=== PATIENT | male | born 1995 | race Two or more races ===

== ENCOUNTER 2021-04-24 03:39 | Emergency (ER) | payer MEDICARE, MEDICAID, SELFPAY ==
[2021-04-24 03:47] VITALS: BP 126/92; BP 150/67; PULSE 70; PULSE 97; RESP 16; TEMP 37.2; O2SAT 96; BMI 35.4
[2021-04-24 04:57] VITALS: BP 133/74; PULSE 88; RESP 18; O2SAT 96
[2021-04-24 05:09] LABS: Ethanol < 10 mg/dL
--- NOTE | 2021-04-24 05:15 | ED_ITS ---
HPI - General Adult General Chief complaint: General Medical Stated complaint: CRISIS,? PARANOIA/SCARED TO BE AT APARTMENT Time Seen by Provider: 04/24/21 04:19 Source: patient Mode of arrival: EMS History of Present Illness HPI narrative: This is a 25-year-old male who is brought in by EMS when he called due to being fearful of being in his apartment. He keeps repeating the fact that the apartment is his place and that he owns it and has owned of for 3 years. He states that when he gets to the front door he is the only person who has the keys. He denies being suicidal or homicidal, denies hearing voices. In addition, he denies thinking that people are watching him with Andrew's, but states that his apartment is his place but he is afraid to be there. Related Data Home Medications Medication Instructions Recorded Confirmed amitriptyline 1 tab PO BEDTIME PRN 04/24/21 04/24/21 risperidone 1 tab PO BEDTIME 04/24/21 04/24/21 Allergies Allergy/AdvReac Type Severity Reaction Status Date / Time No Known Allergies Allergy Verified 04/24/21 04:55 [No Known Allergies*] Review of Systems Review of Systems: Pertinent positives and negatives as stated in HPI 10 point review of system comes is otherwise negative PMFSH Past Medical History Source: nursing notes reviewed Social History Social History Alcohol intake: current Alcohol intake frequency: a few times a month Patient Tobacco Use Status: Former Tobacco user Use of substances other than those prescribed or required for medical reasons: Yes Substance Use Type: Marijuana Advance Directives: No Advance Directives Information Provided: No Physical Exam Vital Signs: Vital Signs: Last Vital Signs Temp 99.0 F 04/24/21 03:47 Pulse 88 04/24/21 04:57 Resp 18 04/24/21 04:57 BP 133/74 04/24/21 04:57 Pulse Ox 96 04/24/21 04:57 Body Mass Index 35.4 VITAL SIGNS: Reviewed. GENERAL: Well developed, well nourished, in no acute distress. HEAD: Normocephalic/atraumatic EYES: PERRLA, EOMI OROPHARYNX: no oral lesions noted, posterior pharynx clear LUNGS: Normal breath sounds. No adventitious sounds or accessory muscle use. SpO2<96> CARDIOVASCULAR: Regular rate and rhythm without noted murmurs ABDOMEN: Soft, non-tender, non-distended with bowel sounds. SKIN: Inspection of the skin reveals no rashes NEUROLOGIC: Alert and oriented x 4. Strength and sensation to light touch were grossly intact x 4. PSYCH: Anxious,?Psychosis Course Course Course Narrative: This is a 25-year-old male with history and clinical presentation suggestive of possible mild psychosis. He continues to have circular discussions by repeating this statement of who owns the place and who h as the keys and uses the word ?they? but then when asked about monitoring devices such as camera is a recording device is denies thinking that these are in his home. He denies being suicidal or homicidal and will pursue further evaluation by the care team. Signed out to Dr Go Reevaluation(s) Reevaluation #1: Patient placed in physician observation because the patient needed more time to be screen by the care team. At the time observation was started the patient's vital signs were stable, patient is alert and oriented, neuro: Nonfocal, CV RRR, lungs clear Time: 07:34 Medical Decision Making Lab Data Labs: Lab Results 04/24/21 04/24/21 Range/Units 04:38 05:00 Urine Opiates Screen Not Detected (Not Detect) Ur Barbiturates Screen Not Detected (Not Detect) Ur Phencyclidine Scrn Not Detected (Not Detect) Ur Amphetamines Screen Not Detected (Not Detect) U Benzodiazepines Scrn Not Detected (Not Detect) Urine Cocaine Screen Not Detected (Not Detect) U Marijuana (THC) Screen Not Detected (Not Detect) Ethyl Alcohol < 10 mg/dL Discharge Plan Discharge Prescriptions: No Action risperidone 2 mg tablet 1 tab PO BEDTIME RF: 0 amitriptyline 10 mg tablet 1 tab PO BEDTIME PRN (Reason: insomnia) RF: 0
--- NOTE | 2021-04-24 05:17 | PC.NURSE ---
Pt transferred from 22H to room 21. Pt aaox4, calm and cooperative and reports feeling unsafe in his apartment despite denying that anyone hurts him or threatens to hurt him. Pt denies SI/HI. It is unclear to this RN if pt is having AH as when this RN asks pt if he is hearing voices, he states Yeah, loud voices that are telling me things. When this RN asks what the voices are hearing, pt states No, I don't hear voices. Pt does not appear to be responding to internal stimuli at this time. This RN did N intake over the phone with Terri Roman, [facility]. Per Terri, pt may not be seen until next [facility] shift which begins at 0700 this AM and [facility] worker may not arrive to [facility] until ~[id number] this AM. Per Terri, this RN to contact her in one hour's time if no update about ETA has otherwise been provided by [facility]. Terri's number is [phone]
[2021-04-24 05:20] LABS: Amphetamine Screen Urine Not Detected (Not Detect); Barbiturates, Urine Not Detected (Not Detect); Benzodiazepines Screen Urine Not Detected (Not Detect); Cannabinoid Screen Urine Not Detected (Not Detect); Cocaine Screen Urine Not Detected (Not Detect); Opiate Screen Urine Not Detected (Not Detect); Phencyclidine Screen Urine Not Detected (Not Detect)
--- NOTE | 2021-04-24 07:14 | PC.NURSE ---
pt report taken from kenney kay pt here for disturbances at pts apartments, sts sounds like things are going on but vague when pressed further for details about what is disturbing him at home. pt denies si/hi/avh, bhn has been faxed and called per previous shift rn. tox screen negative. pt appears to be sitting upright in stretcher watching tv, no apparent distress. wctm.
[2021-04-24 08:09] VITALS: BP 141/81; PULSE 92; RESP 17; TEMP 36.8; O2SAT 95
[2021-04-24 08:10] LABS: COVID-19 Test Negative (Negative)
[2021-04-24 08:16] LABS: Amphetamine Screen Urine Not Detected (Not Detect); Barbiturates, Urine Not Detected (Not Detect); Benzodiazepines Screen Urine Not Detected (Not Detect); Cannabinoid Screen Urine Not Detected (Not Detect); Cocaine Screen Urine Not Detected (Not Detect); Opiate Screen Urine Not Detected (Not Detect); Phencyclidine Screen Urine Not Detected (Not Detect)
--- NOTE | 2021-04-24 08:52 | PC.NURSE ---
pt evaluated by care instrument repairer steam plant, pt asking pct if h can speak w the nurse eyeball to eyeball about his medications. when this rn in to speak w pt regarding medications, pt restating the reason he is here. pt allowed to vent feelings, when asked if he had an questions about his medications, pt denies any questions regarding medications, asking if he can buy a sandwich . pt given finger foods, tolerating po w/o issue. wctm.
--- NOTE | 2021-04-24 09:11 | MHC.CARE ---
CARE Team met with Pt to provide support. Pt reports being nervous regarding being in his apartment. Pt denied feeling suicidal or homicidal. CARE Team spoke with Pts cousin Judy ([phone]), she reported she has no safety concerns regarding Pt returning home. She reports Pt is diagnosed with schizophrenia and has support through [facility]. Due to Pts diagnosis periodically he feels his neighbors are talking about him which she believes what happened yesterday. Pt reports she does not feel he is in crisis or needs further intervention. CARE Team, Judy and Pt made a plan for Pt to discharge to his apartment, collect some of his belongings and stay with his aunt or uncle for the next few days for a break . CARE Team encouraged Pt and his cousin to discuss planned respites in the further if Pt felt he needed a break . Pt provided with [facility] Crisis number if needed.
== END 2021-04-24 09:06 | disposition home or self-care (01) ==
PROVIDERS: Emergency Medicine; Emergency Provider Student in an Organized Health Care Education/Training Program
DX: F41.9 Anxiety disorder, unspecified (principal); F20.9 Schizophrenia, unspecified; Z20.822 Contact with and (suspected) exposure to COVID-19; Z79.899 Other long term (current) drug therapy
CPT/HCPCS: 36415; 80307; 82077; 87635; 99284; 99285

== ENCOUNTER 2021-04-25 01:47 | Emergency (ER) | payer MEDICARE, MEDICAID, SELFPAY ==
--- NOTE | 2021-04-25 | ECG_ITS ---
Test Reason : CHEST PAIN Blood Pressure : / mmHG Vent. Rate : 083 BPM Atrial Rate : 083 BPM P-R Int : 160 ms QRS Dur : 084 ms QT Int : 386 ms P-R-T Axes : 026 036 029 degrees QTc Int : 453 ms Normal sinus rhythm Normal ECG When compared with ECG of 21-JAN-2017 22:34, No significant change was found Referred By: Generic ED Physician Electronically Signed By:Fernandez Jackson
[2021-04-25 02:02] VITALS: BP 122/69; PULSE 103; RESP 20; TEMP 36.8; O2SAT 95; BMI 35.2
[2021-04-25 03:59] VITALS: BP 130/79; PULSE 84; RESP 21; TEMP 37.1; O2SAT 97; BMI 30.4
--- NOTE | 2021-04-25 04:52 | ED.ASTHMA ---
HPI - Asthma General Chief Complaint: Upper Respiratory Symptoms Stated Complaint: chest pain Time Seen by Provider: 04/25/21 04:51 Source: patient Mode of arrival: ambulatory History of Present Illness HPI Narrative: 25-year-old male who presents with complaints of mild shortness of breath and states that he ran out of his albuterol inhaler. He denies any associated fever, chills, chest pain/palpitations, GI symptoms or symptoms. Related Data Home Medications Medication Instructions Recorded Confirmed amitriptyline 1 tab PO BEDTIME PRN 04/24/21 04/24/21 risperidone 1 tab PO BEDTIME 04/24/21 04/24/21 Allergies Allergy/AdvReac Type Severity Reaction Status Date / Time No Known Allergies Allergy Verified 04/24/21 04:55 [No Known Allergies*] Review of Systems Review of Systems: Pertinent positives and negatives as stated in HPI 10 point review of systems is otherwise negative. PMFSH Past Medical History Source: nursing notes reviewed Social History Social History Alcohol intake: current Alcohol intake frequency: a few times a month Patient Tobacco Use Status: Former Tobacco user Substance Use Type: Marijuana Advance Directives: No Physical Exam Vital Signs: Vital Signs: Last Vital Signs Temp 98.8 F 04/25/21 03:59 Pulse 77 04/25/21 05:33 Resp 13 04/25/21 05:33 BP 130/79 04/25/21 05:33 Pulse Ox 95 04/25/21 05:33 Body Mass Index 30.4 VITAL SIGNS: Reviewed. GENERAL: Well developed, well nourished, in no acute distress. HEAD: Normocephalic/atraumatic EYES: PERRLA, EOMI EARS: Ext canals without abnormality, TMs non-bulging and non-erythematous NOSE: Nares patent bilateral OROPHARYNX: no oral lesions noted, posterior pharynx clear LUNGS: No tachypnea, no increased work of breathing, very mild expiratory wheeze. SpO2<97> CARDIOVASCULAR: Regular rate and rhythm without noted murmurs ABDOMEN: Soft, non-tender, non-distended with bowel sounds. NEUROLOGIC: Alert and oriented x 4. Course Course Course Narrative: 25-year-old male with history and clinical presentation consistent asthma and minimal exacerbation. Patient will be treated with albuterol in emergency room. On re-evaluation patient is feeling much better after having had the albuterol treatment and no acute findings noted on EKG. He was discharged home in stable condition. MDM - Asthma ECG Data Attestation: I personally reviewed and interpreted this ECG as follows: Prior ECG tracings: available for review (01/21/2017) Interpretation: Normal sinus rhythm, HR-83, no evidence of acute ischemia, IL/QRS/QTC is within normal limits. Discharge Plan Discharge Clinical Impression: Asthma Patient Disposition: Home, Self-Care Instructions: Asthma (ED), Albuterol (By breathing) Additional Instructions: Follow-up with your primary care provider in the next 2-3 days for re-evaluation. Return to the ER for any acute worsening of symptoms. Prescriptions: No Action risperidone 2 mg tablet 1 tab PO BEDTIME RF: 0 amitriptyline 10 mg tablet 1 tab PO BEDTIME PRN (Reason: insomnia) RF: 0 Referrals: Physician,Unknown [Primary Care Provider] - 2 days Print Language: Armenian
[2021-04-25] MEDS: Albuterol Sulfate 90 MCG 8 GM INHALER 4 PUFF INHALE (05:03)
[2021-04-25 05:33] VITALS: BP 130/79; PULSE 77; RESP 13; O2SAT 95
[2021-04-25 06:00] VITALS: BP 124/82; PULSE 87; RESP 18; O2SAT 96
== END 2021-04-25 06:05 | disposition home or self-care (01) ==
PROVIDERS: Emergency Provider Student in an Organized Health Care Education/Training Program
DX: J45.909 Unspecified asthma, uncomplicated (principal)
CPT/HCPCS: 93005; 99284

== ENCOUNTER 2021-05-01 22:43 | Inpatient (IN) | payer MEDICARE, MEDICAID, SELFPAY ==
[2021-05-01 22:49] VITALS: BP 143/74; PULSE 131; RESP 20; TEMP 36.7; O2SAT 95; BMI 34.9
[2021-05-02 00:07] LABS: COVID-19 Test Negative (Negative)
[2021-05-02 00:13] LABS: Amphetamine Screen Urine Not Detected (Not Detect); Barbiturates, Urine Not Detected (Not Detect); Benzodiazepines Screen Urine Not Detected (Not Detect); Cannabinoid Screen Urine Not Detected (Not Detect); Cocaine Screen Urine Not Detected (Not Detect); Opiate Screen Urine Not Detected (Not Detect); Phencyclidine Screen Urine Not Detected (Not Detect)
[2021-05-02] MEDS: Ibuprofen 600 MG TABLET PO (01:15)
[2021-05-02] MEDS: risperiDONE 2 MG TABLET PO ×2 (01:15→22:34)
[2021-05-02] MEDS: Amitriptyline HCl 10 MG TABLET PO (01:15)
--- NOTE | 2021-05-02 01:20 | ED.PSYCH ---
HPI - Psych General Chief Complaint: Psychiatric Symptoms Stated Complaint: DEPRESSION, HEARING VOICES Time Seen by Provider: 05/01/21 23:44 Source: patient Mode of arrival: ambulatory Limitations: no limitations History of Present Illness HPI Narrative: patient is a 25-year-old male with an unclear past medical history, on amitriptyline an risperidone, complaining of hearing voices. Patient states this started approximately 3 months ago, he states he takes his medications every day each morning and each evening. He states he met a man of few months ago outside of his apartment and is this man's voice that he hears in his head, talking gibberish. he has not seen the man since that day. 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 He denies any thoughts of hurting himself or anyone else. He states he just wants the voices to stop. He has no physical complaints. Related Data Home Medications Medication Instructions Recorded Confirmed amitriptyline 1 tab PO BEDTIME PRN 04/24/21 05/02/21 risperidone 1 tab PO BEDTIME 04/24/21 05/02/21 Allergies Allergy/AdvReac Type Severity Reaction Status Date / Time No Known Allergies Allergy Verified 05/01/21 22:49 [No Known Allergies*] Review of Systems Review of Systems: Yes all other systems are reviewed and are negative [facility] Social History Social History Alcohol intake: current Alcohol intake frequency: a few times a month Patient Tobacco Use Status: Former Tobacco user Substance Use Type: Marijuana Advance Directives: No Advance Directives Information Provided: No Physical Exam Vital Signs: Vital Signs: Last Vital Signs Temp 98.0 F 05/01/21 22:49 Pulse 131 H 05/01/21 22:49 Resp 20 05/01/21 22:49 BP 143/74 H 05/01/21 22:49 Pulse Ox 95 05/01/21 22:49 Body Mass Index 34.9 Const: General: cooperative, healthy appearing, comfortable and no acute distress Nutritional Appearance: average body habitus Orientation/consciousness: patient oriented x3 Limitations: no limitations HENMT: Head: Yes normal to inspection, Yes No palpable skull fracture present, Yes normocephalic and Yes atraumatic Ears: hearing grossly normal bilaterally General nose exam: Normal external nose present Face and sinus: Yes normal facial exam Eyes: General: appearance normal, both eyes and all related structures Resp: Effort & Inspection: normal respiratory effort and able to speak in complete sentences Auscultation: clear to auscultation bilaterally Cardio: Rate: tachycardic Rhythm: regular rhythm Heart sounds: normal S1 and S2 GI: Inspection: Yes obesity Skin: General skin exam: no rashes or lesions noted Neuro: General: patient oriented x3 Psych: Appearance: well kempt Speech and movement: Normal speech and movement present Affect: Anxious affect present Attitude: cooperative Thought content: suicidality, no homicidality and Hallucination(s) present auditory Insight: Fair insight present (Psych) Judgement: Fair judgement present (Psych) Course Course Course Narrative: patient is a 25-year-old male with an unclear past medical history, on amitriptyline an risperidone, complaining of hearing voices. patient likely needs a medication adjustment, will put in [facility] referral to do so. patient has likely tachycardic and hypertensive. Will have vital signs monitored regularly, patient declined Ativan and said he was not feeling anxious. Reevaluation(s) Reevaluation #1: sign out to Dr Martin Time: 02:00 [facility] - Psych Lab Data Labs: Lab Results 05/01/21 05/01/21 Range/Units 23:37 23:38 Urine Opiates Screen Not Detected (Not Detect) Ur Barbiturates Screen Not Detected (Not Detect) Ur Phencyclidine Scrn Not Detected (Not Detect) Ur Amphetamines Screen Not Detected (Not Detect) U Benzodiazepines Scrn Not Detected (Not Detect) Urine Cocaine Screen Not Detected (Not Detect) U Marijuana (THC) Screen Not Detected (Not Detect) COVID-19 (TUSHAR) Negative (Negative) COVID-19 Clin Com See Note Discharge Plan Discharge Clinical Impression: Continuous auditory hallucinations Prescriptions: No Action risperidone 2 mg tablet 1 tab PO BEDTIME RF: 0 amitriptyline 10 mg tablet 1 tab PO BEDTIME PRN (Reason: insomnia) RF: 0
--- NOTE | 2021-05-02 01:55 | PC.NURSE ---
Patient compliant with HS PO medication, patient is mildly disoriented, N referral completed via smart-sheet, called and spoke with [facility] intake staff Terri confirmed receipt of referral, patient will bee seeing in the morning, will continue to monitor.
--- NOTE | 2021-05-02 06:13 | PC.NURSE ---
Patient was up most part of the night, was sleeping at one point of time but was woken up by unit's commotion, patient finally went to sleep at 0500, currently appears sleeping, no distress observed/reported, patient will be seeing by N in the morning, will continue to monitor.
[2021-05-02 07:47] VITALS: BP 129/78; PULSE 96; RESP 18; TEMP 36.2; O2SAT 97
--- NOTE | 2021-05-02 11:19 | PC.NURSE ---
Report received. Pt resting in bed at current, no complaints at this time, calm.
[2021-05-02 16:34] VITALS: BP 112/72; PULSE 88; RESP 18; TEMP 36.8; O2SAT 98
[2021-05-02 17:07] VITALS: BP 112/72; PULSE 88; RESP 18; TEMP 36.8; O2SAT 98
--- NOTE | 2021-05-02 17:43 | PC.NURSE ---
Nursing admission note: 25 year old BiLingual Ukrainian/Pashto speaking male, DX: Unspecified Schizophrenia spectrum and other psychotic disorder, Unspecified depressive disorder. Patient easily engaged, calm and cooperative with admission process. Patient signed conditional voluntary for admission. Patient presents with good eye contact, good attn to ADL's, showered shortly following admission. Affect is blunted. Thoughts are tangential and disorganized. Focused on neighbors that may do something . Patient called EMS yesterday evening due to AH. Reports he was hearing voices . Denies CAH. Reports feeling like something is going to happen , and believes his neighbors want to do something . Patient presents as paranoid, appears preoccupied. Denies SI/HI plan or intent. Speech is mumbled at times. Reports medication compliance, denies drug use, minimal alcohol use. Reports history of asthma, denies acute medical problems. NKDA. Patient has limited supports, however finds his aunt and cousin supportive. Patient with one previous in patient admission, suicide attempt in 2017 (per crisis eval). Patient oriented to unit, placed on unit safety checks, signed JANET. See crisis eval/nursing admission assessment for further details.
[2021-05-02 21:00] VITALS: BP 132/90; PULSE 97; TEMP 36.7; O2SAT 97
[2021-05-03] VITALS (8 sets, daily range): BP systolic 117–141; BP diastolic 65–90; PULSE 77–110; RESP 16–18; TEMP 36.5–36.8; O2SAT 97–99
[2021-05-03 07:58] LABS: Cholesterol 184 mg/dL; HDL Cholesterol 35 mg/dL; Triglycerides 680 mg/dL
[2021-05-03 08:10] LABS: Estimated Average Glucose 108 mg/dL; Hemoglobin A1c % 5.4 %
[2021-05-03 08:33] LABS: Vitamin B12 749 pg/mL (200-900)
[2021-05-03 08:38] LABS: Free T4 (Free Thyroxine) 1.02 ng/dL (0.71-1.85); Thyroid Stimulating Hormone 1.73 uIU/mL (0.32-4.0)
--- NOTE | 2021-05-03 11:01 | P.HPPS_ITS ---
HPI Chief Complaint: SI Sources of Information: patient interviewed, chart reviewed and crisis/core team assessment reviewed HPI Subjective Notes: Conditional Voluntary Narrative: Mr. Morrison is a 25 year-old male with hx of schizophrenia. He called 911 and was brought via EMS to [facility] ED due to increase anxious mood, AH telling him that neighbors are listening to his conversations and are after him. He reported something very bad is going to happen to me. He denied SI/HI. In the ED, his utox was negative. On the unit, Mr. Morrison is pleasant but guarded. He reports he want a better life. When asked what is preventing him from having a better life, pt states that he has always been a good person, a now feels neighbors are taking advantage of this. He reports that neighbors can hear his conversations, that auditory hallucinations have warned him that something bad will happen to him. He does note that his neighbors have never made any threats to his face. He reports feeling very anxious during the day. He reports fair sleep. He continues to report suicidal or homicidal ideation but paranoid delusions and hallucinations are torturing him. He reports at home taking medications as prescribed. He is currently on risperidone 2mg po qhs. Past Psychiatric History: Inpatient: 2017 M5 OP: [facility] Dr. Carmona Suicide attempts: he denies Past trials: risperidone, pt does not remember other meds he has been on. Medical Evaluation Reviewed: Yes PMF Family History: Both parents with substance use. Social History: Pt raised by extended family. Not close to bio mother or father. He was born in [place], in [place] for several years. He does have cousin and aunt close to him. Not working, on SSI as primary source of income. Substance History: Pt denies. Trauma History: Pt identifies not growing up with bio parents as traumatic. Diagnostics Vital Signs (24Hr): Vital Signs - 24 hr 05/02/21 16:34 05/02/21 17:07 05/02/21 21:00 Temperature 98.2 F 98.2 F 98.1 F Pulse Rate 88 88 97 Respiratory Rate 18 18 Blood Pressure 112/72 112/72 132/90 H Pulse Oximetry 98 98 97 05/03/21 00:00 05/03/21 06:00 05/03/21 08:00 Temperature 98.1 F 98.3 F Pulse Rate 94 110 H 88 Respiratory Rate 16 Blood Pressure 134/90 H 139/85 124/72 Pulse Oximetry 98 97 05/03/21 09:56 Temperature 98.3 F Pulse Rate 88 Respiratory Rate 16 Blood Pressure 124/72 Pulse Oximetry 97 Body Mass Index 34.9 Labs Labs: Laboratory Results - last 48 hr 05/01/21 05/01/21 05/03/21 23:37 23:38 07:18 Estimat Average Glucose 108 Hemoglobin A1c % 5.4 Triglycerides Cholesterol LDL Cholesterol, Calc HDL Cholesterol Vitamin B12 Folate TSH Free T4 Urine Opiates Screen Not Detected Ur Barbiturates Screen Not Detected Ur Phencyclidine Scrn Not Detected Ur Amphetamines Screen Not Detected U Benzodiazepines Scrn Not Detected Urine Cocaine Screen Not Detected U Marijuana (THC) Screen Not Detected COVID-19 (TUSHAR) Negative COVID-19 TMS Com See Note 05/03/21 05/03/21 07:18 07:18 Estimat Average Glucose Hemoglobin A1c % Triglycerides 680 Cholesterol 184 LDL Cholesterol, Calc TNP HDL Cholesterol 35 Vitamin B12 749 Folate 11.0 TSH 1.73 Free T4 1.02 Urine Opiates Screen Ur Barbiturates Screen Ur Phencyclidine Scrn Ur Amphetamines Screen U Benzodiazepines Scrn Urine Cocaine Screen U Marijuana (THC) Screen COVID-19 (TUSHAR) COVID-19 Clin Com Meds/Allergies Meds Home Medications Acetaminophen (Acetaminophen 325 Mg Tablet) 650 mg PO Q6H PRN PRN Reason: Headache/Pain Mild Scale (1-3) Al Hydroxide/Mg Hydroxide (Magnesium Hydrox/Alum Hydrox 30 Ml Oral.Susp) 30 ml PO Q6H PRN PRN Reason: Heartburn/Nausea Clonazepam (Clonazepam 0.5 Mg Tablet) 0.5 mg PO BID JOE Last Admin: 05/04/21 08:17 Dose: Not Given Documented by: Haloperidol (Haloperidol 5 Mg Tablet) 5 mg PO Q6H PRN PRN Reason: agitation/psychosis Hydroxyzine HCl (Hydroxyzine Hcl 25 Mg Tablet) 25 mg PO BEDTIME PRN PRN Reason: Anxiety Lorazepam (Lorazepam 0.5 Mg Tablet) 0.5 mg PO Q4H PRN PRN Reason: Anxiety Magnesium Hydroxide (Milk Of Magnesia 30 Ml Oral.Susp) 30 ml PO DAILY PRN PRN Reason: Constipation Nicotine Polacrilex (Nicotine Polacrilex 2 Mg Gum) 4 mg BUCCAL Q2H PRN PRN Reason: Nicotine Cravings Pharmacy Consult (Consult Rx Perform Med Rec) 1 each MISCELLANE ONCE PRN PRN Reason: Consult order Risperidone (Risperidone 2 Mg Tablet) 2 mg PO BID [facility] Last Admin: 05/04/21 08:17 Dose: 2 mg Documented by: Trazodone HCl (Trazodone Hcl 50 Mg Tablet) 50 mg PO BEDTIME PRN PRN Reason: Insomnia Allergies Allergies Allergy/AdvReac Type Severity Reaction Status Date / Time No Known Allergies Allergy Verified 05/01/21 22:49 [No Known Allergies*] Mental Status Exam Mental Status Exam Narrative: Appearance: casually groomed, fair hygiene, in NAD Behavior: limited eye contact, cooperative but suspicious and guarded Psychomotor: no agitation or retardation noted Speech: clear, normal rate/rhythm/volume, spontaneous TP: tangential TC: paranoid towards neighbors, staff in unit, suspicious about medications Mood: anxious Affect:congruent, constricted in range. SI:denies HI:denies AH/VH:AH telling him terrible things will happen to him, denies CAH Delusions:paranoid delusions. Insight/judgment:poor x 2. Memory/cog: alert, oriented x 3. Assessment & Plan Assessment & Plan (1) Schizophrenia, paranoid, chronic with acute exacerbation: Status: Acute Code(s): F20.0 - Paranoid schizophrenia Assessment and Plan: 1. Increase risperidone to 2mg po BID 2. Obtain collateral 3. Coordinate aftercare planning Reason for continued inpatient stay Substantial Risk for: inability to function
[2021-05-03] MEDS: HaloperidoL 5 MG TABLET PO (14:28)
[2021-05-03] MEDS: risperiDONE 2 MG TABLET PO (22:50)
[2021-05-04] MEDS: risperiDONE 2 MG TABLET PO ×2 (08:17→22:22)
[2021-05-04 08:28] VITALS: BP 139/99; PULSE 110; RESP 18; TEMP 36.8; O2SAT 97
--- NOTE | 2021-05-04 15:45 | P.PNPSI_ITS ---
Subjective Subjective Date of Service: 05/04/21 Reason For Visit: SI Subjective Notes: Conditional Voluntary Interim History: Pt continues to endorse AH, telling him that neighbors will hurt him. He is somewhat suspicious at staff in unit and about medications. he d enies SI/HI. He reports sleeping and eating well. He reports feeling tired with medications, but only had increased dose once, so encourage to continue taking it. No behavioral concerns. Medication Compliance: Yes Side effects from medications: No Attending Groups: Intermittent Review of Systems Review of Systems Yes all other systems are reviewed and are negative Cardiovascular: Denies chest pain, Denies Epigastric Pain, Denies rapid heart rate, Denies lightheadedness and Denies dyspnea Respiratory: Denies dyspnea Gastrointestinal: Denies constipation, Denies GI cramping and Denies diarrhea Mental Status Exam Mental Status Exam Narrative: Appearance: casually groomed, fair hygiene, in NAD Behavior: limited eye contact, cooperative but suspicious and guarded Psychomotor: no agitation or retardation noted Speech: clear, normal rate/rhythm/volume, spontaneous TP: tangential TC: paranoid towards neighbors, staff in unit, suspicious about medications Mood: anxious Affect:congruent, constricted in range. SI:denies HI:denies AH/VH:AH telling him terrible things will happen to him, denies CAH Delusions:paranoid delusions. Insight/judgment:poor x 2. Memory/cog: alert, oriented x 3. Diagnostics Vital Signs (24Hr): Vital Signs - 24 hr 05/03/21 16:00 05/03/21 20:48 05/03/21 23:02 Temperature 97.7 F 98 F Pulse Rate 97 88 77 Respiratory Rate 18 Blood Pressure 117/67 141/65 H 127/74 Pulse Oximetry 97 99 05/04/21 08:28 Temperature 98.2 F Pulse Rate 110 H Respiratory Rate 18 Blood Pressure 139/99 H Pulse Oximetry 97 Body Mass Index 34.9 Labs Labs: Laboratory Results - last 48 hr 05/03/21 05/03/21 05/03/21 07:18 07:18 07:18 Estimat Average Glucose 108 Hemoglobin A1c % 5.4 Triglycerides 680 Cholesterol 184 LDL Cholesterol, Calc TNP HDL Cholesterol 35 Vitamin B12 749 Folate 11.0 TSH 1.73 Free T4 1.02 Medications Medications Current Medications Generic Name Dose Route Start Last Admin Trade Name Freq PRN Reason Stop Dose Admin Acetaminophen 650 mg 05/02/21 13:57 Acetaminophen 325 Mg Tablet PO Q6H PRN Headache/Pain Mild Scale (1-3) Al Hydroxide/Mg Hydroxide 30 ml 05/02/21 13:57 Magnesium Hydrox/Alum Hydrox 30 Ml Oral.Susp PO Q6H PRN Heartburn/Nausea Clonazepam 0.5 mg 05/03/21 21:00 05/04/21 08:17 Clonazepam 0.5 Mg Tablet PO Not Given BID JOE Haloperidol 5 mg 05/03/21 17:03 Haloperidol 5 Mg Tablet PO Q6H PRN agitation/psychosis Hydroxyzine HCl 25 mg 05/02/21 13:57 Hydroxyzine Hcl 25 Mg Tablet PO BEDTIME PRN Anxiety Lorazepam 0.5 mg 05/03/21 17:04 Lorazepam 0.5 Mg Tablet PO Q4H PRN Anxiety Magnesium Hydroxide 30 ml 05/02/21 13:57 Milk Of Magnesia 30 Ml Oral.Susp PO DAILY PRN Constipation Nicotine Polacrilex 4 mg 05/02/21 13:57 Nicotine Polacrilex 2 Mg Gum BUCCAL Q2H PRN Nicotine Cravings Pharmacy Consult 1 each 05/02/21 00:46 Consult Rx Perform Med Rec MISCELLANE ONCE PRN Consult order Risperidone 2 mg 05/03/21 21:00 05/04/21 08:17 Risperidone 2 Mg Tablet PO 2 mg BID JOE Administration Trazodone HCl 50 mg 05/02/21 13:57 Trazodone Hcl 50 Mg Tablet PO BEDTIME PRN Insomnia Allergies Allergies Allergy/AdvReac Type Severity Reaction Status Date / Time No Known Allergies Allergy Verified 05/01/21 22:49 [No Known Allergies*] Assessment & Plan Assessment & Plan (1) Schizophrenia, paranoid, chronic with acute exacerbation: Status: Acute Code(s): F20.0 - Paranoid schizophrenia Assessment and Plan: 1. continue risperidone to 2mg po BID 2. Obtain collateral 3. Coordinate aftercare planning Greater than 50% of the session was spent on counseling and/or coordination of care Reason for contiued inpatient stay Substantial Risk for: inability to function
[2021-05-04 21:38] VITALS: BP 140/79; PULSE 106; TEMP 36.6; O2SAT 97
[2021-05-04] MEDS: hydrOXYzine HCL 25 MG TABLET PO (22:22)
[2021-05-05] MEDS: risperiDONE 2 MG TABLET PO ×2 (10:23→20:57)
[2021-05-05 10:33] VITALS: BP 130/84; PULSE 96; RESP 18; TEMP 36.9; O2SAT 98
[2021-05-05 12:00] VITALS: RESP 18
--- NOTE | 2021-05-05 14:48 | HO.PSYCHPN ---
Subjective Subjective Date of Service: 05/05/21 Reason For Visit: SI Interim History: pt encountered in his room late morning, breakfast uneaten. MD introduced himself. pt stated he had no concerns or requests for MD at that time, citing he was just waking up and had not had breakfast yet. MD encouraged pt to seek out community health nurse staff and let them know if MD could do anything for him today. per staff, pt remains paranoid r.e. his medications yet has remained medication compliant. Mental Status Exam Mental Status Exam Narrative: Appearance: casually groomed, fair hygiene, in NAD Behavior: limited eye contact, cooperative but suspicious and guarded Psychomotor: no agitation or retardation noted Speech: clear, normal rate/rhythm/volume, spontaneous TP: unclear TC: paucity Mood: not assessed Affect:congruent, constricted in range. SI: none voiced HI: none voiced AH/VH: none voiced Diagnostics Vital Signs (24Hr): Vital Signs - 24 hr 05/04/21 21:38 05/05/21 10:33 05/05/21 12:00 Temperature 97.9 F 98.4 F Pulse Rate 106 H 96 Respiratory Rate 18 18 Blood Pressure 140/79 H 130/84 Pulse Oximetry 97 98 Body Mass Index 34.9 Medications Medications Current Medications Generic Name Dose Route Start Last Admin Trade Name Freq PRN Reason Stop Dose Admin Acetaminophen 650 mg 05/02/21 13:57 Acetaminophen 325 Mg Tablet PO Q6H PRN Headache/Pain Mild Scale (1-3) Al Hydroxide/Mg Hydroxide 30 ml 05/02/21 13:57 Magnesium Hydrox/Alum Hydrox 30 Ml Oral.Susp PO Q6H PRN Heartburn/Nausea Haloperidol 5 mg 05/03/21 17:03 Haloperidol 5 Mg Tablet PO Q6H PRN agitation/psychosis Hydroxyzine HCl 25 mg 05/02/21 13:57 05/04/21 22:22 Hydroxyzine Hcl 25 Mg Tablet PO 25 mg BEDTIME PRN Administration Anxiety Lorazepam 0.5 mg 05/03/21 17:04 Lorazepam 0.5 Mg Tablet PO Q4H PRN Anxiety Magnesium Hydroxide 30 ml 05/02/21 13:57 Milk Of Magnesia 30 Ml Oral.Susp PO DAILY PRN Constipation Nicotine Polacrilex 4 mg 05/02/21 13:57 Nicotine Polacrilex 2 Mg Gum BUCCAL Q2H PRN Nicotine Cravings Pharmacy Consult 1 each 05/02/21 00:46 Consult Rx Perform Med Rec MISCELLANE ONCE PRN Consult order Risperidone 2 mg 05/03/21 21:00 05/05/21 10:23 Risperidone 2 Mg Tablet PO 2 mg BID JOE Administration Trazodone HCl 50 mg 05/02/21 13:57 Trazodone Hcl 50 Mg Tablet PO BEDTIME PRN Insomnia Allergies Allergies Allergy/AdvReac Type Severity Reaction Status Date / Time No Known Allergies Allergy Verified 05/01/21 22:49 [No Known Allergies*] Assessment & Plan Assessment & Plan (1) Schizophrenia, paranoid, chronic with acute exacerbation: Status: Acute Code(s): F20.0 - Paranoid schizophrenia Assessment and Plan: 1. continue risperidone 2mg po BID 2. Obtain collateral 3. Coordinate aftercare planning Greater than 50% of the session was spent on counseling and/or coordination of care Reason for contiued inpatient stay Substantial Risk for: inability to function and rapid decompensation
[2021-05-05 17:08] VITALS: RESP 17
[2021-05-05 19:58] VITALS: BP 122/71; PULSE 121; RESP 20; TEMP 37; O2SAT 95
[2021-05-05] MEDS: hydrOXYzine HCL 25 MG TABLET PO (20:57)
[2021-05-06 06:00] VITALS: BP 127/71; PULSE 100; RESP 16; TEMP 36.2; O2SAT 99
[2021-05-06] MEDS: risperiDONE 2 MG TABLET PO ×2 (07:56→22:05)
[2021-05-06 08:00] VITALS: BP 127/71; PULSE 100; RESP 16; TEMP 36.2; O2SAT 99
[2021-05-06] MEDS: Acetaminophen 325 MG TABLET 650 MG PO (09:21)
--- NOTE | 2021-05-06 14:12 | HO.PSYCHPN ---
Subjective Subjective Date of Service: 05/06/21 Reason For Visit: SI Interim History: pt found sleeping in his room late morning. appeared sedated, had a hard time maintaining wakefulness. had no complaints or requests other than feeling quite sedated, which he attributes to medications. informed pt he would review medications. per staff, slept through the morning yesterday, visible in the milieu after. wants to see a dentist and to pay his rent. taking medications. remains paranoid around taking them however, seeming to doubt that what the nurses are giving him is what they say it is. Mental Status Exam Mental Status Exam Narrative: Appearance: casually groomed, fair hygiene, in NAD Behavior: eyes closed, cooperative Psychomotor: no agitation or retardation noted Speech: muffled, normal rate/rhythm. soft. TP: unclear TC: paucity Mood: not assessed Affect:congruent, constricted in range. SI: none voiced HI: none voiced AH/VH: none voiced Diagnostics Vital Signs (24Hr): Vital Signs - 24 hr 05/05/21 17:08 05/05/21 19:58 05/06/21 06:00 Temperature 98.6 F 97.2 F Pulse Rate 121 H 100 Respiratory Rate 17 20 16 Blood Pressure 122/71 127/71 Pulse Oximetry 95 99 05/06/21 08:00 Temperature 97.2 F Pulse Rate 100 Respiratory Rate 16 Blood Pressure 127/71 Pulse Oximetry 99 Body Mass Index 34.9 Medications Medications Current Medications Generic Name Dose Route Start Last Admin Trade Name Freq PRN Reason Stop Dose Admin Acetaminophen 650 mg 05/02/21 13:57 05/06/21 09:21 Acetaminophen 325 Mg Tablet PO 650 mg Q6H PRN Administration Headache/Pain Mild Scale (1-3) Al Hydroxide/Mg Hydroxide 30 ml 05/02/21 13:57 Magnesium Hydrox/Alum Hydrox 30 Ml Oral.Susp PO Q6H PRN Heartburn/Nausea Haloperidol 5 mg 05/03/21 17:03 Haloperidol 5 Mg Tablet PO Q6H PRN agitation/psychosis Hydroxyzine HCl 25 mg 05/02/21 13:57 05/05/21 20:57 Hydroxyzine Hcl 25 Mg Tablet PO 25 mg BEDTIME PRN Administration Anxiety Lorazepam 0.5 mg 05/03/21 17:04 Lorazepam 0.5 Mg Tablet PO Q4H PRN Anxiety Magnesium Hydroxide 30 ml 05/02/21 13:57 Milk Of Magnesia 30 Ml Oral.Susp PO DAILY PRN Constipation Nicotine Polacrilex 4 mg 05/02/21 13:57 Nicotine Polacrilex 2 Mg Gum BUCCAL Q2H PRN Nicotine Cravings Pharmacy Consult 1 each 05/02/21 00:46 Consult Rx Perform Med Rec MISCELLANE ONCE PRN Consult order Risperidone 2 mg 05/03/21 21:00 05/06/21 07:56 Risperidone 2 Mg Tablet PO 2 mg BID JOE Administration Trazodone HCl 50 mg 05/02/21 13:57 Trazodone Hcl 50 Mg Tablet PO BEDTIME PRN Insomnia Allergies Allergies Allergy/AdvReac Type Severity Reaction Status Date / Time No Known Allergies Allergy Verified 05/01/21 22:49 [No Known Allergies*] Assessment & Plan Assessment & Plan (1) Schizophrenia, paranoid, chronic with acute exacerbation: Status: Acute Code(s): F20.0 - Paranoid schizophrenia Assessment and Plan: 1. change risperidone 2mg po BID to 4 mg QHS due to excessive a.m. sedation. 2. Obtain collateral 3. Coordinate aftercare planning Greater than 50% of the session was spent on counseling and/or coordination of care Reason for contiued inpatient stay Substantial Risk for: inability to function and rapid decompensation
[2021-05-06 18:00] VITALS: BP 128/71; PULSE 103; RESP 18; TEMP 36.2; O2SAT 97
[2021-05-07] MEDS: hydrOXYzine HCL 25 MG TABLET PO ×2 (00:19→21:50)
[2021-05-07 06:00] VITALS: BP 148/72; PULSE 106; RESP 22; TEMP 36.4; O2SAT 96
[2021-05-07] MEDS: HaloperidoL 5 MG TABLET PO (12:31)
--- NOTE | 2021-05-07 16:12 | HO.PSYCHPN ---
Subjective Subjective Date of Service: 05/07/21 Reason For Visit: SI Interim History: pt found resting in his room early afternoon. alert, awake. c/o feeling like his mind is stuck. MD informs him we will change his risperidone from 2 BID to 1 QAM and 3 QHS to help his mind in the morning but not sedate him. he agrees to the suggestion. he has no other complaints or requests. per staff, pt intermittently visible in the milieu. no complaints or requests. Mental Status Exam Mental Status Exam Narrative: Appearance: casually groomed, fair hygiene, in NAD Behavior: general PMR, cooperative Speech: clearer than yesterday yet heavily accented. normal rate/rhythm. soft. TP: generally linear TC: paucity Mood: not assessed Affect: congruent, constricted in range. SI: none voiced HI: none voiced AH/VH: none voiced Diagnostics Vital Signs (24Hr): Vital Signs - 24 hr 05/06/21 18:00 05/07/21 06:00 Temperature 97.1 F 97.6 F Pulse Rate 103 H 106 H Respiratory Rate 18 22 H Blood Pressure 128/71 148/72 H Pulse Oximetry 97 96 Body Mass Index 34.9 Medications Medications Current Medications Generic Name Dose Route Start Last Admin Trade Name Freq PRN Reason Stop Dose Admin Acetaminophen 650 mg 05/02/21 13:57 05/06/21 09:21 Acetaminophen 325 Mg Tablet PO 650 mg Q6H PRN Administration Headache/Pain Mild Scale (1-3) Al Hydroxide/Mg Hydroxide 30 ml 05/02/21 13:57 Magnesium Hydrox/Alum Hydrox 30 Ml Oral.Susp PO Q6H PRN Heartburn/Nausea Haloperidol 5 mg 05/03/21 17:03 05/07/21 12:31 Haloperidol 5 Mg Tablet PO 5 mg Q6H PRN Administration agitation/psychosis Hydroxyzine HCl 25 mg 05/02/21 13:57 05/07/21 00:19 Hydroxyzine Hcl 25 Mg Tablet PO 25 mg BEDTIME PRN Administration Anxiety Lorazepam 0.5 mg 05/03/21 17:04 Lorazepam 0.5 Mg Tablet PO Q4H PRN Anxiety Magnesium Hydroxide 30 ml 05/02/21 13:57 Milk Of Magnesia 30 Ml Oral.Susp PO DAILY PRN Constipation Nicotine Polacrilex 4 mg 05/02/21 13:57 Nicotine Polacrilex 2 Mg Gum BUCCAL Q2H PRN Nicotine Cravings Pharmacy Consult 1 each 05/02/21 00:46 Consult Rx Perform Med Rec MISCELLANE ONCE PRN Consult order Risperidone 3 mg 05/07/21 21:00 Risperidone 3 Mg Tablet PO BEDTIME JOE Risperidone 1 mg 05/08/21 09:00 Risperidone 1 Mg Tablet PO DAILY JOE Trazodone HCl 50 mg 05/02/21 13:57 Trazodone Hcl 50 Mg Tablet PO BEDTIME PRN Insomnia Allergies Allergies Allergy/AdvReac Type Severity Reaction Status Date / Time No Known Allergies Allergy Verified 05/01/21 22:49 [No Known Allergies*] Assessment & Plan Assessment & Plan (1) Schizophrenia, paranoid, chronic with acute exacerbation: Status: Acute Code(s): F20.0 - Paranoid schizophrenia Assessment and Plan: 1. change risperidone 2mg po BID to 1 mg QAM and 3 mg QHS due to excessive a.m. sedation. 2. Obtain collateral 3. Coordinate aftercare planning Greater than 50% of the session was spent on counseling and/or coordination of care Reason for contiued inpatient stay Substantial Risk for: inability to function and rapid decompensation
[2021-05-07 18:00] VITALS: BP 134/71; PULSE 116; RESP 20; TEMP 36.7; O2SAT 95
[2021-05-07] MEDS: risperiDONE 3 MG TABLET PO (21:49)
[2021-05-08 06:00] VITALS: BP 118/59; PULSE 84; RESP 16; TEMP 36.8; O2SAT 95
[2021-05-08] MEDS: risperiDONE 1 MG TABLET PO (09:22)
[2021-05-08] MEDS: Magnesium Hydrox/Alum Hydrox 30 ML ORAL.SUSP PO (10:17)
--- NOTE | 2021-05-08 13:59 | HO.PSYCHPN ---
Subjective Subjective Date of Service: 05/08/21 Reason For Visit: SI Interim History: pt found sleeping in his room early afternoon, not rousable to loud voice. MD assessed that with such a level of sleep waking him would be unhelpful therapeutically. per staff, pt c/o head being stuck yesterday. received haldol 5 PRN to good effect. social, visible eves, paid bill over the phone. vomited x1 after breakfast today, reason unclear. Mental Status Exam Mental Status Exam Narrative: Appearance: casually groomed, fair hygiene, in NAD Behavior: asleep Speech: not observed TP: not observed TC: not observed Mood: not observed Affect: calm SI: not observed HI: not observed AH/VH: not observed Diagnostics Vital Signs (24Hr): Vital Signs - 24 hr 05/07/21 18:00 05/08/21 06:00 Temperature 98.1 F 98.3 F Pulse Rate 116 H 84 Respiratory Rate 20 16 Blood Pressure 134/71 118/59 L Pulse Oximetry 95 95 Body Mass Index 34.9 Medications Medications Current Medications Generic Name Dose Route Start Last Admin Trade Name Freq PRN Reason Stop Dose Admin Acetaminophen 650 mg 05/02/21 13:57 05/06/21 09:21 Acetaminophen 325 Mg Tablet PO 650 mg Q6H PRN Administration Headache/Pain Mild Scale (1-3) Al Hydroxide/Mg Hydroxide 30 ml 05/02/21 13:57 05/08/21 10:17 Magnesium Hydrox/Alum Hydrox 30 Ml Oral.Susp PO 30 ml Q6H PRN Administration Heartburn/Nausea Haloperidol 5 mg 05/03/21 17:03 05/07/21 12:31 Haloperidol 5 Mg Tablet PO 5 mg Q6H PRN Administration agitation/psychosis Hydroxyzine HCl 25 mg 05/02/21 13:57 05/07/21 21:50 Hydroxyzine Hcl 25 Mg Tablet PO 25 mg BEDTIME PRN Administration Anxiety Lorazepam 0.5 mg 05/03/21 17:04 Lorazepam 0.5 Mg Tablet PO Q4H PRN Anxiety Magnesium Hydroxide 30 ml 05/02/21 13:57 Milk Of Magnesia 30 Ml Oral.Susp PO DAILY PRN Constipation Nicotine Polacrilex 4 mg 05/02/21 13:57 Nicotine Polacrilex 2 Mg Gum BUCCAL Q2H PRN Nicotine Cravings Pharmacy Consult 1 each 05/02/21 00:46 Consult Rx Perform Med Rec MISCELLANE ONCE PRN Consult order Risperidone 3 mg 05/07/21 21:00 05/07/21 21:49 Risperidone 3 Mg Tablet PO 3 mg BEDTIME JOE Administration Risperidone 1 mg 05/08/21 09:00 05/08/21 09:22 Risperidone 1 Mg Tablet PO 1 mg DAILY JOE Administration Trazodone HCl 50 mg 05/02/21 13:57 Trazodone Hcl 50 Mg Tablet PO BEDTIME PRN Insomnia Allergies Allergies Allergy/AdvReac Type Severity Reaction Status Date / Time No Known Allergies Allergy Verified 05/01/21 22:49 [No Known Allergies*] Assessment & Plan Assessment & Plan (1) Schizophrenia, paranoid, chronic with acute exacerbation: Status: Acute Code(s): F20.0 - Paranoid schizophrenia Assessment and Plan: 1. changed risperidone 2mg po BID to 1 mg QAM and 3 mg QHS due to excessive a.m. sedation. 2. Obtain collateral 3. Coordinate aftercare planning Greater than 50% of the session was spent on counseling and/or coordination of care Reason for contiued inpatient stay Substantial Risk for: inability to function and rapid decompensation
[2021-05-08 20:48] VITALS: BP 141/88; PULSE 114; TEMP 36.7
[2021-05-08] MEDS: risperiDONE 3 MG TABLET PO (22:00)
[2021-05-09] MEDS: hydrOXYzine HCL 25 MG TABLET PO ×2 (00:22→21:59)
[2021-05-09 07:59] VITALS: BP 129/79; PULSE 100; RESP 18; TEMP 36.7; O2SAT 96
[2021-05-09] MEDS: risperiDONE 1 MG TABLET PO (08:18)
--- NOTE | 2021-05-09 14:36 | HO.PSYCHPN ---
Subjective Subjective Date of Service: 05/11/21 Reason For Visit: SI Interim History: Pt appears restless, continues to report not anxious and thinking that something very bad will happen to his family. He is very suspicious about medications and declines to increase dose or try different antipsychotic. He had difficulty falling asleep but again declines medications for sleep. He denies SI/HI. He reports he wants to go home soon. He is mostly in room, minimally interactive with peers or staff. Review of Systems Review of Systems Yes all other systems are reviewed and are negative Cardiovascular: Denies chest pain, Denies Epigastric Pain, Denies rapid heart rate, Denies lightheadedness and Denies dyspnea Respiratory: Denies dyspnea Gastrointestinal: Denies constipation, Denies GI cramping and Denies diarrhea Diagnostics Vital Signs (24Hr): Vital Signs - 24 hr 05/10/21 14:56 05/10/21 18:00 Temperature 97.8 F 98.5 F Pulse Rate 120 H 104 H Respiratory Rate 18 18 Blood Pressure 141/84 H 133/78 Pulse Oximetry 97 Body Mass Index 34.9 Medications Medications Current Medications Generic Name Dose Route Start Last Admin Trade Name Freq PRN Reason Stop Dose Admin Acetaminophen 650 mg 05/02/21 13:57 05/10/21 14:44 Acetaminophen 325 Mg Tablet PO 650 mg Q6H PRN Administration Headache/Pain Mild Scale (1-3) Al Hydroxide/Mg Hydroxide 30 ml 05/02/21 13:57 05/08/21 10:17 Magnesium Hydrox/Alum Hydrox 30 Ml Oral.Susp PO 30 ml Q6H PRN Administration Heartburn/Nausea Haloperidol 5 mg 05/03/21 17:03 05/07/21 12:31 Haloperidol 5 Mg Tablet PO 5 mg Q6H PRN Administration agitation/psychosis Hydroxyzine HCl 25 mg 05/02/21 13:57 05/10/21 20:19 Hydroxyzine Hcl 25 Mg Tablet PO 25 mg BEDTIME PRN Administration Anxiety Magnesium Hydroxide 30 ml 05/02/21 13:57 Milk Of Magnesia 30 Ml Oral.Susp PO DAILY PRN Constipation Nicotine Polacrilex 4 mg 05/02/21 13:57 Nicotine Polacrilex 2 Mg Gum BUCCAL Q2H PRN Nicotine Cravings Pharmacy Consult 1 each 05/02/21 00:46 Consult Rx Perform Med Rec MISCELLANE ONCE PRN Consult order Risperidone 3 mg 05/07/21 21:00 05/10/21 20:19 Risperidone 3 Mg Tablet PO 3 mg BEDTIME JOE Administration Risperidone 1 mg 05/08/21 09:00 05/11/21 08:53 Risperidone 1 Mg Tablet PO 1 mg DAILY JOE Administration Trazodone HCl 50 mg 05/02/21 13:57 Trazodone Hcl 50 Mg Tablet PO BEDTIME PRN Insomnia Allergies Allergies Allergy/AdvReac Type Severity Reaction Status Date / Time No Known Allergies Allergy Verified 05/01/21 22:49 [No Known Allergies*] Assessment & Plan Assessment & Plan (1) Schizophrenia, paranoid, chronic with acute exacerbation: Status: Acute Code(s): F20.0 - Paranoid schizophrenia Assessment and Plan: 1. changed risperidone 2mg po BID to 1 mg QAM and 3 mg QHS due to excessive a.m. sedation. 2. Obtain collateral 3. Coordinate aftercare planning Greater than 50% of the session was spent on counseling and/or coordination of care Reason for contiued inpatient stay Substantial Risk for: inability to function
[2021-05-09 18:00] VITALS: BP 126/84; PULSE 111; RESP 18; TEMP 36.7; O2SAT 96
[2021-05-09] MEDS: risperiDONE 3 MG TABLET PO (20:25)
[2021-05-10] MEDS: risperiDONE 1 MG TABLET PO (08:04)
--- NOTE | 2021-05-10 14:38 | HO.PSYCHPN ---
Subjective Subjective Date of Service: 05/11/21 Reason For Visit: SI Interim History: Pt continues to present as restless, continues to report not anxious and thinking that something very bad will happen to his family. He is very suspicious about medications and declines to increase dose or try different antipsychotic. He had difficulty falling asleep but again declines medications for sleep. He denies SI/HI. He reports he wants to go home soon. He is mostly in room, minimally interactive with peers or staff. Review of Systems Review of Systems Yes all other systems are reviewed and are negative Cardiovascular: Denies chest pain, Denies Epigastric Pain, Denies rapid heart rate, Denies lightheadedness and Denies dyspnea Respiratory: Denies dyspnea Gastrointestinal: Denies constipation, Denies GI cramping and Denies diarrhea Mental Status Exam Mental Status Exam Narrative: Appearance: casually groomed, fair hygiene, in NAD Behavior: asleep Speech: not observed TP: not observed TC: not observed Mood: not observed Affect: calm SI: not observed HI: not observed AH/VH: not observed Diagnostics Vital Signs (24Hr): Vital Signs - 24 hr 05/10/21 14:56 05/10/21 18:00 Temperature 97.8 F 98.5 F Pulse Rate 120 H 104 H Respiratory Rate 18 18 Blood Pressure 141/84 H 133/78 Pulse Oximetry 97 Body Mass Index 34.9 Medications Medications Current Medications Generic Name Dose Route Start Last Admin Trade Name Freq PRN Reason Stop Dose Admin Acetaminophen 650 mg 05/02/21 13:57 05/10/21 14:44 Acetaminophen 325 Mg Tablet PO 650 mg Q6H PRN Administration Headache/Pain Mild Scale (1-3) Al Hydroxide/Mg Hydroxide 30 ml 05/02/21 13:57 05/08/21 10:17 Magnesium Hydrox/Alum Hydrox 30 Ml Oral.Susp PO 30 ml Q6H PRN Administration Heartburn/Nausea Haloperidol 5 mg 05/03/21 17:03 05/07/21 12:31 Haloperidol 5 Mg Tablet PO 5 mg Q6H PRN Administration agitation/psychosis Hydroxyzine HCl 25 mg 05/02/21 13:57 05/10/21 20:19 Hydroxyzine Hcl 25 Mg Tablet PO 25 mg BEDTIME PRN Administration Anxiety Magnesium Hydroxide 30 ml 05/02/21 13:57 Milk Of Magnesia 30 Ml Oral.Susp PO DAILY PRN Constipation Nicotine Polacrilex 4 mg 05/02/21 13:57 Nicotine Polacrilex 2 Mg Gum BUCCAL Q2H PRN Nicotine Cravings Pharmacy Consult 1 each 05/02/21 00:46 Consult Rx Perform Med Rec MISCELLANE ONCE PRN Consult order Risperidone 3 mg 05/07/21 21:00 05/10/21 20:19 Risperidone 3 Mg Tablet PO 3 mg BEDTIME JOE Administration Risperidone 1 mg 05/08/21 09:00 05/11/21 08:53 Risperidone 1 Mg Tablet PO 1 mg DAILY JOE Administration Trazodone HCl 50 mg 05/02/21 13:57 Trazodone Hcl 50 Mg Tablet PO BEDTIME PRN Insomnia Allergies Allergies Allergy/AdvReac Type Severity Reaction Status Date / Time No Known Allergies Allergy Verified 05/01/21 22:49 [No Known Allergies*] Assessment & Plan Assessment & Plan (1) Schizophrenia, paranoid, chronic with acute exacerbation: Status: Acute Code(s): F20.0 - Paranoid schizophrenia Assessment and Plan: 1. changed risperidone 2mg po BID to 1 mg QAM and 3 mg QHS due to excessive a.m. sedation. 2. Obtain collateral 3. Coordinate aftercare planning Greater than 50% of the session was spent on counseling and/or coordination of care Reason for contiued inpatient stay Substantial Risk for: inability to function
[2021-05-10] MEDS: Acetaminophen 325 MG TABLET 650 MG PO (14:44)
[2021-05-10 14:56] VITALS: BP 141/84; PULSE 120; RESP 18; TEMP 36.6
[2021-05-10 18:00] VITALS: BP 133/78; PULSE 104; RESP 18; TEMP 36.9; O2SAT 97
[2021-05-10] MEDS: hydrOXYzine HCL 25 MG TABLET PO (20:19)
[2021-05-10] MEDS: risperiDONE 3 MG TABLET PO (20:19)
[2021-05-11] MEDS: risperiDONE 1 MG TABLET PO (08:53)
--- NOTE | 2021-05-11 14:39 | HO.PSYCHPN ---
Subjective Subjective Date of Service: 05/11/21 Reason For Visit: SI Interim History: Pt reports feeling slightly less anxious today but states he thinks something bad will happen. He denies SI/HI. He is taking medications as prescribed. He again declines to adjust dose of risperidone or switch or add another antipsychotic. He reports he wants to go home soon. He is mostly in room, minimally interactive with peers or staff. Review of Systems Review of Systems Yes all other systems are reviewed and are negative Cardiovascular: Denies chest pain, Denies Epigastric Pain, Denies rapid heart rate, Denies lightheadedness and Denies dyspnea Respiratory: Denies dyspnea Gastrointestinal: Denies constipation, Denies GI cramping and Denies diarrhea Mental Status Exam Mental Status Exam Narrative: Appearance: casually groomed, fair hygiene, in NAD Behavior: asleep Speech: not observed TP: not observed TC: not observed Mood: not observed Affect: calm SI: not observed HI: not observed AH/VH: not observed Diagnostics Vital Signs (24Hr): Vital Signs - 24 hr 05/10/21 14:56 05/10/21 18:00 Temperature 97.8 F 98.5 F Pulse Rate 120 H 104 H Respiratory Rate 18 18 Blood Pressure 141/84 H 133/78 Pulse Oximetry 97 Body Mass Index 34.9 Medications Medications Current Medications Generic Name Dose Route Start Last Admin Trade Name Freq PRN Reason Stop Dose Admin Acetaminophen 650 mg 05/02/21 13:57 05/10/21 14:44 Acetaminophen 325 Mg Tablet PO 650 mg Q6H PRN Administration Headache/Pain Mild Scale (1-3) Al Hydroxide/Mg Hydroxide 30 ml 05/02/21 13:57 05/08/21 10:17 Magnesium Hydrox/Alum Hydrox 30 Ml Oral.Susp PO 30 ml Q6H PRN Administration Heartburn/Nausea Haloperidol 5 mg 05/03/21 17:03 05/07/21 12:31 Haloperidol 5 Mg Tablet PO 5 mg Q6H PRN Administration agitation/psychosis Hydroxyzine HCl 25 mg 05/02/21 13:57 05/10/21 20:19 Hydroxyzine Hcl 25 Mg Tablet PO 25 mg BEDTIME PRN Administration Anxiety Magnesium Hydroxide 30 ml 05/02/21 13:57 Milk Of Magnesia 30 Ml Oral.Susp PO DAILY PRN Constipation Nicotine Polacrilex 4 mg 05/02/21 13:57 Nicotine Polacrilex 2 Mg Gum BUCCAL Q2H PRN Nicotine Cravings Pharmacy Consult 1 each 05/02/21 00:46 Consult Rx Perform Med Rec MISCELLANE ONCE PRN Consult order Risperidone 3 mg 05/07/21 21:00 05/10/21 20:19 Risperidone 3 Mg Tablet PO 3 mg BEDTIME OJE Administration Risperidone 1 mg 05/08/21 09:00 05/11/21 08:53 Risperidone 1 Mg Tablet PO 1 mg DAILY JOE Administration Trazodone HCl 50 mg 05/02/21 13:57 Trazodone Hcl 50 Mg Tablet PO BEDTIME PRN Insomnia Allergies Allergies Allergy/AdvReac Type Severity Reaction Status Date / Time No Known Allergies Allergy Verified 05/01/21 22:49 [No Known Allergies*] Assessment & Plan Assessment & Plan (1) Schizophrenia, paranoid, chronic with acute exacerbation: Status: Acute Code(s): F20.0 - Paranoid schizophrenia Assessment and Plan: 1. changed risperidone 2mg po BID to 1 mg QAM and 3 mg QHS due to excessive a.m. sedation. 2. Obtain collateral 3. Coordinate aftercare planning Greater than 50% of the session was spent on counseling and/or coordination of care Reason for contiued inpatient stay Substantial Risk for: inability to function
[2021-05-11] MEDS: risperiDONE 3 MG TABLET PO (20:25)
[2021-05-11] MEDS: hydrOXYzine HCL 25 MG TABLET PO (20:25)
[2021-05-12] MEDS: Acetaminophen 325 MG TABLET 650 MG PO (01:33)
[2021-05-12 06:00] VITALS: BP 134/71; PULSE 100; RESP 22; O2SAT 93
[2021-05-12] MEDS: risperiDONE 1 MG TABLET PO (08:53)
--- NOTE | 2021-05-12 16:17 | HO.PSYCHPN ---
Subjective Subjective Date of Service: 05/12/21 Reason For Visit: SI Interim History: Pt reports feeling slightly less anxious today. He states he does not think something bad will happen. He denies SI/HI. He is taking medications as prescribed. He again declines to adjust dose of risperidone or switch or add another antipsychotic. He reports he wants to go home soon. He is mostly in room, minimally interactive with peers or staff. No behavioral concerns. Review of Systems Review of Systems Yes all other systems are reviewed and are negative Cardiovascular: Denies chest pain, Denies Epigastric Pain, Denies rapid heart rate, Denies lightheadedness and Denies dyspnea Respiratory: Denies dyspnea Gastrointestinal: Denies constipation, Denies GI cramping and Denies diarrhea Mental Status Exam Mental Status Exam Narrative: Appearance: casually groomed, fair hygiene, in NAD Behavior: asleep Speech: not observed TP: not observed TC: not observed Mood: not observed Affect: calm SI: not observed HI: not observed AH/VH: not observed Diagnostics Vital Signs (24Hr): Vital Signs - 24 hr 05/12/21 06:00 Pulse Rate 100 Respiratory Rate 22 H Blood Pressure 134/71 Pulse Oximetry 93 Body Mass Index 34.9 Medications Medications Current Medications Generic Name Dose Route Start Last Admin Trade Name Freq PRN Reason Stop Dose Admin Acetaminophen 650 mg 05/02/21 13:57 05/12/21 01:33 Acetaminophen 325 Mg Tablet PO 650 mg Q6H PRN Administration Headache/Pain Mild Scale (1-3) Al Hydroxide/Mg Hydroxide 30 ml 05/02/21 13:57 05/08/21 10:17 Magnesium Hydrox/Alum Hydrox 30 Ml Oral.Susp PO 30 ml Q6H PRN Administration Heartburn/Nausea Haloperidol 5 mg 05/03/21 17:03 05/07/21 12:31 Haloperidol 5 Mg Tablet PO 5 mg Q6H PRN Administration agitation/psychosis Hydroxyzine HCl 25 mg 05/02/21 13:57 05/11/21 20:25 Hydroxyzine Hcl 25 Mg Tablet PO 25 mg BEDTIME PRN Administration Anxiety Magnesium Hydroxide 30 ml 05/02/21 13:57 Milk Of Magnesia 30 Ml Oral.Susp PO DAILY PRN Constipation Nicotine Polacrilex 4 mg 05/02/21 13:57 Nicotine Polacrilex 2 Mg Gum BUCCAL Q2H PRN Nicotine Cravings Pharmacy Consult 1 each 05/02/21 00:46 Consult Rx Perform Med Rec MISCELLANE ONCE PRN Consult order Risperidone 3 mg 05/07/21 21:00 05/11/21 20:25 Risperidone 3 Mg Tablet PO 3 mg BEDTIME JOE Administration Risperidone 1 mg 05/08/21 09:00 05/12/21 08:53 Risperidone 1 Mg Tablet PO 1 mg DAILY JOE Administration Trazodone HCl 50 mg 05/02/21 13:57 Trazodone Hcl 50 Mg Tablet PO BEDTIME PRN Insomnia Allergies Allergies Allergy/AdvReac Type Severity Reaction Status Date / Time No Known Allergies Allergy Verified 05/01/21 22:49 [No Known Allergies*] Assessment & Plan Assessment & Plan (1) Schizophrenia, paranoid, chronic with acute exacerbation: Status: Acute Code(s): F20.0 - Paranoid schizophrenia Assessment and Plan: 1. changed risperidone 2mg po BID to 1 mg QAM and 3 mg QHS due to excessive a.m. sedation. 2. Obtain collateral 3. Coordinate aftercare planning Greater than 50% of the session was spent on counseling and/or coordination of care Reason for contiued inpatient stay Substantial Risk for: inability to function
[2021-05-12 18:00] VITALS: BP 124/80; PULSE 107; RESP 18; TEMP 36.9; O2SAT 95
[2021-05-12] MEDS: traZODone HCL 50 MG TABLET PO (21:19)
[2021-05-12] MEDS: risperiDONE 3 MG TABLET PO (21:19)
[2021-05-12] MEDS: hydrOXYzine HCL 25 MG TABLET PO (21:24)
[2021-05-13 06:00] VITALS: BP 150/88; PULSE 101; RESP 18; TEMP 36.6; O2SAT 96
--- NOTE | 2021-05-13 08:51 | HO.PSYCHPN ---
Subjective Subjective Date of Service: 05/13/21 Reason For Visit: SI Interim History: Mostly isolates to room. Focused on DC. No SI/AH. c/o MAHER. Review of Systems Review of Systems Yes all other systems are reviewed and are negative Cardiovascular: Denies chest pain, Denies Epigastric Pain, Denies rapid heart rate, Denies lightheadedness and Denies dyspnea Respiratory: Denies dyspnea Gastrointestinal: Denies constipation, Denies GI cramping and Denies diarrhea Mental Status Exam Mental Status Exam Narrative: Appearance: casually groomed, fair hygiene, in NAD Behavior: asleep Speech: not observed TP: not observed TC: not observed Mood: not observed Affect: calm SI: not observed HI: not observed AH/VH: not observed Diagnostics Vital Signs (24Hr): Vital Signs - 24 hr 05/12/21 18:00 Temperature 98.4 F Pulse Rate 107 H Respiratory Rate 18 Blood Pressure 124/80 Pulse Oximetry 95 Body Mass Index 34.9 Medications Medications Current Medications Generic Name Dose Route Start Last Admin Trade Name Freq PRN Reason Stop Dose Admin Acetaminophen 650 mg 05/02/21 13:57 05/12/21 01:33 Acetaminophen 325 Mg Tablet PO 650 mg Q6H PRN Administration Headache/Pain Mild Scale (1-3) Al Hydroxide/Mg Hydroxide 30 ml 05/02/21 13:57 05/08/21 10:17 Magnesium Hydrox/Alum Hydrox 30 Ml Oral.Susp PO 30 ml Q6H PRN Administration Heartburn/Nausea Haloperidol 5 mg 05/03/21 17:03 05/07/21 12:31 Haloperidol 5 Mg Tablet PO 5 mg Q6H PRN Administration agitation/psychosis Hydroxyzine HCl 25 mg 05/02/21 13:57 05/12/21 21:24 Hydroxyzine Hcl 25 Mg Tablet PO 25 mg BEDTIME PRN Administration Anxiety Magnesium Hydroxide 30 ml 05/02/21 13:57 Milk Of Magnesia 30 Ml Oral.Susp PO DAILY PRN Constipation Nicotine Polacrilex 4 mg 05/02/21 13:57 Nicotine Polacrilex 2 Mg Gum BUCCAL Q2H PRN Nicotine Cravings Pharmacy Consult 1 each 05/02/21 00:46 Consult Rx Perform Med Rec MISCELLANE ONCE PRN Consult order Risperidone 3 mg 05/07/21 21:00 05/12/21 21:19 Risperidone 3 Mg Tablet PO 3 mg BEDTIME JOE Administration Risperidone 1 mg 05/08/21 09:00 05/12/21 08:53 Risperidone 1 Mg Tablet PO 1 mg DAILY JOE Administration Trazodone HCl 50 mg 05/02/21 13:57 05/12/21 21:19 Trazodone Hcl 50 Mg Tablet PO 50 mg BEDTIME PRN Administration Insomnia Allergies Allergies Allergy/AdvReac Type Severity Reaction Status Date / Time No Known Allergies Allergy Verified 05/01/21 22:49 [No Known Allergies*] Assessment & Plan Assessment & Plan (1) Schizophrenia, paranoid, chronic with acute exacerbation: Status: Acute Code(s): F20.0 - Paranoid schizophrenia Assessment and Plan: 1. changed risperidone 2mg po BID to 1 mg QAM and 3 mg QHS due to excessive a.m. sedation. 2. Obtain collateral 3. Coordinate aftercare planning Greater than 50% of the session was spent on counseling and/or coordination of care Reason for contiued inpatient stay Substantial Risk for: inability to function
[2021-05-13 18:00] VITALS: BP 110/73; PULSE 116; RESP 18; TEMP 36.2; O2SAT 95
[2021-05-13] MEDS: risperiDONE 3 MG TABLET PO (23:28)
[2021-05-13] MEDS: hydrOXYzine HCL 25 MG TABLET PO (23:28)
--- NOTE | 2021-05-14 07:30 | HO.PSYCHPN ---
Subjective Subjective Date of Service: 05/14/21 Reason For Visit: SI Interim History: 05/13:Mostly isolates to room. Focused on DC. No SI/AH. c/o MAHER. 05/14: Isolating to room. Wants [facility]. No c/o MAHER today. Denies AH/SI Review of Systems Review of Systems Yes all other systems are reviewed and are negative Cardiovascular: Denies chest pain, Denies Epigastric Pain, Denies rapid heart rate, Denies lightheadedness and Denies dyspnea Respiratory: Denies dyspnea Gastrointestinal: Denies constipation, Denies GI cramping and Denies diarrhea Mental Status Exam Mental Status Exam Narrative: Appearance: casually groomed, fair hygiene, in NAD Behavior: asleep Speech: not observed TP: not observed TC: not observed Mood: not observed Affect: calm SI: not observed HI: not observed AH/VH: not observed Diagnostics Vital Signs (24Hr): Vital Signs - 24 hr 05/13/21 18:00 Temperature 97.2 F Pulse Rate 116 H Respiratory Rate 18 Blood Pressure 110/73 Pulse Oximetry 95 Body Mass Index 34.9 Medications Medications Current Medications Generic Name Dose Route Start Last Admin Trade Name Freq PRN Reason Stop Dose Admin Acetaminophen 650 mg 05/02/21 13:57 05/12/21 01:33 Acetaminophen 325 Mg Tablet PO 650 mg Q6H PRN Administration Headache/Pain Mild Scale (1-3) Al Hydroxide/Mg Hydroxide 30 ml 05/02/21 13:57 05/08/21 10:17 Magnesium Hydrox/Alum Hydrox 30 Ml Oral.Susp PO 30 ml Q6H PRN Administration Heartburn/Nausea Haloperidol 5 mg 05/03/21 17:03 05/07/21 12:31 Haloperidol 5 Mg Tablet PO 5 mg Q6H PRN Administration agitation/psychosis Hydroxyzine HCl 25 mg 05/02/21 13:57 05/13/21 23:28 Hydroxyzine Hcl 25 Mg Tablet PO 25 mg BEDTIME PRN Administration Anxiety Magnesium Hydroxide 30 ml 05/02/21 13:57 Milk Of Magnesia 30 Ml Oral.Susp PO DAILY PRN Constipation Nicotine Polacrilex 4 mg 05/02/21 13:57 Nicotine Polacrilex 2 Mg Gum BUCCAL Q2H PRN Nicotine Cravings Pharmacy Consult 1 each 05/02/21 00:46 Consult Rx Perform Med Rec MISCELLANE ONCE PRN Consult order Risperidone 3 mg 05/07/21 21:00 05/13/21 23:28 Risperidone 3 Mg Tablet PO 3 mg BEDTIME JOE Administration Risperidone 1 mg 05/08/21 09:00 05/13/21 11:33 Risperidone 1 Mg Tablet PO Not Given DAILY JOE Sumatriptan Succinate 50 mg 05/13/21 09:54 Sumatriptan Succinate 50 Mg Tablet PO DAILY MRX1 PRN Headache Trazodone HCl 50 mg 05/02/21 13:57 05/12/21 21:19 Trazodone Hcl 50 Mg Tablet PO 50 mg BEDTIME PRN Administration Insomnia Allergies Allergies Allergy/AdvReac Type Severity Reaction Status Date / Time No Known Allergies Allergy Verified 05/01/21 22:49 [No Known Allergies*] Assessment & Plan Assessment & Plan (1) Schizophrenia, paranoid, chronic with acute exacerbation: Status: Acute Code(s): F20.0 - Paranoid schizophrenia Assessment and Plan: 1. changed risperidone 2mg po BID to 1 mg QAM and 3 mg QHS due to excessive a.m. sedation. 2. Obtain collateral 3. Coordinate aftercare planning Greater than 50% of the session was spent on counseling and/or coordination of care Reason for contiued inpatient stay Substantial Risk for: harm to self
[2021-05-14] MEDS: risperiDONE 1 MG TABLET PO (10:33)
[2021-05-14 15:33] VITALS: BP 137/80; PULSE 133; RESP 18; O2SAT 96
[2021-05-14 18:00] VITALS: BP 135/93; PULSE 115; RESP 18; TEMP 37.1; O2SAT 95
[2021-05-14] MEDS: risperiDONE 3 MG TABLET PO (22:10)
[2021-05-15] MEDS: hydrOXYzine HCL 25 MG TABLET PO (01:27)
[2021-05-15 06:00] VITALS: BP 118/66; PULSE 88; RESP 18; TEMP 36.7; O2SAT 93
[2021-05-15] MEDS: risperiDONE 1 MG TABLET PO (08:20)
--- NOTE | 2021-05-15 12:22 | PM.PSYDC ---
DS: Providers Provider Date of Service: 05/15/21 Date of admission: 05/02/21 13:53 Primary care physician: None Physician DS: Diagnosis Discharge Diagnosis (1) Schizophrenia, paranoid, chronic with acute exacerbation: Status: Acute DS: Medications Discharge Medications Home Medications: Previous Rx's Medication Instructions Recorded risperidone 1 mg PO DAILY #30 tab 05/15/21 risperidone 3 mg PO BEDTIME #30 tab 05/15/21 trazodone 50 mg PO BEDTIME PRN #30 tab 05/15/21 Discharge Plan Discharge Patient Disposition: Home, Self-Care Discharge Diagnosis: Schizophrenia Referrals: Dr. Carmona (psychiatry) [Other] - 06/01/21 12:00 pm (Telehealth Appointment) Physician,None [Primary Care Provider] - 1 Week Discharge Medications: New trazodone 50 mg Tablet 50 mg PO BEDTIME PRN (Reason: Insomnia) Qty: 30 RF: 0 risperidone 3 mg Tablet 3 mg PO BEDTIME Qty: 30 RF: 0 risperidone 1 mg Tablet 1 mg PO DAILY Qty: 30 RF: 0 Discontinued risperidone 2 mg tablet 1 tab PO BEDTIME RF: 0 amitriptyline 10 mg tablet 1 tab PO BEDTIME PRN (Reason: insomnia) RF: 0 hydroxyzine HCl 25 mg tablet 1 tab PO BID PRN (Reason: Anxiety) RF: 0 No Action amitriptyline 10 mg tablet 1 tab PO BEDTIME RF: 0 Discharge Orders: Discharge Order (Routine); Ordered 05/15/21 Ordered By: Maya Juárez Diet: regular diet Activity on Discharge: As tolerated Stand Alone Forms: Patient Portal Discharge page Print Language: Arabic Care Plan Goals: 1. Maintain mood 2. NO SI/HI Health Concerns: follow up with pcp Plan of Treatment: 1. take medications as prescribed. 2. Go to nearest ED or call 911 in event of emergency. Assessment: Pt with less paranoid delusions, less AH. No aggression towards self or others. Discharge Date/Time: 05/15/21 14:00 Mental Status Exam Mental Status Exam Narrative: Appearance: casually groomed, fair hygiene, in NAD Behavior: asleep Speech: clear, normal rate/rhythm/volume, spontaneous TP: linear TC: less paranoid delusions towards neighbors Mood: good Affect: anxious SI: none HI: not observed AH/VH: not observed Delusions: residual paranoid delusions towards neighbors Insight/judgment: poor x 2. DS: Summary Hospital Course Hospital Course: Mr. Morrison is a 25 year-old male with hx of schizophrenia. He called 911 and was brought via EMS to [facility] due to increase anxious mood, AH telling him that neighbors are listening to his conversations and are after him. He reported something very bad is going to happen to me. He denied SI/HI. In the ED, his utox was negative. On the unit, Mr. Morrison is pleasant but guarded. He reports he want a better life. When asked what is preventing him from having a better life, pt states that he has always been a good person, a now feels neighbors are taking advantage of this. He reports that neighbors can hear his conversations, that auditory hallucinations have warned him that something bad will happen to him. He does note that his neighbors have never made any threats to his face. He reports feeling very anxious during the day. He reports fair sleep. He continues to report suicidal or homicidal ideation but paranoid delusions and hallucinations are torturing him. He reports at home taking medications as prescribed. He is currently on risperidone 2mg po qhs. Past Psychiatric History: Inpatient: 2017 M5 OP: [facility] Dr. Carmona Suicide attempts: he denies Past trials: risperidone, pt does not remember other meds he has been on HOSPITAL COURSE On the unit, Mr. Morrison continued to present as agitated and paranoid towards neighbors. He initially agreed to increase risperidone but later was hesitant about trying different medication. He was guarded, mostly in his room. He denied SI/HI. He gradually presented as slightly less paranaoid but some residual paranoia was evident. However, at that time, since there were no imminent risk of self harm or harm to other, pt was discharged after his 3 day notice . Collateral information from family, report that pt mostly isolated, feeling lonely. They denied safety concerns at time of discharge. Status at Discharge Cognitive/behavioral status at discharge: less paranoia, less AH. No SI/HI. Functional status at discharge: independent ambulation Overall status at discharge: patient is progressing back to baseline Time Spent with Patient Time attestation: Total time spent providing and/or coordinating discharge services:
== END 2021-05-15 14:00 | disposition home or self-care (01) | DRG 885 ==
LOC: HO.ED 05-02 04:14 → HO.PADLT16 05-02 13:54
PROVIDERS: Internal Medicine; Admitting Provider Psychiatry & Neurology Psychiatry; Emergency Provider Emergency Medicine Emergency Medical Services; Visit Provider Social Worker
DX: F20.0 Paranoid schizophrenia (principal); Z20.822 Contact with and (suspected) exposure to COVID-19; Z87.891 Personal history of nicotine dependence; Z79.899 Other long term (current) drug therapy
CPT/HCPCS: 36415; 80061; 80307; 82607; 82746; 83036; 84439; 84443; 87635; 99285

== ENCOUNTER 2021-05-19 20:24 | Inpatient (IN) | payer MEDICARE, MEDICAID, SELFPAY ==
--- NOTE | 2021-05-19 20:28 | ED_ITS ---
HPI - Psych General Chief Complaint: Psychiatric Symptoms Stated Complaint: crisis Source: patient and EMS Mode of arrival: EMS Limitations: altered mental status History of Present Illness HPI Narrative: 26-year-old male presents via EMS with past medical history of paranoid schizophrenia with auditory and visual hallucinations presents with delusions. Patient is not redirectable at this time. MD complaint: altered mental status and hallucinations Onset (ago): unknown Duration: constant History of same: Yes Relieving factors: medication Exacerbating factors: other (Medication noncompliance) Context: not taking psychiatric medications Associated psychiatric symptoms: delusions Associated symptoms: denies other symptoms Related Data Previous Rx's Medication Instructions Recorded risperidone 1 mg PO DAILY #30 tab 05/15/21 risperidone 3 mg PO BEDTIME #30 tab 05/15/21 trazodone 50 mg PO BEDTIME PRN #30 tab 05/15/21 Allergies Allergy/AdvReac Type Severity Reaction Status Date / Time No Known Allergies Allergy Verified 05/01/21 22:49 [No Known Allergies*] Review of Systems Review of Systems: Yes Unobtainable due to mental status PMFSH Past Medical History Attestation statement: The following information was validated with the patient. Source: old records reviewed Social History Social History Household Members: None Household Members Other:: 0 Housing: Apartment Do you presently have visiting nurse or other home services: Yes (pack meds weekly) Unable to assess alcohol history related to: Unknown Alcohol intake: current Alcohol intake frequency: a few times a month Patient Tobacco Use Status: Former Tobacco user Substance Use Type: Marijuana Advance Directives: No Advance Directives Information Provided: Yes service: No Sexual orientation: Straight/Heterosexual Physical Exam Vital Signs: Vital Signs: Last Vital Signs Temp 97.6 F 05/19/21 23:31 Pulse 135 H 05/19/21 23:31 Resp 19 05/19/21 23:31 BP 147/77 H 05/19/21 23:31 Pulse Ox 95 05/19/21 23:31 Body Mass Index 28.8 Appearance: Alert. Oriented to self. Moderate psychiatric distress. Eyes: Pupils equal, round and reactive to light. ENT: Pharynx normal. Neck: Normal inspection. Neck supple. CVS: Normal heart rate and rhythm. Pulses normal. Respiratory: No respiratory distress. Breath sounds normal. Abdomen: Soft and nontender. Skin: Skin warm and dry. Normal skin color. Normal skin turgor. Extremities: No lower extremity edema. Neuro: No motor deficit. No sensory deficit. Course Course Course Narrative: 26-year-old male with past medical history of paranoid schizophrenia presents for delusions. Patient feels that people are breaking i nto his house, is very paranoid, and is suspected that he is not taking his psychiatric medications. Patient is fixated on his delusions and his teeth. Patient is not redirectable. Will order psych consult, consult Psychiatry, DIOP, and COVID test. Based on patient's past history of paranoid schizophrenia, I placed patient on section 12. Visited observation started this time. MDM - Psych Differential Diagnosis Differential diagnosis: Likely acute psychosis and schizoaffective disorder Medical Records Attestation: I reviewed the patient's medical records. Lab Data Attestation: I reviewed the patient's lab results. Result diagrams: 05/19/21 21:18 Labs: Lab Results 05/19/21 05/19/21 05/19/21 Range/Units 20:57 20:57 21:18 WBC (4.8-10.8) X10*3/uL RBC (4.60-5.80) X10*6/uL Hgb (14.0-18.0) g/dl Hct (42-52) % MCV (80-98) fL MCH (27.0-33.0) pg MCHC (31.0-36.0) g/dl RDW (11.0-16.0) % Plt Count (160-400) X10*3/uL MPV (9.4-12.4) fL Immature Gran % (Auto) (0.0-0.4) % Neut % (Auto) (45-73) % Lymph % (Auto) (20-40) % [place] % (Auto) (2-11) % Eos % (Auto) (0-4) % Baso % (Auto) (0-2) % Lymph # (Auto) (1.2-4.9) X10*3/uL [place] # (Auto) (0.1-1.2) X10*3/uL Eos # (Auto) (0.0-0.4) X10*3/uL Baso # (Auto) (0.0-0.2) X10*3/uL Abs Immat Gran (auto) (0.00-0.03) X10*3/uL Absolute Neuts (auto) (2.0-8.3) X10*3/uL Absolute Nucleated RBC (0.0-0.012) X10*3/uL Nucleated RBC % (auto) (0.0-0.2) /100WBC Salicylates < 5.0 L (15-30) mg/dL Urine Opiates Screen Not Detected (Not Detect) Acetaminophen < 1 (<30) mcg/mL Ur Barbiturates Screen Not Detected (Not Detect) Ur Phencyclidine Scrn Not Detected (Not Detect) Ur Amphetamines Screen Not Detected (Not Detect) U Benzodiazepines Scrn Not Detected (Not Detect) Urine Cocaine Screen Not Detected (Not Detect) U Marijuana (THC) Screen Not Detected (Not Detect) Ethyl Alcohol mg/dL COVID-19 (TUSHAR) Negative (Negative) COVID-19 Clin Com See Note 05/19/21 05/19/21 Range/Units 21:18 21:18 WBC 8.6 (4.8-10.8) X10*3/uL RBC 5.25 (4.60-5.80) X10*6/uL Hgb 15.4 (14.0-18.0) g/dl Hct 43.7 (42-52) % MCV 83.2 (80-98) fL MCH 29.3 (27.0-33.0) pg MCHC 35.2 (31.0-36.0) g/dl RDW 12.2 (11.0-16.0) % Plt Count 315 (160-400) X10*3/uL MPV 9.7 (9.4-12.4) fL Immature Gran % (Auto) 0.2 (0.0-0.4) % Neut % (Auto) 65.0 (45-73) % Lymph % (Auto) 27.3 (20-40) % [place] % (Auto) 6.0 (2-11) % Eos % (Auto) 1.1 (0-4) % Baso % (Auto) 0.4 (0-2) % Lymph # (Auto) 2.3 (1.2-4.9) X10*3/uL [place] # (Auto) 0.5 (0.1-1.2) X10*3/uL Eos # (Auto) 0.1 (0.0-0.4) X10*3/uL Baso # (Auto) 0.0 (0.0-0.2) X10*3/uL Abs Immat Gran (auto) 0.02 (0.00-0.03) X10*3/uL Absolute Neuts (auto) 5.6 (2.0-8.3) X10*3/uL Absolute Nucleated RBC 0.000 (0.0-0.012) X10*3/uL Nucleated RBC % (auto) 0.0 (0.0-0.2) /100WBC Salicylates (15-30) mg/dL Urine Opiates Screen (Not Detect) Acetaminophen (<30) mcg/mL Ur Barbiturates Screen (Not Detect) Ur Phencyclidine Scrn (Not Detect) Ur Amphetamines Screen (Not Detect) U Benzodiazepines Scrn (Not Detect) Urine Cocaine Screen (Not Detect) U Marijuana (THC) Screen (Not Detect) Ethyl Alcohol < 10 mg/dL COVID-19 (TUSHAR) (Negative) COVID-19 Clin Com Discharge Plan Discharge Prescriptions: No Action trazodone 50 mg Tablet 50 mg PO BEDTIME PRN (Reason: Insomnia) Qty: 30 RF: 0 risperidone 3 mg Tablet 3 mg PO BEDTIME Qty: 30 RF: 0 risperidone 1 mg Tablet 1 mg PO DAILY Qty: 30 RF: 0
[2021-05-19 20:33] VITALS: BMI 28.8
[2021-05-19] MEDS: LORazepam 1 MG TABLET 2 MG PO (20:44)
[2021-05-19] MEDS: risperiDONE 3 MG TABLET PO (20:44)
[2021-05-19 21:18] LABS: COVID-19 Test Negative (Negative); IDNOW Serial# 08D9AD1C
[2021-05-19 21:26] LABS: MANUAL DIFF FLAG NO
[2021-05-19 21:28] LABS: Amphetamine Screen Urine Not Detected (Not Detect); Barbiturates, Urine Not Detected (Not Detect); Benzodiazepines Screen Urine Not Detected (Not Detect); Cannabinoid Screen Urine Not Detected (Not Detect); Cocaine Screen Urine Not Detected (Not Detect); Opiate Screen Urine Not Detected (Not Detect); Phencyclidine Screen Urine Not Detected (Not Detect)
[2021-05-19 21:28] LABS: Basophils Percent Auto 0.4 % (0-2); Eosinophils Absolute Auto 0.1 X10*3/uL (0.0-0.4); Eosinophils Percent Auto 1.1 % (0-4); Hematocrit 43.7 % (42-52); Hemoglobin 15.4 g/dl (14.0-18.0); Imm Gran Abs Auto 0.02 X10*3/uL (0.00-0.03); Imm Gran Pct Auto 0.2 % (0.0-0.4); Lymphocytes Absolute Auto 2.3 X10*3/uL (1.2-4.9); Lymphocytes Percent Auto 27.3 % (20-40); Mean Corpuscular HGB Conc 35.2 g/dl (31.0-36.0); Mean Corpuscular Hemoglobin 29.3 pg (27.0-33.0); Mean Corpuscular Volume 83.2 fL (80-98); Mean Platelet Volume 9.7 fL (9.4-12.4); Monocytes Absolute Auto 0.5 X10*3/uL (0.1-1.2); Neutrophils Absolute Auto 5.6 X10*3/uL (2.0-8.3); Platelet Count 315 X10*3/uL (160-400); Red Blood Count 5.25 X10*6/uL (4.60-5.80); Red Cell Distribution Width 12.2 % (11.0-16.0); White Blood Count 8.6 X10*3/uL (4.8-10.8)
[2021-05-19 21:51] LABS: Ethanol < 10 mg/dL
[2021-05-19 21:58] LABS: Salicylate < 5.0 mg/dL (15-30)
[2021-05-19 22:42] LABS: Acetaminophen LAB < 1 mcg/mL (<30)
[2021-05-19 23:31] VITALS: BP 147/77; PULSE 135; RESP 19; TEMP 36.4; O2SAT 95
--- NOTE | 2021-05-20 | ECG_ITS ---
Test Reason : MEDICAL CLEAR Blood Pressure : / mmHG Vent. Rate : 095 BPM Atrial Rate : 095 BPM P-R Int : 166 ms QRS Dur : 094 ms QT Int : 382 ms P-R-T Axes : 047 080 035 degrees QTc Int : 480 ms Normal sinus rhythm Prolonged QT Abnormal ECG When compared with ECG of 25-APR-2021 05:30, No significant change was found Referred By: Yamile Jain Electronically Signed By:Fernandez Jackson
[2021-05-20 02:49] VITALS: PULSE 129
[2021-05-20 03:13] VITALS: PULSE 95
--- NOTE | 2021-05-20 06:00 | PC.NURSE ---
Patient currently in bed appears sleeping, patient was up few times for bathroom use and back, appetite good, elimination intact, thought process paranoid and delusional fixated on his apartment, constantly asking when is he going to M3, pacing in hallway while awake and self dialoguing, Patient's HR was 129 at 0300, provider notified/ordered EKG, HR per EKG was 95, patient compliant with his medication, med rec completed/pending JAN update, patient at time can be loud but patient is [id number], patient awaiting N evaluation, N referral completed and confirmed by [facility] supervisor [employer], will continue to monitor.
--- NOTE | 2021-05-20 07:15 | PC.NURSE ---
patient appears to remain at rest with even unlabored breaths, patient appears in no distress
[2021-05-20 10:27] VITALS: BP 127/105; PULSE 101; RESP 18; TEMP 36.2; O2SAT 97
--- NOTE | 2021-05-20 11:11 | PC.NURSE ---
patient declined morning meds and soon thereafter called 911 security notified this greeting card writer advised patient to stop calling police.
[2021-05-20 16:49] VITALS: BP 114/53; RESP 18; TEMP 36.2; O2SAT 95
[2021-05-20] MEDS: Amitriptyline HCl 10 MG TABLET PO (19:58)
[2021-05-20] MEDS: risperiDONE 3 MG TABLET PO (19:58)
[2021-05-20] MEDS: HaloperidoL 5 MG TABLET PO (19:58)
[2021-05-20] MEDS: LORazepam 1 MG TABLET 2 MG PO (19:58)
[2021-05-20] MEDS: Amoxicillin/Potassium Clav 875 MG TABLET PO (21:03)
[2021-05-20 21:23] VITALS: BP 144/81; PULSE 104; RESP 18; O2SAT 97
--- NOTE | 2021-05-20 23:16 | PC.NURSE ---
Patient is loud at time frustrated over being in POD, wanted to go home, patient is going to be reassessed in the morning by [facility], patient needs a lot of redirection for medication, will continue to monitor.
--- NOTE | 2021-05-21 06:16 | PC.NURSE ---
Patient overall slept well, no distress observed/reported, patient needs a lot of redirection in med administration, appetite good, elimination intact, patient showered yesterday evening, patient is on antibiotic for tooth infection, patient's thought process is paranoid, fixated on his apartment, VSS, patient is awaiting N for reevaluation, will continue tomonitor.
--- NOTE | 2021-05-21 07:03 | PC.NURSE ---
patient appears te remain at rest at present with even unlabored breaths patient appears in no distress
[2021-05-21 09:54] VITALS: BP 120/74; PULSE 101; RESP 16; TEMP 36.3; O2SAT 95
--- NOTE | 2021-05-21 13:47 | PC.NURSE ---
patient states i'm going to lock you in that room there pacing on unit, periodically demanding the phone number to inpatient unit
[2021-05-21] MEDS: risperiDONE 3 MG TABLET PO (20:12)
[2021-05-21] MEDS: Amoxicillin/Potassium Clav 875 MG TABLET PO (20:12)
[2021-05-21] MEDS: Amitriptyline HCl 10 MG TABLET PO (20:13)
[2021-05-21] MEDS: traZODone HCL 50 MG TABLET PO (20:55)
[2021-05-22 00:16] VITALS: BP 120/84; PULSE 101; RESP 16; TEMP 36.7; O2SAT 98
[2021-05-22 03:30] VITALS: BP 138/71; PULSE 118; TEMP 35.8; O2SAT 97
--- NOTE | 2021-05-22 06:49 | PC.NURSE ---
Patient had intermittent sleep, loud disruptive at times, thought process paranoid, patient need lot of redirection for medication, patient is antibiotic for tooth infection, disposition section 12 inpatient bed search, will continue to monitor.
[2021-05-22 07:45] VITALS: BP 150/91; PULSE 118; RESP 15; TEMP 36.4; O2SAT 94
--- NOTE | 2021-05-22 07:45 | PC.NURSE ---
pt pacing in community area. pt sts someone broke into my house. I need to know who it is. Who was it? Why aren't you telling me who it is? This RN and tech informed pt that we do not have that information. pt redirected to his room. will continue to monitor
--- NOTE | 2021-05-22 08:38 | PC.NURSE ---
[facility] called this RN and said Dr Lu will come see pt today for consult.
[2021-05-22] MEDS: Amoxicillin/Potassium Clav 875 MG TABLET PO ×2 (08:46→21:24)
[2021-05-22] MEDS: risperiDONE 1 MG TABLET PO (08:46)
--- NOTE | 2021-05-22 10:30 | PC.NURSE ---
PT PACING IN HALLWAY. ALL STAFF IN THE HALLWAY MONITORING PTS BEHAVIOR. WILL CONTINUE TO MONITOR. PT DENIES SI/HI. PT STS i WANT TO GET OUT OF HERE
--- NOTE | 2021-05-22 11:20 | PC.NURSE ---
DR ROA AT PTS BEDSIDE FOR CONSULT.
--- NOTE | 2021-05-22 11:37 | PC.NURSE ---
DR ROA'S CONSULT COMPLETE. DR ROA STS HE WILL WRITE A CONSULT NOTE IN THE CHART. PT PACING IN [facility]. PT IS COOPERATIVE. PT AWARE OF TREATMENT PLAN
--- NOTE | 2021-05-22 12:06 | P.CNPS_ITS ---
History of Present Illness Date of Service: t Chief Complaint: crisis Reason for Consult: Psychosis Discussed with referring provider: Yes (Discussed disposition with the team on the psychiatric pod) Sources of Information: patient interviewed, chart reviewed and crisis/core team assessment reviewed HPI Narrative: The patient is a 26 year old [place]ert[place] male, single, with no children, unemployed on disability for mental illness, with a history of Schizophrenia, living in a supported housing program from [facility]. He was referred to the ED after he came to the police station reporting that there were people breaking into his apartment and he felt scared that something could happen to me . He was recently discharged from inpatient unit with VNA services and other ancillary services. During the interview, the patient reported that he is fully compliant with Risperdal 1 mg po qam and 2 mg po qhs given by his VNA. He admitted paranoia, he is completely sure that someone is breaking into my apartment since he has found a hair pin. He also is sure that his neighbors are talking about him. He reports sporadic auditory hallucinations but he denies suicidal or homicidal thoughts, even though, he admitted that he will defend myself if they try to get into my apaprtment . Past Psychiatric History: Inpatient: 2017 [facility] OP: [facility] Dr. Carmona Suicide attempts: he denies Past trials: risperidone, pt does not remember other meds he has been on. Medical Evaluation Reviewed: Yes Review of Systems Review of Systems Yes all other systems are reviewed and are negative [facility] Family History: Both parents with substance use. Social History: Pt raised by extended family. Not close to bio mother or father. He was born in [place], in [place] for several years. He does have cousin and aunt close to him. Not working, on SSI as primary source of income. Trauma History: Pt identifies not growing up with bio parents as traumatic. Diagnostics Vital Signs (24Hr): Vital Signs - 24 hr 05/22/21 00:16 05/22/21 07:45 Temperature 98.1 F 97.6 F Pulse Rate 101 H 118 H Respiratory Rate 16 15 Blood Pressure 120/84 150/91 H Pulse Oximetry 98 94 Body Mass Index 28.8 Labs Results: 05/19/21 21:18 Mental Status Exam Mental Status Exam Patient Appearance: Well Grooomed Patient Orientation: Person, Place, Time and Situation Level of Consciousness: Awake and Restless Patient Behavior: Guarded, Cooperative and Anxious Mood Description: Anxious and Apprehensive Affect Description: Labile Patient Cognition Impaired: No Ability to Follow Directions: Fair Speech Pattern: Clear Memory Description: Intact Hallucinations: Auditory Delusions: Paranoid Ideation Perceptual Disturbances: Hallucinations Thought Process: Evasive Thought Content: positive for Obsessional Thoughts and positive for Circumstantial Judgement: Poor Medications Medications Current Medications Generic Name Dose Route Start Last Admin Trade Name Freq PRN Reason Stop Dose Admin Amitriptyline HCl 10 mg 05/20/21 21:00 05/21/21 20:13 Amitriptyline Hcl 10 Mg Tablet PO 10 mg BEDTIME JOE Administration Amoxicillin/Clavulanate Potassium 875 mg 05/20/21 21:00 05/22/21 08:46 Amoxicillin/Potassium Clav 875 Mg Tablet PO 05/30/21 09:01 875 mg Q12H JOE Administration Risperidone 1 mg 05/21/21 09:00 05/22/21 08:46 Risperidone 1 Mg Tablet PO 1 mg DAILY JOE Administration Risperidone 3 mg 05/20/21 21:00 05/21/21 20:12 Risperidone 3 Mg Tablet PO 3 mg BEDTIME JOE Administration Trazodone HCl 50 mg 05/20/21 09:23 05/21/21 20:55 Trazodone Hcl 50 Mg Tablet PO 50 mg BEDTIME PRN Administration Insomnia Allergies Allergies Allergy/AdvReac Type Severity Reaction Status Date / Time No Known Allergies Allergy Verified 05/01/21 22:49 [No Known Allergies*] Assessment & Plan Assessment & Plan (1) Schizophrenia, paranoid, chronic with acute exacerbation: Status: Acute Code(s): F20.0 - Paranoid schizophrenia Recommendations: Young adult [place]ertor[place] male with Schizophrenia, brought by the police since he reported that people are breaking into his apartment with auditory hallucinations and delusions. Plan: The patient has already a bed at [facility]. Continue treatment with Risperdal. Gather collateral information Greater than 50% of the session was spent on counseling and/or coordination of care
--- NOTE | 2021-05-22 14:16 | PC.NURSE ---
RN to RN report given to Beth on [facility]
[2021-05-22] MEDS: LORazepam 1 MG TABLET 2 MG PO (19:17)
[2021-05-22] MEDS: HaloperidoL 5 MG TABLET PO (19:17)
--- NOTE | 2021-05-22 20:48 | PC.ADMIT ---
VANESSA VARMA 26 Y/O MALE TRANSPORTED TO THE ED BY [facility] AFTER REPORTING HARASSMENT FROM HIS NEIGHBORS. PATIENT BELIEVES SOMEONE WAS IN HIS APARTMENT DUE TO FINDING A HARPREET PIN ON HIS BATHROOM FLOOR. PATIENT SIGNED A CV 3-DAY. PATIENT REFERRED BY N AND ARRIVED ON [facility] AT 1530 05/22/21. PATIENT WAS PREVIOUSLY DISCHARGED FROM [facility] ON 05/17/21. PATIENTS TOX. SCREEN WAS NEGATIVE AND STATES HE QUIT SMOKING A FEW YEARS AGO. UPON ARRIVAL TO THE UNIT, PATIENT REFUSED TO PARTICIPATE WITH THE ADMISSION STATING I DON'T NEED TO BE HERE, I HAVE TO TAKE CARE OF MY APARTMENT. SECURITY WAS CALLED DUE TO THE PATIENTS ANXIETY ESCALATING AND THE INABILITY TO CALM DOWN. STAT ORDERS OF LORAZEPAM 2MG PO AND HALOPERIDOL 5 MG PO WERE GIVEN. PATIENT APOLOGIZED FOR HIS BEHAVIOR AND STATES HE FEELS SAFE HERE. PATIENT STATES HE WILL TAKE A SHOWER. JAG
[2021-05-22] MEDS: risperiDONE 3 MG TABLET PO (21:24)
[2021-05-22 22:55] VITALS: BP 125/85; PULSE 120; RESP 20; TEMP 36.2; O2SAT 97
[2021-05-23] MEDS: risperiDONE 1 MG TABLET PO (09:37)
[2021-05-23] MEDS: Amoxicillin/Potassium Clav 875 MG TABLET PO ×2 (09:37→19:51)
[2021-05-23 11:01] VITALS: BP 130/76; PULSE 113; RESP 18; TEMP 36.4; O2SAT 98
--- NOTE | 2021-05-23 14:42 | HO.PSYADMNOT ---
HPI Chief Complaint: paranoia/AH Sources of Information: patient interviewed, chart reviewed and crisis/core team assessment reviewed HPI Subjective Notes: Conditional Voluntary and 3 Day Narrative: Mr. Morrison is a 26 year-old male with hx of schizophrenia. He is known to this unit through recent admission, discharged on 05/15 after evaluation and treatment of paranoia. Mr. Morrison was brought to [facility] via EMS after he went to police station reporting paranoid delusions towards neighbors. He reports that after discharge, he went to [facility] as he did not feel safe going back to his apartment. On the unit, pt presents as agitated, demands to be discharged as he does not think he needs to be in psychiatric unit. He reports he has to leave because he is worried people are breaking into his apartment. He denies AH- but appears internally preoccupied. He reports fair sleep. He denies SI/HI. Past Psychiatric History: Inpatient: 2017 [facility] OP: [facility] Dr. Carmona Suicide attempts: he denies Past trials: risperidone, pt does not remember other meds he has been on. Medical Evaluation Reviewed: Yes [facility] Family History: Both parents with substance use. Social History: Pt raised by extended family. Not close to bio mother or father. He was born in [place], in [place] for several years. He does have cousin and aunt close to him. Not working, on [employer] as primary source of income. Trauma History: Pt identifies not growing up with bio parents as traumatic. Diagnostics Vital Signs (24Hr): Vital Signs - 24 hr 05/22/21 22:55 05/23/21 11:01 Temperature 97.1 F 97.6 F Pulse Rate 120 H 113 H Respiratory Rate 20 18 Blood Pressure 125/85 130/76 Pulse Oximetry 97 98 Body Mass Index 28.8 Labs Results: 05/19/21 21:18 Meds/Allergies Meds Home Medications Acetaminophen (Acetaminophen 325 Mg Tablet) 650 mg PO Q6H PRN PRN Reason: Headache/Pain Mild Scale (1-3) Last Admin: 05/24/21 09:11 Dose: 325 mg Documented by: Al Hydroxide/Mg Hydroxide (Magnesium Hydrox/Alum Hydrox 30 Ml Oral.Susp) 30 ml PO Q6H PRN PRN Reason: Heartburn/Nausea Amoxicillin/Clavulanate Potassium (Amoxicillin/Potassium Clav 875 Mg Tablet) 875 mg PO Q12H [facility] Stop: 05/30/21 09:01 Last Admin: 05/24/21 09:06 Dose: Not Given Documented by: Haloperidol (Haloperidol 5 Mg Tablet) 5 mg PO Q6H PRN PRN Reason: agitation Last Admin: 05/22/21 19:17 Dose: 5 mg Documented by: Hydroxyzine HCl (Hydroxyzine Hcl 25 Mg Tablet) 25 mg PO BEDTIME PRN PRN Reason: Anxiety Lorazepam (Lorazepam 0.5 Mg Tablet) 2 mg PO Q6H PRN PRN Reason: Anxiety Magnesium Hydroxide (Milk Of Magnesia 30 Ml Oral.Susp) 30 ml PO DAILY PRN PRN Reason: Constipation Nicotine Polacrilex (Nicotine Polacrilex 2 Mg Gum) 2 mg BUCCAL Q2H PRN PRN Reason: Nicotine Cravings Risperidone (Risperidone 3 Mg Tablet) 3 mg PO BID [facility] Last Admin: 05/24/21 09:04 Dose: 3 mg Documented by: Trazodone HCl (Trazodone Hcl 50 Mg Tablet) 50 mg PO BEDTIME PRN PRN Reason: Insomnia Last Admin: 05/21/21 20:55 Dose: 50 mg Documented by: Trazodone HCl (Trazodone Hcl 50 Mg Tablet) 50 mg PO BEDTIME PRN PRN Reason: Insomnia Allergies Allergies Allergy/AdvReac Type Severity Reaction Status Date / Time No Known Allergies Allergy Verified 05/01/21 22:49 [No Known Allergies*] Mental Status Exam Mental Status Exam Narrative: Appearance: casually groomed, fair hygiene, in NAD Behavior: asleep Speech: clear, normal rate/rhythm/volume, spontaneous TP: linear TC: less paranoid delusions towards neighbors Mood: good Affect: anxious SI: none HI: not observed AH/VH: not observed Delusions: residual paranoid delusions towards neighbors Insight/judgment: poor x 2. Assessment & Plan Assessment & Plan (1) Schizophrenia, paranoid, chronic with acute exacerbation: Status: Acute Code(s): F20.0 - Paranoid schizophrenia Assessment and Plan: 1. Obtain collateral information 2. Admit to [facility] 3. Increase risperidone to 3mg po BID- but will discussed switching antipsychotics as risperidone even higher doses didn't seem too effective. Reason for continued inpatient stay Substantial Risk for: inability to function
[2021-05-23 18:00] VITALS: BP 139/84; PULSE 103; TEMP 36.3
[2021-05-23] MEDS: risperiDONE 3 MG TABLET PO (21:58)
--- NOTE | 2021-05-24 | ECG_ITS ---
Test Reason : PALPITATIONS Blood Pressure : / mmHG Vent. Rate : 090 BPM Atrial Rate : 090 BPM P-R Int : 156 ms QRS Dur : 082 ms QT Int : 368 ms P-R-T Axes : 027 080 033 degrees QTc Int : 450 ms Normal sinus rhythm Normal ECG When compared with ECG of 20-MAY-2021 03:13, No significant change was found Referred By: Maya Juárez Electronically Signed By:CHAYO JACOBS MD
[2021-05-24] MEDS: risperiDONE 3 MG TABLET PO ×2 (09:04→22:00)
[2021-05-24] MEDS: Acetaminophen 325 MG TABLET 650 MG PO (09:11)
--- NOTE | 2021-05-24 09:40 | HO.PSYCHPN ---
Subjective Subjective Date of Service: 05/26/21 Reason For Visit: paranoia/AH Subjective Notes: Section 7 Interim History: Pt continues to present as paranoid, stating that neighbors are breaking in and he needs to leave. He demands discharged today. He was explained that team is concern about paranoia and fact that risperidone may not be as helpful. He refuses to try new medications. He denies SI/HI. He is pacing, restless. Medication Compliance: Yes Review of Systems Review of Systems Yes all other systems are reviewed and are negative and Unobtainable due to mental status Cardiovascular: Denies chest pain, Denies Epigastric Pain, Denies rapid heart rate, Denies irregular heart rhythm, Denies leg edema and Denies lightheadedness Mental Status Exam Mental Status Exam Narrative: Appearance: casually groomed, fair hygiene, in NAD Behavior: asleep Speech: clear, normal rate/rhythm/volume, spontaneous TP: linear TC: less paranoid delusions towards neighbors Mood: good Affect: anxious SI: none HI: not observed AH/VH: not observed Delusions: residual paranoid delusions towards neighbors Insight/judgment: poor x 2. Diagnostics Vital Signs (24Hr): Vital Signs - 24 hr 05/25/21 16:22 Temperature 97.9 F Pulse Rate 125 H Respiratory Rate 18 Blood Pressure 137/72 Pulse Oximetry 96 Body Mass Index 35.2 Labs Results: 05/19/21 21:18 Medications Medications Current Medications Generic Name Dose Route Start Last Admin Trade Name Freq PRN Reason Stop Dose Admin Acetaminophen 650 mg 05/22/21 14:45 05/24/21 09:11 Acetaminophen 325 Mg Tablet PO 325 mg Q6H PRN Administration Headache/Pain Mild Scale (1-3) Al Hydroxide/Mg Hydroxide 30 ml 05/22/21 14:45 Magnesium Hydrox/Alum Hydrox 30 Ml Oral.Susp PO Q6H PRN Heartburn/Nausea Amoxicillin/Clavulanate Potassium 875 mg 05/20/21 21:00 05/25/21 20:37 Amoxicillin/Potassium Clav 875 Mg Tablet PO 05/30/21 09:01 875 mg Q12H JOE Administration Haloperidol 5 mg 05/22/21 17:20 05/22/21 19:17 Haloperidol 5 Mg Tablet PO 5 mg Q6H PRN Administration agitation Hydroxyzine HCl 25 mg 05/22/21 14:45 Hydroxyzine Hcl 25 Mg Tablet PO BEDTIME PRN Anxiety Lorazepam 2 mg 05/23/21 14:43 Lorazepam 0.5 Mg Tablet PO Q6H PRN Anxiety Magnesium Hydroxide 30 ml 05/22/21 14:45 Milk Of Magnesia 30 Ml Oral.Susp PO DAILY PRN Constipation Nicotine Polacrilex 2 mg 05/22/21 14:45 Nicotine Polacrilex 2 Mg Gum BUCCAL Q2H PRN Nicotine Cravings Risperidone 3 mg 05/23/21 21:00 05/25/21 20:37 Risperidone 3 Mg Tablet PO 3 mg BID JOE Administration Trazodone HCl 50 mg 05/20/21 09:23 05/21/21 20:55 Trazodone Hcl 50 Mg Tablet PO 50 mg BEDTIME PRN Administration Insomnia Trazodone HCl 50 mg 05/22/21 14:45 Trazodone Hcl 50 Mg Tablet PO BEDTIME PRN Insomnia Allergies Allergies Allergy/AdvReac Type Severity Reaction Status Date / Time No Known Allergies Allergy Verified 05/01/21 22:49 [No Known Allergies*] Assessment & Plan Assessment & Plan (1) Schizophrenia, paranoid, chronic with acute exacerbation: Status: Acute Code(s): F20.0 - Paranoid schizophrenia Assessment and Plan: 1. Obtain collateral information 2. Admit to [facility] 3. Increase risperidone to 3mg po BID- but will discussed switching antipsychotics as risperidone even higher doses didn't seem too effective. Greater than 50% of the session was spent on counseling and/or coordination of care Reason for contiued inpatient stay Substantial Risk for: inability to function
[2021-05-24 14:46] VITALS: BP 132/72; PULSE 107; TEMP 36.3
[2021-05-24 16:24] VITALS: BP 138/88; PULSE 121; TEMP 36.4
[2021-05-24] MEDS: Amoxicillin/Potassium Clav 875 MG TABLET PO (22:01)
[2021-05-25 07:00] VITALS: BMI 35.2
[2021-05-25] MEDS: Amoxicillin/Potassium Clav 875 MG TABLET PO ×2 (08:51→20:37)
[2021-05-25] MEDS: risperiDONE 3 MG TABLET PO ×2 (08:51→20:37)
--- NOTE | 2021-05-25 09:45 | HO.PSYCHPN ---
Subjective Subjective Date of Service: 05/26/21 Reason For Visit: paranoia/AH Interim History: Pt continues to present as paranoid, stating that neighbors are breaking in and he needs to leave. He demands discharged today. He was explained that team is concern about paranoia and fact that risperidone may not be as helpful. He refuses to try new medications. He denies SI/HI. He is pacing, restless. He also reports that his food had blood and he became very upset yelling at staff who brought his tray. Review of Systems Review of Systems Yes all other systems are reviewed and are negative and Unobtainable due to mental status Cardiovascular: Denies chest pain, Denies Epigastric Pain, Denies rapid heart rate, Denies irregular heart rhythm, Denies leg edema and Denies lightheadedness Mental Status Exam Mental Status Exam Narrative: Appearance: casually groomed, fair hygiene, in NAD Behavior: asleep Speech: clear, normal rate/rhythm/volume, spontaneous TP: linear TC: less paranoid delusions towards neighbors Mood: good Affect: anxious SI: none HI: not observed AH/VH: not observed Delusions: residual paranoid delusions towards neighbors Insight/judgment: poor x 2. Patient Appearance: Well Grooomed Patient Orientation: Person, Place, Time and Situation Level of Consciousness: Awake and Restless Patient Behavior: Guarded, Cooperative and Anxious Mood Description: Anxious and Apprehensive Affect Description: Labile Patient Cognition Impaired: No Ability to Follow Directions: Fair Speech Pattern: Clear Memory Description: Intact Diagnostics Vital Signs (24Hr): Vital Signs - 24 hr 05/25/21 16:22 Temperature 97.9 F Pulse Rate 125 H Respiratory Rate 18 Blood Pressure 137/72 Pulse Oximetry 96 Body Mass Index 35.2 Labs Results: 05/19/21 21:18 Medications Medications Current Medications Generic Name Dose Route Start Last Admin Trade Name Freq PRN Reason Stop Dose Admin Acetaminophen 650 mg 05/22/21 14:45 05/24/21 09:11 Acetaminophen 325 Mg Tablet PO 325 mg Q6H PRN Administration Headache/Pain Mild Scale (1-3) Al Hydroxide/Mg Hydroxide 30 ml 05/22/21 14:45 Magnesium Hydrox/Alum Hydrox 30 Ml Oral.Susp PO Q6H PRN Heartburn/Nausea Amoxicillin/Clavulanate Potassium 875 mg 05/20/21 21:00 05/25/21 20:37 Amoxicillin/Potassium Clav 875 Mg Tablet PO 05/30/21 09:01 875 mg Q12H JOE Administration Haloperidol 5 mg 05/22/21 17:20 05/22/21 19:17 Haloperidol 5 Mg Tablet PO 5 mg Q6H PRN Administration agitation Hydroxyzine HCl 25 mg 05/22/21 14:45 Hydroxyzine Hcl 25 Mg Tablet PO BEDTIME PRN Anxiety Lorazepam 2 mg 05/23/21 14:43 Lorazepam 0.5 Mg Tablet PO Q6H PRN Anxiety Magnesium Hydroxide 30 ml 05/22/21 14:45 Milk Of Magnesia 30 Ml Oral.Susp PO DAILY PRN Constipation Nicotine Polacrilex 2 mg 05/22/21 14:45 Nicotine Polacrilex 2 Mg Gum BUCCAL Q2H PRN Nicotine Cravings Risperidone 3 mg 05/23/21 21:00 05/25/21 20:37 Risperidone 3 Mg Tablet PO 3 mg BID JOE Administration Trazodone HCl 50 mg 05/20/21 09:23 05/21/21 20:55 Trazodone Hcl 50 Mg Tablet PO 50 mg BEDTIME PRN Administration Insomnia Trazodone HCl 50 mg 05/22/21 14:45 Trazodone Hcl 50 Mg Tablet PO BEDTIME PRN Insomnia Allergies Allergies Allergy/AdvReac Type Severity Reaction Status Date / Time No Known Allergies Allergy Verified 05/01/21 22:49 [No Known Allergies*] Assessment & Plan Assessment & Plan (1) Schizophrenia, paranoid, chronic with acute exacerbation: Status: Acute Code(s): F20.0 - Paranoid schizophrenia Assessment and Plan: 1. Obtain collateral information 2. Admit to [facility] 3. Increase risperidone to 3mg po BID- but will discussed switching antipsychotics as risperidone even higher doses didn't seem too effective. Greater than 50% of the session was spent on counseling and/or coordination of care Reason for contiued inpatient stay Substantial Risk for: inability to function
[2021-05-25 16:22] VITALS: BP 137/72; PULSE 125; RESP 18; TEMP 36.6; O2SAT 96
--- NOTE | 2021-05-26 06:47 | HO.PSYCHPN ---
Subjective Subjective Date of Service: 05/29/21 Reason For Visit: paranoia/AH Interim History: Pt continues to present as paranoid, stating that neighbors are breaking in and he needs to leave. He demands discharged today. He was explained that team is concern about paranoia and fact that risperidone may not be as helpful. He refuses to try new medications. He denies SI/HI. He is pacing, restless. He also reports that his food had blood and he became very upset yelling at staff who brought his tray. Review of Systems Review of Systems Yes all other systems are reviewed and are negative and Unobtainable due to mental status Cardiovascular: Denies chest pain, Denies Epigastric Pain, Denies rapid heart rate, Denies irregular heart rhythm, Denies leg edema and Denies lightheadedness Mental Status Exam Mental Status Exam Narrative: Appearance: casually groomed, fair hygiene, in NAD Behavior: asleep Speech: clear, normal rate/rhythm/volume, spontaneous TP: linear TC: less paranoid delusions towards neighbors Mood: good Affect: anxious SI: none HI: not observed AH/VH: not observed Delusions: residual paranoid delusions towards neighbors Insight/judgment: poor x 2. Patient Appearance: Well Grooomed Patient Orientation: Person, Place, Time and Situation Level of Consciousness: Awake and Restless Patient Behavior: Guarded, Cooperative and Anxious Mood Description: Anxious and Apprehensive Affect Description: Labile Patient Cognition Impaired: No Ability to Follow Directions: Fair Speech Pattern: Clear Memory Description: Intact Diagnostics Vital Signs (24Hr): Vital Signs - 24 hr 05/28/21 17:15 Temperature 97.5 F Pulse Rate 112 H Body Mass Index 35.2 Labs Results: 05/19/21 21:18 Medications Medications Current Medications Generic Name Dose Route Start Last Admin Trade Name Freq PRN Reason Stop Dose Admin Acetaminophen 650 mg 05/22/21 14:45 05/24/21 09:11 Acetaminophen 325 Mg Tablet PO 325 mg Q6H PRN Administration Headache/Pain Mild Scale (1-3) Al Hydroxide/Mg Hydroxide 30 ml 05/22/21 14:45 Magnesium Hydrox/Alum Hydrox 30 Ml Oral.Susp PO Q6H PRN Heartburn/Nausea Amoxicillin/Clavulanate Potassium 875 mg 05/20/21 21:00 05/28/21 20:50 Amoxicillin/Potassium Clav 875 Mg Tablet PO 05/30/21 09:01 875 mg Q12H JOE Administration Haloperidol 5 mg 05/22/21 17:20 05/22/21 19:17 Haloperidol 5 Mg Tablet PO 5 mg Q6H PRN Administration agitation Hydroxyzine HCl 25 mg 05/22/21 14:45 Hydroxyzine Hcl 25 Mg Tablet PO BEDTIME PRN Anxiety Lorazepam 2 mg 05/28/21 09:57 Lorazepam 1 Mg Tablet PO Q6H PRN Anxiety Magnesium Hydroxide 30 ml 05/22/21 14:45 Milk Of Magnesia 30 Ml Oral.Susp PO DAILY PRN Constipation Nicotine Polacrilex 2 mg 05/22/21 14:45 Nicotine Polacrilex 2 Mg Gum BUCCAL Q2H PRN Nicotine Cravings Risperidone 3 mg 05/23/21 21:00 05/28/21 20:50 Risperidone 3 Mg Tablet PO 3 mg BID JOE Administration Trazodone HCl 50 mg 05/20/21 09:23 05/21/21 20:55 Trazodone Hcl 50 Mg Tablet PO 50 mg BEDTIME PRN Administration Insomnia Trazodone HCl 50 mg 05/22/21 14:45 Trazodone Hcl 50 Mg Tablet PO BEDTIME PRN Insomnia Allergies Allergies Allergy/AdvReac Type Severity Reaction Status Date / Time No Known Allergies Allergy Verified 05/01/21 22:49 [No Known Allergies*] Assessment & Plan Assessment & Plan (1) Schizophrenia, paranoid, chronic with acute exacerbation: Status: Acute Code(s): F20.0 - Paranoid schizophrenia Assessment and Plan: 1. Obtain collateral information 2. Admit to [facility] 3. Increase risperidone to 3mg po BID- but will discussed switching antipsychotics as risperidone even higher doses didn't seem too effective. Greater than 50% of the session was spent on counseling and/or coordination of care Reason for contiued inpatient stay Substantial Risk for: harm to others and inability to function
[2021-05-26 10:47] VITALS: BP 114/76; PULSE 119; RESP 18; TEMP 35.9; O2SAT 95
[2021-05-26] MEDS: risperiDONE 3 MG TABLET PO ×2 (13:08→22:05)
[2021-05-26 15:50] VITALS: BP 135/72; PULSE 110; TEMP 36.1
[2021-05-26] MEDS: Amoxicillin/Potassium Clav 875 MG TABLET PO (20:16)
[2021-05-27 06:00] VITALS: BP 107/71; PULSE 120; RESP 14; TEMP 36.3; O2SAT 97
[2021-05-27] MEDS: risperiDONE 3 MG TABLET PO ×2 (09:20→23:35)
[2021-05-27] MEDS: Amoxicillin/Potassium Clav 875 MG TABLET PO ×2 (09:20→23:35)
[2021-05-27 18:00] VITALS: BP 146/73; PULSE 104; TEMP 36.3
[2021-05-28 06:00] VITALS: BP 144/70; PULSE 108; RESP 18; TEMP 36.4; O2SAT 99
--- NOTE | 2021-05-28 06:48 | HO.PSYCHPN ---
Subjective Subjective Date of Service: 05/29/21 Reason For Visit: paranoia/AH Interim History: Minimal change with pt. Pt continues to present as paranoid, stating that neighbors are breaking in and he needs to leave. He demands discharged today (again). He was explained that team is concern about paranoia and fact that risperidone may not be as helpful. He refuses to try new medications- taking risperidone 3mg po BID for now. He denies SI/HI. He is pacing, restless. He also reports that his food had blood and he became very upset yelling at staff who brought his tray. Review of Systems Review of Systems Yes all other systems are reviewed and are negative and Unobtainable due to mental status Cardiovascular: Denies chest pain, Denies Epigastric Pain, Denies rapid heart rate, Denies irregular heart rhythm, Denies leg edema and Denies lightheadedness Mental Status Exam Mental Status Exam Narrative: Appearance: casually groomed, fair hygiene, in NAD Behavior: asleep Speech: clear, normal rate/rhythm/volume, spontaneous TP: linear TC: less paranoid delusions towards neighbors Mood: good Affect: anxious SI: none HI: not observed AH/VH: not observed Delusions: residual paranoid delusions towards neighbors Insight/judgment: poor x 2. Patient Appearance: Well Grooomed Patient Orientation: Person, Place, Time and Situation Level of Consciousness: Awake and Restless Patient Behavior: Guarded, Cooperative and Anxious Mood Description: Anxious and Apprehensive Affect Description: Labile Patient Cognition Impaired: No Ability to Follow Directions: Fair Speech Pattern: Clear Memory Description: Intact Diagnostics Vital Signs (24Hr): Vital Signs - 24 hr 05/28/21 17:15 Temperature 97.5 F Pulse Rate 112 H Body Mass Index 35.2 Labs Results: 05/19/21 21:18 Medications Medications Current Medications Generic Name Dose Route Start Last Admin Trade Name Freq PRN Reason Stop Dose Admin Acetaminophen 650 mg 05/22/21 14:45 05/24/21 09:11 Acetaminophen 325 Mg Tablet PO 325 mg Q6H PRN Administration Headache/Pain Mild Scale (1-3) Al Hydroxide/Mg Hydroxide 30 ml 05/22/21 14:45 Magnesium Hydrox/Alum Hydrox 30 Ml Oral.Susp PO Q6H PRN Heartburn/Nausea Amoxicillin/Clavulanate Potassium 875 mg 05/20/21 21:00 05/28/21 20:50 Amoxicillin/Potassium Clav 875 Mg Tablet PO 05/30/21 09:01 875 mg Q12H JOE Administration Haloperidol 5 mg 05/22/21 17:20 05/22/21 19:17 Haloperidol 5 Mg Tablet PO 5 mg Q6H PRN Administration agitation Hydroxyzine HCl 25 mg 05/22/21 14:45 Hydroxyzine Hcl 25 Mg Tablet PO BEDTIME PRN Anxiety Lorazepam 2 mg 05/28/21 09:57 Lorazepam 1 Mg Tablet PO Q6H PRN Anxiety Magnesium Hydroxide 30 ml 05/22/21 14:45 Milk Of Magnesia 30 Ml Oral.Susp PO DAILY PRN Constipation Nicotine Polacrilex 2 mg 05/22/21 14:45 Nicotine Polacrilex 2 Mg Gum BUCCAL Q2H PRN Nicotine Cravings Risperidone 3 mg 05/23/21 21:00 05/28/21 20:50 Risperidone 3 Mg Tablet PO 3 mg BID JOE Administration Trazodone HCl 50 mg 05/20/21 09:23 05/21/21 20:55 Trazodone Hcl 50 Mg Tablet PO 50 mg BEDTIME PRN Administration Insomnia Trazodone HCl 50 mg 05/22/21 14:45 Trazodone Hcl 50 Mg Tablet PO BEDTIME PRN Insomnia Allergies Allergies Allergy/AdvReac Type Severity Reaction Status Date / Time No Known Allergies Allergy Verified 05/01/21 22:49 [No Known Allergies*] Assessment & Plan Assessment & Plan (1) Schizophrenia, paranoid, chronic with acute exacerbation: Status: Acute Code(s): F20.0 - Paranoid schizophrenia Assessment and Plan: 1. Obtain collateral information 2. Admit to M5 3. Increase risperidone to 3mg po BID- but will discussed switching antipsychotics as risperidone even higher doses didn't seem too effective. Greater than 50% of the session was spent on counseling and/or coordination of care Reason for contiued inpatient stay Substantial Risk for: harm to others and inability to function
[2021-05-28] MEDS: Amoxicillin/Potassium Clav 875 MG TABLET PO ×2 (07:48→20:50)
[2021-05-28] MEDS: risperiDONE 3 MG TABLET PO ×2 (07:48→20:50)
[2021-05-28 17:15] VITALS: PULSE 112; TEMP 36.4
[2021-05-29 06:00] VITALS: BP 137/63; PULSE 98; TEMP 35.9; O2SAT 93
--- NOTE | 2021-05-29 08:46 | HO.PSYCHPN ---
Subjective Subjective Date of Service: 06/01/21 Reason For Visit: paranoia/AH Interim History: Pt slightly more visible in the unit but continues to report paranoid delusions related to neighbors beraking into his apartment. He reports he wants to go home. He is taking risperidone, continues to decline taking another antipsychotic. He denies SI/HI. Review of Systems Review of Systems Yes all other systems are reviewed and are negative and Unobtainable due to mental status Cardiovascular: Denies chest pain, Denies Epigastric Pain, Denies rapid heart rate, Denies irregular heart rhythm, Denies leg edema and Denies lightheadedness Mental Status Exam Mental Status Exam Narrative: Appearance: casually groomed, fair hygiene, in NAD Behavior: asleep Speech: clear, normal rate/rhythm/volume, spontaneous TP: linear TC: less paranoid delusions towards neighbors Mood: good Affect: anxious SI: none HI: not observed AH/VH: not observed Delusions: residual paranoid delusions towards neighbors Insight/judgment: poor x 2. Patient Appearance: Well Grooomed Patient Orientation: Person, Place, Time and Situation Level of Consciousness: Awake and Restless Patient Behavior: Guarded, Cooperative and Anxious Mood Description: Anxious and Apprehensive Affect Description: Labile Patient Cognition Impaired: No Ability to Follow Directions: Fair Speech Pattern: Clear Memory Description: Intact Diagnostics Vital Signs (24Hr): Vital Signs - 24 hr 05/31/21 18:00 06/01/21 06:25 Temperature 96.9 F 96.3 F L Pulse Rate 118 H 124 H Respiratory Rate 18 16 Blood Pressure 126/59 L 147/79 H Pulse Oximetry 95 95 Body Mass Index 35.2 Labs Results: 05/19/21 21:18 Medications Medications Current Medications Generic Name Dose Route Start Last Admin Trade Name Freq PRN Reason Stop Dose Admin Acetaminophen 650 mg 05/22/21 14:45 05/24/21 09:11 Acetaminophen 325 Mg Tablet PO 325 mg Q6H PRN Administration Headache/Pain Mild Scale (1-3) Al Hydroxide/Mg Hydroxide 30 ml 05/22/21 14:45 Magnesium Hydrox/Alum Hydrox 30 Ml Oral.Susp PO Q6H PRN Heartburn/Nausea Haloperidol 5 mg 05/22/21 17:20 05/22/21 19:17 Haloperidol 5 Mg Tablet PO 5 mg Q6H PRN Administration agitation Hydroxyzine HCl 25 mg 05/22/21 14:45 Hydroxyzine Hcl 25 Mg Tablet PO BEDTIME PRN Anxiety Lorazepam 2 mg 05/28/21 09:57 Lorazepam 1 Mg Tablet PO Q6H PRN Anxiety Magnesium Hydroxide 30 ml 05/22/21 14:45 Milk Of Magnesia 30 Ml Oral.Susp PO DAILY PRN Constipation Metoprolol Succinate 25 mg 05/31/21 09:00 05/31/21 08:46 Metoprolol Succinate Er 25 Mg Tab.Er.24h PO 12.5 mg DAILY JOE Administration Protocol Nicotine Polacrilex 2 mg 05/22/21 14:45 Nicotine Polacrilex 2 Mg Gum BUCCAL Q2H PRN Nicotine Cravings Risperidone 3 mg 05/23/21 21:00 05/31/21 21:57 Risperidone 3 Mg Tablet PO 3 mg BID JOE Administration Trazodone HCl 50 mg 05/20/21 09:23 05/21/21 20:55 Trazodone Hcl 50 Mg Tablet PO 50 mg BEDTIME PRN Administration Insomnia Trazodone HCl 50 mg 05/22/21 14:45 Trazodone Hcl 50 Mg Tablet PO BEDTIME PRN Insomnia Allergies Allergies Allergy/AdvReac Type Severity Reaction Status Date / Time No Known Allergies Allergy Verified 05/01/21 22:49 [No Known Allergies*] Assessment & Plan Assessment & Plan (1) Schizophrenia, paranoid, chronic with acute exacerbation: Status: Acute Code(s): F20.0 - Paranoid schizophrenia Assessment and Plan: 1. Obtain collateral information 2. Admit to M5 3. Increase risperidone to 3mg po BID- but will discussed switching antipsychotics as risperidone even higher doses didn't seem too effective. Greater than 50% of the session was spent on counseling and/or coordination of care Reason for contiued inpatient stay Substantial Risk for: inability to function
[2021-05-29] MEDS: risperiDONE 3 MG TABLET PO ×2 (08:55→21:18)
[2021-05-29] MEDS: Amoxicillin/Potassium Clav 875 MG TABLET PO ×2 (08:55→21:18)
[2021-05-29 18:00] VITALS: BP 110/77; PULSE 114; TEMP 36.1
--- NOTE | 2021-05-30 08:47 | HO.PSYCHPN ---
Subjective Subjective Date of Service: 06/01/21 Reason For Visit: paranoia/AH Interim History: Pt slightly more visible in the unit but continues to report paranoid delusions related to neighbors breaking into his apartment. He reports he wants to go home. He is taking risperidone, continues to decline taking another antipsychotic. He got somewhat agitated today when he ordered food and credit cards stored in bin- he was paranoid about staff stealing his money. He denies SI/HI. Review of Systems Review of Systems Yes all other systems are reviewed and are negative and Unobtainable due to mental status Cardiovascular: Denies chest pain, Denies Epigastric Pain, Denies rapid heart rate, Denies irregular heart rhythm, Denies leg edema and Denies lightheadedness Mental Status Exam Mental Status Exam Narrative: Appearance: casually groomed, fair hygiene, in NAD Behavior: asleep Speech: clear, normal rate/rhythm/volume, spontaneous TP: linear TC: less paranoid delusions towards neighbors Mood: good Affect: anxious SI: none HI: not observed AH/VH: not observed Delusions: residual paranoid delusions towards neighbors Insight/judgment: poor x 2. Patient Appearance: Well Grooomed Patient Orientation: Person, Place, Time and Situation Level of Consciousness: Awake and Restless Patient Behavior: Guarded, Cooperative and Anxious Mood Description: Anxious and Apprehensive Affect Description: Labile Patient Cognition Impaired: No Ability to Follow Directions: Fair Speech Pattern: Clear Memory Description: Intact Diagnostics Vital Signs (24Hr): Vital Signs - 24 hr 05/31/21 18:00 06/01/21 06:25 Temperature 96.9 F 96.3 F L Pulse Rate 118 H 124 H Respiratory Rate 18 16 Blood Pressure 126/59 L 147/79 H Pulse Oximetry 95 95 Body Mass Index 35.2 Labs Results: 05/19/21 21:18 Medications Medications Current Medications Generic Name Dose Route Start Last Admin Trade Name Freq PRN Reason Stop Dose Admin Acetaminophen 650 mg 05/22/21 14:45 05/24/21 09:11 Acetaminophen 325 Mg Tablet PO 325 mg Q6H PRN Administration Headache/Pain Mild Scale (1-3) Al Hydroxide/Mg Hydroxide 30 ml 05/22/21 14:45 Magnesium Hydrox/Alum Hydrox 30 Ml Oral.Susp PO Q6H PRN Heartburn/Nausea Haloperidol 5 mg 05/22/21 17:20 05/22/21 19:17 Haloperidol 5 Mg Tablet PO 5 mg Q6H PRN Administration agitation Hydroxyzine HCl 25 mg 05/22/21 14:45 Hydroxyzine Hcl 25 Mg Tablet PO BEDTIME PRN Anxiety Lorazepam 2 mg 05/28/21 09:57 Lorazepam 1 Mg Tablet PO Q6H PRN Anxiety Magnesium Hydroxide 30 ml 05/22/21 14:45 Milk Of Magnesia 30 Ml Oral.Susp PO DAILY PRN Constipation Metoprolol Succinate 25 mg 05/31/21 09:00 05/31/21 08:46 Metoprolol Succinate Er 25 Mg Tab.Er.24h PO 12.5 mg DAILY JOE Administration Protocol Nicotine Polacrilex 2 mg 05/22/21 14:45 Nicotine Polacrilex 2 Mg Gum BUCCAL Q2H PRN Nicotine Cravings Risperidone 3 mg 05/23/21 21:00 05/31/21 21:57 Risperidone 3 Mg Tablet PO 3 mg BID JOE Administration Trazodone HCl 50 mg 05/20/21 09:23 05/21/21 20:55 Trazodone Hcl 50 Mg Tablet PO 50 mg BEDTIME PRN Administration Insomnia Trazodone HCl 50 mg 05/22/21 14:45 Trazodone Hcl 50 Mg Tablet PO BEDTIME PRN Insomnia Allergies Allergies Allergy/AdvReac Type Severity Reaction Status Date / Time No Known Allergies Allergy Verified 05/01/21 22:49 [No Known Allergies*] Assessment & Plan Assessment & Plan (1) Schizophrenia, paranoid, chronic with acute exacerbation: Status: Acute Code(s): F20.0 - Paranoid schizophrenia Assessment and Plan: 1. Obtain collateral information 2. Admit to M5 3. Increase risperidone to 3mg po BID- but will discussed switching antipsychotics as risperidone even higher doses didn't seem too effective. Greater than 50% of the session was spent on counseling and/or coordination of care Reason for contiued inpatient stay Substantial Risk for: inability to function
[2021-05-30] MEDS: risperiDONE 3 MG TABLET PO ×2 (13:27→20:33)
[2021-05-30 16:25] VITALS: BP 133/91; PULSE 125; TEMP 36.2; O2SAT 95
[2021-05-31 06:42] VITALS: BP 149/77; PULSE 109; TEMP 36.1; O2SAT 95
[2021-05-31] MEDS: risperiDONE 3 MG TABLET PO ×2 (08:41→21:57)
[2021-05-31 08:46] VITALS: BP 139/86; PULSE 115
[2021-05-31] MEDS: Metoprolol Succinate ER 25 MG TAB.ER.24H PO (08:46)
--- NOTE | 2021-05-31 08:48 | HO.PSYCHPN ---
Subjective Subjective Date of Service: 06/01/21 Reason For Visit: paranoia/AH Interim History: Pt slightly more visible in the unit but continues to report paranoid delusions related to neighbors breaking into his apartment. He continues to report that he wants to go home- limited insight into symptoms of paranoia. He is taking risperidone, continues to decline taking another antipsychotics. He got somewhat agitated today when he ordered food and credit cards stored in bin- he was paranoid about staff stealing his money. He denies SI/HI. Review of Systems Review of Systems Yes all other systems are reviewed and are negative and Unobtainable due to mental status Cardiovascular: Denies chest pain, Denies Epigastric Pain, Denies rapid heart rate, Denies irregular heart rhythm, Denies leg edema and Denies lightheadedness Mental Status Exam Mental Status Exam Narrative: Appearance: casually groomed, fair hygiene, in NAD Behavior: asleep Speech: clear, normal rate/rhythm/volume, spontaneous TP: linear TC: less paranoid delusions towards neighbors Mood: good Affect: anxious SI: none HI: not observed AH/VH: not observed Delusions: residual paranoid delusions towards neighbors Insight/judgment: poor x 2. Patient Appearance: Well Grooomed Patient Orientation: Person, Place, Time and Situation Level of Consciousness: Awake and Restless Patient Behavior: Guarded, Cooperative and Anxious Mood Description: Anxious and Apprehensive Affect Description: Labile Patient Cognition Impaired: No Ability to Follow Directions: Fair Speech Pattern: Clear Memory Description: Intact Diagnostics Vital Signs (24Hr): Vital Signs - 24 hr 05/31/21 18:00 06/01/21 06:25 Temperature 96.9 F 96.3 F L Pulse Rate 118 H 124 H Respiratory Rate 18 16 Blood Pressure 126/59 L 147/79 H Pulse Oximetry 95 95 Body Mass Index 35.2 Labs Results: 05/19/21 21:18 Medications Medications Current Medications Generic Name Dose Route Start Last Admin Trade Name Freq PRN Reason Stop Dose Admin Acetaminophen 650 mg 05/22/21 14:45 05/24/21 09:11 Acetaminophen 325 Mg Tablet PO 325 mg Q6H PRN Administration Headache/Pain Mild Scale (1-3) Al Hydroxide/Mg Hydroxide 30 ml 05/22/21 14:45 Magnesium Hydrox/Alum Hydrox 30 Ml Oral.Susp PO Q6H PRN Heartburn/Nausea Haloperidol 5 mg 05/22/21 17:20 05/22/21 19:17 Haloperidol 5 Mg Tablet PO 5 mg Q6H PRN Administration agitation Hydroxyzine HCl 25 mg 05/22/21 14:45 Hydroxyzine Hcl 25 Mg Tablet PO BEDTIME PRN Anxiety Lorazepam 2 mg 05/28/21 09:57 Lorazepam 1 Mg Tablet PO Q6H PRN Anxiety Magnesium Hydroxide 30 ml 05/22/21 14:45 Milk Of Magnesia 30 Ml Oral.Susp PO DAILY PRN Constipation Metoprolol Succinate 25 mg 05/31/21 09:00 05/31/21 08:46 Metoprolol Succinate Er 25 Mg Tab.Er.24h PO 12.5 mg DAILY JOE Administration Protocol Nicotine Polacrilex 2 mg 05/22/21 14:45 Nicotine Polacrilex 2 Mg Gum BUCCAL Q2H PRN Nicotine Cravings Risperidone 3 mg 05/23/21 21:00 05/31/21 21:57 Risperidone 3 Mg Tablet PO 3 mg BID JOE Administration Trazodone HCl 50 mg 05/20/21 09:23 05/21/21 20:55 Trazodone Hcl 50 Mg Tablet PO 50 mg BEDTIME PRN Administration Insomnia Trazodone HCl 50 mg 05/22/21 14:45 Trazodone Hcl 50 Mg Tablet PO BEDTIME PRN Insomnia Allergies Allergies Allergy/AdvReac Type Severity Reaction Status Date / Time No Known Allergies Allergy Verified 05/01/21 22:49 [No Known Allergies*] Assessment & Plan Assessment & Plan (1) Schizophrenia, paranoid, chronic with acute exacerbation: Status: Acute Code(s): F20.0 - Paranoid schizophrenia Assessment and Plan: 1. Obtain collateral information 2. Admit to M5 3. Increase risperidone to 3mg po BID- but will discussed switching antipsychotics as risperidone even higher doses didn't seem too effective. Greater than 50% of the session was spent on counseling and/or coordination of care Reason for contiued inpatient stay Substantial Risk for: inability to function
[2021-05-31 18:00] VITALS: BP 126/59; PULSE 118; RESP 18; TEMP 36.1; O2SAT 95
[2021-06-01 06:25] VITALS: BP 147/79; PULSE 124; RESP 16; TEMP 35.7; O2SAT 95
[2021-06-01] MEDS: risperiDONE 3 MG TABLET PO (08:48)
--- NOTE | 2021-06-01 08:49 | PM.PSYDC ---
DS: Providers Provider Date of Service: 06/01/21 Date of admission: 05/22/21 14:45 Primary care physician: Unknown Physician DS: Diagnosis Discharge Diagnosis (1) Schizophrenia, paranoid, chronic with acute exacerbation: Status: Inactive DS: Medications Discharge Medications Home Medications: Previous Rx's Medication Instructions Recorded metoprolol succinate 25 mg 25 mg PO DAILY #30 tab 06/01/21 tablet,extended release 24 hr risperidone 3 mg tablet 3 mg PO BID #60 tab 06/01/21 trazodone 50 mg tablet 50 mg PO BEDTIME PRN #30 tab 06/01/21 Mental Status Exam Mental Status Exam Narrative: Appearance: casually groomed, fair hygiene, focused on genital pain Speech: clear, normal rate/rhythm/volume, spontaneous TP: goal oriented- wanting to leave TC:focused on pain; Mood: better Affect: anxious, irritable SI: none HI: not observed AH/VH: appears to be responding to internal stimuli Delusions: paranoid delusions towards neighbors Insight/judgment: poor x 2. DS: Summary Hospital Course Hospital Course: HPI: Mr. Morrison is a 26 year-old male with hx of schizophrenia. He is known to this unit through recent admission, discharged on 05/15 after evaluation and treatment of paranoia. Mr. Morrison was brought [place] [facility] via EMS after he went to police station reporting paranoid delusions towards neighbors. He reports that after discharge, he went to [facility] as he did not feel safe going back to his apartment. On the unit, pt presents as agitated, demands to be discharged as he does not think he needs to be in psychiatric unit. He reports he has to leave because he is worried people are breaking into his apartment. He denies AH- but appears internally preoccupied. He reports fair sleep. He denies SI/HI. Past Psychiatric History: Inpatient: 2017 [facility] HOSPITAL COURSE On the unit, Mr. Morrison presents as guarded, upset about being in hospital as he does not think that he needs psychiatric treatment. He is upset with police for not believing his concerns about neighbors. He denies suicidal or homicidal ideation but asks for discharged soon as he wants to check his apartment. He reports he thinks neighbors breaking in. He reports he went to [facility] after discharged because he did not feel safe. We discussed risks, benefits and alternative treatment options. He reports he would only take risperidone, but agreed to higher dose. We discussed options of considering another antipsychotic as he may respond better to other medications but he adamantly denied. Collateral information gathered from aunt who reports he isolates, she did not have major concern in part because she does not see him often. No other family or friends available for further collateral information. Pt had two incidents of brief disruptive behavior: one when he thought staff were stealing his credit card (became agitated but quickly deescalated) and second when he thought kitchen staff had put blood in his food. He was sleeping and eating fine. He was somewhat guarded but no signs of physical aggression towards self or others. He offered several times to consider different antipsychotic but he declined. Team consider petition to court but actual imminent risk of harm to self or others, despite active paranoia is low, therefore he was discharged prior to court hearing. Status at Discharge Cognitive/behavioral status at discharge: less paranoid delusions. NO SI/HI. No signs of aggression towards self or others. Functional status at discharge: independent ambulation Overall status at discharge: patient is progressing back to baseline Time Spent with Patient Time attestation: Total time spent providing and/or coordinating discharge services: Discharge Plan Discharge Patient Disposition: Home, Self-Care Discharge Diagnosis: Schizophrenia, paranoid type Referrals: Dr. Ankush Hartman (psychiatry) [Other] - 06/01/21 12:00 pm (This appointment is via Telehealth) [facility] [Other] - 1 Week (FAX- [phone] Mayra Will Call to Set Up A Time To Visit. ) Anh Wright MD [Physician] - 06/06/21 9:45 am (telephone appointment) Discharge Medications: Discontinued trazodone 50 mg Tablet 50 mg PO BEDTIME PRN (Reason: Insomnia) Qty: 30 RF: 0 risperidone 3 mg Tablet 3 mg PO BEDTIME Qty: 30 RF: 0 risperidone 1 mg Tablet 1 mg PO DAILY Qty: 30 RF: 0 amitriptyline 10 mg tablet 1 tab PO BEDTIME RF: 0 No Action risperidone 3 mg tablet 1 tab PO BID RF: 0 metoprolol succinate 25 mg tablet extended release 24 hr 1 tab PO DAILY RF: 0 trazodone 50 mg tablet 50 mg PO BEDTIME PRN (Reason: sleep) Qty: 5 RF: 0 Discharge Orders: Discharge Order (Routine); Ordered 06/01/21 Ordered By: Maya Juárez Diet: regular diet Activity on Discharge: As tolerated Stand Alone Forms: Patient Portal Discharge page, Community Support Care Plan Goals: 1. Maintain mood 2. No SI/HI Health Concerns: 1. Follow up with PCP Plan of Treatment: 1. go to nearest ED or 911 in event of emergency Assessment: Less paranoia, but limited insight into psychiatric illness. No Signs of aggression towards self or others. Discharge Date/Time: 06/01/21 11:00
== END 2021-06-01 11:00 | disposition home or self-care (01) | DRG 885 ==
LOC: HO.ED 05-20 02:03 → HO.PM5 05-22 15:12
PROVIDERS: Nurse Practitioner Family; Admitting Provider Psychiatry & Neurology Psychiatry; Emergency Provider Student in an Organized Health Care Education/Training Program; Visit Provider Social Worker
DX: F20.0 Paranoid schizophrenia (principal); Z91.14 Patient's other noncompliance with medication regimen; Z20.822 Contact with and (suspected) exposure to COVID-19; Z87.891 Personal history of nicotine dependence; Z79.899 Other long term (current) drug therapy
CPT/HCPCS: 36415; 80143; 80179; 80307; 82077; 85025; 87635; 93005; 99285

== ENCOUNTER 2021-06-02 02:33 | Emergency (ER) | payer MEDICARE, MEDICAID, SELFPAY ==
--- NOTE | ~2021-06-02 | XR_ITS ---
EXAMINATION: XR ANKLE, RIGHT CLINICAL INFORMATION: Swelling and pain COMPARISON: 04/10/2016 TECHNIQUE: AP, lateral, and mortise views of the right ankle. FINDINGS: The bones and soft tissues are normal. No fracture. Alignment is anatomic. Joint spaces are maintained. No joint effusion. XR/XR ankle RT min 3V IMPRESSION: Normal right ankle.
[2021-06-02 02:42] VITALS: BP 142/98; PULSE 116; O2SAT 98
[2021-06-02 02:47] VITALS: BP 135/79; PULSE 111; RESP 18; TEMP 37.1; O2SAT 95; BMI 35.9
--- NOTE | 2021-06-02 03:19 | ED_ITS ---
HPI - General Adult General Chief complaint: General Medical Stated complaint: FOOT PAIN WITH NAUSEA Time Seen by Provider: 06/02/21 03:19 Source: patient Mode of arrival: EMS History of Present Illness HPI narrative: 26-year-old male with significant past medical history of schizophrenia who presents via EMS with complaining of abdominal pain after eating [employer] but denies any nausea,vomiting, or diarrhea. In addition, patient complaints of right foot/ankle pain and swelling without known trauma. Related Data Previous Rx's Medication Instructions Recorded metoprolol succinate 25 mg 25 mg PO DAILY #30 tab 06/01/21 tablet,extended release 24 hr risperidone 3 mg tablet 3 mg PO BID #60 tab 06/01/21 trazodone 50 mg tablet 50 mg PO BEDTIME PRN #30 tab 06/01/21 Allergies Allergy/AdvReac Type Severity Reaction Status Date / Time No Known Allergies Allergy Verified 06/02/21 02:46 [No Known Allergies*] Review of Systems Review of Systems: Pertinent positives and negatives as stated in HPI 10 point review of systems is otherwise negative. PMFSH Past Medical History Source: nursing notes reviewed Social History Social History Household Members: None Household Members Other:: 0 Housing: Apartment Unable to assess alcohol history related to: Refusing to respond Alcohol intake: current Alcohol intake frequency: a few times a month Patient Tobacco Use Status: Former Tobacco user Tobacco use type: Cigarette Second Hand Smoke Exposure: No Substance Use Type: Marijuana Advance Directives: No service: No Sexual orientation: Did not discuss Physical Exam Vital Signs: Vital Signs: Last Vital Signs Temp 98.8 F 06/02/21 02:47 Pulse 100 06/02/21 05:14 Resp 24 H 06/02/21 05:14 BP 145/82 H 06/02/21 05:14 Pulse Ox 92 06/02/21 05:14 Body Mass Index 35.9 VITAL SIGNS: Reviewed. GENERAL: Well developed, well nourished, in no acute distress. HEAD: Normocephalic/atraumatic EYES: PERRLA, EOMI EARS: Ext canals without abnormality OROPHARYNX: no oral lesions noted, posterior pharynx clear LUNGS: Normal breath sounds. No adventitious sounds or accessory muscle use. SpO2<95> CARDIOVASCULAR: Regular rate and rhythm without noted murmurs ABDOMEN: Obese, exam limited by body habitus, Soft, tenderness at epigastric and left upper quadrant non-distended with bowel sounds. RIGHT ANKLE: Mild swelling at the lateral malleolus, warm foot, palpable DP/PT, capillary refill less than 3 seconds. SKIN: Inspection of the skin reveals no rashes, ulcerations, jaundice, pallor, or petechiae. NEUROLOGIC: Alert and oriented x 4. Strength and sensation to light touch were grossly intact x 4 PSYCH: Flat affect, repetitive speaking Course Course Course Narrative: 26-year-old male with history and clinical presentation complicated by patient's underlying schizophrenia which results in repetitive recounting of history and logical relation to abdominal pain in ankle is absent. Will evaluate patient for abdominal discomfort as well as imaged right ankle. Review of all investigations without acute findings and suspect the mildly elevated transaminases are secondary to fatty liver as opposed to acute pathology. Patient declines all IV access and further imaging at this time stating that he is hungry and wants something to drink. He is noted to be otherwise hemodynamically stable, afebrile, and not hypoxic. Review of imaging of patient's right ankle negative for acute fracture dislocation and ankle was placed in Rickie wrap. Medical Decision Making Lab Data Result diagrams: 06/02/21 03:48 06/02/21 03:48 Labs: Lab Results 06/02/21 06/02/21 Range/Units 03:48 03:48 WBC 11.0 H (4.8-10.8) X10*3/uL RBC 4.81 (4.60-5.80) X10*6/uL Hgb 13.9 L (14.0-18.0) g/dl Hct 39.6 L (42-52) % MCV 82.3 (80-98) fL MCH 28.9 (27.0-33.0) pg MCHC 35.1 (31.0-36.0) g/dl RDW 12.3 (11.0-16.0) % Plt Count 269 (160-400) X10*3/uL MPV 9.9 (9.4-12.4) fL Immature Gran % (Auto) 0.5 H (0.0-0.4) % Neut % (Auto) 60.5 (45-73) % Lymph % (Auto) 30.4 (20-40) % Riley % (Auto) 7.2 (2-11) % Eos % (Auto) 1.0 (0-4) % Baso % (Auto) 0.4 (0-2) % Lymph # (Auto) 3.3 (1.2-4.9) X10*3/uL Riley # (Auto) 0.8 (0.1-1.2) X10*3/uL Eos # (Auto) 0.1 (0.0-0.4) X10*3/uL Baso # (Auto) 0.0 (0.0-0.2) X10*3/uL Abs Immat Gran (auto) 0.05 H (0.00-0.03) X10*3/uL Absolute Neuts (auto) 6.6 (2.0-8.3) X10*3/uL Absolute Nucleated RBC 0.000 (0.0-0.012) X10*3/uL Nucleated RBC % (auto) 0.0 (0.0-0.2) /100WBC Sodium 140 (135-145) mmol/L Potassium 3.7 (3.3-5.1) mmol/L Chloride 106 (96-108) mmol/L Carbon Dioxide 23 (22-29) mmol/L Anion Gap 15 (12-20) BUN 13 (9-16) mg/dL Creatinine 0.77 (0.5-1.4) mg/dL Estim Creat Clear Calc 169.5 Estimated GFR > 60 Random Glucose 88 (60-115) mg/dL Calcium 9.8 (8.4-10.2) mg/dL Total Bilirubin 0.6 (0.0-1.0) mg/dL AST 42 H (5-37) U/L ALT 91 H (0-40) U/L Alkaline Phosphatase 87 (39-117) U/L Total Protein 7.6 (6.5-8.0) g/dL Albumin 4.4 (3.5-5.0) g/dL Discharge Plan Discharge Clinical Impression: Schizophrenia, Ankle pain, right Patient Disposition: Home, Self-Care Instructions: Swollen Joint (ED), R.I.C.E. Treatment (ED) Additional Instructions: 1. Resume all home medications as prescribed. 2. Please follow-up with your primary care provider in the next 2-3 days for re- evaluation. 3. You should keep the Rickie wrap in place for additional support while walking. Otherwise, recommend [id number] Tylenol/ibuprofen as needed for pain control as well as application ice for 10-15 minutes, 3 to 4 times a day. Return to the ER for acute worsening of symptoms. Prescriptions: No Action trazodone 50 mg Tablet 50 mg PO BEDTIME PRN (Reason: Insomnia) Qty: 30 RF: 0 risperidone 3 mg Tablet 3 mg PO BID Qty: 60 RF: 0 metoprolol succinate 25 mg Tablet Extended Release 24 Hr 25 mg PO DAILY Qty: 30 RF: 0 Referrals: Rand Stover MD [Primary Care Provider] - 2 days
[2021-06-02 03:53] LABS: Basophils Percent Auto 0.4 % (0-2); Eosinophils Absolute Auto 0.1 X10*3/uL (0.0-0.4); Hematocrit 39.6 % (42-52); Hemoglobin 13.9 g/dl (14.0-18.0); Imm Gran Abs Auto 0.05 X10*3/uL (0.00-0.03); Imm Gran Pct Auto 0.5 % (0.0-0.4); Lymphocytes Absolute Auto 3.3 X10*3/uL (1.2-4.9); Lymphocytes Percent Auto 30.4 % (20-40); MANUAL DIFF FLAG NO; Mean Corpuscular HGB Conc 35.1 g/dl (31.0-36.0); Mean Corpuscular Hemoglobin 28.9 pg (27.0-33.0); Mean Corpuscular Volume 82.3 fL (80-98); Mean Platelet Volume 9.9 fL (9.4-12.4); Monocytes Absolute Auto 0.8 X10*3/uL (0.1-1.2); Monocytes Percent Auto 7.2 % (2-11); Neutrophils Absolute Auto 6.6 X10*3/uL (2.0-8.3); Neutrophils Percent Auto 60.5 % (45-73); Platelet Count 269 X10*3/uL (160-400); Red Blood Count 4.81 X10*6/uL (4.60-5.80); Red Cell Distribution Width 12.3 % (11.0-16.0)
[2021-06-02 04:34] LABS: Alanine Aminotransferase 91 U/L (0-40); Albumin Level 4.4 g/dL (3.5-5.0); Alkaline Phosphatase 87 U/L (39-117); Anion Gap 15 (12-20); Aspartate Amino Transferase 42 U/L (5-37); Bilirubin Total 0.6 mg/dL (0.0-1.0); Blood Urea Nitrogen 13 mg/dL (9-16); Calcium 9.8 mg/dL (8.4-10.2); Carbon Dioxide 23 mmol/L (22-29); Chloride 106 mmol/L (96-108); Creatinine Clr Calc Pharmacy 169.5; Estimated Glomerular Filt Rate > 60; Glucose Random 88 mg/dL (60-115); Potassium 3.7 mmol/L (3.3-5.1); Sodium 140 mmol/L (135-145); Total Protein 7.6 g/dL (6.5-8.0)
[2021-06-02 05:14] VITALS: BP 145/82; PULSE 100; RESP 24; O2SAT 92
--- NOTE | 2021-06-02 05:28 | PC.NURSE ---
Rn to beside for IV insertion per orders for ABD CT w contrast. Pt continues to request something to drink despite staff telling him numerous times that he cannot eat or drink until the MD has given the approval. Pt aware that due to abdominal pain and elevated LFTs he would require imaging and IV insertion for the imaging. Pt reported my stomach hurts joe I don't got nothing in it , this RN attempted to explain the rationale as to why pt are kept NPO until results from imaging obtained however he was unable to understand or comply. pt refused to have an IV inserted; MD aware and will speak with him. 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 Pt noted to be with dry skin no visible perspiration or diaphoresis noted by this RN while at bedside and when the pt was informed he stated I'm sweating inside . RN will continue to monitor.
--- NOTE | 2021-06-02 05:51 | PC.NURSE ---
Per MD Jain, pt to have right ankle wrapped, be given food and beverage per request and discharged home. Per MD pt reporting only reason his abdomen is hurting is because he hasn't eaten and is hungry. pt provided with sandwich and gingerale; Rn offered additional items such as jello/pudding but he declined.
== END 2021-06-02 07:00 | disposition home or self-care (01) ==
PROVIDERS: Emergency Provider Student in an Organized Health Care Education/Training Program; PCP Family Medicine
DX: F20.9 Schizophrenia, unspecified (principal); M25.571 Pain in right ankle and joints of right foot
CPT/HCPCS: 36415; 73610; 80053; 85025; 99283; 99284

== ENCOUNTER 2021-06-03 01:56 | Emergency (ER) | payer MEDICARE, MEDICAID, SELFPAY ==
[2021-06-03 01:58] VITALS: BP 153/98; PULSE 107; RESP 16; TEMP 35.9; O2SAT 97; BMI 38.0
--- NOTE | 2021-06-03 02:50 | ED.DENTAL ---
HPI - Dental/Oral General Chief complaint: Dental/Oral Stated complaint: toothache Time Seen by Provider: 06/03/21 02:50 Source: patient Mode of arrival: ambulatory History of Present Illness HPI Narrative: 26-year-old male comes in with right upper dental pain that is causing him to have pain up into his right cheek area but denies fever, chills, difficulty swallowing or breathing. Related Data Previous Rx's Medication Instructions Recorded metoprolol succinate 25 mg 25 mg PO DAILY #30 tab 06/01/21 tablet,extended release 24 hr risperidone 3 mg tablet 3 mg PO BID #60 tab 06/01/21 trazodone 50 mg tablet 50 mg PO BEDTIME PRN #30 tab 06/01/21 amoxicillin 875 mg-potassium 1 tab PO Q12H 7 Days #14 tab 06/03/21 clavulanate 125 mg tablet (Augmentin) Allergies Allergy/AdvReac Type Severity Reaction Status Date / Time No Known Allergies Allergy Verified 06/02/21 02:46 [No Known Allergies*] Review of Systems Review of Systems: Pertinent positives and negatives as stated in HPI 10 point review of systems is otherwise negative. PMFSH Past Medical History Source: nursing notes reviewed Social History Social History Household Members: None Household Members Other:: 0 Housing: Apartment Unable to assess alcohol history related to: Refusing to respond Alcohol intake: current Alcohol intake frequency: a few times a month Patient Tobacco Use Status: Former Tobacco user Tobacco use type: Cigarette Second Hand Smoke Exposure: No Substance Use Type: Marijuana Advance Directives: No Advance Directives Information Provided: No service: No Sexual orientation: Did not discuss Physical Exam Vital Signs: Vital Signs: Last Vital Signs Temp 96.6 F L 06/03/21 01:58 Pulse 107 H 06/03/21 01:58 Resp 16 06/03/21 01:58 BP 153/98 H 06/03/21 01:58 Pulse Ox 97 06/03/21 01:58 Body Mass Index 38.0 VITAL SIGNS: Reviewed. GENERAL: Well developed, well nourished, in no acute distress. HEAD: Normocephalic/atraumatic EYES: PERRLA, EOMI EARS: Ext canals without abnormality OROPHARYNX: no oral lesions noted, posterior pharynx clear, noted dental nik right upper tooth with some surrounding gingival swelling LUNGS: Normal breath sounds. No adventitious sounds or accessory muscle use. SpO2<97> CARDIOVASCULAR: Regular rate and rhythm without noted murmurs ABDOMEN: Soft, non-tender, non-distended with bowel sounds. SKIN: Inspection of the skin reveals no rashes NEUROLOGIC: Alert and oriented x 4. Strength and sensation to light touch were grossly intact x 4. Course Course Course Narrative: 26-year-old male with history and clinical presentation consistent with dental nik and tooth pain/infection. No evidence for systemic symptoms, patient was provided with local as well as combination analgesics and initial antibiotics and then discharged with remaining course with instructions to follow up with the dentist on Saturday. Discharge Plan Discharge Clinical Impression: Toothache, Dental caries Patient Disposition: Home, Self-Care Instructions: Toothache (ED) Additional Instructions: 1. Complete the entire course of antibiotics that you have been prescribed and call your dentist on Saturday. Return to the ER for acute worsening of symptoms. Prescriptions: New amoxicillin-pot clavulanate [Augmentin] 875-125 mg tablet 1 tab PO Q12H 7 Days Qty: 14 RF: 0 No Action trazodone 50 mg Tablet 50 mg PO BEDTIME PRN (Reason: Insomnia) Qty: 30 RF: 0 risperidone 3 mg Tablet 3 mg PO BID Qty: 60 RF: 0 metoprolol succinate 25 mg Tablet Extended Release 24 Hr 25 mg PO DAILY Qty: 30 RF: 0 Referrals: Physician,Unknown [Primary Care Provider] - 2 days
[2021-06-03] MEDS: Acetaminophen 325 MG TABLET 975 MG PO (02:57)
[2021-06-03] MEDS: Ibuprofen 400 MG TABLET PO (02:58)
[2021-06-03] MEDS: Amoxicillin/Potassium Clav 875 MG TABLET PO (02:58)
--- NOTE | 2021-06-03 03:02 | PC.NURSE ---
pt medicated as per emar.
== END 2021-06-03 04:32 | disposition home or self-care (01) ==
PROVIDERS: Emergency Provider Student in an Organized Health Care Education/Training Program
DX: K08.89 Other specified disorders of teeth and supporting structures (principal); K02.9 Dental caries, unspecified; F17.210 Nicotine dependence, cigarettes, uncomplicated; F12.90 Cannabis use, unspecified, uncomplicated
CPT/HCPCS: 99283

== ENCOUNTER 2021-06-08 23:42 | Emergency (ER) | payer MEDICARE, MEDICAID, SELFPAY ==
--- NOTE | ~2021-06-08 | XR_ITS ---
EXAMINATION: XR CHEST CLINICAL INFORMATION: Chest pain COMPARISON: 01/25/2017 TECHNIQUE: Frontal view of the chest was obtained. FINDINGS: No significant abnormality is noted involving the heart, lungs, mediastinum, bony thorax or soft tissues. XR/XR chest 1V IMPRESSION: Unremarkable examination.
--- NOTE | ~2021-06-08 | CT_ITS ---
EXAMINATION: CT HEAD WITHOUT CONTRAST CLINICAL INFORMATION: Headache COMPARISON: None TECHNIQUE: Contiguous axial imaging was performed from the skull base to vertex without intravenous administration of contrast. This CT examination was performed using dose optimization techniques as appropriate, variously including the following: *Automated exposure control *Adjustment of mA and/or kV according to patient size (this includes techniques or standardized protocols for targeted exams where dose is matched to indication/reason for exam; i.e. extremities or head) *Use of iterative reconstruction technique DLP: 768 mGy-cm FINDINGS: There is no evidence of acute intracranial hemorrhage or territorial infarction. No abnormal mass effect or midline shift is seen. Luciano to white matter differentiation is well preserved. No extra-axial fluid collections are identified. The ventricles are normal in size. There is no abnormal attenuation within the brain parenchyma. The osseous structures and soft tissues are normal. The mastoid air cells and visualized portions of the paranasal sinuses are well aerated. CT/CT head/brain wo con IMPRESSION: No acute intracranial pathology.
--- NOTE | 2021-06-08 23:59 | ECG_ITS ---
Test Reason : CHEST PAIN Blood Pressure : / mmHG Vent. Rate : 106 BPM Atrial Rate : 106 BPM P-R Int : 150 ms QRS Dur : 086 ms QT Int : 330 ms P-R-T Axes : 045 076 043 degrees QTc Int : 438 ms Sinus tachycardia Otherwise normal ECG When compared with ECG of 25-MAY-2021 08:47, Referred By: Mahad Joseph Electronically Signed By:Fernandez Jackson
[2021-06-09 00:03] VITALS: BP 133/82; PULSE 114; RESP 16; TEMP 37.4; O2SAT 96; BMI 51.0
--- NOTE | 2021-06-09 00:39 | PC.NURSE ---
pt to room #1, ambulating around room, eating cheetos, and states i got hot from taking a shower and my chest started getting tight. pt chg into gown and awaiting MD's eval. Will continue to monitor pt.
--- NOTE | 2021-06-09 00:55 | ECG_ITS ---
Test Reason : CP Blood Pressure : / mmHG Vent. Rate : 091 BPM Atrial Rate : 091 BPM P-R Int : 146 ms QRS Dur : 086 ms QT Int : 360 ms P-R-T Axes : 021 083 048 degrees QTc Int : 442 ms Normal sinus rhythm Normal ECG When compared with ECG of 08-JUN-2021 23:59, No significant change was found Referred By: Mahad Joseph Electronically Signed By:Fernandez Jackson
--- NOTE | 2021-06-09 01:13 | ED_ITS ---
HPI - Chest Pain General Chief Complaint: Chest Pain Stated Complaint: Cough, SoB, Chest Pain Time Seen by Provider: 06/09/21 00:54 Source: patient Mode of arrival: ambulatory Limitations: no limitations History of Present Illness HPI narrative: 26-year-old male came in for evaluation of chest pain and headache started 1 day ago, patient has been coughing causing the patient to have chest pain and occipital headache every time is coughing, patient declined any photophobia, no neck stiffness, no fever, no chills, no recent sick contacts, no recent travel. Chest pain only with coughing, no radiation, no other associated symptoms except headache, pain goes away when not coughing. Patient declined any family history of coronary artery disease at young age. Patient is nonsmoker. Related Data Previous Rx's Medication Instructions Recorded metoprolol succinate 25 mg 25 mg PO DAILY #30 tab 06/01/21 tablet,extended release 24 hr risperidone 3 mg tablet 3 mg PO BID #60 tab 06/01/21 trazodone 50 mg tablet 50 mg PO BEDTIME PRN #30 tab 06/01/21 amoxicillin 875 mg-potassium 1 tab PO Q12H 7 Days #14 tab 06/03/21 clavulanate 125 mg tablet (Augmentin) Allergies Allergy/AdvReac Type Severity Reaction Status Date / Time No Known Allergies Allergy Verified 06/02/21 02:46 [No Known Allergies*] Review of Systems Review of Systems: All other systems are reviewed and are negative Constitutional: Reports as per HPI and Reports no additional constitutional complaints Eyes: Reports as per HPI and Reports no additional eye complaints Reports system reviewed and no additional complaints, except as documented Cardiovascular: Reports as per HPI and Reports no additional cardiovascular complaints Respiratory: Reports as per HPI and Reports no additional respiratory complaints Gastrointestinal: Reports as per HPI and Reports no additional gastrointestinal complaints Genitourinary: Reports no additional female genitourinary complaints Musculoskeletal: Reports no additional musculoskeletal complaints Skin/Breast: Reports system reviewed and no additional complaints, except as docu Psychiatric: Reports no additional psychiatric complaints Endocrine: Reports no additional endocrine complaints Hematologic/Lymphatic: Reports no additional hematologic/lymphatic complaints Allergic/Immunologic: Reports no additional allergic/immunologic complaints Reports system reviewed and no additional complaints, except as documented and Reports Abnormal speech present [facility] Social History Social History Household Members: None Household Members Other:: 0 Housing: Apartment Unable to assess alcohol history related to: Refusing to respond Alcohol intake: current Alcohol intake frequency: a few times a month Patient Tobacco Use Status: Former Tobacco user Tobacco use type: Cigarette Second Hand Smoke Exposure: No Substance Use Type: Marijuana Advance Directives: No Advance Directives Information Provided: No service: No Sexual orientation: Did not discuss Physical Exam Vital Signs: Vital Signs: Last Vital Signs Temp 99.3 F 06/09/21 00:03 Pulse 114 H 06/09/21 00:03 Resp 16 06/09/21 00:03 BP 133/82 06/09/21 00:03 Pulse Ox 96 06/09/21 00:03 Body Mass Index 51.0 Vital signs have been reviewed as appeared to be correct. Blood pressure normal. Heart rate is rapid. Respiration rate normal. Temperature normal. Oxygen saturation normal. Appearance: Alert. Oriented X3. No acute distress. Head: Normal external exam. Normocephalic. Atraumatic. No Kirk signs noted. No raccoon eyes noted Eyes: PERRLA. EOMI. Conjunctiva and sclera normal. Eyelids normal. ENT: TM's Normal. Pharynx normal. Uvula midline. Moist mucous membranes. No trismus noted. No drooling noted. No muffled voice noted. Neck: Normal inspection. Neck supple. FROM. No adenopathy. Thyroid Normal. No meningeal signs. No neck mass noted. CVS: Normal heart rate and rhythm. Heart sound normal. No murmurs noted. Pulses normal throughout. Respiratory: No respiratory distress. Painless inspiration. Breath sounds normal. No wheezes/rales/rhonchi noted. Chest nontender. No accessory muscle usage noted or decreased air movement noted. Abdomen: Soft and nontender. Bowel sounds normal in all 4 quadrants. No distention noted. No organomegaly noted. No visible injury noted. Back: No CVA tenderness. Full range of motion noted. Skin: Skin warm and dry. Normal skin color. Normal skin turgor. No rashes/lesions/lacerations noted. Extremities: No lower extremity edema. Extremities exhibit normal range of motion. Extremities nontender. Neuro: Oriented X 3. Cranial nerve exam: II-XII are grossly intact No motor deficit. No sensory deficit. Reflexes normal. Course Course Course Narrative: Assessment and plan. 26 years old male came in for evaluation of headache only when he coughs, and chest pain was coughs, patient has unremarkable chest x-ray, unremarkable EKG, and normal troponin patient has been sleeping in no apparent distress. MDM - Chest Pain Medical Records Data Attestation: I reviewed the patient's medical records. Lab Data Attestation: I reviewed the patient's lab results. Labs: Lab Results 06/09/21 06/09/21 Range/Units 01:36 01:36 Troponin I High Sens < 3.5 (<3.5-35.0) ng/L Coronavirus (PCR) NEGATIVE (Negative) Influenza Type A (PCR) NEGATIVE (Negative) Influenza Type B (PCR) NEGATIVE (Negative) RSV RNA Qual (PCR) NEGATIVE (Negative) Imaging Data Chest x-ray: Radiologist's impression: No acute pathology CT scan - head: Radiologist's impression: No acute pathology ECG Data ECG #1: Interpretation: Normal sinus rhythm at 91 beats per minute, normal intervals, no ST-T changes. Discharge Plan Discharge Clinical Impression: Atypical chest pain, Headache, Cough in adult Patient Disposition: Home, Self-Care Instructions: Acute Cough (ED) Prescriptions: No Action amoxicillin-pot clavulanate [Augmentin] 875-125 mg tablet 1 tab PO Q12H 7 Days Qty: 14 RF: 0 trazodone 50 mg Tablet 50 mg PO BEDTIME PRN (Reason: Insomnia) Qty: 30 RF: 0 risperidone 3 mg Tablet 3 mg PO BID Qty: 60 RF: 0 metoprolol succinate 25 mg Tablet Extended Release 24 Hr 25 mg PO DAILY Qty: 30 RF: 0 Referrals: Physician,Unknown [Primary Care Provider] - 2 days
--- NOTE | 2021-06-09 01:15 | PC.NURSE ---
labs being drawn to lab for eval. swab obtained to lab. will continue to monitor pt.
[2021-06-09] MEDS: Ibuprofen 800 MG TABLET PO (01:26)
[2021-06-09 02:09] LABS: Troponin-I High Sensitivity < 3.5 ng/L (<3.5-35.0)
[2021-06-09 02:24] LABS: Influenza A PCR NEGATIVE (Negative); Influenza B PCR NEGATIVE (Negative); Resp Syncy Virus RNA Qual PCR NEGATIVE (Negative); SARS COV2 PCR INHOUSE NEGATIVE (Negative)
== END 2021-06-09 03:10 | disposition home or self-care (01) ==
PROVIDERS: Emergency Provider Emergency Medicine
DX: R07.89 Other chest pain (principal); R51.9 Headache, unspecified; R05 Cough; Z20.822 Contact with and (suspected) exposure to COVID-19
CPT/HCPCS: 0241U; 36415; 70450; 71045; 84484; 93005; 99283; 99284

== ENCOUNTER 2021-06-10 21:39 | Emergency (ER) | payer MEDICARE, MEDICAID, SELFPAY ==
[2021-06-10 21:48] VITALS: BP 131/79; PULSE 113; RESP 16; TEMP 36.3; O2SAT 93; BMI 35.9
--- NOTE | 2021-06-10 21:56 | ED_ITS ---
HPI - Psych General Chief Complaint: Psychiatric Symptoms Stated Complaint: crisis Time Seen by Provider: 06/10/21 23:10 Source: patient Mode of arrival: ambulatory Limitations: no limitations History of Present Illness HPI Narrative: 26-year-old male with past medical history paranoid schizophrenia presents with anxiety. States that he has not been taking his medications because he ran out of them, and states feelings at this time. Patient does not report any other concerning symptoms. Denies SI, HI, and any physical complaints at this time. MD complaint: anxiety Onset (ago): unknown Duration: intermittent History of same: Yes Relieving factors: none Context: not taking psychiatric medications Associated psychiatric symptoms: depression Associated symptoms: denies other symptoms Treatments prior to arrival: none Related Data Previous Rx's Medication Instructions Recorded risperidone 3 mg tablet 3 mg PO BID #60 tab 06/01/21 trazodone 50 mg tablet 50 mg PO BEDTIME PRN #30 tab 06/01/21 amoxicillin 875 mg-potassium 1 tab PO Q12H 7 Days #14 tab 06/03/21 clavulanate 125 mg tablet (Augmentin) Allergies Allergy/AdvReac Type Severity Reaction Status Date / Time No Known Allergies Allergy Verified 06/02/21 02:46 [No Known Allergies*] Review of Systems Review of Systems: Constitutional: No Fever, No Chills ENT/Mouth: No Ear Pain, No Nasal Congestion, No sore throat Eyes: No Eye Pain, No Swelling, No Redness Cardiovascular: No Chest Pain, No SOB Respiratory: No Cough, No Sputum, No Dyspnea Gastrointestinal: No Nausea, No Vomiting, No Diarrhea, No Hematochezia, No Melena Genitourinary: No Dysuria, No Urinary Frequency, No Hematuria Musculoskeletal: No Myalgias Skin: No Skin Lesions, No rash Neuro: No Weakness, No Numbness, No Paresthesias, No Dizziness, No Headache Psych: positive Anxiety, no Depression, no SI/HI Heme/Lymph: No Lymphadenopathy Endocrine: No Polyuria, No Polydipsia Yes all other systems are reviewed and are negative [facility] Past Medical History Attestation statement: The following information was validated with the patient. Source: old records reviewed Social History Social History Household Members: None Household Members Other:: 0 Housing: Apartment Unable to assess alcohol history related to: Refusing to respond Alcohol intake: current Alcohol intake frequency: a few times a month Patient Tobacco Use Status: Former Tobacco user Tobacco use type: Cigarette Second Hand Smoke Exposure: No Substance Use Type: Marijuana Advance Directives: No Advance Directives Information Provided: Yes service: No Sexual orientation: Did not discuss Physical Exam Vital Signs: Vital Signs: Last Vital Signs Temp 96.5 F L 06/11/21 00:00 Pulse 106 H 06/11/21 00:00 Resp 18 06/11/21 00:00 BP 131/81 06/11/21 00:00 Pulse Ox 96 06/11/21 00:00 Body Mass Index 35.9 Appearance: Alert. Oriented X3. Mild emotional distress. Eyes: Pupils equal, round and reactive to light. EOMI, sclera nonicteric ENT: Pharynx normal. Moist mucous membranes Neck: Normal inspection. Neck supple. CVS: Normal heart rate and rhythm. Pulses normal. Respiratory: No respiratory distress. Breath sounds normal. Abdomen: Soft and nontender. Skin: Skin warm and dry. Normal skin color. Normal skin turgor. Extremities: No lower extremity edema. Gait well balanced well coordinated Neuro: No motor deficit. No sensory deficit. Cranial nerves 2-12 intact Course Course Course Narrative: 26-year-old male presents for anxiety and medication noncompliance. States that he is out of his meds has not taken them in a few days. Is not report any suicidal or homicidal ideation. Will order lab values, and crisis consult. 10:46 p.m. patient continues to refuse lab values. States he is only here for anxiety. He continues to deny SI and HI, denies auditory visual hallucinations at this time. RN stated that patient wanted to leave, is not suicidal or homicidal. 11:31 p.m. patient's behavior has escalated, appears to be manic and agitated, after multiple interventions with this CABLE COVERER and multiple RNs, patient has agreed to and allowed lab values, has taken p.o. medications, and will continue to stay for proper N consult. Section 12 filled out for this patient for sunni. physician observation started at this time. MDM - Psych Differential Diagnosis Differential diagnosis: Likely acute psychosis, acute anxiety and schizoaffective disorder Lab Data Attestation: I reviewed the patient's lab results. Result diagrams: 08/07/21 23:14 Labs: Lab Results 06/10/21 06/10/21 06/10/21 Range/Units 22:30 22:34 23:14 WBC 7.7 (4.8-10.8) X10*3/uL RBC 4.90 (4.60-5.80) X10*6/uL Hgb 14.2 (14.0-18.0) g/dl Hct 41.9 L (42-52) % MCV 85.5 (80-98) fL MCH 29.0 (27.0-33.0) pg MCHC 33.9 (31.0-36.0) g/dl RDW 12.3 (11.0-16.0) % Plt Count 309 (160-400) X10*3/uL MPV 10.1 (9.4-12.4) fL Immature Gran % (Auto) 0.5 H (0.0-0.4) % Neut % (Auto) 41.9 L (45-73) % Lymph % (Auto) 42.8 H (20-40) % [place] % (Auto) 9.4 (2-11) % Eos % (Auto) 4.9 H (0-4) % Baso % (Auto) 0.5 (0-2) % Lymph # (Auto) 3.3 (1.2-4.9) X10*3/uL [place] # (Auto) 0.7 (0.1-1.2) X10*3/uL Eos # (Auto) 0.4 (0.0-0.4) X10*3/uL Baso # (Auto) 0.0 (0.0-0.2) X10*3/uL Abs Immat Gran (auto) 0.04 H (0.00-0.03) X10*3/uL Absolute Neuts (auto) 3.2 (2.0-8.3) X10*3/uL Absolute Nucleated RBC 0.000 (0.0-0.012) X10*3/uL Nucleated RBC % (auto) 0.0 (0.0-0.2) /100WBC Urine Opiates Screen Not Detected (Not Detect) Ur Barbiturates Screen Not Detected (Not Detect) Ur Phencyclidine Scrn Not Detected (Not Detect) Ur Amphetamines Screen Not Detected (Not Detect) U Benzodiazepines Scrn Not Detected (Not Detect) Urine Cocaine Screen Not Detected (Not Detect) U Marijuana (THC) Screen Not Detected (Not Detect) Ethyl Alcohol mg/dL Coronavirus (PCR) NEGATIVE (Negative) Influenza Type A (PCR) NEGATIVE (Negative) Influenza Type B (PCR) NEGATIVE (Negative) RSV RNA Qual (PCR) NEGATIVE (Negative) 06/10/21 Range/Units 23:14 WBC (4.8-10.8) X10*3/uL RBC (4.60-5.80) X10*6/uL Hgb (14.0-18.0) g/dl Hct (42-52) % MCV (80-98) fL MCH (27.0-33.0) pg MCHC (31.0-36.0) g/dl RDW (11.0-16.0) % Plt Count (160-400) X10*3/uL MPV (9.4-12.4) fL Immature Gran % (Auto) (0.0-0.4) % Neut % (Auto) (45-73) % Lymph % (Auto) (20-40) % [place] % (Auto) (2-11) % Eos % (Auto) (0-4) % Baso % (Auto) (0-2) % Lymph # (Auto) (1.2-4.9) X10*3/uL [place] # (Auto) (0.1-1.2) X10*3/uL Eos # (Auto) (0.0-0.4) X10*3/uL Baso # (Auto) (0.0-0.2) X10*3/uL Abs Immat Gran (auto) (0.00-0.03) X10*3/uL Absolute Neuts (auto) (2.0-8.3) X10*3/uL Absolute Nucleated RBC (0.0-0.012) X10*3/uL Nucleated RBC % (auto) (0.0-0.2) /100WBC Urine Opiates Screen (Not Detect) Ur Barbiturates Screen (Not Detect) Ur Phencyclidine Scrn (Not Detect) Ur Amphetamines Screen (Not Detect) U Benzodiazepines Scrn (Not Detect) Urine Cocaine Screen (Not Detect) U Marijuana (THC) Screen (Not Detect) Ethyl Alcohol < 10 mg/dL Coronavirus (PCR) (Negative) Influenza Type A (PCR) (Negative) Influenza Type B (PCR) (Negative) RSV RNA Qual (PCR) (Negative) Discharge Plan Discharge Clinical Impression: Acute anxiety Instructions: Anxiety (ED) Additional Instructions: You were evaluated for anxiety. Follow-up with outpatient psychiatry. Thank you for choosing this emergency department for evaluation. Please follo w-up with primary care physician as needed. Return to the emergency department for any new, concerning, or worsening symptoms. Prescriptions: No Action amoxicillin-pot clavulanate [Augmentin] 875-125 mg tablet 1 tab PO Q12H 7 Days Qty: 14 RF: 0 trazodone 50 mg Tablet 50 mg PO BEDTIME PRN (Reason: Insomnia) Qty: 30 RF: 0 risperidone 3 mg Tablet 3 mg PO BID Qty: 60 RF: 0
--- NOTE | 2021-06-10 22:45 | PC.NURSE ---
Patient refusing to let tech draw blood
--- NOTE | 2021-06-10 22:47 | PC.NURSE ---
Patient was asked again if he was si or hi and denied both. exchange mechanic was made aware
[2021-06-10 23:10] LABS: Amphetamine Screen Urine Not Detected (Not Detect); Barbiturates, Urine Not Detected (Not Detect); Benzodiazepines Screen Urine Not Detected (Not Detect); Cannabinoid Screen Urine Not Detected (Not Detect); Cocaine Screen Urine Not Detected (Not Detect); Opiate Screen Urine Not Detected (Not Detect); Phencyclidine Screen Urine Not Detected (Not Detect)
[2021-06-10] MEDS: HaloperidoL 5 MG TABLET PO (23:13)
[2021-06-10] MEDS: OLANZapine 10 MG TABLET PO (23:13)
[2021-06-10] MEDS: LORazepam 1 MG TABLET 2 MG PO (23:13)
[2021-06-10 23:16] LABS: Influenza A PCR NEGATIVE (Negative); Influenza B PCR NEGATIVE (Negative); Resp Syncy Virus RNA Qual PCR NEGATIVE (Negative); SARS COV2 PCR INHOUSE NEGATIVE (Negative)
[2021-06-10 23:19] LABS: MANUAL DIFF FLAG NO
[2021-06-10 23:20] LABS: Basophils Percent Auto 0.5 % (0-2); Eosinophils Absolute Auto 0.4 X10*3/uL (0.0-0.4); Eosinophils Percent Auto 4.9 % (0-4); Hematocrit 41.9 % (42-52); Hemoglobin 14.2 g/dl (14.0-18.0); Imm Gran Abs Auto 0.04 X10*3/uL (0.00-0.03); Imm Gran Pct Auto 0.5 % (0.0-0.4); Lymphocytes Absolute Auto 3.3 X10*3/uL (1.2-4.9); Lymphocytes Percent Auto 42.8 % (20-40); Mean Corpuscular HGB Conc 33.9 g/dl (31.0-36.0); Mean Corpuscular Volume 85.5 fL (80-98); Mean Platelet Volume 10.1 fL (9.4-12.4); Monocytes Absolute Auto 0.7 X10*3/uL (0.1-1.2); Monocytes Percent Auto 9.4 % (2-11); Neutrophils Absolute Auto 3.2 X10*3/uL (2.0-8.3); Neutrophils Percent Auto 41.9 % (45-73); Platelet Count 309 X10*3/uL (160-400); Red Cell Distribution Width 12.3 % (11.0-16.0); White Blood Count 7.7 X10*3/uL (4.8-10.8)
--- NOTE | 2021-06-10 23:37 | PC.NURSE ---
Patient took all med after speaking with charge nurse and provider is aware of need to stay is now a section 12 awaiting med clearance and moose bear
[2021-06-10 23:42] LABS: Ethanol < 10 mg/dL
[2021-06-11] VITALS: BP 131/81; PULSE 106; RESP 18; TEMP 35.8; O2SAT 96
--- NOTE | 2021-06-11 00:06 | PC.NURSE ---
BETSY faxed and called spoke with [employer]ani
[2021-06-11 08:07] VITALS: RESP 16
--- NOTE | 2021-06-11 14:40 | PC.NURSE ---
Pt currently sleeping in back common room awaiting dispo. Pt unwilling to take his meds at this time, simply rolling to his side and ignoring this card writer hand when prompted about meds.
== END 2021-06-11 15:31 | disposition home or self-care (01) ==
PROVIDERS: Nurse Practitioner Family; Emergency Provider Emergency Medicine Emergency Medical Services
DX: F41.9 Anxiety disorder, unspecified (principal); F20.9 Schizophrenia, unspecified; Z91.14 Patient's other noncompliance with medication regimen; Z20.822 Contact with and (suspected) exposure to COVID-19
CPT/HCPCS: 0241U; 36415; 80307; 82077; 85025; 99284; 99285

== ENCOUNTER 2021-06-17 05:10 | Emergency (ER) | payer MEDICARE, MEDICAID, SELFPAY ==
[2021-06-17 05:19] VITALS: BP 119/76; PULSE 92; RESP 18; TEMP 36.1; O2SAT 96; BMI 32.6
--- NOTE | 2021-06-17 05:48 | PC.NURSE ---
Patient compliant with electronic data interchange specialist, patient reporting paranoid delusion that one of the vein in his brain is broken needs to be fixed, per patient he is off his medication, med rec completed /pending provider approval, BETSY referral completed via smart-sheet, called and spoke with Riley MEYER overnight collections specialist, confirmed receipt of referral, will continue to monitor.
[2021-06-17 05:52] LABS: Glucose Urine UA NEG (NEG); Leukocyte Esterase Urine NEG (NEG); Nitrite Urine NEG (NEG); PH 5.5 (5.0-8.0); Specific Gravity - Urine >= 1.030 (1.005-1.025); Urine Blood NEG (NEG); Urine Ketones NEG (NEG); Urine Protein NEG (NEG-TRACE)
[2021-06-17 05:59] LABS: Appearance Urine CLEAR; Color Urine YELLOW
[2021-06-17 06:04] LABS: Amphetamine Screen Urine Not Detected (Not Detect); Barbiturates, Urine Not Detected (Not Detect); Benzodiazepines Screen Urine Not Detected (Not Detect); Calcium Oxalate Crystals Urine TRACE /LPF; Cannabinoid Screen Urine Not Detected (Not Detect); Cocaine Screen Urine Not Detected (Not Detect); Fentanyl, urine Not Detected (Not Detect); Mucus Urine 1+ /LPF; Opiate Screen Urine Not Detected (Not Detect); Phencyclidine Screen Urine Not Detected (Not Detect); RBC Urine 0-2 /HPF (0); Squamous Epithelial Cell Urine TRACE /LPF; WBC Urine 0-2 /HPF (0-4)
[2021-06-17 06:08] LABS: COVID-19 Test Negative (Negative); IDNOW Serial# 9DD0AD1C
--- NOTE | 2021-06-17 06:53 | ED_ITS ---
HPI - Psych General Chief Complaint: Psychiatric Symptoms Stated Complaint: Head Pressure Time Seen by Provider: 06/17/21 06:53 Source: patient and EMS Mode of arrival: EMS Limitations: no limitations History of Present Illness HPI Narrative: 26-year-old male history of schizophrenia, paranoid, patient has been home for 10 days, patient went to the police station asking for health, patient has not been compliant with his psych medication and asking to get his psych medicine, patient otherwise decline SI/HI/acute visual or auditory hallucination. Related Data Home Medications Medication Instructions Recorded Confirmed metoprolol succinate 25 mg 1 tab PO DAILY 06/17/21 06/17/21 tablet,extended release 24 hr risperidone 3 mg tablet 1 tab PO BID 06/17/21 06/17/21 trazodone 50 mg tablet 1 tab PO BEDTIME PRN 06/17/21 06/17/21 Allergies Allergy/AdvReac Type Severity Reaction Status Date / Time No Known Allergies Allergy Verified 06/02/21 02:46 [No Known Allergies*] Review of Systems Review of Systems: All other systems are reviewed and are negative Constitutional: Reports as per HPI and Reports no additional constitutional complaints Eyes: Reports as per HPI and Reports no additional eye complaints Reports system reviewed and no additional complaints, except as documented Cardiovascular: Reports as per HPI and Reports no additional cardiovascular complaints Respiratory: Reports as per HPI and Reports no additional respiratory complaints Gastrointestinal: Reports as per HPI and Reports no additional gastrointestinal complaints Genitourinary: Reports no additional female genitourinary complaints Musculoskeletal: Reports no additional musculoskeletal complaints Skin/Breast: Reports system reviewed and no additional complaints, except as docu Psychiatric: Reports no additional psychiatric complaints Endocrine: Reports no additional endocrine complaints Hematologic/Lymphatic: Reports no additional hematologic/lymphatic complaints Allergic/Immunologic: Reports no additional allergic/immunologic complaints Reports system reviewed and no additional complaints, except as documented and Reports Abnormal speech present [facility] Social History Social History Household Members: None Household Members Other:: 0 Housing: Apartment Unable to assess alcohol history related to: Refusing to respond Alcohol intake: current Alcohol intake frequency: a few times a month Patient Tobacco Use Status: Former Tobacco user Tobacco use type: Cigarette Second Hand Smoke Exposure: No Substance Use Type: Marijuana Advance Directives: No Advance Directives Information Provided: No service: No Sexual orientation: Did not discuss Physical Exam Vital Signs: Vital Signs: Last Vital Signs Temp 97 F 06/17/21 05:19 Pulse 92 06/17/21 08:02 Resp 18 06/17/21 05:19 BP 119/76 06/17/21 08:02 Pulse Ox 96 06/17/21 05:19 Body Mass Index 32.6 Vital signs have been reviewed as appeared to be correct. Blood pressure normal. Heart rate normal. Respiration rate normal. Temperature normal. Oxygen saturation normal. Appearance: Alert. Oriented X3. No acute distress. Head: Normal external exam. Normocephalic. Atraumatic. No Kirk signs noted. No raccoon eyes noted Eyes: PERRLA. EOMI. Conjunctiva and sclera normal. Eyelids normal. ENT: TM's Normal. Pharynx normal. Uvula midline. Moist mucous membranes. No trismus noted. No drooling noted. No muffled voice noted. Neck: Normal inspection. Neck supple. FROM. No adenopathy. Thyroid Normal. No meningeal signs. No neck mass noted. CVS: Normal heart rate and rhythm. Heart sound normal. No murmurs noted. Pulses normal throughout. Respiratory: No respiratory distress. Painless inspiration. Breath sounds normal. No wheezes/rales/rhonchi noted. Chest nontender. No accessory muscle usage noted or decreased air movement noted. Abdomen: Soft and nontender. Bowel sounds normal in all 4 quadrants. No distention noted. No organomegaly noted. No visible injury noted. Back: No CVA tenderness. Full range of motion noted. Skin: Skin warm and dry. Normal skin color. Normal skin turgor. No rashes/lesions/lacerations noted. Extremities: No lower extremity edema. Extremities exhibit normal range of motion. Extremities nontender. Neuro: Oriented X 3. Cranial nerve exam: II-XII are grossly intact No motor deficit. No sensory deficit. Reflexes normal. Patient Appearance: Appropriate Patient Orientation: Person, Place, Time and Situation Level of Consciousness: Awake, Appropriate and Alert Patient Behavior: Talkative, Cooperative. Mood Description: Depressed. Affect Description: Flat. Patient Cognition Impaired: No Ability to Follow Directions: Good Speech Pattern: Spontaneous Speech Memory Description: Intact Hallucinations: Not present. Delusions: Not Present Thought Process: Logical. Thought Content: Unremarkable Depressive Symptoms: Increased anxiety. Judgement: Fair Course Reevaluation(s) Reevaluation #1: Physician observation started at 15:00 . Patient placed in physician observation because the patient needed more time for medication to work and to see [facility] for evaluation and the need for placement patient's vital sign were stable, patient is alert and oriented , neuro exam unchanged, unremarkable rest of physical exam. MDM - Psych Lab Data Labs: Lab Results 06/17/21 06/17/21 06/17/21 Range/Units 05:33 05:39 05:39 Urine Color YELLOW Urine Appearance CLEAR Urine pH 5.5 (5.0-8.0) Ur Specific [place] >= 1.030 H (1.005-1.025) Urine Protein NEG (NEG-TRACE) MG/DL Urine Glucose (UA) NEG (NEG) MG/DL Urine Ketones NEG (NEG) MG/DL Urine Blood NEG (NEG) Urine Nitrite NEG (NEG) Ur Leukocyte Esterase NEG (NEG) Urine RBC 0-2 (0) /HPF Urine WBC 0-2 (0-4) /HPF Ur Squamous Epith Cells TRACE /LPF Calcium Oxalate Crystal TRACE /LPF Urine Bacteria NONE /LPF Urine Mucus 1+ /LPF Urine Opiates Screen Not Detected (Not Detect) Urine Fentanyl Screen Not Detected (Not Detect) Ur Barbiturates Screen Not Detected (Not Detect) Ur Phencyclidine Scrn Not Detected (Not Detect) Ur Amphetamines Screen Not Detected (Not Detect) U Benzodiazepines Scrn Not Detected (Not Detect) Urine Cocaine Screen Not Detected (Not Detect) U Marijuana (THC) Screen Not Detected (Not Detect) COVID-19 (TUSHAR) Negative (Negative) COVID-19 Clin Com See Note Discharge Plan Discharge Clinical Impression: Chronic schizophrenia, Schizophrenia, paranoid, chronic with acute exacerbation Prescriptions: No Action trazodone 50 mg tablet 1 tab PO BEDTIME PRN (Reason: insomnia) RF: 0 risperidone 3 mg tablet 1 tab PO BID RF: 0 metoprolol succinate 25 mg tablet extended release 24 hr 1 tab PO DAILY RF: 0
--- NOTE | 2021-06-17 07:18 | PC.NURSE ---
patient moderately restless desiring medication, was just seen by provider, asking to take shower.
[2021-06-17] MEDS: risperiDONE 3 MG TABLET PO ×2 (07:59→20:05)
[2021-06-17 08:02] VITALS: BP 119/76; PULSE 92
--- NOTE | 2021-06-17 17:11 | MHC.CARE ---
Paul unable to send clinician to evaluate pt. CARE team contacted [facility]. This underwriter will meet with pt for evaluation.
[2021-06-17 18:38] VITALS: BP 114/75; PULSE 90; RESP 16
--- NOTE | 2021-06-17 18:39 | PC.NURSE ---
patient complains feels like vein busted in my head reminded client he had declined a med in am. took VS WNL, asked client if he desired a med for anxiety or to receive HS med early, patient declined
[2021-06-17] MEDS: traZODone HCL 50 MG TABLET PO (20:05)
--- NOTE | 2021-06-17 21:19 | MHC.CARE ---
Addendum entered by Chandrika Liriano LCSW 06/18/21 00:16: Sect 12a signed in chart. Original Note: Late entry: CARE team completed evaluation. Disposition is for inpatient psychiatric treatment. Pt is agreeable for admission at this time. No Sect [address] at this time, as he is not an acute risk for harm to himself or others if he discharges. This fiction and nonfiction writer prose attempted to contact pt's aunt, who is the only family contact listed in his medical record, which has been unsuccessful thus far.
--- NOTE | 2021-06-18 06:04 | PC.NURSE ---
Patient slept through the night, out of room x 2, first one per patient he got woken up by the night mare, walked in hallway and went back to sleep, and second for bathroom use and back, VSS, behavior paranoid but non disruptive, med compliant, disposition per care team is section 12 inpatient bed search, will continue to monitor.
--- NOTE | 2021-06-18 07:11 | PC.NURSE ---
patient appears to remain at rest at present patient appears in no distress. respirations are even and unlabored.
[2021-06-18] MEDS: risperiDONE 3 MG TABLET PO (09:38)
== END 2021-06-18 10:39 | disposition home or self-care (01) ==
PROVIDERS: Emergency Provider Emergency Medicine
DX: F20.0 Paranoid schizophrenia (principal); Z20.822 Contact with and (suspected) exposure to COVID-19; F12.90 Cannabis use, unspecified, uncomplicated; Z91.14 Patient's other noncompliance with medication regimen
CPT/HCPCS: 36415; 80307; 81001; 87635; 99284

== ENCOUNTER 2021-06-18 22:35 | Inpatient (IN) | payer MEDICARE, MEDICAID, SELFPAY ==
[2021-06-18 22:42] VITALS: BP 124/77; PULSE 112; RESP 21; TEMP 36.8; O2SAT 97; BMI 32.6
--- NOTE | 2021-06-18 22:44 | ED.PSYCH ---
HPI - Psych General Chief Complaint: Psychiatric Symptoms Stated Complaint: crisis Time Seen by Provider: 06/18/21 22:44 Source: patient, EMS and old records reviewed Mode of arrival: EMS Limitations: no limitations History of Present Illness MD complaint: feels depressed and hallucinations Onset (ago): day(s) Duration: intermittent History of same: Yes Relieving factors: none Context: not taking psychiatric medications Associated psychiatric symptoms: depression and delusions Associated symptoms: denies other symptoms Treatments prior to arrival: none Related Data Home Medications Medication Instructions Recorded Confirmed metoprolol succinate 25 mg 1 tab PO DAILY 06/17/21 06/18/21 tablet,extended release 24 hr risperidone 3 mg tablet 1 tab PO BID 06/17/21 06/18/21 Previous Rx's Medication Instructions Recorded trazodone 50 mg tablet 50 mg PO BEDTIME PRN #5 tab 06/18/21 Allergies Allergy/AdvReac Type Severity Reaction Status Date / Time No Known Allergies Allergy Verified 06/02/21 02:46 [No Known Allergies*] Review of Systems Review of Systems: Constitutional : No Fever, No Chills ENT/Mouth : No Ear Pain, No Nasal Congestion, No sore throat Eyes: No Eye Pain, No Swelling, No Redness Cardiovascular : No Chest Pain, No SOB Respiratory : No Cough, No Sputum, No Dyspnea Gastrointestinal : No Nausea, No Vomiting, No Diarrhea, No Hematochezia, No Melena Genitourinary : No Dysuria, No Urinary Frequency, No Hematuria Musculoskeletal : No Myalgias Skin : No Skin Lesions, No rash Neuro : No Weakness, No Numbness, No Paresthesias, No Dizziness, No Headache Psych : positive Anxiety, positive Depression, no SI/HI Heme/Lymph: No Lymphadenopathy Endocrine : No Polyuria, No Polydipsia All other systems reviewed and are negative [facility] Past Medical History Medical History Schizophrenia, paranoid, chronic with acute exacerbation Social History Social History Household Members: None Household Members Other:: 0 Housing: Apartment Unable to assess alcohol history related to: Refusing to respond Alcohol intake: current Alcohol intake frequency: a few times a month Patient Tobacco Use Status: Former Tobacco user Tobacco use type: Cigarette Second Hand Smoke Exposure: No Substance Use Type: Marijuana Advance Directives: No Advance Directives Information Provided: Yes service: No Sexual orientation: Did not discuss Physical Exam Vital Signs: Vital Signs: Last Vital Signs Temp 98.3 F 06/18/21 22:42 Pulse 112 H 06/18/21 22:42 Resp 21 H 06/18/21 22:42 BP 124/77 06/18/21 22:42 Pulse Ox 97 06/18/21 22:42 Body Mass Index 32.6 Appearance: Alert. Oriented X3. No acute distress. Well kept Eyes: Pupils equal, round and reactive to light. ENT: Pharynx normal. Neck: Normal inspection. Neck supple. CVS: Normal heart rate and rhythm. Pulses normal. Respiratory: No respiratory distress. Breath sounds normal. Abdomen: Soft and nontender. Skin: Skin warm and dry. Normal skin color. Normal skin turgor. Extremities: No lower extremity edema. No calf ttp Neuro: Oriented X 3. No motor deficit. No sensory deficit. CN 2-12 intact Psych: no SI/HI, repeatedly talking about needing a car and girlfriend then 22 news Course Course Course Narrative: Physician observation started at 1052pm Patient placed in physician observation because the patient needed more time CARE team assessment to decide if he needs inpatient care. At the time observation was started the patient's vitals were stable, patient is alert and oriented, Neuro: nonfocal, CV RRR, Lungs clear signed out pending final disposition MDM - Psych MDM Narrative Medical decision making narrative: 26 yo male just discharged this AM from pod - comes back with delusions and depressions, suspect he is not taking his medications - will obtain labs, refer to CARE team Discharge Plan Discharge Clinical Impression: Schizophrenia, paranoid, chronic with acute exacerbation Prescriptions: No Action risperidone 3 mg tablet 1 tab PO BID RF: 0 metoprolol succinate 25 mg tablet extended release 24 hr 1 tab PO DAILY RF: 0 trazodone 50 mg tablet 50 mg PO BEDTIME PRN (Reason: sleep) Qty: 5 RF: 0
[2021-06-18] MEDS: risperiDONE 3 MG TABLET PO (23:23)
--- NOTE | 2021-06-18 23:39 | PC.NURSE ---
Patient refused lab draw, provider notified.
[2021-06-18 23:56] LABS: COVID-19 Test Negative (Negative); IDNOW Serial# 9DD0AD1C
[2021-06-18 23:56] LABS: Amphetamine Screen Urine Not Detected (Not Detect); Barbiturates, Urine Not Detected (Not Detect); Benzodiazepines Screen Urine Not Detected (Not Detect); Cannabinoid Screen Urine Not Detected (Not Detect); Cocaine Screen Urine Not Detected (Not Detect); Fentanyl, urine Not Detected (Not Detect); Opiate Screen Urine Not Detected (Not Detect); Phencyclidine Screen Urine Not Detected (Not Detect)
--- NOTE | 2021-06-19 05:51 | PC.NURSE ---
Patient slept most part of the night, thought process is paranoid and delusional, patient thinks his skin around his neck is falling, no distress observed/reported, patient compliant with only Risperidone, behavior [id number], will continue to monitor.
[2021-06-19 06:10] VITALS: BP 118/64; PULSE 74; RESP 16; TEMP 36.8; O2SAT 97
--- NOTE | 2021-06-19 07:22 | PC.NURSE ---
PT SLEEPING. CLOSE OBSERVATION MAINTAINED. BEDSEARCH CONTINUES
--- NOTE | 2021-06-19 10:26 | PC.NURSE ---
PT REFUSED AM MEDS. NON-VERBAL, WOULD NOT OPEN EYES TO LOOK AT T/W.
[2021-06-19 14:46] VITALS: BP 129/71; PULSE 112; TEMP 36.6; O2SAT 95
--- NOTE | 2021-06-19 16:35 | PC.NURSE ---
Pt ambulatory in department. Refusing labs at this time but calmly. Is hyperverbal but redirectable. States he doesn't want admission to .
[2021-06-19 18:02] LABS: MANUAL DIFF FLAG NO
[2021-06-19 18:04] LABS: Basophils Absolute Auto 0.1 X10*3/uL (0.0-0.2); Basophils Percent Auto 0.6 % (0-2); Eosinophils Absolute Auto 0.2 X10*3/uL (0.0-0.4); Eosinophils Percent Auto 2.5 % (0-4); Hemoglobin 13.8 g/dl (14.0-18.0); Imm Gran Abs Auto 0.04 X10*3/uL (0.00-0.03); Imm Gran Pct Auto 0.4 % (0.0-0.4); Lymphocytes Absolute Auto 3.4 X10*3/uL (1.2-4.9); Lymphocytes Percent Auto 37.2 % (20-40); Mean Corpuscular HGB Conc 34.5 g/dl (31.0-36.0); Monocytes Absolute Auto 0.8 X10*3/uL (0.1-1.2); Monocytes Percent Auto 8.5 % (2-11); Neutrophils Absolute Auto 4.6 X10*3/uL (2.0-8.3); Neutrophils Percent Auto 50.8 % (45-73); Platelet Count 264 X10*3/uL (160-400); Red Blood Count 4.76 X10*6/uL (4.60-5.80); Red Cell Distribution Width 12.1 % (11.0-16.0)
[2021-06-19 18:24] LABS: Anion Gap 13 (12-20); Blood Urea Nitrogen 11 mg/dL (9-16); Calcium 10.2 mg/dL (8.4-10.2); Carbon Dioxide 26 mmol/L (22-29); Chloride 106 mmol/L (96-108); Creatinine Clr Calc Pharmacy 163.8; Estimated Glomerular Filt Rate > 60; Glucose Random 103 mg/dL (60-115); Potassium 4.2 mmol/L (3.3-5.1); Sodium 141 mmol/L (135-145)
--- NOTE | 2021-06-19 18:24 | PC.NURSE ---
pt pacing in pod. still maintains that he'll refuse admission. M5 called but unable to take report at this time.
--- NOTE | 2021-06-19 18:57 | PC.NURSE ---
rn to rn with claudio on M5.
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
--- NOTE | 2021-06-19 21:53 | PC.NURSE ---
Pt signed 3-day notice revoking conditional voluntary admission.
--- NOTE | 2021-06-19 22:03 | PC.NURSE ---
pt signed a 3-day 06/19/21, up on 06/22/21
[2021-06-19] MEDS: Paliperidone ER 6 MG TAB.ER.24 PO (23:04)
--- NOTE | 2021-06-20 00:43 | PC.ADMIT ---
A male aged 26 years was [facility], following referral from [facility]ARE team and [facility] ED. Pt has previous admissions here at [facility] on M-3 and M-5 in May 2021. Pt reports no admissions for Etoh or substances; DIOP was negative in ED. Pt self-presented to [place] [employer] asking for help saying he doesn't feel right . In ED pt presented with a flat affect, said was experiencing a depressed mood and disclosed had stopped taking medications for a period of 10 days. Pt has a history of experiencing hallucinations, paranoia, delusions, SI & HI. Pt speaks Portuguese, but is difficult to understand due to disorganized thinking. In ED-pod, pt was noted to be hyper , restless and seemed to staff there to be aware of this. Pt was somewhat guarded, denying SI/HI, AH/VH. Pt made vague statements about they have keys to his apartment, they talk trash about him etc. Pt was redirectable in milieu. Pt expressed not wanting to be on Risperdal which was discontinued; pt took first dose of Invega 6mg PO HS with out issue volunteering mouthcheck. Pt denied medical issues or pain at this time. Pt is showering late in evening to help settle him; it is noted pt spends a lot of time i shower. Pt reports has no medical issues at this time. [id number] done, admitting orders obtained and initial treatment plan done.
[2021-06-20 06:00] VITALS: PULSE 112; RESP 22; TEMP 36.1; O2SAT 98
[2021-06-20 09:05] VITALS: BP 131/82; PULSE 113
[2021-06-20 09:06] VITALS: BP 131/82; PULSE 113; RESP 16; TEMP 36.4; O2SAT 96
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
[2021-06-20 19:00] VITALS: BP 132/76; PULSE 112; TEMP 36.8
[2021-06-20] MEDS: Paliperidone ER 6 MG TAB.ER.24 PO (20:39)
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
[2021-06-21 09:48] VITALS: BP 130/74; PULSE 124; RESP 16; TEMP 36.5; O2SAT 97
[2021-06-21 17:40] VITALS: BP 118/78; PULSE 130; RESP 18; TEMP 36.4; O2SAT 97
[2021-06-21] MEDS: Acetaminophen 325 MG TABLET 650 MG PO (20:54)
[2021-06-21 20:57] VITALS: TEMP 37.3
[2021-06-21 21:55] LABS: COVID-19 Test Negative (Negative)
[2021-06-22 06:00] VITALS: BP 116/81; PULSE 113; RESP 16; TEMP 36.2; O2SAT 98
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
[2021-06-22 10:43] VITALS: BMI 35.8
[2021-06-22 16:46] VITALS: BMI 36.1
[2021-06-22 17:10] VITALS: BP 121/74; PULSE 109; RESP 18; TEMP 36.6; O2SAT 96
[2021-06-22] MEDS: Paliperidone ER 6 MG TAB.ER.24 PO (22:19)
[2021-06-22] MEDS: Albuterol Sulfate 90 MCG 8 GM INHALER 1 PUFF INHALE (22:54)
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
[2021-06-23] MEDS: Acetaminophen 325 MG TABLET 650 MG PO (16:04)
[2021-06-23 16:26] VITALS: BP 143/68; PULSE 135; TEMP 36.4
[2021-06-24] MEDS: Ibuprofen 600 MG TABLET PO ×2 (01:39→10:59)
--- NOTE | 2021-06-24 02:36 | PC.NURSE ---
Pt reporting pain in perianal area, reporting a lump, refusing male nor female RN to assess the site. Demanding Motrin as prn Tylenol did nothing ; patient became belligerent pacing the halls talking loud demanding to be seen by a doctor; this RN attempted multiple times to explain the process and patient continued to berate staff; a one time PRN Ibuprofen order was obtained by monalisa Gutiérrez NP, which patient accepted then returned to bed.
[2021-06-24 06:00] VITALS: BP 136/70; PULSE 115; RESP 16; TEMP 36.9; O2SAT 97
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
[2021-06-24] MEDS: Aspirin 325 MG TABLET PO (12:07)
[2021-06-24 18:00] VITALS: BP 126/84; PULSE 137; TEMP 38.2
[2021-06-24] MEDS: Acetaminophen 325 MG TABLET 650 MG PO (19:26)
[2021-06-24 20:49] VITALS: BP 128/66; PULSE 117; TEMP 38.2
[2021-06-24 21:54] LABS: MANUAL DIFF FLAG NO
[2021-06-24 21:55] LABS: Basophils Percent Auto 0.2 % (0-2); Eosinophils Absolute Auto 0.2 X10*3/uL (0.0-0.4); Eosinophils Percent Auto 1.2 % (0-4); Hematocrit 40.2 % (42-52); Imm Gran Abs Auto 0.04 X10*3/uL (0.00-0.03); Imm Gran Pct Auto 0.3 % (0.0-0.4); Lymphocytes Absolute Auto 3.1 X10*3/uL (1.2-4.9); Lymphocytes Percent Auto 20.9 % (20-40); Mean Corpuscular HGB Conc 34.8 g/dl (31.0-36.0); Mean Corpuscular Hemoglobin 28.7 pg (27.0-33.0); Mean Corpuscular Volume 82.4 fL (80-98); Monocytes Absolute Auto 1.1 X10*3/uL (0.1-1.2); Monocytes Percent Auto 7.7 % (2-11); Neutrophils Absolute Auto 10.2 X10*3/uL (2.0-8.3); Neutrophils Percent Auto 69.7 % (45-73); Platelet Count 318 X10*3/uL (160-400); Red Blood Count 4.88 X10*6/uL (4.60-5.80); Red Cell Distribution Width 11.9 % (11.0-16.0); White Blood Count 14.6 X10*3/uL (4.8-10.8)
[2021-06-24] MEDS: HYDROcodone Bit/Acetam 5/325 TABLET 1 TAB PO (22:30)
[2021-06-24 22:45] VITALS: BP 140/87; PULSE 130; TEMP 37.1; O2SAT 96
[2021-06-24 23:12] LABS: Glucose Urine UA NEG (NEG); Leukocyte Esterase Urine NEG (NEG); Nitrite Urine NEG (NEG); PH 7.5 (5.0-8.0); Specific Gravity - Urine 1.015 (1.005-1.025); Urine Blood NEG (NEG); Urine Ketones NEG (NEG); Urine Protein NEG (NEG-TRACE)
[2021-06-24 23:13] LABS: Appearance Urine CLEAR; Color Urine YELLOW
--- NOTE | 2021-06-25 00:50 | PC.NURSE ---
Pt c/o of pain in the perianal area and in left upper abdomen during 06/24 evening shift. He reported that he did not feel right and his pain was 10/10. Vitals were taken and he had an elevated temperature and tachycardic. Tylenol was given at 1950 on 06/24. Maya Juárez NP was notified and Dr. Garcia (Hospitalist). CBC w/diff + UA w/ cult was ordered and obtained indicating elevated WBC's. Periodically would yell in the hallway due to pain and verbalized that he could not sit down. Tearful I wish this on nobody, I have never had this before . Lorcet pain medication was administered at 2230 (06/24). Pt reported 2/10 pain after receiving. Vitals were retaken and he was afebrile, remained tachycardic. Dr. Garcia came up at 0019 to assess him and he declined the physical exam and was told that he would not be able to treated without assessing him first. Dr. Garcia notified t/w if he changes his mind to let him know mart.
[2021-06-25 06:00] VITALS: BP 133/84; PULSE 109; RESP 16; TEMP 36.6; O2SAT 95
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
[2021-06-25] MEDS: HYDROcodone Bit/Acetam 5/325 TABLET 1 TAB PO (14:05)
[2021-06-25 16:00] VITALS: BP 146/68; PULSE 108; TEMP 36.4
--- NOTE | 2021-06-26 00:21 | PC.NURSE ---
Patient showing small amount of blood on towel after taking a shower, reporting from groin area; refusing RN to assess situation. Reporting abdomen discomfort on RUQ and LUQ; abd round distended semifirm, +BSx4; denies having a BM Saturday; refusing any medication no, no, no, too much medications...they just get stuck inside and make things worse. Accepted prune juice.
[2021-06-26 06:00] VITALS: BP 148/61; PULSE 82; RESP 16; TEMP 36.2; O2SAT 96
--- NOTE | 2021-06-26 17:42 | P.CNUR_ITS ---
History of Present Illness Consult details Consult date: 06/26/21 Narrative: Asked to see patient regarding penile pain A patient informed me that he does not want to be examined He tells me the pain is in his testicles May well have epididymitis given white cell count Would treat with antibiotics He refused to be examined Will not see again unless willing to be examined Review of Systems Constitutional: Constitutional: Denies chills and Denies fever(s) Cardiovascular: Cardiovascular: Reports no additional cardiovascular compl aints and Denies syncope Respiratory: Respiratory: Denies cough Gastrointestinal: Gastrointestinal: Denies abdominal pain and Denies heartburn Genitourinary: Genitourinary: Reports as per HPI and Denies change in libido Neurologic: Denies syncope Psychiatric: Psychiatric: Denies change in libido Endocrine: Endocrine: Denies change in libido [facility] Past Medical History Medical History Schizophrenia, paranoid, chronic with acute exacerbation Social History Social History Household Members: None Household Members Other:: 0 Housing: Apartment Do you presently have visiting nurse or other home services: No Unable to assess alcohol history related to: Refusing to respond Alcohol intake: current Alcohol intake frequency: a few times a month Patient Tobacco Use Status: Former Tobacco user Tobacco use type: Cigarette Smoked in Last 30 Days: No e-Cigarette/Vaping Use: Never Used Patient Interested in Nicotine Replacement: No Patient Given Instructions on How to Stop Smoking: No (Pt said was not a regular smoker just tried ) Second Hand Smoke Exposure: Yes Use of substances other than those prescribed or required for medical reasons: No Substance Use Type: Marijuana Currently Displaying Signs/Symptoms of Drug Intoxication Withdrawal: No Any prior treatment program specific to substance use: No Have you been hit, kicked, punched, or otherwise hurt by someone within the past year? If so, by whom?: No Do you feel safe in your current relationship?: No Current Relationship Is there a partner from a previous relationship who is making you feel unsafe now?: No Are you made to feel afraid or neglected: No Spiritual Healthcare Practices: unknown Christianity Healthcare Practices: unknown Cultural Healthcare Practices: unknown Advance Directives: No Advance Directives Information Provided: Yes Advance Directives on File: No Do you have thoughts of harming others: None Do you have a plan to hurt others: No Plan Recently lost weight without trying: No Eating poorly because of decreased appetite: No Nutrition Risks: No Nutritional Risk Poor oral hygiene: No service: No Sexual orientation: Did not discuss Meds Allergies Allergy/AdvReac Type Severity Reaction Status Date / Time No Known Allergies Allergy Verified 06/02/21 02:46 [No Known Allergies*] Active Medications: Current Medications Generic Name Dose Route Start Last Admin Trade Name Freq PRN Reason Stop Dose Admin Acetaminophen 650 mg 06/25/21 08:12 Acetaminophen 325 Mg Tablet PO Q12H PRN Headache/Pain Mild Scale (1-3) Hydrocodone Bitart/Acetaminophen 1 tab 06/25/21 08:09 06/25/21 14:05 Hydrocodone Bit/Acetam 5/325 Tablet PO 1 tab Q8H PRN Administration Pain, Severe (Pain Scale 7-10) Al Hydroxide/Mg Hydroxide 30 ml 06/19/21 19:21 Magnesium Hydrox/Alum Hydrox 30 Ml Oral.Susp PO Q6H PRN Heartburn/Nausea Albuterol Sulfate 1 puff 06/22/21 22:02 06/22/21 22:54 Albuterol Sulfate 90 Mcg 8 Gm Inhaler INHALE 1 puff RQ4H PRN Administration sob/wheezing Aspirin 325 mg 06/24/21 12:00 06/26/21 10:03 Aspirin 325 Mg Tablet PO Not Given DAILY JOE Benztropine Mesylate 0.5 mg 06/23/21 21:00 06/26/21 10:04 Benztropine Mesylate 0.5 Mg Tablet PO Not Given BID JOE Diazepam 2 mg 06/25/21 08:12 Diazepam 2 Mg Tablet PO BID PRN anxiety/restlessness Famotidine 20 mg 06/22/21 22:05 06/25/21 23:29 Famotidine 20 Mg Tablet PO Not Given BEDTIME JOE Haloperidol 5 mg 06/23/21 21:00 06/26/21 10:04 Haloperidol 5 Mg Tablet PO Not Given BID JOE Hydroxyzine HCl 25 mg 06/19/21 19:21 Hydroxyzine Hcl 25 Mg Tablet PO Q6H PRN Anxiety Magnesium Hydroxide 30 ml 06/19/21 19:21 Milk Of Magnesia 30 Ml Oral.Susp PO DAILY PRN Constipation Metoprolol Succinate 50 mg 06/23/21 09:00 06/26/21 10:04 Metoprolol Succinate Er 50 Mg Tab.Er.24h PO Not Given DAILY JOE Protocol Ondansetron HCl 4 mg 06/22/21 22:01 Ondansetron Odt 4 Mg Tab.Rapdis TRANSLINGU Q6H PRN Nausea Home Medications Medication Instructions Recorded Confirmed Last Taken Type metoprolol succinate 25 mg 1 tab PO DAILY 06/17/21 06/18/21 Unknown History tablet,extended release 24 hr risperidone 3 mg tablet 1 tab PO BID 06/17/21 06/18/21 Unknown History Physical Exam Vital Signs: Vital Signs: Last Vital Signs Temp 97.2 F 06/26/21 06:00 Pulse 82 06/26/21 06:00 Resp 16 06/26/21 06:00 BP 148/61 H 06/26/21 06:00 Pulse Ox 96 06/26/21 06:00 Body Mass Index 36.1 Const: General: cooperative, healthy appearing, comfortable and no acute distress Orientation/consciousness: patient oriented x3 HENMT: Face and sinus: Yes normal facial exam Mouth: moist mucous membranes Neck: Neck: Yes normal visual inspection, Yes full ROM and Yes trachea midline Chest: Chest palpation & inspection: normal inspection of the chest Resp: Effort & Inspection: normal respiratory effort, able to speak in complete sentences and no respiratory distress GI: Inspection: Yes normal to inspection Back/Spine/Pelvis: Cervical Spine: normal cervical lordosis Thoracic/Lumbar Spine: thoracic and lumbar spine normal to inspection Skin: General skin exam: no rashes or lesions noted Neuro: General: patient oriented x3, gait normal, tone normal and moves all extremities Extrem: General: Yes normal to inspection and Yes capillary refill normal Results Labs Result diagrams: 06/24/21 21:45 06/19/21 17:56 Labs: Urine 06/24/21 Range/Units 23:05 Urine Color YELLOW Urine Appearance CLEAR Urine pH 7.5 (5.0-8.0) Ur Specific [place] 1.015 (1.005-1.025) Urine Protein NEG (NEG-TRACE) MG/DL Urine Glucose (UA) NEG (NEG) MG/DL All other labs normal. Assessment and Plan (1) Acute epididymitis: Status: Acute Seven days Levaquin Procedures Date of Service Date of Service: 06/26/21
[2021-06-26 18:39] VITALS: BP 128/76; PULSE 80; TEMP 36.8
--- NOTE | 2021-06-26 18:57 | PC.NURSE ---
Pt refused to see DR. Arvizu (urology) for a consult for groin pain when provider came onto unit. Pt refusing to take abx as treatment as medication education.
[2021-06-27 06:00] VITALS: BP 119/74; PULSE 92; RESP 16; TEMP 36.1; O2SAT 97
--- NOTE | 2021-06-27 08:59 | P.PNPSI_ITS ---
Subjective Subjective Date of Service: 06/28/21 Reason For Visit: Psychosis Subjective Notes: Section 7 Interim History: Pt continues to present as guarded and paranoid towards neighbors. He is also very suspicious towards staff here in unit. Pt asking to be discharged as soon as possible. He does not let hospitalist check penis. He is refusing all medications for both psych and medical. Pacing guarded, minimal interaction with peers or staff. Medication Compliance: No Side effects from medications: No Attending Groups: No Review of Systems Constitutional: Reports as per HPI, Denies chills and Denies fever(s) Eyes: Reports as per HPI Cardiovascular: Reports no additional cardiovascular complaints and Denies syncope Respiratory: Denies cough Gastrointestinal: Denies abdominal pain and Denies heartburn Genitourinary: Reports as per HPI, Denies change in libido, Reports genital pain and Reports other Denies syncope Psychiatric: Reports as per HPI, Denies change in libido, Reports difficulty concentrating, Reports auditory hallucinations, Reports irritability and Reports suicidal ideation Endocrine: Denies change in libido Mental Status Exam Mental Status Exam Narrative: Appearance: casually groomed, fair hygiene, focused on genital pain Speech: clear, normal rate/rhythm/volume, spontaneous TP: goal oriented- wanting to leave TC:focused on pain; Mood: upset Affect: anxious, irritable SI: none HI: not observed AH/VH: appears to be responding to internal stimuli Delusions: paranoid delusions towards neighbors Insight/judgment: poor x 2. Diagnostics Vital Signs (24Hr): Vital Signs - 24 hr 06/27/21 16:12 Temperature 97.3 F Pulse Rate 117 H Blood Pressure 109/79 Pulse Oximetry 95 Body Mass Index 36.1 Labs Results: 06/24/21 21:45 06/19/21 17:56 Medications Medications Current Medications Generic Name Dose Route Start Last Admin Trade Name Freq PRN Reason Stop Dose Admin Acetaminophen 650 mg 06/25/21 08:12 Acetaminophen 325 Mg Tablet PO Q12H PRN Headache/Pain Mild Scale (1-3) Hydrocodone Bitart/Acetaminophen 1 tab 06/25/21 08:09 06/25/21 14:05 Hydrocodone Bit/Acetam 5/325 Tablet PO 1 tab Q8H PRN Administration Pain, Severe (Pain Scale 7-10) Al Hydroxide/Mg Hydroxide 30 ml 06/19/21 19:21 Magnesium Hydrox/Alum Hydrox 30 Ml Oral.Susp PO Q6H PRN Heartburn/Nausea Albuterol Sulfate 1 puff 06/22/21 22:02 06/22/21 22:54 Albuterol Sulfate 90 Mcg 8 Gm Inhaler INHALE 1 puff RQ4H PRN Administration sob/wheezing Aspirin 325 mg 06/24/21 12:00 06/27/21 13:22 Aspirin 325 Mg Tablet PO Not Given DAILY JOE Benztropine Mesylate 0.5 mg 06/23/21 21:00 06/27/21 21:28 Benztropine Mesylate 0.5 Mg Tablet PO Not Given BID JOE Diazepam 2 mg 06/25/21 08:12 Diazepam 2 Mg Tablet PO BID PRN anxiety/restlessness Famotidine 20 mg 06/22/21 22:05 06/27/21 21:28 Famotidine 20 Mg Tablet PO Not Given BEDTIME JOE Haloperidol 5 mg 06/23/21 21:00 06/27/21 21:28 Haloperidol 5 Mg Tablet PO Not Given BID JOE Hydroxyzine HCl 25 mg 06/19/21 19:21 Hydroxyzine Hcl 25 Mg Tablet PO Q6H PRN Anxiety Levofloxacin 500 mg 06/26/21 17:45 06/27/21 18:46 Levofloxacin 500 Mg Tablet PO 07/02/21 17:46 500 mg Q24H [facility] Administration Magnesium Hydroxide 30 ml 06/19/21 19:21 Milk Of Magnesia 30 Ml Oral.Susp PO DAILY PRN Constipation Metoprolol Succinate 50 mg 06/23/21 09:00 06/27/21 13:22 Metoprolol Succinate Er 50 Mg Tab.Er.24h PO Not Given DAILY [facility] Protocol Ondansetron HCl 4 mg 06/22/21 22:01 Ondansetron Odt 4 Mg Tab.Rapdis TRANSLINGU Q6H PRN Nausea Allergies Allergies Allergy/AdvReac Type Severity Reaction Status Date / Time No Known Allergies Allergy Verified 06/02/21 02:46 [No Known Allergies*] Assessment & Plan Assessment & Plan (1) Acute epididymitis: Status: Acute Code(s): N45.1 - Epididymitis Assessment and Plan: Seven days Levaquin Greater than 50% of the session was spent on counseling and/or coordination of care Reason for contiued inpatient stay Substantial Risk for: harm to others and inability to function
--- NOTE | 2021-06-27 09:03 | P.PNPSI_ITS ---
Subjective Subjective Date of Service: 06/28/21 Reason For Visit: Psychosis Interim History: Pt continues to present as guarded and paranoid towards neighbors. Pt upset with this senior mortgage underwriter because he is asking for discharged. However, pt continues to present as paranoid specially towards neighbors. Pt reports feeling tired by what these neighbors are doing to him and wants to take matter into his own hands. He tells this senior mortgage underwriter just to send medications to the pharmacy, but he is not even taking this medications (haldol) in the unit. He is very irritable, no insight into how paranoia is symptoms of his psychiatric illness. Medication Compliance: No Side effects from medications: No Attending Groups: No Review of Systems Acute medical concerns: No Review of Systems Constitutional: Reports as per HPI, Denies chills and Denies fever(s) Eyes: Reports as per HPI Cardiovascular: Reports no additional cardiovascular complaints and Denies syncope Respiratory: Denies cough Gastrointestinal: Denies abdominal pain and Denies heartburn Genitourinary: Reports as per HPI, Denies change in libido, Reports genital pain and Reports other Denies syncope Psychiatric: Reports as per HPI, Denies change in libido, Reports difficulty concentrating, Reports auditory hallucinations, Reports irritability and Reports suicidal ideation Endocrine: Denies change in libido Mental Status Exam Mental Status Exam Narrative: Appearance: casually groomed, fair hygiene, focused on genital pain Speech: clear, normal rate/rhythm/volume, spontaneous TP: goal oriented- wanting to leave TC:focused on pain; Mood: upset Affect: anxious, irritable SI: none HI: not observed AH/VH: appears to be responding to internal stimuli Delusions: paranoid delusions towards neighbors Insight/judgment: poor x 2. Diagnostics Vital Signs (24Hr): Vital Signs - 24 hr 06/27/21 16:12 Temperature 97.3 F Pulse Rate 117 H Blood Pressure 109/79 Pulse Oximetry 95 Body Mass Index 36.1 Labs Results: 06/24/21 21:45 06/19/21 17:56 Medications Medications Current Medications Generic Name Dose Route Start Last Admin Trade Name Freq PRN Reason Stop Dose Admin Acetaminophen 650 mg 06/25/21 08:12 Acetaminophen 325 Mg Tablet PO Q12H PRN Headache/Pain Mild Scale (1-3) Hydrocodone Bitart/Acetaminophen 1 tab 06/25/21 08:09 06/25/21 14:05 Hydrocodone Bit/Acetam 5/325 Tablet PO 1 tab Q8H PRN Administration Pain, Severe (Pain Scale 7-10) Al Hydroxide/Mg Hydroxide 30 ml 06/19/21 19:21 Magnesium Hydrox/Alum Hydrox 30 Ml Oral.Susp PO Q6H PRN Heartburn/Nausea Albuterol Sulfate 1 puff 06/22/21 22:02 06/22/21 22:54 Albuterol Sulfate 90 Mcg 8 Gm Inhaler INHALE 1 puff RQ4H PRN Administration sob/wheezing Aspirin 325 mg 06/24/21 12:00 06/27/21 13:22 Aspirin 325 Mg Tablet PO Not Given DAILY JOE Benztropine Mesylate 0.5 mg 06/23/21 21:00 06/27/21 21:28 Benztropine Mesylate 0.5 Mg Tablet PO Not Given BID JOE Diazepam 2 mg 06/25/21 08:12 Diazepam 2 Mg Tablet PO BID PRN anxiety/restlessness Famotidine 20 mg 06/22/21 22:05 06/27/21 21:28 Famotidine 20 Mg Tablet PO Not Given BEDTIME JOE Haloperidol 5 mg 06/23/21 21:00 06/27/21 21:28 Haloperidol 5 Mg Tablet PO Not Given BID JOE Hydroxyzine HCl 25 mg 06/19/21 19:21 Hydroxyzine Hcl 25 Mg Tablet PO Q6H PRN Anxiety Levofloxacin 500 mg 06/26/21 17:45 06/27/21 18:46 Levofloxacin 500 Mg Tablet PO 07/02/21 17:46 500 mg Q24H JOE Administration Magnesium Hydroxide 30 ml 06/19/21 19:21 Milk Of Magnesia 30 Ml Oral.Susp PO DAILY PRN Constipation Metoprolol Succinate 50 mg 06/23/21 09:00 06/27/21 13:22 Metoprolol Succinate Er 50 Mg Tab.Er.24h PO Not Given DAILY [facility] Protocol Ondansetron HCl 4 mg 06/22/21 22:01 Ondansetron Odt 4 Mg Tab.Rapdis TRANSLINGU Q6H PRN Nausea Allergies Allergies Allergy/AdvReac Type Severity Reaction Status Date / Time No Known Allergies Allergy Verified 06/02/21 02:46 [No Known Allergies*] Assessment & Plan Assessment & Plan (1) Acute epididymitis: Status: Acute Code(s): N45.1 - Epididymitis Assessment and Plan: Seven days Levaquin (2) Schizophrenia, paranoid, chronic with acute exacerbation: Status: Acute Code(s): F20.0 - Paranoid schizophrenia Assessment and Plan: 1. continue haldol- although pt refusing 2. pending section 8, currently on section 7. Greater than 50% of the session was spent on counseling and/or coordination of care Reason for contiued inpatient stay Substantial Risk for: harm to others and inability to function
[2021-06-27 16:12] VITALS: BP 109/79; PULSE 117; TEMP 36.3; O2SAT 95
[2021-06-27] MEDS: levoFLOXacin 500 MG TABLET PO (18:46)
--- NOTE | 2021-06-28 08:37 | P.PNPSI_ITS ---
Subjective Subjective Date of Service: 06/30/21 Reason For Visit: Psychosis Interim History: Pt continues to present as guarded and paranoid towards neighbors. Pt upset with this engineering technical writer because he is asking for discharged. However, pt continues to present as paranoid specially towards neighbors. Pt reports feeling tired by what these neighbors are doing to him and wants to take matter into his own hands. He tells this engineering technical writer just to send medications to the pharmacy, but he is not even taking this medications (haldol) in the unit. He is very irritable, no insight into how paranoia is symptoms of his psychiatric illness. Review of Systems Constitutional: Reports as per HPI, Denies chills and Denies fever(s) Eyes: Reports as per HPI Cardiovascular: Reports no additional cardiovascular complaints and Denies syncope Respiratory: Denies cough Gastrointestinal: Denies abdominal pain and Denies heartburn Genitourinary: Reports as per HPI, Denies change in libido, Reports genital pain and Reports other Denies syncope Psychiatric: Reports as per HPI, Denies change in libido, Reports difficulty concentrating, Reports auditory hallucinations, Reports irritability and Reports suicidal ideation Endocrine: Denies change in libido Mental Status Exam Mental Status Exam Narrative: Appearance: casually groomed, fair hygiene, focused on genital pain Speech: clear, normal rate/rhythm/volume, spontaneous TP: goal oriented- wanting to leave TC:focused on pain; Mood: upset Affect: anxious, irritable SI: none HI: not observed AH/VH: appears to be responding to internal stimuli Delusions: paranoid delusions towards neighbors Insight/judgment: poor x 2. Diagnostics Vital Signs (24Hr): Vital Signs - 24 hr 06/29/21 17:05 Respiratory Rate 14 Body Mass Index 36.1 Labs Results: 06/24/21 21:45 06/19/21 17:56 Medications Medications Current Medications Generic Name Dose Route Start Last Admin Trade Name Freq PRN Reason Stop Dose Admin Acetaminophen 650 mg 06/25/21 08:12 Acetaminophen 325 Mg Tablet PO Q12H PRN Headache/Pain Mild Scale (1-3) Al Hydroxide/Mg Hydroxide 30 ml 06/19/21 19:21 Magnesium Hydrox/Alum Hydrox 30 Ml Oral.Susp PO Q6H PRN Heartburn/Nausea Albuterol Sulfate 1 puff 06/22/21 22:02 06/22/21 22:54 Albuterol Sulfate 90 Mcg 8 Gm Inhaler INHALE 1 puff RQ4H PRN Administration sob/wheezing Aspirin 325 mg 06/24/21 12:00 06/29/21 08:53 Aspirin 325 Mg Tablet PO Not Given DAILY JOE Benztropine Mesylate 0.5 mg 06/23/21 21:00 06/29/21 20:29 Benztropine Mesylate 0.5 Mg Tablet PO Not Given BID JOE Famotidine 20 mg 06/22/21 22:05 06/29/21 20:29 Famotidine 20 Mg Tablet PO Not Given BEDTIME JOE Haloperidol 5 mg 06/23/21 21:00 06/29/21 20:29 Haloperidol 5 Mg Tablet PO Not Given BID JOE Hydroxyzine HCl 25 mg 06/19/21 19:21 Hydroxyzine Hcl 25 Mg Tablet PO Q6H PRN Anxiety Levofloxacin 500 mg 06/26/21 17:45 06/29/21 17:16 Levofloxacin 500 Mg Tablet PO 07/02/21 17:46 Not Given Q24H JOE Magnesium Hydroxide 30 ml 06/19/21 19:21 Milk Of Magnesia 30 Ml Oral.Susp PO DAILY PRN Constipation Metoprolol Succinate 50 mg 06/23/21 09:00 06/29/21 08:54 Metoprolol Succinate Er 50 Mg Tab.Er.24h PO Not Given DAILY [facility] Protocol Ondansetron HCl 4 mg 06/22/21 22:01 Ondansetron Odt 4 Mg Tab.Rapdis TRANSLINGU Q6H PRN Nausea Allergies Allergies Allergy/AdvReac Type Severity Reaction Status Date / Time No Known Allergies Allergy Verified 06/02/21 02:46 [No Known Allergies*] Assessment & Plan Assessment & Plan (1) Acute epididymitis: Status: Acute Code(s): N45.1 - Epididymitis Assessment and Plan: Seven days Levaquin (2) Schizophrenia, paranoid, chronic with acute exacerbation: Status: Acute Code(s): F20.0 - Paranoid schizophrenia Assessment and Plan: 1. continue haldol- although pt refusing 2. pending section 8, currently on section 7. Greater than 50% of the session was spent on counseling and/or coordination of care Reason for contiued inpatient stay Substantial Risk for: harm to others and inability to function
[2021-06-28] MEDS: levoFLOXacin 500 MG TABLET PO (16:46)
[2021-06-29 06:00] VITALS: BP 137/90; PULSE 95; RESP 16; TEMP 36.3; O2SAT 96
--- NOTE | 2021-06-29 08:38 | HO.PSYCHPN ---
Subjective Subjective Date of Service: 06/30/21 Reason For Visit: Psychosis Subjective Notes: Section 8 (comitted on 06/29/21) Interim History: Pt continues to present as guarded and paranoid towards neighbors. Pt upset with this public relations writer because he is asking for discharged. However, pt continues to present as paranoid specially towards neighbors. Pt reports feeling tired by what these neighbors are doing to him and wants to take matter into his own hands. He tells this public relations writer just to send medications to the pharmacy, but he is not even taking this medications (haldol) in the unit. He is very irritable, no insight into how paranoia is symptoms of his psychiatric illness. Pt committed for involuntary treatment on 06/29/21. Review of Systems Constitutional: Reports as per HPI, Denies chills and Denies fever(s) Eyes: Reports as per HPI Cardiovascular: Reports no additional cardiovascular complaints and Denies syncope Respiratory: Denies cough Gastrointestinal: Denies abdominal pain and Denies heartburn Genitourinary: Reports as per HPI, Denies change in libido, Reports genital pain and Reports other Denies syncope Psychiatric: Reports as per HPI, Denies change in libido, Reports difficulty concentrating, Reports auditory hallucinations, Reports irritability and Reports suicidal ideation Endocrine: Denies change in libido Mental Status Exam Mental Status Exam Narrative: Appearance: casually groomed, fair hygiene, focused on genital pain Speech: clear, normal rate/rhythm/volume, spontaneous TP: goal oriented- wanting to leave TC:focused on pain; Mood: upset Affect: anxious, irritable SI: none HI: not observed AH/VH: appears to be responding to internal stimuli Delusions: paranoid delusions towards neighbors Insight/judgment: poor x 2. Diagnostics Vital Signs (24Hr): Vital Signs - 24 hr 06/29/21 17:05 Respiratory Rate 14 Body Mass Index 36.1 Labs Results: 06/24/21 21:45 06/19/21 17:56 Medications Medications Current Medications Generic Name Dose Route Start Last Admin Trade Name Freq PRN Reason Stop Dose Admin Acetaminophen 650 mg 06/25/21 08:12 Acetaminophen 325 Mg Tablet PO Q12H PRN Headache/Pain Mild Scale (1-3) Al Hydroxide/Mg Hydroxide 30 ml 06/19/21 19:21 Magnesium Hydrox/Alum Hydrox 30 Ml Oral.Susp PO Q6H PRN Heartburn/Nausea Albuterol Sulfate 1 puff 06/22/21 22:02 06/22/21 22:54 Albuterol Sulfate 90 Mcg 8 Gm Inhaler INHALE 1 puff RQ4H PRN Administration sob/wheezing Aspirin 325 mg 06/24/21 12:00 06/29/21 08:53 Aspirin 325 Mg Tablet PO Not Given DAILY JOE Benztropine Mesylate 0.5 mg 06/23/21 21:00 06/29/21 20:29 Benztropine Mesylate 0.5 Mg Tablet PO Not Given BID JOE Famotidine 20 mg 06/22/21 22:05 06/29/21 20:29 Famotidine 20 Mg Tablet PO Not Given BEDTIME JOE Haloperidol 5 mg 06/23/21 21:00 06/29/21 20:29 Haloperidol 5 Mg Tablet PO Not Given BID JOE Hydroxyzine HCl 25 mg 06/19/21 19:21 Hydroxyzine Hcl 25 Mg Tablet PO Q6H PRN Anxiety Levofloxacin 500 mg 06/26/21 17:45 06/29/21 17:16 Levofloxacin 500 Mg Tablet PO 07/02/21 17:46 Not Given Q24H JOE Magnesium Hydroxide 30 ml 06/19/21 19:21 Milk Of Magnesia 30 Ml Oral.Susp PO DAILY PRN Constipation Metoprolol Succinate 50 mg 06/23/21 09:00 06/29/21 08:54 Metoprolol Succinate Er 50 Mg Tab.Er.24h PO Not Given DAILY [facility] Protocol Ondansetron HCl 4 mg 06/22/21 22:01 Ondansetron Odt 4 Mg Tab.Rapdis TRANSLINGU Q6H PRN Nausea Allergies Allergies Allergy/AdvReac Type Severity Reaction Status Date / Time No Known Allergies Allergy Verified 06/02/21 02:46 [No Known Allergies*] Assessment & Plan Assessment & Plan (1) Acute epididymitis: Status: Acute Code(s): N45.1 - Epididymitis Assessment and Plan: Seven days Levaquin (2) Schizophrenia, paranoid, chronic with acute exacerbation: Status: Acute Code(s): F20.0 - Paranoid schizophrenia Assessment and Plan: 1. continue haldol 5mg po BID, can't refused per court order, back up IM haldol 5mg IM BID. 2. Section 8 on 8/26/21. Greater than 50% of the session was spent on counseling and/or coordination of care Reason for contiued inpatient stay Substantial Risk for: harm to others and inability to function
[2021-06-29 17:05] VITALS: RESP 14
[2021-06-30] MEDS: HaloperidoL 5 MG TABLET PO ×2 (13:36→19:23)
--- NOTE | 2021-06-30 15:37 | HO.PSYCHPN ---
Subjective Subjective Date of Service: 06/30/21 Reason For Visit: Psychosis Subjective Notes: Section 8 Healthcare Proxy: No Guardianship: No Medical Problems Affecting Mental Status: No Interim History: Section VIII approved for 6 month commitment. Irritable, reports voices, Haldol initiated. Pt with anger, pacing, verbally caustic at times. Dismissive Medication Compliance: Yes Side effects from medications: No Attending Groups: No Review of Systems Acute medical concerns: No Medical Review of Systems: unchanged Review of Systems Reports behavioral changes Psychiatric: Reports behavioral changes, Reports auditory hallucinations, Reports irritability, Reports mood swings and Reports paranoia Mental Status Exam Mental Status Exam Patient Appearance: Unkempt Patient Orientation: Person, Place and Situation Level of Consciousness: Alert Patient Behavior: Guarded, Talkative, Suspicious, Belligerent, Verbal Threats, Anxious, Fearful, Avoidant, Distractible and Poor Eye Contact Mood Description: Angry Affect Description: Constricted Patient Cognition Impaired: No Ability to Follow Directions: Fair Speech Pattern: Spontaneous Speech Memory Description: Episodic Impaired Hallucinations: Auditory Delusions: Paranoid Ideation Thought Process: Goal Oriented Thought Content: positive for Goal Oriented Judgement: Poor Diagnostics Vital Signs (24Hr): Vital Signs - 24 hr 06/29/21 17:05 Respiratory Rate 14 Body Mass Index 36.1 Labs Results: 06/24/21 21:45 06/19/21 17:56 Medications Medications Current Medications Generic Name Dose Route Start Last Admin Trade Name Freq PRN Reason Stop Dose Admin Acetaminophen 650 mg 06/25/21 08:12 Acetaminophen 325 Mg Tablet PO Q12H PRN Headache/Pain Mild Scale (1-3) Al Hydroxide/Mg Hydroxide 30 ml 06/19/21 19:21 Magnesium Hydrox/Alum Hydrox 30 Ml Oral.Susp PO Q6H PRN Heartburn/Nausea Albuterol Sulfate 1 puff 06/22/21 22:02 06/22/21 22:54 Albuterol Sulfate 90 Mcg 8 Gm Inhaler INHALE 1 puff RQ4H PRN Administration sob/wheezing Aspirin 325 mg 06/24/21 12:00 06/30/21 10:48 Aspirin 325 Mg Tablet PO Not Given DAILY JOE Benztropine Mesylate 0.5 mg 06/23/21 21:00 06/30/21 13:36 Benztropine Mesylate 0.5 Mg Tablet PO Not Given BID JOE Famotidine 20 mg 06/22/21 22:05 08/26/21 20:29 Famotidine 20 Mg Tablet PO Not Given BEDTIME JOE Haloperidol 5 mg 06/23/21 21:00 06/30/21 13:36 Haloperidol 5 Mg Tablet PO 5 mg BID JOE Administration Haloperidol Lactate 5 mg 06/30/21 08:40 Haloperidol Lactate 5 Mg/Ml Vial IM BID PRN if pt refuses oral per court order Hydroxyzine HCl 25 mg 06/19/21 19:21 Hydroxyzine Hcl 25 Mg Tablet PO Q6H PRN Anxiety Levofloxacin 500 mg 06/26/21 17:45 06/29/21 17:16 Levofloxacin 500 Mg Tablet PO 07/02/21 17:46 Not Given Q24H JOE Magnesium Hydroxide 30 ml 06/19/21 19:21 Milk Of Magnesia 30 Ml Oral.Susp PO DAILY PRN Constipation Metoprolol Succinate 50 mg 06/23/21 09:00 06/30/21 10:49 Metoprolol Succinate Er 50 Mg Tab.Er.24h PO Not Given DAILY JOE Protocol Ondansetron HCl 4 mg 06/22/21 22:01 Ondansetron Odt 4 Mg Tab.Rapdis TRANSLINGU Q6H PRN Nausea Allergies Allergies Allergy/AdvReac Type Severity Reaction Status Date / Time No Known Allergies Allergy Verified 06/02/21 02:46 [No Known Allergies*] Assessment & Plan Assessment & Plan (1) Acute epididymitis: Status: Acute Code(s): N45.1 - Epididymitis Assessment and Plan: Seven days Levaquin (2) Schizophrenia, paranoid, chronic with acute exacerbation: Status: Acute Code(s): F20.0 - Paranoid schizophrenia Assessment and Plan: 1. continue haldol 5mg po BID, back up IM haldol 5mg IM BID. 2. Section 8 on 06/29/21. Greater than 50% of the session was spent on counseling and/or coordination of care Informed Consent: understands and further education needed Reason for contiued inpatient stay Substantial Risk for: harm to self, harm to others, inability to function and rapid decompensation
[2021-06-30 15:50] VITALS: BP 146/84; PULSE 101; TEMP 36.2
[2021-06-30] MEDS: levoFLOXacin 500 MG TABLET PO (17:33)
[2021-07-01] MEDS: HaloperidoL 5 MG TABLET PO ×2 (08:58→21:19)
[2021-07-01] MEDS: levoFLOXacin 500 MG TABLET PO (16:19)
--- NOTE | 2021-07-01 22:07 | P.PNPSI_ITS ---
Subjective Subjective Date of Service: 07/01/21 Reason For Visit: Psychosis Subjective Notes: Section 8 Interim History: Accepting po medications without security's presence today, did decline Haldol. Somewhat isolative, accepting of prn medications. Denies issues with tw- I'm here and I guess that is it-nothing to do about it . Denies medical sx-evasive and appears preoccupied, not wanting to engage in any conversation at length. Medication Compliance: Yes Side effects from medications: No Review of Systems Acute medical concerns: No Review of Systems Psychiatric: Reports anxiety, Reports auditory hallucinations, Reports irritability, Reports mood swings and Reports paranoia Mental Status Exam Mental Status Exam Patient Appearance: Appropriate Patient Orientation: Person, Place and Situation Level of Consciousness: Alert Patient Behavior: Guarded and Suspicious Mood Description: Suspicious, Withdrawn and Apprehensive Affect Description: Constricted Patient Cognition Impaired: No Ability to Follow Directions: Fair Speech Pattern: Perseverating, Spontaneous Speech and Loud Memory Description: Remote Impaired and Episodic Impaired Hallucinations: Auditory Delusions: Paranoid Ideation and Present Thought Process: Distracted and Rumination Thought Content: positive for [place], positive for Perseveration and positive for Thought Blocking Depressive Symptoms: Increased Anxiety, Increased Irritability and Thoughts of /Suicide (denies) Judgement: Poor Diagnostics Vital Signs (24Hr): Body Mass Index 36.1 Labs Results: 06/24/21 21:45 06/19/21 17:56 Medications Medications Current Medications Generic Name Dose Route Start Last Admin Trade Name Freq PRN Reason Stop Dose Admin Acetaminophen 650 mg 06/25/21 08:12 Acetaminophen 325 Mg Tablet PO Q12H PRN Headache/Pain Mild Scale (1-3) Al Hydroxide/Mg Hydroxide 30 ml 06/19/21 19:21 Magnesium Hydrox/Alum Hydrox 30 Ml Oral.Susp PO Q6H PRN Heartburn/Nausea Albuterol Sulfate 1 puff 06/22/21 22:02 06/22/21 22:54 Albuterol Sulfate 90 Mcg 8 Gm Inhaler INHALE 1 puff RQ4H PRN Administration sob/wheezing Aspirin 325 mg 06/24/21 12:00 07/01/21 09:10 Aspirin 325 Mg Tablet PO Not Given DAILY JOE Benztropine Mesylate 0.5 mg 06/23/21 21:00 07/01/21 21:17 Benztropine Mesylate 0.5 Mg Tablet PO Not Given BID JOE Famotidine 20 mg 06/22/21 22:05 07/01/21 21:17 Famotidine 20 Mg Tablet PO Not Given BEDTIME JOE Haloperidol 5 mg 06/23/21 21:00 07/01/21 21:19 Haloperidol 5 Mg Tablet PO 5 mg BID JOE Administration Haloperidol Lactate 5 mg 06/30/21 08:40 Haloperidol Lactate 5 Mg/Ml Vial IM BID PRN if pt refuses oral per court order Hydroxyzine HCl 25 mg 06/19/21 19:21 Hydroxyzine Hcl 25 Mg Tablet PO Q6H PRN Anxiety Levofloxacin 500 mg 06/26/21 17:45 07/01/21 16:19 Levofloxacin 500 Mg Tablet PO 07/02/21 17:46 500 mg Q24H JOE Administration Magnesium Hydroxide 30 ml 06/19/21 19:21 Milk Of Magnesia 30 Ml Oral.Susp PO DAILY PRN Constipation Metoprolol Succinate 50 mg 06/23/21 09:00 07/01/21 09:10 Metoprolol Succinate Er 50 Mg Tab.Er.24h PO Not Given DAILY [facility] Protocol Ondansetron HCl 4 mg 06/22/21 22:01 Ondansetron Odt 4 Mg Tab.Rapdis TRANSLINGU Q6H PRN Nausea Allergies Allergies Allergy/AdvReac Type Severity Reaction Status Date / Time No Known Allergies Allergy Verified 06/02/21 02:46 [No Known Allergies*] Assessment & Plan Assessment & Plan (1) Acute epididymitis: Status: Acute Code(s): N45.1 - Epididymitis Assessment and Plan: Seven days Levaquin (2) Schizophrenia, paranoid, chronic with acute exacerbation: Status: Acute Code(s): F20.0 - Paranoid schizophrenia Assessment and Plan: 1. continue haldol 5mg po BID, back up IM haldol 5mg IM BID. 2. Section 8 on 06/29/21. Assessment and Plan: Continue current plan of care. Greater than 50% of the session was spent on counseling and/or coordination of care Reason for contiued inpatient stay Substantial Risk for: harm to self, harm to others, inability to function and rapid decompensation
--- NOTE | 2021-07-02 | ECG_ITS ---
Test Reason : chest discomfort/pain Blood Pressure : / mmHG Vent. Rate : 113 BPM Atrial Rate : 113 BPM P-R Int : 148 ms QRS Dur : 082 ms QT Int : 340 ms P-R-T Axes : 049 092 041 degrees QTc Int : 466 ms Sinus tachycardia Rightward axis Borderline ECG When compared with ECG of 09-JUN-2021 02:39, Heart rate has increased Referred By: Sarah Hdez Electronically Signed By:ALFONSO MCCLENDON
[2021-07-02] MEDS: hydrOXYzine HCL 25 MG TABLET PO (00:22)
[2021-07-02] MEDS: HaloperidoL 5 MG TABLET PO ×2 (09:33→20:53)
[2021-07-02] MEDS: Acetaminophen 325 MG TABLET 650 MG PO (09:36)
[2021-07-02] MEDS: levoFLOXacin 500 MG TABLET PO (17:03)
[2021-07-02 18:00] VITALS: BP 137/64; PULSE 120
--- NOTE | 2021-07-02 18:50 | P.PNPSI_ITS ---
Subjective Subjective Date of Service: 07/02/21 Reason For Visit: Psychosis Interim History: Accepting meds. EKG ordered today as pt had reported some discomfort-no results yet. Pt listening to music, singing, walking the unit appearing much calmer. Medication Compliance: Yes Side effects from medications: No Attending Groups: No Review of Systems Acute medical concerns: No Medical Review of Systems: unchanged Review of Systems Psychiatric: Reports anxiety, Reports auditory hallucinations, Reports irritability, Reports mood swings and Reports paranoia Mental Status Exam Mental Status Exam Patient Appearance: Appropriate Patient Orientation: Person, Place and Situation Level of Consciousness: Alert Patient Behavior: Talkative, Fatigued and Distractible Mood Description: Withdrawn and Flat Affect Description: Constricted Patient Cognition Impaired: No Ability to Follow Directions: Fair Speech Pattern: Spontaneous Speech Memory Description: Remote Impaired and Episodic Impaired Hallucinations: Auditory Delusions: Present Thought Process: Distracted and Rumination Thought Content: positive for [place] and positive for Perseveration Depressive Symptoms: Increased Anxiety Judgement: Fair Diagnostics Vital Signs (24Hr): Body Mass Index 36.1 Labs Results: 06/24/21 21:45 06/19/21 17:56 Medications Medications Current Medications Generic Name Dose Route Start Last Admin Trade Name Freq PRN Reason Stop Dose Admin Acetaminophen 650 mg 06/25/21 08:12 07/02/21 09:36 Acetaminophen 325 Mg Tablet PO 325 mg Q12H PRN Administration Headache/Pain Mild Scale (1-3) Al Hydroxide/Mg Hydroxide 30 ml 06/19/21 19:21 Magnesium Hydrox/Alum Hydrox 30 Ml Oral.Susp PO Q6H PRN Heartburn/Nausea Albuterol Sulfate 1 puff 06/22/21 22:02 06/22/21 22:54 Albuterol Sulfate 90 Mcg 8 Gm Inhaler INHALE 1 puff RQ4H PRN Administration sob/wheezing Aspirin 325 mg 06/24/21 12:00 07/02/21 09:24 Aspirin 325 Mg Tablet PO Not Given DAILY JOE Benztropine Mesylate 0.5 mg 06/23/21 21:00 07/02/21 09:24 Benztropine Mesylate 0.5 Mg Tablet PO Not Given BID JOE Famotidine 20 mg 06/22/21 22:05 07/01/21 21:17 Famotidine 20 Mg Tablet PO Not Given BEDTIME JOE Haloperidol 5 mg 06/23/21 21:00 07/02/21 09:33 Haloperidol 5 Mg Tablet PO 5 mg BID JOE Administration Haloperidol Lactate 5 mg 06/30/21 08:40 Haloperidol Lactate 5 Mg/Ml Vial IM BID PRN if pt refuses oral per court order Hydroxyzine HCl 25 mg 06/19/21 19:21 07/02/21 00:22 Hydroxyzine Hcl 25 Mg Tablet PO 25 mg Q6H PRN Administration Anxiety Magnesium Hydroxide 30 ml 06/19/21 19:21 Milk Of Magnesia 30 Ml Oral.Susp PO DAILY PRN Constipation Metoprolol Succinate 50 mg 06/23/21 09:00 07/02/21 09:24 Metoprolol Succinate Er 50 Mg Tab.Er.24h PO Not Given DAILY JOE Protocol Ondansetron HCl 4 mg 06/22/21 22:01 Ondansetron Odt 4 Mg Tab.Rapdis TRANSLINGU Q6H PRN Nausea Allergies Allergies Allergy/AdvReac Type Severity Reaction Status Date / Time No Known Allergies Allergy Verified 06/02/21 02:46 [No Known Allergies*] Assessment & Plan Assessment & Plan (1) Acute epididymitis: Status: Acute Code(s): N45.1 - Epididymitis Assessment and Plan: Seven days Levaquin (2) Schizophrenia, paranoid, chronic with acute exacerbation: Status: Acute Code(s): F20.0 - Paranoid schizophrenia Assessment and Plan: 1. continue haldol 5mg po BID, back up IM haldol 5mg IM BID. 2. Section 8 on 06/29/21. Assessment and Plan: Continue current plan of care. Greater than 50% of the session was spent on counseling and/or coordination of care Informed Consent: further education needed Reason for contiued inpatient stay Substantial Risk for: harm to self, harm to others, inability to function and rapid decompensation
[2021-07-03] MEDS: HaloperidoL 5 MG TABLET PO ×2 (09:22→20:00)
[2021-07-03 09:33] VITALS: BP 131/70; PULSE 119
--- NOTE | 2021-07-03 10:41 | P.PNPSI_ITS ---
Subjective Subjective Date of Service: 07/03/21 Reason For Visit: Psychosis Interim History: patient told technical report writer that he is feel[ing] great... He says he does not want to hurt anybody and has been taking his medications daily; he says he feels ok and that he is ready for discharge. Patient wants technical report writer to tell this to Maya Juárez so that she will discharge him. He says he needs to get home to pay rent. He denies SI and denies AVH. Mental Status Exam Mental Status Exam Narrative: Patient Appearance:?Appropriate Patient Orientation:?Person, Place and Situation Level of Consciousness:?Alert Patient Behavior:?Talkative, Fatigued and Distractible Mood Description:? great Affect Description:?constricted Patient Cognition Impaired:?No Ability to Follow Directions:?Fair Speech Pattern:?Spontaneous Speech Memory Description:?Remote Impaired and Episodic Impaired Hallucinations:?denies Delusions:?denies Thought Process:?organized, goal oriented Thought Content:?discharge; denies SI/HI Judgement:?Fair Diagnostics Vital Signs (24Hr): Vital Signs - 24 hr 07/02/21 18:00 07/03/21 09:33 Pulse Rate 120 H 119 H Blood Pressure 137/64 131/70 Body Mass Index 36.1 Labs Results: 06/24/21 21:45 06/19/21 17:56 Medications Medications Current Medications Generic Name Dose Route Start Last Admin Trade Name Hipolitoq PRN Reason Stop Dose Admin Acetaminophen 650 mg 06/25/21 08:12 07/02/21 09:36 Acetaminophen 325 Mg Tablet PO 325 mg Q12H PRN Administration Headache/Pain Mild Scale (1-3) Al Hydroxide/Mg Hydroxide 30 ml 06/19/21 19:21 Magnesium Hydrox/Alum Hydrox 30 Ml Oral.Susp PO Q6H PRN Heartburn/Nausea Albuterol Sulfate 1 puff 06/22/21 22:02 06/22/21 22:54 Albuterol Sulfate 90 Mcg 8 Gm Inhaler INHALE 1 puff RQ4H PRN Administration sob/wheezing Aspirin 325 mg 06/24/21 12:00 07/03/21 09:32 Aspirin 325 Mg Tablet PO Not Given DAILY JOE Benztropine Mesylate 0.5 mg 06/23/21 21:00 07/03/21 09:32 Benztropine Mesylate 0.5 Mg Tablet PO Not Given BID JOE Famotidine 20 mg 06/22/21 22:05 07/02/21 20:54 Famotidine 20 Mg Tablet PO Not Given BEDTIME JOE Haloperidol 5 mg 06/23/21 21:00 07/03/21 09:22 Haloperidol 5 Mg Tablet PO 5 mg BID JOE Administration Haloperidol Lactate 5 mg 06/30/21 08:40 Haloperidol Lactate 5 Mg/Ml Vial IM BID PRN if pt refuses oral per court order Hydroxyzine HCl 25 mg 06/19/21 19:21 07/02/21 00:22 Hydroxyzine Hcl 25 Mg Tablet PO 25 mg Q6H PRN Administration Anxiety Magnesium Hydroxide 30 ml 06/19/21 19:21 Milk Of Magnesia 30 Ml Oral.Susp PO DAILY PRN Constipation Metoprolol Succinate 50 mg 06/23/21 09:00 07/03/21 09:33 Metoprolol Succinate Er 50 Mg Tab.Er.24h PO Not Given DAILY JOE Protocol Ondansetron HCl 4 mg 06/22/21 22:01 Ondansetron Odt 4 Mg Tab.Rapdis TRANSLINGU Q6H PRN Nausea Allergies Allergies Allergy/AdvReac Type Severity Reaction Status Date / Time No Known Allergies Allergy Verified 06/02/21 02:46 [No Known Allergies*] Assessment & Plan Assessment & Plan (1) Acute epididymitis: Status: Acute Code(s): N45.1 - Epididymitis Assessment and Plan: Seven days Levaquin (2) Schizophrenia, paranoid, chronic with acute exacerbation: Status: Acute Code(s): F20.0 - Paranoid schizophrenia Assessment and Plan: technical report writer covering no changed to current tx plan 1. continue haldol 5mg po BID, back up IM haldol 5mg IM BID. 2. Section 8 on 06/29/21. Assessment and Plan: Continue current plan of care. Greater than 50% of the session was spent on counseling and/or coordination of care Reason for contiued inpatient stay Substantial Risk for: med/psych decompensation
[2021-07-03 18:00] VITALS: BP 132/64; PULSE 120; RESP 18; TEMP 36.4; O2SAT 96
[2021-07-04] MEDS: HaloperidoL 5 MG TABLET PO (08:17)
[2021-07-04 16:05] VITALS: BP 129/83; PULSE 62; TEMP 37.2
--- NOTE | 2021-07-04 17:02 | HO.PSYCHPN ---
Subjective Subjective Date of Service: 07/04/21 Reason For Visit: Psychosis Interim History: Patient talkative on approach, talking about that he is fine, that he is safe and ready to go. Customs Inspector asked him about report that he has been up all night to which patient agreed. He says he is not sure why and that he wants to sleep. Patient refuses speech writer's offer to add trazodone which patient has taken in the past. Patient said that he wants to be able to fall asleep on his own, without the aid of medications. Patient continued to share delusional thoughts about his neighbor breaking into his house and that they will have a problem if they continue to do so. Social Work reports that patient continually asks to sign a 3 day notice and does not seem to understand that he has been civilly committed. Customs Inspector talked with primary team mara lucio who advised to increase Haldol dose given continued paranoid delusional thoughts Mental Status Exam Mental Status Exam Narrative: ?Patient Appearance:?Appropriate Patient Orientation:?Person, Place and but not fully Situation Level of Consciousness:?Alert Patient Behavior:?Talkative, and Distractible Mood Description:? good Affect Description:?constricted Patient Cognition Impaired:?No Ability to Follow Directions:?Fair Speech Pattern:?mild to moderately pressued; Spontaneous Speech Memory Description:?Remote Impaired and Episodic Impaired Hallucinations:?denies Delusions:?paranoid, persecutory delusions Thought Process:?goal oriented; repetitive Thought Content:?discharge; denies SI/HI Judgement:?poor Diagnostics Vital Signs (24Hr): Vital Signs - 24 hr 07/03/21 18:00 07/04/21 16:05 Temperature 97.5 F 98.9 F Pulse Rate 120 H 62 Respiratory Rate 18 Blood Pressure 132/64 129/83 Pulse Oximetry 96 Body Mass Index 36.1 Labs Results: 06/24/21 21:45 06/19/21 17:56 Medications Medications Current Medications Generic Name Dose Route Start Last Admin Trade Name Freq PRN Reason Stop Dose Admin Acetaminophen 650 mg 06/25/21 08:12 07/02/21 09:36 Acetaminophen 325 Mg Tablet PO 325 mg Q12H PRN Administration Headache/Pain Mild Scale (1-3) Al Hydroxide/Mg Hydroxide 30 ml 06/19/21 19:21 Magnesium Hydrox/Alum Hydrox 30 Ml Oral.Susp PO Q6H PRN Heartburn/Nausea Albuterol Sulfate 1 puff 06/22/21 22:02 06/22/21 22:54 Albuterol Sulfate 90 Mcg 8 Gm Inhaler INHALE 1 puff RQ4H PRN Administration sob/wheezing Aspirin 325 mg 06/24/21 12:00 07/04/21 08:19 Aspirin 325 Mg Tablet PO Not Given DAILY [facility] Benztropine Mesylate 0.5 mg 06/23/21 21:00 07/04/21 08:19 Benztropine Mesylate 0.5 Mg Tablet PO Not Given BID JOE Famotidine 20 mg 06/22/21 22:05 07/03/21 20:02 Famotidine 20 Mg Tablet PO Not Given BEDTIME [facility] Haloperidol 5 mg 07/05/21 09:00 Haloperidol 5 Mg Tablet PO DAILY [facility] Haloperidol 10 mg 07/04/21 21:00 Haloperidol 5 Mg Tablet PO BEDTIME [facility] Haloperidol Lactate 5 mg 06/30/21 08:40 Haloperidol Lactate 5 Mg/Ml Vial IM BID PRN if pt refuses oral per court order Hydroxyzine HCl 25 mg 06/19/21 19:21 07/02/21 00:22 Hydroxyzine Hcl 25 Mg Tablet PO 25 mg Q6H PRN Administration Anxiety Magnesium Hydroxide 30 ml 06/19/21 19:21 Milk Of Magnesia 30 Ml Oral.Susp PO DAILY PRN Constipation Metoprolol Succinate 50 mg 06/23/21 09:00 07/04/21 08:19 Metoprolol Succinate Er 50 Mg Tab.Er.24h PO Not Given DAILY [facility] Protocol Ondansetron HCl 4 mg 06/22/21 22:01 Ondansetron Odt 4 Mg Tab.Rapdis TRANSLINGU Q6H PRN Nausea Trazodone HCl 50 mg 07/04/21 09:50 Trazodone Hcl 50 Mg Tablet PO BEDTIME PRN continued insomnia Allergies Allergies Allergy/AdvReac Type Severity Reaction Status Date / Time No Known Allergies Allergy Verified 06/02/21 02:46 [No Known Allergies*] Assessment & Plan Assessment & Plan (1) Acute epididymitis: Status: Acute Code(s): N45.1 - Epididymitis Assessment and Plan: Seven days Levaquin (2) Schizophrenia, paranoid, chronic with acute exacerbation: Status: Acute Code(s): F20.0 - Paranoid schizophrenia Assessment and Plan: speech writer covering 1. Continue Haldol 5 mg daily 2. INCREASED HALDOL BEDTIME DOSE TO 10 MG FOR CONTINUED PARANOID DELUSIONS (discussed case with Marquita) 3. back up IM haldol 5mg IM BID. 4.. Section 8 on 06/29/21. Assessment and Plan: Continue current plan of care. Greater than 50% of the session was spent on counseling and/or coordination of care Reason for contiued inpatient stay Substantial Risk for: rapid decompensation
[2021-07-04] MEDS: HaloperidoL 5 MG TABLET 10 MG PO (19:19)
[2021-07-05 06:00] VITALS: BP 134/72; PULSE 105; RESP 16; TEMP 36.2; O2SAT 97
[2021-07-05] MEDS: HaloperidoL 5 MG TABLET PO (08:16)
--- NOTE | 2021-07-05 15:20 | P.PNPSI_ITS ---
Subjective Subjective Date of Service: 07/06/21 Reason For Visit: Psychosis Subjective Notes: Section 8 Interim History: Pt continues to endorse paranoid delusions towards neighbors although with less intensity. Limited insight as to why he needs psychiatric treatment as he continues to believe paranoia is not product of mental illness. He denies SI/HI. He has been pacing llamas, at times increasingly more agitated but able to deescalate. NO EPS On exam- mild involuntary tongue movement. Medication Compliance: Yes Side effects from medications: No Review of Systems Constitutional: Reports as per HPI, Denies chills and Denies fever(s) Eyes: Reports as per HPI Cardiovascular: Reports no additional cardiovascular complaints and Denies syncope Respiratory: Denies cough Gastrointestinal: Denies abdominal pain and Denies heartburn Genitourinary: Reports as per HPI, Denies change in libido, Reports genital pain and Reports other Reports behavioral changes and Denies syncope Psychiatric: Reports as per HPI, Reports anxiety, Reports behavioral changes, Denies change in libido, Reports difficulty concentrating, Reports auditory hallucinations, Reports irritability, Reports mood swings, Reports paranoia and Reports suicidal ideation Endocrine: Denies change in libido Mental Status Exam Mental Status Exam Narrative: ?Patient Appearance:?Appropriate Patient Orientation:?Person, Place and but not fully Situation Level of Consciousness:?Alert Patient Behavior:?Talkative, and Distractible Mood Description:? good Affect Description:?constricted Patient Cognition Impaired:?No Ability to Follow Directions:?Fair Speech Pattern:?mild to moderately pressued; Spontaneous Speech Memory Description:?Remote Impaired and Episodic Impaired Hallucinations:?denies Delusions:?paranoid, persecutory delusions Thought Process:?goal oriented; repetitive Thought Content:?discharge; denies SI/HI Judgement:?poor Diagnostics Vital Signs (24Hr): Vital Signs - 24 hr 07/05/21 18:00 07/06/21 06:00 Temperature 97.6 F 97.6 F Pulse Rate 121 H 113 H Respiratory Rate 16 Blood Pressure 135/68 164/75 H Pulse Oximetry 94 Body Mass Index 36.2 Labs Results: 06/24/21 21:45 06/19/21 17:56 Medications Medications Current Medications Generic Name Dose Route Start Last Admin Trade Name Freq PRN Reason Stop Dose Admin Acetaminophen 650 mg 06/25/21 08:12 07/02/21 09:36 Acetaminophen 325 Mg Tablet PO 325 mg Q12H PRN Administration Headache/Pain Mild Scale (1-3) Al Hydroxide/Mg Hydroxide 30 ml 06/19/21 19:21 Magnesium Hydrox/Alum Hydrox 30 Ml Oral.Susp PO Q6H PRN Heartburn/Nausea Albuterol Sulfate 1 puff 06/22/21 22:02 06/22/21 22:54 Albuterol Sulfate 90 Mcg 8 Gm Inhaler INHALE 1 puff RQ4H PRN Administration sob/wheezing Aspirin 325 mg 06/24/21 12:00 07/06/21 10:32 Aspirin 325 Mg Tablet PO Not Given DAILY JOE Benztropine Mesylate 0.5 mg 06/23/21 21:00 07/06/21 10:32 Benztropine Mesylate 0.5 Mg Tablet PO Not Given BID JOE Famotidine 20 mg 06/22/21 22:05 07/05/21 20:38 Famotidine 20 Mg Tablet PO Not Given BEDTIME JOE Haloperidol 5 mg 07/05/21 09:00 07/06/21 09:11 Haloperidol 5 Mg Tablet PO 5 mg DAILY JOE Administration Haloperidol 10 mg 07/04/21 21:00 07/05/21 20:31 Haloperidol 5 Mg Tablet PO 10 mg BEDTIME JOE Administration Haloperidol Lactate 5 mg 06/30/21 08:40 Haloperidol Lactate 5 Mg/Ml Vial IM BID PRN if pt refuses oral per court order Hydroxyzine HCl 25 mg 06/19/21 19:21 07/02/21 00:22 Hydroxyzine Hcl 25 Mg Tablet PO 25 mg Q6H PRN Administration Anxiety Magnesium Hydroxide 30 ml 06/19/21 19:21 Milk Of Magnesia 30 Ml Oral.Susp PO DAILY PRN Constipation Metoprolol Succinate 50 mg 06/23/21 09:00 07/06/21 10:32 Metoprolol Succinate Er 50 Mg Tab.Er.24h PO Not Given DAILY [facility] Protocol Ondansetron HCl 4 mg 06/22/21 22:01 Ondansetron Odt 4 Mg Tab.Rapdis TRANSLINGU Q6H PRN Nausea Trazodone HCl 50 mg 07/04/21 09:50 Trazodone Hcl 50 Mg Tablet PO BEDTIME PRN continued insomnia Allergies Allergies Allergy/AdvReac Type Severity Reaction Status Date / Time No Known Allergies Allergy Verified 06/02/21 02:46 [No Known Allergies*] Assessment & Plan Assessment & Plan (1) Acute epididymitis: Status: Acute Code(s): N45.1 - Epididymitis Assessment and Plan: Seven days Levaquin (2) Schizophrenia, paranoid, chronic with acute exacerbation: Status: Acute Code(s): F20.0 - Paranoid schizophrenia Assessment and Plan: Mr. Morrison is a 26 year-old male with hx of schizophrenia who has had 3 previous inpatient admission due to paranoid delusions mostly towards his neighbors. Pt increasingly more paranoia but declining to try more effective antipsychotic. He was committed on 06/29/21. currently on Section 8. PLAN 1. Continue Haldol 5 mg daily- WIll start WALL Decanoate. 2. INCREASED HALDOL BEDTIME DOSE TO 10 MG FOR CONTINUED PARANOID DELUSIONS. 3. back up IM haldol 5mg IM BID. 4.. Section 8 on 06/29/21. Assessment and Plan: Continue current plan of care. Greater than 50% of the session was spent on counseling and/or coordination of care Reason for contiued inpatient stay Substantial Risk for: harm to others
[2021-07-05 18:00] VITALS: BP 135/68; PULSE 121; TEMP 36.4
[2021-07-05] MEDS: HaloperidoL 5 MG TABLET 10 MG PO (20:31)
[2021-07-06 06:00] VITALS: BP 164/75; PULSE 113; RESP 16; TEMP 36.4; O2SAT 94
[2021-07-06 07:00] VITALS: BMI 36.2
[2021-07-06] MEDS: HaloperidoL 5 MG TABLET PO (09:11)
--- NOTE | 2021-07-06 15:24 | HO.PSYCHPN ---
Subjective Subjective Date of Service: 07/06/21 Reason For Visit: Psychosis Interim History: Pt continues to endorse paranoid delusions towards neighbors although with less intensity. Limited insight as to why he needs psychiatric treatment as he continues to believe paranoia is not product of mental illness. He denies SI/HI. He has been pacing llamas, at times increasingly more agitated but able to deescalate. Pt mostly in his room. NO EPS On exam- mild involuntary tongue movement. Medication Compliance: Yes Side effects from medications: No Attending Groups: No Review of Systems Constitutional: Reports as per HPI, Denies chills and Denies fever(s) Eyes: Reports as per HPI Cardiovascular: Reports no additional cardiovascular complaints and Denies syncope Respiratory: Denies cough Gastrointestinal: Denies abdominal pain and Denies heartburn Genitourinary: Reports as per HPI, Denies change in libido, Reports genital pain and Reports other Reports behavioral changes and Denies syncope Psychiatric: Reports as per HPI, Reports anxiety, Reports behavioral changes, Denies change in libido, Reports difficulty concentrating, Reports auditory hallucinations, Reports irritability, Reports mood swings, Reports paranoia and Reports suicidal ideation Endocrine: Denies change in libido Mental Status Exam Mental Status Exam Narrative: ?Patient Appearance:?Appropriate Patient Orientation:?Person, Place and but not fully Situation Level of Consciousness:?Alert Patient Behavior:?Talkative, and Distractible Mood Description:? good Affect Description:?constricted Patient Cognition Impaired:?No Ability to Follow Directions:?Fair Speech Pattern:?mild to moderately pressued; Spontaneous Speech Memory Description:?Remote Impaired and Episodic Impaired Hallucinations:?denies Delusions:?paranoid, persecutory delusions Thought Process:?goal oriented; repetitive Thought Content:?discharge; denies SI/HI Judgement:?poor Memory Description: Remote Impaired and Episodic Impaired Diagnostics Vital Signs (24Hr): Vital Signs - 24 hr 07/05/21 18:00 07/06/21 06:00 Temperature 97.6 F 97.6 F Pulse Rate 121 H 113 H Respiratory Rate 16 Blood Pressure 135/68 164/75 H Pulse Oximetry 94 Body Mass Index 36.2 Labs Results: 06/24/21 21:45 06/19/21 17:56 Medications Medications Current Medications Generic Name Dose Route Start Last Admin Trade Name Freq PRN Reason Stop Dose Admin Acetaminophen 650 mg 06/25/21 08:12 07/02/21 09:36 Acetaminophen 325 Mg Tablet PO 325 mg Q12H PRN Administration Headache/Pain Mild Scale (1-3) Al Hydroxide/Mg Hydroxide 30 ml 06/19/21 19:21 Magnesium Hydrox/Alum Hydrox 30 Ml Oral.Susp PO Q6H PRN Heartburn/Nausea Albuterol Sulfate 1 puff 06/22/21 22:02 06/22/21 22:54 Albuterol Sulfate 90 Mcg 8 Gm Inhaler INHALE 1 puff RQ4H PRN Administration sob/wheezing Aspirin 325 mg 06/24/21 12:00 07/06/21 10:32 Aspirin 325 Mg Tablet PO Not Given DAILY JOE Benztropine Mesylate 0.5 mg 06/23/21 21:00 07/06/21 10:32 Benztropine Mesylate 0.5 Mg Tablet PO Not Given BID JOE Famotidine 20 mg 06/22/21 22:05 07/05/21 20:38 Famotidine 20 Mg Tablet PO Not Given BEDTIME JOE Haloperidol 5 mg 07/05/21 09:00 07/06/21 09:11 Haloperidol 5 Mg Tablet PO 5 mg DAILY JOE Administration Haloperidol 10 mg 07/04/21 21:00 07/05/21 20:31 Haloperidol 5 Mg Tablet PO 10 mg BEDTIME JOE Administration Haloperidol Lactate 5 mg 06/30/21 08:40 Haloperidol Lactate 5 Mg/Ml Vial IM BID PRN if pt refuses oral per court order Hydroxyzine HCl 25 mg 06/19/21 19:21 07/02/21 00:22 Hydroxyzine Hcl 25 Mg Tablet PO 25 mg Q6H PRN Administration Anxiety Magnesium Hydroxide 30 ml 06/19/21 19:21 Milk Of Magnesia 30 Ml Oral.Susp PO DAILY PRN Constipation Metoprolol Succinate 50 mg 06/23/21 09:00 07/06/21 10:32 Metoprolol Succinate Er 50 Mg Tab.Er.24h PO Not Given DAILY [facility] Protocol Ondansetron HCl 4 mg 06/22/21 22:01 Ondansetron Odt 4 Mg Tab.Rapdis TRANSLINGU Q6H PRN Nausea Trazodone HCl 50 mg 07/04/21 09:50 Trazodone Hcl 50 Mg Tablet PO BEDTIME PRN continued insomnia Allergies Allergies Allergy/AdvReac Type Severity Reaction Status Date / Time No Known Allergies Allergy Verified 06/02/21 02:46 [No Known Allergies*] Assessment & Plan Assessment & Plan (1) Acute epididymitis: Status: Acute Code(s): N45.1 - Epididymitis Assessment and Plan: Seven days Levaquin (2) Schizophrenia, paranoid, chronic with acute exacerbation: Status: Acute Code(s): F20.0 - Paranoid schizophrenia Assessment and Plan: Mr. Morrison is a 26 year-old male with hx of schizophrenia who has had 3 previous inpatient admission due to paranoid delusions mostly towards his neighbors. Pt increasingly more paranoia but declining to try more effective antipsychotic. He was committed on 06/29/21. currently on Section 8. PLAN 1. Continue Haldol 5 mg daily- WIll start WALL Decanoate. 2. INCREASED HALDOL BEDTIME DOSE TO 10 MG FOR CONTINUED PARANOID DELUSIONS. 3. back up IM haldol 5mg IM BID. 4.. Section 8 on 06/29/21. Assessment and Plan: Continue current plan of care. Greater than 50% of the session was spent on counseling and/or coordination of care Reason for contiued inpatient stay Substantial Risk for: harm to others
[2021-07-06 18:00] VITALS: BP 131/86; PULSE 104; TEMP 36.7
[2021-07-06] MEDS: HaloperidoL 5 MG TABLET 10 MG PO (20:29)
--- NOTE | 2021-07-07 07:57 | HO.PSYCHPN ---
Subjective Subjective Date of Service: 07/08/21 Reason For Visit: Psychosis Subjective Notes: Section 8 Interim History: He did receive Haldol decanoate- continue on oral haldol given delayed onset. Pt continues to endorse paranoid delusions towards neighbors although with less intensity. Limited insight as to why he needs psychiatric treatment as he continues to believe paranoia is not product of mental illness. He denies SI/HI. He has been pacing llamas, at times increasingly more agitated but able to deescalate. Pt has been more visible in the unit, less agitation. He is social with select peers. NO EPS On exam- mild involuntary tongue movement. Review of Systems Constitutional: Reports as per HPI, Denies chills and Denies fever(s) Eyes: Reports as per HPI Cardiovascular: Reports no additional cardiovascular complaints and Denies syncope Respiratory: Denies cough Gastrointestinal: Denies abdominal pain and Denies heartburn Genitourinary: Reports as per HPI, Denies change in libido, Reports genital pain and Reports other Reports behavioral changes and Denies syncope Psychiatric: Reports as per HPI, Reports anxiety, Reports behavioral changes, Denies change in libido, Reports difficulty concentrating, Reports auditory hallucinations, Reports irritability, Reports mood swings, Reports paranoia and Reports suicidal ideation Endocrine: Denies change in libido Mental Status Exam Mental Status Exam Narrative: ?Patient Appearance:?Appropriate Patient Orientation:?Person, Place and but not fully Situation Level of Consciousness:?Alert Patient Behavior:?Talkative, and Distractible Mood Description:? good Affect Description:?constricted Patient Cognition Impaired:?No Ability to Follow Directions:?Fair Speech Pattern:?mild to moderately pressued; Spontaneous Speech Memory Description:?Remote Impaired and Episodic Impaired Hallucinations:?denies Delusions:?paranoid, persecutory delusions Thought Process:?goal oriented; repetitive Thought Content:?discharge; denies SI/HI Judgement:?poor Diagnostics Vital Signs (24Hr): Vital Signs - 24 hr 07/07/21 18:00 07/08/21 06:00 Temperature 97.9 F 97.1 F Pulse Rate 90 115 H Respiratory Rate 20 Blood Pressure 135/73 126/80 Pulse Oximetry 95 Body Mass Index 36.2 Labs Results: 06/24/21 21:45 06/19/21 17:56 Medications Medications Current Medications Generic Name Dose Route Start Last Admin Trade Name Freq PRN Reason Stop Dose Admin Acetaminophen 650 mg 06/25/21 08:12 07/02/21 09:36 Acetaminophen 325 Mg Tablet PO 325 mg Q12H PRN Administration Headache/Pain Mild Scale (1-3) Al Hydroxide/Mg Hydroxide 30 ml 06/19/21 19:21 Magnesium Hydrox/Alum Hydrox 30 Ml Oral.Susp PO Q6H PRN Heartburn/Nausea Albuterol Sulfate 1 puff 06/22/21 22:02 06/22/21 22:54 Albuterol Sulfate 90 Mcg 8 Gm Inhaler INHALE 1 puff RQ4H PRN Administration sob/wheezing Aspirin 325 mg 06/24/21 12:00 07/07/21 10:53 Aspirin 325 Mg Tablet PO Not Given DAILY OJE Benztropine Mesylate 1 mg 07/07/21 21:00 07/07/21 20:47 Benztropine Mesylate 1 Mg Tablet PO Not Given BEDTIME JOE Famotidine 20 mg 06/22/21 22:05 07/07/21 20:47 Famotidine 20 Mg Tablet PO Not Given BEDTIME JOE Haloperidol Lactate 5 mg 06/30/21 08:40 Haloperidol Lactate 5 Mg/Ml Vial IM BID PRN if pt refuses oral per court order Hydroxyzine HCl 25 mg 06/19/21 19:21 07/02/21 00:22 Hydroxyzine Hcl 25 Mg Tablet PO 25 mg Q6H PRN Administration Anxiety Magnesium Hydroxide 30 ml 06/19/21 19:21 Milk Of Magnesia 30 Ml Oral.Susp PO DAILY PRN Constipation Metoprolol Succinate 50 mg 06/23/21 09:00 07/07/21 10:54 Metoprolol Succinate Er 50 Mg Tab.Er.24h PO Not Given DAILY COUNTS INCLUDE 234 BEDS AT [facility] Protocol Ondansetron HCl 4 mg 06/22/21 22:01 Ondansetron Odt 4 Mg Tab.Rapdis TRANSLINGU Q6H PRN Nausea Trazodone HCl 50 mg 07/04/21 09:50 Trazodone Hcl 50 Mg Tablet PO BEDTIME PRN continued insomnia Allergies Allergies Allergy/AdvReac Type Severity Reaction Status Date / Time No Known Allergies Allergy Verified 06/02/21 02:46 [No Known Allergies*] Assessment & Plan Assessment & Plan (1) Acute epididymitis: Status: Acute Code(s): N45.1 - Epididymitis Assessment and Plan: Seven days Levaquin (2) Schizophrenia, paranoid, chronic with acute exacerbation: Status: Acute Code(s): F20.0 - Paranoid schizophrenia Assessment and Plan: Mr. Morrison is a 26 year-old male with hx of schizophrenia who has had 3 previous inpatient admission due to paranoid delusions mostly towards his neighbors. Pt increasingly more paranoia but declining to try more effective antipsychotic. He was committed on 06/29/21. currently on Section 8. PLAN 1. Continue Haldol 5 mg daily- WIll start WALL Decanoate. 2. INCREASED HALDOL BEDTIME DOSE TO 10 MG FOR CONTINUED PARANOID DELUSIONS. 3. back up IM haldol 5mg IM BID. 4.. Section 8 on 06/29/21. Assessment and Plan: Continue current plan of care. Greater than 50% of the session was spent on counseling and/or coordination of care Reason for contiued inpatient stay Substantial Risk for: harm to others and inability to function
[2021-07-07] MEDS: HaloperidoL 5 MG TABLET PO (10:52)
[2021-07-07 18:00] VITALS: BP 135/73; PULSE 90; TEMP 36.6
[2021-07-08 06:00] VITALS: BP 126/80; PULSE 115; RESP 20; TEMP 36.2; O2SAT 95
--- NOTE | 2021-07-08 13:28 | HO.PSYCHPN ---
Subjective Subjective Date of Service: 07/08/21 Reason For Visit: Psychosis Interim History: receive Haldol dec 07/07/2021. Chart reviewed. Today reports having no concerns. Reports being Ready for discharge and hopefully this will happen within the next week. When asked about neighbors and paranoia, reports that they need to worry about her own stuff and he is okay. Denied medication concerns. Denied depression or SI. Medication Compliance: Yes Side effects from medications: No Review of Systems Acute medical concerns: No Review of Systems Review of Systems noncontributory Mental Status Exam Mental Status Exam Narrative: hospital clothing. Limited self-care. Minimal engagement with some irritability. Denied SI or HI. Denies hallucinations. Does appear guarded. Insight and judgment okay Diagnostics Vital Signs (24Hr): Vital Signs - 24 hr 07/07/21 18:00 07/08/21 06:00 Temperature 97.9 F 97.1 F Pulse Rate 90 115 H Respiratory Rate 20 Blood Pressure 135/73 126/80 Pulse Oximetry 95 Body Mass Index 36.2 Labs Results: 06/24/21 21:45 06/19/21 17:56 Medications Medications Current Medications Generic Name Dose Route Start Last Admin Trade Name Freq PRN Reason Stop Dose Admin Acetaminophen 650 mg 06/25/21 08:12 07/02/21 09:36 Acetaminophen 325 Mg Tablet PO 325 mg Q12H PRN Administration Headache/Pain Mild Scale (1-3) Al Hydroxide/Mg Hydroxide 30 ml 06/19/21 19:21 Magnesium Hydrox/Alum Hydrox 30 Ml Oral.Susp PO Q6H PRN Heartburn/Nausea Albuterol Sulfate 1 puff 06/22/21 22:02 06/22/21 22:54 Albuterol Sulfate 90 Mcg 8 Gm Inhaler INHALE 1 puff RQ4H PRN Administration sob/wheezing Aspirin 325 mg 06/24/21 12:00 07/08/21 08:06 Aspirin 325 Mg Tablet PO Not Given DAILY JOE Benztropine Mesylate 1 mg 07/07/21 21:00 07/07/21 20:47 Benztropine Mesylate 1 Mg Tablet PO Not Given BEDTIME JOE Famotidine 20 mg 06/22/21 22:05 07/07/21 20:47 Famotidine 20 Mg Tablet PO Not Given BEDTIME JOE Haloperidol Lactate 5 mg 06/30/21 08:40 Haloperidol Lactate 5 Mg/Ml Vial IM BID PRN if pt refuses oral per court order Hydroxyzine HCl 25 mg 06/19/21 19:21 07/02/21 00:22 Hydroxyzine Hcl 25 Mg Tablet PO 25 mg Q6H PRN Administration Anxiety Magnesium Hydroxide 30 ml 06/19/21 19:21 Milk Of Magnesia 30 Ml Oral.Susp PO DAILY PRN Constipation Metoprolol Succinate 50 mg 06/23/21 09:00 07/08/21 08:06 Metoprolol Succinate Er 50 Mg Tab.Er.24h PO Not Given DAILY JOE Protocol Ondansetron HCl 4 mg 06/22/21 22:01 Ondansetron Odt 4 Mg Tab.Rapdis TRANSLINGU Q6H PRN Nausea Trazodone HCl 50 mg 07/04/21 09:50 Trazodone Hcl 50 Mg Tablet PO BEDTIME PRN continued insomnia Allergies Allergies Allergy/AdvReac Type Severity Reaction Status Date / Time No Known Allergies Allergy Verified 06/02/21 02:46 [No Known Allergies*] Assessment & Plan Assessment & Plan (1) Acute epididymitis: Status: Acute Code(s): N45.1 - Epididymitis Assessment and Plan: Seven days Levaquin (2) Schizophrenia, paranoid, chronic with acute exacerbation: Status: Acute Code(s): F20.0 - Paranoid schizophrenia Assessment and Plan: Mr. Morrison is a 26 year-old male with hx of schizophrenia who has had 3 previous inpatient admission due to paranoid delusions mostly towards his neighbors. Pt increasingly more paranoia but declining to try more effective antipsychotic. He was committed on 06/29/21. currently on Section 8. PLAN 1. Continue Haldol 5 mg daily- WIll start WALL Decanoate. 2. INCREASED HALDOL BEDTIME DOSE TO 10 MG FOR CONTINUED PARANOID DELUSIONS. 3. back up IM haldol 5mg IM BID. 4.. Section 8 on 06/29/21. 07/08/2021: No changes to primary team's treatment plan Assessment and Plan: Continue current plan of care. Greater than 50% of the session was spent on counseling and/or coordination of care Reason for contiued inpatient stay Substantial Risk for: rapid decompensation
[2021-07-08 16:20] VITALS: BP 131/75; PULSE 101; TEMP 37.1
[2021-07-08] MEDS: HaloperidoL 5 MG TABLET 10 MG PO (20:14)
[2021-07-09 05:10] VITALS: BP 130/77; PULSE 112; RESP 19; TEMP 36.1; O2SAT 95
[2021-07-09] MEDS: HaloperidoL 5 MG TABLET PO (08:15)
--- NOTE | 2021-07-09 12:46 | P.PNPSI_ITS ---
Subjective Subjective Date of Service: 07/09/21 Reason For Visit: Psychosis Interim History: Receive Haldol dec 07/07/2021. Chart reviewed. Will continue oral Haldol as Haldol dec received on 07/07/2021 Since this was the 1st injection needs to continue oral Haldol 5 mg morning and 10 mg at bedtime with 5 mg b.i.d. IM as backup. attempted to engage patient twice today, in bed and some ir ritability and difficult to engage.. Medication Compliance: Yes Side effects from medications: No Review of Systems Acute medical concerns: No Mental Status Exam Mental Status Exam Narrative: hospital clothing.? Limited self-care.? Minimal engagement- attempted twice in room. Some irritability.? no evidence of SI or HI. Does appear guarded. Insight and judgment okay Diagnostics Vital Signs (24Hr): Vital Signs - 24 hr 07/08/21 16:20 07/09/21 05:10 Temperature 98.8 F 96.9 F Pulse Rate 101 H 112 H Respiratory Rate 19 Blood Pressure 131/75 130/77 Pulse Oximetry 95 Body Mass Index 36.2 Labs Results: 06/24/21 21:45 06/19/21 17:56 Medications Medications Current Medications Generic Name Dose Route Start Last Admin Trade Name Freq PRN Reason Stop Dose Admin Acetaminophen 650 mg 06/25/21 08:12 07/02/21 09:36 Acetaminophen 325 Mg Tablet PO 325 mg Q12H PRN Administration Headache/Pain Mild Scale (1-3) Al Hydroxide/Mg Hydroxide 30 ml 06/19/21 19:21 Magnesium Hydrox/Alum Hydrox 30 Ml Oral.Susp PO Q6H PRN Heartburn/Nausea Albuterol Sulfate 1 puff 06/22/21 22:02 06/22/21 22:54 Albuterol Sulfate 90 Mcg 8 Gm Inhaler INHALE 1 puff RQ4H PRN Administration sob/wheezing Aspirin 325 mg 06/24/21 12:00 07/09/21 08:16 Aspirin 325 Mg Tablet PO Not Given DAILY JOE Benztropine Mesylate 1 mg 07/07/21 21:00 07/08/21 20:13 Benztropine Mesylate 1 Mg Tablet PO Not Given BEDTIME JOE Famotidine 20 mg 06/22/21 22:05 07/08/21 20:13 Famotidine 20 Mg Tablet PO Not Given BEDTIME JOE Haloperidol 10 mg 07/08/21 21:00 07/08/21 20:14 Haloperidol 5 Mg Tablet PO 10 mg BEDTIME JOE Administration Haloperidol 5 mg 07/09/21 09:00 07/09/21 08:15 Haloperidol 5 Mg Tablet PO 5 mg DAILY JOE Administration Haloperidol Lactate 5 mg 06/30/21 08:40 Haloperidol Lactate 5 Mg/Ml Vial IM BID PRN if pt refuses oral per court order Hydroxyzine HCl 25 mg 06/19/21 19:21 07/02/21 00:22 Hydroxyzine Hcl 25 Mg Tablet PO 25 mg Q6H PRN Administration Anxiety Magnesium Hydroxide 30 ml 06/19/21 19:21 Milk Of Magnesia 30 Ml Oral.Susp PO DAILY PRN Constipation Metoprolol Succinate 50 mg 06/23/21 09:00 07/09/21 08:16 Metoprolol Succinate Er 50 Mg Tab.Er.24h PO Not Given DAILY JOE Protocol Ondansetron HCl 4 mg 06/22/21 22:01 Ondansetron Odt 4 Mg Tab.Rapdis TRANSLINGU Q6H PRN Nausea Trazodone HCl 50 mg 07/04/21 09:50 Trazodone Hcl 50 Mg Tablet PO BEDTIME PRN continued insomnia Allergies Allergies Allergy/AdvReac Type Severity Reaction Status Date / Time No Known Allergies Allergy Verified 06/02/21 02:46 [No Known Allergies*] Assessment & Plan Assessment & Plan (1) Acute epididymitis: Status: Acute Code(s): N45.1 - Epididymitis Assessment and Plan: Seven days Levaquin (2) Schizophrenia, paranoid, chronic with acute exacerbation: Status: Acute Code(s): F20.0 - Paranoid schizophrenia Assessment and Plan: Mr. Morrison is a 26 year-old male with hx of schizophrenia who has had 3 previous inpatient admission due to paranoid delusions mostly towards his neighbors. Pt increasingly more paranoia but declining to try more effective antipsychotic. He was committed on 06/29/21. currently on Section 8. PLAN 1. Continue Haldol 5 mg daily- WIll start WALL Decanoate. 2. INCREASED HALDOL BEDTIME DOSE TO 10 MG FOR CONTINUED PARANOID DELUSIONS. 3. back up IM haldol 5mg IM BID. 4.. Section 8 on 06/29/21. 07/08/2021: No changes to primary team's treatment plan: continue oral Haldol as Haldol dec received on 07/07/2021 Since this was the 1st injection need to continue oral Haldol 5 mg morning and 10 mg at bedtime with 5 mg b.i.d. IM as backup. Assessment and Plan: Continue current plan of care. Greater than 50% of the session was spent on counseling and/or coordination of care Reason for contiued inpatient stay Substantial Risk for: inability to function
[2021-07-09 18:00] VITALS: RESP 16
[2021-07-09] MEDS: HaloperidoL 5 MG TABLET 10 MG PO (19:59)
[2021-07-10 06:00] VITALS: BP 125/88; PULSE 116; RESP 16; TEMP 36.2; O2SAT 95
[2021-07-10] MEDS: HaloperidoL 5 MG TABLET PO (11:09)
--- NOTE | 2021-07-10 12:47 | P.PNPSI_ITS ---
Subjective Subjective Date of Service: 07/10/21 Reason For Visit: Psychosis Interim History: minimal engagement with flex o writer operator. Was in room sleeping most of the morning. On wakening stated that he was fine and did not need any help or want to talk about anything today. Medication Compliance: Yes Side effects from medications: No Review of Systems Acute medical concerns: No Review of Systems Review of Systems noncontributory Mental Status Exam Mental Status Exam Narrative: hospital clothing.? Limited self-care.? Minimal engagement. No evidence of SI or HI.? Does appear guarded.? Insight and judgment okay Diagnostics Vital Signs (24Hr): Vital Signs - 24 hr 07/09/21 18:00 07/10/21 06:00 Temperature 97.1 F Pulse Rate 116 H Respiratory Rate 16 16 Blood Pressure 125/88 Pulse Oximetry 95 Body Mass Index 36.2 Labs Results: 06/24/21 21:45 06/19/21 17:56 Medications Medications Current Medications Generic Name Dose Route Start Last Admin Trade Name Freq PRN Reason Stop Dose Admin Acetaminophen 650 mg 06/25/21 08:12 07/02/21 09:36 Acetaminophen 325 Mg Tablet PO 325 mg Q12H PRN Administration Headache/Pain Mild Scale (1-3) Al Hydroxide/Mg Hydroxide 30 ml 06/19/21 19:21 Magnesium Hydrox/Alum Hydrox 30 Ml Oral.Susp PO Q6H PRN Heartburn/Nausea Albuterol Sulfate 1 puff 06/22/21 22:02 06/22/21 22:54 Albuterol Sulfate 90 Mcg 8 Gm Inhaler INHALE 1 puff RQ4H PRN Administration sob/wheezing Aspirin 325 mg 06/24/21 12:00 07/10/21 12:10 Aspirin 325 Mg Tablet PO Not Given DAILY JOE Benztropine Mesylate 1 mg 07/07/21 21:00 07/09/21 20:00 Benztropine Mesylate 1 Mg Tablet PO Not Given BEDTIME JOE Famotidine 20 mg 06/22/21 22:05 07/09/21 20:01 Famotidine 20 Mg Tablet PO Not Given BEDTIME JOE Haloperidol 10 mg 07/08/21 21:00 07/09/21 19:59 Haloperidol 5 Mg Tablet PO 10 mg BEDTIME JOE Administration Haloperidol 5 mg 07/09/21 09:00 07/10/21 11:09 Haloperidol 5 Mg Tablet PO 5 mg DAILY JOE Administration Haloperidol Lactate 5 mg 08/27/21 08:40 Haloperidol Lactate 5 Mg/Ml Vial IM BID PRN if pt refuses oral per court order Hydroxyzine HCl 25 mg 06/19/21 19:21 07/02/21 00:22 Hydroxyzine Hcl 25 Mg Tablet PO 25 mg Q6H PRN Administration Anxiety Magnesium Hydroxide 30 ml 06/19/21 19:21 Milk Of Magnesia 30 Ml Oral.Susp PO DAILY PRN Constipation Metoprolol Succinate 50 mg 06/23/21 09:00 07/10/21 12:10 Metoprolol Succinate Er 50 Mg Tab.Er.24h PO Not Given DAILY JOE Protocol Ondansetron HCl 4 mg 06/22/21 22:01 Ondansetron Odt 4 Mg Tab.Rapdis TRANSLINGU Q6H PRN Nausea Trazodone HCl 50 mg 07/04/21 09:50 Trazodone Hcl 50 Mg Tablet PO BEDTIME PRN continued insomnia Allergies Allergies Allergy/AdvReac Type Severity Reaction Status Date / Time No Known Allergies Allergy Verified 06/02/21 02:46 [No Known Allergies*] Assessment & Plan Assessment & Plan (1) Acute epididymitis: Status: Acute Code(s): N45.1 - Epididymitis Assessment and Plan: Seven days Levaquin (2) Schizophrenia, paranoid, chronic with acute exacerbation: Status: Acute Code(s): F20.0 - Paranoid schizophrenia Assessment and Plan: Mr. Morrison is a 26 year-old male with hx of schizophrenia who has had 3 previous inpatient admission due to paranoid delusions mostly towards his neighbors. Pt increasingly more paranoia but declining to try more effective antipsychotic. He was committed on 06/29/21. currently on Section 8. PLAN 1. Continue Haldol 5 mg daily- WIll start WALL Decanoate. 2. INCREASED HALDOL BEDTIME DOSE TO 10 MG FOR CONTINUED PARANOID DELUSIONS. 3. back up IM haldol 5mg IM BID. 4.. Section 8 on 06/29/21. 07/10/2021: No changes to primary team's treatment plan: continue oral Haldol as Haldol dec received on 07/07/2021 Since this was the 1st injection need to continue oral Haldol 5 mg morning and 10 mg at bedtime with 5 mg b.i.d. IM as backup. Assessment and Plan: Continue current plan of care. Greater than 50% of the session was spent on counseling and/or coordination of care Reason for contiued inpatient stay Substantial Risk for: rapid decompensation
[2021-07-10 16:45] VITALS: BP 104/70; PULSE 100; TEMP 36.8
[2021-07-10] MEDS: HaloperidoL 5 MG TABLET 10 MG PO (20:00)
[2021-07-11 06:00] VITALS: BP 116/54; PULSE 112; RESP 16; TEMP 36; O2SAT 94
[2021-07-11] MEDS: HaloperidoL 5 MG TABLET PO (09:21)
--- NOTE | 2021-07-11 10:32 | HO.PSYCHPN ---
Subjective Subjective Date of Service: 07/13/21 Reason For Visit: Psychosis Subjective Notes: Section 8 Interim History: Pt continues to ask to be discharged today. He is minimally engaging in conversation with this music writer. He does continue to report paranoid delusions towards neighbors and not feeling safe to go home. He denies SI/HI. Mostly in his room, not attending groups. Medication Compliance: Yes Side effects from medications: No Review of Systems Acute medical concerns: No Review of Systems Review of Systems noncontributory Constitutional: Reports as per HPI, Denies chills and Denies fever(s) Eyes: Reports as per HPI Cardiovascular: Reports no additional cardiovascular complaints and Denies syncope Respiratory: Denies cough Gastrointestinal: Denies abdominal pain and Denies heartburn Genitourinary: Reports as per HPI, Denies change in libido, Reports genital pain and Reports other Reports behavioral changes and Denies syncope Psychiatric: Reports as per HPI, Reports anxiety, Reports behavioral changes, Denies change in libido, Reports difficulty concentrating, Reports auditory hallucinations, Reports irritability, Reports mood swings, Reports paranoia and Reports suicidal ideation Endocrine: Denies change in libido Mental Status Exam Mental Status Exam Narrative: ?Patient Appearance:?Appropriate Patient Orientation:?Person, Place and but not fully Situation Level of Consciousness:?Alert Patient Behavior:?Talkative, and Distractible Mood Description:? good Affect Description:?constricted Patient Cognition Impaired:?No Ability to Follow Directions:?Fair Speech Pattern:?mild to moderately pressued; Spontaneous Speech Memory Description:?Remote Impaired and Episodic Impaired Hallucinations:?denies Delusions:?paranoid, persecutory delusions Thought Process:?goal oriented; repetitive Thought Content:?discharge; denies SI/HI Judgement:?poor Diagnostics Vital Signs (24Hr): Vital Signs - 24 hr 07/12/21 19:29 07/13/21 06:00 Temperature 97.1 F 97.2 F Pulse Rate 100 103 H Respiratory Rate 16 16 Blood Pressure 136/77 95/54 L Pulse Oximetry 93 95 Body Mass Index 36.2 Labs Results: 06/24/21 21:45 06/19/21 17:56 Medications Medications Current Medications Generic Name Dose Route Start Last Admin Trade Name Freq PRN Reason Stop Dose Admin Acetaminophen 650 mg 06/25/21 08:12 07/02/21 09:36 Acetaminophen 325 Mg Tablet PO 325 mg Q12H PRN Administration Headache/Pain Mild Scale (1-3) Al Hydroxide/Mg Hydroxide 30 ml 06/19/21 19:21 Magnesium Hydrox/Alum Hydrox 30 Ml Oral.Susp PO Q6H PRN Heartburn/Nausea Albuterol Sulfate 1 puff 06/22/21 22:02 06/22/21 22:54 Albuterol Sulfate 90 Mcg 8 Gm Inhaler INHALE 1 puff RQ4H PRN Administration sob/wheezing Aspirin 325 mg 06/24/21 12:00 07/13/21 09:52 Aspirin 325 Mg Tablet PO Not Given DAILY JOE Benztropine Mesylate 1 mg 07/07/21 21:00 07/13/21 09:51 Benztropine Mesylate 1 Mg Tablet PO Not Given BEDTIME JOE Famotidine 20 mg 06/22/21 22:05 07/12/21 21:34 Famotidine 20 Mg Tablet PO Not Given BEDTIME JOE Haloperidol 10 mg 07/08/21 21:00 07/12/21 21:09 Haloperidol 5 Mg Tablet PO 10 mg BEDTIME JOE Administration Haloperidol 5 mg 07/09/21 09:00 07/13/21 09:38 Haloperidol 5 Mg Tablet PO 5 mg DAILY JOE Administration Haloperidol Lactate 5 mg 06/30/21 08:40 Haloperidol Lactate 5 Mg/Ml Vial IM BID PRN if pt refuses oral per court order Hydroxyzine HCl 25 mg 06/19/21 19:21 07/02/21 00:22 Hydroxyzine Hcl 25 Mg Tablet PO 25 mg Q6H PRN Administration Anxiety Magnesium Hydroxide 30 ml 06/19/21 19:21 Milk Of Magnesia 30 Ml Oral.Susp PO DAILY PRN Constipation Metoprolol Succinate 50 mg 06/23/21 09:00 07/13/21 09:52 Metoprolol Succinate Er 50 Mg Tab.Er.24h PO Not Given DAILY [facility] Protocol Ondansetron HCl 4 mg 06/22/21 22:01 Ondansetron Odt 4 Mg Tab.Rapdis TRANSLINGU Q6H PRN Nausea Trazodone HCl 50 mg 07/04/21 09:50 Trazodone Hcl 50 Mg Tablet PO BEDTIME PRN continued insomnia Allergies Allergies Allergy/AdvReac Type Severity Reaction Status Date / Time No Known Allergies Allergy Verified 06/02/21 02:46 [No Known Allergies*] Assessment & Plan Assessment & Plan (1) Acute epididymitis: Status: Acute Code(s): N45.1 - Epididymitis Assessment and Plan: Seven days Levaquin (2) Schizophrenia, paranoid, chronic with acute exacerbation: Status: Acute Code(s): F20.0 - Paranoid schizophrenia Assessment and Plan: Mr. Morrison is a 26 year-old male with hx of schizophrenia who has had 3 previous inpatient admission due to paranoid delusions mostly towards his neighbors. Pt increasingly more paranoia but declining to try more effective antipsychotic. He was committed on 06/29/21. currently on Section 8. PLAN 1. Continue Haldol 5 mg daily- WIll start WALL Decanoate. 2. INCREASED HALDOL BEDTIME DOSE TO 10 MG FOR CONTINUED PARANOID DELUSIONS. 3. back up IM haldol 5mg IM BID. 4.. Section 8 on 06/29/21. 07/10/2021: No changes to primary team's treatment plan: continue oral Haldol as Haldol dec received on 07/07/2021 Since this was the 1st injection need to continue oral Haldol 5 mg morning and 10 mg at bedtime with 5 mg b.i.d. IM as backup. Assessment and Plan: Continue current plan of care. Greater than 50% of the session was spent on counseling and/or coordination of care Reason for contiued inpatient stay Substantial Risk for: harm to others and inability to function
[2021-07-11 19:54] VITALS: BP 111/71; PULSE 88; TEMP 37.1; O2SAT 98
--- NOTE | 2021-07-11 19:55 | PC.NURSE ---
Pt vomited X1 in hallway. Vital signs at 111/71, P:88; )2 94%; Temp:98.8. Pt stated he no longer feel nauseous, reports he vomited because I couldn't go outside today .
[2021-07-11] MEDS: HaloperidoL 5 MG TABLET 10 MG PO (20:35)
[2021-07-12 07:51] VITALS: BP 132/88; PULSE 109; RESP 18; TEMP 35.9; O2SAT 95
[2021-07-12] MEDS: HaloperidoL 5 MG TABLET PO (08:03)
--- NOTE | 2021-07-12 10:34 | P.PNPSI_ITS ---
Subjective Subjective Date of Service: 07/13/21 Reason For Visit: Psychosis Subjective Notes: Section 8 Interim History: Pt continues to demand discharge. He is minimally engaging in conversation with this content writer. He does continue to report paranoid delusions towards neighbors and not feeling safe to go home. He denies SI/HI. Mostly in his room, not attending groups. However, pt has been in fair behavioral control He agreed to WALL next loading dose today. Medication Compliance: Yes Side effects from medications: No Attending Groups: No Review of Systems Review of Systems noncontributory Constitutional: Reports as per HPI, Denies chills and Denies fever(s) Eyes: Reports as per HPI Cardiovascular: Reports no additional cardiovascular complaints and Denies syncope Respiratory: Denies cough Gastrointestinal: Denies abdominal pain and Denies heartburn Genitourinary: Reports as per HPI, Denies change in libido, Reports genital pain and Reports other Reports behavioral changes and Denies syncope Psychiatric: Reports as per HPI, Reports anxiety, Reports behavioral changes, Denies change in libido, Reports difficulty concentrating, Reports auditory hallucinations, Reports irritability, Reports mood swings, Reports paranoia and Reports suicidal ideation Endocrine: Denies change in libido Mental Status Exam Mental Status Exam Narrative: ?Patient Appearance:?Appropriate Patient Orientation:?Person, Place and but not fully Situation Level of Consciousness:?Alert Patient Behavior:?Talkative, and Distractible Mood Description:? good Affect Description:?constricted Patient Cognition Impaired:?No Ability to Follow Directions:?Fair Speech Pattern:?mild to moderately pressued; Spontaneous Speech Memory Description:?Remote Impaired and Episodic Impaired Hallucinations:?denies Delusions:?paranoid, persecutory delusions Thought Process:?goal oriented; repetitive Thought Content:?discharge; denies SI/HI Judgement:?poor Diagnostics Vital Signs (24Hr): Vital Signs - 24 hr 07/12/21 19:29 07/13/21 06:00 Temperature 97.1 F 97.2 F Pulse Rate 100 103 H Respiratory Rate 16 16 Blood Pressure 136/77 95/54 L Pulse Oximetry 93 95 Body Mass Index 36.2 Labs Results: 06/24/21 21:45 06/19/21 17:56 Medications Medications Current Medications Generic Name Dose Route Start Last Admin Trade Name Freq PRN Reason Stop Dose Admin Acetaminophen 650 mg 06/25/21 08:12 07/02/21 09:36 Acetaminophen 325 Mg Tablet PO 325 mg Q12H PRN Administration Headache/Pain Mild Scale (1-3) Al Hydroxide/Mg Hydroxide 30 ml 06/19/21 19:21 Magnesium Hydrox/Alum Hydrox 30 Ml Oral.Susp PO Q6H PRN Heartburn/Nausea Albuterol Sulfate 1 puff 06/22/21 22:02 06/22/21 22:54 Albuterol Sulfate 90 Mcg 8 Gm Inhaler INHALE 1 puff RQ4H PRN Administration sob/wheezing Aspirin 325 mg 06/24/21 12:00 07/13/21 09:52 Aspirin 325 Mg Tablet PO Not Given DAILY JOE Benztropine Mesylate 1 mg 07/07/21 21:00 07/13/21 09:51 Benztropine Mesylate 1 Mg Tablet PO Not Given BEDTIME JOE Famotidine 20 mg 06/22/21 22:05 07/12/21 21:34 Famotidine 20 Mg Tablet PO Not Given BEDTIME JOE Haloperidol 10 mg 07/08/21 21:00 07/12/21 21:09 Haloperidol 5 Mg Tablet PO 10 mg BEDTIME JOE Administration Haloperidol 5 mg 07/09/21 09:00 07/13/21 09:38 Haloperidol 5 Mg Tablet PO 5 mg DAILY JOE Administration Haloperidol Lactate 5 mg 06/30/21 08:40 Haloperidol Lactate 5 Mg/Ml Vial IM BID PRN if pt refuses oral per court order Hydroxyzine HCl 25 mg 06/19/21 19:21 07/02/21 00:22 Hydroxyzine Hcl 25 Mg Tablet PO 25 mg Q6H PRN Administration Anxiety Magnesium Hydroxide 30 ml 06/19/21 19:21 Milk Of Magnesia 30 Ml Oral.Susp PO DAILY PRN Constipation Metoprolol Succinate 50 mg 06/23/21 09:00 07/13/21 09:52 Metoprolol Succinate Er 50 Mg Tab.Er.24h PO Not Given DAILY [facility] Protocol Ondansetron HCl 4 mg 06/22/21 22:01 Ondansetron Odt 4 Mg Tab.Rapdis TRANSLINGU Q6H PRN Nausea Trazodone HCl 50 mg 07/04/21 09:50 Trazodone Hcl 50 Mg Tablet PO BEDTIME PRN continued insomnia Allergies Allergies Allergy/AdvReac Type Severity Reaction Status Date / Time No Known Allergies Allergy Verified 06/02/21 02:46 [No Known Allergies*] Assessment & Plan Assessment & Plan (1) Acute epididymitis: Status: Acute Code(s): N45.1 - Epididymitis Assessment and Plan: Seven days Levaquin (2) Schizophrenia, paranoid, chronic with acute exacerbation: Status: Acute Code(s): F20.0 - Paranoid schizophrenia Assessment and Plan: Mr. Morrison is a 26 year-old male with hx of schizophrenia who has had 3 previous inpatient admission due to paranoid delusions mostly towards his neighbors. Pt increasingly more paranoia but declining to try more effective antipsychotic. He was committed on 06/29/21. currently on Section 8. PLAN 1. Continue Haldol 5 mg daily- WIll start WALL Decanoate. 2. INCREASED HALDOL BEDTIME DOSE TO 10 MG FOR CONTINUED PARANOID DELUSIONS. 3. back up IM haldol 5mg IM BID. 4.. Section 8 on 06/29/21. 07/10/2021: No changes to primary team's treatment plan: continue oral Haldol as Haldol dec received on 07/07/2021 Since this was the 1st injection need to continue oral Haldol 5 mg morning and 10 mg at bedtime with 5 mg b.i.d. IM as backup. Assessment and Plan: Continue current plan of care. Greater than 50% of the session was spent on counseling and/or coordination of care Reason for contiued inpatient stay Substantial Risk for: inability to function
[2021-07-12 19:29] VITALS: BP 136/77; PULSE 100; RESP 16; TEMP 36.2; O2SAT 93
[2021-07-12] MEDS: HaloperidoL 5 MG TABLET 10 MG PO (21:09)
[2021-07-13 06:00] VITALS: BP 95/54; PULSE 103; RESP 16; TEMP 36.2; O2SAT 95
[2021-07-13 07:00] VITALS: BMI 36.6
--- NOTE | 2021-07-13 09:25 | HO.PSYCHPN ---
Subjective Subjective Date of Service: 07/14/21 Reason For Visit: Psychosis Interim History: Pt continues to present with paranoid delusions towards neighbors and still does not feel safe to go to his apartment. He was told he is not being discharged today as he is not stable enough to safely return to community. Pt became very agitated, punch wall, not responding to redirection. He did receive Olanzapine 10 IM. Medication Compliance: Yes Side effects from medications: No Attending Groups: No Review of Systems Acute medical concerns: No Review of Systems Review of Systems noncontributory Constitutional: Reports as per HPI, Denies chills and Denies fever(s) Eyes: Reports as per HPI Cardiovascular: Reports no additional cardiovascular complaints and Denies syncope Respiratory: Denies cough Gastrointestinal: Denies abdominal pain and Denies heartburn Genitourinary: Reports as per HPI, Denies change in libido, Reports genital pain and Reports other Reports behavioral changes and Denies syncope Psychiatric: Reports as per HPI, Reports anxiety, Reports behavioral changes, Denies change in libido, Reports difficulty concentrating, Reports auditory hallucinations, Reports irritability, Reports mood swings, Reports paranoia and Reports suicidal ideation Endocrine: Denies change in libido Mental Status Exam Mental Status Exam Narrative: ?Patient Appearance:?Appropriate Patient Orientation:?Person, Place and but not fully Situation Level of Consciousness:?Alert Patient Behavior:?Talkative, and Distractible Mood Description:? good Affect Description:?constricted Patient Cognition Impaired:?No Ability to Follow Directions:?Fair Speech Pattern:?mild to moderately pressued; Spontaneous Speech Memory Description:?Remote Impaired and Episodic Impaired Hallucinations:?denies Delusions:?paranoid, persecutory delusions Thought Process:?goal oriented; repetitive Thought Content:?discharge; denies SI/HI Judgement:?poor Diagnostics Vital Signs (24Hr): Vital Signs - 24 hr 07/13/21 16:29 07/14/21 06:00 Temperature 97.6 F 96.7 F L Pulse Rate 100 114 H Respiratory Rate 16 Blood Pressure 101/67 145/77 H Pulse Oximetry 94 Body Mass Index 36.6 Labs Results: 06/24/21 21:45 06/19/21 17:56 Medications Medications Current Medications Generic Name Dose Route Start Last Admin Trade Name Freq PRN Reason Stop Dose Admin Acetaminophen 650 mg 06/25/21 08:12 07/02/21 09:36 Acetaminophen 325 Mg Tablet PO 325 mg Q12H PRN Administration Headache/Pain Mild Scale (1-3) Al Hydroxide/Mg Hydroxide 30 ml 06/19/21 19:21 Magnesium Hydrox/Alum Hydrox 30 Ml Oral.Susp PO Q6H PRN Heartburn/Nausea Albuterol Sulfate 1 puff 06/22/21 22:02 06/22/21 22:54 Albuterol Sulfate 90 Mcg 8 Gm Inhaler INHALE 1 puff RQ4H PRN Administration sob/wheezing Aspirin 325 mg 06/24/21 12:00 07/13/21 09:52 Aspirin 325 Mg Tablet PO Not Given DAILY JOE Benztropine Mesylate 1 mg 07/07/21 21:00 07/13/21 20:26 Benztropine Mesylate 1 Mg Tablet PO Not Given BEDTIME JOE Famotidine 20 mg 06/22/21 22:05 07/13/21 20:26 Famotidine 20 Mg Tablet PO Not Given BEDTIME JOE Haloperidol 10 mg 07/08/21 21:00 07/13/21 20:26 Haloperidol 5 Mg Tablet PO 10 mg BEDTIME JOE Administration Haloperidol 5 mg 07/09/21 09:00 07/13/21 09:38 Haloperidol 5 Mg Tablet PO 5 mg DAILY JOE Administration Haloperidol Lactate 5 mg 06/30/21 08:40 Haloperidol Lactate 5 Mg/Ml Vial IM BID PRN if pt refuses oral per court order Hydroxyzine HCl 25 mg 06/19/21 19:21 07/02/21 00:22 Hydroxyzine Hcl 25 Mg Tablet PO 25 mg Q6H PRN Administration Anxiety Magnesium Hydroxide 30 ml 06/19/21 19:21 Milk Of Magnesia 30 Ml Oral.Susp PO DAILY PRN Constipation Metoprolol Succinate 50 mg 06/23/21 09:00 07/13/21 09:52 Metoprolol Succinate Er 50 Mg Tab.Er.24h PO Not Given DAILY [facility] Protocol Ondansetron HCl 4 mg 06/22/21 22:01 Ondansetron Odt 4 Mg Tab.Rapdis TRANSLINGU Q6H PRN Nausea Trazodone HCl 50 mg 07/04/21 09:50 Trazodone Hcl 50 Mg Tablet PO BEDTIME PRN continued insomnia Allergies Allergies Allergy/AdvReac Type Severity Reaction Status Date / Time No Known Allergies Allergy Verified 06/02/21 02:46 [No Known Allergies*] Assessment & Plan Assessment & Plan (1) Acute epididymitis: Status: Acute Code(s): N45.1 - Epididymitis Assessment and Plan: Seven days Levaquin (2) Schizophrenia, paranoid, chronic with acute exacerbation: Status: Acute Code(s): F20.0 - Paranoid schizophrenia Assessment and Plan: Mr. Morrison is a 26 year-old male with hx of schizophrenia who has had 3 previous inpatient admission due to paranoid delusions mostly towards his neighbors. Pt increasingly more paranoia but declining to try more effective antipsychotic. He was committed on 06/29/21. currently on Section 8. PLAN 1. Continue Haldol 5 mg daily- WIll start WALL Decanoate. 2. INCREASED HALDOL BEDTIME DOSE TO 10 MG FOR CONTINUED PARANOID DELUSIONS. 3. back up IM haldol 5mg IM BID. 4.. Section 8 on 06/29/21. 07/10/2021: No changes to primary team's treatment plan: continue oral Haldol as Haldol dec received on 07/07/2021 Since this was the 1st injection need to continue oral Haldol 5 mg morning and 10 mg at bedtime with 5 mg b.i.d. IM as backup. Assessment and Plan: Continue current plan of care. Greater than 50% of the session was spent on counseling and/or coordination of care Reason for contiued inpatient stay Substantial Risk for: inability to function
[2021-07-13] MEDS: HaloperidoL 5 MG TABLET PO (09:38)
[2021-07-13 16:29] VITALS: BP 101/67; PULSE 100; TEMP 36.4
[2021-07-13] MEDS: HaloperidoL 5 MG TABLET 10 MG PO (20:26)
[2021-07-14 06:00] VITALS: BP 145/77; PULSE 114; RESP 16; TEMP 35.9; O2SAT 94
[2021-07-14] MEDS: HaloperidoL 5 MG TABLET PO (09:34)
[2021-07-14 17:35] VITALS: BP 150/80; PULSE 92; RESP 18; TEMP 36.7; O2SAT 97
[2021-07-14] MEDS: HaloperidoL 5 MG TABLET 10 MG PO (20:04)
[2021-07-14] MEDS: Benztropine Mesylate 1 MG TABLET PO (20:04)
[2021-07-15 06:00] VITALS: BP 138/80; PULSE 103; RESP 16; TEMP 36.3; O2SAT 95
[2021-07-15] MEDS: HaloperidoL 5 MG TABLET PO (11:23)
[2021-07-15] MEDS: hydrOXYzine HCL 25 MG TABLET PO (17:57)
[2021-07-15 18:00] VITALS: BP 147/82; PULSE 95; RESP 18; TEMP 37; O2SAT 99
[2021-07-15] MEDS: Famotidine 20 MG TABLET PO (21:16)
[2021-07-15] MEDS: Benztropine Mesylate 1 MG TABLET PO (21:16)
[2021-07-15] MEDS: HaloperidoL 5 MG TABLET 10 MG PO (21:17)
--- NOTE | 2021-07-16 00:28 | HO.PSYCHPN ---
Subjective Subjective Date of Service: 07/15/21 Reason For Visit: Psychosis Subjective Notes: Yu Warning and Section 8 Healthcare Proxy: No Guardianship: No Medical Problems Affecting Mental Status: No Interim History: Patient seen and discussed with team. He is not allowed headphone or phone today due to refusal to cooperate with staff/ unit rules last evening threw phone against wall. Patient evaluated this morning and upon interview he states I want to go home, look where i am. Says he wants to change clothes but does not have clothes here, unable to identify supports who could bring clothes. Says he feels sleepy, woke up at 4am, then slept in, took a shower, and went back to sleep. He is feeling good with medications, I feel okay. Nura is perseverative on wanting to leave today and wanting a change of clothes. Says he wants to go back to his apartment, I need to pay my rent. I asked about his neighbors, says he doesnt care about them, I dont even talk to them, I dont talk to nobody. Wants to go home and use his phone, watch television, im here stuck doing nothing. He denies hallucinations. In the milieu, patient is restless, pacing back and forth. Denies SI/SIB/HI upon inquiry. Has irritability but denies anger or assaultive ideation. Says he feels safe. Medication Compliance: Yes Side effects from medications: No Attending Groups: No Review of Systems Medical Review of Systems: unchanged Mental Status Exam Mental Status Exam Narrative: Narrative:??Patient Appearance:?Appropriate Patient Orientation:?Person, Place and but not fully Situation Level of Consciousness:?Alert Patient Behavior:?Talkative, and Distractible Mood Description:? okay Affect Description:?constricted Patient Cognition Impaired:?No Ability to Follow Directions:?Fair Speech Pattern:?mild to moderately pressued; Spontaneous Speech Memory Description:?Remote Impaired and Episodic Impaired Hallucinations:?denies Delusions:?paranoid, persecutory delusions Thought Process:?goal oriented; repetitive Thought Content:?discharge; denies SI/HI Judgement:?poor Diagnostics Vital Signs (24Hr): Vital Signs - 24 hr 07/15/21 06:00 07/15/21 18:00 Temperature 97.4 F 98.6 F Pulse Rate 103 H 95 Respiratory Rate 16 18 Blood Pressure 138/80 147/82 H Pulse Oximetry 95 99 Body Mass Index 36.6 Labs Results: 06/24/21 21:45 06/19/21 17:56 Medications Medications Current Medications Generic Name Dose Route Start Last Admin Trade Name Freq PRN Reason Stop Dose Admin Acetaminophen 650 mg 06/25/21 08:12 07/02/21 09:36 Acetaminophen 325 Mg Tablet PO 325 mg Q12H PRN Administration Headache/Pain Mild Scale (1-3) Al Hydroxide/Mg Hydroxide 30 ml 06/19/21 19:21 Magnesium Hydrox/Alum Hydrox 30 Ml Oral.Susp PO Q6H PRN Heartburn/Nausea Albuterol Sulfate 1 puff 06/22/21 22:02 06/22/21 22:54 Albuterol Sulfate 90 Mcg 8 Gm Inhaler INHALE 1 puff RQ4H PRN Administration sob/wheezing Aspirin 325 mg 06/24/21 12:00 07/15/21 11:31 Aspirin 325 Mg Tablet PO Not Given DAILY JOE Benztropine Mesylate 1 mg 07/07/21 21:00 07/15/21 21:16 Benztropine Mesylate 1 Mg Tablet PO 1 mg BEDTIME JOE Administration Famotidine 20 mg 06/22/21 22:05 07/15/21 21:16 Famotidine 20 Mg Tablet PO 20 mg BEDTIME JOE Administration Haloperidol 5 mg 07/09/21 09:00 07/15/21 11:23 Haloperidol 5 Mg Tablet PO 5 mg DAILY JOE Administration Haloperidol 10 mg 07/14/21 21:00 07/15/21 21:17 Haloperidol 5 Mg Tablet PO 10 mg BEDTIME JOE Administration Haloperidol Lactate 5 mg 06/30/21 08:40 Haloperidol Lactate 5 Mg/Ml Vial IM BID PRN if pt refuses oral per court order Hydroxyzine HCl 25 mg 06/19/21 19:21 07/15/21 17:57 Hydroxyzine Hcl 25 Mg Tablet PO 25 mg Q6H PRN Administration Anxiety Magnesium Hydroxide 30 ml 06/19/21 19:21 Milk Of Magnesia 30 Ml Oral.Susp PO DAILY PRN Constipation Metoprolol Succinate 50 mg 06/23/21 09:00 07/15/21 11:32 Metoprolol Succinate Er 50 Mg Tab.Er.24h PO Not Given DAILY JOE Protocol Ondansetron HCl 4 mg 06/22/21 22:01 Ondansetron Odt 4 Mg Tab.Rapdis TRANSLINGU Q6H PRN Nausea Trazodone HCl 50 mg 07/04/21 09:50 Trazodone Hcl 50 Mg Tablet PO BEDTIME PRN continued insomnia Allergies Allergies Allergy/AdvReac Type Severity Reaction Status Date / Time No Known Allergies Allergy Verified 06/02/21 02:46 [No Known Allergies*] Assessment & Plan Assessment & Plan (1) Acute epididymitis: Status: Acute Code(s): N45.1 - Epididymitis Assessment and Plan: Seven days Levaquin (2) Schizophrenia, paranoid, chronic with acute exacerbation: Status: Acute Code(s): F20.0 - Paranoid schizophrenia Assessment and Plan: Mr. Morrison is a 26 year-old male with hx of schizophrenia who has had 3 previous inpatient admission due to paranoid delusions mostly towards his neighbors. Pt increasingly more paranoia but declining to try more effective antipsychotic. He was committed on 06/29/21. currently on Section 8. PLAN 1. Continue Haldol 5 mg daily- WIll start WALL Decanoate. 2. Continue increased HALDOL BEDTIME DOSE TO 10 MG FOR CONTINUED PARANOID DELUSIONS. No changes in primary team's treatment plan. 3. back up IM haldol 5mg IM BID. 4.. Section 8 on 06/29/21. 07/07/2021: On haldol dec- Since this was the 1st injection need to continue oral Haldol 5 mg morning and 10 mg at bedtime with 5 mg b.i.d. IM as backup. Assessment and Plan: Continue current plan of care. Greater than 50% of the session was spent on counseling and/or coordination of care Reason for contiued inpatient stay Substantial Risk for: rapid decompensation and med/psych decompensation
[2021-07-16 06:00] VITALS: BP 124/75; PULSE 109; TEMP 36.4; O2SAT 93
[2021-07-16] MEDS: HaloperidoL 5 MG TABLET PO (13:29)
--- NOTE | 2021-07-16 15:06 | HO.PSYCHPN ---
Subjective Subjective Date of Service: 07/16/21 Reason For Visit: Psychosis Subjective Notes: Yu Warning and Section 8 Healthcare Proxy: No Guardianship: No Medical Problems Affecting Mental Status: No Interim History: Patient seen and discussed with team. He slept in this morning. Patient evaluated this morning and upon interview he states he is fine, has been doing laundry. Says his sleep is okay. Again perseverative on discharge says I want to go outside and I want to leave. Says When are they gonna get me discharged, that's the only thing i want to know. Says he feels safe going back to his apartment. In the milieu, patient is restless, pacing back and forth, otherwise lying down. Denies SI/SIB/HI upon inquiry. Has irritability but denies anger or assaultive ideation. Says he feels safe. Medication Compliance: Yes Side effects from medications: No Attending Groups: No Mental Status Exam Mental Status Exam Narrative: Narrative:?Narrative:??Patient Appearance:?Appropriate Patient Orientation:?Person, Place and but not fully Situation Level of Consciousness:?Alert Patient Behavior:?Talkative, and Distractible Mood Description:? fine Affect Description:?constricted Patient Cognition Impaired:?No Ability to Follow Directions:?Fair Speech Pattern:?mild to moderately pressued; Spontaneous Speech Memory Description:?Remote Impaired and Episodic Impaired Hallucinations:?denies Delusions:?paranoid, persecutory delusions Thought Process:?goal oriented; repetitive Thought Content:?discharge; denies SI/HI Judgement:?poor Diagnostics Vital Signs (24Hr): Vital Signs - 24 hr 07/15/21 18:00 07/16/21 06:00 Temperature 98.6 F 97.6 F Pulse Rate 95 109 H Respiratory Rate 18 Blood Pressure 147/82 H 124/75 Pulse Oximetry 99 93 Body Mass Index 36.6 Labs Results: 06/24/21 21:45 06/19/21 17:56 Medications Medications Current Medications Generic Name Dose Route Start Last Admin Trade Name Freq PRN Reason Stop Dose Admin Acetaminophen 650 mg 06/25/21 08:12 07/02/21 09:36 Acetaminophen 325 Mg Tablet PO 325 mg Q12H PRN Administration Headache/Pain Mild Scale (1-3) Al Hydroxide/Mg Hydroxide 30 ml 06/19/21 19:21 Magnesium Hydrox/Alum Hydrox 30 Ml Oral.Susp PO Q6H PRN Heartburn/Nausea Albuterol Sulfate 1 puff 06/22/21 22:02 06/22/21 22:54 Albuterol Sulfate 90 Mcg 8 Gm Inhaler INHALE 1 puff RQ4H PRN Administration sob/wheezing Aspirin 325 mg 06/24/21 12:00 07/16/21 13:31 Aspirin 325 Mg Tablet PO Not Given DAILY JOE Benztropine Mesylate 1 mg 07/07/21 21:00 07/15/21 21:16 Benztropine Mesylate 1 Mg Tablet PO 1 mg BEDTIME JOE Administration Famotidine 20 mg 06/22/21 22:05 07/15/21 21:16 Famotidine 20 Mg Tablet PO 20 mg BEDTIME JOE Administration Haloperidol 5 mg 07/09/21 09:00 07/16/21 13:29 Haloperidol 5 Mg Tablet PO 5 mg DAILY JOE Administration Haloperidol 10 mg 07/14/21 21:00 07/15/21 21:17 Haloperidol 5 Mg Tablet PO 10 mg BEDTIME JOE Administration Haloperidol Lactate 5 mg 06/30/21 08:40 Haloperidol Lactate 5 Mg/Ml Vial IM BID PRN if pt refuses oral per court order Hydroxyzine HCl 25 mg 06/19/21 19:21 07/15/21 17:57 Hydroxyzine Hcl 25 Mg Tablet PO 25 mg Q6H PRN Administration Anxiety Magnesium Hydroxide 30 ml 06/19/21 19:21 Milk Of Magnesia 30 Ml Oral.Susp PO DAILY PRN Constipation Metoprolol Succinate 50 mg 06/23/21 09:00 07/16/21 13:31 Metoprolol Succinate Er 50 Mg Tab.Er.24h PO Not Given DAILY [facility] Protocol Ondansetron HCl 4 mg 06/22/21 22:01 Ondansetron Odt 4 Mg Tab.Rapdis TRANSLINGU Q6H PRN Nausea Trazodone HCl 50 mg 07/04/21 09:50 Trazodone Hcl 50 Mg Tablet PO BEDTIME PRN continued insomnia Allergies Allergies Allergy/AdvReac Type Severity Reaction Status Date / Time No Known Allergies Allergy Verified 06/02/21 02:46 [No Known Allergies*] Assessment & Plan Assessment & Plan (1) Acute epididymitis: Status: Acute Code(s): N45.1 - Epididymitis Assessment and Plan: Seven days Levaquin (2) Schizophrenia, paranoid, chronic with acute exacerbation: Status: Acute Code(s): F20.0 - Paranoid schizophrenia Assessment and Plan: Mr. Morrison is a 26 year-old male with hx of schizophrenia who has had 3 previous inpatient admission due to paranoid delusions mostly towards his neighbors. Pt increasingly more paranoia but declining to try more effective antipsychotic. He was committed on 06/29/21. currently on Section 8. PLAN 1. Continue Haldol 5 mg daily- WIll start WALL Decanoate. 2. Continue increased HALDOL BEDTIME DOSE TO 10 MG FOR CONTINUED PARANOID DELUSIONS. No changes in primary team's treatment plan. 3. back up IM haldol 5mg IM BID. 4.. Section 8 on 06/29/21. 07/07/2021: On haldol dec- Since this was the 1st injection need to continue oral Haldol 5 mg morning and 10 mg at bedtime with 5 mg b.i.d. IM as backup. Assessment and Plan: Continue current plan of care. Greater than 50% of the session was spent on counseling and/or coordination of care Reason for contiued inpatient stay Substantial Risk for: rapid decompensation and med/psych decompensation
[2021-07-16 19:13] VITALS: BP 134/86; PULSE 128; RESP 18; TEMP 36.2; O2SAT 94
[2021-07-16] MEDS: Benztropine Mesylate 1 MG TABLET PO (20:41)
[2021-07-16] MEDS: HaloperidoL 5 MG TABLET 10 MG PO (20:41)
[2021-07-17 06:00] VITALS: BP 143/87; PULSE 118; RESP 20; TEMP 36.5; O2SAT 93
[2021-07-17] MEDS: Aspirin 325 MG TABLET PO (08:49)
[2021-07-17] MEDS: HaloperidoL 5 MG TABLET PO (08:49)
[2021-07-17] MEDS: Albuterol Sulfate 90 MCG 8 GM INHALER 1 PUFF INHALE (09:02)
[2021-07-17 09:06] VITALS: BP 100/53; PULSE 91
--- NOTE | 2021-07-17 09:40 | P.PNPSI_ITS ---
Subjective Subjective Date of Service: 07/18/21 Reason For Visit: Psychosis Subjective Notes: Section 8 Interim History: Pt asking for discharged, not listening to treatment team as we tried to discussed what needs to happen prior to discharge. Pt then able to sit with this loan underwriter and clinician. He initially asking ot be discharged and he would schedule appointments. He is superficially cooperative, denies HI/SI. He reports he plans to go to his apartment. He denies any plan to hurt neighbors but some residual paranoid delusions is evident. Medication Compliance: Yes Side effects from medications: No Review of Systems Review of Systems noncontributory Constitutional: Reports as per HPI, Denies chills and Denies fever(s) Eyes: Reports as per HPI Cardiovascular: Reports no additional cardiovascular complaints and Denies syncope Respiratory: Denies cough Gastrointestinal: Denies abdominal pain and Denies heartburn Genitourinary: Reports as per HPI, Denies change in libido, Reports genital pain and Reports other Reports behavioral changes and Denies syncope Psychiatric: Reports as per HPI, Reports anxiety, Reports behavioral changes, Denies change in libido, Reports difficulty concentrating, Reports auditory hallucinations, Reports irritability, Reports mood swings, Reports paranoia and Reports suicidal ideation Endocrine: Denies change in libido Mental Status Exam Mental Status Exam Narrative: ?Patient Appearance:?dressed in t-shirt Patient Orientation:?Person, Place and but not fully Situation Level of Consciousness:?Alert Patient Behavior:?walking up and down halls, sometimes singing, sometimes swearing Mood Description:? I am ready to go Affect Description:?constricted Patient Cognition Impaired:?No Ability to Follow Directions:?Fair Speech Pattern:?mild to moderately pressued; Spontaneous Speech Hallucinations:?denies Delusions:?paranoid, persecutory delusions Thought Process:?goal oriented; repetitive, concrete Thought Content:?discharge; denies SI/HI Judgement:?poor Diagnostics Vital Signs (24Hr): Vital Signs - 24 hr 07/17/21 16:50 Temperature 97.0 F Pulse Rate 130 H Blood Pressure 129/81 Body Mass Index 36.6 Labs Results: 06/24/21 21:45 06/19/21 17:56 Medications Medications Current Medications Generic Name Dose Route Start Last Admin Trade Name Freq PRN Reason Stop Dose Admin Acetaminophen 650 mg 06/25/21 08:12 07/02/21 09:36 Acetaminophen 325 Mg Tablet PO 325 mg Q12H PRN Administration Headache/Pain Mild Scale (1-3) Al Hydroxide/Mg Hydroxide 30 ml 06/19/21 19:21 Magnesium Hydrox/Alum Hydrox 30 Ml Oral.Susp PO Q6H PRN Heartburn/Nausea Albuterol Sulfate 1 puff 06/22/21 22:02 07/17/21 09:02 Albuterol Sulfate 90 Mcg 8 Gm Inhaler INHALE 1 puff RQ4H PRN Administration sob/wheezing Aspirin 325 mg 06/24/21 12:00 07/17/21 08:49 Aspirin 325 Mg Tablet PO 325 mg DAILY JOE Administration Benztropine Mesylate 1 mg 07/07/21 21:00 07/17/21 20:31 Benztropine Mesylate 1 Mg Tablet PO Not Given BEDTIME JOE Famotidine 20 mg 06/22/21 22:05 07/17/21 20:26 Famotidine 20 Mg Tablet PO Not Given BEDTIME JOE Haloperidol 5 mg 07/09/21 09:00 07/17/21 08:49 Haloperidol 5 Mg Tablet PO 5 mg DAILY JOE Administration Haloperidol 10 mg 07/14/21 21:00 07/17/21 20:26 Haloperidol 5 Mg Tablet PO 10 mg BEDTIME JOE Administration Haloperidol 5 mg 07/16/21 22:21 Haloperidol 5 Mg Tablet PO BID PRN agitation Haloperidol Lactate 5 mg 06/30/21 08:40 Haloperidol Lactate 5 Mg/Ml Vial IM BID PRN if pt refuses oral per court order Hydroxyzine HCl 25 mg 06/19/21 19:21 07/15/21 17:57 Hydroxyzine Hcl 25 Mg Tablet PO 25 mg Q6H PRN Administration Anxiety Magnesium Hydroxide 30 ml 06/19/21 19:21 Milk Of Magnesia 30 Ml Oral.Susp PO DAILY PRN Constipation Metoprolol Succinate 50 mg 06/23/21 09:00 07/17/21 09:06 Metoprolol Succinate Er 50 Mg Tab.Er.24h PO Not Given DAILY [facility] Protocol Ondansetron HCl 4 mg 06/22/21 22:01 Ondansetron Odt 4 Mg Tab.Rapdis TRANSLINGU Q6H PRN Nausea Trazodone HCl 50 mg 07/04/21 09:50 Trazodone Hcl 50 Mg Tablet PO BEDTIME PRN continued insomnia Allergies Allergies Allergy/AdvReac Type Severity Reaction Status Date / Time No Known Allergies Allergy Verified 06/02/21 02:46 [No Known Allergies*] Assessment & Plan Assessment & Plan (1) Acute epididymitis: Status: Acute Code(s): N45.1 - Epididymitis Assessment and Plan: Seven days Levaquin (2) Schizophrenia, paranoid, chronic with acute exacerbation: Status: Acute Code(s): F20.0 - Paranoid schizophrenia Assessment and Plan: Mr. Morrison is a 26 year-old male with hx of schizophrenia who has had 3 previous inpatient admission due to paranoid delusions mostly towards his neighbors. Pt increasingly more paranoia but declining to try more effective antipsychotic. He was committed on 06/29/21. currently on Section 8. Plan: no changes to current tx plan Assessment and Plan: Continue current plan of care. Greater than 50% of the session was spent on counseling and/or coordination of care Reason for contiued inpatient stay Substantial Risk for: inability to function
--- NOTE | 2021-07-17 10:56 | HO.PSYCHPN ---
Subjective Subjective Date of Service: 07/14/21 Reason For Visit: Psychosis Interim History: pt seen on 07/14 (late entry note) brief writer covering Patient calm on approach, walking up and down the halls. He asked why he was not allowed to discharge on the previous day and brief writer explained that his primary team provider fell that he just was not ready. Patient said that he is ready and he has been trying to show he is in a good mood and asked if he will be able to go on Saturday of next week. Bd Special Education Teacher explained that patient's provider will be back by then and he will need to discuss it with her. Patient was mildly irritable with this answer but he accepted it. He denies any other problems and has no other requests. Mental Status Exam Mental Status Exam Narrative: ?Patient Appearance:?dressed in t-shirt Patient Orientation:?Person, Place and but not fully Situation Level of Consciousness:?Alert Patient Behavior:?walking up and down halls, sometimes singing, sometimes swearing Mood Description:? I am ready to go Affect Description:?constricted Patient Cognition Impaired:?No Ability to Follow Directions:?Fair Speech Pattern:?mild to moderately pressued; Spontaneous Speech Hallucinations:?denies Delusions:?paranoid, persecutory delusions Thought Process:?goal oriented; repetitive, concrete Thought Content:?discharge; denies SI/HI Judgement:?poor Diagnostics Vital Signs (24Hr): Vital Signs - 24 hr 07/16/21 19:13 07/17/21 06:00 07/17/21 09:06 Temperature 97.1 F 97.7 F Pulse Rate 128 H 118 H 91 Respiratory Rate 18 20 Blood Pressure 134/86 143/87 H 100/53 L Pulse Oximetry 94 93 Body Mass Index 36.6 Labs Results: 06/24/21 21:45 06/19/21 17:56 Medications Medications Current Medications Generic Name Dose Route Start Last Admin Trade Name Freq PRN Reason Stop Dose Admin Acetaminophen 650 mg 06/25/21 08:12 07/02/21 09:36 Acetaminophen 325 Mg Tablet PO 325 mg Q12H PRN Administration Headache/Pain Mild Scale (1-3) Al Hydroxide/Mg Hydroxide 30 ml 06/19/21 19:21 Magnesium Hydrox/Alum Hydrox 30 Ml Oral.Susp PO Q6H PRN Heartburn/Nausea Albuterol Sulfate 1 puff 06/22/21 22:02 07/17/21 09:02 Albuterol Sulfate 90 Mcg 8 Gm Inhaler INHALE 1 puff RQ4H PRN Administration sob/wheezing Aspirin 325 mg 06/24/21 12:00 07/17/21 08:49 Aspirin 325 Mg Tablet PO 325 mg DAILY JOE Administration Benztropine Mesylate 1 mg 07/07/21 21:00 07/16/21 20:41 Benztropine Mesylate 1 Mg Tablet PO 1 mg BEDTIME JOE Administration Famotidine 20 mg 06/22/21 22:05 07/16/21 22:15 Famotidine 20 Mg Tablet PO Not Given BEDTIME JOE Haloperidol 5 mg 07/09/21 09:00 07/17/21 08:49 Haloperidol 5 Mg Tablet PO 5 mg DAILY JOE Administration Haloperidol 10 mg 07/14/21 21:00 07/16/21 20:41 Haloperidol 5 Mg Tablet PO 10 mg BEDTIME JOE Administration Haloperidol 5 mg 07/16/21 22:21 Haloperidol 5 Mg Tablet PO BID PRN agitation Haloperidol Lactate 5 mg 06/30/21 08:40 Haloperidol Lactate 5 Mg/Ml Vial IM BID PRN if pt refuses oral per court order Hydroxyzine HCl 25 mg 06/19/21 19:21 07/15/21 17:57 Hydroxyzine Hcl 25 Mg Tablet PO 25 mg Q6H PRN Administration Anxiety Magnesium Hydroxide 30 ml 06/19/21 19:21 Milk Of Magnesia 30 Ml Oral.Susp PO DAILY PRN Constipation Metoprolol Succinate 50 mg 06/23/21 09:00 07/17/21 09:06 Metoprolol Succinate Er 50 Mg Tab.Er.24h PO Not Given DAILY [facility] Protocol Ondansetron HCl 4 mg 06/22/21 22:01 Ondansetron Odt 4 Mg Tab.Rapdis TRANSLINGU Q6H PRN Nausea Trazodone HCl 50 mg 07/04/21 09:50 Trazodone Hcl 50 Mg Tablet PO BEDTIME PRN continued insomnia Allergies Allergies Allergy/AdvReac Type Severity Reaction Status Date / Time No Known Allergies Allergy Verified 06/02/21 02:46 [No Known Allergies*] Assessment & Plan Assessment & Plan (1) Acute epididymitis: Status: Acute Code(s): N45.1 - Epididymitis Assessment and Plan: Seven days Levaquin (2) Schizophrenia, paranoid, chronic with acute exacerbation: Status: Acute Code(s): F20.0 - Paranoid schizophrenia Assessment and Plan: Mr. Morrison is a 26 year-old male with hx of schizophrenia who has had 3 previous inpatient admission due to paranoid delusions mostly towards his neighbors. Pt increasingly more paranoia but declining to try more effective antipsychotic. He was committed on 06/29/21. currently on Section 8. Plan: no changes to current tx plan Assessment and Plan: Continue current plan of care. Greater than 50% of the session was spent on counseling and/or coordination of care Reason for contiued inpatient stay Substantial Risk for: inability to function
[2021-07-17 16:50] VITALS: BP 129/81; PULSE 130; TEMP 36.1
[2021-07-17] MEDS: HaloperidoL 5 MG TABLET 10 MG PO (20:26)
[2021-07-18] MEDS: HaloperidoL 5 MG TABLET PO (09:46)
--- NOTE | 2021-07-18 10:21 | HO.PSYCHPN ---
Subjective Subjective Date of Service: 07/19/21 Reason For Visit: Psychosis Interim History: Pt again loud in afternoon, demanding to be discharged. Pt superficially agrees to follow up with op providers but also tells RN and clinician that he does not plan to continue oral medications. He denies SI/HI. He does continue to present with paranoia towards neighbors, thinks they are talking about him. disruptive at times, difficult to redirect. Medication Compliance: Yes Review of Systems Review of Systems noncontributory Constitutional: Reports as per HPI, Denies chills and Denies fever(s) Eyes: Reports as per HPI Cardiovascular: Reports no additional cardiovascular complaints and Denies syncope Respiratory: Denies cough Gastrointestinal: Denies abdominal pain and Denies heartburn Genitourinary: Reports as per HPI, Denies change in libido, Reports genital pain and Reports other Reports behavioral changes and Denies syncope Psychiatric: Reports as per HPI, Reports anxiety, Reports behavioral changes, Denies change in libido, Reports difficulty concentrating, Reports auditory hallucinations, Reports irritability, Reports mood swings, Reports paranoia and Reports suicidal ideation Endocrine: Denies change in libido Mental Status Exam Mental Status Exam Narrative: Narrative:?Appearance: casually groomed, fair hygiene, focused on genital pain Speech: clear, normal rate/rhythm/volume, spontaneous TP: goal oriented- wanting to leave TC:focused on pain;? Mood: upset Affect: anxious, irritable SI: none HI: not observed AH/VH: appears to be responding to internal stimuli Delusions: paranoid delusions towards neighbors Insight/judgment: poor x 2. Diagnostics Vital Signs (24Hr): Vital Signs - 24 hr 07/18/21 17:50 Respiratory Rate 18 Body Mass Index 36.6 Labs Results: 06/24/21 21:45 06/19/21 17:56 Medications Medications Current Medications Generic Name Dose Route Start Last Admin Trade Name Freq PRN Reason Stop Dose Admin Acetaminophen 650 mg 06/25/21 08:12 07/02/21 09:36 Acetaminophen 325 Mg Tablet PO 325 mg Q12H PRN Administration Headache/Pain Mild Scale (1-3) Al Hydroxide/Mg Hydroxide 30 ml 06/19/21 19:21 Magnesium Hydrox/Alum Hydrox 30 Ml Oral.Susp PO Q6H PRN Heartburn/Nausea Albuterol Sulfate 1 puff 06/22/21 22:02 07/17/21 09:02 Albuterol Sulfate 90 Mcg 8 Gm Inhaler INHALE 1 puff RQ4H PRN Administration sob/wheezing Aspirin 325 mg 06/24/21 12:00 07/18/21 09:46 Aspirin 325 Mg Tablet PO Not Given DAILY JOE Benztropine Mesylate 1 mg 07/07/21 21:00 07/18/21 21:14 Benztropine Mesylate 1 Mg Tablet PO Not Given BEDTIME JOE Famotidine 20 mg 06/22/21 22:05 07/18/21 21:15 Famotidine 20 Mg Tablet PO Not Given BEDTIME JOE Haloperidol 5 mg 07/09/21 09:00 07/18/21 09:46 Haloperidol 5 Mg Tablet PO 5 mg DAILY JOE Administration Haloperidol 10 mg 07/14/21 21:00 07/18/21 21:14 Haloperidol 5 Mg Tablet PO 10 mg BEDTIME JOE Administration Haloperidol 5 mg 07/16/21 22:21 Haloperidol 5 Mg Tablet PO BID PRN agitation Haloperidol Lactate 5 mg 06/30/21 08:40 Haloperidol Lactate 5 Mg/Ml Vial IM BID PRN if pt refuses oral per court order Hydroxyzine HCl 25 mg 06/19/21 19:21 07/15/21 17:57 Hydroxyzine Hcl 25 Mg Tablet PO 25 mg Q6H PRN Administration Anxiety Magnesium Hydroxide 30 ml 06/19/21 19:21 Milk Of Magnesia 30 Ml Oral.Susp PO DAILY PRN Constipation Metoprolol Succinate 50 mg 06/23/21 09:00 07/18/21 09:46 Metoprolol Succinate Er 50 Mg Tab.Er.24h PO Not Given DAILY [facility] Protocol Ondansetron HCl 4 mg 06/22/21 22:01 Ondansetron Odt 4 Mg Tab.Rapdis TRANSLINGU Q6H PRN Nausea Trazodone HCl 50 mg 07/04/21 09:50 Trazodone Hcl 50 Mg Tablet PO BEDTIME PRN continued insomnia Allergies Allergies Allergy/AdvReac Type Severity Reaction Status Date / Time No Known Allergies Allergy Verified 06/02/21 02:46 [No Known Allergies*] Assessment & Plan Assessment & Plan (1) Acute epididymitis: Status: Acute Code(s): N45.1 - Epididymitis Assessment and Plan: Seven days Levaquin (2) Schizophrenia, paranoid, chronic with acute exacerbation: Status: Acute Code(s): F20.0 - Paranoid schizophrenia Assessment and Plan: Mr. Morrison is a 26 year-old male with hx of schizophrenia who has had 3 previous inpatient admission due to paranoid delusions mostly towards his neighbors. Pt increasingly more paranoia but declining to try more effective antipsychotic. He was committed on 06/29/21. currently on Section 8. Plan: no changes to current tx plan Assessment and Plan: Continue current plan of care. Greater than 50% of the session was spent on counseling and/or coordination of care Reason for contiued inpatient stay Substantial Risk for: inability to function
[2021-07-18 17:50] VITALS: RESP 18
[2021-07-18] MEDS: HaloperidoL 5 MG TABLET 10 MG PO (21:14)
--- NOTE | 2021-07-19 09:34 | P.EN_ITS ---
Event Note Date of Service: 07/19/21 Event Note: Re: [place] Application Mr. Morrison is a 26 year-old male with hx of schizophrenia who self-presented to the ED after he went to the [place] [facility] reported paranoid delusions towards neighbors. This is his 3rd inpatient psychiatric admission since 04/2021 with similar presentation (mostly increased paranoia towards neighbors). During past admission pt had agreed to start risperidone which was titrated to 3mg po BID. Risperidone had limited therapeutic effect. He was discharged the first two admission with some degree of paranoia towards neighbors, however, at the time there was no concern in terms of imminent risks for harm to self or others. This last admission, pt presented increasingly more paranoia, agitated, labile, making verbal threats towards neighbors. Pt reported that after discharge the last two previous times he went to [facility] as he did not feel safe returning to his apartment due to fear of neighbors trying to hurt him. Pt reported that even at [facility] he could hear neighbors talking about him. Pt initially signed CV, subsequent 3 day notice and had decline to try different antipsychotic despite limited effect on relatively high dose of risperidone. Given that pt presented as increasingly more agitated, labile and making threats towards neighbors, petition to court was file for civil commitment, which was granted on ?06/29/21. Pt was started on haldol, which was titrated to 5mg po daily and 10mg po qhs. Pt had haldol decanoate 100mg IM on 07/07, second loading dose of Haldol decanoate on 100mg IM on 07/12/21. Pt continues to present with paranoia delusions, increasingly more agitated, labile, not responding to redirection. He was started on depakote 1000mg po TID- as part of treatment plan per section 8 on 07/21 and also added Olanzapine 10mg po BID. Pt has tolerated haldol without signs of EPS.
[2021-07-19] MEDS: HaloperidoL 5 MG TABLET PO (12:43)
--- NOTE | 2021-07-19 15:14 | HO.PSYCHPN ---
Subjective Subjective Date of Service: 07/20/21 Reason For Visit: Psychosis Subjective Notes: Section 8 Interim History: Pt continues to present as agitated, intrusive with peers, very disruptive and not able to be redirected. We had initially discussed potential discharge at end of this week. However, pt continues to present as easily explosive behavior, not able to self regulate. At around 4pm, pt was loud, intrusive to peers, not responding to redirection. Pt continued to scalete refusing PRN medications. He went after one of the staff and was hold. Pt was restraint 4 point and given IM olanzapine and ativan. Discussed with pt that his is significantly struggle to self regulate, continues to present as explosive even when initially discussed discharge sometime this week. Diagnostics Vital Signs (24Hr): Body Mass Index 36.6 Labs Results: 06/24/21 21:45 06/19/21 17:56 Medications Medications Current Medications Generic Name Dose Route Start Last Admin Trade Name Freq PRN Reason Stop Dose Admin Acetaminophen 650 mg 06/25/21 08:12 07/02/21 09:36 Acetaminophen 325 Mg Tablet PO 325 mg Q12H PRN Administration Headache/Pain Mild Scale (1-3) Al Hydroxide/Mg Hydroxide 30 ml 06/19/21 19:21 Magnesium Hydrox/Alum Hydrox 30 Ml Oral.Susp PO Q6H PRN Heartburn/Nausea Albuterol Sulfate 1 puff 06/22/21 22:02 07/17/21 09:02 Albuterol Sulfate 90 Mcg 8 Gm Inhaler INHALE 1 puff RQ4H PRN Administration sob/wheezing Aspirin 325 mg 06/24/21 12:00 07/19/21 12:43 Aspirin 325 Mg Tablet PO Not Given DAILY JOE Benztropine Mesylate 1 mg 07/07/21 21:00 07/19/21 20:42 Benztropine Mesylate 1 Mg Tablet PO 1 mg BEDTIME JOE Administration Divalproex Sodium 1,000 mg 07/19/21 21:00 07/19/21 22:38 Divalproex Sodium 500 Mg Tablet.Dr PO Not Given TID JOE Famotidine 20 mg 06/22/21 22:05 07/19/21 22:38 Famotidine 20 Mg Tablet PO Not Given BEDTIME JOE Haloperidol 5 mg 07/09/21 09:00 07/19/21 12:43 Haloperidol 5 Mg Tablet PO 5 mg DAILY JOE Administration Haloperidol 10 mg 07/14/21 21:00 07/19/21 20:32 Haloperidol 5 Mg Tablet PO 10 mg BEDTIME JOE Administration Haloperidol 5 mg 07/16/21 22:21 Haloperidol 5 Mg Tablet PO BID PRN agitation Haloperidol Lactate 5 mg 07/19/21 16:15 Haloperidol Lactate 5 Mg/Ml Vial IM TID PRN if pt refuses oral per court order Hydroxyzine HCl 25 mg 06/19/21 19:21 07/15/21 17:57 Hydroxyzine Hcl 25 Mg Tablet PO 25 mg Q6H PRN Administration Anxiety Magnesium Hydroxide 30 ml 06/19/21 19:21 Milk Of Magnesia 30 Ml Oral.Susp PO DAILY PRN Constipation Metoprolol Succinate 50 mg 06/23/21 09:00 07/19/21 12:43 Metoprolol Succinate Er 50 Mg Tab.Er.24h PO Not Given DAILY JOE Protocol Olanzapine 10 mg 07/19/21 21:00 07/19/21 20:32 Olanzapine 10 Mg Tablet PO 10 mg TID JOE Administration Ondansetron HCl 4 mg 06/22/21 22:01 Ondansetron Odt 4 Mg Tab.Rapdis TRANSLINGU Q6H PRN Nausea Trazodone HCl 50 mg 07/04/21 09:50 Trazodone Hcl 50 Mg Tablet PO BEDTIME PRN continued insomnia Allergies Allergies Allergy/AdvReac Type Severity Reaction Status Date / Time No Known Allergies Allergy Verified 06/02/21 02:46 [No Known Allergies*] Assessment & Plan Assessment & Plan (1) Acute epididymitis: Status: Acute Code(s): N45.1 - Epididymitis Assessment and Plan: Seven days Levaquin (2) Schizophrenia, paranoid, chronic with acute exacerbation: Status: Acute Code(s): F20.0 - Paranoid schizophrenia Assessment and Plan: Mr. Morrison is a 26 year-old male with hx of schizophrenia who has had 3 previous inpatient admission due to paranoid delusions mostly towards his neighbors. Pt increasingly more paranoia but declining to try more effective antipsychotic. He was committed on 06/29/21. currently on Section 8. Plan: 1. continue Haldol 5mg po daily and 15mg po qhs. Received 2 doses of Haldol decanoate 100mg IM 2. Start Olanzapine 10mg po TID back up IM per section 8 3. Start Depakote 1000mg po TID back IM per section 8 Assessment and Plan: Continue current plan of care. Greater than 50% of the session was spent on counseling and/or coordination of care Reason for contiued inpatient stay Substantial Risk for: harm to self, harm to others and inability to function
[2021-07-19] MEDS: LORazepam 2 MG/ML VIAL IM (16:19)
[2021-07-19] MEDS: OLANZapine 10 MG VIAL IM (16:20)
--- NOTE | 2021-07-19 17:17 | PC.NURSE ---
PT WAS LOUDLY SINGING IN HALLWAY. HE WAS ATTEMPTED TO BE REDIRECTED MULTIPLE TIMES PT WAS TOLD IF HE DID NOT STOP SCREAMING, HE WOULD NOT BE ABLE TO LISTEN TO MUSIC FOR THE REST OF THE NIGHT. PT BEGAN VERBALLY ABUSIVE STAFF, YELLING, CALLING THEM NAMES. PT BEGAN GESTURING AT STAFF MEMBER. SECURITY WAS CALLED. PT WAS YELLING AT SECURITY AND TOOL SUPERVISOR. PT ATTEMPTED TO WALK BEHIND THE NURSES STATION TOWARDS STAFF MEMBER. WHEN SECURITY STEPPED IN FRONT OF HIM, PT SWUNG AT THE CHURCH MUSICIAN. PT BEGAN FIGHTING WITH SECURITY AND STAFF PHYSICALLY. PT WAS PUT IN 4 POINT RESTRAINTS AT 1615. PT WAS GIVEN 10MG IM OF ZYPREXA AND 2MG IM OF ATIVAN. PT WAS IN RESTRAINTS UNTIL 1700 DUE TO YELLING, THRASHING, AND VERBALLY THREATENING STAFF. PT WAS LET OUT OF RESTRAINTS AND MAINTAINED CONTROL.
[2021-07-19] MEDS: OLANZapine 10 MG TABLET PO (20:32)
[2021-07-19] MEDS: HaloperidoL 5 MG TABLET 10 MG PO (20:32)
[2021-07-19] MEDS: Benztropine Mesylate 1 MG TABLET PO (20:42)
[2021-07-20] MEDS: OLANZapine 10 MG TABLET PO (14:48)
[2021-07-20] MEDS: HaloperidoL 5 MG TABLET PO (14:48)
[2021-07-20] MEDS: Divalproex Sodium 500 MG TABLET.DR 1000 MG PO (14:50)
--- NOTE | 2021-07-20 15:59 | P.PNPSI_ITS ---
Subjective Subjective Date of Service: 07/21/21 Reason For Visit: Psychosis Subjective Notes: Section 8 Interim History: Pt continues to present as irritable, demanding discharge. It is difficult to have conversation with pt as he has difficulty letting treatment team explain to him concerns about his ability to control his reactions. Despite pt being informed of medication changes to help with impulsivity, explosive behaviors per court treatment pt denies taking additional medications. Pt declined talking with this television writer further. Medication Compliance: Yes Side effects from medications: No Review of Systems Review of Systems noncontributory Constitutional: Reports as per HPI, Denies chills and Denies fever(s) Eyes: Reports as per HPI Cardiovascular: Reports no additional cardiovascular complaints and Denies syncope Respiratory: Denies cough Gastrointestinal: Denies abdominal pain and Denies heartburn Genitourinary: Reports as per HPI, Denies change in libido, Reports genital pain and Reports other Reports behavioral changes and Denies syncope Psychiatric: Reports as per HPI, Reports anxiety, Reports behavioral changes, Denies change in libido, Reports difficulty concentrating, Reports auditory hallucinations, Reports irritability, Reports mood swings, Reports paranoia and Reports suicidal ideation Endocrine: Denies change in libido Mental Status Exam Mental Status Exam Narrative: Narrative:?Appearance: casually groomed, fair hygiene, focused on genital pain Speech: clear, normal rate/rhythm/volume, spontaneous TP: goal oriented- wanting to leave TC:focused on pain;? Mood: upset Affect: anxious, irritable SI: none HI: not observed AH/VH: appears to be responding to internal stimuli Delusions: paranoid delusions towards neighbors Insight/judgment: poor x 2. Diagnostics Vital Signs (24Hr): Vital Signs - 24 hr 07/20/21 17:18 07/21/21 06:00 Temperature 96.8 F Pulse Rate 120 H Respiratory Rate 16 16 Blood Pressure 144/93 H Pulse Oximetry 96 Body Mass Index 36.6 Labs Results: 06/24/21 21:45 06/19/21 17:56 Medications Medications Current Medications Acetaminophen (Acetaminophen 325 Mg Tablet) 650 mg PO Q12H PRN PRN Reason: Headache/Pain Mild Scale (1-3) Last Admin: 07/02/21 09:36 Dose: 325 mg Documented by: Al Hydroxide/Mg Hydroxide (Magnesium Hydrox/Alum Hydrox 30 Ml Oral.Susp) 30 ml PO Q6H PRN PRN Reason: Heartburn/Nausea Albuterol Sulfate (Albuterol Sulfate 90 Mcg 8 Gm Inhaler) 1 puff INHALE RQ4H PRN PRN Reason: sob/wheezing Last Admin: 07/17/21 09:02 Dose: 1 puff Documented by: Aspirin (Aspirin 325 Mg Tablet) 325 mg PO DAILY [facility] Last Admin: 07/21/21 09:47 Dose: Not Given Documented by: Benztropine Mesylate (Benztropine Mesylate 1 Mg Tablet) 1 mg PO BEDTIME [facility] Last Admin: 07/20/21 20:25 Dose: Not Given Documented by: Divalproex Sodium (Divalproex Sodium 500 Mg Tablet.) 1,000 mg PO DAILY [facility] Last Admin: 07/21/21 09:58 Dose: 1,000 mg Documented by: Divalproex Sodium (Divalproex Sodium 500 Mg Tablet.) 2,000 mg PO BEDTIME [facility] Last Admin: 07/20/21 19:25 Dose: 2,000 mg Documented by: Famotidine (Famotidine 20 Mg Tablet) 20 mg PO BEDTIME [facility] Last Admin: 07/20/21 20:26 Dose: Not Given Documented by: Haloperidol (Haloperidol 5 Mg Tablet) 5 mg PO DAILY [facility] Last Admin: 07/21/21 09:53 Dose: 5 mg Documented by: Haloperidol (Haloperidol 5 Mg Tablet) 10 mg PO BEDTIME [facility] Last Admin: 07/20/21 19:25 Dose: 10 mg Documented by: Haloperidol (Haloperidol 5 Mg Tablet) 5 mg PO BID PRN PRN Reason: agitation Hydroxyzine HCl (Hydroxyzine Hcl 25 Mg Tablet) 25 mg PO Q6H PRN PRN Reason: Anxiety Last Admin: 07/15/21 17:57 Dose: 25 mg Documented by: Magnesium Hydroxide (Milk Of Magnesia 30 Ml Oral.Susp) 30 ml PO DAILY PRN PRN Reason: Constipation Metoprolol Succinate (Metoprolol Succinate Er 50 Mg Tab.Er.24h) 50 mg PO DAILY [facility]; Protocol Last Admin: 07/21/21 09:55 Dose: Not Given Documented by: Olanzapine (Olanzapine 10 Mg Tablet) 10 mg PO DAILY@1400 [facility] Last Admin: 07/21/21 14:44 Dose: 10 mg Documented by: Olanzapine (Olanzapine Odt 10 Mg Tab.Rapdis) 10 mg TRANSLINGU DAILY [facility] Last Admin: 07/21/21 10:31 Dose: 10 mg Documented by: Olanzapine (Olanzapine 10 Mg Vial) 5 mg IM BID PRN PRN Reason: if pt refuses oral antips Ondansetron HCl (Ondansetron Odt 4 Mg Tab.Rapdis) 4 mg TRANSLINGU Q6H PRN PRN Reason: Nausea Trazodone HCl (Trazodone Hcl 50 Mg Tablet) 50 mg PO BEDTIME PRN PRN Reason: continued insomnia Allergies Allergies Allergy/AdvReac Type Severity Reaction Status Date / Time No Known Allergies Allergy Verified 06/02/21 02:46 [No Known Allergies*] Assessment & Plan Assessment & Plan (1) Acute epididymitis: Status: Acute Code(s): N45.1 - Epididymitis Assessment and Plan: Seven days Levaquin (2) Schizophrenia, paranoid, chronic with acute exacerbation: Status: Acute Code(s): F20.0 - Paranoid schizophrenia Assessment and Plan: Mr. Morrison is a 26 year-old male with hx of schizophrenia who has had 3 previous inpatient admission due to paranoid delusions mostly towards his neighbors. Pt increasingly more paranoia but declining to try more effective antipsychotic. He was committed on 06/29/21. currently on Section 8. Plan: 1. continue Haldol 5mg po daily and 15mg po qhs. Received 2 doses of Haldol decanoate 100mg IM 2. Start Olanzapine 10mg po TID back up IM per section 8 3. Start Depakote 1000mg po TID back IM per section 8 Assessment and Plan: Continue current plan of care. Greater than 50% of the session was spent on counseling and/or coordination of care Reason for contiued inpatient stay Substantial Risk for: harm to self, harm to others and inability to function
[2021-07-20 17:18] VITALS: RESP 16
[2021-07-20] MEDS: Divalproex Sodium 500 MG TABLET.DR 2000 MG PO (19:25)
[2021-07-20] MEDS: HaloperidoL 5 MG TABLET 10 MG PO (19:25)
[2021-07-21 06:00] VITALS: BP 144/93; PULSE 120; RESP 16; TEMP 36; O2SAT 96
[2021-07-21] MEDS: HaloperidoL 5 MG TABLET PO (09:53)
[2021-07-21] MEDS: Divalproex Sodium 500 MG TABLET.DR 1000 MG PO (09:58)
[2021-07-21] MEDS: OLANZapine ODT 10 MG TAB.RAPDIS TRANSLINGU (10:31)
[2021-07-21] MEDS: OLANZapine 10 MG TABLET PO (14:44)
--- NOTE | 2021-07-21 16:02 | HO.PSYCHPN ---
Subjective Subjective Date of Service: 07/21/21 Reason For Visit: Psychosis Subjective Notes: Section 8 Interim History: Pt slightly calmer today, despite presenting to him form for application to [employer].However, he has difficulty letting treatment team explain to him concerns about his ability to have control over reactions, explosive behaviors. Pt guarded and did not want to talk with this principal technical writer further. Medication Compliance: Yes Side effects from medications: No Review of Systems Review of Systems noncontributory Constitutional: Reports as per HPI, Denies chills and Denies fever(s) Eyes: Reports as per HPI Cardiovascular: Reports no additional cardiovascular complaints and Denies syncope Respiratory: Denies cough Gastrointestinal: Denies abdominal pain and Denies heartburn Genitourinary: Reports as per HPI, Denies change in libido, Reports genital pain and Reports other Reports behavioral changes and Denies syncope Psychiatric: Reports as per HPI, Reports anxiety, Reports behavioral changes, Denies change in libido, Reports difficulty concentrating, Reports auditory hallucinations, Reports irritability, Reports mood swings, Reports paranoia and Reports suicidal ideation Endocrine: Denies change in libido Mental Status Exam Mental Status Exam Narrative: Narrative:?Appearance: casually groomed, fair hygiene, pacing Speech: clear, normal rate/rhythm/volume, spontaneous TP: goal oriented- wanting to leave TC:focused on discharge Mood: upset Affect: anxious, irritable, labile SI: none HI: not observed AH/VH: denies Delusions: paranoid delusions towards neighbors Insight/judgment: poor x 2. Diagnostics Vital Signs (24Hr): Vital Signs - 24 hr 07/20/21 17:18 07/21/21 06:00 Temperature 96.8 F Pulse Rate 120 H Respiratory Rate 16 16 Blood Pressure 144/93 H Pulse Oximetry 96 Body Mass Index 36.6 Labs Results: 06/24/21 21:45 06/19/21 17:56 Medications Medications Current Medications Acetaminophen (Acetaminophen 325 Mg Tablet) 650 mg PO Q12H PRN PRN Reason: Headache/Pain Mild Scale (1-3) Last Admin: 07/02/21 09:36 Dose: 325 mg Documented by: Al Hydroxide/Mg Hydroxide (Magnesium Hydrox/Alum Hydrox 30 Ml Oral.Susp) 30 ml PO Q6H PRN PRN Reason: Heartburn/Nausea Albuterol Sulfate (Albuterol Sulfate 90 Mcg 8 Gm Inhaler) 1 puff INHALE RQ4H PRN PRN Reason: sob/wheezing Last Admin: 07/17/21 09:02 Dose: 1 puff Documented by: Aspirin (Aspirin 325 Mg Tablet) 325 mg PO DAILY [facility] Last Admin: 07/21/21 09:47 Dose: Not Given Documented by: Benztropine Mesylate (Benztropine Mesylate 1 Mg Tablet) 1 mg PO BEDTIME [facility] Last Admin: 07/20/21 20:25 Dose: Not Given Documented by: Divalproex Sodium (Divalproex Sodium 500 Mg Tablet.) 1,000 mg PO DAILY [facility] Last Admin: 07/21/21 09:58 Dose: 1,000 mg Documented by: Divalproex Sodium (Divalproex Sodium 500 Mg Tablet.) 2,000 mg PO BEDTIME [facility] Last Admin: 07/20/21 19:25 Dose: 2,000 mg Documented by: Famotidine (Famotidine 20 Mg Tablet) 20 mg PO BEDTIME [facility] Last Admin: 07/20/21 20:26 Dose: Not Given Documented by: Haloperidol (Haloperidol 5 Mg Tablet) 5 mg PO DAILY [facility] Last Admin: 07/21/21 09:53 Dose: 5 mg Documented by: Haloperidol (Haloperidol 5 Mg Tablet) 10 mg PO BEDTIME [facility] Last Admin: 07/20/21 19:25 Dose: 10 mg Documented by: Haloperidol (Haloperidol 5 Mg Tablet) 5 mg PO BID PRN PRN Reason: agitation Hydroxyzine HCl (Hydroxyzine Hcl 25 Mg Tablet) 25 mg PO Q6H PRN PRN Reason: Anxiety Last Admin: 07/15/21 17:57 Dose: 25 mg Documented by: Magnesium Hydroxide (Milk Of Magnesia 30 Ml Oral.Susp) 30 ml PO DAILY PRN PRN Reason: Constipation Metoprolol Succinate (Metoprolol Succinate Er 50 Mg Tab.Er.24h) 50 mg PO DAILY [facility]; Protocol Last Admin: 07/21/21 09:55 Dose: Not Given Documented by: Olanzapine (Olanzapine 10 Mg Tablet) 10 mg PO DAILY@1400 [facility] Last Admin: 07/21/21 14:44 Dose: 10 mg Documented by: Olanzapine (Olanzapine Odt 10 Mg Tab.Rapdis) 10 mg TRANSLINGU DAILY [facility] Last Admin: 07/21/21 10:31 Dose: 10 mg Documented by: Olanzapine (Olanzapine 10 Mg Vial) 5 mg IM BID PRN PRN Reason: if pt refuses oral antips Ondansetron HCl (Ondansetron Odt 4 Mg Tab.Rapdis) 4 mg TRANSLINGU Q6H PRN PRN Reason: Nausea Trazodone HCl (Trazodone Hcl 50 Mg Tablet) 50 mg PO BEDTIME PRN PRN Reason: continued insomnia Allergies Allergies Allergy/AdvReac Type Severity Reaction Status Date / Time No Known Allergies Allergy Verified 06/02/21 02:46 [No Known Allergies*] Assessment & Plan Assessment & Plan (1) Acute epididymitis: Status: Acute Code(s): N45.1 - Epididymitis Assessment and Plan: Seven days Levaquin (2) Schizophrenia, paranoid, chronic with acute exacerbation: Status: Acute Code(s): F20.0 - Paranoid schizophrenia Assessment and Plan: Mr. Morrison is a 26 year-old male with hx of schizophrenia who has had 3 previous inpatient admission due to paranoid delusions mostly towards his neighbors. Pt increasingly more paranoia but declining to try more effective antipsychotic. He was committed on 06/29/21. currently on Section 8. Plan: 1. continue Haldol 5mg po daily and 15mg po qhs. Received 2 doses of Haldol decanoate 100mg IM 2. Start Olanzapine 10mg po TID back up IM per section 8 3. Start Depakote 1000mg po TID back IM per section 8 Assessment and Plan: Continue current plan of care. Greater than 50% of the session was spent on counseling and/or coordination of care Reason for contiued inpatient stay Substantial Risk for: harm to self, harm to others and inability to function
[2021-07-21 18:00] VITALS: BP 132/75; PULSE 120; TEMP 36.2
[2021-07-21] MEDS: HaloperidoL 5 MG TABLET 10 MG PO (19:18)
[2021-07-21] MEDS: Divalproex Sodium 500 MG TABLET.DR 2000 MG PO (19:18)
--- NOTE | 2021-07-22 10:20 | P.PNPSI_ITS ---
Subjective Subjective Date of Service: 07/22/21 Reason For Visit: Psychosis Interim History: Pt calmer today; took his medication without issue. Says he's good. Mental Status Exam Mental Status Exam Narrative: pt was dressed in [facility] and [facility] pants, a little disheveled; calm; speech normal rate, volume, prosody; thought process goal oriented; thought content: vacuous; no Si/hi; paranoid thinking; affect constricted; Diagnostics Vital Signs (24Hr): Vital Signs - 24 hr 07/21/21 18:00 Temperature 97.2 F Pulse Rate 120 H Blood Pressure 132/75 Body Mass Index 36.6 Labs Results: 06/24/21 21:45 06/19/21 17:56 Medications Medications Current Medications Acetaminophen (Acetaminophen 325 Mg Tablet) 650 mg PO Q12H PRN PRN Reason: Headache/Pain Mild Scale (1-3) Last Admin: 07/02/21 09:36 Dose: 325 mg Documented by: Al Hydroxide/Mg Hydroxide (Magnesium Hydrox/Alum Hydrox 30 Ml Oral.Susp) 30 ml PO Q6H PRN PRN Reason: Heartburn/Nausea Albuterol Sulfate (Albuterol Sulfate 90 Mcg 8 Gm Inhaler) 1 puff INHALE RQ4H PRN PRN Reason: sob/wheezing Last Admin: 07/17/21 09:02 Dose: 1 puff Documented by: Aspirin (Aspirin 325 Mg Tablet) 325 mg PO DAILY [facility] Last Admin: 07/21/21 09:47 Dose: Not Given Documented by: Benztropine Mesylate (Benztropine Mesylate 1 Mg Tablet) 1 mg PO BEDTIME [facility] Last Admin: 07/21/21 19:16 Dose: Not Given Documented by: Divalproex Sodium (Divalproex Sodium 500 Mg Tablet.) 1,000 mg PO DAILY [facility] Last Admin: 07/21/21 09:58 Dose: 1,000 mg Documented by: Divalproex Sodium (Divalproex Sodium 500 Mg Tablet.) 2,000 mg PO BEDTIME [facility] Last Admin: 07/21/21 19:18 Dose: 2,000 mg Documented by: Famotidine (Famotidine 20 Mg Tablet) 20 mg PO BEDTIME [facility] Last Admin: 07/21/21 19:16 Dose: Not Given Documented by: Haloperidol (Haloperidol 5 Mg Tablet) 5 mg PO DAILY [facility] Last Admin: 07/21/21 09:53 Dose: 5 mg Documented by: Haloperidol (Haloperidol 5 Mg Tablet) 10 mg PO BEDTIME [facility] Last Admin: 07/21/21 19:18 Dose: 10 mg Documented by: Haloperidol (Haloperidol 5 Mg Tablet) 5 mg PO BID PRN PRN Reason: agitation Hydroxyzine HCl (Hydroxyzine Hcl 25 Mg Tablet) 25 mg PO Q6H PRN PRN Reason: Anxiety Last Admin: 07/15/21 17:57 Dose: 25 mg Documented by: Magnesium Hydroxide (Milk Of Magnesia 30 Ml Oral.Susp) 30 ml PO DAILY PRN PRN Reason: Constipation Metoprolol Succinate (Metoprolol Succinate Er 50 Mg Tab.Er.24h) 50 mg PO DAILY [facility]; Protocol Last Admin: 07/21/21 09:55 Dose: Not Given Documented by: Olanzapine (Olanzapine 10 Mg Tablet) 10 mg PO DAILY@1400 [facility] Last Admin: 07/21/21 14:44 Dose: 10 mg Documented by: Olanzapine (Olanzapine Odt 10 Mg Tab.Rapdis) 10 mg TRANSLINGU DAILY [facility] Last Admin: 07/21/21 10:31 Dose: 10 mg Documented by: Olanzapine (Olanzapine 10 Mg Vial) 5 mg IM BID PRN PRN Reason: if pt refuses oral antips Ondansetron HCl (Ondansetron Odt 4 Mg Tab.Rapdis) 4 mg TRANSLINGU Q6H PRN PRN Reason: Nausea Trazodone HCl (Trazodone Hcl 50 Mg Tablet) 50 mg PO BEDTIME PRN PRN Reason: continued insomnia Allergies Allergies Allergy/AdvReac Type Severity Reaction Status Date / Time No Known Allergies Allergy Verified 06/02/21 02:46 [No Known Allergies*] Assessment & Plan Assessment & Plan (1) Acute epididymitis: Status: Acute Code(s): N45.1 - Epididymitis Assessment and Plan: Seven days Levaquin (2) Schizophrenia, paranoid, chronic with acute exacerbation: Status: Acute Code(s): F20.0 - Paranoid schizophrenia 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 Morrison is a 26 year-old male with hx of schizophrenia who has had 3 previous inpatient admission due to paranoid delusions mostly towards his neighbors. Pt increasingly more paranoia but declining to try more effective antipsychotic. He was committed on 06/29/21. currently on Section 8. Plan: 1. continue Haldol 5mg po daily and 15mg po qhs. Received 2 doses of Haldol decanoate 100mg IM 2. Start Olanzapine 10mg po TID back up IM per section 8 3. Start Depakote 1000mg po TID back IM per section 8 Assessment and Plan: Continue current plan of care. Greater than 50% of the session was spent on counseling and/or coordination of care Reason for contiued inpatient stay Substantial Risk for: inability to function
[2021-07-22] MEDS: Divalproex Sodium 500 MG TABLET.DR 1000 MG PO (11:37)
[2021-07-22] MEDS: HaloperidoL 5 MG TABLET PO (11:37)
[2021-07-22] MEDS: OLANZapine ODT 10 MG TAB.RAPDIS TRANSLINGU (11:38)
[2021-07-22] MEDS: OLANZapine 10 MG TABLET PO (15:04)
[2021-07-22 19:04] VITALS: BP 128/78; PULSE 78; TEMP 36.8; O2SAT 98
[2021-07-22] MEDS: HaloperidoL 5 MG TABLET 10 MG PO (19:49)
[2021-07-22] MEDS: Divalproex Sodium 500 MG TABLET.DR 2000 MG PO (19:49)
[2021-07-23] MEDS: HaloperidoL 5 MG TABLET PO (11:24)
[2021-07-23] MEDS: OLANZapine ODT 10 MG TAB.RAPDIS TRANSLINGU (11:25)
[2021-07-23] MEDS: Divalproex Sodium 500 MG TABLET.DR 1000 MG PO (11:25)
[2021-07-23 12:30] VITALS: BP 107/58; PULSE 98; RESP 18; TEMP 36.6; O2SAT 98
--- NOTE | 2021-07-23 13:13 | HO.PSYCHPN ---
Subjective Subjective Date of Service: 07/23/21 Reason For Visit: Psychosis Interim History: Patient refused to talk to automotive service writer today. Patient had some hypertension and has refused his blood pressure med yesterday and today. Admitting Manager tried again to address pt regarding his blood pressure but patient just looked at automotive service writer, grunted and walked away. Staff reports patient had poor sleep last night and was irritable on evening shift. Mental Status Exam Mental Status Exam Narrative: pt was dressed in [facility] pants, a little disheveled; calm; speech normal rate, volume, prosody; thought process goal oriented; thought content: vacuous; no Si/hi expressed; paranoid thinking; affect constricted; Diagnostics Vital Signs (24Hr): Vital Signs - 24 hr 07/22/21 19:04 Temperature 98.3 F Pulse Rate 118 H Blood Pressure 127/81 Body Mass Index 36.6 Labs Results: 06/24/21 21:45 06/19/21 17:56 Medications Medications Current Medications Acetaminophen (Acetaminophen 325 Mg Tablet) 650 mg PO Q12H PRN PRN Reason: Headache/Pain Mild Scale (1-3) Last Admin: 07/02/21 09:36 Dose: 325 mg Documented by: Al Hydroxide/Mg Hydroxide (Magnesium Hydrox/Alum Hydrox 30 Ml Oral.Susp) 30 ml PO Q6H PRN PRN Reason: Heartburn/Nausea Albuterol Sulfate (Albuterol Sulfate 90 Mcg 8 Gm Inhaler) 1 puff INHALE RQ4H PRN PRN Reason: sob/wheezing Last Admin: 07/17/21 09:02 Dose: 1 puff Documented by: Aspirin (Aspirin 325 Mg Tablet) 325 mg PO DAILY [facility] Last Admin: 07/23/21 11:25 Dose: Not Given Documented by: Benztropine Mesylate (Benztropine Mesylate 1 Mg Tablet) 1 mg PO BEDTIME [facility] Last Admin: 07/22/21 19:20 Dose: Not Given Documented by: Divalproex Sodium (Divalproex Sodium 500 Mg Tablet.) 1,000 mg PO DAILY [facility] Last Admin: 07/23/21 11:25 Dose: 1,000 mg Documented by: Divalproex Sodium (Divalproex Sodium 500 Mg Tablet.) 2,000 mg PO BEDTIME [facility] Last Admin: 07/22/21 19:49 Dose: 2,000 mg Documented by: Famotidine (Famotidine 20 Mg Tablet) 20 mg PO BEDTIME [facility] Last Admin: 07/22/21 19:20 Dose: Not Given Documented by: Haloperidol (Haloperidol 5 Mg Tablet) 5 mg PO DAILY [facility] Last Admin: 07/23/21 11:24 Dose: 5 mg Documented by: Haloperidol (Haloperidol 5 Mg Tablet) 10 mg PO BEDTIME [facility] Last Admin: 07/22/21 19:49 Dose: 10 mg Documented by: Haloperidol (Haloperidol 5 Mg Tablet) 5 mg PO BID PRN PRN Reason: agitation Hydroxyzine HCl (Hydroxyzine Hcl 25 Mg Tablet) 25 mg PO Q6H PRN PRN Reason: Anxiety Last Admin: 07/15/21 17:57 Dose: 25 mg Documented by: Magnesium Hydroxide (Milk Of Magnesia 30 Ml Oral.Susp) 30 ml PO DAILY PRN PRN Reason: Constipation Metoprolol Succinate (Metoprolol Succinate Er 50 Mg Tab.Er.24h) 50 mg PO DAILY [facility]; Protocol Last Admin: 07/23/21 11:26 Dose: Not Given Documented by: Olanzapine (Olanzapine 10 Mg Tablet) 10 mg PO DAILY@1400 [facility] Last Admin: 07/22/21 15:04 Dose: 10 mg Documented by: Olanzapine (Olanzapine Odt 10 Mg Tab.Rapdis) 10 mg TRANSLINGU DAILY [facility] Last Admin: 07/23/21 11:25 Dose: 10 mg Documented by: Olanzapine (Olanzapine 10 Mg Vial) 5 mg IM BID PRN PRN Reason: if pt refuses oral antips Ondansetron HCl (Ondansetron Odt 4 Mg Tab.Rapdis) 4 mg TRANSLINGU Q6H PRN PRN Reason: Nausea Trazodone HCl (Trazodone Hcl 50 Mg Tablet) 50 mg PO BEDTIME PRN PRN Reason: continued insomnia Allergies Allergies Allergy/AdvReac Type Severity Reaction Status Date / Time No Known Allergies Allergy Verified 06/02/21 02:46 [No Known Allergies*] Assessment & Plan Assessment & Plan (1) Acute epididymitis: Status: Acute Code(s): N45.1 - Epididymitis Assessment and Plan: Seven days Levaquin (2) Schizophrenia, paranoid, chronic with acute exacerbation: Status: Acute Code(s): F20.0 - Paranoid schizophrenia Assessment and Plan: 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 Morrison is a 26 year-old male with hx of schizophrenia who has had 3 previous inpatient admission due to paranoid delusions mostly towards his neighbors. Pt increasingly more paranoia but declining to try more effective antipsychotic. He was committed on 06/29/21. currently on Section 8. Plan: 1. continue Haldol 5mg po daily and 15mg po qhs. Received 2 doses of Haldol decanoate 100mg IM 2. Start Olanzapine 10mg po TID back up IM per section 8 3. Start Depakote 1000mg po TID back IM per section 8 Assessment and Plan: Continue current plan of care. Greater than 50% of the session was spent on counseling and/or coordination of care Reason for contiued inpatient stay Substantial Risk for: inability to function
[2021-07-23] MEDS: OLANZapine 10 MG TABLET PO (14:51)
[2021-07-23 18:00] VITALS: RESP 18
[2021-07-23] MEDS: HaloperidoL 5 MG TABLET 10 MG PO (19:39)
[2021-07-23] MEDS: Divalproex Sodium 500 MG TABLET.DR 2000 MG PO (19:40)
[2021-07-24 06:00] VITALS: BP 139/90; PULSE 97; TEMP 36.4
[2021-07-24] MEDS: Divalproex Sodium 500 MG TABLET.DR 1000 MG PO (10:50)
[2021-07-24] MEDS: OLANZapine ODT 10 MG TAB.RAPDIS TRANSLINGU (10:51)
[2021-07-24] MEDS: HaloperidoL 5 MG TABLET PO (10:51)
--- NOTE | 2021-07-24 13:38 | P.PNPSI_ITS ---
Subjective Subjective Date of Service: 07/24/21 Reason For Visit: Psychosis Subjective Notes: Section 8 Interim History: Pt has been mostly in his room. He is overall calmer with no episodes of explosive behaviors over the weekend. Pt difficult to engage in conversation- he states he feels very tired. He reports fair sleep at night, although mostly in bed during the day. He asks about discharge and wanting to go home soon. Pending labs for depakote level, ammonia, cbc, cmp. Medication Compliance: Yes Side effects from medications: No Attending Groups: No Review of Systems Acute medical concerns: No Review of Systems Review of Systems noncontributory Constitutional: Reports as per HPI, Denies chills and Denies fever(s) Eyes: Reports as per HPI Cardiovascular: Reports no additional cardiovascular complaints and Denies syncope Respiratory: Denies cough Gastrointestinal: Denies abdominal pain and Denies heartburn Genitourinary: Reports as per HPI, Denies change in libido, Reports genital pain and Reports other Reports behavioral changes and Denies syncope Psychiatric: Reports as per HPI, Reports anxiety, Reports behavioral changes, Denies change in libido, Reports difficulty concentrating, Reports auditory hallucinations, Reports irritability, Reports mood swings, Reports paranoia and Reports suicidal ideation Endocrine: Denies change in libido Mental Status Exam Mental Status Exam Narrative: Appearance: [place], wearing hospital gown, disheveled, somnolent, in NAD Behavior:guarded, minimally cooperative psychomotor:somewhat somnolent Speech:clear, normal rate/rhythm/volume, spontaneous Thought process:goal oriented- wanting to be discharged Thought content:upset about being in hospital, guarded, no over threats towards neighbors Mood: fine Affect: calmer, less labile SI:denies HI:denies VH/AH:denies Delusions:some paranoia towards neighbors, medications including medical ones for HTN Insight/judgment:poor x 2. Memory/cog: alert, oriented to month, year, place, less so to situation. Diagnostics Vital Signs (24Hr): Vital Signs - 24 hr 07/23/21 18:00 07/24/21 06:00 Temperature 97.5 F Pulse Rate 97 Respiratory Rate 18 Blood Pressure 139/90 H Body Mass Index 36.6 Labs Results: 06/24/21 21:45 06/19/21 17:56 Medications Medications Current Medications Acetaminophen (Acetaminophen 325 Mg Tablet) 650 mg PO Q12H PRN PRN Reason: Headache/Pain Mild Scale (1-3) Last Admin: 07/02/21 09:36 Dose: 325 mg Documented by: Al Hydroxide/Mg Hydroxide (Magnesium Hydrox/Alum Hydrox 30 Ml Oral.Susp) 30 ml PO Q6H PRN PRN Reason: Heartburn/Nausea Albuterol Sulfate (Albuterol Sulfate 90 Mcg 8 Gm Inhaler) 1 puff INHALE RQ4H PRN PRN Reason: sob/wheezing Last Admin: 07/17/21 09:02 Dose: 1 puff Documented by: Aspirin (Aspirin 325 Mg Tablet) 325 mg PO DAILY [facility] Last Admin: 07/24/21 10:57 Dose: Not Given Documented by: Benztropine Mesylate (Benztropine Mesylate 1 Mg Tablet) 1 mg PO BEDTIME [facility] Last Admin: 07/23/21 20:56 Dose: Not Given Documented by: Divalproex Sodium (Divalproex Sodium 500 Mg Tablet.) 1,000 mg PO DAILY [facility] Last Admin: 07/24/21 10:50 Dose: 1,000 mg Documented by: Divalproex Sodium (Divalproex Sodium 500 Mg Tablet.) 2,000 mg PO BEDTIME [facility] Last Admin: 07/23/21 19:40 Dose: 2,000 mg Documented by: Famotidine (Famotidine 20 Mg Tablet) 20 mg PO BEDTIME [facility] Last Admin: 07/23/21 20:56 Dose: Not Given Documented by: Haloperidol (Haloperidol 5 Mg Tablet) 5 mg PO DAILY [facility] Last Admin: 07/24/21 10:51 Dose: 5 mg Documented by: Haloperidol (Haloperidol 5 Mg Tablet) 10 mg PO BEDTIME [facility] Last Admin: 07/23/21 19:39 Dose: 10 mg Documented by: Haloperidol (Haloperidol 5 Mg Tablet) 5 mg PO BID PRN PRN Reason: agitation Hydroxyzine HCl (Hydroxyzine Hcl 25 Mg Tablet) 25 mg PO Q6H PRN PRN Reason: Anxiety Last Admin: 07/15/21 17:57 Dose: 25 mg Documented by: Magnesium Hydroxide (Milk Of Magnesia 30 Ml Oral.Susp) 30 ml PO DAILY PRN PRN Reason: Constipation Metoprolol Succinate (Metoprolol Succinate Er 50 Mg Tab.Er.24h) 50 mg PO DAILY [facility]; Protocol Last Admin: 07/24/21 10:56 Dose: Not Given Documented by: Olanzapine (Olanzapine 10 Mg Vial) 5 mg IM BID PRN PRN Reason: if pt refuses oral antips Ondansetron HCl (Ondansetron Odt 4 Mg Tab.Rapdis) 4 mg TRANSLINGU Q6H PRN PRN Reason: Nausea Trazodone HCl (Trazodone Hcl 50 Mg Tablet) 50 mg PO BEDTIME PRN PRN Reason: continued insomnia Allergies Allergies Allergy/AdvReac Type Severity Reaction Status Date / Time No Known Allergies Allergy Verified 06/02/21 02:46 [No Known Allergies*] Assessment & Plan Assessment & Plan (1) Acute epididymitis: Status: Acute Code(s): N45.1 - Epididymitis Assessment and Plan: Seven days Levaquin (2) Schizophrenia, paranoid, chronic with acute exacerbation: Status: Acute Code(s): F20.0 - Paranoid schizophrenia 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 Morrison is a 26 year-old male with hx of schizophrenia who has had 3 previous inpatient admission due to paranoid delusions mostly towards his neighbors. Pt increasingly more paranoia but declining to try more effective antipsychotic. He was committed on 06/29/21. currently on Section 8. Plan: 1. continue Haldol 5mg po daily and 15mg po qhs. Received 2 doses of Haldol decanoate 100mg IM 2.D/c olanzapine schedule due to over sedation 3. continue Depakote 1000mg po daily and 2000mg po qhs- back IM per section 8. Pending depakote level, ammonia, cbc w/diff, cmp Assessment and Plan: Continue current plan of care. Greater than 50% of the session was spent on counseling and/or coordination of care Reason for contiued inpatient stay Substantial Risk for: inability to function
[2021-07-24] MEDS: Divalproex Sodium 500 MG TABLET.DR 2000 MG PO (19:27)
[2021-07-24] MEDS: HaloperidoL 5 MG TABLET 10 MG PO (19:27)
[2021-07-25 06:00] VITALS: BP 136/77; PULSE 120; RESP 16; TEMP 36.8; O2SAT 96
[2021-07-25] MEDS: HaloperidoL 5 MG TABLET PO (10:30)
[2021-07-25] MEDS: Divalproex Sodium 500 MG TABLET.DR 1000 MG PO (10:31)
--- NOTE | 2021-07-25 17:08 | HO.PSYCHPN ---
Subjective Subjective Date of Service: 07/25/21 Reason For Visit: Psychosis Interim History: Pt more visible in the unit, still somewhat somnolent but less so. Pt continues to insist about discharge and wanting to go home without engaging in much conversation with this chief underwriter. He denies SI/HI. Pt refused labs again for depakote level, ammonia, cbc, cmp. Medication Compliance: Yes Side effects from medications: No Review of Systems Review of Systems noncontributory Constitutional: Reports as per HPI, Denies chills and Denies fever(s) Eyes: Reports as per HPI Cardiovascular: Reports no additional cardiovascular complaints and Denies syncope Respiratory: Denies cough Gastrointestinal: Denies abdominal pain and Denies heartburn Genitourinary: Reports as per HPI, Denies change in libido, Reports genital pain and Reports other Reports behavioral changes and Denies syncope Psychiatric: Reports as per HPI, Reports anxiety, Reports behavioral changes, Denies change in libido, Reports difficulty concentrating, Reports auditory hallucinations, Reports irritability, Reports mood swings, Reports paranoia and Reports suicidal ideation Endocrine: Denies change in libido Mental Status Exam Mental Status Exam Narrative: Appearance: MO, wearing hospital gown, disheveled, somnolent, in NAD Behavior:guarded, minimally cooperative psychomotor:somewhat somnolent Speech:clear, normal rate/rhythm/volume, spontaneous Thought process:goal oriented- wanting to be discharged Thought content:upset about being in hospital, guarded, no over threats towards neighbors Mood: fine Affect: calmer, less labile SI:denies HI:denies VH/AH:denies Delusions:some paranoia towards neighbors, medications including medical ones for HTN Insight/judgment:poor x 2. Memory/cog: alert, oriented to month, year, place, less so to situation. Diagnostics Vital Signs (24Hr): Vital Signs - 24 hr 07/25/21 06:00 Temperature 98.2 F Pulse Rate 120 H Respiratory Rate 16 Blood Pressure 136/77 Pulse Oximetry 96 Body Mass Index 36.6 Labs Results: 06/24/21 21:45 06/19/21 17:56 Medications Medications Current Medications Acetaminophen (Acetaminophen 325 Mg Tablet) 650 mg PO Q12H PRN PRN Reason: Headache/Pain Mild Scale (1-3) Last Admin: 07/02/21 09:36 Dose: 325 mg Documented by: Al Hydroxide/Mg Hydroxide (Magnesium Hydrox/Alum Hydrox 30 Ml Oral.Susp) 30 ml PO Q6H PRN PRN Reason: Heartburn/Nausea Albuterol Sulfate (Albuterol Sulfate 90 Mcg 8 Gm Inhaler) 1 puff INHALE RQ4H PRN PRN Reason: sob/wheezing Last Admin: 07/17/21 09:02 Dose: 1 puff Documented by: Aspirin (Aspirin 325 Mg Tablet) 325 mg PO DAILY [facility] Last Admin: 07/25/21 11:28 Dose: Not Given Documented by: Benztropine Mesylate (Benztropine Mesylate 1 Mg Tablet) 1 mg PO BEDTIME [facility] Last Admin: 07/24/21 20:23 Dose: Not Given Documented by: Divalproex Sodium (Divalproex Sodium 500 Mg Tablet.) 1,000 mg PO DAILY [facility] Last Admin: 07/25/21 10:31 Dose: 1,000 mg Documented by: Divalproex Sodium (Divalproex Sodium 500 Mg Tablet.) 2,000 mg PO BEDTIME [facility] Last Admin: 07/24/21 19:27 Dose: 2,000 mg Documented by: Famotidine (Famotidine 20 Mg Tablet) 20 mg PO BEDTIME [facility] Last Admin: 07/24/21 20:23 Dose: Not Given Documented by: Haloperidol (Haloperidol 5 Mg Tablet) 5 mg PO DAILY [facility] Last Admin: 07/25/21 10:30 Dose: 5 mg Documented by: Haloperidol (Haloperidol 5 Mg Tablet) 10 mg PO BEDTIME [facility] Last Admin: 07/24/21 19:27 Dose: 10 mg Documented by: Haloperidol (Haloperidol 5 Mg Tablet) 5 mg PO BID PRN PRN Reason: agitation Hydroxyzine HCl (Hydroxyzine Hcl 25 Mg Tablet) 25 mg PO Q6H PRN PRN Reason: Anxiety Last Admin: 07/15/21 17:57 Dose: 25 mg Documented by: Magnesium Hydroxide (Milk Of Magnesia 30 Ml Oral.Susp) 30 ml PO DAILY PRN PRN Reason: Constipation Metoprolol Succinate (Metoprolol Succinate Er 50 Mg Tab.Er.24h) 50 mg PO DAILY [facility]; Protocol Last Admin: 07/25/21 11:28 Dose: Not Given Documented by: Olanzapine (Olanzapine 10 Mg Vial) 5 mg IM BID PRN PRN Reason: if pt refuses oral antips Ondansetron HCl (Ondansetron Odt 4 Mg Tab.Rapdis) 4 mg TRANSLINGU Q6H PRN PRN Reason: Nausea Trazodone HCl (Trazodone Hcl 50 Mg Tablet) 50 mg PO BEDTIME PRN PRN Reason: continued insomnia Allergies Allergies Allergy/AdvReac Type Severity Reaction Status Date / Time No Known Allergies Allergy Verified 06/02/21 02:46 [No Known Allergies*] Assessment & Plan Assessment & Plan (1) Acute epididymitis: Status: Acute Code(s): N45.1 - Epididymitis Assessment and Plan: Seven days Levaquin (2) Schizophrenia, paranoid, chronic with acute exacerbation: Status: Acute Code(s): F20.0 - Paranoid schizophrenia 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 Morrison is a 26 year-old male with hx of schizophrenia who has had 3 previous inpatient admission due to paranoid delusions mostly towards his neighbors. Pt increasingly more paranoia but declining to try more effective antipsychotic. He was committed on 06/29/21. currently on Section 8. Plan: 1. continue Haldol 5mg po daily and 15mg po qhs. Received 2 doses of Haldol decanoate 100mg IM 2.D/c olanzapine schedule due to over sedation 3. continue Depakote 1000mg po daily and 2000mg po qhs- back IM per section 8. Pending depakote level, ammonia, cbc w/diff, cmp Assessment and Plan: Continue current plan of care. Greater than 50% of the session was spent on counseling and/or coordination of care Reason for contiued inpatient stay Substantial Risk for: inability to function
[2021-07-25 18:00] VITALS: BP 128/88; PULSE 130; TEMP 36.7
[2021-07-25] MEDS: Divalproex Sodium 500 MG TABLET.DR 2000 MG PO (20:26)
[2021-07-25] MEDS: HaloperidoL 5 MG TABLET 10 MG PO (20:27)
--- NOTE | 2021-07-26 09:43 | P.PNPSI_ITS ---
Subjective Subjective Date of Service: 07/26/21 Reason For Visit: Psychosis Interim History: Adjunct Instructor In Economics covering Adjunct Instructor In Economics met with patient who was willing to say a hello, but was irritable and refused to discuss. Staff reports he at 1st refused labs last night however he eventually consented staff reports continued irritability. He did take his medications but then seems to vomit afterwards and there a question whether this is purposeful. Mental Status Exam Mental Status Exam Narrative: Appearance: MO, wearing hospital gown, disheveled, somnolent, in NAD Behavior:guarded, minimally cooperative psychomotor:no retardation/agitation present Speech:clear, normal rate/rhythm/volume, spontaneous (overheard talking to others) Thought process:goal oriented- wanting to be discharged Thought content:upset about being in hospital, guarded, no over threats towards neighbors Mood: hello Affect: irritable/scowl SI:denies to staff HI:denies to staff VH/AH:denies Delusions:some paranoia towards neighbors, medications including medical ones for HTN Insight/judgment:poor x 2. Memory/cog: alert, oriented to month, year, place, less so to situation. Diagnostics Vital Signs (24Hr): Vital Signs - 24 hr 07/25/21 18:00 Temperature 98.0 F Pulse Rate 130 H Blood Pressure 128/88 Body Mass Index 36.6 Labs Results: 06/24/21 21:45 06/19/21 17:56 Medications Medications Current Medications Acetaminophen (Acetaminophen 325 Mg Tablet) 650 mg PO Q12H PRN PRN Reason: Headache/Pain Mild Scale (1-3) Last Admin: 07/02/21 09:36 Dose: 325 mg Documented by: Al Hydroxide/Mg Hydroxide (Magnesium Hydrox/Alum Hydrox 30 Ml Oral.Susp) 30 ml PO Q6H PRN PRN Reason: Heartburn/Nausea Albuterol Sulfate (Albuterol Sulfate 90 Mcg 8 Gm Inhaler) 1 puff INHALE RQ4H PRN PRN Reason: sob/wheezing Last Admin: 07/17/21 09:02 Dose: 1 puff Documented by: Aspirin (Aspirin 325 Mg Tablet) 325 mg PO DAILY [facility] Last Admin: 07/25/21 11:28 Dose: Not Given Documented by: Benztropine Mesylate (Benztropine Mesylate 1 Mg Tablet) 1 mg PO BEDTIME [facility] Last Admin: 07/25/21 20:29 Dose: Not Given Documented by: Divalproex Sodium (Divalproex Sodium 500 Mg Tablet.) 1,000 mg PO DAILY [facility] Last Admin: 07/25/21 10:31 Dose: 1,000 mg Documented by: Divalproex Sodium (Divalproex Sodium 500 Mg Tablet.) 2,000 mg PO BEDTIME [facility] Last Admin: 07/25/21 20:26 Dose: 2,000 mg Documented by: Famotidine (Famotidine 20 Mg Tablet) 20 mg PO BEDTIME [facility] Last Admin: 07/25/21 20:29 Dose: Not Given Documented by: Haloperidol (Haloperidol 5 Mg Tablet) 5 mg PO DAILY [facility] Last Admin: 07/25/21 10:30 Dose: 5 mg Documented by: Haloperidol (Haloperidol 5 Mg Tablet) 10 mg PO BEDTIME [facility] Last Admin: 07/25/21 20:27 Dose: 10 mg Documented by: Haloperidol (Haloperidol 5 Mg Tablet) 5 mg PO BID PRN PRN Reason: agitation Hydroxyzine HCl (Hydroxyzine Hcl 25 Mg Tablet) 25 mg PO Q6H PRN PRN Reason: Anxiety Last Admin: 07/15/21 17:57 Dose: 25 mg Documented by: Magnesium Hydroxide (Milk Of Magnesia 30 Ml Oral.Susp) 30 ml PO DAILY PRN PRN Reason: Constipation Metoprolol Succinate (Metoprolol Succinate Er 50 Mg Tab.Er.24h) 50 mg PO DAILY [facility]; Protocol Last Admin: 07/25/21 11:28 Dose: Not Given Documented by: Olanzapine (Olanzapine 10 Mg Vial) 5 mg IM BID PRN PRN Reason: if pt refuses oral antips Ondansetron HCl (Ondansetron Odt 4 Mg Tab.Rapdis) 4 mg TRANSLINGU Q6H PRN PRN Reason: Nausea Trazodone HCl (Trazodone Hcl 50 Mg Tablet) 50 mg PO BEDTIME PRN PRN Reason: continued insomnia Allergies Allergies Allergy/AdvReac Type Severity Reaction Status Date / Time No Known Allergies Allergy Verified 06/02/21 02:46 [No Known Allergies*] Assessment & Plan Assessment & Plan (1) Acute epididymitis: Status: Acute Code(s): N45.1 - Epididymitis Assessment and Plan: Seven days Levaquin (2) Schizophrenia, paranoid, chronic with acute exacerbation: Status: Acute Code(s): F20.0 - Paranoid schizophrenia Assessment and Plan: speech writer covering 07/26 Patient's WBC elevated, a Depakote level not collected Adjunct Instructor In Economics will reorder CBC and Depakote level for tomorrow morning. Case discussed with Maya Juárez, patient's primary provider no other changes made to tx plan Mr. Morrison is a 26 year-old male with hx of schizophrenia who has had 3 previous inpatient admission due to paranoid delusions mostly towards his neighbors. Pt increasingly more paranoia but declining to try more effective antipsychotic. He was committed on 06/29/21. currently on Section 8. Plan: 1. continue Haldol 5mg po daily and 15mg po qhs. Received 2 doses of Haldol decanoate 100mg IM 2.D/c olanzapine schedule due to over sedation 3. continue Depakote 1000mg po daily and 2000mg po qhs- back IM per section 8. Pending depakote level, ammonia, cbc w/diff, cmp Assessment and Plan: Continue current plan of care. Greater than 50% of the session was spent on counseling and/or coordination of care Reason for contiued inpatient stay Substantial Risk for: inability to function
[2021-07-26] MEDS: Divalproex Sodium 500 MG TABLET.DR 1000 MG PO (11:15)
[2021-07-26] MEDS: HaloperidoL 5 MG TABLET PO (11:16)
[2021-07-26 18:00] VITALS: BP 141/69; PULSE 118; RESP 20; TEMP 36.9; O2SAT 94
[2021-07-26] MEDS: HaloperidoL 5 MG TABLET 10 MG PO (20:47)
[2021-07-26] MEDS: Divalproex Sodium 500 MG TABLET.DR 2000 MG PO (20:48)
[2021-07-27 06:00] VITALS: BP 130/76; PULSE 122; RESP 18; TEMP 36.4; O2SAT 95
[2021-07-27 07:00] VITALS: BMI 36.5
[2021-07-27 08:28] LABS: MANUAL DIFF FLAG NO
[2021-07-27 08:56] LABS: Basophils Percent Auto 0.5 % (0-2); Eosinophils Absolute Auto 0.2 X10*3/uL (0.0-0.4); Eosinophils Percent Auto 2.8 % (0-4); Hematocrit 41.6 % (42-52); Hemoglobin 14.5 g/dl (14.0-18.0); Imm Gran Abs Auto 0.02 X10*3/uL (0.00-0.03); Imm Gran Pct Auto 0.3 % (0.0-0.4); Lymphocytes Absolute Auto 2.2 X10*3/uL (1.2-4.9); Lymphocytes Percent Auto 36.4 % (20-40); Mean Corpuscular HGB Conc 34.9 g/dl (31.0-36.0); Mean Corpuscular Hemoglobin 28.9 pg (27.0-33.0); Mean Corpuscular Volume 82.9 fL (80-98); Mean Platelet Volume 9.7 fL (9.4-12.4); Monocytes Absolute Auto 0.6 X10*3/uL (0.1-1.2); Monocytes Percent Auto 10.5 % (2-11); Neutrophils Percent Auto 49.5 % (45-73); Platelet Count 246 X10*3/uL (160-400); Red Blood Count 5.02 X10*6/uL (4.60-5.80)
[2021-07-27 09:13] LABS: Alanine Aminotransferase 74 U/L (0-40); Albumin Level 4.4 g/dL (3.5-5.0); Alkaline Phosphatase 90 U/L (39-117); Aspartate Amino Transferase 29 U/L (5-37); Bilirubin Direct 0.2 mg/dL (0.0-0.5); Bilirubin Total 0.3 mg/dL (0.0-1.0); Total Protein 7.5 g/dL (6.5-8.0)
[2021-07-27 09:21] LABS: Valproate 146.7 mcg/mL (50.0-100.0)
--- NOTE | 2021-07-27 09:22 | PC.NURSE ---
valproic acid level high this morning at 146.71. yudi aguero notified.
--- NOTE | 2021-07-27 09:49 | P.PNPSI_ITS ---
Subjective Subjective Date of Service: 07/28/21 Reason For Visit: Psychosis Subjective Notes: Section 8 Interim History: Pt slightly more visible, no behavioral concerns. Pt asking for discharged, limited conversations after that. He reports he is doing well. He denies SI/HI. He does report feeling somnolent during the day. Pt informed that depakote level was elevated 146 and dose has to be decreased. Note that pt is not showing signs of depakote toxicity despite elevated levels. No ataxia, no confusion, liver function in fact better than when admitted. No episodes of aggression in last 5-6 days. Medication Compliance: Yes Side effects from medications: No Attending Groups: No Review of Systems Acute medical concerns: No Review of Systems Review of Systems noncontributory Constitutional: Reports as per HPI, Denies chills and Denies fever(s) Eyes: Reports as per HPI Cardiovascular: Reports no additional cardiovascular complaints and Denies syncope Respiratory: Denies cough Gastrointestinal: Denies abdominal pain and Denies heartburn Genitourinary: Reports as per HPI, Denies change in libido, Reports genital pain and Reports other Reports behavioral changes and Denies syncope Psychiatric: Reports as per HPI, Reports anxiety, Reports behavioral changes, Denies change in libido, Reports difficulty concentrating, Reports auditory hallucinations, Reports irritability, Reports mood swings, Reports paranoia and Reports suicidal ideation Endocrine: Denies change in libido Mental Status Exam Mental Status Exam Narrative: Appearance: MO, wearing hospital gown, disheveled, somnolent, in NAD Behavior:superficially cooperative psychomotor:no retardation/agitation present Speech:clear, normal rate/rhythm/volume, spontaneous (overheard talking to others) Thought process:goal oriented- wanting to be discharged Thought content:less paranoia, less irritability towards staff/being in hospital but wanting to be discharged Mood: fine Affect: congruent SI:denies HI:denies VH/AH:denies Delusions:less guarded and paranoid, Insight/judgment:poor x 2. Memory/cog: alert, oriented to month, year, place, less so to situation. Diagnostics Vital Signs (24Hr): Vital Signs - 24 hr 07/27/21 19:25 Temperature 98.5 F Pulse Rate 110 H Blood Pressure 139/67 Body Mass Index 36.5 Labs Results: 07/27/21 08:22 06/19/21 17:56 Labs: Laboratory Results - last 48 hr 07/27/21 07/27/21 07/28/21 08:22 08:22 08:10 WBC 6.0 RBC 5.02 Hgb 14.5 Hct 41.6 L MCV 82.9 MCH 28.9 MCHC 34.9 RDW 12.0 Plt Count 246 MPV 9.7 Immature Gran % (Auto) 0.3 Neut % (Auto) 49.5 Lymph % (Auto) 36.4 [place] % (Auto) 10.5 Eos % (Auto) 2.8 Baso % (Auto) 0.5 Lymph # (Auto) 2.2 [place] # (Auto) 0.6 Eos # (Auto) 0.2 Baso # (Auto) 0.0 Abs Immat Gran (auto) 0.02 Absolute Neuts (auto) 3.0 Absolute Nucleated RBC 0.000 Nucleated RBC % (auto) 0.0 Total Bilirubin 0.3 Direct Bilirubin 0.2 AST 29 ALT 74 H Alkaline Phosphatase 90 Ammonia Total Protein 7.5 Albumin 4.4 Valproic Acid 146.7 H* 44.2 L 07/28/21 08:10 WBC RBC Hgb Hct MCV MCH MCHC RDW Plt Count MPV Immature Gran % (Auto) Neut % (Auto) Lymph % (Auto) [place] % (Auto) Eos % (Auto) Baso % (Auto) Lymph # (Auto) [place] # (Auto) Eos # (Auto) Baso # (Auto) Abs Immat Gran (auto) Absolute Neuts (auto) Absolute Nucleated RBC Nucleated RBC % (auto) Total Bilirubin Direct Bilirubin AST ALT Alkaline Phosphatase Ammonia 50 Total Protein Albumin Valproic Acid Medications Medications Current Medications Acetaminophen (Acetaminophen 325 Mg Tablet) 650 mg PO Q12H PRN PRN Reason: Headache/Pain Mild Scale (1-3) Last Admin: 07/02/21 09:36 Dose: 325 mg Documented by: Al Hydroxide/Mg Hydroxide (Magnesium Hydrox/Alum Hydrox 30 Ml Oral.Susp) 30 ml PO Q6H PRN PRN Reason: Heartburn/Nausea Albuterol Sulfate (Albuterol Sulfate 90 Mcg 8 Gm Inhaler) 1 puff INHALE RQ4H PRN PRN Reason: sob/wheezing Last Admin: 07/17/21 09:02 Dose: 1 puff Documented by: Aspirin (Aspirin 325 Mg Tablet) 325 mg PO DAILY [facility] Last Admin: 07/27/21 10:29 Dose: Not Given Documented by: Benztropine Mesylate (Benztropine Mesylate 1 Mg Tablet) 1 mg PO BEDTIME [facility] Last Admin: 07/27/21 19:22 Dose: Not Given Documented by: Divalproex Sodium (Divalproex Sodium 500 Mg Tablet.Dr) 1,000 mg PO BID [facility] Famotidine (Famotidine 20 Mg Tablet) 20 mg PO BEDTIME [facility] Last Admin: 07/27/21 19:22 Dose: Not Given Documented by: Haloperidol (Haloperidol 5 Mg Tablet) 5 mg PO DAILY [facility] Last Admin: 07/27/21 10:27 Dose: 5 mg Documented by: Haloperidol (Haloperidol 5 Mg Tablet) 10 mg PO BEDTIME [facility] Last Admin: 07/27/21 19:21 Dose: 10 mg Documented by: Haloperidol (Haloperidol 5 Mg Tablet) 5 mg PO BID PRN PRN Reason: agitation Hydroxyzine HCl (Hydroxyzine Hcl 25 Mg Tablet) 25 mg PO Q6H PRN PRN Reason: Anxiety Last Admin: 07/15/21 17:57 Dose: 25 mg Documented by: Magnesium Hydroxide (Milk Of Magnesia 30 Ml Oral.Susp) 30 ml PO DAILY PRN PRN Reason: Constipation Metoprolol Succinate (Metoprolol Succinate Er 50 Mg Tab.Er.24h) 50 mg PO DAILY [facility]; Protocol Last Admin: 07/27/21 10:30 Dose: Not Given Documented by: Olanzapine (Olanzapine 10 Mg Vial) 5 mg IM BID PRN PRN Reason: if pt refuses oral antips Ondansetron HCl (Ondansetron Odt 4 Mg Tab.Rapdis) 4 mg TRANSLINGU Q6H PRN PRN Reason: Nausea Trazodone HCl (Trazodone Hcl 50 Mg Tablet) 50 mg PO BEDTIME PRN PRN Reason: continued insomnia Allergies Allergies Allergy/AdvReac Type Severity Reaction Status Date / Time No Known Allergies Allergy Verified 06/02/21 02:46 [No Known Allergies*] Assessment & Plan Assessment & Plan (1) Acute epididymitis: Status: Acute Code(s): N45.1 - Epididymitis Assessment and Plan: Seven days Levaquin (2) Schizophrenia, paranoid, chronic with acute exacerbation: Status: Acute Code(s): F20.0 - Paranoid schizophrenia Assessment and Plan: speech writer covering 07/26 Patient's WBC elevated, a Depakote level not collected Watch Repairer will reorder CBC and Depakote level for tomorrow morning. Case discussed with Maya Juárez, patient's primary provider no other changes made to tx plan Mr. Morrison is a 26 year-old male with hx of schizophrenia who has had 3 previous inpatient admission due to paranoid delusions mostly towards his neighbors. Pt increasingly more paranoia but declining to try more effective antipsychotic. He was committed on 06/29/21. currently on Section 8. Plan: 1. continue Haldol 5mg po daily and 15mg po qhs. Received 2 doses of Haldol decanoate 100mg IM 2.D/c olanzapine schedule due to over sedation 3. continue Depakote 1000mg po daily and 2000mg po qhs- back IM per section 8. Pending depakote level, ammonia, cbc w/diff, cmp Assessment and Plan: Continue current plan of care. Greater than 50% of the session was spent on counseling and/or coordination of care Reason for contiued inpatient stay Substantial Risk for: inability to function
[2021-07-27] MEDS: HaloperidoL 5 MG TABLET PO (10:27)
[2021-07-27] MEDS: HaloperidoL 5 MG TABLET 10 MG PO (19:21)
[2021-07-27 19:25] VITALS: BP 139/67; PULSE 110; TEMP 36.9
[2021-07-28 08:32] LABS: Ammonia 50 umol/L (13-55)
[2021-07-28 08:44] LABS: Valproate 44.2 mcg/mL (50.0-100.0)
[2021-07-28 10:00] LABS: Estimated Average Glucose 160 mg/dL; Hemoglobin A1c % 7.2 %
[2021-07-28] MEDS: Divalproex Sodium 500 MG TABLET.DR 1000 MG PO ×2 (10:39→19:24)
[2021-07-28] MEDS: HaloperidoL 5 MG TABLET PO (10:39)
--- NOTE | 2021-07-28 16:17 | HO.PSYCHPN ---
Subjective Subjective Date of Service: 07/28/21 Reason For Visit: Psychosis Interim History: Met with patient who said he was tired but also ?good.? Patient immediately asked keno writer if he was discharging today; keno writer explained that was not the case and he will have discuss this with his primary provider. Patient reiterated that he was good and to go but eventually accepted that he would have to discuss this with Marquita at a later time. Mental Status Exam Mental Status Exam Narrative: Appearance: wearing hospital gown, white tshirt, disheveled, yawning; NAD Behavior:superficially cooperative psychomotor:no retardation/agitation present Speech:clear, normal rate/rhythm/volume, spontaneous Thought process:goal oriented- Thought content:wanting to be discharged Mood: good Affect: sullen SI:denies HI:denies VH/AH:denies Delusions: defered Insight/judgment:poor Diagnostics Vital Signs (24Hr): Vital Signs - 24 hr 07/27/21 19:25 Temperature 98.5 F Pulse Rate 110 H Blood Pressure 139/67 Body Mass Index 36.5 Labs Results: 07/27/21 08:22 06/19/21 17:56 Labs: Laboratory Results - last 48 hr 07/27/21 07/27/21 07/28/21 08:22 08:22 08:10 WBC 6.0 RBC 5.02 Hgb 14.5 Hct 41.6 L MCV 82.9 MCH 28.9 MCHC 34.9 RDW 12.0 Plt Count 246 MPV 9.7 Immature Gran % (Auto) 0.3 Neut % (Auto) 49.5 Lymph % (Auto) 36.4 [place] % (Auto) 10.5 Eos % (Auto) 2.8 Baso % (Auto) 0.5 Lymph # (Auto) 2.2 [place] # (Auto) 0.6 Eos # (Auto) 0.2 Baso # (Auto) 0.0 Abs Immat Gran (auto) 0.02 Absolute Neuts (auto) 3.0 Absolute Nucleated RBC 0.000 Nucleated RBC % (auto) 0.0 Estimat Average Glucose Hemoglobin A1c % Total Bilirubin 0.3 Direct Bilirubin 0.2 AST 29 ALT 74 H Alkaline Phosphatase 90 Ammonia Total Protein 7.5 Albumin 4.4 Valproic Acid 146.7 H* 44.2 L 07/28/21 07/28/21 08:10 08:10 WBC RBC Hgb Hct MCV MCH MCHC RDW Plt Count MPV Immature Gran % (Auto) Neut % (Auto) Lymph % (Auto) [place] % (Auto) Eos % (Auto) Baso % (Auto) Lymph # (Auto) [place] # (Auto) Eos # (Auto) Baso # (Auto) Abs Immat Gran (auto) Absolute Neuts (auto) Absolute Nucleated RBC Nucleated RBC % (auto) Estimat Average Glucose 160 Hemoglobin A1c % 7.2 Total Bilirubin Direct Bilirubin AST ALT Alkaline Phosphatase Ammonia 50 Total Protein Albumin Valproic Acid Medications Medications Current Medications Acetaminophen (Acetaminophen 325 Mg Tablet) 650 mg PO Q12H PRN PRN Reason: Headache/Pain Mild Scale (1-3) Last Admin: 07/02/21 09:36 Dose: 325 mg Documented by: Al Hydroxide/Mg Hydroxide (Magnesium Hydrox/Alum Hydrox 30 Ml Oral.Susp) 30 ml PO Q6H PRN PRN Reason: Heartburn/Nausea Albuterol Sulfate (Albuterol Sulfate 90 Mcg 8 Gm Inhaler) 1 puff INHALE RQ4H PRN PRN Reason: sob/wheezing Last Admin: 07/17/21 09:02 Dose: 1 puff Documented by: Aspirin (Aspirin 325 Mg Tablet) 325 mg PO DAILY [facility] Last Admin: 07/28/21 11:12 Dose: Not Given Documented by: Benztropine Mesylate (Benztropine Mesylate 1 Mg Tablet) 1 mg PO BEDTIME [facility] Last Admin: 07/27/21 19:22 Dose: Not Given Documented by: Divalproex Sodium (Divalproex Sodium 500 Mg Tablet.) 1,000 mg PO BID [facility] Last Admin: 07/28/21 10:39 Dose: 1,000 mg Documented by: Famotidine (Famotidine 20 Mg Tablet) 20 mg PO BEDTIME [facility] Last Admin: 07/27/21 19:22 Dose: Not Given Documented by: Haloperidol (Haloperidol 5 Mg Tablet) 5 mg PO DAILY [facility] Last Admin: 07/28/21 10:39 Dose: 5 mg Documented by: Haloperidol (Haloperidol 5 Mg Tablet) 10 mg PO BEDTIME [facility] Last Admin: 07/27/21 19:21 Dose: 10 mg Documented by: Haloperidol (Haloperidol 5 Mg Tablet) 5 mg PO BID PRN PRN Reason: agitation Hydroxyzine HCl (Hydroxyzine Hcl 25 Mg Tablet) 25 mg PO Q6H PRN PRN Reason: Anxiety Last Admin: 07/15/21 17:57 Dose: 25 mg Documented by: Magnesium Hydroxide (Milk Of Magnesia 30 Ml Oral.Susp) 30 ml PO DAILY PRN PRN Reason: Constipation Metoprolol Succinate (Metoprolol Succinate Er 50 Mg Tab.Er.24h) 50 mg PO DAILY [facility]; Protocol Last Admin: 07/28/21 11:12 Dose: Not Given Documented by: Olanzapine (Olanzapine 10 Mg Vial) 5 mg IM BID PRN PRN Reason: if pt refuses oral antips Ondansetron HCl (Ondansetron Odt 4 Mg Tab.Rapdis) 4 mg TRANSLINGU Q6H PRN PRN Reason: Nausea Trazodone HCl (Trazodone Hcl 50 Mg Tablet) 50 mg PO BEDTIME PRN PRN Reason: continued insomnia Allergies Allergies Allergy/AdvReac Type Severity Reaction Status Date / Time No Known Allergies Allergy Verified 06/02/21 02:46 [No Known Allergies*] Assessment & Plan Assessment & Plan (1) Acute epididymitis: Status: Acute Code(s): N45.1 - Epididymitis Assessment and Plan: Seven days Levaquin (2) Schizophrenia, paranoid, chronic with acute exacerbation: Status: Acute Code(s): F20.0 - Paranoid schizophrenia Assessment and Plan: keno writer covering 07/28 Depakote level repeated and within normal limits Cook Jelly spoke with Maya Juárez who has already changed his Depakote dose to b.i.d. No changes to current treatment plan Mr. Morrison is a 26 year-old male with hx of schizophrenia who has had 3 previous inpatient admission due to paranoid delusions mostly towards his neighbors. Pt increasingly more paranoia but declining to try more effective antipsychotic. He was committed on 06/29/21. currently on Section 8. Plan: 1. continue Haldol 5mg po daily and 15mg po qhs. Received 2 doses of Haldol decanoate 100mg IM 2.D/c olanzapine schedule due to over sedation 3. continue Depakote 1000mg po daily and 2000mg po qhs- back IM per section 8. Pending depakote level, ammonia, cbc w/diff, cmp Assessment and Plan: Continue current plan of care. Greater than 50% of the session was spent on counseling and/or coordination of care Reason for contiued inpatient stay Substantial Risk for: inability to function
[2021-07-28 18:00] VITALS: RESP 16
[2021-07-28] MEDS: HaloperidoL 5 MG TABLET 10 MG PO (19:23)
[2021-07-29 06:00] VITALS: BP 130/70; PULSE 106; TEMP 36.7; O2SAT 100
[2021-07-29] MEDS: HaloperidoL 5 MG TABLET PO (09:56)
[2021-07-29] MEDS: Divalproex Sodium 500 MG TABLET.DR 1000 MG PO ×2 (09:56→19:58)
--- NOTE | 2021-07-29 12:22 | HO.PSYCHPN ---
Subjective Subjective Date of Service: 07/29/21 Reason For Visit: Psychosis Interim History: Patient said sarah. He complained of a headache which he says heme wakes up with most mornings but that resolved after takes a shower. He denies any SI or HI. He immediately started telling technical proposal writer that ?they told me I was going to be outta here yesterday and that I would be at home and my own room... They told me that I would be outta here yesterday. He repeated this to technical proposal writer for a bit and would not accept or understand otherwise, but he walked off went back to his room. Mental Status Exam Mental Status Exam Narrative: Appearance: wearing hospital gown, blue, stained tshirt, disheveled, yawning; NAD Behavior:superficially cooperative psychomotor:no retardation/agitation present Speech:clear, normal rate/rhythm/volume, spontaneous Thought process:goal oriented- Thought content: discharge Mood: good Affect: sullen SI:denies HI:denies VH/AH:denies Delusions: positive for Insight/judgment:poor Diagnostics Vital Signs (24Hr): Vital Signs - 24 hr 07/28/21 18:00 07/29/21 06:00 Temperature 98.0 F Pulse Rate 106 H Respiratory Rate 16 Blood Pressure 130/70 Pulse Oximetry 100 Body Mass Index 36.5 Labs Results: 07/27/21 08:22 06/19/21 17:56 Labs: Laboratory Results - last 48 hr 07/28/21 07/28/21 07/28/21 08:10 08:10 08:10 Estimat Average Glucose 160 Hemoglobin A1c % 7.2 Ammonia 50 Valproic Acid 44.2 L Medications Medications Current Medications Acetaminophen (Acetaminophen 325 Mg Tablet) 650 mg PO Q12H PRN PRN Reason: Headache/Pain Mild Scale (1-3) Last Admin: 07/02/21 09:36 Dose: 325 mg Documented by: Al Hydroxide/Mg Hydroxide (Magnesium Hydrox/Alum Hydrox 30 Ml Oral.Susp) 30 ml PO Q6H PRN PRN Reason: Heartburn/Nausea Albuterol Sulfate (Albuterol Sulfate 90 Mcg 8 Gm Inhaler) 1 puff INHALE RQ4H PRN PRN Reason: sob/wheezing Last Admin: 07/17/21 09:02 Dose: 1 puff Documented by: Aspirin (Aspirin 325 Mg Tablet) 325 mg PO DAILY [facility] Last Admin: 07/29/21 09:56 Dose: Not Given Documented by: Benztropine Mesylate (Benztropine Mesylate 1 Mg Tablet) 1 mg PO BEDTIME [facility] Last Admin: 07/28/21 19:27 Dose: Not Given Documented by: Divalproex Sodium (Divalproex Sodium 500 Mg Tablet.) 1,000 mg PO BID [facility] Last Admin: 07/29/21 09:56 Dose: 1,000 mg Documented by: Famotidine (Famotidine 20 Mg Tablet) 20 mg PO BEDTIME [facility] Last Admin: 07/28/21 19:27 Dose: Not Given Documented by: Haloperidol (Haloperidol 5 Mg Tablet) 5 mg PO DAILY [facility] Last Admin: 07/29/21 09:56 Dose: 5 mg Documented by: Haloperidol (Haloperidol 5 Mg Tablet) 10 mg PO BEDTIME [facility] Last Admin: 07/28/21 19:23 Dose: 10 mg Documented by: Haloperidol (Haloperidol 5 Mg Tablet) 5 mg PO BID PRN PRN Reason: agitation Hydroxyzine HCl (Hydroxyzine Hcl 25 Mg Tablet) 25 mg PO Q6H PRN PRN Reason: Anxiety Last Admin: 07/15/21 17:57 Dose: 25 mg Documented by: Magnesium Hydroxide (Milk Of Magnesia 30 Ml Oral.Susp) 30 ml PO DAILY PRN PRN Reason: Constipation Metoprolol Succinate (Metoprolol Succinate Er 50 Mg Tab.Er.24h) 50 mg PO DAILY [facility]; Protocol Last Admin: 07/29/21 09:56 Dose: Not Given Documented by: Olanzapine (Olanzapine 10 Mg Vial) 5 mg IM BID PRN PRN Reason: if pt refuses oral antips Ondansetron HCl (Ondansetron Odt 4 Mg Tab.Rapdis) 4 mg TRANSLINGU Q6H PRN PRN Reason: Nausea Trazodone HCl (Trazodone Hcl 50 Mg Tablet) 50 mg PO BEDTIME PRN PRN Reason: continued insomnia Allergies Allergies Allergy/AdvReac Type Severity Reaction Status Date / Time No Known Allergies Allergy Verified 06/02/21 02:46 [No Known Allergies*] Assessment & Plan Assessment & Plan (1) Acute epididymitis: Status: Acute Code(s): N45.1 - Epididymitis Assessment and Plan: Seven days Levaquin (2) Schizophrenia, paranoid, chronic with acute exacerbation: Status: Acute Code(s): F20.0 - Paranoid schizophrenia Assessment and Plan: technical proposal writer covering 07/29 No changes to current treatment plan Mr. Morrison is a 26 year-old male with hx of schizophrenia who has had 3 previous inpatient admission due to paranoid delusions mostly towards his neighbors. Pt increasingly more paranoia but declining to try more effective antipsychotic. He was committed on 06/29/21. currently on Section 8. Plan: 1. continue Haldol 5mg po daily and 15mg po qhs. Received 2 doses of Haldol decanoate 100mg IM 2.D/c olanzapine schedule due to over sedation 3. continue Depakote 1000mg po daily and 2000mg po qhs- back IM per section 8. Pending depakote level, ammonia, cbc w/diff, cmp Assessment and Plan: Continue current plan of care. Greater than 50% of the session was spent on counseling and/or coordination of care Reason for contiued inpatient stay Substantial Risk for: inability to function
[2021-07-29] MEDS: HaloperidoL 5 MG TABLET 10 MG PO (19:58)
[2021-07-29 21:21] VITALS: BP 140/80; PULSE 100; TEMP 36.6; O2SAT 98
[2021-07-30 06:00] VITALS: BP 134/85; PULSE 106; TEMP 36.4; O2SAT 95
[2021-07-30] MEDS: Divalproex Sodium 500 MG TABLET.DR 1000 MG PO ×2 (09:15→19:59)
[2021-07-30] MEDS: HaloperidoL 5 MG TABLET PO (09:15)
[2021-07-30] MEDS: HaloperidoL 5 MG TABLET 10 MG PO (19:59)
--- NOTE | 2021-07-30 21:59 | P.PNPSI_ITS ---
Subjective Subjective Date of Service: 07/30/21 Reason For Visit: Psychosis Interim History: pt difficult to engage. sheet writer asks him how he's doing, he says when am I supposed to go home? I'm sick of being here... and then walks off, not willing to talk further. Mental Status Exam Mental Status Exam Narrative: Appearance: wearing tshirt, disheveled, yawning; NAD Behavior:minimally cooperative psychomotor:no retardation/agitation present Speech:clear, normal rate/rhythm/volume, spontaneous Thought process:goal oriented- Thought content: discharge Mood:irritable Affect: sullen SI:denies HI:denies VH/AH:denies Delusions: positive for Insight/judgment:poor Diagnostics Vital Signs (24Hr): Vital Signs - 24 hr 07/30/21 06:00 Temperature 97.6 F Pulse Rate 106 H Blood Pressure 134/85 Pulse Oximetry 95 Body Mass Index 36.5 Labs Results: 07/27/21 08:22 06/19/21 17:56 Medications Medications Current Medications Acetaminophen (Acetaminophen 325 Mg Tablet) 650 mg PO Q12H PRN PRN Reason: Headache/Pain Mild Scale (1-3) Last Admin: 07/02/21 09:36 Dose: 325 mg Documented by: Al Hydroxide/Mg Hydroxide (Magnesium Hydrox/Alum Hydrox 30 Ml Oral.Susp) 30 ml PO Q6H PRN PRN Reason: Heartburn/Nausea Albuterol Sulfate (Albuterol Sulfate 90 Mcg 8 Gm Inhaler) 1 puff INHALE RQ4H PRN PRN Reason: sob/wheezing Last Admin: 07/17/21 09:02 Dose: 1 puff Documented by: Aspirin (Aspirin 325 Mg Tablet) 325 mg PO DAILY [facility] Last Admin: 07/30/21 09:31 Dose: Not Given Documented by: Benztropine Mesylate (Benztropine Mesylate 1 Mg Tablet) 1 mg PO BEDTIME [facility] Last Admin: 07/30/21 20:07 Dose: Not Given Documented by: Divalproex Sodium (Divalproex Sodium 500 Mg Tablet.) 1,000 mg PO BID [facility] Last Admin: 07/30/21 19:59 Dose: 1,000 mg Documented by: Famotidine (Famotidine 20 Mg Tablet) 20 mg PO BEDTIME [facility] Last Admin: 07/30/21 20:07 Dose: Not Given Documented by: Haloperidol (Haloperidol 5 Mg Tablet) 5 mg PO DAILY [facility] Last Admin: 07/30/21 09:15 Dose: 5 mg Documented by: Haloperidol (Haloperidol 5 Mg Tablet) 10 mg PO BEDTIME [facility] Last Admin: 07/30/21 19:59 Dose: 10 mg Documented by: Haloperidol (Haloperidol 5 Mg Tablet) 5 mg PO BID PRN PRN Reason: agitation Hydroxyzine HCl (Hydroxyzine Hcl 25 Mg Tablet) 25 mg PO Q6H PRN PRN Reason: Anxiety Last Admin: 07/15/21 17:57 Dose: 25 mg Documented by: Magnesium Hydroxide (Milk Of Magnesia 30 Ml Oral.Susp) 30 ml PO DAILY PRN PRN Reason: Constipation Metoprolol Succinate (Metoprolol Succinate Er 50 Mg Tab.Er.24h) 50 mg PO DAILY [facility]; Protocol Last Admin: 07/30/21 09:31 Dose: Not Given Documented by: Olanzapine (Olanzapine 10 Mg Vial) 5 mg IM BID PRN PRN Reason: if pt refuses oral antips Ondansetron HCl (Ondansetron Odt 4 Mg Tab.Rapdis) 4 mg TRANSLINGU Q6H PRN PRN Reason: Nausea Trazodone HCl (Trazodone Hcl 50 Mg Tablet) 50 mg PO BEDTIME PRN PRN Reason: continued insomnia Allergies Allergies Allergy/AdvReac Type Severity Reaction Status Date / Time No Known Allergies Allergy Verified 06/02/21 02:46 [No Known Allergies*] Assessment & Plan Assessment & Plan (1) Acute epididymitis: Status: Acute Code(s): N45.1 - Epididymitis Assessment and Plan: Seven days Levaquin (2) Schizophrenia, paranoid, chronic with acute exacerbation: Status: Acute Code(s): F20.0 - Paranoid schizophrenia Assessment and Plan: sheet writer covering 07/30 No changes to current treatment plan Mr. Morrison is a 26 year-old male with hx of schizophrenia who has had 3 previous inpatient admission due to paranoid delusions mostly towards his neighbors. Pt increasingly more paranoia but declining to try more effective antipsychotic. He was committed on 06/29/21. currently on Section 8. Plan: 1. continue Haldol 5mg po daily and 15mg po qhs. Received 2 doses of Haldol decanoate 100mg IM 2.D/c olanzapine schedule due to over sedation 3. continue Depakote 1000mg po daily and 2000mg po qhs- back IM per section 8. Pending depakote level, ammonia, cbc w/diff, cmp Assessment and Plan: Continue current plan of care. Greater than 50% of the session was spent on counseling and/or coordination of care Reason for contiued inpatient stay Substantial Risk for: inability to function
[2021-07-31] MEDS: HaloperidoL 5 MG TABLET PO (10:48)
[2021-07-31] MEDS: Divalproex Sodium 500 MG TABLET.DR 1000 MG PO ×2 (10:48→21:48)
--- NOTE | 2021-07-31 15:00 | HO.PSYCHPN ---
Subjective Subjective Date of Service: 07/31/21 Reason For Visit: Psychosis Interim History: Pt calmer, but very concrete with limited insight. Pt reports he does not plan to approach neighbors. He reports he may state at his apartment but maybe at the motel if feeling more comfortable. He was calmer when told that he has to meet with OP providers, continue medication before discharge. He denies SI/HI. Less disruptive in unit, less explosive although with irritable edge. Medication Compliance: Yes Side effects from medications: No Review of Systems Constitutional: Reports as per HPI, Denies chills and Denies fever(s) Eyes: Reports as per HPI Cardiovascular: Reports no additional cardiovascular complaints and Denies syncope Respiratory: Denies cough Gastrointestinal: Denies abdominal pain and Denies heartburn Genitourinary: Reports as per HPI, Denies change in libido, Reports genital pain and Reports other Reports behavioral changes and Denies syncope Psychiatric: Reports as per HPI, Reports anxiety, Reports behavioral changes, Denies change in libido, Reports difficulty concentrating, Reports auditory hallucinations, Reports irritability, Reports mood swings, Reports paranoia and Reports suicidal ideation Endocrine: Denies change in libido Mental Status Exam Mental Status Exam Narrative: Appearance: wearing tshirt, disheveled, yawning; NAD Behavior:minimally cooperative psychomotor:no retardation/agitation present Speech:clear, normal rate/rhythm/volume, spontaneous Thought process:goal oriented- Thought content: discharge Mood:irritable Affect: sullen SI:denies HI:denies VH/AH:denies Delusions: positive for Insight/judgment:poor Diagnostics Vital Signs (24Hr): Body Mass Index 36.5 Labs Results: 07/27/21 08:22 06/19/21 17:56 Medications Medications Current Medications Acetaminophen (Acetaminophen 325 Mg Tablet) 650 mg PO Q12H PRN PRN Reason: Headache/Pain Mild Scale (1-3) Last Admin: 07/02/21 09:36 Dose: 325 mg Documented by: Al Hydroxide/Mg Hydroxide (Magnesium Hydrox/Alum Hydrox 30 Ml Oral.Susp) 30 ml PO Q6H PRN PRN Reason: Heartburn/Nausea Albuterol Sulfate (Albuterol Sulfate 90 Mcg 8 Gm Inhaler) 1 puff INHALE RQ4H PRN PRN Reason: sob/wheezing Last Admin: 07/17/21 09:02 Dose: 1 puff Documented by: Aspirin (Aspirin 325 Mg Tablet) 325 mg PO DAILY [facility] Last Admin: 07/31/21 10:49 Dose: Not Given Documented by: Benztropine Mesylate (Benztropine Mesylate 1 Mg Tablet) 1 mg PO BEDTIME [facility] Last Admin: 07/30/21 20:07 Dose: Not Given Documented by: Divalproex Sodium (Divalproex Sodium 500 Mg Tablet.Dr) 1,000 mg PO BID [facility] Last Admin: 07/31/21 10:48 Dose: 1,000 mg Documented by: Famotidine (Famotidine 20 Mg Tablet) 20 mg PO BEDTIME [facility] Last Admin: 07/30/21 20:07 Dose: Not Given Documented by: Haloperidol (Haloperidol 5 Mg Tablet) 5 mg PO DAILY [facility] Last Admin: 07/31/21 10:48 Dose: 5 mg Documented by: Haloperidol (Haloperidol 5 Mg Tablet) 10 mg PO BEDTIME [facility] Last Admin: 07/30/21 19:59 Dose: 10 mg Documented by: Haloperidol (Haloperidol 5 Mg Tablet) 5 mg PO BID PRN PRN Reason: agitation Hydroxyzine HCl (Hydroxyzine Hcl 25 Mg Tablet) 25 mg PO Q6H PRN PRN Reason: Anxiety Last Admin: 07/15/21 17:57 Dose: 25 mg Documented by: Magnesium Hydroxide (Milk Of Magnesia 30 Ml Oral.Susp) 30 ml PO DAILY PRN PRN Reason: Constipation Metoprolol Succinate (Metoprolol Succinate Er 50 Mg Tab.Er.24h) 50 mg PO DAILY [facility]; Protocol Last Admin: 07/31/21 10:49 Dose: Not Given Documented by: Olanzapine (Olanzapine 10 Mg Vial) 5 mg IM BID PRN PRN Reason: if pt refuses oral antips Ondansetron HCl (Ondansetron Odt 4 Mg Tab.Rapdis) 4 mg TRANSLINGU Q6H PRN PRN Reason: Nausea Trazodone HCl (Trazodone Hcl 50 Mg Tablet) 50 mg PO BEDTIME PRN PRN Reason: continued insomnia Allergies Allergies Allergy/AdvReac Type Severity Reaction Status Date / Time No Known Allergies Allergy Verified 06/02/21 02:46 [No Known Allergies*] Assessment & Plan Assessment & Plan (1) Acute epididymitis: Status: Acute Code(s): N45.1 - Epididymitis Assessment and Plan: Seven days Levaquin (2) Schizophrenia, paranoid, chronic with acute exacerbation: Status: Acute Code(s): F20.0 - Paranoid schizophrenia 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 Morrison is a 26 year-old male with hx of schizophrenia who has had 3 previous inpatient admission due to paranoid delusions mostly towards his neighbors. Pt increasingly more paranoia but declining to try more effective antipsychotic. He was committed on 06/29/21. currently on Section 8. Plan: 1. continue Haldol 5mg po daily and 15mg po qhs. Received 2 doses of Haldol decanoate 100mg IM 2.D/c olanzapine schedule due to over sedation 3. continue Depakote 1000mg po BID. Pending depakote level, ammonia, cbc w/diff, cmp Assessment and Plan: Continue current plan of care. Greater than 50% of the session was spent on counseling and/or coordination of care Reason for contiued inpatient stay Substantial Risk for: harm to others and inability to function
[2021-07-31] MEDS: HaloperidoL 5 MG TABLET 10 MG PO (21:48)
[2021-08-01] MEDS: HaloperidoL 5 MG TABLET PO (13:51)
[2021-08-01] MEDS: Divalproex Sodium 500 MG TABLET.DR 1000 MG PO ×2 (13:52→21:31)
--- NOTE | 2021-08-01 16:23 | HO.PSYCHPN ---
Subjective Subjective Date of Service: 08/01/21 Reason For Visit: Psychosis Interim History: Pt calmer, but very concrete with limited insight His main questions over and over is when will he be discharged. He reports he is being kept in hospital because he is from [place] and this is some kind of discrimination. Pt reports he does not plan to approach neighbors. He reports he may state at his apartment but maybe at the motel if feeling more comfortable. He was calmer when told that he has to meet with OP providers, continue medication before discharge. He denies SI/HI. Less disruptive in unit, less explosive although with irritable edge. Review of Systems Constitutional: Reports as per HPI, Denies chills and Denies fever(s) Eyes: Reports as per HPI Cardiovascular: Reports no additional cardiovascular complaints and Denies syncope Respiratory: Denies cough Gastrointestinal: Denies abdominal pain and Denies heartburn Genitourinary: Reports as per HPI, Denies change in libido, Reports genital pain and Reports other Reports behavioral changes and Denies syncope Psychiatric: Reports as per HPI, Reports anxiety, Reports behavioral changes, Denies change in libido, Reports difficulty concentrating, Reports auditory hallucinations, Reports irritability, Reports mood swings, Reports paranoia and Reports suicidal ideation Endocrine: Denies change in libido Mental Status Exam Mental Status Exam Narrative: Appearance: wearing tshirt, disheveled, yawning; NAD Behavior:minimally cooperative psychomotor:no retardation/agitation present Speech:clear, normal rate/rhythm/volume, spontaneous Thought process:goal oriented- Thought content: discharge Mood:irritable Affect: sullen SI:denies HI:denies VH/AH:denies Delusions: positive for Insight/judgment:poor Diagnostics Vital Signs (24Hr): Body Mass Index 36.5 Labs Results: 07/27/21 08:22 06/19/21 17:56 Medications Medications Current Medications Acetaminophen (Acetaminophen 325 Mg Tablet) 650 mg PO Q12H PRN PRN Reason: Headache/Pain Mild Scale (1-3) Last Admin: 07/02/21 09:36 Dose: 325 mg Documented by: Al Hydroxide/Mg Hydroxide (Magnesium Hydrox/Alum Hydrox 30 Ml Oral.Susp) 30 ml PO Q6H PRN PRN Reason: Heartburn/Nausea Albuterol Sulfate (Albuterol Sulfate 90 Mcg 8 Gm Inhaler) 1 puff INHALE RQ4H PRN PRN Reason: sob/wheezing Last Admin: 07/17/21 09:02 Dose: 1 puff Documented by: Aspirin (Aspirin 325 Mg Tablet) 325 mg PO DAILY [facility] Last Admin: 08/01/21 13:55 Dose: Not Given Documented by: Benztropine Mesylate (Benztropine Mesylate 1 Mg Tablet) 1 mg PO BEDTIME [facility] Last Admin: 07/31/21 22:03 Dose: Not Given Documented by: Divalproex Sodium (Divalproex Sodium 500 Mg Tablet.Dr) 1,000 mg PO BID [facility] Last Admin: 08/01/21 13:52 Dose: 1,000 mg Documented by: Famotidine (Famotidine 20 Mg Tablet) 20 mg PO BEDTIME [facility] Last Admin: 07/31/21 22:02 Dose: Not Given Documented by: Haloperidol (Haloperidol 5 Mg Tablet) 5 mg PO DAILY [facility] Last Admin: 08/01/21 13:51 Dose: 5 mg Documented by: Haloperidol (Haloperidol 5 Mg Tablet) 10 mg PO BEDTIME [facility] Last Admin: 07/31/21 21:48 Dose: 10 mg Documented by: Haloperidol (Haloperidol 5 Mg Tablet) 5 mg PO BID PRN PRN Reason: agitation Hydroxyzine HCl (Hydroxyzine Hcl 25 Mg Tablet) 25 mg PO Q6H PRN PRN Reason: Anxiety Last Admin: 07/15/21 17:57 Dose: 25 mg Documented by: Magnesium Hydroxide (Milk Of Magnesia 30 Ml Oral.Susp) 30 ml PO DAILY PRN PRN Reason: Constipation Metoprolol Succinate (Metoprolol Succinate Er 50 Mg Tab.Er.24h) 50 mg PO DAILY [facility]; Protocol Last Admin: 08/01/21 13:55 Dose: Not Given Documented by: Olanzapine (Olanzapine 10 Mg Vial) 5 mg IM BID PRN PRN Reason: if pt refuses oral antips Ondansetron HCl (Ondansetron Odt 4 Mg Tab.Rapdis) 4 mg TRANSLINGU Q6H PRN PRN Reason: Nausea Trazodone HCl (Trazodone Hcl 50 Mg Tablet) 50 mg PO BEDTIME PRN PRN Reason: continued insomnia Allergies Allergies Allergy/AdvReac Type Severity Reaction Status Date / Time No Known Allergies Allergy Verified 06/02/21 02:46 [No Known Allergies*] Assessment & Plan Assessment & Plan (1) Acute epididymitis: Status: Acute Code(s): N45.1 - Epididymitis Assessment and Plan: Seven days Levaquin (2) Schizophrenia, paranoid, chronic with acute exacerbation: Status: Acute Code(s): F20.0 - Paranoid schizophrenia 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 Morrison is a 26 year-old male with hx of schizophrenia who has had 3 previous inpatient admission due to paranoid delusions mostly towards his neighbors. Pt increasingly more paranoia but declining to try more effective antipsychotic. He was committed on 06/29/21. currently on Section 8. Plan: 1. continue Haldol 5mg po daily and 15mg po qhs. Received 2 doses of Haldol decanoate 100mg IM 2.D/c olanzapine schedule due to over sedation 3. continue Depakote 1000mg po BID. Pending depakote level, ammonia, cbc w/diff, cmp Assessment and Plan: Continue current plan of care. Greater than 50% of the session was spent on counseling and/or coordination of care Reason for contiued inpatient stay Substantial Risk for: inability to function
[2021-08-01] MEDS: HaloperidoL 5 MG TABLET 10 MG PO (21:32)
[2021-08-02 06:00] VITALS: BP 108/74; PULSE 112; TEMP 36.7; O2SAT 95
[2021-08-02] MEDS: Acetaminophen 325 MG TABLET 650 MG PO (08:11)
--- NOTE | 2021-08-02 09:23 | P.PNPSI_ITS ---
Subjective Subjective Date of Service: 08/05/21 Reason For Visit: Psychosis Interim History: Pt continues to present overall calmer, but very concrete with limited insight His main questions over and over is when will he be discharged. He reports he is being kept in hospital because he is from [place] and this is some kind of discrimination. Pt reports he does not plan to approach neighbors. He reports he may state at his apartment but maybe at the motel if feeling more comfortabl e. He was calmer when told that he has to meet with OP providers, continue medication before discharge. He denies SI/HI. Less disruptive in unit, less explosive although with irritable edge. Review of Systems Constitutional: Reports as per HPI, Denies chills and Denies fever(s) Eyes: Reports as per HPI Cardiovascular: Reports no additional cardiovascular complaints and Denies syncope Respiratory: Denies cough Gastrointestinal: Denies abdominal pain and Denies heartburn Genitourinary: Reports as per HPI, Denies change in libido, Reports genital pain and Reports other Reports behavioral changes and Denies syncope Psychiatric: Reports as per HPI, Reports anxiety, Reports behavioral changes, Denies change in libido, Reports difficulty concentrating, Reports auditory hallucinations, Reports irritability, Reports mood swings, Reports paranoia and Reports suicidal ideation Endocrine: Denies change in libido Mental Status Exam Mental Status Exam Narrative: Appearance: wearing tshirt, disheveled, yawning; NAD Behavior:minimally cooperative psychomotor:no retardation/agitation present Speech:clear, normal rate/rhythm/volume, spontaneous Thought process:goal oriented- Thought content: discharge Mood:irritable Affect: sullen SI:denies HI:denies VH/AH:denies Delusions: positive for Insight/judgment:poor Diagnostics Vital Signs (24Hr): Vital Signs - 24 hr 08/04/21 19:55 08/05/21 06:00 Temperature 98.3 F 96.7 F L Pulse Rate 112 H 110 H Respiratory Rate 16 Blood Pressure 132/77 132/88 Pulse Oximetry 93 Body Mass Index 36.8 Labs Results: 07/27/21 08:22 06/19/21 17:56 Medications Medications Current Medications Acetaminophen (Acetaminophen 325 Mg Tablet) 650 mg PO Q12H PRN PRN Reason: Headache/Pain Mild Scale (1-3) Last Admin: 08/02/21 08:11 Dose: 325 mg Documented by: Al Hydroxide/Mg Hydroxide (Magnesium Hydrox/Alum Hydrox 30 Ml Oral.Susp) 30 ml PO Q6H PRN PRN Reason: Heartburn/Nausea Albuterol Sulfate (Albuterol Sulfate 90 Mcg 8 Gm Inhaler) 1 puff INHALE RQ4H PRN PRN Reason: sob/wheezing Last Admin: 08/05/21 00:22 Dose: 1 puff Documented by: Aspirin (Aspirin 325 Mg Tablet) 325 mg PO DAILY [facility] Last Admin: 08/04/21 12:26 Dose: Not Given Documented by: Benztropine Mesylate (Benztropine Mesylate 1 Mg Tablet) 1 mg PO BEDTIME [facility] Last Admin: 08/04/21 21:52 Dose: Not Given Documented by: Divalproex Sodium (Divalproex Sodium 500 Mg Tablet.Dr) 1,000 mg PO BID [facility] Last Admin: 08/04/21 21:43 Dose: 1,000 mg Documented by: Famotidine (Famotidine 20 Mg Tablet) 20 mg PO BEDTIME [facility] Last Admin: 08/04/21 21:51 Dose: Not Given Documented by: Haloperidol (Haloperidol 5 Mg Tablet) 5 mg PO DAILY [facility] Last Admin: 08/04/21 12:25 Dose: 5 mg Documented by: Haloperidol (Haloperidol 5 Mg Tablet) 10 mg PO BEDTIME [facility] Last Admin: 08/04/21 21:43 Dose: 10 mg Documented by: Haloperidol (Haloperidol 5 Mg Tablet) 5 mg PO BID PRN PRN Reason: agitation Hydroxyzine HCl (Hydroxyzine Hcl 25 Mg Tablet) 25 mg PO Q6H PRN PRN Reason: Anxiety Last Admin: 07/15/21 17:57 Dose: 25 mg Documented by: Magnesium Hydroxide (Milk Of Magnesia 30 Ml Oral.Susp) 30 ml PO DAILY PRN PRN Reason: Constipation Metoprolol Succinate (Metoprolol Succinate Er 50 Mg Tab.Er.24h) 50 mg PO DAILY [facility]; Protocol Last Admin: 08/04/21 12:26 Dose: Not Given Documented by: Olanzapine (Olanzapine 10 Mg Vial) 5 mg IM BID PRN PRN Reason: if pt refuses oral antips Ondansetron HCl (Ondansetron Odt 4 Mg Tab.Rapdis) 4 mg TRANSLINGU Q6H PRN PRN Reason: Nausea Trazodone HCl (Trazodone Hcl 50 Mg Tablet) 50 mg PO BEDTIME PRN PRN Reason: continued insomnia Allergies Allergies Allergy/AdvReac Type Severity Reaction Status Date / Time No Known Allergies Allergy Verified 06/02/21 02:46 [No Known Allergies*] Assessment & Plan Assessment & Plan (1) Acute epididymitis: Status: Acute Code(s): N45.1 - Epididymitis Assessment and Plan: Seven days Levaquin (2) Schizophrenia, paranoid, chronic with acute exacerbation: Status: Acute Code(s): F20.0 - Paranoid schizophrenia 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 Morrison is a 26 year-old male with hx of schizophrenia who has had 3 previous inpatient admission due to paranoid delusions mostly towards his neighbors. Pt increasingly more paranoia but declining to try more effective antipsychotic. He was committed on 06/29/21. currently on Section 8. Plan: 1. continue Haldol 5mg po daily and 15mg po qhs. Received 2 doses of Haldol decanoate 100mg IM 2.D/c olanzapine schedule due to over sedation 3. continue Depakote 1000mg po BID. Pending depakote level, ammonia, cbc w/diff, cmp Assessment and Plan: Continue current plan of care. Greater than 50% of the session was spent on counseling and/or coordination of care Reason for contiued inpatient stay Substantial Risk for: inability to function
[2021-08-02] MEDS: HaloperidoL 5 MG TABLET PO (12:28)
[2021-08-02] MEDS: Divalproex Sodium 500 MG TABLET.DR 1000 MG PO ×2 (12:28→20:05)
[2021-08-02 18:00] VITALS: BP 110/79; PULSE 80
[2021-08-02] MEDS: HaloperidoL 5 MG TABLET 10 MG PO (20:05)
--- NOTE | 2021-08-03 09:24 | P.PNPSI_ITS ---
Subjective Subjective Date of Service: 08/05/21 Reason For Visit: Psychosis Subjective Notes: Section 8 Interim History: Pt continues to present overall calmer, but very concrete with limited insight Pt asking to be discharged. He asks about his rent which several times pt has been informed his [facility] worker/ repayee took care of it. Pt reports he is not going to go after his neighbors but thinks that if he does not feel comfortable going back home, that should be anyone's problem in the hospital. No disruptive behaviors. Medication Compliance: Yes Side effects from medications: No Review of Systems Constitutional: Reports as per HPI, Denies chills and Denies fever(s) Eyes: Reports as per HPI Cardiovascular: Reports no additional cardiovascular complaints and Denies syncope Respiratory: Denies cough Gastrointestinal: Denies abdominal pain and Denies heartburn Genitourinary: Reports as per HPI, Denies change in libido, Reports genital pain and Reports other Reports behavioral changes and Denies syncope Psychiatric: Reports as per HPI, Reports anxiety, Reports behavioral changes, Denies change in libido, Reports difficulty concentrating, Reports auditory hallucinations, Reports irritability, Reports mood swings, Reports paranoia and Reports suicidal ideation Endocrine: Denies change in libido Mental Status Exam Mental Status Exam Narrative: Appearance: wearing tshirt, disheveled, yawning; NAD Behavior:minimally cooperative psychomotor:no retardation/agitation present Speech:clear, normal rate/rhythm/volume, spontaneous Thought process:goal oriented- Thought content: discharge Mood:irritable Affect: sullen SI:denies HI:denies VH/AH:denies Delusions: positive for Insight/judgment:poor Diagnostics Vital Signs (24Hr): Vital Signs - 24 hr 08/04/21 19:55 08/05/21 06:00 Temperature 98.3 F 96.7 F L Pulse Rate 112 H 110 H Respiratory Rate 16 Blood Pressure 132/77 132/88 Pulse Oximetry 93 Body Mass Index 36.8 Labs Results: 07/27/21 08:22 06/19/21 17:56 Medications Medications Current Medications Acetaminophen (Acetaminophen 325 Mg Tablet) 650 mg PO Q12H PRN PRN Reason: Headache/Pain Mild Scale (1-3) Last Admin: 08/02/21 08:11 Dose: 325 mg Documented by: Al Hydroxide/Mg Hydroxide (Magnesium Hydrox/Alum Hydrox 30 Ml Oral.Susp) 30 ml PO Q6H PRN PRN Reason: Heartburn/Nausea Albuterol Sulfate (Albuterol Sulfate 90 Mcg 8 Gm Inhaler) 1 puff INHALE RQ4H PRN PRN Reason: sob/wheezing Last Admin: 08/05/21 00:22 Dose: 1 puff Documented by: Aspirin (Aspirin 325 Mg Tablet) 325 mg PO DAILY [facility] Last Admin: 08/04/21 12:26 Dose: Not Given Documented by: Benztropine Mesylate (Benztropine Mesylate 1 Mg Tablet) 1 mg PO BEDTIME [facility] Last Admin: 08/04/21 21:52 Dose: Not Given Documented by: Divalproex Sodium (Divalproex Sodium 500 Mg Tablet.Dr) 1,000 mg PO BID [facility] Last Admin: 08/04/21 21:43 Dose: 1,000 mg Documented by: Famotidine (Famotidine 20 Mg Tablet) 20 mg PO BEDTIME [facility] Last Admin: 08/04/21 21:51 Dose: Not Given Documented by: Haloperidol (Haloperidol 5 Mg Tablet) 5 mg PO DAILY [facility] Last Admin: 08/04/21 12:25 Dose: 5 mg Documented by: Haloperidol (Haloperidol 5 Mg Tablet) 10 mg PO BEDTIME [facility] Last Admin: 08/04/21 21:43 Dose: 10 mg Documented by: Haloperidol (Haloperidol 5 Mg Tablet) 5 mg PO BID PRN PRN Reason: agitation Hydroxyzine HCl (Hydroxyzine Hcl 25 Mg Tablet) 25 mg PO Q6H PRN PRN Reason: Anxiety Last Admin: 07/15/21 17:57 Dose: 25 mg Documented by: Magnesium Hydroxide (Milk Of Magnesia 30 Ml Oral.Susp) 30 ml PO DAILY PRN PRN Reason: Constipation Metoprolol Succinate (Metoprolol Succinate Er 50 Mg Tab.Er.24h) 50 mg PO DAILY [facility]; Protocol Last Admin: 08/04/21 12:26 Dose: Not Given Documented by: Olanzapine (Olanzapine 10 Mg Vial) 5 mg IM BID PRN PRN Reason: if pt refuses oral antips Ondansetron HCl (Ondansetron Odt 4 Mg Tab.Rapdis) 4 mg TRANSLINGU Q6H PRN PRN Reason: Nausea Trazodone HCl (Trazodone Hcl 50 Mg Tablet) 50 mg PO BEDTIME PRN PRN Reason: continued insomnia Allergies Allergies Allergy/AdvReac Type Severity Reaction Status Date / Time No Known Allergies Allergy Verified 06/02/21 02:46 [No Known Allergies*] Assessment & Plan Assessment & Plan (1) Acute epididymitis: Status: Acute Code(s): N45.1 - Epididymitis Assessment and Plan: Seven days Levaquin (2) Schizophrenia, paranoid, chronic with acute exacerbation: Status: Acute Code(s): F20.0 - Paranoid schizophrenia Assessment and Plan: underwriter covering 07/30 No changes to current treatment plan Mr. Morrison is a 26 year-old male with hx of schizophrenia who has had 3 previous inpatient admission due to paranoid delusions mostly towards his neighbors. Pt i ncreasingly more paranoia but declining to try more effective antipsychotic. He was committed on 06/29/21. currently on Section 8. Plan: 1. continue Haldol 5mg po daily and 15mg po qhs. Received 2 doses of Haldol decanoate 100mg IM 2.D/c olanzapine schedule due to over sedation 3. continue Depakote 1000mg po BID. Pending depakote level, ammonia, cbc w/diff, cmp Assessment and Plan: Continue current plan of care. Greater than 50% of the session was spent on counseling and/or coordination of care Reason for contiued inpatient stay Substantial Risk for: inability to function
[2021-08-03 09:46] VITALS: BP 136/90; PULSE 110; RESP 14; TEMP 36.3; O2SAT 95
[2021-08-03 09:48] VITALS: BMI 36.8
[2021-08-03] MEDS: Divalproex Sodium 500 MG TABLET.DR 1000 MG PO ×2 (11:02→20:37)
[2021-08-03] MEDS: HaloperidoL 5 MG TABLET PO (11:02)
[2021-08-03] MEDS: HaloperidoL 5 MG TABLET 10 MG PO (20:37)
--- NOTE | 2021-08-04 09:27 | P.PNPSI_ITS ---
Subjective Subjective Date of Service: 08/05/21 Reason For Visit: Psychosis Interim History: Pt continues to present overall calmer, but very concrete with limited insight Pt asking to be discharged. He asks about his rent which several times pt has been informed his [facility] worker/ repayee took care of it. Pt reports he is not going to go after his neighbors but thinks that if he does not feel comfortable going back home, that should be anyone's problem in the hospital. No disruptive behaviors. Review of Systems Constitutional: Reports as per HPI, Denies chills and Denies fever(s) Eyes: Reports as per HPI Cardiovascular: Reports no additional cardiovascular complaints and Denies syncope Respiratory: Denies cough Gastrointestinal: Denies abdominal pain and Denies heartburn Genitourinary: Reports as per HPI, Denies change in libido, Reports genital pain and Reports other Reports behavioral changes and Denies syncope Psychiatric: Reports as per HPI, Reports anxiety, Reports behavioral changes, Denies change in libido, Reports difficulty concentrating, Reports auditory erickson llucinations, Reports irritability, Reports mood swings, Reports paranoia and Reports suicidal ideation Endocrine: Denies change in libido Mental Status Exam Mental Status Exam Narrative: Appearance: wearing tshirt, disheveled, yawning; NAD Behavior:minimally cooperative psychomotor:no retardation/agitation present Speech:clear, normal rate/rhythm/volume, spontaneous Thought process:goal oriented- Thought content: discharge Mood:irritable Affect: sullen SI:denies HI:denies VH/AH:denies Delusions: positive for Insight/judgment:poor Diagnostics Vital Signs (24Hr): Vital Signs - 24 hr 08/04/21 19:55 08/05/21 06:00 Temperature 98.3 F 96.7 F L Pulse Rate 112 H 110 H Respiratory Rate 16 Blood Pressure 132/77 132/88 Pulse Oximetry 93 Body Mass Index 36.8 Labs Results: 07/27/21 08:22 06/19/21 17:56 Medications Medications Current Medications Acetaminophen (Acetaminophen 325 Mg Tablet) 650 mg PO Q12H PRN PRN Reason: Headache/Pain Mild Scale (1-3) Last Admin: 08/02/21 08:11 Dose: 325 mg Documented by: Al Hydroxide/Mg Hydroxide (Magnesium Hydrox/Alum Hydrox 30 Ml Oral.Susp) 30 ml PO Q6H PRN PRN Reason: Heartburn/Nausea Albuterol Sulfate (Albuterol Sulfate 90 Mcg 8 Gm Inhaler) 1 puff INHALE RQ4H PRN PRN Reason: sob/wheezing Last Admin: 08/05/21 00:22 Dose: 1 puff Documented by: Aspirin (Aspirin 325 Mg Tablet) 325 mg PO DAILY [facility] Last Admin: 08/04/21 12:26 Dose: Not Given Documented by: Benztropine Mesylate (Benztropine Mesylate 1 Mg Tablet) 1 mg PO BEDTIME [facility] Last Admin: 08/04/21 21:52 Dose: Not Given Documented by: Divalproex Sodium (Divalproex Sodium 500 Mg Tablet.Dr) 1,000 mg PO BID [facility] Last Admin: 08/04/21 21:43 Dose: 1,000 mg Documented by: Famotidine (Famotidine 20 Mg Tablet) 20 mg PO BEDTIME [facility] Last Admin: 08/04/21 21:51 Dose: Not Given Documented by: Haloperidol (Haloperidol 5 Mg Tablet) 5 mg PO DAILY [facility] Last Admin: 08/04/21 12:25 Dose: 5 mg Documented by: Haloperidol (Haloperidol 5 Mg Tablet) 10 mg PO BEDTIME [facility] Last Admin: 08/04/21 21:43 Dose: 10 mg Documented by: Haloperidol (Haloperidol 5 Mg Tablet) 5 mg PO BID PRN PRN Reason: agitation Hydroxyzine HCl (Hydroxyzine Hcl 25 Mg Tablet) 25 mg PO Q6H PRN PRN Reason: Anxiety Last Admin: 07/15/21 17:57 Dose: 25 mg Documented by: Magnesium Hydroxide (Milk Of Magnesia 30 Ml Oral.Susp) 30 ml PO DAILY PRN PRN Reason: Constipation Metoprolol Succinate (Metoprolol Succinate Er 50 Mg Tab.Er.24h) 50 mg PO DAILY [facility]; Protocol Last Admin: 08/04/21 12:26 Dose: Not Given Documented by: Olanzapine (Olanzapine 10 Mg Vial) 5 mg IM BID PRN PRN Reason: if pt refuses oral antips Ondansetron HCl (Ondansetron Odt 4 Mg Tab.Rapdis) 4 mg TRANSLINGU Q6H PRN PRN Reason: Nausea Trazodone HCl (Trazodone Hcl 50 Mg Tablet) 50 mg PO BEDTIME PRN PRN Reason: continued insomnia Allergies Allergies Allergy/AdvReac Type Severity Reaction Status Date / Time No Known Allergies Allergy Verified 06/02/21 02:46 [No Known Allergies*] Assessment & Plan Assessment & Plan (1) Acute epididymitis: Status: Acute Code(s): N45.1 - Epididymitis Assessment and Plan: Seven days Levaquin (2) Schizophrenia, paranoid, chronic with acute exacerbation: Status: Acute Code(s): F20.0 - Paranoid schizophrenia 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 Morrison is a 26 year-old male with hx of schizophrenia who has had 3 previous inpatient admission due to paranoid delusions mostly towards his neighbors. Pt increasingly more paranoia but declining to try more effective antipsychotic. He was committed on 06/29/21. currently on Section 8. Plan: 1. continue Haldol 5mg po daily and 15mg po qhs. Received 2 doses of Haldol decanoate 100mg IM 2.D/c olanzapine schedule due to over sedation 3. continue Depakote 1000mg po BID. Pending depakote level, ammonia, cbc w/diff, cmp Assessment and Plan: Continue current plan of care. Greater than 50% of the session was spent on counseling and/or coordination of care Reason for contiued inpatient stay Substantial Risk for: inability to function
[2021-08-04] MEDS: HaloperidoL 5 MG TABLET PO (12:25)
[2021-08-04] MEDS: Divalproex Sodium 500 MG TABLET.DR 1000 MG PO ×2 (12:25→21:43)
[2021-08-04 19:55] VITALS: BP 132/77; PULSE 112; TEMP 36.8
[2021-08-04] MEDS: HaloperidoL 5 MG TABLET 10 MG PO (21:43)
[2021-08-05] MEDS: Albuterol Sulfate 90 MCG 8 GM INHALER 1 PUFF INHALE (00:22)
[2021-08-05 06:00] VITALS: BP 132/88; PULSE 110; RESP 16; TEMP 35.9; O2SAT 93
--- NOTE | 2021-08-05 12:58 | HO.PSYCHPN ---
Subjective Subjective Date of Service: 08/05/21 Reason For Visit: Psychosis Subjective Notes: Section 8 Interim History: Pt reports was up for last day slept today- but meds not working at night- here for 3rd time- Review of Systems Acute medical concerns: No Review of Systems Review of Systems Yes all other systems are reviewed and are negative Mental Status Exam Mental Status Exam Narrative: poor eye contact, irritable Patient Appearance: Disheveled Patient Orientation: Person, Place and Situation Level of Consciousness: Drowsy Patient Behavior: Guarded, Suspicious and Poor Eye Contact Mood Description: Suspicious Affect Description: Angry (irritable) Patient Cognition Impaired: No Ability to Follow Directions: Poor Speech Pattern: Impoverished Delusions: Grandiose Thought Process: Intact Thought Content: positive for [place] Depressive Symptoms: Muscle Tension and Increased Irritability Judgement: Poor Diagnostics Vital Signs (24Hr): Vital Signs - 24 hr 08/04/21 19:55 08/05/21 06:00 Temperature 98.3 F 96.7 F L Pulse Rate 112 H 110 H Respiratory Rate 16 Blood Pressure 132/77 132/88 Pulse Oximetry 93 Body Mass Index 36.8 Labs Results: 07/27/21 08:22 06/19/21 17:56 Medications Medications Current Medications Acetaminophen (Acetaminophen 325 Mg Tablet) 650 mg PO Q12H PRN PRN Reason: Headache/Pain Mild Scale (1-3) Last Admin: 08/02/21 08:11 Dose: 325 mg Documented by: Al Hydroxide/Mg Hydroxide (Magnesium Hydrox/Alum Hydrox 30 Ml Oral.Susp) 30 ml PO Q6H PRN PRN Reason: Heartburn/Nausea Albuterol Sulfate (Albuterol Sulfate 90 Mcg 8 Gm Inhaler) 1 puff INHALE RQ4H PRN PRN Reason: sob/wheezing Last Admin: 08/05/21 00:22 Dose: 1 puff Documented by: Aspirin (Aspirin 325 Mg Tablet) 325 mg PO DAILY [facility] Last Admin: 08/04/21 12:26 Dose: Not Given Documented by: Benztropine Mesylate (Benztropine Mesylate 1 Mg Tablet) 1 mg PO BEDTIME [facility] Last Admin: 08/04/21 21:52 Dose: Not Given Documented by: Divalproex Sodium (Divalproex Sodium 500 Mg Tablet.) 1,000 mg PO BID [facility] Last Admin: 08/04/21 21:43 Dose: 1,000 mg Documented by: Famotidine (Famotidine 20 Mg Tablet) 20 mg PO BEDTIME [facility] Last Admin: 08/04/21 21:51 Dose: Not Given Documented by: Haloperidol (Haloperidol 5 Mg Tablet) 5 mg PO DAILY [facility] Last Admin: 08/04/21 12:25 Dose: 5 mg Documented by: Haloperidol (Haloperidol 5 Mg Tablet) 10 mg PO BEDTIME [facility] Last Admin: 08/04/21 21:43 Dose: 10 mg Documented by: Haloperidol (Haloperidol 5 Mg Tablet) 5 mg PO BID PRN PRN Reason: agitation Hydroxyzine HCl (Hydroxyzine Hcl 25 Mg Tablet) 25 mg PO Q6H PRN PRN Reason: Anxiety Last Admin: 07/15/21 17:57 Dose: 25 mg Documented by: Magnesium Hydroxide (Milk Of Magnesia 30 Ml Oral.Susp) 30 ml PO DAILY PRN PRN Reason: Constipation Metoprolol Succinate (Metoprolol Succinate Er 50 Mg Tab.Er.24h) 50 mg PO DAILY [facility]; Protocol Last Admin: 08/04/21 12:26 Dose: Not Given Documented by: Olanzapine (Olanzapine 10 Mg Vial) 5 mg IM BID PRN PRN Reason: if pt refuses oral antips Ondansetron HCl (Ondansetron Odt 4 Mg Tab.Rapdis) 4 mg TRANSLINGU Q6H PRN PRN Reason: Nausea Trazodone HCl (Trazodone Hcl 50 Mg Tablet) 50 mg PO BEDTIME PRN PRN Reason: continued insomnia Allergies Allergies Allergy/AdvReac Type Severity Reaction Status Date / Time No Known Allergies Allergy Verified 06/02/21 02:46 [No Known Allergies*] Assessment & Plan Assessment & Plan (1) Schizophrenia, paranoid, chronic with acute exacerbation: Status: Acute Code(s): F20.0 - Paranoid schizophrenia Assessment and Plan: No changes to current treatment plan Mr. Morrison is a 26 year-old male with hx of schizophrenia who has had 3 previous inpatient admission due to paranoid delusions mostly towards his neighbors. Pt increasingly more paranoia but declining to try more effective antipsychotic. He was committed on 06/29/21. currently on Section 8. Plan: continue haldol and depakote Assessment and Plan: Continue current plan of care. Greater than 50% of the session was spent on counseling and/or coordination of care Patient educated on: other Informed Consent: does not understand Reason for contiued inpatient stay Substantial Risk for: rapid decompensation
[2021-08-05] MEDS: HaloperidoL 5 MG TABLET PO (13:12)
[2021-08-05] MEDS: Divalproex Sodium 500 MG TABLET.DR 1000 MG PO ×2 (13:12→20:25)
[2021-08-05 19:45] VITALS: BP 131/71; PULSE 112; TEMP 36.4
[2021-08-05] MEDS: HaloperidoL 5 MG TABLET 10 MG PO (20:25)
[2021-08-06 06:00] VITALS: BP 136/83; PULSE 109; RESP 20; TEMP 36.2; O2SAT 95
--- NOTE | 2021-08-06 11:36 | P.PNPSI_ITS ---
Subjective Subjective Date of Service: 08/06/21 Reason For Visit: Psychosis Subjective Notes: Section 8 Guardianship: Yes Interim History: Pt not very intested in engaging today- walks past provider trying to talk to him - pacing llamas a bit- nursing reports overall less irritable Medication Compliance: Yes Attending Groups: No Review of Systems Acute medical concerns: No Medical Review of Systems: unchanged Mental Status Exam Mental Status Exam Narrative: poor eye contact Patient Appearance: Unkempt Patient Orientation: Person, Place and Situation Level of Consciousness: Awake Patient Behavior: Guarded, Suspicious and Poor Eye Contact Mood Description: Suspicious Affect Description: Blunted Patient Cognition Impaired: No Ability to Follow Directions: Poor Speech Pattern: Impoverished Delusions: Grandiose Thought Process: Intact Thought Content: positive for [place] Abnormal Motor Activity Signs and Symptoms: Restlessness Judgement: Poor Diagnostics Vital Signs (24Hr): Vital Signs - 24 hr 08/05/21 19:45 08/06/21 06:00 Temperature 97.6 F 97.2 F Pulse Rate 112 H 109 H Respiratory Rate 20 Blood Pressure 131/71 136/83 Pulse Oximetry 95 Body Mass Index 36.8 Labs Results: 07/27/21 08:22 06/19/21 17:56 Medications Medications Current Medications Acetaminophen (Acetaminophen 325 Mg Tablet) 650 mg PO Q12H PRN PRN Reason: Headache/Pain Mild Scale (1-3) Last Admin: 08/02/21 08:11 Dose: 325 mg Documented by: Al Hydroxide/Mg Hydroxide (Magnesium Hydrox/Alum Hydrox 30 Ml Oral.Susp) 30 ml PO Q6H PRN PRN Reason: Heartburn/Nausea Albuterol Sulfate (Albuterol Sulfate 90 Mcg 8 Gm Inhaler) 1 puff INHALE RQ4H PRN PRN Reason: sob/wheezing Last Admin: 08/05/21 00:22 Dose: 1 puff Documented by: Aspirin (Aspirin 325 Mg Tablet) 325 mg PO DAILY [facility] Last Admin: 08/06/21 10:36 Dose: Not Given Documented by: Benztropine Mesylate (Benztropine Mesylate 1 Mg Tablet) 1 mg PO BEDTIME [facility] Last Admin: 08/05/21 22:48 Dose: Not Given Documented by: Divalproex Sodium (Divalproex Sodium 500 Mg Tablet.) 1,000 mg PO BID [facility] Last Admin: 08/05/21 20:25 Dose: 1,000 mg Documented by: Famotidine (Famotidine 20 Mg Tablet) 20 mg PO BEDTIME [facility] Last Admin: 08/05/21 22:48 Dose: Not Given Documented by: Haloperidol (Haloperidol 5 Mg Tablet) 5 mg PO DAILY [facility] Last Admin: 08/05/21 13:12 Dose: 5 mg Documented by: Haloperidol (Haloperidol 5 Mg Tablet) 10 mg PO BEDTIME [facility] Last Admin: 08/05/21 20:25 Dose: 10 mg Documented by: Haloperidol (Haloperidol 5 Mg Tablet) 5 mg PO BID PRN PRN Reason: agitation Hydroxyzine HCl (Hydroxyzine Hcl 25 Mg Tablet) 25 mg PO Q6H PRN PRN Reason: Anxiety Last Admin: 07/15/21 17:57 Dose: 25 mg Documented by: Magnesium Hydroxide (Milk Of Magnesia 30 Ml Oral.Susp) 30 ml PO DAILY PRN PRN Reason: Constipation Metoprolol Succinate (Metoprolol Succinate Er 50 Mg Tab.Er.24h) 50 mg PO DAILY [facility]; Protocol Last Admin: 08/06/21 10:36 Dose: Not Given Documented by: Olanzapine (Olanzapine 10 Mg Vial) 5 mg IM BID PRN PRN Reason: if pt refuses oral antips Ondansetron HCl (Ondansetron Odt 4 Mg Tab.Rapdis) 4 mg TRANSLINGU Q6H PRN PRN Reason: Nausea Trazodone HCl (Trazodone Hcl 50 Mg Tablet) 50 mg PO BEDTIME PRN PRN Reason: continued insomnia Allergies Allergies Allergy/AdvReac Type Severity Reaction Status Date / Time No Known Allergies Allergy Verified 06/02/21 02:46 [No Known Allergies*] Assessment & Plan Assessment & Plan (1) Schizophrenia, paranoid, chronic with acute exacerbation: Status: Acute Code(s): F20.0 - Paranoid schizophrenia Assessment and Plan: No changes to current treatment plan Mr. Morrison is a 26 year-old male with hx of schizophrenia who has had 3 previous inpatient admission due to paranoid delusions mostly towards his neighbors. Pt increasingly more paranoia but declining to try more effective antipsychotic. He was committed on 06/29/21. currently on Section 8. Plan: continue haldol and depakote Assessment and Plan: Continue current plan of care. Greater than 50% of the session was spent on counseling and/or coordination of care Patient educated on: other Informed Consent: further education needed Reason for contiued inpatient stay Substantial Risk for: harm to others and rapid decompensation
[2021-08-06] MEDS: Divalproex Sodium 500 MG TABLET.DR 1000 MG PO ×2 (13:46→20:25)
[2021-08-06] MEDS: HaloperidoL 5 MG TABLET PO (13:46)
[2021-08-06] MEDS: HaloperidoL 5 MG TABLET 10 MG PO (20:25)
[2021-08-07 06:00] VITALS: BP 136/65; PULSE 100; RESP 18; TEMP 36.3; O2SAT 98
[2021-08-07] MEDS: Divalproex Sodium 500 MG TABLET.DR 1000 MG PO ×2 (09:53→20:15)
[2021-08-07] MEDS: HaloperidoL 5 MG TABLET PO (09:53)
[2021-08-07 10:01] VITALS: BP 128/80; PULSE 112; RESP 16; TEMP 36.6; O2SAT 96
[2021-08-07 18:00] VITALS: RESP 18
[2021-08-07] MEDS: Benztropine Mesylate 1 MG TABLET PO (20:15)
[2021-08-07] MEDS: Famotidine 20 MG TABLET PO (20:15)
[2021-08-07] MEDS: HaloperidoL 5 MG TABLET 10 MG PO (20:15)
--- NOTE | 2021-08-07 21:57 | P.PNPSI_ITS ---
Subjective Subjective Date of Service: 08/08/21 Reason For Visit: Psychosis Interim History: pt difficult to engage; did not answer writers questions but instead asked if he could use the laundry and proceeded to engage with other staff. No behavioral outbursts. compliant with meds Mental Status Exam Mental Status Exam Narrative: Patient Appearance:?Unkempt Patient Orientation:?Person, Place? Level of Consciousness:?Awake Patient Behavior:?Guarded, Suspicious and minimal Eye Contact Mood Description:?irritable Affect Description:?constricted Patient Cognition Impaired:?No Ability to Follow Directions:?fair Speech Pattern:?Impoverished Delusions:?paranoid Thought Process:?goal oriented Thought Content:?concrete Abnormal Motor Activity Signs and Symptoms:none observed Judgement:?Poor Diagnostics Vital Signs (24Hr): Vital Signs - 24 hr 08/07/21 06:00 08/07/21 10:01 08/07/21 18:00 Temperature 97.3 F 97.8 F Pulse Rate 100 112 H Respiratory Rate 18 16 18 Blood Pressure 136/65 128/80 Pulse Oximetry 98 96 Body Mass Index 36.8 Labs Results: 07/27/21 08:22 06/19/21 17:56 Medications Medications Current Medications Acetaminophen (Acetaminophen 325 Mg Tablet) 650 mg PO Q12H PRN PRN Reason: Headache/Pain Mild Scale (1-3) Last Admin: 08/02/21 08:11 Dose: 325 mg Documented by: Al Hydroxide/Mg Hydroxide (Magnesium Hydrox/Alum Hydrox 30 Ml Oral.Susp) 30 ml PO Q6H PRN PRN Reason: Heartburn/Nausea Albuterol Sulfate (Albuterol Sulfate 90 Mcg 8 Gm Inhaler) 1 puff INHALE RQ4H PRN PRN Reason: sob/wheezing Last Admin: 08/05/21 00:22 Dose: 1 puff Documented by: Aspirin (Aspirin 325 Mg Tablet) 325 mg PO DAILY [facility] Last Admin: 08/07/21 09:59 Dose: Not Given Documented by: Benztropine Mesylate (Benztropine Mesylate 1 Mg Tablet) 1 mg PO BEDTIME [facility] Last Admin: 08/07/21 20:15 Dose: 1 mg Documented by: Divalproex Sodium (Divalproex Sodium 500 Mg Tablet.) 1,000 mg PO BID [facility] Last Admin: 08/07/21 20:15 Dose: 1,000 mg Documented by: Famotidine (Famotidine 20 Mg Tablet) 20 mg PO BEDTIME [facility] Last Admin: 08/07/21 20:15 Dose: 20 mg Documented by: Haloperidol (Haloperidol 5 Mg Tablet) 5 mg PO DAILY [facility] Last Admin: 08/07/21 09:53 Dose: 5 mg Documented by: Haloperidol (Haloperidol 5 Mg Tablet) 10 mg PO BEDTIME [facility] Last Admin: 08/07/21 20:15 Dose: 10 mg Documented by: Haloperidol (Haloperidol 5 Mg Tablet) 5 mg PO BID PRN PRN Reason: agitation Hydroxyzine HCl (Hydroxyzine Hcl 25 Mg Tablet) 25 mg PO Q6H PRN PRN Reason: Anxiety Last Admin: 07/15/21 17:57 Dose: 25 mg Documented by: Magnesium Hydroxide (Milk Of Magnesia 30 Ml Oral.Susp) 30 ml PO DAILY PRN PRN Reason: Constipation Metoprolol Succinate (Metoprolol Succinate Er 50 Mg Tab.Er.24h) 50 mg PO DAILY [facility]; Protocol Last Admin: 08/07/21 10:00 Dose: Not Given Documented by: Olanzapine (Olanzapine 10 Mg Vial) 5 mg IM BID PRN PRN Reason: if pt refuses oral antips Ondansetron HCl (Ondansetron Odt 4 Mg Tab.Rapdis) 4 mg TRANSLINGU Q6H PRN PRN Reason: Nausea Trazodone HCl (Trazodone Hcl 50 Mg Tablet) 50 mg PO BEDTIME PRN PRN Reason: continued insomnia Allergies Allergies Allergy/AdvReac Type Severity Reaction Status Date / Time No Known Allergies Allergy Verified 06/02/21 02:46 [No Known Allergies*] Assessment & Plan Assessment & Plan (1) Schizophrenia, paranoid, chronic with acute exacerbation: Status: Acute Code(s): F20.0 - Paranoid schizophrenia Assessment and Plan: No changes to current treatment plan Mr. Morrison is a 26 year-old male with hx of schizophrenia who has had 3 previous inpatient admission due to paranoid delusions mostly towards his neighbors. Pt increasingly more paranoia but declining to try more effective antipsychotic. He was committed on 06/29/21. currently on Section 8. Plan: continue haldol and depakote Assessment and Plan: Continue current plan of care. Greater than 50% of the session was spent on counseling and/or coordination of care Reason for contiued inpatient stay Substantial Risk for: inability to function
[2021-08-08] MEDS: HaloperidoL 5 MG TABLET PO (07:50)
[2021-08-08] MEDS: Divalproex Sodium 500 MG TABLET.DR 1000 MG PO ×2 (07:50→21:28)
[2021-08-08 08:00] VITALS: BP 132/84; PULSE 110; TEMP 30; O2SAT 97
--- NOTE | 2021-08-08 10:01 | HO.PSYCHPN ---
Subjective Subjective Date of Service: 08/10/21 Reason For Visit: Psychosis Interim History: Pt slightly calmer able to have difficult conversations (around discharge not being today) without explosive behaviors. Pt reports less paranoia towards neighbors. He reports feeling calmer and noting that this may be in part due to medications. Pt with poor insight into need for continued psychiatric treatment but open to work with [facility]. Per nursing, pt has been more visible in the unit, social with select peers, not attending groups. No aggression towards self or others. Medication Compliance: Yes Side effects from medications: No Attending Groups: No Review of Systems Review of Systems Yes all other systems are reviewed and are negative Constitutional: Reports as per HPI, Denies chills and Denies fever(s) Eyes: Reports as per HPI Cardiovascular: Reports no additional cardiovascular complaints and Denies syncope Respiratory: Denies cough Gastrointestinal: Denies abdominal pain and Denies heartburn Genitourinary: Reports as per HPI, Denies change in libido, Reports genital pain and Reports other Reports behavioral changes and Denies syncope Psychiatric: Reports as per HPI, Reports anxiety, Reports behavioral changes, Denies change in libido, Reports difficulty concentrating, Reports auditory hallucinations, Reports irritability, Reports mood swings, Reports paranoia and Reports suicidal ideation Endocrine: Denies change in libido Mental Status Exam Mental Status Exam Narrative: Appearance: wearing tshirt, disheveled, yawning; NAD Behavior:superficially cooperative psychomotor:no retardation/agitation present Speech:clear, normal rate/rhythm/volume, spontaneous Thought process:goal oriented- Thought content: discharge Mood:less irritable Affect: congruent, calmer SI:denies HI:denies VH/AH:denies Delusions: less paranoia towards neighbors Insight/judgment:poor Diagnostics Vital Signs (24Hr): Vital Signs - 24 hr 08/09/21 22:09 08/10/21 06:00 Temperature 98.8 F 97.3 F Pulse Rate 89 108 H Respiratory Rate 17 18 Blood Pressure 126/91 H 127/73 Pulse Oximetry 96 96 Body Mass Index 36.6 Labs Results: 07/27/21 08:22 06/19/21 17:56 Medications Medications Current Medications Acetaminophen (Acetaminophen 325 Mg Tablet) 650 mg PO Q12H PRN PRN Reason: Headache/Pain Mild Scale (1-3) Last Admin: 08/02/21 08:11 Dose: 325 mg Documented by: Al Hydroxide/Mg Hydroxide (Magnesium Hydrox/Alum Hydrox 30 Ml Oral.Susp) 30 ml PO Q6H PRN PRN Reason: Heartburn/Nausea Albuterol Sulfate (Albuterol Sulfate 90 Mcg 8 Gm Inhaler) 1 puff INHALE RQ4H PRN PRN Reason: sob/wheezing Last Admin: 08/05/21 00:22 Dose: 1 puff Documented by: Aspirin (Aspirin 325 Mg Tablet) 325 mg PO DAILY [facility] Last Admin: 08/10/21 07:45 Dose: Not Given Documented by: Benztropine Mesylate (Benztropine Mesylate 1 Mg Tablet) 1 mg PO BEDTIME [facility] Last Admin: 08/09/21 22:14 Dose: Not Given Documented by: Divalproex Sodium (Divalproex Sodium 500 Mg Tablet.Dr) 1,000 mg PO BID [facility] Last Admin: 08/10/21 07:45 Dose: 1,000 mg Documented by: Famotidine (Famotidine 20 Mg Tablet) 20 mg PO BEDTIME [facility] Last Admin: 08/09/21 22:14 Dose: Not Given Documented by: Haloperidol (Haloperidol 5 Mg Tablet) 5 mg PO BID PRN PRN Reason: agitation Haloperidol Decanoate (Haloperidol Decanoate 50 Mg/Ml Ampul) 150 mg IM Q28D [facility] Last Admin: 08/09/21 10:40 Dose: 150 mg Documented by: Hydroxyzine HCl (Hydroxyzine Hcl 25 Mg Tablet) 25 mg PO Q6H PRN PRN Reason: Anxiety Last Admin: 07/15/21 17:57 Dose: 25 mg Documented by: Magnesium Hydroxide (Milk Of Magnesia 30 Ml Oral.Susp) 30 ml PO DAILY PRN PRN Reason: Constipation Metoprolol Succinate (Metoprolol Succinate Er 50 Mg Tab.Er.24h) 50 mg PO DAILY [facility]; Protocol Last Admin: 08/10/21 07:46 Dose: Not Given Documented by: Olanzapine (Olanzapine 10 Mg Vial) 5 mg IM BID PRN PRN Reason: if pt refuses oral antips Ondansetron HCl (Ondansetron Odt 4 Mg Tab.Rapdis) 4 mg TRANSLINGU Q6H PRN PRN Reason: Nausea Trazodone HCl (Trazodone Hcl 50 Mg Tablet) 50 mg PO BEDTIME PRN PRN Reason: continued insomnia Allergies Allergies Allergy/AdvReac Type Severity Reaction Status Date / Time No Known Allergies Allergy Verified 06/02/21 02:46 [No Known Allergies*] Assessment & Plan Assessment & Plan (1) Schizophrenia, paranoid, chronic with acute exacerbation: Status: Acute Code(s): F20.0 - Paranoid schizophrenia Assessment and Plan: Mr. Morrison is a 26 year-old male with hx of schizophrenia who has had 3 previous inpatient admission due to paranoid delusions mostly towards his neighbors. Pt increasingly more paranoia but declining to try more effective antipsychotic. He was committed on 06/29/21. currently on Section 8. Plan: 1. Pt due for next Haldol Dec 150mg IM [id number]. He received initial loading dose of Haldol dec 100mg IM on 07/07, followed by another haldol dec 100mg on 07/12. At this point will d/c all oral haldol. 2. Continue depakote 1000mg po BID- check level on 08/10, pending LFTs and ammonia 3. Spoke with [facility] director Dr. Alejo Fletcher on 08/08- agreement to have second meeting with [facility] team and hospital team to plan aftercare plans. Assessment and Plan: Continue current plan of care. Greater than 50% of the session was spent on counseling and/or coordination of care Reason for contiued inpatient stay Substantial Risk for: inability to function
[2021-08-08] MEDS: HaloperidoL 5 MG TABLET 10 MG PO (21:28)
[2021-08-09 05:08] VITALS: BP 132/58; PULSE 116; RESP 16; TEMP 36.3; O2SAT 93
[2021-08-09] MEDS: Divalproex Sodium 500 MG TABLET.DR 1000 MG PO ×2 (06:59→21:59)
[2021-08-09] MEDS: HaloperidoL 5 MG TABLET PO (06:59)
--- NOTE | 2021-08-09 10:14 | P.PNPSI_ITS ---
Subjective Subjective Date of Service: 08/09/21 Reason For Visit: Psychosis Subjective Notes: Section 8 Interim History: Pt reports feeling sleepy at times during the day. He reports he was upset with [facility] pillowcase cutter as he was told that he didn't have his apartment anymore, which is not the case. We discussed aftercare plans and need for pt to follow up with providers to prevent him from coming to the hospital too soon after discharge. Pt overall calmer, asking to be discharged soon but able to stay calm and collective as we discussed barries to discharge and plan. He denies SI/HI. He reports he wants to return to his apartment, still some paranoia towards neighbors but less so. He adamantly denies wanting to go after neighbors. Medication Compliance: Yes Side effects from medications: No Review of Systems Review of Systems Yes all other systems are reviewed and are negative Constitutional: Reports as per HPI, Denies chills and Denies fever(s) Eyes: Reports as per HPI Cardiovascular: Reports no additional cardiovascular complaints and Denies syncope Respiratory: Denies cough Gastrointestinal: Denies abdominal pain and Denies heartburn Genitourinary: Reports as per HPI, Denies change in libido, Reports genital pain and Reports other Reports behavioral changes and Denies syncope Psychiatric: Reports as per HPI, Reports anxiety, Reports behavioral changes, Denies change in libido, Reports difficulty concentrating, Reports auditory hallucinations, Reports irritability, Reports mood swings, Reports paranoia and Reports suicidal ideation Endocrine: Denies change in libido Diagnostics Vital Signs (24Hr): Vital Signs - 24 hr 08/09/21 05:08 Temperature 97.3 F Pulse Rate 116 H Respiratory Rate 16 Blood Pressure 132/58 L Pulse Oximetry 93 Body Mass Index 36.8 Labs Results: 07/27/21 08:22 06/19/21 17:56 Medications Medications Current Medications Acetaminophen (Acetaminophen 325 Mg Tablet) 650 mg PO Q12H PRN PRN Reason: Headache/Pain Mild Scale (1-3) Last Admin: 08/02/21 08:11 Dose: 325 mg Documented by: Al Hydroxide/Mg Hydroxide (Magnesium Hydrox/Alum Hydrox 30 Ml Oral.Susp) 30 ml PO Q6H PRN PRN Reason: Heartburn/Nausea Albuterol Sulfate (Albuterol Sulfate 90 Mcg 8 Gm Inhaler) 1 puff INHALE RQ4H PRN PRN Reason: sob/wheezing Last Admin: 08/05/21 00:22 Dose: 1 puff Documented by: Aspirin (Aspirin 325 Mg Tablet) 325 mg PO DAILY [facility] Last Admin: 08/09/21 08:26 Dose: Not Given Documented by: Benztropine Mesylate (Benztropine Mesylate 1 Mg Tablet) 1 mg PO BEDTIME [facility] Last Admin: 08/08/21 21:30 Dose: Not Given Documented by: Divalproex Sodium (Divalproex Sodium 500 Mg Tablet.Dr) 1,000 mg PO BID [facility] Last Admin: 08/09/21 06:59 Dose: 1,000 mg Documented by: Famotidine (Famotidine 20 Mg Tablet) 20 mg PO BEDTIME [facility] Last Admin: 08/08/21 21:30 Dose: Not Given Documented by: Haloperidol (Haloperidol 5 Mg Tablet) 5 mg PO BID PRN PRN Reason: agitation Haloperidol Decanoate (Haloperidol Decanoate 50 Mg/Ml Ampul) 150 mg IM Q28D [facility] Hydroxyzine HCl (Hydroxyzine Hcl 25 Mg Tablet) 25 mg PO Q6H PRN PRN Reason: Anxiety Last Admin: 07/15/21 17:57 Dose: 25 mg Documented by: Magnesium Hydroxide (Milk Of Magnesia 30 Ml Oral.Susp) 30 ml PO DAILY PRN PRN Reason: Constipation Metoprolol Succinate (Metoprolol Succinate Er 50 Mg Tab.Er.24h) 50 mg PO DAILY [facility]; Protocol Last Admin: 08/09/21 08:26 Dose: Not Given Documented by: Olanzapine (Olanzapine 10 Mg Vial) 5 mg IM BID PRN PRN Reason: if pt refuses oral antips Ondansetron HCl (Ondansetron Odt 4 Mg Tab.Rapdis) 4 mg TRANSLINGU Q6H PRN PRN Reason: Nausea Trazodone HCl (Trazodone Hcl 50 Mg Tablet) 50 mg PO BEDTIME PRN PRN Reason: continued insomnia Allergies Allergies Allergy/AdvReac Type Severity Reaction Status Date / Time No Known Allergies Allergy Verified 06/02/21 02:46 [No Known Allergies*] Assessment & Plan Assessment & Plan (1) Schizophrenia, paranoid, chronic with acute exacerbation: Status: Acute Code(s): F20.0 - Paranoid schizophrenia Assessment and Plan: Mr. Morrison is a 26 year-old male with hx of schizophrenia who has had 3 previous inpatient admission due to paranoid delusions mostly towards his neighbors. Pt increasingly more paranoia but declining to try more effective antipsychotic. He was committed on 06/29/21. currently on Section 8. Plan: 1. Pt due for next Haldol Dec 150mg IM [id number]. He received initial loading dose of Haldol dec 100mg IM on 07/07, followed by another haldol dec 100mg on 07/12. At this point will d/c all oral haldol. 2. Continue depakote 1000mg po BID- check level on 08/10, pending LFTs and ammonia 3. Spoke with [facility] director Dr. Alejo Fletcher on 08/08- agreement to have second meeting with DM team and hospital team to plan aftercare plans. Assessment and Plan: Continue current plan of care. Greater than 50% of the session was spent on counseling and/or coordination of care Reason for contiued inpatient stay Substantial Risk for: med/psych decompensation
[2021-08-09 22:09] VITALS: BP 126/91; PULSE 89; RESP 17; TEMP 37.1; O2SAT 96
[2021-08-10 06:00] VITALS: BP 127/73; PULSE 108; RESP 18; TEMP 36.3; O2SAT 96
[2021-08-10 07:00] VITALS: BMI 36.6
[2021-08-10] MEDS: Divalproex Sodium 500 MG TABLET.DR 1000 MG PO ×2 (07:45→22:43)
--- NOTE | 2021-08-10 11:05 | P.PNPSI_ITS ---
Subjective Subjective Date of Service: 08/11/21 Reason For Visit: Psychosis Interim History: Pt slightly calmer able to have difficult conversations (around discharge not being today) without explosive behaviors. Pt reports less paranoia towards neighbors. He reports feeling calmer and noting that this may be in part due to medications. Pt with poor insight into need for continued psychiatric treatment but open to work with [facility]. Per nursing, pt has been more visible in the unit, social with select peers, not attending groups. No aggression towards self or others. Review of Systems Review of Systems Yes all other systems are reviewed and are negative Constitutional: Reports as per HPI, Denies chills and Denies fever(s) Eyes: Reports as per HPI Cardiovascular: Reports no additional cardiovascular complaints and Denies syncope Respiratory: Denies cough Gastrointestinal: Denies abdominal pain and Denies heartburn Genitourinary: Reports as per HPI, Denies change in libido, Reports genital pain and Reports other Reports behavioral changes and Denies syncope Psychiatric: Reports as per HPI, Reports anxiety, Reports behavioral changes, Denies change in libido, Reports difficulty concentrating, Reports auditory hallucinations, Reports irritability, Reports mood swings, Reports paranoia and Reports suicidal ideation Endocrine: Denies change in libido Mental Status Exam Mental Status Exam Narrative: Appearance: wearing tshirt, disheveled, yawning; NAD Behavior:superficially cooperative psychomotor:no retardation/agitation present Speech:clear, normal rate/rhythm/volume, spontaneous Thought process:goal oriented- Thought content: discharge Mood:less irritable Affect: congruent, calmer SI:denies HI:denies VH/AH:denies Delusions: less paranoia towards neighbors Insight/judgment:poor Diagnostics Vital Signs (24Hr): Vital Signs - 24 hr 08/11/21 06:00 Temperature 98.2 F Pulse Rate 104 H Respiratory Rate 18 Blood Pressure 130/77 Pulse Oximetry 93 Body Mass Index 36.6 Labs Results: 07/27/21 08:22 06/19/21 17:56 Medications Medications Current Medications Acetaminophen (Acetaminophen 325 Mg Tablet) 650 mg PO Q12H PRN PRN Reason: Headache/Pain Mild Scale (1-3) Last Admin: 08/02/21 08:11 Dose: 325 mg Documented by: Al Hydroxide/Mg Hydroxide (Magnesium Hydrox/Alum Hydrox 30 Ml Oral.Susp) 30 ml PO Q6H PRN PRN Reason: Heartburn/Nausea Albuterol Sulfate (Albuterol Sulfate 90 Mcg 8 Gm Inhaler) 1 puff INHALE RQ4H PRN PRN Reason: sob/wheezing Last Admin: 08/05/21 00:22 Dose: 1 puff Documented by: Aspirin (Aspirin 325 Mg Tablet) 325 mg PO DAILY [facility] Last Admin: 08/11/21 07:54 Dose: Not Given Documented by: Benztropine Mesylate (Benztropine Mesylate 1 Mg Tablet) 1 mg PO BEDTIME [facility] Last Admin: 08/10/21 22:47 Dose: Not Given Documented by: Divalproex Sodium (Divalproex Sodium 500 Mg Tablet.Dr) 1,000 mg PO BID [facility] Last Admin: 08/11/21 07:54 Dose: 1,000 mg Documented by: Famotidine (Famotidine 20 Mg Tablet) 20 mg PO BEDTIME [facility] Last Admin: 08/10/21 22:48 Dose: Not Given Documented by: Haloperidol (Haloperidol 5 Mg Tablet) 5 mg PO BID PRN PRN Reason: agitation Haloperidol Decanoate (Haloperidol Decanoate 50 Mg/Ml Ampul) 150 mg IM Q28D [facility] Last Admin: 08/09/21 10:40 Dose: 150 mg Documented by: Hydroxyzine HCl (Hydroxyzine Hcl 25 Mg Tablet) 25 mg PO Q6H PRN PRN Reason: Anxiety Last Admin: 07/15/21 17:57 Dose: 25 mg Documented by: Magnesium Hydroxide (Milk Of Magnesia 30 Ml Oral.Susp) 30 ml PO DAILY PRN PRN Reason: Constipation Metoprolol Succinate (Metoprolol Succinate Er 50 Mg Tab.Er.24h) 50 mg PO DAILY [facility]; Protocol Last Admin: 08/11/21 07:55 Dose: Not Given Documented by: Olanzapine (Olanzapine 10 Mg Vial) 5 mg IM BID PRN PRN Reason: if pt refuses oral antips Ondansetron HCl (Ondansetron Odt 4 Mg Tab.Rapdis) 4 mg TRANSLINGU Q6H PRN PRN Reason: Nausea Trazodone HCl (Trazodone Hcl 50 Mg Tablet) 50 mg PO BEDTIME PRN PRN Reason: continued insomnia Allergies Allergies Allergy/AdvReac Type Severity Reaction Status Date / Time No Known Allergies Allergy Verified 06/02/21 02:46 [No Known Allergies*] Assessment & Plan Assessment & Plan (1) Schizophrenia, paranoid, chronic with acute exacerbation: Status: Acute Code(s): F20.0 - Paranoid schizophrenia Assessment and Plan: Mr. Morrison is a 26 year-old male with hx of schizophrenia who has had 3 previous inpatient admission due to paranoid delusions mostly towards his neighbors. Pt increasingly more paranoia but declining to try more effective antipsychotic. He was committed on 06/29/21. currently on Section 8. Plan: 1. Pt due for next Haldol Dec 150mg IM [id number]. He received initial loading dose of Haldol dec 100mg IM on 07/07, followed by another haldol dec 100mg on 07/12. At this point will d/c all oral haldol. 2. Continue depakote 1000mg po BID- check level on 08/10, pending LFTs and am monia 3. Spoke with [facility] director Dr. Alejo Fletcher on 08/08- agreement to have second meeting with [facility] team and hospital team to plan aftercare plans. Assessment and Plan: Continue current plan of care. Greater than 50% of the session was spent on counseling and/or coordination of care Reason for contiued inpatient stay Substantial Risk for: rapid decompensation
[2021-08-11 06:00] VITALS: BP 130/77; PULSE 104; RESP 18; TEMP 36.8; O2SAT 93
[2021-08-11] MEDS: Divalproex Sodium 500 MG TABLET.DR 1000 MG PO ×2 (07:54→22:21)
--- NOTE | 2021-08-11 11:01 | P.PNPSI_ITS ---
Subjective Subjective Date of Service: 08/12/21 Reason For Visit: Psychosis Subjective Notes: Section 8 Interim History: Pt much calmer and engage in conversation about aftercare plans. We had meeting with pt and [facility]. Pt reports that when he was staying at [facility] he could still hear neighbors talking about him. He reports he has not heard neighbors talking about him here in hospital. He reports he feels safe to return to his apartment. He does not question that previous paranoia is sign of his mental illness, but thinks neighbors have stopped talking about him. He reports medications helping as he feels calmer. 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 Pt denies SI/HI. He agreed to [facility] services and [employer] support as well. Per nursing, pt much more pleasant, cooperative, taking medication without prompting. Medication Compliance: Yes Side effects from medications: No Diagnostics Vital Signs (24Hr): Vital Signs - 24 hr 08/11/21 18:00 08/12/21 06:42 Temperature 98.0 F Pulse Rate 74 109 H Respiratory Rate 18 Blood Pressure 113/76 133/74 Pulse Oximetry 97 Body Mass Index 36.6 Labs Results: 07/27/21 08:22 06/19/21 17:56 Medications Medications Current Medications Acetaminophen (Acetaminophen 325 Mg Tablet) 650 mg PO Q12H PRN PRN Reason: Headache/Pain Mild Scale (1-3) Last Admin: 08/02/21 08:11 Dose: 325 mg Documented by: Al Hydroxide/Mg Hydroxide (Magnesium Hydrox/Alum Hydrox 30 Ml Oral.Susp) 30 ml PO Q6H PRN PRN Reason: Heartburn/Nausea Albuterol Sulfate (Albuterol Sulfate 90 Mcg 8 Gm Inhaler) 1 puff INHALE RQ4H PRN PRN Reason: sob/wheezing Last Admin: 08/05/21 00:22 Dose: 1 puff Documented by: Aspirin (Aspirin 325 Mg Tablet) 325 mg PO DAILY [facility] Last Admin: 08/12/21 10:25 Dose: Not Given Documented by: Benztropine Mesylate (Benztropine Mesylate 1 Mg Tablet) 1 mg PO BEDTIME [facility] Last Admin: 08/11/21 21:43 Dose: Not Given Documented by: Divalproex Sodium (Divalproex Sodium 500 Mg Tablet.) 1,000 mg PO BID [facility] Last Admin: 08/12/21 10:24 Dose: 1,000 mg Documented by: Famotidine (Famotidine 20 Mg Tablet) 20 mg PO BEDTIME [facility] Last Admin: 08/11/21 22:21 Dose: Not Given Documented by: Haloperidol (Haloperidol 5 Mg Tablet) 5 mg PO BID PRN PRN Reason: agitation Haloperidol Decanoate (Haloperidol Decanoate 50 Mg/Ml Ampul) 150 mg IM Q28D [facility] Last Admin: 08/09/21 10:40 Dose: 150 mg Documented by: Hydroxyzine HCl (Hydroxyzine Hcl 25 Mg Tablet) 25 mg PO Q6H PRN PRN Reason: Anxiety Last Admin: 07/15/21 17:57 Dose: 25 mg Documented by: Magnesium Hydroxide (Milk Of Magnesia 30 Ml Oral.Susp) 30 ml PO DAILY PRN PRN Reason: Constipation Metoprolol Succinate (Metoprolol Succinate Er 50 Mg Tab.Er.24h) 50 mg PO DAILY [facility]; Protocol Last Admin: 08/12/21 10:25 Dose: Not Given Documented by: Olanzapine (Olanzapine 10 Mg Vial) 5 mg IM BID PRN PRN Reason: if pt refuses oral antips Ondansetron HCl (Ondansetron Odt 4 Mg Tab.Rapdis) 4 mg TRANSLINGU Q6H PRN PRN Reason: Nausea Trazodone HCl (Trazodone Hcl 50 Mg Tablet) 50 mg PO BEDTIME PRN PRN Reason: continued insomnia Allergies Allergies Allergy/AdvReac Type Severity Reaction Status Date / Time No Known Allergies Allergy Verified 06/02/21 02:46 [No Known Allergies*] Assessment & Plan Assessment & Plan (1) Schizophrenia, paranoid, chronic with acute exacerbation: Status: Acute Code(s): F20.0 - Paranoid schizophrenia Assessment and Plan: Mr. Morrison is a 26 year-old male with hx of schizophrenia who has had 3 previous inpatient admission due to paranoid delusions mostly towards his neighbors. Pt increasingly more paranoia but declining to try more effective antipsychotic. He was committed on 06/29/21. currently on Section 8. Plan: 1. Pt due for next Haldol Dec 150mg IM [id number]. He received initial loading dose of Haldol dec 100mg IM on 07/07, followed by another haldol dec 100mg on 07/12. At this point will d/c all oral haldol. 2. Continue depakote 1000mg po BID- check level on 08/10, pending LFTs and ammonia 3. Spoke with [facility] director Dr. Alejo Fletcher on 08/08- agreement to have second meeting with DM team and hospital team to plan aftercare plans. Assessment and Plan: Continue current plan of care. Greater than 50% of the session was spent on counseling and/or coordination of care Reason for contiued inpatient stay Substantial Risk for: rapid decompensation
[2021-08-11 18:00] VITALS: BP 113/76; PULSE 74
[2021-08-12 06:42] VITALS: BP 133/74; PULSE 109; RESP 18; TEMP 36.7; O2SAT 97
[2021-08-12] MEDS: Divalproex Sodium 500 MG TABLET.DR 1000 MG PO ×2 (10:24→20:25)
--- NOTE | 2021-08-12 11:51 | P.PNPSI_ITS ---
Subjective Subjective Date of Service: 08/12/21 Reason For Visit: Psychosis Interim History: Patient a little difficult to engage. Class B Driver asked how his [facility] meeting went yesterday to which he said it went fine. He says he still does not know when he will be discharged. Class B Driver inquired how patient was overall doing, feeling to which patient said why do you care... Unless you going to discharge me why talk. He walked away and discussion concluded Mental Status Exam Mental Status Exam Narrative: Appearance: wearing Tshirt, well groomed, neatly shaven; Behavior:minimally cooperative psychomotor:no retardation/agitation present Speech:clear, normal rate/rhythm/volume, spontaneous Thought process:goal oriented- Thought content: discharge Mood:mildly irritable Affect: congruent, but calmer SI:denies HI:denies VH/AH:denies Delusions: less paranoia towards neighbors Insight/judgment:impaired but improved Diagnostics Vital Signs (24Hr): Vital Signs - 24 hr 08/11/21 18:00 08/12/21 06:42 Temperature 98.0 F Pulse Rate 74 109 H Respiratory Rate 18 Blood Pressure 113/76 133/74 Pulse Oximetry 97 Body Mass Index 36.6 Labs Results: 07/27/21 08:22 06/19/21 17:56 Medications Medications Current Medications Acetaminophen (Acetaminophen 325 Mg Tablet) 650 mg PO Q12H PRN PRN Reason: Headache/Pain Mild Scale (1-3) Last Admin: 08/02/21 08:11 Dose: 325 mg Documented by: Al Hydroxide/Mg Hydroxide (Magnesium Hydrox/Alum Hydrox 30 Ml Oral.Susp) 30 ml PO Q6H PRN PRN Reason: Heartburn/Nausea Albuterol Sulfate (Albuterol Sulfate 90 Mcg 8 Gm Inhaler) 1 puff INHALE RQ4H PRN PRN Reason: sob/wheezing Last Admin: 08/05/21 00:22 Dose: 1 puff Documented by: Aspirin (Aspirin 325 Mg Tablet) 325 mg PO DAILY [facility] Last Admin: 08/12/21 10:25 Dose: Not Given Documented by: Benztropine Mesylate (Benztropine Mesylate 1 Mg Tablet) 1 mg PO BEDTIME [facility] Last Admin: 08/11/21 21:43 Dose: Not Given Documented by: Divalproex Sodium (Divalproex Sodium 500 Mg Tablet.) 1,000 mg PO BID [facility] Last Admin: 08/12/21 10:24 Dose: 1,000 mg Documented by: Famotidine (Famotidine 20 Mg Tablet) 20 mg PO BEDTIME [facility] Last Admin: 08/11/21 22:21 Dose: Not Given Documented by: Haloperidol (Haloperidol 5 Mg Tablet) 5 mg PO BID PRN PRN Reason: agitation Haloperidol Decanoate (Haloperidol Decanoate 50 Mg/Ml Ampul) 150 mg IM Q28D [facility] Last Admin: 08/09/21 10:40 Dose: 150 mg Documented by: Hydroxyzine HCl (Hydroxyzine Hcl 25 Mg Tablet) 25 mg PO Q6H PRN PRN Reason: Anxiety Last Admin: 07/15/21 17:57 Dose: 25 mg Documented by: Magnesium Hydroxide (Milk Of Magnesia 30 Ml Oral.Susp) 30 ml PO DAILY PRN PRN Reason: Constipation Metoprolol Succinate (Metoprolol Succinate Er 50 Mg Tab.Er.24h) 50 mg PO DAILY [facility]; Protocol Last Admin: 08/12/21 10:25 Dose: Not Given Documented by: Olanzapine (Olanzapine 10 Mg Vial) 5 mg IM BID PRN PRN Reason: if pt refuses oral antips Ondansetron HCl (Ondansetron Odt 4 Mg Tab.Rapdis) 4 mg TRANSLINGU Q6H PRN PRN Reason: Nausea Trazodone HCl (Trazodone Hcl 50 Mg Tablet) 50 mg PO BEDTIME PRN PRN Reason: continued insomnia Allergies Allergies Allergy/AdvReac Type Severity Reaction Status Date / Time No Known Allergies Allergy Verified 06/02/21 02:46 [No Known Allergies*] Assessment & Plan Assessment & Plan (1) Schizophrenia, paranoid, chronic with acute exacerbation: Status: Acute Code(s): F20.0 - Paranoid schizophrenia Assessment and Plan: Class B Driver covering Patient seen 08/12 Patient difficult to engage No changes to current treatment plan Mr. Morrison is a 26 year-old male with hx of schizophrenia who has had 3 previous inpatient admission due to paranoid delusions mostly towards his neighbors. Pt increasingly more paranoia but declining to try more effective antipsychotic. He was committed on 06/29/21. currently on Section 8. Plan: 1. Pt due for next Haldol Dec 150mg IM [id number]. He received initial loading dose of Haldol dec 100mg IM on 07/07, followed by another haldol dec 100mg on 07/12. At this point will d/c all oral haldol. 2. Continue depakote 1000mg po BID- check level on 08/10, pending LFTs and ammo arash 3. Spoke with [facility] director Dr. Alejo Fletcher on 08/08- agreement to have second meeting with [facility] team and hospital team to plan aftercare plans. Assessment and Plan: Continue current plan of care. Greater than 50% of the session was spent on counseling and/or coordination of care Reason for contiued inpatient stay Substantial Risk for: other
[2021-08-13 06:00] VITALS: BP 149/73; PULSE 104; RESP 18; TEMP 36.6; O2SAT 95
[2021-08-13] MEDS: Divalproex Sodium 500 MG TABLET.DR 1000 MG PO ×2 (08:28→22:17)
--- NOTE | 2021-08-13 10:45 | P.PNPSI_ITS ---
Subjective Subjective Date of Service: 08/13/21 Reason For Visit: Psychosis Interim History: pt a little more pleasant and relaxed with commercial insurance underwriter; he returns hello and asks how commercial insurance underwriter is doing also. No complaints and no requests. Pt came to nursing on his own to ask for meds; showering and appropriate with peers and staff. Mental Status Exam Mental Status Exam Narrative: Appearance: wearing Tshirt, well groomed, neatly shaven;? Behavior:more cooperative, calm psychomotor:no retardation/agitation present Speech:clear, normal rate/rhythm/volume, spontaneous Thought process:goal oriented- Thought content: discharge Mood: good Affect: congruent, but calmer SI:denies HI:denies VH/AH:denies Delusions: less paranoia towards neighbors Insight/judgment:impaired but improved Diagnostics Vital Signs (24Hr): Vital Signs - 24 hr 08/13/21 06:00 Temperature 97.9 F Pulse Rate 104 H Respiratory Rate 18 Blood Pressure 149/73 H Pulse Oximetry 95 Body Mass Index 36.6 Labs Results: 07/27/21 08:22 06/19/21 17:56 Medications Medications Current Medications Acetaminophen (Acetaminophen 325 Mg Tablet) 650 mg PO Q12H PRN PRN Reason: Headache/Pain Mild Scale (1-3) Last Admin: 08/02/21 08:11 Dose: 325 mg Documented by: Al Hydroxide/Mg Hydroxide (Magnesium Hydrox/Alum Hydrox 30 Ml Oral.Susp) 30 ml PO Q6H PRN PRN Reason: Heartburn/Nausea Albuterol Sulfate (Albuterol Sulfate 90 Mcg 8 Gm Inhaler) 1 puff INHALE RQ4H PRN PRN Reason: sob/wheezing Last Admin: 08/05/21 00:22 Dose: 1 puff Documented by: Aspirin (Aspirin 325 Mg Tablet) 325 mg PO DAILY [facility] Last Admin: 08/13/21 08:29 Dose: Not Given Documented by: Benztropine Mesylate (Benztropine Mesylate 1 Mg Tablet) 1 mg PO BEDTIME [facility] Last Admin: 08/12/21 20:27 Dose: Not Given Documented by: Divalproex Sodium (Divalproex Sodium 500 Mg Tablet.) 1,000 mg PO BID [facility] Last Admin: 08/13/21 08:28 Dose: 1,000 mg Documented by: Famotidine (Famotidine 20 Mg Tablet) 20 mg PO BEDTIME [facility] Last Admin: 08/12/21 20:27 Dose: Not Given Documented by: Haloperidol (Haloperidol 5 Mg Tablet) 5 mg PO BID PRN PRN Reason: agitation Haloperidol Decanoate (Haloperidol Decanoate 50 Mg/Ml Ampul) 150 mg IM Q28D [facility] Last Admin: 08/09/21 10:40 Dose: 150 mg Documented by: Hydroxyzine HCl (Hydroxyzine Hcl 25 Mg Tablet) 25 mg PO Q6H PRN PRN Reason: Anxiety Last Admin: 07/15/21 17:57 Dose: 25 mg Documented by: Magnesium Hydroxide (Milk Of Magnesia 30 Ml Oral.Susp) 30 ml PO DAILY PRN PRN Reason: Constipation Metoprolol Succinate (Metoprolol Succinate Er 50 Mg Tab.Er.24h) 50 mg PO DAILY [facility]; Protocol Last Admin: 08/13/21 08:29 Dose: Not Given Documented by: Olanzapine (Olanzapine 10 Mg Vial) 5 mg IM BID PRN PRN Reason: if pt refuses oral antips Ondansetron HCl (Ondansetron Odt 4 Mg Tab.Rapdis) 4 mg TRANSLINGU Q6H PRN PRN Reason: Nausea Trazodone HCl (Trazodone Hcl 50 Mg Tablet) 50 mg PO BEDTIME PRN PRN Reason: continued insomnia Allergies Allergies Allergy/AdvReac Type Severity Reaction Status Date / Time No Known Allergies Allergy Verified 06/02/21 02:46 [No Known Allergies*] Assessment & Plan Assessment & Plan (1) Schizophrenia, paranoid, chronic with acute exacerbation: Status: Acute Code(s): F20.0 - Paranoid schizophrenia Assessment and Plan: 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 Morrsion is a 26 year-old male with hx of schizophrenia who has had 3 previous inpatient admission due to paranoid delusions mostly towards his neighbors. Pt increasingly more paranoia but declining to try more effective antipsychotic. He was committed on 06/29/21. currently on Section 8. Plan: 1. Pt due for next Haldol Dec 150mg IM [id number]. He received initial loading dose of Haldol dec 100mg IM on 07/07, followed by another haldol dec 100mg on 07/12. At this point will d/c all oral haldol. 2. Continue depakote 1000mg po BID- check level on 08/10, pending LFTs and ammonia 3. Spoke with [facility] director Dr. Alejo Fletcher on 08/08- agreement to have second meeting with [facility] team and hospital team to plan aftercare plans. Assessment and Plan: Continue current plan of care. Greater than 50% of the session was spent on counseling and/or coordination of care Reason for contiued inpatient stay Substantial Risk for: other
--- NOTE | 2021-08-14 00:23 | PC.NURSE ---
This fiction and nonfiction writer prose went into the patient's room and found him to be asleep. This fiction and nonfiction writer prose called out to patient several times. Patient mumbled and said I'm going back to sleep . This fiction and nonfiction writer prose brought patient's medications to his room and strongly encouraged patient to wake up and take his medications. Patient got up and took the medication cup and cup of water and closed the door to his room and said Back off, leave me alone, I will take my medication . This fiction and nonfiction writer prose was unable to determine if patient actually took the Depakote or not. Patient has a history of being aggressive. He did not take his Cogentin or Famitodine at [facility]. Information passed on to paraeducator.
[2021-08-14 06:00] VITALS: BP 138/89; PULSE 103; RESP 18; TEMP 36.7; O2SAT 97
[2021-08-14] MEDS: Divalproex Sodium 500 MG TABLET.DR 1000 MG PO ×2 (08:04→22:08)
--- NOTE | 2021-08-14 21:21 | HO.PSYCHPN ---
Subjective Subjective Date of Service: 08/14/21 Reason For Visit: Psychosis Interim History: no changes Mental Status Exam Mental Status Exam Narrative: Appearance: wearing Tshirt, well groomed, neatly shaven;? Behavior:more cooperative, calm psychomotor:no retardation/agitation present Speech:clear, normal rate/rhythm/volume, spontaneous Thought process:goal oriented- Thought content: discharge Mood: good Affect: congruent, but calmer SI:denies HI:denies VH/AH:denies Delusions: less paranoia towards neighbors Insight/judgment:impaired but improved Diagnostics Vital Signs (24Hr): Vital Signs - 24 hr 08/14/21 06:00 Temperature 98.1 F Pulse Rate 103 H Respiratory Rate 18 Blood Pressure 138/89 Pulse Oximetry 97 Body Mass Index 36.6 Labs Results: 07/27/21 08:22 06/19/21 17:56 Medications Medications Current Medications Acetaminophen (Acetaminophen 325 Mg Tablet) 650 mg PO Q12H PRN PRN Reason: Headache/Pain Mild Scale (1-3) Last Admin: 08/02/21 08:11 Dose: 325 mg Documented by: Al Hydroxide/Mg Hydroxide (Magnesium Hydrox/Alum Hydrox 30 Ml Oral.Susp) 30 ml PO Q6H PRN PRN Reason: Heartburn/Nausea Albuterol Sulfate (Albuterol Sulfate 90 Mcg 8 Gm Inhaler) 1 puff INHALE RQ4H PRN PRN Reason: sob/wheezing Last Admin: 08/05/21 00:22 Dose: 1 puff Documented by: Aspirin (Aspirin 325 Mg Tablet) 325 mg PO DAILY [facility] BEDS AT [facility] Last Admin: 08/14/21 08:06 Dose: Not Given Documented by: Benztropine Mesylate (Benztropine Mesylate 1 Mg Tablet) 1 mg PO BEDTIME [facility] 234 BEDS AT [facility] Last Admin: 08/13/21 22:22 Dose: Not Given Documented by: Divalproex Sodium (Divalproex Sodium 500 Mg Tablet.Dr) 1,000 mg PO BID [facility]CLUDE 234 BEDS AT [facility] Last Admin: 08/14/21 08:04 Dose: 1,000 mg Documented by: Famotidine (Famotidine 20 Mg Tablet) 20 mg PO BEDTIME [facility]S [facility]CLUDE 234 BEDS AT [facility] Last Admin: 08/13/21 22:22 Dose: Not Given Documented by: Haloperidol (Haloperidol 5 Mg Tablet) 5 mg PO BID PRN PRN Reason: agitation Haloperidol Decanoate (Haloperidol Decanoate 50 Mg/Ml Ampul) 150 mg IM Q28D [facility] Last Admin: 08/09/21 10:40 Dose: 150 mg Documented by: Hydroxyzine HCl (Hydroxyzine Hcl 25 Mg Tablet) 25 mg PO Q6H PRN PRN Reason: Anxiety Last Admin: 07/15/21 17:57 Dose: 25 mg Documented by: Magnesium Hydroxide (Milk Of Magnesia 30 Ml Oral.Susp) 30 ml PO DAILY PRN PRN Reason: Constipation Metoprolol Succinate (Metoprolol Succinate Er 50 Mg Tab.Er.24h) 50 mg PO DAILY [facility] 234 BEDS AT [facility]; Protocol Last Admin: 08/14/21 08:06 Dose: Not Given Documented by: Olanzapine (Olanzapine 10 Mg Vial) 5 mg IM BID PRN PRN Reason: if pt refuses oral antips Ondansetron HCl (Ondansetron Odt 4 Mg Tab.Rapdis) 4 mg TRANSLINGU Q6H PRN PRN Reason: Nausea Trazodone HCl (Trazodone Hcl 50 Mg Tablet) 50 mg PO BEDTIME PRN PRN Reason: continued insomnia Allergies Allergies Allergy/AdvReac Type Severity Reaction Status Date / Time No Known Allergies Allergy Verified 06/02/21 02:46 [No Known Allergies*] Assessment & Plan Assessment & Plan (1) Schizophrenia, paranoid, chronic with acute exacerbation: Status: Acute Code(s): F20.0 - Paranoid schizophrenia Assessment and Plan: 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 Morrison is a 26 year-old male with hx of schizophrenia who has had 3 previous inpatient admission due to paranoid delusions mostly towards his neighbors. Pt increasingly more paranoia but declining to try more effective antipsychotic. He was committed on 06/29/21. currently on Section 8. Plan: 1. Pt due for next Haldol Dec 150mg IM [id number]. He received initial loading dose of Haldol dec 100mg IM on 07/07, followed by another haldol dec 100mg on 07/12. At this point will d/c all oral haldol. 2. Continue depakote 1000mg po BID- check level on 08/10, pending LFTs and ammonia 3. Spoke with [facility] director Dr. Alejo Fletcher on 08/08- agreement to have second meeting with [facility] team and hospital team to plan aftercare plans. Assessment and Plan: Continue current plan of care. Greater than 50% of the session was spent on counseling and/or coordination of care Reason for contiued inpatient stay Substantial Risk for: other
[2021-08-14 22:05] VITALS: BP 139/69; PULSE 108; TEMP 36.9
[2021-08-15 06:00] VITALS: BP 159/73; PULSE 95; RESP 16; TEMP 36; O2SAT 96
[2021-08-15] MEDS: Divalproex Sodium 500 MG TABLET.DR 1000 MG PO ×2 (07:55→20:42)
--- NOTE | 2021-08-15 12:38 | P.PNPSI_ITS ---
Subjective Subjective Date of Service: 08/15/21 Reason For Visit: Psychosis Interim History: Pt is much less guarded. He is visible in the unit but does not attend assigned groups. He has been taking his medications without any prompting. Pt denies SI/HI. He denies VH/AH. No behavioral concerns. Medication Compliance: Yes Side effects from medications: No Review of Systems Review of Systems Yes all other systems are reviewed and are negative Constitutional: Reports as per HPI, Denies chills and Denies fever(s) Eyes: Reports as per HPI Cardiovascular: Reports no additional cardiovascular complaints and Denies syncope Respiratory: Denies cough Gastrointestinal: Denies abdominal pain and Denies heartburn Genitourinary: Reports as per HPI, Denies change in libido, Reports genital pain and Reports other Reports behavioral changes and Denies syncope Psychiatric: Reports as per HPI, Reports anxiety, Reports behavioral changes, Denies change in libido, Reports difficulty concentrating, Reports auditory hallucinations, Reports irritability, Reports mood swings, Reports paranoia and Reports suicidal ideation Endocrine: Denies change in libido Mental Status Exam Mental Status Exam Narrative: Appearance: wearing Tshirt, well groomed, neatly shaven;? Behavior:more cooperative, calm psychomotor:no retardation/agitation present Speech:clear, normal rate/rhythm/volume, spontaneous Thought process:goal oriented- Thought content: discharge Mood: good Affect: congruent, but calmer SI:denies HI:denies VH/AH:denies Delusions: less paranoia towards neighbors Insight/judgment:impaired but improved Patient Appearance: Unkempt Patient Orientation: Person, Place and Situation Level of Consciousness: Awake Patient Behavior: Guarded, Suspicious and Poor Eye Contact Mood Description: Suspicious Affect Description: Blunted Patient Cognition Impaired: No Ability to Follow Directions: Poor Speech Pattern: Impoverished Memory Description: Remote Impaired and Episodic Impaired Diagnostics Vital Signs (24Hr): Vital Signs - 24 hr 08/14/21 22:05 08/15/21 06:00 Temperature 98.4 F 96.8 F Pulse Rate 108 H 95 Respiratory Rate 16 Blood Pressure 139/69 159/73 H Pulse Oximetry 96 Body Mass Index 36.6 Labs Results: 07/27/21 08:22 06/19/21 17:56 Medications Medications Current Medications Acetaminophen (Acetaminophen 325 Mg Tablet) 650 mg PO Q12H PRN PRN Reason: Headache/Pain Mild Scale (1-3) Last Admin: 08/02/21 08:11 Dose: 325 mg Documented by: Al Hydroxide/Mg Hydroxide (Magnesium Hydrox/Alum Hydrox 30 Ml Oral.Susp) 30 ml PO Q6H PRN PRN Reason: Heartburn/Nausea Albuterol Sulfate (Albuterol Sulfate 90 Mcg 8 Gm Inhaler) 1 puff INHALE RQ4H PRN PRN Reason: sob/wheezing Last Admin: 08/05/21 00:22 Dose: 1 puff Documented by: Aspirin (Aspirin 325 Mg Tablet) 325 mg PO DAILY [facility] Last Admin: 08/15/21 07:56 Dose: Not Given Documented by: Benztropine Mesylate (Benztropine Mesylate 1 Mg Tablet) 1 mg PO BEDTIME [facility] Last Admin: 08/14/21 22:24 Dose: Not Given Documented by: Divalproex Sodium (Divalproex Sodium 500 Mg Tablet.) 1,000 mg PO BID [facility] Last Admin: 08/15/21 07:55 Dose: 1,000 mg Documented by: Famotidine (Famotidine 20 Mg Tablet) 20 mg PO BEDTIME [facility] Last Admin: 08/14/21 22:25 Dose: Not Given Documented by: Haloperidol (Haloperidol 5 Mg Tablet) 5 mg PO BID PRN PRN Reason: agitation Haloperidol Decanoate (Haloperidol Decanoate 50 Mg/Ml Ampul) 150 mg IM Q28D [facility] Last Admin: 08/09/21 10:40 Dose: 150 mg Documented by: Hydroxyzine HCl (Hydroxyzine Hcl 25 Mg Tablet) 25 mg PO Q6H PRN PRN Reason: Anxiety Last Admin: 07/15/21 17:57 Dose: 25 mg Documented by: Magnesium Hydroxide (Milk Of Magnesia 30 Ml Oral.Susp) 30 ml PO DAILY PRN PRN Reason: Constipation Metoprolol Succinate (Metoprolol Succinate Er 50 Mg Tab.Er.24h) 50 mg PO DAILY [facility]; Protocol Last Admin: 08/15/21 07:56 Dose: Not Given Documented by: Olanzapine (Olanzapine 10 Mg Vial) 5 mg IM BID PRN PRN Reason: if pt refuses oral antips Ondansetron HCl (Ondansetron Odt 4 Mg Tab.Rapdis) 4 mg TRANSLINGU Q6H PRN PRN Reason: Nausea Trazodone HCl (Trazodone Hcl 50 Mg Tablet) 50 mg PO BEDTIME PRN PRN Reason: continued insomnia Allergies Allergies Allergy/AdvReac Type Severity Reaction Status Date / Time No Known Allergies Allergy Verified 06/02/21 02:46 [No Known Allergies*] Assessment & Plan Assessment & Plan (1) Schizophrenia, paranoid, chronic with acute exacerbation: Status: Acute Code(s): F20.0 - Paranoid schizophrenia Assessment and Plan: Mr. Morrison is a 26 year-old male with hx of schizophrenia who has had 3 previous inpatient admission due to paranoid delusions mostly towards his neighbors. Pt increasingly more paranoia but declining to try more effective antipsychotic. He was committed on 06/29/21. currently on Section 8. Plan: 1. Pt due for next Haldol Dec 150mg IM [id number]. He received initial loading dose of Haldol dec 100mg IM on 07/07, followed by another haldol dec 100mg on 07/12. At this point will d/c all oral haldol. 2. Continue depakote 1000mg po BID- check level on 08/10, pending LFTs and ammonia 3. Spoke with [facility] director Dr. Alejo Fletcher on 08/08- agreement to have second meeting with [facility] team and hospital team to plan aftercare plans. Assessment and Plan: Continue current plan of care. Greater than 50% of the session was spent on counseling and/or coordination of care Reason for contiued inpatient stay Substantial Risk for: rapid decompensation
[2021-08-15 17:05] VITALS: BP 135/82; PULSE 120; TEMP 36.6
[2021-08-15] MEDS: Benztropine Mesylate 1 MG TABLET PO (20:49)
[2021-08-16] MEDS: Divalproex Sodium 500 MG TABLET.DR 1000 MG PO (08:19)
--- NOTE | 2021-08-16 09:50 | PM.PSYDC ---
DS: Providers Provider Date of Service: 08/16/21 Date of admission: 06/19/21 19:21 Primary care physician: Rand Stover MD Consults: 06/24/21 11:36 Consult to Urology Routine Consulting Provider: Josh Arvizu Reason for consultation: dorsal vein swollen, painful Has provider been notified: Yes DS: Diagnosis Discharge Diagnosis (1) Schizophrenia, paranoid, chronic with acute exacerbation: Status: Acute DS: Medications Discharge Medications Home Medications: Previous Rx's Medication Instructions Recorded benztropine 1 mg tablet 1 mg PO BEDTIME #30 tab 08/16/21 divalproex 500 mg tablet,extended 1,000 mg PO DAILY #60 tab 08/16/21 release 24 hr haloperidol decanoate 50 mg/mL 150 mg IM Q28D #1 ml 08/16/21 intramuscular solution Mental Status Exam Mental Status Exam Narrative: Narrative:?Appearance: well groomed, neatly shaven in no acute distress? Behavior:more cooperative, calm psychomotor:no retardation/agitation present Speech:clear, normal rate/rhythm/volume, spontaneous Thought process:goal oriented- Thought content: no overt psychosis, looking forward to see family and continue tx. Mood: good Affect: congruent, but calmer SI:denies HI:denies VH/AH:denies Delusions: less paranoia towards neighbors Insight/judgment:impaired but improved Mem/cog:alert, oriented x 3. grossly intact to conversational testing. DS: Summary Hospital Course Hospital Course: 26 y.o. Who carries a dx of schizophrenia. He presented to the ED after he went to the [facility] and stated he wasn?t ?feeling right? and reported depression. He has been non-adherent with outpatient meds including risperdal x 10 days. Per crisis eval, he has been eating poorly, isolating in bed. He was most recently discharged from 06/01/21 on risperdal 3 mg BID. Precipitating factors include that he disclosed his bio dad recently stabbed and killed a worker from [facility] and [facility] not [facility]. 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 Says he likes to keep to himself but then will feel alone, ?depressed.? Says his mind is ?moving fast? and he has been sleeping only 1-2 hours at a time x 10 days. He says he does not sleep well because he feels like ?people are observing me,? endorses paranoid thoughts that his neighbors have ?dubious intentions and want to hurt me.? Denies that this is reality based, as he has only spoken with a neighbor once and denies that they made threats against him but says he has heard them say his name. Says that his neighbors ?know my business? and ?can feel my energy,? i.e. know when he is in the shower or touching something, ?that?s why I like living away from people.? Reports feeling triggered by watching 22 news due to the incident with his dad, ?it messed up my mind,? and its ?frustrating that I cant see him anymore.? Says he feels safe in the hospital because ?outside I can feel people?s malices? but does not feel this on the unit. Per Nura, the risperdal was helping, ?I was feeling well? but says he stopped taking it due to a side effect of headache.? In the milieu, patient is safe, pacing the halls, somewhat intrusive, anxious. Denies SI/SIB/HI upon inquiry. Denies irritability or assaultive ideation. Says he feels safe. PPH: -Has OP psych services at [facility]. Prescriber is Ankush Hartman. Has [facility] services (Zheng Longoria is nurse case manager). Has [facility] ([facility]).? -Hx of multiple crisis evals since 2010, known to CARE team from 2 previous evals, had 2 inpatient psych admissions in 05/2021. Hx of IPLOC at and [place] in 2017. Hx of [facility] respite admission. Hx of non-adherence with psych meds in the community.? -Hx of presenting with hallucinations, paranoid delusions, disorganized thought content, SI. Frequently reports harassment from his neighbors. Hx of defiant bx in childhood. -Past med trials: Amitriptyline 10mg QD, risperdal PO, trazodone, trileptal, seroquel. Says he was put on medication in childhood while living in [place] but doesn?t remember what med.? PMH: -Asthma -Dental caries SH: -Lives alone in an apartment, single. Hx of homelessness. Family supports include an Aunt. -Per crisis chema, born in [place], [place] but raised in [place] by grandmother until she in , he then moved in with extended family.? -Graduated h.s. 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 Currently unemployed, has SSDI. FH: -Schizophrenia HOSPITAL COURSE On the unit, Mr. Morrison was admitted on CV. He did sign 3 day notice. Pt presented as paranoia towards neighbors, making threats about taking matter into his hands as he had gone to police before but ended up in psychiatric unit. Pt reported that after last admission, he went to [facility] as he did not feel safe being in his apartment. He reports that at the mot he could still hear his neighbors talking about him. He declined changes to medication- risperidone, which he had taken higher doses of with little to no therapeutic benefit in past psych admission at [facility]. Pt severity of paranoia, declining to change antipsychotic to more effective medication and threats to neighbors, decision was to petition court for involuntary treatment, which was granted. Pt was started on haldol, which was titrated to 10mg po BID. Pt presented with episodes of agitation, low frustration tolerance. He was started on depakote for impulsive and aggressive behaviors. He slowly started to show signs of improvement in that he reported that he did not hear voices of neighbors, he was much less agitated when talking about neighbors and question to some extend whether neighbors in fact where trying to hurt him or not. He was able to have more meaningful conversation with his primary team in the hospital and with [facility] worker and other services. He received Haldol Decanoate. His affect gradually presented as much less irritable, less suspicious, less paranoid. He was restraint about 3-4 times due to increase agitation and not responding to redirection. However, he did not have any signs of aggression towards self or others several weeks prior to discharge. He denies suicidal ideation throughout this admission. He denied HI towards neighors also several weeks prior to d/c and showed increased insight into paranoia. Pt may benefit from community rousseau so that he can continue haldol decanoate. Status at Discharge Cognitive/behavioral status at discharge: Pt with brighter affect. Much less suspicious and paranoia towards neighbors. No SI/HI. No signs of aggression towards self or others several weeks prior to discharge. He agreed to continue OP psych tx and had Haldol dec. Functional status at discharge: independent ambulation Overall status at discharge: patient is progressing back to baseline Time Spent with Patient Time attestation: Total time spent providing and/or coordinating discharge services: Discharge Plan Discharge Patient Disposition: Home, Self-Care Discharge Diagnosis: Schizophrenia, paranoid type Referrals: Dr. Ankush Hartman ([facility]) [Other] - 09/27/21 2:20 pm (Esta es reilly marisabel de telesalud. Por favor conteste blanton telefono cuando llamen) Dr. Anuksh Hartman (psychiatry) [Other] - 09/06/21 3:20 pm (Esta es reilly marisabel de telesalud. Por favor conteste blanton telefono cuando llamen) Maurizio Deluna Visiting RN [Other] - 08/17/21 (Fax- [phone] For daily help with Medication. The RN will contact you to set up the appointment. ) Rand Stover MD [Primary Care Provider] - 08/30/21 10:00 am (VIA PHONE) Discharge Medications: New benztropine 1 mg Tablet 1 mg PO BEDTIME Qty: 30 RF: 0 divalproex 500 mg Tablet Extended Release 24 Hr 1,000 mg PO DAILY Qty: 60 RF: 0 haloperidol decanoate 50 mg/mL Solution 150 mg IM Q28D Qty: 1 RF: 0 Discontinued risperidone 3 mg tablet 1 tab PO BID RF: 0 metoprolol succinate 25 mg tablet extended release 24 hr 1 tab PO DAILY RF: 0 trazodone 50 mg tablet 50 mg PO BEDTIME PRN (Reason: sleep) Qty: 5 RF: 0 Discharge Orders: Discharge Order (Routine); Ordered 08/16/21 Ordered By: Maay Juárez Diet: regular diet Activity on Discharge: As tolerated Stand Alone Forms: Patient Portal Discharge page, Community Support Care Plan Goals: 1. Maintain mood 2. No SI/HI 3. No aggression towards self or others Health Concerns: 1. Follow up with PCP Plan of Treatment: 1. Take medications as prescribed 2. Go to nearest ED or call 911 in event of emergency. Assessment: Pt with less paranoia. Less labile. No SI/HI. No signs of aggression towards self or others. Discharge Date/Time: 08/16/21 11:57
[2021-08-16] MEDS: Divalproex Sodium 500 MG TABLET.DR PO (10:42)
== END 2021-08-16 11:57 | disposition home or self-care (01) | DRG 885 ==
LOC: HO.ED 06-19 19:18 → HO.PM5 06-20 13:39
PROVIDERS: Clinical Nurse Specialist Psychiatric/Mental Health; Psychiatry & Neurology Psychiatry; Admitting Provider Registered Nurse; Emergency Provider Emergency Medicine; PCP Family Medicine; Visit Provider Social Worker
DX: F20.0 Paranoid schizophrenia (principal); Z23 Encounter for immunization; N45.1 Epididymitis; Z20.822 Contact with and (suspected) exposure to COVID-19; Z91.14 Patient's other noncompliance with medication regimen; Z87.891 Personal history of nicotine dependence; Z79.899 Other long term (current) drug therapy
CPT/HCPCS: 36415; 80048; 80076; 80164; 80307; 81001; 81003; 82140; 83036; 85025; 87635; 90686; 93005; 99284; 99285; J2060

== ENCOUNTER 2021-12-21 02:57 | Emergency (ER) | payer MEDICARE, MEDICAID, SELFPAY ==
--- NOTE | ~2021-12-21 | XR_ITS ---
EXAMINATION: XR CHEST CLINICAL INFORMATION: Cough and shortness of breath COMPARISON: 06/09/2021 TECHNIQUE: Frontal view of the chest was obtained. FINDINGS: Normal symmetric lung volumes. Faint streaky opacity in the right midlung. Lungs otherwise clear. No pleural effusion. No pneumothorax. Cardiomediastinal silhouette and pulmonary vascularity are within normal limits. No acute osseous abnormalities. XR/XR chest 1V IMPRESSION: Streaky opacity in the right midlung may represent atelectasis or a small infiltrate.
[2021-12-21 03:16] VITALS: BP 107/95; PULSE 110; RESP 18; TEMP 37.1; O2SAT 96; BMI 37.5
[2021-12-21 03:47] LABS: COVID-19 Test Negative (Negative)
[2021-12-21 03:49] VITALS: BP 129/77; PULSE 106; RESP 16; TEMP 37.2; O2SAT 94
[2021-12-21] MEDS: Albuterol Sulfate 90 MCG 8 GM INHALER 4 PUFF INHALE (04:30)
--- NOTE | 2021-12-21 04:44 | ED.ASTHMA ---
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 He states that the vomiting than led to him coughing and becoming short of breath and he attempted to use his available albuterol inhaler but noted that it was out. This then led to him feeling very anxious and wanting to be further evaluated in the emergency room. Related Data Previous Rx's Medication Instructions Recorded benztropine 1 mg tablet 1 mg PO BEDTIME #30 tab 08/16/21 divalproex 500 mg tablet,extended 1,000 mg PO DAILY #60 tab 08/16/21 release 24 hr haloperidol decanoate 50 mg/mL 150 mg (3 mL) IM Q28D #1 ml 08/16/21 intramuscular solution Allergies Allergy/AdvReac Type Severity Reaction Status Date / Time No Known Allergies Allergy Verified 12/21/21 03:16 [No Known Allergies*] Review of Systems Review of Systems: Pertinent positives and negatives as stated in HPI 10 point review of systems is otherwise negative. [facility] Past Medical History Source: nursing notes reviewed Medical History Schizophrenia, paranoid, chronic with acute exacerbation Social History Social History Household Members: None Household Members Other:: 0 Housing: Apartment Do you presently have visiting nurse or other home services: No Unable to assess alcohol history related to: Refusing to respond Alcohol intake: current Alcohol intake frequency: a few times a month Patient Tobacco Use Status: Former Tobacco user Tobacco use type: Cigarette e-Cigarette/Vaping Use: Never Used Second Hand Smoke Exposure: Yes Substance Use Type: Marijuana Advance Directives: No service: No Sexual orientation: Did not discuss Physical Exam Vital Signs: Vital Signs: Last Vital Signs Temp 99.0 F 12/21/21 03:49 Pulse 106 H 12/21/21 03:49 Resp 16 12/21/21 03:49 BP 129/77 12/21/21 03:49 Pulse Ox 94 12/21/21 03:49 BMI result Body Mass Index 37.5 VITAL SIGNS: Reviewed. GENERAL: Well developed, well nourished, in no acute distress. HEAD: Normocephalic/atraumatic EYES: PERRLA, EOMI OROPHARYNX: no oral lesions noted, posterior pharynx clear LUNGS: Normal breath sounds, no expiratory wheezing, no tachypnea. SpO2<94> CARDIOVASCULAR: Regular rate and rhythm without noted murmurs, no JVD or lower extremity edema. ABDOMEN: Soft, non-tender, non-distended with bowel sounds. MUSCULOSKELETAL: No tenderness, deformities, or effusions noted on gross inspection. EXTREMITIES: No cyanosis, clubbing or edema. SKIN: Inspection of the skin reveals no rashes NEUROLOGIC: Alert and oriented x 4. Strength and sensation to light touch were grossly intact x 4. Course Course Course Narrative: 26-year-old male with history and clinical presentation suggestive of possible gastritis as patient states that his nausea and vomiting his past and he is noted to tolerate oral intake. In addition, patient was provided with 4 Ventolin puffs and on re-evaluation endorses feeling improved. Review of all investigations otherwise negative for acute findings and patient will be discharged home in stable condition. MDM - Asthma Lab Data Labs: Lab Results 12/21/21 Range/Units 03:26 COVID-19 ([facility]AR) Negative (Negative) COVID-19 Clin Com See Note Discharge Plan Discharge Clinical Impression: Schizophrenia, Asthma Patient Disposition: Home, Self-Care Instructions: Asthma (ED), Schizophrenia (ED) Additional Instructions: 1. Resume all home medications. 2. Follow-up with your primary care provider in the next 1-2 days. Return to the ER for worsening symptoms. Prescriptions: No Action benztropine 1 mg Tablet 1 mg PO BEDTIME Qty: 30 0RF divalproex 500 mg Tablet Extended Release 24 Hr 1,000 mg PO DAILY Qty: 60 0RF haloperidol decanoate 50 mg/mL Solution 150 mg IM Q28D Qty: 1 0RF Rx Instructions: Next dose on 09/08, last dose on 08/09 Print Language: British
[2021-12-21 05:24] VITALS: BP 138/78; PULSE 111; RESP 16; TEMP 36.4; O2SAT 96
== END 2021-12-21 05:29 | disposition home or self-care (01) ==
PROVIDERS: Emergency Provider Student in an Organized Health Care Education/Training Program
DX: J45.909 Unspecified asthma, uncomplicated (principal); F20.9 Schizophrenia, unspecified; Z20.822 Contact with and (suspected) exposure to COVID-19; R11.2 Nausea with vomiting, unspecified; F12.90 Cannabis use, unspecified, uncomplicated
CPT/HCPCS: 71045; 87635; 99284

== ENCOUNTER 2021-12-28 01:43 | Emergency (ER) | payer MEDICARE, MEDICAID, SELFPAY ==
[2021-12-28 05:49] LABS: Hematocrit 45.3 % (42.0-52.0); Hemoglobin 15.3 g/dl (14.0-18.0); Mean Corpuscular HGB Conc 33.8 g/dl (31.0-36.0); Mean Corpuscular Hemoglobin 29.3 pg (27.0-33.0); Mean Corpuscular Volume 86.8 fL (80.0-98.0); Mean Platelet Volume 10.1 fL (9.4-12.4); Platelet Count 315 X10*3/uL (160-400); Red Blood Count 5.22 X10*6/uL (4.60-5.80); Red Cell Distribution Width 12.1 % (11.0-16.0); White Blood Count 10.1 X10*3/uL (4.8-10.8)
[2021-12-28 06:26] LABS: Albumin Level 4.7 g/dL (3.5-5.0); Aspartate Amino Transferase 49 U/L (5-37); Blood Urea Nitrogen 8 mg/dL (9-16); Chloride 101 mmol/L (96-108); Estimated Glomerular Filt Rate > 60; Glucose Random 129 mg/dL (60-115); Lipase 76 U/L (8-78); Total Protein 7.9 g/dL (6.5-8.0)
[2021-12-28 06:40] LABS: Alanine Aminotransferase 96 U/L (0-40); Alkaline Phosphatase 98 U/L (39-117); Anion Gap 16 (12-20); Bilirubin Direct 0.2 mg/dL (0.0-0.5); Bilirubin Total 0.6 mg/dL (0.0-1.0); Carbon Dioxide 25 mmol/L (22-29); Potassium 3.8 mmol/L (3.3-5.1); Sodium 138 mmol/L (135-145)
== END 2021-12-28 05:18 | disposition home or self-care (01) ==
PROVIDERS: Emergency Provider Emergency Medicine
DX: R11.2 Nausea with vomiting, unspecified (principal); R68.83 Chills (without fever); F12.90 Cannabis use, unspecified, uncomplicated
CPT/HCPCS: 36415; 80048; 80076; 83690; 85027; 99283

== ENCOUNTER 2021-12-29 00:31 | Inpatient (IN) | payer MEDICARE, MEDICAID, SELFPAY ==
--- NOTE | ~2021-12-29 | XR_ITS ---
EXAMINATION: XR CHEST CLINICAL INFORMATION: Shortness of breath COMPARISON: 12/21/2021 TECHNIQUE: Frontal view of the chest was obtained. FINDINGS: The lungs are well expanded. There is no focal consolidation, edema, or effusion. No pneumothorax. The cardiomediastinal silhouette is within normal limits. No acute osseous abnormality. XR/XR chest 1V IMPRESSION: Clear lungs.
--- NOTE | 2021-12-29 00:34 | ECG_ITS ---
Test Reason : CHEST PAIN Blood Pressure : / mmHG Vent. Rate : 083 BPM Atrial Rate : 083 BPM P-R Int : 160 ms QRS Dur : 088 ms QT Int : 384 ms P-R-T Axes : 031 072 043 degrees QTc Int : 451 ms Normal sinus rhythm Normal ECG When compared with ECG of 02-JUL-2021 21:23, No significant change was found Referred By: Candice Martin Electronically Signed By:GRACIE WHITTINGTON
[2021-12-29 00:38] VITALS: BP 145/90; PULSE 103; RESP 18; TEMP 36.8; O2SAT 96; BMI 34.2
[2021-12-29 01:03] VITALS: BP 141/71; PULSE 97; RESP 18; TEMP 36.3; O2SAT 94
--- NOTE | 2021-12-29 01:24 | ED_ITS ---
HPI - Psych General Chief Complaint: Psychiatric Symptoms Stated Complaint: chest pain Time Seen by Provider: 12/29/21 01:19 History of Present Illness HPI Narrative: Patient is a 26-year-old male with a history of schizophrenia history of anxiety presents today with pacing. Paranoia. Patient claims he has no food at home. Patient denies any fever chills have some pain to the right lower chest wall. No diaphoresis. Patient from home. No history of diabetes, hypertension, high cholesterol, smoking, NE. Patient from home. Related Data Previous Rx's Medication Instructions Recorded benztropine 1 mg tablet 1 mg PO BEDTIME #30 tab 08/16/21 divalproex 500 mg tablet,extended 1,000 mg PO DAILY #60 tab 08/16/21 release 24 hr haloperidol decanoate 50 mg/mL 150 mg (3 mL) IM Q28D #1 ml 08/16/21 intramuscular solution Allergies Allergy/AdvReac Type Severity Reaction Status Date / Time No Known Allergies Allergy Verified 12/21/21 03:16 [No Known Allergies*] Review of Systems Review of Systems: No cough no congestion or upper respiratory symptoms no diaphoresis Yes all other systems are reviewed and are negative [facility] Past Medical History Attestation statement: The following information was validated with the patient. Medical History Schizophrenia, paranoid, chronic with acute exacerbation Social History Social History Household Members: None Household Members Other:: 0 Housing: Apartment Do you presently have visiting nurse or other home services: No Unable to assess alcohol history related to: Refusing to respond Alcohol intake: unknown Patient Tobacco Use Status: Former Tobacco user Tobacco use type: Cigarette Smoked in Last 30 Days: No e-Cigarette/Vaping Use: Never Used Second Hand Smoke Exposure: Yes Use of substances other than those prescribed or required for medical reasons: Yes Substance Use Type: Marijuana Substance Use Frequency: Daily Last Used Substance: Unknown Any prior treatment program specific to substance use: No Advance Directives: No service: No Sexual orientation: Did not discuss Physical Exam Vital Signs: Vital Signs: Last Vital Signs Temp 97.3 F 12/29/21 01:03 Pulse 97 12/29/21 01:03 Resp 18 12/29/21 01:03 BP 141/71 H 12/29/21 01:03 Pulse Ox 94 12/29/21 01:03 BMI result Body Mass Index 34.2 Appearance: Alert. Oriented X3. No acute distress. Eyes: Pupils equal, round and reactive to light. ENT: Pharynx normal. Neck: Normal inspection. Neck supple. No lymph nodes noted. No crepitus CVS: Normal heart rate and rhythm. Pulses normal. Normal S1 and S2 Respiratory: No respiratory distress. Breath sounds normal. No Wheezing. No rales Abdomen: Soft and nontender. No rigidity. No distention. good BS x4 Skin: Skin warm and dry. Normal skin color. Normal skin turgor. Extremities: No lower extremity edema. Neurovascular intact to all extremities. No Lacerations. No Rash Neuro: Oriented X 3. No motor deficit. No sensory deficit. Moving all extermities. No slurred speech MDM - Psych MDM Narrative Medical decision making narrative: Well-appearing no acute distress. Alcohol is negative. Tox screen positive for marijuana. Final disposition as per crisis. Medical Records Attestation: I reviewed the patient's medical records. Lab Data Attestation: I reviewed the patient's lab results. Result diagrams: 12/29/21 01:46 12/29/21 01:46 Labs: Lab Results 12/29/21 12/29/21 12/29/21 Range/Units 01:13 01:29 01:29 WBC (4.8-10.8) X10*3/uL RBC (4.60-5.80) X10*6/uL Hgb (14.0-18.0) g/dl Hct (42.0-52.0) % MCV (80.0-98.0) fL MCH (27.0-33.0) pg MCHC (31.0-36.0) g/dl RDW (11.0-16.0) % Plt Count (160-400) X10*3/uL MPV (9.4-12.4) fL Immature Gran % (Auto) (0.0-0.4) % Neut % (Auto) (45-73) % Lymph % (Auto) (20-40) % [place] % (Auto) (2-11) % Eos % (Auto) (0-4) % Baso % (Auto) (0-2) % Lymph # (Auto) (1.2-4.9) X10*3/uL [place] # (Auto) (0.1-1.2) X10*3/uL Eos # (Auto) (0.0-0.4) X10*3/uL Baso # (Auto) (0.0-0.2) X10*3/uL Abs Immat Gran (auto) (0.00-0.03) X10*3/uL Absolute Neuts (auto) (2.0-8.3) x10*3/uL Absolute Nucleated RBC (0.0-0.012) X10*3/uL Nucleated RBC % (auto) (0.0-0.2) /100WBC Sodium (135-145) mmol/L Potassium (3.3-5.1) mmol/L Chloride (96-108) mmol/L Carbon Dioxide (22-29) mmol/L Anion Gap (12-20) BUN (9-16) mg/dL Creatinine (0.5-1.4) mg/dL Estim Creat Clear Calc Estimated GFR Random Glucose (60-115) mg/dL Calcium (8.4-10.2) mg/dL Total Bilirubin (0.0-1.0) mg/dL Direct Bilirubin (0.0-0.5) mg/dL AST (5-37) U/L ALT (0-40) U/L Alkaline Phosphatase (39-117) U/L Troponin I High Sens (<3.5-35.0) ng/L Total Protein (6.5-8.0) g/dL Albumin (3.5-5.0) g/dL Lipase (8-78) U/L Urine Color YELLOW Urine Appearance CLEAR Urine pH 5.5 (5.0-8.0) Ur Specific [place] >= 1.030 H (1.005-1.025) Urine Protein NEG (NEG-TRACE) MG/DL Urine Glucose (UA) NEG (NEG) MG/DL Urine Ketones NEG (NEG) MG/DL Urine Blood 1+ H (NEG) Urine Nitrite NEG (NEG) Ur Leukocyte Esterase TRACE H (NEG) Urine RBC 0-2 (0) /HPF Urine WBC 10-14 H (0-4) /HPF Ur Squamous Epith Cells NONE /LPF Urine Bacteria TRACE /LPF Salicylates (15-30) mg/dL Urine Opiates Screen Not Detected (Not Detect) Urine Fentanyl Screen Not Detected (Not Detect) Acetaminophen (<30) mcg/mL Ur Barbiturates Screen Not Detected (Not Detect) Valproic Acid (50.0-100.0) mcg/mL Ur Phencyclidine Scrn Not Detected (Not Detect) Ur Amphetamines Screen Not Detected (Not Detect) U Benzodiazepines Scrn Not Detected (Not Detect) Urine Cocaine Screen Not Detected (Not Detect) U Marijuana (THC) Screen POSITIVE H (Not Detect) Ethyl Alcohol mg/dL COVID-19 (TUSHAR) Negative (Negative) COVID-19 Clin Com See Note 12/29/21 12/29/21 12/29/21 Range/Units 01:46 01:46 01:46 WBC 9.8 (4.8-10.8) X10*3/uL RBC 5.44 (4.60-5.80) X10*6/uL Hgb 15.9 (14.0-18.0) g/dl Hct 46.2 (42.0-52.0) % MCV 84.9 (80.0-98.0) fL MCH 29.2 (27.0-33.0) pg MCHC 34.4 (31.0-36.0) g/dl RDW 12.2 (11.0-16.0) % Plt Count 323 (160-400) X10*3/uL MPV 10.0 (9.4-12.4) fL Immature Gran % (Auto) 0.3 (0.0-0.4) % Neut % (Auto) 50.7 (45-73) % Lymph % (Auto) 41.4 H (20-40) % [place] % (Auto) 5.7 (2-11) % Eos % (Auto) 1.4 (0-4) % Baso % (Auto) 0.5 (0-2) % Lymph # (Auto) 4.1 (1.2-4.9) X10*3/uL [place] # (Auto) 0.6 (0.1-1.2) X10*3/uL Eos # (Auto) 0.1 (0.0-0.4) X10*3/uL Baso # (Auto) 0.1 (0.0-0.2) X10*3/uL Abs Immat Gran (auto) 0.03 (0.00-0.03) X10*3/uL Absolute Neuts (auto) 5.0 (2.0-8.3) x10*3/uL Absolute Nucleated RBC 0.000 (0.0-0.012) X10*3/uL Nucleated RBC % (auto) 0.0 (0.0-0.2) /100WBC Sodium 140 (135-145) mmol/L Potassium 3.8 (3.3-5.1) mmol/L Chloride 102 (96-108) mmol/L Carbon Dioxide 28 (22-29) mmol/L Anion Gap 14 (12-20) BUN 8 L (9-16) mg/dL Creatinine 0.81 (0.5-1.4) mg/dL Estim Creat Clear Calc 157.2 Estimated GFR > 60 Random Glucose 93 (60-115) mg/dL Calcium 10.3 H (8.4-10.2) mg/dL Total Bilirubin 0.7 (0.0-1.0) mg/dL Direct Bilirubin 0.3 (0.0-0.5) mg/dL AST 46 H (5-37) U/L ALT 91 H (0-40) U/L Alkaline Phosphatase 101 (39-117) U/L Troponin I High Sens (<3.5-35.0) ng/L Total Protein 8.2 H (6.5-8.0) g/dL Albumin 4.9 (3.5-5.0) g/dL Lipase 91 H (8-78) U/L Urine Color Urine Appearance Urine pH (5.0-8.0) Ur Specific [place] (1.005-1.025) Urine Protein (NEG-TRACE) MG/DL Urine Glucose (UA) (NEG) MG/DL Urine Ketones (NEG) MG/DL Urine Blood (NEG) Urine Nitrite (NEG) Ur Leukocyte Esterase (NEG) Urine RBC (0) /HPF Urine WBC (0-4) /HPF Ur Squamous Epith Cells /LPF Urine Bacteria /LPF Salicylates < 5.0 L (15-30) mg/dL Urine Opiates Screen (Not Detect) Urine Fentanyl Screen (Not Detect) Acetaminophen < 1 (<30) mcg/mL Ur Barbiturates Screen (Not Detect) Valproic Acid (50.0-100.0) mcg/mL Ur Phencyclidine Scrn (Not Detect) Ur Amphetamines Screen (Not Detect) U Benzodiazepines Scrn (Not Detect) Urine Cocaine Screen (Not Detect) U Marijuana (THC) Screen (Not Detect) Ethyl Alcohol < 10 mg/dL COVID-19 (TUSHAR) (Negative) COVID-19 Clin Com 12/29/21 12/29/21 Range/Units 01:46 01:46 WBC (4.8-10.8) X10*3/uL RBC (4.60-5.80) X10*6/uL Hgb (14.0-18.0) g/dl Hct (42.0-52.0) % MCV (80.0-98.0) fL MCH (27.0-33.0) pg MCHC (31.0-36.0) g/dl RDW (11.0-16.0) % Plt Count (160-400) X10*3/uL MPV (9.4-12.4) fL Immature Gran % (Auto) (0.0-0.4) % Neut % (Auto) (45-73) % Lymph % (Auto) (20-40) % [place] % (Auto) (2-11) % Eos % (Auto) (0-4) % Baso % (Auto) (0-2) % Lymph # (Auto) (1.2-4.9) X10*3/uL [place] # (Auto) (0.1-1.2) X10*3/uL Eos # (Auto) (0.0-0.4) X10*3/uL Baso # (Auto) (0.0-0.2) X10*3/uL Abs Immat Gran (auto) (0.00-0.03) X10*3/uL Absolute Neuts (auto) (2.0-8.3) x10*3/uL Absolute Nucleated RBC (0.0-0.012) X10*3/uL Nucleated RBC % (auto) (0.0-0.2) /100WBC Sodium (135-145) mmol/L Potassium (3.3-5.1) mmol/L Chloride (96-108) mmol/L Carbon Dioxide (22-29) mmol/L Anion Gap (12-20) BUN (9-16) mg/dL Creatinine (0.5-1.4) mg/dL Estim Creat Clear Calc Estimated GFR Random Glucose (60-115) mg/dL Calcium (8.4-10.2) mg/dL Total Bilirubin (0.0-1.0) mg/dL Direct Bilirubin (0.0-0.5) mg/dL AST (5-37) U/L ALT (0-40) U/L Alkaline Phosphatase (39-117) U/L Troponin I High Sens < 3.5 (<3.5-35.0) ng/L Total Protein (6.5-8.0) g/dL Albumin (3.5-5.0) g/dL Lipase (8-78) U/L Urine Color Urine Appearance Urine pH (5.0-8.0) Ur Specific [place] (1.005-1.025) Urine Protein (NEG-TRACE) MG/DL Urine Glucose (UA) (NEG) MG/DL Urine Ketones (NEG) MG/DL Urine Blood (NEG) Urine Nitrite (NEG) Ur Leukocyte Esterase (NEG) Urine RBC (0) /HPF Urine WBC (0-4) /HPF Ur Squamous Epith Cells /LPF Urine Bacteria /LPF Salicylates (15-30) mg/dL Urine Opiates Screen (Not Detect) Urine Fentanyl Screen (Not Detect) Acetaminophen (<30) mcg/mL Ur Barbiturates Screen (Not Detect) Valproic Acid < 2.0 L (50.0-100.0) mcg/mL Ur Phencyclidine Scrn (Not Detect) Ur Amphetamines Screen (Not Detect) U Benzodiazepines Scrn (Not Detect) Urine Cocaine Screen (Not Detect) U Marijuana (THC) Screen (Not Detect) Ethyl Alcohol mg/dL COVID-19 (TUSHAR) (Negative) COVID-19 Clin Com Discharge Plan Discharge Clinical Impression: Anxiety Prescriptions: No Action benztropine 1 mg Tablet 1 mg PO BEDTIME Qty: 30 0RF divalproex 500 mg Tablet Extended Release 24 Hr 1,000 mg PO DAILY Qty: 60 0RF haloperidol decanoate 50 mg/mL Solution 150 mg IM Q28D Qty: 1 0RF Rx Instructions: Next dose on 09/08, last dose on 08/09
[2021-12-29 01:37] LABS: Appearance Urine CLEAR; Color Urine YELLOW; Glucose Urine UA NEG (NEG); Leukocyte Esterase Urine TRACE (NEG); Nitrite Urine NEG (NEG); PH 5.5 (5.0-8.0); Specific Gravity - Urine >= 1.030 (1.005-1.025); Urine Blood 1+ (NEG); Urine Ketones NEG (NEG); Urine Protein NEG (NEG-TRACE)
[2021-12-29 01:40] LABS: COVID-19 Test Negative (Negative)
[2021-12-29] MEDS: LORazepam 1 MG TABLET PO (01:42)
[2021-12-29 01:46] LABS: Bacteria Urine TRACE /LPF; RBC Urine 0-2 /HPF (0)
--- NOTE | 2021-12-29 01:51 | PC.ADMIT ---
PT admitted from ED triage, PT C/O chest/flank pain, EKG done, MD notified. PT VS T97.3, BP 141/71, P97, O2 94%/RA. PT acting disorganized and paranoid, anxious, depressed, PT hungry, ate 2 sandwiches. PT calm and cooperative, med compliant.
[2021-12-29 01:52] LABS: Basophils Absolute Auto 0.1 X10*3/uL (0.0-0.2); Basophils Percent Auto 0.5 % (0-2); Eosinophils Absolute Auto 0.1 X10*3/uL (0.0-0.4); Eosinophils Percent Auto 1.4 % (0-4); Hematocrit 46.2 % (42.0-52.0); Hemoglobin 15.9 g/dl (14.0-18.0); Imm Gran Abs Auto 0.03 X10*3/uL (0.00-0.03); Imm Gran Pct Auto 0.3 % (0.0-0.4); Lymphocytes Absolute Auto 4.1 X10*3/uL (1.2-4.9); Lymphocytes Percent Auto 41.4 % (20-40); MANUAL DIFF FLAG NO; Mean Corpuscular HGB Conc 34.4 g/dl (31.0-36.0); Mean Corpuscular Hemoglobin 29.2 pg (27.0-33.0); Mean Corpuscular Volume 84.9 fL (80.0-98.0); Monocytes Absolute Auto 0.6 X10*3/uL (0.1-1.2); Monocytes Percent Auto 5.7 % (2-11); Neutrophils Percent Auto 50.7 % (45-73); Platelet Count 323 X10*3/uL (160-400); Red Blood Count 5.44 X10*6/uL (4.60-5.80); Red Cell Distribution Width 12.2 % (11.0-16.0); White Blood Count 9.8 X10*3/uL (4.8-10.8)
[2021-12-29 01:57] LABS: Amphetamine Screen Urine Not Detected (Not Detect); Barbiturates, Urine Not Detected (Not Detect); Benzodiazepines Screen Urine Not Detected (Not Detect); Cannabinoid Screen Urine POSITIVE (Not Detect); Cocaine Screen Urine Not Detected (Not Detect); Fentanyl, urine Not Detected (Not Detect); Opiate Screen Urine Not Detected (Not Detect); Phencyclidine Screen Urine Not Detected (Not Detect)
[2021-12-29 02:08] LABS: Ethanol < 10 mg/dL
[2021-12-29 02:16] LABS: Alanine Aminotransferase 91 U/L (0-40); Albumin Level 4.9 g/dL (3.5-5.0); Alkaline Phosphatase 101 U/L (39-117); Anion Gap 14 (12-20); Aspartate Amino Transferase 46 U/L (5-37); Bilirubin Direct 0.3 mg/dL (0.0-0.5); Bilirubin Total 0.7 mg/dL (0.0-1.0); Blood Urea Nitrogen 8 mg/dL (9-16); Calcium 10.3 mg/dL (8.4-10.2); Carbon Dioxide 28 mmol/L (22-29); Chloride 102 mmol/L (96-108); Creatinine Clr Calc Pharmacy 157.2; Estimated Glomerular Filt Rate > 60; Glucose Random 93 mg/dL (60-115); Lipase 91 U/L (8-78); Potassium 3.8 mmol/L (3.3-5.1); Sodium 140 mmol/L (135-145); Total Protein 8.2 g/dL (6.5-8.0)
[2021-12-29 02:17] LABS: Troponin-I High Sensitivity < 3.5 ng/L (<3.5-35.0)
[2021-12-29 03:03] LABS: Acetaminophen LAB < 1 mcg/mL (<30); Salicylate < 5.0 mg/dL (15-30)
[2021-12-29 03:38] LABS: Valproate < 2.0 mcg/mL (50.0-100.0)
--- NOTE | 2021-12-29 06:43 | PC.NURSE ---
PT appeared to be asleep on safety checks, PT calm and cooperative when awake. PRN ativan given at 0142 for anxiety, with positive effects.
[2021-12-29 08:45] VITALS: BP 136/73; PULSE 109; RESP 12; TEMP 36.6; O2SAT 96
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
--- NOTE | 2021-12-29 11:21 | PC.NURSE ---
Patient seen by N, will be referred to inpatient unit.
--- NOTE | 2021-12-29 12:10 | PC.NURSE ---
Patient resting, resp unlabored
--- NOTE | 2021-12-29 18:09 | PC.NURSE ---
PATIENT RESTING COMFORTABLY IN BED AWARE OF PLAN TO BE AN INPATIENT BED SEARCH.
[2021-12-29 23:08] VITALS: BP 102/79; PULSE 91; RESP 18; TEMP 36.4; O2SAT 97
[2021-12-30 00:30] VITALS: BP 134/84; PULSE 86; RESP 18; TEMP 36.2; O2SAT 97
--- NOTE | 2021-12-30 01:42 | PC.ADMIT ---
PT is 26 year old single male, Amharic speaking [place] [facility] [place] PT is known to for prior admission. PT presented himself to [facility] for disorganized thoughts and paranoi, saying he does not have food in his apartment. PT reports being off his meds since August 2021. PT has diagnose of unspecified schizophrenia spectrum and other psychotic d/o.PT put on 15 minute safety checks for safety. PT has medical history of asthma. PT reports recent weight loss unsure of how much.PT calm and cooperative during admission process. PT unable to answer some questions and PT having fragmented thoughts, difficult to understand at times. PT declined prn medications, PT unable to sleep, pacing in hallway at this time.
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
[2021-12-30 09:00] VITALS: BP 131/70; PULSE 77; RESP 16; TEMP 36.7; O2SAT 95
[2021-12-30 18:47] LABS: Alanine Aminotransferase 83 U/L (0-40); Albumin Level 4.7 g/dL (3.5-5.0); Alkaline Phosphatase 98 U/L (39-117); Anion Gap 12 (12-20); Aspartate Amino Transferase 39 U/L (5-37); Bilirubin Total 0.4 mg/dL (0.0-1.0); Blood Urea Nitrogen 10 mg/dL (9-16); Calcium 10.5 mg/dL (8.4-10.2); Carbon Dioxide 29 mmol/L (22-29); Chloride 103 mmol/L (96-108); Cholesterol 185 mg/dL; Creatinine Clr Calc Pharmacy 161.1; Estimated Glomerular Filt Rate > 60; Glucose Fasting 72 mg/dL (60-99); HDL Cholesterol 34 mg/dL; LDL Cholesterol Calculated 98 mg/dl; Potassium 4.2 mmol/L (3.3-5.1); Sodium 140 mmol/L (135-145); Triglycerides 269 mg/dL; Valproate < 2.0 mcg/mL (50.0-100.0)
[2021-12-30 20:00] VITALS: BP 136/73; PULSE 95; TEMP 36.6; O2SAT 95
[2021-12-31 02:03] VITALS: BP 134/84; PULSE 99
--- NOTE | 2021-12-31 09:03 | HO.PSYCHPN ---
Subjective Subjective Date of Service: 12/31/21 Reason For Visit: F29.9 Unspecified Schizophrenia Subjective Notes: Conditional Voluntary Medical Problems Affecting Mental Status: No Interim History: Patient was seen and discussed in rounds today. He has settled and. He is very isolative. No behavioral issues. Very little interaction with others. Laboratory studies were reviewed. He does have some elevation of his liver enzymes. He refused to take the ordered Risperdal. I had a talk with him today and encouraged to take it and discussed the possible benefits not on hoping for him to gain from it. We will keep trying to encourage him to be medication compliant. No changes were made today Medication Compliance: No Review of Systems Review of Systems Yes all other systems are reviewed and are negative Mental Status Exam Mental Status Exam Narrative: Nura was seen the morning after his admission he needs a lot of encouragement to sit down with me. He is alert, oriented. Speech is very hard to understand and this was made even more difficult because of his mask. Moderate eye contact. Affect is appropriate, constricted and subdued. He appears to be possibly responding to internal stimuli. He admits to auditory hallucinations which are not command in nature. No visual hallucinations. He does appear guarded and suspicious. No overt delusions. Cognitively he has disorganized thought processes. He is tangential and not spontaneous all. Judgment is marginal. Insight is minimal Diagnostics Vital Signs (24Hr): Vital Signs - 24 hr 12/30/21 20:00 12/31/21 02:03 Temperature 97.8 F Pulse Rate 95 99 Blood Pressure 136/73 134/84 Pulse Oximetry 95 BMI result Body Mass Index 34.2 Labs Results: 12/29/21 01:46 12/30/21 18:16 Labs: Laboratory Results - last 48 hr 12/30/21 18:16 Sodium 140 Potassium 4.2 Chloride 103 Carbon Dioxide 29 Anion Gap 12 BUN 10 Creatinine 0.79 Estim Creat Clear Calc 161.1 Estimated GFR > 60 Fasting Glucose 72 Calcium 10.5 H Total Bilirubin 0.4 AST 39 H ALT 83 H Alkaline Phosphatase 98 Total Protein 8.0 Albumin 4.7 Triglycerides 269 Cholesterol 185 LDL Cholesterol, Calc 98 HDL Cholesterol 34 Valproic Acid < 2.0 L Imaging Radiology Impressions: ITS Impressions Chest X-Ray 12/29/21 01:30 IMPRESSION: Clear lungs. Medications Medications Current Medications Acetaminophen (Acetaminophen 325 Mg Tablet) 650 mg PO Q6H PRN PRN Reason: Headache/Pain Mild Scale (1-3) Al Hydroxide/Mg Hydroxide (Magnesium Hydrox/Alum Hydrox 30 Ml Oral.Susp) 30 ml PO Q6H PRN PRN Reason: Heartburn/Nausea Clonazepam (Clonazepam 0.5 Mg Tablet) 0.5 mg PO BID PRN PRN Reason: anxiety/restlessness Hydroxyzine HCl (Hydroxyzine Hcl 25 Mg Tablet) 25 mg PO BEDTIME PRN PRN Reason: Anxiety Magnesium Hydroxide (Milk Of Magnesia 30 Ml Oral.Susp) 30 ml PO DAILY PRN PRN Reason: Constipation Risperidone (Risperidone 0.5 Mg Tablet) 0.5 mg PO Q4H PRN PRN Reason: Psychosis Risperidone (Risperidone 3 Mg Tablet) 3 mg PO BEDTIME JOE Last Admin: 12/30/21 22:30 Dose: Not Given Documented by: Trazodone HCl (Trazodone Hcl 50 Mg Tablet) 50 mg PO BEDTIME PRN PRN Reason: Insomnia Allergies Allergies Allergy/AdvReac Type Severity Reaction Status Date / Time No Known Allergies Allergy Verified 12/21/21 03:16 [No Known Allergies*] Assessment & Plan Assessment & Plan (1) Schizophrenia, paranoid, chronic with acute exacerbation: Status: Acute Code(s): F20.0 - Paranoid schizophrenia Plan Nura is admitted for treatment and stabilization. When asked about his willingness to take medication he is noncommittal but he was not overtly refusing. I will initiate with Risperdal 3 mg at night. Side effects reviewed. Admission workup to be done. He will meet with his treatment team on 01/01/22. 12/31: Continue current regimen and plans. Encouraged to start taking the Risperdal which he is reluctant to do I spent minutes with the patient and/or on the patient floor today, greater than?50% of which was spent counseling/coordinating care. Reason for contiued inpatient stay Substantial Risk for: med/psych decompensation
[2021-12-31 15:52] VITALS: BP 134/80; PULSE 94; RESP 18; O2SAT 96
[2021-12-31 18:00] VITALS: BP 134/75; PULSE 97; RESP 16; TEMP 37; O2SAT 97
[2022-01-01 12:30] VITALS: BP 112/76; PULSE 95; RESP 17; TEMP 36.2; O2SAT 96
--- NOTE | 2022-01-01 14:29 | HO.PSYCHPN ---
Subjective Subjective Date of Service: 01/01/22 Reason For Visit: F29.9 Unspecified Schizophrenia Interim History: pt found lying in bed in his room midday. either awake or very readily rousable. declines to come with MD to interview room. opts to keep his door propped open for the interview. states he came to the hospital because my mind is stuck. he described feeling lonely and alone at his apartment and felt being around other people would be helpful. MD educates him about his medications regimen - the haldol and VPA he used to be on - and how that would help get his mind unstuck (pt has declined the offered risperidone for the past 2 nights). pt ultimately agrees to take the medication (this was received with caution as pt has apparently been saying that to Dr. Childress and then failing to take the medication at HS. per staff, pt slept 4 hours overnight. 3-day matures 01/03. slept most of the day yesterday. flat affect, no eye contact. denying all Sx. Mental Status Exam Mental Status Exam Narrative: lying in bed in hospital attire. cooperative. few spontaneous movements. speech decr amount, rate. tone flattened. incr latency. thoughts illogical and somewhat disorganized. affect blunted, poor eye contact. no SI/HI/AVH expressed. Diagnostics Vital Signs (24Hr): Vital Signs - 24 hr 12/31/21 15:52 12/31/21 18:00 01/01/22 12:30 Temperature 98.6 F 97.2 F Pulse Rate 94 97 95 Respiratory Rate 18 16 17 Blood Pressure 134/80 134/75 112/76 Pulse Oximetry 96 97 96 BMI result Body Mass Index 34.2 Labs Results: 12/29/21 01:46 12/30/21 18:16 Labs: Laboratory Results - last 48 hr 12/30/21 18:16 Sodium 140 Potassium 4.2 Chloride 103 Carbon Dioxide 29 Anion Gap 12 BUN 10 Creatinine 0.79 Estim Creat Clear Calc 161.1 Estimated GFR > 60 Fasting Glucose 72 Calcium 10.5 H Total Bilirubin 0.4 AST 39 H ALT 83 H Alkaline Phosphatase 98 Total Protein 8.0 Albumin 4.7 Triglycerides 269 Cholesterol 185 LDL Cholesterol, Calc 98 HDL Cholesterol 34 Valproic Acid < 2.0 L Imaging Radiology Impressions: ITS Impressions Chest X-Ray 12/29/21 01:30 IMPRESSION: Clear lungs. Medications Medications Current Medications Acetaminophen (Acetaminophen 325 Mg Tablet) 650 mg PO Q6H PRN PRN Reason: Headache/Pain Mild Scale (1-3) Al Hydroxide/Mg Hydroxide (Magnesium Hydrox/Alum Hydrox 30 Ml Oral.Susp) 30 ml PO Q6H PRN PRN Reason: Heartburn/Nausea Clonazepam (Clonazepam 0.5 Mg Tablet) 0.5 mg PO BID PRN PRN Reason: anxiety/restlessness Hydroxyzine HCl (Hydroxyzine Hcl 25 Mg Tablet) 25 mg PO BEDTIME PRN PRN Reason: Anxiety Magnesium Hydroxide (Milk Of Magnesia 30 Ml Oral.Susp) 30 ml PO DAILY PRN PRN Reason: Constipation Risperidone (Risperidone 0.5 Mg Tablet) 0.5 mg PO Q4H PRN PRN Reason: Psychosis Risperidone (Risperidone 3 Mg Tablet) 3 mg PO BEDTIME JOE Last Admin: 12/31/21 21:49 Dose: Not Given Documented by: Trazodone HCl (Trazodone Hcl 50 Mg Tablet) 50 mg PO BEDTIME PRN PRN Reason: Insomnia Allergies Allergies Allergy/AdvReac Type Severity Reaction Status Date / Time No Known Allergies Allergy Verified 12/21/21 03:16 [No Known Allergies*] Assessment & Plan Assessment & Plan (1) Schizophrenia, paranoid, chronic with acute exacerbation: Status: Acute Code(s): F20.0 - Paranoid schizophrenia Plan Nura is admitted for treatment and stabilization. When asked about his willingness to take medication he is noncommittal but he was not overtly refusing. I will initiate with Risperdal 3 mg at night. Side effects reviewed. Admission workup to be done. He will meet with his treatment team on 01/01/22. 12/31: Continue current regimen and plans. Encouraged to start taking the Risperdal which he is reluctant to do 01/01: change regimen to I spent minutes with the patient and/or on the patient floor today, greater than?50% of which was spent counseling/coordinating care. Reason for contiued inpatient stay Substantial Risk for: inability to function
[2022-01-01 18:00] VITALS: BP 132/90; PULSE 108; RESP 18; TEMP 36.7; O2SAT 98
[2022-01-01] MEDS: Divalproex Sodium ER 500 MG TAB.ER.24H 1500 MG PO (20:09)
[2022-01-02 08:45] VITALS: BP 125/60; PULSE 89; RESP 16; TEMP 36.8; O2SAT 96
--- NOTE | 2022-01-02 11:22 | P.PNPSI_ITS ---
Subjective Subjective Date of Service: 01/02/22 Reason For Visit: F29.9 Unspecified Schizophrenia Interim History: pt seen in his room. he was lying in bed, perhaps asleep, easily rousable. somewhat irritable. MD attempted to convince him to take more VPA than just 500 but he stated he would only take one pill because more than that makes his nauseated. he declined to take haldol, saying he feels fine. no other questions or complaints. per staff, 3-day due 01/04. slept 4 hours overnight. isolative, napping. visible for brief periods during the day. eating well. took 500 of VPA only last night. refused haldol and cogentin. pacing halls last night appearing somewhat agitated. per RN emmy this morning, pt up and agiated after being seen by , asking for VPA 500 now, which is given. Mental Status Exam Mental Status Exam Narrative: lying in bed in hospital attire. cooperative. few spontaneous movements. speech decr amount, rate. tone flattened. incr latency. thoughts illogical and somewhat disorganized. affect blunted, poor eye contact. no SI/HI/AVH exp ressed. Diagnostics Vital Signs (24Hr): Vital Signs - 24 hr 01/01/22 12:30 01/01/22 18:00 01/02/22 08:45 Temperature 97.2 F 98.1 F 98.2 F Pulse Rate 95 108 H 89 Respiratory Rate 17 18 16 Blood Pressure 112/76 132/90 H 125/60 Pulse Oximetry 96 98 96 BMI result Body Mass Index 34.2 Labs Results: 12/29/21 01:46 12/30/21 18:16 Imaging Radiology Impressions: ITS Impressions Chest X-Ray 12/29/21 01:30 IMPRESSION: Clear lungs. Medications Medications Current Medications Acetaminophen (Acetaminophen 325 Mg Tablet) 650 mg PO Q6H PRN PRN Reason: Headache/Pain Mild Scale (1-3) Al Hydroxide/Mg Hydroxide (Magnesium Hydrox/Alum Hydrox 30 Ml Oral.Susp) 30 ml PO Q6H PRN PRN Reason: Heartburn/Nausea Benztropine Mesylate (Benztropine Mesylate 1 Mg Tablet) 1 mg PO BEDTIME JOE Last Admin: 01/01/22 20:14 Dose: Not Given Documented by: Clonazepam (Clonazepam 0.5 Mg Tablet) 0.5 mg PO BID PRN PRN Reason: anxiety/restlessness Divalproex Sodium (Divalproex Sodium Er 500 Mg Tab.Er.24h) 500 mg PO TID JOE Haloperidol (Haloperidol 5 Mg Tablet) 10 mg PO BEDTIME JOE Last Admin: 01/01/22 20:15 Dose: Not Given Documented by: Hydroxyzine HCl (Hydroxyzine Hcl 25 Mg Tablet) 25 mg PO BEDTIME PRN PRN Reason: Anxiety Magnesium Hydroxide (Milk Of Magnesia 30 Ml Oral.Susp) 30 ml PO DAILY PRN PRN Reason: Constipation Trazodone HCl (Trazodone Hcl 50 Mg Tablet) 50 mg PO BEDTIME PRN PRN Reason: Insomnia Allergies Allergies Allergy/AdvReac Type Severity Reaction Status Date / Time No Known Allergies Allergy Verified 12/21/21 03:16 [No Known Allergies*] Assessment & Plan Assessment & Plan (1) Schizophrenia, paranoid, chronic with acute exacerbation: Status: Acute Code(s): F20.0 - Paranoid schizophrenia Plan Nura is admitted for treatment and stabilization. When asked about his willingness to take medication he is noncommittal but he was not overtly refusing. I will initiate with Risperdal 3 mg at night. Side effects reviewed. Admission workup to be done. He will meet with his treatment team on 01/01/22. 12/31: Continue current regimen and plans. Encouraged to start taking the Risperdal which he is reluctant to do 01/01: change regimen to VPA 1500 at HS and haldol 10 @ HS and cogentin 1 @ HS, the same regimen he was last discharged on. 01/02: pt only took VPA 500 last night, will only take 1 pill. change orders to VPA 500 TID and haldol/cogentin 5/0.5 BID. I spent ___25___ minutes with the patient and/or on the patient floor today, greater than?50% of which was spent counseling/coordinating care. Patient educated on: medication risk/benefits Reason for contiued inpatient stay Substantial Risk for: inability to function and rapid decompensation
[2022-01-02] MEDS: Divalproex Sodium ER 500 MG TAB.ER.24H PO ×2 (11:24→23:22)
[2022-01-02 18:00] VITALS: BP 148/84; PULSE 112; RESP 18; O2SAT 96
[2022-01-03 08:15] VITALS: BP 113/61; PULSE 85; RESP 16; TEMP 36.9; O2SAT 96
--- NOTE | 2022-01-03 17:25 | P.PNPSI_ITS ---
Subjective Subjective Date of Service: 01/03/22 Reason For Visit: F29.9 Unspecified Schizophrenia Interim History: Patient seen and discussed with team. Patient evaluated this today and upon interview he reports I feel normal. I feel okay. He has only been taking the depakote at 500 mg daily. Discussed that depakote is ordered 500 mg TID and he has haldol ordered, however he says I d ont wanna try those, they make me nauseous. Sleep is fine. Says he feels safe. Will shower after interview. Has not been attending groups, sleeping in the day and up late at night. I asked about AH, pt states I dont know. Denies paranoia. Energy is low. Per RN, pt presents as paranoid regarding medication and lab work.? In the milieu, patient is safe but isolative in behavior. Denies SI/SIB/HI upon inquiry. Denies irritability or assaultive ideation. Says he feels safe. Medication Compliance: Intermittent Side effects from medications: No Attending Groups: No Review of Systems Acute medical concerns: No Medical Review of Systems: unchanged Mental Status Exam Mental Status Exam Narrative: lying in bed in hospital attire.? cooperative. ? few spontaneous movements.? speech decr amount, rate.? tone flattened.? incr latency.? thoughts illogical and somewhat disorganized, paranoid in content.? affect blunted, poor eye contact. tired.? no SI/HI/AVH expressed. Diagnostics Vital Signs (24Hr): Vital Signs - 24 hr 01/02/22 18:00 01/03/22 08:15 Temperature 98.5 F Pulse Rate 112 H 85 Respiratory Rate 18 16 Blood Pressure 148/84 H 113/61 Pulse Oximetry 96 96 BMI result Body Mass Index 34.2 Labs Results: 12/29/21 01:46 12/30/21 18:16 Imaging Radiology Impressions: ITS Impressions Chest X-Ray 12/29/21 01:30 IMPRESSION: Clear lungs. Medications Medications Current Medications Acetaminophen (Acetaminophen 325 Mg Tablet) 650 mg PO Q6H PRN PRN Reason: Headache/Pain Mild Scale (1-3) Al Hydroxide/Mg Hydroxide (Magnesium Hydrox/Alum Hydrox 30 Ml Oral.Susp) 30 ml PO Q6H PRN PRN Reason: Heartburn/Nausea Benztropine Mesylate (Benztropine Mesylate 0.5 Mg Tablet) 0.5 mg PO BID [facility] Last Admin: 01/03/22 10:13 Dose: Not Given Documented by: Clonazepam (Clonazepam 0.5 Mg Tablet) 0.5 mg PO BID PRN PRN Reason: anxiety/restlessness Divalproex Sodium (Divalproex Sodium Er 500 Mg Tab.Er.24h) 500 mg PO TID [facility] Last Admin: 01/03/22 16:04 Dose: Not Given Documented by: Haloperidol (Haloperidol 5 Mg Tablet) 5 mg PO BID [facility] Last Admin: 01/03/22 10:14 Dose: Not Given Documented by: Hydroxyzine HCl (Hydroxyzine Hcl 25 Mg Tablet) 25 mg PO BEDTIME PRN PRN Reason: Anxiety Magnesium Hydroxide (Milk Of Magnesia 30 Ml Oral.Susp) 30 ml PO DAILY PRN PRN Reason: Constipation Trazodone HCl (Trazodone Hcl 50 Mg Tablet) 50 mg PO BEDTIME PRN PRN Reason: Insomnia Allergies Allergies Allergy/AdvReac Type Severity Reaction Status Date / Time No Known Allergies Allergy Verified 12/21/21 03:16 [No Known Allergies*] Assessment & Plan Assessment & Plan (1) Schizophrenia, paranoid, chronic with acute exacerbation: Status: Acute Code(s): F20.0 - Paranoid schizophrenia Plan Nura is admitted for treatment and stabilization. When asked about his willingness to take medication he is noncommittal but he was not overtly refusing. I will initiate with Risperdal 3 mg at night. Side effects reviewed. Admission workup to be done. He will meet with his treatment team on 01/01/22. 12/31: Continue current regimen and plans. Encouraged to start taking the Risperdal which he is reluctant to do 01/01: change regimen to VPA 1500 at HS and haldol 10 @ HS and cogentin 1 @ HS, the same regimen he was last discharged on. 01/02: pt only took VPA 500 last night, will only take 1 pill. change orders to VPA 500 TID and haldol/cogentin 5/0.5 BID. 01/03: continues to take VPA 500 mg daily. Remains isolative and paranoid. I spent minutes with the patient and/or on the patient floor today, greater than?50% of which was spent counseling/coordinating care. Patient educated on: diagnosis and medication risk/benefits Reason for contiued inpatient stay Substantial Risk for: inability to function, rapid decompensation and med/psych decompensation
[2022-01-03 20:10] VITALS: BP 112/69; PULSE 95; RESP 18; O2SAT 100
[2022-01-04] MEDS: Divalproex Sodium ER 500 MG TAB.ER.24H PO (01:03)
[2022-01-04] MEDS: HaloperidoL 5 MG TABLET PO (01:23)
[2022-01-04] MEDS: hydrOXYzine HCL 25 MG TABLET PO (05:06)
[2022-01-04 07:00] VITALS: BMI 36.6
[2022-01-04 10:00] VITALS: BP 133/70; PULSE 103; RESP 16; O2SAT 96
[2022-01-04 18:00] VITALS: BP 133/88; PULSE 120; RESP 20; O2SAT 94
--- NOTE | 2022-01-04 21:56 | HO.PSYCHPN ---
Subjective Subjective Date of Service: 01/04/22 Reason For Visit: F29.9 Unspecified Schizophrenia Subjective Notes: Yu Warning and Section 7 Interim History: Patient seen and discussed with team. Per staff weapons officer, pt has disclosed having AH, adherent with haldol and ativan last night. Patient evaluated this today and upon interview he reports Im good. Says he is good with medication, still only wants to continue on depakote 500 mg daily. Says at night he is up pacing, I cant sleep at night, I just wake up, sleeps more in the day, tired. In the milieu, patient is safe but isolative in behavior, not attending groups. Denies SI/SIB/HI upon inquiry. Denies irritability or assaultive ideation. Says he feels safe. Medication Compliance: Intermittent Side effects from medications: No Attending Groups: No Review of Systems Acute medical concerns: No Medical Review of Systems: unchanged Mental Status Exam Mental Status Exam Narrative: lying in bed in casual attire.? cooperative. ? few spontaneous movements.? speech decr amount, rate.? tone flattened.? incr latency.? thoughts illogical and somewhat disorganized, paranoid in content.? affect blunted, poor eye contact. tired.? no SI/HI/AVH expressed. Diagnostics Vital Signs (24Hr): Vital Signs - 24 hr 01/04/22 10:00 01/04/22 18:00 Pulse Rate 103 H 120 H Respiratory Rate 16 20 Blood Pressure 133/70 133/88 Pulse Oximetry 96 94 BMI result Body Mass Index 36.6 Labs Results: 12/29/21 01:46 12/30/21 18:16 Imaging Radiology Impressions: ITS Impressions Chest X-Ray 12/29/21 01:30 IMPRESSION: Clear lungs. Medications Medications Current Medications Acetaminophen (Acetaminophen 325 Mg Tablet) 650 mg PO Q6H PRN PRN Reason: Headache/Pain Mild Scale (1-3) Al Hydroxide/Mg Hydroxide (Magnesium Hydrox/Alum Hydrox 30 Ml Oral.Susp) 30 ml PO Q6H PRN PRN Reason: Heartburn/Nausea Benztropine Mesylate (Benztropine Mesylate 0.5 Mg Tablet) 0.5 mg PO BID JOE Last Admin: 01/04/22 10:20 Dose: Not Given Documented by: Clonazepam (Clonazepam 0.5 Mg Tablet) 0.5 mg PO BID PRN PRN Reason: anxiety/restlessness Divalproex Sodium (Divalproex Sodium Er 500 Mg Tab.Er.24h) 500 mg PO TID [facility] Last Admin: 01/04/22 15:30 Dose: Not Given Documented by: Haloperidol (Haloperidol 5 Mg Tablet) 5 mg PO BID [facility] Last Admin: 01/04/22 10:20 Dose: Not Given Documented by: Hydroxyzine HCl (Hydroxyzine Hcl 25 Mg Tablet) 25 mg PO BEDTIME PRN PRN Reason: Anxiety Last Admin: 01/04/22 05:06 Dose: 25 mg Documented by: Magnesium Hydroxide (Milk Of Magnesia 30 Ml Oral.Susp) 30 ml PO DAILY PRN PRN Reason: Constipation Trazodone HCl (Trazodone Hcl 50 Mg Tablet) 50 mg PO BEDTIME PRN PRN Reason: Insomnia Allergies Allergies Allergy/AdvReac Type Severity Reaction Status Date / Time No Known Allergies Allergy Verified 12/21/21 03:16 [No Known Allergies*] Assessment & Plan Assessment & Plan (1) Schizophrenia, paranoid, chronic with acute exacerbation: Status: Acute Code(s): F20.0 - Paranoid schizophrenia Plan Nura is admitted for treatment and stabilization. When asked about his willingness to take medication he is noncommittal but he was not overtly refusing. I will initiate with Risperdal 3 mg at night. Side effects reviewed. Admission workup to be done. He will meet with his treatment team on 01/01/22. 12/31: Continue current regimen and plans. Encouraged to start taking the Risperdal which he is reluctant to do 01/01: change regimen to VPA 1500 at HS and haldol 10 @ HS and cogentin 1 @ HS, the same regimen he was last discharged on. 01/02: pt only took VPA 500 last night, will only take 1 pill. change orders to VPA 500 TID and haldol/cogentin 5/0.5 BID. 01/03: continues to take VPA 500 mg daily. Remains isolative and paranoid. 01/04: pt took haldol last night due to c/o AH, continues to present with paranoia. 3 day notice is up, on section 7 due to disorganized, paranoid behavior. I spent minutes with the patient and/or on the patient floor today, greater than?50% of which was spent counseling/coordinating care. Patient educated on: diagnosis and medication risk/benefits Reason for contiued inpatient stay Substantial Risk for: inability to function, rapid decompensation and med/psych decompensation
[2022-01-05 08:50] VITALS: BP 141/72; PULSE 136; RESP 16; TEMP 36.4; O2SAT 97
[2022-01-05] MEDS: Divalproex Sodium ER 500 MG TAB.ER.24H PO (09:04)
--- NOTE | 2022-01-05 15:40 | HO.PSYCHPN ---
Subjective Subjective Date of Service: 01/05/22 Reason For Visit: F29.9 Unspecified Schizophrenia Interim History: pt asking to discharge, doesn't seem to understand court process. multiple attempts made to explain, with and without dynamite reclaimer. pt informed staff would work with his [facility] worker to try to get his rent paid for him before it becomes a problem. pt also expressed a lot of concern that medications would hurt his body and said he would take legal action against the hospital if so. he was reassured that we would be checking his labs to ensure this was not happening. he was able to de-escalate eventually. per staff, hearing AH. flat affect. isolative. wants to discharge so he can pay his bills. up most of the NOC pacing. got headphones at 0500. partially compliant with meds. court 01/11. Mental Status Exam Mental Status Exam Narrative: up and about the unit, in hospital attire. cooperative. no PMA/PMR. speech incr amount and rate. tone WNL. decr latency. thoughts illogical and somewhat disorganized. affect mod labile, hyperintense, fair eye contact. no SI/HI/AVH expressed. Diagnostics Vital Signs (24Hr): Vital Signs - 24 hr 01/04/22 18:00 01/05/22 08:50 Temperature 97.5 F Pulse Rate 120 H 136 H Respiratory Rate 20 16 Blood Pressure 133/88 141/72 H Pulse Oximetry 94 97 BMI result Body Mass Index 36.6 Labs Results: 12/29/21 01:46 12/30/21 18:16 Imaging Radiology Impressions: ITS Impressions Chest X-Ray 12/29/21 01:30 IMPRESSION: Clear lungs. Medications Medications Current Medications Acetaminophen (Acetaminophen 325 Mg Tablet) 650 mg PO Q6H PRN PRN Reason: Headache/Pain Mild Scale (1-3) Al Hydroxide/Mg Hydroxide (Magnesium Hydrox/Alum Hydrox 30 Ml Oral.Susp) 30 ml PO Q6H PRN PRN Reason: Heartburn/Nausea Benztropine Mesylate (Benztropine Mesylate 0.5 Mg Tablet) 0.5 mg PO BID [facility] Last Admin: 01/05/22 09:47 Dose: Not Given Documented by: Clonazepam (Clonazepam 0.5 Mg Tablet) 0.5 mg PO BID PRN PRN Reason: anxiety/restlessness Divalproex Sodium (Divalproex Sodium Er 500 Mg Tab.Er.24h) 500 mg PO TID [facility] Last Admin: 01/05/22 09:04 Dose: 500 mg Documented by: Haloperidol (Haloperidol 5 Mg Tablet) 5 mg PO BID [facility] Last Admin: 01/05/22 09:47 Dose: Not Given Documented by: Hydroxyzine HCl (Hydroxyzine Hcl 25 Mg Tablet) 25 mg PO BEDTIME PRN PRN Reason: Anxiety Last Admin: 01/04/22 05:06 Dose: 25 mg Documented by: Magnesium Hydroxide (Milk Of Magnesia 30 Ml Oral.Susp) 30 ml PO DAILY PRN PRN Reason: Constipation Trazodone HCl (Trazodone Hcl 50 Mg Tablet) 50 mg PO BEDTIME PRN PRN Reason: Insomnia Allergies Allergies Allergy/AdvReac Type Severity Reaction Status Date / Time No Known Allergies Allergy Verified 12/21/21 03:16 [No Known Allergies*] Assessment & Plan Assessment & Plan (1) Schizophrenia, paranoid, chronic with acute exacerbation: Status: Acute Code(s): F20.0 - Paranoid schizophrenia Plan Nura is admitted for treatment and stabilization. When asked about his willingness to take medication he is noncommittal but he was not overtly refusing. I will initiate with Risperdal 3 mg at night. Side effects reviewed. Admission workup to be done. He will meet with his treatment team on 01/01/22. 12/31: Continue current regimen and plans. Encouraged to start taking the Risperdal which he is reluctant to do 01/01: change regimen to VPA 1500 at HS and haldol 10 @ HS and cogentin 1 @ HS, the same regimen he was last discharged on. 01/02: pt only took VPA 500 last night, will only take 1 pill. change orders to VPA 500 TID and haldol/cogentin 5/0.5 BID. 01/03: continues to take VPA 500 mg daily. Remains isolative and paranoid. 01/04: pt took haldol last night due to c/o AH, continues to present with paranoia. 3 day notice is up, on section 7 due to disorganized, paranoid behavior. 01/05: only partially med-compliant. agitated at having to remain in hospital today. I spent __30____ minutes with the patient and/or on the patient floor today, greater than?50% of which was spent counseling/coordinating care. Reason for contiued inpatient stay Substantial Risk for: inability to function and rapid decompensation
[2022-01-05 18:00] VITALS: BP 125/83; PULSE 115; RESP 18; O2SAT 95
[2022-01-06 06:00] VITALS: BP 141/78; PULSE 112; RESP 18; TEMP 36.6
--- NOTE | 2022-01-06 09:38 | HO.PSYCHPN ---
Subjective Subjective Date of Service: 01/06/22 Reason For Visit: F29.9 Unspecified Schizophrenia Subjective Notes: Section 7 Interim History: Pt reports he is saddened by fact that he can't do things he wants to do like going out places, in part worried about neighbors. He reports he can't take many medications, asked to take haldol but he declines for unclear reasons. He denies SI/HI, wants to be discharge soon. Medication Compliance: Yes Side effects from medications: No Review of Systems Review of Systems No cough no congestion or upper respiratory symptoms no diaphoresis Yes all other systems are reviewed and are negative Mental Status Exam Mental Status Exam Narrative: up and about the unit, in hospital attire. cooperative. no PMA/PMR. speech incr amount and rate. tone WNL. decr latency. thoughts illogical and somewhat disorganized. affect mod labile, hyperintense, fair eye contact. no SI/HI/AVH expressed. Diagnostics Vital Signs (24Hr): Vital Signs - 24 hr 01/08/22 07:51 Temperature 98.1 F Pulse Rate 115 H Respiratory Rate 17 Blood Pressure 141/80 H Pulse Oximetry 94 BMI result Body Mass Index 36.6 Labs Results: 12/29/21 01:46 12/30/21 18:16 Imaging Radiology Impressions: ITS Impressions Chest X-Ray 12/29/21 01:30 IMPRESSION: Clear lungs. Medications Medications Current Medications Acetaminophen (Acetaminophen 325 Mg Tablet) 650 mg PO Q6H PRN PRN Reason: Headache/Pain Mild Scale (1-3) Al Hydroxide/Mg Hydroxide (Magnesium Hydrox/Alum Hydrox 30 Ml Oral.Susp) 30 ml PO Q6H PRN PRN Reason: Heartburn/Nausea Albuterol Sulfate (Albuterol Sulfate 90 Mcg 8 Gm Inhaler) 2 puff INHALE RQ4H PRN PRN Reason: Shortness of Breath Last Admin: 01/08/22 03:49 Dose: 2 puff Documented by: Benztropine Mesylate (Benztropine Mesylate 0.5 Mg Tablet) 0.5 mg PO BID [facility] Last Admin: 01/07/22 21:25 Dose: Not Given Documented by: Clonazepam (Clonazepam 0.5 Mg Tablet) 0.5 mg PO BID PRN PRN Reason: anxiety/restlessness Divalproex Sodium (Divalproex Sodium Er 500 Mg Tab.Er.24h) 500 mg PO TID [facility] Last Admin: 01/07/22 21:25 Dose: Not Given Documented by: Famotidine (Famotidine 20 Mg Tablet) 20 mg PO BID [facility] Last Admin: 01/07/22 21:25 Dose: Not Given Documented by: Haloperidol (Haloperidol 5 Mg Tablet) 5 mg PO BID [facility] Last Admin: 01/07/22 21:25 Dose: Not Given Documented by: Hydroxyzine HCl (Hydroxyzine Hcl 25 Mg Tablet) 25 mg PO BEDTIME PRN PRN Reason: Anxiety Last Admin: 01/04/22 05:06 Dose: 25 mg Documented by: Magnesium Hydroxide (Milk Of Magnesia 30 Ml Oral.Susp) 30 ml PO DAILY PRN PRN Reason: Constipation Trazodone HCl (Trazodone Hcl 50 Mg Tablet) 50 mg PO BEDTIME PRN PRN Reason: Insomnia Allergies Allergies Allergy/AdvReac Type Severity Reaction Status Date / Time No Known Allergies Allergy Verified 12/21/21 03:16 [No Known Allergies*] Assessment & Plan Assessment & Plan (1) Schizophrenia, paranoid, chronic with acute exacerbation: Status: Acute Code(s): F20.0 - Paranoid schizophrenia Plan Nura is admitted for treatment and stabilization. When asked about his willingness to take medication he is noncommittal but he was not overtly refusing. I will initiate with Risperdal 3 mg at night. Side effects reviewed. Admission workup to be done. He will meet with his treatment team on 01/01/22. 12/31: Continue current regimen and plans. Encouraged to start taking the Risperdal which he is reluctant to do 01/01: change regimen to VPA 1500 at HS and haldol 10 @ HS and cogentin 1 @ HS, the same regimen he was last discharged on. 01/02: pt only took VPA 500 last night, will only take 1 pill. change orders to VPA 500 TID and haldol/cogentin 5/0.5 BID. 01/03: continues to take VPA 500 mg daily. Remains isolative and paranoid. 01/04: pt took haldol last night due to c/o AH, continues to present with paranoia. 3 day notice is up, on section 7 due to disorganized, paranoid behavior. 01/05: only partially med-compliant. agitated at having to remain in hospital today. I spent minutes with the patient and/or on the patient floor today, greater than?50% of which was spent counseling/coordinating care. Reason for contiued inpatient stay Substantial Risk for: inability to function
[2022-01-06 20:40] VITALS: BP 153/67; PULSE 100; RESP 18; O2SAT 93
[2022-01-07 08:15] VITALS: BP 135/90; PULSE 99; RESP 16; O2SAT 94
[2022-01-07] MEDS: Divalproex Sodium ER 500 MG TAB.ER.24H PO (09:06)
--- NOTE | 2022-01-07 09:42 | HO.PSYCHPN ---
Subjective Subjective Date of Service: 01/07/22 Reason For Visit: F29.9 Unspecified Schizophrenia Subjective Notes: Section 7 Interim History: Pt continues to report he can't go places, in part worried about neighbors and what they would do to him. He reports he can't take many medications, asked to take haldol but he declines for unclear reasons. He reports he will only take small dose of depakote. He denies SI/HI, wants to be discharge soon. Per nursing, poor sleep, fair appetite, reports nausea. Review of Systems Review of Systems No cough no congestion or upper respiratory symptoms no diaphoresis Yes all other systems are reviewed and are negative Mental Status Exam Mental Status Exam Narrative: up and about the unit, in hospital attire. cooperative. no PMA/PMR. speech incr amount and rate. tone WNL. decr latency. thoughts illogical and somewhat disorganized. affect mod labile, hyperintense, fair eye contact. no SI/HI/AVH expressed. Diagnostics Vital Signs (24Hr): Vital Signs - 24 hr 01/08/22 07:51 Temperature 98.1 F Pulse Rate 115 H Respiratory Rate 17 Blood Pressure 141/80 H Pulse Oximetry 94 BMI result Body Mass Index 36.6 Labs Results: 12/29/21 01:46 12/30/21 18:16 Imaging Radiology Impressions: ITS Impressions Chest X-Ray 12/29/21 01:30 IMPRESSION: Clear lungs. Medications Medications Current Medications Acetaminophen (Acetaminophen 325 Mg Tablet) 650 mg PO Q6H PRN PRN Reason: Headache/Pain Mild Scale (1-3) Al Hydroxide/Mg Hydroxide (Magnesium Hydrox/Alum Hydrox 30 Ml Oral.Susp) 30 ml PO Q6H PRN PRN Reason: Heartburn/Nausea Albuterol Sulfate (Albuterol Sulfate 90 Mcg 8 Gm Inhaler) 2 puff INHALE RQ4H PRN PRN Reason: Shortness of Breath Last Admin: 01/08/22 03:49 Dose: 2 puff Documented by: Benztropine Mesylate (Benztropine Mesylate 0.5 Mg Tablet) 0.5 mg PO BID [facility] Last Admin: 01/07/22 21:25 Dose: Not Given Documented by: Clonazepam (Clonazepam 0.5 Mg Tablet) 0.5 mg PO BID PRN PRN Reason: anxiety/restlessness Divalproex Sodium (Divalproex Sodium Er 500 Mg Tab.Er.24h) 500 mg PO TID [facility] Last Admin: 01/07/22 21:25 Dose: Not Given Documented by: Famotidine (Famotidine 20 Mg Tablet) 20 mg PO BID [facility] Last Admin: 01/07/22 21:25 Dose: Not Given Documented by: Haloperidol (Haloperidol 5 Mg Tablet) 5 mg PO BID [facility] Last Admin: 01/07/22 21:25 Dose: Not Given Documented by: Hydroxyzine HCl (Hydroxyzine Hcl 25 Mg Tablet) 25 mg PO BEDTIME PRN PRN Reason: Anxiety Last Admin: 01/04/22 05:06 Dose: 25 mg Documented by: Magnesium Hydroxide (Milk Of Magnesia 30 Ml Oral.Susp) 30 ml PO DAILY PRN PRN Reason: Constipation Trazodone HCl (Trazodone Hcl 50 Mg Tablet) 50 mg PO BEDTIME PRN PRN Reason: Insomnia Allergies Allergies Allergy/AdvReac Type Severity Reaction Status Date / Time No Known Allergies Allergy Verified 12/21/21 03:16 [No Known Allergies*] Assessment & Plan Assessment & Plan (1) Schizophrenia, paranoid, chronic with acute exacerbation: Status: Acute Code(s): F20.0 - Paranoid schizophrenia Plan Nura is admitted for treatment and stabilization. When asked about his willingness to take medication he is noncommittal but he was not overtly refusing. I will initiate with Risperdal 3 mg at night. Side effects reviewed. Admission workup to be done. He will meet with his treatment team on 01/01/22. 12/31: Continue current regimen and plans. Encouraged to start taking the Risperdal which he is reluctant to do 01/01: change regimen to VPA 1500 at HS and haldol 10 @ HS and cogentin 1 @ HS, the same regimen he was last discharged on. 01/02: pt only took VPA 500 last night, will only take 1 pill. change orders to VPA 500 TID and haldol/cogentin 5/0.5 BID. 01/03: continues to take VPA 500 mg daily. Remains isolative and paranoid. 01/04: pt took haldol last night due to c/o AH, continues to present with paranoia. 3 day notice is up, on section 7 due to disorganized, paranoid behavior. 01/05: only partially med-compliant. agitated at having to remain in hospital today. 01/06 no changes 01/07 no changes. I spent minutes with the patient and/or on the patient floor today, greater than?50% of which was spent counseling/coordinating care. Reason for contiued inpatient stay Substantial Risk for: inability to function
[2022-01-08] MEDS: Albuterol Sulfate 90 MCG 8 GM INHALER 2 PUFF INHALE (03:49)
[2022-01-08 07:51] VITALS: BP 141/80; PULSE 115; RESP 17; TEMP 36.7; O2SAT 94
[2022-01-08] MEDS: Divalproex Sodium ER 500 MG TAB.ER.24H PO (10:02)
[2022-01-08] MEDS: HaloperidoL 5 MG TABLET PO (10:02)
--- NOTE | 2022-01-08 14:20 | P.PNPSI_ITS ---
Subjective Subjective Date of Service: 01/08/22 Reason For Visit: F29.9 Unspecified Schizophrenia Interim History: pt encountered ambulating on the unit and in his room. he is amenable to interview with and comes to the sensory room for discussion. perseverative about needing to discharge to be able to pay his rent, even after MD explains several times that his [facility] worker is taking care of that issue. very rigid about not taking more than one pill of depakote or haldol - reviews MAR and it is noted pt took haldol for the first time this morning. he does c/o AH that he attempts to drown out by listening to loud music; MD educates him that haldol is to help with the voices and encourages him to take more. his appreciation of the message is dubious. per staff, took VPA only yesterday. eating a bit, isolative. has not slept the past 2 nights. pacing, minimal interactions with others. Mental Status Exam Mental Status Exam Narrative: up and about the unit, in hospital attire. cooperative. no PMA/PMR. speech incr amount and rate. tone WNL. decr latency. thoughts illogical and somewhat disorganized. perseverative on discharge. affect non labile, hyperintense, fair eye contact. no SI/HI/AVH expressed. Diagnostics Vital Signs (24Hr): Vital Signs - 24 hr 01/08/22 07:51 Temperature 98.1 F Pulse Rate 115 H Respiratory Rate 17 Blood Pressure 141/80 H Pulse Oximetry 94 BMI result Body Mass Index 36.6 Labs Results: 12/29/21 01:46 12/30/21 18:16 Imaging Radiology Impressions: ITS Impressions Chest X-Ray 12/29/21 01:30 IMPRESSION: Clear lungs. Medications Medications Current Medications Acetaminophen (Acetaminophen 325 Mg Tablet) 650 mg PO Q6H PRN PRN Reason: Headache/Pain Mild Scale (1-3) Al Hydroxide/Mg Hydroxide (Magnesium Hydrox/Alum Hydrox 30 Ml Oral.Susp) 30 ml PO Q6H PRN PRN Reason: Heartburn/Nausea Albuterol Sulfate (Albuterol Sulfate 90 Mcg 8 Gm Inhaler) 2 puff INHALE RQ4H PRN PRN Reason: Shortness of Breath Last Admin: 01/08/22 03:49 Dose: 2 puff Documented by: Benztropine Mesylate (Benztropine Mesylate 0.5 Mg Tablet) 0.5 mg PO BID [facility] Last Admin: 01/08/22 10:03 Dose: Not Given Documented by: Clonazepam (Clonazepam 0.5 Mg Tablet) 0.5 mg PO BID PRN PRN Reason: anxiety/restlessness Divalproex Sodium (Divalproex Sodium Er 500 Mg Tab.Er.24h) 500 mg PO TID [facility] Last Admin: 01/08/22 10:02 Dose: 500 mg Documented by: Famotidine (Famotidine 20 Mg Tablet) 20 mg PO BID [facility] Last Admin: 01/08/22 10:03 Dose: Not Given Documented by: Haloperidol (Haloperidol 5 Mg Tablet) 5 mg PO BID [facility] Last Admin: 01/08/22 10:02 Dose: 5 mg Documented by: Hydroxyzine HCl (Hydroxyzine Hcl 25 Mg Tablet) 25 mg PO BEDTIME PRN PRN Reason: Anxiety Last Admin: 01/04/22 05:06 Dose: 25 mg Documented by: Magnesium Hydroxide (Milk Of Magnesia 30 Ml Oral.Susp) 30 ml PO DAILY PRN PRN Reason: Constipation Trazodone HCl (Trazodone Hcl 50 Mg Tablet) 50 mg PO BEDTIME PRN PRN Reason: Insomnia Allergies Allergies Allergy/AdvReac Type Severity Reaction Status Date / Time No Known Allergies Allergy Verified 12/21/21 03:16 [No Known Allergies*] Assessment & Plan Assessment & Plan (1) Schizophrenia, paranoid, chronic with acute exacerbation: Status: Acute Code(s): F20.0 - Paranoid schizophrenia Plan Nura is admitted for treatment and stabilization. When asked about his willingness to take medication he is noncommittal but he was not overtly refusing. I will initiate with Risperdal 3 mg at night. Side effects reviewed. Admission workup to be done. He will meet with his treatment team on 01/01/22. 12/31: Continue current regimen and plans. Encouraged to start taking the Risperdal which he is reluctant to do 01/01: change regimen to VPA 1500 at HS and haldol 10 @ HS and cogentin 1 @ HS, the same regimen he was last discharged on. 01/02: pt only took VPA 500 last night, will only take 1 pill. change orders to VPA 500 TID and haldol/cogentin 5/0.5 BID. 01/03: continues to take VPA 500 mg daily. Remains isolative and paranoid. 01/04: pt took haldol last night due to c/o AH, continues to present with paranoia. 3 day notice is up, on section 7 due to disorganized, paranoid behavior. 01/05: only partially med-compliant. agitated at having to remain in hospital today. 01/06 no changes 01/07 no changes. 01/08: pt took haldol for the first time in several days this morning. remains very ill, lacking insight. commitment and med hearing 01/11 at 2 pm. I spent ___25___ minutes with the patient and/or on the patient floor today, greater than?50% of which was spent counseling/coordinating care. Patient educated on: medication risk/benefits Reason for contiued inpatient stay Substantial Risk for: inability to function and rapid decompensation
[2022-01-09] MEDS: Albuterol Sulfate 90 MCG 8 GM INHALER 2 PUFF INHALE (13:29)
--- NOTE | 2022-01-09 14:29 | P.PNPSI_ITS ---
Subjective Subjective Date of Service: 01/09/22 Reason For Visit: F29.9 Unspecified Schizophrenia Interim History: pt mildly agitated in the llamas today, saying he needs to discharge. he recites his need to pay his rent and his bills. is joined by REBEL. and REBEL explain to pt the legal process moving forward regarding commitment and medication order, as well as that pt's [facility] worker has taken care of his rent problem for this month. pt remains perseverative regarding his need to discharge to pay his rent and bills. multiple attempts made to explain legal and practical aspects o f pt's current circumstance to him, but he appears unable to integrate new information. per staff, attending groups. brighter. no dinner. refused HS meds. took morning haldol and VPA yesterday. slept on and off through the night. Mental Status Exam Mental Status Exam Narrative: up and about the unit, in street clothes. cooperative. no PMA/PMR. speech incr amount and rate. tone WNL. decr latency. thoughts illogical and somewhat disorganized. perseverative on discharge. affect mod-labile, hyperintense, fair eye contact. no SI/HI/AVH expressed. Diagnostics Vital Signs (24Hr): BMI result Body Mass Index 36.6 Labs Results: 12/29/21 01:46 12/30/21 18:16 Imaging Radiology Impressions: ITS Impressions Chest X-Ray 12/29/21 01:30 IMPRESSION: Clear lungs. Medications Medications Current Medications Acetaminophen (Acetaminophen 325 Mg Tablet) 650 mg PO Q6H PRN PRN Reason: Headache/Pain Mild Scale (1-3) Al Hydroxide/Mg Hydroxide (Magnesium Hydrox/Alum Hydrox 30 Ml Oral.Susp) 30 ml PO Q6H PRN PRN Reason: Heartburn/Nausea Albuterol Sulfate (Albuterol Sulfate 90 Mcg 8 Gm Inhaler) 2 puff INHALE RQ4H PRN PRN Reason: Shortness of Breath Last Admin: 01/09/22 13:29 Dose: 2 puff Documented by: Benztropine Mesylate (Benztropine Mesylate 0.5 Mg Tablet) 0.5 mg PO BID [facility] Last Admin: 01/09/22 10:14 Dose: Not Given Documented by: Divalproex Sodium (Divalproex Sodium Er 500 Mg Tab.Er.24h) 500 mg PO TID [facility] Last Admin: 01/09/22 10:15 Dose: Not Given Documented by: Famotidine (Famotidine 20 Mg Tablet) 20 mg PO BID [facility] Last Admin: 01/09/22 10:15 Dose: Not Given Documented by: Haloperidol (Haloperidol 5 Mg Tablet) 5 mg PO BID [facility] Last Admin: 01/09/22 10:15 Dose: Not Given Documented by: Hydroxyzine HCl (Hydroxyzine Hcl 25 Mg Tablet) 25 mg PO BEDTIME PRN PRN Reason: Anxiety Last Admin: 01/04/22 05:06 Dose: 25 mg Documented by: Magnesium Hydroxide (Milk Of Magnesia 30 Ml Oral.Susp) 30 ml PO DAILY PRN PRN Reason: Constipation Trazodone HCl (Trazodone Hcl 50 Mg Tablet) 50 mg PO BEDTIME PRN PRN Reason: Insomnia Allergies Allergies Allergy/AdvReac Type Severity Reaction Status Date / Time No Known Allergies Allergy Verified 12/21/21 03:16 [No Known Allergies*] Assessment & Plan Assessment & Plan (1) Schizophrenia, paranoid, chronic with acute exacerbation: Status: Acute Code(s): F20.0 - Paranoid schizophrenia Plan Nura is admitted for treatment and stabilization. When asked about his willingness to take medication he is noncommittal but he was not overtly refusing. I will initiate with Risperdal 3 mg at night. Side effects reviewed. Admission workup to be done. He will meet with his treatment team on 01/01/22. 12/31: Continue current regimen and plans. Encouraged to start taking the Risperdal which he is reluctant to do 01/01: change regimen to VPA 1500 at HS and haldol 10 @ HS and cogentin 1 @ HS, the same regimen he was last discharged on. 01/02: pt only took VPA 500 last night, will only take 1 pill. change orders to VPA 500 TID and haldol/cogentin 5/0.5 BID. 01/03: continues to take VPA 500 mg daily. Remains isolative and paranoid. 01/04: pt took haldol last night due to c/o AH, continues to present with [facility]. 3 day notice is up, on section 7 due to disorganized, paranoid behavior. 01/05: only partially med-compliant. agitated at having to remain in hospital today. 3/5 no changes 01/07 no changes. 01/08: pt took haldol for the first time in several days this morning. remains very ill, lacking insight. 01/09: pt appears to be taking low doses of VPA and haldol once daily or so, which appear to be inadequate to meet his needs. commitment and med hearing 01/11 at 2 pm. I spent __25____ minutes with the patient and/or on the patient floor today, greater than?50% of which was spent counseling/coordinating care. Reason for contiued inpatient stay Substantial Risk for: harm to others, inability to function and rapid decompensation
[2022-01-09 20:15] VITALS: BP 135/77; PULSE 100; TEMP 36.6; O2SAT 93
[2022-01-09 23:35] VITALS: BP 127/79; PULSE 103; RESP 19; TEMP 36.6; O2SAT 94
--- NOTE | 2022-01-10 05:16 | PC.NURSE ---
At 11:15p, Patient had episode of emesis large amount of digested food. VSS, afebrile. Remained guarded and withdrawn of how he was feeling. On-Call coverage notified and ordered PRN Zofaran, which patient refused. Cool compresses applied for comfort. Sipping on gingerale during the night with no further episodes.
[2022-01-10 06:00] VITALS: BP 142/81; PULSE 118; RESP 16; O2SAT 94
[2022-01-10] MEDS: Divalproex Sodium ER 500 MG TAB.ER.24H PO (13:35)
[2022-01-10] MEDS: HaloperidoL 5 MG TABLET PO (13:36)
--- NOTE | 2022-01-10 16:56 | P.PNPSI_ITS ---
Subjective Subjective Date of Service: 01/10/22 Reason For Visit: F29.9 Unspecified Schizophrenia Interim History: no change in presentation. asking for discharge, needs to pay rent. impervious to new information or reason. per staff, irritable, demanding DC yesterday. refused VS, meds. calmer in the afternoon. showered, ate large amount of take- out. 11:20 pm ran into the shower fully clothed, put his head under the water, tehn came out and vomited a large amount of partially digested food. Mental Status Exam Mental Status Exam Narrative: up and about the unit, in street clothes. cooperative. no PMA/PMR. speech incr amount and rate. tone WNL. decr latency. thoughts illogical and somewhat disorganized. perseverative on discharge. affect mod-labile, hyperintense, f air eye contact. no SI/HI/AVH expressed. Diagnostics Vital Signs (24Hr): Vital Signs - 24 hr 01/09/22 20:15 01/09/22 23:35 01/10/22 06:00 Temperature 98 F 97.8 F Pulse Rate 100 103 H 118 H Respiratory Rate 19 16 Blood Pressure 135/77 127/79 142/81 H Pulse Oximetry 93 94 94 BMI result Body Mass Index 36.6 Labs Results: 12/29/21 01:46 12/30/21 18:16 Imaging Radiology Impressions: ITS Impressions Chest X-Ray 12/29/21 01:30 IMPRESSION: Clear lungs. Medications Medications Current Medications Acetaminophen (Acetaminophen 325 Mg Tablet) 650 mg PO Q6H PRN PRN Reason: Headache/Pain Mild Scale (1-3) Al Hydroxide/Mg Hydroxide (Magnesium Hydrox/Alum Hydrox 30 Ml Oral.Susp) 30 ml PO Q6H PRN PRN Reason: Heartburn/Nausea Albuterol Sulfate (Albuterol Sulfate 90 Mcg 8 Gm Inhaler) 2 puff INHALE RQ4H PRN PRN Reason: Shortness of Breath Last Admin: 01/09/22 13:29 Dose: 2 puff Documented by: Benztropine Mesylate (Benztropine Mesylate 0.5 Mg Tablet) 0.5 mg PO BID [facility] Last Admin: 01/10/22 09:48 Dose: Not Given Documented by: Divalproex Sodium (Divalproex Sodium Er 500 Mg Tab.Er.24h) 500 mg PO TID [facility] Last Admin: 01/10/22 13:35 Dose: 500 mg Documented by: Famotidine (Famotidine 20 Mg Tablet) 20 mg PO BID [facility] Last Admin: 01/10/22 09:48 Dose: Not Given Documented by: Haloperidol (Haloperidol 5 Mg Tablet) 5 mg PO BID [facility] Last Admin: 01/10/22 13:36 Dose: 5 mg Documented by: Hydroxyzine HCl (Hydroxyzine Hcl 25 Mg Tablet) 25 mg PO BEDTIME PRN PRN Reason: Anxiety Last Admin: 01/04/22 05:06 Dose: 25 mg Documented by: Magnesium Hydroxide (Milk Of Magnesia 30 Ml Oral.Susp) 30 ml PO DAILY PRN PRN Reason: Constipation Ondansetron HCl (Ondansetron Odt 4 Mg Tab.Rapdis) 4 mg TRANSLINGU Q6H PRN PRN Reason: Nausea and Vomiting Trazodone HCl (Trazodone Hcl 50 Mg Tablet) 50 mg PO BEDTIME PRN PRN Reason: Insomnia Allergies Allergies Allergy/AdvReac Type Severity Reaction Status Date / Time No Known Allergies Allergy Verified 12/21/21 03:16 [No Known Allergies*] Assessment & Plan Assessment & Plan (1) Schizophrenia, paranoid, chronic with acute exacerbation: Status: Acute Code(s): F20.0 - Paranoid schizophrenia Plan Nura is admitted for treatment and stabilization. When asked about his willingness to take medication he is noncommittal but he was not overtly refusing. I will initiate with Risperdal 3 mg at night. Side effects reviewed. Admission workup to be done. He will meet with his treatment team on 01/01/22. 12/31: Continue current regimen and plans. Encouraged to start taking the Risperdal which he is reluctant to do 01/01: change regimen to VPA 1500 at HS and haldol 10 @ HS and cogentin 1 @ HS, the same regimen he was last discharged on. 01/02: pt only took VPA 500 last night, will only take 1 pill. change orders to VPA 500 TID and haldol/cogentin 5/0.5 BID. 01/03: continues to take VPA 500 mg daily. Remains isolative and paranoid. 01/04: pt took haldol last night due to c/o AH, continues to present with paranoia. 3 day notice is up, on section 7 due to disorganized, paranoid behavior. 01/05: only partially med-compliant. agitated at having to remain in hospital today. 01/06 no changes 01/07 no changes. 01/08: pt took haldol for the first time in several days this morning. remains very ill, lacking insight. 01/09: pt appears to be taking low doses of VPA and haldol once daily or so, which appear to be inadequate to meet his needs. 01/10: commitment and med hearing 01/11 at 2 pm canceled due to pt's apparent lack of dangerousness. pt will be discharged 01/11 by 2 pm. I spent __25____ minutes with the patient and/or on the patient floor today, greater than?50% of which was spent counseling/coordinating care. Reason for contiued inpatient stay Substantial Risk for: rapid decompensation
[2022-01-10 21:00] VITALS: BP 135/75; PULSE 98; RESP 18; O2SAT 96
[2022-01-11] MEDS: Divalproex Sodium ER 500 MG TAB.ER.24H PO (06:53)
[2022-01-11 08:23] VITALS: BP 139/68; PULSE 100; RESP 18; O2SAT 95
[2022-01-11] MEDS: HaloperidoL 5 MG TABLET PO (09:33)
--- NOTE | 2022-01-11 10:35 | P.DS_ITS ---
DS: Providers Provider Date of Service: 01/11/22 Date of admission: 12/29/21 23:19 Primary care physician: Unknown Physician DS: Diagnosis Discharge Diagnosis (1) Schizophrenia, paranoid, chronic with acute exacerbation: Status: Acute DS: Medications Discharge Medications Home Medications: Previous Rx's Medication Instructions Recorded albuterol sulfate 90 mcg/actuation 2 puff INHALATION RQ4H PRN 30 Days 01/11/22 aerosol inhaler (Ventolin HFA) #1 g benztropine 0.5 mg tablet 0.5 mg PO BEDTIME 30 Days #30 tab 01/11/22 divalproex 500 mg tablet,extended 500 mg PO BEDTIME 30 Days #30 tab 01/11/22 release 24 hr haloperidol 5 mg tablet 5 mg PO BEDTIME 30 Days #30 tab 01/11/22 Mental Status Exam Mental Status Exam Narrative: up and about the unit, in street clothes. cooperative. no PMA/PMR. speech incr amount and rate. tone WNL. decr latency. thoughts illogical and somewhat disorganized. perseverative on discharge. affect mod-labile, hyperintense, fair eye contact. no SI/HI/AVH. Data Data Completed and Pending Completed studies during hospitalization [Text1]: 12/29/21 01:46 Urine clean catch - Urine mo top Urine Culture - Final No growth. Imaging Diagnostic Imaging Impressions Chest X-Ray 12/29/21 01:30 IMPRESSION: Clear lungs. DS: Summary Hospital Course Hospital Course: per 12/30 admission note: Nura is a 26-year-old white, single, unemployed man.? He has had previous admissions to this hospital on different units.? He has a longstanding history of paranoid schizophrenia and history of medication noncompliance.? In the past court order had to be obtained for 1 of his admissions.? He self presented to the emergency room because of disorganized thought processes, auditory hallucinations of hearing voices from a ?distance? and sometimes hearing his neighbors.? He is not able to give much information and at times he is very hard to understand.? He has not been taking any medications and has been having trouble sleeping and being confused.? Very little to no insight into his problems.? He denies any suicidal ideations or history of attempts.? The reliability of this is questionable.? He denies any history of substance use or abuse.? He lives alone in his apartment in [place] which is managed by [facility] and is able to return there upon discharge.? In the past he has been on Invega, Risperdal and trazodone ? Past psychiatric history: Numerous hospitalization with very poor post discharge follow-up and medication noncompliance ? Social history:? Nura was born in [place], raised in [place] primarily by his grandmother after the age of 2.? He continued to live with his grandmother until she in 2005 and he moved to live with extended family in [place].? 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 There is history of schizophrenia in the family.? This was obtained from his records Medical Evaluation Reviewed: Yes [facility] Medical History? Schizophrenia, paranoid, chronic with acute exacerbation Family History: Both parents with substance use. Social History: Pt raised by extended family. Not close to bio mother or father. He was born in [place], in [place] for several years. He does have cousin and aunt close to him. Not working, on [employer] as primary source of income. Trauma History: Pt identifies not growing up with bio parents as traumatic. Precis: Nura is admitted for treatment and stabilization.? When asked about his willingness to take medication he is noncommittal but he was not overtly refusing.? I will initiate with Risperdal 3 mg at night.? Side effects reviewed.? Admission workup to be done.? He will meet with his treatment team on 01/01/22. 12/31: Continue current regimen and plans.? Encouraged to start taking the Risperdal which he is reluctant to do 01/01: change regimen to VPA 1500 at HS and haldol 10 @ HS and cogentin 1 @ HS, the same regimen he was last discharged on. 01/02: pt only took VPA 500 last night, will only take 1 pill. ? change orders to VPA 500 TID and haldol/cogentin 5/0.5 BID. 01/03: continues to take VPA 500 mg daily. Remains isolative and paranoid. 01/04: pt took haldol last night due to c/o AH, continues to present with paranoia. 3 day notice is up, on section 7 due to disorganized, paranoid behavior. 01/05: only partially med-compliant.? agitated at having to remain in hospital today. 01/06 no changes 01/07 no changes. 01/08: pt took haldol for the first time in several days this morning.? remains very ill, lacking insight. 01/09: pt appears to be taking low doses of VPA and haldol once daily or so, which appear to be inadequate to meet his needs. 01/10: commitment and med hearing 01/11 at 2 pm canceled due to pt's apparent lack of dangerousness. 01/11: discharged to self care. Time Spent with Patient Time attestation: Total time spent providing and/or coordinating discharge services: Discharge Plan Discharge Patient Disposition: Home, Self-Care Discharge Diagnosis: Schizophrenia, Paranoid Type Referrals: [facility] [Other] - 1 Week ([facility] services will resume tomorrow for medication management.) [facility] [Physician] - 1 Week Discharge Medications: New benztropine 0.5 mg Tablet 0.5 mg PO BEDTIME 30 Days Qty: 30 0RF haloperidol 5 mg Tablet 5 mg PO BEDTIME 30 Days Qty: 30 0RF divalproex 500 mg Tablet Extended Release 24 Hr 500 mg PO BEDTIME 30 Days Qty: 30 0RF Discontinued divalproex 500 mg Tablet Extended Release 24 Hr 1,000 mg PO DAILY Qty: 60 0RF No Action albuterol sulfate [Ventolin HFA] 90 mcg/actuation HFA aerosol inhaler 2 puff PO Q4H PRN (Reason: dyspnea) Discharge Orders: Discharge Order (Routine); Ordered 01/11/22 Ordered By: Dashawn Riojas Activity on Discharge: As tolerated Stand Alone Forms: Patient Portal Discharge page, Community Support Care Plan Goals: remain safe and stable in the outpatient treatment setting Health Concerns: none Plan of Treatment: take medications as prescribed, attend appointments as scheduled Assessment: not at imminent risk of harm to self or others Discharge Date/Time: 01/11/22 13:23
--- NOTE | 2022-01-11 12:03 | PC.NURSE ---
Patient alert, awake, states he feels ready for discharge, reports he feels safe to leave. Affect guarded. Patient occasionally engaging in conversation w/ staff, took Haldol this morning, declined all other medications. Patient responses brief. Reviewed discharge instructions w/ patient, patient aware that [facility] will be arriving tomorrow for medication management. No concerns reported.
== END 2022-01-11 13:23 | disposition home or self-care (01) | DRG 885 ==
LOC: HO.ED 01:16 → HO.PADLT16 23:20
PROVIDERS: Psychiatry & Neurology Psychiatry; Admitting Provider Psychiatry & Neurology Psychiatry; Emergency Provider Emergency Medicine Emergency Medical Services; Visit Provider Psychiatry & Neurology Psychiatry
DX: F20.0 Paranoid schizophrenia (principal); Z20.822 Contact with and (suspected) exposure to COVID-19; Z91.14 Patient's other noncompliance with medication regimen; Z87.891 Personal history of nicotine dependence; Z79.899 Other long term (current) drug therapy
CPT/HCPCS: 36415; 71045; 80048; 80053; 80061; 80076; 80143; 80164; 80179; 80307; 81001; 82077; 83690; 84484; 85025; 85027; 87086; 87635; 93005; 99283; 99285

== ENCOUNTER 2022-01-11 18:27 | Inpatient (IN) | payer MEDICARE, MEDICAID, SELFPAY ==
[2022-01-11 18:38] VITALS: BP 141/82; PULSE 118; RESP 16; TEMP 36.9; O2SAT 97; BMI 36.6
--- NOTE | 2022-01-11 19:29 | ED.NAVMDI ---
HPI - Nausea/Vomiting/Diarrhea General Chief complaint: Nausea/Vomiting/Diarrhea Stated complaint: vomiting Time Seen by Provider: 01/11/22 19:28 Source: patient Mode of arrival: ambulatory Limitations: no limitations History of Present Illness HPI Narrative: This is a 26-year-old male past medical history significant for paranoid schizophrenia, medication noncompliance, anxiety presenting to the emergency department with vomiting. Patient tells me that he is extremely paranoid, scared, he feels like people are talking about him, he hears a male and female voices arguing. He tells me he is very scared anxious paranoid. He feels like he was not ready to have been discharged today. According to patient he was just discharged from here from the psychiatric unit. He tells me that the only reason he is back is because his vomiting has not improved and he feels scared. He denies fevers, chills, chest pain, shortness of breath, abdominal pain, diarrhea, constipation, changes in urination. Patient denies visual, and tactile hallucinations. However he endorses auditory hallucinations. As described above. Denies drugs, alcohol and tobacco use. He denies SI and HI. MD elicited complaint: nausea and vomiting Onset (ago): day(s) (1) Description of vomiting: watery Associated nausea: Yes Associated abdominal pain: No Location of pain: none Severity: moderate Exacerbating factors: none Relieving factors: none Associated symptoms: denies other symptoms Related Data Previous Rx's Medication Instructions Recorded albuterol sulfate 90 mcg/actuation 2 puff INHALATION RQ4H PRN 30 Days 01/11/22 aerosol inhaler (Ventolin HFA) #1 g benztropine 0.5 mg tablet 0.5 mg PO BEDTIME 30 Days #30 tab 01/11/22 divalproex 500 mg tablet,extended 500 mg PO BEDTIME 30 Days #30 tab 01/11/22 release 24 hr haloperidol 5 mg tablet 5 mg PO BEDTIME 30 Days #30 tab 01/11/22 Allergies Allergy/AdvReac Type Severity Reaction Status Date / Time No Known Allergies Allergy Verified 01/11/22 18:38 [No Known Allergies*] Review of Systems Review of Systems: Constitutional : No Weight loss, No Fever, No Chills, No Fatigue, No Malaise ENT/Mouth : No sore throat, No Rhinorrhea Eyes: No Eye Pain, No Swelling, No Redness Cardiovascular : No Chest Pain, No SOB, No Dyspnea on Exertion, No Orthopnea, No Edema, No Palpitations Respiratory : No Cough, No Sputum, No Wheezing Gastrointestinal : + Nausea, + Vomiting, No Diarrhea, No Constipation, No abdominal Pain, No Hematochezia, No Melena Genitourinary : No Dysuria, No Urinary Frequency, No Hematuria, Musculoskeletal : No joint pain, No Myalgias, No Joint Swelling Skin : No Skin Lesions, No rash Neuro : No Weakness, No Numbness, No Dizziness, No Headache Psych : + Anxiety/Panic, No Depression, + auditory hallucinatios All other systems reviewed and are negative Yes all other systems are reviewed and are negative Gastrointestinal: Gastrointestinal: Reports nausea PMFSH Past Medical History Attestation statement: The following information was validated with the patient. Source: old records reviewed and nursing notes reviewed Medical History Schizophrenia, paranoid, chronic with acute exacerbation Social History Social History Household Members: None Household Members Other:: 0 Housing: Apartment Do you presently have visiting nurse or other home services: No Unable to assess alcohol history related to: Refusing to respond Alcohol intake: unknown Patient Tobacco Use Status: Former Tobacco user Tobacco use type: Cigarette e-Cigarette/Vaping Use: Never Used Second Hand Smoke Exposure: Yes Substance Use Type: Marijuana Advance Directives: No Sexual orientation: Cisgender Physical Exam Vital Signs: Vital Signs: Last Vital Signs Temp 98.4 F 01/11/22 18:38 Pulse 118 H 01/11/22 18:38 Resp 16 01/11/22 18:38 BP 141/82 H 01/11/22 18:38 Pulse Ox 97 01/11/22 18:38 BMI result Body Mass Index 36.6 VSS Appearance: Alert.? Oriented X3.? No acute distress.? Head: Normocephalic, atraumatic, no step-offs or deformities Eyes: Pupils equal, round and reactive to light.? ENT: Pharynx normal.? Neck: Normal inspection.? Neck supple.? CVS: Normal heart rate and rhythm.? Pulses normal.? Respiratory: No respiratory distress.? Breath sounds normal.? Abdomen: Soft and nontender.? Skin: Skin warm and dry.? Normal skin color.? Normal skin turgor.? Extremities: No lower extremity edema.? No calf ttp. 5/5 strength to bilateral upper and lower extremities Back: No midline tenderness, no C-spine tenderness, full range of motion, no CVA tenderness bilaterally Neuro: Oriented X 3.? No motor deficit.? No sensory deficit. CN 2-12 intact Course Reevaluation(s) Reevaluation #1: Patient's labs appear to be at baseline. CBC within normal limits. Transaminases slightly elevated however this appears to be patient's baseline. UA negative. Urine tox negative. At this time patient will be placed into physician observation. To allow more time for evaluation by the behavioral team. At time observation was started patient calm and cooperative no acute distress. Time: 20:41 MDM - Nausea/Vomiting/Diarrhea MDM Narrative Medical decision making narrative: 1933 26 yo m pmhx paranoid schizophrenia, poor med compliance, anxiety presenting to the emergency department with nausea and vomiting times a few hours. Patient also telling me that he is feeling very paranoid, he is hearing voices, he tells me here is a female and male voice speaking and that they are arguing and he feels scared to be out. He also reports extreme anxiety. According to chart review patient was here in the hospital from January 02 this afternoon at around 13:00 when he got discharge. He was admitted with schizophrenia, paranoid type with acute exacerbation. He was also noted to have poor med compliance at this time. He was discharged home with a safety plan today at approximately 1300 Physical examination benign Plan at this time is to give zofran and speak to psych Medical Records Attestation: I reviewed the patient's medical records. Lab Data Attestation: I reviewed the patient's lab results. Result diagrams: 01/11/22 Unknown 01/11/22 20:03 Labs: Lab Results 01/11/22 01/11/22 01/11/22 Range/Units 20:02 20:03 20:03 WBC (4.8-10.8) X10*3/uL RBC (4.60-5.80) X10*6/uL Hgb (14.0-18.0) g/dl Hct (42.0-52.0) % MCV (80.0-98.0) fL MCH (27.0-33.0) pg MCHC (31.0-36.0) g/dl RDW (11.0-16.0) % Plt Count (160-400) X10*3/uL MPV (9.4-12.4) fL Immature Gran % (Auto) (0.0-0.4) % Neut % (Auto) (45-73) % Lymph % (Auto) (20-40) % [place] % (Auto) (2-11) % Eos % (Auto) (0-4) % Baso % (Auto) (0-2) % Lymph # (Auto) (1.2-4.9) X10*3/uL [place] # (Auto) (0.1-1.2) X10*3/uL Eos # (Auto) (0.0-0.4) X10*3/uL Baso # (Auto) (0.0-0.2) X10*3/uL Abs Immat Gran (auto) (0.00-0.03) X10*3/uL Absolute Neuts (auto) (2.0-8.3) x10*3/uL Absolute Nucleated RBC (0.0-0.012) X10*3/uL Nucleated RBC % (auto) (0.0-0.2) /100WBC Sodium 138 (135-145) mmol/L Potassium 3.9 (3.3-5.1) mmol/L Chloride 103 (96-108) mmol/L Carbon Dioxide 25 (22-29) mmol/L Anion Gap 14 (12-20) BUN 9 (9-16) mg/dL Creatinine 0.80 (0.5-1.4) mg/dL Estim Creat Clear Calc 164.8 Estimated GFR > 60 Random Glucose 128 H D (60-115) mg/dL Calcium 9.5 D (8.4-10.2) mg/dL Magnesium 2.0 (1.6-2.6) mg/dL Total Bilirubin 0.5 (0.0-1.0) mg/dL AST 41 H (5-37) U/L ALT 87 H (0-40) U/L Alkaline Phosphatase 102 (39-117) U/L Total Protein 8.1 H (6.5-8.0) g/dL Albumin 4.6 (3.5-5.0) g/dL Urine Color Urine Appearance Urine pH (5.0-8.0) Ur Specific [place] (1.005-1.025) Urine Protein (NEG-TRACE) MG/DL Urine Glucose (UA) (NEG) MG/DL Urine Ketones (NEG) MG/DL Urine Blood (NEG) Urine Nitrite (NEG) Ur Leukocyte Esterase (NEG) Urine RBC (0) /HPF Urine WBC (0-4) /HPF Ur Squamous Epith Cells /LPF Urine Bacteria /LPF Urine Opiates Screen Not Detected (Not Detect) Urine Fentanyl Screen Not Detected (Not Detect) Ur Barbiturates Screen Not Detected (Not Detect) Ur Phencyclidine Scrn Not Detected (Not Detect) Ur Amphetamines Screen Not Detected (Not Detect) U Benzodiazepines Scrn Not Detected (Not Detect) Urine Cocaine Screen Not Detected (Not Detect) U Marijuana (THC) Screen Not Detected (Not Detect) COVID-19 (TUSHAR) Negative (Negative) COVID-19 Clin Com See Note 01/11/22 01/11/22 Range/Units 20:03 Unknown WBC 10.1 (4.8-10.8) X10*3/uL RBC 5.06 (4.60-5.80) X10*6/uL Hgb 15.0 (14.0-18.0) g/dl Hct 42.4 (42.0-52.0) % MCV 83.8 (80.0-98.0) fL MCH 29.6 (27.0-33.0) pg MCHC 35.4 (31.0-36.0) g/dl RDW 11.8 (11.0-16.0) % Plt Count 321 (160-400) X10*3/uL MPV 10.0 (9.4-12.4) fL Immature Gran % (Auto) 0.5 H (0.0-0.4) % Neut % (Auto) 56.6 (45-73) % Lymph % (Auto) 34.2 (20-40) % [place] % (Auto) 7.1 (2-11) % Eos % (Auto) 1.2 (0-4) % Baso % (Auto) 0.4 (0-2) % Lymph # (Auto) 3.5 (1.2-4.9) X10*3/uL [place] # (Auto) 0.7 (0.1-1.2) X10*3/uL Eos # (Auto) 0.1 (0.0-0.4) X10*3/uL Baso # (Auto) 0.0 (0.0-0.2) X10*3/uL Abs Immat Gran (auto) 0.05 H (0.00-0.03) X10*3/uL Absolute Neuts (auto) 5.7 (2.0-8.3) x10*3/uL Absolute Nucleated RBC 0.000 (0.0-0.012) X10*3/uL Nucleated RBC % (auto) 0.0 (0.0-0.2) /100WBC Sodium (135-145) mmol/L Potassium (3.3-5.1) mmol/L Chloride (96-108) mmol/L Carbon Dioxide (22-29) mmol/L Anion Gap (12-20) BUN (9-16) mg/dL Creatinine (0.5-1.4) mg/dL Estim Creat Clear Calc Estimated GFR Random Glucose (60-115) mg/dL Calcium (8.4-10.2) mg/dL Magnesium (1.6-2.6) mg/dL Total Bilirubin (0.0-1.0) mg/dL AST (5-37) U/L ALT (0-40) U/L Alkaline Phosphatase (39-117) U/L Total Protein (6.5-8.0) g/dL Albumin (3.5-5.0) g/dL Urine Color STRAW Urine Appearance CLEAR Urine pH 6.0 (5.0-8.0) Ur Specific [place] 1.025 (1.005-1.025) Urine Protein NEG (NEG-TRACE) MG/DL Urine Glucose (UA) NEG (NEG) MG/DL Urine Ketones 5 (NEG) MG/DL Urine Blood TRACE (NEG) Urine Nitrite NEG (NEG) Ur Leukocyte Esterase NEG (NEG) Urine RBC 0-2 (0) /HPF Urine WBC 0-2 (0-4) /HPF Ur Squamous Epith Cells TRACE /LPF Urine Bacteria NONE /LPF Urine Opiates Screen (Not Detect) Urine Fentanyl Screen (Not Detect) Ur Barbiturates Screen (Not Detect) Ur Phencyclidine Scrn (Not Detect) Ur Amphetamines Screen (Not Detect) U Benzodiazepines Scrn (Not Detect) Urine Cocaine Screen (Not Detect) U Marijuana (THC) Screen (Not Detect) COVID-19 (TUSHAR) (Negative) COVID-19 Clin Com Critical Care Time Critical Care Time Critical Care Time: No Discharge Plan Discharge Clinical Impression: Schizophrenia, paranoid, chronic with acute exacerbation Prescriptions: No Action albuterol sulfate [Ventolin HFA] 90 mcg/actuation Hfa Aerosol Inhaler 2 puff inhalation RQ4H PRN (Reason: Shortness Of Breath) 30 Days Qty: 1 0RF benztropine 0.5 mg Tablet 0.5 mg PO BEDTIME 30 Days Qty: 30 0RF haloperidol 5 mg Tablet 5 mg PO BEDTIME 30 Days Qty: 30 0RF divalproex 500 mg Tablet Extended Release 24 Hr 500 mg PO BEDTIME 30 Days Qty: 30 0RF
[2022-01-11] MEDS: Ondansetron ODT 4 MG TAB.RAPDIS TRANSLINGU (19:52)
[2022-01-11 20:15] LABS: MANUAL DIFF FLAG NO
[2022-01-11 20:17] LABS: Appearance Urine CLEAR; Color Urine STRAW; Glucose Urine UA NEG (NEG); Leukocyte Esterase Urine NEG (NEG); Nitrite Urine NEG (NEG); Specific Gravity - Urine 1.025 (1.005-1.025); UACC Culture Trigger NO; Urine Blood TRACE (NEG); Urine Ketones 5 MG/DL (NEG); Urine Protein NEG (NEG-TRACE)
[2022-01-11 20:17] LABS: Basophils Percent Auto 0.4 % (0-2); Eosinophils Absolute Auto 0.1 X10*3/uL (0.0-0.4); Eosinophils Percent Auto 1.2 % (0-4); Hematocrit 42.4 % (42.0-52.0); Imm Gran Abs Auto 0.05 X10*3/uL (0.00-0.03); Imm Gran Pct Auto 0.5 % (0.0-0.4); Lymphocytes Absolute Auto 3.5 X10*3/uL (1.2-4.9); Lymphocytes Percent Auto 34.2 % (20-40); Mean Corpuscular HGB Conc 35.4 g/dl (31.0-36.0); Mean Corpuscular Hemoglobin 29.6 pg (27.0-33.0); Mean Corpuscular Volume 83.8 fL (80.0-98.0); Monocytes Absolute Auto 0.7 X10*3/uL (0.1-1.2); Monocytes Percent Auto 7.1 % (2-11); Neutrophils Absolute Auto 5.7 x10*3/uL (2.0-8.3); Neutrophils Percent Auto 56.6 % (45-73); Platelet Count 321 X10*3/uL (160-400); Red Blood Count 5.06 X10*6/uL (4.60-5.80); Red Cell Distribution Width 11.8 % (11.0-16.0); White Blood Count 10.1 X10*3/uL (4.8-10.8)
[2022-01-11 20:26] LABS: RBC Urine 0-2 /HPF (0); Squamous Epithelial Cell Urine TRACE /LPF; WBC Urine 0-2 /HPF (0-4)
[2022-01-11 20:31] LABS: Alanine Aminotransferase 87 U/L (0-40); Albumin Level 4.6 g/dL (3.5-5.0); Alkaline Phosphatase 102 U/L (39-117); Anion Gap 14 (12-20); Aspartate Amino Transferase 41 U/L (5-37); Bilirubin Total 0.5 mg/dL (0.0-1.0); Blood Urea Nitrogen 9 mg/dL (9-16); COVID-19 Test Negative (Negative); Calcium 9.5 mg/dL (8.4-10.2); Carbon Dioxide 25 mmol/L (22-29); Chloride 103 mmol/L (96-108); Creatinine Clr Calc Pharmacy 164.8; Estimated Glomerular Filt Rate > 60; Glucose Random 128 mg/dL (60-115); Potassium 3.9 mmol/L (3.3-5.1); Sodium 138 mmol/L (135-145); Total Protein 8.1 g/dL (6.5-8.0)
[2022-01-11 20:38] LABS: Amphetamine Screen Urine Not Detected (Not Detect); Barbiturates, Urine Not Detected (Not Detect); Benzodiazepines Screen Urine Not Detected (Not Detect); Cannabinoid Screen Urine Not Detected (Not Detect); Cocaine Screen Urine Not Detected (Not Detect); Fentanyl, urine Not Detected (Not Detect); Opiate Screen Urine Not Detected (Not Detect); Phencyclidine Screen Urine Not Detected (Not Detect)
--- NOTE | 2022-01-11 22:14 | PC.NURSE ---
[facility] referral completed/confirmed, pending ETA, med rec completed/pending provider's approval, will continue to monitor.
--- NOTE | 2022-01-12 | ECG_ITS ---
Test Reason : MED CLEARANCE Blood Pressure : / mmHG Vent. Rate : 079 BPM Atrial Rate : 079 BPM P-R Int : 154 ms QRS Dur : 090 ms QT Int : 370 ms P-R-T Axes : 020 082 047 degrees QTc Int : 424 ms Normal sinus rhythm Normal ECG When compared with ECG of 29-DEC-2021 01:20, No significant change was found Referred By: Rigoberto Rodriguez Electronically Signed By:CHAYO JACOBS MD
[2022-01-12 06:13] VITALS: BP 115/66; PULSE 90; RESP 16; TEMP 36.8; O2SAT 96
--- NOTE | 2022-01-12 06:17 | PC.NURSE ---
Patient slept though the night, no distress observed/reported, patient is in shower currently, behavior appropriate, med rec completed/jan updated, patient was assessed by N no disposition was made so far, patient will be reevaluated in the morning, VSS, will continue to monitor.
--- NOTE | 2022-01-12 09:11 | MHC.CARE ---
CARE Team spoke with Dr. Riojas who is in agreement with a re-admit for further stabilization. CARE Team spoke with [facility] steel fabricating supervisor Placido - who will update Pts disposition from [facility] Follow up to Inpatient bed search with psychiatrist recommendation. Plan for Pt to be re-admitted to [facility].
[2022-01-12 09:52] LABS: COVID-19 Test Negative (Negative)
[2022-01-12 14:56] VITALS: BP 143/77; PULSE 105; RESP 18; TEMP 36.7; O2SAT 96
--- NOTE | 2022-01-12 14:56 | PC.NURSE ---
Nurse to nurse given to [facility] rahul eric
--- NOTE | 2022-01-12 15:26 | PC.NURSE ---
Patient is alert and oriented x 3 verbalized understanding of admission to [facility]. Escorted to [facility] via wheelchair with belongings by security and staff.
[2022-01-12 16:42] VITALS: BP 135/84; PULSE 97; RESP 17; TEMP 36.3; O2SAT 95
--- NOTE | 2022-01-12 17:07 | PC.ADMIT ---
PT was admitted to unit from [facility] on a conditional voluntary with a diagnosis of unspecified schizophrenia. PT reports that he had been feeling safe in the hospital and felt that he had to discharge in order to pay his rent, he reports that he did not feel completely ready to discharge but that he had to in order to not lose his apartment. Pt reports that as soon as he left the hospital he called his aunt due to racing thoughts and pressure on his head, he felt scared due to the cars and people laughing at him. PT continued to repeat that he feels a lot of pressure on his head (specifically the left side) and that he feels stuck with racing thoughts and that he feels disconnected. PT reports that he wants to be able to feel as safe as he does while in the hospital once he is discharged. PT states that the medications he was prescribed were not helpful and that is why he did not want to take them anymore. PT was perseverative about pressure in his head on the left side from his forehead to the back of his head, he states it is like he knows something bad is going to happen and feels physical pressure in his head. PT reports feeling safe on the unit. PT denies SI/HI and hallucinations, pt presents as paranoid and appears preoccupied internally during admission. 15 minute safety checks initiated for safety.
--- NOTE | 2022-01-12 21:21 | HO.PSYADMNOT ---
HPI Date of Service: 01/12/22 Chief Complaint: psychosis Sources of Information: patient interviewed, chart reviewed and crisis/core team assessment reviewed HPI Subjective Notes: Yu Warning and Conditional Voluntary Healthcare Proxy: No Guardianship: No Medical Problems Affecting Mental Status: No Narrative: Nura is a 26 y.o. male who carries a dx of paranoid schizophrenia. He presented to [facility] on 01/11/22 after discharge from [facility] on the same day after signing a 3 day notice. Pt reported feeling paranoid, ?feels like people are talking about him,? and disclosed AH. Per ED clinician, pt reported he was not ready to have been discharged today. Has DMH and ACCS services through [facility]. No Catarino's order. Hx of med non-adherence. I evaluated the pt this afternoon and during interview pt is fixated on his rent, as he says it was supposed to have been paid by [facility] ACCS team while he was at the hospital, however denies that this was done. Says he is back at the hospital because he feels ?pressure from bad people? and has ?anxious.? Pt states ?I dont feel good mentally,? has ?bad thoughts.? Pt reports he is med nonadherent because he feels a ?pressure? on the left side of his head and he doesnt like that feeling. Pt reports sleep is poor, as he wakes up throughout the night. Pt denies SI/SIB/HI upon inquiry and says he feels safe. He requests a single room, asks to sleep in the sensory room. Past Psychiatric History: -He has a longstanding history of paranoid schizophrenia and history of medication noncompliance. In the past court order had to be obtained for 1 of his admissions. Very little to no insight into his problems. He denies any suicidal ideations or history of attempts. His apartment in [place] is managed by [facility] and he is able to return there upon discharge. In the past he has been on Invega, Risperdal and trazodone -Hx of numerous hospitalization with very poor post discharge follow-up and medication noncompliance Medical Evaluation Reviewed: Yes [facility] Medical History Schizophrenia, paranoid, chronic with acute exacerbation Family History: -Both parents with substance use. -There is history of schizophrenia in the family. Social History: Pt raised by extended family. Not close to bio mother or father. He was born in [place], in [place] for several years. He does have cousin and aunt close to him. Not working, on SSI as primary source of income. 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 Substance History: Denies Trauma History: Pt identifies not growing up with bio parents as traumatic. Diagnostics Vital Signs (24Hr): Vital Signs - 24 hr 01/12/22 06:13 01/12/22 14:56 01/12/22 16:42 Temperature 98.2 F 98.0 F 97.3 F Pulse Rate 90 105 H 97 Respiratory Rate 16 18 17 Blood Pressure 115/66 143/77 H 135/84 Pulse Oximetry 96 96 95 BMI result Body Mass Index 36.6 Labs Results: 01/11/22 Unknown 01/11/22 20:03 Labs: Laboratory Results - last 48 hr 01/11/22 01/11/22 01/11/22 20:02 20:03 20:03 WBC RBC Hgb Hct MCV MCH MCHC RDW Plt Count MPV Immature Gran % (Auto) Neut % (Auto) Lymph % (Auto) [place] % (Auto) Eos % (Auto) Baso % (Auto) Lymph # (Auto) [place] # (Auto) Eos # (Auto) Baso # (Auto) Abs Immat Gran (auto) Absolute Neuts (auto) Absolute Nucleated RBC Nucleated RBC % (auto) Sodium 138 Potassium 3.9 Chloride 103 Carbon Dioxide 25 Anion Gap 14 BUN 9 Creatinine 0.80 Estim Creat Clear Calc 164.8 Estimated GFR > 60 Random Glucose 128 H D Calcium 9.5 D Magnesium 2.0 Total Bilirubin 0.5 AST 41 H ALT 87 H Alkaline Phosphatase 102 Total Protein 8.1 H Albumin 4.6 Urine Color Urine Appearance Urine pH Ur Specific [place] Urine Protein Urine Glucose (UA) Urine Ketones Urine Blood Urine Nitrite Ur Leukocyte Esterase Urine RBC Urine WBC Ur Squamous Epith Cells Urine Bacteria Urine Opiates Screen Not Detected Urine Fentanyl Screen Not Detected Ur Barbiturates Screen Not Detected Ur Phencyclidine Scrn Not Detected Ur Amphetamines Screen Not Detected U Benzodiazepines Scrn Not Detected Urine Cocaine Screen Not Detected U Marijuana (THC) Screen Not Detected COVID-19 (TUSHAR) Negative COVID-19 Clin Com See Note 01/11/22 01/11/22 01/12/22 20:03 Unknown 09:23 WBC 10.1 RBC 5.06 Hgb 15.0 Hct 42.4 MCV 83.8 MCH 29.6 MCHC 35.4 RDW 11.8 Plt Count 321 MPV 10.0 Immature Gran % (Auto) 0.5 H Neut % (Auto) 56.6 Lymph % (Auto) 34.2 [place] % (Auto) 7.1 Eos % (Auto) 1.2 Baso % (Auto) 0.4 Lymph # (Auto) 3.5 [place] # (Auto) 0.7 Eos # (Auto) 0.1 Baso # (Auto) 0.0 Abs Immat Gran (auto) 0.05 H Absolute Neuts (auto) 5.7 Absolute Nucleated RBC 0.000 Nucleated RBC % (auto) 0.0 Sodium Potassium Chloride Carbon Dioxide Anion Gap BUN Creatinine Estim Creat Clear Calc Estimated GFR Random Glucose Calcium Magnesium Total Bilirubin AST ALT Alkaline Phosphatase Total Protein Albumin Urine Color STRAW Urine Appearance CLEAR Urine pH 6.0 Ur Specific [place] 1.025 Urine Protein NEG Urine Glucose (UA) NEG Urine Ketones 5 Urine Blood TRACE Urine Nitrite NEG Ur Leukocyte Esterase NEG Urine RBC 0-2 Urine WBC 0-2 Ur Squamous Epith Cells TRACE Urine Bacteria NONE Urine Opiates Screen Urine Fentanyl Screen Ur Barbiturates Screen Ur Phencyclidine Scrn Ur Amphetamines Screen U Benzodiazepines Scrn Urine Cocaine Screen U Marijuana (THC) Screen COVID-19 (TUSHAR) Negative COVID-19 Clin Com See Note Meds/Allergies Meds Home Medications Acetaminophen (Acetaminophen 325 Mg Tablet) 650 mg PO Q6H PRN PRN Reason: Headache/Pain Mild Scale (1-3) Al Hydroxide/Mg Hydroxide (Magnesium Hydrox/Alum Hydrox 30 Ml Oral.Susp) 30 ml PO Q6H PRN PRN Reason: Heartburn/Nausea Albuterol Sulfate (Albuterol Sulfate 90 Mcg 8 Gm Inhaler) 2 puff INHALE RQ4H PRN PRN Reason: Shortness Of Breath Benztropine Mesylate (Benztropine Mesylate 0.5 Mg Tablet) 0.5 mg PO BEDTIME [facility] Last Admin: 01/12/22 23:27 Dose: Not Given Documented by: Divalproex Sodium (Divalproex Sodium Er 500 Mg Tab.Er.24h) 500 mg PO TID [facility] Last Admin: 01/12/22 23:27 Dose: Not Given Documented by: Haloperidol (Haloperidol 5 Mg Tablet) 5 mg PO TID [facility] Last Admin: 01/12/22 23:27 Dose: Not Given Documented by: Hydroxyzine HCl (Hydroxyzine Hcl 25 Mg Tablet) 25 mg PO BEDTIME PRN PRN Reason: Anxiety Magnesium Hydroxide (Milk Of Magnesia 30 Ml Oral.Susp) 30 ml PO DAILY PRN PRN Reason: Constipation Nicotine Polacrilex (Nicotine Polacrilex 2 Mg Gum) 4 mg BUCCAL Q2H PRN PRN Reason: Nicotine Cravings Trazodone HCl (Trazodone Hcl 50 Mg Tablet) 50 mg PO BEDTIME PRN PRN Reason: Insomnia Allergies Allergies Allergy/AdvReac Type Severity Reaction Status Date / Time No Known Allergies Allergy Verified 01/11/22 18:38 [No Known Allergies*] Mental Status Exam Mental Status Exam Narrative: A&O except to situation. In casual attire, not malodorous, overweight. Poor eye contact, attentive. No Tics or Tremors. No abnormal involuntary movements. Calm, cooperative, engaged. Non-pressured speech, spontaneous with regular rate and rhythm, normal volume and prosody. No prolonged speech latency or dysarthria. Mood is ?depressed,? affect is flat. Denies SI/SIB/HI upon inquiry. Endorses AH. Denies VH. Endorses delusional paranoid thought content. Thoughts are disorganized. No known cognitive or memory impairment. Insight/ Judgment limited but adequate. Assessment & Plan Assessment & Plan (1) Schizophrenia, paranoid, chronic with acute exacerbation: Status: Acute Code(s): F20.0 - Paranoid schizophrenia Plan Nura is a 26 y.o. male who presents with symptoms of paranoid delusions, AH, depressed mood, and isolative behaviors. He has a hx of multiple inpatient admissions, hx of being commited via section 8 during previous M5 admission. He re-presented to [facility] after being discharged the same day due to feeling like he left prematurely, paranoid, endorsed AH. Has DMH and OP psych providers. Hx pf paranoid delusional thoughts about his neighbors wanting to harm him. Plan: resume medication regimen from previous admission. Q15 min safety checks, CV Monitor response to medications. Monitor for safety in the milieu. Discharge on stabilization. Patient seen. Chart reviewed. Discussed with team. Obtain collateral contact info?as needed Patient educated on: medication risk/benefits and therapeutic strategies Reason for continued inpatient stay Substantial Risk for: inability to function, rapid decompensation and med/psych decompensation
--- NOTE | 2022-01-13 07:06 | PHA.MEDREC ---
Pharmacy Consult ? Medication Reconciliation Nursing has completed the medication reconciliation and Pharmacy has reviewed.
[2022-01-13 08:10] VITALS: BP 127/77; PULSE 121; RESP 18; TEMP 36.6; O2SAT 92
--- NOTE | 2022-01-13 10:04 | HO.PSYCHPN ---
Subjective Subjective Date of Service: 01/13/22 Reason For Visit: psychosis Subjective Notes: Conditional Voluntary Medical Problems Affecting Mental Status: No Interim History: pt difficult to engage; irritable, guarded, not willing to engage in full conversation, pacing. asks for bacitracin ointment for 1/4 inch scratch on back of neck, slightly red, reports tender, not open, and no oozing. 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 In casual attire, not malodorous, overweight. Poor eye contact, attentive. No Tics or Tremors. No abnormal involuntary movements. Irritable, cooperative,not easily engaged. Non-pressured speech, spontaneous with regular rate and rhythm, normal volume and prosody. prolonged speech latency or dysarthria. Mood is ?depressed,? affect is flat. Denies SI/SIB/HI upon inquiry. Endorses AH. Denies VH. Insight/ Judgment limited but adequate. Diagnostics Vital Signs (24Hr): Vital Signs - 24 hr 01/12/22 14:56 01/12/22 16:42 01/13/22 08:10 Temperature 98.0 F 97.3 F 97.9 F Pulse Rate 105 H 97 121 H Respiratory Rate 18 17 18 Blood Pressure 143/77 H 135/84 127/77 Pulse Oximetry 96 95 92 BMI result Body Mass Index 36.6 Labs Results: 01/11/22 Unknown 01/11/22 20:03 Labs: Laboratory Results - last 48 hr 01/11/22 01/11/22 01/11/22 20:02 20:03 20:03 WBC RBC Hgb Hct MCV MCH MCHC RDW Plt Count MPV Immature Gran % (Auto) Neut % (Auto) Lymph % (Auto) [place] % (Auto) Eos % (Auto) Baso % (Auto) Lymph # (Auto) [place] # (Auto) Eos # (Auto) Baso # (Auto) Abs Immat Gran (auto) Absolute Neuts (auto) Absolute Nucleated RBC Nucleated RBC % (auto) Sodium 138 Potassium 3.9 Chloride 103 Carbon Dioxide 25 Anion Gap 14 BUN 9 Creatinine 0.80 Estim Creat Clear Calc 164.8 Estimated GFR > 60 Random Glucose 128 H D Calcium 9.5 D Magnesium 2.0 Total Bilirubin 0.5 AST 41 H ALT 87 H Alkaline Phosphatase 102 Total Protein 8.1 H Albumin 4.6 Urine Color Urine Appearance Urine pH Ur Specific [place] Urine Protein Urine Glucose (UA) Urine Ketones Urine Blood Urine Nitrite Ur Leukocyte Esterase Urine RBC Urine WBC Ur Squamous Epith Cells Urine Bacteria Urine Opiates Screen Not Detected Urine Fentanyl Screen Not Detected Ur Barbiturates Screen Not Detected Ur Phencyclidine Scrn Not Detected Ur Amphetamines Screen Not Detected U Benzodiazepines Scrn Not Detected Urine Cocaine Screen Not Detected U Marijuana (THC) Screen Not Detected COVID-19 (TUSHAR) Negative COVID-19 Clin Com See Note 01/11/22 01/11/22 01/12/22 20:03 Unknown 09:23 WBC 10.1 RBC 5.06 Hgb 15.0 Hct 42.4 MCV 83.8 MCH 29.6 MCHC 35.4 RDW 11.8 Plt Count 321 MPV 10.0 Immature Gran % (Auto) 0.5 H Neut % (Auto) 56.6 Lymph % (Auto) 34.2 [place] % (Auto) 7.1 Eos % (Auto) 1.2 Baso % (Auto) 0.4 Lymph # (Auto) 3.5 [place] # (Auto) 0.7 Eos # (Auto) 0.1 Baso # (Auto) 0.0 Abs Immat Gran (auto) 0.05 H Absolute Neuts (auto) 5.7 Absolute Nucleated RBC 0.000 Nucleated RBC % (auto) 0.0 Sodium Potassium Chloride Carbon Dioxide Anion Gap BUN Creatinine Estim Creat Clear Calc Estimated GFR Random Glucose Calcium Magnesium Total Bilirubin AST ALT Alkaline Phosphatase Total Protein Albumin Urine Color STRAW Urine Appearance CLEAR Urine pH 6.0 Ur Specific [place] 1.025 Urine Protein NEG Urine Glucose (UA) NEG Urine Ketones 5 Urine Blood TRACE Urine Nitrite NEG Ur Leukocyte Esterase NEG Urine RBC 0-2 Urine WBC 0-2 Ur Squamous Epith Cells TRACE Urine Bacteria NONE Urine Opiates Screen Urine Fentanyl Screen Ur Barbiturates Screen Ur Phencyclidine Scrn Ur Amphetamines Screen U Benzodiazepines Scrn Urine Cocaine Screen U Marijuana (THC) Screen COVID-19 (TUSHAR) Negative COVID-19 Clin Com See Note Medications Medications Current Medications Acetaminophen (Acetaminophen 325 Mg Tablet) 650 mg PO Q6H PRN PRN Reason: Headache/Pain Mild Scale (1-3) Al Hydroxide/Mg Hydroxide (Magnesium Hydrox/Alum Hydrox 30 Ml Oral.Susp) 30 ml PO Q6H PRN PRN Reason: Heartburn/Nausea Albuterol Sulfate (Albuterol Sulfate 90 Mcg 8 Gm Inhaler) 2 puff INHALE RQ4H PRN PRN Reason: Shortness Of Breath Benztropine Mesylate (Benztropine Mesylate 0.5 Mg Tablet) 0.5 mg PO BEDTIME [facility] Last Admin: 01/12/22 23:27 Dose: Not Given Documented by: Divalproex Sodium (Divalproex Sodium Er 500 Mg Tab.Er.24h) 500 mg PO TID [facility] Last Admin: 01/13/22 09:53 Dose: Not Given Documented by: Haloperidol (Haloperidol 5 Mg Tablet) 5 mg PO TID [facility] Last Admin: 01/13/22 09:53 Dose: Not Given Documented by: Hydroxyzine HCl (Hydroxyzine Hcl 25 Mg Tablet) 25 mg PO BEDTIME PRN PRN Reason: Anxiety Magnesium Hydroxide (Milk Of Magnesia 30 Ml Oral.Susp) 30 ml PO DAILY PRN PRN Reason: Constipation Nicotine Polacrilex (Nicotine Polacrilex 2 Mg Gum) 4 mg BUCCAL Q2H PRN PRN Reason: Nicotine Cravings Trazodone HCl (Trazodone Hcl 50 Mg Tablet) 50 mg PO BEDTIME PRN PRN Reason: Insomnia Allergies Allergies Allergy/AdvReac Type Severity Reaction Status Date / Time No Known Allergies Allergy Verified 01/11/22 18:38 [No Known Allergies*] Assessment & Plan Assessment & Plan (1) Schizophrenia, paranoid, chronic with acute exacerbation: Status: Acute Code(s): F20.0 - Paranoid schizophrenia Plan Nura is a 26 y.o. male who presents with symptoms of paranoid delusions, AH, depressed mood, and isolative behaviors. He has a hx of multiple inpatient admissions, hx of being commited via section 8 during previous admission. He re-presented to [facility] after being discharged the same day due to feeling like he left prematurely, paranoid, endorsed AH. Has DMH and OP psych providers. Hx pf paranoid delusional thoughts about his neighbors wanting to harm him. Continue below plan: resume medication regimen from previous admission. Q15 min safety checks, CV Monitor response to medications. Monitor for safety in the milieu. Discharge on stabilization. Patient seen. Chart reviewed. Discussed with team. Obtain collateral contact info?as needed I spent ___15___ minutes with the patient and/or on the patient floor today, greater than?50% of which was spent counseling/coordinating care. Patient educated on: medication risk/benefits and therapeutic strategies Informed Consent: further education needed Reason for contiued inpatient stay Substantial Risk for: harm to self, inability to function and rapid decompensation
[2022-01-13] MEDS: Bacitracin Oint 14 GM TUBE 1 APPL TOPICAL ×3 (13:12→21:35)
[2022-01-13] MEDS: HaloperidoL 5 MG TABLET PO (21:34)
[2022-01-13] MEDS: Divalproex Sodium ER 500 MG TAB.ER.24H PO (21:34)
[2022-01-14] MEDS: HaloperidoL 5 MG TABLET PO ×3 (05:30→23:10)
--- NOTE | 2022-01-14 05:30 | PC.NURSE ---
Nura reporting increased auditory hallucinations. Patient requested Haldol. Patient given 0900 dosage as patient has not been taking medication for past 2 days. Will discuss with am nurse to speak with MD to add prn medications.
[2022-01-14 09:07] VITALS: BP 147/91; PULSE 120; RESP 18; TEMP 36.6; O2SAT 96
[2022-01-14] MEDS: Bacitracin Oint 14 GM TUBE 1 APPL TOPICAL ×3 (09:15→20:52)
--- NOTE | 2022-01-14 11:05 | P.PNPSI_ITS ---
Subjective Subjective Date of Service: 01/14/22 Reason For Visit: psychosis Subjective Notes: 3 Day Interim History: pt anxious, irritable, guarded, difficult to engage but tolerates brief interaction. Medication Compliance: Yes Side effects from medications: No Attending Groups: No Review of Systems Acute medical concerns: No Medical Review of Systems: unchanged Review of Systems Review of Systems BP and HR up Mental Status Exam Mental Status Exam Narrative: A&O except to situation. In casual attire, not malodorous, overweight. Poor eye contact, attentive. No Tics or Tremors. No abnormal involuntary movements. Irritable,not easily engaged. Non-pressured speech, spontaneous with regular rate and rhythm, normal volume and prosody. prolonged speech latency or dysarthria. Mood is depressed and anxious affect is flat. Denies SI/SIB/HI upon inquiry. Endorses AH. Denies VH. Insight/ Judgment limited but adequate. Diagnostics Vital Signs (24Hr): Vital Signs - 24 hr 01/14/22 09:07 Temperature 97.9 F Pulse Rate 120 H Respiratory Rate 18 Blood Pressure 147/91 H Pulse Oximetry 96 BMI result Body Mass Index 36.6 Labs Results: 01/11/22 Unknown 01/11/22 20:03 Medications Medications Current Medications Acetaminophen (Acetaminophen 325 Mg Tablet) 650 mg PO Q6H PRN PRN Reason: Headache/Pain Mild Scale (1-3) Al Hydroxide/Mg Hydroxide (Magnesium Hydrox/Alum Hydrox 30 Ml Oral.Susp) 30 ml PO Q6H PRN PRN Reason: Heartburn/Nausea Albuterol Sulfate (Albuterol Sulfate 90 Mcg 8 Gm Inhaler) 2 puff INHALE RQ4H PRN PRN Reason: Shortness Of Breath Bacitracin (Bacitracin Oint 14 Gm Tube) 1 appl TOPICAL TID JOE; Protocol Last Admin: 01/14/22 09:15 Dose: 1 appl Documented by: Benztropine Mesylate (Benztropine Mesylate 0.5 Mg Tablet) 0.5 mg PO BEDTIME [facility] Last Admin: 01/13/22 21:36 Dose: Not Given Documented by: Divalproex Sodium (Divalproex Sodium Er 500 Mg Tab.Er.24h) 500 mg PO TID [facility] Last Admin: 01/14/22 09:15 Dose: Not Given Documented by: Haloperidol (Haloperidol 5 Mg Tablet) 5 mg PO TID [facility] Last Admin: 01/14/22 05:30 Dose: 5 mg Documented by: Hydroxyzine HCl (Hydroxyzine Hcl 25 Mg Tablet) 25 mg PO BEDTIME PRN PRN Reason: Anxiety Magnesium Hydroxide (Milk Of Magnesia 30 Ml Oral.Susp) 30 ml PO DAILY PRN PRN Reason: Constipation Nicotine Polacrilex (Nicotine Polacrilex 2 Mg Gum) 4 mg BUCCAL Q2H PRN PRN Reason: Nicotine Cravings Trazodone HCl (Trazodone Hcl 50 Mg Tablet) 50 mg PO BEDTIME PRN PRN Reason: Insomnia Allergies Allergies Allergy/AdvReac Type Severity Reaction Status Date / Time No Known Allergies Allergy Verified 01/11/22 18:38 [No Known Allergies*] Assessment & Plan Assessment & Plan (1) Schizophrenia, paranoid, chronic with acute exacerbation: Status: Acute Code(s): F20.0 - Paranoid schizophrenia Plan Nura is a 26 y.o. male who presents with symptoms of paranoid delusions, AH, depressed mood, and isolative behaviors. He has a hx of multiple inpatient admissions, hx of being commited via section 8 during previous M5 admission. He re-presented to [facility] after being discharged the same day due to feeling like he left prematurely, paranoid, endorsed AH. Has DMH and OP psych providers. Hx pf paranoid delusional thoughts about his neighbors wanting to harm him. Continue below plan: 01/14/22 add clonazepam 0.5 mg TID prn anxiety (on in past) resume medication regimen from previous admission. Q15 min safety checks, CV Monitor response to medications. Monitor for safety in the milieu. Discharge on stabilization. Patient seen. Chart reviewed. Discussed with team. Obtain collateral contact info?as needed I spent ___15___ minutes with the patient and/or on the patient floor today, greater than?50% of which was spent counseling/coordinating care. Patient educated on: medication risk/benefits and therapeutic strategies Informed Consent: further education needed Reason for contiued inpatient stay Substantial Risk for: harm to self, harm to others, inability to function and rapid decompensation
[2022-01-14] MEDS: Divalproex Sodium ER 500 MG TAB.ER.24H PO ×2 (15:33→23:10)
[2022-01-14] MEDS: Albuterol Sulfate 90 MCG 8 GM INHALER 2 PUFF INHALE (19:57)
[2022-01-14 20:43] VITALS: BP 134/82; PULSE 135; RESP 16; O2SAT 95
[2022-01-15 09:00] VITALS: BP 138/77; PULSE 127; RESP 16; TEMP 36.5; O2SAT 94
[2022-01-15] MEDS: HaloperidoL 5 MG TABLET PO (09:03)
[2022-01-15] MEDS: Divalproex Sodium ER 500 MG TAB.ER.24H PO (09:04)
[2022-01-15] MEDS: Bacitracin Oint 14 GM TUBE 1 APPL TOPICAL ×2 (09:04→16:37)
--- NOTE | 2022-01-15 15:26 | HO.PSYCHPN ---
Subjective Subjective Date of Service: 01/15/22 Reason For Visit: psychosis Interim History: pt found wandering the unit, comes with MD for interview. appears sullen, illogical, disorganized, and irritable. unable to say why he discharged and then came back. informs MD after each question that he has already answered that question. get me pissed... people have cars don't take me to the grocery store...i don't want to talk about it. tolerates interview for 5-10 minutes and then states he doesn't feel like talking and then gets up and exits the room. per staff, has largely been taking all Rx'ed medication since admission. per staff, 3-day up 01/17. difficult to engage. pacing. eating. showered. has been tachy at 135 bpm last NOC and 120 bpm today with BP 147/91. Mental Status Exam Mental Status Exam Narrative: In casual attire, not malodorous, overweight. Poor eye contact, attentive. No Tics or Tremors. No abnormal involuntary movements. Irritable,not easily engaged. Non-pressured speech, spontaneous with regular rate and rhythm, normal volume and prosody. no prolonged speech latency or dysarthria. Mood is not assessed and affect is irritable and moderately labile. no SI/HI/AVH expressed. insight/judgment impaired. Diagnostics Vital Signs (24Hr): Vital Signs - 24 hr 01/14/22 20:43 01/15/22 09:00 Temperature 97.7 F Pulse Rate 135 H 127 H Respiratory Rate 16 16 Blood Pressure 134/82 138/77 Pulse Oximetry 95 94 BMI result Body Mass Index 36.6 Labs Results: 01/11/22 Unknown 01/11/22 20:03 Medications Medications Current Medications Acetaminophen (Acetaminophen 325 Mg Tablet) 650 mg PO Q6H PRN PRN Reason: Headache/Pain Mild Scale (1-3) Al Hydroxide/Mg Hydroxide (Magnesium Hydrox/Alum Hydrox 30 Ml Oral.Susp) 30 ml PO Q6H PRN PRN Reason: Heartburn/Nausea Albuterol Sulfate (Albuterol Sulfate 90 Mcg 8 Gm Inhaler) 2 puff INHALE RQ4H PRN PRN Reason: Shortness Of Breath Last Admin: 01/14/22 19:57 Dose: 2 puff Documented by: Bacitracin (Bacitracin Oint 14 Gm Tube) 1 appl TOPICAL TID [facility]; Protocol Last Admin: 01/15/22 09:04 Dose: 1 appl Documented by: Benztropine Mesylate (Benztropine Mesylate 0.5 Mg Tablet) 0.5 mg PO BEDTIME [facility] Last Admin: 01/14/22 23:10 Dose: Not Given Documented by: Clonazepam (Clonazepam 0.5 Mg Tablet) 0.5 mg PO TID PRN PRN Reason: Anxiety Divalproex Sodium (Divalproex Sodium Er 500 Mg Tab.Er.24h) 500 mg PO TID [facility] Last Admin: 01/15/22 09:04 Dose: 500 mg Documented by: Haloperidol (Haloperidol 5 Mg Tablet) 5 mg PO TID [facility] Last Admin: 01/15/22 09:03 Dose: 5 mg Documented by: Hydroxyzine HCl (Hydroxyzine Hcl 25 Mg Tablet) 25 mg PO BEDTIME PRN PRN Reason: Anxiety Magnesium Hydroxide (Milk Of Magnesia 30 Ml Oral.Susp) 30 ml PO DAILY PRN PRN Reason: Constipation Nicotine Polacrilex (Nicotine Polacrilex 2 Mg Gum) 4 mg BUCCAL Q2H PRN PRN Reason: Nicotine Cravings Trazodone HCl (Trazodone Hcl 50 Mg Tablet) 50 mg PO BEDTIME PRN PRN Reason: Insomnia Allergies Allergies Allergy/AdvReac Type Severity Reaction Status Date / Time No Known Allergies Allergy Verified 01/11/22 18:38 [No Known Allergies*] Assessment & Plan Assessment & Plan (1) Schizophrenia, paranoid, chronic with acute exacerbation: Status: Acute Code(s): F20.0 - Paranoid schizophrenia Plan Nura is a 26 y.o. male who presents with symptoms of paranoid delusions, AH, depressed mood, and isolative behaviors. He has a hx of multiple inpatient admissions, hx of being commited via section 8 during previous M5 admission. He re-presented to [facility] after being discharged the same day due to feeling like he left prematurely, paranoid, endorsed AH. Has DMH and OP psych providers. Hx of paranoid delusional thoughts about his neighbors wanting to harm him. Continue below plan: 01/14/22 add clonazepam 0.5 mg TID prn anxiety (on in past) resume medication regimen from previous admission. Q15 min safety checks, CV Monitor response to medications. Monitor for safety in the milieu. Discharge on stabilization. Patient seen. Chart reviewed. Discussed with team. Obtain collateral contact info?as needed I spent __25____ minutes with the patient and/or on the patient floor today, greater than?50% of which was spent counseling/coordinating care. Reason for contiued inpatient stay Substantial Risk for: inability to function and rapid decompensation
[2022-01-15 22:50] VITALS: BP 132/68; PULSE 138; RESP 18; O2SAT 94
[2022-01-16 08:00] VITALS: BP 131/71; PULSE 92; RESP 16; TEMP 36.9; O2SAT 97
--- NOTE | 2022-01-16 11:50 | HO.PSYCHPN ---
Subjective Subjective Date of Service: 01/16/22 Reason For Visit: psychosis Interim History: pt found pacing the halls. initially says he will talk to MD, doesn't come to interview room but keeps walking down the llamas. MD walks with him. he asks when he can go, says he needs to pay his rent, etc, etc, as per last admission. notes we may file for the court and that his 3-day is up tomorrow. he seems to acknowledge the possibility of court involvement without obvious reaction, then states he does not wish to speak with MD, ending the interview. per staff, 3-day up tomorrow. refusing all meds now. slept until 0430, up ntil 0500, then back to sleep for a time. Mental Status Exam Mental Status Exam Narrative: In casual attire, not malodorous, overweight. Poor eye contact, attentive. No Tics or Tremors. No abnormal involuntary movements. Irritable,not easily engaged. Non-pressured speech, spontaneous with regular rate and rhythm, normal volume and prosody. no prolonged speech latency or dysarthria. Mood is not assessed and affect is irritable and minimally labile. no SI/HI/AVH expressed. insight/judgment impaired. Diagnostics Vital Signs (24Hr): Vital Signs - 24 hr 01/15/22 22:50 Pulse Rate 138 H Respiratory Rate 18 Blood Pressure 132/68 Pulse Oximetry 94 BMI result Body Mass Index 36.6 Labs Results: 01/11/22 Unknown 01/11/22 20:03 Medications Medications Current Medications Acetaminophen (Acetaminophen 325 Mg Tablet) 650 mg PO Q6H PRN PRN Reason: Headache/Pain Mild Scale (1-3) Al Hydroxide/Mg Hydroxide (Magnesium Hydrox/Alum Hydrox 30 Ml Oral.Susp) 30 ml PO Q6H PRN PRN Reason: Heartburn/Nausea Albuterol Sulfate (Albuterol Sulfate 90 Mcg 8 Gm Inhaler) 2 puff INHALE RQ4H PRN PRN Reason: Shortness Of Breath Last Admin: 01/14/22 19:57 Dose: 2 puff Documented by: Bacitracin (Bacitracin Oint 14 Gm Tube) 1 appl TOPICAL TID [facility]; Protocol Last Admin: 01/16/22 08:56 Dose: Not Given Documented by: Benztropine Mesylate (Benztropine Mesylate 0.5 Mg Tablet) 0.5 mg PO BEDTIME ON [facility] Last Admin: 01/15/22 23:30 Dose: Not Given Documented by: Clonazepam (Clonazepam 0.5 Mg Tablet) 0.5 mg PO TID PRN PRN Reason: Anxiety Divalproex Sodium (Divalproex Sodium Er 500 Mg Tab.Er.24h) 500 mg PO TID ON [facility] Last Admin: 01/16/22 08:46 Dose: Not Given Documented by: Haloperidol (Haloperidol 5 Mg Tablet) 5 mg PO TID ON [facility] Last Admin: 01/16/22 08:46 Dose: Not Given Documented by: Hydroxyzine HCl (Hydroxyzine Hcl 25 Mg Tablet) 25 mg PO BEDTIME PRN PRN Reason: Anxiety Magnesium Hydroxide (Milk Of Magnesia 30 Ml Oral.Susp) 30 ml PO DAILY PRN PRN Reason: Constipation Nicotine Polacrilex (Nicotine Polacrilex 2 Mg Gum) 4 mg BUCCAL Q2H PRN PRN Reason: Nicotine Cravings Trazodone HCl (Trazodone Hcl 50 Mg Tablet) 50 mg PO BEDTIME PRN PRN Reason: Insomnia Allergies Allergies Allergy/AdvReac Type Severity Reaction Status Date / Time No Known Allergies Allergy Verified 01/11/22 18:38 [No Known Allergies*] Assessment & Plan Assessment & Plan (1) Schizophrenia, paranoid, chronic with acute exacerbation: Status: Acute Code(s): F20.0 - Paranoid schizophrenia Plan Nura is a 26 y.o. male who presents with symptoms of paranoid delusions, AH, depressed mood, and isolative behaviors. He has a hx of multiple inpatient admissions, hx of being commited via section 8 during previous admission. He re-presented to [facility] ED after being discharged the same day due to feeling like he left prematurely, paranoid, endorsed AH. Has DMH and OP psych providers. Hx of paranoid delusional thoughts about his neighbors wanting to harm him. Continue below plan: 01/14/22 add clonazepam 0.5 mg TID prn anxiety (on in past) resume medication regimen from previous admission. Q15 min safety checks, CV Monitor response to medications. Monitor for safety in the milieu. Discharge on stabilization. Patient seen. Chart reviewed. Discussed with team. Obtain collateral contact info?as needed file for commitment versus discharge tomorrow. I spent ___35___ minutes with the patient and/or on the patient floor today, greater than?50% of which was spent counseling/coordinating care. Reason for contiued inpatient stay Substantial Risk for: inability to function and rapid decompensation
[2022-01-16 20:54] VITALS: BP 128/80; PULSE 126; RESP 18; O2SAT 99
[2022-01-17] MEDS: HaloperidoL 5 MG TABLET PO (06:24)
[2022-01-17] MEDS: Divalproex Sodium ER 500 MG TAB.ER.24H PO (06:24)
--- NOTE | 2022-01-17 11:21 | PM.PSYDC ---
DS: Providers Provider Date of Service: 01/17/22 Date of admission: 01/12/22 14:58 Primary care physician: None Physician DS: Diagnosis Discharge Diagnosis (1) Schizophrenia, paranoid, chronic with acute exacerbation: Status: Acute DS: Medications Discharge Medications Home Medications: Previous Rx's Medication Instructions Recorded albuterol sulfate 90 mcg/actuation 2 puff INHALATION RQ4H PRN 30 Days 01/11/22 aerosol inhaler (Ventolin HFA) #1 g benztropine 0.5 mg tablet 0.5 mg PO BEDTIME 30 Days #30 tab 01/11/22 divalproex 500 mg tablet,extended 500 mg PO BEDTIME 30 Days #30 tab 01/11/22 release 24 hr haloperidol 5 mg tablet 5 mg PO BEDTIME 30 Days #30 tab 01/11/22 Mental Status Exam Mental Status Exam Narrative: In casual attire, not malodorous, overweight. Poor eye contact, attentive. No Tics or Tremors. No abnormal involuntary movements. Irritable,not easily engaged. Non-pressured speech, spontaneous with regular rate and rhythm, normal volume and prosody. no prolonged speech latency or dysarthria. Mood is fine, and affect is irritable and minimally labile. no SI/HI/AVH. insight/judgment impaired. Data Data Completed and Pending Completed studies during hospitalization [Text1]: 01/11/22 01/11/22 01/11/22 20:02 20:03 20:03 WBC RBC Hgb Hct MCV MCH MCHC RDW Plt Count MPV Immature Gran % (Auto) Neut % (Auto) Lymph % (Auto) [place] % (Auto) Eos % (Auto) Baso % (Auto) Lymph # (Auto) [place] # (Auto) Eos # (Auto) Baso # (Auto) Abs Immat Gran (auto) Absolute Neuts (auto) Absolute Nucleated RBC Nucleated RBC % (auto) Sodium 138 Potassium 3.9 Chloride 103 Carbon Dioxide 25 Anion Gap 14 BUN 9 Creatinine 0.80 Estim Creat Clear Calc 164.8 Estimated GFR > 60 Random Glucose 128 H D Calcium 9.5 D Magnesium 2.0 Total Bilirubin 0.5 AST 41 H ALT 87 H Alkaline Phosphatase 102 Total Protein 8.1 H Albumin 4.6 Urine Color Urine Appearance Urine pH Ur Specific [place] Urine Protein Urine Glucose (UA) Urine Ketones Urine Blood Urine Nitrite Ur Leukocyte Esterase Urine RBC Urine WBC Ur Squamous Epith Cells Urine Bacteria Urine Opiates Screen Not Detected Urine Fentanyl Screen Not Detected Ur Barbiturates Screen Not Detected Ur Phencyclidine Scrn Not Detected Ur Amphetamines Screen Not Detected U Benzodiazepines Scrn Not Detected Urine Cocaine Screen Not Detected U Marijuana (THC) Screen Not Detected COVID-19 (TUSHAR) Negative COVID-19 Clin Com See Note 01/11/22 01/11/22 01/12/22 20:03 Unknown 09:23 WBC 10.1 RBC 5.06 Hgb 15.0 Hct 42.4 MCV 83.8 MCH 29.6 MCHC 35.4 RDW 11.8 Plt Count 321 MPV 10.0 Immature Gran % (Auto) 0.5 H Neut % (Auto) 56.6 Lymph % (Auto) 34.2 [place] % (Auto) 7.1 Eos % (Auto) 1.2 Baso % (Auto) 0.4 Lymph # (Auto) 3.5 [place] # (Auto) 0.7 Eos # (Auto) 0.1 Baso # (Auto) 0.0 Abs Immat Gran (auto) 0.05 H Absolute Neuts (auto) 5.7 Absolute Nucleated RBC 0.000 Nucleated RBC % (auto) 0.0 Sodium Potassium Chloride Carbon Dioxide Anion Gap BUN Creatinine Estim Creat Clear Calc Estimated GFR Random Glucose Calcium Magnesium Total Bilirubin AST ALT Alkaline Phosphatase Total Protein Albumin Urine Color STRAW Urine Appearance CLEAR Urine pH 6.0 Ur Specific [place] 1.025 Urine Protein NEG Urine Glucose (UA) NEG Urine Ketones 5 Urine Blood TRACE Urine Nitrite NEG Ur Leukocyte Esterase NEG Urine RBC 0-2 Urine WBC 0-2 Ur Squamous Epith Cells TRACE Urine Bacteria NONE Urine Opiates Screen Urine Fentanyl Screen Ur Barbiturates Screen Ur Phencyclidine Scrn Ur Amphetamines Screen U Benzodiazepines Scrn Urine Cocaine Screen U Marijuana (THC) Screen COVID-19 (TUSHAR) Negative COVID-19 Clin Com See Note DS: Summary Hospital Course Hospital Course: per 01/12 admission note: Nura is a 26 y.o. male who carries a dx of paranoid schizophrenia. He presented to [facility] ED on 01/11/22 after discharge from [facility] M[facility] on the same day after signing a 3 day notice. Pt reported feeling paranoid, ?feels like people are talking about him,? and disclosed AH. Per ED clinician, pt reported he was not ready to have been discharged today. Has DMH and ACCS services through [facility]. No Catarino's order. Hx of med non-adherence. I evaluated the pt this afternoon and during interview pt is fixated on his rent, as he says it was supposed to have been paid by [facility] ACCS team while he was at the hospital, however denies that this was done. Says he is back at the hospital because he feels ?pressure from bad people? and has ?anxious.? Pt states ?I dont feel good mentally,? has ?bad thoughts.? Pt reports he is med nonadherent because he feels a ?pressure? on the left side of his head and he doesnt like that feeling. Pt reports sleep is poor, as he wakes up throughout the night. Pt denies SI/SIB/HI upon inquiry and says he feels safe. He requests a single room, asks to sleep in the sensory room. Past Psychiatric History: -He has a longstanding history of paranoid schizophrenia and history of medication noncompliance.? In the past court order had to be obtained for 1 of his admissions. Very little to no insight into his problems.? He denies any suicidal ideations or history of attempts. His apartment in [place] is managed by [facility] and he is able to return there upon discharge.? In the past he has been on Invega, Risperdal and trazodone -Hx of numerous hospitalization with very poor post discharge follow-up and medication noncompliance ? Medical Evaluation [facility]ed[facility] History? Schizophrenia, paranoid, chronic with acute exacerbation Family History: -Both parents with substance use. -There is history of schizophrenia in the family. Social History: Pt raised by extended family. Not close to bio mother or father. He was born in [place], in [place] for several years. He does have cousin and aunt close to him. Not working, on SSI as primary source of income. 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 Substance History: Denies Trauma History: Pt identifies not growing up with bio parents as traumatic. 01/13: pt difficult to engage; irritable, guarded, not willing to engage in full conversation, pacing. asks for bacitracin ointment for 1/4 inch scratch on back of neck, slightly red, reports tender, not open, and no oozing.? 01/14: pt anxious, irritable, guarded, difficult to engage but tolerates brief interaction. 01/15: pt found wandering the unit, comes with MD for interview.? appears sullen, illogical, disorganized, and irritable.? unable to say why he discharged and then came back.? informs MD after each question that he has already answered that question.? get me pissed...? people have cars don't take me to the grocery store...i don't want to talk about it. ? tolerates interview for 5-10 minutes and then states he doesn't feel like talking and then gets up and exits the room. per staff, has largely been taking all Rx'ed medication since admission.? per staff, 3-day up 01/17.? difficult to engage.? pacing.? eating.? showered.? has been tachy at 135 bpm last NOC and 120 bpm today with BP 147/91. 01/16: pt found pacing the halls.? initially says he will talk to MD, doesn't come to interview room but keeps walking down the llamas.? MD walks with him.? he asks when he can go, says he needs to pay his rent, etc, etc, as per last admission.? notes we may file for the court and that his 3-day is up tomorrow.? he seems to acknowledge the possibility of court involvement without obvious reaction, then states he does not wish to speak with MD, ending the interview.? per staff, 3-day up tomorrow.? refusing all meds now.? slept until 0430, up ntil 0500, then back to sleep for a time. 01/17: no change in presentation. refused all meds in the past 24 hours aside from this morning. not attending groups. upset at [employer] last night for asnking him a security question, his mother's maiden name, which he found intrusive. pacing and agitated afterward. ordered belarusian take-out and then vomited it up afterward. slept about 4 hours overnight. Precis: essentially identical course to most recent admission. not dangerous, asking for help, then not compliant with recommended treatment, then demanding discharge, then discharging on the day of maturation of his 3-day notice as there are insufficient grounds upon which to file for commitment. no medication changes made. Time Spent with Patient Time attestation: Total time spent providing and/or coordinating discharge services: Time spent: Greater than 30 minutes Discharge Plan Discharge Patient Disposition: Home, Self-Care Discharge Diagnosis: Schizoaffective Disorder Referrals: DR. KEITA [Other] - 1 Week Center,[facility] [Physician] - 1 Week (Walk in hours are Saturday through Saturday 8:30am to 4pm) Discharge Medications: Continued albuterol sulfate [Ventolin HFA] 90 mcg/actuation Hfa Aerosol Inhaler 2 puff inhalation RQ4H PRN (Reason: Shortness Of Breath) 30 Days Qty: 1 0RF benztropine 0.5 mg Tablet 0.5 mg PO BEDTIME 30 Days Qty: 30 0RF haloperidol 5 mg Tablet 5 mg PO BEDTIME 30 Days Qty: 30 0RF divalproex 500 mg Tablet Extended Release 24 Hr 500 mg PO BEDTIME 30 Days Qty: 30 0RF Discharge Orders: Discharge Order (Routine); Ordered 01/17/22 Ordered By: Dashawn Riojas Diet: advance to usual diet Activity on Discharge: As tolerated Stand Alone Forms: Patient Portal Discharge page, Community Support Care Plan Goals: remain safe and stable in outpatient treatment setting Health Concerns: obesity Plan of Treatment: take medications as prescribed, attend appointments as scheduled Assessment: not at imminent risk of harm to self or others Discharge Date/Time: 01/17/22 12:00
--- NOTE | 2022-01-17 11:35 | PC.NURSE ---
Nura is alert, oriented to day, date, time. He denies ideation, plan or intent to harm himself or others. He denies auditory or visual hallucinations although at times he appears to be responding to internal stimuli. He reports good appetite, sleep within normal limits. He denies physical complaint.
== END 2022-01-17 12:00 | disposition home or self-care (01) | DRG 885 ==
LOC: HO.ED 01-12 11:07 → HO.PADLT16 01-12 15:06
PROVIDERS: Physician Assistant; Admitting Provider Psychiatry & Neurology Psychiatry; Emergency Provider Emergency Medicine Emergency Medical Services; Visit Provider Psychiatry & Neurology Psychiatry
DX: F20.0 Paranoid schizophrenia (principal); Z91.14 Patient's other noncompliance with medication regimen; Z20.822 Contact with and (suspected) exposure to COVID-19; Z87.891 Personal history of nicotine dependence; Z79.899 Other long term (current) drug therapy
CPT/HCPCS: 80053; 80307; 81001; 83735; 85025; 87635; 93005; 99284; 99285

== ENCOUNTER 2022-01-21 03:14 | Emergency (ER) | payer MEDICARE, MEDICAID, SELFPAY ==
[2022-01-21 03:23] VITALS: BP 136/90; PULSE 98; RESP 18; TEMP 36.7; O2SAT 98; BMI 37.8
[2022-01-21 07:35] VITALS: BP 154/87; PULSE 104; RESP 18; O2SAT 98
--- NOTE | 2022-01-21 07:37 | PC.NURSE ---
pt reports generalized depression. denies that he's off any meds. denies SI. reports rectal bleeding since just while waiting in the [place]. i don't want the doctor to look
--- NOTE | 2022-01-21 08:21 | ED.PSYCH ---
HPI - Psych General Chief Complaint: Psychiatric Symptoms Stated Complaint: depression Time Seen by Provider: 01/21/22 08:19 History of Present Illness HPI Narrative: Patient is a 26-year-old male with having depression patient denies any suicidal homicidal ideations. Denies recreational drug use. Patient is from home not sure why he is depressed. He does have a history of schizophrenia he is on Depakote. Related Data Previous Rx's Medication Instructions Recorded albuterol sulfate 90 mcg/actuation 2 puff INHALATION RQ4H PRN 30 Days 01/11/22 aerosol inhaler (Ventolin HFA) #1 g benztropine 0.5 mg tablet 0.5 mg PO BEDTIME 30 Days #30 tab 01/11/22 divalproex 500 mg tablet,extended 500 mg PO BEDTIME 30 Days #30 tab 01/11/22 release 24 hr haloperidol 5 mg tablet 5 mg PO BEDTIME 30 Days #30 tab 01/11/22 Allergies Allergy/AdvReac Type Severity Reaction Status Date / Time No Known Allergies Allergy Verified 01/21/22 07:35 [No Known Allergies*] Review of Systems Review of Systems: No SI HI. No chest pain or shortness of breath denies recreational drug use Yes all other systems are reviewed and are negative PMFSH Past Medical History Attestation statement: The following information was validated with the patient. Medical History Schizophrenia, paranoid, chronic with acute exacerbation Social History Social History Household Members: None Household Members Other:: 0 Housing: Apartment Do you presently have visiting nurse or other home services: Yes Unable to assess alcohol history related to: Refusing to respond Alcohol intake: unknown Patient Tobacco Use Status: Former Tobacco user Tobacco use type: Cigarette e-Cigarette/Vaping Use: Never Used Second Hand Smoke Exposure: Yes Substance Use Type: Marijuana Advance Directives: No Healthcare Proxy: No Guardian: No service: No Sexual orientation: Decline to Answer Physical Exam Vital Signs: Vital Signs: Last Vital Signs Temp 98.1 F 01/21/22 12:13 Pulse 90 01/21/22 12:13 Resp 19 01/21/22 12:13 BP 128/76 01/21/22 12:13 Pulse Ox 94 01/21/22 12:13 BMI result Body Mass Index 37.8 Appearance: Alert. Oriented X3. No acute distress. Eyes: Pupils equal, round and reactive to light. ENT: Pharynx normal. Neck: Normal inspection. Neck supple. No lymph nodes noted. No crepitus CVS: Normal heart rate and rhythm. Pulses normal. Normal S1 and S2 Respiratory: No respiratory distress. Breath sounds normal. No Wheezing. No rales Abdomen: Soft and nontender. No rigidity. No distention. good BS x4 Skin: Skin warm and dry. Normal skin color. Normal skin turgor. Extremities: No lower extremity edema. Neurovascular intact to all extremities. No Lacerations. No Rash Neuro: Oriented X 3. No motor deficit. No sensory deficit. Moving all extermities. No slurred speech MDM - Psych MDM Narrative Medical decision making narrative: Well-appearing not acute distress. Awaiting crisis evaluation Patient evaluated by crisis. Feel comfortable with discharge. Currently in stable condition. Medical Records Attestation: I reviewed the patient's medical records. Lab Data Attestation: I reviewed the patient's lab results. Result diagrams: 01/21/22 08:39 01/21/22 08:39 Labs: Lab Results 01/21/22 01/21/22 01/21/22 Range/Units 08:39 08:39 08:39 WBC 10.7 (4.8-10.8) X10*3/uL RBC 4.66 (4.60-5.80) X10*6/uL Hgb 13.8 L (14.0-18.0) g/dl Hct 40.3 L (42.0-52.0) % MCV 86.5 (80.0-98.0) fL MCH 29.6 (27.0-33.0) pg MCHC 34.2 (31.0-36.0) g/dl RDW 12.4 (11.0-16.0) % Plt Count 271 (160-400) X10*3/uL MPV 9.9 (9.4-12.4) fL Immature Gran % (Auto) 0.4 (0.0-0.4) % Neut % (Auto) 53.2 (45-73) % Lymph % (Auto) 37.8 (20-40) % [place] % (Auto) 6.3 (2-11) % Eos % (Auto) 1.8 (0-4) % Baso % (Auto) 0.5 (0-2) % Lymph # (Auto) 4.0 (1.2-4.9) X10*3/uL [place] # (Auto) 0.7 (0.1-1.2) X10*3/uL Eos # (Auto) 0.2 (0.0-0.4) X10*3/uL Baso # (Auto) 0.1 (0.0-0.2) X10*3/uL Abs Immat Gran (auto) 0.04 H (0.00-0.03) X10*3/uL Absolute Neuts (auto) 5.7 (2.0-8.3) x10*3/uL Absolute Nucleated RBC 0.000 (0.0-0.012) X10*3/uL Nucleated RBC % (auto) 0.0 (0.0-0.2) /100WBC Sodium 139 (135-145) mmol/L Potassium 3.7 (3.3-5.1) mmol/L Chloride 105 (96-108) mmol/L Carbon Dioxide 24 (22-29) mmol/L Anion Gap 14 (12-20) BUN 14 D (9-16) mg/dL Creatinine 0.80 (0.5-1.4) mg/dL Estim Creat Clear Calc 167.6 Estimated GFR > 60 Random Glucose 142 H (60-115) mg/dL Calcium 9.7 (8.4-10.2) mg/dL Urine Opiates Screen (Not Detect) Urine Fentanyl Screen (Not Detect) Ur Barbiturates Screen (Not Detect) Valproic Acid (50.0-100.0) mcg/mL Ur Phencyclidine Scrn (Not Detect) Ur Amphetamines Screen (Not Detect) U Benzodiazepines Scrn (Not Detect) Urine Cocaine Screen (Not Detect) U Marijuana (THC) Screen (Not Detect) COVID-19 (TUSHAR) Negative (Negative) COVID-19 Clin Com See Note 01/21/22 01/21/22 Range/Units 08:39 08:39 WBC (4.8-10.8) X10*3/uL RBC (4.60-5.80) X10*6/uL Hgb (14.0-18.0) g/dl Hct (42.0-52.0) % MCV (80.0-98.0) fL MCH (27.0-33.0) pg MCHC (31.0-36.0) g/dl RDW (11.0-16.0) % Plt Count (160-400) X10*3/uL MPV (9.4-12.4) fL Immature Gran % (Auto) (0.0-0.4) % Neut % (Auto) (45-73) % Lymph % (Auto) (20-40) % [place] % (Auto) (2-11) % Eos % (Auto) (0-4) % Baso % (Auto) (0-2) % Lymph # (Auto) (1.2-4.9) X10*3/uL [place] # (Auto) (0.1-1.2) X10*3/uL Eos # (Auto) (0.0-0.4) X10*3/uL Baso # (Auto) (0.0-0.2) X10*3/uL Abs Immat Gran (auto) (0.00-0.03) X10*3/uL Absolute Neuts (auto) (2.0-8.3) x10*3/uL Absolute Nucleated RBC (0.0-0.012) X10*3/uL Nucleated RBC % (auto) (0.0-0.2) /100WBC Sodium (135-145) mmol/L Potassium (3.3-5.1) mmol/L Chloride (96-108) mmol/L Carbon Dioxide (22-29) mmol/L Anion Gap (12-20) BUN (9-16) mg/dL Creatinine (0.5-1.4) mg/dL Estim Creat Clear Calc Estimated GFR Random Glucose (60-115) mg/dL Calcium (8.4-10.2) mg/dL Urine Opiates Screen Not Detected (Not Detect) Urine Fentanyl Screen Not Detected (Not Detect) Ur Barbiturates Screen Not Detected (Not Detect) Valproic Acid < 2.0 L (50.0-100.0) mcg/mL Ur Phencyclidine Scrn Not Detected (Not Detect) Ur Amphetamines Screen Not Detected (Not Detect) U Benzodiazepines Scrn Not Detected (Not Detect) Urine Cocaine Screen Not Detected (Not Detect) U Marijuana (THC) Screen POSITIVE H (Not Detect) COVID-19 (TUSHAR) (Negative) COVID-19 Clin Com Discharge Plan Discharge Clinical Impression: Schizophrenia, paranoid, chronic with acute exacerbation, Suicidal ideation, Depression Patient Disposition: Home, Self-Care Prescriptions: No Action albuterol sulfate [Ventolin HFA] 90 mcg/actuation Hfa Aerosol Inhaler 2 puff inhalation RQ4H PRN (Reason: Shortness Of Breath) 30 Days Qty: 1 0RF benztropine 0.5 mg Tablet 0.5 mg PO BEDTIME 30 Days Qty: 30 0RF haloperidol 5 mg Tablet 5 mg PO BEDTIME 30 Days Qty: 30 0RF divalproex 500 mg Tablet Extended Release 24 Hr 500 mg PO BEDTIME 30 Days Qty: 30 0RF
[2022-01-21 08:24] VITALS: BP 130/71; PULSE 99; RESP 18; TEMP 37; O2SAT 95
[2022-01-21 08:45] LABS: MANUAL DIFF FLAG NO
[2022-01-21 08:47] LABS: Basophils Absolute Auto 0.1 X10*3/uL (0.0-0.2); Basophils Percent Auto 0.5 % (0-2); Eosinophils Absolute Auto 0.2 X10*3/uL (0.0-0.4); Eosinophils Percent Auto 1.8 % (0-4); Hematocrit 40.3 % (42.0-52.0); Hemoglobin 13.8 g/dl (14.0-18.0); Imm Gran Abs Auto 0.04 X10*3/uL (0.00-0.03); Imm Gran Pct Auto 0.4 % (0.0-0.4); Lymphocytes Percent Auto 37.8 % (20-40); Mean Corpuscular HGB Conc 34.2 g/dl (31.0-36.0); Mean Corpuscular Hemoglobin 29.6 pg (27.0-33.0); Mean Corpuscular Volume 86.5 fL (80.0-98.0); Mean Platelet Volume 9.9 fL (9.4-12.4); Monocytes Absolute Auto 0.7 X10*3/uL (0.1-1.2); Monocytes Percent Auto 6.3 % (2-11); Neutrophils Absolute Auto 5.7 x10*3/uL (2.0-8.3); Neutrophils Percent Auto 53.2 % (45-73); Platelet Count 271 X10*3/uL (160-400); Red Blood Count 4.66 X10*6/uL (4.60-5.80); Red Cell Distribution Width 12.4 % (11.0-16.0); White Blood Count 10.7 X10*3/uL (4.8-10.8)
[2022-01-21 09:00] LABS: IDNOW Serial# 16C4AD1C
[2022-01-21 09:01] LABS: COVID-19 Test Negative (Negative)
[2022-01-21 09:06] LABS: Anion Gap 14 (12-20); Blood Urea Nitrogen 14 mg/dL (9-16); Calcium 9.7 mg/dL (8.4-10.2); Carbon Dioxide 24 mmol/L (22-29); Chloride 105 mmol/L (96-108); Creatinine Clr Calc Pharmacy 167.6; Estimated Glomerular Filt Rate > 60; Glucose Random 142 mg/dL (60-115); Potassium 3.7 mmol/L (3.3-5.1); Sodium 139 mmol/L (135-145)
[2022-01-21 09:08] LABS: Amphetamine Screen Urine Not Detected (Not Detect); Barbiturates, Urine Not Detected (Not Detect); Benzodiazepines Screen Urine Not Detected (Not Detect); Cannabinoid Screen Urine POSITIVE (Not Detect); Cocaine Screen Urine Not Detected (Not Detect); Fentanyl, urine Not Detected (Not Detect); Opiate Screen Urine Not Detected (Not Detect); Phencyclidine Screen Urine Not Detected (Not Detect)
[2022-01-21 09:17] LABS: Valproate < 2.0 mcg/mL (50.0-100.0)
--- NOTE | 2022-01-21 11:03 | PC.NURSE ---
PT EXPRESSING FRUSTRATION, WOULD LIKE TO GO TO [facility] OR [facility]. PT EDUCATED ABOUT HIGH CENSUS OF CRISIS PTS, NO ROOM IN [facility]. AWAITING CRISIS EVAL. CONTINUES TO DENY SI/HI. TOLERATING PO W/O ISSUE, GIVEN FOOD.
[2022-01-21 12:13] VITALS: BP 128/76; PULSE 90; RESP 19; TEMP 36.7; O2SAT 94
--- NOTE | 2022-01-21 14:03 | PC.NURSE ---
care team at bedside for eval.
--- NOTE | 2022-01-21 19:51 | PC.NURSE ---
patient sitting in hallway watching phone.
[2022-01-21] MEDS: Acetaminophen 325 MG TABLET 975 MG PO (22:52)
[2022-01-21 23:14] VITALS: BP 127/66; PULSE 84; RESP 16; O2SAT 96
== END 2022-01-22 08:56 | disposition home or self-care (01) ==
PROVIDERS: Emergency Medicine Emergency Medical Services; Emergency Provider Emergency Medicine Emergency Medical Services
DX: F33.1 Major depressive disorder, recurrent, moderate (principal); F20.0 Paranoid schizophrenia; R45.851 Suicidal ideations; Z20.822 Contact with and (suspected) exposure to COVID-19; F17.210 Nicotine dependence, cigarettes, uncomplicated; Z71.6 Tobacco abuse counseling; Z79.899 Other long term (current) drug therapy
CPT/HCPCS: 36415; 80048; 80164; 80307; 85025; 87635; 99284

== ENCOUNTER 2022-01-24 07:11 | Emergency (ER) | payer MEDICARE, MEDICAID, SELFPAY ==
[2022-01-24 07:47] VITALS: BP 113/80; PULSE 116; TEMP 36.8; O2SAT 95; BMI 37.3
--- NOTE | 2022-01-24 07:59 | ED.GENADULT ---
HPI - General Adult General Chief complaint: General Medical Stated complaint: ear infection/diarrhea/fever like symptoms Time Seen by Provider: 01/24/22 07:59 Source: patient Mode of arrival: ambulatory Limitations: no limitations History of Present Illness HPI narrative: Patient states that he has had diarrhea for 7 days, notices some blood when her pushes. At times he feels chills. There is some abdominal pain. He states that his diarrhea is watery. In addition he is hearing voices, denies suicidal or homicidal ideation. The voices are not telling him to do anything. Onset (ago): week(s) Severity: mild Associated symptoms: other (diarrhea and ear pain for 7 days) Related Data Previous Rx's Medication Instructions Recorded albuterol sulfate 90 mcg/actuation 2 puff INHALATION RQ4H PRN 30 Days 01/11/22 aerosol inhaler (Ventolin HFA) #1 g benztropine 0.5 mg tablet 0.5 mg PO BEDTIME 30 Days #30 tab 01/11/22 divalproex 500 mg tablet,extended 500 mg PO BEDTIME 30 Days #30 tab 01/11/22 release 24 hr haloperidol 5 mg tablet 5 mg PO BEDTIME 30 Days #30 tab 01/11/22 ciprofloxacin HCl 0.2 % ear drops 5 drp OTIC (EARS) Q12H 7 Days #14 01/22/22 in a dropperette ea loperamide 2 mg capsule 2 mg PO Q6H PRN #20 cap 01/24/22 Allergies Allergy/AdvReac Type Severity Reaction Status Date / Time No Known Allergies Allergy Verified 01/21/22 07:35 [No Known Allergies*] Review of Systems Constitutional: Constitutional: Reports no additional constitutional complaints Eyes: Eyes: Reports no additional eye complaints ENT: Denies dizziness Cardiovascular: Cardiovascular: Reports no additional cardiovascular complaints Respiratory: Respiratory: Reports as per HPI Gastrointestinal: Gastrointestinal: Reports no additional gastrointestinal complaints Musculoskeletal: Musculoskeletal: Reports no additional musculoskeletal complaints Integumentary/Breasts: Skin/Breast: Denies rash Neurologic: Reports system reviewed and no additional complaints, except as documented, Denies dizziness and Denies Sensory deficit (Neuro) Psychiatric: Psychiatric: Denies anxiety PMFSH Past Medical History Medical History Schizophrenia, paranoid, chronic with acute exacerbation Social History Social History Household Members: None Household Members Other:: 0 Housing: Apartment Do you presently have visiting nurse or other home services: Yes Unable to assess alcohol history related to: Refusing to respond Alcohol intake: unknown Patient Tobacco Use Status: Current everyday Tobacco user Tobacco use type: Cigarette e-Cigarette/Vaping Use: Never Used Second Hand Smoke Exposure: Yes Use of substances other than those prescribed or required for medical reasons: Yes Substance Use Type: Marijuana Substance Use Frequency: Occasionally Advance Directives: No Advance Directives Information Provided: No service: No Sexual orientation: Decline to Answer Physical Exam ED Vital Signs: Vital Signs - 24 hr 01/24/22 07:47 01/24/22 08:28 Temperature 98.3 F 98.5 F Pulse Rate 116 H 114 H Respiratory Rate 15 Blood Pressure 113/80 119/74 Pulse Oximetry 95 99 BMI result Body Mass Index 37.3 Const General: comfortable Nutritional Appearance: average body habitus Orientation/consciousness: oriented to person Limitations: other limitations (paranoid schizophrenia) HENMT Other: left ear canal with discharge and slight erythema with pain Head: Yes normal to inspection General nose exam: Normal external nose present Mouth: Normal oral and palatal mucosa present and oropharynx normal Throat: Yes posterior oropharynx normal Eyes General: appearance normal, both eyes and all related structures Neck Neck: Yes normal visual inspection Chest Chest palpation & inspection: normal inspection of the chest Resp Auscultation: clear to auscultation bilaterally Cardio Jugular venous distension: no JVD Rate: regular rate Rhythm: regular rhythm Heart sounds: S1 normal heart sound present and S2 normal heart sound present GI Other: soft diffusely tender Palpation (GI): Soft to palpation, nontender and No hepatosplenomegaly present Auscultation: normal bowel sounds General: Yes no CVA tenderness Back/Spine/Pelvis Back: no CVA tenderness Skin General skin exam: no rashes or lesions noted Neuro General: oriented to person Cranial nerves: Yes CN's II-XII intact bilaterally Motor exam (neuro): 5/5 motor strength present throughout Sensory Exam: No Sensory deficit (Neuro) Extrem General: Yes normal to inspection Psych Other: Flat affect, paranoid, calm Course Reevaluation(s) Reevaluation #1: seen and cleared by crisis, will start loperamide for his diarrhea as it doesn't appear this is infectious cause Time: 14:48 Medical Decision Making Lab Data Result diagrams: 01/24/22 08:42 01/24/22 08:42 Labs: Lab Results 01/24/22 01/24/22 01/24/22 Range/Units 08:42 08:42 09:07 WBC 8.0 (4.8-10.8) X10*3/uL RBC 5.00 (4.60-5.80) X10*6/uL Hgb 14.7 (14.0-18.0) g/dl Hct 43.3 (42.0-52.0) % MCV 86.6 (80.0-98.0) fL MCH 29.4 (27.0-33.0) pg MCHC 33.9 (31.0-36.0) g/dl RDW 12.3 (11.0-16.0) % Plt Count 256 (160-400) X10*3/uL MPV 9.8 (9.4-12.4) fL Immature Gran % (Auto) 0.4 (0.0-0.4) % Neut % (Auto) 78.0 H (45-73) % Lymph % (Auto) 15.0 L (20-40) % [place] % (Auto) 4.5 (2-11) % Eos % (Auto) 1.9 (0-4) % Baso % (Auto) 0.2 (0-2) % Lymph # (Auto) 1.2 (1.2-4.9) X10*3/uL [place] # (Auto) 0.4 (0.1-1.2) X10*3/uL Eos # (Auto) 0.2 (0.0-0.4) X10*3/uL Baso # (Auto) 0.0 (0.0-0.2) X10*3/uL Abs Immat Gran (auto) 0.03 (0.00-0.03) X10*3/uL Absolute Neuts (auto) 6.3 (2.0-8.3) x10*3/uL Absolute Nucleated RBC 0.000 (0.0-0.012) X10*3/uL Nucleated RBC % (auto) 0.0 (0.0-0.2) /100WBC Sodium 137 (135-145) mmol/L Potassium 3.9 (3.3-5.1) mmol/L Chloride 103 (96-108) mmol/L Carbon Dioxide 25 (22-29) mmol/L Anion Gap 13 (12-20) BUN 10 (9-16) mg/dL Creatinine 0.88 (0.5-1.4) mg/dL Estim Creat Clear Calc 151.1 Estimated GFR > 60 Random Glucose 95 (60-115) mg/dL Calcium 9.5 (8.4-10.2) mg/dL Stool Leukocytes, Qual NEGATIVE (NEGATIVE) Stl Giardia Antigen C. difficile Tox B Gene (Negative) COVID-19 (TUSHAR) (Negative) COVID-19 Clin Com 01/24/22 01/24/22 01/24/22 Range/Units 09:07 09:07 09:41 WBC (4.8-10.8) X10*3/uL RBC (4.60-5.80) X10*6/uL Hgb (14.0-18.0) g/dl Hct (42.0-52.0) % MCV (80.0-98.0) fL MCH (27.0-33.0) pg MCHC (31.0-36.0) g/dl RDW (11.0-16.0) % Plt Count (160-400) X10*3/uL MPV (9.4-12.4) fL Immature Gran % (Auto) (0.0-0.4) % Neut % (Auto) (45-73) % Lymph % (Auto) (20-40) % [place] % (Auto) (2-11) % Eos % (Auto) (0-4) % Baso % (Auto) (0-2) % Lymph # (Auto) (1.2-4.9) X10*3/uL [place] # (Auto) (0.1-1.2) X10*3/uL Eos # (Auto) (0.0-0.4) X10*3/uL Baso # (Auto) (0.0-0.2) X10*3/uL Abs Immat Gran (auto) (0.00-0.03) X10*3/uL Absolute Neuts (auto) (2.0-8.3) x10*3/uL Absolute Nucleated RBC (0.0-0.012) X10*3/uL Nucleated RBC % (auto) (0.0-0.2) /100WBC Sodium (135-145) mmol/L Potassium (3.3-5.1) mmol/L Chloride (96-108) mmol/L Carbon Dioxide (22-29) mmol/L Anion Gap (12-20) BUN (9-16) mg/dL Creatinine (0.5-1.4) mg/dL Estim Creat Clear Calc Estimated GFR Random Glucose (60-115) mg/dL Calcium (8.4-10.2) mg/dL Stool Leukocytes, Qual (NEGATIVE) Stl Giardia Antigen Cancelled C. difficile Tox B Gene NEGATIVE (Negative) COVID-19 (TUSHAR) Negative (Negative) COVID-19 Clin Com See Note Discharge Plan Discharge Clinical Impression: Schizophrenia, Diarrhea Patient Disposition: Home, Self-Care Instructions: Schizophrenia (ED), Acute Diarrhea (ED) Prescriptions: New loperamide 2 mg capsule 2 mg PO Q6H PRN (Reason: loose stool) Qty: 20 0RF No Action albuterol sulfate [Ventolin HFA] 90 mcg/actuation Hfa Aerosol Inhaler 2 puff inhalation RQ4H PRN (Reason: Shortness Of Breath) 30 Days Qty: 1 0RF benztropine 0.5 mg Tablet 0.5 mg PO BEDTIME 30 Days Qty: 30 0RF haloperidol 5 mg Tablet 5 mg PO BEDTIME 30 Days Qty: 30 0RF divalproex 500 mg Tablet Extended Release 24 Hr 500 mg PO BEDTIME 30 Days Qty: 30 0RF ciprofloxacin HCl 0.2 % dropperette 5 drp otic (ears) Q12H 7 Days Qty: 14 0RF Referrals: Physician,Unknown J [Primary Care Provider] - 1 week
[2022-01-24 08:28] VITALS: BP 119/74; PULSE 114; RESP 15; TEMP 36.9; O2SAT 99
[2022-01-24] MEDS: NeoMYCIN/Polymyxin/HC Otic Sol BOTTLE 4 DROP EAR-LEFT (08:35)
--- NOTE | 2022-01-24 08:46 | PC.NURSE ---
pt alert and oriented, skin appropriate for ethnicity, respirations even and unlabored, pt reports having watery diarrhea x7 days, left ear pain and some abd pain, when asked the pt to give a number to his pain is currently unable to give a number. pt also reports hearing voices-states this has happened in the past, pt denies si/hi at this time, calm and cooperative.
[2022-01-24 08:49] LABS: Basophils Percent Auto 0.2 % (0-2); Eosinophils Absolute Auto 0.2 X10*3/uL (0.0-0.4); Eosinophils Percent Auto 1.9 % (0-4); Hematocrit 43.3 % (42.0-52.0); Hemoglobin 14.7 g/dl (14.0-18.0); Imm Gran Abs Auto 0.03 X10*3/uL (0.00-0.03); Imm Gran Pct Auto 0.4 % (0.0-0.4); Lymphocytes Absolute Auto 1.2 X10*3/uL (1.2-4.9); MANUAL DIFF FLAG NO; Mean Corpuscular HGB Conc 33.9 g/dl (31.0-36.0); Mean Corpuscular Hemoglobin 29.4 pg (27.0-33.0); Mean Corpuscular Volume 86.6 fL (80.0-98.0); Mean Platelet Volume 9.8 fL (9.4-12.4); Monocytes Absolute Auto 0.4 X10*3/uL (0.1-1.2); Monocytes Percent Auto 4.5 % (2-11); Neutrophils Absolute Auto 6.3 x10*3/uL (2.0-8.3); Platelet Count 256 X10*3/uL (160-400); Red Cell Distribution Width 12.3 % (11.0-16.0)
--- NOTE | 2022-01-24 09:01 | PC.NURSE ---
report given to rahul chowdary
[2022-01-24 09:06] LABS: Anion Gap 13 (12-20); Blood Urea Nitrogen 10 mg/dL (9-16); Calcium 9.5 mg/dL (8.4-10.2); Carbon Dioxide 25 mmol/L (22-29); Chloride 103 mmol/L (96-108); Creatinine Clr Calc Pharmacy 151.1; Estimated Glomerular Filt Rate > 60; Glucose Random 95 mg/dL (60-115); Potassium 3.9 mmol/L (3.3-5.1); Sodium 137 mmol/L (135-145)
[2022-01-24 09:56] LABS: Leukocytes Stool Qualitative NEGATIVE (NEGATIVE)
[2022-01-24 10:03] LABS: COVID-19 Test Negative (Negative)
[2022-01-24 11:36] LABS: CDiff Gene PCR NEGATIVE (Negative)
--- NOTE | 2022-01-24 14:33 | MHC.CARE ---
Risk Assessment: Pt presentd to [facility] for medical complainants. Pt did endorse AH resulting in Dr. Saeed consulting for assessment. Pt conitnues to endorse AH which is Pt experiences at baseline. Pt does not endorse current HI/SI. Pt stated he wanted to go to [facility]- t/w asked to elborate and Pt stated I just wanted to go but did not priove risk or goal for admissions . Pt futher stated I feel staff to go home but I just needed medication for my diarrhea . Plan for Pt to be discharge to follow up for his current providers through [facility]. Pt provided [facility] Crisis information. CARE Team consulted with Dr. Saeed.
--- NOTE | 2022-01-24 15:25 | PC.NURSE ---
client seems to be delaying discharge with long shower, given prompt. 15-20 minutes.
== END 2022-01-24 15:36 | disposition home or self-care (01) ==
PROVIDERS: Emergency Provider Emergency Medicine
DX: F25.9 Schizoaffective disorder, unspecified (principal); R19.7 Diarrhea, unspecified; R50.9 Fever, unspecified; Z20.822 Contact with and (suspected) exposure to COVID-19; Z79.899 Other long term (current) drug therapy
CPT/HCPCS: 36415; 80048; 85025; 87045; 87046; 87177; 87209; 87329; 87493; 87635; 89055; 99284

== ENCOUNTER 2022-01-31 23:04 | Emergency (ER) | payer MEDICARE, MEDICAID, SELFPAY ==
[2022-01-31 23:10] VITALS: BP 130/85; PULSE 96; RESP 18; TEMP 36.7; O2SAT 98; BMI 31.9
--- NOTE | 2022-01-31 23:33 | ED.PSYCH ---
HPI - Psych General Chief Complaint: Psychiatric Symptoms Stated Complaint: PT claims to be hearing voices Time Seen by Provider: 01/31/22 23:08 Source: patient Mode of arrival: ambulatory Limitations: no limitations History of Present Illness HPI Narrative: This is a 26-year-old male past medical history significant for paranoid schizophrenia, medication noncompliance, anxiety presenting to the emergency department with?auditory hallucinations x3 days. He tellls me hes hearing male voices saying thomas madrid and he feels like people are watching him. Patient tells me that he has been hearing voices constantly, he is hearing ?crazy things ?. He denies tactile hallucination. Denies drugs, alcohol and tobacco use. He denies suicidal and homicidal ideation. Tells me he isnt taking his meds, when I asked him why he tells me he does not now. MD complaint: hallucinations Onset (ago): day(s) (3) Duration: constant History of same: Yes Relieving factors: none Exacerbating factors: none Associated psychiatric symptoms: none Associated symptoms: denies other symptoms Treatments prior to arrival: none Related Data Previous Rx's Medication Instructions Recorded albuterol sulfate 90 mcg/actuation 2 puff INHALATION RQ4H PRN 30 Days 01/11/22 aerosol inhaler (Ventolin HFA) #1 g benztropine 0.5 mg tablet 0.5 mg PO BEDTIME 30 Days #30 tab 01/11/22 divalproex 500 mg tablet,extended 500 mg PO BEDTIME 30 Days #30 tab 01/11/22 release 24 hr haloperidol 5 mg tablet 5 mg PO BEDTIME 30 Days #30 tab 01/11/22 loperamide 2 mg capsule 2 mg PO Q6H PRN #20 cap 01/24/22 Allergies Allergy/AdvReac Type Severity Reaction Status Date / Time No Known Allergies Allergy Verified 01/31/22 23:10 [No Known Allergies*] Review of Systems Review of Systems: Constitutional : No Fever, No Chills ENT/Mouth : No Ear Pain, No Nasal Congestion, No sore throat Eyes: No Eye Pain, No Swelling, No Redness Cardiovascular : No Chest Pain, No SOB Respiratory : No Cough, No Sputum, No Dyspnea Gastrointestinal : No Nausea, No Vomiting, No Diarrhea, No Hematochezia, No Melena Genitourinary : No Dysuria, No Urinary Frequency, No Hematuria Musculoskeletal : No Myalgias Skin : No Skin Lesions, No rash Neuro : No Weakness, No Numbness, No Paresthesias, No Dizziness, No Headache Psych : positive Anxiety, No Depression, No SI/HI Heme/Lymph: No Lymphadenopathy Endocrine : No Polyuria, No Polydipsia All other systems reviewed and are negative Yes all other systems are reviewed and are negative [facility] Past Medical History Attestation statement: The following information was validated with the patient. Source: old records reviewed and nursing notes reviewed Medical History Schizophrenia, paranoid, chronic with acute exacerbation Social History Social History Household Members: None Household Members Other:: 0 Housing: Apartment Do you presently have visiting nurse or other home services: Yes Unable to assess alcohol history related to: Refusing to respond Alcohol intake: unknown Patient Tobacco Use Status: Current everyday Tobacco user Tobacco use type: Cigarette e-Cigarette/Vaping Use: Never Used Second Hand Smoke Exposure: Yes Substance Use Type: Marijuana Advance Directives: No Advance Directives Information Provided: Yes service: No Sexual orientation: Decline to Answer Physical Exam Vital Signs: Vital Signs: Last Vital Signs Temp 98.1 F 01/31/22 23:10 Pulse 96 01/31/22 23:10 Resp 18 01/31/22 23:10 BP 130/85 01/31/22 23:10 Pulse Ox 98 01/31/22 23:10 BMI result Body Mass Index 31.9 Vital signs stable. Appearance: Alert.? Oriented X3.? No acute distress.? Head: Normocephalic, atraumatic, no step-offs or deformities Eyes: Pupils equal, round and reactive to light.? ENT: Pharynx normal.? Neck: Normal inspection.? Neck supple.? CVS: Normal heart rate and rhythm.? Pulses normal.? Respiratory: No respiratory distress.? Breath sounds normal.? Abdomen: Soft and nontender.? Skin: Skin warm and dry.? Normal skin color.? Normal skin turgor.? Extremities: No lower extremity edema.? No calf ttp. 5/5 strength to bilateral upper and lower extremities Back: No midline tenderness, no C-spine tenderness, full range of motion, no CVA tenderness bilaterally Neuro: Oriented X 3.? No motor deficit.? No sensory deficit. CN 2-12 intact Course Reevaluation(s) Reevaluation #1: Slight leukocytosis however patient has no medical complaints no upper respiratory symptoms. No signs of acute infection at this time, vital signs stable. Will repeat CBC tomorrow morning. No acute electrolyte abnormalities. Urine clean. Urine toxicology negative. Ethanol negative. COVID negative. Valproic acid pending. At this time patient will be placed in physician observation to allow more time to be evaluated by the behavioral health team. At time observation started patient common cooperative no acute distress. Will continue to monitor. Time: 02:17 MDM - Psych MDM Narrative Medical decision making narrative: 2337 26 yo m presents with auditory hallucinations. Well known to our facility. Denies SI and HI. No precipitating factor. Physical exam benign Plan medical clearance and evaluation by the behavioral health team. Medical Records Attestation: I reviewed the patient's medical records. Lab Data Attestation: I reviewed the patient's lab results. Result diagrams: 02/01/22 01:49 Labs: Lab Results 02/01/22 02/01/22 02/01/22 Range/Units 00:15 00:16 00:16 Sodium (135-145) mmol/L Potassium (3.3-5.1) mmol/L Chloride (96-108) mmol/L Carbon Dioxide (22-29) mmol/L Anion Gap (12-20) BUN (9-16) mg/dL Creatinine (0.5-1.4) mg/dL Estim Creat Clear Calc Estimated GFR Random Glucose (60-115) mg/dL Calcium (8.4-10.2) mg/dL Total Bilirubin (0.0-1.0) mg/dL AST (5-37) U/L ALT (0-40) U/L Alkaline Phosphatase (39-117) U/L Total Protein (6.5-8.0) g/dL Albumin (3.5-5.0) g/dL Urine Color YELLOW Urine Appearance CLEAR Urine pH 6.0 (5.0-8.0) Ur Specific [place] 1.020 (1.005-1.025) Urine Protein NEG (NEG-TRACE) MG/DL Urine Glucose (UA) NEG (NEG) MG/DL Urine Ketones NEG (NEG) MG/DL Urine Blood TRACE (NEG) Urine Nitrite NEG (NEG) Ur Leukocyte Esterase NEG (NEG) Urine RBC 0-2 (0) /HPF Urine WBC 0-2 (0-4) /HPF Ur Squamous Epith Cells TRACE /LPF Urine Bacteria TRACE /LPF Urine Opiates Screen Not Detected (Not Detect) Urine Fentanyl Screen Not Detected (Not Detect) Ur Barbiturates Screen Not Detected (Not Detect) Ur Phencyclidine Scrn Not Detected (Not Detect) Ur Amphetamines Screen Not Detected (Not Detect) U Benzodiazepines Scrn Not Detected (Not Detect) Urine Cocaine Screen Not Detected (Not Detect) U Marijuana (THC) Screen Not Detected (Not Detect) Ethyl Alcohol mg/dL COVID-19 (TUSHAR) Negative (Negative) COVID-19 Clin Com See Note 02/01/22 02/01/22 Range/Units 01:49 01:49 Sodium 139 (135-145) mmol/L Potassium 4.0 (3.3-5.1) mmol/L Chloride 105 (96-108) mmol/L Carbon Dioxide 24 (22-29) mmol/L Anion Gap 14 (12-20) BUN 9 (9-16) mg/dL Creatinine 0.73 (0.5-1.4) mg/dL Estim Creat Clear Calc 168.6 Estimated GFR > 60 Random Glucose 99 (60-115) mg/dL Calcium 9.5 (8.4-10.2) mg/dL Total Bilirubin 0.4 (0.0-1.0) mg/dL AST 30 (5-37) U/L ALT 71 H (0-40) U/L Alkaline Phosphatase 70 D (39-117) U/L Total Protein 7.0 (6.5-8.0) g/dL Albumin 4.2 (3.5-5.0) g/dL Urine Color Urine Appearance Urine pH (5.0-8.0) Ur Specific [place] (1.005-1.025) Urine Protein (NEG-TRACE) MG/DL Urine Glucose (UA) (NEG) MG/DL Urine Ketones (NEG) MG/DL Urine Blood (NEG) Urine Nitrite (NEG) Ur Leukocyte Esterase (NEG) Urine RBC (0) /HPF Urine WBC (0-4) /HPF Ur Squamous Epith Cells /LPF Urine Bacteria /LPF Urine Opiates Screen (Not Detect) Urine Fentanyl Screen (Not Detect) Ur Barbiturates Screen (Not Detect) Ur Phencyclidine Scrn (Not Detect) Ur Amphetamines Screen (Not Detect) U Benzodiazepines Scrn (Not Detect) Urine Cocaine Screen (Not Detect) U Marijuana (THC) Screen (Not Detect) Ethyl Alcohol < 10 mg/dL COVID-19 (TUSHAR) (Negative) COVID-19 Clin Com Critical Care Time Critical Care Time Critical Care Time: No Discharge Plan Discharge Clinical Impression: Schizophrenia, paranoid, chronic with acute exacerbation Patient Disposition: Still a Patient Prescriptions: No Action albuterol sulfate [Ventolin HFA] 90 mcg/actuation Hfa Aerosol Inhaler 2 puff inhalation RQ4H PRN (Reason: Shortness Of Breath) 30 Days Qty: 1 0RF benztropine 0.5 mg Tablet 0.5 mg PO BEDTIME 30 Days Qty: 30 0RF haloperidol 5 mg Tablet 5 mg PO BEDTIME 30 Days Qty: 30 0RF divalproex 500 mg Tablet Extended Release 24 Hr 500 mg PO BEDTIME 30 Days Qty: 30 0RF loperamide 2 mg capsule 2 mg PO Q6H PRN (Reason: loose stool) Qty: 20 0RF
[2022-02-01] MEDS: HaloperidoL 5 MG TABLET PO ×2 (00:47→01:22)
[2022-02-01] MEDS: Benztropine Mesylate 0.5 MG TABLET PO (00:47)
[2022-02-01 00:58] LABS: Appearance Urine CLEAR; Color Urine YELLOW; Glucose Urine UA NEG (NEG); Leukocyte Esterase Urine NEG (NEG); Nitrite Urine NEG (NEG); UACC Culture Trigger NO; Urine Blood TRACE (NEG); Urine Ketones NEG (NEG); Urine Protein NEG (NEG-TRACE)
[2022-02-01 00:58] LABS: COVID-19 Test Negative (Negative)
--- NOTE | 2022-02-01 00:58 | PC.NURSE ---
PATIENT REPORTS HEARING VOICES AND APPEARS UPSET. PT REFUSED TO ALLOW STAFF TO DRAW BLOOD. ALEXANDER LOZANO IS AWARE AND MEDICATED PATIENT.
[2022-02-01 01:05] LABS: Bacteria Urine TRACE /LPF; RBC Urine 0-2 /HPF (0); Squamous Epithelial Cell Urine TRACE /LPF; WBC Urine 0-2 /HPF (0-4)
[2022-02-01 01:10] LABS: Amphetamine Screen Urine Not Detected (Not Detect); Barbiturates, Urine Not Detected (Not Detect); Benzodiazepines Screen Urine Not Detected (Not Detect); Cannabinoid Screen Urine Not Detected (Not Detect); Cocaine Screen Urine Not Detected (Not Detect); Fentanyl, urine Not Detected (Not Detect); Opiate Screen Urine Not Detected (Not Detect); Phencyclidine Screen Urine Not Detected (Not Detect)
[2022-02-01 01:56] LABS: Basophils Percent Auto 0.3 % (0-2); Eosinophils Absolute Auto 0.2 X10*3/uL (0.0-0.4); Eosinophils Percent Auto 1.2 % (0-4); Hemoglobin 14.1 g/dl (14.0-18.0); Imm Gran Abs Auto 0.06 X10*3/uL (0.00-0.03); Imm Gran Pct Auto 0.5 % (0.0-0.4); Lymphocytes Absolute Auto 4.3 X10*3/uL (1.2-4.9); Lymphocytes Percent Auto 35.1 % (20-40); MANUAL DIFF FLAG NO; Mean Corpuscular HGB Conc 33.6 g/dl (31.0-36.0); Mean Corpuscular Hemoglobin 28.7 pg (27.0-33.0); Mean Corpuscular Volume 85.5 fL (80.0-98.0); Mean Platelet Volume 9.8 fL (9.4-12.4); Monocytes Absolute Auto 0.8 X10*3/uL (0.1-1.2); Monocytes Percent Auto 6.2 % (2-11); Neutrophils Percent Auto 56.7 % (45-73); Platelet Count 315 X10*3/uL (160-400); Red Blood Count 4.91 X10*6/uL (4.60-5.80); Red Cell Distribution Width 11.9 % (11.0-16.0); White Blood Count 12.3 X10*3/uL (4.8-10.8)
[2022-02-01 02:08] LABS: Ethanol < 10 mg/dL
[2022-02-01 02:12] LABS: Alanine Aminotransferase 71 U/L (0-40); Albumin Level 4.2 g/dL (3.5-5.0); Alkaline Phosphatase 70 U/L (39-117); Anion Gap 14 (12-20); Aspartate Amino Transferase 30 U/L (5-37); Bilirubin Total 0.4 mg/dL (0.0-1.0); Blood Urea Nitrogen 9 mg/dL (9-16); Calcium 9.5 mg/dL (8.4-10.2); Carbon Dioxide 24 mmol/L (22-29); Chloride 105 mmol/L (96-108); Creatinine Clr Calc Pharmacy 168.6; Estimated Glomerular Filt Rate > 60; Glucose Random 99 mg/dL (60-115); Sodium 139 mmol/L (135-145)
[2022-02-01 02:27] LABS: Valproate < 2.0 mcg/mL (50.0-100.0)
[2022-02-01] MEDS: Divalproex Sodium ER 500 MG TAB.ER.24H PO (02:36)
--- NOTE | 2022-02-01 06:37 | PC.NURSE ---
Patient slept through the night, no distress observed/reported, behavior non concerning, medication compliant, [facility] referral completed/confirmed/pending evaluation, patient requested discharge/care team made aware, VSS, will continue to monitor.
--- NOTE | 2022-02-01 09:04 | PC.NURSE ---
PT REQUESTING TO BE DISCH. CARE TEAM AWARE
--- NOTE | 2022-02-01 09:41 | MHC.CARE ---
Risk assessment: Pt is denying current SI/HI/AH/VH. Pt is requesting to be dischargeed. Pt is known to [facility]. Plan for Pt to follow up with current providers. Pt provided with crisis information.
== END 2022-02-01 09:06 | disposition home or self-care (01) ==
PROVIDERS: Physician Assistant; Emergency Provider Student in an Organized Health Care Education/Training Program
DX: F20.0 Paranoid schizophrenia (principal); F41.9 Anxiety disorder, unspecified; Z91.14 Patient's other noncompliance with medication regimen; F17.200 Nicotine dependence, unspecified, uncomplicated; Z20.822 Contact with and (suspected) exposure to COVID-19; Z79.899 Other long term (current) drug therapy
CPT/HCPCS: 36415; 80053; 80164; 80307; 81001; 82077; 85025; 87635; 99284

== ENCOUNTER 2022-02-14 01:35 | Emergency (ER) | payer MEDICARE, MEDICAID, SELFPAY ==
[2022-02-14 02:06] VITALS: BP 141/81; PULSE 119; RESP 16; TEMP 36.3; O2SAT 96; BMI 33.4
[2022-02-14 05:00] VITALS: BP 145/78; PULSE 80; RESP 16; O2SAT 98
[2022-02-14] MEDS: Acetaminophen 325 MG TABLET 650 MG PO (05:11)
--- NOTE | 2022-02-14 05:28 | ED.GENADULT ---
HPI - General Adult General Chief complaint: General Medical Stated complaint: Headache Time Seen by Provider: 02/14/22 05:22 Source: patient Mode of arrival: ambulatory Limitations: no limitations History of Present Illness HPI narrative: 26-year-old male who presents emergency department for evaluation headache. Patient states that the headache started yesterday. He points to the frontal area of his head when asked to localize the pain. He states the pain is intermittent, throbbing and moderate in intensity. He denied associated symptoms such as nausea, vomiting, numbness, weakness, loss of bowel or bladder control. States that he took Tylenol with no relief of the pain. Related Data Previous Rx's Medication Instructions Recorded albuterol sulfate 90 mcg/actuation 2 puff INHALATION RQ4H PRN 30 Days 01/11/22 aerosol inhaler (Ventolin HFA) #1 g benztropine 0.5 mg tablet 0.5 mg PO BEDTIME 30 Days #30 tab 01/11/22 divalproex 500 mg tablet,extended 500 mg PO BEDTIME 30 Days #30 tab 01/11/22 release 24 hr haloperidol 5 mg tablet 5 mg PO BEDTIME 30 Days #30 tab 01/11/22 loperamide 2 mg capsule 2 mg PO Q6H PRN #20 cap 01/24/22 Allergies Allergy/AdvReac Type Severity Reaction Status Date / Time No Known Allergies Allergy Verified 01/31/22 23:10 [No Known Allergies*] Review of Systems Review of Systems: Yes all other systems are reviewed and are negative [facility] Past Medical History [facility] Narrative: Social history: Smokes 1/2 pack of cigarettes per day times many years. He states that he occasionally drinks alcohol. He denies drug use. Medical History Schizophrenia, paranoid, chronic with acute exacerbation Social History Social History Household Members: None Household Members Other:: 0 Housing: Apartment Do you presently have visiting nurse or other home services: Yes Unable to assess alcohol history related to: Refusing to respond Alcohol intake: unknown Patient Tobacco Use Status: Current everyday Tobacco user Tobacco use type: Cigarette e-Cigarette/Vaping Use: Never Used Second Hand Smoke Exposure: Yes Substance Use Type: Marijuana Advance Directives: No service: No Sexual orientation: Decline to Answer Physical Exam ED Vital Signs: Vital Signs - 24 hr 02/14/22 02:06 02/14/22 05:00 Temperature 97.3 F Pulse Rate 119 H 80 Respiratory Rate 16 16 Blood Pressure 141/81 H 145/78 H Pulse Oximetry 96 98 BMI result Body Mass Index 33.4 Const Other: Awake, alert, male, does not appear to be in distress Orientation/consciousness: oriented to place [facility] Head: Yes normal to inspection, Yes normocephalic and Yes atraumatic Ears: external ears normal General nose exam: Normal external nose present Face and sinus: Yes normal facial exam Mouth: Normal oral and palatal mucosa present Throat: Yes posterior oropharynx normal Eyes General: appearance normal, both eyes and all related structures Pupils: Equal, round and reactive pupils present Neck Neck: Yes normal visual inspection, Yes no lymphadenopathy, Yes trachea midline and Yes supple Chest Chest palpation & inspection: normal inspection of the chest and normal palpation of entire chest wall Resp Effort & Inspection: normal respiratory effort and able to speak in complete sentences Auscultation: clear to auscultation bilaterally Cardio Rate: regular rate Rhythm: regular rhythm Heart sounds: S1 normal heart sound present, S2 normal heart sound present and no murmurs GI Inspection: Yes normal to inspection Palpation (GI): Soft to palpation, nontender and no guarding Auscultation: normal bowel sounds General: Yes no CVA tenderness Back/Spine/Pelvis Back: no CVA tenderness Skin General skin exam: no rashes or lesions noted Neuro General: oriented to place Cranial nerves: Yes CN's II-XII intact bilaterally and Yes Equal, round and reactive pupils present Cognition (Neuro): normal cognition Motor exam (neuro): 5/5 motor strength present throughout Extrem General: Yes normal to inspection Psych Appearance: grossly normal Speech and movement: Normal speech and movement present Affect: Other affect and mood findings present (Flat) Attitude: cooperative Course Course Course Narrative: 26-year-old male who presents emergency department for evaluation of intermittent headache x2 days. Patient's vital signs initially revealed an elevated pulse of 119 abutment pulse was 80. Patient's examination was unremarkable. Patient was given ibuprofen for his headache. Patient was discharged home printed and verbal instructions. Discharge Plan Discharge Clinical Impression: Headache Qualifiers: Headache chronicity pattern: acute headache Intractability: not intractable Instructions: Acute Headache (ED) Additional Instructions: Take ibuprofen 200 mg pills, 3 pills every 6 hours as needed for pain. Take Tylenol (acetaminophen) 500 mg pills, 2 pills every 4 to 6 hours as needed for pain. Follow-up with your doctor in 2 days. Please return to the emergency department if your symptoms get worse or if you develop any symptoms that are concerning to you. Prescriptions: No Action albuterol sulfate [Ventolin HFA] 90 mcg/actuation Hfa Aerosol Inhaler 2 puff inhalation RQ4H PRN (Reason: Shortness Of Breath) 30 Days Qty: 1 0RF benztropine 0.5 mg Tablet 0.5 mg PO BEDTIME 30 Days Qty: 30 0RF haloperidol 5 mg Tablet 5 mg PO BEDTIME 30 Days Qty: 30 0RF divalproex 500 mg Tablet Extended Release 24 Hr 500 mg PO BEDTIME 30 Days Qty: 30 0RF loperamide 2 mg capsule 2 mg PO Q6H PRN (Reason: loose stool) Qty: 20 0RF
[2022-02-14] MEDS: Ibuprofen 600 MG TABLET PO (05:37)
== END 2022-02-14 05:43 | disposition home or self-care (01) ==
PROVIDERS: Emergency Provider Emergency Medicine Emergency Medical Services
DX: R51.9 Headache, unspecified (principal); Z79.899 Other long term (current) drug therapy; F17.210 Nicotine dependence, cigarettes, uncomplicated; Z71.6 Tobacco abuse counseling
CPT/HCPCS: 99283; 99284

== ENCOUNTER 2022-02-17 03:02 | Emergency (ER) | payer MEDICARE, MEDICAID, SELFPAY ==
[2022-02-17 03:28] VITALS: BP 129/81; PULSE 101; RESP 18; TEMP 36.2; O2SAT 97; BMI 36.8
[2022-02-17 04:52] VITALS: BP 127/89; PULSE 103; RESP 20; O2SAT 99
--- NOTE | 2022-02-17 05:33 | ED.GENADULT ---
HPI - General Adult General Chief complaint: Nausea/Vomiting/Diarrhea Stated complaint: Vomiting Time Seen by Provider: 02/17/22 05:31 Source: patient Mode of arrival: ambulatory History of Present Illness HPI narrative: 26-year-old male who presents with complaints having eaten at [employer] and then throwing up thereafter. He denies any fever, chills, diarrhea, urinary symptoms and denies any cough or sore throat. He is specifically asking for Maalox and Zofran. Related Data Previous Rx's Medication Instructions Recorded albuterol sulfate 90 mcg/actuation 2 puff INHALATION RQ4H PRN 30 Days 01/11/22 aerosol inhaler (Ventolin HFA) #1 g benztropine 0.5 mg tablet 0.5 mg PO BEDTIME 30 Days #30 tab 01/11/22 divalproex 500 mg tablet,extended 500 mg PO BEDTIME 30 Days #30 tab 01/11/22 release 24 hr haloperidol 5 mg tablet 5 mg PO BEDTIME 30 Days #30 tab 01/11/22 loperamide 2 mg capsule 2 mg PO Q6H PRN #20 cap 01/24/22 Allergies Allergy/AdvReac Type Severity Reaction Status Date / Time No Known Allergies Allergy Verified 01/31/22 23:10 [No Known Allergies*] Review of Systems Review of Systems: Pertinent positives and negatives as stated in HPI 10 point review of systems is otherwise negative. [facility] Past Medical History Source: nursing notes reviewed Medical History Schizophrenia, paranoid, chronic with acute exacerbation Social History Social History Household Members: None Household Members Other:: 0 Housing: Apartment Do you presently have visiting nurse or other home services: Yes Unable to assess alcohol history related to: Refusing to respond Alcohol intake: unknown Patient Tobacco Use Status: Never used Tobacco Tobacco use type: Cigarette e-Cigarette/Vaping Use: Never Used Second Hand Smoke Exposure: Yes Substance Use Type: Marijuana Advance Directives: No service: No Sexual orientation: Decline to Answer Physical Exam ED Vital Signs: Vital Signs - 24 hr 02/17/22 03:28 02/17/22 04:52 Temperature 97.2 F Pulse Rate 101 H 103 H Respiratory Rate 18 20 Blood Pressure 129/81 127/89 Pulse Oximetry 97 99 BMI result Body Mass Index 36.8 VITAL SIGNS: Reviewed. GENERAL: Well developed, well nourished, in no acute distress. HEAD: Normocephalic/atraumatic EYES: PERRLA, EOMI EARS: Ext canals without abnormality OROPHARYNX: no oral lesions noted, posterior pharynx clear LUNGS: Normal breath sounds. No adventitious sounds or accessory muscle use. SpO2<97> CARDIOVASCULAR: Regular rate and rhythm without noted murmurs ABDOMEN: Soft, non-tender, non-distended with bowel sounds. SKIN: Inspection of the skin reveals no rashes NEUROLOGIC: Alert and oriented x 4. Strength and sensation to light touch were grossly intact x 4. Course Course Course Narrative: 26-year-old male with history and clinical presentation of suspected mild reaction to fast food. Patient was provided with Zofran as well as a GI cocktail and on re-evaluation states he feels much improved and is stable for discharge to home. Discharge Plan Discharge Clinical Impression: Schizophrenia, Mild nausea Patient Disposition: Home, Self-Care Instructions: Acute Nausea and Vomiting (ED), Schizophrenia (ED) Additional Instructions: 1. Follow-up with your primary care provider and return to this ER if you have any worsening symptoms. Prescriptions: No Action albuterol sulfate [Ventolin HFA] 90 mcg/actuation Hfa Aerosol Inhaler 2 puff inhalation RQ4H PRN (Reason: Shortness Of Breath) 30 Days Qty: 1 0RF benztropine 0.5 mg Tablet 0.5 mg PO BEDTIME 30 Days Qty: 30 0RF haloperidol 5 mg Tablet 5 mg PO BEDTIME 30 Days Qty: 30 0RF divalproex 500 mg Tablet Extended Release 24 Hr 500 mg PO BEDTIME 30 Days Qty: 30 0RF loperamide 2 mg capsule 2 mg PO Q6H PRN (Reason: loose stool) Qty: 20 0RF
== END 2022-02-17 06:08 | disposition home or self-care (01) ==
PROVIDERS: Emergency Provider Student in an Organized Health Care Education/Training Program
DX: R11.2 Nausea with vomiting, unspecified (principal); F20.9 Schizophrenia, unspecified
CPT/HCPCS: 99283

== ENCOUNTER 2022-02-17 22:41 | Emergency (ER) | payer MEDICARE, MEDICAID, SELFPAY ==
--- NOTE | 2022-02-17 | ECG_ITS ---
Test Reason : CHEST APIN Blood Pressure : / mmHG Vent. Rate : 087 BPM Atrial Rate : 087 BPM P-R Int : 164 ms QRS Dur : 088 ms QT Int : 362 ms P-R-T Axes : 031 055 034 degrees QTc Int : 435 ms Normal sinus rhythm Normal ECG When compared with ECG of 12-JAN-2022 09:34, No significant change was found Referred By: Yamile Jain Electronically Signed By:Fernandez Jackson
--- NOTE | 2022-02-17 22:59 | PC.NURSE ---
ekg ordered erroneously. this patient does not require an EKG
[2022-02-17 23:13] VITALS: BP 142/82; PULSE 81; RESP 14; TEMP 36.8; O2SAT 95; BMI 36.5
--- NOTE | 2022-02-18 01:12 | ED_ITS ---
HPI - General Adult General Chief complaint: General Medical Stated complaint: ? Time Seen by Provider: 02/18/22 00:39 Source: patient Mode of arrival: ambulatory History of Present Illness HPI narrative: 26-year-old male with presentation for not feeling well while walking, he states that he feels like he might poop. Patient states that he feels like when he is walking he feels blood coming out of his bottom. He denies any nausea, vomiting, abdominal pain and refuses rectal exam at this time. He otherwise denies shortness of breath, palpitations, dizziness. Related Data Previous Rx's Medication Instructions Recorded albuterol sulfate 90 mcg/actuation 2 puff INHALATION RQ4H PRN 30 Days 01/11/22 aerosol inhaler (Ventolin HFA) #1 g benztropine 0.5 mg tablet 0.5 mg PO BEDTIME 30 Days #30 tab 01/11/22 divalproex 500 mg tablet,extended 500 mg PO BEDTIME 30 Days #30 tab 01/11/22 release 24 hr haloperidol 5 mg tablet 5 mg PO BEDTIME 30 Days #30 tab 01/11/22 loperamide 2 mg capsule 2 mg PO Q6H PRN #20 cap 01/24/22 Allergies Allergy/AdvReac Type Severity Reaction Status Date / Time No Known Allergies Allergy Verified 01/31/22 23:10 [No Known Allergies*] Review of Systems Review of Systems: Pertinent positives and negatives as stated in HPI 10 point review of systems is otherwise negative. [facility] Past Medical History Source: nursing notes reviewed Medical History Schizophrenia, paranoid, chronic with acute exacerbation Social History Social History Household Members: None Household Members Other:: 0 Housing: Apartment Do you presently have visiting nurse or other home services: Yes Unable to assess alcohol history related to: Refusing to respond Alcohol intake: unknown Patient Tobacco Use Status: Never used Tobacco Tobacco use type: Cigarette e-Cigarette/Vaping Use: Never Used Second Hand Smoke Exposure: Yes Substance Use Type: Marijuana Advance Directives: No service: No Sexual orientation: Decline to Answer Physical Exam ED Vital Signs: Vital Signs - 24 hr 02/17/22 23:13 Temperature 98.3 F Pulse Rate 81 Respiratory Rate 14 Blood Pressure 142/82 H Pulse Oximetry 95 BMI result Body Mass Index 36.5 VITAL SIGNS: Reviewed. GENERAL: Well developed, well nourished, in no acute distress. HEAD: Normocephalic/atraumatic EYES: PERRLA, EOMI EARS: Ext canals without abnormality OROPHARYNX: no oral lesions noted, posterior pharynx clear, pink mucosa LUNGS: Normal breath sounds. No adventitious sounds or accessory muscle use. SpO2<95> CARDIOVASCULAR: Regular rate and rhythm without noted murmurs ABDOMEN: Soft, non-tender, non-distended with bowel sounds. SKIN: Inspection of the skin reveals no rashes, pallor NEUROLOGIC: Alert and oriented x 4. Strength and sensation to light touch were grossly intact x 4. Course Course Course Narrative: 26-year-old male with history and clinical presentation consistent with schizophrenia paranoid and frequently comes into the emergency department for various, minor complaints, however this evening he has complaints of questionable rectal bleeding but is otherwise asymptomatic and on objective evaluation patient is otherwise stable. Patient is adamantly declining evaluation of his rectum but was reassured that he will be provided with a referral should he want to pursue further investigation regarding his symptoms. Medical Decision Making ECG Data Attestation: I personally reviewed and interpreted this ECG as follows: Prior ECG tracings: available for review Interpretation: NSR, HR-87, no STEMI, TX/QRS/QTC are within normal limits. Discharge Plan Discharge Clinical Impression: Chronic paranoid schizophrenia Patient Disposition: Home, Self-Care Instructions: Schizophrenia (ED), Rectal Bleeding (ED) Additional Instructions: 1. Please do not hesitate to return to the emergency room should you experience any significant bleeding from your rectum. Prescriptions: No Action albuterol sulfate [Ventolin HFA] 90 mcg/actuation Hfa Aerosol Inhaler 2 puff inhalation RQ4H PRN (Reason: Shortness Of Breath) 30 Days Qty: 1 0RF benztropine 0.5 mg Tablet 0.5 mg PO BEDTIME 30 Days Qty: 30 0RF haloperidol 5 mg Tablet 5 mg PO BEDTIME 30 Days Qty: 30 0RF divalproex 500 mg Tablet Extended Release 24 Hr 500 mg PO BEDTIME 30 Days Qty: 30 0RF loperamide 2 mg capsule 2 mg PO Q6H PRN (Reason: loose stool) Qty: 20 0RF
--- NOTE | 2022-02-18 02:29 | PC.NURSE ---
Pt refused rectal exam multiple times with Dr. Jain, despite pt complaining that he has some bleeding from his rectum.
[2022-02-18 02:30] LABS: Appearance Urine CLEAR; Color Urine YELLOW; Glucose Urine UA NEG (NEG); Leukocyte Esterase Urine NEG (NEG); Nitrite Urine NEG (NEG); PH 5.5 (5.0-8.0); UACC Culture Trigger NO; Urine Blood TRACE (NEG); Urine Ketones NEG (NEG); Urine Protein NEG (NEG-TRACE)
[2022-02-18 02:37] LABS: RBC Urine 0-2 /HPF (0); WBC Urine 0-2 /HPF (0-4)
[2022-02-18 02:42] VITALS: BP 152/80; PULSE 78; RESP 16; TEMP 36.9; O2SAT 96
[2022-02-18 02:48] LABS: Amphetamine Screen Urine Not Detected (Not Detect); Barbiturates, Urine Not Detected (Not Detect); Benzodiazepines Screen Urine Not Detected (Not Detect); Cannabinoid Screen Urine Not Detected (Not Detect); Cocaine Screen Urine Not Detected (Not Detect); Fentanyl, urine Not Detected (Not Detect); Opiate Screen Urine Not Detected (Not Detect); Phencyclidine Screen Urine Not Detected (Not Detect)
== END 2022-02-18 02:42 | disposition home or self-care (01) ==
PROVIDERS: Emergency Provider Student in an Organized Health Care Education/Training Program
DX: F20.0 Paranoid schizophrenia (principal)
CPT/HCPCS: 80307; 81001; 93005; 99283; 99284

== ENCOUNTER 2022-02-19 03:21 | Emergency (ER) | payer MEDICARE, MEDICAID, SELFPAY ==
[2022-02-19 03:33] VITALS: BP 153/82; PULSE 90; RESP 16; TEMP 36.3; O2SAT 96; BMI 37.2
--- NOTE | 2022-02-19 04:19 | ED.HA ---
HPI - Headache General Chief Complaint: Headache Stated Complaint: headache Time Seen by Provider: 02/19/22 04:18 Source: patient Mode of arrival: ambulatory History of Present Illness HPI Narrative: 26-year-old male with history of schizophrenia presents with headache but otherwise denies any visual/speech/auditory changes and denies that it is associated with photophobia/nausea/fever or chills. Related Data Previous Rx's Medication Instructions Recorded albuterol sulfate 90 mcg/actuation 2 puff INHALATION RQ4H PRN 30 Days 01/11/22 aerosol inhaler (Ventolin HFA) #1 g benztropine 0.5 mg tablet 0.5 mg PO BEDTIME 30 Days #30 tab 01/11/22 divalproex 500 mg tablet,extended 500 mg PO BEDTIME 30 Days #30 tab 01/11/22 release 24 hr haloperidol 5 mg tablet 5 mg PO BEDTIME 30 Days #30 tab 01/11/22 loperamide 2 mg capsule 2 mg PO Q6H PRN #20 cap 01/24/22 Allergies Allergy/AdvReac Type Severity Reaction Status Date / Time No Known Allergies Allergy Verified 02/19/22 03:39 [No Known Allergies*] Review of Systems Review of Systems: Pertinent positives and negatives as stated in HPI 10 point review systems is otherwise negative. [facility] Past Medical History Source: nursing notes reviewed Medical History Schizophrenia, paranoid, chronic with acute exacerbation Social History Social History Household Members: None Household Members Other:: 0 Housing: Apartment Do you presently have visiting nurse or other home services: Yes Unable to assess alcohol history related to: Refusing to respond Alcohol intake: unknown Patient Tobacco Use Status: Never used Tobacco Tobacco use type: Cigarette e-Cigarette/Vaping Use: Never Used Second Hand Smoke Exposure: Yes Substance Use Type: Marijuana Advance Directives: No service: No Sexual orientation: Decline to Answer Physical Exam Vital Signs: Vital Signs: Last Vital Signs Temp 97.4 F 02/19/22 03:33 Pulse 90 02/19/22 03:33 Resp 16 02/19/22 03:33 BP 153/82 H 02/19/22 03:33 Pulse Ox 96 02/19/22 03:33 BMI result Body Mass Index 37.2 VITAL SIGNS: Reviewed. GENERAL: Well developed, well nourished, in no acute distress. HEAD: Normocephalic/atraumatic EYES: PERRLA, EOMI EARS: Ext canals without abnormality OROPHARYNX: no oral lesions noted, posterior pharynx clear LUNGS: Normal breath sounds. No adventitious sounds or accessory muscle use. SpO2<96> CARDIOVASCULAR: Regular rate and rhythm without noted murmurs ABDOMEN: Soft, non-tender, non-distended with bowel sounds. NEUROLOGIC: Alert and oriented x 4. Strength and sensation to light touch were grossly intact x 4, otherwise nonfocal Course Course Course Narrative: 26-year-old male with history and clinical presentation consistent with headache and low clinical suspicion for migraine or neurologic etiology. Patient was provided with medication and on re-evaluation reports that has completely resolved. He was then discharged home in stable condition. Discharge Plan Discharge Clinical Impression: Headache Patient Disposition: Home, Self-Care Instructions: General Headache (ED) Additional Instructions: 1. Take [id number] Tylenol/ibuprofen as needed for headache. Return to the ER for worsening symptoms. Prescriptions: No Action albuterol sulfate [Ventolin HFA] 90 mcg/actuation Hfa Aerosol Inhaler 2 puff inhalation RQ4H PRN (Reason: Shortness Of Breath) 30 Days Qty: 1 0RF benztropine 0.5 mg Tablet 0.5 mg PO BEDTIME 30 Days Qty: 30 0RF haloperidol 5 mg Tablet 5 mg PO BEDTIME 30 Days Qty: 30 0RF divalproex 500 mg Tablet Extended Release 24 Hr 500 mg PO BEDTIME 30 Days Qty: 30 0RF loperamide 2 mg capsule 2 mg PO Q6H PRN (Reason: loose stool) Qty: 20 0RF Interventions: ED Discharge Assessment Last Done: 02/19/22 05:03 Discharge Date/Time: 02/19/22 05:04
[2022-02-19] MEDS: Acetaminophen 325 MG TABLET 975 MG PO (04:31)
[2022-02-19] MEDS: Ibuprofen 400 MG TABLET PO (04:32)
== END 2022-02-19 05:04 | disposition home or self-care (01) ==
PROVIDERS: Emergency Provider Student in an Organized Health Care Education/Training Program
DX: R51.9 Headache, unspecified (principal); F25.9 Schizoaffective disorder, unspecified; Z79.899 Other long term (current) drug therapy
CPT/HCPCS: 99283

== ENCOUNTER 2022-02-21 21:23 | Emergency (ER) | payer MEDICARE, MEDICAID, SELFPAY ==
--- NOTE | 2022-02-21 21:26 | ECG_ITS ---
Test Reason : CHEST PAIN Blood Pressure : / mmHG Vent. Rate : 120 BPM Atrial Rate : 120 BPM P-R Int : 144 ms QRS Dur : 080 ms QT Int : 326 ms P-R-T Axes : 033 090 043 degrees QTc Int : 460 ms Sinus tachycardia Rightward axis Cannot rule out Anterior infarct , age undetermined Abnormal ECG When compared with ECG of 18-FEB-2022 00:55, No significant change was found Referred By: Generic ED Physician Electronically Signed By:CHAYO JACOBS MD
[2022-02-21 21:31] VITALS: BP 138/84; PULSE 124; RESP 20; TEMP 36.9; O2SAT 96; BMI 38.0
--- NOTE | 2022-02-21 21:47 | ED.CHESTPAIN ---
HPI - Chest Pain General Chief Complaint: Chest Pain Stated Complaint: chest pain Time Seen by Provider: 02/21/22 21:47 Source: patient Mode of arrival: ambulatory Limitations: no limitations Related Data Previous Rx's Medication Instructions Recorded albuterol sulfate 90 mcg/actuation 2 puff INHALATION RQ4H PRN 30 Days 01/11/22 aerosol inhaler (Ventolin HFA) #1 g benztropine 0.5 mg tablet 0.5 mg PO BEDTIME 30 Days #30 tab 01/11/22 divalproex 500 mg tablet,extended 500 mg PO BEDTIME 30 Days #30 tab 01/11/22 release 24 hr haloperidol 5 mg tablet 5 mg PO BEDTIME 30 Days #30 tab 01/11/22 loperamide 2 mg capsule 2 mg PO Q6H PRN #20 cap 01/24/22 Allergies Allergy/AdvReac Type Severity Reaction Status Date / Time No Known Allergies Allergy Verified 02/19/22 03:39 [No Known Allergies*] PMFSH Past Medical History Medical History Schizophrenia, paranoid, chronic with acute exacerbation Social History Social History Household Members: None Household Members Other:: 0 Housing: Apartment Do you presently have visiting nurse or other home services: Yes Unable to assess alcohol history related to: Refusing to respond Alcohol intake: unknown Patient Tobacco Use Status: Never used Tobacco Tobacco use type: Cigarette e-Cigarette/Vaping Use: Never Used Second Hand Smoke Exposure: Yes Substance Use Type: Marijuana Advance Directives: No service: No Sexual orientation: Decline to Answer Physical Exam Vital Signs: Vital Signs: Last Vital Signs Temp 98.5 F 02/21/22 21:31 Pulse 124 H 02/21/22 21:31 Resp 20 02/21/22 21:31 BP 138/84 02/21/22 21:31 Pulse Ox 96 02/21/22 21:31 BMI result Body Mass Index 38.0 Discharge Plan Discharge Prescriptions: No Action albuterol sulfate [Ventolin HFA] 90 mcg/actuation Hfa Aerosol Inhaler 2 puff inhalation RQ4H PRN (Reason: Shortness Of Breath) 30 Days Qty: 1 0RF benztropine 0.5 mg Tablet 0.5 mg PO BEDTIME 30 Days Qty: 30 0RF haloperidol 5 mg Tablet 5 mg PO BEDTIME 30 Days Qty: 30 0RF divalproex 500 mg Tablet Extended Release 24 Hr 500 mg PO BEDTIME 30 Days Qty: 30 0RF loperamide 2 mg capsule 2 mg PO Q6H PRN (Reason: loose stool) Qty: 20 0RF
--- NOTE | 2022-02-21 22:14 | ED.CHESTPAIN ---
HPI - Chest Pain General Chief Complaint: Chest Pain Stated Complaint: chest pain Time Seen by Provider: 02/21/22 21:47 Source: patient Mode of arrival: ambulatory Limitations: no limitations History of Present Illness HPI narrative: Patient with history of schizophrenia no known coronary disease no history of use of cocaine comes complaining of left-sided chest pain started about an hour ago without any radiation it is sharp in character no shortness of breath when triaged patient was tachycardic with heart rate of 124 saturating 96% at room Related Data Previous Rx's Medication Instructions Recorded albuterol sulfate 90 mcg/actuation 2 puff INHALATION RQ4H PRN 30 Days 01/11/22 aerosol inhaler (Ventolin HFA) #1 g benztropine 0.5 mg tablet 0.5 mg PO BEDTIME 30 Days #30 tab 01/11/22 divalproex 500 mg tablet,extended 500 mg PO BEDTIME 30 Days #30 tab 01/11/22 release 24 hr haloperidol 5 mg tablet 5 mg PO BEDTIME 30 Days #30 tab 01/11/22 Allergies Allergy/AdvReac Type Severity Reaction Status Date / Time No Known Allergies Allergy Verified 02/19/22 03:39 [No Known Allergies*] Review of Systems Review of Systems: Yes all other systems are reviewed and are negative PMFSH Past Medical History Medical History Schizophrenia, paranoid, chronic with acute exacerbation Social History Social History Household Members: None Household Members Other:: 0 Housing: Apartment Do you presently have visiting nurse or other home services: Yes Unable to assess alcohol history related to: Refusing to respond Alcohol intake: unknown Patient Tobacco Use Status: Never used Tobacco Tobacco use type: Cigarette e-Cigarette/Vaping Use: Never Used Second Hand Smoke Exposure: Yes Substance Use Type: Marijuana Advance Directives: No service: No Sexual orientation: Decline to Answer Physical Exam Vital Signs: Vital Signs: Last Vital Signs Temp 98.5 F 02/21/22 21:31 Pulse 104 H 02/21/22 22:25 Resp 20 02/21/22 21:31 BP 116/71 02/21/22 22:25 Pulse Ox 97 02/21/22 22:25 BMI result Body Mass Index 38.0 Appearance: Alert. Oriented X3. No acute distress. Eyes: No pallor/ icterus ENT: Pharynx normal. Oral Mucosa moist Neck: Normal inspection. Neck supple. CVS: Normal heart rate and rhythm. Pulses normal. Respiratory: No respiratory distress. Equal air entry bilateral, clear to auscultation Abdomen: Soft and nontender. Bowel sounds are present, Skin: Skin warm and dry. Normal skin color. Normal skin turgor. Extremities: No lower extremity edema. No calf tenderness Neuro: Oriented X 3. MDM - Chest Pain Lab Data Attestation: I reviewed the patient's lab results. Labs: Lab Results 02/21/22 Range/Units 22:24 Troponin I High Sens < 3.5 (<3.5-35.0) ng/L ECG Data ECG #1: Attestation: I personally reviewed and interpreted this ECG as follows: Interpretation: Sinus tachycardia heart rate 120 beats per minute poor progression of R-wave no acute ischemic changes normal axis Discharge Plan Discharge Clinical Impression: Atypical chest pain Patient Disposition: Home, Self-Care Instructions: Chest Pain (ED) Additional Instructions: your pain is unlikely from the heart follow with PCP Prescriptions: No Action albuterol sulfate [Ventolin HFA] 90 mcg/actuation Hfa Aerosol Inhaler 2 puff inhalation RQ4H PRN (Reason: Shortness Of Breath) 30 Days Qty: 1 0RF benztropine 0.5 mg Tablet 0.5 mg PO BEDTIME 30 Days Qty: 30 0RF haloperidol 5 mg Tablet 5 mg PO BEDTIME 30 Days Qty: 30 0RF divalproex 500 mg Tablet Extended Release 24 Hr 500 mg PO BEDTIME 30 Days Qty: 30 0RF Interventions: ED Discharge Assessment Last Done: 02/21/22 23:20 Discharge Date/Time: 02/21/22 23:21
[2022-02-21 22:25] VITALS: BP 116/71; PULSE 104; O2SAT 97
[2022-02-21 22:57] LABS: Troponin-I High Sensitivity < 3.5 ng/L (<3.5-35.0)
== END 2022-02-21 23:21 | disposition home or self-care (01) ==
PROVIDERS: Emergency Provider Internal Medicine
DX: R07.89 Other chest pain (principal)
CPT/HCPCS: 36415; 84484; 93005; 99283; 99284

== ENCOUNTER 2022-02-22 03:57 | Inpatient (IN) | payer MEDICARE, MEDICAID, SELFPAY ==
[2022-02-22 04:03] VITALS: BP 130/79; PULSE 99; RESP 20; TEMP 36.6; O2SAT 99; BMI 38.0
--- NOTE | 2022-02-22 04:33 | ED_ITS ---
HPI - Psych General Chief Complaint: Psychiatric Symptoms Stated Complaint: Hearing voices? Time Seen by Provider: 02/22/22 04:32 Source: patient Mode of arrival: ambulatory Limitations: no limitations History of Present Illness HPI Narrative: Patient with history of paranoid schizophrenia Was just seen for chest pain now comes back as he says that he is hearing voices does not feel safe denied any suicidal ideation or homicidal Related Data Previous Rx's Medication Instructions Recorded albuterol sulfate 90 mcg/actuation 2 puff INHALATION RQ4H PRN 30 Days 01/11/22 aerosol inhaler (Ventolin HFA) #1 g benztropine 0.5 mg tablet 0.5 mg PO BEDTIME 30 Days #30 tab 01/11/22 divalproex 500 mg tablet,extended 500 mg PO BEDTIME 30 Days #30 tab 01/11/22 release 24 hr haloperidol 5 mg tablet 5 mg PO BEDTIME 30 Days #30 tab 01/11/22 Allergies Allergy/AdvReac Type Severity Reaction Status Date / Time No Known Allergies Allergy Verified 02/19/22 03:39 [No Known Allergies*] Review of Systems Review of Systems: Yes all other systems are reviewed and are negative [facility] Past Medical History Medical History Schizophrenia, paranoid, chronic with acute exacerbation Social History Social History Household Members: None Household Members Other:: 0 Housing: Apartment Do you presently have visiting nurse or other home services: Yes Unable to assess alcohol history related to: Refusing to respond Alcohol intake: unknown Patient Tobacco Use Status: Never used Tobacco Tobacco use type: Cigarette e-Cigarette/Vaping Use: Never Used Second Hand Smoke Exposure: Yes Substance Use Type: Marijuana Advance Directives: No service: No Sexual orientation: Decline to Answer Physical Exam Vital Signs: Vital Signs: Last Vital Signs Temp 97.8 F 02/22/22 04:03 Pulse 99 02/22/22 04:03 Resp 20 02/22/22 04:03 BP 130/79 02/22/22 04:03 Pulse Ox 99 02/22/22 04:03 BMI result Body Mass Index 38.0 Appearance: Alert. Oriented X3. No acute distress. Eyes: PERRLA, No Nystagmus ENT: Pharynx normal. Oral Mucosa moist Neck: Normal inspection. Neck supple. CVS: Normal heart rate and rhythm. Pulses normal. Respiratory: No respiratory distress. Equal air entry bilateral, no wheezing/rales/rhonchi Abdomen: Soft and nontender. Bowel sounds are present, Skin: Skin warm and dry. Normal skin color. Normal skin turgor. Extremities: No lower extremity edema. No calf tenderness psych: AH + no depression no anxiety no suicidal feelings Neuro: Oriented X 3. No motor deficit. No sensory deficit.No cerebellar signs , cranial nerves II-XII intact MDM - Psych Lab Data Labs: Lab Results 02/22/22 02/22/22 Range/Units 04:23 04:23 Urine Opiates Screen Not Detected (Not Detect) Urine Fentanyl Screen Not Detected (Not Detect) Ur Barbiturates Screen Not Detected (Not Detect) Ur Phencyclidine Scrn Not Detected (Not Detect) Ur Amphetamines Screen Not Detected (Not Detect) U Benzodiazepines Scrn Not Detected (Not Detect) Urine Cocaine Screen Not Detected (Not Detect) U Marijuana (THC) Screen Not Detected (Not Detect) COVID-19 (TUSHAR) Negative (Negative) COVID-19 Clin Com See Note Discharge Plan Discharge Clinical Impression: Schizophrenia, paranoid, chronic with acute exacerbation Patient Disposition: Still a Patient Prescriptions: No Action albuterol sulfate [Ventolin HFA] 90 mcg/actuation Hfa Aerosol Inhaler 2 puff inhalation RQ4H PRN (Reason: Shortness Of Breath) 30 Days Qty: 1 0RF benztropine 0.5 mg Tablet 0.5 mg PO BEDTIME 30 Days Qty: 30 0RF haloperidol 5 mg Tablet 5 mg PO BEDTIME 30 Days Qty: 30 0RF divalproex 500 mg Tablet Extended Release 24 Hr 500 mg PO BEDTIME 30 Days Qty: 30 0RF
[2022-02-22 04:45] LABS: Amphetamine Screen Urine Not Detected (Not Detect); Barbiturates, Urine Not Detected (Not Detect); Benzodiazepines Screen Urine Not Detected (Not Detect); COVID-19 Test Negative (Negative); Cannabinoid Screen Urine Not Detected (Not Detect); Cocaine Screen Urine Not Detected (Not Detect); Fentanyl, urine Not Detected (Not Detect); Opiate Screen Urine Not Detected (Not Detect); Phencyclidine Screen Urine Not Detected (Not Detect)
[2022-02-22 06:00] VITALS: RESP 18
--- NOTE | 2022-02-22 06:49 | PC.NURSE ---
Patient was awake whole shift, came middle of the night, no distress observed/reported, med rec completed/MAR updated, BH[facility] referral completed/confirmed/pending ETA, behavior non concerning at this time, will continue to monitor.
[2022-02-22 07:38] VITALS: RESP 18
--- NOTE | 2022-02-22 08:11 | PC.NURSE ---
pt is sleeping resp even and unlabored.
--- NOTE | 2022-02-22 11:26 | PC.NURSE ---
pt seen by n aware of plan of care.
--- NOTE | 2022-02-22 11:40 | PC.NURSE ---
meds that were due at 0900 this am was actually taken by pt at approx 1139. pt was approached multi times to take his meds was sleeping/resting. bhn (yee) is at bedside, pt is aware of plan of care.
--- NOTE | 2022-02-22 11:51 | PC.NURSE ---
pt is adamantly refusing to have lab work done. aware.
[2022-02-22 11:59] VITALS: RESP 18
--- NOTE | 2022-02-22 13:55 | PC.NURSE ---
per [facility] - inpatient bed search with section 12. pt aware of plan of care.
[2022-02-22] MEDS: Divalproex Sodium ER 500 MG TAB.ER.24H PO (20:14)
[2022-02-22] MEDS: HaloperidoL 5 MG TABLET PO (20:14)
[2022-02-22] MEDS: Benztropine Mesylate 0.5 MG TABLET PO (20:14)
[2022-02-22 20:28] VITALS: BMI 36.8
--- NOTE | 2022-02-22 21:05 | PC.ADMIT ---
Pt is a 26y/o male admitted on CV for inpatient level of care after pt reported hallucination and chest pain. Pt is states that he hears his neighbours talking to him. Pt is alert and oriented X3. VSS. Covid negative and Tox screen negative. Pt denies all psych symptoms except Auditory Hallucination. Pt agrees to let staff know if AH occurs. Pt presents with disorganized thoughts and paranoia saying that his neighbours are talking about him. Pt reports that he has not been taking his medication. amount of the time. Speech is clear, but hard to understand/ make a point. Admission order obtained.
[2022-02-23 06:00] VITALS: BP 117/70; PULSE 98; RESP 16; TEMP 36.1; O2SAT 96
--- NOTE | 2022-02-23 09:23 | PHA.MEDREC ---
Pharmacy Consult ? Medication Reconciliation RN has completed the medication reconciliation, pharmacy reviewed.
--- NOTE | 2022-02-23 17:48 | P.HPPS_ITS ---
HPI Date of Service: 02/23/22 Chief Complaint: schizoaffective Sources of Information: patient interviewed, chart reviewed and crisis/core team assessment reviewed HPI Subjective Notes: Yu Warning and Conditional Voluntary Healthcare Proxy: No Guardianship: No Medical Problems Affecting Mental Status: No Narrative: Nura is a 26 y.o. male who carries a dx of paranoid schizophrenia. He presented to [facility] ED on 02/22/22 due to AH, feeling unsafe. Per crisis eval, pt stated I can hear my neighbors talking, talking, everywhere I go I hear the voices, I don't know why. He has a hx of multiple inpatient admissions, hx of being committed via section 8 during previous [facility] admissions. Has DMH and OP psych providers. Hx pf paranoid delusional thoughts about his neighbors wanting to harm him.? I evaluated the pt this evening and upon interview he reports he had not been med adherent prior to hospitalization. However, he has been adherent with depakote and haldol while on the unit and says ?I need to take them again.? Reports his mood is ?fine.? Currently denies paranoia. Says his sleep is ?good.? Pt reports says his paranoia is worse at home, as he hears his neighbors talking about him. Says he tries to keep to himself, stays home and watches tv, sometimes visits family but otherwise says ?I dont bother nobody.? He refused lab work while in the ED pod. Says he doesnt want ?to take too much blood.? Pt signed a 3 day notice. Past Psychiatric History: -He has a longstanding history of paranoid schizophrenia and history of medication noncompliance. In the past court order had to be obtained for 1 of his admissions. Very little to no insight into his problems. He denies any suicidal ideations or history of attempts. His apartment in [place] is managed by [facility] and he is able to return there upon discharge. In the past he has been on Invega, Risperdal and trazodone -Hx of numerous hospitalization with very poor post discharge follow-up and medication noncompliance Medical Evaluation Reviewed: Yes [facility] Medical History Schizophrenia, paranoid, chronic with acute exacerbation Family History: -Both parents with substance use. -There is history of schizophrenia in the family. Social History: Pt raised by extended family. Not close to bio mother or father. He was born in [place], in [place] for several years. He does have cousin and aunt close to him. Not working, on SSI as primary source of income. 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 Trauma History: Pt identifies not growing up with bio parents as traumatic. Diagnostics Vital Signs (24Hr): Vital Signs - 24 hr 02/23/22 06:00 Temperature 97 F Pulse Rate 98 Respiratory Rate 16 Blood Pressure 117/70 Pulse Oximetry 96 BMI result Body Mass Index 36.8 Labs Labs: Laboratory Results - last 48 hr 02/22/22 02/22/22 04:23 04:23 Urine Opiates Screen Not Detected Urine Fentanyl Screen Not Detected Ur Barbiturates Screen Not Detected Ur Phencyclidine Scrn Not Detected Ur Amphetamines Screen Not Detected U Benzodiazepines Scrn Not Detected Urine Cocaine Screen Not Detected U Marijuana (THC) Screen Not Detected COVID-19 (TUSHAR) Negative COVID-19 Clin Com See Note Meds/Allergies Meds Home Medications Acetaminophen (Acetaminophen 325 Mg Tablet) 650 mg PO Q6H PRN PRN Reason: Headache/Pain Mild Scale (1-3) Al Hydroxide/Mg Hydroxide (Magnesium Hydrox/Alum Hydrox 30 Ml Oral.Susp) 30 ml PO Q6H PRN PRN Reason: Heartburn/Nausea Albuterol Sulfate (Albuterol Sulfate 90 Mcg 8 Gm Inhaler) 2 puff INHALE RQ4H PRN PRN Reason: Shortness Of Breath Benztropine Mesylate (Benztropine Mesylate 0.5 Mg Tablet) 0.5 mg PO BEDTIME [facility] Last Admin: 02/23/22 20:57 Dose: 0.5 mg Documented by: Divalproex Sodium (Divalproex Sodium Er 500 Mg Tab.Er.24h) 500 mg PO BEDTIME JOE Last Admin: 02/23/22 20:56 Dose: 500 mg Documented by: Haloperidol (Haloperidol 5 Mg Tablet) 5 mg PO BEDTIME JOE Last Admin: 02/23/22 20:58 Dose: 5 mg Documented by: Hydroxyzine HCl (Hydroxyzine Hcl 25 Mg Tablet) 25 mg PO Q6H PRN PRN Reason: Anxiety Magnesium Hydroxide (Milk Of Magnesia 30 Ml Oral.Susp) 30 ml PO DAILY PRN PRN Reason: Constipation Trazodone HCl (Trazodone Hcl 50 Mg Tablet) 50 mg PO BEDTIME PRN PRN Reason: Insomnia Allergies Allergies Allergy/AdvReac Type Severity Reaction Status Date / Time No Known Allergies Allergy Verified 02/19/22 03:39 [No Known Allergies*] Mental Status Exam Mental Status Exam Narrative: A&O except to situation. In casual attire, not malodorous, overweight. Poor eye contact, attentive. No Tics or Tremors. No abnormal involuntary movements. Calm, cooperative, engaged. Non-pressured speech, spontaneous with regular rate and rhythm, normal volume and prosody. No prolonged speech latency or dysarthria. Mood is ?fine,? affect is euthymic. Denies SI/SIB/HI upon inquiry. Currently endorses AH. Denies VH. Endorses paranoid delusional thought content. Thoughts are disorganized. No known cognitive or memory impairment. Insight/ Judgment limited but adequate. Assessment & Plan Assessment & Plan (1) Schizophrenia, paranoid, chronic with acute exacerbation: Status: Acute Code(s): F20.0 - Paranoid schizophrenia Plan Nura is a 26 y.o. male who carries a dx of paranoid schizophrenia. Hx of AH, has fixed delusion of believing neighbors are talking about him. Has DMH and ACCS services through [facility]. No Catarino's order. Hx of med non-adherence upon dis charge. Plan: Pt is refusing to trial higher dose of haldol or depakote, does not want med changes. Refusing lab work at this time, including VPA level. Q15 min safety checks, CV Monitor response to medications. Monitor for safety in the milieu. Discharge on stabilization. Patient seen. Chart reviewed. Discussed with team. Obtain collateral contact info as needed Patient educated on: medication risk/benefits Reason for continued inpatient stay Substantial Risk for: inability to function, rapid decompensation and med/psych decompensation
[2022-02-23 18:00] VITALS: BP 129/75; PULSE 100; RESP 16; TEMP 36.3; O2SAT 99
[2022-02-23] MEDS: Divalproex Sodium ER 500 MG TAB.ER.24H PO (20:56)
[2022-02-23] MEDS: Benztropine Mesylate 0.5 MG TABLET PO (20:57)
[2022-02-23] MEDS: HaloperidoL 5 MG TABLET PO (20:58)
[2022-02-24 06:00] VITALS: BP 111/58; PULSE 82; RESP 16; TEMP 36.5; O2SAT 96
--- NOTE | 2022-02-24 17:00 | P.PNPSI_ITS ---
Subjective Subjective Date of Service: 02/24/22 Reason For Visit: schizoaffective Interim History: 02/24: H and P reviewed . Denies all Sx In bed with perfunctory polite responses. Has been med compliant. 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 In casual attire, not malodorous, overweight. Poor eye contact, attentive. No Tics or Tremors. No abnormal involuntary movements. Calm, cooperative, engaged. Non-pressured speech, spontaneous with regular rate and rhythm, normal volume and prosody. No prolonged speech latency or dysarthria. Mood is ?fine,? affect is euthymic. Denies SI/SIB/HI upon inquiry. Currently endorses AH. Denies VH. Endorses paranoid delusional thought content. Thoughts are disorganized. No known cognitive or memory impairment. Insight/ Judgment limited but adequate. Diagnostics Vital Signs (24Hr): Vital Signs - 24 hr 02/23/22 18:00 02/24/22 06:00 Temperature 97.4 F 97.7 F Pulse Rate 100 82 Respiratory Rate 16 16 Blood Pressure 129/75 111/58 L Pulse Oximetry 99 96 BMI result Body Mass Index 36.8 Medications Medications Current Medications Acetaminophen (Acetaminophen 325 Mg Tablet) 650 mg PO Q6H PRN PRN Reason: Headache/Pain Mild Scale (1-3) Al Hydroxide/Mg Hydroxide (Magnesium Hydrox/Alum Hydrox 30 Ml Oral.Susp) 30 ml PO Q6H PRN PRN Reason: Heartburn/Nausea Albuterol Sulfate (Albuterol Sulfate 90 Mcg 8 Gm Inhaler) 2 puff INHALE RQ4H PRN PRN Reason: Shortness Of Breath Benztropine Mesylate (Benztropine Mesylate 0.5 Mg Tablet) 0.5 mg PO BEDTIME [facility] Last Admin: 02/23/22 20:57 Dose: 0.5 mg Documented by: Divalproex Sodium (Divalproex Sodium Er 500 Mg Tab.Er.24h) 500 mg PO BEDTIME [facility] Last Admin: 02/23/22 20:56 Dose: 500 mg Documented by: Haloperidol (Haloperidol 5 Mg Tablet) 5 mg PO BEDTIME [facility] Last Admin: 02/23/22 20:58 Dose: 5 mg Documented by: Hydroxyzine HCl (Hydroxyzine Hcl 25 Mg Tablet) 25 mg PO Q6H PRN PRN Reason: Anxiety Magnesium Hydroxide (Milk Of Magnesia 30 Ml Oral.Susp) 30 ml PO DAILY PRN PRN Reason: Constipation Trazodone HCl (Trazodone Hcl 50 Mg Tablet) 50 mg PO BEDTIME PRN PRN Reason: Insomnia Allergies Allergies Allergy/AdvReac Type Severity Reaction Status Date / Time No Known Allergies Allergy Verified 02/19/22 03:39 [No Known Allergies*] Assessment & Plan Assessment & Plan (1) Schizophrenia, paranoid, chronic with acute exacerbation: Status: Acute Code(s): F20.0 - Paranoid schizophrenia Plan Nura is a 26 y.o. male who carries a dx of paranoid schizophrenia. Hx of AH, has fixed delusion of believing neighbors are talking about him. Has DMH and ACCS services through [facility]. No Catarino's order. Hx of med non-adherence upon discharge. Plan: Pt is refusing to trial higher dose of haldol or depakote, does not want med changes. Refusing lab work at this time, including VPA level. Q15 min safety checks, CV Monitor response to medications. Monitor for safety in the milieu. Discharge on stabilization. Patient seen. Chart reviewed. Discussed with team. Obtain collateral contact info as needed 02/24: Ct treatment plan I spent minutes with the patient and/or on the patient floor today, greater than?50% of which was spent counseling/coordinating care. Reason for contiued inpatient stay Substantial Risk for: harm to self and rapid decompensation
[2022-02-24 17:03] VITALS: BP 122/60; PULSE 113; RESP 16; TEMP 36.2; O2SAT 96
--- NOTE | 2022-02-25 05:22 | HO.PSYCHPN ---
Subjective Subjective Date of Service: 02/25/22 Reason For Visit: schizoaffective Interim History: 02/24: H and P reviewed . Denies all Sx In bed with perfunctory polite responses. Has been med compliant. Paranoid demeanor 02/25: Today was intimidating with an intense paranoid stare. Refused meds. Paranoid. 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 In casual attire, not malodorous, overweight. Poor eye contact, attentive. No Tics or Tremors. No abnormal involuntary movements. Calm, cooperative, engaged. Non-pressured speech, spontaneous with regular rate and rhythm, normal volume and prosody. No prolonged speech latency or dysarthria. Mood is ?fine,? affect is euthymic. Denies SI/SIB/HI upon inquiry. Currently endorses AH. Denies VH. Endorses paranoid delusional thought content. Thoughts are disorganized. No known cognitive or memory impairment. Insight/ Judgment limited but adequate. Diagnostics Vital Signs (24Hr): Vital Signs - 24 hr 02/24/22 06:00 02/24/22 17:03 Temperature 97.7 F 97.2 F Pulse Rate 82 113 H Respiratory Rate 16 16 Blood Pressure 111/58 L 122/60 Pulse Oximetry 96 96 BMI result Body Mass Index 36.8 Medications Medications Current Medications Acetaminophen (Acetaminophen 325 Mg Tablet) 650 mg PO Q6H PRN PRN Reason: Headache/Pain Mild Scale (1-3) Al Hydroxide/Mg Hydroxide (Magnesium Hydrox/Alum Hydrox 30 Ml Oral.Susp) 30 ml PO Q6H PRN PRN Reason: Heartburn/Nausea Albuterol Sulfate (Albuterol Sulfate 90 Mcg 8 Gm Inhaler) 2 puff INHALE RQ4H PRN PRN Reason: Shortness Of Breath Benztropine Mesylate (Benztropine Mesylate 0.5 Mg Tablet) 0.5 mg PO BEDTIME [facility] Last Admin: 02/25/22 02:49 Dose: Not Given Documented by: Divalproex Sodium (Divalproex Sodium Er 500 Mg Tab.Er.24h) 500 mg PO BEDTIME [facility] Last Admin: 02/25/22 02:49 Dose: Not Given Documented by: Haloperidol (Haloperidol 5 Mg Tablet) 5 mg PO BEDTIME [facility] Last Admin: 02/25/22 02:49 Dose: Not Given Documented by: Hydroxyzine HCl (Hydroxyzine Hcl 25 Mg Tablet) 25 mg PO Q6H PRN PRN Reason: Anxiety Magnesium Hydroxide (Milk Of Magnesia 30 Ml Oral.Susp) 30 ml PO DAILY PRN PRN Reason: Constipation Trazodone HCl (Trazodone Hcl 50 Mg Tablet) 50 mg PO BEDTIME PRN PRN Reason: Insomnia Allergies Allergies Allergy/AdvReac Type Severity Reaction Status Date / Time No Known Allergies Allergy Verified 02/19/22 03:39 [No Known Allergies*] Assessment & Plan Assessment & Plan (1) Schizophrenia, paranoid, chronic with acute exacerbation: Status: Acute Code(s): F20.0 - Paranoid schizophrenia Plan Nura is a 26 y.o. male who carries a dx of paranoid schizophrenia. Hx of AH, has fixed delusion of believing neighbors are talking about him. Has DMH and ACCS services through [facility]. No Catarino's order. Hx of med non-adherence upon discharge. Plan: Pt is refusing to trial higher dose of haldol or depakote, does not want med changes. Refusing lab work at this time, including VPA level. Q15 min safety checks, CV Monitor response to medications. Monitor for safety in the milieu. Discharge on stabilization. Patient seen. Chart reviewed. Discussed with team. Obtain collateral contact info as needed 02/24: Ct treatment plan 02/25: Ct Rx plan. May need committment. Lacks insight and is non compliant with meds. I spent minutes with the patient and/or on the patient floor today, greater than?50% of which was spent counseling/coordinating care. Reason for contiued inpatient stay Substantial Risk for: harm to others and rapid decompensation
[2022-02-25 06:00] VITALS: BP 157/87; PULSE 107; RESP 16; TEMP 36.3; O2SAT 98
[2022-02-26 16:45] VITALS: BP 130/67; PULSE 94; TEMP 37
--- NOTE | 2022-02-26 17:19 | P.PNPSI_ITS ---
Subjective Subjective Date of Service: 02/26/22 Reason For Visit: schizoaffective Interim History: Patient seen and discussed with team. Patient evaluated today and upon interview he reports he is depressed. He reports his sx are worse when he is alone, struggles to be at his apartment alone, endorses AH that are negative towards him, paranoid ideations. Says his sleep is poor at night as he is waking up. Energy is low. Discussed medications and pt says I dont care. He appears apathetic, depressed. In the milieu, patient is safe, isolative or pacing the halls. Denies SI/SIB/HI upon inquiry. Says he feels safe on the unit. Medication Compliance: Yes Side effects from medications: No Attending Groups: No Review of Systems Acute medical concerns: No Medical Review of Systems: unchanged Mental Status Exam Mental Status Exam Narrative: A&O except to situation. In casual attire, not malodorous, overweight. Poor eye contact, attentive. No Tics or Tremors. No abnormal involuntary movements. Calm, guarded, difficult to engage. Non-pressured speech, spontaneous with regular rate and rhythm, normal volume and prosody. No prolonged speech latency or dysarthria. Mood is ?depressed,? affect is flat, depressed. Denies SI/SIB/HI upon inquiry. Currently endorses AH. Denies VH. Endorses paranoid delusional thought content. Thoughts are preoccupied. No known cognitive or memory impairment. Insight/ Judgment limited but adequate. Diagnostics Vital Signs (24Hr): BMI result Body Mass Index 36.8 Medications Medications Current Medications Acetaminophen (Acetaminophen 325 Mg Tablet) 650 mg PO Q6H PRN PRN Reason: Headache/Pain Mild Scale (1-3) Al Hydroxide/Mg Hydroxide (Magnesium Hydrox/Alum Hydrox 30 Ml Oral.Susp) 30 ml PO Q6H PRN PRN Reason: Heartburn/Nausea Albuterol Sulfate (Albuterol Sulfate 90 Mcg 8 Gm Inhaler) 2 puff INHALE RQ4H PRN PRN Reason: Shortness Of Breath Benztropine Mesylate (Benztropine Mesylate 0.5 Mg Tablet) 0.5 mg PO BEDTIME [facility] Last Admin: 02/25/22 23:19 Dose: Not Given Documented by: Divalproex Sodium (Divalproex Sodium Er 500 Mg Tab.Er.24h) 500 mg PO BEDTIME [facility] Last Admin: 02/25/22 23:19 Dose: Not Given Documented by: Haloperidol (Haloperidol 5 Mg Tablet) 5 mg PO BEDTIME [facility] Last Admin: 02/25/22 23:19 Dose: Not Given Documented by: Hydroxyzine HCl (Hydroxyzine Hcl 25 Mg Tablet) 25 mg PO Q6H PRN PRN Reason: Anxiety Magnesium Hydroxide (Milk Of Magnesia 30 Ml Oral.Susp) 30 ml PO DAILY PRN PRN Reason: Constipation Trazodone HCl (Trazodone Hcl 50 Mg Tablet) 50 mg PO BEDTIME PRN PRN Reason: Insomnia Allergies Allergies Allergy/AdvReac Type Severity Reaction Status Date / Time No Known Allergies Allergy Verified 02/19/22 03:39 [No Known Allergies*] Assessment & Plan Assessment & Plan (1) Schizophrenia, paranoid, chronic with acute exacerbation: Status: Acute Code(s): F20.0 - Paranoid schizophrenia Plan Nura is a 26 y.o. male who carries a dx of paranoid schizophrenia. Hx of AH, has fixed delusion of believing neighbors are talking about him. Has DMH and ACCS services through [facility]. No Catarino's order. Hx of med non-adherence upon discharge. Plan: Pt is refusing to trial higher dose of haldol or depakote, does not want med changes. Refusing lab work at this time, including VPA level. Q15 min safety checks, CV Monitor response to medications. Monitor for safety in the milieu. Discharge on stabilization. Patient seen. Chart reviewed. Discussed with team. Obtain collateral contact info as needed 02/24: Ct treatment plan 02/25: Ct Rx plan. May need committment. Lacks insight and is non compliant with meds. 02/26: Pt adamantly does not want to increase haldol or depakote. Will start seroquel 300 mg QHS for sx of psychotic depression, has not had adequate trial on seroquel. May help with poor sleep. I spent minutes with the patient and/or on the patient floor today, greater than?50% of which was spent counseling/coordinating care. Patient educated on: medication risk/benefits Reason for contiued inpatient stay Substantial Risk for: inability to function, rapid decompensation and med/psych decompensation
[2022-02-27 10:30] VITALS: BP 103/69; PULSE 120; RESP 20; TEMP 36.4; O2SAT 97
--- NOTE | 2022-02-27 10:33 | HO.PSYCHPN ---
Subjective Subjective Date of Service: 02/27/22 Reason For Visit: schizoaffective Interim History: Pt lying in bed and says he's not that good. Aircraft Accessories Mechanic inquires and pt denies any SI or HI but says i have voices. He says the medications don't help and that's why he's not been taking them. Aircraft Accessories Mechanic offers to try other meds but patient says I do not mix pills. He says the voices are of his neighbor but he has no thoughts or plans to harm his neighbor in any way. Staff corroborates this has been consistent. Patient did sleep well last night. Aircraft Accessories Mechanic discussed patient's 3 day notice which is due tomorrow. Aircraft Accessories Mechanic offered for patient to stay for treatment, including trial of untested medications to see if that be more helpful; however press writer agreed with patient that he is not in imminent risk for harm to himself or others and that his request for discharge will be honored. Mental Status Exam Mental Status Exam Narrative: Pt is alert and oriented; behavior is cooperative and calm; patient is not in distress; dressed in casual attire, wearing tank top and with adequate hygiene; mood is described as not good and affect congruent; eye contact minimal; Speech is normal rate, volume and prosody and not pressured; no psychomotor agitation/retardation present; thought process is organized and goal directed; Thought content is dealing with AH; otherwise pertinent to relevant topics; Denies SI/HI. AH present; Patients insight and judgment are impaired but adequate. Diagnostics Vital Signs (24Hr): Vital Signs - 24 hr 02/26/22 16:45 02/27/22 10:30 Temperature 98.6 F 97.6 F Pulse Rate 94 120 H Respiratory Rate 20 Blood Pressure 130/67 103/69 Pulse Oximetry 97 BMI result Body Mass Index 36.8 Medications Medications Current Medications Acetaminophen (Acetaminophen 325 Mg Tablet) 650 mg PO Q6H PRN PRN Reason: Headache/Pain Mild Scale (1-3) Al Hydroxide/Mg Hydroxide (Magnesium Hydrox/Alum Hydrox 30 Ml Oral.Susp) 30 ml PO Q6H PRN PRN Reason: Heartburn/Nausea Albuterol Sulfate (Albuterol Sulfate 90 Mcg 8 Gm Inhaler) 2 puff INHALE RQ4H PRN PRN Reason: Shortness Of Breath Benztropine Mesylate (Benztropine Mesylate 0.5 Mg Tablet) 0.5 mg PO BEDTIME [facility] Last Admin: 02/26/22 22:13 Dose: Not Given Documented by: Clonidine HCl (Clonidine Hcl 0.1 Mg Tablet) 0.1 mg PO TID PRN; Protocol PRN Reason: hyperarousal Divalproex Sodium (Divalproex Sodium Er 500 Mg Tab.Er.24h) 500 mg PO BEDTIME [facility] Last Admin: 02/26/22 22:13 Dose: Not Given Documented by: Haloperidol (Haloperidol 5 Mg Tablet) 5 mg PO BEDTIME [facility] Last Admin: 02/26/22 22:14 Dose: Not Given Documented by: Hydroxyzine HCl (Hydroxyzine Hcl 25 Mg Tablet) 25 mg PO Q6H PRN PRN Reason: Anxiety Magnesium Hydroxide (Milk Of Magnesia 30 Ml Oral.Susp) 30 ml PO DAILY PRN PRN Reason: Constipation Quetiapine Fumarate (Quetiapine Fumarate 300 Mg Tablet) 300 mg PO BEDTIME [facility] Last Admin: 02/26/22 22:14 Dose: Not Given Documented by: Trazodone HCl (Trazodone Hcl 50 Mg Tablet) 50 mg PO BEDTIME PRN PRN Reason: Insomnia Allergies Allergies Allergy/AdvReac Type Severity Reaction Status Date / Time No Known Allergies Allergy Verified 02/19/22 03:39 [No Known Allergies*] Assessment & Plan Assessment & Plan (1) Schizophrenia, paranoid, chronic with acute exacerbation: Status: Acute Code(s): F20.0 - Paranoid schizophrenia Plan Nura is a 26 y.o. male who carries a dx of paranoid schizophrenia. Hx of AH, has fixed delusion of believing neighbors are talking about him. Has DMH and ACCS services through [facility][NOTE 3]. No Catarino's order. Hx of med non-adherence upon discharge. 02/24: Ct treatment plan 02/25: Ct Rx plan. May need committment. Lacks insight and is non compliant with meds. 02/26: Pt adamantly does not want to increase haldol or depakote. Will start seroquel 300 mg QHS for sx of psychotic depression, has not had adequate trial on seroquel. May help with poor sleep. 02/27: Pt has been refusing all meds; AH complaints but denies any SI/HI and his demonstrate safe behaviors on the unit Formulation: Aircraft Accessories Mechanic discussed case with colleagues who have worked with patient in the past and also with staff on the unit for current admission. He has a hx of multiple inpatient admissions, including 1 about a month ago with very similar presentation, refusing to take meds, asking for discharge and deemed safe to return to the community. He has been re-presenting to [facility] after being discharged with the same presentation, not dangerous, but asking for help and then refusing treatment wanting discharge. He continues to have auditory hallucinations about his neighbor however he has not expressed any delusional concerns that his neighbor is going to hurt him, just that his neighbors talking about him. Also patient denies any SI or HI or thoughts about harming his neighbor. Patient is also placed a 3 day notice. While press writer has encouraged patient to remain on the unit and accept treatment however so far he has refused. At this point, press writer agrees that he is not in imminent risk for harm to self or others and he does not rise to the level of involuntary commitment. Aircraft Accessories Mechanic will proceed with discharge as patient requests 6. PLAN: CV; on 3 day notice due 02/28 Benztropine Mesylate (Benztropine Mesylate 0.5 Mg Tablet) 0.5 mg PO BEDTIME [facility] Clonidine HCl (Clonidine Hcl 0.1 Mg Tablet) 0.1 mg PO TID PRN; PRN Reason: hyperarousal Divalproex Sodium (Divalproex Sodium Er 500 Mg Tab.Er.24h) 500 mg PO BEDTIME [facility] Haloperidol (Haloperidol 5 Mg Tablet) 5 mg PO BEDTIME [facility] Hydroxyzine HCl (Hydroxyzine Hcl 25 Mg Tablet) 25 mg PO Q6H PRN Anxiety Quetiapine Fumarate (Quetiapine Fumarate 300 Mg Tablet) 300 mg PO BEDTIME [facility] Trazodone HCl (Trazodone Hcl 50 Mg Tablet) 50 mg PO BEDTIME PRN Insomnia [employer]: Monitor response to medications. Monitor for safety in the milieu. Discharge on stabilization. Patient seen. Chart reviewed. Discussed with team. Obtain collateral contact info as needed I spent minutes with the patient and/or on the patient floor today, greater than?50% of which was spent counseling/coordinating care. Patient educated on: medication risk/benefits Informed Consent: further education needed Reason for contiued inpatient stay Substantial Risk for: stable for discharge
[2022-02-27 16:14] VITALS: BP 100/56; PULSE 70
[2022-02-27] MEDS: Divalproex Sodium ER 500 MG TAB.ER.24H PO ×2 (19:53→20:39)
[2022-02-27] MEDS: HaloperidoL 5 MG TABLET PO ×2 (19:53→20:39)
--- NOTE | 2022-02-28 10:37 | HO.PSYCHPN ---
Subjective Subjective Date of Service: 02/28/22 Reason For Visit: schizoaffective Interim History: Patient retracted his 3 day notice and says he wants to stay for treatment, including increasing current medications doses. He says that the auditory hallucinations are far away in currently not specific though he believes they are from his neighbor. He can not really make out what is neighbor saying. He denies any SI or HI. Sulfuric Acid Plant Supervisor discussed the option of clozapine to which patient said he would consider. Later in the day patient told social media senior associate that if the neighbors do not leave him alone and give him a problem he'll fight and not with [his] hands... Mental Status Exam Mental Status Exam Narrative: Pt is alert and oriented; behavior is cooperative and calm; patient is not in distress; dressed in casual attire, wearing tank top, well groomed and with adequate hygiene; mood is described as ok and affect congruent; eye contact minimal; Speech is normal rate, volume and prosody and not pressured; no psychomotor agitation/retardation present; thought process is organized and goal directed; Thought content is dealing with AH; paranoid delusional worries about being presecuted by his neighbors; otherwise pertinent to relevant topics; Denies SI/HI. AH present;? Patients insight and judgment are impaired Diagnostics Vital Signs (24Hr): Vital Signs - 24 hr 02/27/22 16:14 Pulse Rate 70 Blood Pressure 100/56 L BMI result Body Mass Index 36.8 Medications Medications Current Medications Acetaminophen (Acetaminophen 325 Mg Tablet) 650 mg PO Q6H PRN PRN Reason: Headache/Pain Mild Scale (1-3) Al Hydroxide/Mg Hydroxide (Magnesium Hydrox/Alum Hydrox 30 Ml Oral.Susp) 30 ml PO Q6H PRN PRN Reason: Heartburn/Nausea Albuterol Sulfate (Albuterol Sulfate 90 Mcg 8 Gm Inhaler) 2 puff INHALE RQ4H PRN PRN Reason: Shortness Of Breath Benztropine Mesylate (Benztropine Mesylate 0.5 Mg Tablet) 0.5 mg PO BEDTIME JOE Last Admin: 02/27/22 18:32 Dose: Not Given Documented by: Clonidine HCl (Clonidine Hcl 0.1 Mg Tablet) 0.1 mg PO TID PRN; Protocol PRN Reason: hyperarousal Divalproex Sodium (Divalproex Sodium Er 500 Mg Tab.Er.24h) 1,000 mg PO BEDTIME JOE Haloperidol (Haloperidol 5 Mg Tablet) 10 mg PO BEDTIME JOE Hydroxyzine HCl (Hydroxyzine Hcl 25 Mg Tablet) 25 mg PO Q6H PRN PRN Reason: Anxiety Magnesium Hydroxide (Milk Of Magnesia 30 Ml Oral.Susp) 30 ml PO DAILY PRN PRN Reason: Constipation Trazodone HCl (Trazodone Hcl 50 Mg Tablet) 50 mg PO BEDTIME PRN PRN Reason: Insomnia Allergies Allergies Allergy/AdvReac Type Severity Reaction Status Date / Time No Known Allergies Allergy Verified 02/19/22 03:39 [No Known Allergies*] Assessment & Plan Assessment & Plan (1) Schizophrenia, paranoid, chronic with acute exacerbation: Status: Acute Code(s): F20.0 - Paranoid schizophrenia Plan Nura is a 26 y.o. male who carries a dx of paranoid schizophrenia. Hx of AH, has fixed delusion of believing neighbors are talking about him. Has DMH and ACCS services through [facility]. No Catarino's order. Hx of med non-adherence upon discharge. 02/24: Ct treatment plan 02/25: Ct Rx plan. May need committment. Lacks insight and is non compliant with meds. 02/26: Pt adamantly does not want to increase haldol or depakote. Will start seroquel 300 mg QHS for sx of psychotic depression, has not had adequate trial on seroquel. May help with poor sleep. 02/27: Pt has been refusing all meds; AH complaints but denies any SI/HI and his demonstrate safe behaviors on the unit 02/28 retracted 3 day, remains preoccupied with auditory hallucinations of his neighbors and delusional thoughts that his neighbors are persecuting him agrees to stay for treatment; considering clozapine Formulation: Sulfuric Acid Plant Supervisor discussed case with colleagues who have worked with patient in the past and also with staff on the unit for current admission. He has a hx of multiple inpatient admissions, including 1 about a month ago with very similar presentation, refusing to take meds, asking for discharge and deemed safe to return to the community. He has been re-presenting to [facility] after being discharged with the same presentation, not dangerous, but asking for help and then refusing treatment wanting discharge. He continues to have auditory hallucinations about his neighbor however he has not expressed any delusional concerns that his neighbor is going to hurt him, just that his neighbors talking about him. Also patient denies any SI or HI or thoughts about harming his neighbor. Patient is also placed a 3 day notice. While policy writer has encouraged patient to remain on the unit and accept treatment however so far he has refused. At this point, policy writer agrees that he is not in imminent risk for harm to self or others and he does not rise to the level of involuntary commitment. Sulfuric Acid Plant Supervisor will proceed with discharge as patient requests 6. PLAN: CV; (retracted 3 day) Benztropine Mesylate (Benztropine Mesylate 0.5 Mg Tablet) 0.5 mg PO BEDTIME JOE Clonidine HCl (Clonidine Hcl 0.1 Mg Tablet) 0.1 mg PO TID PRN Reason: hyperarousal INCREASED to Divalproex Sodium ER 1000 mg PO BEDTIME JOE; likely increase INCREASED to Haloperidol 10 mg BIDl Hydroxyzine HCl (Hydroxyzine Hcl 25 Mg Tablet) 25 mg PO Q6H PRN Anxiety DC Quetiapine qhs; pt does not want Trazodone HCl 50 mg PO BEDTIME PRN Insomnia Othewise: Monitor response to medications. Monitor for safety in the milieu. Discharge on stabilization. Patient seen. Chart reviewed. Discussed with team. Obtain collateral contact info as needed I spent minutes with the patient and/or on the patient floor today, greater than?50% of which was spent counseling/coordinating care. Patient educated on: diagnosis Informed Consent: further education needed Reason for contiued inpatient stay Substantial Risk for: rapid decompensation
[2022-02-28] MEDS: Divalproex Sodium ER 500 MG TAB.ER.24H 1000 MG PO (21:43)
[2022-02-28] MEDS: HaloperidoL 5 MG TABLET 10 MG PO (21:43)
[2022-02-28] MEDS: cloNIDine HCL 0.1 MG TABLET PO (21:47)
[2022-03-01 06:00] VITALS: BP 104/65; PULSE 118; RESP 18; TEMP 36.7; O2SAT 95
[2022-03-01 12:28] VITALS: BMI 35.7
--- NOTE | 2022-03-01 17:00 | P.PNPSI_ITS ---
Subjective Subjective Date of Service: 03/01/22 Reason For Visit: schizoaffective Interim History: Today patient woke up and demanded discharge. Said he was angry and wanted to leave immediately and a 3 day notice was placed. He refused morning Haldol today. However, later when underwriter solicitation director approach patient to was lying on his bed calmly; He said he wanted to leave because he was sick of being insight and wanted to go for a walk. Patient was ambivalent about starting clozapine and insisted that he has tried it before though he has not. He said he would think about it and allowed underwriter solicitation director to put it in for tonight at bedtime should he choose to try it. Other than this patient very difficult to engage Mental Status Exam Mental Status Exam Narrative: Pt is alert and oriented; behavior is angry, loud, demanding discharge; dressed in casual attire with adequate hygiene; mood is described as irritable and affect congruent, intense; eye contact is intense or minimal; Speech is normal rate but loud volume; normal prosody and not pressured; psychomotor agitation present; thought process is disorganized; Thought content is AH and paranoid delusional worries about being presecuted by his neighbors; Denies SI/HI. AH present;? Patients insight and judgment are impaired Diagnostics Vital Signs (24Hr): Vital Signs - 24 hr 03/01/22 06:00 Temperature 98.0 F Pulse Rate 118 H Respiratory Rate 18 Blood Pressure 104/65 Pulse Oximetry 95 BMI result Body Mass Index 35.7 Medications Medications Current Medications Acetaminophen (Acetaminophen 325 Mg Tablet) 650 mg PO Q6H PRN PRN Reason: Headache/Pain Mild Scale (1-3) Al Hydroxide/Mg Hydroxide (Magnesium Hydrox/Alum Hydrox 30 Ml Oral.Susp) 30 ml PO Q6H PRN PRN Reason: Heartburn/Nausea Albuterol Sulfate (Albuterol Sulfate 90 Mcg 8 Gm Inhaler) 2 puff INHALE RQ4H PRN PRN Reason: Shortness Of Breath Benztropine Mesylate (Benztropine Mesylate 0.5 Mg Tablet) 0.5 mg PO BEDTIME JOE Last Admin: 02/28/22 21:42 Dose: Not Given Documented by: Clonidine HCl (Clonidine Hcl 0.1 Mg Tablet) 0.1 mg PO TID PRN; Protocol PRN Reason: hyperarousal Last Admin: 02/28/22 21:47 Dose: 0.1 mg Documented by: Diphenhydramine HCl (Diphenhydramine Hcl 25 Mg Tablet) 50 mg PO Q4H PRN PRN Reason: agitation Divalproex Sodium (Divalproex Sodium Er 500 Mg Tab.Er.24h) 1,000 mg PO BEDTIME [facility] Last Admin: 02/28/22 21:43 Dose: 1,000 mg Documented by: Haloperidol (Haloperidol 5 Mg Tablet) 10 mg PO BID@1000,2200 [facility] Last Admin: 03/01/22 12:30 Dose: Not Given Documented by: Haloperidol (Haloperidol 5 Mg Tablet) 10 mg PO Q4H PRN PRN Reason: agitation Hydroxyzine HCl (Hydroxyzine Hcl 25 Mg Tablet) 25 mg PO Q6H PRN PRN Reason: Anxiety Lorazepam (Lorazepam 1 Mg Tablet) 2 mg PO Q4H PRN PRN Reason: agitation Magnesium Hydroxide (Milk Of Magnesia 30 Ml Oral.Susp) 30 ml PO DAILY PRN PRN Reason: Constipation Trazodone HCl (Trazodone Hcl 50 Mg Tablet) 50 mg PO BEDTIME PRN PRN Reason: Insomnia Allergies Allergies Allergy/AdvReac Type Severity Reaction Status Date / Time No Known Allergies Allergy Verified 02/19/22 03:39 [No Known Allergies*] Assessment & Plan Assessment & Plan (1) Schizophrenia, paranoid, chronic with acute exacerbation: Status: Acute Code(s): F20.0 - Paranoid schizophrenia Plan Nura is a 26 y.o. male who carries a dx of paranoid schizophrenia. Hx of AH, has fixed delusion of believing neighbors are talking about him. Has DMH and ACCS services through [facility]. No Catarino's order. Hx of med non-adherence upon discharge. HOSPITAL COURSE: 02/24: Ct treatment plan 02/25: Ct Rx plan. May need committment. Lacks insight and is non compliant with meds. 02/26: Pt adamantly does not want to increase haldol or depakote. Will start seroquel 300 mg QHS for sx of psychotic depression, has not had adequate trial on seroquel. May help with poor sleep. 02/27: Pt has been refusing all meds; AH complaints but denies any SI/HI and his demonstrate safe behaviors on the unit 02/28 retracted 3 day, remains preoccupied with auditory hallucinations of his neighbors and delusional thoughts that his neighbors are persecuting him agrees to stay for treatment; considering clozapine 03/01 Angry and demanding discharge and 3 day notice placed; difficult to engage; no insight. Refused morning dose of Haldol. At 1st said he is taking clozapine before and resisted reality testing; however said will still consider Formulation: Wood Heel Flap Inserter discussed case with colleagues who have worked with patient in the past and also with staff on the unit for current admission. He has a hx of multiple inpatient admissions, including 1 about a month ago with very similar presentation, refusing to take meds, asking for discharge and deemed safe to return to the community. He has been re-presenting to [facility] after being discharged with the same presentation, not dangerous, but asking for help and then refusing treatment wanting discharge. He continues to have auditory hallucinations about his neighbor. Initially, he has not expressed any delusional concerns that his neighbor is going to hurt him, just that his neighbors talking about him and so considered discharge. However, Patient soon expressed concerns that his neighbors are plotting to harm him and that he is prepared to harm them back if he needs to defend himself. As patient has presented several times to the emergency room in between admissions he is demonstrating that he is struggling to function in the community. He has a history of medication noncompliance. He has chronic paranoid delusions and auditory hallucinations that his neighbors are going to hurt him which intermittently expand to thoughts about preparing to defend himself. Will continue treatment however is possible that patient may need long-term admission to better establish stability. PLAN: CV;Three day notice START Clozapine 12.5mg qhs once get ANC Benztropine Mesylate (Benztropine Mesylate 0.5 Mg Tablet) 0.5 mg PO BEDTIME JOE Clonidine HCl (Clonidine Hcl 0.1 Mg Tablet) 0.1 mg PO TID PRN Reason: hyperarousal INCREASED to Divalproex Sodium ER 1000 mg PO BEDTIME JOE; likely increase INCREASED to Haloperidol 10 mg BIDl Hydroxyzine HCl (Hydroxyzine Hcl 25 Mg Tablet) 25 mg PO Q6H PRN Anxiety DC Quetiapine qhs; pt does not want Trazodone HCl 50 mg PO BEDTIME PRN Insomnia Othewise: Monitor response to medications. Monitor for safety in the milieu. Discharge on stabilization. Patient seen. Chart reviewed. Discussed with team. Obtain collateral contact info as needed I spent minutes with the patient and/or on the patient floor today, greater than?50% of which was spent counseling/coordinating care. Patient educated on: diagnosis and medication risk/benefits Informed Consent: does not understand Reason for contiued inpatient stay Substantial Risk for: inability to function and rapid decompensation
[2022-03-01 18:33] LABS: MANUAL DIFF FLAG NO
[2022-03-01 18:35] LABS: Basophils Percent Auto 0.4 % (0-2); Eosinophils Absolute Auto 0.2 X10*3/uL (0.0-0.4); Eosinophils Percent Auto 1.9 % (0-4); Hemoglobin 15.3 g/dl (14.0-18.0); Imm Gran Abs Auto 0.02 X10*3/uL (0.00-0.03); Imm Gran Pct Auto 0.2 % (0.0-0.4); Lymphocytes Absolute Auto 3.3 X10*3/uL (1.2-4.9); Lymphocytes Percent Auto 35.8 % (20-40); Mean Corpuscular HGB Conc 34.8 g/dl (31.0-36.0); Mean Corpuscular Hemoglobin 29.3 pg (27.0-33.0); Mean Corpuscular Volume 84.1 fL (80.0-98.0); Monocytes Absolute Auto 0.8 X10*3/uL (0.1-1.2); Monocytes Percent Auto 8.7 % (2-11); Neutrophils Absolute Auto 4.9 x10*3/uL (2.0-8.3); Platelet Count 313 X10*3/uL (160-400); Red Blood Count 5.23 X10*6/uL (4.60-5.80); Red Cell Distribution Width 11.9 % (11.0-16.0); White Blood Count 9.2 X10*3/uL (4.8-10.8)
[2022-03-01] MEDS: Divalproex Sodium ER 500 MG TAB.ER.24H 1000 MG PO (21:17)
[2022-03-01] MEDS: cloZAPine 25 MG TABLET 12.5 MG PO (21:18)
[2022-03-02] MEDS: HaloperidoL 5 MG TABLET 10 MG PO ×2 (09:55→19:33)
[2022-03-02] MEDS: Divalproex Sodium ER 500 MG TAB.ER.24H PO (10:07)
[2022-03-02] MEDS: cloZAPine 25 MG TABLET PO ×2 (10:09→19:33)
[2022-03-02 10:31] VITALS: BP 146/72; PULSE 111; RESP 18; TEMP 36.4; O2SAT 95
--- NOTE | 2022-03-02 17:08 | P.PNPSI_ITS ---
Subjective Subjective Date of Service: 03/02/22 Reason For Visit: schizoaffective Interim History: Patient resting in bed and minimally cooperative, willing to open his eyes and answer only basic questions that he is ok and that he agrees to take clozapine. That said patient went to the nurse's station this morning on his own and asked for his morning medications which Mental Status Exam Mental Status Exam Narrative: Pt is alert and oriented; behavior is cooperative and calm; patient is not in distress; dressed in casual attire, wearing tank top, adequately groomed and with adequate hygiene; mood is described as ok and affect congruent; eye contact minimal; Speech is normal rate, volume and prosody and not pressured; no psychomotor agitation/retardation present; thought process is organized and goal directed; Thought content is dealing with AH; paranoid delusional worries about being presecuted by his neighbors; otherwise pertinent to relevant topics; Denies SI/HI. AH present;? Patients insight and judgment are impaired Diagnostics Vital Signs (24Hr): Vital Signs - 24 hr 03/02/22 10:31 Temperature 97.6 F Pulse Rate 111 H Respiratory Rate 18 Blood Pressure 146/72 H Pulse Oximetry 95 BMI result Body Mass Index 35.7 Labs Results: 03/01/22 18:29 Labs: Laboratory Results - last 48 hr 03/01/22 18:29 WBC 9.2 RBC 5.23 Hgb 15.3 Hct 44.0 MCV 84.1 MCH 29.3 MCHC 34.8 RDW 11.9 Plt Count 313 MPV 10.0 Immature Gran % (Auto) 0.2 Neut % (Auto) 53.0 Lymph % (Auto) 35.8 Frio % (Auto) 8.7 Eos % (Auto) 1.9 Baso % (Auto) 0.4 Lymph # (Auto) 3.3 Frio # (Auto) 0.8 Eos # (Auto) 0.2 Baso # (Auto) 0.0 Abs Immat Gran (auto) 0.02 Absolute Neuts (auto) 4.9 Absolute Nucleated RBC 0.000 Nucleated RBC % (auto) 0.0 Medications Medications Current Medications Acetaminophen (Acetaminophen 325 Mg Tablet) 650 mg PO Q6H PRN PRN Reason: Headache/Pain Mild Scale (1-3) Al Hydroxide/Mg Hydroxide (Magnesium Hydrox/Alum Hydrox 30 Ml Oral.Susp) 30 ml PO Q6H PRN PRN Reason: Heartburn/Nausea Albuterol Sulfate (Albuterol Sulfate 90 Mcg 8 Gm Inhaler) 2 puff INHALE RQ4H PRN PRN Reason: Shortness Of Breath Benztropine Mesylate (Benztropine Mesylate 0.5 Mg Tablet) 0.5 mg PO BEDTIME [facility] Last Admin: 03/01/22 21:22 Dose: Not Given Documented by: Clonidine HCl (Clonidine Hcl 0.1 Mg Tablet) 0.1 mg PO TID PRN; Protocol PRN Reason: hyperarousal Last Admin: 02/28/22 21:47 Dose: 0.1 mg Documented by: Clozapine (Clozapine 25 Mg Tablet) 25 mg PO BID [facility] Diphenhydramine HCl (Diphenhydramine Hcl 25 Mg Tablet) 50 mg PO Q4H PRN PRN Reason: agitation Divalproex Sodium (Divalproex Sodium Er 500 Mg Tab.Er.24h) 1,000 mg PO BEDTIME [facility] Last Admin: 03/01/22 21:17 Dose: 1,000 mg Documented by: Haloperidol (Haloperidol 5 Mg Tablet) 10 mg PO BID@1000,2200 [facility] Last Admin: 03/02/22 09:55 Dose: 10 mg Documented by: Haloperidol (Haloperidol 5 Mg Tablet) 10 mg PO Q4H PRN PRN Reason: agitation Hydroxyzine HCl (Hydroxyzine Hcl 25 Mg Tablet) 25 mg PO Q6H PRN PRN Reason: Anxiety Lorazepam (Lorazepam 1 Mg Tablet) 2 mg PO Q4H PRN PRN Reason: agitation Magnesium Hydroxide (Milk Of Magnesia 30 Ml Oral.Susp) 30 ml PO DAILY PRN PRN Reason: Constipation Trazodone HCl (Trazodone Hcl 50 Mg Tablet) 50 mg PO BEDTIME PRN PRN Reason: Insomnia Allergies Allergies Allergy/AdvReac Type Severity Reaction Status Date / Time No Known Allergies Allergy Verified 02/19/22 03:39 [No Known Allergies*] Assessment & Plan Assessment & Plan (1) Schizophrenia, paranoid, chronic with acute exacerbation: Status: Acute Code(s): F20.0 - Paranoid schizophrenia Plan Nura is a 26 y.o. male who carries a dx of paranoid schizophrenia. Hx of , has fixed delusion of believing neighbors are talking about him. Has DMH and ACCS services through [facility]. No Catarino's order. Hx of med non-adherence upon discharge. HOSPITAL COURSE: 02/24: Ct treatment plan 02/25: Ct Rx plan. May need committment. Lacks insight and is non compliant with meds. 02/26: Pt adamantly does not want to increase haldol or depakote. Will start seroquel 300 mg QHS for sx of psychotic depression, has not had adequate trial on seroquel. May help with poor sleep. 02/27: Pt has been refusing all meds; AH complaints but denies any SI/HI and his demonstrate safe behaviors on the unit 02/28 retracted 3 day, remains preoccupied with auditory hallucinations of his neighbors and delusional thoughts that his neighbors are persecuting him agrees to stay for treatment; considering clozapine 03/01 Angry and demanding discharge and 3 day notice placed; difficult to engage; no insight. Refused morning dose of Haldol. At said he is taking clozapine before and resisted reality testing; however said will still consider 03/02 patient willingly taking clozapine Formulation: Communications Consultant discussed case with colleagues who have worked with patient in the past and also with staff on the unit for current admission. He has a hx of multiple inpatient admissions, including 1 about a month ago with very similar presentation, refusing to take meds, asking for discharge and deemed safe to return to the community. He has been re-presenting to [facility] after being discharged with the same presentation, not dangerous, but asking for help and then refusing treatment wanting discharge. He continues to have auditory hallucinations about his neighbor. Initially, he has not expressed any delusional concerns that his neighbor is going to hurt him, just that his neighbors talking about him and so considered discharge. However, Patient soon expressed concerns that his neighbors are plotting to harm him and that he is p repared to harm them back if he needs to defend himself. As patient has presented several times to the emergency room in between admissions he is demonstrating that he is struggling to function in the community. He has a history of medication noncompliance. He has chronic paranoid delusions and au ditory hallucinations that his neighbors are going to hurt him which intermittently expand to thoughts about preparing to defend himself. Will continue treatment however is possible that patient may need long-term admission to better establish stability. PLAN: CV;Three day notice Increased to Clozapine 25mg BID ANC weekly Continue Divalproex ER 1000 mg PO BEDTIME JOE; ADDED Divalproex ER 500mg Daily Continue Haloperidol 10 mg BID Continue Benztropine Mesylate (Benztropine Mesylate 0.5 Mg Tablet) 0.5 mg PO BEDTIME JOE Continue Clonidine HCl (Clonidine Hcl 0.1 Mg Tablet) 0.1 mg PO TID PRN Reason: hyperarousal Hydroxyzine HCl (Hydroxyzine Hcl 25 Mg Tablet) 25 mg PO Q6H PRN Anxiety DC Quetiapine qhs; pt does not want Trazodone HCl 50 mg PO BEDTIME PRN Insomnia Otherwise: Monitor response to medications. Monitor for safety in the milieu. Discharge on stabilization. Patient seen. Chart reviewed. Discussed with team. Obtain collateral contact info as needed I spent minutes with the patient and/or on the patient floor today, greater than?50% of which was spent counseling/coordinating care. Patient educated on: diagnosis Informed Consent: does not understand Reason for contiued inpatient stay Substantial Risk for: rapid decompensation
[2022-03-02 19:30] VITALS: BP 109/77; PULSE 114; RESP 19; TEMP 36.6; O2SAT 96
[2022-03-02] MEDS: Divalproex Sodium ER 500 MG TAB.ER.24H 1000 MG PO (19:33)
[2022-03-03] MEDS: HaloperidoL 5 MG TABLET 10 MG PO (09:32)
[2022-03-03] MEDS: cloZAPine 25 MG TABLET PO (09:32)
[2022-03-03 09:33] VITALS: BP 144/74; PULSE 113; RESP 18; TEMP 36.6; O2SAT 95
[2022-03-03] MEDS: Divalproex Sodium ER 500 MG TAB.ER.24H PO (09:33)
[2022-03-03] MEDS: Divalproex Sodium ER 250 MG TAB.ER.24H PO (09:33)
--- NOTE | 2022-03-03 12:39 | HO.PSYCHPN ---
Subjective Subjective Date of Service: 03/03/22 Reason For Visit: schizoaffective Subjective Notes: Conditional Voluntary Interim History: Pt reports he is bothered by hearing voices of his neighbors even when they are not around- although he reports he does not think medications will change that, he agrees to try clozaril. He denies SI/HI. He has been taking medications without any problems. Medication Compliance: Yes Side effects from medications: No Review of Systems Review of Systems CVS: No c/o chest pain, palpitations, no SOB [employer]: No c/o dizziness, headache GI: No c/o Nausea, Vomiting, diarrhea, constipation or heartburn Yes all other systems are reviewed and are negative Mental Status Exam Mental Status Exam Narrative: Pt is alert and oriented; behavior is cooperative and calm; patient is not in distress; dressed in casual attire, wearing tank top, adequately groomed and with adequate hygiene; mood is described as ok and affect congruent; eye contact minimal; Speech is normal rate, volume and prosody and not pressured; no psychomotor agitation/retardation present; thought process is organized and goal directed; Thought content is dealing with AH; paranoid delusional worries about being presecuted by his neighbors; otherwise pertinent to relevant topics; Denies SI/HI. AH present;? Patients insight and judgment are impaired Diagnostics Vital Signs (24Hr): Vital Signs - 24 hr 03/04/22 16:29 03/05/22 06:00 Pulse Rate 122 H Respiratory Rate 16 Blood Pressure 123/67 BMI result Body Mass Index 35.7 Labs Results: 03/01/22 18:29 Medications Medications Current Medications Acetaminophen (Acetaminophen 325 Mg Tablet) 650 mg PO Q6H PRN PRN Reason: Headache/Pain Mild Scale (1-3) Last Admin: 03/03/22 22:41 Dose: 650 mg Documented by: Al Hydroxide/Mg Hydroxide (Magnesium Hydrox/Alum Hydrox 30 Ml Oral.Susp) 30 ml PO Q6H PRN PRN Reason: Heartburn/Nausea Albuterol Sulfate (Albuterol Sulfate 90 Mcg 8 Gm Inhaler) 2 puff INHALE RQ4H PRN PRN Reason: Shortness Of Breath Benztropine Mesylate (Benztropine Mesylate 0.5 Mg Tablet) 0.5 mg PO BEDTIME JOE Last Admin: 03/04/22 21:17 Dose: Not Given Documented by: Clonidine HCl (Clonidine Hcl 0.1 Mg Tablet) 0.1 mg PO TID PRN; Protocol PRN Reason: hyperarousal Last Admin: 02/28/22 21:47 Dose: 0.1 mg Documented by: Clozapine (Clozapine 25 Mg Tablet) 25 mg PO BID [facility] Last Admin: 03/05/22 08:27 Dose: 25 mg Documented by: Diphenhydramine HCl (Diphenhydramine Hcl 25 Mg Tablet) 50 mg PO Q4H PRN PRN Reason: agitation Divalproex Sodium (Divalproex Sodium Er 500 Mg Tab.Er.24h) 1,000 mg PO BEDTIME [facility] Last Admin: 03/04/22 21:13 Dose: 1,000 mg Documented by: Divalproex Sodium (Divalproex Sodium Er 250 Mg Tab.Er.24h) 250 mg PO DAILY [facility] Last Admin: 03/05/22 08:27 Dose: 250 mg Documented by: Divalproex Sodium (Divalproex Sodium Er 500 Mg Tab.Er.24h) 500 mg PO DAILY [facility] Last Admin: 03/05/22 08:27 Dose: 500 mg Documented by: Haloperidol (Haloperidol 5 Mg Tablet) 10 mg PO BID@1000,2200 [facility] Last Admin: 03/05/22 08:27 Dose: 10 mg Documented by: Haloperidol (Haloperidol 5 Mg Tablet) 10 mg PO Q4H PRN PRN Reason: agitation Hydroxyzine HCl (Hydroxyzine Hcl 25 Mg Tablet) 25 mg PO Q6H PRN PRN Reason: Anxiety Lorazepam (Lorazepam 1 Mg Tablet) 2 mg PO Q4H PRN PRN Reason: agitation Magnesium Hydroxide (Milk Of Magnesia 30 Ml Oral.Susp) 30 ml PO DAILY PRN PRN Reason: Constipation Trazodone HCl (Trazodone Hcl 50 Mg Tablet) 50 mg PO BEDTIME PRN PRN Reason: Insomnia Allergies Allergies Allergy/AdvReac Type Severity Reaction Status Date / Time No Known Allergies Allergy Verified 02/19/22 03:39 [No Known Allergies*] Assessment & Plan Assessment & Plan (1) Schizophrenia, paranoid, chronic with acute exacerbation: Status: Acute Code(s): F20.0 - Paranoid schizophrenia Zia Lyman is a 26 y.o. male who carries a dx of paranoid schizophrenia. Hx of , has fixed delusion of believing neighbors are talking about him. Has DMH and ACCS services through [facility]. No Catarino's order. Hx of med non-adherence upon discharge. HOSPITAL COURSE: 02/24: Ct treatment plan 02/25: Ct Rx plan. May need committment. Lacks insight and is non compliant with meds. 02/26: Pt adamantly does not want to increase haldol or depakote. Will start seroquel 300 mg QHS for sx of psychotic depression, has not had adequate trial on seroquel. May help with poor sleep. 02/27: Pt has been refusing all meds; AH complaints but denies any SI/HI and his demonstrate safe behaviors on the unit 02/28 retracted 3 day, remains preoccupied with auditory hallucinations of his neighbors and delusional thoughts that his neighbors are persecuting him agrees to stay for treatment; considering clozapine 03/01 Angry and demanding discharge and 3 day notice placed; difficult to engage; no insight. Refused morning dose of Haldol. At said he is taking clozapine before and resisted reality testing; however said will still consider 03/02 patient willingly taking clozapine Formulation: Spanisher discussed case with colleagues who have worked with patient in the past and also with staff on the unit for current admission. He has a hx of multiple inpatient admissions, including 1 about a month ago with very similar presentation, refusing to take meds, asking for discharge and deemed safe to return to the community. He has been re-presenting to [facility] after being discharged with the same presentation, not dangerous, but asking for help and then refusing treatment wanting discharge. He continues to have auditory hallucinations about his neighbor. Initially, he has not expressed any delusional concerns that his neighbor is going to hurt him, just that his neighbors talking about him and so considered discharge. However, Patient soon expressed concerns that his neighbors are plotting to harm him and that he is prepared to harm them back if he needs to defend himself. As patient has presented several times to the emergency room in between admissions he is demonstrating that he is struggling to function in the community. He has a history of medication noncompliance. He has chronic paranoid delusions and auditory hallucinations that his neighbors are going to hurt him which intermittently expand to thoughts about preparing to defend himself. Will continue treatment however is possible that patient may need long-term admission to better establish stability. PLAN: CV;Three day notice Increased to Clozapine 25mg BID [facility] weekly Continue Divalproex ER 1000 mg PO BEDTIME JOE; ADDED Divalproex ER 500mg Daily Continue Haloperidol 10 mg BID Continue Benztropine Mesylate (Benztropine Mesylate 0.5 Mg Tablet) 0.5 mg PO BEDTIME JOE Continue Clonidine HCl (Clonidine Hcl 0.1 Mg Tablet) 0.1 mg PO TID PRN Reason: hyperarousal Hydroxyzine HCl (Hydroxyzine Hcl 25 Mg Tablet) 25 mg PO Q6H PRN Anxiety DC Quetiapine qhs; pt does not want Trazodone HCl 50 mg PO BEDTIME PRN Insomnia Otherwise: Monitor response to medications. Monitor for safety in the milieu. Discharge on stabilization. Patient seen. Chart reviewed. Discussed with team. Obtain collateral contact info as needed 03/03 continue current tx. I spent ____25__ minutes with the patient and/or on the patient floor today, greater than?50% of which was spent counseling/coordinating care. Reason for contiued inpatient stay Substantial Risk for: inability to function
[2022-03-03 16:41] VITALS: RESP 16
[2022-03-03] MEDS: Acetaminophen 325 MG TABLET 650 MG PO (22:41)
[2022-03-04] MEDS: Divalproex Sodium ER 500 MG TAB.ER.24H PO (08:19)
[2022-03-04] MEDS: Divalproex Sodium ER 250 MG TAB.ER.24H PO (08:19)
[2022-03-04] MEDS: cloZAPine 25 MG TABLET PO ×2 (08:19→21:12)
[2022-03-04] MEDS: HaloperidoL 5 MG TABLET 10 MG PO ×2 (08:20→21:12)
[2022-03-04 08:21] VITALS: BP 124/69; PULSE 125; RESP 16; TEMP 37; O2SAT 95
--- NOTE | 2022-03-04 11:25 | HO.PSYCHPN ---
Subjective Subjective Date of Service: 03/04/22 Reason For Visit: schizoaffective Subjective Notes: Conditional Voluntary Interim History: Pt continues to reports he is bothered by hearing voices of his neighbors even when they are not around- although he reports he does not think medications will change that, he agrees to try clozaril. He denies SI/HI. He has been taking medications without any problems and asks for them- also taking haldol. Medication Compliance: Yes Side effects from medications: No Attending Groups: No Review of Systems Review of Systems CVS: No c/o chest pain, palpitations, no SOB MATERIAL EXPEDITER: No c/o dizziness, headache GI: No c/o Nausea, Vomiting, diarrhea, constipation or heartburn Yes all other systems are reviewed and are negative Mental Status Exam Mental Status Exam Narrative: Pt is alert and oriented; behavior is cooperative and calm; patient is not in distress; dressed in casual attire, wearing tank top, adequately groomed and with adequate hygiene; mood is described as ok and affect congruent; eye contact minimal; Speech is normal rate, volume and prosody and not pressured; no psychomotor agitation/retardation present; thought process is organized and goal directed; Thought content is dealing with AH; paranoid delusional worries about being presecuted by his neighbors; otherwise pertinent to relevant topics; Denies SI/HI. AH present;? Patients insight and judgment are impaired Diagnostics Vital Signs (24Hr): Vital Signs - 24 hr 03/04/22 16:29 03/05/22 06:00 Pulse Rate 122 H Respiratory Rate 16 Blood Pressure 123/67 BMI result Body Mass Index 35.7 Labs Results: 03/01/22 18:29 Medications Medications Current Medications Acetaminophen (Acetaminophen 325 Mg Tablet) 650 mg PO Q6H PRN PRN Reason: Headache/Pain Mild Scale (1-3) Last Admin: 03/03/22 22:41 Dose: 650 mg Documented by: Al Hydroxide/Mg Hydroxide (Magnesium Hydrox/Alum Hydrox 30 Ml Oral.Susp) 30 ml PO Q6H PRN PRN Reason: Heartburn/Nausea Albuterol Sulfate (Albuterol Sulfate 90 Mcg 8 Gm Inhaler) 2 puff INHALE RQ4H PRN PRN Reason: Shortness Of Breath Benztropine Mesylate (Benztropine Mesylate 0.5 Mg Tablet) 0.5 mg PO BEDTIME [facility] Last Admin: 03/04/22 21:17 Dose: Not Given Documented by: Clonidine HCl (Clonidine Hcl 0.1 Mg Tablet) 0.1 mg PO TID PRN; Protocol PRN Reason: hyperarousal Last Admin: 02/28/22 21:47 Dose: 0.1 mg Documented by: Clozapine (Clozapine 25 Mg Tablet) 25 mg PO DAILY [facility] Diphenhydramine HCl (Diphenhydramine Hcl 25 Mg Tablet) 50 mg PO Q4H PRN PRN Reason: agitation Divalproex Sodium (Divalproex Sodium Er 500 Mg Tab.Er.24h) 1,000 mg PO BEDTIME [facility] Last Admin: 03/04/22 21:13 Dose: 1,000 mg Documented by: Divalproex Sodium (Divalproex Sodium Er 250 Mg Tab.Er.24h) 250 mg PO DAILY [facility] Last Admin: 03/05/22 08:27 Dose: 250 mg Documented by: Divalproex Sodium (Divalproex Sodium Er 500 Mg Tab.Er.24h) 500 mg PO DAILY [facility] Last Admin: 03/05/22 08:27 Dose: 500 mg Documented by: Haloperidol (Haloperidol 5 Mg Tablet) 10 mg PO BID@1000,2200 [facility] Last Admin: 03/05/22 08:27 Dose: 10 mg Documented by: Haloperidol (Haloperidol 5 Mg Tablet) 10 mg PO Q4H PRN PRN Reason: agitation Hydroxyzine HCl (Hydroxyzine Hcl 25 Mg Tablet) 25 mg PO Q6H PRN PRN Reason: Anxiety Lorazepam (Lorazepam 1 Mg Tablet) 2 mg PO Q4H PRN PRN Reason: agitation Magnesium Hydroxide (Milk Of Magnesia 30 Ml Oral.Susp) 30 ml PO DAILY PRN PRN Reason: Constipation Trazodone HCl (Trazodone Hcl 50 Mg Tablet) 50 mg PO BEDTIME PRN PRN Reason: Insomnia Allergies Allergies Allergy/AdvReac Type Severity Reaction Status Date / Time No Known Allergies Allergy Verified 02/19/22 03:39 [No Known Allergies*] Assessment & Plan Assessment & Plan (1) Schizophrenia, paranoid, chronic with acute exacerbation: Status: Acute Code(s): F20.0 - Paranoid schizophrenia Zia Lyman is a 26 y.o. male who carries a dx of paranoid schizophrenia. Hx of , has fixed delusion of believing neighbors are talking about him. Has DMH and ACCS services through [facility]. No Catarino's order. Hx of med non-adherence upon discharge. HOSPITAL COURSE: 02/24: Ct treatment plan 02/25: Ct Rx plan. May need committment. Lacks insight and is non compliant with meds. 02/26: Pt adamantly does not want to increase haldol or depakote. Will start seroquel 300 mg QHS for sx of psychotic depression, has not had adequate trial on seroquel. May help with poor sleep. 02/27: Pt has been refusing all meds; AH complaints but denies any SI/HI and his demonstrate safe behaviors on the unit 02/28 retracted 3 day, remains preoccupied with auditory hallucinations of his neighbors and delusional thoughts that his neighbors are persecuting him agrees to stay for treatment; considering clozapine 03/01 Angry and demanding discharge and 3 day notice placed; difficult to engage; no insight. Refused morning dose of Haldol. At said he is taking clozapine before and resisted reality testing; however said will still consider 03/02 patient willingly taking clozapine Formulation: Certified Nurse Midwife discussed case with colleagues who have worked with patient in the past and also with staff on the unit for current admission. He has a hx of multiple inpatient admissions, including 1 about a month ago with very similar presentation, refusing to take meds, asking for discharge and deemed safe to return to the community. He has been re-presenting to [facility] after being discharged with the same presentation, not dangerous, but asking for help and then refusing treatment wanting discharge. He continues to have auditory hallucinations about his neighbor. Initially, he has not expressed any delusional concerns that his neighbor is going to hurt him, just that his neighbors talking about him and so considered discharge. However, Patient soon expressed concerns that his neighbors are plotting to harm him and that he is prepared to harm them back if he needs to defend himself. As patient has presented several times to the emergency room in between admissions he is demonstrating that he is struggling to function in the community. He has a history of medication noncompliance. He has chronic paranoid delusions and auditory hallucinations that his neighbors are going to hurt him which intermittently expand to thoughts about preparing to defend himself. Will continue treatment however is possible that patient may need long-term admission to better establish stability. PLAN: CV;Three day notice Increased to Clozapine 25mg BID ANC weekly Continue Divalproex ER 1000 mg PO BEDTIME JOE; ADDED Divalproex ER 500mg Daily Continue Haloperidol 10 mg BID Continue Benztropine Mesylate (Benztropine Mesylate 0.5 Mg Tablet) 0.5 mg PO BEDTIME JOE Continue Clonidine HCl (Clonidine Hcl 0.1 Mg Tablet) 0.1 mg PO TID PRN Reason: hyperarousal Hydroxyzine HCl (Hydroxyzine Hcl 25 Mg Tablet) 25 mg PO Q6H PRN Anxiety DC Quetiapine qhs; pt does not want Trazodone HCl 50 mg PO BEDTIME PRN Insomnia Otherwise: Monitor response to medications. Monitor for safety in the milieu. Discharge on stabilization. Patient seen. Chart reviewed. Discussed with team. Obtain collateral contact info as needed 03/03 continue current tx. 03/04 increase clozaril to 25mg po daily and 50mg po qhs. I spent minutes with the patient and/or on the patient floor today, greater than?50% of which was spent counseling/coordinating care. Reason for contiued inpatient stay Substantial Risk for: inability to function
[2022-03-04 16:29] VITALS: RESP 16
[2022-03-04] MEDS: Divalproex Sodium ER 500 MG TAB.ER.24H 1000 MG PO (21:13)
[2022-03-05 06:00] VITALS: BP 123/67; PULSE 122
[2022-03-05] MEDS: Divalproex Sodium ER 250 MG TAB.ER.24H PO (08:27)
[2022-03-05] MEDS: cloZAPine 25 MG TABLET PO (08:27)
[2022-03-05] MEDS: HaloperidoL 5 MG TABLET 10 MG PO ×2 (08:27→20:55)
[2022-03-05] MEDS: Divalproex Sodium ER 500 MG TAB.ER.24H PO (08:27)
--- NOTE | 2022-03-05 16:28 | HO.PSYCHPN ---
Subjective Subjective Date of Service: 03/05/22 Reason For Visit: schizoaffective Interim History: Patient reportedly had a better weekend than usual though he did get agitated towards a staff did make a threatening gesture with his hand as if he would punch. Patient has been taking clozapine which was increased. Today he was irritated on approach and said he wanted to discharge because he had a pay rent. He said are you going to pay my rent? no? then discharge me. Flap Lining Binder explained that patient has very minimal expense for rent which is covered while he is here on the unit by [employer] and is not an issue; however, while this has been explained to patient numerous times he does not seems to grasp it. Patient slept most of the rest of the day and was not Willing to engage further. Mental Status Exam Mental Status Exam Narrative: Pt is alert and oriented; behavior is not cooperative, irritable; dressed in casual attire, wearing casual cloths, adequately groomed and with adequate hygiene; mood is described as i want to go home and affect irritable; eye contact minimal; Speech is normal rate, volume and prosody and not pressured; psychomotor agitation present; thought process is goal directed; Thought content is on discharge; paranoid delusional worries about being persecuted by his neighbors; otherwise pertinent to relevant topics; Denies SI/HI. AH present;? Patients insight and judgment are impaired Diagnostics Vital Signs (24Hr): Vital Signs - 24 hr 03/04/22 16:29 03/05/22 06:00 Pulse Rate 122 H Respiratory Rate 16 Blood Pressure 123/67 BMI result Body Mass Index 35.7 Labs Results: 03/01/22 18:29 Medications Medications Current Medications Acetaminophen (Acetaminophen 325 Mg Tablet) 650 mg PO Q6H PRN PRN Reason: Headache/Pain Mild Scale (1-3) Last Admin: 03/03/22 22:41 Dose: 650 mg Documented by: Al Hydroxide/Mg Hydroxide (Magnesium Hydrox/Alum Hydrox 30 Ml Oral.Susp) 30 ml PO Q6H PRN PRN Reason: Heartburn/Nausea Albuterol Sulfate (Albuterol Sulfate 90 Mcg 8 Gm Inhaler) 2 puff INHALE RQ4H PRN PRN Reason: Shortness Of Breath Benztropine Mesylate (Benztropine Mesylate 0.5 Mg Tablet) 0.5 mg PO BEDTIME [facility] Last Admin: 03/04/22 21:17 Dose: Not Given Documented by: Clonidine HCl (Clonidine Hcl 0.1 Mg Tablet) 0.1 mg PO TID PRN; Protocol PRN Reason: hyperarousal Last Admin: 02/28/22 21:47 Dose: 0.1 mg Documented by: Clozapine (Clozapine 25 Mg Tablet) 25 mg PO DAILY [facility] Clozapine (Clozapine 25 Mg Tablet) 50 mg PO BEDTIME [facility] Diphenhydramine HCl (Diphenhydramine Hcl 25 Mg Tablet) 50 mg PO Q4H PRN PRN Reason: agitation Divalproex Sodium (Divalproex Sodium Er 500 Mg Tab.Er.24h) 1,000 mg PO BEDTIME [facility] Last Admin: 03/04/22 21:13 Dose: 1,000 mg Documented by: Divalproex Sodium (Divalproex Sodium Er 250 Mg Tab.Er.24h) 250 mg PO DAILY [facility] Last Admin: 03/05/22 08:27 Dose: 250 mg Documented by: Divalproex Sodium (Divalproex Sodium Er 500 Mg Tab.Er.24h) 500 mg PO DAILY [facility] Last Admin: 03/05/22 08:27 Dose: 500 mg Documented by: Haloperidol (Haloperidol 5 Mg Tablet) 10 mg PO BID@1000,2200 [facility] Last Admin: 03/05/22 08:27 Dose: 10 mg Documented by: Haloperidol (Haloperidol 5 Mg Tablet) 10 mg PO Q4H PRN PRN Reason: agitation Hydroxyzine HCl (Hydroxyzine Hcl 25 Mg Tablet) 25 mg PO Q6H PRN PRN Reason: Anxiety Lorazepam (Lorazepam 1 Mg Tablet) 2 mg PO Q4H PRN PRN Reason: agitation Magnesium Hydroxide (Milk Of Magnesia 30 Ml Oral.Susp) 30 ml PO DAILY PRN PRN Reason: Constipation Trazodone HCl (Trazodone Hcl 50 Mg Tablet) 50 mg PO BEDTIME PRN PRN Reason: Insomnia Allergies Allergies Allergy/AdvReac Type Severity Reaction Status Date / Time No Known Allergies Allergy Verified 02/19/22 03:39 [No Known Allergies*] Assessment & Plan Assessment & Plan (1) Schizophrenia, paranoid, chronic with acute exacerbation: Status: Acute Code(s): F20.0 - Paranoid schizophrenia Plan Nura is a 26 y.o. male who carries a dx of paranoid schizophrenia. Hx of , has fixed delusion of believing neighbors are talking about him. Has DMH and ACCS services through [facility]. No Catarino's order. Hx of med non-adherence upon discharge. HOSPITAL COURSE: 02/24: Ct treatment plan 02/25: Ct Rx plan. May need committment. Lacks insight and is non compliant with meds. 02/26: Pt adamantly does not want to increase haldol or depakote. Will start seroquel 300 mg QHS for sx of psychotic depression, has not had adequate trial on seroquel. May help with poor sleep. 02/27: Pt has been refusing all meds; complaints but denies any SI/HI and his demonstrate safe behaviors on the unit 02/28 retracted 3 day, remains preoccupied with auditory hallucinations of his neighbors and delusional thoughts that his neighbors are persecuting him agrees to stay for treatment; considering clozapine 03/01 Angry and demanding discharge and 3 day notice placed; difficult to engage; no insight. Refused morning dose of Haldol. At said he is taking clozapine before and resisted reality testing; however said will still consider 03/02 patient willingly taking clozapine Formulation: Certified Pest Control Technician discussed case with colleagues who have worked with patient in the past and also with staff on the unit for current admission. He has a hx of multiple inpatient admissions, including 1 about a month ago with very similar presentation, refusing to take meds, asking for discharge and deemed safe to return to the community. He has been re-presenting to [facility] after being discharged with the same presentation, not dangerous, but asking for help and then refusing treatment wanting discharge. He continues to have auditory hallucinations about his neighbor. Initially, he has not expressed any delusional concerns that his neighbor is going to hurt him, just that his neighbors talking about him and so considered discharge. However, Patient soon expressed concerns that his neighbors are plotting to harm him and that he is prepared to harm them back if he needs to defend himself. As patient has presented several times to the emergency room in between admissions he is demonstrating that he is struggling to function in the community. He has a history of medication noncompliance. He has chronic paranoid delusions and auditory hallucinations that his neighbors are going to hurt him which intermittently expand to thoughts about preparing to defend himself. Will continue treatment however is possible that patient may need long-term admission to better establish stability. PLAN: CV;Three day notice Clozapine 25mg daily Clozapine 50mg qhs ANC weekly Continue Divalproex ER 1000 mg PO BEDTIME JOE; Continue Divalproex ER 750mg Daily Continue Haloperidol 10 mg BID (Plan to taper and dc if Clozapine effective) Continue Benztropine Mesylate (Benztropine Mesylate 0.5 Mg Tablet) 0.5 mg PO BEDTIME JOE Continue Clonidine HCl (Clonidine Hcl 0.1 Mg Tablet) 0.1 mg PO TID PRN Reason: hyperarousal Hydroxyzine HCl (Hydroxyzine Hcl 25 Mg Tablet) 25 mg PO Q6H PRN Anxiety DC Quetiapine qhs; pt does not want Trazodone HCl 50 mg PO BEDTIME PRN Insomnia Otherwise: Monitor response to medications. Monitor for safety in the milieu. Discharge on stabilization. Patient seen. Chart reviewed. Discussed with team. Obtain collateral contact info as needed 03/03 continue current tx. 03/04 increase clozaril to 25mg po daily and 50mg po qhs. I spent minutes with the patient and/or on the patient floor today, greater than?50% of which was spent counseling/coordinating care. Patient educated on: diagnosis and therapeutic strategies Informed Consent: does not understand Reason for contiued inpatient stay Substantial Risk for: rapid decompensation
[2022-03-05 18:00] VITALS: RESP 18
[2022-03-05] MEDS: cloZAPine 25 MG TABLET 50 MG PO (20:55)
[2022-03-05] MEDS: Divalproex Sodium ER 500 MG TAB.ER.24H 1000 MG PO (20:55)
[2022-03-05] MEDS: Benztropine Mesylate 0.5 MG TABLET PO (20:56)
--- NOTE | 2022-03-06 10:26 | P.PNPSI_ITS ---
Subjective Subjective Date of Service: 03/06/22 Reason For Visit: schizoaffective Subjective Notes: Yu Warning (5.3.22) Interim History: Patient disorganized. Patient demanding discharge, getting agitated and yelling. Patient a one point said I want to go anywhere, anywhere anywhere... Patient also said he had a discharge because he needed to pay his rent and could not grasp that his rent will be covered by outside agency [employer] as it has been during his previous admissions. Patient reported hearing voices. He intermittently refuses clozapine and then later sometimes takes it sometimes not. Patient was able to calm down for a while and listen to engineering technical writer and social service worker talk about treatment. Both encouraged patient to remain on the unit and continue to take clozapine to see if this could be effective. Patient was ambivalent and said it is not working and struggled to understand the concept of titration. He then started talking about how from time to time, as an outpatient after he would walk on the streets he would have blood coming from his private parts. Olericulture Professor struggled to understand the connection with this comment and patient's treatment; patient could not explain why he was telling this, however he continued to repeat it. He denies that there is any blood coming from any of his prior reports since this admission. Patient the stopped talking and pulled his shirt up over his nose and his hat down over his eyes and sat there in silence. He would no longer engage and then got up and walked away. Soon afterwards patient became agitated and yelling and postured at and tried to push a staff worker, accusing her of going through his wallet and needing several staff to redirect him (staff worker was not going through was while at; ironically patient had just before asked for someone to go through his wallet to get money to purchase food). Mental Status Exam Mental Status Exam Narrative: Pt is alert and oriented; behavior is not cooperative, irritable; dressed in casual attire, wearing casual cloths, adequately groomed and with adequate hygiene; mood is described as irritable and affect congruent; eye contact mi nimal; Speech is sometimes yelling, other times normal rate, volume and prosody. intermittent psychomotor agitation present; thought process is disorganized; Thought content is on discharge; paranoid delusional worries about being persecuted by his neighbors; sometimes TC can stay pertinent to relevant topics; Denies SI/HI. AH remain;? Patients insight and judgment are impaired Diagnostics Vital Signs (24Hr): Vital Signs - 24 hr 03/05/22 18:00 Respiratory Rate 18 BMI result Body Mass Index 35.7 Labs Results: 03/01/22 18:29 Medications Medications Current Medications Acetaminophen (Acetaminophen 325 Mg Tablet) 650 mg PO Q6H PRN PRN Reason: Headache/Pain Mild Scale (1-3) Last Admin: 03/03/22 22:41 Dose: 650 mg Documented by: Al Hydroxide/Mg Hydroxide (Magnesium Hydrox/Alum Hydrox 30 Ml Oral.Susp) 30 ml PO Q6H PRN PRN Reason: Heartburn/Nausea Albuterol Sulfate (Albuterol Sulfate 90 Mcg 8 Gm Inhaler) 2 puff INHALE RQ4H PRN PRN Reason: Shortness Of Breath Benztropine Mesylate (Benztropine Mesylate 0.5 Mg Tablet) 0.5 mg PO BEDTIME [facility] Last Admin: 03/05/22 20:56 Dose: 0.5 mg Documented by: Clonidine HCl (Clonidine Hcl 0.1 Mg Tablet) 0.1 mg PO TID PRN; Protocol PRN Reason: hyperarousal Last Admin: 02/28/22 21:47 Dose: 0.1 mg Documented by: Clozapine (Clozapine 25 Mg Tablet) 50 mg PO BEDTIME [facility] Last Admin: 03/05/22 20:55 Dose: 50 mg Documented by: Clozapine (Clozapine 25 Mg Tablet) 25 mg PO DAILY [facility] Diphenhydramine HCl (Diphenhydramine Hcl 25 Mg Tablet) 50 mg PO Q4H PRN PRN Reason: agitation Divalproex Sodium (Divalproex Sodium Er 500 Mg Tab.Er.24h) 1,000 mg PO BEDTIME [facility] Last Admin: 03/05/22 20:55 Dose: 1,000 mg Documented by: Divalproex Sodium (Divalproex Sodium Er 250 Mg Tab.Er.24h) 250 mg PO DAILY [facility] Last Admin: 03/06/22 09:27 Dose: 250 mg Documented by: Divalproex Sodium (Divalproex Sodium Er 500 Mg Tab.Er.24h) 500 mg PO DAILY [facility] Last Admin: 03/06/22 09:27 Dose: 500 mg Documented by: Haloperidol (Haloperidol 5 Mg Tablet) 10 mg PO BID@1000,2200 [facility] Last Admin: 03/06/22 09:27 Dose: 10 mg Documented by: Haloperidol (Haloperidol 5 Mg Tablet) 10 mg PO Q4H PRN PRN Reason: agitation Hydroxyzine HCl (Hydroxyzine Hcl 25 Mg Tablet) 25 mg PO Q6H PRN PRN Reason: Anxiety Lorazepam (Lorazepam 1 Mg Tablet) 2 mg PO Q4H PRN PRN Reason: agitation Magnesium Hydroxide (Milk Of Magnesia 30 Ml Oral.Susp) 30 ml PO DAILY PRN PRN Reason: Constipation Trazodone HCl (Trazodone Hcl 50 Mg Tablet) 50 mg PO BEDTIME PRN PRN Reason: Insomnia Allergies Allergies Allergy/AdvReac Type Severity Reaction Status Date / Time No Known Allergies Allergy Verified 02/19/22 03:39 [No Known Allergies*] Assessment & Plan Assessment & Plan (1) Schizophrenia, paranoid, chronic with acute exacerbation: Status: Acute Code(s): F20.0 - Paranoid schizophrenia Plan Nura is a 26 y.o. male who carries a dx of paranoid schizophrenia. Hx of AH, has fixed delusion of believing neighbors are talking about him. Has DMH and ACCS services through [facility]. No Catarino's order. Hx of med non-adherence upon discharge. HOSPITAL COURSE: 02/24: Ct treatment plan 02/25: Ct Rx plan. May need committment. Lacks insight and is non compliant with meds. 02/26: Pt adamantly does not want to increase haldol or depakote. Will start seroquel 300 mg QHS for sx of psychotic depression, has not had adequate trial on seroquel. May help with poor sleep. 02/27: Pt has been refusing all meds; AH complaints but denies any SI/HI and his demonstrate safe behaviors on the unit 02/28 retracted 3 day, remains preoccupied with auditory hallucinations of his neighbors and delusional thoughts that his neighbors are persecuting him agrees to stay for treatment; considering clozapine 03/01 Angry and demanding discharge and 3 day notice placed; difficult to engage; no insight. Refused morning dose of Haldol. At 1st said he is taking clozapine before and resisted reality testing; however said will still consider 03/02 patient willingly taking clozapine 03/06 patient intermittently takes clozapine; he is disorganized in behavior and thought, intermittently yelling and accusing staff and posturing and threatening staff. Patient struggles to understand that his rent is paid for; while talking about a specific topic, patient will intermittently respond with a disorganized irrelevant answer. Patient has failed monotherapy with Seroquel, Palliperidone, Risperdal and Haldol. Will continue to titrate clozapine as patient is willing to see if this can be effective. Patient has a 3 day notice due today 03/06/2022. Team finds that patient is unstable and not safe to return the community as he has ongoing auditory hallucinations and paranoid delusional thoughts that about his neighbors plotting to hurt him. Will file for Civil commitment; also discussed is that patient may need long-term admission to better establish stability. Formulation: Olericulture Professor discussed case with colleagues who have worked with patient in the past and also with staff on the unit for current admission. He has a hx of multiple inpatient admissions, including 1 about a month ago with very similar presentation, refusing to take meds, asking for discharge and deemed safe to return to the community. He has been re-presenting to [facility] after being discharged with the same presentation, not dangerous, but asking for help and then refusing treatment wanting discharge. He continues to have auditory hallucinations about his neighbor. Initially, he has not expressed any delusional concerns that his neighbor is going to hurt him, just that his neighbors talking about him and so considered discharge. However, Patient soon expressed concerns that his neighbors are plotting to harm him and that he is prepared to harm them back if he needs to defend himself. As patient has presented several times to the emergency room in between admissions he is demonstrating that he is struggling to function in the community. He has a history of medication noncompliance. He has chronic paranoid delusions and auditory hallucinations that his neighbors are going to hurt him which intermittently expand to thoughts about preparing to defend himself. Will continue treatment however is possible that patient may need long-term admission to better establish stability. PLAN: CV;Three day notice; File for Civil Comittement: patient is unstable and not safe to return the community as he has ongoing auditory hallucinations and paranoid delusional thoughts that about his neighbors plotting to hurt him. . Continue Clozapine 25mg daily Continue Clozapine 50mg qhs (will titrate as quickly as patient can tolerate) ANC weekly Continue Divalproex ER 1000 mg PO BEDTIME JOE; Continue Divalproex ER 750mg Daily Continue Haloperidol 10 mg BID (Plan to taper and dc if Clozapine effective) Continue Benztropine Mesylate (Benztropine Mesylate 0.5 Mg Tablet) 0.5 mg PO BEDTIME JOE Continue Clonidine HCl (Clonidine Hcl 0.1 Mg Tablet) 0.1 mg PO TID PRN Reason: hyperarousal Hydroxyzine HCl (Hydroxyzine Hcl 25 Mg Tablet) 25 mg PO Q6H PRN Anxiety DC Quetiapine qhs; pt does not want Trazodone HCl 50 mg PO BEDTIME PRN Insomnia MED Trials: Seroquel Palliperidone Risperdal Otherwise: Monitor response to medications. Monitor for safety in the milieu. Discharge on stabilization. Patient seen. Chart reviewed. Discussed with team. Obtain collateral contact info as needed I spent minutes with the patient and/or on the patient floor today, greater than?50% of which was spent counseling/coordinating care. Patient educated on: diagnosis and medication risk/benefits Informed Consent: does not understand Reason for contiued inpatient stay Substantial Risk for: harm to self, harm to others and inability to function
[2022-03-06] MEDS: Divalproex Sodium ER 500 MG TAB.ER.24H PO (12:28)
[2022-03-06] MEDS: HaloperidoL 5 MG TABLET 10 MG PO ×2 (12:28→19:47)
[2022-03-06] MEDS: Divalproex Sodium ER 250 MG TAB.ER.24H PO (12:28)
[2022-03-06] MEDS: cloZAPine 25 MG TABLET PO (12:29)
[2022-03-06 17:42] VITALS: BP 134/84; PULSE 96; RESP 16; TEMP 36.4; O2SAT 99
[2022-03-06] MEDS: cloZAPine 25 MG TABLET 50 MG PO (19:42)
[2022-03-06] MEDS: Divalproex Sodium ER 500 MG TAB.ER.24H 1000 MG PO (19:43)
[2022-03-06] MEDS: Benztropine Mesylate 0.5 MG TABLET PO (19:43)
[2022-03-07] MEDS: Divalproex Sodium ER 500 MG TAB.ER.24H PO (09:42)
[2022-03-07] MEDS: HaloperidoL 5 MG TABLET 10 MG PO ×2 (09:42→20:08)
[2022-03-07] MEDS: Divalproex Sodium ER 250 MG TAB.ER.24H PO (09:42)
[2022-03-07] MEDS: cloZAPine 25 MG TABLET PO (09:56)
[2022-03-07 10:55] VITALS: BP 140/83; PULSE 112; RESP 16; TEMP 36.7; O2SAT 96
--- NOTE | 2022-03-07 16:47 | P.PNPSI_ITS ---
Subjective Subjective Date of Service: 03/07/22 Reason For Visit: schizoaffective Interim History: Patient is lying in bed, awake but not wanting to communicate and difficult to engage. He says that auditory hallucinations remain. Otherwise patient says I just woke up and does not want to talk more Mental Status Exam Mental Status Exam Narrative: Pt is alert and oriented; behavior is not cooperative, irritable; dressed in casual attire, wearing casual cloths, adequately groomed and with adequate hygiene; mood is described as irritable and affect congruent; eye contact minimal; Speech is sometimes yelling other times normal rate, volume and prosody. intermittent psychomotor agitation present; thought process is disorganized; Thought content is on paranoid delusional worries about being persecuted by his neighbors; sometimes TC can stay pertinent to relevant topics; Denies SI/HI. AH remain;? Patients insight and judgment are impaired Diagnostics Vital Signs (24Hr): Vital Signs - 24 hr 03/06/22 17:42 03/07/22 10:55 Temperature 97.6 F 98.1 F Pulse Rate 96 112 H Respiratory Rate 16 16 Blood Pressure 134/84 140/83 H Pulse Oximetry 99 96 BMI result Body Mass Index 35.7 Labs Results: 03/01/22 18:29 Medications Medications Current Medications Acetaminophen (Acetaminophen 325 Mg Tablet) 650 mg PO Q6H PRN PRN Reason: Headache/Pain Mild Scale (1-3) Last Admin: 03/03/22 22:41 Dose: 650 mg Documented by: Al Hydroxide/Mg Hydroxide (Magnesium Hydrox/Alum Hydrox 30 Ml Oral.Susp) 30 ml PO Q6H PRN PRN Reason: Heartburn/Nausea Albuterol Sulfate (Albuterol Sulfate 90 Mcg 8 Gm Inhaler) 2 puff INHALE RQ4H PRN PRN Reason: Shortness Of Breath Benztropine Mesylate (Benztropine Mesylate 0.5 Mg Tablet) 0.5 mg PO BEDTIME JOE Last Admin: 03/06/22 19:43 Dose: 0.5 mg Documented by: Clonidine HCl (Clonidine Hcl 0.1 Mg Tablet) 0.1 mg PO TID PRN; Protocol PRN Reason: hyperarousal Last Admin: 02/28/22 21:47 Dose: 0.1 mg Documented by: Clozapine (Clozapine 25 Mg Tablet) 25 mg PO DAILY ON LICENSE OF [facility] Last Admin: 03/07/22 09:56 Dose: 25 mg Documented by: Clozapine (Clozapine 25 Mg Tablet) 75 mg PO BEDTIME ON LICENSE OF [facility] Diphenhydramine HCl (Diphenhydramine Hcl 25 Mg Tablet) 50 mg PO Q4H PRN PRN Reason: agitation Divalproex Sodium (Divalproex Sodium Er 500 Mg Tab.Er.24h) 1,000 mg PO BEDTIME ON LICENSE OF [facility] Last Admin: 03/06/22 19:43 Dose: 1,000 mg Documented by: Divalproex Sodium (Divalproex Sodium Er 250 Mg Tab.Er.24h) 250 mg PO DAILY ON LICENSE OF [facility] Last Admin: 03/07/22 09:42 Dose: 250 mg Documented by: Divalproex Sodium (Divalproex Sodium Er 500 Mg Tab.Er.24h) 500 mg PO DAILY ON LICENSE [facility] Last Admin: 03/07/22 09:42 Dose: 500 mg Documented by: Haloperidol (Haloperidol 5 Mg Tablet) 10 mg PO BID@1000,2200 ON LICENSE OF [facility] Last Admin: 03/07/22 09:42 Dose: 10 mg Documented by: Haloperidol (Haloperidol 5 Mg Tablet) 10 mg PO Q4H PRN PRN Reason: agitation Hydroxyzine HCl (Hydroxyzine Hcl 25 Mg Tablet) 25 mg PO Q6H PRN PRN Reason: Anxiety Lorazepam (Lorazepam 1 Mg Tablet) 2 mg PO Q4H PRN PRN Reason: agitation Magnesium Hydroxide (Milk Of Magnesia 30 Ml Oral.Susp) 30 ml PO DAILY PRN PRN Reason: Constipation Trazodone HCl (Trazodone Hcl 50 Mg Tablet) 50 mg PO BEDTIME PRN PRN Reason: Insomnia Allergies Allergies Allergy/AdvReac Type Severity Reaction Status Date / Time No Known Allergies Allergy Verified 02/19/22 03:39 [No Known Allergies*] Assessment & Plan Assessment & Plan (1) Schizophrenia, paranoid, chronic with acute exacerbation: Status: Acute Code(s): F20.0 - Paranoid schizophrenia Plan Nura is a 26 y.o. male who carries a dx of paranoid schizophrenia. Hx of AH, has fixed delusion of believing neighbors are talking about him. Has DMH and ACCS services through [facility]. No Catarino's order. Hx of med non-adherence upon discharge. HOSPITAL COURSE: 02/24: Ct treatment plan 02/25: Ct Rx plan. May need committment. Lacks insight and is non compliant with meds. 02/26: Pt adamantly does not want to increase haldol or depakote. Will start seroquel 300 mg QHS for sx of psychotic depression, has not had adequate trial on seroquel. May help with poor sleep. 02/27: Pt has been refusing all meds; AH complaints but denies any SI/HI and his demonstrate safe behaviors on the unit 02/28 retracted 3 day, remains preoccupied with auditory hallucinations of his neighbors and delusional thoughts that his neighbors are persecuting him agrees to stay for treatment; considering clozapine 03/01 Angry and demanding discharge and 3 day notice placed; difficult to engage; no insight.? Refused morning dose of Haldol.? At said he is taking clozapine before and resisted reality testing; however said will still consider 03/02 patient willingly taking clozapine 03/06 patient intermittently takes clozapine; he is disorganized in behavior and thought, intermittently yelling and accusing staff and posturing and threatening staff.? Patient struggles to understand that his rent is paid for; while talking about a specific topic, patient will intermittently respond with a disorganized irrelevant answer.? Patient has failed monotherapy with Seroquel, Palliperidone, Risperdal and Haldol.? Will continue to titrate clozapine as patient is willing to see if this can be effective.? Patient has a 3 day notice due today 03/06/2022 .? Team finds that patient is unstable and not safe to return the community as he has ongoing auditory hallucinations and paranoid delusional thoughts that about his neighbors plotting to hurt him.? Will file for Civil commitment; also discussed is that patient may need long-term admission to better establish stability. 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 He has a hx of multiple inpatient admissions, including 1 about a month ago with very similar presentation, refusing to take meds, asking for discharge and deemed safe to return to the community. He has been re-presenting to [facility] after being discharged with the same presentation, not dangerous, but asking for help and then refusing treatment wanting discharge. He continues to have auditory hallucinations about his neighbor.?Initially, he has not expressed any delusional concerns that his neighbor is going to hurt him, just that his neighbors talking about him and so considered discharge.?However, Patient soon expressed concerns that his neighbors are plotting to harm him and that he is prepared to harm them back if he needs to defend himself.? As patient has presented several times to the emergency room in between admissions he is demonstrating that he is struggling to function in the community.? He has a history of medication noncompliance. He has chronic paranoid delusions and auditory hallucinations that his neighbors are going to hurt him which intermittently expand to thoughts about preparing to defend himself.? Will continue treatment however is possible that patient may need long-term admission to better establish stability. PLAN: [facility] FOR Civil Commitment: patient is unstable and not safe to return the community as he has ongoing auditory hallucinations and paranoid delusional thoughts that about his neighbors plotting to hurt him.? Medication plan: Attempting trial of clozapine; overlapping Haldol/Depakote (which have only been minimally helpful) while seeing if clozapine it can be effective Continue Clozapine 25mg daily INCREASE to Clozapine 75mg qhs (will titrate as quickly as patient can tolerate) ANC weekly Continue Divalproex ER 1000 mg PO BEDTIME JOE; Continue Divalproex ER 750mg Daily Continue Haloperidol 10 mg BID (Plan to taper and dc if Clozapine effective) Continue Benztropine Mesylate (Benztropine Mesylate 0.5 Mg Tablet)? 0.5 mg PO BEDTIME JOE Continue Clonidine HCl (Clonidine Hcl 0.1 Mg Tablet)? 0.1 mg PO TID PRN Reason: hyperarousal Hydroxyzine HCl (Hydroxyzine Hcl 25 Mg Tablet)? 25 mg PO Q6H PRN Anxiety DC Quetiapine qhs; pt does not want Trazodone HCl? 50 mg PO BEDTIME PRN Insomnia MED Trials: Seroquel Palliperidone Risperdal Haldol I spent minutes with the patient and/or on the patient floor today, greater than?50% of which was spent counseling/coordinating care. Reason for contiued inpatient stay Substantial Risk for: harm to self, harm to others, inability to function and rapid decompensation
[2022-03-07 19:09] VITALS: BP 142/71; PULSE 119; TEMP 36.7
[2022-03-07] MEDS: Divalproex Sodium ER 500 MG TAB.ER.24H 1000 MG PO (20:00)
[2022-03-07] MEDS: cloZAPine 25 MG TABLET 75 MG PO (20:00)
[2022-03-07] MEDS: Benztropine Mesylate 0.5 MG TABLET PO (20:01)
[2022-03-08] MEDS: cloZAPine 25 MG TABLET PO (11:33)
[2022-03-08] MEDS: HaloperidoL 5 MG TABLET 10 MG PO (11:33)
[2022-03-08 12:35] VITALS: BP 126/84; PULSE 126; RESP 20; TEMP 36.9; O2SAT 95
--- NOTE | 2022-03-08 14:34 | HO.PSYCHPN ---
Subjective Subjective Date of Service: 03/08/22 Reason For Visit: schizoaffective Interim History: Patient refused lab work this morning multiple times and could not be convinced. He says I want to go home...let me go home this Saturday...i need to pay rent. 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 Patient was not able to be engaged at all any further and walked away from inspector automatic typewriter. Mental Status Exam Mental Status Exam Narrative: Pt is alert and oriented; behavior is not cooperative, irritable; dressed in casual attire, wearing casual cloths, adequately groomed and with adequate hygiene; mood is described as irritable and affect congruent; eye contact minimal; Speech is sometimes yelling other times normal rate, volume and prosody. intermittent psychomotor agitation present; thought process is disorganized; Thought content is on paranoid delusional worries about being persecuted by his neighbors; sometimes TC can stay pertinent to relevant topics; Denies SI/HI. AH remain;? Patients insight and judgment are impaired Diagnostics Vital Signs (24Hr): Vital Signs - 24 hr 03/07/22 19:09 03/08/22 12:35 Temperature 98.1 F 98.4 F Pulse Rate 119 H 126 H Respiratory Rate 20 Blood Pressure 142/71 H 126/84 Pulse Oximetry 95 BMI result Body Mass Index 35.7 Labs Results: 03/01/22 18:29 Medications Medications Current Medications Acetaminophen (Acetaminophen 325 Mg Tablet) 650 mg PO Q6H PRN PRN Reason: Headache/Pain Mild Scale (1-3) Last Admin: 03/03/22 22:41 Dose: 650 mg Documented by: Al Hydroxide/Mg Hydroxide (Magnesium Hydrox/Alum Hydrox 30 Ml Oral.Susp) 30 ml PO Q6H PRN PRN Reason: Heartburn/Nausea Albuterol Sulfate (Albuterol Sulfate 90 Mcg 8 Gm Inhaler) 2 puff INHALE RQ4H PRN PRN Reason: Shortness Of Breath Benztropine Mesylate (Benztropine Mesylate 0.5 Mg Tablet) 0.5 mg PO BEDTIME JOE Last Admin: 03/07/22 20:01 Dose: 0.5 mg Documented by: Clonidine HCl (Clonidine Hcl 0.1 Mg Tablet) 0.1 mg PO TID PRN; Protocol PRN Reason: hyperarousal Last Admin: 02/28/22 21:47 Dose: 0.1 mg Documented by: Clozapine (Clozapine 25 Mg Tablet) 25 mg PO DAILY [facility] Last Admin: 03/08/22 11:33 Dose: 25 mg Documented by: Clozapine (Clozapine 25 Mg Tablet) 75 mg PO BEDTIME [facility] Last Admin: 03/07/22 20:00 Dose: 75 mg Documented by: Diphenhydramine HCl (Diphenhydramine Hcl 25 Mg Tablet) 50 mg PO Q4H PRN PRN Reason: agitation Divalproex Sodium (Divalproex Sodium Er 500 Mg Tab.Er.24h) 1,000 mg PO BEDTIME [facility] Last Admin: 03/07/22 20:00 Dose: 1,000 mg Documented by: Divalproex Sodium (Divalproex Sodium Er 250 Mg Tab.Er.24h) 250 mg PO DAILY [facility] Last Admin: 03/08/22 12:31 Dose: Not Given Documented by: Divalproex Sodium (Divalproex Sodium Er 500 Mg Tab.Er.24h) 500 mg PO DAILY [facility] Last Admin: 03/08/22 12:31 Dose: Not Given Documented by: Haloperidol (Haloperidol 5 Mg Tablet) 10 mg PO BID@1000,2200 [facility] Last Admin: 03/08/22 11:33 Dose: 10 mg Documented by: Haloperidol (Haloperidol 5 Mg Tablet) 10 mg PO Q4H PRN PRN Reason: agitation Hydroxyzine HCl (Hydroxyzine Hcl 25 Mg Tablet) 25 mg PO Q6H PRN PRN Reason: Anxiety Lorazepam (Lorazepam 1 Mg Tablet) 2 mg PO Q4H PRN PRN Reason: agitation Magnesium Hydroxide (Milk Of Magnesia 30 Ml Oral.Susp) 30 ml PO DAILY PRN PRN Reason: Constipation Trazodone HCl (Trazodone Hcl 50 Mg Tablet) 50 mg PO BEDTIME PRN PRN Reason: Insomnia Allergies Allergies Allergy/AdvReac Type Severity Reaction Status Date / Time No Known Allergies Allergy Verified 02/19/22 03:39 [No Known Allergies*] Assessment & Plan Assessment & Plan (1) Schizophrenia, paranoid, chronic with acute exacerbation: Status: Acute Code(s): F20.0 - Paranoid schizophrenia Zia Lyman is a 26 y.o. male who carries a dx of paranoid schizophrenia. Hx of AH, has fixed delusion of believing neighbors are talking about him. Has DMH and ACCS services through [facility]. No Catarino's order. Hx of med non-adherence upon discharge. HOSPITAL COURSE: 02/24: Ct treatment plan 02/25: Ct Rx plan. May need committment. Lacks insight and is non compliant with meds. 02/26: Pt adamantly does not want to increase haldol or depakote. Will start seroquel 300 mg QHS for sx of psychotic depression, has not had adequate trial on seroquel. May help with poor sleep. 02/27: Pt has been refusing all meds; AH complaints but denies any SI/HI and his demonstrate safe behaviors on the unit 02/28 retracted 3 day, remains preoccupied with auditory hallucinations of his neighbors and delusional thoughts that his neighbors are persecuting him agrees to stay for treatment; considering clozapine 03/01 Angry and demanding discharge and 3 day notice placed; difficult to engage; no insight.? Refused morning dose of Haldol.? At said he is taking clozapine before and resisted reality testing; however said will still consider 03/02 patient willingly taking clozapine 03/06 patient intermittently takes clozapine; he is disorganized in behavior and thought, intermittently yelling and accusing staff and posturing and threatening staff.? Patient struggles to understand that his rent is paid for; while talking about a specific topic, patient will intermittently respond with a disorganized irrelevant answer.? Patient has failed monotherapy with Seroquel, Palliperidone, Risperdal and Haldol.? Will continue to titrate clozapine as patient is willing to see if this can be effective.? Patient has a 3 day notice due today 03/06/2022.? Team finds that patient is unstable and not safe to return the community as he has ongoing auditory hallucinations and paranoid delusional thoughts that about his neighbors plotting to hurt him.? Will file for Civil commitment; also discussed is that patient may need long-term admission to better establish stability. 03/08 patient disorganized; refused labs making it difficult to titrate clozapine. 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 He has a hx of multiple inpatient admissions, including 1 about a month ago with very similar presentation, refusing to take meds, asking for discharge and deemed safe to return to the community. He has been re-presenting to [facility] after being discharged with the same presentation, not dangerous, but asking for help and then refusing treatment wanting discharge. He continues to have auditory hallucinations about his neighbor.?Initially, he has not expressed any delusional concerns that his neighbor is going to hurt him, just that his neighbors talking about him and so considered discharge.?However, Patient soon expressed concerns that his neighbors are plotting to harm him and that he is prepared to harm them back if he needs to defend himself.? As patient has presented several times to the emergency room in between admissions he is demonstrating that he is struggling to function in the community.? He has a history of medication noncompliance. He has chronic paranoid delusions and auditory hallucinations that his neighbors are going to hurt him which intermittently expand to thoughts about preparing to defend himself.? Will continue treatment however is possible that patient may need long-term admission to better establish stability. PLAN: [facility] FOR Civil Commitment: patient is unstable and not safe to return the community as he has ongoing auditory hallucinations and paranoid delusional thoughts that about his neighbors plotting to hurt him.? Medication plan: Attempting trial of clozapine; overlapping Haldol/Depakote (which have only been minimally helpful) while seeing if clozapine it can be effective Continue Clozapine 25mg daily continue Clozapine 75mg qhs (will titrate as quickly as patient can tolerate) ANC weekly Continue Divalproex ER 1000 mg PO BEDTIME JOE; Continue Divalproex ER 750mg Daily Continue Haloperidol 10 mg BID (Plan to taper and dc if Clozapine effective) Continue Benztropine Mesylate (Benztropine Mesylate 0.5 Mg Tablet)? 0.5 mg PO BEDTIME JOE Continue Clonidine HCl (Clonidine Hcl 0.1 Mg Tablet)? 0.1 mg PO TID PRN Reason: hyperarousal Hydroxyzine HCl (Hydroxyzine Hcl 25 Mg Tablet)? 25 mg PO Q6H PRN Anxiety DC Quetiapine qhs; pt does not want Trazodone HCl? 50 mg PO BEDTIME PRN Insomnia MED Trials: Seroquel Palliperidone Risperdal Haldol I spent minutes with the patient and/or on the patient floor today, greater than?50% of which was spent counseling/coordinating care. Patient educated on: diagnosis and medication risk/benefits Informed Consent: does not understand Reason for contiued inpatient stay Substantial Risk for: harm to self, harm to others and rapid decompensation
[2022-03-08 15:52] LABS: Ammonia 38 umol/L (13-55)
[2022-03-08 16:01] LABS: Alanine Aminotransferase 76 U/L (0-40); Albumin Level 4.3 g/dL (3.5-5.0); Alkaline Phosphatase 92 U/L (39-117); Aspartate Amino Transferase 37 U/L (5-37); Bilirubin Direct 0.2 mg/dL (0.0-0.5); Bilirubin Total 0.5 mg/dL (0.0-1.0); Total Protein 7.5 g/dL (6.5-8.0); Valproate 78.1 mcg/mL (50.0-100.0)
[2022-03-08 18:00] VITALS: RESP 16
[2022-03-08] MEDS: Divalproex Sodium ER 500 MG TAB.ER.24H 1000 MG PO (20:36)
[2022-03-09] MEDS: Divalproex Sodium ER 500 MG TAB.ER.24H PO (08:14)
[2022-03-09] MEDS: HaloperidoL 5 MG TABLET 10 MG PO ×2 (08:14→21:25)
[2022-03-09] MEDS: cloZAPine 25 MG TABLET PO (08:14)
[2022-03-09] MEDS: Divalproex Sodium ER 250 MG TAB.ER.24H PO (08:14)
[2022-03-09 08:18] VITALS: BP 118/85; PULSE 127; RESP 18; TEMP 36.9; O2SAT 95
--- NOTE | 2022-03-09 10:59 | P.PNPSI_ITS ---
Subjective Subjective Date of Service: 03/09/22 Reason For Visit: schizoaffective Interim History: Patient eventually allowed blood draw last night after hours of nurse encouragement. However he then refused nighttime clozapine dose. This morning patient in bed, quiet, not engageable. He did allow fingerstick to get ANC. Patient's behavior remains disorganized, had some moments being affable, others angry irritable and demanding, sometimes compliant and other times refusing treatment. There does not seem to be a pattern. Mental Status Exam Mental Status Exam Narrative: Pt is alert and oriented; behavior is with limited cooperation, quiet; dressed in casual attire, wearing casual cloths, adequately groomed and with adequate hygiene; mood is described as tired and affect congruent; eye contact minimal; Speech is sometimes yelling other times normal rate, volume and prosody. intermittent psychomotor agitation present; thought process is disorganized; Thought content is on paranoid delusional worries about being persecuted by his neighbors; sometimes TC can stay pertinent to relevant topics; Denies SI/HI. AH remain;? Patients insight and judgment are impaired Diagnostics Vital Signs (24Hr): Vital Signs - 24 hr 03/08/22 12:35 03/08/22 18:00 03/09/22 08:18 Temperature 98.4 F 98.4 F Pulse Rate 126 H 127 H Respiratory Rate 20 16 18 Blood Pressure 126/84 118/85 Pulse Oximetry 95 95 BMI result Body Mass Index 35.7 Labs Results: 03/01/22 18:29 Labs: Laboratory Results - last 48 hr 03/08/22 03/08/22 15:37 15:37 Total Bilirubin 0.5 Direct Bilirubin 0.2 AST 37 ALT 76 H Alkaline Phosphatase 92 D Ammonia 38 Total Protein 7.5 Albumin 4.3 Valproic Acid 78.1 Medications Medications Current Medications Acetaminophen (Acetaminophen 325 Mg Tablet) 650 mg PO Q6H PRN PRN Reason: Headache/Pain Mild Scale (1-3) Last Admin: 03/03/22 22:41 Dose: 650 mg Documented by: Al Hydroxide/Mg Hydroxide (Magnesium Hydrox/Alum Hydrox 30 Ml Oral.Susp) 30 ml PO Q6H PRN PRN Reason: Heartburn/Nausea Albuterol Sulfate (Albuterol Sulfate 90 Mcg 8 Gm Inhaler) 2 puff INHALE RQ4H PRN PRN Reason: Shortness Of Breath Benztropine Mesylate (Benztropine Mesylate 0.5 Mg Tablet) 0.5 mg PO BEDTIME [facility] Last Admin: 03/08/22 20:38 Dose: Not Given Documented by: Clonidine HCl (Clonidine Hcl 0.1 Mg Tablet) 0.1 mg PO TID PRN; Protocol PRN Reason: hyperarousal Last Admin: 02/28/22 21:47 Dose: 0.1 mg Documented by: Clozapine (Clozapine 25 Mg Tablet) 25 mg PO DAILY [facility] Last Admin: 03/09/22 08:14 Dose: 25 mg Documented by: Clozapine (Clozapine 100 Mg Tablet) 100 mg PO BEDTIME [facility] Last Admin: 03/08/22 20:38 Dose: Not Given Documented by: Diphenhydramine HCl (Diphenhydramine Hcl 25 Mg Tablet) 50 mg PO Q4H PRN PRN Reason: agitation Divalproex Sodium (Divalproex Sodium Er 500 Mg Tab.Er.24h) 1,000 mg PO BEDTIME [facility] Last Admin: 03/08/22 20:36 Dose: 1,000 mg Documented by: Divalproex Sodium (Divalproex Sodium Er 250 Mg Tab.Er.24h) 250 mg PO DAILY [facility] Last Admin: 03/09/22 08:14 Dose: 250 mg Documented by: Divalproex Sodium (Divalproex Sodium Er 500 Mg Tab.Er.24h) 500 mg PO DAILY [facility] Last Admin: 03/09/22 08:14 Dose: 500 mg Documented by: Haloperidol (Haloperidol 5 Mg Tablet) 10 mg PO BID@1000,2200 [facility] Last Admin: 03/09/22 08:14 Dose: 10 mg Documented by: Haloperidol (Haloperidol 5 Mg Tablet) 10 mg PO Q4H PRN PRN Reason: agitation Hydroxyzine HCl (Hydroxyzine Hcl 25 Mg Tablet) 25 mg PO Q6H PRN PRN Reason: Anxiety Lidocaine HCl (Lidocaine 4 % Cream Kit) 1 appl TOPICAL DAILY PRN; Protocol PRN Reason: prophylactiinjection site pain Lorazepam (Lorazepam 1 Mg Tablet) 2 mg PO Q4H PRN PRN Reason: agitation Magnesium Hydroxide (Milk Of Magnesia 30 Ml Oral.Susp) 30 ml PO DAILY PRN PRN Reason: Constipation Trazodone HCl (Trazodone Hcl 50 Mg Tablet) 50 mg PO BEDTIME PRN PRN Reason: Insomnia Allergies Allergies Allergy/AdvReac Type Severity Reaction Status Date / Time No Known Allergies Allergy Verified 02/19/22 03:39 [No Known Allergies*] Assessment & Plan Assessment & Plan (1) Schizophrenia, paranoid, chronic with acute exacerbation: Status: Acute Code(s): F20.0 - Paranoid schizophrenia Plan Nura is a 26 y.o. male who carries a dx of paranoid schizophrenia. Hx of AH, has fixed delusion of believing neighbors are talking about him. Has DMH and ACCS services through [facility]. No Catarino's order. Hx of med non-adherence upon discharge. HOSPITAL COURSE: 02/24: Ct treatment plan 02/25: Ct Rx plan. May need committment. Lacks insight and is non compliant with meds. 02/26: Pt adamantly does not want to increase haldol or depakote. Will start seroquel 300 mg QHS for sx of psychotic depression, has not had adequate trial on seroquel. May help with poor sleep. 02/27: Pt has been refusing all meds; AH complaints but denies any SI/HI and his demonstrate safe behaviors on the unit 02/28 retracted 3 day, remains preoccupied with auditory hallucinations of his neighbors and delusional thoughts that his neighbors are persecuting him agrees to stay for treatment; considering clozapine 03/01 Angry and demanding discharge and 3 day notice placed; difficult to engage; no insight.? Refused morning dose of Haldol.? At said he is taking clozapine before and resisted reality testing; however said will still consider 03/02 patient willingly taking clozapine 03/06 patient intermittently takes clozapine; he is disorganized in behavior and thought, intermittently yelling and accusing staff and posturing and threatening staff.? Patient struggles to understand that his rent is paid for; while talking about a specific topic, patient will intermittently respond with a disorganized irrelevant answer.? Patient has failed monotherapy with Seroquel, Palliperidone, Risperdal and Haldol.? Will continue to titrate clozapine as patient is willing to see if this can be effective.? Patient has a 3 day notice due today 03/06/2022.? Team finds that patient is unstable and not safe to return the community as he has ongoing auditory hallucinations and paranoid delusional thoughts that about his neighbors plotting to hurt him.? Will file for Civil commitment; also discussed is that patient may need long-term admission to better establish stability. 5/ patient disorganized; refused labs making it difficult to titrate clozapine. Will continue to trying get patient to allow labs 6 remains disorganized, sometimes adhering to treatment other times refusing it without any clear pattern. Patient is not amenable to logical explanation and his engagement in tx is unpredictable making dosing with Clozapine (and depakote) difficult as it requires periodic blood work and controlled titration. 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 He has a hx of multiple inpatient admissions, including 1 about a month ago with very similar presentation, refusing to take meds, asking for discharge and deemed safe to return to the community. He has been re-presenting to [facility] after being discharged with the same presentation, not dangerous, but asking for help and then refusing treatment wanting discharge. He continues to have rosaline tory hallucinations about his neighbor.?Initially, he has not expressed any delusional concerns that his neighbor is going to hurt him, just that his neighbors talking about him and so considered discharge.?However, Patient soon expressed concerns that his neighbors are plotting to harm him and that he is prepared to harm them back if he needs to defend himself.? As patient has presented several times to the emergency room in between admissions he is demonstrating that he is struggling to function in the community.? He has a history of medication noncompliance. He has chronic paranoid delusions and auditory hallucinations that his neighbors are going to hurt him which intermittently expand to thoughts about preparing to defend himself.? Will continue treatment however is possible that patient may need long-term admission to better establish stability. PLAN: [facility] FOR Civil Commitment: patient is unstable and not safe to return the community as he has ongoing auditory hallucinations and paranoid delusional thoughts that about his neighbors plotting to hurt him.? Medication plan: Attempting trial of clozapine; overlapping Haldol/Depakote (which have only been minimally helpful) while seeing if clozapine it can be effective WILL increase to Continue Clozapine 50mg daily on 03/10 INCREASE to Clozapine 100mg qhs (will titrate as quickly as patient can tolerate) ANC 5/6: 3.5 ANC weekly Continue Divalproex ER 1000 mg PO BEDTIME JOE (depakote level WNL; lft's/ammonia grossly wnl) Continue Divalproex ER 750mg Daily Continue Haloperidol 10 mg BID (Plan to taper and dc if Clozapine effective) Continue Benztropine Mesylate (Benztropine Mesylate 0.5 Mg Tablet)? 0.5 mg PO BEDTIME JOE Continue Clonidine HCl (Clonidine Hcl 0.1 Mg Tablet)? 0.1 mg PO TID PRN Reason: hyperarousal Hydroxyzine HCl (Hydroxyzine Hcl 25 Mg Tablet)? 25 mg PO Q6H PRN Anxiety DC Quetiapine qhs; pt does not want Trazodone HCl? 50 mg PO BEDTIME PRN Insomnia MED Trials: Seroquel Palliperidone Risperdal Haldol I spent minutes with the patient and/or on the patient floor today, greater than?50% of which was spent counseling/coordinating care. Patient educated on: medication risk/benefits Informed Consent: further education needed Reason for contiued inpatient stay Substantial Risk for: harm to self, harm to others and rapid decompensation
[2022-03-09 11:40] LABS: Neut%MD 52.2 %; Neutrophils Absolute Auto 3.5 x10*3/uL (2.0-8.3); WBCANC 6.7 X10*3/uL
[2022-03-09] MEDS: cloZAPine 25 MG TABLET 50 MG PO (12:48)
[2022-03-09 18:00] VITALS: BP 125/70; PULSE 120; RESP 16; TEMP 37; O2SAT 95
[2022-03-09] MEDS: cloZAPine 100 MG TABLET PO (21:23)
[2022-03-09] MEDS: Benztropine Mesylate 0.5 MG TABLET PO (21:25)
[2022-03-09] MEDS: Divalproex Sodium ER 500 MG TAB.ER.24H 1000 MG PO (21:26)
[2022-03-10] MEDS: cloZAPine 25 MG TABLET 50 MG PO (13:26)
[2022-03-10] MEDS: Divalproex Sodium ER 250 MG TAB.ER.24H PO (13:26)
[2022-03-10] MEDS: Divalproex Sodium ER 500 MG TAB.ER.24H PO (13:27)
[2022-03-10] MEDS: HaloperidoL 5 MG TABLET 10 MG PO ×2 (13:27→19:34)
--- NOTE | 2022-03-10 17:16 | HO.PSYCHPN ---
Subjective Subjective Date of Service: 03/10/22 Reason For Visit: schizoaffective Interim History: Late entry for patient seen on 03/10 Patient lying in bed. Does not open eyes to talk to insurance writer. He says he's tired and then when can I leave. He says that he still hearing voices. Patient resists insurance writer's further attempts to engage Mental Status Exam Mental Status Exam Narrative: Pt is alert and oriented; behavior is with limited cooperation, quiet; dressed in casual attire, wearing casual cloths, adequately groomed and with adequate hygiene; mood is described as tired and affect congruent; eye contact minimal; Speech is sometimes yelling other times normal rate, volume and prosody. intermittent psychomotor agitation present; thought process is disorganized; Thought content is on paranoid delusional worries about being persecuted by his neighbors; sometimes TC can stay pertinent to relevant topics; Denies SI/HI. AH remain;? Patients insight and judgment are impaired Diagnostics Vital Signs (24Hr): Vital Signs - 24 hr 03/11/22 14:44 Temperature 98.2 F Pulse Rate 121 H Blood Pressure 128/75 BMI result Body Mass Index 35.7 Labs Results: 03/01/22 18:29 Medications Medications Current Medications Acetaminophen (Acetaminophen 325 Mg Tablet) 650 mg PO Q6H PRN PRN Reason: Headache/Pain Mild Scale (1-3) Last Admin: 03/03/22 22:41 Dose: 650 mg Documented by: Al Hydroxide/Mg Hydroxide (Magnesium Hydrox/Alum Hydrox 30 Ml Oral.Susp) 30 ml PO Q6H PRN PRN Reason: Heartburn/Nausea Albuterol Sulfate (Albuterol Sulfate 90 Mcg 8 Gm Inhaler) 2 puff INHALE RQ4H PRN PRN Reason: Shortness Of Breath Benztropine Mesylate (Benztropine Mesylate 0.5 Mg Tablet) 0.5 mg PO BEDTIME JOE Last Admin: 03/11/22 00:35 Dose: Not Given Documented by: Clonidine HCl (Clonidine Hcl 0.1 Mg Tablet) 0.1 mg PO TID PRN; Protocol PRN Reason: hyperarousal Last Admin: 02/28/22 21:47 Dose: 0.1 mg Documented by: Clozapine (Clozapine 25 Mg Tablet) 50 mg PO DAILY JOE Last Admin: 03/11/22 13:25 Dose: 50 mg Documented by: Clozapine (Clozapine 25 Mg Tablet) 125 mg PO BEDTIME [facility] Diphenhydramine HCl (Diphenhydramine Hcl 25 Mg Tablet) 50 mg PO Q4H PRN PRN Reason: agitation Divalproex Sodium (Divalproex Sodium Er 500 Mg Tab.Er.24h) 1,000 mg PO BEDTIME [facility] Last Admin: 03/10/22 19:35 Dose: 1,000 mg Documented by: Divalproex Sodium (Divalproex Sodium Er 250 Mg Tab.Er.24h) 250 mg PO DAILY [facility] Last Admin: 03/11/22 13:48 Dose: Not Given Documented by: Divalproex Sodium (Divalproex Sodium Er 500 Mg Tab.Er.24h) 500 mg PO DAILY [facility] Last Admin: 03/11/22 13:26 Dose: 500 mg Documented by: Haloperidol (Haloperidol 5 Mg Tablet) 10 mg PO BID@1000,2200 [facility] Last Admin: 03/11/22 13:25 Dose: 10 mg Documented by: Haloperidol (Haloperidol 5 Mg Tablet) 10 mg PO Q4H PRN PRN Reason: agitation Hydroxyzine HCl (Hydroxyzine Hcl 25 Mg Tablet) 25 mg PO Q6H PRN PRN Reason: Anxiety Lidocaine HCl (Lidocaine 4 % Cream Kit) 1 appl TOPICAL DAILY PRN; Protocol PRN Reason: prophylactiinjection site pain Magnesium Hydroxide (Milk Of Magnesia 30 Ml Oral.Susp) 30 ml PO DAILY PRN PRN Reason: Constipation Trazodone HCl (Trazodone Hcl 50 Mg Tablet) 50 mg PO BEDTIME PRN PRN Reason: Insomnia Allergies Allergies Allergy/AdvReac Type Severity Reaction Status Date / Time No Known Allergies Allergy Verified 02/19/22 03:39 [No Known Allergies*] Assessment & Plan Assessment & Plan (1) Schizophrenia, paranoid, chronic with acute exacerbation: Status: Acute Code(s): F20.0 - Paranoid schizophrenia Plan Nura is a 26 y.o. male who carries a dx of paranoid schizophrenia. Hx of AH, has fixed delusion of believing neighbors are talking about him. Has DMH and ACCS services through [facility]. No Catarino's order. Hx of med non-adherence upon discharge. HOSPITAL COURSE: 02/24: Ct treatment plan 02/25: Ct Rx plan. May need committment. Lacks insight and is non compliant with meds. 02/26: Pt adamantly does not want to increase haldol or depakote. Will start seroquel 300 mg QHS for sx of psychotic depression, has not had adequate trial on seroquel. May help with poor sleep. 02/27: Pt has been refusing all meds; AH complaints but denies any SI/HI and his demonstrate safe behaviors on the unit 02/28 retracted 3 day, remains preoccupied with auditory hallucinations of his neighbors and delusional thoughts that his neighbors are persecuting him agrees to stay for treatment; considering clozapine 03/01 Angry and demanding discharge and 3 day notice placed; difficult to engage; no insight.? Refused morning dose of Haldol.? At said he is taking clozapine before and resisted reality testing; however said will still consider 03/02 patient willingly taking clozapine 03/06 patient intermittently takes clozapine; he is disorganized in behavior and thought, intermittently yelling and accusing staff and posturing and threatening staff.? Patient struggles to understand that his rent is paid for; while talking about a specific topic, patient will intermittently respond with a disorganized irrelevant answer.? Patient has failed monotherapy with Seroquel, Palliperidone, Risperdal and Haldol.? Will continue to titrate clozapine as patient is willing to see if this can be effective.? Patient has a 3 day notice due today 03/06/2022.? Team finds that patient is unstable and not safe to return the community as he has ongoing auditory hallucinations and paranoid delusional thoughts that about his neighbors plotting to hurt him.? Will file for Civil commitment; also discussed is that patient may need long-term admission to better establish stability. 03/08 patient disorganized; refused labs making it difficult to titrate clozapine. Will continue to trying get patient to allow labs 03/09 remains disorganized, sometimes adhering to treatment other times refusing it without any clear pattern. Patient is not amenable to logical explanation and his engagement in tx is unpredictable making dosing with Clozapine (and depakote) difficult as it requires periodic blood work and controlled titration. However, Will continue with attempts at clozapine since this seems to be best option for patient to become stabilized 03/10 remains disorganized Formulation: Order Analyst discussed case with colleagues who have worked with patient in the past and also with staff on the unit for current admission. He has a hx of multiple inpatient admissions, including 1 about a month ago with very similar presentation, refusing to take meds, asking for discharge and deemed safe to return to the community. He has been re-presenting to [facility] after being discharged with the same presentation, not dangerous, but asking for help and then refusing treatment wanting discharge. He continues to have auditory hallucinations about his neighbor.?Initially, he has not expressed any delusional concerns that his neighbor is going to hurt him, just that his neighbors talking about him and so considered discharge.?However, Patient soon expressed concerns that his neighbors are plotting to harm him and that he is prepared to harm them back if he needs to defend himself.? As patient has presented several times to the emergency room in between admissions he is demonstrating that he is struggling to function in the community.? He has a history of medication noncompliance. He has chronic paranoid delusions and auditory hallucinations that his neighbors are going to hurt him which intermittently expand to thoughts about preparing to defend himself.? Will continue treatment however is possible that patient may need long-term admission to better establish stability. PLAN: [facility] FOR Civil Commitment: patient is unstable and not safe to return the community as he has ongoing auditory hallucinations and paranoid delusional thoughts that about his neighbors plotting to hurt him.? Medication plan: Attempting trial of clozapine; overlapping Haldol/Depakote (which have only been minimally helpful) while seeing if clozapine it can be effective Continue Clozapine 50mg daily Continue Clozapine 100mg qhs (will titrate as quickly as patient can tolerate) ANC on 03/09: 3.5 ANC weekly Continue Divalproex ER 1000 mg PO BEDTIME JOE (depakote level WNL; lft's/ammonia grossly wnl) Continue Divalproex ER 750mg Daily Continue Haloperidol 10 mg BID (Plan to taper and dc if Clozapine effective) Continue Benztropine Mesylate (Benztropine Mesylate 0.5 Mg Tablet)? 0.5 mg PO BEDTIME JOE Continue Clonidine HCl (Clonidine Hcl 0.1 Mg Tablet)? 0.1 mg PO TID PRN Reason: hyperarousal Hydroxyzine HCl (Hydroxyzine Hcl 25 Mg Tablet)? 25 mg PO Q6H PRN Anxiety DC Quetiapine qhs; pt does not want Trazodone HCl? 50 mg PO BEDTIME PRN Insomnia MED Trials: Seroquel Palliperidone Risperdal Haldol I spent minutes with the patient and/or on the patient floor today, greater than?50% of which was spent counseling/coordinating care. Patient educated on: diagnosis Informed Consent: does not understand Reason for contiued inpatient stay Substantial Risk for: harm to self, harm to others, inability to function and rapid decompensation
[2022-03-10] MEDS: cloZAPine 100 MG TABLET PO (19:33)
[2022-03-10] MEDS: Divalproex Sodium ER 500 MG TAB.ER.24H 1000 MG PO (19:35)
[2022-03-11] MEDS: HaloperidoL 5 MG TABLET 10 MG PO (13:25)
[2022-03-11] MEDS: cloZAPine 25 MG TABLET 50 MG PO (13:25)
[2022-03-11] MEDS: Divalproex Sodium ER 500 MG TAB.ER.24H PO (13:26)
[2022-03-11 14:44] VITALS: BP 128/75; PULSE 121; TEMP 36.8
--- NOTE | 2022-03-11 17:19 | HO.PSYCHPN ---
Subjective Subjective Date of Service: 03/11/22 Reason For Visit: schizoaffective Interim History: Patient says he is fine but otherwise Refuses to engage with casualty underwriter. Mental Status Exam Mental Status Exam Narrative: Pt is alert and oriented; behavior is with limited cooperation, quiet; dressed in casual attire, wearing casual cloths, adequately groomed and with adequate hygiene; mood is described as fine and affect congruent; eye contact minimal; Speech is sometimes yelling other times normal rate, volume and prosody. intermittent psychomotor agitation present; thought process is disorganized; Thought content is on paranoid delusional worries about being persecuted by his neighbors; sometimes TC can stay pertinent to relevant topics; Denies SI/HI. AH remain;? Patients insight and judgment are impaired Diagnostics Vital Signs (24Hr): Vital Signs - 24 hr 03/11/22 14:44 Temperature 98.2 F Pulse Rate 121 H Blood Pressure 128/75 BMI result Body Mass Index 35.7 Labs Results: 03/01/22 18:29 Medications Medications Current Medications Acetaminophen (Acetaminophen 325 Mg Tablet) 650 mg PO Q6H PRN PRN Reason: Headache/Pain Mild Scale (1-3) Last Admin: 03/03/22 22:41 Dose: 650 mg Documented by: Al Hydroxide/Mg Hydroxide (Magnesium Hydrox/Alum Hydrox 30 Ml Oral.Susp) 30 ml PO Q6H PRN PRN Reason: Heartburn/Nausea Albuterol Sulfate (Albuterol Sulfate 90 Mcg 8 Gm Inhaler) 2 puff INHALE RQ4H PRN PRN Reason: Shortness Of Breath Benztropine Mesylate (Benztropine Mesylate 0.5 Mg Tablet) 0.5 mg PO BEDTIME [facility] Last Admin: 03/11/22 00:35 Dose: Not Given Documented by: Clonidine HCl (Clonidine Hcl 0.1 Mg Tablet) 0.1 mg PO TID PRN; Protocol PRN Reason: hyperarousal Last Admin: 02/28/22 21:47 Dose: 0.1 mg Documented by: Clozapine (Clozapine 25 Mg Tablet) 50 mg PO DAILY [facility] Last Admin: 03/11/22 13:25 Dose: 50 mg Documented by: Clozapine (Clozapine 25 Mg Tablet) 125 mg PO BEDTIME JOE Diphenhydramine HCl (Diphenhydramine Hcl 25 Mg Tablet) 50 mg PO Q4H PRN PRN Reason: agitation Divalproex Sodium (Divalproex Sodium Er 500 Mg Tab.Er.24h) 1,000 mg PO BEDTIME [facility] Last Admin: 03/10/22 19:35 Dose: 1,000 mg Documented by: Divalproex Sodium (Divalproex Sodium Er 250 Mg Tab.Er.24h) 250 mg PO DAILY [facility] Last Admin: 03/11/22 13:48 Dose: Not Given Documented by: Divalproex Sodium (Divalproex Sodium Er 500 Mg Tab.Er.24h) 500 mg PO DAILY [facility] Last Admin: 03/11/22 13:26 Dose: 500 mg Documented by: Haloperidol (Haloperidol 5 Mg Tablet) 10 mg PO BID@1000,2200 [facility] Last Admin: 03/11/22 13:25 Dose: 10 mg Documented by: Haloperidol (Haloperidol 5 Mg Tablet) 10 mg PO Q4H PRN PRN Reason: agitation Hydroxyzine HCl (Hydroxyzine Hcl 25 Mg Tablet) 25 mg PO Q6H PRN PRN Reason: Anxiety Lidocaine HCl (Lidocaine 4 % Cream Kit) 1 appl TOPICAL DAILY PRN; Protocol PRN Reason: prophylactiinjection site pain Magnesium Hydroxide (Milk Of Magnesia 30 Ml Oral.Susp) 30 ml PO DAILY PRN PRN Reason: Constipation Trazodone HCl (Trazodone Hcl 50 Mg Tablet) 50 mg PO BEDTIME PRN PRN Reason: Insomnia Allergies Allergies Allergy/AdvReac Type Severity Reaction Status Date / Time No Known Allergies Allergy Verified 02/19/22 03:39 [No Known Allergies*] Assessment & Plan Assessment & Plan (1) Schizophrenia, paranoid, chronic with acute exacerbation: Status: Acute Code(s): F20.0 - Paranoid schizophrenia Plan Nura is a 26 y.o. male who carries a dx of paranoid schizophrenia. Hx of AH, has fixed delusion of believing neighbors are talking about him. Has DMH and ACCS services through [facility][NOTE 3]. No Catarino's order. Hx of med non-adherence upon discharge. HOSPITAL COURSE: 02/24: Ct treatment plan 02/25: Ct Rx plan. May need committment. Lacks insight and is non compliant with meds. 02/26: Pt adamantly does not want to increase haldol or depakote. Will start seroquel 300 mg QHS for sx of psychotic depression, has not had adequate trial on seroquel. May help with poor sleep. 02/27: Pt has been refusing all meds; AH complaints but denies any SI/HI and his demonstrate safe behaviors on the unit 02/28 retracted 3 day, remains preoccupied with auditory hallucinations of his neighbors and delusional thoughts that his neighbors are persecuting him agrees to stay for treatment; considering clozapine 03/01 Angry and demanding discharge and 3 day notice placed; difficult to engage; no insight.? Refused morning dose of Haldol.? At said he is taking clozapine before and resisted reality testing; however said will still consider 03/02 patient willingly taking clozapine 03/06 patient intermittently takes clozapine; he is disorganized in behavior and thought, intermittently yelling and accusing staff and posturing and threatening staff.? Patient struggles to understand that his rent is paid for; while talking about a specific topic, patient will intermittently respond with a disorganized irrelevant answer.? Patient has failed monotherapy with Seroquel, Palliperidone, Risperdal and Haldol.? Will continue to titrate clozapine as patient is willing to see if this can be effective.? Patient has a 3 day notice due today 03/06/2022.? Team finds that patient is unstable and not safe to return the community as he has ongoing auditory hallucinations and paranoid delusional thoughts that about his neighbors plotting to hurt him.? Will file for Civil commitment; also discussed is that patient may need long-term admission to better establish stability. 03/08 patient disorganized; refused labs making it difficult to titrate clozapine. Will continue to trying get patient to allow labs 03/09 remains disorganized, sometimes adhering to treatment other times refusing it without any clear pattern. Patient is not amenable to logical explanation and his engagement in tx is unpredictable making dosing with Clozapine (and depakote) difficult as it requires periodic blood work and controlled titration. However, Will continue with attempts at clozapine since this seems to be best option for patient to become stabilized 03/10 remains disorganized; won't engage; continues to have AH Formulation: Hollow Tile Partition Erector discussed case with colleagues who have worked with patient in the past and also with staff on the unit for current admission. He has a hx of multiple inpatient admissions, including 1 about a month ago with very similar presentation, refusing to take meds, asking for discharge and deemed safe to return to the community. He has been re-presenting to [facility] after being discharged with the same presentation, not dangerous, but asking for help and then refusing treatment wanting discharge. He continues to have auditory hallucinations about his neighbor.?Initially, he has not expressed any delusional concerns that his neighbor is going to hurt him, just that his neighbors talking about him and so considered discharge.?However, Patient soon expressed concerns that his neighbors are plotting to harm him and that he is prepared to harm them back if he needs to defend himself.? As patient has presented several times to the emergency room in between admissions he is demonstrating that he is struggling to function in the community.? He has a history of medication noncompliance. He has chronic paranoid delusions and auditory hallucinations that his neighbors are going to hurt him which intermittently expand to thoughts about preparing to defend himself.? Will continue treatment however is possible that patient may need long-term admission to better establish stability. PLAN: [facility] FOR Civil Commitment: patient is unstable and not safe to return the community as he has ongoing auditory hallucinations and paranoid delusional thoughts that about his neighbors plotting to hurt him.? Medication plan: Attempting trial of clozapine; overlapping Haldol/Depakote (which have only been minimally helpful) while seeing if clozapine it can be effective Continue Clozapine 50mg daily INCREASE to Continue Clozapine 125mg qhs (will titrate as quickly as patient can tolerate) ANC on 03/09: 3.5 ANC weekly Continue Divalproex ER 1000 mg PO BEDTIME JEO (depakote level WNL; lft's/ammonia grossly wnl) Continue Divalproex ER 750mg Daily Continue Haloperidol 10 mg BID (Plan to taper and dc if Clozapine effective) Continue Benztropine Mesylate (Benztropine Mesylate 0.5 Mg Tablet)? 0.5 mg PO BEDTIME JOE Continue Clonidine HCl (Clonidine Hcl 0.1 Mg Tablet)? 0.1 mg PO TID PRN Reason: hyperarousal Hydroxyzine HCl (Hydroxyzine Hcl 25 Mg Tablet)? 25 mg PO Q6H PRN Anxiety DC Quetiapine qhs; pt does not want Trazodone HCl? 50 mg PO BEDTIME PRN Insomnia MED Trials: Seroquel Palliperidone Risperdal Haldol I spent minutes with the patient and/or on the patient floor today, greater than?50% of which was spent counseling/coordinating care. Reason for contiued inpatient stay Substantial Risk for: harm to self, harm to others, inability to function and rapid decompensation
--- NOTE | 2022-03-12 17:11 | HO.PSYCHPN ---
Subjective Subjective Date of Service: 03/12/22 Reason For Visit: schizoaffective Interim History: pt irritable; he said I want to discharge... account underwriter talked about treatment and he said I don't mix pills...I don't mix pills... account underwriter asked about AH to which patient said he continues to hear his neighbors talking about him...Coating Inspector tried to explain how treatment is to help with these AH and that patient keeps coming to the hospital asking for help. Pt said i don't mix pills... and then that he has to pay his rent...asking are you going to pay my rent? are you going to pay my rent? Coating Inspector tried to explain again that his rent is being taken care of by outpatient services, however patient can not understand this and keeps saying no one is paying his rent. Coating Inspector tried to talk about civil commitment but pt said get out of here... and conversation was concluded. Mental Status Exam Mental Status Exam Narrative: Pt is alert and oriented; behavior is with limited cooperation, quiet; dressed in casual attire, wearing casual cloths, adequately groomed and with adequate hygiene; mood is described as irritable and affect congruent; eye contact minimal or intense; Speech is sometimes yelling other times normal rate, volume and prosody. intermittent psychomotor agitation present; thought process is disorganized; Thought content is on paranoid delusional worries about being persecuted by his neighbors; sometimes TC can stay pertinent to relevant topics; Denies SI/HI. AH remain;? Patients insight and judgment are impaired Diagnostics Vital Signs (24Hr): BMI result Body Mass Index 35.7 Labs Results: 03/01/22 18:29 Medications Medications Current Medications Acetaminophen (Acetaminophen 325 Mg Tablet) 650 mg PO Q6H PRN PRN Reason: Headache/Pain Mild Scale (1-3) Last Admin: 03/03/22 22:41 Dose: 650 mg Documented by: Al Hydroxide/Mg Hydroxide (Magnesium Hydrox/Alum Hydrox 30 Ml Oral.Susp) 30 ml PO Q6H PRN PRN Reason: Heartburn/Nausea Albuterol Sulfate (Albuterol Sulfate 90 Mcg 8 Gm Inhaler) 2 puff INHALE RQ4H PRN PRN Reason: Shortness Of Breath Benztropine Mesylate (Benztropine Mesylate 0.5 Mg Tablet) 0.5 mg PO BEDTIME [facility] Last Admin: 03/12/22 09:47 Dose: Not Given Documented by: Clonidine HCl (Clonidine Hcl 0.1 Mg Tablet) 0.1 mg PO TID PRN; Protocol PRN Reason: hyperarousal Last Admin: 02/28/22 21:47 Dose: 0.1 mg Documented by: Clozapine (Clozapine 25 Mg Tablet) 50 mg PO DAILY [facility] Last Admin: 03/12/22 14:31 Dose: 50 mg Documented by: Clozapine (Clozapine 25 Mg Tablet) 125 mg PO BEDTIME [facility] Last Admin: 03/12/22 09:50 Dose: Not Given Documented by: Diphenhydramine HCl (Diphenhydramine Hcl 25 Mg Tablet) 50 mg PO Q4H PRN PRN Reason: agitation Divalproex Sodium (Divalproex Sodium Er 500 Mg Tab.Er.24h) 1,000 mg PO BEDTIME [facility] Last Admin: 03/12/22 09:50 Dose: Not Given Documented by: Divalproex Sodium (Divalproex Sodium Er 250 Mg Tab.Er.24h) 250 mg PO DAILY [facility] Last Admin: 03/12/22 14:31 Dose: 250 mg Documented by: Divalproex Sodium (Divalproex Sodium Er 500 Mg Tab.Er.24h) 500 mg PO DAILY [facility] Last Admin: 03/12/22 14:31 Dose: 500 mg Documented by: Haloperidol (Haloperidol 5 Mg Tablet) 10 mg PO BID@1000,2200 [facility] Last Admin: 03/12/22 14:30 Dose: 10 mg Documented by: Haloperidol (Haloperidol 5 Mg Tablet) 10 mg PO Q4H PRN PRN Reason: agitation Hydroxyzine HCl (Hydroxyzine Hcl 25 Mg Tablet) 25 mg PO Q6H PRN PRN Reason: Anxiety Lidocaine HCl (Lidocaine 4 % Cream Kit) 1 appl TOPICAL DAILY PRN; Protocol PRN Reason: prophylactiinjection site pain Magnesium Hydroxide (Milk Of Magnesia 30 Ml Oral.Susp) 30 ml PO DAILY PRN PRN Reason: Constipation Trazodone HCl (Trazodone Hcl 50 Mg Tablet) 50 mg PO BEDTIME PRN PRN Reason: Insomnia Allergies Allergies Allergy/AdvReac Type Severity Reaction Status Date / Time No Known Allergies Allergy Verified 02/19/22 03:39 [No Known Allergies*] Assessment & Plan Assessment & Plan (1) Schizophrenia, paranoid, chronic with acute exacerbation: Status: Acute Code(s): F20.0 - Paranoid schizophrenia Plan Nura is a 26 y.o. male who carries a dx of paranoid schizophrenia. Hx of AH, has fixed delusion of believing neighbors are talking about him. Has DMH and ACCS services through [facility]. No Catarino's order. Hx of med non-adherence upon discharge. HOSPITAL COURSE: 02/24: Ct treatment plan 02/25: Ct Rx plan. May need committment. Lacks insight and is non compliant with meds. 02/26: Pt adamantly does not want to increase haldol or depakote. Will start seroquel 300 mg QHS for sx of psychotic depression, has not had adequate trial on seroquel. May help with poor sleep. 02/27: Pt has been refusing all meds; AH complaints but denies any SI/HI and his demonstrate safe behaviors on the unit 02/28 retracted 3 day, remains preoccupied with auditory hallucinations of his neighbors and delusional thoughts that his neighbors are persecuting him agrees to stay for treatment; considering clozapine 03/01 Angry and demanding discharge and 3 day notice placed; difficult to engage; no insight.? Refused morning dose of Haldol.? At said he is taking clozapine before and resisted reality testing; however said will still consider 03/02 patient willingly taking clozapine 03/06 patient intermittently takes clozapine; he is disorganized in behavior and thought, intermittently yelling and accusing staff and posturing and threatening staff.? Patient struggles to understand that his rent is paid for; while talking about a specific topic, patient will intermittently respond with a disorganized irrelevant answer.? Patient has failed monotherapy with Seroquel, Palliperidone, Risperdal and Haldol.? Will continue to titrate clozapine as patient is willing to see if this can be effective.? Patient has a 3 day notice due today 03/06/2022.? Team finds that patient is unstable and not safe to return the community as he has ongoing auditory hallucinations and paranoid delusional thoughts that about his neighbors plotting to hurt him.? Will file for Civil commitment; also discussed is that patient may need long-term admission to better establish stability. 03/08 patient disorganized; refused labs making it difficult to titrate clozapine. Will continue to trying get patient to allow labs 5/6 remains disorganized, sometimes adhering to treatment other times refusing it without any clear pattern. Patient is not amenable to logical explanation and his engagement in tx is unpredictable making dosing with Clozapine (and depakote) difficult as it requires periodic blood work and controlled titration. However, Will continue with attempts at clozapine since this seems to be best option for patient to become stabilized 5/7 remains disorganized; won't engage; continues to have AH Formulation: Coating Inspector discussed case with colleagues who have worked with patient in the past and also with staff on the unit for current admission. He has a hx of multiple inpatient admissions, including 1 about a month ago with very similar presentation, refusing to take meds, asking for discharge and deemed safe to return to the community. He has been re-presenting to [facility] after being discharged with the same presentation, not dangerous, but asking for help and then refusing treatment wanting discharge. He continues to have auditory hallucinations about his neighbor.?Initially, he has not expressed any delusional concerns that his neighbor is going to hurt him, just that his neighbors talking about him and so considered discharge.?However, Patient soon expressed concerns that his neighbors are plotting to harm him and that he is prepared to harm them back if he needs to defend himself.? As patient has presented several times to the emergency room in between admissions he is demonstrating that he is struggling to function in the community.? He has a history of medication noncompliance. He has chronic paranoid delusions and auditory hallucinations that his neighbors are going to hurt him which intermittently expand to thoughts about preparing to defend himself.? Will continue treatment however is possible that patient may need long-term admission to better establish stability. PLAN: [facility] FOR Civil Commitment: patient is unstable and not safe to return the community as he has ongoing auditory hallucinations and paranoid delusional thoughts that about his neighbors plotting to hurt him.? Medication plan: Attempting trial of clozapine; overlapping Haldol/Depakote (which have only been minimally helpful) while seeing if clozapine it can be effective Continue Clozapine 50mg daily Continue Clozapine 125mg qhs (will titrate as quickly as patient can tolerate) ANC on 03/09: 3.5 ANC weekly Continue Divalproex ER 1000 mg PO BEDTIME [facility] (depakote level WNL; lft's/ammonia grossly wnl) Continue Divalproex ER 750mg Daily Continue Haloperidol 10 mg BID (Plan to taper and dc if Clozapine effective) Continue Benztropine Mesylate (Benztropine Mesylate 0.5 Mg Tablet)? 0.5 mg PO BEDTIME [facility] Continue Clonidine HCl (Clonidine Hcl 0.1 Mg Tablet)? 0.1 mg PO TID PRN Reason: hyperarousal Hydroxyzine HCl (Hydroxyzine Hcl 25 Mg Tablet)? 25 mg PO Q6H PRN Anxiety DC Quetiapine qhs; pt does not want Trazodone HCl? 50 mg PO BEDTIME PRN Insomnia MED Trials: Seroquel Palliperidone Risperdal Haldol I spent minutes with the patient and/or on the patient floor today, greater than?50% of which was spent counseling/coordinating care. Patient educated on: diagnosis and medication risk/benefits Informed Consent: does not understand Reason for contiued inpatient stay Substantial Risk for: harm to self, harm to others and rapid decompensation
[2022-03-12] MEDS: HaloperidoL 5 MG TABLET 10 MG PO (20:28)
[2022-03-12] MEDS: Divalproex Sodium ER 500 MG TAB.ER.24H 1000 MG PO (20:28)
[2022-03-12] MEDS: cloZAPine 25 MG TABLET 125 MG PO (20:31)
--- NOTE | 2022-03-12 20:32 | PC.NURSE ---
Addendum entered by Janee Holbrook RN 03/12/22 23:47: Addendum: Patient only took Clozapine 25 mg instead of the 125 mg prescribed. Original Note: Patient refused to take his nighttime dose of medications. He would only take Depakote ER 1,000 mg po, Haldol 10 mg po and Clozapine 50 mg. He refused the hs Cogentin 0.5 and the Clozapine 75 mg po. booking agent provider notified.
[2022-03-13 08:15] VITALS: BP 111/62; PULSE 121; RESP 18; TEMP 36.7; O2SAT 96
[2022-03-13] MEDS: cloZAPine 25 MG TABLET 50 MG PO (10:09)
[2022-03-13] MEDS: HaloperidoL 5 MG TABLET 10 MG PO ×2 (10:09→21:39)
[2022-03-13] MEDS: Divalproex Sodium ER 250 MG TAB.ER.24H PO (10:09)
[2022-03-13] MEDS: Divalproex Sodium ER 500 MG TAB.ER.24H PO (10:09)
--- NOTE | 2022-03-13 11:43 | HO.PSYCHPN ---
Subjective Subjective Date of Service: 03/13/22 Reason For Visit: schizoaffective Interim History: Court today and patient civilly committed with substituted judgment for medications Patient understands however remains disorganized, still unclear about that his rent will be paid, still asking when he can discharge. He is calm however and no behavioral disruptions. Mental Status Exam Mental Status Exam Narrative: Pt is alert and oriented; behavior is with limited cooperation, quiet; dressed in casual attire, wearing casual cloths, adequately groomed and with adequate hygiene; mood is described as when can i discharge? and affect constricted; eye contact minimal; Speech is normal normal rate, volume and prosody. intermittent psychomotor agitation present but less so; thought process is disorganized; Thought content is on paranoid delusional worries about being persecuted by his neighbors; sometimes TC can stay pertinent to relevant topics; Denies SI/HI. AH remain;? Patients insight and judgment are impaired Diagnostics Vital Signs (24Hr): Vital Signs - 24 hr 03/13/22 08:15 Temperature 98.0 F Pulse Rate 121 H Respiratory Rate 18 Blood Pressure 111/62 Pulse Oximetry 96 BMI result Body Mass Index 35.7 Labs Results: 03/01/22 18:29 Medications Medications Current Medications Acetaminophen (Acetaminophen 325 Mg Tablet) 650 mg PO Q6H PRN PRN Reason: Headache/Pain Mild Scale (1-3) Last Admin: 03/03/22 22:41 Dose: 650 mg Documented by: Al Hydroxide/Mg Hydroxide (Magnesium Hydrox/Alum Hydrox 30 Ml Oral.Susp) 30 ml PO Q6H PRN PRN Reason: Heartburn/Nausea Albuterol Sulfate (Albuterol Sulfate 90 Mcg 8 Gm Inhaler) 2 puff INHALE RQ4H PRN PRN Reason: Shortness Of Breath Benztropine Mesylate (Benztropine Mesylate 0.5 Mg Tablet) 0.5 mg PO BEDTIME [facility] Last Admin: 03/12/22 20:27 Dose: Not Given Documented by: Clonidine HCl (Clonidine Hcl 0.1 Mg Tablet) 0.1 mg PO TID PRN; Protocol PRN Reason: hyperarousal Last Admin: 02/28/22 21:47 Dose: 0.1 mg Documented by: Clozapine (Clozapine 25 Mg Tablet) 50 mg PO DAILY [facility] Last Admin: 03/13/22 10:09 Dose: 50 mg Documented by: Clozapine (Clozapine 25 Mg Tablet) 125 mg PO BEDTIME [facility] Last Admin: 03/12/22 20:31 Dose: 25 mg Documented by: Diphenhydramine HCl (Diphenhydramine Hcl 25 Mg Tablet) 50 mg PO Q4H PRN PRN Reason: agitation Divalproex Sodium (Divalproex Sodium Er 500 Mg Tab.Er.24h) 1,000 mg PO BEDTIME [facility] Last Admin: 03/12/22 20:28 Dose: 1,000 mg Documented by: Divalproex Sodium (Divalproex Sodium Er 250 Mg Tab.Er.24h) 250 mg PO DAILY [facility] Last Admin: 03/13/22 10:09 Dose: 250 mg Documented by: Divalproex Sodium (Divalproex Sodium Er 500 Mg Tab.Er.24h) 500 mg PO DAILY [facility] Last Admin: 03/13/22 10:09 Dose: 500 mg Documented by: Haloperidol (Haloperidol 5 Mg Tablet) 10 mg PO BID@1000,2200 [facility] Last Admin: 03/13/22 10:09 Dose: 10 mg Documented by: Haloperidol (Haloperidol 5 Mg Tablet) 10 mg PO Q4H PRN PRN Reason: agitation Hydroxyzine HCl (Hydroxyzine Hcl 25 Mg Tablet) 25 mg PO Q6H PRN PRN Reason: Anxiety Lidocaine HCl (Lidocaine 4 % Cream Kit) 1 appl TOPICAL DAILY PRN; Protocol PRN Reason: prophylactiinjection site pain Magnesium Hydroxide (Milk Of Magnesia 30 Ml Oral.Susp) 30 ml PO DAILY PRN PRN Reason: Constipation Trazodone HCl (Trazodone Hcl 50 Mg Tablet) 50 mg PO BEDTIME PRN PRN Reason: Insomnia Allergies Allergies Allergy/AdvReac Type Severity Reaction Status Date / Time No Known Allergies Allergy Verified 02/19/22 03:39 [No Known Allergies*] Assessment & Plan Assessment & Plan (1) Schizophrenia, paranoid, chronic with acute exacerbation: Status: Acute Code(s): F20.0 - Paranoid schizophrenia Plan Nura is a 26 y.o. male who carries a dx of paranoid schizophrenia. Hx of AH, has fixed delusion of believing neighbors are talking about him. Has DMH and ACCS services through [facility] [place]. No Catarino's order. Hx of med non-adherence upon discharge. HOSPITAL COURSE: 02/24: Ct treatment plan 02/25: Ct Rx plan. May need committment. Lacks insight and is non compliant with meds. 02/26: Pt adamantly does not want to increase haldol or depakote. Will start seroquel 300 mg QHS for sx of psychotic depression, has not had adequate trial on seroquel. May help with poor sleep. 02/27: Pt has been refusing all meds; AH complaints but denies any SI/HI and his demonstrate safe behaviors on the unit 02/28 retracted 3 day, remains preoccupied with auditory hallucinations of his neighbors and delusional thoughts that his neighbors are persecuting him agrees to stay for treatment; considering clozapine 03/01 Angry and demanding discharge and 3 day notice placed; difficult to engage; no insight.? Refused morning dose of Haldol.? At said he is taking clozapine before and resisted reality testing; however said will still consider 03/02 patient willingly taking clozapine 03/06 patient intermittently takes clozapine; he is disorganized in behavior and thought, intermittently yelling and accusing staff and posturing and threatening staff.? Patient struggles to understand that his rent is paid for; while talking about a specific topic, patient will intermittently respond with a disorganized irrelevant answer.? Patient has failed monotherapy with Seroquel, Palliperidone, Risperdal and Haldol.? Will continue to titrate clozapine as patient is willing to see if this can be effective.? Patient has a 3 day notice due today 03/06/2022.? Team finds that patient is unstable and not safe to return the community as he has ongoing auditory hallucinations and paranoid delusional thoughts that about his neighbors plotting to hurt him.? Will file for Civil commitment; also discussed is that patient may need long-term admission to better establish stability. 5 patient disorganized; refused labs making it difficult to titrate clozapine. Will continue to trying get patient to allow labs 03/09 remains disorganized, sometimes adhering to treatment other times refusing it without any clear pattern. Patient is not amenable to logical explanation and his engagement in tx is unpredictable making dosing with Clozapine (and depakote) difficult as it requires periodic blood work and controlled titration. However, Will continue with attempts at clozapine since this seems to be best option for patient to become stabilized 03/10 remains disorganized; won't engage; continues to have 03/13 CIVIL COMMITMENT AND SUBSTITUTED JUDGMENT ORDERED Formulation: Slab Polisher discussed case with colleagues who have worked with patient in the past and also with staff on the unit for current admission. He has a hx of multiple inpatient admissions, including 1 about a month ago with very similar presentation, refusing to take meds, asking for discharge and deemed safe to return to the community. He has been re-presenting to [facility] after being discharged with the same presentation, not dangerous, but asking for help and then refusing treatment wanting discharge. He continues to have auditory hallucinations about his neighbor.?Initially, he has not expressed any delusional concerns that his neighbor is going to hurt him, just that his neighbors talking about him and so considered discharge.?However, Patient soon expressed concerns that his neighbors are plotting to harm him and that he is prepared to harm them back if he needs to defend himself.? As patient has presented several times to the emergency room in between admissions he is demonstrating that he is struggling to function in the community.? He has a history of medication noncompliance. He has chronic paranoid delusions and auditory hallucinations that his neighbors are going to hurt him which intermittently expand to thoughts about preparing to defend himself.? Will continue treatment however is possible that patient may need long-term admission to better establish stability. PLAN: Section [employer] Patient Civil Committed and substituted judgment for medications ordered. Medication plan: Attempting trial of clozapine; overlapping Haldol/Depakote (which have only been minimally helpful) while seeing if clozapine it can be effective Continue Clozapine 50mg daily Continue Clozapine 125mg qhs (will titrate as quickly as patient can tolerate) ANC on 03/09: 3.5 ANC weekly Continue Divalproex ER 1000 mg PO BEDTIME [facility] (depakote level WNL; lft's/ammonia grossly wnl) Continue Divalproex ER 750mg Daily Continue Haloperidol 10 mg BID (Plan to taper and dc if Clozapine effective) Continue Benztropine Mesylate (Benztropine Mesylate 0.5 Mg Tablet)? 0.5 mg PO BEDTIME [facility] Continue Clonidine HCl (Clonidine Hcl 0.1 Mg Tablet)? 0.1 mg PO TID PRN Reason: hyperarousal Hydroxyzine HCl (Hydroxyzine Hcl 25 Mg Tablet)? 25 mg PO Q6H PRN Anxiety DC Quetiapine qhs; pt does not want Trazodone HCl? 50 mg PO BEDTIME PRN Insomnia MED Trials: Seroquel Palliperidone Risperdal Haldol I spent minutes with the patient and/or on the patient floor today, greater than?50% of which was spent counseling/coordinating care. Patient educated on: diagnosis Informed Consent: does not understand Reason for contiued inpatient stay Substantial Risk for: harm to self, harm to others and rapid decompensation
[2022-03-13 18:00] VITALS: RESP 16
[2022-03-13] MEDS: cloZAPine 100 MG, cloZAPine 25 MG 125 MG PO (21:34)
[2022-03-13] MEDS: Divalproex Sodium ER 500 MG TAB.ER.24H 1000 MG PO (21:38)
[2022-03-14] MEDS: Divalproex Sodium ER 250 MG TAB.ER.24H PO (12:56)
[2022-03-14] MEDS: cloZAPine 25 MG TABLET 50 MG PO (12:56)
[2022-03-14] MEDS: Divalproex Sodium ER 500 MG TAB.ER.24H PO (12:56)
[2022-03-14] MEDS: HaloperidoL 5 MG TABLET 10 MG PO (12:57)
--- NOTE | 2022-03-14 17:34 | HO.PSYCHPN ---
Subjective Subjective Date of Service: 03/14/22 Reason For Visit: schizoaffective Interim History: More calm today, however still disorganized, still intermittently refusing medication and still concerned about his rent unable to accept that this is being taken care of. Patient at 1st refused clozapine but then when he was reminded that it will help remove the voices he went and took it. Mental Status Exam Mental Status Exam Narrative: Pt is alert and oriented; behavior is with limited cooperation, quiet; dressed in casual attire, wearing casual cloths, adequately groomed and with adequate hygiene; mood is described as whose going to pay my rent? and affect constricted; eye contact minimal; Speech is normal normal rate, volume and prosody. intermittent psychomotor agitation present but less so; thought process is disorganized; Thought content is on paranoid delusional worries about being persecuted by his neighbors; sometimes TC can stay pertinent to relevant topics; Denies SI/HI. AH remain;? Patients insight and judgment are impaired Diagnostics Vital Signs (24Hr): Vital Signs - 24 hr 03/13/22 18:00 Respiratory Rate 16 BMI result Body Mass Index 35.7 Labs Results: 03/01/22 18:29 Medications Medications Current Medications Acetaminophen (Acetaminophen 325 Mg Tablet) 650 mg PO Q6H PRN PRN Reason: Headache/Pain Mild Scale (1-3) Last Admin: 03/03/22 22:41 Dose: 650 mg Documented by: Al Hydroxide/Mg Hydroxide (Magnesium Hydrox/Alum Hydrox 30 Ml Oral.Susp) 30 ml PO Q6H PRN PRN Reason: Heartburn/Nausea Albuterol Sulfate (Albuterol Sulfate 90 Mcg 8 Gm Inhaler) 2 puff INHALE RQ4H PRN PRN Reason: Shortness Of Breath Benztropine Mesylate (Benztropine Mesylate 0.5 Mg Tablet) 0.5 mg PO BEDTIME JOE Last Admin: 03/13/22 21:43 Dose: Not Given Documented by: Clonidine HCl (Clonidine Hcl 0.1 Mg Tablet) 0.1 mg PO TID PRN; Protocol PRN Reason: hyperarousal Last Admin: 02/28/22 21:47 Dose: 0.1 mg Documented by: Clozapine (Clozapine 25 Mg Tablet) 50 mg PO DAILY JOE Last Admin: 03/14/22 12:56 Dose: 50 mg Documented by: Clozapine (Clozapine 25 Mg Tablet) 150 mg PO BEDTIME JOE Diphenhydramine HCl (Diphenhydramine Hcl 25 Mg Tablet) 50 mg PO Q4H PRN PRN Reason: agitation Divalproex Sodium (Divalproex Sodium Er 500 Mg Tab.Er.24h) 1,000 mg PO BEDTIME [facility] Last Admin: 03/13/22 21:38 Dose: 1,000 mg Documented by: Divalproex Sodium (Divalproex Sodium Er 250 Mg Tab.Er.24h) 250 mg PO DAILY [facility] Last Admin: 03/14/22 12:56 Dose: 250 mg Documented by: Divalproex Sodium (Divalproex Sodium Er 500 Mg Tab.Er.24h) 500 mg PO DAILY [facility] Last Admin: 03/14/22 12:56 Dose: 500 mg Documented by: Haloperidol (Haloperidol 5 Mg Tablet) 10 mg PO BID@1000,2200 [facility] Last Admin: 03/14/22 12:57 Dose: 10 mg Documented by: Haloperidol (Haloperidol 5 Mg Tablet) 10 mg PO Q4H PRN PRN Reason: agitation Hydroxyzine HCl (Hydroxyzine Hcl 25 Mg Tablet) 25 mg PO Q6H PRN PRN Reason: Anxiety Lidocaine HCl (Lidocaine 4 % Cream Kit) 1 appl TOPICAL DAILY PRN; Protocol PRN Reason: prophylactiinjection site pain Magnesium Hydroxide (Milk Of Magnesia 30 Ml Oral.Susp) 30 ml PO DAILY PRN PRN Reason: Constipation Trazodone HCl (Trazodone Hcl 50 Mg Tablet) 50 mg PO BEDTIME PRN PRN Reason: Insomnia Allergies Allergies Allergy/AdvReac Type Severity Reaction Status Date / Time No Known Allergies Allergy Verified 02/19/22 03:39 [No Known Allergies*] Assessment & Plan Assessment & Plan (1) Schizophrenia, paranoid, chronic with acute exacerbation: Status: Acute Code(s): F20.0 - Paranoid schizophrenia Plan Nura is a 26 y.o. male who carries a dx of paranoid schizophrenia. Hx of AH, has fixed delusion of believing neighbors are talking about him. Has DMH and ACCS services through [facility]. No Catarino's order. Hx of med non-adherence upon discharge. HOSPITAL COURSE: 02/24: Ct treatment plan 02/25: Ct Rx plan. May need committment. Lacks insight and is non compliant with meds. 02/26: Pt adamantly does not want to increase haldol or depakote. Will start seroquel 300 mg QHS for sx of psychotic depression, has not had adequate trial on seroquel. May help with poor sleep. 02/27: Pt has been refusing all meds; AH complaints but denies any SI/HI and his demonstrate safe behaviors on the unit 02/28 retracted 3 day, remains preoccupied with auditory hallucinations of his neighbors and delusional thoughts that his neighbors are persecuting him agrees to stay for treatment; considering clozapine 03/01 Angry and demanding discharge and 3 day notice placed; difficult to engage; no insight.? Refused morning dose of Haldol.? At said he is taking clozapine before and resisted reality testing; however said will still consider 03/02 patient willingly taking clozapine 03/06 patient intermittently takes clozapine; he is disorganized in behavior and thought, intermittently yelling and accusing staff and posturing and threatening staff.? Patient struggles to understand that his rent is paid for; while talking about a specific topic, patient will intermittently respond with a disorganized irrelevant answer.? Patient has failed monotherapy with Seroquel, Palliperidone, Risperdal and Haldol.? Will continue to titrate clozapine as patient is willing to see if this can be effective.? Patient has a 3 day notice due today 03/06/2022.? Team finds that patient is unstable and not safe to return the community as he has ongoing auditory hallucinations and paranoid delusional thoughts that about his neighbors plotting to hurt him.? Will file for Civil commitment; also discussed is that patient may need long-term admission to better establish stability. 03/08 patient disorganized; refused labs making it difficult to titrate clozapine. Will continue to trying get patient to allow labs 03/09 remains disorganized, sometimes adhering to treatment other times refusing it without any clear pattern. Patient is not amenable to logical explanation and his engagement in tx is unpredictable making dosing with Clozapine (and depakote) difficult as it requires periodic blood work and controlled titration. However, Will continue with attempts at clozapine since this seems to be best option for patient to become stabilized 03/10 remains disorganized; won't engage; continues to have 03/13 CIVIL COMMITMENT AND SUBSTITUTED JUDGMENT ORDERED Formulation: Fruit Sorter discussed case with colleagues who have worked with patient in the past and also with staff on the unit for current admission. He has a hx of multiple inpatient admissions, including 1 about a month ago with very similar presentation, refusing to take meds, asking for discharge and deemed safe to return to the community. He has been re-presenting to [facility] after being discharged with the same presentation, not dangerous, but asking for help and then refusing treatment wanting discharge. He continues to have auditory hallucinations about his neighbor.?Initially, he has not expressed any delusional concerns that his neighbor is going to hurt him, just that his neighbors talking about him and so considered discharge.?However, Patient soon expressed concerns that his neighbors are plotting to harm him and that he is prepared to harm them back if he needs to defend himself.? As patient has presented several times to the emergency room in between admissions he is demonstrating that he is struggling to function in the community.? He has a history of medication noncompliance. He has chronic paranoid delusions and auditory hallucinations that his neighbors are going to hurt him which intermittently expand to thoughts about preparing to defend himself.? Will continue treatment however is possible that patient may need long-term admission to better establish stability. PLAN: Section 8 Patient Civil Committed and substituted judgment for medications ordered. Medication plan: Attempting trial of clozapine; overlapping Haldol/Depakote (which have only been minimally helpful) while seeing if clozapine it can be effective Continue Clozapine 50mg daily Continue Clozapine 150mg qhs (will titrate as quickly as patient can tolerate) ANC on 03/09: 3.5 ANC weekly Continue Divalproex ER 1000 mg PO BEDTIME JOE (depakote level WNL; lft's/ammonia grossly wnl) Continue Divalproex ER 750mg Daily Continue Haloperidol 10 mg BID (Plan to taper and dc if Clozapine effective) Continue Benztropine Mesylate (Benztropine Mesylate 0.5 Mg Tablet)? 0.5 mg PO BEDTIME JOE Continue Clonidine HCl (Clonidine Hcl 0.1 Mg Tablet)? 0.1 mg PO TID PRN Reason: hyperarousal Hydroxyzine HCl (Hydroxyzine Hcl 25 Mg Tablet)? 25 mg PO Q6H PRN Anxiety DC Quetiapine qhs; pt does not want Trazodone HCl? 50 mg PO BEDTIME PRN Insomnia MED Trials: Seroquel Palliperidone Risperdal Haldol I spent minutes with the patient and/or on the patient floor today, greater than?50% of which was spent counseling/coordinating care. Informed Consent: does not understand Reason for contiued inpatient stay Substantial Risk for: harm to self, harm to others and rapid decompensation
--- NOTE | 2022-03-15 02:19 | PC.ADMIT ---
On-Call Prescriber alerted patient had not taken HS meds, and remains asleep at this time.
--- NOTE | 2022-03-15 02:30 | PC.NURSE ---
patient awake @0225, attempted to administer HS meds at that time; patient refused reporting stomach ache
[2022-03-15 07:00] VITALS: BMI 36.1
[2022-03-15] MEDS: cloZAPine 25 MG TABLET 50 MG PO (09:35)
[2022-03-15] MEDS: HaloperidoL 5 MG TABLET 10 MG PO ×2 (09:35→19:36)
[2022-03-15] MEDS: Divalproex Sodium ER 500 MG TAB.ER.24H PO (09:35)
[2022-03-15] MEDS: Divalproex Sodium ER 250 MG TAB.ER.24H PO (09:40)
--- NOTE | 2022-03-15 09:53 | P.PNPSI_ITS ---
Subjective Subjective Date of Service: 03/15/22 Reason For Visit: schizoaffective Interim History: On approach, 1st thing patient says is who is going to pay my rent? And does not accept any explanation regarding that rent is already being taken care of. Later patient articulated that he hears voices when he goes to the store, at home or whatever else he is trying to do however he today he said he is not currently hearing voices on the unit. Mental Status Exam Mental Status Exam Narrative: Pt is alert and oriented; behavior is with limited cooperation, quiet; dressed in casual attire, wearing casual cloths, adequately groomed and with adequate hygiene; mood is described as whose going to pay my rent? and affect constricted; eye contact minimal; Speech is normal normal rate, volume and prosody. intermittent psychomotor agitation present but less so; thought process is disorganized; Thought content is on paranoid delusional worries about being persecuted by his neighbors; sometimes TC can stay pertinent to relevant topics; Denies SI/HI. Currently denies AH;? Patients insight and judgment are impaired Diagnostics Vital Signs (24Hr): BMI result Body Mass Index 36.1 Labs Results: 03/01/22 18:29 Medications Medications Current Medications Acetaminophen (Acetaminophen 325 Mg Tablet) 650 mg PO Q6H PRN PRN Reason: Headache/Pain Mild Scale (1-3) Last Admin: 03/03/22 22:41 Dose: 650 mg Documented by: Al Hydroxide/Mg Hydroxide (Magnesium Hydrox/Alum Hydrox 30 Ml Oral.Susp) 30 ml PO Q6H PRN PRN Reason: Heartburn/Nausea Albuterol Sulfate (Albuterol Sulfate 90 Mcg 8 Gm Inhaler) 2 puff INHALE RQ4H PRN PRN Reason: Shortness Of Breath Benztropine Mesylate (Benztropine Mesylate 0.5 Mg Tablet) 0.5 mg PO BEDTIME JOE Last Admin: 03/15/22 02:20 Dose: Not Given Documented by: Clonidine HCl (Clonidine Hcl 0.1 Mg Tablet) 0.1 mg PO TID PRN; Protocol PRN Reason: hyperarousal Last Admin: 02/28/22 21:47 Dose: 0.1 mg Documented by: Clozapine (Clozapine 25 Mg Tablet) 50 mg PO DAILY JOE Last Admin: 03/15/22 09:35 Dose: 50 mg Documented by: Clozapine (Clozapine 25 Mg Tablet) 150 mg PO BEDTIME [facility] Last Admin: 03/15/22 02:20 Dose: Not Given Documented by: Diphenhydramine HCl (Diphenhydramine Hcl 25 Mg Tablet) 50 mg PO Q4H PRN PRN Reason: agitation Divalproex Sodium (Divalproex Sodium Er 500 Mg Tab.Er.24h) 1,000 mg PO BEDTIME [facility] Last Admin: 03/15/22 02:21 Dose: Not Given Documented by: Divalproex Sodium (Divalproex Sodium Er 250 Mg Tab.Er.24h) 250 mg PO DAILY [facility] Last Admin: 03/15/22 09:40 Dose: 250 mg Documented by: Divalproex Sodium (Divalproex Sodium Er 500 Mg Tab.Er.24h) 500 mg PO DAILY [facility] Last Admin: 03/15/22 09:35 Dose: 500 mg Documented by: Haloperidol (Haloperidol 5 Mg Tablet) 10 mg PO BID@1000,2200 [facility] Last Admin: 03/15/22 09:35 Dose: 10 mg Documented by: Haloperidol (Haloperidol 5 Mg Tablet) 10 mg PO Q4H PRN PRN Reason: agitation Hydroxyzine HCl (Hydroxyzine Hcl 25 Mg Tablet) 25 mg PO Q6H PRN PRN Reason: Anxiety Lidocaine HCl (Lidocaine 4 % Cream Kit) 1 appl TOPICAL DAILY PRN; Protocol PRN Reason: prophylactiinjection site pain Magnesium Hydroxide (Milk Of Magnesia 30 Ml Oral.Susp) 30 ml PO DAILY PRN PRN Reason: Constipation Trazodone HCl (Trazodone Hcl 50 Mg Tablet) 50 mg PO BEDTIME PRN PRN Reason: Insomnia Allergies Allergies Allergy/AdvReac Type Severity Reaction Status Date / Time No Known Allergies Allergy Verified 02/19/22 03:39 [No Known Allergies*] Assessment & Plan Assessment & Plan (1) Schizophrenia, paranoid, chronic with acute exacerbation: Status: Acute Code(s): F20.0 - Paranoid schizophrenia Plan Nura is a 26 y.o. male who carries a dx of paranoid schizophrenia. Hx of AH, has fixed delusion of believing neighbors are talking about him. Has DMH and ACCS services through [facility]. No Catarino's order. Hx of med non-adherence upon discharge. HOSPITAL COURSE: 02/24: Ct treatment plan 02/25: Ct Rx plan. May need committment. Lacks insight and is non compliant with meds. 02/26: Pt adamantly does not want to increase haldol or depakote. Will start seroquel 300 mg QHS for sx of psychotic depression, has not had adequate trial on seroquel. May help with poor sleep. 02/27: Pt has been refusing all meds; AH complaints but denies any SI/HI and his demonstrate safe behaviors on the unit 02/28 retracted 3 day, remains preoccupied with auditory hallucinations of his neighbors and delusional thoughts that his neighbors are persecuting him agrees to stay for treatment; considering clozapine 03/01 Angry and demanding discharge and 3 day notice placed; difficult to engage; no insight.? Refused morning dose of Haldol.? At said he is taking clozapine before and resisted reality testing; however said will still consider 03/02 patient willingly taking clozapine 03/06 patient intermittently takes clozapine; he is disorganized in behavior and thought, intermittently yelling and accusing staff and posturing and threatening staff.? Patient struggles to understand that his rent is paid for; while talking about a specific topic, patient will intermittently respond with a disorganized irrelevant answer.? Patient has failed monotherapy with Seroquel, Palliperidone, Risperdal and Haldol.? Will continue to titrate clozapine as patient is willing to see if this can be effective.? Patient has a 3 day notice due today 03/06/2022.? Team finds that patient is unstable and not safe to return the community as he has ongoing auditory hallucinations and paranoid delusional thoughts that about his neighbors plotting to hurt him.? Will file for Civil commitment; also discussed is that patient may need long-term admission to better establish stability. 03/08 patient disorganized; refused labs making it difficult to titrate clozapine. Will continue to trying get patient to allow labs 03/09 remains disorganized, sometimes adhering to treatment other times refusing it without any clear pattern. Patient is not amenable to logical explanation and his engagement in tx is unpredictable making dosing with Clozapine (and depakote) difficult as it requires periodic blood work and controlled titration. 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 He has a hx of multiple inpatient admissions, including 1 about a month ago with very similar presentation, refusing to take meds, asking for discharge and deemed safe to return to the community. He has been re-presenting to [facility] after being discharged with the same presentation, not dangerous, but asking for help and then refusing treatment wanting discharge. He continues to have auditory hallucinations about his neighbor.?Initially, he has not expressed any delusional concerns that his neighbor is going to hurt him, just that his neighbors talking about him and so considered discharge.?However, Patient soon expressed concerns that his neighbors are plotting to harm him and that he is prepared to harm them back if he needs to defend himself.? As patient has presented several times to the emergency room in between admissions he is demonstrating that he is struggling to function in the community.? He has a hist ory of medication noncompliance. He has chronic paranoid delusions and auditory hallucinations that his neighbors are going to hurt him which intermittently expand to thoughts about preparing to defend himself.? Will continue treatment however is possible that patient may need long-term admission to better establish stability. PLAN: Section 8 Patient Civil Committed and substituted judgment for medications ordered. Medication plan: Attempting trial of clozapine; overlapping Haldol/Depakote (which have only been minimally helpful) while seeing if clozapine it can be effective Continue Clozapine 50mg daily CANNOT REFUSE; COURT ORDERED; GIVE HALDOL 5MG IF REFUSES Continue Clozapine 150mg qhs (will titrate as quickly as patient can tolerate) CANNOT REFUSE; COURT ORDERED; GIVE HALDOL 5MG IF REFUSES ANC on 03/09: 3.5 ANC weekly CHANGE to Divalproex ER 1750 mg PO QHS starting on 03/16; pt c/o being sedated in morning (depakote level WNL; lft's/ammonia grossly wnl) Continue Haloperidol 10 mg BID (Plan to taper and dc if Clozapine effective) CANNOT REFUSE; COURT ORDERED; GIVE HALDOL 5MG IF REFUSES (5mg sufficient since he may be getting additional haldol for refusal of clozapine and overall plan is to taper off Haldol anyway) Continue Benztropine Mesylate (Benztropine Mesylate 0.5 Mg Tablet)? 0.5 mg PO qHS Continue Clonidine HCl (Clonidine Hcl 0.1 Mg Tablet)? 0.1 mg PO TID PRN Reason: hyperarousal Trazodone HCl? 50 mg PO BEDTIME PRN Insomnia Hydroxyzine HCl (Hydroxyzine Hcl 25 Mg Tablet)? 25 mg PO Q6H PRN Anxiety DC Quetiapine qhs; pt does not want MED Trials: Seroquel Palliperidone Risperdal Haldol I spent minutes with the patient and/or on the patient floor today, greater than?50% of which was spent counseling/coordinating care. Reason for contiued inpatient stay Substantial Risk for: rapid decompensation
[2022-03-15 11:17] LABS: Neut%MD 50.8 %; Neutrophils Absolute Auto 3.9 x10*3/uL (2.0-8.3); WBCANC 7.7 X10*3/uL
[2022-03-15 18:00] VITALS: RESP 18
[2022-03-15] MEDS: Divalproex Sodium ER 500 MG TAB.ER.24H 1000 MG PO (19:36)
[2022-03-15] MEDS: cloZAPine 100 MG TABLET 150 MG PO (19:36)
[2022-03-16] MEDS: HaloperidoL 5 MG TABLET 10 MG PO ×2 (08:10→19:45)
[2022-03-16] MEDS: cloZAPine 25 MG TABLET 50 MG PO (08:10)
[2022-03-16 16:18] VITALS: RESP 16
[2022-03-16] MEDS: cloZAPine 100 MG TABLET 150 MG PO (19:44)
[2022-03-16] MEDS: Divalproex Sodium ER 500 MG TAB.ER.24H 1500 MG PO (19:54)
--- NOTE | 2022-03-16 22:12 | PC.NURSE ---
Pt took 1000mg of 1750mg of Depakote that was ordered. Pt refused to take more than two pills.
--- NOTE | 2022-03-16 23:31 | HO.PSYCHPN ---
Subjective Subjective Date of Service: 03/16/22 Reason For Visit: schizoaffective Interim History: Patient seen and discussed with team. Patient evaluated today and upon interview pt is found laying down in his room, has food next to bed and food trays in room. He reports I wanna pay my rent, says he doesnt want to be here. Reports ongoing concern that his outreach team is not paying his rent. Otherwise, says he feels fine. Denies issues with sleep. ? In the milieu, patient has been in his room, in bed all day. Denies SI/SIB/HI upon inquiry. Denies irritability or assaultive ideation. Says he feels safe. Medication Compliance: Yes Side effects from medications: No Attending Groups: No Review of Systems Acute medical concerns: No Medical Review of Systems: unchanged Mental Status Exam Mental Status Exam Narrative: Pt is alert and oriented; behavior is with limited cooperation, quiet; dressed in casual attire, wearing casual cloths, adequately groomed and with adequate hygiene; mood is described as fine and affect constricted; eye contact minimal; Speech is normal normal rate, volume and prosody. intermittent psychomotor agitation present but less so; thought process is disorganized; Thought content is on paranoid delusional worries about being persecuted by his neighbors; sometimes TC can stay pertinent to relevant topics; Denies SI/HI. Currently denies AH;? Patients insight and judgment are impaired Diagnostics Vital Signs (24Hr): Vital Signs - 24 hr 03/16/22 16:18 Respiratory Rate 16 BMI result Body Mass Index 36.1 Labs Results: 03/01/22 18:29 Labs: Laboratory Results - last 48 hr 03/15/22 10:41 Absolute Neuts (auto) 3.9 Medications Medications Current Medications Acetaminophen (Acetaminophen 325 Mg Tablet) 650 mg PO Q6H PRN PRN Reason: Headache/Pain Mild Scale (1-3) Last Admin: 03/03/22 22:41 Dose: 650 mg Documented by: Al Hydroxide/Mg Hydroxide (Magnesium Hydrox/Alum Hydrox 30 Ml Oral.Susp) 30 ml PO Q6H PRN PRN Reason: Heartburn/Nausea Albuterol Sulfate (Albuterol Sulfate 90 Mcg 8 Gm Inhaler) 2 puff INHALE RQ4H PRN PRN Reason: Shortness Of Breath Benztropine Mesylate (Benztropine Mesylate 0.5 Mg Tablet) 0.5 mg PO BEDTIME [facility] Last Admin: 03/16/22 19:46 Dose: Not Given Documented by: Clonidine HCl (Clonidine Hcl 0.1 Mg Tablet) 0.1 mg PO TID PRN; Protocol PRN Reason: hyperarousal Last Admin: 02/28/22 21:47 Dose: 0.1 mg Documented by: Clozapine (Clozapine 25 Mg Tablet) 50 mg PO DAILY [facility] Last Admin: 03/16/22 08:10 Dose: 50 mg Documented by: Clozapine (Clozapine 100 Mg Tablet) 150 mg PO BEDTIME [facility] Last Admin: 03/16/22 19:44 Dose: 150 mg Documented by: Diphenhydramine HCl (Diphenhydramine Hcl 25 Mg Tablet) 50 mg PO Q4H PRN PRN Reason: agitation Divalproex Sodium (Divalproex Sodium Er 500 Mg Tab.Er.24h) 1,500 mg PO BEDTIME [facility] Last Admin: 03/16/22 19:54 Dose: 1,000 mg Documented by: Divalproex Sodium (Divalproex Sodium Er 250 Mg Tab.Er.24h) 250 mg PO BEDTIME [facility] Last Admin: 03/16/22 19:52 Dose: Not Given Documented by: Haloperidol (Haloperidol 5 Mg Tablet) 10 mg PO BID@1000,2200 [facility] Last Admin: 03/16/22 19:45 Dose: 10 mg Documented by: Haloperidol (Haloperidol 5 Mg Tablet) 10 mg PO Q4H PRN PRN Reason: agitation Haloperidol Lactate (Haloperidol Lactate 5 Mg/Ml Vial) 5 mg IM QID PRN PRN Reason: if refuses PO Hydroxyzine HCl (Hydroxyzine Hcl 25 Mg Tablet) 25 mg PO Q6H PRN PRN Reason: Anxiety Lidocaine HCl (Lidocaine 4 % Cream Kit) 1 appl TOPICAL DAILY PRN; Protocol PRN Reason: prophylactiinjection site pain Magnesium Hydroxide (Milk Of Magnesia 30 Ml Oral.Susp) 30 ml PO DAILY PRN PRN Reason: Constipation Trazodone HCl (Trazodone Hcl 50 Mg Tablet) 50 mg PO BEDTIME PRN PRN Reason: Insomnia Allergies Allergies Allergy/AdvReac Type Severity Reaction Status Date / Time No Known Allergies Allergy Verified 02/19/22 03:39 [No Known Allergies*] Assessment & Plan Assessment & Plan (1) Schizophrenia, paranoid, chronic with acute exacerbation: Status: Acute Code(s): F20.0 - Paranoid schizophrenia Plan Nura is a 26 y.o. male who carries a dx of paranoid schizophrenia. Hx of AH, has fixed delusion of believing neighbors are talking about him. Has DMH and ACCS services through [facility]. No Catarino's order. Hx of med non-adherence upon discharge. HOSPITAL COURSE: 02/24: Ct treatment plan 02/25: Ct Rx plan. May need committment. Lacks insight and is non compliant with meds. 02/26: Pt adamantly does not want to increase haldol or depakote. Will start seroquel 300 mg QHS for sx of psychotic depression, has not had adequate trial on seroquel. May help with poor sleep. 02/27: Pt has been refusing all meds; AH complaints but denies any SI/HI and his demonstrate safe behaviors on the unit 02/28 retracted 3 day, remains preoccupied with auditory hallucinations of his neighbors and delusional thoughts that his neighbors are persecuting him agrees to stay for treatment; considering clozapine 03/01 Angry and demanding discharge and 3 day notice placed; difficult to engage; no insight.? Refused morning dose of Haldol.? At said he is taking clozapine before and resisted reality testing; however said will still consider 03/02 patient willingly taking clozapine 03/06 patient intermittently takes clozapine; he is disorganized in behavior and thought, intermittently yelling and accusing staff and posturing and threatening staff.? Patient struggles to understand that his rent is paid for; while talking about a specific topic, patient will intermittently respond with a disorganized irrelevant answer.? Patient has failed monotherapy with Seroquel, Palliperidone, Risperdal and Haldol.? Will continue to titrate clozapine as patient is willing to see if this can be effective.? Patient has a 3 day notice due today 03/06/2022.? Team finds that patient is unstable and not safe to return the community as he has ongoing auditory hallucinations and paranoid delusional thoughts that about his neighbors plotting to hurt him.? Will file for Civil commitment; also discussed is that patient may need long-term admission to better establish stability. 03/08 patient disorganized; refused labs making it difficult to titrate clozapine.? Will continue to trying get patient to allow labs 5/6 remains disorganized, sometimes adhering to treatment other times refusing it without any clear pattern.? Patient is not amenable to logical explanation and his engagement in tx is unpredictable making dosing with Clozapine (and depakote) difficult as it requires periodic blood work and controlled titration.? However, Will continue with attempts at clozapine since this seems to be best option for patient to become stabilized 03/10 remains disorganized; won't engage; continues to have 03/13 CIVIL COMMITMENT AND SUBSTITUTED JUDGMENT ORDERED 03/16 continue current tx plan Formulation: Broom Maker discussed case with colleagues who have worked with patient in the past and also with staff on the unit for current admission. He has a hx of multiple inpatient admissions, including 1 about a month ago with very similar presentation, refusing to take meds, asking for discharge and deemed safe to return to the community. He has been re-presenting to [facility] ED after being discharged with the same presentation, not dangerous, but asking for help and then refusing treatment wanting discharge. He continues to have auditory hallucinations about his neighbor.?Initially, he has not expressed any delusional concerns that his neighbor is going to hurt him, just that his neighbors talking about him and so considered discharge.?However, Patient soon expressed concerns that his neighbors are plotting to harm him and that he is prepared to harm them back if he needs to defend himself.? As patient has presented several times to the emergency room in between admissions he is demonstrating that he is struggling to function in the community.? He has a history of medication noncompliance. He has chronic paranoid delusions and auditory hallucinations that his neighbors are going to hurt him which intermittently expand to thoughts about preparing to defend himself.? Will continue treatment however is possible that patient may need long-term admission to better establish stability. PLAN: Section 8 Patient Civil Committed and substituted judgment for medications ordered. Medication plan:? Attempting trial of clozapine; overlapping Haldol/Depakote (which have only been minimally helpful) while seeing if clozapine it can be effective Continue Clozapine 50mg daily CANNOT REFUSE; COURT ORDERED; GIVE HALDOL 5MG IF REFUSES Continue Clozapine 150mg qhs (will titrate as quickly as patient can tolerate) CANNOT REFUSE; COURT ORDERED; GIVE HALDOL 5MG IF REFUSES ANC on 03/09:? 3.5 ANC weekly CHANGE to Divalproex ER 1750 mg PO QHS starting on 03/16; pt c/o being sedated in morning (depakote level WNL; lft's/ammonia grossly wnl) Continue Haloperidol 10 mg BID (Plan to taper and dc if Clozapine effective) CANNOT REFUSE; COURT ORDERED; GIVE HALDOL 5MG IF REFUSES (5mg sufficient since he may be getting additional haldol for refusal of clozapine and overall plan is to taper off Haldol anyway) Continue Benztropine Mesylate (Benztropine Mesylate 0.5 Mg Tablet)? 0.5 mg PO qHS Continue Clonidine HCl (Clonidine Hcl 0.1 Mg Tablet)? 0.1 mg PO TID PRN Reason: hyperarousal Trazodone HCl? 50 mg PO BEDTIME PRN Insomnia Hydroxyzine HCl (Hydroxyzine Hcl 25 Mg Tablet)? 25 mg PO Q6H PRN Anxiety DC Quetiapine qhs; pt does not want MED Trials: Seroquel Palliperidone Risperdal Haldol I spent minutes with the patient and/or on the patient floor today, greater than?50% of which was spent counseling/coordinating care. Patient educated on: therapeutic strategies Reason for contiued inpatient stay Substantial Risk for: inability to function, rapid decompensation and med/psych decompensation
--- NOTE | 2022-03-17 08:21 | HO.PSYCHPN ---
Subjective Subjective Date of Service: 03/17/22 Reason For Visit: schizoaffective Subjective Notes: Section 8 Healthcare Proxy: No Interim History: Patient was seen and discussed in rounds today. He was seen in his room, lying in bed. There was a lot of food in scrubs on the disc and the floor. He has been mostly medication compliant except last evening refused 750 mg of his Depakote but took 1000 mg. No IM is a were given. He is doing better on Clozaril. No complaints or side effects. Eating and sleeping adequately. No changes were made Medication Compliance: Intermittent Side effects from medications: No Attending Groups: Intermittent Review of Systems Review of Systems Yes all other systems are reviewed and are negative Mental Status Exam Mental Status Exam Narrative: In today's visit he is alert, oriented and minimally interactive. Speech is soft-spoken. Little eye contact. Affect is constricted. No overt signs of psychosis but has been having paranoid ideations and preoccupied about some financial issues. No SI. Cognitively he has slow thought processes. Judgment is intact Diagnostics Vital Signs (24Hr): Vital Signs - 24 hr 03/16/22 16:18 Respiratory Rate 16 BMI result Body Mass Index 36.1 Labs Results: 03/01/22 18:29 Labs: Laboratory Results - last 48 hr 03/15/22 10:41 Absolute Neuts (auto) 3.9 Medications Medications Current Medications Acetaminophen (Acetaminophen 325 Mg Tablet) 650 mg PO Q6H PRN PRN Reason: Headache/Pain Mild Scale (1-3) Last Admin: 03/03/22 22:41 Dose: 650 mg Documented by: Al Hydroxide/Mg Hydroxide (Magnesium Hydrox/Alum Hydrox 30 Ml Oral.Susp) 30 ml PO Q6H PRN PRN Reason: Heartburn/Nausea Albuterol Sulfate (Albuterol Sulfate 90 Mcg 8 Gm Inhaler) 2 puff INHALE RQ4H PRN PRN Reason: Shortness Of Breath Benztropine Mesylate (Benztropine Mesylate 0.5 Mg Tablet) 0.5 mg PO BEDTIME [facility] Last Admin: 03/16/22 19:46 Dose: Not Given Documented by: Clonidine HCl (Clonidine Hcl 0.1 Mg Tablet) 0.1 mg PO TID PRN; Protocol PRN Reason: hyperarousal Last Admin: 02/28/22 21:47 Dose: 0.1 mg Documented by: Clozapine (Clozapine 25 Mg Tablet) 50 mg PO DAILY [facility] Last Admin: 03/16/22 08:10 Dose: 50 mg Documented by: Clozapine (Clozapine 100 Mg Tablet) 150 mg PO BEDTIME [facility] Last Admin: 03/16/22 19:44 Dose: 150 mg Documented by: Diphenhydramine HCl (Diphenhydramine Hcl 25 Mg Tablet) 50 mg PO Q4H PRN PRN Reason: agitation Divalproex Sodium (Divalproex Sodium Er 500 Mg Tab.Er.24h) 1,500 mg PO BEDTIME [facility] Last Admin: 03/16/22 19:54 Dose: 1,000 mg Documented by: Divalproex Sodium (Divalproex Sodium Er 250 Mg Tab.Er.24h) 250 mg PO BEDTIME [facility] Last Admin: 03/16/22 19:52 Dose: Not Given Documented by: Haloperidol (Haloperidol 5 Mg Tablet) 10 mg PO BID@1000,2200 [facility] Last Admin: 03/16/22 19:45 Dose: 10 mg Documented by: Haloperidol (Haloperidol 5 Mg Tablet) 10 mg PO Q4H PRN PRN Reason: agitation Haloperidol Lactate (Haloperidol Lactate 5 Mg/Ml Vial) 5 mg IM QID PRN PRN Reason: if refuses PO Hydroxyzine HCl (Hydroxyzine Hcl 25 Mg Tablet) 25 mg PO Q6H PRN PRN Reason: Anxiety Lidocaine HCl (Lidocaine 4 % Cream Kit) 1 appl TOPICAL DAILY PRN; Protocol PRN Reason: prophylactiinjection site pain Magnesium Hydroxide (Milk Of Magnesia 30 Ml Oral.Susp) 30 ml PO DAILY PRN PRN Reason: Constipation Trazodone HCl (Trazodone Hcl 50 Mg Tablet) 50 mg PO BEDTIME PRN PRN Reason: Insomnia Allergies Allergies Allergy/AdvReac Type Severity Reaction Status Date / Time No Known Allergies Allergy Verified 02/19/22 03:39 [No Known Allergies*] Assessment & Plan Assessment & Plan (1) Schizophrenia, paranoid, chronic with acute exacerbation: Status: Acute Code(s): F20.0 - Paranoid schizophrenia Plan Nura is a 26 y.o. male who carries a dx of paranoid schizophrenia. Hx of AH, has fixed delusion of believing neighbors are talking about him. Has DMH and ACCS services through [facility]. No Catarino's order. Hx of med non-adherence upon discharge. HOSPITAL COURSE: 02/24: Ct treatment plan 02/25: Ct Rx plan. May need committment. Lacks insight and is non compliant with meds. 02/26: Pt adamantly does not want to increase haldol or depakote. Will start seroquel 300 mg QHS for sx of psychotic depression, has not had adequate trial on seroquel. May help with poor sleep. 02/27: Pt has been refusing all meds; AH complaints but denies any SI/HI and his demonstrate safe behaviors on the unit 02/28 retracted 3 day, remains preoccupied with auditory hallucinations of his neighbors and delusional thoughts that his neighbors are persecuting him agrees to stay for treatment; considering clozapine 03/01 Angry and demanding discharge and 3 day notice placed; difficult to engage; no insight.? Refused morning dose of Haldol.? At said he is taking clozapine before and resisted reality testing; however said will still consider 03/02 patient willingly taking clozapine 03/06 patient intermittently takes clozapine; he is disorganized in behavior and thought, intermittently yelling and accusing staff and posturing and threatening staff.? Patient struggles to understand that his rent is paid for; while talking about a specific topic, patient will intermittently respond with a disorganized irrelevant answer.? Patient has failed monotherapy with Seroquel, Palliperidone, Risperdal and Haldol.? Will continue to titrate clozapine as patient is willing to see if this can be effective.? Patient has a 3 day notice due today 03/06/2022.? Team finds that patient is unstable and not safe to return the community as he has ongoing auditory hallucinations and paranoid delusional thoughts that about his neighbors plotting to hurt him.? Will file for Civil commitment; also discussed is that patient may need long-term admission to better establish stability. 5 patient disorganized; refused labs making it difficult to titrate clozapine.? Will continue to trying get patient to allow labs 56 remains disorganized, sometimes adhering to treatment other times refusing it without any clear pattern.? Patient is not amenable to logical explanation and his engagement in tx is unpredictable making dosing with Clozapine (and depakote) difficult as it requires periodic blood work and controlled titration.? 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 He has a hx of multiple inpatient admissions, including 1 about a month ago with very similar presentation, refusing to take meds, asking for discharge and deemed safe to return to the community. He has been re-presenting to [facility] after being discharged with the same presentation, not dangerous, but asking for help and then refusing treatment wanting discharge. He continues to have auditory hallucinations about his neighbor.?Initially, he has not expressed any delusional concerns that his neighbor is going to hurt him, just that his neighbors talking about him and so considered discharge.?However, Patient soon expressed concerns that his neighbors are plotting to harm him and that he is prepared to harm them back if he needs to defend himself.? As patient has presented several times to the emergency room in between admissions he is demonstrating that he is struggling to function in the community.? He has a history of medication noncompliance. He has chronic paranoid delusions and auditory hallucinations that his neighbors are going to hurt him which intermittently expand to thoughts about preparing to defend himself.? Will continue treatment however is possible that patient may need long-term admission to better establish stability. PLAN: Section 8 Patient Civil Committed and substituted judgment for medications ordered. Medication plan:? Attempting trial of clozapine; overlapping Haldol/Depakote (which have only been minimally helpful) while seeing if clozapine it can be effective Continue Clozapine 50mg daily CANNOT REFUSE; COURT ORDERED; GIVE HALDOL 5MG IF REFUSES Continue Clozapine 150mg qhs (will titrate as quickly as patient can tolerate) CANNOT REFUSE; COURT ORDERED; GIVE HALDOL 5MG IF REFUSES ANC on 03/09:? 3.5 ANC weekly CHANGE to Divalproex ER 1750 mg PO QHS starting on 03/16; pt c/o being sedated in morning (depakote level WNL; lft's/ammonia grossly wnl) Continue Haloperidol 10 mg BID (Plan to taper and dc if Clozapine effective) CANNOT REFUSE; COURT ORDERED; GIVE HALDOL 5MG IF REFUSES (5mg sufficient since he may be getting additional haldol for refusal of clozapine and overall plan is to taper off Haldol anyway) Continue Benztropine Mesylate (Benztropine Mesylate 0.5 Mg Tablet)? 0.5 mg PO qHS Continue Clonidine HCl (Clonidine Hcl 0.1 Mg Tablet)? 0.1 mg PO TID PRN Reason: hyperarousal Trazodone HCl? 50 mg PO BEDTIME PRN Insomnia Hydroxyzine HCl (Hydroxyzine Hcl 25 Mg Tablet)? 25 mg PO Q6H PRN Anxiety DC Quetiapine qhs; pt does not want MED Trials: Seroquel Palliperidone Risperdal Haldol 03/17/2022 continue current regimen and plans I spent minutes with the patient and/or on the patient floor today, greater than?50% of which was spent counseling/coordinating care. Reason for contiued inpatient stay Substantial Risk for: med/psych decompensation
[2022-03-17] MEDS: cloZAPine 25 MG TABLET 50 MG PO (12:35)
[2022-03-17] MEDS: HaloperidoL 5 MG TABLET 10 MG PO ×2 (12:35→21:29)
[2022-03-17 21:25] VITALS: BP 107/75; PULSE 116; TEMP 37.2
[2022-03-17] MEDS: Divalproex Sodium ER 500 MG TAB.ER.24H 1500 MG PO (21:30)
[2022-03-17] MEDS: cloZAPine 100 MG TABLET 150 MG PO (21:30)
--- NOTE | 2022-03-18 09:11 | P.PNPSI_ITS ---
Subjective Subjective Date of Service: 03/18/22 Reason For Visit: schizoaffective Subjective Notes: Section 8 Healthcare Proxy: No Guardianship: No Medical Problems Affecting Mental Status: No Interim History: Patient was seen and discussed in rounds today. Records and plans were reviewed. He continues to be very isolative. No episodes of agitation. No auditory or visual hallucinations. Continues to take medications selectively and consistently has refused the 750 mg dose of Depakote and only takes 1000 mg. I want to order a Depakote level however he has refuse labs and only labs are ordered on the days that he has his CBC. No changes were made today Medication Compliance: Intermittent Side effects from medications: No Attending Groups: No Review of Systems Review of Systems Yes all other systems are reviewed and are negative Mental Status Exam Mental Status Exam Narrative: In today's visit he is alert, could not assess orientation and minimally in teractive. Speech is soft-spoken. Little eye contact. Affect is constricted. No overt signs of psychosis but has been having paranoid ideations and preoccupied. No SI. Cognitively he has slow thought processes. Judgment is marginally intact Diagnostics Vital Signs (24Hr): Vital Signs - 24 hr 03/17/22 21:25 Temperature 98.9 F Pulse Rate 116 H Blood Pressure 107/75 BMI result Body Mass Index 36.1 Labs Results: 03/01/22 18:29 Medications Medications Current Medications Acetaminophen (Acetaminophen 325 Mg Tablet) 650 mg PO Q6H PRN PRN Reason: Headache/Pain Mild Scale (1-3) Last Admin: 03/03/22 22:41 Dose: 650 mg Documented by: Al Hydroxide/Mg Hydroxide (Magnesium Hydrox/Alum Hydrox 30 Ml Oral.Susp) 30 ml PO Q6H PRN PRN Reason: Heartburn/Nausea Albuterol Sulfate (Albuterol Sulfate 90 Mcg 8 Gm Inhaler) 2 puff INHALE RQ4H PRN PRN Reason: Shortness Of Breath Benztropine Mesylate (Benztropine Mesylate 0.5 Mg Tablet) 0.5 mg PO BEDTIME JOE Last Admin: 03/17/22 21:35 Dose: Not Given Documented by: Clonidine HCl (Clonidine Hcl 0.1 Mg Tablet) 0.1 mg PO TID PRN; Protocol PRN Reason: hyperarousal Last Admin: 02/28/22 21:47 Dose: 0.1 mg Documented by: Clozapine (Clozapine 25 Mg Tablet) 50 mg PO DAILY [facility] Last Admin: 03/17/22 12:35 Dose: 50 mg Documented by: Clozapine (Clozapine 100 Mg Tablet) 150 mg PO BEDTIME [facility] Last Admin: 03/17/22 21:30 Dose: 150 mg Documented by: Diphenhydramine HCl (Diphenhydramine Hcl 25 Mg Tablet) 50 mg PO Q4H PRN PRN Reason: agitation Divalproex Sodium (Divalproex Sodium Er 500 Mg Tab.Er.24h) 1,500 mg PO BEDTIME [facility] Last Admin: 03/17/22 21:30 Dose: 1,000 mg Documented by: Divalproex Sodium (Divalproex Sodium Er 250 Mg Tab.Er.24h) 250 mg PO BEDTIME [facility] Last Admin: 03/17/22 21:51 Dose: Not Given Documented by: Haloperidol (Haloperidol 5 Mg Tablet) 10 mg PO BID@1000,2200 [facility] Last Admin: 03/17/22 21:29 Dose: 10 mg Documented by: Haloperidol (Haloperidol 5 Mg Tablet) 10 mg PO Q4H PRN PRN Reason: agitation Haloperidol Lactate (Haloperidol Lactate 5 Mg/Ml Vial) 5 mg IM QID PRN PRN Reason: if refuses PO Hydroxyzine HCl (Hydroxyzine Hcl 25 Mg Tablet) 25 mg PO Q6H PRN PRN Reason: Anxiety Lidocaine HCl (Lidocaine 4 % Cream Kit) 1 appl TOPICAL DAILY PRN; Protocol PRN Reason: prophylactiinjection site pain Magnesium Hydroxide (Milk Of Magnesia 30 Ml Oral.Susp) 30 ml PO DAILY PRN PRN Reason: Constipation Trazodone HCl (Trazodone Hcl 50 Mg Tablet) 50 mg PO BEDTIME PRN PRN Reason: Insomnia Allergies Allergies Allergy/AdvReac Type Severity Reaction Status Date / Time No Known Allergies Allergy Verified 02/19/22 03:39 [No Known Allergies*] Assessment & Plan Assessment & Plan (1) Schizophrenia, paranoid, chronic with acute exacerbation: Status: Acute Code(s): F20.0 - Paranoid schizophrenia Plan Nura is a 26 y.o. male who carries a dx of paranoid schizophrenia. Hx of AH, has fixed delusion of believing neighbors are talking about him. Has DMH and ACCS services through [facility]. No Catarino's order. Hx of med non-adherence upon discharge. HOSPITAL COURSE: 02/24: Ct treatment plan 02/25: Ct Rx plan. May need committment. Lacks insight and is non compliant with meds. 02/26: Pt adamantly does not want to increase haldol or depakote. Will start seroquel 300 mg QHS for sx of psychotic depression, has not had adequate trial on seroquel. May help with poor sleep. 02/27: Pt has been refusing all meds; AH complaints but denies any SI/HI and his demonstrate safe behaviors on the unit 02/28 retracted 3 day, remains preoccupied with auditory hallucinations of his neighbors and delusional thoughts that his neighbors are persecuting him agrees to stay for treatment; considering clozapine 03/01 Angry and demanding discharge and 3 day notice placed; difficult to engage; no insight.? Refused morning dose of Haldol.? At said he is taking clozapine before and resisted reality testing; however said will still consider 03/02 patient willingly taking clozapine 03/06 patient intermittently takes clozapine; he is disorganized in behavior and thought, intermittently yelling and accusing staff and posturing and threatening staff.? Patient struggles to understand that his rent is paid for; while talking about a specific topic, patient will intermittently respond with a disorganized irrelevant answer.? Patient has failed monotherapy with Seroquel, Palliperidone, Risperdal and Haldol.? Will continue to titrate clozapine as patient is willing to see if this can be effective.? Patient has a 3 day notice due today 03/06/2022.? Team finds that patient is unstable and not safe to return the community as he has ongoing auditory hallucinations and paranoid delusional thoughts that about his neighbors plotting to hurt him.? Will file for Civil c ommitment; also discussed is that patient may need long-term admission to better establish stability. 03/08 patient disorganized; refused labs making it difficult to titrate clozapine.? Will continue to trying get patient to allow labs 03/09 remains disorganized, sometimes adhering to treatment other times refusing it without any clear pattern.? Patient is not amenable to logical explanation and his engagement in tx is unpredictable making dosing with Clozapine (and depakote) difficult as it requires periodic blood work and controlled titration.? 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 He has a hx of multiple inpatient admissions, including 1 about a month ago with very similar presentation, refusing to take meds, asking for discharge and deemed safe to return to the community. He has been re-presenting to [facility] ED after being discharged with the same presentation, not dangerous, but asking for help and then refusing treatment wanting discharge. He continues to have auditory hallucinations about his neighbor.?Initially, he has not expressed any delusional concerns that his neighbor is going to hurt him, just that his neighbors talking about him and so considered discharge.?However, Patient soon expressed concerns that his neighbors are plotting to harm him and that he is prepared to harm them back if he needs to defend himself.? As patient has presented several times to the emergency room in between admissions he is demonstrating that he is struggling to function in the community.? He has a history of medication noncompliance. He has chronic paranoid delusions and auditory hallucinations that his neighbors are going to hurt him which intermittently expand to thoughts about preparing to defend himself.? Will continue treatment however is possible that patient may need long-term admission to better establish stability. PLAN: Section 8 Patient Civil Committed and substituted judgment for medications ordered. Medication plan:? Attempting trial of clozapine; overlapping Haldol/Depakote (which have only been minimally helpful) while seeing if clozapine it can be effective Continue Clozapine 50mg daily CANNOT REFUSE; COURT ORDERED; GIVE HALDOL 5MG IF REFUSES Continue Clozapine 150mg qhs (will titrate as quickly as patient can tolerate) CANNOT REFUSE; COURT ORDERED; GIVE HALDOL 5MG IF REFUSES ANC on 03/09:? 3.5 ANC weekly CHANGE to Divalproex ER 1750 mg PO QHS starting on 03/16; pt c/o being sedated in morning (depakote level WNL; lft's/ammonia grossly wnl) Continue Haloperidol 10 mg BID (Plan to taper and dc if Clozapine effective) CANNOT REFUSE; COURT ORDERED; GIVE HALDOL 5MG IF REFUSES (5mg sufficient since he may be getting additional haldol for refusal of clozapine and overall plan is to taper off Haldol anyway) Continue Benztropine Mesylate (Benztropine Mesylate 0.5 Mg Tablet)? 0.5 mg PO qHS Continue Clonidine HCl (Clonidine Hcl 0.1 Mg Tablet)? 0.1 mg PO TID PRN Reason: hyperarousal Trazodone HCl? 50 mg PO BEDTIME PRN Insomnia Hydroxyzine HCl (Hydroxyzine Hcl 25 Mg Tablet)? 25 mg PO Q6H PRN Anxiety DC Quetiapine qhs; pt does not want MED Trials: Seroquel Palliperidone Risperdal Haldol 03/17/2022 continue current regimen and plans 03/18/2022: Continue current regimen and plans. Consider Depakote level when labs are done next. I spent minutes with the patient and/or on the patient floor today, greater than?50% of which was spent counseling/coordinating care. Reason for contiued inpatient stay Substantial Risk for: med/psych decompensation
[2022-03-18] MEDS: HaloperidoL 5 MG TABLET 10 MG PO ×2 (12:42→22:05)
[2022-03-18] MEDS: cloZAPine 25 MG TABLET 50 MG PO (12:42)
[2022-03-18] MEDS: Benztropine Mesylate 0.5 MG TABLET PO (20:06)
[2022-03-18] MEDS: Divalproex Sodium ER 500 MG TAB.ER.24H 1500 MG PO (22:05)
[2022-03-18] MEDS: cloZAPine 100 MG TABLET 150 MG PO (22:06)
--- NOTE | 2022-03-19 10:35 | P.PNPSI_ITS ---
Subjective Subjective Date of Service: 03/19/22 Reason For Visit: schizoaffective Interim History: pt irritable and refused medications this AM (and last night would only take 1000mg of depakote). Regarding medication patient said I feel good, why would it take medication? During the same conversation he also said that he continues to hear his neighbors say mad crap And if they come after him something will happen. When asked what that means he said trust. He repeats refrain, who's going to pay my rent? and asks when he will he be discharged.. Patient could not accept technical writer and editor's explanation and walked away yelling down the hallway. He was able to be redirected. Mental Status Exam Mental Status Exam Narrative: Pt is alert and oriented; behavior is with limited cooperation, quiet; dressed in casual attire, wearing casual cloths, adequately groomed and with adequate hygiene; mood is irritable and affect constricted; eye contact minimal or intense; Speech is normal normal rate but louder volume; normal prosody. intermittent psychomotor agitation present; thought process is disorganized; Thought content is on paranoid delusional worries about being persecuted by his neighbors; sometimes TC can stay pertinent to relevant topics; Denies SI/HI. Positive for AH;? Patients insight and judgment are impaired Diagnostics Vital Signs (24Hr): BMI result Body Mass Index 36.1 Labs Results: 03/01/22 18:29 Medications Medications Current Medications Acetaminophen (Acetaminophen 325 Mg Tablet) 650 mg PO Q6H PRN PRN Reason: Headache/Pain Mild Scale (1-3) Last Admin: 03/03/22 22:41 Dose: 650 mg Documented by: Al Hydroxide/Mg Hydroxide (Magnesium Hydrox/Alum Hydrox 30 Ml Oral.Susp) 30 ml PO Q6H PRN PRN Reason: Heartburn/Nausea Albuterol Sulfate (Albuterol Sulfate 90 Mcg 8 Gm Inhaler) 2 puff INHALE RQ4H PRN PRN Reason: Shortness Of Breath Benztropine Mesylate (Benztropine Mesylate 0.5 Mg Tablet) 0.5 mg PO BEDTIME JOE Last Admin: 03/18/22 20:06 Dose: 0.5 mg Documented by: Clonidine HCl (Clonidine Hcl 0.1 Mg Tablet) 0.1 mg PO TID PRN; Protocol PRN Reason: hyperarousal Last Admin: 02/28/22 21:47 Dose: 0.1 mg Documented by: Clozapine (Clozapine 25 Mg Tablet) 50 mg PO DAILY [facility] Last Admin: 03/18/22 12:42 Dose: 50 mg Documented by: Clozapine (Clozapine 100 Mg Tablet) 150 mg PO BEDTIME [facility] Last Admin: 03/18/22 22:06 Dose: 150 mg Documented by: Diphenhydramine HCl (Diphenhydramine Hcl 25 Mg Tablet) 50 mg PO Q4H PRN PRN Reason: agitation Divalproex Sodium (Divalproex Sodium Er 500 Mg Tab.Er.24h) 1,500 mg PO BEDTIME [facility] Last Admin: 03/18/22 22:05 Dose: 1,000 mg Documented by: Divalproex Sodium (Divalproex Sodium Er 250 Mg Tab.Er.24h) 250 mg PO BEDTIME [facility] Last Admin: 03/18/22 22:08 Dose: Not Given Documented by: Haloperidol (Haloperidol 5 Mg Tablet) 10 mg PO BID@1000,2200 [facility] Last Admin: 03/18/22 22:05 Dose: 10 mg Documented by: Haloperidol (Haloperidol 5 Mg Tablet) 10 mg PO Q4H PRN PRN Reason: agitation Haloperidol Lactate (Haloperidol Lactate 5 Mg/Ml Vial) 5 mg IM QID PRN PRN Reason: if refuses PO Hydroxyzine HCl (Hydroxyzine Hcl 25 Mg Tablet) 25 mg PO Q6H PRN PRN Reason: Anxiety Lidocaine HCl (Lidocaine 4 % Cream Kit) 1 appl TOPICAL DAILY PRN; Protocol PRN Reason: prophylactiinjection site pain Magnesium Hydroxide (Milk Of Magnesia 30 Ml Oral.Susp) 30 ml PO DAILY PRN PRN Reason: Constipation Trazodone HCl (Trazodone Hcl 50 Mg Tablet) 50 mg PO BEDTIME PRN PRN Reason: Insomnia Allergies Allergies Allergy/AdvReac Type Severity Reaction Status Date / Time No Known Allergies Allergy Verified 02/19/22 03:39 [No Known Allergies*] Assessment & Plan Assessment & Plan (1) Schizophrenia, paranoid, chronic with acute exacerbation: Status: Acute Code(s): F20.0 - Paranoid schizophrenia Plan Nura is a 26 y.o. male who carries a dx of paranoid schizophrenia. Hx of , has fixed delusion of believing neighbors are talking about him. Has DMH and ACCS services through [facility]. No Catarino's order. Hx of med non-adherence upon discharge. HOSPITAL COURSE: 02/24: Ct treatment plan 02/25: Ct Rx plan. May need committment. Lacks insight and is non compliant with meds. 02/26: Pt adamantly does not want to increase haldol or depakote. Will start seroquel 300 mg QHS for sx of psychotic depression, has not had adequate trial on seroquel. May help with poor sleep. 02/27: Pt has been refusing all meds; AH complaints but denies any SI/HI and his demonstrate safe behaviors on the unit 02/28 retracted 3 day, remains preoccupied with auditory hallucinations of his neighbors and delusional thoughts that his neighbors are persecuting him agrees to stay for treatment; considering clozapine 03/01 Angry and demanding discharge and 3 day notice placed; difficult to engage; no insight.? Refused morning dose of Haldol.? At said he is taking clozapine before and resisted reality testing; however said will still consider 03/02 patient willingly taking clozapine 03/06 patient intermittently takes clozapine; he is disorganized in behavior and thought, intermittently yelling and accusing staff and posturing and threatening staff.? Patient struggles to understand that his rent is paid for; while talking about a specific topic, patient will intermittently respond with a disorganized irrelevant answer.? Patient has failed monotherapy with Seroquel, Palliperidone, Risperdal and Haldol.? Will continue to titrate clozapine as patient is willing to see if this can be effective.? Patient has a 3 day notice due today 03/06/2022.? Team finds that patient is unstable and not safe to return the community as he has ongoing auditory hallucinations and paranoid delusional thoughts that about his neighbors plotting to hurt him.? Will file for Civil commitment; also discussed is that patient may need long-term admission to better establish stability. 03/08 patient disorganized; refused labs making it difficult to titrate clozapine.? Will continue to trying get patient to allow labs 5/6 remains disorganized, sometimes adhering to treatment other times refusing it without any clear pattern.? Patient is not amenable to logical explanation and his engagement in tx is unpredictable making dosing with Clozapine (and depakote) difficult as it requires periodic blood work and controlled titrati on.? However, Will continue with attempts at clozapine since this seems to be best option for patient to become stabilized 03/10 remains disorganized; won't engage; continues to have AH 03/13 CIVIL COMMITMENT AND SUBSTITUTED JUDGMENT ORDERED 03/16 continue current tx plan 03/19 Patient has moments of insight but quickly descends back into struggles with paranoia, disorganized thinking, thinking AH are real. Patient struggles with taking medication are difficult to predict. Hope is that clozapine as a monotherapy will be sufficient; technical writer and editor discussed case with patient's past inpatient provider and there is no history of bipolar/manic episodes and Depakote only used for impulsivity/anger. Thus, will lower Depakote to a 1000 mg q.h.s. With clozapine, it may be easier for patient to tolerate single dosing so will see if moving the entire dose to bedtime helps with adherence rather than being asked to take medications twice a day. That said, sometimes patient wakes up in the morning and demands his morning medications so it is difficult to know The best way to mitigate his his anxiety around this issue. Formulation: Supervisor Finish End discussed case with colleagues who have worked with patient in the past and also with staff on the unit for current admission. He has a hx of multiple inpatient admissions, including 1 about a month ago with very similar presentation, refusing to take meds, asking for discharge and deemed safe to return to the community. He has been re-presenting to [facility] ED after being discharged with the same presentation, not dangerous, but asking for help and then refusing treatment wanting discharge. He continues to have auditory hallucinations about his neighbor.?Initially, he has not expressed any delusional concerns that his neighbor is going to hurt him, just that his neighbors talking about him and so considered discharge.?However, Patient soon expressed concerns that his neighbors are plotting to harm him and that he is prepared to harm them back if he needs to defend himself.? As patient has presented several times to the emergency room in between admissions he is demonstrating that he is struggling to function in the community.? He has a history of medication noncompliance. He has chronic paranoid delusions and auditory hallucinations that his neighbors are going to hurt him which intermittently expand to thoughts about preparing to defend himself.? Will continue treatment however is possible that patient may need long-term admission to better establish stability. PLAN: Section 8b Patient Civil Committed and substituted judgment for medications ordered. Medication plan:? Attempting trial of clozapine; overlapping Haldol/Depakote (which have only been minimally helpful) while seeing if clozapine it can be effective CHANGE to Clozapine 200mg QHS (to help with adherencewas split dosing) CANNOT REFUSE; COURT ORDERED; GIVE HALDOL 5MG IF REFUSES ANC on 03/09:? 3.5 ANC weekly LOWER to Divalproex ER 1000 mg PO QHS starting on 03/19 (although at 1750 mg patient at therapeutic level, there is No history of bipolar/sunni; effort to see if clozapine can work is monotherapy and patient complains of daytime sedation) Continue Haloperidol 10 mg BID (Plan to taper and dc if Clozapine effective) CANNOT REFUSE; COURT ORDERED; GIVE HALDOL 5MG IF REFUSES (5mg sufficient since h e may be getting additional haldol for refusal of clozapine and overall plan is to taper off Haldol anyway) Continue Benztropine Mesylate (Benztropine Mesylate 0.5 Mg Tablet)? 0.5 mg PO qHS Continue Clonidine HCl (Clonidine Hcl 0.1 Mg Tablet)? 0.1 mg PO TID PRN Reason: hyperarousal Trazodone HCl? 50 mg PO BEDTIME PRN Insomnia Hydroxyzine HCl (Hydroxyzine Hcl 25 Mg Tablet)? 25 mg PO Q6H PRN Anxiety DC Quetiapine qhs; pt does not want MED Trials: Seroquel Palliperidone Risperdal Haldol I spent minutes with the patient and/or on the patient floor today, greater than?50% of which was spent counseling/coordinating care. Patient educated on: diagnosis and medication risk/benefits Informed Consent: does not understand Reason for contiued inpatient stay Substantial Risk for: harm to self, harm to others, inability to function and rapid decompensation
[2022-03-19] MEDS: HaloperidoL 5 MG TABLET 10 MG PO (19:09)
[2022-03-19] MEDS: cloZAPine 100 MG TABLET 200 MG PO (19:09)
[2022-03-19 19:43] VITALS: RESP 16
[2022-03-19] MEDS: cloZAPine 25 MG TABLET PO (19:47)
[2022-03-19] MEDS: Divalproex Sodium ER 500 MG TAB.ER.24H 1000 MG PO (19:47)
[2022-03-20] MEDS: HaloperidoL 5 MG TABLET 10 MG PO ×2 (14:01→21:01)
--- NOTE | 2022-03-20 16:35 | P.PNPSI_ITS ---
Subjective Subjective Date of Service: 03/20/22 Reason For Visit: schizoaffective Interim History: Patient irritable on approach. He said he was fine but would not talk to scientific writer further. Patient initially refused a.m. medications but was willing to take them once understood he would have to get intermuscular injection otherwise. Mental Status Exam Mental Status Exam Narrative: Pt is alert and oriented; behavior is with limited cooperation, quiet; dressed in casual attire, wearing casual cloths, adequately groomed and with adequate hygiene; mood is irritable and affect constricted; eye contact minimal or intense; Speech is normal normal rate but louder volume; normal prosody. intermittent psychomotor agitation present; thought process is disorganized; Thought content is on paranoid delusional worries about being persecuted by his neighbors; sometimes TC can stay pertinent to relevant topics; Denies SI/HI. Positive for AH;? Patients insight and judgment are impaired Diagnostics Vital Signs (24Hr): Vital Signs - 24 hr 03/19/22 19:43 Respiratory Rate 16 BMI result Body Mass Index 36.1 Labs Results: 03/01/22 18:29 Medications Medications Current Medications Acetaminophen (Acetaminophen 325 Mg Tablet) 650 mg PO Q6H PRN PRN Reason: Headache/Pain Mild Scale (1-3) Last Admin: 03/03/22 22:41 Dose: 650 mg Documented by: Al Hydroxide/Mg Hydroxide (Magnesium Hydrox/Alum Hydrox 30 Ml Oral.Susp) 30 ml PO Q6H PRN PRN Reason: Heartburn/Nausea Albuterol Sulfate (Albuterol Sulfate 90 Mcg 8 Gm Inhaler) 2 puff INHALE RQ4H PRN PRN Reason: Shortness Of Breath Benztropine Mesylate (Benztropine Mesylate 0.5 Mg Tablet) 0.5 mg PO BEDTIME JOE Last Admin: 03/19/22 19:48 Dose: Not Given Documented by: Clonidine HCl (Clonidine Hcl 0.1 Mg Tablet) 0.1 mg PO TID PRN; Protocol PRN Reason: hyperarousal Last Admin: 02/28/22 21:47 Dose: 0.1 mg Documented by: Clozapine (Clozapine 100 Mg Tablet) 200 mg PO BEDTIME JOE Last Admin: 03/19/22 19:09 Dose: 200 mg Documented by: Clozapine (Clozapine 25 Mg Tablet) 25 mg PO BEDTIME JOE Last Admin: 03/19/22 19:47 Dose: 25 mg Documented by: Diphenhydramine HCl (Diphenhydramine Hcl 25 Mg Tablet) 50 mg PO Q4H PRN PRN Reason: agitation Divalproex Sodium (Divalproex Sodium Er 500 Mg Tab.Er.24h) 1,000 mg PO BEDTIME [facility] Last Admin: 03/19/22 19:47 Dose: 1,000 mg Documented by: Haloperidol (Haloperidol 5 Mg Tablet) 10 mg PO BID@1000,2200 [facility] Last Admin: 03/20/22 14:01 Dose: 10 mg Documented by: Haloperidol (Haloperidol 5 Mg Tablet) 10 mg PO Q4H PRN PRN Reason: agitation Haloperidol Lactate (Haloperidol Lactate 5 Mg/Ml Vial) 5 mg IM QID PRN PRN Reason: if refuses PO Hydroxyzine HCl (Hydroxyzine Hcl 25 Mg Tablet) 25 mg PO Q6H PRN PRN Reason: Anxiety Lidocaine HCl (Lidocaine 4 % Cream Kit) 1 appl TOPICAL DAILY PRN; Protocol PRN Reason: prophylactiinjection site pain Magnesium Hydroxide (Milk Of Magnesia 30 Ml Oral.Susp) 30 ml PO DAILY PRN PRN Reason: Constipation Trazodone HCl (Trazodone Hcl 50 Mg Tablet) 50 mg PO BEDTIME PRN PRN Reason: Insomnia Allergies Allergies Allergy/AdvReac Type Severity Reaction Status Date / Time No Known Allergies Allergy Verified 02/19/22 03:39 [No Known Allergies*] Assessment & Plan Assessment & Plan (1) Schizophrenia, paranoid, chronic with acute exacerbation: Status: Acute Code(s): F20.0 - Paranoid schizophrenia Plan Nura is a 26 y.o. male who carries a dx of paranoid schizophrenia. Hx of AH, has fixed delusion of believing neighbors are talking about him. Has DMH and ACCS services through [facility]. No Catarino's order. Hx of med non-adherence upon discharge. HOSPITAL COURSE: 02/24: Ct treatment plan 02/25: Ct Rx plan. May need committment. Lacks insight and is non compliant with meds. 02/26: Pt adamantly does not want to increase haldol or depakote. Will start seroquel 300 mg QHS for sx of psychotic depression, has not had adequate trial on seroquel. May help with poor sleep. 02/27: Pt has been refusing all meds; AH complaints but denies any SI/HI and his demonstrate safe behaviors on the unit 02/28 retracted 3 day, remains preoccupied with auditory hallucinations of his neighbors and delusional thoughts that his neighbors are persecuting him agrees to stay for treatment; considering clozapine 03/01 Angry and demanding discharge and 3 day notice placed; difficult to engage; no insight.? Refused morning dose of Haldol.? At said he is taking clozapine before and resisted reality testing; however said will still consider 03/02 patient willingly taking clozapine 03/06 patient intermittently takes clozapine; he is disorganized in behavior and thought, intermittently yelling and accusing staff and posturing and threatening staff.? Patient struggles to understand that his rent is paid for; while talking about a specific topic, patient will intermittently respond with a disorganized irrelevant answer.? Patient has failed monotherapy with Seroquel, Palliperidone, Risperdal and Haldol.? Will continue to titrate clozapine as patient is willing to see if this can be effective.? Patient has a 3 day notice due today 03/06/2022.? Team finds that patient is unstable and not safe to return the ommunity as he has ongoing auditory hallucinations and paranoid delusional thoughts that about his neighbors plotting to hurt him.? Will file for Civil commitment; also discussed is that patient may need long-term admission to better establish stability. 03/08 patient disorganized; refused labs making it difficult to titrate clozapine.? Will continue to trying get patient to allow labs 03/09 remains disorganized, sometimes adhering to treatment other times refusing it without any clear pattern.? Patient is not amenable to logical explanation and his engagement in tx is unpredictable making dosing with Clozapine (and depakote) difficult as it requires periodic blood work and controlled titration. ? However, Will continue with attempts at clozapine since this seems to be best option for patient to become stabilized 03/10 remains disorganized; won't engage; continues to have AH 03/13 CIVIL COMMITMENT AND SUBSTITUTED JUDGMENT ORDERED 03/16 continue current tx plan 03/19 Patient has moments of insight but quickly descends back into struggles with paranoia, disorganized thinking, thinking AH are real. Patient struggles with taking medication are difficult to predict. Hope is that clozapine as a m onotherapy will be sufficient; scientific writer discussed case with patient's past inpatient provider and there is no history of bipolar/manic episodes and Depakote only used for impulsivity/anger. Thus, will lower Depakote to a 1000 mg q.h.s. With clozapine, it may be easier for patient to tolerate single dosing so will see if moving the entire dose to bedtime helps with adherence rather than being asked to take medications twice a day. That said, sometimes patient wakes up in the morning and demands his morning medications so it is difficult to know The best way to mitigate his his anxiety around this issue. Formulation: Used Car Manager discussed case with colleagues who have worked with patient in the past and also with staff on the unit for current admission. He has a hx of multiple inpatient admissions, including 1 about a month ago with very similar presentation, refusing to take meds, asking for discharge and deemed safe to return to the community. He has been re-presenting to [facility] ED after being discharged with the same presentation, not dangerous, but asking for help and then refusing treatment wanting discharge. He continues to have auditory hallucinations about his neighbor.?Initially, he has not expressed any delusional concerns that his neighbor is going to hurt him, just that his neighbors talking about him and so considered discharge.?However, Patient soon expressed concerns that his neighbors are plotting to harm him and that he is prepared to harm them back if he needs to defend himself.? As patient has presented several times to the emergency room in between admissions he is demonstrating that he is struggling to function in the community.? He has a history of medication noncompliance. He has chronic paranoid delusions and auditory hallucinations that his neighbors are going to hurt him which intermittently expand to thoughts about preparing to defend himself.? Will continue treatment however is possible that patient may need long-term admission to better establish stability. PLAN: Section 8b Patient Civil Committed and substituted judgment for medications ordered. Medication plan:? Attempting trial of clozapine; overlapping Haldol/Depakote (which have only been minimally helpful) while seeing if clozapine it can be effective INCREASE TO Clozapine 225mg QHS (to help with adherencewas split dosing) CANNOT REFUSE; COURT ORDERED; GIVE HALDOL 5MG IF REFUSES ANC on 03/09:? 3.5 ANC weekly LOWERED to Divalproex ER 1000 mg PO QHS starting on 03/19 (although at 1750 mg patient at therapeutic level, there is No history of bipolar/sunni; effort to see if clozapine can work is monotherapy and patient complains of daytime sedation) Continue Haloperidol 10 mg BID (Plan to taper and dc if Clozapine effective) CANNOT REFUSE; COURT ORDERED; GIVE HALDOL 5MG IF REFUSES (5mg sufficient since he may be getting additional haldol for refusal of clozapine and overall plan is to taper off Haldol anyway) Continue Benztropine Mesylate (Benztropine Mesylate 0.5 Mg Tablet)? 0.5 mg PO qHS Continue Clonidine HCl (Clonidine Hcl 0.1 Mg Tablet)? 0.1 mg PO TID PRN Reason: hyperarousal Trazodone HCl? 50 mg PO BEDTIME PRN Insomnia Hydroxyzine HCl (Hydroxyzine Hcl 25 Mg Tablet)? 25 mg PO Q6H PRN Anxiety DC Quetiapine qhs; pt does not want MED Trials: Seroquel Palliperidone Risperdal Haldol I spent minutes with the patient and/or on the patient floor today, greater than?50% of which was spent counseling/coordinating care. Informed Consent: does not understand Reason for contiued inpatient stay Substantial Risk for: inability to function and rapid decompensation
[2022-03-20 18:00] VITALS: BP 138/86; PULSE 95; RESP 16; TEMP 36.6; O2SAT 97
[2022-03-20] MEDS: Divalproex Sodium ER 500 MG TAB.ER.24H 1000 MG PO (20:58)
[2022-03-20] MEDS: cloZAPine 25 MG TABLET 50 MG PO (20:59)
[2022-03-20] MEDS: cloZAPine 100 MG TABLET 200 MG PO (20:59)
[2022-03-20] MEDS: Benztropine Mesylate 0.5 MG TABLET PO (21:02)
[2022-03-21] MEDS: HaloperidoL 5 MG TABLET 10 MG PO ×2 (09:22→22:25)
[2022-03-21 09:23] VITALS: BP 124/74; PULSE 111; RESP 18; TEMP 36.7; O2SAT 97
--- NOTE | 2022-03-21 09:24 | P.EN_ITS ---
Event Note Date of Service: 03/21/22 Event Note: regarding summary of Hospital course: Nura is a 26 y.o. male who carries a dx of paranoid schizophrenia. Hx of AH, has fixed delusion of believing neighbors are talking about him. Has [facility] Case Management. No Catarino's order. Hx of med non-adherence upon discharge. HOSPITAL COURSE: 02/24: Ct treatment plan 02/25: Ct Rx plan. May need committment. Lacks insight and is non compliant with meds. 02/26: Pt adamantly does not want to increase haldol or depakote. Will start seroquel 300 mg QHS for sx of psychotic depression, has not had adequate trial on seroquel. May help with poor sleep. 02/27: Pt has been refusing all meds; AH complaints but denies any SI/HI and his demonstrate safe behaviors on the unit 02/28 retracted 3 day, remains preoccupied with auditory hallucinations of his neighbors and delusional thoughts that his neighbors are persecuting him agrees to stay for treatment; considering clozapine 03/01 Angry and demanding discharge and 3 day notice placed; difficult to engage; no insight.? Refused morning dose of Haldol.? At said he is taking clozapine before and resisted reality testing; however said will still consider 03/02 patient willingly taking clozapine 03/06 patient intermittently takes clozapine; he is disorganized in behavior and thought, intermittently yelling and accusing staff and posturing and threatening staff.? Patient struggles to understand that his rent is paid for; while talking about a specific topic, patient will intermittently respond with a disorganized irrelevant answer.? Patient has failed monotherapy with Seroquel, Palliperidone, Risperdal and Haldol.? Will continue to titrate clozapine as patient is willing to see if this can be effective.? Patient has a 3 day notice due today 03/06/2022.? Team finds that patient is unstable and not safe to return the community as he has ongoing auditory hallucinations and paranoid delusional thoughts that about his neighbors plotting to hurt him.? Will file for Civil commitment; also discussed is that patient may need long-term admission to better establish stability. 03/08 patient disorganized; refused labs making it difficult to titrate clozapine.? Will continue to trying get patient to allow labs 03/09 remains disorganized, sometimes adhering to treatment other times refusing it without any clear pattern.? Patient is not amenable to logical explanation and his engagement in tx is unpredictable making dosing with Clozapine (and depakote) difficult as it requires periodic blood work and controlled titration.? However, Will continue with attempts at clozapine since this seems to be best option for patient to become stabilized 03/10 remains disorganized; won't engage; continues to have AH 03/13 CIVIL COMMITMENT AND SUBSTITUTED JUDGMENT ORDERED 03/16 continue current tx plan 03/19 Patient has moments of insight but quickly descends back into struggles with paranoia, disorganized thinking, thinking AH are real. Patient struggles with taking medication are difficult to predict.?Today he said I feel good, why would it take medication? despite that during the same conversation he also said that he continues to hear his neighbors say mad crap And if they come after him something will happen. The Hope is that clozapine as a monotherapy will be sufficient; continuity writer discussed case with patient's past inpatient provider and there is no history of bipolar/manic episodes and Depakote only used for impulsivity/anger.? Thus, will lower Depakote to a 1000 mg q.h.s. With clozapine, it may be easier for patient to tolerate single dosing so will see if moving the entire dose to bedtime helps with adherence rather than being asked to take medications twice a day.? That said, sometimes patient wakes up in the morning and demands his morning medications so it is difficult to know The best way to mitigate his his anxiety around this issue. 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 He has a hx of multiple inpatient admissions, including 1 about a month ago with very similar presentation, refusing to take meds, asking for discharge and deemed safe to return to the community. He has been re-presenting to [facility] ED after being discharged with the same presentation, not dangerous, but asking for help and then refusing treatment wanting discharge. He continues to have auditory hallucinations about his neighbor.?Initially, he has not expressed any delusional concerns that his neighbor is going to hurt him, just that his neighbors talking about him and so considered discharge.?However, Patient soon expressed concerns that his neighbors are plotting to harm him and that he is prepared to harm them back if he needs to defend himself.? As patient has presented several times to the emergency room in between admissions he is demonstrating that he is struggling to function in the community.? He has an extensive history of medication noncompliance. He has chronic paranoid delusions and auditory hallucinations that his neighbors are going to hurt him which intermittently expand to thoughts about preparing to defend himself.? Will continue treatment however, given his long hx of refractory psychosis, no insight and poor adherence with medication, team agrees that patient needs a more long-term admission to stabilize to the point where he could successfully live in the community. PLAN: Section 8b Patient Civil Committed and substituted judgment for medications ordered. Medication plan:? Attempting trial of clozapine; overlapping Haldol/Depakote (which have only been minimally helpful) while seeing if clozapine it can be effective INCREASE TO Clozapine? 250mg QHS (to help with adherencewas split dosing) CANNOT REFUSE; COURT ORDERED; GIVE HALDOL 5MG IF REFUSES ANC on 03/09:? 3.5 ANC weekly LOWERED to Divalproex ER 1000 mg PO QHS starting on 03/19 (although at 1750 mg patient at therapeutic level, there is No history of bipolar/sunni; effort to see if clozapine can work as monotherapy; also patient complains of daytime sedation) Continue Haloperidol 10 mg BID (eventual Plan to taper and dc to see if Clozapine alone is effective) CANNOT REFUSE; COURT ORDERED; GIVE HALDOL 5MG IF REFUSES (5mg sufficient since he may be getting additional haldol for refusal of clozapine and overall plan is to taper off Haldol anyway) Continue Benztropine Mesylate (Benztropine Mesylate 0.5 Mg Tablet)? 0.5 mg PO qHS Continue Clonidine HCl (Clonidine Hcl 0.1 Mg Tablet)? 0.1 mg PO TID PRN Reason: hyperarousal Trazodone HCl? 50 mg PO BEDTIME PRN Insomnia Hydroxyzine HCl (Hydroxyzine Hcl 25 Mg Tablet)? 25 mg PO Q6H PRN Anxiety DC Quetiapine qhs; pt does not want
--- NOTE | 2022-03-21 09:26 | HO.PSYCHPN ---
Subjective Subjective Date of Service: 03/21/22 Reason For Visit: schizoaffective Interim History: pt difficult to engage; asks when he'll be discharged even though yesterday team met with pt to inform about application to [facility]. Does not answer writers questions about AH; property underwriter attempts to discuss med management and effort to reduce daytime tiredness (which is typical for him during admission) but pt remains disinterested and dismissive. Mental Status Exam Mental Status Exam Narrative: Pt is alert and oriented; behavior is with limited cooperation, quiet; dressed in casual attire, wearing casual cloths, adequately groomed and with adequate hygiene; mood is irritable and affect constricted; eye contact minimal or intense; Speech is normal normal rate but louder volume; normal prosody. intermittent psychomotor agitation present; thought process is disorganized; Thought content is on paranoid delusional worries about being persecuted by his neighbors; sometimes TC can stay pertinent to relevant topics; Denies SI/HI. Positive for AH;? Patients insight and judgment are impaired Diagnostics Vital Signs (24Hr): Vital Signs - 24 hr 03/20/22 18:00 03/21/22 09:23 Temperature 98 F 98.0 F Pulse Rate 95 111 H Respiratory Rate 16 18 Blood Pressure 138/86 124/74 Pulse Oximetry 97 97 BMI result Body Mass Index 36.1 Labs Results: 03/01/22 18:29 Medications Medications Current Medications Acetaminophen (Acetaminophen 325 Mg Tablet) 650 mg PO Q6H PRN PRN Reason: Headache/Pain Mild Scale (1-3) Last Admin: 03/03/22 22:41 Dose: 650 mg Documented by: Al Hydroxide/Mg Hydroxide (Magnesium Hydrox/Alum Hydrox 30 Ml Oral.Susp) 30 ml PO Q6H PRN PRN Reason: Heartburn/Nausea Albuterol Sulfate (Albuterol Sulfate 90 Mcg 8 Gm Inhaler) 2 puff INHALE RQ4H PRN PRN Reason: Shortness Of Breath Benztropine Mesylate (Benztropine Mesylate 0.5 Mg Tablet) 0.5 mg PO BEDTIME JOE Last Admin: 03/20/22 21:02 Dose: 0.5 mg Documented by: Clonidine HCl (Clonidine Hcl 0.1 Mg Tablet) 0.1 mg PO TID PRN; Protocol PRN Reason: hyperarousal Last Admin: 04/27/22 21:47 Dose: 0.1 mg Documented by: Clozapine (Clozapine 100 Mg Tablet) 200 mg PO BEDTIME [facility] Last Admin: 03/20/22 20:59 Dose: 200 mg Documented by: Clozapine (Clozapine 25 Mg Tablet) 50 mg PO BEDTIME [facility] Last Admin: 03/20/22 20:59 Dose: 50 mg Documented by: Diphenhydramine HCl (Diphenhydramine Hcl 25 Mg Tablet) 50 mg PO Q4H PRN PRN Reason: agitation Divalproex Sodium (Divalproex Sodium Er 500 Mg Tab.Er.24h) 1,000 mg PO BEDTIME [facility] Last Admin: 03/20/22 20:58 Dose: 1,000 mg Documented by: Haloperidol (Haloperidol 5 Mg Tablet) 10 mg PO BID@1000,2200 [facility] Last Admin: 03/21/22 09:22 Dose: 10 mg Documented by: Haloperidol (Haloperidol 5 Mg Tablet) 10 mg PO Q4H PRN PRN Reason: agitation Haloperidol Lactate (Haloperidol Lactate 5 Mg/Ml Vial) 5 mg IM QID PRN PRN Reason: if refuses PO Hydroxyzine HCl (Hydroxyzine Hcl 25 Mg Tablet) 25 mg PO Q6H PRN PRN Reason: Anxiety Lidocaine HCl (Lidocaine 4 % Cream Kit) 1 appl TOPICAL DAILY PRN; Protocol PRN Reason: prophylactiinjection site pain Magnesium Hydroxide (Milk Of Magnesia 30 Ml Oral.Susp) 30 ml PO DAILY PRN PRN Reason: Constipation Trazodone HCl (Trazodone Hcl 50 Mg Tablet) 50 mg PO BEDTIME PRN PRN Reason: Insomnia Allergies Allergies Allergy/AdvReac Type Severity Reaction Status Date / Time No Known Allergies Allergy Verified 02/19/22 03:39 [No Known Allergies*] Assessment & Plan Assessment & Plan (1) Schizophrenia, paranoid, chronic with acute exacerbation: Status: Acute Code(s): F20.0 - Paranoid schizophrenia Plan Nura is a 26 y.o. male who carries a dx of paranoid schizophrenia. Hx of AH, has fixed delusion of believing neighbors are talking about him. Has DMH and ACCS services through [facility]. No Catarino's order. Hx of med non-adherence upon discharge. HOSPITAL COURSE: 02/24: Ct treatment plan 02/25: Ct Rx plan. May need committment. Lacks insight and is non compliant with meds. 02/26: Pt adamantly does not want to increase haldol or depakote. Will start seroquel 300 mg QHS for sx of psychotic depression, has not had adequate trial on seroquel. May help with poor sleep. 02/27: Pt has been refusing all meds; AH complaints but denies any SI/HI and his demonstrate safe behaviors on the unit 02/28 retracted 3 day, remains preoccupied with auditory hallucinations of his neighbors and delusional thoughts that his neighbors are persecuting him agrees to stay for treatment; considering clozapine 03/01 Angry and demanding discharge and 3 day notice placed; difficult to engage; no insight.? Refused morning dose of Haldol.? At said he is taking clozapine before and resisted reality testing; however said will still consider 03/02 patient willingly taking clozapine 03/06 patient intermittently takes clozapine; he is disorganized in behavior and thought, intermittently yelling and accusing staff and posturing and threatening staff.? Patient struggles to understand that his rent is paid for; while talking about a specific topic, patient will intermittently respond with a disorganized irrelevant answer.? Patient has failed monotherapy with Seroquel, Palliperidone, Risperdal and Haldol.? Will continue to titrate clozapine as patient is willing to see if this can be effective.? Patient has a 3 day notice due today 03/06/2022.? Team finds that patient is unstable and not safe to return the community as he has ongoing auditory hallucinations and paranoid delusional thoughts that about his neighbors plotting to hurt him.? Will file for Civil commitment; also discussed is that patient may need long-term admission to better establish stability. 03/08 patient disorganized; refused labs making it difficult to titrate clozapine.? Will continue to trying get patient to allow labs 03/09 remains disorganized, sometimes adhering to treatment other times refusing it without any clear pattern.? Patient is not amenable to logical explanation and his engagement in tx is unpredictable making dosing with Clozapine (and depakote) difficult as it requires periodic blood work and controlled titration.? However, Will continue with attempts at clozapine since this seems to be best option for patient to become stabilized 03/10 remains disorganized; won't engage; continues to have 03/13 CIVIL COMMITMENT AND SUBSTITUTED JUDGMENT ORDERED 03/16 continue current tx plan 03/19 Patient has moments of insight but quickly descends back into struggles with paranoia, disorganized thinking, thinking AH are real. Patient struggles with taking medication are difficult to predict. Hope is that clozapine as a monotherapy will be sufficient; property underwriter discussed case with patient's past inpatient provider and there is no history of bipolar/manic episodes and Depakote only used for impulsivity/anger. Thus, will lower Depakote to a 1000 mg q.h.s. With clozapine, it may be easier for patient to tolerate single dosing so will see if moving the entire dose to bedtime helps with adherence rather than being asked to take medications twice a day. That said, sometimes patient wakes up in the morning and demands his morning medications so it is difficult to know The best way to mitigate his his anxiety around this issue. 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 He has a hx of multiple inpatient admissions, including 1 about a month ago with very similar presentation, refusing to take meds, asking for discharge and deemed safe to return to the community. He has been re-presenting to [facility] after being discharged with the same presentation, not dangerous, but asking for help and then refusing treatment wanting discharge. He continues to have auditory hallucinations about his neighbor.?Initially, he has not expressed any delusional concerns that his neighbor is going to hurt him, just that his neighbors talking about him and so considered discharge.?However, Patient soon expressed concerns that his neighbors are plotting to harm him and that he is prepared to harm them back if he needs to defend himself.? As patient has presented several times to the emergency room in between admissions he is demonstrating that he is struggling to function in the community.? He has a history of medication noncompliance. He has chronic paranoid delusions and auditory hallucinations that his neighbors are going to hurt him which intermittently expand to thoughts about preparing to defend himself.? Will continue treatment however is possible that patient may need long-term admission to better establish stability. PLAN: Section 8b Patient Civil Committed and substituted judgment for medications ordered. Medication plan:? Trial of clozapine; overlap Haldol/Depak (minimally helpful) for now; goal to see if clozapine can be effective alone Clozapine 250mg QHS (to help with adherencewas split dosing) CANNOT REFUSE; COURT ORDERED; GIVE HALDOL 5MG IF REFUSES ANC on 03/09:? 3.5 ANC weekly LOWERED to Divalproex ER 1000 mg PO QHS starting on 03/19 (although at 1750 mg patient at therapeutic level, there is No history of bipolar/sunni; effort to see if clozapine can work is monotherapy and patient complains of daytime sedation) Continue Haloperidol 10 mg BID (Plan to taper and dc if Clozapine effective) CANNOT REFUSE; COURT ORDERED; GIVE HALDOL 5MG IF REFUSES (5mg sufficient since he may be getting additional haldol for refusal of clozapine and overall plan is to taper off Haldol anyway) Continue Benztropine Mesylate (Benztropine Mesylate 0.5 Mg Tablet)? 0.5 mg PO qHS Continue Clonidine HCl (Clonidine Hcl 0.1 Mg Tablet)? 0.1 mg PO TID PRN Reason: hyperarousal Trazodone HCl? 50 mg PO BEDTIME PRN Insomnia Hydroxyzine HCl (Hydroxyzine Hcl 25 Mg Tablet)? 25 mg PO Q6H PRN Anxiety DC Quetiapine qhs; pt does not want MED Trials: Seroquel Palliperidone Risperdal Haldol I spent minutes with the patient and/or on the patient floor today, greater than?50% of which was spent counseling/coordinating care. Patient educated on: diagnosis and medication risk/benefits Informed Consent: does not understand and further education needed Reason for contiued inpatient stay Substantial Risk for: inability to function
[2022-03-21] MEDS: Divalproex Sodium ER 500 MG TAB.ER.24H 1000 MG PO (22:26)
[2022-03-21] MEDS: cloZAPine 25 MG TABLET 50 MG PO (22:27)
[2022-03-21] MEDS: cloZAPine 100 MG TABLET 200 MG PO (22:27)
--- NOTE | 2022-03-22 12:15 | HO.PSYCHPN ---
Subjective Subjective Date of Service: 03/23/22 Reason For Visit: schizoaffective Interim History: late entry for patient seen on 03/22 No change; patient difficult to engage Mental Status Exam Mental Status Exam Narrative: Pt is alert and oriented; behavior is with limited cooperation, quiet; dressed in casual attire, wearing casual cloths, adequately groomed and with adequate hygiene; mood is irritable and affect constricted; eye contact minimal or intense; Speech is normal normal rate but louder volume; normal prosody. intermittent psychomotor agitation present; thought process is disorganized; Thought content is on paranoid delusional worries about being persecuted by his neighbors; sometimes TC can stay pertinent to relevant topics; Denies SI/HI. Positive for AH;? Patients insight and judgment are impaired Diagnostics Vital Signs (24Hr): Vital Signs - 24 hr 03/22/22 18:00 Respiratory Rate 16 BMI result Body Mass Index 36.1 Labs Results: 03/01/22 18:29 Labs: Laboratory Results - last 48 hr 03/23/22 09:33 Absolute Neuts (auto) 4.1 Medications Medications Current Medications Acetaminophen (Acetaminophen 325 Mg Tablet) 650 mg PO Q6H PRN PRN Reason: Headache/Pain Mild Scale (1-3) Last Admin: 03/03/22 22:41 Dose: 650 mg Documented by: Al Hydroxide/Mg Hydroxide (Magnesium Hydrox/Alum Hydrox 30 Ml Oral.Susp) 30 ml PO Q6H PRN PRN Reason: Heartburn/Nausea Albuterol Sulfate (Albuterol Sulfate 90 Mcg 8 Gm Inhaler) 2 puff INHALE RQ4H PRN PRN Reason: Shortness Of Breath Benztropine Mesylate (Benztropine Mesylate 0.5 Mg Tablet) 0.5 mg PO BEDTIME JOE Last Admin: 03/22/22 21:46 Dose: Not Given Documented by: Clonidine HCl (Clonidine Hcl 0.1 Mg Tablet) 0.1 mg PO TID PRN; Protocol PRN Reason: hyperarousal Last Admin: 02/28/22 21:47 Dose: 0.1 mg Documented by: Clozapine (Clozapine 100 Mg Tablet) 200 mg PO BEDTIME JOE Last Admin: 03/22/22 18:56 Dose: 200 mg Documented by: Clozapine (Clozapine 25 Mg Tablet) 75 mg PO BEDTIME JOE Last Admin: 03/22/22 18:56 Dose: 75 mg Documented by: Diphenhydramine HCl (Diphenhydramine Hcl 25 Mg Tablet) 50 mg PO Q4H PRN PRN Reason: agitation Divalproex Sodium (Divalproex Sodium Er 500 Mg Tab.Er.24h) 1,000 mg PO BEDTIME [facility] Last Admin: 03/22/22 21:46 Dose: Not Given Documented by: Haloperidol (Haloperidol 5 Mg Tablet) 10 mg PO BID@1000,2200 [facility] Last Admin: 03/23/22 09:20 Dose: 10 mg Documented by: Haloperidol (Haloperidol 5 Mg Tablet) 10 mg PO Q4H PRN PRN Reason: agitation Haloperidol Lactate (Haloperidol Lactate 5 Mg/Ml Vial) 5 mg IM QID PRN PRN Reason: if refuses PO Hydroxyzine HCl (Hydroxyzine Hcl 25 Mg Tablet) 25 mg PO Q6H PRN PRN Reason: Anxiety Lidocaine HCl (Lidocaine 4 % Cream Kit) 1 appl TOPICAL DAILY PRN; Protocol PRN Reason: prophylactiinjection site pain Magnesium Hydroxide (Milk Of Magnesia 30 Ml Oral.Susp) 30 ml PO DAILY PRN PRN Reason: Constipation Trazodone HCl (Trazodone Hcl 50 Mg Tablet) 50 mg PO BEDTIME PRN PRN Reason: Insomnia Allergies Allergies Allergy/AdvReac Type Severity Reaction Status Date / Time No Known Allergies Allergy Verified 02/19/22 03:39 [No Known Allergies*] Assessment & Plan Assessment & Plan (1) Schizophrenia, paranoid, chronic with acute exacerbation: Status: Acute Code(s): F20.0 - Paranoid schizophrenia Plan Nura is a 26 y.o. male who carries a dx of paranoid schizophrenia. Hx of AH, has fixed delusion of believing neighbors are talking about him. Has DMH and ACCS services through [facility]. No Catarino's order. Hx of med non-adherence upon discharge. HOSPITAL COURSE: 02/24: Ct treatment plan 02/25: Ct Rx plan. May need committment. Lacks insight and is non compliant with meds. 02/26: Pt adamantly does not want to increase haldol or depakote. Will start seroquel 300 mg QHS for sx of psychotic depression, has not had adequate trial on seroquel. May help with poor sleep. 02/27: Pt has been refusing all meds; AH complaints but denies any SI/HI and his demonstrate safe behaviors on the unit 02/28 retracted 3 day, remains preoccupied with auditory hallucinations of his neighbors and delusional thoughts that his neighbors are persecuting him agrees to stay for treatment; considering clozapine 03/01 Angry and demanding discharge and 3 day notice placed; difficult to engage; no insight.? Refused morning dose of Haldol.? At said he is taking clozapine before and resisted reality testing; however said will still consider 03/02 patient willingly taking clozapine 03/06 patient intermittently takes clozapine; he is disorganized in behavior and thought, intermittently yelling and accusing staff and posturing and threatening staff.? Patient struggles to understand that his rent is paid for; while talking about a specific topic, patient will intermittently respond with a disorganized irrelevant answer.? Patient has failed monotherapy with Seroquel, Palliperidone, Risperdal and Haldol.? Will continue to titrate clozapine as patient is willing to see if this can be effective.? Patient has a 3 day notice due today 03/06/2022.? Team finds that patient is unstable and not safe to return the community as he has ongoing auditory hallucinations and paranoid delusional thoughts that about his neighbors plotting to hurt him.? Will file for Civil commitment; also discussed is that patient may need long-term admission to better establish stability. 03/08 patient disorganized; refused labs making it difficult to titrate clozapine.? Will continue to trying get patient to allow labs 03/09 remains disorganized, sometimes adhering to treatment other times refusing it without any clear pattern.? Patient is not amenable to logical explanation and his engagement in tx is unpredictable making dosing with Clozapine (and depakote) difficult as it requires periodic blood work and controlled titration.? However, Will continue with attempts at clozapine since this seems to be best option for patient to become stabilized 03/10 remains disorganized; won't engage; continues to have AH 03/13 CIVIL COMMITMENT AND SUBSTITUTED JUDGMENT ORDERED 03/16 continue current tx plan 03/19 Patient has moments of insight but quickly descends back into struggles with paranoia, disorganized thinking, thinking AH are real. Patient struggles with taking medication are difficult to predict. Hope is that clozapine as a monotherapy will be sufficient; mortgage or loan underwriter discussed case with patient's past inpatient provider and there is no history of bipolar/manic episodes and Depakote only used for impulsivity/anger. Thus, will lower Depakote to a 1000 mg q.h.s. With clozapine, it may be easier for patient to tolerate single dosing so will see if moving the entire dose to bedtime helps with adherence rather than being asked to take medications twice a day. That said, sometimes patient wakes up in the morning and demands his morning medications so it is difficult to know The best way to mitigate his his anxiety around this issue. Formulation: Structural Technician discussed case with colleagues who have worked with patient in the past and also with staff on the unit for current admission. He has a hx of multiple inpatient admissions, including 1 about a month ago with very similar presentation, refusing to take meds, asking for discharge and deemed safe to return to the community. He has been re-presenting to [facility] [place] [facility] after being discharged with the same presentation, not dangerous, but asking for help and then refusing treatment wanting discharge. He continues to have auditory hallucinations about his neighbor.?Initially, he has not expressed any delusional concerns that his neighbor is going to hurt him, just that his neighbors talking about him and so considered discharge.?However, Patient soon expressed concerns that his neighbors are plotting to harm him and that he is prepared to harm them back if he needs to defend himself.? As patient has presented several times to the emergency room in between admissions he is demonstrating that he is struggling to function in the community.? He has a history of medication noncompliance. He has chronic paranoid delusions and auditory hallucinations that his neighbors are going to hurt him which intermittently expand to thoughts about preparing to defend himself.? Will continue treatment however is possible that patient may need long-term admission to better establish stability. PLAN: Section 8b Patient Civil Committed and substituted judgment for medications ordered. Medication plan:? Trial of clozapine; overlap Haldol/Depak (minimally helpful) for now; goal to see if clozapine can be effective alone Clozapine 250mg QHS (to help with adherencewas split dosing) CANNOT REFUSE; COURT ORDERED; GIVE HALDOL 5MG IF REFUSES ANC on 03/09:? 3.5 ANC weekly LOWERED to Divalproex ER 1000 mg PO QHS starting on 03/19 (although at 1750 mg patient at therapeutic level, there is No history of bipolar/sunni; effort to see if clozapine can work is monotherapy and patient complains of daytime sedation) Continue Haloperidol 10 mg BID (Plan to taper and dc if Clozapine effective) CANNOT REFUSE; COURT ORDERED; GIVE HALDOL 5MG IF REFUSES (5mg sufficient since he may be getting additional haldol for refusal of clozapine and overall plan is to taper off Haldol anyway) Continue Benztropine Mesylate (Benztropine Mesylate 0.5 Mg Tablet)? 0.5 mg PO qHS Continue Clonidine HCl (Clonidine Hcl 0.1 Mg Tablet)? 0.1 mg PO TID PRN Reason: hyperarousal Trazodone HCl? 50 mg PO BEDTIME PRN Insomnia Hydroxyzine HCl (Hydroxyzine Hcl 25 Mg Tablet)? 25 mg PO Q6H PRN Anxiety DC Quetiapine qhs; pt does not want MED Trials: Seroquel Palliperidone Risperdal Haldol I spent minutes with the patient and/or on the patient floor today, greater than?50% of which was spent counseling/coordinating care. Reason for contiued inpatient stay Substantial Risk for: rapid decompensation
[2022-03-22 18:00] VITALS: RESP 16
[2022-03-22] MEDS: cloZAPine 25 MG TABLET 75 MG PO (18:56)
[2022-03-22] MEDS: cloZAPine 100 MG TABLET 200 MG PO (18:56)
--- NOTE | 2022-03-22 19:08 | PC.NURSE ---
Pt slept entire 1st shift. Haldol 10 mg not given due to sedation, Dr Zavaleta informed.
[2022-03-22] MEDS: HaloperidoL 5 MG TABLET 10 MG PO (21:31)
[2022-03-23] MEDS: HaloperidoL 5 MG TABLET 10 MG PO (09:20)
[2022-03-23 09:51] LABS: Neut%MD 53.3 %; Neutrophils Absolute Auto 4.1 x10*3/uL (2.0-8.3); WBCANC 7.7 X10*3/uL
[2022-03-23 18:00] VITALS: RESP 16
[2022-03-23] MEDS: cloZAPine 25 MG TABLET 75 MG PO (19:18)
[2022-03-23] MEDS: cloZAPine 100 MG TABLET 200 MG PO (19:19)
[2022-03-24] MEDS: HaloperidoL 5 MG TABLET 10 MG PO (12:03)
[2022-03-24 17:38] VITALS: RESP 18
[2022-03-24] MEDS: cloZAPine 25 MG TABLET 75 MG PO (18:57)
[2022-03-24] MEDS: cloZAPine 100 MG TABLET 200 MG PO (18:57)
--- NOTE | 2022-03-24 20:55 | P.PNPSI_ITS ---
Subjective Subjective Date of Service: 03/24/22 Reason For Visit: schizoaffective Subjective Notes: Yu Warning and Section 8 Healthcare Proxy: No Guardianship: No Medical Problems Affecting Mental Status: No Interim History: Patient seen and discussed with team. Pt has been adherent with clozapine. Pt asleep, declined participation in interview today. In the milieu, patient is safe in behavior. Denies SI/SIB/HI upon inquiry. Denies irritability or assaultive ideation. Says he feels safe. Medication Compliance: Intermittent Side effects from medications: No Attending Groups: No Review of Systems Acute medical concerns: No Medical Review of Systems: unchanged Mental Status Exam Mental Status Exam Narrative: Pt is alert and oriented; behavior is with limited cooperation, irritable, yelling; dressed in casual attire, wearing casual cloths, adequately groomed and with adequate hygiene; mood is irritable and affect constricted; eye contact minimal or intense; Speech is normal normal rate but louder volume; normal prosody. intermittent psychomotor agitation present; thought process is disorganized; Thought content is on discharge, paying his rent, paranoid delusional worries about being persecuted by his neighbors; sometimes TC can stay pertinent to relevant topics; Denies SI/HI. denies AH;? Patients insight and judgment are impaired Diagnostics Vital Signs (24Hr): Vital Signs - 24 hr 03/24/22 17:38 Respiratory Rate 18 BMI result Body Mass Index 36.1 Labs Results: 03/01/22 18:29 Labs: Laboratory Results - last 48 hr 03/23/22 09:33 Absolute Neuts (auto) 4.1 Medications Medications Current Medications Acetaminophen (Acetaminophen 325 Mg Tablet) 650 mg PO Q6H PRN PRN Reason: Headache/Pain Mild Scale (1-3) Last Admin: 03/03/22 22:41 Dose: 650 mg Documented by: Al Hydroxide/Mg Hydroxide (Magnesium Hydrox/Alum Hydrox 30 Ml Oral.Susp) 30 ml PO Q6H PRN PRN Reason: Heartburn/Nausea Albuterol Sulfate (Albuterol Sulfate 90 Mcg 8 Gm Inhaler) 2 puff INHALE RQ4H PRN PRN Reason: Shortness Of Breath Benztropine Mesylate (Benztropine Mesylate 0.5 Mg Tablet) 0.5 mg PO BEDTIME JOE Last Admin: 03/24/22 18:58 Dose: Not Given Documented by: Clonidine HCl (Clonidine Hcl 0.1 Mg Tablet) 0.1 mg PO TID PRN; Protocol PRN Reason: hyperarousal Last Admin: 02/28/22 21:47 Dose: 0.1 mg Documented by: Clozapine (Clozapine 100 Mg Tablet) 200 mg PO BEDTIME [facility] Last Admin: 03/24/22 18:57 Dose: 200 mg Documented by: Clozapine (Clozapine 25 Mg Tablet) 75 mg PO BEDTIME [facility] Last Admin: 03/24/22 18:57 Dose: 75 mg Documented by: Diphenhydramine HCl (Diphenhydramine Hcl 25 Mg Tablet) 50 mg PO Q4H PRN PRN Reason: agitation Divalproex Sodium (Divalproex Sodium Er 500 Mg Tab.Er.24h) 1,000 mg PO BEDTIME [facility] Last Admin: 03/24/22 18:58 Dose: Not Given Documented by: Haloperidol (Haloperidol 5 Mg Tablet) 10 mg PO BID@1000,2200 [facility] Last Admin: 03/24/22 18:58 Dose: Not Given Documented by: Haloperidol (Haloperidol 5 Mg Tablet) 10 mg PO Q4H PRN PRN Reason: agitation Haloperidol Lactate (Haloperidol Lactate 5 Mg/Ml Vial) 5 mg IM QID PRN PRN Reason: if refuses PO Hydroxyzine HCl (Hydroxyzine Hcl 25 Mg Tablet) 25 mg PO Q6H PRN PRN Reason: Anxiety Lidocaine HCl (Lidocaine 4 % Cream Kit) 1 appl TOPICAL DAILY PRN; Protocol PRN Reason: prophylactiinjection site pain Magnesium Hydroxide (Milk Of Magnesia 30 Ml Oral.Susp) 30 ml PO DAILY PRN PRN Reason: Constipation Trazodone HCl (Trazodone Hcl 50 Mg Tablet) 50 mg PO BEDTIME PRN PRN Reason: Insomnia Allergies Allergies Allergy/AdvReac Type Severity Reaction Status Date / Time No Known Allergies Allergy Verified 02/19/22 03:39 [No Known Allergies*] Assessment & Plan Assessment & Plan (1) Schizophrenia, paranoid, chronic with acute exacerbation: Status: Acute Code(s): F20.0 - Paranoid schizophrenia Plan Nura is a 26 y.o. male who carries a dx of paranoid schizophrenia. Hx of , has fixed delusion of believing neighbors are talking about him. Has DMH and ACCS services through [facility]. No Catarino's order. Hx of med non-adherence upon discharge. HOSPITAL COURSE: 02/24: Ct treatment plan 02/25: Ct Rx plan. May need committment. Lacks insight and is non compliant with meds. 02/26: Pt adamantly does not want to increase haldol or depakote. Will start seroquel 300 mg QHS for sx of psychotic depression, has not had adequate trial on seroquel. May help with poor sleep. 02/27: Pt has been refusing all meds; AH complaints but denies any SI/HI and his demonstrate safe behaviors on the unit 02/28 retracted 3 day, remains preoccupied with auditory hallucinations of his neighbors and delusional thoughts that his neighbors are persecuting him agrees to stay for treatment; considering clozapine 03/01 Angry and demanding discharge and 3 day notice placed; difficult to engage; no insight.? Refused morning dose of Haldol.? At said he is taking clozapine before and resisted reality testing; however said will still consider 03/02 patient willingly taking clozapine 03/06 patient intermittently takes clozapine; he is disorganized in behavior and thought, intermittently yelling and accusing staff and posturing and threatening staff.? Patient struggles to understand that his rent is paid for; while talking about a specific topic, patient will intermittently respond with a disorganized irrelevant answer.? Patient has failed monotherapy with Seroquel, Palliperidone, Risperdal and Haldol.? Will continue to titrate clozapine as patient is willing to see if this can be effective.? Patient has a 3 day notice due today 2021.? Team finds that patient is unstable and not safe to return the community as he has ongoing auditory hallucinations and paranoid delusional thoughts that about his neighbors plotting to hurt him.? Will file for Civil commitment; also discussed is that patient may need long-term admission to better establish stability. 5 patient disorganized; refused labs making it difficult to titrate cloz apine.? Will continue to trying get patient to allow labs 6 remains disorganized, sometimes adhering to treatment other times refusing it without any clear pattern.? Patient is not amenable to logical explanation and his engagement in tx is unpredictable making dosing with Clozapine (and depakote) difficult as it requires periodic blood work and controlled titration.? However, Will continue with attempts at clozapine since this seems to be best option for patient to become stabilized 03/10 remains disorganized; won't engage; continues to have AH 03/13 CIVIL COMMITMENT AND SUBSTITUTED JUDGMENT ORDERED 03/16 continue current tx plan 03/19 Patient has moments of insight but quickly descends back into struggles with paranoia, disorganized thinking, thinking AH are real. Patient struggles with taking medication are difficult to predict. Hope is that clozapine as a monotherapy will be sufficient; database report writer discussed case with patient's past inpatient provider and there is no history of bipolar/manic episodes and Depakote only used for impulsivity/anger. Thus, will lower Depakote to a 1000 mg q.h.s. With clozapine, it may be easier for patient to tolerate single dosing so will see if moving the entire dose to bedtime helps with adherence rather than being asked to take medications twice a day. That said, sometimes patient wakes up in the morning and demands his morning medications so it is difficult to know The best way to mitigate his his anxiety around this issue. 03/24 No changes, continue clozapine trial Formulation: Front Office Agent discussed case with colleagues who have worked with patient in the past and also with staff on the unit for current admission. He has a hx of multiple inpatient admissions, including 1 about a month ago with very similar presentation, refusing to take meds, asking for discharge and deemed safe to return to the community. He has been re-presenting [place] [facility] after being discharged with the same presentation, not dangerous, but asking for help and then refusing treatment wanting discharge. He continues to have auditory hallucinations about his neighbor.?Initially, he has not expressed any delusional concerns that his neighbor is going to hurt him, just that his neighbors talking about him and so considered discharge.?However, Patient soon expressed concerns that his neighbors are plotting to harm him and that he is prepared to harm them back if he needs to defend himself.? As patient has presen genaro several times to the emergency room in between admissions he is demonstrating that he is struggling to function in the community.? He has a history of medication noncompliance. He has chronic paranoid delusions and auditory hallucinations that his neighbors are going to hurt him which intermittently expand to thoughts about preparing to defend himself.? Will continue treatment however is possible that patient may need long-term admission to better establish stability. PLAN: Section 8b Patient Civil Committed and substituted judgment for medications ordered. Medication plan:? Trial of clozapine; overlap Haldol/Depak (minimally helpful) for now; goal to see if clozapine can be effective alone Clozapine 250mg QHS (to help with adherencewas split dosing) CANNOT REFUSE; COURT ORDERED; GIVE HALDOL 5MG IF REFUSES ANC on 03/09:? 3.5 ANC weekly LOWERED to Divalproex ER 1000 mg PO QHS starting on 03/19 (although at 1750 mg patient at therapeutic level, there is No history of bipolar/sunni; effort to see if clozapine can work is monotherapy and patient complains of daytime sedation) Continue Haloperidol 10 mg BID (Plan to taper and dc if Clozapine effective) CA NNOT REFUSE; COURT ORDERED; GIVE HALDOL 5MG IF REFUSES (5mg sufficient since he may be getting additional haldol for refusal of clozapine and overall plan is to taper off Haldol anyway) Continue Benztropine Mesylate (Benztropine Mesylate 0.5 Mg Tablet)? 0.5 mg PO qHS Continue Clonidine HCl (Clonidine Hcl 0.1 Mg Tablet)? 0.1 mg PO TID PRN Reason: hyperarousal Trazodone HCl? 50 mg PO BEDTIME PRN Insomnia Hydroxyzine HCl (Hydroxyzine Hcl 25 Mg Tablet)? 25 mg PO Q6H PRN Anxiety DC Quetiapine qhs; pt does not want MED Trials: Seroquel Palliperidone Risperdal Haldol I spent minutes with the patient and/or on the patient floor today, greater than?50% of which was spent counseling/coordinating care. Patient educated on: other Reason for contiued inpatient stay Substantial Risk for: inability to function, rapid decompensation and med/psych decompensation
[2022-03-25] MEDS: HaloperidoL 5 MG TABLET 10 MG PO ×2 (11:58→21:38)
--- NOTE | 2022-03-25 20:02 | P.PNPSI_ITS ---
Subjective Subjective Date of Service: 03/25/22 Reason For Visit: schizoaffective Subjective Notes: Yu Warning and Section 8 Healthcare Proxy: No Guardianship: No Medical Problems Affecting Mental Status: No Interim History: Patient seen and discussed with team. Patient evaluated today and upon interview he is found asleep in his room, often sleeping in the day, declined interview other than asking what time am i gonna get out of here. In the milieu, patient is safe in behavior. Denies SI/SIB/HI upon inquiry. Denies irritability or assaultive ideation. Says he feels safe. Medication Compliance: Intermittent Side effects from medications: No Attending Groups: No Review of Systems Acute medical concerns: No Medical Review of Systems: unchanged Mental Status Exam Mental Status Exam Narrative: Pt is alert and oriented; behavior is with limited cooperation, irritable, yelling; dressed in casual attire, wearing casual cloths, adequately groomed and with adequate hygiene; mood is irritable and affect constricted; eye contact minimal or intense; Speech is normal normal rate but louder volume; normal prosody. intermittent psychomotor agitation present; thought process is disorganized; Thought content is on discharge, paying his rent, paranoid delusional worries about being persecuted by his neighbors; sometimes TC can stay pertinent to relevant topics; Denies SI/HI. denies AH;? Patients insight and judgment are impaired Diagnostics Vital Signs (24Hr): Vital Signs - 24 hr 03/26/22 20:35 Temperature 98.6 F Pulse Rate 116 H Respiratory Rate 20 Pulse Oximetry 95 BMI result Body Mass Index 36.1 Labs Results: 03/01/22 18:29 Medications Medications Current Medications Acetaminophen (Acetaminophen 325 Mg Tablet) 650 mg PO Q6H PRN PRN Reason: Headache/Pain Mild Scale (1-3) Last Admin: 03/03/22 22:41 Dose: 650 mg Documented by: Al Hydroxide/Mg Hydroxide (Magnesium Hydrox/Alum Hydrox 30 Ml Oral.Susp) 30 ml PO Q6H PRN PRN Reason: Heartburn/Nausea Albuterol Sulfate (Albuterol Sulfate 90 Mcg 8 Gm Inhaler) 2 puff INHALE RQ4H PRN PRN Reason: Shortness Of Breath Benztropine Mesylate (Benztropine Mesylate 0.5 Mg Tablet) 0.5 mg PO BEDTIME [facility] Last Admin: 05/23/22 22:33 Dose: 0.5 mg Documented by: Clonidine HCl (Clonidine Hcl 0.1 Mg Tablet) 0.1 mg PO TID PRN; Protocol PRN Reason: hyperarousal Last Admin: 02/28/22 21:47 Dose: 0.1 mg Documented by: Clozapine (Clozapine 100 Mg Tablet) 300 mg PO DAILY@1700 JOE Last Admin: 03/26/22 15:16 Dose: 300 mg Documented by: Diphenhydramine HCl (Diphenhydramine Hcl 25 Mg Tablet) 50 mg PO Q4H PRN PRN Reason: agitation Haloperidol (Haloperidol 5 Mg Tablet) 10 mg PO Q4H PRN PRN Reason: agitation Haloperidol Lactate (Haloperidol Lactate 5 Mg/Ml Vial) 10 mg IM DAILY PRN PRN Reason: if refuses PO Hydroxyzine HCl (Hydroxyzine Hcl 25 Mg Tablet) 25 mg PO Q6H PRN PRN Reason: Anxiety Lidocaine HCl (Lidocaine 4 % Cream Kit) 1 appl TOPICAL DAILY PRN; Protocol PRN Reason: prophylactiinjection site pain Magnesium Hydroxide (Milk Of Magnesia 30 Ml Oral.Susp) 30 ml PO DAILY PRN PRN Reason: Constipation Trazodone HCl (Trazodone Hcl 50 Mg Tablet) 50 mg PO BEDTIME PRN PRN Reason: Insomnia Allergies Allergies Allergy/AdvReac Type Severity Reaction Status Date / Time No Known Allergies Allergy Verified 02/19/22 03:39 [No Known Allergies*] Assessment & Plan Assessment & Plan (1) Schizophrenia, paranoid, chronic with acute exacerbation: Status: Acute Code(s): F20.0 - Paranoid schizophrenia Plan Nura is a 26 y.o. male who carries a dx of paranoid schizophrenia. Hx of , has fixed delusion of believing neighbors are talking about him. Has DMH and ACCS services through [facility]. No Catarino's order. Hx of med non-adherence upon discharge. HOSPITAL COURSE: 02/24: Ct treatment plan 02/25: Ct Rx plan. May need committment. Lacks insight and is non compliant with meds. 02/26: Pt adamantly does not want to increase haldol or depakote. Will start seroquel 300 mg QHS for sx of psychotic depression, has not had adequate trial on seroquel. May help with poor sleep. 02/27: Pt has been refusing all meds; AH complaints but denies any SI/HI and his demonstrate safe behaviors on the unit 02/28 retracted 3 day, remains preoccupied with auditory hallucinations of his neighbors and delusional thoughts that his neighbors are persecuting him agrees to stay for treatment; considering clozapine 03/01 Angry and demanding discharge and 3 day notice placed; difficult to engage; no insight.? Refused morning dose of Haldol.? At said he is taking clozapine before and resisted reality testing; however said will still consider 03/02 patient willingly taking clozapine 03/06 patient intermittently takes clozapine; he is disorganized in behavior and thought, intermittently yelling and accusing staff and posturing and threatening staff.? Patient struggles to understand that his rent is paid for; while talking about a specific topic, patient will intermittently respond with a disorganized irrelevant answer.? Patient has failed monotherapy with Seroquel, Palliperidone, Risperdal and Haldol.? Will continue to titrate clozapine as patient is willing to see if this can be effective.? Patient has a 3 day notice due today 03/06/2022.? Team finds that patient is unstable and not safe to return the community as he has ongoing auditory hallucinations and paranoid delusional thoughts that about his neighbors plotting to hurt him.? Will file for Civil commitment; also discussed is that patient may need long-term admission to better establish stability. 03/08 patient disorganized; refused labs making it difficult to titrate clozapine.? Will continue to trying get patient to allow labs 03/09 remains disorganized, sometimes adhering to treatment other times refusing it without any clear pattern.? Patient is not amenable to logical explanation and his engagement in tx is unpredictable making dosing with Clozapine (and depakote) difficult as it requires periodic blood work and controlled titration.? However, Will continue with attempts at clozapine since this seems to be best option for patient to become stabilized 03/10 remains disorganized; won't engage; continues to have AH 03/13 CIVIL COMMITMENT AND SUBSTITUTED JUDGMENT ORDERED 03/16 continue current tx plan 03/19 Patient has moments of insight but quickly descends back into struggles with paranoia, disorganized thinking, thinking AH are real. Patient struggles with taking medication are difficult to predict. Hope is that clozapine as a monotherapy will be sufficient; publicity writer discussed case with patient's past inpatient provider and there is no history of bipolar/manic episodes and Depakote only used for impulsivity/anger. Thus, will lower Depakote to a 1000 mg q.h.s. With clozapine, it may be easier for patient to tolerate single dosing so will see if moving the entire dose to bedtime helps with adherence rather than being asked to take medications twice a day. That said, sometimes patient wakes up in the morning and demands his morning medications so it is difficult to know The best way to mitigate his his anxiety around this issue. 03/24 No changes, continue clozapine trial 03/25 No changes, adherent with clozapine Formulation: Chief Maintenance Supervisor discussed case with colleagues who have worked with patient in the past and also with staff on the unit for current admission. He has a hx of multiple inpatient admissions, including 1 about a month ago with very similar presentation, refusing to take meds, asking for discharge and deemed safe to return to the community. He has been re-presenting to [facility] after being discharged with the same presentation, not dangerous, but asking for help and then refusing treatment wanting discharge. He continues to have auditory hallucinations about his neighbor.?Initially, he has not expressed any delusional concerns that his neighbor is going to hurt him, just that his neighbors talking about him and so considered discharge.?However, Patient soon expressed concerns that his neighbors are plotting to harm him and that he is prepared to harm them back if he needs to defend himself.? As patient has presented several times to the emergency room in between admissions he is demonstrating that he is struggling to function in the community.? He has a history of medication noncompliance. He has chronic paranoid delusions and auditory hallucinations that his neighbors are going to hurt him which intermittently expand to thoughts about preparing to defend himself.? Will continue treatment however is possible that patient may need long-term admission to better establish stability. PLAN: Section 8b Patient Civil Committed and substituted judgment for medications ordered. Medication plan:? Trial of clozapine; overlap Haldol/Depak (minimally helpful) for now; goal to see if clozapine can be effective alone Clozapine 250mg QHS (to help with adherencewas split dosing) CANNOT REFUSE; COURT ORDERED; GIVE HALDOL 5MG IF REFUSES ANC on 03/09:? 3.5 ANC weekly LOWERED to Divalproex ER 1000 mg PO QHS starting on 03/19 (although at 1750 mg patient at therapeutic level, there is No history of bipolar/sunni; effort to see if clozapine can work is monotherapy and patient complains of daytime sedation) Continue Haloperidol 10 mg BID (Plan to taper and dc if Clozapine effective) CANNOT REFUSE; COURT ORDERED; GIVE HALDOL 5MG IF REFUSES (5mg sufficient since he may be getting additional haldol for refusal of clozapine and overall plan is to taper off Haldol anyway) Continue Benztropine Mesylate (Benztropine Mesylate 0.5 Mg Tablet)? 0.5 mg PO qHS Continue Clonidine HCl (Clonidine Hcl 0.1 Mg Tablet)? 0.1 mg PO TID PRN Reason: hyperarousal Trazodone HCl? 50 mg PO BEDTIME PRN Insomnia Hydroxyzine HCl (Hydroxyzine Hcl 25 Mg Tablet)? 25 mg PO Q6H PRN Anxiety DC Quetiapine qhs; pt does not want MED Trials: Seroquel Palliperidone Risperdal Haldol I spent minutes with the patient and/or on the patient floor today, greater than?50% of which was spent counseling/coordinating care. Reason for contiued inpatient stay Substantial Risk for: inability to function, rapid decompensation and med/psych decompensation
[2022-03-25] MEDS: cloZAPine 100 MG TABLET 200 MG PO (21:37)
[2022-03-25] MEDS: cloZAPine 25 MG TABLET 75 MG PO (21:37)
--- NOTE | 2022-03-26 09:44 | HO.PSYCHPN ---
Subjective Subjective Date of Service: 03/26/22 Reason For Visit: schizoaffective Interim History: Patient difficult to engage Since he starts loudly asking when he will be discharged soon as mortgage or loan underwriter starts asking him questions. He seemed to deny having auditory hallucinations/voices but it was difficult to tell. He said he does not get up in the morning because he is bored and he wants to go home. Patient did say that the medications make the voices go away. He says he has to go home to pay his rent which he reiterated numerous times. Patient then got more irritable and followed mortgage or loan underwriter out of the room yelling when you let me go home when you going to let me go home. He backed off and walked away down the llamas. Mental Status Exam Mental Status Exam Narrative: Pt is alert and oriented; behavior is with limited cooperation, irritable, yelling; dressed in casual attire, wearing casual cloths, adequately groomed and with adequate hygiene; mood is irritable and affect constricted; eye contact minimal or intense; Speech is normal normal rate but louder volume; normal prosody. intermittent psychomotor agitation present; thought process is disorganized; Thought content is on discharge, paying his rent, paranoid delusional worries about being persecuted by his neighbors; sometimes TC can stay pertinent to relevant topics; Denies SI/HI. denies AH;? Patients insight and judgment are impaired Diagnostics Vital Signs (24Hr): BMI result Body Mass Index 36.1 Labs Results: 03/01/22 18:29 Medications Medications Current Medications Acetaminophen (Acetaminophen 325 Mg Tablet) 650 mg PO Q6H PRN PRN Reason: Headache/Pain Mild Scale (1-3) Last Admin: 03/03/22 22:41 Dose: 650 mg Documented by: Al Hydroxide/Mg Hydroxide (Magnesium Hydrox/Alum Hydrox 30 Ml Oral.Susp) 30 ml PO Q6H PRN PRN Reason: Heartburn/Nausea Albuterol Sulfate (Albuterol Sulfate 90 Mcg 8 Gm Inhaler) 2 puff INHALE RQ4H PRN PRN Reason: Shortness Of Breath Benztropine Mesylate (Benztropine Mesylate 0.5 Mg Tablet) 0.5 mg PO BEDTIME JOE Last Admin: 03/25/22 21:43 Dose: Not Given Documented by: Clonidine HCl (Clonidine Hcl 0.1 Mg Tablet) 0.1 mg PO TID PRN; Protocol PRN Reason: hyperarousal Last Admin: 02/28/22 21:47 Dose: 0.1 mg Documented by: Clozapine (Clozapine 100 Mg Tablet) 300 mg PO BEDTIME JOE Diphenhydramine HCl (Diphenhydramine Hcl 25 Mg Tablet) 50 mg PO Q4H PRN PRN Reason: agitation Haloperidol (Haloperidol 5 Mg Tablet) 10 mg PO BID@1000,2200 JOE Last Admin: 03/25/22 21:38 Dose: 10 mg Documented by: Haloperidol (Haloperidol 5 Mg Tablet) 10 mg PO Q4H PRN PRN Reason: agitation Haloperidol Lactate (Haloperidol Lactate 5 Mg/Ml Vial) 5 mg IM QID PRN PRN Reason: if refuses PO Hydroxyzine HCl (Hydroxyzine Hcl 25 Mg Tablet) 25 mg PO Q6H PRN PRN Reason: Anxiety Lidocaine HCl (Lidocaine 4 % Cream Kit) 1 appl TOPICAL DAILY PRN; Protocol PRN Reason: prophylactiinjection site pain Magnesium Hydroxide (Milk Of Magnesia 30 Ml Oral.Susp) 30 ml PO DAILY PRN PRN Reason: Constipation Trazodone HCl (Trazodone Hcl 50 Mg Tablet) 50 mg PO BEDTIME PRN PRN Reason: Insomnia Allergies Allergies Allergy/AdvReac Type Severity Reaction Status Date / Time No Known Allergies Allergy Verified 02/19/22 03:39 [No Known Allergies*] Assessment & Plan Assessment & Plan (1) Schizophrenia, paranoid, chronic with acute exacerbation: Status: Acute Code(s): F20.0 - Paranoid schizophrenia Plan HPI: Nura is a 26 y.o. male who carries a dx of paranoid schizophrenia. Hx of , has fixed delusion of believing neighbors are talking about him. Has DMH and ACCS services through [facility]. No Catarino's order. Hx of med non-adherence upon discharge. Patient has been repeatedly coming to the emergency room asking for help with auditory hallucinations Formulation: dx Schizophrenia, paranoid type Gold Burnisher discussed case with colleagues who have worked with patient in the past and also with staff on the unit for current admission. He has a hx of multiple inpatient admissions, including 1 about a month ago with very similar presentation, refusing to take meds, asking for discharge and deemed safe to return to the community. He has been re-presenting to [facility] after being discharged with the same presentation, not dangerous, but asking for help and then refusing treatment wanting discharge. He continues to have auditory hallucinations about his neighbor.?Initially, he has not expressed any delusional concerns that his neighbor is going to hurt him, just that his neighbors talking about him and so considered discharge.?However, Patient soon expressed concerns that his neighbors are plotting to harm him and that he is prepared to harm them back if he needs to defend himself.? As patient has presented several times to the emergency room in between admissions he is demonstrating that he is struggling to function in the community.? He has an extensive history of medication noncompliance. He has chronic paranoid delusions and auditory hallucinations that his neighbors are going to hurt him which intermittently expand to thoughts about preparing to defend himself.? Will continue treatment however, given his long hx of refractory psychosis, no insight and poor adherence with medication, team agrees that patient needs a more long-term admission to stabilize to the point where he could successfully live in the community. PLAN: Section 8b Patient Civil Committed and substituted judgment for medications ordered. Medication plan:? Trial of clozapine; overlap Haldol/Depak (minimally helpful) for now; goal to see if clozapine can be effective alone INCREASEd to Clozapine 300mg at DINNER time to mitigate daytime tiredness (to help with adherence; was split dosing) CANNOT REFUSE; COURT ORDERED; GIVE HALDOL 5MG IF REFUSES ANC 03/23: 4.1 ANC weekly DISCONTINUED Divalproex ER 1000 mg PO QHS on 03/26; patient has been refusing it and since goal is to see if monotherapy with clozapine can work, will just discontinue it for now; patient does not have history of bipolar disorder or manic episodes and this medication was used with only limited success for behavioral issues. DISCONTNUE Haloperidol (was 10 mg BID;patient refuses; at this point might as well see if clozapine by itself can be effective as Haldol has only ever Seemed to be minimally helpful and it's not worth forcing an IM) Continue Benztropine Mesylate (Benztropine Mesylate 0.5 Mg Tablet)? 0.5 mg PO qHS Continue Clonidine HCl (Clonidine Hcl 0.1 Mg Tablet)? 0.1 mg PO TID PRN Reason: hyperarousal Trazodone HCl? 50 mg PO BEDTIME PRN Insomnia Hydroxyzine HCl (Hydroxyzine Hcl 25 Mg Tablet)? 25 mg PO Q6H PRN Anxiety DC Quetiapine qhs; pt does not want for day to day events (see below)... HOSPITAL COURSE 02/24: Ct treatment plan 02/25: Ct Rx plan. May need committment. Lacks insight and is non compliant with meds. 02/26: Pt adamantly does not want to increase haldol or depakote. Will start seroquel 300 mg QHS for sx of psychotic depression, has not had adequate trial on seroquel. May help with poor sleep. 02/27: Pt has been refusing all meds; AH complaints but denies any SI/HI and his demonstrate safe behaviors on the unit 02/28 retracted 3 day, remains preoccupied with auditory hallucinations of his neighbors and delusional thoughts that his neighbors are persecuting him agrees to stay for treatment; considering clozapine 03/01 Angry and demanding discharge and 3 day notice placed; difficult to engage; no insight.? Refused morning dose of Haldol.? At said he is taking clozapine before and resisted reality testing; however said will still consider 03/02 patient willingly taking clozapine 03/06 patient intermittently takes clozapine; he is disorganized in behavior and thought, intermittently yelling and accusing staff and posturing and threatening staff.? Patient struggles to understand that his rent is paid for; while talking about a specific topic, patient will intermittently respond with a disorganized irrelevant answer.? Patient has failed monotherapy with Seroquel, Palliperidone, Risperdal and Haldol.? Will continue to titrate clozapine as patient is willing to see if this can be effective.? Patient has a 3 day notice due today 03/06/2022.? Team finds that patient is unstable and not safe to return the community as he has ongoing auditory hallucinations and paranoid delusional thoughts that about his neighbors plotting to hurt him.? Will file for Civil commitment; also discussed is that patient may need long-term admission to better establish stability. 03/08 patient disorganized; refused labs making it difficult to titrate clozapine.? Will continue to trying get patient to allow labs 03/09 remains disorganized, sometimes adhering to treatment other times refusing it without any clear pattern.? Patient is not amenable to logical explanation and his engagement in tx is unpredictable making dosing with Clozapine (and depakote) difficult as it requires periodic blood work and controlled titration.? However, Will continue with attempts at clozapine since this seems to be best option for patient to become stabilized 03/10 remains disorganized; won't engage; continues to have AH 03/13 CIVIL COMMITMENT AND SUBSTITUTED JUDGMENT ORDERED 03/16 continue current tx plan 03/19 Patient has moments of insight but quickly descends back into struggles with paranoia, disorganized thinking, thinking AH are real. Patient struggles with taking medication are difficult to predict.?Today he said I feel good, why would it take medication? despite that during the same conversation he also said that he continues to hear his neighbors say mad crap And if they come after him something will happen. The Hope is that clozapine as a monotherapy will be sufficient; mortgage or loan underwriter discussed case with patient's past inpatient provider and there is no history of bipolar/manic episodes and Depakote only used for impulsivity/anger.? Thus, will lower Depakote to a 1000 mg q.h.s. With clozapine, it may be easier for patient to tolerate single dosing so will see if moving the entire dose to bedtime helps with adherence rather than being asked to take medications twice a day.? That said, sometimes patient wakes up in the morning and demands his morning medications so it is difficult to know The best way to mitigate his his anxiety around this issue. 03/26 patient has been refusing Depakote; since he does not have history of bipolar disorder manic episodes and this medication has had limited effect, will just discontinue for now and move forward with seen of clozapine can be effective on its own; will also DC Haldol Since patient refuses; at this point might as well see if clozapine by itself can be effective as Haldol has only ever Seemed to be minimally helpful. MED Trials: Seroquel Palliperidone Risperdal Haldol I spent minutes with the patient and/or on the patient floor today, greater than?50% of which was spent counseling/coordinating care. Patient educated on: diagnosis and medication risk/benefits Informed Consent: does not understand Reason for contiued inpatient stay Substantial Risk for: inability to function and rapid decompensation
[2022-03-26] MEDS: cloZAPine 100 MG TABLET 300 MG PO (15:16)
[2022-03-26 20:35] VITALS: PULSE 116; RESP 20; TEMP 37; O2SAT 95
[2022-03-26] MEDS: Benztropine Mesylate 0.5 MG TABLET PO (22:33)
--- NOTE | 2022-03-27 16:10 | P.PNPSI_ITS ---
Subjective Subjective Date of Service: 03/27/22 Reason For Visit: schizoaffective Interim History: Patient up earlier today, dressed. He approached automobile and property underwriter and said when he going to discharge me. Patient continues with the same concerns about pain his rent cannot accept any explanation otherwise. He says that he is fine and that he wants to go home. However patient also said that he does not care about medications and that he is not going to take. He says I don't need them I'm good. At 1 point he also said something about in space he has kids in a girlfriend but it was not clear what he meant by this and he did not elaborate. Currently he denies auditory hallucinations however he does appear to be internally preoccupied. Mental Status Exam Mental Status Exam Narrative: Pt is alert and oriented; behavior is with limited cooperation, irritable; dressed in casual attire, wearing casual cloths, adequately groomed and with adequate hygiene; mood is irritable and affect constricted; eye contact minimal or intense; Speech is normal rate and volume; normal prosody. intermittent psychomotor agitation present; thought process is disorganized; Thought content is on discharge, paying his rent, paranoid delusional worries about being persecuted by his neighbors; sometimes TC can stay pertinent to relevant topics; Denies SI/HI. denies AH;? Patients insight and judgment are impaired Diagnostics Vital Signs (24Hr): Vital Signs - 24 hr 03/26/22 20:35 Temperature 98.6 F Pulse Rate 116 H Respiratory Rate 20 Pulse Oximetry 95 BMI result Body Mass Index 36.1 Labs Results: 03/01/22 18:29 Medications Medications Current Medications Acetaminophen (Acetaminophen 325 Mg Tablet) 650 mg PO Q6H PRN PRN Reason: Headache/Pain Mild Scale (1-3) Last Admin: 03/03/22 22:41 Dose: 650 mg Documented by: Al Hydroxide/Mg Hydroxide (Magnesium Hydrox/Alum Hydrox 30 Ml Oral.Susp) 30 ml PO Q6H PRN PRN Reason: Heartburn/Nausea Albuterol Sulfate (Albuterol Sulfate 90 Mcg 8 Gm Inhaler) 2 puff INHALE RQ4H PRN PRN Reason: Shortness Of Breath Benztropine Mesylate (Benztropine Mesylate 0.5 Mg Tablet) 0.5 mg PO BEDTIME [facility] Last Admin: 03/26/22 22:33 Dose: 0.5 mg Documented by: Clonidine HCl (Clonidine Hcl 0.1 Mg Tablet) 0.1 mg PO TID PRN; Protocol PRN Reason: hyperarousal Last Admin: 02/28/22 21:47 Dose: 0.1 mg Documented by: Clozapine (Clozapine 100 Mg Tablet) 300 mg PO DAILY@1700 JOE Last Admin: 03/26/22 15:16 Dose: 300 mg Documented by: Diphenhydramine HCl (Diphenhydramine Hcl 25 Mg Tablet) 50 mg PO Q4H PRN PRN Reason: agitation Haloperidol (Haloperidol 5 Mg Tablet) 10 mg PO Q4H PRN PRN Reason: agitation Haloperidol Lactate (Haloperidol Lactate 5 Mg/Ml Vial) 10 mg IM DAILY PRN PRN Reason: if refuses PO Hydroxyzine HCl (Hydroxyzine Hcl 25 Mg Tablet) 25 mg PO Q6H PRN PRN Reason: Anxiety Lidocaine HCl (Lidocaine 4 % Cream Kit) 1 appl TOPICAL DAILY PRN; Protocol PRN Reason: prophylactiinjection site pain Magnesium Hydroxide (Milk Of Magnesia 30 Ml Oral.Susp) 30 ml PO DAILY PRN PRN Reason: Constipation Trazodone HCl (Trazodone Hcl 50 Mg Tablet) 50 mg PO BEDTIME PRN PRN Reason: Insomnia Allergies Allergies Allergy/AdvReac Type Severity Reaction Status Date / Time No Known Allergies Allergy Verified 02/19/22 03:39 [No Known Allergies*] Assessment & Plan Assessment & Plan (1) Schizophrenia, paranoid, chronic with acute exacerbation: Status: Acute Code(s): F20.0 - Paranoid schizophrenia Plan HPI: Nura is a 26 y.o. male who carries a dx of paranoid schizophrenia. Hx of AH, has fixed delusion of believing neighbors are talking about him. Has DMH and ACCS services through [facility]. No Catarino's order. Hx of med non-adherence upon discharge.? 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 He has a hx of multiple inpatient admissions, including 1 about a month ago with very similar presentation, refusing to take meds, asking for discharge and deemed safe to return to the community. He has been re-presenting to [facility] ED after being discharged with the same presentation, not dangerous, but asking for help and then refusing treatment wanting discharge. He continues to have auditory hallucinations about his neighbor.?Initially, he has not expressed any delusional concerns that his neighbor is going to hurt him, just that his neighbors talking about him and so considered discharge.?However, Patient soon expressed concerns that his neighbors are plotting to harm him and that he is prepared to harm them back if he needs to defend himself.? As patient has presented several times to the emergency room in between admissions he is demonstrating that he is struggling to function in the community.? He has an extensive history of medication noncompliance. He has chronic paranoid delusions and auditory hallucinations that his neighbors are going to hurt him which intermittently expand to thoughts about preparing to defend himself.? Will continue treatment however, given his long hx of refractory psychosis, no insight and poor adherence with medication, team agrees that patient needs a more long-term admission to stabilize to the point where he could successfully live in the community. PLAN: Section 8b Patient Civil Committed and substituted judgment for medications ordered. Medication plan:? Trial of clozapine; overlap Haldol/Depak (minimally helpful) for now; goal to see if clozapine can be effective alone Continue Clozapine? 300mg at DINNER time to mitigate daytime tiredness (to help with adherence; was split dosing) CANNOT REFUSE; COURT ORDERED; GIVE HALDOL 5MG IF REFUSES ANC 03/23: 4.1 ANC weekly -DISCONTINUED Divalproex ER 1000 mg PO QHS on 03/26; patient has been refusing it and since goal is to see if monotherapy with clozapine can work, will just discontinue it for now; patient does not have history of bipolar disorder or manic episodes and this medication was used with only limited success for behavioral issues. -DISCONTNUE Haloperidol (was 10 mg BID;patient refuses; at this point might as well see if clozapine by itself can be effective as Haldol has only ever Seemed to be minimally helpful and it's not worth forcing an IM) Continue Benztropine Mesylate (Benztropine Mesylate 0.5 Mg Tablet)? 0.5 mg PO qHS; but on clozapine may not need Continue Clonidine HCl (Clonidine Hcl 0.1 Mg Tablet)? 0.1 mg PO TID PRN Reason: hyperarousal Trazodone HCl? 50 mg PO BEDTIME PRN Insomnia Hydroxyzine HCl (Hydroxyzine Hcl 25 Mg Tablet)? 25 mg PO Q6H PRN Anxiety DC Quetiapine qhs; pt does not want for day to day events (see below)... HOSPITAL COURSE 02/24: Ct treatment plan 02/25: Ct Rx plan. May need committment. Lacks insight and is non compliant with meds. 02/26: Pt adamantly does not want to increase haldol or depakote. Will start seroquel 300 mg QHS for sx of psychotic depression, has not had adequate trial on seroquel. May help with poor sleep. 02/27: Pt has been refusing all meds; AH complaints but denies any SI/HI and his demonstrate safe behaviors on the unit 02/28 retracted 3 day, remains preoccupied with auditory hallucinations of his neighbors and delusional thoughts that his neighbors are persecuting him agrees to stay for treatment; considering clozapine 03/01 Angry and demanding discharge and 3 day notice placed; difficult to engage; no insight.? Refused morning dose of Haldol.? At said he is taking clozapine before and resisted reality testing; however said will still consider 03/02 patient willingly taking clozapine 03/06 patient intermittently takes clozapine; he is disorganized in behavior and thought, intermittently yelling and accusing staff and posturing and threatening staff.? Patient struggles to understand that his rent is paid for; while talking about a specific topic, patient will intermittently respond with a disorganized irrelevant answer.? Patient has failed monotherapy with Seroquel, Palliperidone, Risperdal and Haldol.? Will continue to titrate clozapine as patient is willing to see if this can be effective.? Patient has a 3 day notice due today 03/06/2022.? Team finds that patient is unstable and not safe to return the community as he has ongoing auditory hallucinations and paranoid delusional thoughts that about his neighbors plotting to hurt him.? Will file for Civil commitment; also discussed is that patient may need long-term admission to better establish stability. 03/08 patient disorganized; refused labs making it difficult to titrate clozapine.? Will continue to trying get patient to allow labs 03/09 remains disorganized, sometimes adhering to treatment other times refusing it without any clear pattern.? Patient is not amenable to logical explanation and his engagement in tx is unpredictable making dosing with Clozapine (and depakote) difficult as it requires periodic blood work and controlled titration.? However, Will continue with attempts at clozapine since this seems to be best option for patient to become stabilized 03/10 remains disorganized; won't engage; continues to have AH 03/13 CIVIL COMMITMENT AND SUBSTITUTED JUDGMENT ORDERED 03/16 continue current tx plan 03/19 Patient has moments of insight but quickly descends back into struggles with paranoia, disorganized thinking, thinking AH are real. Patient struggles with taking medication are difficult to predict.?Today he said I feel good, why would it take medication? despite that during the same conversation he also said that he continues to hear his neighbors say mad crap And if they come after him something will happen. The Hope is that clozapine as a monotherapy will be sufficient; automobile and property underwriter discussed case with patient's past inpatient provider and there is no history of bipolar/manic episodes and Depakote only used for impulsivity/anger.? Thus, will lower Depakote to a 1000 mg q.h.s. With clozapine, it may be easier for patient to tolerate single dosing so will see if moving the entire dose to bedtime helps with adherence rather than being asked to take medications twice a day.? That said, sometimes patient wakes up in the morning and demands his morning medications so it is difficult to know The best way to mitigate his his anxiety around this issue. 03/26 patient has been refusing Depakote; since he does not have history of bipolar disorder manic episodes and this medication has had limited effect, will just discontinue for now and move forward with seen of clozapine can be effective on its own; will also DC Haldol Since patient refuses; at this point might as well see if clozapine by itself can be effective as Haldol has only ever Seemed to be minimally helpful. 03/27 denies auditory hallucinations but remains without any insight and saying that he will not take medications when he goes home because he is good. MED Trials: Seroquel Palliperidone Risperdal Haldol I spent minutes with the patient and/or on the patient floor today, greater than?50% of which was spent counseling/coordinating care. Patient educated on: diagnosis and medication risk/benefits Informed Consent: does not understand Reason for contiued inpatient stay Substantial Risk for: inability to function and rapid decompensation
[2022-03-27 16:30] VITALS: RESP 20
[2022-03-27] MEDS: cloZAPine 100 MG TABLET 300 MG PO (17:47)
--- NOTE | 2022-03-28 10:44 | P.PNPSI_ITS ---
Subjective Subjective Date of Service: 03/28/22 Reason For Visit: schizoaffective Interim History: Of note, patient is up earlier in the day since Depakote and Haldol were discontinued. Patient goes in between moments of higher irritability and near agitation when learning he is not discharged and may go to [facility] moments where he is calm and explaining to proposal manager writer that he does not hearing voices anymore, that all stay way from his neighbors and that he would really like to go home and pay his rent. He says he just needs to know how much medication he is supposed to take. Patient although calm in demeanor, repeats the same things over and over and over to proposal manager writer who could only and the conversation by excusing himself Mental Status Exam Mental Status Exam Narrative: Pt is alert and oriented; behavior vacillates between being calm and cooperative, to irritable and uncooperative/badgering for discharge; dressed in casual attire, wearing casual cloths, adequately groomed and with adequate hygiene; mood vacillates between calm and irritable; affect constricted; eye contact typically minimal or intense; Speech is normal rate, sometimes loud when irritated; normal prosody; intermittent psychomotor agitation present; thought process can be goal oriented but also is disorganized; Thought content is on discharge, paying his rent; has paranoid delusional worries about being persecuted by his neighbors; sometimes TC can stay pertinent to relevant topics; Denies SI/HI. denies AH;? Patients insight and judgment are impaired Diagnostics Vital Signs (24Hr): Vital Signs - 24 hr 03/27/22 16:30 Respiratory Rate 20 BMI result Body Mass Index 36.1 Labs Results: 03/01/22 18:29 Medications Medications Current Medications Acetaminophen (Acetaminophen 325 Mg Tablet) 650 mg PO Q6H PRN PRN Reason: Headache/Pain Mild Scale (1-3) Last Admin: 03/03/22 22:41 Dose: 650 mg Documented by: Al Hydroxide/Mg Hydroxide (Magnesium Hydrox/Alum Hydrox 30 Ml Oral.Susp) 30 ml PO Q6H PRN PRN Reason: Heartburn/Nausea Albuterol Sulfate (Albuterol Sulfate 90 Mcg 8 Gm Inhaler) 2 puff INHALE RQ4H PRN PRN Reason: Shortness Of Breath Benztropine Mesylate (Benztropine Mesylate 0.5 Mg Tablet) 0.5 mg PO BEDTIME [facility] Last Admin: 03/27/22 18:31 Dose: Not Given Documented by: Clonidine HCl (Clonidine Hcl 0.1 Mg Tablet) 0.1 mg PO TID PRN; Protocol PRN Reason: hyperarousal Last Admin: 02/28/22 21:47 Dose: 0.1 mg Documented by: Clozapine (Clozapine 100 Mg Tablet) 300 mg PO DAILY@1700 JOE Last Admin: 03/27/22 17:47 Dose: 300 mg Documented by: Diphenhydramine HCl (Diphenhydramine Hcl 25 Mg Tablet) 50 mg PO Q4H PRN PRN Reason: agitation Haloperidol (Haloperidol 5 Mg Tablet) 10 mg PO Q4H PRN PRN Reason: agitation Haloperidol Lactate (Haloperidol Lactate 5 Mg/Ml Vial) 10 mg IM DAILY PRN PRN Reason: if refuses PO Hydroxyzine HCl (Hydroxyzine Hcl 25 Mg Tablet) 25 mg PO Q6H PRN PRN Reason: Anxiety Lidocaine HCl (Lidocaine 4 % Cream Kit) 1 appl TOPICAL DAILY PRN; Protocol PRN Reason: prophylactiinjection site pain Magnesium Hydroxide (Milk Of Magnesia 30 Ml Oral.Susp) 30 ml PO DAILY PRN PRN Reason: Constipation Trazodone HCl (Trazodone Hcl 50 Mg Tablet) 50 mg PO BEDTIME PRN PRN Reason: Insomnia Allergies Allergies Allergy/AdvReac Type Severity Reaction Status Date / Time No Known Allergies Allergy Verified 02/19/22 03:39 [No Known Allergies*] Assessment & Plan Assessment & Plan (1) Schizophrenia, paranoid, chronic with acute exacerbation: Status: Acute Code(s): F20.0 - Paranoid schizophrenia Plan HPI: Nura is a 26 y.o. male who carries a dx of paranoid schizophrenia. Hx of AH, has fixed delusion of believing neighbors are talking about him. Has DMH and ACCS services through [facility]. No Catarino's order. Hx of med non-adherence upon discharge.? 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 He has a hx of multiple inpatient admissions, including 1 about a month ago with very similar presentation, refusing to take meds, asking for discharge and deemed safe to return to the community. He has been re-presenting to [facility] after being discharged with the same presentation, not dangerous, but asking for help and then refusing treatment wanting discharge. He continues to have auditory hallucinations about his neighbor.?Initially, he has not expressed any delusional concerns that his neighbor is going to hurt him, just that his neighbors talking about him and so considered discharge.?However, Patient soon expressed concerns that his neighbors are plotting to harm him and that he is prepared to harm them back if he needs to defend himself.? As patient has presented several times to the emergency room in between admissions he is demonstrating that he is struggling to function in the community.? He has an extensive history of medication noncompliance. He has chronic paranoid delusions and auditory hallucinations that his neighbors are going to hurt him which intermittently expand to thoughts about preparing to defend himself.? Will continue treatment however, given his long hx of refractory psychosis, no insight and poor adherence with medication, team agrees that patient needs a more long-term admission to stabilize to the point where he could successfully live in the community. PLAN: Section 8b Patient Civil Committed and substituted judgment for medications ordered. Medication plan:? Trial of clozapine; overlap Haldol/Depak (minimally helpful) for now; goal to see if clozapine can be effective alone Continue Clozapine? 300mg at DINNER time to mitigate daytime tiredness (to help with adherence; was split dosing) CANNOT REFUSE; COURT ORDERED; GIVE HALDOL 5MG IF REFUSES ANC 03/23: 4.1 ANC weekly -DISCONTINUED Divalproex ER 1000 mg PO QHS on 03/26; patient has been refusing it and since goal is to see if monotherapy with clozapine can work, will just discontinue it for now; patient does not have history of bipolar disorder or manic episodes and this medication was used with only limited success for behavioral issues. -DISCONTNUE Haloperidol (was 10 mg BID;patient refuses; at this point might as well see if clozapine by itself can be effective as Haldol has only ever Seemed to be minimally helpful and it's not worth forcing an IM) Continue Benztropine Mesylate (Benztropine Mesylate 0.5 Mg Tablet)? 0.5 mg PO qHS; but on clozapine may not need Continue Clonidine HCl (Clonidine Hcl 0.1 Mg Tablet)? 0.1 mg PO TID PRN Reason: hyperarousal Trazodone HCl? 50 mg PO BEDTIME PRN Insomnia Hydroxyzine HCl (Hydroxyzine Hcl 25 Mg Tablet)? 25 mg PO Q6H PRN Anxiety DC Quetiapine qhs; pt does not want for day to day events (see below)... HOSPITAL COURSE 02/24: Ct treatment plan 02/25: Ct Rx plan. May need committment. Lacks insight and is non compliant with meds. 02/26: Pt adamantly does not want to increase haldol or depakote. Will start seroquel 300 mg QHS for sx of psychotic depression, has not had adequate trial on seroquel. May help with poor sleep. 02/27: Pt has been refusing all meds; AH complaints but denies any SI/HI and his demonstrate safe behaviors on the unit 02/28 retracted 3 day, remains preoccupied with auditory hallucinations of his neighbors and delusional thoughts that his neighbors are persecuting him agrees to stay for treatment; considering clozapine 03/01 Angry and demanding discharge and 3 day notice placed; difficult to engage; no insight.? Refused morning dose of Haldol.? At said he is taking clozapine before and resisted reality testing; however said will still consider 03/02 patient willingly taking clozapine 03/06 patient intermittently takes clozapine; he is disorganized in behavior and thought, intermittently yelling and accusing staff and posturing and threatening staff.? Patient struggles to understand that his rent is paid for; while talking about a specific topic, patient will intermittently respond with a disorganized irrelevant answer.? Patient has failed monotherapy with Seroquel, Palliperidone, Risperdal and Haldol.? Will continue to titrate clozapine as patient is willing to see if this can be effective.? Patient has a 3 day notice due today 03/06/2022.? Team finds that patient is unstable and not safe to return the community as he has ongoing auditory hallucinations and paranoid delusional thoughts that about his neighbors plotting to hurt him.? Will file for Civil commitment; also discussed is that patient may need long-term admission to better establish stability. 03/08 patient disorganized; refused labs making it difficult to titrate clozapine.? Will continue to trying get patient to allow labs 03/09 remains disorganized, sometimes adhering to treatment other times refusing it without any clear pattern.? Patient is not amenable to logical explanation and his engagement in tx is unpredictable making dosing with Clozapine (and depakote) difficult as it requires periodic blood work and controlled titration.? However, Will continue with attempts at clozapine since this seems to be best option for patient to become stabilized 03/10 remains disorganized; won't engage; continues to have AH 03/13 CIVIL COMMITMENT AND SUBSTITUTED JUDGMENT ORDERED 03/16 continue current tx plan 03/19 Patient has moments of insight but quickly descends back into struggles with paranoia, disorganized thinking, thinking AH are real. Patient struggles with taking medication are difficult to predict.?Today he said I feel good, why would it take medication? despite that during the same conversation he also said that he continues to hear his neighbors say mad crap And if they come after him something will happen. The Hope is that clozapine as a monotherapy will be sufficient; proposal manager writer discussed case with patient's past inpatient provider and there is no history of bipolar/manic episodes and Depakote only used for impulsivity/anger.? Thus, will lower Depakote to a 1000 mg q.h.s. With clozapine, it may be easier for patient to tolerate single dosing so will see if moving the entire dose to bedtime helps with adherence rather than being asked to take medications twice a day.? That said, sometimes patient wakes up in the morning and demands his morning medications so it is difficult to know The best way to mitigate his his anxiety around this issue. 03/26 patient has been refusing Depakote; since he does not have history of bipolar disorder manic episodes and this medication has had limited effect, will just discontinue for now and move forward with seen of clozapine can be effective on its own; will also DC Haldol Since patient refuses; at this point might as well see if clozapine by itself can be effective as Haldol has only ever Seemed to be minimally helpful. 03/27 denies auditory hallucinations but remains without any insight and saying that he will not take medications when he goes home because he is good. 03/28 Patient vacillates between being irritable and calm; sometimes he says he will take his medications when he goes home other times he says he is doing fine and does not need it. It is not clear if patient still hears auditory hallucinations or if they have resolved as his reporting is inconsistent. It remains necessary for patient to go to a long-term facility for continued medication management and to have a longer time without symptoms. MED Trials: Seroquel Palliperidone Risperdal Haldol I spent minutes with the patient and/or on the patient floor today, greater than?50% of which was spent counseling/coordinating care. Patient educated on: diagnosis Informed Consent: does not understand Reason for contiued inpatient stay Substantial Risk for: inability to function and rapid decompensation
[2022-03-28] MEDS: cloZAPine 100 MG TABLET 300 MG PO (17:27)
[2022-03-28] MEDS: Benztropine Mesylate 0.5 MG TABLET PO (21:28)
--- NOTE | 2022-03-29 10:07 | HO.PSYCHPN ---
Subjective Subjective Date of Service: 03/29/22 Reason For Visit: schizoaffective Interim History: Patient remains somewhat disorganized. Earlier in the day he told social service coordinator that he does not need medications and will not take it when he goes home. Later he told this screenplay writer that he will continue take medications when he goes home. Patient said that right now he does not have auditory hallucinations. He is a little vague on whether not he agrees that the medications are what help him. Patient shared that he would like to discharge home. He also shared about his cousin and his cousin's house, describing in detail. Mental Status Exam Mental Status Exam Narrative: Pt is alert and oriented; behavior vacillates between being calm and cooperative, to irritable and uncooperative/badgering for discharge; dressed in casual attire, wearing casual cloths, adequately groomed and with adequate hygiene; mood vacillates between calm and irritable; affect constricted; eye contact typically minimal or intense; Speech is normal rate, sometimes loud when irritated; normal prosody; intermittent psychomotor agitation present; thought process can be goal oriented but also is disorganized; Thought content is on discharge, paying his rent; has paranoid delusional worries about being persecuted by his neighbors; sometimes TC can stay pertinent to relevant topics; Denies SI/HI. denies AH;? Patients insight and judgment are impaired Diagnostics Vital Signs (24Hr): BMI result Body Mass Index 36.1 Labs Results: 03/01/22 18:29 Medications Medications Current Medications Acetaminophen (Acetaminophen 325 Mg Tablet) 650 mg PO Q6H PRN PRN Reason: Headache/Pain Mild Scale (1-3) Last Admin: 03/03/22 22:41 Dose: 650 mg Documented by: Al Hydroxide/Mg Hydroxide (Magnesium Hydrox/Alum Hydrox 30 Ml Oral.Susp) 30 ml PO Q6H PRN PRN Reason: Heartburn/Nausea Albuterol Sulfate (Albuterol Sulfate 90 Mcg 8 Gm Inhaler) 2 puff INHALE RQ4H PRN PRN Reason: Shortness Of Breath Benztropine Mesylate (Benztropine Mesylate 0.5 Mg Tablet) 0.5 mg PO BEDTIME JOE Last Admin: 03/28/22 21:28 Dose: 0.5 mg Documented by: Clonidine HCl (Clonidine Hcl 0.1 Mg Tablet) 0.1 mg PO TID PRN; Protocol PRN Reason: hyperarousal Last Admin: 02/28/22 21:47 Dose: 0.1 mg Documented by: Clozapine (Clozapine 100 Mg Tablet) 300 mg PO DAILY@1700 JOE Last Admin: 03/28/22 17:27 Dose: 300 mg Documented by: Diphenhydramine HCl (Diphenhydramine Hcl 25 Mg Tablet) 50 mg PO Q4H PRN PRN Reason: agitation Haloperidol (Haloperidol 5 Mg Tablet) 10 mg PO Q4H PRN PRN Reason: agitation Haloperidol Lactate (Haloperidol Lactate 5 Mg/Ml Vial) 10 mg IM DAILY PRN PRN Reason: if refuses PO Hydroxyzine HCl (Hydroxyzine Hcl 25 Mg Tablet) 25 mg PO Q6H PRN PRN Reason: Anxiety Lidocaine HCl (Lidocaine 4 % Cream Kit) 1 appl TOPICAL DAILY PRN; Protocol PRN Reason: prophylactiinjection site pain Magnesium Hydroxide (Milk Of Magnesia 30 Ml Oral.Susp) 30 ml PO DAILY PRN PRN Reason: Constipation Trazodone HCl (Trazodone Hcl 50 Mg Tablet) 50 mg PO BEDTIME PRN PRN Reason: Insomnia Allergies Allergies Allergy/AdvReac Type Severity Reaction Status Date / Time No Known Allergies Allergy Verified 02/19/22 03:39 [No Known Allergies*] Assessment & Plan Assessment & Plan (1) Schizophrenia, paranoid, chronic with acute exacerbation: Status: Acute Code(s): F20.0 - Paranoid schizophrenia Plan HPI: Nura is a 26 y.o. male who carries a dx of paranoid schizophrenia. Hx of , has fixed delusion of believing neighbors are talking about him. Has DMH and ACCS services through [facility]. No Catarino's order. Hx of med non-adherence upon discharge.? Patient has been repeatedly coming to the emergency room asking for help with auditory hallucinations Formulation: dx Schizophrenia, paranoid type Prepared Foods Team Leader discussed case with colleagues who have worked with patient in the past and also with staff on the unit for current admission. He has a hx of multiple inpatient admissions, including 1 about a month ago with very similar presentation, refusing to take meds, asking for discharge and deemed safe to return to the community. He has been re-presenting to [facility] after being discharged with the same presentation, not dangerous, but asking for help and then refusing treatment wanting discharge. He continues to have auditory hallucinations about his neighbor.?Initially, he has not expressed any delusional concerns that his neighbor is going to hurt him, just that his neighbors talking about him and so considered discharge.?However, Patient soon expressed concerns that his neighbors are plotting to harm him and that he is prepared to harm them back if he needs to defend himself.? As patient has presented several times to the emergency room in between admissions he is demonstrating that he is struggling to function in the community.? He has an extensive history of medication noncompliance. He has chronic paranoid delusions and auditory hallucinations that his neighbors are going to hurt him which intermittently expand to thoughts about preparing to defend himself.? Will continue treatment however, given his long hx of refractory psychosis, no insight and poor adherence with medication, team agrees that patient needs a more long-term admission to stabilize to the point where he could successfully live in the community. PLAN: Section 8b Patient Civil Committed and substituted judgment for medications ordered. Medication plan:? Trial of clozapine; overlap Haldol/Depak (minimally helpful) for now; goal to see if clozapine can be effective alone Continue Clozapine? 300mg at DINNER time to mitigate daytime tiredness (to help with adherence; was split dosing) CANNOT REFUSE; COURT ORDERED; GIVE HALDOL 5MG IF REFUSES ANC 03/23: 4.1 ANC weekly -DISCONTINUED Divalproex ER 1000 mg PO QHS on 03/26; patient has been refusing it and since goal is to see if monotherapy with clozapine can work, will just discontinue it for now; patient does not have history of bipolar disorder or manic episodes and this medication was used with only limited success for behavioral issues. -DISCONTNUE Haloperidol (was 10 mg BID;patient refuses; at this point might as well see if clozapine by itself can be effective as Haldol has only ever Seemed to be minimally helpful and it's not worth forcing an IM) Continue Benztropine Mesylate (Benztropine Mesylate 0.5 Mg Tablet)? 0.5 mg PO qHS; but on clozapine may not need Continue Clonidine HCl (Clonidine Hcl 0.1 Mg Tablet)? 0.1 mg PO TID PRN Reason: hyperarousal Trazodone HCl? 50 mg PO BEDTIME PRN Insomnia Hydroxyzine HCl (Hydroxyzine Hcl 25 Mg Tablet)? 25 mg PO Q6H PRN Anxiety DC Quetiapine qhs; pt does not want for day to day events (see below)... HOSPITAL COURSE 02/24: Ct treatment plan 02/25: Ct Rx plan. May need committment. Lacks insight and is non compliant with meds. 02/26: Pt adamantly does not want to increase haldol or depakote. Will start seroquel 300 mg QHS for sx of psychotic depression, has not had adequate trial on seroquel. May help with poor sleep. 02/27: Pt has been refusing all meds; AH complaints but denies any SI/HI and his demonstrate safe behaviors on the unit 02/28 retracted 3 day, remains preoccupied with auditory hallucinations of his neighbors and delusional thoughts that his neighbors are persecuting him agrees to stay for treatment; considering clozapine 03/01 Angry and demanding discharge and 3 day notice placed; difficult to engage; no insight.? Refused morning dose of Haldol.? At said he is taking clozapine before and resisted reality testing; however said will still consider 03/02 patient willingly taking clozapine 03/06 patient intermittently takes clozapine; he is disorganized in behavior and thought, intermittently yelling and accusing staff and posturing and threatening staff.? Patient struggles to understand that his rent is paid for; while talking about a specific topic, patient will intermittently respond with a disorganized irrelevant answer.? Patient has failed monotherapy with Seroquel, Palliperidone, Risperdal and Haldol.? Will continue to titrate clozapine as patient is willing to see if this can be effective.? Patient has a 3 day notice due today 03/06/2022.? Team finds that patient is unstable and not safe to return the community as he has ongoing auditory hallucinations and paranoid delusional thoughts that about his neighbors plotting to hurt him.? Will file for Civil commitment; also discussed is that patient may need long-term admission to better establish stability. 03/08 patient disorganized; refused labs making it difficult to titrate clozapine.? Will continue to trying get patient to allow labs 56 remains disorganized, sometimes adhering to treatment other times refusing it without any clear pattern.? Patient is not amenable to logical explanation and his engagement in tx is unpredictable making dosing with Clozapine (and depakote) difficult as it requires periodic blood work and controlled titration.? However, Will continue with attempts at clozapine since this seems to be best option for patient to become stabilized 03/10 remains disorganized; won't engage; continues to have AH 03/13 CIVIL COMMITMENT AND SUBSTITUTED JUDGMENT ORDERED 03/16 continue current tx plan 03/19 Patient has moments of insight but quickly descends back into struggles with paranoia, disorganized thinking, thinking AH are real. Patient struggles with taking medication are difficult to predict.?Today he said I feel good, why would it take medication? despite that during the same conversation he also said that he continues to hear his neighbors say mad crap And if they come after him something will happen. The Hope is that clozapine as a monotherapy will be sufficient; screenplay writer discussed case with patient's past inpatient provider and there is no history of bipolar/manic episodes and Depakote only used for impulsivity/anger.? Thus, will lower Depakote to a 1000 mg q.h.s. With clozapine, it may be easier for patient to tolerate single dosing so will see if moving the entire dose to bedtime helps with adherence rather than being asked to take medications twice a day.? That said, sometimes patient wakes up in the morning and demands his morning medications so it is difficult to know The best way to mitigate his his anxiety around this issue. 03/26 patient has been refusing Depakote; since he does not have history of bipolar disorder manic episodes and this medication has had limited effect, will just discontinue for now and move forward with seen of clozapine can be effective on its own; will also DC Haldol Since patient refuses; at this point might as well see if clozapine by itself can be effective as Haldol has only ever Seemed to be minimally helpful. 03/27 denies auditory hallucinations but remains without any insight and saying that he will not take medications when he goes home because he is good. 03/28 Patient vacillates between being irritable and calm; sometimes he says he will take his medications when he goes home other times he says he is doing fine and does not need it. It is not clear if patient still hears auditory hallucinations or if they have resolved as his reporting is inconsistent. It remains necessary for patient to go to a long-term facility for continued medication management and to have a longer time without symptoms. MED Trials: Seroquel Palliperidone Risperdal Haldol I spent minutes with the patient and/or on the patient floor today, greater than?50% of which was spent counseling/coordinating care. Reason for contiued inpatient stay Substantial Risk for: inability to function and rapid decompensation
[2022-03-29] MEDS: cloZAPine 100 MG TABLET 300 MG PO (16:16)
[2022-03-29] MEDS: cloZAPine 25 MG TABLET PO (16:16)
[2022-03-29 18:42] VITALS: RESP 18
[2022-03-30 11:29] LABS: Neut%MD 42.8 %; Neutrophils Absolute Auto 4.2 x10*3/uL (2.0-8.3); WBCANC 9.7 X10*3/uL
[2022-03-30] MEDS: cloZAPine 100 MG TABLET 300 MG PO (15:46)
[2022-03-30] MEDS: cloZAPine 25 MG TABLET 50 MG PO (15:46)
--- NOTE | 2022-03-30 16:28 | HO.PSYCHPN ---
Subjective Subjective Date of Service: 03/30/22 Reason For Visit: schizoaffective Interim History: Patient again told licensed social worker he is not going to take his medications when he goes home and that he wants discharge. Patient told process description writer that he is not sure what doses of medications to take. When asked about a VNA, patient said he has not later in the past only cause he is sleeping. Mental Status Exam Mental Status Exam Narrative: Pt is alert and oriented; behavior vacillates between being calm and cooperative, to irritable and uncooperative/badgering for discharge; dressed in casual attire, wearing casual cloths, adequately groomed and with adequate hygiene; mood vacillates between calm and irritable; affect constricted; eye contact typically minimal or intense; Speech is normal rate, sometimes loud when irritated; normal prosody; intermittent psychomotor agitation present; thought process can be goal oriented but also is disorganized; Thought content is on discharge, paying his rent; has paranoid delusional worries about being persecuted by his neighbors; sometimes TC can stay pertinent to relevant topics; Denies SI/HI. denies AH;? Patients insight and judgment are impaired Diagnostics Vital Signs (24Hr): Vital Signs - 24 hr 03/29/22 18:42 Respiratory Rate 18 BMI result Body Mass Index 36.1 Labs Results: 03/01/22 18:29 Labs: Laboratory Results - last 48 hr 03/30/22 11:20 Absolute Neuts (auto) 4.2 Medications Medications Current Medications Acetaminophen (Acetaminophen 325 Mg Tablet) 650 mg PO Q6H PRN PRN Reason: Headache/Pain Mild Scale (1-3) Last Admin: 03/03/22 22:41 Dose: 650 mg Documented by: Al Hydroxide/Mg Hydroxide (Magnesium Hydrox/Alum Hydrox 30 Ml Oral.Susp) 30 ml PO Q6H PRN PRN Reason: Heartburn/Nausea Albuterol Sulfate (Albuterol Sulfate 90 Mcg 8 Gm Inhaler) 2 puff INHALE RQ4H PRN PRN Reason: Shortness Of Breath Benztropine Mesylate (Benztropine Mesylate 0.5 Mg Tablet) 0.5 mg PO BEDTIME JOE Last Admin: 03/30/22 15:46 Dose: Not Given Documented by: Clonidine HCl (Clonidine Hcl 0.1 Mg Tablet) 0.1 mg PO TID PRN; Protocol PRN Reason: hyperarousal Last Admin: 02/28/22 21:47 Dose: 0.1 mg Documented by: Clozapine (Clozapine 100 Mg Tablet) 300 mg PO DAILY@1700 [facility] Last Admin: 03/30/22 15:46 Dose: 300 mg Documented by: Clozapine (Clozapine 25 Mg Tablet) 50 mg PO DAILY@1700 JOE Last Admin: 03/30/22 15:46 Dose: 50 mg Documented by: Diphenhydramine HCl (Diphenhydramine Hcl 25 Mg Tablet) 50 mg PO Q4H PRN PRN Reason: agitation Haloperidol (Haloperidol 5 Mg Tablet) 10 mg PO Q4H PRN PRN Reason: agitation Haloperidol Lactate (Haloperidol Lactate 5 Mg/Ml Vial) 10 mg IM DAILY PRN PRN Reason: if refuses PO Hydroxyzine HCl (Hydroxyzine Hcl 25 Mg Tablet) 25 mg PO Q6H PRN PRN Reason: Anxiety Lidocaine HCl (Lidocaine 4 % Cream Kit) 1 appl TOPICAL DAILY PRN; Protocol PRN Reason: prophylactiinjection site pain Magnesium Hydroxide (Milk Of Magnesia 30 Ml Oral.Susp) 30 ml PO DAILY PRN PRN Reason: Constipation Trazodone HCl (Trazodone Hcl 50 Mg Tablet) 50 mg PO BEDTIME PRN PRN Reason: Insomnia Allergies Allergies Allergy/AdvReac Type Severity Reaction Status Date / Time No Known Allergies Allergy Verified 02/19/22 03:39 [No Known Allergies*] Assessment & Plan Assessment & Plan (1) Schizophrenia, paranoid, chronic with acute exacerbation: Status: Acute Code(s): F20.0 - Paranoid schizophrenia Plan HPI: Nura is a 26 y.o. male who carries a dx of paranoid schizophrenia. Hx of AH, has fixed delusion of believing neighbors are talking about him. Has DMH and ACCS services through [facility]. No Catarino's order. Hx of med non-adherence upon discharge.? Patient has been repeatedly coming to the emergency room asking for help with auditory hallucinations Formulation: dx Schizophrenia, paranoid type Communication Manager discussed case with colleagues who have worked with patient in the past and also with staff on the unit for current admission. He has a hx of multiple inpatient admissions, including 1 about a month ago with very similar presentation, refusing to take meds, asking for discharge and deemed safe to return to the community. He has been re-presenting to [facility] after being discharged with the same presentation, not dangerous, but asking for help and then refusing treatment wanting discharge. He continues to have auditory hallucinations about his neighbor.?Initially, he has not expressed any delusional concerns that his neighbor is going to hurt him, just that his neighbors talking about him and so considered discharge.?However, Patient soon expressed concerns that his neighbors are plotting to harm him and that he is prepared to harm them back if he needs to defend himself.? As patient has presented several times to the emergency room in between admissions he is demonstrating that he is struggling to function in the community.? He has an extensive history of medication noncompliance. He has chronic paranoid delusions and auditory hallucinations that his neighbors are going to hurt him which intermittently expand to thoughts about preparing to defend himself.? Will continue treatment however, given his long hx of refractory psychosis, no insight and poor adherence with medication, team agrees that patient needs a more long-term admission to stabilize to the point where he could successfully live in the community. PLAN: Section 8b Patient Civil Committed and substituted judgment for medications ordered. Medication plan:? Trial of clozapine; overlap Haldol/Depak (minimally helpful) for now; goal to see if clozapine can be effective alone Increase to Clozapine? 325mg at DINNER time to mitigate daytime tiredness (to help with adherence; was split dosing) CANNOT REFUSE; COURT ORDERED; GIVE HALDOL 5MG IF REFUSES ANC 03/23: 4.1 ANC weekly -DISCONTINUED Divalproex ER 1000 mg PO QHS on 03/26; patient has been refusing it and since goal is to see if monotherapy with clozapine can work, will just discontinue it for now; patient does not have history of bipolar disorder or manic episodes and this medication was used with only limited success for behavioral issues. -DISCONTNUE Haloperidol (was 10 mg BID;patient refuses; at this point might as well see if clozapine by itself can be effective as Haldol has only ever Seemed to be minimally helpful and it's not worth forcing an IM) Continue Benztropine Mesylate (Benztropine Mesylate 0.5 Mg Tablet)? 0.5 mg PO qHS; but on clozapine may not need Continue Clonidine HCl (Clonidine Hcl 0.1 Mg Tablet)? 0.1 mg PO TID PRN Reason: hyperarousal Trazodone HCl? 50 mg PO BEDTIME PRN Insomnia Hydroxyzine HCl (Hydroxyzine Hcl 25 Mg Tablet)? 25 mg PO Q6H PRN Anxiety DC Quetiapine qhs; pt does not want for day to day events (see below)... HOSPITAL COURSE 02/24: Ct treatment plan 02/25: Ct Rx plan. May need committment. Lacks insight and is non compliant with meds. 02/26: Pt adamantly does not want to increase haldol or depakote. Will start seroquel 300 mg QHS for sx of psychotic depression, has not had adequate trial on seroquel. May help with poor sleep. 02/27: Pt has been refusing all meds; AH complaints but denies any SI/HI and his demonstrate safe behaviors on the unit 02/28 retracted 3 day, remains preoccupied with auditory hallucinations of his neighbors and delusional thoughts that his neighbors are persecuting him agrees to stay for treatment; considering clozapine 03/01 Angry and demanding discharge and 3 day notice placed; difficult to engage; no insight.? Refused morning dose of Haldol.? At said he is taking clozapine before and resisted reality testing; however said will still consider 03/02 patient willingly taking clozapine 03/06 patient intermittently takes clozapine; he is disorganized in behavior and thought, intermittently yelling and accusing staff and posturing and threatening staff.? Patient struggles to understand that his rent is paid for; while talking about a specific topic, patient will intermittently respond with a disorganized irrelevant answer.? Patient has failed monotherapy with Seroquel, Palliperidone, Risperdal and Haldol.? Will continue to titrate clozapine as patient is willing to see if this can be effective.? Patient has a 3 day notice due today 03/06/2022.? Team finds that patient is unstable and not safe to return the community as he has ongoing auditory hallucinations and paranoid delusional thoughts that about his neighbors plotting to hurt him.? Will file for Civil commitment; also discussed is that patient may need long-term admission to better establish stability. 03/08 patient disorganized; refused labs making it difficult to titrate clozapine.? Will continue to trying get patient to allow labs 03/09 remains disorganized, sometimes adhering to treatment other times refusing it without any clear pattern.? Patient is not amenable to logical explanation and his engagement in tx is unpredictable making dosing with Clozapine (and depakote) difficult as it requires periodic blood work and controlled titration.? However, Will continue with attempts at clozapine since this seems to be best option for patient to become stabilized 03/10 remains disorganized; won't engage; continues to have AH 03/13 CIVIL COMMITMENT AND SUBSTITUTED JUDGMENT ORDERED 03/16 continue current tx plan 03/19 Patient has moments of insight but quickly descends back into struggles with paranoia, disorganized thinking, thinking AH are real. Patient struggles with taking medication are difficult to predict.?Today he said I feel good, why would it take medication? despite that during the same conversation he also said that he continues to hear his neighbors say mad crap And if they come after him something will happen. The Hope is that clozapine as a monotherapy will be sufficient; process description writer discussed case with patient's past inpatient provider and there is no history of bipolar/manic episodes and Depakote only used for impulsivity/anger.? Thus, will lower Depakote to a 1000 mg q.h.s. With clozapine, it may be easier for patient to tolerate single dosing so will see if moving the entire dose to bedtime helps with adherence rather than being asked to take medications twice a day.? That said, sometimes patient wakes up in the morning and demands his morning medications so it is difficult to know The best way to mitigate his his anxiety around this issue. 03/26 patient has been refusing Depakote; since he does not have history of bipolar disorder manic episodes and this medication has had limited effect, will just discontinue for now and move forward with seen of clozapine can be effective on its own; will also DC Haldol Since patient refuses; at this point might as well see if clozapine by itself can be effective as Haldol has only ever Seemed to be minimally helpful. 03/27 denies auditory hallucinations but remains without any insight and saying that he will not take medications when he goes home because he is good. 03/28 Patient vacillates between being irritable and calm; sometimes he says he will take his medications when he goes home other times he says he is doing fine and does not need it. It is not clear if patient still hears auditory hallucinations or if they have resolved as his reporting is inconsistent. It remains necessary for patient to go to a long-term facility for continued medication management and to have a longer time without symptoms. MED Trials: Seroquel Palliperidone Risperdal Haldol I spent minutes with the patient and/or on the patient floor today, greater than?50% of which was spent counseling/coordinating care. Patient educated on: diagnosis and medication risk/benefits Informed Consent: does not understand Reason for contiued inpatient stay Substantial Risk for: inability to function
[2022-03-30 18:21] VITALS: RESP 16
[2022-03-31] MEDS: cloZAPine 100 MG TABLET 350 MG PO (15:40)
--- NOTE | 2022-03-31 17:08 | HO.PSYCHPN ---
Subjective Subjective Date of Service: 03/31/22 Reason For Visit: schizoaffective Interim History: Patient seen and discussed. He has been calm and under behavioral control. He has not exhibited any agitation. He reports he is feeling well and has no concerns today. Reports good sleep and appetite. Review of Systems Review of Systems Yes all other systems are reviewed and are negative Mental Status Exam Mental Status Exam Narrative: Pt is alert and oriented; behavior vacillates between being calm and cooperative, to irritable and uncooperative/badgering for discharge; dressed in casual attire, wearing casual cloths, adequately groomed and with adequate hygiene; mood vacillates between calm and irritable; affect constricted; eye contact typically minimal or intense; Speech is normal rate, sometimes loud when irritated; normal prosody; intermittent psychomotor agitation present; thought process can be goal oriented but also is disorganized; Thought content is on discharge, paying his rent; has paranoid delusional worries about being persecuted by his neighbors; sometimes TC can stay pertinent to relevant topics; Denies SI/HI. denies AH;? Patients insight and judgment are impaired Diagnostics Vital Signs (24Hr): Vital Signs - 24 hr 03/30/22 18:21 Respiratory Rate 16 BMI result Body Mass Index 36.1 Labs Results: 03/01/22 18:29 Labs: Laboratory Results - last 48 hr 03/30/22 11:20 Absolute Neuts (auto) 4.2 Medications Medications Current Medications Acetaminophen (Acetaminophen 325 Mg Tablet) 650 mg PO Q6H PRN PRN Reason: Headache/Pain Mild Scale (1-3) Last Admin: 03/03/22 22:41 Dose: 650 mg Documented by: Al Hydroxide/Mg Hydroxide (Magnesium Hydrox/Alum Hydrox 30 Ml Oral.Susp) 30 ml PO Q6H PRN PRN Reason: Heartburn/Nausea Albuterol Sulfate (Albuterol Sulfate 90 Mcg 8 Gm Inhaler) 2 puff INHALE RQ4H PRN PRN Reason: Shortness Of Breath Benztropine Mesylate (Benztropine Mesylate 0.5 Mg Tablet) 0.5 mg PO BEDTIME JOE Last Admin: 03/30/22 15:46 Dose: Not Given Documented by: Clonidine HCl (Clonidine Hcl 0.1 Mg Tablet) 0.1 mg PO TID PRN; Protocol PRN Reason: hyperarousal Last Admin: 02/28/22 21:47 Dose: 0.1 mg Documented by: Clozapine (Clozapine 100 Mg Tablet) 350 mg PO DAILY@1700 JOE Last Admin: 03/31/22 15:40 Dose: 350 mg Documented by: Diphenhydramine HCl (Diphenhydramine Hcl 25 Mg Tablet) 50 mg PO Q4H PRN PRN Reason: agitation Haloperidol (Haloperidol 5 Mg Tablet) 10 mg PO Q4H PRN PRN Reason: agitation Haloperidol Lactate (Haloperidol Lactate 5 Mg/Ml Vial) 10 mg IM DAILY PRN PRN Reason: if refuses PO Hydroxyzine HCl (Hydroxyzine Hcl 25 Mg Tablet) 25 mg PO Q6H PRN PRN Reason: Anxiety Lidocaine HCl (Lidocaine 4 % Cream Kit) 1 appl TOPICAL DAILY PRN; Protocol PRN Reason: prophylactiinjection site pain Magnesium Hydroxide (Milk Of Magnesia 30 Ml Oral.Susp) 30 ml PO DAILY PRN PRN Reason: Constipation Trazodone HCl (Trazodone Hcl 50 Mg Tablet) 50 mg PO BEDTIME PRN PRN Reason: Insomnia Allergies Allergies Allergy/AdvReac Type Severity Reaction Status Date / Time No Known Allergies Allergy Verified 02/19/22 03:39 [No Known Allergies*] Assessment & Plan Assessment & Plan (1) Schizophrenia, paranoid, chronic with acute exacerbation: Status: Acute Code(s): F20.0 - Paranoid schizophrenia Plan HPI: Nura is a 26 y.o. male who carries a dx of paranoid schizophrenia. Hx of AH, has fixed delusion of believing neighbors are talking about him. Has DMH and ACCS services through [facility]. No Catarino's order. Hx of med non-adherence upon discharge.? 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 He has a hx of multiple inpatient admissions, including 1 about a month ago with very similar presentation, refusing to take meds, asking for discharge and deemed safe to return to the community. He has been re-presenting to [facility] after being discharged with the same presentation, not dangerous, but asking for help and then refusing treatment wanting discharge. He continues to have auditory hallucinations about his neighbor.?Initially, he has not expressed any delusional concerns that his neighbor is going to hurt him, just that his neighbors talking about him and so considered discharge.?However, Patient soon expressed concerns that his neighbors are plotting to harm him and that he is prepared to harm them back if he needs to defend himself.? As patient has presented several times to the emergency room in between admissions he is demonstrating that he is struggling to function in the community.? He has an extensive history of medication noncompliance. He has chronic paranoid delusions and auditory hallucinations that his neighbors are going to hurt him which intermittently expand to thoughts about preparing to defend himself.? Will continue treatment however, given his long hx of refractory psychosis, no insight and poor adherence with medication, team agrees that patient needs a more long-term admission to stabilize to the point where he could successfully live in the community. PLAN: Section 8b Patient Civil Committed and substituted judgment for medications ordered. Medication plan:? Trial of clozapine; overlap Haldol/Depak (minimally helpful) for now; goal to see if clozapine can be effective alone Continue Clozapine? 300mg at DINNER time to mitigate daytime tiredness (to help with adherence; was split dosing) CANNOT REFUSE; COURT ORDERED; GIVE HALDOL 5MG IF REFUSES ANC 03/23: 4.1 ANC weekly -DISCONTINUED Divalproex ER 1000 mg PO QHS on 03/26; patient has been refusing it and since goal is to see if monotherapy with clozapine can work, will just discontinue it for now; patient does not have history of bipolar disorder or manic episodes and this medication was used with only limited success for behavioral issues. -DISCONTNUE Haloperidol (was 10 mg BID;patient refuses; at this point might as well see if clozapine by itself can be effective as Haldol has only ever Seemed to be minimally helpful and it's not worth forcing an IM) Continue Benztropine Mesylate (Benztropine Mesylate 0.5 Mg Tablet)? 0.5 mg PO qHS; but on clozapine may not need Continue Clonidine HCl (Clonidine Hcl 0.1 Mg Tablet)? 0.1 mg PO TID PRN Reason: hyperarousal Trazodone HCl? 50 mg PO BEDTIME PRN Insomnia Hydroxyzine HCl (Hydroxyzine Hcl 25 Mg Tablet)? 25 mg PO Q6H PRN Anxiety DC Quetiapine qhs; pt does not want for day to day events (see below)... HOSPITAL COURSE 02/24: Ct treatment plan 02/25: Ct Rx plan. May need committment. Lacks insight and is non compliant with meds. 02/26: Pt adamantly does not want to increase haldol or depakote. Will start seroquel 300 mg QHS for sx of psychotic depression, has not had adequate trial on seroquel. May help with poor sleep. 02/27: Pt has been refusing all meds; AH complaints but denies any SI/HI and his demonstrate safe behaviors on the unit 02/28 retracted 3 day, remains preoccupied with auditory hallucinations of his neighbors and delusional thoughts that his neighbors are persecuting him agrees to stay for treatment; considering clozapine 03/01 Angry and demanding discharge and 3 day notice placed; difficult to engage; no insight.? Refused morning dose of Haldol.? At said he is taking clozapine before and resisted reality testing; however said will still consider 03/02 patient willingly taking clozapine 03/06 patient intermittently takes clozapine; he is disorganized in behavior and thought, intermittently yelling and accusing staff and posturing and threatening staff.? Patient struggles to understand that his rent is paid for; while talking about a specific topic, patient will intermittently respond with a disorganized irrelevant answer.? Patient has failed monotherapy with Seroquel, Palliperidone, Risperdal and Haldol.? Will continue to titrate clozapine as patient is willing to see if this can be effective.? Patient has a 3 day notice due today 03/06/2022.? Team finds that patient is unstable and not safe to return the community as he has ongoing auditory hallucinations and paranoid delusional thoughts that about his neighbors plotting to hurt him.? Will file for Civil commitment; also discussed is that patient may need long-term admission to better establish stability. 03/08 patient disorganized; refused labs making it difficult to titrate clozapine.? Will continue to trying get patient to allow labs 6 remains disorganized, sometimes adhering to treatment other times refusing it without any clear pattern.? Patient is not amenable to logical explanation and his engagement in tx is unpredictable making dosing with Clozapine (and depakote) difficult as it requires periodic blood work and controlled titration.? However, Will continue with attempts at clozapine since this seems to be best option for patient to become stabilized 03/10 remains disorganized; won't engage; continues to have AH 03/13 CIVIL COMMITMENT AND SUBSTITUTED JUDGMENT ORDERED 03/16 continue current tx plan 03/19 Patient has moments of insight but quickly descends back into struggles with paranoia, disorganized thinking, thinking AH are real. Patient struggles with taking medication are difficult to predict.?Today he said I feel good, why would it take medication? despite that during the same conversation he also said that he continues to hear his neighbors say mad crap And if they come after him something will happen. The Hope is that clozapine as a monotherapy will be sufficient; editorial writer discussed case with patient's past inpatient provider and there is no history of bipolar/manic episodes and Depakote only used for impulsivity/anger.? Thus, will lower Depakote to a 1000 mg q.h.s. With clozapine, it may be easier for patient to tolerate single dosing so will see if moving the entire dose to bedtime helps with adherence rather than being asked to take medications twice a day.? That said, sometimes patient wakes up in the morning and demands his morning medications so it is difficult to know The best way to mitigate his his anxiety around this issue. 03/26 patient has been refusing Depakote; since he does not have history of bipolar disorder manic episodes and this medication has had limited effect, will just discontinue for now and move forward with seen of clozapine can be effective on its own; will also DC Haldol Since patient refuses; at this point might as well see if clozapine by itself can be effective as Haldol has only ever Seemed to be minimally helpful. 03/27 denies auditory hallucinations but remains without any insight and saying that he will not take medications when he goes home because he is good. 03/28 Patient vacillates between being irritable and calm; sometimes he says he will take his medications when he goes home other times he says he is doing fine and does not need it. It is not clear if patient still hears auditory hallucinations or if they have resolved as his reporting is inconsistent. It remains necessary for patient to go to a long-term facility for continued medication management and to have a longer time without symptoms. 03/31: Continue treatment plan. MED Trials: Seroquel Palliperidone Risperdal Haldol I spent minutes with the patient and/or on the patient floor today, greater than?50% of which was spent counseling/coordinating care. Reason for contiued inpatient stay Substantial Risk for: harm to self, harm to others, inability to function and rapid decompensation
[2022-03-31 19:36] VITALS: BP 103/70; PULSE 111
[2022-04-01 10:30] VITALS: BP 134/79; PULSE 97; RESP 18; TEMP 36.4; O2SAT 96
--- NOTE | 2022-04-01 12:11 | P.PNPSI_ITS ---
Subjective Subjective Date of Service: 04/01/22 Reason For Visit: schizoaffective Interim History: Patient seen and discussed. He has been calm and under behavioral control. He gets briefly agitated when told he is not ready for discharge and plan is being developed. He reports he is feeling well and has no concerns today. Reports good sleep and appetite. Review of Systems Review of Systems Yes all other systems are reviewed and are negative Mental Status Exam Mental Status Exam Narrative: Pt is alert and oriented; behavior vacillates between being calm and cooperative, to irritable and uncooperative/badgering for discharge; dressed in casual attire, wearing casual cloths, adequately groomed and with adequate hygiene; mood vacillates between calm and irritable; affect constricted; eye contact typically minimal or intense; Speech is normal rate, sometimes loud when irritated; normal prosody; intermittent psychomotor agitation present; thought process can be goal oriented but also is disorganized; Thought content is on di scharge, paying his rent; has paranoid delusional worries about being persecuted by his neighbors; sometimes TC can stay pertinent to relevant topics; Denies SI/HI. denies AH;? Patients insight and judgment are impaired Diagnostics Vital Signs (24Hr): Vital Signs - 24 hr 03/31/22 19:36 04/01/22 10:30 Temperature 97.6 F Pulse Rate 111 H 97 Respiratory Rate 18 Blood Pressure 103/70 134/79 Pulse Oximetry 96 BMI result Body Mass Index 36.1 Labs Results: 03/01/22 18:29 Medications Medications Current Medications Acetaminophen (Acetaminophen 325 Mg Tablet) 650 mg PO Q6H PRN PRN Reason: Headache/Pain Mild Scale (1-3) Last Admin: 03/03/22 22:41 Dose: 650 mg Documented by: Al Hydroxide/Mg Hydroxide (Magnesium Hydrox/Alum Hydrox 30 Ml Oral.Susp) 30 ml PO Q6H PRN PRN Reason: Heartburn/Nausea Albuterol Sulfate (Albuterol Sulfate 90 Mcg 8 Gm Inhaler) 2 puff INHALE RQ4H PRN PRN Reason: Shortness Of Breath Benztropine Mesylate (Benztropine Mesylate 0.5 Mg Tablet) 0.5 mg PO BEDTIME JOE Last Admin: 03/31/22 21:42 Dose: Not Given Documented by: Clonidine HCl (Clonidine Hcl 0.1 Mg Tablet) 0.1 mg PO TID PRN; Protocol PRN Reason: hyperarousal Last Admin: 02/28/22 21:47 Dose: 0.1 mg Documented by: Clozapine (Clozapine 100 Mg Tablet) 350 mg PO DAILY@1700 JOE Last Admin: 03/31/22 15:40 Dose: 350 mg Documented by: Diphenhydramine HCl (Diphenhydramine Hcl 25 Mg Tablet) 50 mg PO Q4H PRN PRN Reason: agitation Haloperidol (Haloperidol 5 Mg Tablet) 10 mg PO Q4H PRN PRN Reason: agitation Haloperidol Lactate (Haloperidol Lactate 5 Mg/Ml Vial) 10 mg IM DAILY PRN PRN Reason: if refuses PO Hydroxyzine HCl (Hydroxyzine Hcl 25 Mg Tablet) 25 mg PO Q6H PRN PRN Reason: Anxiety Lidocaine HCl (Lidocaine 4 % Cream Kit) 1 appl TOPICAL DAILY PRN; Protocol PRN Reason: prophylactiinjection site pain Magnesium Hydroxide (Milk Of Magnesia 30 Ml Oral.Susp) 30 ml PO DAILY PRN PRN Reason: Constipation Trazodone HCl (Trazodone Hcl 50 Mg Tablet) 50 mg PO BEDTIME PRN PRN Reason: Insomnia Allergies Allergies Allergy/AdvReac Type Severity Reaction Status Date / Time No Known Allergies Allergy Verified 02/19/22 03:39 [No Known Allergies*] Assessment & Plan Assessment & Plan (1) Schizophrenia, paranoid, chronic with acute exacerbation: Status: Acute Code(s): F20.0 - Paranoid schizophrenia Plan HPI: Nura is a 26 y.o. male who carries a dx of paranoid schizophrenia. Hx of , has fixed delusion of believing neighbors are talking about him. Has DMH and ACCS services through [facility]. No Catarino's order. Hx of med non-adherence upon discharge.? 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 He has a hx of multiple inpatient admissions, including 1 about a month ago with very similar presentation, refusing to take meds, asking for discharge and deemed safe to return to the community. He has been re-presenting to [facility] after being discharged with the same presentation, not dangerous, but asking for help and then refusing treatment wanting discharge. He continues to have audit ory hallucinations about his neighbor.?Initially, he has not expressed any delusional concerns that his neighbor is going to hurt him, just that his neighbors talking about him and so considered discharge.?However, Patient soon expressed concerns that his neighbors are plotting to harm him and that he is prepared to harm them back if he needs to defend himself.? As patient has presented several times to the emergency room in between admissions he is demonstrating that he is struggling to function in the community.? He has an extensive history of medication noncompliance. He has chronic paranoid delusions and auditory hallucinations that his neighbors are going to hurt him which intermittently expand to thoughts about preparing to defend himself.? Will continue treatment however, given his long hx of refractory psychosis, no insight and poor adherence with medication, team agrees that patient needs a more long-term admission to stabilize to the point where he could successfully live in the community. PLAN: Section 8b Patient Civil Committed and substituted judgment for medications ordered. Medication plan:? Trial of clozapine; overlap Haldol/Depak (minimally helpful) for now; goal to see if clozapine can be effective alone Continue Clozapine? 300mg at DINNER time to mitigate daytime tiredness (to help with adherence; was split dosing) CANNOT REFUSE; COURT ORDERED; GIVE HALDOL 5MG IF REFUSES ANC 03/23: 4.1 ANC weekly -DISCONTINUED Divalproex ER 1000 mg PO QHS on 03/26; patient has been refusing it and since goal is to see if monotherapy with clozapine can work, will just dis continue it for now; patient does not have history of bipolar disorder or manic episodes and this medication was used with only limited success for behavioral issues. -DISCONTNUE Haloperidol (was 10 mg BID;patient refuses; at this point might as well see if clozapine by itself can be effective as Haldol has only ever Seemed to be minimally helpful and it's not worth forcing an IM) Continue Benztropine Mesylate (Benztropine Mesylate 0.5 Mg Tablet)? 0.5 mg PO qHS; but on clozapine may not need Continue Clonidine HCl (Clonidine Hcl 0.1 Mg Tablet)? 0.1 mg PO TID PRN Reason: hyperarousal Trazodone HCl? 50 mg PO BEDTIME PRN Insomnia Hydroxyzine HCl (Hydroxyzine Hcl 25 Mg Tablet)? 25 mg PO Q6H PRN Anxiety DC Quetiapine qhs; pt does not want for day to day events (see below)... HOSPITAL COURSE 02/24: Ct treatment plan 02/25: Ct Rx plan. May need committment. Lacks insight and is non compliant with meds. 02/26: Pt adamantly does not want to increase haldol or depakote. Will start seroquel 300 mg QHS for sx of psychotic depression, has not had adequate trial on seroquel. May help with poor sleep. 02/27: Pt has been refusing all meds; AH complaints but denies any SI/HI and his demonstrate safe behaviors on the unit 02/28 retracted 3 day, remains preoccupied with auditory hallucinations of his neighbors and delusional thoughts that his neighbors are persecuting him agrees to stay for treatment; considering clozapine 03/01 Angry and demanding discharge and 3 day notice placed; difficult to engage; no insight.? Refused morning dose of Haldol.? At said he is taking clozapine before and resisted reality testing; however said will still consider 03/02 patient willingly taking clozapine 03/06 patient intermittently takes clozapine; he is disorganized in behavior and thought, intermittently yelling and accusing staff and posturing and threatening staff.? Patient struggles to understand that his rent is paid for; while talking about a specific topic, patient will intermittently respond with a disorganized irrelevant answer.? Patient has failed monotherapy with Seroquel, Palliperidone, Risperdal and Haldol.? Will continue to titrate clozapine as patient is willing to see if this can be effective.? Patient has a 3 day notice due today 03/06/2022.? Team finds that patient is unstable and not safe to return the community as he has ongoing auditory hallucinations and paranoid delusional thoughts that about his neighbors plotting to hurt him.? Will file for Civil commitment; also discussed is that patient may need long-term admission to better establish stability. 03/08 patient disorganized; refused labs making it difficult to titrate clozapine.? Will continue to trying get patient to allow labs 03/09 remains disorganized, sometimes adhering to treatment other times refusing it without any clear pattern.? Patient is not amenable to logical explanation and his engagement in tx is unpredictable making dosing with Clozapine (and depakote) difficult as it requires periodic blood work and controlled titration.? However, Will continue with attempts at clozapine since this seems to be best option for patient to become stabilized 03/10 remains disorganized; won't engage; continues to have AH 03/13 CIVIL COMMITMENT AND SUBSTITUTED JUDGMENT ORDERED 03/16 continue current tx plan 03/19 Patient has moments of insight but quickly descends back into struggles with paranoia, disorganized thinking, thinking AH are real. Patient struggles with taking medication are difficult to predict.?Today he said I feel good, why would it take medication? despite that during the same conversation he also said that he continues to hear his neighbors say mad crap And if they come after him something will happen. The Hope is that clozapine as a monotherapy will be sufficient; appeals writer discussed case with patient's past inpatient provider and there is no history of bipolar/manic episodes and Depakote only used for impulsivity/anger.? Thus, will lower Depakote to a 1000 mg q.h.s. With clozapine, it may be easier for patient to tolerate single dosing so will see if moving the entire dose to bedtime helps with adherence rather than being asked t o take medications twice a day.? That said, sometimes patient wakes up in the morning and demands his morning medications so it is difficult to know The best way to mitigate his his anxiety around this issue. 03/26 patient has been refusing Depakote; since he does not have history of bipolar disorder manic episodes and this medication has had limited effect, will just discontinue for now and move forward with seen of clozapine can be effective on its own; will also DC Haldol Since patient refuses; at this point might as well see if clozapine by itself can be effective as Haldol has only ever Seemed to be minimally helpful. 03/27 denies auditory hallucinations but remains without any insight and saying that he will not take medications when he goes home because he is good. 03/28 Patient vacillates between being irritable and calm; sometimes he says he will take his medications when he goes home other times he says he is doing fine and does not need it. It is not clear if patient still hears auditory hallucinations or if they have resolved as his reporting is inconsistent. It remains necessary for patient to go to a long-term facility for continued medication management and to have a longer time without symptoms. 03/31: Continue treatment plan. 04/01: Continue treatment plan. MED Trials: Seroquel Palliperidone Risperdal Haldol I spent minutes with the patient and/or on the patient floor today, greater than?50% of which was spent counseling/coordinating care. Reason for contiued inpatient stay Substantial Risk for: harm to others and rapid decompensation
[2022-04-01] MEDS: cloZAPine 100 MG TABLET 350 MG PO (16:11)
[2022-04-01 19:21] VITALS: RESP 18
[2022-04-02 10:55] VITALS: PULSE 97; RESP 18; TEMP 37; O2SAT 96
--- NOTE | 2022-04-02 13:45 | HO.PSYCHPN ---
Subjective Subjective Date of Service: 04/02/22 Reason For Visit: schizoaffective Interim History: Patient seen and discussed. He has been calm and under behavioral control. He reports he is feeling well and has no concerns today. Reports good sleep and appetite. Mostly isolating in his room. No SI. No overt delusions or paranoia elicited. Review of Systems Review of Systems Yes all other systems are reviewed and are negative Mental Status Exam Mental Status Exam Narrative: Pt is alert and oriented; behavior vacillates between being calm and cooperative, to irritable and uncooperative/badgering for discharge; dressed in hospital cloths, adequately groomed and with adequate hygiene; mood vacillates between calm and irritable; affect constricted; eye contact typically minimal or intense; Speech is normal rate, sometimes loud when irritated; normal prosody; intermittent psychomotor agitation present; thought process can be goal oriented but also is disorganized; Thought content is on discharge, paying his rent; has paranoid delusional worries about being persecuted by his neighbors; sometimes TC can stay pertinent to relevant topics; Denies SI/HI. denies AH;? Patients insight and judgment are impaired Diagnostics Vital Signs (24Hr): Vital Signs - 24 hr 04/01/22 19:21 04/02/22 10:55 Temperature 98.6 F Pulse Rate 97 Respiratory Rate 18 18 Pulse Oximetry 96 BMI result Body Mass Index 36.1 Labs Results: 03/01/22 18:29 Medications Medications Current Medications Acetaminophen (Acetaminophen 325 Mg Tablet) 650 mg PO Q6H PRN PRN Reason: Headache/Pain Mild Scale (1-3) Last Admin: 03/03/22 22:41 Dose: 650 mg Documented by: Al Hydroxide/Mg Hydroxide (Magnesium Hydrox/Alum Hydrox 30 Ml Oral.Susp) 30 ml PO Q6H PRN PRN Reason: Heartburn/Nausea Albuterol Sulfate (Albuterol Sulfate 90 Mcg 8 Gm Inhaler) 2 puff INHALE RQ4H PRN PRN Reason: Shortness Of Breath Benztropine Mesylate (Benztropine Mesylate 0.5 Mg Tablet) 0.5 mg PO BEDTIME JOE Last Admin: 04/01/22 19:08 Dose: Not Given Documented by: Clonidine HCl (Clonidine Hcl 0.1 Mg Tablet) 0.1 mg PO TID PRN; Protocol PRN Reason: hyperarousal Last Admin: 02/28/22 21:47 Dose: 0.1 mg Documented by: Clozapine (Clozapine 100 Mg Tablet) 350 mg PO DAILY@1700 JOE Last Admin: 04/01/22 16:11 Dose: 350 mg Documented by: Diphenhydramine HCl (Diphenhydramine Hcl 25 Mg Tablet) 50 mg PO Q4H PRN PRN Reason: agitation Haloperidol (Haloperidol 5 Mg Tablet) 10 mg PO Q4H PRN PRN Reason: agitation Haloperidol Lactate (Haloperidol Lactate 5 Mg/Ml Vial) 10 mg IM DAILY PRN PRN Reason: if refuses PO Hydroxyzine HCl (Hydroxyzine Hcl 25 Mg Tablet) 25 mg PO Q6H PRN PRN Reason: Anxiety Lidocaine HCl (Lidocaine 4 % Cream Kit) 1 appl TOPICAL DAILY PRN; Protocol PRN Reason: prophylactiinjection site pain Magnesium Hydroxide (Milk Of Magnesia 30 Ml Oral.Susp) 30 ml PO DAILY PRN PRN Reason: Constipation Trazodone HCl (Trazodone Hcl 50 Mg Tablet) 50 mg PO BEDTIME PRN PRN Reason: Insomnia Allergies Allergies Allergy/AdvReac Type Severity Reaction Status Date / Time No Known Allergies Allergy Verified 02/19/22 03:39 [No Known Allergies*] Assessment & Plan Assessment & Plan (1) Schizophrenia, paranoid, chronic with acute exacerbation: Status: Acute Code(s): F20.0 - Paranoid schizophrenia Plan HPI: Nura is a 26 y.o. male who carries a dx of paranoid schizophrenia. Hx of AH, has fixed delusion of believing neighbors are talking about him. Has DMH and ACCS services through [facility]. No Catarino's order. Hx of med non-adherence upon discharge.? Patient has been repeatedly coming to the emergency room asking for help with auditory hallucinations Formulation: dx Schizophrenia, paranoid type Vp [employer] discussed case with colleagues who have worked with patient in the past and also with staff on the unit for current admission. He has a hx of multiple inpatient admissions, including 1 about a month ago with very similar presentation, refusing to take meds, asking for discharge and deemed safe to return to the community. He has been re-presenting to [facility] after being discharged with the same presentation, not dangerous, but asking for help and then refusing treatment wanting discharge. He continues to have auditory hallucinations about his neighbor.?Initially, he has not expressed any delusional concerns that his neighbor is going to hurt him, just that his neighbors talking about him and so considered discharge.?However, Patient soon expressed concerns that his neighbors are plotting to harm him and that he is prepared to harm them back if he needs to defend himself.? As patient has presented several times to the emergency room in between admissions he is demonstrating that he is struggling to function in the community.? He has an extensive history of medication noncompliance. He has chronic paranoid delusions and auditory hallucinations that his neighbors are going to hurt him which intermittently expand to thoughts about preparing to defend himself.? Will continue treatment however, given his long hx of refractory psychosis, no insight and poor adherence with medication, team agrees that patient needs a more long-term admission to stabilize to the point where he could successfully live in the community. PLAN: Section 8b Patient Civil Committed and substituted judgment for medications ordered. Medication plan:? Trial of clozapine; overlap Haldol/Depak (minimally helpful) for now; goal to see if clozapine can be effective alone Continue Clozapine? 300mg at DINNER time to mitigate daytime tiredness (to help with adherence; was split dosing) CANNOT REFUSE; COURT ORDERED; GIVE HALDOL 5MG IF REFUSES ANC 03/23: 4.1 ANC weekly -DISCONTINUED Divalproex ER 1000 mg PO QHS on 03/26; patient has been refusing it and since goal is to see if monotherapy with clozapine can work, will just discontinue it for now; patient does not have history of bipolar disorder or manic episodes and this medication was used with only limited success for behavioral issues. -DISCONTNUE Haloperidol (was 10 mg BID;patient refuses; at this point might as well see if clozapine by itself can be effective as Haldol has only ever Seemed to be minimally helpful and it's not worth forcing an IM) Continue Benztropine Mesylate (Benztropine Mesylate 0.5 Mg Tablet)? 0.5 mg PO qHS; but on clozapine may not need Continue Clonidine HCl (Clonidine Hcl 0.1 Mg Tablet)? 0.1 mg PO TID PRN Reason: hyperarousal Trazodone HCl? 50 mg PO BEDTIME PRN Insomnia Hydroxyzine HCl (Hydroxyzine Hcl 25 Mg Tablet)? 25 mg PO Q6H PRN Anxiety DC Quetiapine qhs; pt does not want for day to day events (see below)... HOSPITAL COURSE 02/24: Ct treatment plan 02/25: Ct Rx plan. May need committment. Lacks insight and is non compliant with meds. 02/26: Pt adamantly does not want to increase haldol or depakote. Will start seroquel 300 mg QHS for sx of psychotic depression, has not had adequate trial on seroquel. May help with poor sleep. 02/27: Pt has been refusing all meds; AH complaints but denies any SI/HI and his demonstrate safe behaviors on the unit 02/28 retracted 3 day, remains preoccupied with auditory hallucinations of his neighbors and delusional thoughts that his neighbors are persecuting him agrees to stay for treatment; considering clozapine 03/01 Angry and demanding discharge and 3 day notice placed; difficult to engage; no insight.? Refused morning dose of Haldol.? At said he is taking clozapine before and resisted reality testing; however said will still consider 03/02 patient willingly taking clozapine 03/06 patient intermittently takes clozapine; he is disorganized in behavior and thought, intermittently yelling and accusing staff and posturing and threatening staff.? Patient struggles to understand that his rent is paid for; while talking about a specific topic, patient will intermittently respond with a disorganized irrelevant answer.? Patient has failed monotherapy with Seroquel, Palliperidone, Risperdal and Haldol.? Will continue to titrate clozapine as patient is willing to see if this can be effective.? Patient has a 3 day notice due today 03/06/2022.? Team finds that patient is unstable and not safe to return the community as he has ongoing auditory hallucinations and paranoid delusional thoughts that about his neighbors plotting to hurt him.? Will file for Civil commitment; also discussed is that patient may need long-term admission to better establish stability. 03/08 patient disorganized; refused labs making it difficult to titrate clozapine.? Will continue to trying get patient to allow labs 5/6 remains disorganized, sometimes adhering to treatment other times refusing it without any clear pattern.? Patient is not amenable to logical explanation and his engagement in tx is unpredictable making dosing with Clozapine (and depakote) difficult as it requires periodic blood work and controlled titration.? However, Will continue with attempts at clozapine since this seems to be best option for patient to become stabilized 03/10 remains disorganized; won't engage; continues to have AH 03/13 CIVIL COMMITMENT AND SUBSTITUTED JUDGMENT ORDERED 03/16 continue current tx plan 03/19 Patient has moments of insight but quickly descends back into struggles with paranoia, disorganized thinking, thinking AH are real. Patient struggles with taking medication are difficult to predict.?Today he said I feel good, why would it take medication? despite that during the same conversation he also said that he continues to hear his neighbors say mad crap And if they come after him something will happen. The Hope is that clozapine as a monotherapy will be sufficient; real estate underwriter discussed case with patient's past inpatient provider and there is no history of bipolar/manic episodes and Depakote only used for impulsivity/anger.? Thus, will lower Depakote to a 1000 mg q.h.s. With clozapine, it may be easier for patient to tolerate single dosing so will see if moving the entire dose to bedtime helps with adherence rather than being asked to take medications twice a day.? That said, sometimes patient wakes up in the morning and demands his morning medications so it is difficult to know The best way to mitigate his his anxiety around this issue. 03/26 patient has been refusing Depakote; since he does not have history of bipolar disorder manic episodes and this medication has had limited effect, will just discontinue for now and move forward with seen of clozapine can be effective on its own; will also DC Haldol Since patient refuses; at this point might as well see if clozapine by itself can be effective as Haldol has only ever Seemed to be minimally helpful. 03/27 denies auditory hallucinations but remains without any insight and saying that he will not take medications when he goes home because he is good. 03/28 Patient vacillates between being irritable and calm; sometimes he says he will take his medications when he goes home other times he says he is doing fine and does not need it. It is not clear if patient still hears auditory hallucinations or if they have resolved as his reporting is inconsistent. It remains necessary for patient to go to a long-term facility for continued medication management and to have a longer time without symptoms. 03/31: Continue treatment plan. 04/01: Continue treatment plan. 04/02 Continue treatment plan. MED Trials: Seroquel Palliperidone Risperdal Haldol I spent minutes with the patient and/or on the patient floor today, greater than?50% of which was spent counseling/coordinating care. Reason for contiued inpatient stay Substantial Risk for: harm to others, inability to function and rapid decompensation
[2022-04-02] MEDS: cloZAPine 100 MG TABLET 350 MG PO (15:50)
[2022-04-02 18:51] VITALS: RESP 18
--- NOTE | 2022-04-03 10:48 | P.PNPSI_ITS ---
Subjective Subjective Date of Service: 04/03/22 Reason For Visit: schizoaffective Interim History: pt shaven; says he's good' and denies AVH. He shows instructional writer that his rent was paid and pt is relieved; however, he says next months rent will soon come due and he is worried about this. Pt reluctantly accepts that team believes he needs to stay until he's been stable for longer and that aftercare can be clearly set up Mental Status Exam Mental Status Exam Narrative: Pt is alert and oriented; behavior vacillates between being calm and cooperative, to irritable and uncooperative/badgering for discharge; dressed in casual attire, wearing casual cloths, adequately groomed and with adequate hygiene; mood vacillates between calm and irritable; affect constricted; eye contact typically minimal or intense; Speech is normal rate, sometimes loud when irritated; normal prosody; intermittent psychomotor agitation present; thought process can be goal oriented but also is disorganized; Thought content is on discharge, paying his rent; has paranoid delusional worries about being persecuted by his neighbors; sometimes TC can stay pertinent to relevant topics; Denies SI/HI. denies AH;? Patients insight and judgment are impaired Diagnostics Vital Signs (24Hr): Vital Signs - 24 hr 04/02/22 10:55 04/02/22 18:51 Temperature 98.6 F Pulse Rate 97 Respiratory Rate 18 18 Pulse Oximetry 96 BMI result Body Mass Index 36.1 Labs Results: 03/01/22 18:29 Medications Medications Current Medications Acetaminophen (Acetaminophen 325 Mg Tablet) 650 mg PO Q6H PRN PRN Reason: Headache/Pain Mild Scale (1-3) Last Admin: 03/03/22 22:41 Dose: 650 mg Documented by: Al Hydroxide/Mg Hydroxide (Magnesium Hydrox/Alum Hydrox 30 Ml Oral.Susp) 30 ml PO Q6H PRN PRN Reason: Heartburn/Nausea Albuterol Sulfate (Albuterol Sulfate 90 Mcg 8 Gm Inhaler) 2 puff INHALE RQ4H PRN PRN Reason: Shortness Of Breath Benztropine Mesylate (Benztropine Mesylate 0.5 Mg Tablet) 0.5 mg PO BEDTIME JOE Last Admin: 04/02/22 15:50 Dose: Not Given Documented by: Clonidine HCl (Clonidine Hcl 0.1 Mg Tablet) 0.1 mg PO TID PRN; Protocol PRN Reason: hyperarousal Last Admin: 02/28/22 21:47 Dose: 0.1 mg Documented by: Clozapine (Clozapine 100 Mg Tablet) 350 mg PO DAILY@1700 JOE Last Admin: 04/02/22 15:50 Dose: 350 mg Documented by: Diphenhydramine HCl (Diphenhydramine Hcl 25 Mg Tablet) 50 mg PO Q4H PRN PRN Reason: agitation Haloperidol (Haloperidol 5 Mg Tablet) 10 mg PO Q4H PRN PRN Reason: agitation Haloperidol Lactate (Haloperidol Lactate 5 Mg/Ml Vial) 10 mg IM DAILY PRN PRN Reason: if refuses PO Hydroxyzine HCl (Hydroxyzine Hcl 25 Mg Tablet) 25 mg PO Q6H PRN PRN Reason: Anxiety Lidocaine HCl (Lidocaine 4 % Cream Kit) 1 appl TOPICAL DAILY PRN; Protocol PRN Reason: prophylactiinjection site pain Magnesium Hydroxide (Milk Of Magnesia 30 Ml Oral.Susp) 30 ml PO DAILY PRN PRN Reason: Constipation Trazodone HCl (Trazodone Hcl 50 Mg Tablet) 50 mg PO BEDTIME PRN PRN Reason: Insomnia Allergies Allergies Allergy/AdvReac Type Severity Reaction Status Date / Time No Known Allergies Allergy Verified 02/19/22 03:39 [No Known Allergies*] Assessment & Plan Assessment & Plan (1) Schizophrenia, paranoid, chronic with acute exacerbation: Status: Acute Code(s): F20.0 - Paranoid schizophrenia Plan HPI: Nura is a 26 y.o. male who carries a dx of paranoid schizophrenia. Hx of , has fixed delusion of believing neighbors are talking about him. Has DMH and ACCS services through [facility]. No Catarino's order. Hx of med non-adherence upon discharge.? Patient has been repeatedly coming to the emergency room asking for help with auditory hallucinations Formulation: dx Schizophrenia, paranoid type [employer] discussed case with colleagues who have worked with patient in the past and also with staff on the unit for current admission. He has a hx of multiple inpatient admissions, including 1 about a month ago with very similar presentation, refusing to take meds, asking for discharge and deemed safe to return to the community. He has been re-presenting to [facility] after being discharged with the same presentation, not dangerous, but asking for help and then refusing treatment wanting discharge. He continues to have auditory hallucinations about his neighbor.?Initially, he has not expressed any delusional concerns that his neighbor is going to hurt him, just that his neighbors talking about him and so considered discharge.?However, Patient soon expressed concerns that his neighbors are plotting to harm him and that he is prepared to harm them back if he needs to defend himself.? As patient has presented several times to the emergency room in between admissions he is demonstrating that he is struggling to function in the community.? He has an extensive history of medication noncompliance. He has chronic paranoid delusions and auditory hallucinations that his neighbors are going to hurt him which intermittently expand to thoughts about preparing to defend himself.? Will con tinue treatment however, given his long hx of refractory psychosis, no insight and poor adherence with medication, team agrees that patient needs a more long- term admission to stabilize to the point where he could successfully live in the community. PLAN: Section 8b Patient Civil Committed and substituted judgment for medications ordered. Medication plan:? Trial of clozapine; overlap Haldol/Depak (minimally helpful) for now; goal to see if clozapine can be effective alone Increase to Clozapine? 325mg at DINNER time to mitigate daytime tiredness (to help with adherence; was split dosing) CANNOT REFUSE; COURT ORDERED; GIVE HALDOL 5MG IF REFUSES ANC 03/23: 4.1 ANC weekly -DISCONTINUED Divalproex ER 1000 mg PO QHS on 03/26; patient has been refusing it and since goal is to see if monotherapy with clozapine can work, will just discontinue it for now; patient does not have history of bipolar disorder or manic episodes and this medication was used with only limited success for behavioral issues. -DISCONTNUE Haloperidol (was 10 mg BID;patient refuses; at this point might as well see if clozapine by itself can be effective as Haldol has only ever Seemed to be minimally helpful and it's not worth forcing an IM) Continue Benztropine Mesylate (Benztropine Mesylate 0.5 Mg Tablet)? 0.5 mg PO qHS; but on clozapine may not need Continue Clonidine HCl (Clonidine Hcl 0.1 Mg Tablet)? 0.1 mg PO TID PRN Reason: hyperarousal Trazodone HCl? 50 mg PO BEDTIME PRN Insomnia Hydroxyzine HCl (Hydroxyzine Hcl 25 Mg Tablet)? 25 mg PO Q6H PRN Anxiety DC Quetiapine qhs; pt does not want for day to day events (see below)... HOSPITAL COURSE 02/24: Ct treatment plan 02/25: Ct Rx plan. May need committment. Lacks insight and is non compliant with meds. 02/26: Pt adamantly does not want to increase haldol or depakote. Will start seroquel 300 mg QHS for sx of psychotic depression, has not had adequate trial on seroquel. May help with poor sleep. 02/27: Pt has been refusing all meds; AH complaints but denies any SI/HI and his demonstrate safe behaviors on the unit 02/28 retracted 3 day, remains preoccupied with auditory hallucinations of his neighbors and delusional thoughts that his neighbors are persecuting him agrees to stay for treatment; considering clozapine 03/01 Angry and demanding discharge and 3 day notice placed; difficult to engage; no insight.? Refused morning dose of Haldol.? At said he is taking clozapine before and resisted reality testing; however said will still consider 03/02 patient willingly taking clozapine 03/06 patient intermittently takes clozapine; he is disorganized in behavior and thought, intermittently yelling and accusing staff and posturing and threatening staff.? Patient struggles to understand that his rent is paid for; while talking about a specific topic, patient will intermittently respond with a disorganized irrelevant answer.? Patient has failed monotherapy with Seroquel, Palliperidone, Risperdal and Haldol.? Will continue to titrate clozapine as patient is willing to see if this can be effective.? Patient has a 3 day notice due today 03/06/2022.? Team finds that patient is unstable and not safe to return the community as he has ongoing auditory hallucinations and paranoid delusional thoughts that about his neighbors plotting to hurt him.? Will file for Civil commitment; also discussed is that patient may need long-term admission to better establish stability. 03/08 patient disorganized; refused labs making it difficult to titrate clozapine.? Will continue to trying get patient to allow labs 03/09 remains disorganized, sometimes adhering to treatment other times refusing it without any clear pattern.? Patient is not amenable to logical explanation and his engagement in tx is unpredictable making dosing with Clozapine (and depakote) difficult as it requires periodic blood work and controlled titration.? However, Will continue with attempts at clozapine since this seems to be best option for patient to become stabilized 03/10 remains disorganized; won't engage; continues to have AH 03/13 CIVIL COMMITMENT AND SUBSTITUTED JUDGMENT ORDERED 03/16 continue current tx plan 03/19 Patient has moments of insight but quickly descends back into struggles with paranoia, disorganized thinking, thinking AH are real. Patient struggles with taking medication are difficult to predict.?Today he said I feel good, why would it take medication? despite that during the same conversation he also said that he continues to hear his neighbors say mad crap And if they come after him something will happen. The Hope is that clozapine as a monotherapy will be sufficient; instructional writer discussed case with patient's past inpatient provider and there is no history of bipolar/manic episodes and Depakote only used for impulsivity/anger.? Thus, will lower Depakote to a 1000 mg q.h.s. With clozapine, it may be easier for patient to tolerate single dosing so will see if moving the entire dose to bedtime helps with adherence rather than being asked to take medications twice a day.? That said, sometimes patient wakes up in the morning and demands his morning medications so it is difficult to know The best way to mitigate his his anxiety around this issue. 03/26 patient has been refusing Depakote; since he does not have history of bipolar disorder manic episodes and this medication has had limited effect, will just discontinue for now and move forward with seen of clozapine can be effective on its own; will also DC Haldol Since patient refuses; at this point might as well see if clozapine by itself can be effective as Haldol has only ever Seemed to be minimally helpful. 03/27 denies auditory hallucinations but remains without any insight and saying that he will not take medications when he goes home because he is good. 03/28 Patient vacillates between being irritable and calm; sometimes he says he will take his medications when he goes home other times he says he is doing fine and does not need it. It is not clear if patient still hears auditory hallucinations or if they have resolved as his reporting is inconsistent. It remains necessary for patient to go to a long-term facility for continued medication management and to have a longer time without symptoms. MED Trials: Seroquel Palliperidone Risperdal Haldol I spent minutes with the patient and/or on the patient floor today, greater than?50% of which was spent counseling/coordinating care. Patient educated on: therapeutic strategies Informed Consent: further education needed Reason for contiued inpatient stay Substantial Risk for: inability to function and rapid decompensation
[2022-04-03] MEDS: cloZAPine 100 MG TABLET 350 MG PO (17:09)
[2022-04-03] MEDS: Benztropine Mesylate 0.5 MG TABLET PO (21:00)
[2022-04-03] MEDS: HaloperidoL 5 MG TABLET 10 MG PO (22:17)
[2022-04-03] MEDS: hydrOXYzine HCL 25 MG TABLET PO (22:18)
--- NOTE | 2022-04-04 10:51 | P.PNPSI_ITS ---
Subjective Subjective Date of Service: 04/04/22 Reason For Visit: schizoaffective Interim History: Overall more calm. Has been doing well even though Haldol and Depakote were discontinued. Denies AVH. Still asked for discharge throughout the day but is more able to be redirected with explanation. Mental Status Exam Mental Status Exam Narrative: Pt is alert and oriented; behavior, more calm and cooperative; intermittently irritable and badgering about discharge, but less so; dressed in casual attire, wearing casual cloths, adequately groomed and with adequate hygiene; mood more calm; affect constricted; eye contact adequate, appropriate; Speech is normal rate, mostly normal volume (sometimes loud when irritated); normal prosody; intermittent psychomotor agitation present but less so; thought process mostly goal oriented; Thought content is on discharge; seems less perseverative on paranoid delusional worries about being persecuted by his neighbors; Denies SI/HI. denies AH;? Patients insight and judgment are impaired but have improved. Diagnostics Vital Signs (24Hr): BMI result Body Mass Index 36.1 Labs Results: 03/01/22 18:29 Medications Medications Current Medications Acetaminophen (Acetaminophen 325 Mg Tablet) 650 mg PO Q6H PRN PRN Reason: Headache/Pain Mild Scale (1-3) Last Admin: 03/03/22 22:41 Dose: 650 mg Documented by: Al Hydroxide/Mg Hydroxide (Magnesium Hydrox/Alum Hydrox 30 Ml Oral.Susp) 30 ml PO Q6H PRN PRN Reason: Heartburn/Nausea Albuterol Sulfate (Albuterol Sulfate 90 Mcg 8 Gm Inhaler) 2 puff INHALE RQ4H PRN PRN Reason: Shortness Of Breath Benztropine Mesylate (Benztropine Mesylate 0.5 Mg Tablet) 0.5 mg PO BEDTIME JOE Last Admin: 04/03/22 21:00 Dose: 0.5 mg Documented by: Clonidine HCl (Clonidine Hcl 0.1 Mg Tablet) 0.1 mg PO TID PRN; Protocol PRN Reason: hyperarousal Last Admin: 02/28/22 21:47 Dose: 0.1 mg Documented by: Clozapine (Clozapine 100 Mg Tablet) 350 mg PO DAILY@1700 JOE Last Admin: 04/03/22 17:09 Dose: 350 mg Documented by: Diphenhydramine HCl (Diphenhydramine Hcl 25 Mg Tablet) 50 mg PO Q4H PRN PRN Reason: agitation Haloperidol (Haloperidol 5 Mg Tablet) 10 mg PO Q4H PRN PRN Reason: agitation Last Admin: 04/03/22 22:17 Dose: 10 mg Documented by: Haloperidol Lactate (Haloperidol Lactate 5 Mg/Ml Vial) 10 mg IM DAILY PRN PRN Reason: if refuses PO Hydroxyzine HCl (Hydroxyzine Hcl 25 Mg Tablet) 25 mg PO Q6H PRN PRN Reason: Anxiety Last Admin: 04/03/22 22:18 Dose: 25 mg Documented by: Lidocaine HCl (Lidocaine 4 % Cream Kit) 1 appl TOPICAL DAILY PRN; Protocol PRN Reason: prophylactiinjection site pain Magnesium Hydroxide (Milk Of Magnesia 30 Ml Oral.Susp) 30 ml PO DAILY PRN PRN Reason: Constipation Trazodone HCl (Trazodone Hcl 50 Mg Tablet) 50 mg PO BEDTIME PRN PRN Reason: Insomnia Allergies Allergies Allergy/AdvReac Type Severity Reaction Status Date / Time No Known Allergies Allergy Verified 02/19/22 03:39 [No Known Allergies*] Assessment & Plan Assessment & Plan (1) Schizophrenia, paranoid, chronic with acute exacerbation: Status: Acute Code(s): F20.0 - Paranoid schizophrenia Plan HPI: Nrua is a 26 y.o. male who carries a dx of paranoid schizophrenia. Hx of AH, has fixed delusion of believing neighbors are talking about him. Has DMH and ACCS services through [facility]. No Catarino's order. Hx of med non-adherence upon discharge.? 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 He has a hx of multiple inpatient admissions, including 1 about a month ago with very similar presentation, refusing to take meds, asking for discharge and deemed safe to return to the community. He has been re-presenting to [facility] a fter being discharged with the same presentation, not dangerous, but asking for help and then refusing treatment wanting discharge. He continues to have auditory hallucinations about his neighbor.?Initially, he has not expressed any delusional concerns that his neighbor is going to hurt him, just that his neighbors talking about him and so considered discharge.?However, Patient soon expressed concerns that his neighbors are plotting to harm him and that he is prepared to harm them back if he needs to defend himself.? As patient has presented several times to the emergency room in between admissions he is demonstrating that he is struggling to function in the community.? He has an extensive history of medication noncompliance. He has chronic paranoid delusions and auditory hallucinations that his neighbors are going to hurt him which inter mittently expand to thoughts about preparing to defend himself.? Will continue treatment however, given his long hx of refractory psychosis, no insight and poor adherence with medication, team agrees that patient needs a more long-term admission to stabilize to the point where he could successfully live in the community. PLAN: Section 8b Patient Civil Committed and substituted judgment for medications ordered. Medication plan:? Trial of clozapine; overlap Haldol/Depak (minimally helpful) for now; goal to see if clozapine can be effective alone Increase to Clozapine? 325mg at DINNER time to mitigate daytime tiredness (to help with adherence; was split dosing) CANNOT REFUSE; COURT ORDERED; GIVE HALDOL 5MG IF REFUSES ANC 03/23: 4.1 ANC weekly -DISCONTINUED Divalproex ER 1000 mg PO QHS on 03/26; patient has been refusing it and since goal is to see if monotherapy with clozapine can work, will just discontinue it for now; patient does not have history of bipolar disorder or manic episodes and this medication was used with only limited success for behavioral issues. -DISCONTNUE Haloperidol (was 10 mg BID;patient refuses; at this point might as well see if clozapine by itself can be effective as Haldol has only ever Seemed to be minimally helpful and it's not worth forcing an IM) Continue Benztropine Mesylate (Benztropine Mesylate 0.5 Mg Tablet)? 0.5 mg PO qHS; but on clozapine may not need Continue Clonidine HCl (Clonidine Hcl 0.1 Mg Tablet)? 0.1 mg PO TID PRN Reason: hyperarousal Trazodone HCl? 50 mg PO BEDTIME PRN Insomnia Hydroxyzine HCl (Hydroxyzine Hcl 25 Mg Tablet)? 25 mg PO Q6H PRN Anxiety DC Quetiapine qhs; pt does not want for day to day events (see below)... HOSPITAL COURSE 02/24: Ct treatment plan 02/25: Ct Rx plan. May need committment. Lacks insight and is non compliant with meds. 02/26: Pt adamantly does not want to increase haldol or depakote. Will start sero quel 300 mg QHS for sx of psychotic depression, has not had adequate trial on seroquel. May help with poor sleep. 02/27: Pt has been refusing all meds; AH complaints but denies any SI/HI and his demonstrate safe behaviors on the unit 02/28 retracted 3 day, remains preoccupied with auditory hallucinations of his neighbors and delusional thoughts that his neighbors are persecuting him agrees to stay for treatment; considering clozapine 03/01 Angry and demanding discharge and 3 day notice placed; difficult to engage; no insight.? Refused morning dose of Haldol.? At said he is taking clozapine before and resisted reality testing; however said will still consider 03/02 patient willingly taking clozapine 03/06 patient intermittently takes clozapine; he is disorganized in behavior and thought, intermittently yelling and accusing staff and posturing and threatening staff.? Patient struggles to understand that his rent is paid for; while talking about a specific topic, patient will intermittently respond with a disorganized irrelevant answer.? Patient has failed monotherapy with Seroquel, Palliperidone, Risperdal and Haldol.? Will continue to titrate clozapine as patient is willing to see if this can be effective.? Patient has a 3 day notice due today 03/06/2022.? Team finds that patient is unstable and not safe to return the community as he has ongoing auditory hallucinations and paranoid delusional thoughts that about his neighbors plotting to hurt him.? Will file for Civil commitment; also discussed is that patient may need long-term admission to better establish stability. 5 patient disorganized; refused labs making it difficult to titrate clozapine.? Will continue to trying get patient to allow labs 56 remains disorganized, sometimes adhering to treatment other times refusing it without any clear pattern.? Patient is not amenable to logical explanation and his engagement in tx is unpredictable making dosing with Clozapine (and depakote) difficult as it requires periodic blood work and controlled titration.? However, Will continue with attempts at clozapine since this seems to be best option for patient to become stabilized 03/10 remains disorganized; won't engage; continues to have AH 03/13 CIVIL COMMITMENT AND SUBSTITUTED JUDGMENT ORDERED 03/16 continue current tx plan 03/19 Patient has moments of insight but quickly descends back into struggles with paranoia, disorganized thinking, thinking AH are real. Patient struggles with taking medication are difficult to predict.?Today he said I feel good, why would it take medication? despite that during the same conversation he also said that he continues to hear his neighbors say mad crap And if they come after him something will happen. 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 Thus, will lower Depakote to a 1000 mg q.h.s. With clozapine, it may be easier for patient to tolerate single dosing so will see if moving the entire dose to bedtime helps with adherence rather than being asked to take medications twice a day.? That said, sometimes patient wakes up in the morning and demands his morning medications so it is difficult to know The best way to mitigate his his anxiety around this issue. 03/26 patient has been refusing Depakote; since he does not have history of bipolar disorder manic episodes and this medication has had limited effect, will just discontinue for now and move forward with seen of clozapine can be ef fective on its own; will also DC Haldol Since patient refuses; at this point might as well see if clozapine by itself can be effective as Haldol has only ever Seemed to be minimally helpful. 03/27 denies auditory hallucinations but remains without any insight and saying that he will not take medications when he goes home because he is good. 03/28 Patient vacillates between being irritable and calm; sometimes he says he will take his medications when he goes home other times he says he is doing fine and does not need it. It is not clear if patient still hears auditory hallucinations or if they have resolved as his reporting is inconsistent. It remains necessary for patient to go to a long-term facility for continued medication management and to have a longer time without symptoms. 04/05 patient overall more calm and excepting of being on the unit, waiting for further stabilization and outpatient services to be set up before returning to the community; does not want to go to [facility]. Patient's improvement is despite the fact that both Haldol and Depakote have been discontinued; off these medications he is less sedated and up earlier in the day. Patient denies auditory hallucinations. Intermittently he can accept that AH has resolved due to medication, but he does not have insight into presence of psychiatric disorder and need for ongoing treatment even when feeling stable. That said, it is not clear that increasing doses of Clozaril would resolve this impaired insight; his improved presentation and desire to avoid side effects gives pause to further titrating clozapine. Will leave here for now and monitor. The remains significant concern the patient would discontinue his medications on discharge and team continues to agree that he needs a prolonged experience of being symptom free to connect his ongoing need for medication. MED Trials: Seroquel Palliperidone Risperdal Haldol I spent minutes with the patient and/or on the patient floor today, greater than?50% of which was spent counseling/coordinating care. Patient educated on: diagnosis Informed Consent: further education needed Reason for contiued inpatient stay Substantial Risk for: inability to function and rapid decompensation
[2022-04-04] MEDS: cloZAPine 100 MG TABLET 350 MG PO (15:54)
[2022-04-04 19:07] VITALS: RESP 20
[2022-04-05 12:59] VITALS: BMI 36.4
[2022-04-05] MEDS: cloZAPine 100 MG TABLET 350 MG PO (15:32)
[2022-04-05 16:31] VITALS: RESP 18
--- NOTE | 2022-04-05 17:06 | HO.PSYCHPN ---
Subjective Subjective Date of Service: 04/05/22 Reason For Visit: schizoaffective Interim History: No change. Patient asks when he will be discharge. Otherwise denies voices Mental Status Exam Mental Status Exam Narrative: Pt is alert and oriented; behavior, more calm and cooperative; intermittently irritable and badgering about discharge, but less so; dressed in casual attire, wearing casual cloths, adequately groomed and with adequate hygiene; mood more calm; affect constricted; eye contact adequate, appropriate; Speech is normal rate, mostly normal volume (sometimes loud when irritated); normal prosody; intermittent psychomotor agitation present but less so; thought process mostly goal oriented; Thought content is on discharge; seems less perseverative on paranoid delusional worries about being persecuted by his neighbors; Denies SI/HI. denies AH;? Patients insight and judgment are impaired but have improved. Diagnostics Vital Signs (24Hr): Vital Signs - 24 hr 04/04/22 19:07 04/05/22 16:31 Respiratory Rate 20 18 BMI result Body Mass Index 36.4 Labs Results: 03/01/22 18:29 Medications Medications Current Medications Acetaminophen (Acetaminophen 325 Mg Tablet) 650 mg PO Q6H PRN PRN Reason: Headache/Pain Mild Scale (1-3) Last Admin: 03/03/22 22:41 Dose: 650 mg Documented by: Al Hydroxide/Mg Hydroxide (Magnesium Hydrox/Alum Hydrox 30 Ml Oral.Susp) 30 ml PO Q6H PRN PRN Reason: Heartburn/Nausea Albuterol Sulfate (Albuterol Sulfate 90 Mcg 8 Gm Inhaler) 2 puff INHALE RQ4H PRN PRN Reason: Shortness Of Breath Benztropine Mesylate (Benztropine Mesylate 0.5 Mg Tablet) 0.5 mg PO BEDTIME JOE Last Admin: 04/05/22 15:33 Dose: Not Given Documented by: Clonidine HCl (Clonidine Hcl 0.1 Mg Tablet) 0.1 mg PO TID PRN; Protocol PRN Reason: hyperarousal Last Admin: 02/28/22 21:47 Dose: 0.1 mg Documented by: Clozapine (Clozapine 100 Mg Tablet) 350 mg PO DAILY@1700 JOE Last Admin: 04/05/22 15:32 Dose: 350 mg Documented by: Diphenhydramine HCl (Diphenhydramine Hcl 25 Mg Tablet) 50 mg PO Q4H PRN PRN Reason: agitation Haloperidol (Haloperidol 5 Mg Tablet) 10 mg PO Q4H PRN PRN Reason: agitation Last Admin: 04/03/22 22:17 Dose: 10 mg Documented by: Haloperidol Lactate (Haloperidol Lactate 5 Mg/Ml Vial) 10 mg IM DAILY PRN PRN Reason: if refuses PO Hydroxyzine HCl (Hydroxyzine Hcl 25 Mg Tablet) 25 mg PO Q6H PRN PRN Reason: Anxiety Last Admin: 04/03/22 22:18 Dose: 25 mg Documented by: Lidocaine HCl (Lidocaine 4 % Cream Kit) 1 appl TOPICAL DAILY PRN; Protocol PRN Reason: prophylactiinjection site pain Magnesium Hydroxide (Milk Of Magnesia 30 Ml Oral.Susp) 30 ml PO DAILY PRN PRN Reason: Constipation Trazodone HCl (Trazodone Hcl 50 Mg Tablet) 50 mg PO BEDTIME PRN PRN Reason: Insomnia Allergies Allergies Allergy/AdvReac Type Severity Reaction Status Date / Time No Known Allergies Allergy Verified 02/19/22 03:39 [No Known Allergies*] Assessment & Plan Assessment & Plan (1) Schizophrenia, paranoid, chronic with acute exacerbation: Status: Acute Code(s): F20.0 - Paranoid schizophrenia Plan HPI: Nura is a 26 y.o. male who carries a dx of paranoid schizophrenia. Hx of , has fixed delusion of believing neighbors are talking about him. Has DMH and ACCS services through [facility]. No Catarino's order. Hx of med non-adherence upon discharge.? 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 He has a hx of multiple inpatient admissions, including 1 about a month ago with very similar presentation, refusing to take meds, asking for discharge and deemed safe to return to the community. He has been re-presenting to [facility] ED after being discharged with the same presentation, not dangerous, but asking for help and then refusing treatment wanting discharge. He continues to have auditory hallucinations about his neighbor.?Initially, he has not expressed any delusional concerns that his neighbor is going to hurt him, just that his neighbors talking about him and so considered discharge.?However, Patient soon expressed concerns that his neighbors are plotting to harm him and that he is prepared to harm them back if he needs to defend himself.? As patient has presented several times to the emergency room in between admissions he is demonstrating that he is struggling to function in the community.? He has an extensive history of medication noncompliance. He has chronic paranoid delusions and auditory hallucinations that his neighbors are going to hurt him which intermittently expand to thoughts about preparing to defend himself.? Will continue treatment however, given his long hx of refractory psychosis, no insight and poor adherence with medication, team agrees that patient needs a more long-term admission to stabilize to the point where he could successfully live in the community. PLAN: Section 8b Patient Civil Committed and substituted judgment for medications ordered. Medication plan:? Trial of clozapine; overlap Haldol/Depak (minimally helpful) for now; goal to see if clozapine can be effective alone Increase to Clozapine? 325mg at DINNER time to mitigate daytime tiredness (to help with adherence; was split dosing) CANNOT REFUSE; COURT ORDERED; GIVE HALDOL 5MG IF REFUSES ANC 04/06: 2.9 ANC weekly -DISCONTINUED Divalproex ER 1000 mg PO QHS on 03/26; patient has been refusing it and since goal is to see if monotherapy with clozapine can work, will just discontinue it for now; patient does not have history of bipolar disorder or manic episodes and this medication was used with only limited success for behavioral issues. -DISCONTNUE Haloperidol (was 10 mg BID;patient refuses; at this point might as well see if clozapine by itself can be effective as Haldol has only ever Seemed to be minimally helpful and it's not worth forcing an IM) Continue Benztropine Mesylate (Benztropine Mesylate 0.5 Mg Tablet)? 0.5 mg PO qHS; but on clozapine may not need Continue Clonidine HCl (Clonidine Hcl 0.1 Mg Tablet)? 0.1 mg PO TID PRN Reason: hyperarousal Trazodone HCl? 50 mg PO BEDTIME PRN Insomnia Hydroxyzine HCl (Hydroxyzine Hcl 25 Mg Tablet)? 25 mg PO Q6H PRN Anxiety DC Quetiapine qhs; pt does not want for day to day events (see below)... HOSPITAL COURSE 02/24: Ct treatment plan 02/25: Ct Rx plan. May need committment. Lacks insight and is non compliant with meds. 02/26: Pt adamantly does not want to increase haldol or depakote. Will start seroquel 300 mg QHS for sx of psychotic depression, has not had adequate trial on seroquel. May help with poor sleep. 02/27: Pt has been refusing all meds; AH complaints but denies any SI/HI and his demonstrate safe behaviors on the unit 02/28 retracted 3 day, remains preoccupied with auditory hallucinations of his neighbors and delusional thoughts that his neighbors are persecuting him agrees to stay for treatment; considering clozapine 03/01 Angry and demanding discharge and 3 day notice placed; difficult to engage; no insight.? Refused morning dose of Haldol.? At said he is taking clozapine before and resisted reality testing; however said will still consider 03/02 patient willingly taking clozapine 03/06 patient intermittently takes clozapine; he is disorganized in behavior and thought, intermittently yelling and accusing staff and posturing and threatening staff.? Patient struggles to understand that his rent is paid for; while talking about a specific topic, patient will intermittently respond with a disorganized irrelevant answer.? Patient has failed monotherapy with Seroquel, Palliperidone, Risperdal and Haldol.? Will continue to titrate clozapine as patient is willing to see if this can be effective.? Patient has a 3 day notice due today 03/06/2022.? Team finds that patient is unstable and not safe to return the community as he has ongoing auditory hallucinations and paranoid delusional thoughts that about his neighbors plotting to hurt him.? Will file for Civil commitment; also discussed is that patient may need long-term admission to better establish stability. 5 patient disorganized; refused labs making it difficult to titrate clozapine.? Will continue to trying get patient to allow labs 56 remains disorganized, sometimes adhering to treatment other times refusing it without any clear pattern.? Patient is not amenable to logical explanation and his engagement in tx is unpredictable making dosing with Clozapine (and depakote) difficult as it requires periodic blood work and controlled titration.? However, Will continue with attempts at clozapine since this seems to be best option for patient to become stabilized 03/10 remains disorganized; won't engage; continues to have AH 03/13 CIVIL COMMITMENT AND SUBSTITUTED JUDGMENT ORDERED 03/16 continue current tx plan 03/19 Patient has moments of insight but quickly descends back into struggles with paranoia, disorganized thinking, thinking AH are real. Patient struggles with taking medication are difficult to predict.?Today he said I feel good, why would it take medication? despite that during the same conversation he also said that he continues to hear his neighbors say mad crap And if they come after him something will happen. The Hope is that clozapine as a monotherapy will be sufficient; selling underwriter discussed case with patient's past inpatient provider and there is no history of bipolar/manic episodes and Depakote only used for impulsivity/anger.? Thus, will lower Depakote to a 1000 mg q.h.s. With clozapine, it may be easier for patient to tolerate single dosing so will see if moving the entire dose to bedtime helps with adherence rather than being asked to take medications twice a day.? That said, sometimes patient wakes up in the morning and demands his morning medications so it is difficult to know The best way to mitigate his his anxiety around this issue. 03/26 patient has been refusing Depakote; since he does not have history of bipolar disorder manic episodes and this medication has had limited effect, will just discontinue for now and move forward with seen of clozapine can be effective on its own; will also DC Haldol Since patient refuses; at this point might as well see if clozapine by itself can be effective as Haldol has only ever Seemed to be minimally helpful. 03/27 denies auditory hallucinations but remains without any insight and saying that he will not take medications when he goes home because he is good. 03/28 Patient vacillates between being irritable and calm; sometimes he says he will take his medications when he goes home other times he says he is doing fine and does not need it. It is not clear if patient still hears auditory hallucinations or if they have resolved as his reporting is inconsistent. It remains necessary for patient to go to a long-term facility for continued medication management and to have a longer time without symptoms. 04/04 (not 04/05) patient overall more calm and excepting of being on the unit, waiting for further stabilization and outpatient services to be set up before returning to the community; does not want to go to [facility].? Patient's improvement is despite the fact that both Haldol and Depakote have been discontinued; off these medications he is less sedated and up earlier in the day.? Patient denies auditory hallucinations.? Intermittently he can accept that AH has resolved due to medication, but he does not have insight into presence of psychiatric disorder and need for ongoing treatment even when feeling stable.? That said, it is not clear that increasing doses of Clozaril would resolve this impaired insight; his improved presentation and desire to avoid side effects gives pause to further titrating clozapine.? Will leave here for now and monitor.? The remains significant concern the patient would discontinue his medications on discharge and team continues to agree that he needs a prolonged experience of being symptom free to connect his ongoing need for medication. 04/05 no change MED Trials: Seroquel Palliperidone Risperdal Haldol I spent minutes with the patient and/or on the patient floor today, greater than?50% of which was spent counseling/coordinating care. Informed Consent: does not understand and further education needed Reason for contiued inpatient stay Substantial Risk for: inability to function and rapid decompensation
[2022-04-06 11:16] LABS: Neut%MD 36.4 %; Neutrophils Absolute Auto 2.9 x10*3/uL (2.0-8.3); WBCANC 8.1 X10*3/uL
[2022-04-06 12:54] VITALS: PULSE 94; RESP 20; TEMP 36.9; O2SAT 95
--- NOTE | 2022-04-06 12:59 | P.PNPSI_ITS ---
Subjective Subjective Date of Service: 04/06/22 Reason For Visit: schizoaffective Interim History: Patient more forthcoming today and shared that when the [facility]NA has come in the past, he decided not to answer the door and did not answer phone calls which is why he ended up going off his medications. He does not want to go to [facility] and wants to complete would ever needs to be done there, on this unit here. However intermittently he shared he understands the need. Denies AVH. Mental Status Exam Mental Status Exam Narrative: Pt is alert and oriented; behavior, more calm and cooperative; dressed in casual attire, wearing casual cloths, adequately groomed and with adequate hygiene; moo d more calm; affect constricted; eye contact adequate, appropriate; Speech is normal rate, mostly normal volume (sometimes loud when irritated); normal prosody; no intermittent psychomotor agitation; thought process mostly goal oriented; Thought content is on discharge; seems less perseverative on paranoid delusional worries about being persecuted by his neighbors; Denies SI/HI. denies AH;? Patients insight and judgment are impaired but have improved. Diagnostics Vital Signs (24Hr): Vital Signs - 24 hr 04/05/22 16:31 04/06/22 12:54 Temperature 98.4 F Pulse Rate 94 Respiratory Rate 18 20 Pulse Oximetry 95 BMI result Body Mass Index 36.4 Labs Results: 03/01/22 18:29 Labs: Laboratory Results - last 48 hr 04/06/22 11:05 Absolute Neuts (auto) 2.9 Medications Medications Current Medications Acetaminophen (Acetaminophen 325 Mg Tablet) 650 mg PO Q6H PRN PRN Reason: Headache/Pain Mild Scale (1-3) Last Admin: 03/03/22 22:41 Dose: 650 mg Documented by: Al Hydroxide/Mg Hydroxide (Magnesium Hydrox/Alum Hydrox 30 Ml Oral.Susp) 30 ml PO Q6H PRN PRN Reason: Heartburn/Nausea Albuterol Sulfate (Albuterol Sulfate 90 Mcg 8 Gm Inhaler) 2 puff INHALE RQ4H PRN PRN Reason: Shortness Of Breath Benztropine Mesylate (Benztropine Mesylate 0.5 Mg Tablet) 0.5 mg PO BEDTIME JOE Last Admin: 04/05/22 15:33 Dose: Not Given Documented by: Clonidine HCl (Clonidine Hcl 0.1 Mg Tablet) 0.1 mg PO TID PRN; Protocol PRN Reason: hyperarousal Last Admin: 02/28/22 21:47 Dose: 0.1 mg Documented by: Clozapine (Clozapine 100 Mg Tablet) 350 mg PO DAILY@1700 JOE Last Admin: 04/05/22 15:32 Dose: 350 mg Documented by: Diphenhydramine HCl (Diphenhydramine Hcl 25 Mg Tablet) 50 mg PO Q4H PRN PRN Reason: agitation Haloperidol (Haloperidol 5 Mg Tablet) 10 mg PO Q4H PRN PRN Reason: agitation Last Admin: 04/03/22 22:17 Dose: 10 mg Documented by: Haloperidol Lactate (Haloperidol Lactate 5 Mg/Ml Vial) 10 mg IM DAILY PRN PRN Reason: if refuses PO Hydroxyzine HCl (Hydroxyzine Hcl 25 Mg Tablet) 25 mg PO Q6H PRN PRN Reason: Anxiety Last Admin: 04/03/22 22:18 Dose: 25 mg Documented by: Lidocaine HCl (Lidocaine 4 % Cream Kit) 1 appl TOPICAL DAILY PRN; Protocol PRN Reason: prophylactiinjection site pain Magnesium Hydroxide (Milk Of Magnesia 30 Ml Oral.Susp) 30 ml PO DAILY PRN PRN Reason: Constipation Trazodone HCl (Trazodone Hcl 50 Mg Tablet) 50 mg PO BEDTIME PRN PRN Reason: Insomnia Allergies Allergies Allergy/AdvReac Type Severity Reaction Status Date / Time No Known Allergies Allergy Verified 02/19/22 03:39 [No Known Allergies*] Assessment & Plan Assessment & Plan (1) Schizophrenia, paranoid, chronic with acute exacerbation: Status: Acute Code(s): F20.0 - Paranoid schizophrenia Plan HPI: Nura is a 26 y.o. male who carries a dx of paranoid schizophrenia. Hx of AH, has fixed delusion of believing neighbors are talking about him. Has DMH and ACCS services through [facility]. No Catarino's order. Hx of med non-adherence upon discharge.? Patient has been repeatedly coming to the emergency room asking for help with auditory hallucinations Formulation: dx Schizophrenia, paranoid type Final Cleaner discussed case with colleagues who have worked with patient in the past and also with staff on the unit for current admission. He has a hx of multiple inpatient admissions, including 1 about a month ago with very similar presentation, refusing to take meds, asking for discharge and deemed safe to return to the community. He has been re-presenting to [facility] after being discharged with the same presentation, not dangerous, but asking for help and then refusing treatment wanting discharge. He continues to have auditory hallucinations about his neighbor.?Initially, he has not expressed any delusional concerns that his neighbor is going to hurt him, just that his neighbors talking about him and so considered discharge.?However, Patient soon expressed concerns that his neighbors are plotting to harm him and that he is prepared to harm them back if he needs to defend himself.? As patient has presented several times to the emergency room in between admissions he is demonstrating that he is struggling to function in the community.? He has an extensive history of medication noncompliance. He has chronic paranoid delusions and auditory hallucinations that his neighbors are going to hurt him which intermittently expand to thoughts about preparing to defend himself.? Will continue treatment however, given his long hx of refractory psychosis, no insight and poor adherence with medication, team agrees that patient needs a more long-term admission to stabilize to the point where he could successfully live in the community. PLAN: Section 8b Patient Civil Committed and substituted judgment for medications ordered. Medication plan:? Trial of clozapine; overlap Haldol/Depak (minimally helpful) for now; goal to see if clozapine can be effective alone Clozapine? 325mg at DINNER time to mitigate daytime tiredness (to help with adherence; was split dosing) CANNOT REFUSE; COURT ORDERED; GIVE HALDOL 5MG IF REFUSES -patient has improved significantly so will leave at this dose for now ANC 04/06: 2.9 ANC weekly -DISCONTINUED Divalproex ER 1000 mg PO QHS on 03/26; patient has been refusing it and since goal is to see if monotherapy with clozapine can work, will just discontinue it for now; patient does not have history of bipolar disorder or manic episodes and this medication was used with only limited success for behavioral issues. -DISCONTNUE Haloperidol (was 10 mg BID; patient refuses; at this point might as well see if clozapine by itself can be effective as Haldol has only ever Seemed to be minimally helpful and it's not worth forcing an IM) Continue Benztropine Mesylate (Benztropine Mesylate 0.5 Mg Tablet)? 0.5 mg PO qH S; but on clozapine may not need Continue Clonidine HCl (Clonidine Hcl 0.1 Mg Tablet)? 0.1 mg PO TID PRN Reason: hyperarousal Trazodone HCl? 50 mg PO BEDTIME PRN Insomnia Hydroxyzine HCl (Hydroxyzine Hcl 25 Mg Tablet)? 25 mg PO Q6H PRN Anxiety DC Quetiapine qhs; pt does not want for day to day events (see below)... HOSPITAL COURSE 02/24: Ct treatment plan 02/25: Ct Rx plan. May need committment. Lacks insight and is non compliant with meds. 02/26: Pt adamantly does not want to increase haldol or depakote. Will start seroquel 300 mg QHS for sx of psychotic depression, has not had adequate trial on seroquel. May help with poor sleep. 02/27: Pt has been refusing all meds; AH complaints but denies any SI/HI and his demonstrate safe behaviors on the unit 02/28 retracted 3 day, remains preoccupied with auditory hallucinations of his neighbors and delusional thoughts that his neighbors are persecuting him agrees to stay for treatment; considering clozapine 03/01 Angry and demanding discharge and 3 day notice placed; difficult to engage; no insight.? Refused morning dose of Haldol.? At said he is taking clozapine before and resisted reality testing; however said will still consider 03/02 patient willingly taking clozapine 03/06 patient intermittently takes clozapine; he is disorganized in behavior and thought, intermittently yelling and accusing staff and posturing and threatening staff.? Patient struggles to understand that his rent is paid for; while talking about a specific topic, patient will intermittently respond with a disorganized irrelevant answer.? Patient has failed monotherapy with Seroquel, Palliperidone, Risperdal and Haldol.? Will continue to titrate clozapine as patient is willing to see if this can be effective.? Patient has a 3 day notice due today 03/06/2022.? Team finds that patient is unstable and not safe to return the community as he has ongoing auditory hallucinations and paranoid delusional thoughts that about his neighbors plotting to hurt him.? Will file for Civil commitment; also discussed is that patient may need long-term admission to better establish stability. 03/08 patient disorganized; refused labs making it difficult to titrate clozapine.? Will continue to trying get patient to allow labs 03/09 remains disorganized, sometimes adhering to treatment other times refusing it without any clear pattern.? Patient is not amenable to logical explanation and his engagement in tx is unpredictable making dosing with Clozapine (and depakote) difficult as it requires periodic blood work and controlled titration.? However, Will continue with attempts at clozapine since this seems to be best option for patient to become stabilized 03/10 remains disorganized; won't engage; continues to have AH 03/13 CIVIL COMMITMENT AND SUBSTITUTED JUDGMENT ORDERED 03/16 continue current tx plan 03/19 Patient has moments of insight but quickly descends back into struggles with paranoia, disorganized thinking, thinking AH are real. Patient struggles with taking medication are difficult to predict.?Today he said I feel good, why would it take medication? despite that during the same conversation he also said that he continues to hear his neighbors say mad crap And if they come after him something will happen. The Hope is that clozapine as a monotherapy will be sufficient; narrative writer discussed case with patient's past inpatient provider and there is no history of bipolar/manic episodes and Depakote only used for impulsivity/anger.? Thus, will lower Depakote to a 1000 mg q.h.s. With clozapine, it may be easier for patient to tolerate single dosing so will see if moving the entire dose to bedtime helps with adherence rather than being asked to take medications twice a day.? That said, sometimes patient wakes up in the morning and demands his morning medications so it is difficult to know The best way to mitigate his his anxiety around this issue. 03/26 patient has been refusing Depakote; since he does not have history of bipolar disorder manic episodes and this medication has had limited effect, will just discontinue for now and move forward with seen of clozapine can be effective on its own; will also DC Haldol Since patient refuses; at this point might as well see if clozapine by itself can be effective as Haldol has only ever Seemed to be minimally helpful. 03/27 denies auditory hallucinations but remains without any insight and saying that he will not take medications when he goes home because he is good. 03/28 Patient vacillates between being irritable and calm; sometimes he says he will take his medications when he goes home other times he says he is doing fine and does not need it. It is not clear if patient still hears auditory hallucinations or if they have resolved as his reporting is inconsistent. It remains necessary for patient to go to a long-term facility for continued medication management and to have a longer time without symptoms. 04/04 (not 04/05) patient overall more calm and excepting of being on the unit, waiting for further stabilization and outpatient services to be set up before returning to the community; does not want to go to [facility].? Patient's improvement is despite the fact that both Haldol and Depakote have been discontinued; off these medications he is less sedated and up earlier in the day.? Patient denies auditory hallucinations.? Intermittently he can accept that AH has resolved due to medication, but he does not have insight into presence of psychiatric disorder and need for ongoing treatment even when feeling stable.? That said, it is not clear that increasing doses of Clozaril would resolve this impaired insight; his improved presentation and desire to avoid side effects gives pause to further titrating clozapine.? Will leave here for now and monitor.? The remains significant concern the patient would discontinue his medications on discharge and team continues to agree that he needs a prolonged experience of being symptom free to connect his ongoing need for medication. 04/05 no change MED Trials: Seroquel Palliperidone Risperdal Haldol I spent minutes with the patient and/or on the patient floor today, greater than?50% of which was spent counseling/coordinating care. Patient educated on: diagnosis Informed Consent: understands and further education needed Reason for contiued inpatient stay Substantial Risk for: inability to function and rapid decompensation
[2022-04-06] MEDS: cloZAPine 100 MG TABLET 350 MG PO (15:45)
[2022-04-06 19:54] VITALS: RESP 16
[2022-04-07 08:21] VITALS: PULSE 94; RESP 20; TEMP 37; O2SAT 96
--- NOTE | 2022-04-07 16:46 | HO.PSYCHPN ---
Subjective Subjective Date of Service: 04/07/22 Reason For Visit: schizoaffective Subjective Notes: Section 8 Interim History: Nura reports he is feeling Ok. He denies current issues or concerns. He asks what I know about [facility] and makes reference of his preference to remain on M5 for the duration and not go to [facility] Medication Compliance: Yes Side effects from medications: No Attending Groups: No Review of Systems Acute medical concerns: No Medical Review of Systems: unchanged Mental Status Exam Mental Status Exam Patient Appearance: Appropriate Patient Orientation: Person, Place and Situation Level of Consciousness: Alert Patient Behavior: Talkative, Restless (at times) and Good Eye Contact Mood Description: Apprehensive Affect Description: Constricted Patient Cognition Impaired: No Ability to Follow Directions: Good Speech Pattern: Spontaneous Speech Memory Description: Episodic Impaired Hallucinations: None (denies, however at times it appears he may be struggling with this symptom) Delusions: Not Present Perceptual Disturbances: Depersonalization and Derealization Thought Process: Distracted and Slowed Thinking Thought Content: positive for [place], positive for Circumstantial and positive for Suicidal Ideation (denies) Depressive Symptoms: Diff. Making Decisions Judgement: Poor Diagnostics Vital Signs (24Hr): Vital Signs - 24 hr 04/06/22 19:54 04/07/22 08:21 Temperature 98.6 F Pulse Rate 94 Respiratory Rate 16 20 Pulse Oximetry 96 BMI result Body Mass Index 36.4 Labs Results: 03/01/22 18:29 Labs: Laboratory Results - last 48 hr 04/06/22 11:05 Absolute Neuts (auto) 2.9 Medications Medications Current Medications Acetaminophen (Acetaminophen 325 Mg Tablet) 650 mg PO Q6H PRN PRN Reason: Headache/Pain Mild Scale (1-3) Last Admin: 03/03/22 22:41 Dose: 650 mg Documented by: Al Hydroxide/Mg Hydroxide (Magnesium Hydrox/Alum Hydrox 30 Ml Oral.Susp) 30 ml PO Q6H PRN PRN Reason: Heartburn/Nausea Albuterol Sulfate (Albuterol Sulfate 90 Mcg 8 Gm Inhaler) 2 puff INHALE RQ4H PRN PRN Reason: Shortness Of Breath Benztropine Mesylate (Benztropine Mesylate 0.5 Mg Tablet) 0.5 mg PO BEDTIME [facility] Last Admin: 04/06/22 15:45 Dose: Not Given Documented by: Clonidine HCl (Clonidine Hcl 0.1 Mg Tablet) 0.1 mg PO TID PRN; Protocol PRN Reason: hyperarousal Last Admin: 02/28/22 21:47 Dose: 0.1 mg Documented by: Clozapine (Clozapine 100 Mg Tablet) 350 mg PO DAILY@1700 JOE Last Admin: 04/06/22 15:45 Dose: 350 mg Documented by: Diphenhydramine HCl (Diphenhydramine Hcl 25 Mg Tablet) 50 mg PO Q4H PRN PRN Reason: agitation Haloperidol (Haloperidol 5 Mg Tablet) 10 mg PO Q4H PRN PRN Reason: agitation Last Admin: 04/03/22 22:17 Dose: 10 mg Documented by: Haloperidol Lactate (Haloperidol Lactate 5 Mg/Ml Vial) 10 mg IM DAILY PRN PRN Reason: if refuses PO Hydroxyzine HCl (Hydroxyzine Hcl 25 Mg Tablet) 25 mg PO Q6H PRN PRN Reason: Anxiety Last Admin: 04/03/22 22:18 Dose: 25 mg Documented by: Lidocaine HCl (Lidocaine 4 % Cream Kit) 1 appl TOPICAL DAILY PRN; Protocol PRN Reason: prophylactiinjection site pain Magnesium Hydroxide (Milk Of Magnesia 30 Ml Oral.Susp) 30 ml PO DAILY PRN PRN Reason: Constipation Trazodone HCl (Trazodone Hcl 50 Mg Tablet) 50 mg PO BEDTIME PRN PRN Reason: Insomnia Allergies Allergies Allergy/AdvReac Type Severity Reaction Status Date / Time No Known Allergies Allergy Verified 02/19/22 03:39 [No Known Allergies*] Assessment & Plan Assessment & Plan (1) Schizophrenia, paranoid, chronic with acute exacerbation: Status: Acute Code(s): F20.0 - Paranoid schizophrenia Plan HPI: Nura is a 26 y.o. male who carries a dx of paranoid schizophrenia. Hx of AH, has fixed delusion of believing neighbors are talking about him. Has DMH and ACC[facility] services through [facility]. No Catarino's order. Hx of med non-adherence upon discharge.? Patient has been repeatedly coming to the emergency room asking for help with auditory hallucinations Formulation: dx Schizophrenia, paranoid type Product Management Specialist discussed case with colleagues who have worked with patient in the past and also with staff on the unit for current admission. He has a hx of multiple inpatient admissions, including 1 about a month ago with very similar presentation, refusing to take meds, asking for discharge and deemed safe to return to the community. He has been re-presenting to [facility] after being discharged with the same presentation, not dangerous, but asking for help and then refusing treatment wanting discharge. He continues to have auditory hallucinations about his neighbor.?Initially, he has not expressed any delusional concerns that his neighbor is going to hurt him, just that his neighbors talking about him and so considered discharge.?However, Patient soon expressed concerns that his neighbors are plotting to harm him and that he is prepared to harm them back if he needs to defend himself.? As patient has presented several times to the emergency room in between admissions he is demonstrating that he is struggling to function in the community.? He has an extensive history of medication noncompliance. He has chronic paranoid delusions and auditory hallucinations that his neighbors are going to hurt him which intermittently expand to thoughts about preparing to defend himself.? Will continue treatment however, given his long hx of refractory psychosis, no insight and poor adherence with medication, team agrees that patient needs a more long-term admission to stabilize to the point where he could successfully live in the community. PLAN: Section 8b Patient Civil Committed and substituted judgment for medications ordered. Medication plan:? Trial of clozapine; overlap Haldol/Depak (minimally helpful) for now; goal to see if clozapine can be effective alone Clozapine? 325mg at DINNER time to mitigate daytime tiredness (to help with adherence; was split dosing) CANNOT REFUSE; COURT ORDERED; GIVE HALDOL 5MG IF REFUSES -patient has improved significantly so will leave at this dose for now ANC 04/06: 2.9 ANC weekly -DISCONTINUED Divalproex ER 1000 mg PO QHS on 03/26; patient has been refusing it and since goal is to see if monotherapy with clozapine can work, will just discontinue it for now; patient does not have history of bipolar disorder or manic episodes and this medication was used with only limited success for behavioral issues. -DISCONTNUE Haloperidol (was 10 mg BID; patient refuses; at this point might as well see if clozapine by itself can be effective as Haldol has only ever Seemed to be minimally helpful and it's not worth forcing an IM) Continue Benztropine Mesylate (Benztropine Mesylate 0.5 Mg Tablet)? 0.5 mg PO qHS; but on clozapine may not need Continue Clonidine HCl (Clonidine Hcl 0.1 Mg Tablet)? 0.1 mg PO TID PRN Reason: hyperarousal Trazodone HCl? 50 mg PO BEDTIME PRN Insomnia Hydroxyzine HCl (Hydroxyzine Hcl 25 Mg Tablet)? 25 mg PO Q6H PRN Anxiety DC Quetiapine qhs; pt does not want for day to day events (see below)... HOSPITAL COURSE 02/24: Ct treatment plan 02/25: Ct Rx plan. May need committment. Lacks insight and is non compliant with meds. 02/26: Pt adamantly does not want to increase haldol or depakote. Will start seroquel 300 mg QHS for sx of psychotic depression, has not had adequate trial on seroquel. May help with poor sleep. 02/27: Pt has been refusing all meds; AH complaints but denies any SI/HI and his demonstrate safe behaviors on the unit 02/28 retracted 3 day, remains preoccupied with auditory hallucinations of his neighbors and delusional thoughts that his neighbors are persecuting him agrees to stay for treatment; considering clozapine 03/01 Angry and demanding discharge and 3 day notice placed; difficult to engage; no insight.? Refused morning dose of Haldol.? At said he is taking clozapine before and resisted reality testing; however said will still consider 03/02 patient willingly taking clozapine 03/06 patient intermittently takes clozapine; he is disorganized in behavior and thought, intermittently yelling and accusing staff and posturing and threatening staff.? Patient struggles to understand that his rent is paid for; while talking about a specific topic, patient will intermittently respond with a disorganized irrelevant answer.? Patient has failed monotherapy with Seroquel, Palliperidone, Risperdal and Haldol.? Will continue to titrate clozapine as patient is willing to see if this can be effective.? Patient has a 3 day notice due today 03/06/2022.? Team finds that patient is unstable and not safe to return the community as he has ongoing auditory hallucinations and paranoid delusional thoughts that about his neighbors plotting to hurt him.? Will file for Civil commitment; also discussed is that patient may need long-term admission to better establish stability. 03/08 patient disorganized; refused labs making it difficult to titrate clozapine.? Will continue to trying get patient to allow labs 03/09 remains disorganized, sometimes adhering to treatment other times refusing it without any clear pattern.? Patient is not amenable to logical explanation and his engagement in tx is unpredictable making dosing with Clozapine (and depakote) difficult as it requires periodic blood work and controlled titration.? However, Will continue with attempts at clozapine since this seems to be best option for patient to become stabilized 03/10 remains disorganized; won't engage; continues to have AH 03/13 CIVIL COMMITMENT AND SUBSTITUTED JUDGMENT ORDERED 03/16 continue current tx plan 03/19 Patient has moments of insight but quickly descends back into struggles with paranoia, disorganized thinking, thinking AH are real. Patient struggles with taking medication are difficult to predict.?Today he said I feel good, why would it take medication? despite that during the same conversation he also said that he continues to hear his neighbors say mad crap And if they come after him something will happen. The Hope is that clozapine as a monotherapy will be sufficient; tag writer discussed case with patient's past inpatient provider and there is no history of bipolar/manic episodes and Depakote only used for impulsivity/anger.? Thus, will lower Depakote to a 1000 mg q.h.s. With clozapine, it may be easier for patient to tolerate single dosing so will see if moving the entire dose to bedtime helps with adherence rather than being asked to take medications twice a day.? That said, sometimes patient wakes up in the morning and demands his morning medications so it is difficult to know The best way to mitigate his his anxiety around this issue. 03/26 patient has been refusing Depakote; since he does not have history of bipolar disorder manic episodes and this medication has had limited effect, will just discontinue for now and move forward with seen of clozapine can be effective on its own; will also DC Haldol Since patient refuses; at this point might as well see if clozapine by itself can be effective as Haldol has only ever Seemed to be minimally helpful. 03/27 denies auditory hallucinations but remains without any insight and saying that he will not take medications when he goes home because he is good. 03/28 Patient vacillates between being irritable and calm; sometimes he says he will take his medications when he goes home other times he says he is doing fine and does not need it. It is not clear if patient still hears auditory hallucinations or if they have resolved as his reporting is inconsistent. It remains necessary for patient to go to a long-term facility for continued medication management and to have a longer time without symptoms. 04/04 (not 04/05) patient overall more calm and excepting of being on the unit, waiting for further stabilization and outpatient services to be set up before returning to the community; does not want to go to [facility].? Patient's improvement is despite the fact that both Haldol and Depakote have been discontinued; off these medications he is less sedated and up earlier in the day.? Patient denies auditory hallucinations.? Intermittently he can accept that AH has resolved due to medication, but he does not have insight into presence of psychiatric disorder and need for ongoing treatment even when feeling stable.? That said, it is not clear that increasing doses of Clozaril would resolve this impaired insight; his improved presentation and desire to avoid side effects gives pause to further titrating clozapine.? Will leave here for now and monitor.? The remains significant concern the patient would discontinue his medications on discharge and team continues to agree that he needs a prolonged experience of being symptom free to connect his ongoing need for medication. 04/05 no change 04/07/22- coverage- continue current plan MED Trials: Seroquel Palliperidone Risperdal Haldol I spent minutes with the patient and/or on the patient floor today, greater than?50% of which was spent counseling/coordinating care. Patient educated on: therapeutic strategies Informed Consent: further education needed Reason for contiued inpatient stay Substantial Risk for: inability to function and rapid decompensation
[2022-04-07 18:00] VITALS: RESP 16
[2022-04-07] MEDS: cloZAPine 100 MG TABLET 350 MG PO (18:15)
--- NOTE | 2022-04-07 21:30 | PC.NURSE ---
At 2100 patient had a moderate amount of emesis of partially digested food.
--- NOTE | 2022-04-08 10:49 | P.PNPSI_ITS ---
Subjective Subjective Date of Service: 04/08/22 Reason For Visit: schizoaffective Subjective Notes: Section 8 Interim History: Calm, denies concerns today. No questions about medications he reports. No medical symptoms as well he reports Medication Compliance: Yes Side effects from medications: No Attending Groups: No Review of Systems Acute medical concerns: No Medical Review of Systems: unchanged Mental Status Exam Mental Status Exam Patient Appearance: Appropriate Patient Orientation: Person, Place and Situation Level of Consciousness: Alert Patient Behavior: Talkative, Restless (at times) and Good Eye Contact Mood Description: Apprehensive Affect Description: Constricted Patient Cognition Impaired: No Ability to Follow Directions: Good Speech Pattern: Spontaneous Speech Memory Description: Episodic Impaired Hallucinations: None (denies, however at times it appears he may be struggling with this symptom) Delusions: Not Present Perceptual Disturbances: Depersonalization and Derealization Thought Process: Distracted and Slowed Thinking Thought Content: positive for [place], positive for Circumstantial and positive for Suicidal Ideation (denies) Depressive Symptoms: Diff. Making Decisions Judgement: Poor Diagnostics Vital Signs (24Hr): Vital Signs - 24 hr 04/07/22 18:00 Respiratory Rate 16 BMI result Body Mass Index 36.4 Labs Results: 03/01/22 18:29 Labs: Laboratory Results - last 48 hr 04/06/22 11:05 Absolute Neuts (auto) 2.9 Medications Medications Current Medications Acetaminophen (Acetaminophen 325 Mg Tablet) 650 mg PO Q6H PRN PRN Reason: Headache/Pain Mild Scale (1-3) Last Admin: 03/03/22 22:41 Dose: 650 mg Documented by: Al Hydroxide/Mg Hydroxide (Magnesium Hydrox/Alum Hydrox 30 Ml Oral.Susp) 30 ml PO Q6H PRN PRN Reason: Heartburn/Nausea Albuterol Sulfate (Albuterol Sulfate 90 Mcg 8 Gm Inhaler) 2 puff INHALE RQ4H PRN PRN Reason: Shortness Of Breath Benztropine Mesylate (Benztropine Mesylate 0.5 Mg Tablet) 0.5 mg PO BEDTIME JOE Last Admin: 04/07/22 20:41 Dose: Not Given Documented by: Clonidine HCl (Clonidine Hcl 0.1 Mg Tablet) 0.1 mg PO TID PRN; Protocol PRN Reason: hyperarousal Last Admin: 02/28/22 21:47 Dose: 0.1 mg Documented by: Clozapine (Clozapine 100 Mg Tablet) 350 mg PO DAILY@1700 OJE Last Admin: 04/07/22 18:15 Dose: 350 mg Documented by: Diphenhydramine HCl (Diphenhydramine Hcl 25 Mg Tablet) 50 mg PO Q4H PRN PRN Reason: agitation Haloperidol (Haloperidol 5 Mg Tablet) 10 mg PO Q4H PRN PRN Reason: agitation Last Admin: 04/03/22 22:17 Dose: 10 mg Documented by: Haloperidol Lactate (Haloperidol Lactate 5 Mg/Ml Vial) 10 mg IM DAILY PRN PRN Reason: if refuses PO Hydroxyzine HCl (Hydroxyzine Hcl 25 Mg Tablet) 25 mg PO Q6H PRN PRN Reason: Anxiety Last Admin: 04/03/22 22:18 Dose: 25 mg Documented by: Lidocaine HCl (Lidocaine 4 % Cream Kit) 1 appl TOPICAL DAILY PRN; Protocol PRN Reason: prophylactiinjection site pain Magnesium Hydroxide (Milk Of Magnesia 30 Ml Oral.Susp) 30 ml PO DAILY PRN PRN Reason: Constipation Trazodone HCl (Trazodone Hcl 50 Mg Tablet) 50 mg PO BEDTIME PRN PRN Reason: Insomnia Allergies Allergies Allergy/AdvReac Type Severity Reaction Status Date / Time No Known Allergies Allergy Verified 02/19/22 03:39 [No Known Allergies*] Assessment & Plan Assessment & Plan (1) Schizophrenia, paranoid, chronic with acute exacerbation: Status: Acute Code(s): F20.0 - Paranoid schizophrenia Plan HPI: Nura is a 26 y.o. male who carries a dx of paranoid schizophrenia. Hx of , has fixed delusion of believing neighbors are talking about him. Has DMH and ACCS services through [facility]. No Catarino's order. Hx of med non-adherence upon discharge.? Patient has been repeatedly coming to the emergency room asking for help with auditory hallucinations Formulation: dx Schizophrenia, paranoid type Strategic Marketing Specialist discussed case with colleagues who have worked with patient in the past and also with staff on the unit for current admission. He has a hx of multiple inpatient admissions, including 1 about a month ago with very similar presentation, refusing to take meds, asking for discharge and deemed safe to return to the community. He has been re-presenting to [facility] after being discharged with the same presentation, not dangerous, but asking for help and then refusing treatment wanting discharge. He continues to have a uditory hallucinations about his neighbor.?Initially, he has not expressed any delusional concerns that his neighbor is going to hurt him, just that his neighbors talking about him and so considered discharge.?However, Patient soon expressed concerns that his neighbors are plotting to harm him and that he is prepared to harm them back if he needs to defend himself.? As patient has presented several times to the emergency room in between admissions he is demonstrating that he is struggling to function in the community.? He has an extensive history of medication noncompliance. He has chronic paranoid delusions and auditory hallucinations that his neighbors are going to hurt him which intermittently expand to thoughts about preparing to defend himself.? Will continue treatment however, given his long hx of refractory psychosis, no insight and poor adherence with medication, team agrees that patient needs a more long-term admission to stabilize to the point where he could successfully live in the community. PLAN: Section 8b Patient Civil Committed and substituted judgment for medications ordered. Medication plan:? Trial of clozapine; overlap Haldol/Depak (minimally helpful) for now; goal to see if clozapine can be effective alone Clozapine? 325mg at DINNER time to mitigate daytime tiredness (to help with adherence; was split dosing) CANNOT REFUSE; COURT ORDERED; GIVE HALDOL 5MG IF REFUSES -patient has improved significantly so will leave at this dose for now ANC 04/06: 2.9 ANC weekly -DISCONTINUED Divalproex ER 1000 mg PO QHS on 03/26; patient has been refusing it and since goal is to see if monotherapy with clozapine can work, will just discontinue it for now; patient does not have history of bipolar disorder or manic episodes and this medication was used with only limited success for behavioral issues. -DISCONTNUE Haloperidol (was 10 mg BID; patient refuses; at this point might as well see if clozapine by itself can be effective as Haldol has only ever Seemed to be minimally helpful and it's not worth forcing an IM) Continue Benztropine Mesylate (Benztropine Mesylate 0.5 Mg Tablet)? 0.5 mg PO qHS; but on clozapine may not need Continue Clonidine HCl (Clonidine Hcl 0.1 Mg Tablet)? 0.1 mg PO TID PRN Reason: hyperarousal Trazodone HCl? 50 mg PO BEDTIME PRN Insomnia Hydroxyzine HCl (Hydroxyzine Hcl 25 Mg Tablet)? 25 mg PO Q6H PRN Anxiety DC Quetiapine qhs; pt does not want for day to day events (see below)... HOSPITAL COURSE 02/24: Ct treatment plan 02/25: Ct Rx plan. May need committment. Lacks insight and is non compliant with meds. 02/26: Pt adamantly does not want to increase haldol or depakote. Will start seroquel 300 mg QHS for sx of psychotic depression, has not had adequate trial on seroquel. May help with poor sleep. 02/27: Pt has been refusing all meds; AH complaints but denies any SI/HI and his demonstrate safe behaviors on the unit 02/28 retracted 3 day, remains preoccupied with auditory hallucinations of his neighbors and delusional thoughts that his neighbors are persecuting him agrees to stay for treatment; considering clozapine 03/01 Angry and demanding discharge and 3 day notice placed; difficult to engage; no insight.? Refused morning dose of Haldol.? At said he is taking clozapine before and resisted reality testing; however said will still consider 03/02 patient willingly taking clozapine 03/06 patient intermittently takes clozapine; he is disorganized in behavior and thought, intermittently yelling and accusing staff and posturing and threatening staff.? Patient struggles to understand that his rent is paid for; while talking about a specific topic, patient will intermittently respond with a disorganized irrelevant answer.? Patient has failed monotherapy with Seroquel, Palliperidone, Risperdal and Haldol.? Will continue to titrate clozapine as patient is willing to see if this can be effective.? Patient has a 3 day notice due today 03/06/2022.? Team finds that patient is unstable and not safe to return the community as he has ongoing auditory hallucinations and paranoid delusional thoughts that about his neighbors plotting to hurt him.? Will file for Civil commitment; also discussed is that patient may need long-term admission to better establish stability. 03/08 patient disorganized; refused labs making it difficult to titrate clozapine.? Will continue to trying get patient to allow labs 03/09 remains disorganized, sometimes adhering to treatment other times refusing it without any clear pattern.? Patient is not amenable to logical explanation and his engagement in tx is unpredictable making dosing with Clozapine (and depakote) difficult as it requires periodic blood work and controlled titration.? However, Will continue with attempts at clozapine since this seems to be best option for patient to become stabilized 03/10 remains disorganized; won't engage; continues to have AH 03/13 CIVIL COMMITMENT AND SUBSTITUTED JUDGMENT ORDERED 03/16 continue current tx plan 03/19 Patient has moments of insight but quickly descends back into struggles with paranoia, disorganized thinking, thinking AH are real. Patient struggles with taking medication are difficult to predict.?Today he said I feel good, why would it take medication? despite that during the same conversation he also said that he continues to hear his neighbors say mad crap And if they come aft er him something will happen. The Hope is that clozapine as a monotherapy will be sufficient; movie writer discussed case with patient's past inpatient provider and there is no history of bipolar/manic episodes and Depakote only used for impulsivity/anger.? Thus, will lower Depakote to a 1000 mg q.h.s. With clozapine, it may be easier for patient to tolerate single dosing so will see if moving the entire dose to bedtime helps with adherence rather than being asked to take medications twice a day.? That said, sometimes patient wakes up in the morning and demands his morning medications so it is difficult to know The best way to mitigate his his anxiety around this issue. 03/26 patient has been refusing Depakote; since he does not have history of bipolar disorder manic episodes and this medication has had limited effect, will just discontinue for now and move forward with seen of clozapine can be effective on its own; will also DC Haldol Since patient refuses; at this point might as well see if clozapine by itself can be effective as Haldol has only ever Seemed to be minimally helpful. 03/27 denies auditory hallucinations but remains without any insight and saying that he will not take medications when he goes home because he is good. 03/28 Patient vacillates between being irritable and calm; sometimes he says he will take his medications when he goes home other times he says he is doing fine and does not need it. It is not clear if patient still hears auditory hallucinations or if they have resolved as his reporting is inconsistent. It remains necessary for patient to go to a long-term facility for continued medication management and to have a longer time without symptoms. 04/04 (not 04/05) patient overall more calm and excepting of being on the unit, waiting for further stabilization and outpatient services to be set up before returning to the community; does not want to go to [facility].? Patient's improvement is despite the fact that both Haldol and Depakote have been discontinued; off these medications he is less sedated and up earlier in the day.? Patient denies auditory hallucinations.? Intermittently he can accept that AH has resolved due to medication, but he does not have insight into presence of psychiatric disorder and need for ongoing treatment even when feeling stable.? That said, it is not clear that increasing doses of Clozaril would resolve this impaired insight; his improved presentation and desire to avoid side effects gives pause to further titrating clozapine.? Will leave here for now and monitor.? The remains significant concern the patient would discontinue his medications on discharge and team continues to agree that he needs a prolonged experience of being symptom free to connect his ongoing need for medication. 04/05 no change 04/07/22 coverage-continue current plan of care. MED Trials: Seroquel Palliperidone Risperdal Haldol I spent minutes with the patient and/or on the patient floor today, greater than?50% of which was spent counseling/coordinating care. Patient educated on: other Informed Consent: further education needed Reason for contiued inpatient stay Substantial Risk for: inability to function and rapid decompensation
[2022-04-08] MEDS: cloZAPine 100 MG TABLET 350 MG PO (16:03)
[2022-04-08] MEDS: Benztropine Mesylate 0.5 MG TABLET PO (20:08)
[2022-04-08 20:55] VITALS: BP 123/71; PULSE 100; RESP 18; TEMP 36.3; O2SAT 96
--- NOTE | 2022-04-09 16:26 | P.PNPSI_ITS ---
Subjective Subjective Date of Service: 04/09/22 Reason For Visit: schizoaffective Interim History: Denies auditory hallucinations; perseverative on discharge. Asks if he can remain on this unit instead of going to [facility]] Hoping that whenever needs to be organized can take place here. He says he does not know anyone there. 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 Mental Status Exam Mental Status Exam Narrative: Pt is alert and oriented; behavior, more calm and cooperative; dressed in casual attire, wearing casual cloths, adequately groomed and with adequate hygiene; mood more calm; affect constricted; eye contact adequate, appropriate; Speech is normal rate, mostly normal volume (sometimes loud when irritated); normal prosody; no intermittent psychomotor agitation; thought process mostly goal oriented; Thought content is on discharge; seems less perseverative on paranoid delusional worries about being persecuted by his neighbors; Denies SI/HI. denies AH;? Patients insight and judgment are impaired but have improved. Diagnostics Vital Signs (24Hr): Vital Signs - 24 hr 04/08/22 20:55 Temperature 97.3 F Pulse Rate 100 Respiratory Rate 18 Blood Pressure 123/71 Pulse Oximetry 96 BMI result Body Mass Index 36.4 Labs Results: 03/01/22 18:29 Medications Medications Current Medications Acetaminophen (Acetaminophen 325 Mg Tablet) 650 mg PO Q6H PRN PRN Reason: Headache/Pain Mild Scale (1-3) Last Admin: 03/03/22 22:41 Dose: 650 mg Documented by: Al Hydroxide/Mg Hydroxide (Magnesium Hydrox/Alum Hydrox 30 Ml Oral.Susp) 30 ml PO Q6H PRN PRN Reason: Heartburn/Nausea Albuterol Sulfate (Albuterol Sulfate 90 Mcg 8 Gm Inhaler) 2 puff INHALE RQ4H PRN PRN Reason: Shortness Of Breath Benztropine Mesylate (Benztropine Mesylate 0.5 Mg Tablet) 0.5 mg PO BEDTIME JOE Last Admin: 04/08/22 20:08 Dose: 0.5 mg Documented by: Clonidine HCl (Clonidine Hcl 0.1 Mg Tablet) 0.1 mg PO TID PRN; Protocol PRN Reason: hyperarousal Last Admin: 02/28/22 21:47 Dose: 0.1 mg Documented by: Clozapine (Clozapine 100 Mg Tablet) 350 mg PO DAILY@1700 JOE Last Admin: 04/08/22 16:03 Dose: 350 mg Documented by: Diphenhydramine HCl (Diphenhydramine Hcl 25 Mg Tablet) 50 mg PO Q4H PRN PRN Reason: agitation Haloperidol (Haloperidol 5 Mg Tablet) 10 mg PO Q4H PRN PRN Reason: agitation Last Admin: 04/03/22 22:17 Dose: 10 mg Documented by: Haloperidol Lactate (Haloperidol Lactate 5 Mg/Ml Vial) 10 mg IM DAILY PRN PRN Reason: if refuses PO Hydroxyzine HCl (Hydroxyzine Hcl 25 Mg Tablet) 25 mg PO Q6H PRN PRN Reason: Anxiety Last Admin: 04/03/22 22:18 Dose: 25 mg Documented by: Lidocaine HCl (Lidocaine 4 % Cream Kit) 1 appl TOPICAL DAILY PRN; Protocol PRN Reason: prophylactiinjection site pain Magnesium Hydroxide (Milk Of Magnesia 30 Ml Oral.Susp) 30 ml PO DAILY PRN PRN Reason: Constipation Trazodone HCl (Trazodone Hcl 50 Mg Tablet) 50 mg PO BEDTIME PRN PRN Reason: Insomnia Allergies Allergies Allergy/AdvReac Type Severity Reaction Status Date / Time No Known Allergies Allergy Verified 02/19/22 03:39 [No Known Allergies*] Assessment & Plan Assessment & Plan (1) Schizophrenia, paranoid, chronic with acute exacerbation: Status: Acute Code(s): F20.0 - Paranoid schizophrenia Plan HPI: Nura is a 26 y.o. male who carries a dx of paranoid schizophrenia. Hx of , has fixed delusion of believing neighbors are talking about him. Has DMH and ACCS services through [facility]. No Catarino's order. Hx of med non-adherence upon discharge.? 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 He has a hx of multiple inpatient admissions, including 1 about a month ago with very similar presentation, refusing to take meds, asking for discharge and deemed safe to return to the community. He has been re-presenting to [facility] after being discharged with the same presentation, not dangerous, but asking for help and then refusing treatment wanting discharge. He continues to have auditory hallucinations about his neighbor.?Initially, he has not expressed any delusional concerns that his neighbor is going to hurt him, just that his neighbors talking about him and so considered discharge.?However, Patient soon expressed concerns that his neighbors are plotting to harm him and that he is prepared to harm them back if he needs to defend himself.? As patient has presented several times to the emergency room in between admissions he is demonstrating that he is struggling to function in the community.? He has an extensive history of medication noncompliance. He has chronic paranoid delusions and auditory hallucinations that his neighbors are going to hurt him which intermittently expand to thoughts about preparing to defend himself.? Will continue treatment however, given his long hx of refractory psychosis, no insight and poor adherence with medication, team agrees that patient needs a more long-term admission to stabilize to the point where he could successfully live in the community. PLAN: Section 8b Patient Civil Committed and substituted judgment for medications ordered. Medication plan:? Trial of clozapine; overlap Haldol/Depak (minimally helpful) for now; goal to see if clozapine can be effective alone Clozapine? 325mg at DINNER time to mitigate daytime tiredness (to help with adherence; was split dosing) CANNOT REFUSE; COURT ORDERED; GIVE HALDOL 5MG IF REFUSES -patient has improved significantly so will leave at this dose for now ANC 04/06: 2.9 ANC weekly -DISCONTINUED Divalproex ER 1000 mg PO QHS on 03/26; patient has been refusing it and since goal is to see if monotherapy with clozapine can work, will just discontinue it for now; patient does not have history of bipolar disorder or manic episodes and this medication was used with only limited success for behavioral issues. -DISCONTNUE Haloperidol (was 10 mg BID; patient refuses; at this point might as well see if clozapine by itself can be effective as Haldol has only ever Seemed to be minimally helpful and it's not worth forcing an IM) Continue Benztropine Mesylate (Benztropine Mesylate 0.5 Mg Tablet)? 0.5 mg PO qHS; but on clozapine may not need Continue Clonidine HCl (Clonidine Hcl 0.1 Mg Tablet)? 0.1 mg PO TID PRN Reason: hyperarousal Trazodone HCl? 50 mg PO BEDTIME PRN Insomnia Hydroxyzine HCl (Hydroxyzine Hcl 25 Mg Tablet)? 25 mg PO Q6H PRN Anxiety DC Quetiapine qhs; pt does not want for day to day events (see below)... HOSPITAL COURSE 02/24: Ct treatment plan 02/25: Ct Rx plan. May need committment. Lacks insight and is non compliant with meds. 02/26: Pt adamantly does not want to increase haldol or depakote. Will start seroquel 300 mg QHS for sx of psychotic depression, has not had adequate trial on seroquel. May help with poor sleep. 02/27: Pt has been refusing all meds; AH complaints but denies any SI/HI and his demonstrate safe behaviors on the unit 02/28 retracted 3 day, remains preoccupied with auditory hallucinations of his neighbors and delusional thoughts that his neighbors are persecuting him agrees to stay for treatment; considering clozapine 03/01 Angry and demanding discharge and 3 day notice placed; difficult to engage; no insight.? Refused morning dose of Haldol.? At said he is taking clozapine before and resisted reality testing; however said will still consider 03/02 patient willingly taking clozapine 03/06 patient intermittently takes clozapine; he is disorganized in behavior and thought, intermittently yelling and accusing staff and posturing and threatening staff.? Patient struggles to understand that his rent is paid for; while talking about a specific topic, patient will intermittently respond with a disorganized irrelevant answer.? Patient has failed monotherapy with Seroquel, Palliperidone, Risperdal and Haldol.? Will continue to titrate clozapine as patient is willing to see if this can be effective.? Patient has a 3 day notice due today 03/06/2022.? Team finds that patient is unstable and not safe to return the community as he has ongoing auditory hallucinations and paranoid delusional thoughts that about his neighbors plotting to hurt him.? Will file for Civil commitment; also discussed is that patient may need long-term admission to better establish stability. 03/08 patient disorganized; refused labs making it difficult to titrate clozapine.? Will continue to trying get patient to allow labs 03/09 remains disorganized, sometimes adhering to treatment other times refusing it without any clear pattern.? Patient is not amenable to logical explanation and his engagement in tx is unpredictable making dosing with Clozapine (and depakote) difficult as it requires periodic blood work and controlled titration.? However, Will continue with attempts at clozapine since this seems to be best option for patient to become stabilized 03/10 remains disorganized; won't engage; continues to have AH 03/13 CIVIL COMMITMENT AND SUBSTITUTED JUDGMENT ORDERED 03/16 continue current tx plan 03/19 Patient has moments of insight but quickly descends back into struggles with paranoia, disorganized thinking, thinking AH are real. Patient struggles with taking medication are difficult to predict.?Today he said I feel good, why would it take medication? despite that during the same conversation he also said that he continues to hear his neighbors say mad crap And if they come after him something will happen. The Hope is that clozapine as a monotherapy will be sufficient; inspector automatic typewriter discussed case with patient's past inpatient provider and there is no history of bipolar/manic episodes and Depakote only used for impulsivity/anger.? Thus, will lower Depakote to a 1000 mg q.h.s. With clozapine, it may be easier for patient to tolerate single dosing so will see if moving the entire dose to bedtime helps with adherence rather than being asked to take medications twice a day.? That said, sometimes patient wakes up in the morning and demands his morning medications so it is difficult to know The best way to mitigate his his anxiety around this issue. 03/26 patient has been refusing Depakote; since he does not have history of bipolar disorder manic episodes and this medication has had limited effect, will just discontinue for now and move forward with seen of clozapine can be effective on its own; will also DC Haldol Since patient refuses; at this point might as well see if clozapine by itself can be effective as Haldol has only ever Seemed to be minimally helpful. 03/27 denies auditory hallucinations but remains without any insight and saying that he will not take medications when he goes home because he is good. 03/28 Patient vacillates between being irritable and calm; sometimes he says he will take his medications when he goes home other times he says he is doing fine and does not need it. It is not clear if patient still hears auditory hallucinations or if they have resolved as his reporting is inconsistent. It remains necessary for patient to go to a long-term facility for continued medication management and to have a longer time without symptoms. 04/04 (not 04/05) patient overall more calm and excepting of being on the unit, waiting for further stabilization and outpatient services to be set up before returning to the community; does not want to go to [facility]? Patient's improvement is despite the fact that both Haldol and Depakote have been discontinued; off these medications he is less sedated and up earlier in the day.? Patient denies auditory hallucinations.? Intermittently he can accept that AH has resolved due to medication, but he does not have insight into presence of psychiatric disord er and need for ongoing treatment even when feeling stable.? That said, it is not clear that increasing doses of Clozaril would resolve this impaired insight; his improved presentation and desire to avoid side effects gives pause to further titrating clozapine.? Will leave here for now and monitor.? The remains significant concern the patient would discontinue his medications on discharge and team continues to agree that he needs a prolonged experience of being symptom free to connect his ongoing need for medication. 04/09 no changes MED Trials: Seroquel Palliperidone Risperdal Haldol I spent minutes with the patient and/or on the patient floor today, greater than?50% of which was spent counseling/coordinating care. Patient educated on: diagnosis Informed Consent: further education needed Reason for contiued inpatient stay Substantial Risk for: rapid decompensation
[2022-04-09] MEDS: cloZAPine 100 MG TABLET 350 MG PO (18:07)
[2022-04-09] MEDS: hydrOXYzine HCL 25 MG TABLET PO (19:50)
[2022-04-09] MEDS: Benztropine Mesylate 0.5 MG TABLET PO (19:50)
[2022-04-10 16:51] VITALS: RESP 16
--- NOTE | 2022-04-10 16:57 | P.PNPSI_ITS ---
Subjective Subjective Date of Service: 04/10/22 Reason For Visit: schizoaffective Interim History: Patient friendly, calm. He asks over and over when the meeting will take place, referring to ACCS set up for outpatient services. Patient asks even though this is explained to him multiple times by keno writer / runner and social worker aide each. However he eventually seems to accept that it is going to take more time and the exact date is not known. He also says he needs to know when he is going to discharge so that his cousin can become up, something he repeats several times a day as well. Otherwise patient is in appropriate behavioral control continues to deny AH. Mental Status Exam Mental Status Exam Narrative: Pt is alert and oriented; behavior, more calm and cooperative; dressed in casual attire, wearing casual cloths, adequately groomed and with adequate hygiene; mood more calm; affect constricted; eye contact adequate, appropriate; Speech is normal rate, mostly normal volume (sometimes loud when irritated); normal prosody; no intermittent psychomotor agitation; thought process mostly goal oriented; Thought content is on discharge; seems less perseverative on paranoid delusional worries about being persecuted by his neighbors; Denies SI/HI. denies AH;? Patients insight and judgment are impaired but have improved. Diagnostics Vital Signs (24Hr): Vital Signs - 24 hr 04/10/22 16:51 Respiratory Rate 16 BMI result Body Mass Index 36.4 Labs Results: 03/01/22 18:29 Medications Medications Current Medications Acetaminophen (Acetaminophen 325 Mg Tablet) 650 mg PO Q6H PRN PRN Reason: Headache/Pain Mild Scale (1-3) Last Admin: 03/03/22 22:41 Dose: 650 mg Documented by: Al Hydroxide/Mg Hydroxide (Magnesium Hydrox/Alum Hydrox 30 Ml Oral.Susp) 30 ml PO Q6H PRN PRN Reason: Heartburn/Nausea Albuterol Sulfate (Albuterol Sulfate 90 Mcg 8 Gm Inhaler) 2 puff INHALE RQ4H PRN PRN Reason: Shortness Of Breath Benztropine Mesylate (Benztropine Mesylate 0.5 Mg Tablet) 0.25 mg PO BEDTIME JOE Clonidine HCl (Clonidine Hcl 0.1 Mg Tablet) 0.1 mg PO TID PRN; Protocol PRN Reason: hyperarousal Last Admin: 02/28/22 21:47 Dose: 0.1 mg Documented by: Clozapine (Clozapine 100 Mg Tablet) 350 mg PO DAILY@1700 JOE Last Admin: 04/09/22 18:07 Dose: 350 mg Documented by: Diphenhydramine HCl (Diphenhydramine Hcl 25 Mg Tablet) 50 mg PO Q4H PRN PRN Reason: agitation Haloperidol (Haloperidol 5 Mg Tablet) 10 mg PO Q4H PRN PRN Reason: agitation Last Admin: 04/03/22 22:17 Dose: 10 mg Documented by: Haloperidol Lactate (Haloperidol Lactate 5 Mg/Ml Vial) 10 mg IM DAILY PRN PRN Reason: if refuses PO Hydroxyzine HCl (Hydroxyzine Hcl 25 Mg Tablet) 25 mg PO Q6H PRN PRN Reason: Anxiety Last Admin: 04/09/22 19:50 Dose: 25 mg Documented by: Lidocaine HCl (Lidocaine 4 % Cream Kit) 1 appl TOPICAL DAILY PRN; Protocol PRN Reason: prophylactiinjection site pain Magnesium Hydroxide (Milk Of Magnesia 30 Ml Oral.Susp) 30 ml PO DAILY PRN PRN Reason: Constipation Trazodone HCl (Trazodone Hcl 50 Mg Tablet) 50 mg PO BEDTIME PRN PRN Reason: Insomnia Allergies Allergies Allergy/AdvReac Type Severity Reaction Status Date / Time No Known Allergies Allergy Verified 02/19/22 03:39 [No Known Allergies*] Assessment & Plan Assessment & Plan (1) Schizophrenia, paranoid, chronic with acute exacerbation: Status: Acute Code(s): F20.0 - Paranoid schizophrenia Plan HPI: Nura is a 26 y.o. male who carries a dx of paranoid schizophrenia. Hx of , has fixed delusion of believing neighbors are talking about him. Has DMH and ACCS services through [facility]. No Catarino's order. Hx of med non-adherence upon discharge.? Patient has been repeatedly coming to the emergency room asking for help with auditory hallucinations Formulation: dx Schizophrenia, paranoid type [employer] discussed case with colleagues who have worked with patient in the past and also with staff on the unit for current admission. He has a hx of multiple inpatient admissions, including 1 about a month ago with very similar presentation, refusing to take meds, asking for discharge and deemed safe to return to the community. He has been re-presenting to [facility] after being discharged with the same presentation, not dangerous, but asking for help and then refusing treatment wanting discharge. He continues to have auditory hallucinations about his neighbor.?Initially, he has not expressed any delusional concerns that his neighbor is going to hurt him, just that his neighbors talking about him and so considered discharge.?However, Patient soon expressed concerns that his neighbors are plotting to harm him and that he is prepared to harm them back if he needs to defend himself.? As patient has presented several times to the emergency room in between admissions he is demonstrating that he is struggling to function in the community.? He has an extensive history of medication noncompliance. He has chronic paranoid delusions and auditory hallucinations that his neighbors are going to hurt him which i ntermittently expand to thoughts about preparing to defend himself.? Will continue treatment however, given his long hx of refractory psychosis, no insight and poor adherence with medication, team agrees that patient needs a more long-term admission to stabilize to the point where he could successfully live in the community. PLAN: Section 8b Patient Civil Committed and substituted judgment for medications ordered. Medication plan:? Trial of clozapine; overlap Haldol/Depak (minimally helpful) for now; goal to see if clozapine can be effective alone Clozapine? 325mg at DINNER time to mitigate daytime tiredness (to help with adherence; was split dosing) CANNOT REFUSE; COURT ORDERED; GIVE HALDOL 5MG IF REFUSES -patient has improved significantly so will leave at this dose for now ANC 04/06: 2.9 ANC weekly -DISCONTINUED Divalproex ER 1000 mg PO QHS on 03/26; patient has been refusing it and since goal is to see if monotherapy with clozapine can work, will just discontinue it for now; patient does not have history of bipolar disorder or man ic episodes and this medication was used with only limited success for behavioral issues. -DISCONTNUE Haloperidol (was 10 mg BID; patient refuses; at this point might as well see if clozapine by itself can be effective as Haldol has only ever Seemed to be minimally helpful and it's not worth forcing an IM) Continue Benztropine Mesylate (Benztropine Mesylate 0.5 Mg Tablet)? 0.5 mg PO qHS; but on clozapine may not need Continue Clonidine HCl (Clonidine Hcl 0.1 Mg Tablet)? 0.1 mg PO TID PRN Reason: hyperarousal Trazodone HCl? 50 mg PO BEDTIME PRN Insomnia Hydroxyzine HCl (Hydroxyzine Hcl 25 Mg Tablet)? 25 mg PO Q6H PRN Anxiety DC Quetiapine qhs; pt does not want for day to day events (see below)... HOSPITAL COURSE 02/24: Ct treatment plan 02/25: Ct Rx plan. May need committment. Lacks insight and is non compliant with meds. 02/26: Pt adamantly does not want to increase haldol or depakote. Will start seroquel 300 mg QHS for sx of psychotic depression, has not had adequate trial on seroquel. May help with poor sleep. 02/27: Pt has been refusing all meds; AH complaints but denies any SI/HI and his demonstrate safe behaviors on the unit 02/28 retracted 3 day, remains preoccupied with auditory hallucinations of his neighbors and delusional thoughts that his neighbors are persecuting him agrees to stay for treatment; considering clozapine 03/01 Angry and demanding discharge and 3 day notice placed; difficult to engage; no insight.? Refused morning dose of Haldol.? At said he is taking clozapine before and resisted reality testing; however said will still consider 03/02 patient willingly taking clozapine 03/06 patient intermittently takes clozapine; he is disorganized in behavior and thought, intermittently yelling and accusing staff and posturing and threatening staff.? Patient struggles to understand that his rent is paid for; while talking about a specific topic, patient will intermittently respond with a disorganized irrelevant answer.? Patient has failed monotherapy with Seroquel, Palliperidone, Risperdal and Haldol.? Will continue to titrate clozapine as patient is willing to see if this can be effective.? Patient has a 3 day notice due today 03/06/2022.? Team finds that patient is unstable and not safe to return the co mmunity as he has ongoing auditory hallucinations and paranoid delusional thoughts that about his neighbors plotting to hurt him.? Will file for Civil commitment; also discussed is that patient may need long-term admission to better establish stability. 03/08 patient disorganized; refused labs making it difficult to titrate clozapine.? Will continue to trying get patient to allow labs 03/09 remains disorganized, sometimes adhering to treatment other times refusing it without any clear pattern.? Patient is not amenable to logical explanation and his engagement in tx is unpredictable making dosing with Clozapine (and depakote) difficult as it requires periodic blood work and controlled titration.? However, Will continue with attempts at clozapine since this seems to be best option for patient to become stabilized 03/10 remains disorganized; won't engage; continues to have AH 03/13 CIVIL COMMITMENT AND SUBSTITUTED JUDGMENT ORDERED 03/16 continue current tx plan 03/19 Patient has moments of insight but quickly descends back into struggles with paranoia, disorganized thinking, thinking AH are real. Patient struggles with taking medication are difficult to predict.?Today he said I feel good, why would it take medication? despite that during the same conversation he also said that he continues to hear his neighbors say mad crap And if they come after him something will happen. The Hope is that clozapine as a monotherapy will be sufficient; keno writer / runner discussed case with patient's past inpatient provider and there is no history of bipolar/manic episodes and Depakote only used for impulsivity/anger.? Thus, will lower Depakote to a 1000 mg q.h.s. With clozapine, it may be easier for patient to tolerate single dosing so will see if moving the entire dose to bedtime helps with adherence rather than being asked to take medications twice a day.? That said, sometimes patient wakes up in the morning and demands his morning medications so it is difficult to know The best way to mitigate his his anxiety around this issue. 03/26 patient has been refusing Depakote; since he does not have history of bipolar disorder manic episodes and this medication has had limited effect, will just discontinue for now and move forward with seen of clozapine can be effective on its own; will also DC Haldol Since patient refuses; at this point might as well see if clozapine by itself can be effective as Haldol has only ever Seemed to be minimally helpful. 03/27 denies auditory hallucinations but remains without any insight and saying that he will not take medications when he goes home because he is good. 03/28 Patient vacillates between being irritable and calm; sometimes he says he will take his medications when he goes home other times he says he is doing fine and does not need it. It is not clear if patient still hears auditory hallucinations or if they have resolved as his reporting is inconsistent. It remains necessary for patient to go to a long-term facility for continued medication management and to have a longer time without symptoms. 04/04 (not 04/05) patient overall more calm and excepting of being on the unit, waiting for further stabilization and outpatient services to be set up before returning to the community; does not want to go to [facility].? Patient's improvement is despite the fact that both Haldol and Depakote have been discontinued; off these medications he is less sedated and up earlier in the day.? Patient denies auditory hallucinations.? Intermittently he can accept that AH has resolved due to medication, but he does not have insight into presence of psychiatric disorder and need for ongoing treatment even when feeling stable.? That said, it is not clear that increasing doses of Clozaril would resolve this impaired insight; his improved presentation and desire to avoid side effects gives pause to further titrating clozapine.? Will leave here for now and monitor.? The remains significant concern the patient would discontinue his medications on discharge and team continues to agree that he needs a prolonged experience of being symptom free to connect his ongoing need for medication. 04/09 no changes MED Trials: Seroquel Palliperidone Risperdal Haldol I spent minutes with the patient and/or on the patient floor today, gr eater than?50% of which was spent counseling/coordinating care. Patient educated on: therapeutic strategies Informed Consent: further education needed Reason for contiued inpatient stay Substantial Risk for: rapid decompensation
[2022-04-10] MEDS: cloZAPine 100 MG TABLET 350 MG PO (18:33)
[2022-04-10] MEDS: Benztropine Mesylate 0.5 MG TABLET 0.25 MG PO (21:27)
--- NOTE | 2022-04-11 10:39 | HO.PSYCHPN ---
Subjective Subjective Date of Service: 04/11/22 Reason For Visit: schizoaffective Interim History: no change Mental Status Exam Mental Status Exam Narrative: Pt is alert and oriented; behavior, more calm and cooperative; dressed in casual attire, wearing casual cloths, adequately groomed and with adequate hygiene; mood more calm; affect constricted; eye contact adequate, appropriate; Speech is normal rate, mostly normal volume (sometimes loud when irritated); normal prosody; no intermittent psychomotor agitation; thought process mostly goal oriented; Thought content is on discharge; seems less perseverative on paranoid delusional worries about being persecuted by his neighbors; Denies SI/HI. denies AH;? Patients insight and judgment are impaired but have improved. Diagnostics Vital Signs (24Hr): Vital Signs - 24 hr 04/10/22 16:51 Respiratory Rate 16 BMI result Body Mass Index 36.4 Labs Results: 03/01/22 18:29 Medications Medications Current Medications Acetaminophen (Acetaminophen 325 Mg Tablet) 650 mg PO Q6H PRN PRN Reason: Headache/Pain Mild Scale (1-3) Last Admin: 03/03/22 22:41 Dose: 650 mg Al Hydroxide/Mg Hydroxide (Magnesium Hydrox/Alum Hydrox 30 Ml Oral.Susp) 30 ml PO Q6H PRN PRN Reason: Heartburn/Nausea Albuterol Sulfate (Albuterol Sulfate 90 Mcg 8 Gm Inhaler) 2 puff INHALE RQ4H PRN PRN Reason: Shortness Of Breath Benztropine Mesylate (Benztropine Mesylate 0.5 Mg Tablet) 0.25 mg PO BEDTIME [facility] Last Admin: 04/10/22 21:27 Dose: 0.25 mg Clonidine HCl (Clonidine Hcl 0.1 Mg Tablet) 0.1 mg PO TID PRN; Protocol PRN Reason: hyperarousal Last Admin: 02/28/22 21:47 Dose: 0.1 mg Clozapine (Clozapine 100 Mg Tablet) 350 mg PO DAILY@1700 [facility] Last Admin: 04/10/22 18:33 Dose: 350 mg Diphenhydramine HCl (Diphenhydramine Hcl 25 Mg Tablet) 50 mg PO Q4H PRN PRN Reason: agitation Haloperidol (Haloperidol 5 Mg Tablet) 10 mg PO Q4H PRN PRN Reason: agitation Last Admin: 04/03/22 22:17 Dose: 10 mg Haloperidol Lactate (Haloperidol Lactate 5 Mg/Ml Vial) 10 mg IM DAILY PRN PRN Reason: if refuses PO Hydroxyzine HCl (Hydroxyzine Hcl 25 Mg Tablet) 25 mg PO Q6H PRN PRN Reason: Anxiety Last Admin: 04/09/22 19:50 Dose: 25 mg Lidocaine HCl (Lidocaine 4 % Cream Kit) 1 appl TOPICAL DAILY PRN; Protocol PRN Reason: prophylactiinjection site pain Magnesium Hydroxide (Milk Of Magnesia 30 Ml Oral.Susp) 30 ml PO DAILY PRN PRN Reason: Constipation Trazodone HCl (Trazodone Hcl 50 Mg Tablet) 50 mg PO BEDTIME PRN PRN Reason: Insomnia Allergies Allergies Allergy/AdvReac Type Severity Reaction Status Date / Time No Known Allergies Allergy Verified 02/19/22 03:39 [No Known Allergies*] Assessment & Plan Assessment & Plan (1) Schizophrenia, paranoid, chronic with acute exacerbation: Status: Acute Code(s): F20.0 - Paranoid schizophrenia Plan HPI: Nura is a 26 y.o. male who carries a dx of paranoid schizophrenia. Hx of , has fixed delusion of believing neighbors are talking about him. Has DMH and ACCS services through [facility]. No Catarino's order. Hx of med non-adherence upon discharge.? 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 He has a hx of multiple inpatient admissions, including 1 about a month ago with very similar presentation, refusing to take meds, asking for discharge and deemed safe to return to the community. He has been re-presenting to [facility] after being discharged with the same presentation, not dangerous, but asking for help and then refusing treatment wanting discharge. He continues to have auditory hallucinations about his neighbor.?Initially, he has not expressed any delusional concerns that his neighbor is going to hurt him, just that his neighbors talking about him and so considered discharge.?However, Patient soon expressed concerns that his neighbors are plotting to harm him and that he is prepared to harm them back if he needs to defend himself.? As patient has presented several times to the emergency room in between admissions he is demonstrating that he is struggling to function in the community.? He has an extensive history of medication noncompliance. He has chronic paranoid delusions and auditory hallucinations that his neighbors are going to hurt him which intermittently expand to thoughts about preparing to defend himself.? Will continue treatment however, given his long hx of refractory psychosis, no insight and poor adherence with medication, team agrees that patient needs a more long-term admission to stabilize to the point where he could successfully live in the community. PLAN: Section 8b Patient Civil Committed and substituted judgment for medications ordered. Medication plan:? Trial of clozapine; overlap Haldol/Depak (minimally helpful) for now; goal to see if clozapine can be effective alone Clozapine? 325mg at DINNER time to mitigate daytime tiredness (to help with adherence; was split dosing) CANNOT REFUSE; COURT ORDERED; GIVE HALDOL 5MG IF REFUSES -patient has improved significantly so will leave at this dose for now ANC 04/06: 2.9 ANC weekly -DISCONTINUED Divalproex ER 1000 mg PO QHS on 03/26; patient has been refusing it and since goal is to see if monotherapy with clozapine can work, will just discontinue it for now; patient does not have history of bipolar disorder or manic episodes and this medication was used with only limited success for behavioral issues. -DISCONTNUE Haloperidol (was 10 mg BID; patient refuses; at this point might as well see if clozapine by itself can be effective as Haldol has only ever Seemed to be minimally helpful and it's not worth forcing an IM) Continue Benztropine Mesylate (Benztropine Mesylate 0.5 Mg Tablet)? 0.5 mg PO qHS; but on clozapine may not need Continue Clonidine HCl (Clonidine Hcl 0.1 Mg Tablet)? 0.1 mg PO TID PRN Reason: hyperarousal Trazodone HCl? 50 mg PO BEDTIME PRN Insomnia Hydroxyzine HCl (Hydroxyzine Hcl 25 Mg Tablet)? 25 mg PO Q6H PRN Anxiety DC Quetiapine qhs; pt does not want for day to day events (see below)... HOSPITAL COURSE 02/24: Ct treatment plan 02/25: Ct Rx plan. May need committment. Lacks insight and is non compliant with meds. 02/26: Pt adamantly does not want to increase haldol or depakote. Will start seroquel 300 mg QHS for sx of psychotic depression, has not had adequate trial on seroquel. May help with poor sleep. 02/27: Pt has been refusing all meds; AH complaints but denies any SI/HI and his demonstrate safe behaviors on the unit 02/28 retracted 3 day, remains preoccupied with auditory hallucinations of his neighbors and delusional thoughts that his neighbors are persecuting him agrees to stay for treatment; considering clozapine 03/01 Angry and demanding discharge and 3 day notice placed; difficult to engage; no insight.? Refused morning dose of Haldol.? At said he is taking clozapine before and resisted reality testing; however said will still consider 03/02 patient willingly taking clozapine 03/06 patient intermittently takes clozapine; he is disorganized in behavior and thought, intermittently yelling and accusing staff and posturing and threatening staff.? Patient struggles to understand that his rent is paid for; while talking about a specific topic, patient will intermittently respond with a disorganized irrelevant answer.? Patient has failed monotherapy with Seroquel, Palliperidone, Risperdal and Haldol.? Will continue to titrate clozapine as patient is willing to see if this can be effective.? Patient has a 3 day notice due today 03/06/2022.? Team finds that patient is unstable and not safe to return the community as he has ongoing auditory hallucinations and paranoid delusional thoughts that about his neighbors plotting to hurt him.? Will file for Civil commitment; also discussed is that patient may need long-term admission to better establish stability. 03/08 patient disorganized; refused labs making it difficult to titrate clozapine.? Will continue to trying get patient to allow labs 03/09 remains disorganized, sometimes adhering to treatment other times refusing it without any clear pattern.? Patient is not amenable to logical explanation and his engagement in tx is unpredictable making dosing with Clozapine (and depakote) difficult as it requires periodic blood work and controlled titration.? However, Will continue with attempts at clozapine since this seems to be best option for patient to become stabilized 03/10 remains disorganized; won't engage; continues to have AH 03/13 CIVIL COMMITMENT AND SUBSTITUTED JUDGMENT ORDERED 03/16 continue current tx plan 03/19 Patient has moments of insight but quickly descends back into struggles with paranoia, disorganized thinking, thinking AH are real. Patient struggles with taking medication are difficult to predict.?Today he said I feel good, why would it take medication? despite that during the same conversation he also said that he continues to hear his neighbors say mad crap And if they come after him something will happen. The Hope is that clozapine as a monotherapy will be sufficient; television script writer discussed case with patient's past inpatient provider and there is no history of bipolar/manic episodes and Depakote only used for impulsivity/anger.? Thus, will lower Depakote to a 1000 mg q.h.s. With clozapine, it may be easier for patient to tolerate single dosing so will see if moving the entire dose to bedtime helps with adherence rather than being asked to take medications twice a day.? That said, sometimes patient wakes up in the morning and demands his morning medications so it is difficult to know The best way to mitigate his his anxiety around this issue. 03/26 patient has been refusing Depakote; since he does not have history of bipolar disorder manic episodes and this medication has had limited effect, will just discontinue for now and move forward with seen of clozapine can be effective on its own; will also DC Haldol Since patient refuses; at this point might as well see if clozapine by itself can be effective as Haldol has only ever Seemed to be minimally helpful. 03/27 denies auditory hallucinations but remains without any insight and saying that he will not take medications when he goes home because he is good. 03/28 Patient vacillates between being irritable and calm; sometimes he says he will take his medications when he goes home other times he says he is doing fine and does not need it. It is not clear if patient still hears auditory hallucinations or if they have resolved as his reporting is inconsistent. It remains necessary for patient to go to a long-term facility for continued medication management and to have a longer time without symptoms. 04/04 (not 04/05) patient overall more calm and excepting of being on the unit, waiting for further stabilization and outpatient services to be set up before returning to the community; does not want to go to [facility].? Patient's improvement is despite the fact that both Haldol and Depakote have been discontinued; off these medications he is less sedated and up earlier in the day.? Patient denies auditory hallucinations.? Intermittently he can accept that AH has resolved due to medication, but he does not have insight into presence of psychiatric disorder and need for ongoing treatment even when feeling stable.? That said, it is not clear that increasing doses of Clozaril would resolve this impaired insight; his improved presentation and desire to avoid side effects gives pause to further titrating clozapine.? Will leave here for now and monitor.? The remains significant concern the patient would discontinue his medications on discharge and team continues to agree that he needs a prolonged experience of being symptom free to connect his ongoing need for medication. 04/09 no changes MED Trials: Seroquel Palliperidone Risperdal Haldol I spent minutes with the patient and/or on the patient floor today, greater than?50% of which was spent counseling/coordinating care. Patient educated on: therapeutic strategies Informed Consent: further education needed Reason for contiued inpatient stay Substantial Risk for: inability to function and rapid decompensation
[2022-04-11] MEDS: cloZAPine 100 MG TABLET 350 MG PO (16:01)
[2022-04-11] MEDS: hydrOXYzine HCL 25 MG TABLET PO (22:27)
[2022-04-11] MEDS: Benztropine Mesylate 0.5 MG TABLET 0.25 MG PO (22:27)
[2022-04-12 12:05] VITALS: BMI 36.2
[2022-04-12] MEDS: cloZAPine 100 MG TABLET 350 MG PO (15:32)
[2022-04-12 16:24] VITALS: BP 127/86; PULSE 123
--- NOTE | 2022-04-12 17:41 | P.PNPSI_ITS ---
Subjective Subjective Date of Service: 04/12/22 Reason For Visit: schizoaffective Interim History: Patient shared that he has been having erectile dysfunction which he thinks is due to medications and started current few weeks ago. Patient asked again of the meeting could be held here on M 5 so that he would not have to go to [facility]; writer editor again explained that team will do what is possible to have this take place so that services can be set up while on the unit here. Otherwise patient has remained in good behavioral and impulse control Mental Status Exam Mental Status Exam Narrative: Pt is alert and oriented; behavior, more calm and cooperative; dressed in casual attire, wearing casual cloths, adequately groomed and with adequate hygiene; mood more calm; affect constricted; eye contact adequate, appropriate; Speech is normal rate, mostly normal volume (sometimes loud when irritated); normal prosody; no intermittent psychomotor agitation; thought process mostly goal oriented; Thought content is on discharge; seems less perseverative on paranoid delusional worries about being persecuted by his neighbors; Denies SI/HI. denies AH;? Patients insight and judgment are impaired but have improved. Diagnostics Vital Signs (24Hr): Vital Signs - 24 hr 04/13/22 11:13 04/13/22 16:34 Temperature 97.9 F Pulse Rate 98 Respiratory Rate 20 16 Pulse Oximetry 95 Oxygen Delivery Method Room Air BMI result Body Mass Index 36.2 Labs Results: 03/01/22 18:29 Labs: Laboratory Results - last 48 hr 04/13/22 11:44 Absolute Neuts (auto) 2.9 Medications Medications Current Medications Acetaminophen (Acetaminophen 325 Mg Tablet) 650 mg PO Q6H PRN PRN Reason: Headache/Pain Mild Scale (1-3) Last Admin: 03/03/22 22:41 Dose: 650 mg Al Hydroxide/Mg Hydroxide (Magnesium Hydrox/Alum Hydrox 30 Ml Oral.Susp) 30 ml PO Q6H PRN PRN Reason: Heartburn/Nausea Albuterol Sulfate (Albuterol Sulfate 90 Mcg 8 Gm Inhaler) 2 puff INHALE RQ4H PRN PRN Reason: Shortness Of Breath Benztropine Mesylate (Benztropine Mesylate 0.5 Mg Tablet) 0.25 mg PO BEDTIME [facility] Last Admin: 04/13/22 15:54 Dose: Not Given Clonidine HCl (Clonidine Hcl 0.1 Mg Tablet) 0.1 mg PO TID PRN; Protocol PRN Reason: hyperarousal Last Admin: 02/28/22 21:47 Dose: 0.1 mg Clozapine (Clozapine 100 Mg Tablet) 350 mg PO DAILY@1700 JOE Last Admin: 04/13/22 15:27 Dose: 350 mg Diphenhydramine HCl (Diphenhydramine Hcl 25 Mg Tablet) 50 mg PO Q4H PRN PRN Reason: agitation Haloperidol (Haloperidol 5 Mg Tablet) 10 mg PO Q4H PRN PRN Reason: agitation Last Admin: 04/03/22 22:17 Dose: 10 mg Haloperidol Lactate (Haloperidol Lactate 5 Mg/Ml Vial) 10 mg IM DAILY PRN PRN Reason: if refuses PO Hydroxyzine HCl (Hydroxyzine Hcl 25 Mg Tablet) 25 mg PO Q6H PRN PRN Reason: Anxiety Last Admin: 04/11/22 22:27 Dose: 25 mg Lidocaine HCl (Lidocaine 4 % Cream Kit) 1 appl TOPICAL DAILY PRN; Protocol PRN Reason: prophylactiinjection site pain Magnesium Hydroxide (Milk Of Magnesia 30 Ml Oral.Susp) 30 ml PO DAILY PRN PRN Reason: Constipation Trazodone HCl (Trazodone Hcl 50 Mg Tablet) 50 mg PO BEDTIME PRN PRN Reason: Insomnia Allergies Allergies Allergy/AdvReac Type Severity Reaction Status Date / Time No Known Allergies Allergy Verified 02/19/22 03:39 [No Known Allergies*] Assessment & Plan Assessment & Plan (1) Schizophrenia, paranoid, chronic with acute exacerbation: Status: Acute Code(s): F20.0 - Paranoid schizophrenia Plan HPI: Nura is a 26 y.o. male who carries a dx of paranoid schizophrenia. Hx of AH, has fixed delusion of believing neighbors are talking about him. Has DMH and ACCS services through [facility]. No Catarino's order. Hx of med non-adherence upon disch arge.? Patient has been repeatedly coming to the emergency room asking for help with auditory hallucinations Formulation: dx Schizophrenia, paranoid type [employer] discussed case with colleagues who have worked with patient in the past and also with staff on the unit for current admission. He has a hx of multiple inpatient admissions, including 1 about a month ago with very similar presentation, refusing to take meds, asking for discharge and deemed safe to return to the community. He has been re-presenting to [facility] ED after being discharged with the same presentation, not dangerous, but asking for help and then refusing treatment wanting discharge. He continues to have auditory hallucinations about his neighbor.?Initially, he has not expressed any delusional concerns that his neighbor is going to hurt him, just that his neighbors talking about him and so considered discharge.?However, Patient soon expressed concerns that his neighbors are plotting to harm him and that he is prepared to harm them back if he needs to defend himself.? As patient has presented several times to the emergency room in between admissions he is demonstrating that he is struggling to function in the community.? He has an extensive history of medication noncompliance. He has chronic paranoid delusions and auditory hallucinations that his neighbors are going to hurt him which intermittently expand to thoughts about preparing to defend himself.? Will continue treatment however, given his long hx of refractory psychosis, no insight and poor adherence with medication, team agrees that patient needs a more long-term admission to stabilize to the point where he could successfully live in the community. PLAN: Section 8b Patient Civil Committed and substituted judgment for medications ordered. Medication plan:? Trial of clozapine; overlap Haldol/Depak (minimally helpful) for now; goal to see if clozapine can be effective alone Clozapine? 325mg at DINNER time to mitigate daytime tiredness (to help with adherence; was split dosing) CANNOT REFUSE; COURT ORDERED; GIVE HALDOL 5MG IF REFUSES -patient has improved significantly so will leave at this dose for now ANC 04/06: 2.9 ANC weekly -DISCONTINUED Divalproex ER 1000 mg PO QHS on 03/26; patient has been refusing it and since goal is to see if monotherapy with clozapine can work, will just discontinue it for now; patient does not have history of bipolar disorder or manic episodes and this medication was used with only limited success for behavioral issues. -DISCONTNUE Haloperidol (was 10 mg BID; patient refuses; at this point might as well see if clozapine by itself can be effective as Haldol has only ever Seemed to be minimally helpful and it's not worth forcing an IM) Continue Benztropine Mesylate (Benztropine Mesylate 0.5 Mg Tablet)? 0.5 mg PO qHS; but on clozapine may not need Continue Clonidine HCl (Clonidine Hcl 0.1 Mg Tablet)? 0.1 mg PO TID PRN Reason: hyperarousal Trazodone HCl? 50 mg PO BEDTIME PRN Insomnia Hydroxyzine HCl (Hydroxyzine Hcl 25 Mg Tablet)? 25 mg PO Q6H PRN Anxiety DC Quetiapine qhs; pt does not want for day to day events (see below)... HOSPITAL COURSE 02/24: Ct treatment plan 02/25: Ct Rx plan. May need committment. Lacks insight and is non compliant with meds. 02/26: Pt adamantly does not want to increase haldol or depakote. Will start seroquel 300 mg QHS for sx of psychotic depression, has not had adequate trial on seroquel. May help with poor sleep. 02/27: Pt has been refusing all meds; AH complaints but denies any SI/HI and his demonstrate safe behaviors on the unit 02/28 retracted 3 day, remains preoccupied with auditory hallucinations of his neighbors and delusional thoughts that his neighbors are persecuting him agrees to stay for treatment; considering clozapine 03/01 Angry and demanding discharge and 3 day notice placed; difficult to engage; no insight.? Refused morning dose of Haldol.? At said he is taking clozapine before and resisted reality testing; however said will still consider 03/02 patient willingly taking clozapine 03/06 patient intermittently takes clozapine; he is disorganized in behavior and thought, intermittently yelling and accusing staff and posturing and threatening staff.? Patient struggles to understand that his rent is paid for; while talking about a specific topic, patient will intermittently respond with a disorganized irrelevant answer.? Patient has failed monotherapy with Seroquel, Palliperidone, Risperdal and Haldol.? Will continue to titrate clozapine as patient is willing to see if this can be effective.? Patient has a 3 day notice due today 03/06/2022.? Team finds that patient is unstable and not safe to return the community as he has ongoing auditory hallucinations and paranoid delusional thoughts that about his neighbors plotting to hurt him.? Will file for Civil commitment; also discussed is that patient may need long-term admission to better establish stability. 03/08 patient disorganized; refused labs making it difficult to titrate clozapine.? Will continue to trying get patient to allow labs 03/09 remains disorganized, sometimes adhering to treatment other times refusing it without any clear pattern.? Patient is not amenable to logical explanation and his engagement in tx is unpredictable making dosing with Clozapine (and depakote) difficult as it requires periodic blood work and controlled titration.? However, Will continue with attempts at clozapine since this seems to be best option for patient to become stabilized 03/10 remains disorganized; won't engage; continues to have AH 03/13 CIVIL COMMITMENT AND SUBSTITUTED JUDGMENT ORDERED 03/16 continue current tx plan 03/19 Patient has moments of insight but quickly descends back into struggles with paranoia, disorganized thinking, thinking AH are real. Patient struggles with taking medication are difficult to predict.?Today he said I feel good, why would it take medication? despite that during the same conversation he also said that he continues to hear his neighbors say mad crap And if they come a fter him something will happen. The Hope is that clozapine as a monotherapy will be sufficient; writer editor discussed case with patient's past inpatient provider and there is no history of bipolar/manic episodes and Depakote only used for impulsivity/anger.? Thus, will lower Depakote to a 1000 mg q.h.s. With clozapine, it may be easier for patient to tolerate single dosing so will see if moving the entire dose to bedtime helps with adherence rather than being asked to take medications twice a day.? That said, sometimes patient wakes up in the morning and demands his morning medications so it is difficult to know The best way to mitigate his his anxiety around this issue. 03/26 patient has been refusing Depakote; since he does not have history of bipolar disorder manic episodes and this medication has had limited effect, will just discontinue for now and move forward with seen of clozapine can be effective on its own; will also DC Haldol Since patient refuses; at this point might as well see if clozapine by itself can be effective as Haldol has only ever Seemed to be minimally helpful. 03/27 denies auditory hallucinations but remains without any insight and saying that he will not take medications when he goes home because he is good. 03/28 Patient vacillates between being irritable and calm; sometimes he says he will take his medications when he goes home other times he says he is doing fine and does not need it. It is not clear if patient still hears auditory hallucinations or if they have resolved as his reporting is inconsistent. It remains necessary for patient to go to a long-term facility for continued medication management and to have a longer time without symptoms. 04/04 (not 04/05) patient overall more calm and excepting of being on the unit, waiting for further stabilization and outpatient services to be set up before returning to the community; does not want to go to [facility].? Patient's improvement is despite the fact that both Haldol and Depakote have been discontinued; off these medications he is less sedated and up earlier in the day.? Patient denies auditory hallucinations.? Intermittently he can accept that AH has resolved due to medication, but he does not have insight into presence of psychiatric disorder and need for ongoing treatment even when feeling stable.? That said, it is not clear that increasing doses of Clozaril would resolve this impaired insight; his improved presentation and desire to avoid side effects gives pause to further titrating clozapine.? Will leave here for now and monitor.? The remains significant concern the patient would discontinue his medications on discharge and team continues to agree that he needs a prolonged experience of being symptom free to connect his ongoing need for medication. 04/09 no changes 04/12 remains stable; staff discussed and think that patient is likely close to maximum benefit from clozapine so will keep at current dose for now. Concern is that any increase could cause side effects which would be a barrier to patient continue medication on discharge MED Trials: Seroquel Palliperidone Risperdal Haldol I spent minutes with the patient and/or on the patient floor today, greater than?50% of which was spent counseling/coordinating care. Patient educated on: therapeutic strategies Informed Consent: further education needed Reason for contiued inpatient stay Substantial Risk for: rapid decompensation
[2022-04-13 11:13] VITALS: PULSE 98; RESP 20; TEMP 36.6; O2SAT 95
[2022-04-13 11:50] LABS: Neut%MD 39.3 %; Neutrophils Absolute Auto 2.9 x10*3/uL (2.0-8.3); WBCANC 7.3 X10*3/uL
[2022-04-13] MEDS: cloZAPine 100 MG TABLET 350 MG PO (15:27)
[2022-04-13 16:34] VITALS: RESP 16
--- NOTE | 2022-04-13 17:52 | HO.PSYCHPN ---
Subjective Subjective Date of Service: 04/13/22 Reason For Visit: schizoaffective Interim History: Patient said he did hear voices but did not elaborate. Otherwise no changes Mental Status Exam Mental Status Exam Narrative: Pt is alert and oriented; behavior, more calm and cooperative; dressed in casual attire, wearing casual cloths, adequately groomed and with adequate hygiene; mood more calm; affect constricted; eye contact adequate, appropriate; Speech is normal rate, mostly normal volume (sometimes loud when irritated); normal prosody; no intermittent psychomotor agitation; thought process mostly goal oriented; Thought content is on discharge; seems less perseverative on paranoid delusional worries about being persecuted by his neighbors; Denies SI/HI. denies AH;? Patients insight and judgment are impaired but have improved. Diagnostics Vital Signs (24Hr): Vital Signs - 24 hr 04/13/22 11:13 04/13/22 16:34 Temperature 97.9 F Pulse Rate 98 Respiratory Rate 20 16 Pulse Oximetry 95 Oxygen Delivery Method Room Air BMI result Body Mass Index 36.2 Labs Results: 03/01/22 18:29 Labs: Laboratory Results - last 48 hr 04/13/22 11:44 Absolute Neuts (auto) 2.9 Medications Medications Current Medications Acetaminophen (Acetaminophen 325 Mg Tablet) 650 mg PO Q6H PRN PRN Reason: Headache/Pain Mild Scale (1-3) Last Admin: 03/03/22 22:41 Dose: 650 mg Al Hydroxide/Mg Hydroxide (Magnesium Hydrox/Alum Hydrox 30 Ml Oral.Susp) 30 ml PO Q6H PRN PRN Reason: Heartburn/Nausea Albuterol Sulfate (Albuterol Sulfate 90 Mcg 8 Gm Inhaler) 2 puff INHALE RQ4H PRN PRN Reason: Shortness Of Breath Benztropine Mesylate (Benztropine Mesylate 0.5 Mg Tablet) 0.25 mg PO BEDTIME JOE Last Admin: 04/13/22 15:54 Dose: Not Given Clonidine HCl (Clonidine Hcl 0.1 Mg Tablet) 0.1 mg PO TID PRN; Protocol PRN Reason: hyperarousal Last Admin: 02/28/22 21:47 Dose: 0.1 mg Clozapine (Clozapine 100 Mg Tablet) 350 mg PO DAILY@1700 JOE Last Admin: 04/13/22 15:27 Dose: 350 mg Diphenhydramine HCl (Diphenhydramine Hcl 25 Mg Tablet) 50 mg PO Q4H PRN PRN Reason: agitation Haloperidol (Haloperidol 5 Mg Tablet) 10 mg PO Q4H PRN PRN Reason: agitation Last Admin: 04/03/22 22:17 Dose: 10 mg Haloperidol Lactate (Haloperidol Lactate 5 Mg/Ml Vial) 10 mg IM DAILY PRN PRN Reason: if refuses PO Hydroxyzine HCl (Hydroxyzine Hcl 25 Mg Tablet) 25 mg PO Q6H PRN PRN Reason: Anxiety Last Admin: 04/11/22 22:27 Dose: 25 mg Lidocaine HCl (Lidocaine 4 % Cream Kit) 1 appl TOPICAL DAILY PRN; Protocol PRN Reason: prophylactiinjection site pain Magnesium Hydroxide (Milk Of Magnesia 30 Ml Oral.Susp) 30 ml PO DAILY PRN PRN Reason: Constipation Trazodone HCl (Trazodone Hcl 50 Mg Tablet) 50 mg PO BEDTIME PRN PRN Reason: Insomnia Allergies Allergies Allergy/AdvReac Type Severity Reaction Status Date / Time No Known Allergies Allergy Verified 02/19/22 03:39 [No Known Allergies*] Assessment & Plan Assessment & Plan (1) Schizophrenia, paranoid, chronic with acute exacerbation: Status: Acute Code(s): F20.0 - Paranoid schizophrenia Plan HPI: Nura is a 26 y.o. male who carries a dx of paranoid schizophrenia. Hx of AH, has fixed delusion of believing neighbors are talking about him. Has DMH and ACCS services through [facility]. No Catarino's order. Hx of med non-adherence upon discharge.? 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 He has a hx of multiple inpatient admissions, including 1 about a month ago with very similar presentation, refusing to take meds, asking for discharge and deemed safe to return to the community. He has been re-presenting to [facility] after being discharged with the same presentation, not dangerous, but asking for help and then refusing treatment wanting discharge. He continues to have auditory hallucinations about his neighbor.?Initially, he has not expressed any delusional concerns that his neighbor is going to hurt him, just that his neighbors talking about him and so considered discharge.?However, Patient soon expressed concerns that his neighbors are plotting to harm him and that he is prepared to harm them back if he needs to defend himself.? As patient has presented several times to the emergency room in between admissions he is demonstrating that he is struggling to function in the community.? He has an extensive history of medication noncompliance. He has chronic paranoid delusions and auditory hallucinations that his neighbors are going to hurt him which intermittently expand to thoughts about preparing to defend himself.? Will continue treatment however, given his long hx of refractory psychosis, no insight and poor adherence with medication, team agrees that patient needs a more long-term admission to stabilize to the point where he could successfully live in the community. PLAN: Section 8b Patient Civil Committed and substituted judgment for medications ordered. Medication plan:? Trial of clozapine; overlap Haldol/Depak (minimally helpful) for now; goal to see if clozapine can be effective alone Clozapine? 325mg at DINNER time to mitigate daytime tiredness (to help with adherence; was split dosing) CANNOT REFUSE; COURT ORDERED; GIVE HALDOL 5MG IF REFUSES -patient has improved significantly so will leave at this dose for now ANC 04/06: 2.9 ANC weekly -DISCONTINUED Divalproex ER 1000 mg PO QHS on 03/26; patient has been refusing it and since goal is to see if monotherapy with clozapine can work, will just discontinue it for now; patient does not have history of bipolar disorder or manic episodes and this medication was used with only limited success for behavioral issues. -DISCONTNUE Haloperidol (was 10 mg BID; patient refuses; at this point might as well see if clozapine by itself can be effective as Haldol has only ever Seemed to be minimally helpful and it's not worth forcing an IM) Continue Benztropine Mesylate (Benztropine Mesylate 0.5 Mg Tablet)? 0.5 mg PO qHS; but on clozapine may not need Continue Clonidine HCl (Clonidine Hcl 0.1 Mg Tablet)? 0.1 mg PO TID PRN Reason: hyperarousal Trazodone HCl? 50 mg PO BEDTIME PRN Insomnia Hydroxyzine HCl (Hydroxyzine Hcl 25 Mg Tablet)? 25 mg PO Q6H PRN Anxiety DC Quetiapine qhs; pt does not want for day to day events (see below)... HOSPITAL COURSE 02/24: Ct treatment plan 02/25: Ct Rx plan. May need committment. Lacks insight and is non compliant with meds. 02/26: Pt adamantly does not want to increase haldol or depakote. Will start seroquel 300 mg QHS for sx of psychotic depression, has not had adequate trial on seroquel. May help with poor sleep. 02/27: Pt has been refusing all meds; AH complaints but denies any SI/HI and his demonstrate safe behaviors on the unit 02/28 retracted 3 day, remains preoccupied with auditory hallucinations of his neighbors and delusional thoughts that his neighbors are persecuting him agrees to stay for treatment; considering clozapine 03/01 Angry and demanding discharge and 3 day notice placed; difficult to engage; no insight.? Refused morning dose of Haldol.? At said he is taking clozapine before and resisted reality testing; however said will still consider 03/02 patient willingly taking clozapine 03/06 patient intermittently takes clozapine; he is disorganized in behavior and thought, intermittently yelling and accusing staff and posturing and threatening staff.? Patient struggles to understand that his rent is paid for; while talking about a specific topic, patient will intermittently respond with a disorganized irrelevant answer.? Patient has failed monotherapy with Seroquel, Palliperidone, Risperdal and Haldol.? Will continue to titrate clozapine as patient is willing to see if this can be effective.? Patient has a 3 day notice due today 03/06/2022.? Team finds that patient is unstable and not safe to return the community as he has ongoing auditory hallucinations and paranoid delusional thoughts that about his neighbors plotting to hurt him.? Will file for Civil commitment; also discussed is that patient may need long-term admission to better establish stability. 5 patient disorganized; refused labs making it difficult to titrate clozapine.? Will continue to trying get patient to allow labs 5/6 remains disorganized, sometimes adhering to treatment other times refusing it without any clear pattern.? Patient is not amenable to logical explanation and his engagement in tx is unpredictable making dosing with Clozapine (and depakote) difficult as it requires periodic blood work and controlled titration.? However, Will continue with attempts at clozapine since this seems to be best option for patient to become stabilized 03/10 remains disorganized; won't engage; continues to have AH 03/13 CIVIL COMMITMENT AND SUBSTITUTED JUDGMENT ORDERED 03/16 continue current tx plan 03/19 Patient has moments of insight but quickly descends back into struggles with paranoia, disorganized thinking, thinking AH are real. Patient struggles with taking medication are difficult to predict.?Today he said I feel good, why would it take medication? despite that during the same conversation he also said that he continues to hear his neighbors say mad crap And if they come after him something will happen. The Hope is that clozapine as a monotherapy will be sufficient; flex o writer operator discussed case with patient's past inpatient provider and there is no history of bipolar/manic episodes and Depakote only used for impulsivity/anger.? Thus, will lower Depakote to a 1000 mg q.h.s. With clozapine, it may be easier for patient to tolerate single dosing so will see if moving the entire dose to bedtime helps with adherence rather than being asked to take medications twice a day.? That said, sometimes patient wakes up in the morning and demands his morning medications so it is difficult to know The best way to mitigate his his anxiety around this issue. 03/26 patient has been refusing Depakote; since he does not have history of bipolar disorder manic episodes and this medication has had limited effect, will just discontinue for now and move forward with seen of clozapine can be effective on its own; will also DC Haldol Since patient refuses; at this point might as well see if clozapine by itself can be effective as Haldol has only ever Seemed to be minimally helpful. 03/27 denies auditory hallucinations but remains without any insight and saying that he will not take medications when he goes home because he is good. 03/28 Patient vacillates between being irritable and calm; sometimes he says he will take his medications when he goes home other times he says he is doing fine and does not need it. It is not clear if patient still hears auditory hallucinations or if they have resolved as his reporting is inconsistent. It remains necessary for patient to go to a long-term facility for continued medication management and to have a longer time without symptoms. 04/04 (not 04/05) patient overall more calm and excepting of being on the unit, waiting for further stabilization and outpatient services to be set up before returning to the community; does not want to go to [facility]? Patient's improvement is despite the fact that both Haldol and Depakote have been discontinued; off these medications he is less sedated and up earlier in the day.? Patient denies auditory hallucinations.? Intermittently he can accept that AH has resolved due to medication, but he does not have insight into presence of psychiatric disorder and need for ongoing treatment even when feeling stable.? That said, it is not clear that increasing doses of Clozaril would resolve this impaired insight; his improved presentation and desire to avoid side effects gives pause to further titrating clozapine.? Will leave here for now and monitor.? The remains significant concern the patient would discontinue his medications on discharge and team continues to agree that he needs a prolonged experience of being symptom free to connect his ongoing need for medication. 04/09 no changes 04/12 remains stable; staff discussed and think that patient is likely close to maximum benefit from clozapine so will keep at current dose for now. Concern is that any increase could cause side effects which would be a barrier to patient continue medication on discharge MED Trials: Seroquel Palliperidone Risperdal Haldol I spent minutes with the patient and/or on the patient floor today, greater than?50% of which was spent counseling/coordinating care. Reason for contiued inpatient stay Substantial Risk for: rapid decompensation
[2022-04-13] MEDS: Benztropine Mesylate 0.5 MG TABLET 0.25 MG PO (21:24)
[2022-04-14 11:10] VITALS: PULSE 99; RESP 20; TEMP 36.7; O2SAT 95
[2022-04-14] MEDS: cloZAPine 100 MG TABLET 350 MG PO (15:45)
[2022-04-14 18:00] VITALS: BP 105/69; PULSE 125; RESP 16; TEMP 36.3; O2SAT 95
[2022-04-14] MEDS: Benztropine Mesylate 0.5 MG TABLET 0.25 MG PO (20:52)
--- NOTE | 2022-04-14 23:39 | P.PNPSI_ITS ---
Subjective Subjective Date of Service: 04/14/22 Reason For Visit: schizoaffective Interim History: Patient seen and discussed. Patient was minimally interactive and dismissive. He denied any concerns. When on the milieu he is engaged with staff and peers. No SI Review of Systems Review of Systems Yes all other systems are reviewed and are negative Mental Status Exam Mental Status Exam Narrative: Pt is alert and oriented; behavior, more calm and cooperative; dressed in casual attire, wearing casual cloths, adequately groomed and with adequate hygiene; mood more calm; affect constricted; eye contact adequate, appropriate; Speech is normal rate, mostly normal volume (sometimes loud when irritated); normal prosody; no intermittent psychomotor agitation; thought process mostly goal oriented; Thought content is on discharge; seems less perseverative on paranoid delusional worries about being persecuted by his neighbors; Denies SI/HI. denies AH;? Patients insight and judgment are impaired but have improved. Patient Appearance: Appropriate Patient Orientation: Person, Place and Situation Level of Consciousness: Alert Patient Behavior: Talkative, Restless (at times) and Good Eye Contact Mood Description: Apprehensive Affect Description: Constricted Patient Cognition Impaired: No Ability to Follow Directions: Good Speech Pattern: Spontaneous Speech Memory Description: Episodic Impaired Diagnostics Vital Signs (24Hr): Vital Signs - 24 hr 04/14/22 11:10 04/14/22 18:00 Temperature 98.0 F 97.3 F Pulse Rate 99 125 H Respiratory Rate 20 16 Blood Pressure 105/69 Pulse Oximetry 95 95 Oxygen Delivery Method Room Air Room Air BMI result Body Mass Index 36.2 Labs Results: 03/01/22 18:29 Labs: Laboratory Results - last 48 hr 04/13/22 11:44 Absolute Neuts (auto) 2.9 Medications Medications Current Medications Acetaminophen (Acetaminophen 325 Mg Tablet) 650 mg PO Q6H PRN PRN Reason: Headache/Pain Mild Scale (1-3) Last Admin: 03/03/22 22:41 Dose: 650 mg Al Hydroxide/Mg Hydroxide (Magnesium Hydrox/Alum Hydrox 30 Ml Oral.Susp) 30 ml PO Q6H PRN PRN Reason: Heartburn/Nausea Albuterol Sulfate (Albuterol Sulfate 90 Mcg 8 Gm Inhaler) 2 puff INHALE RQ4H PRN PRN Reason: Shortness Of Breath Benztropine Mesylate (Benztropine Mesylate 0.5 Mg Tablet) 0.5 mg PO BEDTIME JOE Last Admin: 04/14/22 21:39 Dose: Not Given Clonidine HCl (Clonidine Hcl 0.1 Mg Tablet) 0.1 mg PO TID PRN; Protocol PRN Reason: hyperarousal Last Admin: 02/28/22 21:47 Dose: 0.1 mg Clozapine (Clozapine 100 Mg Tablet) 350 mg PO DAILY@1700 [facility] Last Admin: 04/14/22 15:45 Dose: 350 mg Diphenhydramine HCl (Diphenhydramine Hcl 25 Mg Tablet) 50 mg PO Q4H PRN PRN Reason: agitation Haloperidol (Haloperidol 5 Mg Tablet) 10 mg PO Q4H PRN PRN Reason: agitation Last Admin: 04/03/22 22:17 Dose: 10 mg Haloperidol Lactate (Haloperidol Lactate 5 Mg/Ml Vial) 10 mg IM DAILY PRN PRN Reason: if refuses PO Hydroxyzine HCl (Hydroxyzine Hcl 25 Mg Tablet) 25 mg PO Q6H PRN PRN Reason: Anxiety Last Admin: 04/11/22 22:27 Dose: 25 mg Lidocaine HCl (Lidocaine 4 % Cream Kit) 1 appl TOPICAL DAILY PRN; Protocol PRN Reason: prophylactiinjection site pain Magnesium Hydroxide (Milk Of Magnesia 30 Ml Oral.Susp) 30 ml PO DAILY PRN PRN Reason: Constipation Trazodone HCl (Trazodone Hcl 50 Mg Tablet) 50 mg PO BEDTIME PRN PRN Reason: Insomnia Allergies Allergies Allergy/AdvReac Type Severity Reaction Status Date / Time No Known Allergies Allergy Verified 02/19/22 03:39 [No Known Allergies*] Assessment & Plan Assessment & Plan (1) Schizophrenia, paranoid, chronic with acute exacerbation: Status: Acute Code(s): F20.0 - Paranoid schizophrenia Plan HPI: Nura is a 26 y.o. male who carries a dx of paranoid schizophrenia. Hx of AH, has fixed delusion of believing neighbors are talking about him. Has DMH and ACCS services through [facility]. No Catarino's order. Hx of med non-adherence upon discharge.? Patient has been repeatedly coming to the emergency room asking for help with auditory hallucinations Formulation: dx Schizophrenia, paranoid type Optometric Coordinator discussed case with colleagues who have worked with patient in the past and also with staff on the unit for current admission. He has a hx of multiple inpatient admissions, including 1 about a month ago with very similar presentation, refusing to take meds, asking for discharge and whit med safe to return to the community. He has been re-presenting to [facility] after being discharged with the same presentation, not dangerous, but asking for help and then refusing treatment wanting discharge. He continues to have auditory hallucinations about his neighbor.?Initially, he has not expressed any delusional concerns that his neighbor is going to hurt him, just that his neighbors talking about him and so considered discharge.?However, Patient soon expressed concerns that his neighbors are plotting to harm him and that he is prepared to harm them back if he needs to defend himself.? As patient has presented several times to the emergency room in between admissions he is demonstrating that he is struggling to function in the community.? He has an extensive history of medication noncompliance. He has chronic paranoid delusions and auditory hallucinations that his neighbors are going to hurt him which intermittently expand to thoughts about preparing to defend himself.? Will continue treatment however, given his long hx of refractory psychosis, no insight and poor adherence with medication, team agrees that patient needs a more long-term admission to stabilize to the point where he could successfully live in the community. PLAN: Section 8b Patient Civil Committed and substituted judgment for medications ordered. Medication plan:? Trial of clozapine; overlap Haldol/Depak (minimally helpful) for now; goal to see if clozapine can be effective alone Clozapine? 325mg at DINNER time to mitigate daytime tiredness (to help with adherence; was split dosing) CANNOT REFUSE; COURT ORDERED; GIVE HALDOL 5MG IF REFUSES -patient has improved significantly so will leave at this dose for now ANC 04/06: 2.9 ANC weekly -DISCONTINUED Divalproex ER 1000 mg PO QHS on 03/26; patient has been refusing it and since goal is to see if monotherapy with clozapine can work, will just discontinue it for now; patient does not have history of bipolar disorder or manic episodes and this medication was used with only limited success for behavioral issues. -DISCONTNUE Haloperidol (was 10 mg BID; patient refuses; at this point might as well see if clozapine by itself can be effective as Haldol has only ever Seemed to be minimally helpful and it's not worth forcing an IM) Continue Benztropine Mesylate (Benztropine Mesylate 0.5 Mg Tablet)? 0.5 mg PO qHS; but on clozapine may not need Continue Clonidine HCl (Clonidine Hcl 0.1 Mg Tablet)? 0.1 mg PO TID PRN Reason: hyperarousal Trazodone HCl? 50 mg PO BEDTIME PRN Insomnia Hydroxyzine HCl (Hydroxyzine Hcl 25 Mg Tablet)? 25 mg PO Q6H PRN Anxiety DC Quetiapine qhs; pt does not want for day to day events (see below)... HOSPITAL COURSE 02/24: Ct treatment plan 02/25: Ct Rx plan. May need committment. Lacks insight and is non compliant with meds. 02/26: Pt adamantly does not want to increase haldol or depakote. Will start seroquel 300 mg QHS for sx of psychotic depression, has not had adequate trial on seroquel. May help with poor sleep. 02/27: Pt has been refusing all meds; AH complaints but denies any SI/HI and his demonstrate safe behaviors on the unit 02/28 retracted 3 day, remains preoccupied with auditory hallucinations of his neighbors and delusional thoughts that his neighbors are persecuting him agrees to stay for treatment; considering clozapine 03/01 Angry and demanding discharge and 3 day notice placed; difficult to engage; no insight.? Refused morning dose of Haldol.? At said he is taking clozapine before and resisted reality testing; however said will still consider 03/02 patient willingly taking clozapine 03/06 patient intermittently takes clozapine; he is disorganized in behavior and thought, intermittently yelling and accusing staff and posturing and threatening staff.? Patient struggles to understand that his rent is paid for; while talking about a specific topic, patient will intermittently respond with a disorganized irrelevant answer.? Patient has failed monotherapy with Seroquel, Palliperidone, Risperdal and Haldol.? Will continue to titrate clozapine as patient is willing to see if this can be effective.? Patient has a 3 day notice due today 03/06/20.? Team finds that patient is unstable and not safe to return the community as he has ongoing auditory hallucinations and paranoid delusional thoughts that about his neighbors plotting to hurt him.? Will file for Civil commitment; also discussed is that patient may need long-term admission to better establish stability. 03/08 patient disorganized; refused labs making it difficult to titrate clozap ine.? Will continue to trying get patient to allow labs 03/09 remains disorganized, sometimes adhering to treatment other times refusing it without any clear pattern.? Patient is not amenable to logical explanation and his engagement in tx is unpredictable making dosing with Clozapine (and depakote) difficult as it requires periodic blood work and controlled titration.? However, Will continue with attempts at clozapine since this seems to be best option for patient to become stabilized 03/10 remains disorganized; won't engage; continues to have AH 03/13 CIVIL COMMITMENT AND SUBSTITUTED JUDGMENT ORDERED 03/16 continue current tx plan 03/19 Patient has moments of insight but quickly descends back into struggles with paranoia, disorganized thinking, thinking AH are real. Patient struggles with taking medication are difficult to predict.?Today he said I feel good, why would it take medication? despite that during the same conversation he also said that he continues to hear his neighbors say mad crap And if they come after him something will happen. The Hope is that clozapine as a monotherapy will be sufficient; proposal writer discussed case with patient's past inpatient provider and there is no history of bipolar/manic episodes and Depakote only used for impulsivity/anger.? Thus, will lower Depakote to a 1000 mg q.h.s. With clozapine, it may be easier for patient to tolerate single dosing so will see if moving the entire dose to bedtime helps with adherence rather than being asked to take medications twice a day.? That said, sometimes patient wakes up in the morning and demands his morning medications so it is difficult to know The best way to mitigate his his anxiety around this issue. 03/26 patient has been refusing Depakote; since he does not have history of bipolar disorder manic episodes and this medication has had limited effect, will just discontinue for now and move forward with seen of clozapine can be effective on its own; will also DC Haldol Since patient refuses; at this point might as well see if clozapine by itself can be effective as Haldol has only ever Seemed to be minimally helpful. 03/27 denies auditory hallucinations but remains without any insight and saying that he will not take medications when he goes home because he is good. 03/28 Patient vacillates between being irritable and calm; sometimes he says he will take his medications when he goes home other times he says he is doing fine and does not need it. It is not clear if patient still hears auditory hallucinations or if they have resolved as his reporting is inconsistent. It remains necessary for patient to go to a long-term facility for continued medication management and to have a longer time without symptoms. 04/04 (not 04/05) patient overall more calm and excepting of being on the unit, waiting for further stabilization and outpatient services to be set up before returning to the community; does not want to go to [facility]? Patient's improvement is despite the fact that both Haldol and Depakote have been discontinued; off these medications he is less sedated and up earlier in the day.? Patient denies auditory hallucinations.? Intermittently he can accept that AH has resolved due to medication, but he does not have insight into presence of psychiatric disorder and need for ongoing treatment even when feeling stable.? That said, it is not clear that increasing doses of Clozaril would resolve this impaired insight; his improved presentation and desire to avoid side effects gives pause to further titrating clozapine.? Will leave here for now and monitor.? The remains significant concern the patient would discontinue his medications on discharge and team continues to agree that he needs a prolonged experience of being symptom free to connect his ongoing need for medication. 04/09 no changes 04/12 remains stable; staff discussed and think that patient is likely close to maximum benefit from clozapine so will keep at current dose for now. Concern is that any increase could cause side effects which would be a barrier to patient continue medication on discharge 04/14 continue treatment plan MED Trials: Seroquel Palliperidone Risperdal Haldol I spent minutes with the patient and/or on the patient floor today, greater than?50% of which was spent counseling/coordinating care. Reason for contiued inpatient stay Substantial Risk for: inability to function and rapid decompensation
--- NOTE | 2022-04-15 | ECG_ITS ---
Test Reason : cp Blood Pressure : / mmHG Vent. Rate : 118 BPM Atrial Rate : 118 BPM P-R Int : 158 ms QRS Dur : 082 ms QT Int : 328 ms P-R-T Axes : 000 087 148 degrees QTc Int : 459 ms Sinus tachycardia Nonspecific ST and T wave abnormality Abnormal ECG When compared with ECG of 21-FEB-2022 21:29, No significant change was found Referred By: Maya Juárez Electronically Signed By:Fernandez Jackson
--- NOTE | 2022-04-15 13:08 | P.PNPSI_ITS ---
Subjective Subjective Date of Service: 04/15/22 Reason For Visit: schizoaffective Interim History: Patient seen and discussed. Patient was minimally interactive and dismissive. He denied any concerns. When on the milieu he is engaged with staff and peers. Denies SI. I just want to get out of here Review of Systems Review of Systems Yes all other systems are reviewed and are negative Mental Status Exam Mental Status Exam Narrative: Pt is alert and oriented; behavior, more calm and cooperative; dressed in casual attire, wearing casual cloths, adequately groomed and with adequate hygiene; mood more calm; affect constricted; eye contact adequate, appropriate; Speech is normal rate, mostly normal volume (sometimes loud when irritated); normal prosody; no intermittent psychomotor agitation; thought process mostly goal oriented; Thought content is on discharge; seems less perseverative on paranoid delusional worries about being persecuted by his neighbors; Denies SI/HI. denies AH;? Patients insight and judgment are impaired but have improved. Patient Appearance: Appropriate Patient Orientation: Person, Place and Situation Level of Consciousness: Alert Patient Behavior: Talkative, Restless (at times) and Good Eye Contact Mood Description: Apprehensive Affect Description: Constricted Patient Cognition Impaired: No Ability to Follow Directions: Good Speech Pattern: Spontaneous Speech Memory Description: Episodic Impaired Diagnostics Vital Signs (24Hr): Vital Signs - 24 hr 04/14/22 18:00 Temperature 97.3 F Pulse Rate 125 H Respiratory Rate 16 Blood Pressure 105/69 Pulse Oximetry 95 Oxygen Delivery Method Room Air BMI result Body Mass Index 36.2 Labs Results: 03/01/22 18:29 Medications Medications Current Medications Acetaminophen (Acetaminophen 325 Mg Tablet) 650 mg PO Q6H PRN PRN Reason: Headache/Pain Mild Scale (1-3) Last Admin: 03/03/22 22:41 Dose: 650 mg Al Hydroxide/Mg Hydroxide (Magnesium Hydrox/Alum Hydrox 30 Ml Oral.Susp) 30 ml PO Q6H PRN PRN Reason: Heartburn/Nausea Albuterol Sulfate (Albuterol Sulfate 90 Mcg 8 Gm Inhaler) 2 puff INHALE RQ4H PRN PRN Reason: Shortness Of Breath Benztropine Mesylate (Benztropine Mesylate 0.5 Mg Tablet) 0.5 mg PO BEDTIME JOE Last Admin: 04/14/22 21:39 Dose: Not Given Clonidine HCl (Clonidine Hcl 0.1 Mg Tablet) 0.1 mg PO TID PRN; Protocol PRN Reason: hyperarousal Last Admin: 02/28/22 21:47 Dose: 0.1 mg Clozapine (Clozapine 100 Mg Tablet) 350 mg PO DAILY@1700 JOE Last Admin: 04/14/22 15:45 Dose: 350 mg Diphenhydramine HCl (Diphenhydramine Hcl 25 Mg Tablet) 50 mg PO Q4H PRN PRN Reason: agitation Haloperidol (Haloperidol 5 Mg Tablet) 10 mg PO Q4H PRN PRN Reason: agitation Last Admin: 04/03/22 22:17 Dose: 10 mg Haloperidol Lactate (Haloperidol Lactate 5 Mg/Ml Vial) 10 mg IM DAILY PRN PRN Reason: if refuses PO Hydroxyzine HCl (Hydroxyzine Hcl 25 Mg Tablet) 25 mg PO Q6H PRN PRN Reason: Anxiety Last Admin: 04/11/22 22:27 Dose: 25 mg Lidocaine HCl (Lidocaine 4 % Cream Kit) 1 appl TOPICAL DAILY PRN; Protocol PRN Reason: prophylactiinjection site pain Magnesium Hydroxide (Milk Of Magnesia 30 Ml Oral.Susp) 30 ml PO DAILY PRN PRN Reason: Constipation Trazodone HCl (Trazodone Hcl 50 Mg Tablet) 50 mg PO BEDTIME PRN PRN Reason: Insomnia Allergies Allergies Allergy/AdvReac Type Severity Reaction Status Date / Time No Known Allergies Allergy Verified 02/19/22 03:39 [No Known Allergies*] Assessment & Plan Assessment & Plan (1) Schizophrenia, paranoid, chronic with acute exacerbation: Status: Acute Code(s): F20.0 - Paranoid schizophrenia Plan HPI: Nura is a 26 y.o. male who carries a dx of paranoid schizophrenia. Hx of AH, has fixed delusion of believing neighbors are talking about him. Has DMH and ACCS services through [facility]. No Catarino's order. Hx of med non-adherence upon discharge.? 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 He has a hx of multiple inpatient admissions, including 1 about a month ago with very similar presentation, refusing to take meds, asking for discharge and deemed safe to return to the community. He has been re-presenting to [facility] after being discharged with the same presentation, not dangerous, but asking for help and then refusing treatment wanting discharge. He continues to have auditory hallucinations about his neighbor.?Initially, he has not expressed any delusional concerns that his neighbor is going to hurt him, just that his neighbors talking about him and so considered discharge.?However, Patient soon expressed concerns that his neighbors are plotting to harm him and that he is prepared to harm them back if he needs to defend himself.? As patient has presented several times to the emergency room in between admissions he is demonstrating that he is struggling to function in the community.? He has an extensive history of medication noncompliance. He has chronic paranoid delusions and auditory hallucinations that his neighbors are going to hurt him which intermittently expand to thoughts about preparing to defend himself.? Will continue treatment however, given his long hx of refractory psychosis, no insight and poor adherence with medication, team agrees that patient needs a more long-term admission to stabilize to the point where he could successfully live in the community. PLAN: Section 8b Patient Civil Committed and substituted judgment for medications ordered. Medication plan:? Trial of clozapine; overlap Haldol/Depak (minimally helpful) for now; goal to see if clozapine can be effective alone Clozapine? 325mg at DINNER time to mitigate daytime tiredness (to help with adherence; was split dosing) CANNOT REFUSE; COURT ORDERED; GIVE HALDOL 5MG IF REFUSES -patient has improved significantly so will leave at this dose for now ANC 04/06: 2.9 ANC weekly -DISCONTINUED Divalproex ER 1000 mg PO QHS on 03/26; patient has been refusing it and since goal is to see if monotherapy with clozapine can work, will just discontinue it for now; patient does not have history of bipolar disorder or manic episodes and this medication was used with only limited success for behavioral issues. -DISCONTNUE Haloperidol (was 10 mg BID; patient refuses; at this point might as well see if clozapine by itself can be effective as Haldol has only ever Seemed to be minimally helpful and it's not worth forcing an IM) Continue Benztropine Mesylate (Benztropine Mesylate 0.5 Mg Tablet)? 0.5 mg PO qHS; but on clozapine may not need Continue Clonidine HCl (Clonidine Hcl 0.1 Mg Tablet)? 0.1 mg PO TID PRN Reason: hyperarousal Trazodone HCl? 50 mg PO BEDTIME PRN Insomnia Hydroxyzine HCl (Hydroxyzine Hcl 25 Mg Tablet)? 25 mg PO Q6H PRN Anxiety DC Quetiapine qhs; pt does not want for day to day events (see below)... HOSPITAL COURSE 02/24: Ct treatment plan 02/25: Ct Rx plan. May need committment. Lacks insight and is non compliant with meds. 02/26: Pt adamantly does not want to increase haldol or depakote. Will start seroquel 300 mg QHS for sx of psychotic depression, has not had adequate trial on seroquel. May help with poor sleep. 02/27: Pt has been refusing all meds; AH complaints but denies any SI/HI and his demonstrate safe behaviors on the unit 02/28 retracted 3 day, remains preoccupied with auditory hallucinations of his neighbors and delusional thoughts that his neighbors are persecuting him agrees to stay for treatment; considering clozapine 03/01 Angry and demanding discharge and 3 day notice placed; difficult to engage; no insight.? Refused morning dose of Haldol.? At said he is taking clozapine before and resisted reality testing; however said will still consider 03/02 patient willingly taking clozapine 03/06 patient intermittently takes clozapine; he is disorganized in behavior and thought, intermittently yelling and accusing staff and posturing and threatening staff.? Patient struggles to understand that his rent is paid for; while talking about a specific topic, patient will intermittently respond with a disorganized irrelevant answer.? Patient has failed monotherapy with Seroquel, Palliperidone, Risperdal and Haldol.? Will continue to titrate clozapine as patient is willing to see if this can be effective.? Patient has a 3 day notice due today 03/06/2022.? Team finds that patient is unstable and not safe to return the community as he has ongoing auditory hallucinations and paranoid delusional thoughts that about his neighbors plotting to hurt him.? Will file for Civil commitment; also discussed is that patient may need long-term admission to better establish stability. 03/08 patient disorganized; refused labs making it difficult to titrate clozapine.? Will continue to trying get patient to allow labs 03/09 remains disorganized, sometimes adhering to treatment other times refusing it without any clear pattern.? Patient is not amenable to logical explanation and his engagement in tx is unpredictable making dosing with Clozapine (and depakote) difficult as it requires periodic blood work and controlled t itration.? However, Will continue with attempts at clozapine since this seems to be best option for patient to become stabilized 03/10 remains disorganized; won't engage; continues to have AH 03/13 CIVIL COMMITMENT AND SUBSTITUTED JUDGMENT ORDERED 03/16 continue current tx plan 03/19 Patient has moments of insight but quickly descends back into struggles with paranoia, disorganized thinking, thinking AH are real. Patient struggles with taking medication are difficult to predict.?Today he said I feel good, why would it take medication? despite that during the same conversation he also said that he continues to hear his neighbors say mad crap And if they come after him something will happen. The Hope is that clozapine as a monotherapy will be sufficient; junior underwriter discussed case with patient's past inpatient provider and there is no history of bipolar/manic episodes and Depakote only used for impulsivity/anger.? Thus, will lower Depakote to a 1000 mg q.h.s. With clozapine, it may be easier for patient to tolerate single dosing so will see if moving the entire dose to bedtime helps with adherence rather than being asked to take medications twice a day.? That said, sometimes patient wakes up in the morning and demands his morning medications so it is difficult to know The best way to mitigate his his anxiety around this issue. 03/26 patient has been refusing Depakote; since he does not have history of bipolar disorder manic episodes and this medication has had limited effect, will just discontinue for now and move forward with seen of clozapine can be effective on its own; will also DC Haldol Since patient refuses; at this point might as well see if clozapine by itself can be effective as Haldol has only ever Seemed to be minimally helpful. 03/27 denies auditory hallucinations but remains without any insight and saying that he will not take medications when he goes home because he is good. 03/28 Patient vacillates between being irritable and calm; sometimes he says he will take his medications when he goes home other times he says he is doing fine and does not need it. It is not clear if patient still hears auditory hallucinations or if they have resolved as his reporting is inconsistent. It remains necessary for patient to go to a long-term facility for continued medication management and to have a longer time without symptoms. 04/04 (not 04/05) patient overall more calm and excepting of being on the unit, waiting for further stabilization and outpatient services to be set up before returning to the community; does not want to go to [facility].? Patient's improvement is despite the fact that both Haldol and Depakote have been discontinued; off these medications he is less sedated and up earlier in the day.? Patient denies auditory hallucinations.? Intermittently he can accept that AH has resolved due to medication, but he does not have insight into presence of psychiatric disorder and need for ongoing treatment even when feeling stable.? That said, it is not clear that increasing doses of Clozaril would resolve this impaired insight; his improved presentation and desire to avoid side effects gives pause to further titrating clozapine.? Will leave here for now and monitor.? The remains significant concern the patient would discontinue his medications on discharge and team continues to agree that he needs a prolonged experience of being symptom free to connect his ongoing need for medication. 04/09 no changes 04/12 remains stable; staff discussed and think that patient is likely close to maximum benefit from clozapine so will keep at current dose for now. Concern is that any increase could cause side effects which would be a barrier to patient continue medication on discharge 04/14 continue treatment plan 04/15 continue treatment plan MED Trials: Seroquel Palliperidone Risperdal Haldol I spent minutes with the patient and/or on the patient floor today, greater than?50% of which was spent counseling/coordinating care. Reason for contiued inpatient stay Substantial Risk for: harm to others and rapid decompensation
[2022-04-15] MEDS: cloZAPine 100 MG TABLET 350 MG PO (15:34)
[2022-04-15 15:37] VITALS: RESP 18
[2022-04-15 17:04] VITALS: BP 125/85; PULSE 125; O2SAT 94
[2022-04-15 18:21] LABS: Troponin-I High Sensitivity < 3.5 ng/L (<3.5-35.0)
[2022-04-15] MEDS: Benztropine Mesylate 0.5 MG TABLET PO (19:44)
[2022-04-15] MEDS: hydrOXYzine HCL 25 MG TABLET PO (23:13)
[2022-04-16] MEDS: cloZAPine 100 MG TABLET 350 MG PO (15:39)
--- NOTE | 2022-04-16 17:00 | P.PNPSI_ITS ---
Subjective Subjective Date of Service: 04/16/22 Reason For Visit: schizoaffective Interim History: Patient remains is stable; keeps asking about hoping not to have to go to [facility]. Tried to discuss sexual side effects of medication but patient was very vague and it is on conclusive; other staff reports that this topic is come up in the past make it less likely related to clozapine Ironer Or Presser briefly talked to Bebe Mccormick at [facility] who is discussing ACCS today with nursing plating and point assembly supervisor at meeting later on today Mental Status Exam Mental Status Exam Narrative: Pt is alert and oriented; behavior, more calm and cooperative; dressed in casual attire, wearing casual cloths, adequately groomed and with adequate hygiene; mood more calm; affect constricted; eye contact adequate, appropriate; Speech is normal rate, mostly normal volume (sometimes loud when irritated); normal prosody; no intermittent psychomotor agitation; thought process mostly goal oriented; Thought content is on discharge; seems less perseverative on paranoid delusional worries about being persecuted by his neighbors; Denies SI/HI. denies AH;? Patients insight and judgment are impaired but have improved. Patient Appearance: Appropriate Patient Orientation: Person, Place and Situation Level of Consciousness: Alert Patient Behavior: Talkative, Restless (at times) and Good Eye Contact Mood Description: Apprehensive Affect Description: Constricted Patient Cognition Impaired: No Ability to Follow Directions: Good Speech Pattern: Spontaneous Speech Memory Description: Episodic Impaired Diagnostics Vital Signs (24Hr): Vital Signs - 24 hr 04/15/22 17:04 Pulse Rate 125 H Blood Pressure 125/85 Pulse Oximetry 94 Oxygen Delivery Method Room Air BMI result Body Mass Index 36.2 Labs Results: 03/01/22 18:29 Labs: Laboratory Results - last 48 hr 04/15/22 17:57 Troponin I High Sens < 3.5 Medications Medications Current Medications Acetaminophen (Acetaminophen 325 Mg Tablet) 650 mg PO Q6H PRN PRN Reason: Headache/Pain Mild Scale (1-3) Last Admin: 03/03/22 22:41 Dose: 650 mg Al Hydroxide/Mg Hydroxide (Magnesium Hydrox/Alum Hydrox 30 Ml Oral.Susp) 30 ml PO Q6H PRN PRN Reason: Heartburn/Nausea Albuterol Sulfate (Albuterol Sulfate 90 Mcg 8 Gm Inhaler) 2 puff INHALE RQ4H PRN PRN Reason: Shortness Of Breath Benztropine Mesylate (Benztropine Mesylate 0.5 Mg Tablet) 0.5 mg PO BEDTIME JOE Last Admin: 04/15/22 19:44 Dose: 0.5 mg Clonidine HCl (Clonidine Hcl 0.1 Mg Tablet) 0.1 mg PO TID PRN; Protocol PRN Reason: hyperarousal Last Admin: 02/28/22 21:47 Dose: 0.1 mg Clozapine (Clozapine 100 Mg Tablet) 350 mg PO DAILY@1700 JOE Last Admin: 04/16/22 15:39 Dose: 350 mg Diphenhydramine HCl (Diphenhydramine Hcl 25 Mg Tablet) 50 mg PO Q4H PRN PRN Reason: agitation Haloperidol (Haloperidol 5 Mg Tablet) 10 mg PO Q4H PRN PRN Reason: agitation Last Admin: 04/03/22 22:17 Dose: 10 mg Haloperidol Lactate (Haloperidol Lactate 5 Mg/Ml Vial) 10 mg IM DAILY PRN PRN Reason: if refuses PO Hydroxyzine HCl (Hydroxyzine Hcl 25 Mg Tablet) 25 mg PO Q6H PRN PRN Reason: Anxiety Last Admin: 04/15/22 23:13 Dose: 25 mg Lidocaine HCl (Lidocaine 4 % Cream Kit) 1 appl TOPICAL DAILY PRN; Protocol PRN Reason: prophylactiinjection site pain Magnesium Hydroxide (Milk Of Magnesia 30 Ml Oral.Susp) 30 ml PO DAILY PRN PRN Reason: Constipation Trazodone HCl (Trazodone Hcl 50 Mg Tablet) 50 mg PO BEDTIME PRN PRN Reason: Insomnia Allergies Allergies Allergy/AdvReac Type Severity Reaction Status Date / Time No Known Allergies Allergy Verified 02/19/22 03:39 [No Known Allergies*] Assessment & Plan Assessment & Plan (1) Schizophrenia, paranoid, chronic with acute exacerbation: Status: Acute Code(s): F20.0 - Paranoid schizophrenia Plan HPI: Nura is a 26 y.o. male who carries a dx of paranoid schizophrenia. Hx of AH, has fixed delusion of believing neighbors are talking about him. Has DMH and ACCS services through [facility]. No Catarino's order. Hx of med non-adherence upon discharge.? Patient has been repeatedly coming to the emergency room asking for help with auditory hallucinations Formulation: dx Schizophrenia, paranoid type Ironer Or Presser discussed case with colleagues who have worked with patient in the past and also with staff on the unit for current admission. He has a hx of multiple inpatient admissions, including 1 about a month ago with very similar presentation, refusing to take meds, asking for discharge and deemed safe to return to the community. He has been re-presenting to [facility] after being discharged with the same presentation, not dangerous, but asking for help and then refusing treatment wanting discharge. He continues to have auditory hallucinations about his neighbor.?Initially, he has not expressed any delusional concerns that his neighbor is going to hurt him, just that his neighbors talking about him and so considered discharge.?However, Patient soon expressed concerns that his neighbors are plotting to harm him and that he is prepared to harm them back if he needs to defend himself.? As patient has presented several times to the emergency room in between admissions he is demonstrating that he is struggling to function in the community.? He has an extensive history of medication noncompliance. He has chronic paranoid delusions and auditory hallucinations that his neighbors are going to hurt him which intermittently expand to thoughts about preparing to defend himself.? Will continue treatment however, given his long hx of refractory psychosis, no insight and poor adherence with medication, team agrees that patient needs a more long-term admission to stabilize to the point where he could successfully live in the community. PLAN: Section 8b Patient Civil Committed and substituted judgment for medications ordered. Medication plan:? Trial of clozapine; overlap Haldol/Depak (minimally helpful) for now; goal to see if clozapine can be effective alone Clozapine? 325mg at DINNER time to mitigate daytime tiredness (to help with adherence; was split dosing) CANNOT REFUSE; COURT ORDERED; GIVE HALDOL 5MG IF REFUSES -patient has improved significantly so will leave at this dose for now ANC 04/06: 2.9 ANC weekly -DISCONTINUED Divalproex ER 1000 mg PO QHS on 03/26; patient has been refusing it and since goal is to see if monotherapy with clozapine can work, will just discontinue it for now; patient does not have history of bipolar disorder or manic episodes and this medication was used with only limited success for behavioral issues. -DISCONTNUE Haloperidol (was 10 mg BID; patient refuses; at this point might as well see if clozapine by itself can be effective as Haldol has only ever Seemed to be minimally helpful and it's not worth forcing an IM) Continue Benztropine Mesylate (Benztropine Mesylate 0.5 Mg Tablet)? 0.5 mg PO qHS; but on clozapine may not need Continue Clonidine HCl (Clonidine Hcl 0.1 Mg Tablet)? 0.1 mg PO TID PRN Reason: hyperarousal Trazodone HCl? 50 mg PO BEDTIME PRN Insomnia Hydroxyzine HCl (Hydroxyzine Hcl 25 Mg Tablet)? 25 mg PO Q6H PRN Anxiety DC Quetiapine qhs; pt does not want for day to day events (see below)... HOSPITAL COURSE 02/24: Ct treatment plan 02/25: Ct Rx plan. May need committment. Lacks insight and is non compliant with meds. 02/26: Pt adamantly does not want to increase haldol or depakote. Will start seroquel 300 mg QHS for sx of psychotic depression, has not had adequate trial on seroquel. May help with poor sleep. 02/27: Pt has been refusing all meds; AH complaints but denies any SI/HI and his demonstrate safe behaviors on the unit 02/28 retracted 3 day, remains preoccupied with auditory hallucinations of his neighbors and delusional thoughts that his neighbors are persecuting him agrees to stay for treatment; considering clozapine 03/01 Angry and demanding discharge and 3 day notice placed; difficult to engage; no insight.? Refused morning dose of Haldol.? At said he is taking clozapine before and resisted reality testing; however said will still consider 03/02 patient willingly taking clozapine 03/06 patient intermittently takes clozapine; he is disorganized in behavior and thought, intermittently yelling and accusing staff and posturing and threatening staff.? Patient struggles to understand that his rent is paid for; while talking about a specific topic, patient will intermittently respond with a disorganized irrelevant answer.? Patient has failed monotherapy with Seroquel, Palliperidone, Risperdal and Haldol.? Will continue to titrate clozapine as patient is willing to see if this can be effective.? Patient has a 3 day notice due today 03/06/2022.? Team finds that patient is unstable and not safe to return the community as he has ongoing auditory hallucinations and paranoid delusional thoughts that about his neighbors plotting to hurt him.? Will file for Civil commitment; also discussed is that patient may need long-term admission to better establish stability. 03/08 patient disorganized; refused labs making it difficult to titrate clozapine.? Will continue to trying get patient to allow labs 03/09 remains disorganized, sometimes adhering to treatment other times refusing it without any clear pattern.? Patient is not amenable to logical explanation and his engagement in tx is unpredictable making dosing with Clozapine (and depakote) difficult as it requires periodic blood work and controlled titration.? However, Will continue with attempts at clozapine since this seems to be best option for patient to become stabilized 03/10 remains disorganized; won't engage; continues to have AH 03/13 CIVIL COMMITMENT AND SUBSTITUTED JUDGMENT ORDERED 03/16 continue current tx plan 03/19 Patient has moments of insight but quickly descends back into struggles with paranoia, disorganized thinking, thinking AH are real. Patient struggles with taking medication are difficult to predict.?Today he said I feel good, why would it take medication? despite that during the same conversation he also said that he continues to hear his neighbors say mad crap And if they come after him something will happen. The Hope is that clozapine as a monotherapy will be sufficient; check writer discussed case with patient's past inpatient provider and there is no history of bipolar/manic episodes and Depakote only used for impulsivity/anger.? Thus, will lower Depakote to a 1000 mg q.h.s. With clozapine, it may be easier for patient to tolerate single dosing so will see if moving the entire dose to bedtime helps with adherence rather than being asked to take medications twice a day.? That said, sometimes patient wakes up in the morning and demands his morning medications so it is difficult to know The best way to mitigate his his anxiety around this issue. 03/26 patient has been refusing Depakote; since he does not have history of bi polar disorder manic episodes and this medication has had limited effect, will just discontinue for now and move forward with seen of clozapine can be effective on its own; will also DC Haldol Since patient refuses; at this point might as well see if clozapine by itself can be effective as Haldol has only ever Seemed to be minimally helpful. 03/27 denies auditory hallucinations but remains without any insight and saying that he will not take medications when he goes home because he is good. 03/28 Patient vacillates between being irritable and calm; sometimes he says he will take his medications when he goes home other times he says he is doing fine and does not need it. It is not clear if patient still hears auditory hallucinations or if they have resolved as his reporting is inconsistent. It remains necessary for patient to go to a long-term facility for continued medication management and to have a longer time without symptoms. 04/04 (not 04/05) patient overall more calm and excepting of being on the unit, waiting for further stabilization and outpatient services to be set up before returning to the community; does not want to go to [facility].? Patient's improvement is despite the fact that both Haldol and Depakote have been discontinued; off these medications he is less sedated and up earlier in the day.? Patient denies auditory hallucinations.? Intermittently he can accept that AH has resolved due to medication, but he does not have insight into presence of psychiatric disorder and need for ongoing treatment even when feeling stable.? That said, it is not clear that increasing doses of Clozaril would resolve this impaired insight; his improved presentation and desire to avoid side effects gives pause to further titrating clozapine.? Will leave here for now and monitor.? The remains significant concern the patient would discontinue his medications on discharge and team continues to agree that he needs a prolonged experience of being symptom free to connect his ongoing need for medication. 04/09 no changes 04/12 remains stable; staff discussed and think that patient is likely close to maximum benefit from clozapine so will keep at current dose for now. Concern is that any increase could cause side effects which would be a barrier to patient continue medication on discharge 04/16 Patient remains is stable Tried to discuss sexual side effects of medication but patient was very vague and it is on conclusive; other staff reports that this topic is come up in the past make it less likely related to clozapine MED Trials: Seroquel Palliperidone Risperdal Haldol I spent minutes with the patient and/or on the patient floor today, greater than?50% of which was spent counseling/coordinating care. Patient educated on: therapeutic strategies Informed Consent: further education needed Reason for contiued inpatient stay Substantial Risk for: rapid decompensation
[2022-04-16 18:00] VITALS: RESP 18
[2022-04-16] MEDS: Benztropine Mesylate 0.5 MG TABLET PO (20:13)
[2022-04-16] MEDS: hydrOXYzine HCL 25 MG TABLET PO (22:56)
--- NOTE | 2022-04-17 16:25 | P.PNPSI_ITS ---
Subjective Subjective Date of Service: 04/17/22 Reason For Visit: schizoaffective Interim History: no changes Mental Status Exam Mental Status Exam Narrative: Pt is alert and oriented; behavior, more calm and cooperative; dressed in casual attire, wearing casual cloths, adequately groomed and with adequate hygiene; mood more calm; affect constricted; eye contact adequate, appropriate; Speech is normal rate, mostly normal volume (sometimes loud when irritated); normal prosody; no intermittent psychomotor agitation; thought process mostly goal oriented; Thought content is on discharge; seems less perseverative on paranoid delusional worries about being persecuted by his neighbors; Denies SI/HI. denies AH;? Patients insight and judgment are impaired but have improved. Patient Appearance: Appropriate Patient Orientation: Person, Place and Situation Level of Consciousness: Alert Patient Behavior: Talkative, Restless (at times) and Good Eye Contact Mood Description: Apprehensive Affect Description: Constricted Patient Cognition Impaired: No Ability to Follow Directions: Good Speech Pattern: Spontaneous Speech Memory Description: Episodic Impaired Diagnostics Vital Signs (24Hr): Vital Signs - 24 hr 04/16/22 18:00 Respiratory Rate 18 BMI result Body Mass Index 36.2 Labs Results: 03/01/22 18:29 Labs: Laboratory Results - last 48 hr 04/15/22 17:57 Troponin I High Sens < 3.5 Medications Medications Current Medications Acetaminophen (Acetaminophen 325 Mg Tablet) 650 mg PO Q6H PRN PRN Reason: Headache/Pain Mild Scale (1-3) Last Admin: 03/03/22 22:41 Dose: 650 mg Al Hydroxide/Mg Hydroxide (Magnesium Hydrox/Alum Hydrox 30 Ml Oral.Susp) 30 ml PO Q6H PRN PRN Reason: Heartburn/Nausea Albuterol Sulfate (Albuterol Sulfate 90 Mcg 8 Gm Inhaler) 2 puff INHALE RQ4H PRN PRN Reason: Shortness Of Breath Benztropine Mesylate (Benztropine Mesylate 0.5 Mg Tablet) 0.5 mg PO BEDTIME JOE Last Admin: 04/16/22 20:13 Dose: 0.5 mg Clonidine HCl (Clonidine Hcl 0.1 Mg Tablet) 0.1 mg PO TID PRN; Protocol PRN Reason: hyperarousal Last Admin: 02/28/22 21:47 Dose: 0.1 mg Clozapine (Clozapine 100 Mg Tablet) 350 mg PO DAILY@1700 JOE Last Admin: 04/16/22 15:39 Dose: 350 mg Diphenhydramine HCl (Diphenhydramine Hcl 25 Mg Tablet) 50 mg PO Q4H PRN PRN Reason: agitation Haloperidol (Haloperidol 5 Mg Tablet) 10 mg PO Q4H PRN PRN Reason: agitation Last Admin: 04/03/22 22:17 Dose: 10 mg Haloperidol Lactate (Haloperidol Lactate 5 Mg/Ml Vial) 10 mg IM DAILY PRN PRN Reason: if refuses PO Hydroxyzine HCl (Hydroxyzine Hcl 25 Mg Tablet) 25 mg PO Q6H PRN PRN Reason: Anxiety Last Admin: 04/16/22 22:56 Dose: 25 mg Lidocaine HCl (Lidocaine 4 % Cream Kit) 1 appl TOPICAL DAILY PRN; Protocol PRN Reason: prophylactiinjection site pain Magnesium Hydroxide (Milk Of Magnesia 30 Ml Oral.Susp) 30 ml PO DAILY PRN PRN Reason: Constipation Trazodone HCl (Trazodone Hcl 50 Mg Tablet) 50 mg PO BEDTIME PRN PRN Reason: Insomnia Allergies Allergies Allergy/AdvReac Type Severity Reaction Status Date / Time No Known Allergies Allergy Verified 02/19/22 03:39 [No Known Allergies*] Assessment & Plan Assessment & Plan (1) Schizophrenia, paranoid, chronic with acute exacerbation: Status: Acute Code(s): F20.0 - Paranoid schizophrenia Plan HPI: Nura is a 26 y.o. male who carries a dx of paranoid schizophrenia. Hx of , has fixed delusion of believing neighbors are talking about him. Has DMH and ACCS services through [facility]. No Catarino's order. Hx of med non-adherence upon discharge.? Patient has been repeatedly coming to the emergency room asking for help with auditory hallucinations Formulation: dx Schizophrenia, paranoid type Press Helper discussed case with colleagues who have worked with patient in the past and also with staff on the unit for current admission. He has a hx of multiple inpatient admissions, including 1 about a month ago with very similar presentation, refusing to take meds, asking for discharge and deemed safe to return to the community. He has been re-presenting to [facility] after being discharged with the same presentation, not dangerous, but asking for help and then refusing treatment wanting discharge. He continues to have auditory hallucinations about his neighbor.?Initially, he has not expressed any delusional concerns that his neighbor is going to hurt him, just that his neighbors talking about him and so considered discharge.?However, Patient soon expressed concerns that his neighbors are plotting to harm him and that he is prepared to harm them back if he needs to defend himself.? As patient has presented several times to the emergency room in between admissions he is demonstrating that he is struggling to function in the community.? He has an extensive history of medication noncompliance. He has chronic paranoid delusions and auditory hallucinations that his neighbors are going to hurt him which intermittently expand to thoughts about preparing to defend himself.? Will continue treatment however, given his long hx of refractory psychosis, no insight and poor adherence with medication, team agrees that patient needs a more long-term admission to stabilize to the point where he could successfully live in the community. PLAN: Section 8b Patient Civil Committed and substituted judgment for medications ordered. Medication plan:? Trial of clozapine; overlap Haldol/Depak (minimally helpful) for now; goal to see if clozapine can be effective alone Clozapine? 325mg at DINNER time to mitigate daytime tiredness (to help with adherence; was split dosing) CANNOT REFUSE; COURT ORDERED; GIVE HALDOL 5MG IF REFUSES -patient has improved significantly so will leave at this dose for now ANC 04/06: 2.9 ANC weekly -DISCONTINUED Divalproex ER 1000 mg PO QHS on 03/26; patient has been refusing it and since goal is to see if monotherapy with clozapine can work, will just discontinue it for now; patient does not have history of bipolar disorder or manic episodes and this medication was used with only limited success for behavioral issues. -DISCONTNUE Haloperidol (was 10 mg BID; patient refuses; at this point might as well see if clozapine by itself can be effective as Haldol has only ever Seemed to be minimally helpful and it's not worth forcing an IM) Continue Benztropine Mesylate (Benztropine Mesylate 0.5 Mg Tablet)? 0.5 mg PO qHS; but on clozapine may not need Continue Clonidine HCl (Clonidine Hcl 0.1 Mg Tablet)? 0.1 mg PO TID PRN Reason: hyperarousal Trazodone HCl? 50 mg PO BEDTIME PRN Insomnia Hydroxyzine HCl (Hydroxyzine Hcl 25 Mg Tablet)? 25 mg PO Q6H PRN Anxiety DC Quetiapine qhs; pt does not want for day to day events (see below)... HOSPITAL COURSE 02/24: Ct treatment plan 02/25: Ct Rx plan. May need committment. Lacks insight and is non compliant with meds. 02/26: Pt adamantly does not want to increase haldol or depakote. Will start seroquel 300 mg QHS for sx of psychotic depression, has not had adequate trial on seroquel. May help with poor sleep. 02/27: Pt has been refusing all meds; AH complaints but denies any SI/HI and his demonstrate safe behaviors on the unit 02/28 retracted 3 day, remains preoccupied with auditory hallucinations of his neighbors and delusional thoughts that his neighbors are persecuting him agrees to stay for treatment; considering clozapine 03/01 Angry and demanding discharge and 3 day notice placed; difficult to engage; no insight.? Refused morning dose of Haldol.? At said he is taking clozapine before and resisted reality testing; however said will still consider 03/02 patient willingly taking clozapine 03/06 patient intermittently takes clozapine; he is disorganized in behavior and thought, intermittently yelling and accusing staff and posturing and threatening staff.? Patient struggles to understand that his rent is paid for; while talking about a specific topic, patient will intermittently respond with a disorganized irrelevant answer.? Patient has failed monotherapy with Seroquel, Palliperidone, Risperdal and Haldol.? Will continue to titrate clozapine as patient is willing to see if this can be effective.? Patient has a 3 day notice due today 03/06/2022.? Team finds that patient is unstable and not safe to return the community as he has ongoing auditory hallucinations and paranoid delusional thoughts that about his neighbors plotting to hurt him.? Will file for Civil commitment; also discussed is that patient may need long-term admission to better establish stability. 03/08 patient disorganized; refused labs making it difficult to titrate clozapine.? Will continue to trying get patient to allow labs 6 remains disorganized, sometimes adhering to treatment other times refusing it without any clear pattern.? Patient is not amenable to logical explanation and his engagement in tx is unpredictable making dosing with Clozapine (and depakote) difficult as it requires periodic blood work and controlled titration.? However, Will continue with attempts at clozapine since this seems to be best option for patient to become stabilized 03/10 remains disorganized; won't engage; continues to have AH 03/13 CIVIL COMMITMENT AND SUBSTITUTED JUDGMENT ORDERED 03/16 continue current tx plan 03/19 Patient has moments of insight but quickly descends back into struggles with paranoia, disorganized thinking, thinking AH are real. Patient struggles with taking medication are difficult to predict.?Today he said I feel good, why would it take medication? despite that during the same conversation he also said that he continues to hear his neighbors say mad crap And if they come after him something will happen. The Hope is that clozapine as a monotherapy will be sufficient; sports writer discussed case with patient's past inpatient provider and there is no history of bipolar/manic episodes and Depakote only used for impulsivity/anger.? Thus, will lower Depakote to a 1000 mg q.h.s. With clozapine, it may be easier for patient to tolerate single dosing so will see if moving the entire dose to bedtime helps with adherence rather than being asked to take medications twice a day.? That said, sometimes patient wakes up in the morning and demands his morning medications so it is difficult to know The best way to mitigate his his anxiety around this issue. 03/26 patient has been refusing Depakote; since he does not have history of bipolar disorder manic episodes and this medication has had limited effect, will just discontinue for now and move forward with seen of clozapine can be effective on its own; will also DC Haldol Since patient refuses; at this point might as well see if clozapine by itself can be effective as Haldol has only ever Seemed to be minimally helpful. 03/27 denies auditory hallucinations but remains without any insight and saying that he will not take medications when he goes home because he is good. 03/28 Patient vacillates between being irritable and calm; sometimes he says he will take his medications when he goes home other times he says he is doing fine and does not need it. It is not clear if patient still hears auditory hallucinations or if they have resolved as his reporting is inconsistent. It remains necessary for patient to go to a long-term facility for continued medication management and to have a longer time without symptoms. 04/04 (not 04/05) patient overall more calm and excepting of being on the unit, waiting for further stabilization and outpatient services to be set up before returning to the community; does not want to go to [facility].? Patient's improvement is despite the fact that both Haldol and Depakote have been discontinued; off these medications he is less sedated and up earlier in the day.? Patient denies auditory hallucinations.? Intermittently he can accept that AH has resolved due to medication, but he does not have insight into presence of psychiatric disorder and need for ongoing treatment even when feeling stable.? That said, it is not clear that increasing doses of Clozaril would resolve this impaired insight; his improved presentation and desire to avoid side effects gives pause to further titrating clozapine.? Will leave here for now and monitor.? The remains significant concern the patient would discontinue his medications on discharge and team continues to agree that he needs a prolonged experience of being symptom free to connect his ongoing need for medication. 04/09 no changes 04/12 remains stable; staff discussed and think that patient is likely close to maximum benefit from clozapine so will keep at current dose for now. Concern is that any increase could cause side effects which would be a barrier to patient continue medication on discharge 04/16 Patient remains is stable Tried to discuss sexual side effects of medication but patient was very vague and it is on conclusive; other staff reports that this topic is come up in the past make it less likely related to clozapine MED Trials: Seroquel Palliperidone Risperdal Haldol I spent minutes with the patient and/or on the patient floor today, greater than?50% of which was spent counseling/coordinating care. Reason for contiued inpatient stay Substantial Risk for: rapid decompensation
[2022-04-17] MEDS: cloZAPine 100 MG TABLET 350 MG PO (17:16)
[2022-04-17 18:00] VITALS: PULSE 79; RESP 14; TEMP 36.4; O2SAT 95
[2022-04-17] MEDS: Benztropine Mesylate 0.5 MG TABLET PO (20:17)
[2022-04-18] MEDS: hydrOXYzine HCL 25 MG TABLET PO (01:50)
--- NOTE | 2022-04-18 12:49 | P.PNPSI_ITS ---
Subjective Subjective Date of Service: 04/18/22 Reason For Visit: schizoaffective Interim History: Patient asking about meetings for ACCS. Patient sometimes understands that there needs to be several meetings before discharge, other times he thinks that he is going to be discharged after the 1st meeting. Otherwise patient is unchanged; has limited insight but says he feels better and no voices. He has worries that once he gets back to his apartment the voices will return as he does not grasp that these auditory hallucinations are a part of a psychiatric illness. Mental Status Exam Mental Status Exam Narrative: Pt is alert and oriented; behavior, more calm and cooperative; dressed in casual attire, wearing casual cloths, adequately groomed and with adequate hygiene; mood more calm; affect constricted; eye contact adequate, appropriate; Speech is normal rate, mostly normal volume (sometimes loud when irritated); normal prosody; no intermittent psychomotor agitation; thought process mostly goal oriented; Thought content is on discharge; he is less perseverative on paranoid delusional worries about being persecuted by his neighbors; Denies SI/HI. denies AH;? Patients insight and judgment are impaired but have improved. Patient Appearance: Appropriate Patient Orientation: Person, Place and Situation Level of Consciousness: Alert Patient Behavior: Talkative, Restless (at times) and Good Eye Contact Mood Description: Apprehensive Affect Description: Constricted Patient Cognition Impaired: No Ability to Follow Directions: Good Speech Pattern: Spontaneous Speech Memory Description: Episodic Impaired Diagnostics Vital Signs (24Hr): Vital Signs - 24 hr 04/17/22 18:00 Temperature 97.5 F Pulse Rate 79 Respiratory Rate 14 Pulse Oximetry 95 Oxygen Delivery Method Room Air BMI result Body Mass Index 36.2 Labs Results: 03/01/22 18:29 Medications Medications Current Medications Acetaminophen (Acetaminophen 325 Mg Tablet) 650 mg PO Q6H PRN PRN Reason: Headache/Pain Mild Scale (1-3) Last Admin: 03/03/22 22:41 Dose: 650 mg Al Hydroxide/Mg Hydroxide (Magnesium Hydrox/Alum Hydrox 30 Ml Oral.Susp) 30 ml PO Q6H PRN PRN Reason: Heartburn/Nausea Albuterol Sulfate (Albuterol Sulfate 90 Mcg 8 Gm Inhaler) 2 puff INHALE RQ4H PRN PRN Reason: Shortness Of Breath Benztropine Mesylate (Benztropine Mesylate 0.5 Mg Tablet) 0.5 mg PO BEDTIME JOE Last Admin: 04/17/22 20:17 Dose: 0.5 mg Clonidine HCl (Clonidine Hcl 0.1 Mg Tablet) 0.1 mg PO TID PRN; Protocol PRN Reason: hyperarousal Last Admin: 02/28/22 21:47 Dose: 0.1 mg Clozapine (Clozapine 100 Mg Tablet) 350 mg PO DAILY@1700 JOE Last Admin: 04/17/22 17:16 Dose: 350 mg Diphenhydramine HCl (Diphenhydramine Hcl 25 Mg Tablet) 50 mg PO Q4H PRN PRN Reason: agitation Haloperidol (Haloperidol 5 Mg Tablet) 10 mg PO Q4H PRN PRN Reason: agitation Last Admin: 04/03/22 22:17 Dose: 10 mg Haloperidol Lactate (Haloperidol Lactate 5 Mg/Ml Vial) 10 mg IM DAILY PRN PRN Reason: if refuses PO Hydroxyzine HCl (Hydroxyzine Hcl 25 Mg Tablet) 25 mg PO Q6H PRN PRN Reason: Anxiety Last Admin: 04/18/22 01:50 Dose: 25 mg Lidocaine HCl (Lidocaine 4 % Cream Kit) 1 appl TOPICAL DAILY PRN; Protocol PRN Reason: prophylactiinjection site pain Magnesium Hydroxide (Milk Of Magnesia 30 Ml Oral.Susp) 30 ml PO DAILY PRN PRN Reason: Constipation Trazodone HCl (Trazodone Hcl 50 Mg Tablet) 50 mg PO BEDTIME PRN PRN Reason: Insomnia Allergies Allergies Allergy/AdvReac Type Severity Reaction Status Date / Time No Known Allergies Allergy Verified 02/19/22 03:39 [No Known Allergies*] Assessment & Plan Assessment & Plan (1) Schizophrenia, paranoid, chronic with acute exacerbation: Status: Acute Code(s): F20.0 - Paranoid schizophrenia Plan HPI: Nura is a 26 y.o. male who carries a dx of paranoid schizophrenia. Hx of AH, has fixed delusion of believing neighbors are talking about him. Has DMH and ACCS services through [facility]. No Catarino's order. Hx of med non-adherence upon discharge.? 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 He has a hx of multiple inpatient admissions, including 1 about a month ago with very similar presentation, refusing to take meds, asking for discharge and deemed safe to return to the community. He has been re-presenting to [facility] ED after being discharged with the same presentation, not dangerous, but asking for help and then refusing treatment wanting discharge. He continues to have auditory hallucinations about his neighbor.?Initially, he has not expressed any delusional concerns that his neighbor is going to hurt him, just that his neighbors talking about him and so considered discharge.?However, Patient soon expressed concerns that his neighbors are plotting to harm him and that he is prepared to harm them back if he needs to defend himself.? As patient has presented several times to the emergency room in between admissions he is demonstrating that he is struggling to function in the community.? He has an extensive history of medication noncompliance. He has chronic paranoid delusions and auditory hallucinations that his neighbors are going to hurt him which intermittently expand to thoughts about preparing to defend himself.? Will génesis nue treatment however, given his long hx of refractory psychosis, no insight and poor adherence with medication, team agrees that patient needs a more long-term admission to stabilize to the point where he could successfully live in the community. During this admission, patient has significantly improved on clozapine. He remains so without Haldol and Depakote which have both been discontinued. He is pleasant and friendly. Auditory hallucinations are either absent or minimal. He remains without insight and worries that the voices of his neighbor will return once he goes back home, not understanding that these are auditory hallucinations associated with a psychiatric illness and to that a nd he will likely continually struggle with medication adherence; thus patient's stability in the community will directly correlate with the effectiveness of outpatient services. Patient has complained of sexual side effects from clozapine however it is unclear to what extent as patient is a very limited historian; also this topic is come up during past admissions on other medications and it is not clear if it is medication related. PLAN: Section 8b Patient Civil Committed and substituted judgment for medications ordered. Medication plan:? Trial of clozapine; overlap Haldol/Depak (minimally helpful) for now; goal to see if clozapine can be effective alone Clozapine? 325mg at DINNER time to mitigate daytime tiredness (to help with adherence; was split dosing) CANNOT REFUSE; COURT ORDERED; GIVE HALDOL 5MG IF REFUSES -patient has improved significantly so will leave at this dose for now so as to avoid risk of side-effects ANC 04/06: 2.9 ANC weekly -DISCONTINUED Divalproex ER 1000 mg PO QHS on 03/26; patient has been refusing it and since goal is to see if monotherapy with clozapine can work, will just discontinue it for now; patient does not have history of bipolar disorder or manic episodes and this medication was used with only limited success for behavioral issues. -DISCONTNUE Haloperidol (was 10 mg BID; patient refuses; at this point might as well see if clozapine by itself can be effective as Haldol has only ever Seemed to be minimally helpful and it's not worth forcing an IM) Continue Benztropine Mesylate (Benztropine Mesylate 0.5 Mg Tablet)? 0.5 mg PO qHS; but on clozapine may not need Continue Clonidine HCl (Clonidine Hcl 0.1 Mg Tablet)? 0.1 mg PO TID PRN Reason: hyperarousal Trazodone HCl? 50 mg PO BEDTIME PRN Insomnia Hydroxyzine HCl (Hydroxyzine Hcl 25 Mg Tablet)? 25 mg PO Q6H PRN Anxiety DC Quetiapine qhs; pt does not want for day to day events (see below)... HOSPITAL COURSE 02/24: Ct treatment plan 02/25: Ct Rx plan. May need committment. Lacks insight and is non compliant with meds. 02/26: Pt adamantly does not want to increase haldol or depakote. Will start seroquel 300 mg QHS for sx of psychotic depression, has not had adequate trial on seroquel. May help with poor sleep. 02/27: Pt has been refusing all meds; AH complaints but denies any SI/HI and his demonstrate safe behaviors on the unit 02/28 retracted 3 day, remains preoccupied with auditory hallucinations of his neighbors and delusional thoughts that his neighbors are persecuting him agrees to stay for treatment; considering clozapine 03/01 Angry and demanding discharge and 3 day notice placed; difficult to engage; no insight.? Refused morning dose of Haldol.? At said he is taking clozapine before and resisted reality testing; however said will still consider 03/02 patient willingly taking clozapine 03/06 patient intermittently takes clozapine; he is disorganized in behavior and thought, intermittently yelling and accusing staff and posturing and threatening staff.? Patient struggles to understand that his rent is paid for; while talking about a specific topic, patient will intermittently respond with a disorganized irrelevant answer.? Patient has failed monotherapy with Seroquel, Palliperidone, Risperdal and Haldol.? Will continue to titrate clozapine as patient is willing to see if this can be effective.? Patient has a 3 day notice due today 03/06/2022.? Team finds that patient is unstable and not safe to return the community as he has ongoing auditory hallucinations and paranoid delusional thoughts that about his neighbors plotting to hurt him.? Will file for Civil co mmitment; also discussed is that patient may need long-term admission to better establish stability. 03/08 patient disorganized; refused labs making it difficult to titrate clozapine.? Will continue to trying get patient to allow labs 03/09 remains disorganized, sometimes adhering to treatment other times refusing it without any clear pattern.? Patient is not amenable to logical explanation and his engagement in tx is unpredictable making dosing with Clozapine (and depakote) difficult as it requires periodic blood work and controlled titration.? However, Will continue with attempts at clozapine since this seems to be best option for patient to become stabilized 03/10 remains disorganized; won't engage; continues to have AH 03/13 CIVIL COMMITMENT AND SUBSTITUTED JUDGMENT ORDERED 03/16 continue current tx plan 03/19 Patient has moments of insight but quickly descends back into struggles with paranoia, disorganized thinking, thinking AH are real. Patient struggles with taking medication are difficult to predict.?Today he said I feel good, why would it take medication? despite that during the same conversation he also said that he continues to hear his neighbors say mad crap And if they come after him something will happen. The Hope is that clozapine as a monotherapy will be sufficient; press writer discussed case with patient's past inpatient provider and there is no history of bipolar/manic episodes and Depakote only used for impulsivity/anger.? Thus, will lower Depakote to a 1000 mg q.h.s. With clozapine, it may be easier for patient to tolerate single dosing so will see if moving the entire dose to bedtime helps with adherence rather than being asked to take medications twice a day.? That said, sometimes patient wakes up in the morning and demands his morning medications so it is difficult to know The best way to mitigate his his anxiety around this issue. 03/26 patient has been refusing Depakote; since he does not have history of bipolar disorder manic episodes and this medication has had limited effect, will just discontinue for now and move forward with seen of clozapine can be effective on its own; will also DC Haldol Since patient refuses; at this point might as well see if clozapine by itself can be effective as Haldol has only ever Seemed to be minimally helpful. 03/27 denies auditory hallucinations but remains without any insight and saying that he will not take medications when he goes home because he is good. 03/28 Patient vacillates between being irritable and calm; sometimes he says he will take his medications when he goes home other times he says he is doing fine and does not need it. It is not clear if patient still hears auditory hallucinations or if they have resolved as his reporting is inconsistent. It remains necessary for patient to go to a long-term facility for continued medication management and to have a longer time without symptoms. 04/04 (not 04/05) patient overall more calm and excepting of being on the unit, waiting for further stabilization and outpatient services to be set up before returning to the community; does not want to go to [facility].? Patient's improvement is despite the fact that both Haldol and Depakote have been discontinued; off these medications he is less sedated and up earlier in the day.? Patient denies auditory hallucinations.? Intermittently he can accept that AH has resolved due to medication, but he does not have insight into presence of psychiatric disorder and need for ongoing treatment even when feeling stable.? That said, it is not clear that increasing doses of Clozaril would resolve this impaired insight; his improved presentation and desire to avoid side effects gives pause to further titrating clozapine.? Will leave here for now and monitor.? The remains significant concern the patient would discontinue his medications on discharge and team continues to agree that he needs a prolonged experience of being symptom free to connect his ongoing need for medication. 04/09 no changes 04/12 remains stable; staff discussed and think that patient is likely close to maximum benefit from clozapine so will keep at current dose for now. Concern is that any increase could cause side effects which would be a barrier to patient continue medication on discharge 04/16 Patient remains is stable Tried to discuss sexual side effects of medication but patient was very vague and it is on conclusive; other staff reports that this topic is come up in the past make it less likely related to clozapine MED Trials: Seroquel Palliperidone Risperdal Haldol I spent minutes with the patient and/or on the patient floor today, greater than?50% of which was spent counseling/coordinating care. Patient educated on: diagnosis and therapeutic strategies Informed Consent: further education needed Reason for contiued inpatient stay Substantial Risk for: rapid decompensation
[2022-04-18] MEDS: cloZAPine 100 MG TABLET 350 MG PO (16:02)
[2022-04-18 18:00] VITALS: PULSE 75; TEMP 36.4; O2SAT 95
[2022-04-18] MEDS: Benztropine Mesylate 0.5 MG TABLET PO (20:02)
[2022-04-19 07:00] VITALS: BMI 37.0
[2022-04-19] MEDS: cloZAPine 100 MG TABLET 350 MG PO (16:20)
--- NOTE | 2022-04-19 17:25 | HO.PSYCHPN ---
Subjective Subjective Date of Service: 04/19/22 Reason For Visit: schizoaffective Interim History: Patient pleasant, friendly and interactive. He talks about looking for to going home. He talks about things he wants to buy. He has some improved understanding that he will have multiple ACCS meetings prior to discharge. The 1st is tomorrow Mental Status Exam Mental Status Exam Narrative: Pt is alert and oriented; behavior, more calm and cooperative; dressed in casual attire, wearing casual cloths, adequately groomed and with adequate hygiene; mood more calm; affect constricted; eye contact adequate, appropriate; Speech is normal rate, mostly normal volume (sometimes loud when irritated); normal prosody; no intermittent psychomotor agitation; thought process mostly goal oriented; Thought content is on discharge; he is less perseverative on paranoid delusional worries about being persecuted by his neighbors; Denies SI/HI. denies AH;? Patients insight and judgment are impaired but have improved. Patient Appearance: Appropriate Patient Orientation: Person, Place and Situation Level of Consciousness: Alert Patient Behavior: Talkative, Restless (at times) and Good Eye Contact Mood Description: Apprehensive Affect Description: Constricted Patient Cognition Impaired: No Ability to Follow Directions: Good Speech Pattern: Spontaneous Speech Memory Description: Episodic Impaired Diagnostics Vital Signs (24Hr): Vital Signs - 24 hr 04/18/22 18:00 Temperature 97.5 F Pulse Rate 75 Pulse Oximetry 95 Oxygen Delivery Method Room Air BMI result Body Mass Index 36.2 Labs Results: 03/01/22 18:29 Medications Medications Current Medications Acetaminophen (Acetaminophen 325 Mg Tablet) 650 mg PO Q6H PRN PRN Reason: Headache/Pain Mild Scale (1-3) Last Admin: 03/03/22 22:41 Dose: 650 mg Al Hydroxide/Mg Hydroxide (Magnesium Hydrox/Alum Hydrox 30 Ml Oral.Susp) 30 ml PO Q6H PRN PRN Reason: Heartburn/Nausea Albuterol Sulfate (Albuterol Sulfate 90 Mcg 8 Gm Inhaler) 2 puff INHALE RQ4H PRN PRN Reason: Shortness Of Breath Benztropine Mesylate (Benztropine Mesylate 0.5 Mg Tablet) 0.5 mg PO BEDTIME JOE Last Admin: 04/18/22 20:02 Dose: 0.5 mg Clonidine HCl (Clonidine Hcl 0.1 Mg Tablet) 0.1 mg PO TID PRN; Protocol PRN Reason: hyperarousal Last Admin: 02/28/22 21:47 Dose: 0.1 mg Clozapine (Clozapine 100 Mg Tablet) 350 mg PO DAILY@1700 JOE Last Admin: 04/19/22 16:20 Dose: 350 mg Diphenhydramine HCl (Diphenhydramine Hcl 25 Mg Tablet) 50 mg PO Q4H PRN PRN Reason: agitation Haloperidol (Haloperidol 5 Mg Tablet) 10 mg PO Q4H PRN PRN Reason: agitation Last Admin: 04/03/22 22:17 Dose: 10 mg Haloperidol Lactate (Haloperidol Lactate 5 Mg/Ml Vial) 10 mg IM DAILY PRN PRN Reason: if refuses PO Hydroxyzine HCl (Hydroxyzine Hcl 25 Mg Tablet) 25 mg PO Q6H PRN PRN Reason: Anxiety Last Admin: 04/18/22 01:50 Dose: 25 mg Lidocaine HCl (Lidocaine 4 % Cream Kit) 1 appl TOPICAL DAILY PRN; Protocol PRN Reason: prophylactiinjection site pain Magnesium Hydroxide (Milk Of Magnesia 30 Ml Oral.Susp) 30 ml PO DAILY PRN PRN Reason: Constipation Trazodone HCl (Trazodone Hcl 50 Mg Tablet) 50 mg PO BEDTIME PRN PRN Reason: Insomnia Allergies Allergies Allergy/AdvReac Type Severity Reaction Status Date / Time No Known Allergies Allergy Verified 02/19/22 03:39 [No Known Allergies*] Assessment & Plan Assessment & Plan (1) Schizophrenia, paranoid, chronic with acute exacerbation: Status: Acute Code(s): F20.0 - Paranoid schizophrenia Plan HPI: Nura is a 26 y.o. male who carries a dx of paranoid schizophrenia. Hx of AH, has fixed delusion of believing neighbors are talking about him. Has DMH and ACCS services through [facility]. No Catarino's order. Hx of med non-adherence upon discharge.? Patient has been repeatedly coming to the emergency room asking for help with auditory hallucinations Formulation: dx Schizophrenia, paranoid type Pin Setter discussed case with colleagues who have worked with patient in the past and also with staff on the unit for current admission. He has a hx of multiple inpatient admissions, including 1 about a month ago with very similar presentation, refusing to take meds, asking for discharge and deemed safe to return to the community. He has been re-presenting to [facility] after being discharged with the same presentation, not dangerous, but asking for help and then refusing treatment wanting discharge. He continues to have auditory hallucinations about his neighbor.?Initially, he has not expressed any delusional concerns that his neighbor is going to hurt him, just that his neighbors talking about him and so considered discharge.?However, Patient soon expressed concerns that his neighbors are plotting to harm him and that he is prepared to harm them back if he needs to defend himself.? As patient has presented several times to the emergency room in between admissions he is demonstrating that he is struggling to function in the community.? He has an extensive history of medication noncompliance. He has chronic paranoid delusions and auditory hallucinations that his neighbors are going to hurt him which intermittently expand to thoughts about preparing to defend himself.? Will continue treatment however, given his long hx of refractory psychosis, no insight and poor adherence with medication, team agrees that patient needs a more long-term admission to stabilize to the point where he could successfully live in the community.? During this admission, patient has significantly improved on clozapine.? He remains so without Haldol and Depakote which have both been discontinued.? He is pleasant and friendly.? Auditory hallucinations are either absent or minimal.? He remains without insight and worries that the voices of his neighbor will return once he goes back home, not understanding that these are auditory hallucinations associated with a psychiatric illness and to that and he will likely continually struggle with medication adherence; thus patient's stability in the community will directly correlate with the effectiveness of outpatient services.? Patient has complained of sexual side effects from clozapine however it is unclear to what extent as patient is a very limited historian; also this topic is come up during past admissions on other medications and it is not clear if it is medication related. PLAN: Section 8b Patient Civil Committed and substituted judgment for medications ordered. Medication plan:? Trial of clozapine; overlap Haldol/Depak (minimally helpful) for now; goal to see if clozapine can be effective alone Clozapine? 325mg at DINNER time to mitigate daytime tiredness (to help with adherence; was split dosing) CANNOT REFUSE; COURT ORDERED; GIVE HALDOL 5MG IF REFUSES -patient has improved significantly so will leave at this dose for now so as to avoid risk of side-effects ANC 04/13: 2.9 ANC weekly -DISCONTINUED Divalproex ER 1000 mg PO QHS on 03/26; patient has been refusing it and since goal is to see if monotherapy with clozapine can work, will just discontinue it for now; patient does not have history of bipolar disorder or manic episodes and this medication was used with only limited success for behavioral issues. -DISCONTNUE Haloperidol (was 10 mg BID; patient refuses; at this point might as well see if clozapine by itself can be effective as Haldol has only ever Seemed to be minimally helpful and it's not worth forcing an IM) Continue Benztropine Mesylate (Benztropine Mesylate 0.5 Mg Tablet)? 0.5 mg PO qHS; but on clozapine may not need Continue Clonidine HCl (Clonidine Hcl 0.1 Mg Tablet)? 0.1 mg PO TID PRN Reason: hyperarousal Trazodone HCl? 50 mg PO BEDTIME PRN Insomnia Hydroxyzine HCl (Hydroxyzine Hcl 25 Mg Tablet)? 25 mg PO Q6H PRN Anxiety DC Quetiapine qhs; pt does not want for day to day events (see below)... HOSPITAL COURSE 02/24: Ct treatment plan 02/25: Ct Rx plan. May need committment. Lacks insight and is non compliant with meds. 02/26: Pt adamantly does not want to increase haldol or depakote. Will start seroquel 300 mg QHS for sx of psychotic depression, has not had adequate trial on seroquel. May help with poor sleep. 02/27: Pt has been refusing all meds; AH complaints but denies any SI/HI and his demonstrate safe behaviors on the unit 02/28 retracted 3 day, remains preoccupied with auditory hallucinations of his neighbors and delusional thoughts that his neighbors are persecuting him agrees to stay for treatment; considering clozapine 03/01 Angry and demanding discharge and 3 day notice placed; difficult to engage; no insight.? Refused morning dose of Haldol.? At said he is taking clozapine before and resisted reality testing; however said will still consider 03/02 patient willingly taking clozapine 03/06 patient intermittently takes clozapine; he is disorganized in behavior and thought, intermittently yelling and accusing staff and posturing and threatening staff.? Patient struggles to understand that his rent is paid for; while talking about a specific topic, patient will intermittently respond with a disorganized irrelevant answer.? Patient has failed monotherapy with Seroquel, Palliperidone, Risperdal and Haldol.? Will continue to titrate clozapine as patient is willing to see if this can be effective.? Patient has a 3 day notice due today 03/06/2022.? Team finds that patient is unstable and not safe to return the community as he has ongoing auditory hallucinations and paranoid delusional thoughts that about his neighbors plotting to hurt him.? Will file for Civil commitment; also discussed is that patient may need long-term admission to better establish stability. 03/08 patient disorganized; refused labs making it difficult to titrate clozapine.? Will continue to trying get patient to allow labs 03/09 remains disorganized, sometimes adhering to treatment other times refusing it without any clear pattern.? Patient is not amenable to logical explanation and his engagement in tx is unpredictable making dosing with Clozapine (and depakote) difficult as it requires periodic blood work and controlled titration.? However, Will continue with attempts at clozapine since this seems to be best option for patient to become stabilized 03/10 remains disorganized; won't engage; continues to have AH 03/13 CIVIL COMMITMENT AND SUBSTITUTED JUDGMENT ORDERED 03/16 continue current tx plan 03/19 Patient has moments of insight but quickly descends back into struggles with paranoia, disorganized thinking, thinking AH are real. Patient struggles with taking medication are difficult to predict.?Today he said I feel good, why would it take medication? despite that during the same conversation he also said that he continues to hear his neighbors say mad crap And if they come after him something will happen. The Hope is that clozapine as a monotherapy will be sufficient; fiction writer discussed case with patient's past inpatient provider and there is no history of bipolar/manic episodes and Depakote only used for impulsivity/anger.? Thus, will lower Depakote to a 1000 mg q.h.s. With clozapine, it may be easier for patient to tolerate single dosing so will see if moving the entire dose to bedtime helps with adherence rather than being asked to take medications twice a day.? That said, sometimes patient wakes up in the morning and demands his morning medications so it is difficult to know The best way to mitigate his his anxiety around this issue. 03/26 patient has been refusing Depakote; since he does not have history of bipolar disorder manic episodes and this medication has had limited effect, will just discontinue for now and move forward with seen of clozapine can be effective on its own; will also DC Haldol Since patient refuses; at this point might as well see if clozapine by itself can be effective as Haldol has only ever Seemed to be minimally helpful. 03/27 denies auditory hallucinations but remains without any insight and saying that he will not take medications when he goes home because he is good. 03/28 Patient vacillates between being irritable and calm; sometimes he says he will take his medications when he goes home other times he says he is doing fine and does not need it. It is not clear if patient still hears auditory hallucinations or if they have resolved as his reporting is inconsistent. It remains necessary for patient to go to a long-term facility for continued medication management and to have a longer time without symptoms. 04/04 (not 04/05) patient overall more calm and excepting of being on the unit, waiting for further stabilization and outpatient services to be set up before returning to the community; does not want to go to [facility]? Patient's improvement is despite the fact that both Haldol and Depakote have been discontinued; off these medications he is less sedated and up earlier in the day.? Patient denies auditory hallucinations.? Intermittently he can accept that AH has resolved due to medication, but he does not have insight into presence of psychiatric disorder and need for ongoing treatment even when feeling stable.? That said, it is not clear that increasing doses of Clozaril would resolve this impaired insight; his improved presentation and desire to avoid side effects gives pause to further titrating clozapine.? Will leave here for now and monitor.? The remains significant concern the patient would discontinue his medications on discharge and team continues to agree that he needs a prolonged experience of being symptom free to connect his ongoing need for medication. 04/09 no changes 04/12 remains stable; staff discussed and think that patient is likely close to maximum benefit from clozapine so will keep at current dose for now. Concern is that any increase could cause side effects which would be a barrier to patient continue medication on discharge 04/16 Patient remains is stable Tried to discuss sexual side effects of medication but patient was very vague and it is on conclusive; other staff reports that this topic is come up in the past make it less likely related to clozapine 04/19 no changes MED Trials: Seroquel Palliperidone Risperdal Haldol I spent minutes with the patient and/or on the patient floor today, greater than?50% of which was spent counseling/coordinating care. Patient educated on: therapeutic strategies Informed Consent: further education needed Reason for contiued inpatient stay Substantial Risk for: inability to function and rapid decompensation
[2022-04-19 20:35] VITALS: BP 133/62; PULSE 106; TEMP 36.4
[2022-04-19] MEDS: Benztropine Mesylate 0.5 MG TABLET PO (20:36)
[2022-04-19] MEDS: hydrOXYzine HCL 25 MG TABLET PO (20:59)
--- NOTE | 2022-04-20 09:08 | PC.NURSE ---
pt refused bloodwork today
--- NOTE | 2022-04-20 10:38 | P.PNPSI_ITS ---
Subjective Subjective Date of Service: 04/20/22 Reason For Visit: schizoaffective Interim History: Patient in good mood. Anxious for his meeting with [facility] which social professionals informed went well. Patient showed headline writer his chart for future meetings; also showed headline writer that he was brought in or and soda which she was much appreciative of. Patient asked if headline writer would attend the next meeting to which headline writer agreed. Patient said that he knows he needs to keep taking his medications Mental Status Exam Mental Status Exam Narrative: Pt is alert and oriented; behavior, calm, friendly and cooperative; dressed in casual attire, wearing casual cloths, adequately groomed and with adequate hygiene; mood pleasant; affect congruent; eye contact adequate, appropriate; Speech is normal rate, normal volume; normal prosody; no intermittent psychomotor agitation; thought process goal oriented; Thought content is on discharge; he is less perseverative on paranoid delusional worries about being persecuted by his neighbors; Denies SI/HI. denies AH;? Patients insight and judgment are impaired but have improved and possibly at baseline. Patient Appearance: Appropriate Patient Orientation: Person, Place and Situation Level of Consciousness: Alert Patient Behavior: Talkative, Restless (at times) and Good Eye Contact Mood Description: Apprehensive Affect Description: Constricted Patient Cognition Impaired: No Ability to Follow Directions: Good Speech Pattern: Spontaneous Speech Memory Description: Episodic Impaired Diagnostics Vital Signs (24Hr): Vital Signs - 24 hr 04/19/22 20:35 Temperature 97.6 F Pulse Rate 106 H Blood Pressure 133/62 BMI result Body Mass Index 36.2 Labs Results: 03/01/22 18:29 Medications Medications Current Medications Acetaminophen (Acetaminophen 325 Mg Tablet) 650 mg PO Q6H PRN PRN Reason: Headache/Pain Mild Scale (1-3) Last Admin: 03/03/22 22:41 Dose: 650 mg Al Hydroxide/Mg Hydroxide (Magnesium Hydrox/Alum Hydrox 30 Ml Oral.Susp) 30 ml PO Q6H PRN PRN Reason: Heartburn/Nausea Albuterol Sulfate (Albuterol Sulfate 90 Mcg 8 Gm Inhaler) 2 puff INHALE RQ4H PRN PRN Reason: Shortness Of Breath Benztropine Mesylate (Benztropine Mesylate 0.5 Mg Tablet) 0.5 mg PO BEDTIME [facility] Last Admin: 04/19/22 20:36 Dose: 0.5 mg Clonidine HCl (Clonidine Hcl 0.1 Mg Tablet) 0.1 mg PO TID PRN; Protocol PRN Reason: hyperarousal Last Admin: 02/28/22 21:47 Dose: 0.1 mg Clozapine (Clozapine 100 Mg Tablet) 350 mg PO DAILY@1700 JOE Last Admin: 04/19/22 16:20 Dose: 350 mg Diphenhydramine HCl (Diphenhydramine Hcl 25 Mg Tablet) 50 mg PO Q4H PRN PRN Reason: agitation Haloperidol (Haloperidol 5 Mg Tablet) 10 mg PO Q4H PRN PRN Reason: agitation Last Admin: 04/03/22 22:17 Dose: 10 mg Haloperidol Lactate (Haloperidol Lactate 5 Mg/Ml Vial) 10 mg IM DAILY PRN PRN Reason: if refuses PO Hydroxyzine HCl (Hydroxyzine Hcl 25 Mg Tablet) 25 mg PO Q6H PRN PRN Reason: Anxiety Last Admin: 04/19/22 20:59 Dose: 25 mg Lidocaine HCl (Lidocaine 4 % Cream Kit) 1 appl TOPICAL DAILY PRN; Protocol PRN Reason: prophylactiinjection site pain Magnesium Hydroxide (Milk Of Magnesia 30 Ml Oral.Susp) 30 ml PO DAILY PRN PRN Reason: Constipation Trazodone HCl (Trazodone Hcl 50 Mg Tablet) 50 mg PO BEDTIME PRN PRN Reason: Insomnia Allergies Allergies Allergy/AdvReac Type Severity Reaction Status Date / Time No Known Allergies Allergy Verified 02/19/22 03:39 [No Known Allergies*] Assessment & Plan Assessment & Plan (1) Schizophrenia, paranoid, chronic with acute exacerbation: Status: Acute Code(s): F20.0 - Paranoid schizophrenia Plan HPI: Nura is a 26 y.o. male who carries a dx of paranoid schizophrenia. Hx of AH, has fixed delusion of believing neighbors are talking about him. Has [facility] and [facility] services through [facility]. No Catarino's order. Hx of med non-adherence upon discharge.? Patient has been repeatedly coming to the emergency room asking for help with auditory hallucinations Formulation: dx Schizophrenia, paranoid type Supervisor Public Message Service discussed case with colleagues who have worked with patient in the past and also with staff on the unit for current admission. He has a hx of multiple inpatient admissions, including 1 about a month ago with very similar presentation, refusing to take meds, asking for discharge and deemed safe to return to the community. He has been re-presenting to [facility] after being discharged with the same presentation, not dangerous, but asking for help and then refusing treatment wanting discharge. He continues to have auditory hallucinations about his neighbor.?Initially, he has not expressed any delusional concerns that his neighbor is going to hurt him, just that his neig hbors talking about him and so considered discharge.?However, Patient soon expressed concerns that his neighbors are plotting to harm him and that he is prepared to harm them back if he needs to defend himself.? As patient has presented several times to the emergency room in between admissions he is demonstrating that he is struggling to function in the community.? He has an extensive history of medication noncompliance. He has chronic paranoid delusions and auditory hallucinations that his neighbors are going to hurt him which intermittently expand to thoughts about preparing to defend himself.? Will continue treatment however, given his long hx of refractory psychosis, no insight and poor adherence with medication, team agrees that patient needs a more long-term admission to stabilize to the point where he could successfully live in the community.? During this admission, patient has significantly improved on clozapine.? He remains so without Haldol and Depakote which have both been discontinued.? He is pleasant and friendly.? Auditory hallucinations are either absent or minimal.? He remains without insight and worries that the voices of his neighbor will return once he goes back home, not understanding that these are auditory hallucinations associated with a psychiatric illness and to that and he will likely continually struggle with medication adherence; thus patient's stability in the community will directly correlate with the effectiveness of outpatient services.? Patient has complained of sexual side effects from clozapine however it is unclear to what extent as patient is a very limited historian; also this topic is come up during past admissions on other medications and it is not clear if it is medication related. PLAN: Section 8b Patient Civil Committed and substituted judgment for medications ordered. Medication plan:? Trial of clozapine; overlap Haldol/Depak (minimally helpful) for now; goal to see if clozapine can be effective alone Clozapine? 325mg at DINNER time to mitigate daytime tiredness (to help with adherence; was split dosing) CANNOT REFUSE; COURT ORDERED; GIVE HALDOL 5MG IF REFUSES -patient has improved significantly so will leave at this dose for now so as to avoid risk of side-effects ANC 3.4 on 04/20/22 ANC weekly -DISCONTINUED Divalproex ER 1000 mg PO QHS on 03/26; patient has been refusing it and since goal is to see if monotherapy with clozapine can work, will just discontinue it for now; patient does not have history of bipolar disorder or manic episodes and this medication was used with only limited success for behavioral issues. -DISCONTNUE Haloperidol (was 10 mg BID; patient refuses; at this point might as well see if clozapine by itself can be effective as Haldol has only ever Seemed to be minimally helpful and it's not worth forcing an IM) Continue Benztropine Mesylate (Benztropine Mesylate 0.5 Mg Tablet)? 0.5 mg PO qHS; but on clozapine may not need Continue Clonidine HCl (Clonidine Hcl 0.1 Mg Tablet)? 0.1 mg PO TID PRN Reason: hyperarousal Trazodone HCl? 50 mg PO BEDTIME PRN Insomnia Hydroxyzine HCl (Hydroxyzine Hcl 25 Mg Tablet)? 25 mg PO Q6H PRN Anxiety DC Quetiapine qhs; pt does not want for day to day events (see below)... HOSPITAL COURSE 02/24: Ct treatment plan 02/25: Ct Rx plan. May need committment. Lacks insight and is non compliant with meds. 02/26: Pt adamantly does not want to increase haldol or depakote. Will start seroquel 300 mg QHS for sx of psychotic depression, has not had adequate trial on seroquel. May help with poor sleep. 02/27: Pt has been refusing all meds; AH complaints but denies any SI/HI and his demonstrate safe behaviors on the unit 02/28 retracted 3 day, remains preoccupied with auditory hallucinations of his neighbors and delusional thoughts that his neighbors are persecuting him agrees to stay for treatment; considering clozapine 03/01 Angry and demanding discharge and 3 day notice placed; difficult to engage; no insight.? Refused morning dose of Haldol.? At said he is taking clozapine before and resisted reality testing; however said will still consider 03/02 patient willingly taking clozapine 03/06 patient intermittently takes clozapine; he is disorganized in behavior and thought, intermittently yelling and accusing staff and posturing and threatening staff.? Patient struggles to understand that his rent is paid for; while talking about a specific topic, patient will intermittently respond with a disorganized irrelevant answer.? Patient has failed monotherapy with Seroquel, Palliperidone, Risperdal and Haldol.? Will continue to titrate clozapine as patient is willing to see if this can be effective.? Patient has a 3 day notice due today 03/06/2022.? Team finds that patient is unstable and not safe to return the community as he has ongoing auditory hallucinations and paranoid delusional thoughts that about his neighbors plotting to hurt him.? Will file for Civil commitment; also discussed is that patient may need long-term admission to better establish stability. 03/08 patient disorganized; refused labs making it difficult to titrate clozapine.? Will continue to trying get patient to allow labs 03/09 remains disorganized, sometimes adhering to treatment other times refusing it without any clear pattern.? Patient is not amenable to logical explanation and his engagement in tx is unpredictable making dosing with Clozapine (and depakote) difficult as it requires periodic blood work and controlled titration.? However, Will continue with attempts at clozapine since this seems to be best option for patient to become stabilized 03/10 remains disorganized; won't engage; continues to have AH 03/13 CIVIL COMMITMENT AND SUBSTITUTED JUDGMENT ORDERED 03/16 continue current tx plan 03/19 Patient has moments of insight but quickly descends back into struggles with paranoia, disorganized thinking, thinking AH are real. Patient struggles with taking medication are difficult to predict.?Today he said I feel good, why would it take medication? despite that during the same conversation he also said that he continues to hear his neighbors say mad crap And if they come after him something will happen. The Hope is that clozapine as a monotherapy will be sufficient; headline writer discussed case with patient's past inpatient provider and there is no history of bipolar/manic episodes and Depakote only used for impulsivity/anger.? Thus, will lower Depakote to a 1000 mg q.h.s. With clozapine, it may be easier for patient to tolerate single dosing so will see if moving the entire dose to bedtime helps with adherence rather than being asked to take medications twice a day.? That said, sometimes patient wakes up in the morning and demands his morning medications so it is difficult to know The best way to mitigate his his anxiety around this issue. 03/26 patient has been refusing Depakote; since he does not have history of bipolar disorder manic episodes and this medication has had limited effect, will just discontinue for now and move forward with seen of clozapine can be effective on its own; will also DC Haldol Since patient refuses; at this point might as well see if clozapine by itself can be effective as Haldol has only ever Seemed to be minimally helpful. 03/27 denies auditory hallucinations but remains without any insight and saying that he will not take medications when he goes home because he is good. 03/28 Patient vacillates between being irritable and calm; sometimes he says he will take his medications when he goes home other times he says he is doing fine and does not need it. It is not clear if patient still hears auditory hallucinations or if they have resolved as his reporting is inconsistent. It remains necessary for patient to go to a long-term facility for continued medication management and to have a longer time without symptoms. 04/04 (not 04/05) patient overall more calm and excepting of being on the unit, waiting for further stabilization and outpatient services to be set up before returning to the community; does not want to go to [facility].? Patient's improvement is despite the fact that both Haldol and Depakote have been discontinued; off these medications he is less sedated and up earlier in the day.? Patient denies auditory hallucinations.? Intermittently he can accept that AH has resolved due to medication, but he does not have insight into presence of psychiatric disor tamia and need for ongoing treatment even when feeling stable.? That said, it is not clear that increasing doses of Clozaril would resolve this impaired insight; his improved presentation and desire to avoid side effects gives pause to further titrating clozapine.? Will leave here for now and monitor.? The remains significant concern the patient would discontinue his medications on discharge and team continues to agree that he needs a prolonged experience of being symptom free to connect his ongoing need for medication. 04/09 no changes 04/12 remains stable; staff discussed and think that patient is likely close to maximum benefit from clozapine so will keep at current dose for now. Concern is that any increase could cause side effects which would be a barrier to patient continue medication on discharge 04/16 Patient remains is stable Tried to discuss sexual side effects of medication but patient was very vague and it is on conclusive; other staff reports that this topic is come up in the past make it less likely related to clozapine 04/19 no changes 04/20 successful meeting today with [facility]; remains calm and pleasant MED Trials: Seroquel Palliperidone Risperdal Haldol I spent minutes with the patient and/or on the patient floor today, greater than?50% of which was spent counseling/coordinating care. Patient educated on: medication risk/benefits Informed Consent: understands (more today than usual) Reason for contiued inpatient stay Substantial Risk for: rapid decompensation
[2022-04-20 11:15] LABS: Neutrophils Absolute Auto 3.4 x10*3/uL (2.0-8.3); WBCANC 7.4 X10*3/uL
[2022-04-20] MEDS: cloZAPine 100 MG TABLET 350 MG PO (15:54)
[2022-04-20] MEDS: Benztropine Mesylate 0.5 MG TABLET PO (17:19)
[2022-04-20] MEDS: hydrOXYzine HCL 25 MG TABLET PO (20:58)
[2022-04-21] MEDS: cloZAPine 100 MG TABLET 350 MG PO (15:45)
--- NOTE | 2022-04-21 17:27 | P.PNPSI_ITS ---
Subjective Subjective Date of Service: 04/21/22 Reason For Visit: schizoaffective Interim History: Good mood, friendly; asking about meetings and when he can discharge. Accepts answers smiles and says he looking forward to discharging and going swimming Mental Status Exam Mental Status Exam Narrative: Pt is alert and oriented; behavior, calm, friendly and cooperative; dressed in casual attire, wearing casual cloths, adequately groomed and with adequate hygiene; mood pleasant; affect congruent; eye contact adequate, appropriate; Speech is normal rate, normal volume; normal prosody; no intermittent psychomotor agitation; thought process goal oriented; Thought content is on discharge; he is less perseverative on paranoid delusional worries about being persecuted by his neighbors; Denies SI/HI. denies AH;? Patients insight and judgment are impaired but have improved and possibly at baseline. Patient Behavior: Good Eye Contact Diagnostics Vital Signs (24Hr): BMI result Body Mass Index 37.0 Labs Results: 03/01/22 18:29 Labs: Laboratory Results - last 48 hr 04/20/22 11:04 Absolute Neuts (auto) 3.4 Medications Medications Current Medications Acetaminophen (Acetaminophen 325 Mg Tablet) 650 mg PO Q6H PRN PRN Reason: Headache/Pain Mild Scale (1-3) Last Admin: 03/03/22 22:41 Dose: 650 mg Al Hydroxide/Mg Hydroxide (Magnesium Hydrox/Alum Hydrox 30 Ml Oral.Susp) 30 ml PO Q6H PRN PRN Reason: Heartburn/Nausea Albuterol Sulfate (Albuterol Sulfate 90 Mcg 8 Gm Inhaler) 2 puff INHALE RQ4H PRN PRN Reason: Shortness Of Breath Benztropine Mesylate (Benztropine Mesylate 0.5 Mg Tablet) 0.5 mg PO BEDTIME JOE Stop: 04/22/22 23:59 Last Admin: 04/20/22 17:19 Dose: 0.5 mg Benztropine Mesylate (Benztropine Mesylate 0.5 Mg Tablet) 0.5 mg PO ONCE PRN PRN Reason: EPS Clonidine HCl (Clonidine Hcl 0.1 Mg Tablet) 0.1 mg PO TID PRN; Protocol PRN Reason: hyperarousal Last Admin: 02/28/22 21:47 Dose: 0.1 mg Clozapine (Clozapine 100 Mg Tablet) 350 mg PO DAILY@1700 JOE Last Admin: 04/21/22 15:45 Dose: 350 mg Diphenhydramine HCl (Diphenhydramine Hcl 25 Mg Tablet) 50 mg PO Q4H PRN PRN Reason: agitation Haloperidol (Haloperidol 5 Mg Tablet) 10 mg PO Q4H PRN PRN Reason: agitation Last Admin: 04/03/22 22:17 Dose: 10 mg Haloperidol Lactate (Haloperidol Lactate 5 Mg/Ml Vial) 10 mg IM DAILY PRN PRN Reason: if refuses PO Hydroxyzine HCl (Hydroxyzine Hcl 25 Mg Tablet) 25 mg PO Q6H PRN PRN Reason: Anxiety Last Admin: 04/20/22 20:58 Dose: 25 mg Lidocaine HCl (Lidocaine 4 % Cream Kit) 1 appl TOPICAL DAILY PRN; Protocol PRN Reason: prophylactiinjection site pain Magnesium Hydroxide (Milk Of Magnesia 30 Ml Oral.Susp) 30 ml PO DAILY PRN PRN Reason: Constipation Trazodone HCl (Trazodone Hcl 50 Mg Tablet) 50 mg PO BEDTIME PRN PRN Reason: Insomnia Allergies Allergies Allergy/AdvReac Type Severity Reaction Status Date / Time No Known Allergies Allergy Verified 02/19/22 03:39 [No Known Allergies*] Assessment & Plan Assessment & Plan (1) Schizophrenia, paranoid, chronic with acute exacerbation: Status: Acute Code(s): F20.0 - Paranoid schizophrenia Plan HPI: Nura is a 26 y.o. male who carries a dx of paranoid schizophrenia. Hx of , has fixed delusion of believing neighbors are talking about him. Has DMH and ACCS services through [facility]. No Catarino's order. Hx of med non-adherence upon discharge.? Patient has been repeatedly coming to the emergency room asking for help with auditory hallucinations Formulation: dx Schizophrenia, paranoid type University Counselor discussed case with colleagues who have worked with patient in the past and also with staff on the unit for current admission. He has a hx of multiple inpatient admissions, including 1 about a month ago with very similar presentation, refusing to take meds, asking for discharge and deemed safe to return to the community. He has been re-presenting to [facility] after being discharged with the same presentation, not dangerous, but asking for help and then refusing treatment wanting discharge. He continues to have auditory hallucinations about his neighbor.?Initially, he has not expressed any delusional concerns that his neighbor is going to hurt him, just that his neighbors talking about him and so considered discharge.?However, Patient soon expressed concerns that his neighbors are plotting to harm him and that he is prepared to harm them back if he needs to defend himself.? As patient has presented several times to the emergency room in between admissions he is demonstrating that he is struggling to function in the community.? He has an extensive history of medication noncompliance. He has chronic paranoid delusions and auditory hallucinations that his neighbors are going to hurt him which intermittently expand to thoughts about preparing to defend himself.? Will continue treatment however, given his long hx of refractory psychosis, no insight and poor adherence with medication, team agrees that patient needs a more long-term admission to stabilize to the point where he could successfully live in the community.? During this admission, patient has significantly improv ed on clozapine.? He remains so without Haldol and Depakote which have both been discontinued.? He is pleasant and friendly.? Auditory hallucinations are either absent or minimal.? He remains without insight and worries that the voices of his neighbor will return once he goes back home, not understanding that these are auditory hallucinations associated with a psychiatric illness and to that and he will likely continually struggle with medication adherence; thus patient's stability in the community will directly correlate with the effectiveness of outpatient services.? Patient has complained of sexual side effects from clozapine however it is unclear to what extent as patient is a very limited historian; also this topic is come up during past admissions on other medications and it is not clear if it is medication related. PLAN: Section 8b Patient Civil Committed and substituted judgment for medications ordered. Medication plan:? Trial of clozapine; overlap Haldol/Depak (minimally helpful) for now; goal to see if clozapine can be effective alone Clozapine? 325mg at DINNER time to mitigate daytime tiredness (to help with adherence; was split dosing) CANNOT REFUSE; COURT ORDERED; GIVE HALDOL 5MG IF REFUSES -patient has improved significantly so will leave at this dose for now so as to avoid risk of side-effects ANC 3.4 on 04/20/22 ANC weekly -DISCONTINUED Divalproex ER 1000 mg PO QHS on 03/26; patient has been refusing it and since goal is to see if monotherapy with clozapine can work, will just discontinue it for now; patient does not have history of bipolar disorder or manic episodes and this medication was used with only limited success for behavioral issues. -DISCONTNUE Haloperidol (was 10 mg BID; patient refuses; at this point might as well see if clozapine by itself can be effective as Haldol has only ever Seemed to be minimally helpful and it's not worth forcing an IM) Continue Benztropine Mesylate (Benztropine Mesylate 0.5 Mg Tablet)? 0.5 mg PO qHS; but on clozapine may not need Continue Clonidine HCl (Clonidine Hcl 0.1 Mg Tablet)? 0.1 mg PO TID PRN Reason: hyperarousal Trazodone HCl? 50 mg PO BEDTIME PRN Insomnia Hydroxyzine HCl (Hydroxyzine Hcl 25 Mg Tablet)? 25 mg PO Q6H PRN Anxiety DC Quetiapine qhs; pt does not want for day to day events (see below)... HOSPITAL COURSE 02/24: Ct treatment plan 02/25: Ct Rx plan. May need committment. Lacks insight and is non compliant with meds. 02/26: Pt adamantly does not want to increase haldol or depakote. Will start seroquel 300 mg QHS for sx of psychotic depression, has not had adequate trial on seroquel. May help with poor sleep. 02/27: Pt has been refusing all meds; AH complaints but denies any SI/HI and his demonstrate safe behaviors on the unit 02/28 retracted 3 day, remains preoccupied with auditory hallucinations of his neighbors and delusional thoughts that his neighbors are persecuting him agrees to stay for treatment; considering clozapine 03/01 Angry and demanding discharge and 3 day notice placed; difficult to engage; no insight.? Refused morning dose of Haldol.? At said he is taking clozapine before and resisted reality testing; however said will still consider 03/02 patient willingly taking clozapine 03/06 patient intermittently takes clozapine; he is disorganized in behavior and thought, intermittently yelling and accusing staff and posturing and threatening staff.? Patient struggles to understand that his rent is paid for; while talking about a specific topic, patient will intermittently respond with a disorganized irrelevant answer.? Patient has failed monotherapy with Seroquel, Palliperidone, Risperdal and Haldol.? Will continue to titrate clozapine as patient is willing to see if this can be effective.? Patient has a 3 day notice due today 03/06/2022.? Team finds that patient is unstable and not safe to return the community as he has ongoing auditory hallucinations and paranoid delusional thoughts that about his neighbors plotting to hurt him.? Will file for Civil commitment; also discussed is that patient may need long-term admission to better establish stability. 03/08 patient disorganized; refused labs making it difficult to titrate clozapine.? Will continue to trying get patient to allow labs 03/09 remains disorganized, sometimes adhering to treatment other times refusing it without any clear pattern.? Patient is not amenable to logical explanation and his engagement in tx is unpredictable making dosing with Clozapine (and depakote) difficult as it requires periodic blood work and controlled titration.? However, Will continue with attempts at clozapine since this seems to be best option for patient to become stabilized 03/10 remains disorganized; won't engage; continues to have AH 03/13 CIVIL COMMITMENT AND SUBSTITUTED JUDGMENT ORDERED 03/16 continue current tx plan 03/19 Patient has moments of insight but quickly descends back into struggles with paranoia, disorganized thinking, thinking AH are real. Patient struggles with taking medication are difficult to predict.?Today he said I feel good, why would it take medication? despite that during the same conversation he also said that he continues to hear his neighbors say mad crap And if they come after him something will happen. The Hope is that clozapine as a monotherapy will be sufficient; proposal lead writer discussed case with patient's past inpatient provider and there is no history of bipolar/manic episodes and Depakote only used for impulsivity/anger.? Thus, will lower Depakote to a 1000 mg q.h.s. With clozapine, it may be easier for patient to tolerate single dosing so will see if moving the entire dose to bedtime helps with adherence rather than being asked to take medications twice a day.? That said, sometimes patient wakes up in the morning and demands his morning medications so it is difficult to know The best way to mitigate his his anxiety around this issue. 03/26 patient has been refusing Depakote; since he does not have history of bipolar disorder manic episodes and this medication has had limited effect, will just discontinue for now and move forward with seen of clozapine can be effective on its own; will also DC Haldol Since patient refuses; at this point might as well see if clozapine by itself can be effective as Haldol has only ever Seemed to be minimally helpful. 03/27 denies auditory hallucinations but remains without any insight and saying that he will not take medications when he goes home because he is good. 03/28 Patient vacillates between being irritable and calm; sometimes he says he will take his medications when he goes home other times he says he is doing fine and does not need it. It is not clear if patient still hears auditory hallucinations or if they have resolved as his reporting is inconsistent. It remains necessary for patient to go to a long-term facility for continued medication management and to have a longer time without symptoms. 04/04 (not 04/05) patient overall more calm and excepting of being on the unit, waiting for further stabilization and outpatient services to be set up before returning to the community; does not want to go to [facility].? Patient's improvement is despite the fact that both Haldol and Depakote have been discontinued; off these medications he is less sedated and up earlier in the day.? Patient denies auditory hallucinations.? Intermittently he can accept that AH has resolved due to medication, but he does not have insight into presence of psychiatric disorder and need for ongoing treatment even when feeling stable.? That said, it is not clear that increasing doses of Clozaril would resolve this impaired insight; his improved presentation and desire to avoid side effects gives pause to further titrating clozapine.? Will leave here for now and monitor.? The remains significant concern the patient would discontinue his medications on discharge and team continues to agree that he needs a prolonged experience of being symptom free to connect his ongoing need for medication. 04/09 no changes 04/12 remains stable; staff discussed and think that patient is likely close to maximum benefit from clozapine so will keep at current dose for now. Concern is that any increase could cause side effects which would be a barrier to patient continue medication on discharge 04/16 Patient remains is stable Tried to discuss sexual side effects of medication but patient was very vague and it is on conclusive; other staff reports that this topic is come up in the past make it less likely related to clozapine 04/19 no changes 04/20 successful meeting today with ACCS; remains calm and pleasant MED Trials: Seroquel Palliperidone Risperdal Haldol I spent minutes with the patient and/or on the patient floor today, greater than?50% of which was spent counseling/coordinating care. Patient educated on: therapeutic strategies Informed Consent: understands Reason for contiued inpatient stay Substantial Risk for: inability to function
[2022-04-21 18:00] VITALS: RESP 18; TEMP 36.8; O2SAT 94
[2022-04-21] MEDS: Benztropine Mesylate 0.5 MG TABLET PO (21:03)
[2022-04-21] MEDS: hydrOXYzine HCL 25 MG TABLET PO (21:33)
--- NOTE | 2022-04-22 11:32 | HO.PSYCHPN ---
Subjective Subjective Date of Service: 04/22/22 Reason For Visit: schizoaffective Interim History: Late entry for patient seen on 04/22 No changes; stable; cooperative, friendly Mental Status Exam Mental Status Exam Narrative: Pt is alert and oriented; behavior, calm, friendly and cooperative; dressed in casual attire, wearing casual cloths, adequately groomed and with adequate hygiene; mood pleasant; affect congruent; eye contact adequate, appropriate; Speech is normal rate, normal volume; normal prosody; no intermittent psychomotor agitation; thought process goal oriented; Thought content is on discharge; he is less perseverative on paranoid delusional worries about being persecuted by his neighbors; Denies SI/HI. denies AH;? Patients insight and judgment are impaired but have improved and possibly at baseline. Diagnostics Vital Signs (24Hr): Vital Signs - 24 hr 04/22/22 18:00 Respiratory Rate 18 BMI result Body Mass Index 37.0 Labs Results: 03/01/22 18:29 Medications Medications Current Medications Acetaminophen (Acetaminophen 325 Mg Tablet) 650 mg PO Q6H PRN PRN Reason: Headache/Pain Mild Scale (1-3) Last Admin: 03/03/22 22:41 Dose: 650 mg Al Hydroxide/Mg Hydroxide (Magnesium Hydrox/Alum Hydrox 30 Ml Oral.Susp) 30 ml PO Q6H PRN PRN Reason: Heartburn/Nausea Albuterol Sulfate (Albuterol Sulfate 90 Mcg 8 Gm Inhaler) 2 puff INHALE RQ4H PRN PRN Reason: Shortness Of Breath Benztropine Mesylate (Benztropine Mesylate 0.5 Mg Tablet) 0.5 mg PO ONCE PRN PRN Reason: EPS Clonidine HCl (Clonidine Hcl 0.1 Mg Tablet) 0.1 mg PO TID PRN; Protocol PRN Reason: hyperarousal Last Admin: 02/28/22 21:47 Dose: 0.1 mg Clozapine (Clozapine 100 Mg Tablet) 350 mg PO DAILY@1700 JOE Last Admin: 04/22/22 15:22 Dose: 350 mg Diphenhydramine HCl (Diphenhydramine Hcl 25 Mg Tablet) 50 mg PO Q4H PRN PRN Reason: agitation Haloperidol (Haloperidol 5 Mg Tablet) 10 mg PO Q4H PRN PRN Reason: agitation Last Admin: 04/03/22 22:17 Dose: 10 mg Haloperidol Lactate (Haloperidol Lactate 5 Mg/Ml Vial) 10 mg IM DAILY PRN PRN Reason: if refuses PO Hydroxyzine HCl (Hydroxyzine Hcl 25 Mg Tablet) 25 mg PO Q6H PRN PRN Reason: Anxiety Last Admin: 04/21/22 21:33 Dose: 25 mg Lidocaine HCl (Lidocaine 4 % Cream Kit) 1 appl TOPICAL DAILY PRN; Protocol PRN Reason: prophylactiinjection site pain Magnesium Hydroxide (Milk Of Magnesia 30 Ml Oral.Susp) 30 ml PO DAILY PRN PRN Reason: Constipation Trazodone HCl (Trazodone Hcl 50 Mg Tablet) 50 mg PO BEDTIME PRN PRN Reason: Insomnia Allergies Allergies Allergy/AdvReac Type Severity Reaction Status Date / Time No Known Allergies Allergy Verified 02/19/22 03:39 [No Known Allergies*] Assessment & Plan Assessment & Plan (1) Schizophrenia, paranoid, chronic with acute exacerbation: Status: Acute Code(s): F20.0 - Paranoid schizophrenia Plan HPI: Nura is a 26 y.o. male who carries a dx of paranoid schizophrenia. Hx of , has fixed delusion of believing neighbors are talking about him. Has DMH and ACCS services through [facility]. No Catarino's order. Hx of med non-adherence upon discharge.? Patient has been repeatedly coming to the emergency room asking for help with auditory hallucinations Formulation: dx Schizophrenia, paranoid type Director Financial Services discussed case with colleagues who have worked with patient in the past and also with staff on the unit for current admission. He has a hx of multiple inpatient admissions, including 1 about a month ago with very similar presentation, refusing to take meds, asking for discharge and deemed safe to return to the community. He has been re-presenting to [facility] after being discharged with the same presentation, not dangerous, but asking for help and then refusing treatment wanting discharge. He continues to have auditory hallucinations about his neighbor.?Initially, he has not expressed any delusional concerns that his neighbor is going to hurt him, just that his neighbors talking about him and so considered discharge.?However, Patient soon expressed concerns that his neighbors are plotting to harm him and that he is prepared to harm them back if he needs to defend himself.? As patient has presented several times to the emergency room in between admissions he is demonstrating that he is struggling to function in the community.? He has an extensive history of medication noncompliance. He has chronic paranoid delusions and auditory hallucinations that his neighbors are going to hurt him which intermittently expand to thoughts about preparing to defend himself.? Will continue treatment however, given his long hx of refractory psychosis, no insight and poor adherence with medication, team agrees that patient needs a more long-term admission to stabilize to the point where he could successfully live in the community.? During this admission, patient has significantly improved on clozapine.? He remains so without Haldol and Depakote which have both been discontinued.? He is pleasant and friendly.? Auditory hallucinations are either absent or minimal.? He remains without insight and worries that the voices of his neighbor will return once he goes back home, not understanding that these are auditory hallucinations associated with a psychiatric illness and to that and he will likely continually struggle with medication adherence; thus patient's stability in the community will directly correlate with the effectiveness of outpatient services.? Patient has complained of sexual side effects from clozapine however it is unclear to what extent as patient is a very limited historian; also this topic is come up during past admissions on other medications and it is not clear if it is medication related. PLAN: Section 8b Patient Civil Committed and substituted judgment for medications ordered. Medication plan:? Trial of clozapine; overlap Haldol/Depak (minimally helpful) for now; goal to see if clozapine can be effective alone Clozapine? 325mg at DINNER time to mitigate daytime tiredness (to help with adherence; was split dosing) CANNOT REFUSE; COURT ORDERED; GIVE HALDOL 5MG IF REFUSES -patient has improved significantly so will leave at this dose for now so as to avoid risk of side-effects ANC 3.4 on 04/20/22 ANC weekly -DISCONTINUED Divalproex ER 1000 mg PO QHS on 03/26; patient has been refusing it and since goal is to see if monotherapy with clozapine can work, will just discontinue it for now; patient does not have history of bipolar disorder or manic episodes and this medication was used with only limited success for behavioral issues. -DISCONTNUE Haloperidol (was 10 mg BID; patient refuses; at this point might as well see if clozapine by itself can be effective as Haldol has only ever Seemed to be minimally helpful and it's not worth forcing an IM) Continue Benztropine Mesylate (Benztropine Mesylate 0.5 Mg Tablet)? 0.5 mg PO qHS; but on clozapine may not need Continue Clonidine HCl (Clonidine Hcl 0.1 Mg Tablet)? 0.1 mg PO TID PRN Reason: hyperarousal Trazodone HCl? 50 mg PO BEDTIME PRN Insomnia Hydroxyzine HCl (Hydroxyzine Hcl 25 Mg Tablet)? 25 mg PO Q6H PRN Anxiety DC Quetiapine qhs; pt does not want for day to day events (see below)... HOSPITAL COURSE 02/24: Ct treatment plan 02/25: Ct Rx plan. May need committment. Lacks insight and is non compliant with meds. 02/26: Pt adamantly does not want to increase haldol or depakote. Will start seroquel 300 mg QHS for sx of psychotic depression, has not had adequate trial on seroquel. May help with poor sleep. 02/27: Pt has been refusing all meds; AH complaints but denies any SI/HI and his demonstrate safe behaviors on the unit 02/28 retracted 3 day, remains preoccupied with auditory hallucinations of his neighbors and delusional thoughts that his neighbors are persecuting him agrees to stay for treatment; considering clozapine 03/01 Angry and demanding discharge and 3 day notice placed; difficult to engage; no insight.? Refused morning dose of Haldol.? At said he is taking clozapine before and resisted reality testing; however said will still consider 03/02 patient willingly taking clozapine 03/06 patient intermittently takes clozapine; he is disorganized in behavior and thought, intermittently yelling and accusing staff and posturing and threatening staff.? Patient struggles to understand that his rent is paid for; while talking about a specific topic, patient will intermittently respond with a disorganized irrelevant answer.? Patient has failed monotherapy with Seroquel, Palliperidone, Risperdal and Haldol.? Will continue to titrate clozapine as patient is willing to see if this can be effective.? Patient has a 3 day notice due today 03/06/2022.? Team finds that patient is unstable and not safe to return the community as he has ongoing auditory hallucinations and paranoid delusional thoughts that about his neighbors plotting to hurt him.? Will file for Civil commitment; also discussed is that patient may need long-term admission to better establish stability. 03/08 patient disorganized; refused labs making it difficult to titrate clozapine.? Will continue to trying get patient to allow labs 03/09 remains disorganized, sometimes adhering to treatment other times refusing it without any clear pattern.? Patient is not amenable to logical explanation and his engagement in tx is unpredictable making dosing with Clozapine (and depakote) difficult as it requires periodic blood work and controlled titration.? However, Will continue with attempts at clozapine since this seems to be best option for patient to become stabilized 03/10 remains disorganized; won't engage; continues to have AH 03/13 CIVIL COMMITMENT AND SUBSTITUTED JUDGMENT ORDERED 03/16 continue current tx plan 03/19 Patient has moments of insight but quickly descends back into struggles with paranoia, disorganized thinking, thinking AH are real. Patient struggles with taking medication are difficult to predict.?Today he said I feel good, why would it take medication? despite that during the same conversation he also said that he continues to hear his neighbors say mad crap And if they come after him something will happen. The Hope is that clozapine as a monotherapy will be sufficient; proposal lead writer discussed case with patient's past inpatient provider and there is no history of bipolar/manic episodes and Depakote only used for impulsivity/anger.? Thus, will lower Depakote to a 1000 mg q.h.s. With clozapine, it may be easier for patient to tolerate single dosing so will see if moving the entire dose to bedtime helps with adherence rather than being asked to take medications twice a day.? That said, sometimes patient wakes up in the morning and demands his morning medications so it is difficult to know The best way to mitigate his his anxiety around this issue. 03/26 patient has been refusing Depakote; since he does not have history of bipolar disorder manic episodes and this medication has had limited effect, will just discontinue for now and move forward with seen of clozapine can be effective on its own; will also DC Haldol Since patient refuses; at this point might as well see if clozapine by itself can be effective as Haldol has only ever Seemed to be minimally helpful. 03/27 denies auditory hallucinations but remains without any insight and saying that he will not take medications when he goes home because he is good. 03/28 Patient vacillates between being irritable and calm; sometimes he says he will take his medications when he goes home other times he says he is doing fine and does not need it. It is not clear if patient still hears auditory hallucinations or if they have resolved as his reporting is inconsistent. It remains necessary for patient to go to a long-term facility for continued medication management and to have a longer time without symptoms. 04/04 (not 04/05) patient overall more calm and excepting of being on the unit, waiting for further stabilization and outpatient services to be set up before returning to the community; does not want to go to [facility].? Patient's improvement is despite the fact that both Haldol and Depakote have been discontinued; off these medications he is less sedated and up earlier in the day.? Patient denies auditory hallucinations.? Intermittently he can accept that AH has resolved due to medication, but he does not have insight into presence of psychiatric disorder and need for ongoing treatment even when feeling stable.? That said, it is not clear that increasing doses of Clozaril would resolve this impaired insight; his improved presentation and desire to avoid side effects gives pause to further titrating clozapine.? Will leave here for now and monitor.? The remains significant concern the patient would discontinue his medications on discharge and team continues to agree that he needs a prolonged experience of being symptom free to connect his ongoing need for medication. 04/09 no changes 04/12 remains stable; staff discussed and think that patient is likely close to maximum benefit from clozapine so will keep at current dose for now. Concern is that any increase could cause side effects which would be a barrier to patient continue medication on discharge 04/16 Patient remains is stable Tried to discuss sexual side effects of medication but patient was very vague and it is on conclusive; other staff reports that this topic is come up in the past make it less likely related to clozapine 04/19 no changes 04/20 successful meeting today with ACCS; remains calm and pleasant MED Trials: Seroquel Palliperidone Risperdal Haldol I spent minutes with the patient and/or on the patient floor today, greater than?50% of which was spent counseling/coordinating care. Reason for contiued inpatient stay Substantial Risk for: inability to function
[2022-04-22] MEDS: cloZAPine 100 MG TABLET 350 MG PO (15:22)
[2022-04-22 18:00] VITALS: RESP 18
[2022-04-23] MEDS: cloZAPine 100 MG TABLET 350 MG PO (15:41)
[2022-04-23 18:00] VITALS: RESP 18
[2022-04-23] MEDS: Benztropine Mesylate 0.5 MG TABLET PO (21:01)
[2022-04-23] MEDS: hydrOXYzine HCL 25 MG TABLET PO (21:04)
[2022-04-24 13:21] VITALS: BP 116/88; PULSE 116; TEMP 36.6; O2SAT 96
[2022-04-24 16:15] VITALS: BP 134/78; PULSE 126; TEMP 36
[2022-04-24] MEDS: cloZAPine 100 MG TABLET 350 MG PO (16:21)
--- NOTE | 2022-04-24 17:44 | HO.PSYCHPN ---
Subjective Subjective Date of Service: 04/23/22 Reason For Visit: schizoaffective Interim History: Late entry for patient seen on 04/23 Patient in good mood, looking forward to meeting tomorrow with [facility]. appropriate with peers and staff Mental Status Exam Mental Status Exam Narrative: Pt is alert and oriented; behavior, calm, friendly and cooperative; dressed in casual attire, wearing casual cloths, adequately groomed and with adequate hygiene; mood pleasant; affect congruent; eye contact adequate, appropriate; Speech is normal rate, normal volume; normal prosody; no intermittent psychomotor agitation; thought process goal oriented; Thought content is on discharge; he is less perseverative on paranoid delusional worries about being persecuted by his neighbors; Denies SI/HI. denies AH;? Patients insight and judgment are impaired but have improved and possibly at baseline. Diagnostics Vital Signs (24Hr): Vital Signs - 24 hr 04/23/22 18:00 04/24/22 13:21 Temperature 97.8 F Pulse Rate 116 H Respiratory Rate 18 Blood Pressure 116/88 Pulse Oximetry 96 Oxygen Delivery Method Room Air BMI result Body Mass Index 37.0 Labs Results: 03/01/22 18:29 Medications Medications Current Medications Acetaminophen (Acetaminophen 325 Mg Tablet) 650 mg PO Q6H PRN PRN Reason: Headache/Pain Mild Scale (1-3) Last Admin: 03/03/22 22:41 Dose: 650 mg Al Hydroxide/Mg Hydroxide (Magnesium Hydrox/Alum Hydrox 30 Ml Oral.Susp) 30 ml PO Q6H PRN PRN Reason: Heartburn/Nausea Albuterol Sulfate (Albuterol Sulfate 90 Mcg 8 Gm Inhaler) 2 puff INHALE RQ4H PRN PRN Reason: Shortness Of Breath Benztropine Mesylate (Benztropine Mesylate 0.5 Mg Tablet) 0.5 mg PO BEDTIME JOE Clonidine HCl (Clonidine Hcl 0.1 Mg Tablet) 0.1 mg PO TID PRN; Protocol PRN Reason: hyperarousal Last Admin: 02/28/22 21:47 Dose: 0.1 mg Clozapine (Clozapine 100 Mg Tablet) 350 mg PO DAILY@1700 JOE Last Admin: 04/24/22 16:21 Dose: 350 mg Diphenhydramine HCl (Diphenhydramine Hcl 25 Mg Tablet) 50 mg PO Q4H PRN PRN Reason: agitation Haloperidol (Haloperidol 5 Mg Tablet) 10 mg PO Q4H PRN PRN Reason: agitation Last Admin: 04/03/22 22:17 Dose: 10 mg Haloperidol Lactate (Haloperidol Lactate 5 Mg/Ml Vial) 10 mg IM DAILY PRN PRN Reason: if refuses PO Hydroxyzine HCl (Hydroxyzine Hcl 25 Mg Tablet) 25 mg PO Q6H PRN PRN Reason: Anxiety Last Admin: 04/23/22 21:04 Dose: 25 mg Lidocaine HCl (Lidocaine 4 % Cream Kit) 1 appl TOPICAL DAILY PRN; Protocol PRN Reason: prophylactiinjection site pain Magnesium Hydroxide (Milk Of Magnesia 30 Ml Oral.Susp) 30 ml PO DAILY PRN PRN Reason: Constipation Trazodone HCl (Trazodone Hcl 50 Mg Tablet) 50 mg PO BEDTIME PRN PRN Reason: Insomnia Allergies Allergies Allergy/AdvReac Type Severity Reaction Status Date / Time No Known Allergies Allergy Verified 02/19/22 03:39 [No Known Allergies*] Assessment & Plan Assessment & Plan (1) Schizophrenia, paranoid, chronic with acute exacerbation: Status: Acute Code(s): F20.0 - Paranoid schizophrenia Plan HPI: Nura is a 26 y.o. male who carries a dx of paranoid schizophrenia. Hx of , has fixed delusion of believing neighbors are talking about him. Has DMH and ACCS services through [facility]. No Catarino's order. Hx of med non-adherence upon discharge.? 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 He has a hx of multiple inpatient admissions, including 1 about a month ago with very similar presentation, refusing to take meds, asking for discharge and deemed safe to return to the community. He has been re-presenting to [facility] after being discharged with the same presentation, not dangerous, but asking for help and then refusing treatment wanting discharge. He continues to have auditory hallucinations about his neighbor.?Initially, he has not expressed any delusional concerns that his neighbor is going to hurt him, just that his neighbors talking about him and so considered discharge.?However, Patient soon expressed concerns that his neighbors are plotting to harm him and that he is prepared to harm them back if he needs to defend himself.? As patient has presented several times to the emergency room in between admissions he is demonstrating that he is struggling to function in the community.? He has an extensive history of medication noncompliance. He has chronic paranoid delusions and auditory hallucinations that his neighbors are going to hurt him which intermittently expand to thoughts about preparing to defend himself.? Will continue treatment however, given his long hx of refractory psychosis, no insight and poor adherence with medication, team agrees that patient needs a more long-term admission to stabilize to the point where he could successfully live in the community.? During this admission, patient has significantly improved on clozapine.? He remains so without Haldol and Depakote which have both been discontinued.? He is pleasant and friendly.? Auditory hallucinations are either absent or minimal.? He remains without insight and worries that the voices of his neighbor will return once he goes back home, not understanding that these are auditory hallucinations associated with a psychiatric illness and to that and he will likely continually struggle with medication adherence; thus patient's stability in the community will directly correlate with the effectiveness of outpatient services.? Patient has complained of sexual side effects from clozapine however it is unclear to what extent as patient is a very limited historian; also this topic is come up during past admissions on other medications and it is not clear if it is medication related. PLAN: Section 8b Patient Civil Committed and substituted judgment for medications ordered. Medication plan:? Trial of clozapine; overlap Haldol/Depak (minimally helpful) for now; goal to see if clozapine can be effective alone Clozapine? 325mg at DINNER time to mitigate daytime tiredness (to help with adherence; was split dosing) CANNOT REFUSE; COURT ORDERED; GIVE HALDOL 5MG IF REFUSES -patient has improved significantly so will leave at this dose for now so as to avoid risk of side-effects ANC 3.4 on 04/20/22 ANC weekly Continue Clonidine HCl (Clonidine Hcl 0.1 Mg Tablet)? 0.1 mg PO TID PRN Reason: hyperarousal Continue Trazodone HCl? 50 mg PO BEDTIME PRN Insomnia Continue Hydroxyzine HCl (Hydroxyzine Hcl 25 Mg Tablet)? 25 mg PO Q6H PRN Anxiety DISCONTINUED Benztropine Mesylate (Benztropine Mesylate 0.5 Mg Tablet)? 0.5 mg PO qHS; but on clozapine may not need DISCONTINUED Divalproex ER 1000 mg PO QHS on 03/26; patient has been refusing it and since goal is to see if monotherapy with clozapine can work, will just discontinue it for now; patient does not have history of bipolar disorder or manic episodes and this medication was used with only limited success for behavioral issues. DISCONTINUED Haloperidol (was 10 mg BID; patient refuses; at this point might as well see if clozapine by itself can be effective as Haldol has only ever Seemed to be minimally helpful and it's not worth forcing an IM) DISCONTINUED Quetiapine qhs; pt does not want for day to day events (see below)... HOSPITAL COURSE 02/24: Ct treatment plan 02/25: Ct Rx plan. May need committment. Lacks insight and is non compliant with meds. 02/26: Pt adamantly does not want to increase haldol or depakote. Will start seroquel 300 mg QHS for sx of psychotic depression, has not had adequate trial on seroquel. May help with poor sleep. 02/27: Pt has been refusing all meds; AH complaints but denies any SI/HI and his demonstrate safe behaviors on the unit 02/28 retracted 3 day, remains preoccupied with auditory hallucinations of his neighbors and delusional thoughts that his neighbors are persecuting him agrees to stay for treatment; considering clozapine 03/01 Angry and demanding discharge and 3 day notice placed; difficult to engage; no insight.? Refused morning dose of Haldol.? At said he is taking clozapine before and resisted reality testing; however said will still consider 03/02 patient willingly taking clozapine 03/06 patient intermittently takes clozapine; he is disorganized in behavior and thought, intermittently yelling and accusing staff and posturing and threatening staff.? Patient struggles to understand that his rent is paid for; while talking about a specific topic, patient will intermittently respond with a disorganized irrelevant answer.? Patient has failed monotherapy with Seroquel, Palliperidone, Risperdal and Haldol.? Will continue to titrate clozapine as patient is willing to see if this can be effective.? Patient has a 3 day notice due today 03/06/2022.? Team finds that patient is unstable and not safe to return the community as he has ongoing auditory hallucinations and paranoid delusional thoughts that about his neighbors plotting to hurt him.? Will file for Civil commitment; also discussed is that patient may need long-term admission to better establish stability. 03/08 patient disorganized; refused labs making it difficult to titrate clozapine.? Will continue to trying get patient to allow labs 03/09 remains disorganized, sometimes adhering to treatment other times refusing it without any clear pattern.? Patient is not amenable to logical explanation and his engagement in tx is unpredictable making dosing with Clozapine (and depakote) difficult as it requires periodic blood work and controlled titration.? However, Will continue with attempts at clozapine since this seems to be best option for patient to become stabilized 03/10 remains disorganized; won't engage; continues to have AH 03/13 CIVIL COMMITMENT AND SUBSTITUTED JUDGMENT ORDERED 03/16 continue current tx plan 03/19 Patient has moments of insight but quickly descends back into struggles with paranoia, disorganized thinking, thinking AH are real. Patient struggles with taking medication are difficult to predict.?Today he said I feel good, why would it take medication? despite that during the same conversation he also said that he continues to hear his neighbors say mad crap And if they come after him something will happen. The Hope is that clozapine as a monotherapy will be sufficient; comic book writer discussed case with patient's past inpatient provider and there is no history of bipolar/manic episodes and Depakote only used for impulsivity/anger.? Thus, will lower Depakote to a 1000 mg q.h.s. With clozapine, it may be easier for patient to tolerate single dosing so will see if moving the entire dose to bedtime helps with adherence rather than being asked to take medications twice a day.? That said, sometimes patient wakes up in the morning and demands his morning medications so it is difficult to know The best way to mitigate his his anxiety around this issue. 03/26 patient has been refusing Depakote; since he does not have history of bipolar disorder manic episodes and this medication has had limited effect, will just discontinue for now and move forward with seen of clozapine can be effective on its own; will also DC Haldol Since patient refuses; at this point might as well see if clozapine by itself can be effective as Haldol has only ever Seemed to be minimally helpful. 03/27 denies auditory hallucinations but remains without any insight and saying that he will not take medications when he goes home because he is good. 03/28 Patient vacillates between being irritable and calm; sometimes he says he will take his medications when he goes home other times he says he is doing fine and does not need it. It is not clear if patient still hears auditory hallucinations or if they have resolved as his reporting is inconsistent. It remains necessary for patient to go to a long-term facility for continued medication management and to have a longer time without symptoms. 04/04 (not 04/05) patient overall more calm and excepting of being on the unit, waiting for further stabilization and outpatient services to be set up before returning to the community; does not want to go to [facility].? Patient's improvement is despite the fact that both Haldol and Depakote have been discontinued; off these medications he is less sedated and up earlier in the day.? Patient denies auditory hallucinations.? Intermittently he can accept that AH has resolved due to medication, but he does not have insight into presence of psychiatric disorder and need for ongoing treatment even when feeling stable.? That said, it is not clear that increasing doses of Clozaril would resolve this impaired insight; his improved presentation and desire to avoid side effects gives pause to further titrating clozapine.? Will leave here for now and monitor.? The remains significant concern the patient would discontinue his medications on discharge and team continues to agree that he needs a prolonged experience of being symptom free to connect his ongoing need for medication. 04/09 no changes 04/12 remains stable; staff discussed and think that patient is likely close to maximum benefit from clozapine so will keep at current dose for now. Concern is that any increase could cause side effects which would be a barrier to patient continue medication on discharge 04/16 Patient remains is stable Tried to discuss sexual side effects of medication but patient was very vague and it is on conclusive; other staff reports that this topic is come up in the past make it less likely related to clozapine 04/19 no changes 04/20 successful meeting today with ACCS; remains calm and pleasant 04/23 remains stable and likely at baseline; will discontinue Cogentin since patient has no history of EPS and is now only on clozapine which has low risk for EPS symptoms; comic book writer discussed with nursing who will monitor for symptoms. MED Trials: Seroquel Palliperidone Risperdal Haldol I spent minutes with the patient and/or on the patient floor today, greater than?50% of which was spent counseling/coordinating care. Patient educated on: therapeutic strategies Reason for contiued inpatient stay Substantial Risk for: inability to function
--- NOTE | 2022-04-24 18:41 | HO.PSYCHPN ---
Subjective Subjective Date of Service: 04/24/22 Reason For Visit: schizoaffective Interim History: Late entry for patient seen on 04/24 Patient reported stiff neck and given Cogentin 0.5 which resolved stiffness. Will reorder scheduled Cogentin. Patient met today with [facility] worker and quality analyst/technical writer joined. Seemed to be in amicable visit and that the to a developing a rapport. Patient excited about meeting and showed quality analyst/technical writer checked off this meeting and asked when the next 1 was Mental Status Exam Mental Status Exam Narrative: Pt is alert and oriented; behavior, calm, friendly and cooperative; dressed in casual attire, wearing casual cloths, adequately groomed and with adequate hygiene; mood pleasant; affect congruent; eye contact adequate, appropriate; Speech is normal rate, normal volume; normal prosody; no intermittent psychomotor agitation; thought process goal oriented; Thought content is on discharge; he is less perseverative on paranoid delusional worries about being persecuted by his neighbors; Denies SI/HI. denies AH;? Patients insight and judgment are impaired but have improved and possibly at baseline. Diagnostics Vital Signs (24Hr): BMI result Body Mass Index 37.0 Labs Results: 03/01/22 18:29 Medications Medications Current Medications Acetaminophen (Acetaminophen 325 Mg Tablet) 650 mg PO Q6H PRN PRN Reason: Headache/Pain Mild Scale (1-3) Last Admin: 03/03/22 22:41 Dose: 650 mg Al Hydroxide/Mg Hydroxide (Magnesium Hydrox/Alum Hydrox 30 Ml Oral.Susp) 30 ml PO Q6H PRN PRN Reason: Heartburn/Nausea Albuterol Sulfate (Albuterol Sulfate 90 Mcg 8 Gm Inhaler) 2 puff INHALE RQ4H PRN PRN Reason: Shortness Of Breath Benztropine Mesylate (Benztropine Mesylate 0.5 Mg Tablet) 0.5 mg PO BEDTIME JOE Last Admin: 04/25/22 20:05 Dose: 0.5 mg Clonidine HCl (Clonidine Hcl 0.1 Mg Tablet) 0.1 mg PO TID PRN; Protocol PRN Reason: hyperarousal Last Admin: 02/28/22 21:47 Dose: 0.1 mg Clozapine (Clozapine 100 Mg Tablet) 350 mg PO DAILY@1700 JOE Last Admin: 04/26/22 16:51 Dose: 350 mg Diphenhydramine HCl (Diphenhydramine Hcl 25 Mg Tablet) 50 mg PO Q4H PRN PRN Reason: agitation Haloperidol (Haloperidol 5 Mg Tablet) 10 mg PO Q4H PRN PRN Reason: agitation Last Admin: 04/03/22 22:17 Dose: 10 mg Haloperidol Lactate (Haloperidol Lactate 5 Mg/Ml Vial) 10 mg IM DAILY PRN PRN Reason: if refuses PO Hydroxyzine HCl (Hydroxyzine Hcl 25 Mg Tablet) 25 mg PO Q6H PRN PRN Reason: Anxiety Last Admin: 04/23/22 21:04 Dose: 25 mg Lidocaine HCl (Lidocaine 4 % Cream Kit) 1 appl TOPICAL DAILY PRN; Protocol PRN Reason: prophylactiinjection site pain Magnesium Hydroxide (Milk Of Magnesia 30 Ml Oral.Susp) 30 ml PO DAILY PRN PRN Reason: Constipation Trazodone HCl (Trazodone Hcl 50 Mg Tablet) 50 mg PO BEDTIME PRN PRN Reason: Insomnia Allergies Allergies Allergy/AdvReac Type Severity Reaction Status Date / Time No Known Allergies Allergy Verified 02/19/22 03:39 [No Known Allergies*] Assessment & Plan Assessment & Plan (1) Schizophrenia, paranoid, chronic with acute exacerbation: Status: Acute Code(s): F20.0 - Paranoid schizophrenia Plan HPI: Nura is a 26 y.o. male who carries a dx of paranoid schizophrenia. Hx of , has fixed delusion of believing neighbors are talking about him. Has DMH and ACCS services through [facility]. No Catarino's order. Hx of med non-adherence upon discharge.? Patient has been repeatedly coming to the emergency room asking for help with auditory hallucinations Formulation: dx Schizophrenia, paranoid type Water Resources Program Director discussed case with colleagues who have worked with patient in the past and also with staff on the unit for current admission. He has a hx of multiple inpatient admissions, including 1 about a month ago with very similar presentation, refusing to take meds, asking for discharge and deemed safe to return to the community. He has been re-presenting to [facility] after being discharged with the same presentation, not dangerous, but asking for help and then refusing treatment wanting discharge. He continues to have auditory hallucinations about his neighbor.?Initially, he has not expressed any delusional concerns that his neighbor is going to hurt him, just that his neighbors talking about him and so considered discharge.?However, Patient soon expressed concerns that his neighbors are plotting to harm him and that he is prepared to harm them back if he needs to defend himself.? As patient has presented several times to the emergency room in between admissions he is demonstrating that he is struggling to function in the community.? He has an extensive history of medication noncompliance. He has chronic paranoid delusions and auditory hallucinations that his neighbors are going to hurt him which intermittently expand to thoughts about preparing to defend himself.? Will continue treatment however, given his long hx of refractory psychosis, no insight and poor adherence with medication, team agrees that patient needs a more long-term admission to stabilize to the point where he could successfully live in the community.? During this admission, patient has significantly improved on clozapine.? He remains so without Haldol and Depakote which have both been discontinued.? He is pleasant and friendly.? Auditory hallucinations are either absent or minimal.? He remains without insight and worries that the voices of his neighbor will return once he goes back home, not understanding that these are auditory hallucinations associated with a psychiatric illness and to that and he will likely continually struggle with medication adherence; thus patient's stability in the community will directly correlate with the effectiveness of outpatient services.? Patient has complained of sexual side effects from clozapine however it is unclear to what extent as patient is a very limited historian; also this topic is come up during past admissions on other medications and it is not clear if it is medication related. PLAN: Section 8b Patient Civil Committed and substituted judgment for medications ordered. Medication plan:? Trial of clozapine; overlap Haldol/Depak (minimally helpful) for now; goal to see if clozapine can be effective alone Clozapine? 325mg at DINNER time to mitigate daytime tiredness (to help with adherence; was split dosing) CANNOT REFUSE; COURT ORDERED; GIVE HALDOL 5MG IF REFUSES -patient has improved significantly so will leave at this dose for now so as to avoid risk of side-effects ANC 3.4 on 04/20/22 ANC weekly RESTART Benztropine Mesylate (Benztropine Mesylate 0.5 Mg Tablet)? 0.5 mg PO qHS; patient developed dystonic reaction when discontinued Continue Clonidine HCl (Clonidine Hcl 0.1 Mg Tablet)? 0.1 mg PO TID PRN Reason: hyperarousal Continue Trazodone HCl? 50 mg PO BEDTIME PRN Insomnia Continue Hydroxyzine HCl (Hydroxyzine Hcl 25 Mg Tablet)? 25 mg PO Q6H PRN Anxiety DISCONTINUED Divalproex ER 1000 mg PO QHS on 03/26; patient has been refusing it and since goal is to see if monotherapy with clozapine can work, will just discontinue it for now; patient does not have history of bipolar disorder or manic episodes and this medication was used with only limited success for behavioral issues. DISCONTINUED Haloperidol (was 10 mg BID; patient refuses; at this point might as well see if clozapine by itself can be effective as Haldol has only ever Seemed to be minimally helpful and it's not worth forcing an IM) DISCONTINUED Quetiapine qhs; pt does not want for day to day events (see below)... HOSPITAL COURSE 02/24: Ct treatment plan 02/25: Ct Rx plan. May need committment. Lacks insight and is non compliant with meds. 02/26: Pt adamantly does not want to increase haldol or depakote. Will start seroquel 300 mg QHS for sx of psychotic depression, has not had adequate trial on seroquel. May help with poor sleep. 02/27: Pt has been refusing all meds; AH complaints but denies any SI/HI and his demonstrate safe behaviors on the unit 02/28 retracted 3 day, remains preoccupied with auditory hallucinations of his neighbors and delusional thoughts that his neighbors are persecuting him agrees to stay for treatment; considering clozapine 03/01 Angry and demanding discharge and 3 day notice placed; difficult to engage; no insight.? Refused morning dose of Haldol.? At said he is taking clozapine before and resisted reality testing; however said will still consider 03/02 patient willingly taking clozapine 03/06 patient intermittently takes clozapine; he is disorganized in behavior and thought, intermittently yelling and accusing staff and posturing and threatening staff.? Patient struggles to understand that his rent is paid for; while talking about a specific topic, patient will intermittently respond with a disorganized irrelevant answer.? Patient has failed monotherapy with Seroquel, Palliperidone, Risperdal and Haldol.? Will continue to titrate clozapine as patient is willing to see if this can be effective.? Patient has a 3 day notice due today 03/06/2022.? Team finds that patient is unstable and not safe to return the community as he has ongoing auditory hallucinations and paranoid delusional thoughts that about his neighbors plotting to hurt him.? Will file for Civil commitment; also discussed is that patient may need long-term admission to better establish stability. 03/08 patient disorganized; refused labs making it difficult to titrate clozapine.? Will continue to trying get patient to allow labs 03/09 remains disorganized, sometimes adhering to treatment other times refusing it without any clear pattern.? Patient is not amenable to logical explanation and his engagement in tx is unpredictable making dosing with Clozapine (and depakote) difficult as it requires periodic blood work and controlled titration.? However, Will continue with attempts at clozapine since this seems to be best option for patient to become stabilized 03/10 remains disorganized; won't engage; continues to have AH 03/13 CIVIL COMMITMENT AND SUBSTITUTED JUDGMENT ORDERED 03/16 continue current tx plan 03/19 Patient has moments of insight but quickly descends back into struggles with paranoia, disorganized thinking, thinking AH are real. Patient struggles with taking medication are difficult to predict.?Today he said I feel good, why would it take medication? despite that during the same conversation he also said that he continues to hear his neighbors say mad crap And if they come after him something will happen. The Hope is that clozapine as a monotherapy will be sufficient; quality analyst/technical writer discussed case with patient's past inpatient provider and there is no history of bipolar/manic episodes and Depakote only used for impulsivity/anger.? Thus, will lower Depakote to a 1000 mg q.h.s. With clozapine, it may be easier for patient to tolerate single dosing so will see if moving the entire dose to bedtime helps with adherence rather than being asked to take medications twice a day.? That said, sometimes patient wakes up in the morning and demands his morning medications so it is difficult to know The best way to mitigate his his anxiety around this issue. 03/26 patient has been refusing Depakote; since he does not have history of bipolar disorder manic episodes and this medication has had limited effect, will just discontinue for now and move forward with seen of clozapine can be effective on its own; will also DC Haldol Since patient refuses; at this point might as well see if clozapine by itself can be effective as Haldol has only ever Seemed to be minimally helpful. 03/27 denies auditory hallucinations but remains without any insight and saying that he will not take medications when he goes home because he is good. 03/28 Patient vacillates between being irritable and calm; sometimes he says he will take his medications when he goes home other times he says he is doing fine and does not need it. It is not clear if patient still hears auditory hallucinations or if they have resolved as his reporting is inconsistent. It remains necessary for patient to go to a long-term facility for continued medication management and to have a longer time without symptoms. 04/04 (not 04/05) patient overall more calm and excepting of being on the unit, waiting for further stabilization and outpatient services to be set up before returning to the community; does not want to go to [facility].? Patient's improvement is despite the fact that both Haldol and Depakote have been discontinued; off these medications he is less sedated and up earlier in the day.? Patient denies auditory hallucinations.? Intermittently he can accept that AH has resolved due to medication, but he does not have insight into presence of psychiatric disorder and need for ongoing treatment even when feeling stable.? That said, it is not clear that increasing doses of Clozaril would resolve this impaired insight; his improved presentation and desire to avoid side effects gives pause to further titrating clozapine.? Will leave here for now and monitor.? The remains significant concern the patient would discontinue his medications on discharge and team continues to agree that he needs a prolonged experience of being symptom free to connect his ongoing need for medication. 04/09 no changes 04/12 remains stable; staff discussed and think that patient is likely close to maximum benefit from clozapine so will keep at current dose for now. Concern is that any increase could cause side effects which would be a barrier to patient continue medication on discharge 04/16 Patient remains is stable Tried to discuss sexual side effects of medication but patient was very vague and it is on conclusive; other staff reports that this topic is come up in the past make it less likely related to clozapine 04/19 no changes 04/20 successful meeting today with ACCS; remains calm and pleasant 04/23 remains stable and likely at baseline; will discontinue Cogentin since patient has no history of EPS and is now only on clozapine which has low EPS risk; quality analyst/technical writer discussed with nursing who will monitor for symptoms. 04/24 patient got dystonia with stiff neck which was relieved with Cogentin. Water Resources Program Director will reorder as scheduled; good meeting with [facility] worker MED Trials: Seroquel Palliperidone Risperdal Haldol I spent minutes with the patient and/or on the patient floor today, greater than?50% of which was spent counseling/coordinating care. Patient educated on: medication risk/benefits Informed Consent: does not understand and further education needed Reason for contiued inpatient stay Substantial Risk for: inability to function
[2022-04-24] MEDS: Benztropine Mesylate 0.5 MG TABLET PO (22:16)
[2022-04-25 16:24] VITALS: BP 124/73; PULSE 120; TEMP 36; O2SAT 95
[2022-04-25] MEDS: cloZAPine 100 MG TABLET 350 MG PO (16:39)
--- NOTE | 2022-04-25 18:51 | P.PNPSI_ITS ---
Subjective Subjective Date of Service: 04/25/22 Reason For Visit: schizoaffective Interim History: Late entry for patient seen on 04/25 Patient remains calm, no dystonia, good mood, pleasant and joking with staff. Mental Status Exam Mental Status Exam Narrative: Pt is alert and oriented; behavior, calm, friendly and cooperative; dressed in casual attire, wearing casual cloths, adequately groomed and with adequate hygiene; mood pleasant; affect congruent; eye contact adequate, appropriate; Speech is normal rate, normal volume; normal prosody; no intermittent psychomotor agitation; thought process goal oriented; Thought content is on discharge; he is less perseverative on paranoid delusional worries about being persecuted by his neighbors; Denies SI/HI. denies AH;? Patients insight and judgment are impaired but have improved and possibly at baseline. Diagnostics Vital Signs (24Hr): BMI result Body Mass Index 37.0 Labs Results: 03/01/22 18:29 Medications Medications Current Medications Acetaminophen (Acetaminophen 325 Mg Tablet) 650 mg PO Q6H PRN PRN Reason: Headache/Pain Mild Scale (1-3) Last Admin: 03/03/22 22:41 Dose: 650 mg Al Hydroxide/Mg Hydroxide (Magnesium Hydrox/Alum Hydrox 30 Ml Oral.Susp) 30 ml PO Q6H PRN PRN Reason: Heartburn/Nausea Albuterol Sulfate (Albuterol Sulfate 90 Mcg 8 Gm Inhaler) 2 puff INHALE RQ4H PRN PRN Reason: Shortness Of Breath Benztropine Mesylate (Benztropine Mesylate 0.5 Mg Tablet) 0.5 mg PO BEDTIME [facility] Last Admin: 04/25/22 20:05 Dose: 0.5 mg Clonidine HCl (Clonidine Hcl 0.1 Mg Tablet) 0.1 mg PO TID PRN; Protocol PRN Reason: hyperarousal Last Admin: 02/28/22 21:47 Dose: 0.1 mg Clozapine (Clozapine 100 Mg Tablet) 350 mg PO DAILY@1700 [facility] Last Admin: 04/26/22 16:51 Dose: 350 mg Diphenhydramine HCl (Diphenhydramine Hcl 25 Mg Tablet) 50 mg PO Q4H PRN PRN Reason: agitation Haloperidol (Haloperidol 5 Mg Tablet) 10 mg PO Q4H PRN PRN Reason: agitation Last Admin: 04/03/22 22:17 Dose: 10 mg Haloperidol Lactate (Haloperidol Lactate 5 Mg/Ml Vial) 10 mg IM DAILY PRN PRN Reason: if refuses PO Hydroxyzine HCl (Hydroxyzine Hcl 25 Mg Tablet) 25 mg PO Q6H PRN PRN Reason: Anxiety Last Admin: 04/23/22 21:04 Dose: 25 mg Lidocaine HCl (Lidocaine 4 % Cream Kit) 1 appl TOPICAL DAILY PRN; Protocol PRN Reason: prophylactiinjection site pain Magnesium Hydroxide (Milk Of Magnesia 30 Ml Oral.Susp) 30 ml PO DAILY PRN PRN Reason: Constipation Trazodone HCl (Trazodone Hcl 50 Mg Tablet) 50 mg PO BEDTIME PRN PRN Reason: Insomnia Allergies Allergies Allergy/AdvReac Type Severity Reaction Status Date / Time No Known Allergies Allergy Verified 02/19/22 03:39 [No Known Allergies*] Assessment & Plan Assessment & Plan (1) Schizophrenia, paranoid, chronic with acute exacerbation: Status: Acute Code(s): F20.0 - Paranoid schizophrenia Plan HPI: Nura is a 26 y.o. male who carries a dx of paranoid schizophrenia. Hx of AH, has fixed delusion of believing neighbors are talking about him. Has DMH and ACCS services through [facility]. No Catarino's order. Hx of med non-adherence upon discharge.? Patient has been repeatedly coming to the emergency room asking for help with auditory hallucinations Formulation: dx Schizophrenia, paranoid type [employer] discussed case with colleagues who have worked with patient in the past and also with staff on the unit for current admission. He has a hx of multiple inpatient admissions, including 1 about a month ago with very similar presentation, refusing to take meds, asking for discharge and deemed safe to return to the community. He has been re-presenting to [facility] after being discharged with the same presentation, not dangerous, but asking for help and then refusing treatment wanting discharge. He continues to have auditory hallucinations about his neighbor.?Initially, he has not expressed any delusional concerns that his neighbor is going to hurt him, just that his neighbors talking about him and so considered discharge.?However, Patient soon expressed concerns that his neighbors are plotting to harm him and that he is prepared to harm them back if he needs to defend himself.? As patient has presented several times to the emergency room in between admissions he is d emonstrating that he is struggling to function in the community.? He has an extensive history of medication noncompliance. He has chronic paranoid delusions and auditory hallucinations that his neighbors are going to hurt him which intermittently expand to thoughts about preparing to defend himself.? Will continue treatment however, given his long hx of refractory psychosis, no insight and poor adherence with medication, team agrees that patient needs a more long-term admission to stabilize to the point where he could successfully live in the community.? During this admission, patient has significantly improved on clozapine.? He remains so without Haldol and Depakote which have both been discontinued.? He is pleasant and friendly.? Auditory hallucinations are either absent or minimal.? He remains without insight and worries that the voices of his neighbor will return once he goes back home, not understanding that these are auditory hallucinations associated with a psychiatric illness and to that and he will likely continually struggle with medication adherence; thus patient's stability in the community will directly correlate with the effectiveness of outpatient services.? Patient has complained of sexual side effects from clozapine however it is unclear to what extent as patient is a very limited historian; also this topic is come up during past admissions on other medications and it is not clear if it is medication related. PLAN: Section 8b Patient Civil Committed and substituted judgment for medications ordered. Dispostion: Once patient has ACCS services fully established will discharge home; otherwise without extensive community supportive services, patient will quickly decompensate Medication plan:? Trial of clozapine; overlap Haldol/Depak (minimally helpful) for now; goal to see if clozapine can be effective alone Clozapine? 325mg at DINNER time to mitigate daytime tiredness (to help with adherence; was split dosing) CANNOT REFUSE; COURT ORDERED; GIVE HALDOL 5MG IF REFUSES -patient has improved significantly so will leave at this dose for now so as to avoid risk of side-effects ANC 3.4 on 04/20/22 ANC weekly RESTART Benztropine Mesylate (Benztropine Mesylate 0.5 Mg Tablet)? 0.5 mg PO qHS; patient developed dystonic reaction when discontinued Continue Clonidine HCl (Clonidine Hcl 0.1 Mg Tablet)? 0.1 mg PO TID PRN Reason: hyperarousal Continue Trazodone HCl? 50 mg PO BEDTIME PRN Insomnia Continue Hydroxyzine HCl (Hydroxyzine Hcl 25 Mg Tablet)? 25 mg PO Q6H PRN Anxiety DISCONTINUED Divalproex ER 1000 mg PO QHS on 03/26; patient has been refusing it and since goal is to see if monotherapy with clozapine can work, will just discontinue it for now; patient does not have history of bipolar disorder or manic episodes and this medication was used with only limited success for behavioral issues. DISCONTINUED Haloperidol (was 10 mg BID; patient refuses; at this point might as well see if clozapine by itself can be effective as Haldol has only ever Seemed to be minimally helpful and it's not worth forcing an IM) DISCONTINUED Quetiapine qhs; pt does not want for day to day events (see below)... HOSPITAL COURSE 02/24: Ct treatment plan 02/25: Ct Rx plan. May need committment. Lacks insight and is non compliant with meds. 02/26: Pt adamantly does not want to increase haldol or depakote. Will start seroquel 300 mg QHS for sx of psychotic depression, has not had adequate trial on seroquel. May help with poor sleep. 02/27: Pt has been refusing all meds; AH complaints but denies any SI/HI and his demonstrate safe behaviors on the unit 02/28 retracted 3 day, remains preoccupied with auditory hallucinations of his neighbors and delusional thoughts that his neighbors are persecuting him agrees to stay for treatment; considering clozapine 03/01 Angry and demanding discharge and 3 day notice placed; difficult to engage; no insight.? Refused morning dose of Haldol.? At said he is taking clozapine before and resisted reality testing; however said will still consider 03/02 patient willingly taking clozapine 03/06 patient intermittently takes clozapine; he is disorganized in behavior and thought, intermittently yelling and accusing staff and posturing and threatening staff.? Patient struggles to understand that his rent is paid for; while talking about a specific topic, patient will intermittently respond with a disorganized irrelevant answer.? Patient has failed monotherapy with Seroquel, Palliperidone, Risperdal and Haldol.? Will continue to titrate clozapine as patient is willing to see if this can be effective.? Patient has a 3 day notice due today 03/06/2022.? Team finds that patient is unstable and not safe to return the community as he has ongoing auditory hallucinations and paranoid delusional thoughts that about his neighbors plotting to hurt him.? Will file for Civil commitment; also discussed is that patient may need long-term admission to better establish stability. 03/08 patient disorganized; refused labs making it difficult to titrate clozapine.? Will continue to trying get patient to allow labs 03/09 remains disorganized, sometimes adhering to treatment other times refusing it without any clear pattern.? Patient is not amenable to logical explanation and his engagement in tx is unpredictable making dosing with Clozapine (and depakote) difficult as it requires periodic blood work and controlled titration.? However, Will continue with attempts at clozapine since this seems to be best option for patient to become stabilized 03/10 remains disorganized; won't engage; continues to have AH 03/13 CIVIL COMMITMENT AND SUBSTITUTED JUDGMENT ORDERED 03/16 continue current tx plan 03/19 Patient has moments of insight but quickly descends back into struggles with paranoia, disorganized thinking, thinking AH are real. Patient struggles with taking medication are difficult to predict.?Today he said I feel good, why would it take medication? despite that during the same conversation he also said that he continues to hear his neighbors say mad crap And if they come after him something will happen. The Hope is that clozapine as a monotherapy will be sufficient; race and sports book writer discussed case with patient's past inpatient provider and there is no history of bipolar/manic episodes and Depakote only used for impulsivity/anger.? Thus, will lower Depakote to a 1000 mg q.h.s. With clozapine, it may be easier for patient to tolerate single dosing so will see if moving the entire dose to bedtime helps with adherence rather than being asked to take medications twice a day.? That said, sometimes patient wakes up in the morning and demands his morning medications so it is difficult to know The best way to mitigate his his anxiety around this issue. 03/26 patient has been refusing Depakote; since he does not have history of bipolar disorder manic episodes and this medication has had limited effect, will just discontinue for now and move forward with seen of clozapine can be effective on its own; will also DC Haldol Since patient refuses; at this point might as well see if clozapine by itself can be effective as Haldol has only ever Seemed to be minimally helpful. 03/27 denies auditory hallucinations but remains without any insight and saying that he will not take medications when he goes home because he is good. 03/28 Patient vacillates between being irritable and calm; sometimes he says he will take his medications when he goes home other times he says he is doing fine and does not need it. It is not clear if patient still hears auditory hallucinations or if they have resolved as his reporting is inconsistent. It remains necessary for patient to go to a long-term facility for continued medication management and to have a longer time without symptoms. 04/04 (not 04/05) patient overall more calm and excepting of being on the unit, waiting for further stabilization and outpatient services to be set up before returning to the community; does not want to go to [facility].? Patient's improvement is despite the fact that both Haldol and Depakote have been discontinued; off these medications he is less sedated and up earlier in the day.? Patient denies auditory hallucinations.? Intermittently he can accept that AH has resolved due to medication, but he does not have insight into presence of psychiatric dis order and need for ongoing treatment even when feeling stable.? That said, it is not clear that increasing doses of Clozaril would resolve this impaired insight; his improved presentation and desire to avoid side effects gives pause to further titrating clozapine.? Will leave here for now and monitor.? The remains significant concern the patient would discontinue his medications on discharge and team continues to agree that he needs a prolonged experience of being symptom free to connect his ongoing need for medication. 04/09 no changes 04/12 remains stable; staff discussed and think that patient is likely close to maximum benefit from clozapine so will keep at current dose for now. Concern is that any increase could cause side effects which would be a barrier to patient continue medication on discharge 04/16 Patient remains is stable Tried to discuss sexual side effects of medication but patient was very vague and it is on conclusive; other staff reports that this topic is come up in the past make it less likely related to clozapine 04/19 no changes 04/20 successful meeting today with ACCS; remains calm and pleasant 04/23 remains stable and likely at baseline; will discontinue Cogentin since patient has no history of EPS and is now only on clozapine which has low EPS risk; race and sports book writer discussed with nursing who will monitor for symptoms. 6/21 patient got dystonia with stiff neck which was relieved with Cogentin. [employer] will reorder as scheduled; good meeting with [facility] worker MED Trials: Seroquel Palliperidone Risperdal Haldol I spent minutes with the patient and/or on the patient floor today, greater than?50% of which was spent counseling/coordinating care. Reason for contiued inpatient stay Substantial Risk for: inability to function
[2022-04-25] MEDS: Benztropine Mesylate 0.5 MG TABLET PO (20:05)
[2022-04-26 07:00] VITALS: BMI 36.1
[2022-04-26] MEDS: cloZAPine 100 MG TABLET 350 MG PO (16:51)
[2022-04-26 18:00] VITALS: BP 118/71; PULSE 126; TEMP 36.4; O2SAT 98
--- NOTE | 2022-04-26 18:53 | P.PNPSI_ITS ---
Subjective Subjective Date of Service: 04/26/22 Reason For Visit: schizoaffective Interim History: No complaints, no request. Patient wanted to discuss when the next meetings are and clinical writer and patient wrote them down on his chart; both are scheduled for next week. Patient said he is looking forward to discharge Mental Status Exam Mental Status Exam Narrative: Pt is alert and oriented; behavior, calm, friendly and cooperative; dressed in casual attire, wearing casual cloths, adequately groomed and with adequate hygiene; mood pleasant; affect congruent; eye contact adequate, appropriate; Speech is normal rate, normal volume; normal prosody; no intermittent psychomotor agitation; thought process goal oriented; Thought content is on discharge; he is less perseverative on paranoid delusional worries about being persecuted by his neighbors; Denies SI/HI. denies AH;? Patients insight and judgment are impaired but have improved and possibly at baseline. Diagnostics Vital Signs (24Hr): BMI result Body Mass Index 37.0 Labs Results: 03/01/22 18:29 Medications Medications Current Medications Acetaminophen (Acetaminophen 325 Mg Tablet) 650 mg PO Q6H PRN PRN Reason: Headache/Pain Mild Scale (1-3) Last Admin: 03/03/22 22:41 Dose: 650 mg Al Hydroxide/Mg Hydroxide (Magnesium Hydrox/Alum Hydrox 30 Ml Oral.Susp) 30 ml PO Q6H PRN PRN Reason: Heartburn/Nausea Albuterol Sulfate (Albuterol Sulfate 90 Mcg 8 Gm Inhaler) 2 puff INHALE RQ4H PRN PRN Reason: Shortness Of Breath Benztropine Mesylate (Benztropine Mesylate 0.5 Mg Tablet) 0.5 mg PO BEDTIME [facility] Last Admin: 04/25/22 20:05 Dose: 0.5 mg Clonidine HCl (Clonidine Hcl 0.1 Mg Tablet) 0.1 mg PO TID PRN; Protocol PRN Reason: hyperarousal Last Admin: 02/28/22 21:47 Dose: 0.1 mg Clozapine (Clozapine 100 Mg Tablet) 350 mg PO DAILY@1700 [facility] Last Admin: 04/26/22 16:51 Dose: 350 mg Diphenhydramine HCl (Diphenhydramine Hcl 25 Mg Tablet) 50 mg PO Q4H PRN PRN Reason: agitation Haloperidol (Haloperidol 5 Mg Tablet) 10 mg PO Q4H PRN PRN Reason: agitation Last Admin: 04/03/22 22:17 Dose: 10 mg Haloperidol Lactate (Haloperidol Lactate 5 Mg/Ml Vial) 10 mg IM DAILY PRN PRN Reason: if refuses PO Hydroxyzine HCl (Hydroxyzine Hcl 25 Mg Tablet) 25 mg PO Q6H PRN PRN Reason: Anxiety Last Admin: 04/23/22 21:04 Dose: 25 mg Lidocaine HCl (Lidocaine 4 % Cream Kit) 1 appl TOPICAL DAILY PRN; Protocol PRN Reason: prophylactiinjection site pain Magnesium Hydroxide (Milk Of Magnesia 30 Ml Oral.Susp) 30 ml PO DAILY PRN PRN Reason: Constipation Trazodone HCl (Trazodone Hcl 50 Mg Tablet) 50 mg PO BEDTIME PRN PRN Reason: Insomnia Allergies Allergies Allergy/AdvReac Type Severity Reaction Status Date / Time No Known Allergies Allergy Verified 02/19/22 03:39 [No Known Allergies*] Assessment & Plan Assessment & Plan (1) Schizophrenia, paranoid, chronic with acute exacerbation: Status: Acute Code(s): F20.0 - Paranoid schizophrenia Plan HPI: Nura is a 26 y.o. male who carries a dx of paranoid schizophrenia. Hx of , has fixed delusion of believing neighbors are talking about him. Has DMH and ACCS services through [facility]. No Catarino's order. Hx of med non-adherence upon discharge.? Patient has been repeatedly coming to the emergency room asking for help with auditory hallucinations Formulation: dx Schizophrenia, paranoid type Classification Control Clerk discussed case with colleagues who have worked with patient in the past and also with staff on the unit for current admission. He has a hx of multiple inpatient admissions, including 1 about a month ago with very similar presentation, refusing to take meds, asking for discharge and deemed safe to return to the community. He has been re-presenting to [facility] after being discharged with the same presentation, not dangerous, but asking for help and then refusing treatment wanting discharge. He continues to have auditory hallucinations about his neighbor.?Initially, he has not expressed any delusional concerns that his neighbor is going to hurt him, just that his neighbors talking about him and so considered discharge.?However, Patient soon expressed concerns that his neighbors are plotting to harm him and that he is prepared to harm them back if he needs to defend himself.? As patient has presented several times to the emergency room in between admissions he is demonstrating that he is struggling to function in the community.? He has an extensive history of medication noncompliance. He has chronic paranoid delusions and auditory hallucinations that his neighbors are going to hurt him which intermittently expand to thoughts about preparing to defend himself.? Will continue treatment however, given his long hx of refractory psychosis, no insight and poor adherence with medication, team agrees that patient needs a more long-term admission to stabilize to the point where he could successfully live in the community.? During this admission, patient has significantly improved on clozapine.? He remains so without Haldol and Depakote which have both been discontinued.? He is pleasant and friendly.? Auditory hallucinations are either absent or minimal.? He remains without insight and worries that the voices of his neighbor will return once he goes back home, not understanding that these are auditory hallucinations associated with a psychiatric illness and to that and he will likely continually struggle with medication adherence; thus patient's stability in the community will directly correlate with the effectiveness of outpatient services.? Patient has complained of sexual side effects from clozapine however it is unclear to what extent as patient is a very limited historian; also this topic is come up during past admissions on other medications and it is not clear if it is medication related. PLAN: Section 8b Patient Civil Committed and substituted judgment for medications ordered. Dispostion: Once patient has ACCS services fully established will discharge home; otherwise without extensive community supportive services, patient will quickly decompensate Medication plan:? Trial of clozapine; overlap Haldol/Depak (minimally helpful) for now; goal to see if clozapine can be effective alone Clozapine? 325mg at DINNER time to mitigate daytime tiredness (to help with adherence; was split dosing) CANNOT REFUSE; COURT ORDERED; GIVE HALDOL 5MG IF REFUSES -patient has improved significantly so will leave at this dose for now so as to avoid risk of side-effects ANC 3.4 on 04/20/22 ANC weekly RESTART Benztropine Mesylate (Benztropine Mesylate 0.5 Mg Tablet)? 0.5 mg PO qHS; patient developed dystonic reaction when discontinued Continue Clonidine HCl (Clonidine Hcl 0.1 Mg Tablet)? 0.1 mg PO TID PRN Reason: hyperarousal Continue Trazodone HCl? 50 mg PO BEDTIME PRN Insomnia Continue Hydroxyzine HCl (Hydroxyzine Hcl 25 Mg Tablet)? 25 mg PO Q6H PRN Anxiety DISCONTINUED Divalproex ER 1000 mg PO QHS on 03/26; patient has been refusing it and since goal is to see if monotherapy with clozapine can work, will just discontinue it for now; patient does not have history of bipolar disorder or manic episodes and this medication was used with only limited success for behavioral issues. DISCONTINUED Haloperidol (was 10 mg BID; patient refuses; at this point might as well see if clozapine by itself can be effective as Haldol has only ever Seemed to be minimally helpful and it's not worth forcing an IM) DISCONTINUED Quetiapine qhs; pt does not want for day to day events (see below)... HOSPITAL COURSE 02/24: Ct treatment plan 02/25: Ct Rx plan. May need committment. Lacks insight and is non compliant with meds. 02/26: Pt adamantly does not want to increase haldol or depakote. Will start seroquel 300 mg QHS for sx of psychotic depression, has not had adequate trial on seroquel. May help with poor sleep. 02/27: Pt has been refusing all meds; AH complaints but denies any SI/HI and his demonstrate safe behaviors on the unit 02/28 retracted 3 day, remains preoccupied with auditory hallucinations of his neighbors and delusional thoughts that his neighbors are persecuting him agrees to stay for treatment; considering clozapine 03/01 Angry and demanding discharge and 3 day notice placed; difficult to engage; no insight.? Refused morning dose of Haldol.? At said he is taking clozapine before and resisted reality testing; however said will still consider 03/02 patient willingly taking clozapine 03/06 patient intermittently takes clozapine; he is disorganized in behavior and thought, intermittently yelling and accusing staff and posturing and threatening staff.? Patient struggles to understand that his rent is paid for; while talking about a specific topic, patient will intermittently respond with a disorganized irrelevant answer.? Patient has failed monotherapy with Seroquel, Palliperidone, Risperdal and Haldol.? Will continue to titrate clozapine as patient is willing to see if this can be effective.? Patient has a 3 day notice due today 03/06/2022.? Team finds that patient is unstable and not safe to return the commu wayne as he has ongoing auditory hallucinations and paranoid delusional thoughts that about his neighbors plotting to hurt him.? Will file for Civil commitment; also discussed is that patient may need long-term admission to better establish stability. 03/08 patient disorganized; refused labs making it difficult to titrate clozapine.? Will continue to trying get patient to allow labs 03/09 remains disorganized, sometimes adhering to treatment other times refusing it without any clear pattern.? Patient is not amenable to logical explanation and his engagement in tx is unpredictable making dosing with Clozapine (and depakote) difficult as it requires periodic blood work and controlled titration.? However, Will continue with attempts at clozapine since this seems to be best option for patient to become stabilized 03/10 remains disorganized; won't engage; continues to have AH 03/13 CIVIL COMMITMENT AND SUBSTITUTED JUDGMENT ORDERED 03/16 continue current tx plan 03/19 Patient has moments of insight but quickly descends back into struggles with paranoia, disorganized thinking, thinking AH are real. Patient struggles with taking medication are difficult to predict.?Today he said I feel good, why would it take medication? despite that during the same conversation he also said that he continues to hear his neighbors say mad crap And if they come after him something will happen. The Hope is that clozapine as a monotherapy will be sufficient; clinical writer discussed case with patient's past inpatient provider and there is no history of bipolar/manic episodes and Depakote only used for impulsivity/anger.? Thus, will lower Depakote to a 1000 mg q.h.s. With clozapine, it may be easier for patient to tolerate single dosing so will see if moving the entire dose to bedtime helps with adherence rather than being asked to take medications twice a day.? That said, sometimes patient wakes up in the m orning and demands his morning medications so it is difficult to know The best way to mitigate his his anxiety around this issue. 03/26 patient has been refusing Depakote; since he does not have history of bipolar disorder manic episodes and this medication has had limited effect, will just discontinue for now and move forward with seen of clozapine can be effective on its own; will also DC Haldol Since patient refuses; at this point might as well see if clozapine by itself can be effective as Haldol has only ever Seemed to be minimally helpful. 03/27 denies auditory hallucinations but remains without any insight and saying that he will not take medications when he goes home because he is good. 03/28 Patient vacillates between being irritable and calm; sometimes he says he will take his medications when he goes home other times he says he is doing fine and does not need it. It is not clear if patient still hears auditory hallucinations or if they have resolved as his reporting is inconsistent. It remains necessary for patient to go to a long-term facility for continued medication management and to have a longer time without symptoms. 04/04 (not 04/05) patient overall more calm and excepting of being on the unit, waiting for further stabilization and outpatient services to be set up before returning to the community; does not want to go to [facility].? Patient's improvement is despite the fact that both Haldol and Depakote have been discontinued; off these medications he is less sedated and up earlier in the day.? Patient denies auditory hallucinations.? Intermittently he can accept that AH has resolved due to medication, but he does not have insight into presence of psychiatric d isorder and need for ongoing treatment even when feeling stable.? That said, it is not clear that increasing doses of Clozaril would resolve this impaired insight; his improved presentation and desire to avoid side effects gives pause to further titrating clozapine.? Will leave here for now and monitor.? The remains significant concern the patient would discontinue his medications on discharge and team continues to agree that he needs a prolonged experience of being symptom free to connect his ongoing need for medication. 04/09 no changes 04/12 remains stable; staff discussed and think that patient is likely close to maximum benefit from clozapine so will keep at current dose for now. Concern is that any increase could cause side effects which would be a barrier to patient continue medication on discharge 04/16 Patient remains is stable Tried to discuss sexual side effects of medication but patient was very vague and it is on conclusive; other staff reports that this topic is come up in the past make it less likely related to clozapine 04/19 no changes 04/20 successful meeting today with ACCS; remains calm and pleasant 04/23 remains stable and likely at baseline; will discontinue Cogentin since patient has no history of EPS and is now only on clozapine which has low EPS risk; clinical writer discussed with nursing who will monitor for symptoms. 04/24 patient got dystonia with stiff neck which was relieved with Cogentin. Classification Control Clerk will reorder as scheduled; good meeting with [facility] worker MED Trials: Seroquel Palliperidone Risperdal Haldol I spent minutes with the patient and/or on the patient floor today, greater than?50% of which was spent counseling/coordinating care. Reason for contiued inpatient stay Substantial Risk for: inability to function
[2022-04-26] MEDS: Benztropine Mesylate 0.5 MG TABLET PO (21:20)
[2022-04-27 09:27] LABS: Neut%MD 44.1 %; Neutrophils Absolute Auto 2.6 x10*3/uL (2.0-8.3); WBCANC 5.9 X10*3/uL
[2022-04-27 10:30] VITALS: BP 123/74; PULSE 89; RESP 20; TEMP 36.6; O2SAT 96
[2022-04-27] MEDS: cloZAPine 100 MG TABLET 350 MG PO (16:07)
--- NOTE | 2022-04-27 17:38 | HO.PSYCHPN ---
Subjective Subjective Date of Service: 04/27/22 Reason For Visit: schizoaffective Subjective Notes: Section 8 Healthcare Proxy: No Guardianship: No Medical Problems Affecting Mental Status: No Interim History: Patient seen and discussed with team. Patient evaluated today and upon interview he is found asleep in his room. Says he is doing good, denies having questions or concerns, denies side effects on medications. In the milieu, patient is safe, less intrusive in behavior. Denies SI/SIB/HI upon inquiry. Denies irritability or assaultive ideation. Says he feels safe. Medication Compliance: Yes Side effects from medications: No Attending Groups: No Review of Systems Acute medical concerns: No Medical Review of Systems: unchanged Mental Status Exam Mental Status Exam Narrative: Pt is alert and oriented; behavior, calm, friendly and cooperative; dressed in casual attire, wearing casual cloths, adequately groomed and with adequate hygiene; mood pleasant; affect congruent; eye contact adequate, appropriate; Speech is normal rate, normal volume; normal prosody; no intermittent psychomotor agitation; thought process goal oriented; Thought content is on discharge; he is less perseverative on paranoid delusional worries about being persecuted by his neighbors; Denies SI/HI. denies AH;? Patients insight and judgment are impaired but have improved and possibly at baseline. Diagnostics Vital Signs (24Hr): Vital Signs - 24 hr 04/26/22 18:00 04/27/22 10:30 Temperature 97.5 F 97.8 F Pulse Rate 126 H 89 Respiratory Rate 20 Blood Pressure 118/71 123/74 Pulse Oximetry 98 96 Oxygen Delivery Method Room Air Room Air BMI result Body Mass Index 36.1 Labs Results: 03/01/22 18:29 Labs: Laboratory Results - last 48 hr 04/27/22 08:25 Absolute Neuts (auto) 2.6 Medications Medications Current Medications Acetaminophen (Acetaminophen 325 Mg Tablet) 650 mg PO Q6H PRN PRN Reason: Headache/Pain Mild Scale (1-3) Last Admin: 03/03/22 22:41 Dose: 650 mg Al Hydroxide/Mg Hydroxide (Magnesium Hydrox/Alum Hydrox 30 Ml Oral.Susp) 30 ml PO Q6H PRN PRN Reason: Heartburn/Nausea Albuterol Sulfate (Albuterol Sulfate 90 Mcg 8 Gm Inhaler) 2 puff INHALE RQ4H PRN PRN Reason: Shortness Of Breath Benztropine Mesylate (Benztropine Mesylate 0.5 Mg Tablet) 0.5 mg PO BEDTIME JOE Last Admin: 04/26/22 21:20 Dose: 0.5 mg Clonidine HCl (Clonidine Hcl 0.1 Mg Tablet) 0.1 mg PO TID PRN; Protocol PRN Reason: hyperarousal Last Admin: 02/28/22 21:47 Dose: 0.1 mg Clozapine (Clozapine 100 Mg Tablet) 350 mg PO DAILY@1700 JOE Last Admin: 04/27/22 16:07 Dose: 350 mg Diphenhydramine HCl (Diphenhydramine Hcl 25 Mg Tablet) 50 mg PO Q4H PRN PRN Reason: agitation Haloperidol (Haloperidol 5 Mg Tablet) 10 mg PO Q4H PRN PRN Reason: agitation Last Admin: 04/03/22 22:17 Dose: 10 mg Haloperidol Lactate (Haloperidol Lactate 5 Mg/Ml Vial) 10 mg IM DAILY PRN PRN Reason: if refuses PO Hydroxyzine HCl (Hydroxyzine Hcl 25 Mg Tablet) 25 mg PO Q6H PRN PRN Reason: Anxiety Last Admin: 04/23/22 21:04 Dose: 25 mg Lidocaine HCl (Lidocaine 4 % Cream Kit) 1 appl TOPICAL DAILY PRN; Protocol PRN Reason: prophylactiinjection site pain Magnesium Hydroxide (Milk Of Magnesia 30 Ml Oral.Susp) 30 ml PO DAILY PRN PRN Reason: Constipation Trazodone HCl (Trazodone Hcl 50 Mg Tablet) 50 mg PO BEDTIME PRN PRN Reason: Insomnia Allergies Allergies Allergy/AdvReac Type Severity Reaction Status Date / Time No Known Allergies Allergy Verified 02/19/22 03:39 [No Known Allergies*] Assessment & Plan Assessment & Plan (1) Schizophrenia, paranoid, chronic with acute exacerbation: Status: Acute Code(s): F20.0 - Paranoid schizophrenia Plan HPI: Nura is a 26 y.o. male who carries a dx of paranoid schizophrenia. Hx of AH, has fixed delusion of believing neighbors are talking about him. Has DMH and ACCS services through [facility]. No Catarino's order. Hx of med non-adherence upon discharge.? Patient has been repeatedly coming to the emergency room asking for help with auditory hallucinations Formulation: dx Schizophrenia, paranoid type [employer] Work[employer] discussed case with colleagues who have worked with patient in the past and also with staff on the unit for current admission. He has a hx of multiple inpatient admissions, including 1 about a month ago with very similar presentation, refusing to take meds, asking for discharge and deemed safe to return to the community. He has been re-presenting to [facility] after being discharged with the same presentation, not dangerous, but asking for help and then refusing treatment wanting discharge. He continues to have auditory hallucinations about his neighbor.?Initially, he has not expressed any delusional concerns that his neighbor is going to hurt him, just that his neighbors talking about him and so considered discharge.?However, Patient soon expressed concerns that his neighbors are plotting to harm him and that he is prepared to harm them back if he needs to defend himself.? As patient has presented several times to the emergency room in between admissions he is demonstrating that he is struggling to function in the community.? He has an extensive history of medication noncompliance. He has chronic paranoid delusions and auditory hallucinations that his neighbors are going to hurt him which intermittently expand to thoughts about preparing to defend himself.? Will continue treatment however, given his long hx of refractory psychosis, no insight and poor adherence with medication, team agrees that patient needs a more long-term admission to stabilize to the point where he could successfully live in the community.? During this admission, patient has significantly improved on clozapine.? He remains so without Haldol and Depakote which have both been discontinued.? He is pleasant and friendly.? Auditory hallucinations are either absent or minimal.? He remains without insight and worries that the voices of his neighbor will return once he goes back home, not understanding that these are auditory hallucinations associated with a psychiatric illness and to that and he will likely continually struggle with medication adherence; thus patient's stability in the community will directly correlate with the effectiveness of outpatient services.? Patient has complained of sexual side effects from clozapine however it is unclear to what extent as patient is a very limited historian; also this topic is come up during past admissions on other medications and it is not clear if it is medication related. PLAN: Section 8b Patient Civil Committed and substituted judgment for medications ordered. Dispostion: Once patient has ACCS services fully established will discharge home; otherwise without extensive community supportive services, patient will quickly decompensate Medication plan:? Trial of clozapine; overlap Haldol/Depak (minimally helpful) for now; goal to see if clozapine can be effective alone Clozapine? 325mg at DINNER time to mitigate daytime tiredness (to help with adherence; was split dosing) CANNOT REFUSE; COURT ORDERED; GIVE HALDOL 5MG IF REFUSES -patient has improved significantly so will leave at this dose for now so as to avoid risk of side-effects ANC 3.4 on 04/20/22 ANC weekly RESTART Benztropine Mesylate (Benztropine Mesylate 0.5 Mg Tablet)? 0.5 mg PO qHS; patient developed dystonic reaction when discontinued Continue Clonidine HCl (Clonidine Hcl 0.1 Mg Tablet)? 0.1 mg PO TID PRN Reason: hyperarousal Continue Trazodone HCl? 50 mg PO BEDTIME PRN Insomnia Continue Hydroxyzine HCl (Hydroxyzine Hcl 25 Mg Tablet)? 25 mg PO Q6H PRN Anxiety DISCONTINUED Divalproex ER 1000 mg PO QHS on 03/26; patient has been refusing it and since goal is to see if monotherapy with clozapine can work, will just discontinue it for now; patient does not have history of bipolar disorder or manic episodes and this medication was used with only limited success for behavioral issues. DISCONTINUED Haloperidol (was 10 mg BID; patient refuses; at this point might as well see if clozapine by itself can be effective as Haldol has only ever Seemed to be minimally helpful and it's not worth forcing an IM) DISCONTINUED Quetiapine qhs; pt does not want for day to day events (see below)... HOSPITAL COURSE 02/24: Ct treatment plan 02/25: Ct Rx plan. May need committment. Lacks insight and is non compliant with meds. 02/26: Pt adamantly does not want to increase haldol or depakote. Will start seroquel 300 mg QHS for sx of psychotic depression, has not had adequate trial on seroquel. May help with poor sleep. 02/27: Pt has been refusing all meds; AH complaints but denies any SI/HI and his demonstrate safe behaviors on the unit 02/28 retracted 3 day, remains preoccupied with auditory hallucinations of his neighbors and delusional thoughts that his neighbors are persecuting him agrees to stay for treatment; considering clozapine 03/01 Angry and demanding discharge and 3 day notice placed; difficult to engage; no insight.? Refused morning dose of Haldol.? At said he is taking clozapine before and resisted reality testing; however said will still consider 03/02 patient willingly taking clozapine 03/06 patient intermittently takes clozapine; he is disorganized in behavior and thought, intermittently yelling and accusing staff and posturing and threatening staff.? Patient struggles to understand that his rent is paid for; while talking about a specific topic, patient will intermittently respond with a disorganized irrelevant answer.? Patient has failed monotherapy with Seroquel, Palliperidone, Risperdal and Haldol.? Will continue to titrate clozapine as patient is willing to see if this can be effective.? Patient has a 3 day notice due today 03/06/2022.? Team finds that patient is unstable and not safe to return the community as he has ongoing auditory hallucinations and paranoid delusional thoughts that about his neighbors plotting to hurt him.? Will file for Civil commitment; also discussed is that patient may need long-term admission to better establish stability. 03/08 patient disorganized; refused labs making it difficult to titrate clozapine.? Will continue to trying get patient to allow labs 03/09 remains disorganized, sometimes adhering to treatment other times refusing it without any clear pattern.? Patient is not amenable to logical explanation and his engagement in tx is unpredictable making dosing with Clozapine (and depakote) difficult as it requires periodic blood work and controlled titration.? However, Will continue with attempts at clozapine since this seems to be best option for patient to become stabilized 03/10 remains disorganized; won't engage; continues to have AH 03/13 CIVIL COMMITMENT AND SUBSTITUTED JUDGMENT ORDERED 03/16 continue current tx plan 03/19 Patient has moments of insight but quickly descends back into struggles with paranoia, disorganized thinking, thinking AH are real. Patient struggles with taking medication are difficult to predict.?Today he said I feel good, why would it take medication? despite that during the same conversation he also said that he continues to hear his neighbors say mad crap And if they come after him something will happen. The Hope is that clozapine as a monotherapy will be sufficient; insurance underwriter sales discussed case with patient's past inpatient provider and there is no history of bipolar/manic episodes and Depakote only used for impulsivity/anger.? Thus, will lower Depakote to a 1000 mg q.h.s. With clozapine, it may be easier for patient to tolerate single dosing so will see if moving the entire dose to bedtime helps with adherence rather than being asked to take medications twice a day.? That said, sometimes patient wakes up in the morning and demands his morning medications so it is difficult to know The best way to mitigate his his anxiety around this issue. 03/26 patient has been refusing Depakote; since he does not have history of bipolar disorder manic episodes and this medication has had limited effect, will just discontinue for now and move forward with seen of clozapine can be effective on its own; will also DC Haldol Since patient refuses; at this point might as well see if clozapine by itself can be effective as Haldol has only ever Seemed to be minimally helpful. 03/27 denies auditory hallucinations but remains without any insight and saying that he will not take medications when he goes home because he is good. 03/28 Patient vacillates between being irritable and calm; sometimes he says he will take his medications when he goes home other times he says he is doing fine and does not need it. It is not clear if patient still hears auditory hallucinations or if they have resolved as his reporting is inconsistent. It remains necessary for patient to go to a long-term facility for continued medication management and to have a longer time without symptoms. 04/04 (not 04/05) patient overall more calm and excepting of being on the unit, waiting for further stabilization and outpatient services to be set up before returning to the community; does not want to go to [facility].? Patient's improvement is despite the fact that both Haldol and Depakote have been discontinued; off these medications he is less sedated and up earlier in the day.? Patient denies auditory hallucinations.? Intermittently he can accept that AH has resolved due to medication, but he does not have insight into presence of psychiatric disorder and need for ongoing treatment even when feeling stable.? That said, it is not clear that increasing doses of Clozaril would resolve this impaired insight; his improved presentation and desire to avoid side effects gives pause to further titrating clozapine.? Will leave here for now and monitor.? The remains significant concern the patient would discontinue his medications on discharge and team continues to agree that he needs a prolonged experience of being symptom free to connect his ongoing need for medication. 04/09 no changes 04/12 remains stable; staff discussed and think that patient is likely close to maximum benefit from clozapine so will keep at current dose for now. Concern is that any increase could cause side effects which would be a barrier to patient continue medication on discharge 04/16 Patient remains is stable Tried to discuss sexual side effects of medication but patient was very vague and it is on conclusive; other staff reports that this topic is come up in the past make it less likely related to clozapine 04/19 no changes 04/20 successful meeting today with ACCS; remains calm and pleasant 04/23 remains stable and likely at baseline; will discontinue Cogentin since patient has no history of EPS and is now only on clozapine which has low EPS risk; insurance underwriter sales discussed with nursing who will monitor for symptoms. 04/24 patient got dystonia with stiff neck which was relieved with Cogentin. [employer] Worker will reorder as scheduled; good meeting with [facility] worker 04/27 No changes to treatment team, pt denies dystonia MED Trials: Seroquel Palliperidone Risperdal Haldol I spent minutes with the patient and/or on the patient floor today, greater than?50% of which was spent counseling/coordinating care. Patient educated on: therapeutic strategies Reason for contiued inpatient stay Substantial Risk for: inability to function, rapid decompensation and med/psych decompensation
[2022-04-27] MEDS: Benztropine Mesylate 0.5 MG TABLET PO (21:10)
[2022-04-27] MEDS: hydrOXYzine HCL 25 MG TABLET PO (21:11)
[2022-04-28] MEDS: cloZAPine 100 MG TABLET 350 MG PO (16:10)
[2022-04-28 18:00] VITALS: BP 119/80; PULSE 128; RESP 18; TEMP 37; O2SAT 94
--- NOTE | 2022-04-28 20:49 | HO.PSYCHPN ---
Subjective Subjective Date of Service: 04/28/22 Reason For Visit: schizoaffective Subjective Notes: Telles Order and Section 8 Interim History: Patient seen and discussed with team. Patient evaluated today and upon interview he is in bed in his room. Says he is doing good, denies having questions or concerns, denies side effects on medications. In the milieu, patient is safe, less intrusive in behavior. Denies SI/SIB/HI upon inquiry. Denies irritability or assaultive ideation. Says he feels safe. Medication Compliance: Yes Side effects from medications: No Attending Groups: No Review of Systems Acute medical concerns: No Medical Review of Systems: unchanged Review of Systems Review of Systems Yes all other systems are reviewed and are negative Mental Status Exam Mental Status Exam Narrative: Pt is alert and oriented; behavior, calm and cooperative; dressed in casual attire, wearing casual cloths, adequately groomed and with adequate hygiene; mood pleasant; affect congruent; eye contact adequate, appropriate; Speech is normal rate, normal volume; normal prosody; no intermittent psychomotor agitation; thought process goal oriented; Thought content is on discharge; he is less perseverative on paranoid delusional worries about being persecuted by his neighbors; Denies SI/HI. denies AH;? Patients insight and judgment are impaired but have improved and possibly at baseline. Patient Appearance: Appropriate Patient Orientation: Person, Place and Situation Level of Consciousness: Alert Patient Behavior: Good Eye Contact Mood Description: Apprehensive Affect Description: Constricted Patient Cognition Impaired: No Ability to Follow Directions: Good Speech Pattern: Spontaneous Speech Memory Description: Episodic Impaired Diagnostics Vital Signs (24Hr): Vital Signs - 24 hr 04/28/22 18:00 Temperature 98.6 F Pulse Rate 128 H Respiratory Rate 18 Blood Pressure 119/80 Pulse Oximetry 94 Oxygen Delivery Method Room Air BMI result Body Mass Index 36.1 Labs Results: 03/01/22 18:29 Labs: Laboratory Results - last 48 hr 04/27/22 08:25 Absolute Neuts (auto) 2.6 Medications Medications Current Medications Acetaminophen (Acetaminophen 325 Mg Tablet) 650 mg PO Q6H PRN PRN Reason: Headache/Pain Mild Scale (1-3) Last Admin: 03/03/22 22:41 Dose: 650 mg Al Hydroxide/Mg Hydroxide (Magnesium Hydrox/Alum Hydrox 30 Ml Oral.Susp) 30 ml PO Q6H PRN PRN Reason: Heartburn/Nausea Albuterol Sulfate (Albuterol Sulfate 90 Mcg 8 Gm Inhaler) 2 puff INHALE RQ4H PRN PRN Reason: Shortness Of Breath Benztropine Mesylate (Benztropine Mesylate 0.5 Mg Tablet) 0.5 mg PO BEDTIME JOE Last Admin: 04/27/22 21:10 Dose: 0.5 mg Clonidine HCl (Clonidine Hcl 0.1 Mg Tablet) 0.1 mg PO TID PRN; Protocol PRN Reason: hyperarousal Last Admin: 02/28/22 21:47 Dose: 0.1 mg Clozapine (Clozapine 100 Mg Tablet) 350 mg PO DAILY@1700 JOE Last Admin: 04/28/22 16:10 Dose: 350 mg Diphenhydramine HCl (Diphenhydramine Hcl 25 Mg Tablet) 50 mg PO Q4H PRN PRN Reason: agitation Haloperidol (Haloperidol 5 Mg Tablet) 10 mg PO Q4H PRN PRN Reason: agitation Last Admin: 04/03/22 22:17 Dose: 10 mg Haloperidol Lactate (Haloperidol Lactate 5 Mg/Ml Vial) 10 mg IM DAILY PRN PRN Reason: if refuses PO Hydroxyzine HCl (Hydroxyzine Hcl 25 Mg Tablet) 25 mg PO Q6H PRN PRN Reason: Anxiety Last Admin: 04/27/22 21:11 Dose: 25 mg Lidocaine HCl (Lidocaine 4 % Cream Kit) 1 appl TOPICAL DAILY PRN; Protocol PRN Reason: prophylactiinjection site pain Magnesium Hydroxide (Milk Of Magnesia 30 Ml Oral.Susp) 30 ml PO DAILY PRN PRN Reason: Constipation Trazodone HCl (Trazodone Hcl 50 Mg Tablet) 50 mg PO BEDTIME PRN PRN Reason: Insomnia Allergies Allergies Allergy/AdvReac Type Severity Reaction Status Date / Time No Known Allergies Allergy Verified 02/19/22 03:39 [No Known Allergies*] Assessment & Plan Assessment & Plan (1) Schizophrenia, paranoid, chronic with acute exacerbation: Status: Acute Code(s): F20.0 - Paranoid schizophrenia Plan HPI: Nura is a 26 y.o. male who carries a dx of paranoid schizophrenia. Hx of , has fixed delusion of believing neighbors are talking about him. Has DMH and ACCS services through [facility]. No Catarino's order. Hx of med non-adherence upon discharge.? Patient has been repeatedly coming to the emergency room asking for help with auditory hallucinations Formulation: dx Schizophrenia, paranoid type Otolaryngology Surgeon discussed case with colleagues who have worked with patient in the past and also with staff on the unit for current admission. He has a hx of multiple inpatient admissions, including 1 about a month ago with very similar presentation, refusing to take meds, asking for discharge and deemed safe to return to the community. He has been re-presenting to [facility] after being discharged with the same presentation, not dangerous, but asking for help and then refusing treatment wanting discharge. He continues to have auditory hallucinations about his neighbor.?Initially, he has not expressed any delusional concerns that his neighbor is going to hurt him, just that his neighbors talking about him and so considered discharge.?However, Patient soon expressed concerns that his neighbors are plotting to harm him and that he is prepared to harm them back if he needs to defend himself.? As patient has presented several times to the emergency room in between admissions he is demonstrating that he is struggling to function in the community.? He has an extensive history of medication noncompliance. He has chronic paranoid delusions and auditory hallucinations that his neighbors are going to hurt him which intermittently expand to thoughts about preparing to defend himself.? Will continue treatment however, given his long hx of refractory psychosis, no insight and poor adherence with medication, team agrees that patient needs a more long-term admission to stabilize to the point where he could successfully live in the community.? During this admission, patient has significantly improved on clozapine.? He remains so without Haldol and Depakote which have both been discontinued.? He is pleasant and friendly.? Auditory hallucinations are either absent or minimal.? He remains without insight and worries that the voices of his neighbor will return once he goes back home, not understanding that these are auditory hallucinations associated with a psychiatric illness and to that and he will likely continually struggle with medication adherence; thus patient's stability in the community will directly correlate with the effectiveness of outpatient services.? Patient has complained of sexual side effects from clozapine however it is unclear to what extent as patient is a very limited historian; also this topic is come up during past admissions on other medications and it is not clear if it is medication related. PLAN: Section 8b Patient Civil Committed and substituted judgment for medications ordered. Dispostion: Once patient has ACCS services fully established will discharge home; otherwise without extensive community supportive services, patient will quickly decompensate Medication plan:? Trial of clozapine; overlap Haldol/Depak (minimally helpful) for now; goal to see if clozapine can be effective alone Clozapine? 325mg at DINNER time to mitigate daytime tiredness (to help with adherence; was split dosing) CANNOT REFUSE; COURT ORDERED; GIVE HALDOL 5MG IF REFUSES -patient has improved significantly so will leave at this dose for now so as to avoid risk of side-effects ANC 3.4 on 04/20/22 ANC weekly RESTART Benztropine Mesylate (Benztropine Mesylate 0.5 Mg Tablet)? 0.5 mg PO qHS; patient developed dystonic reaction when discontinued Continue Clonidine HCl (Clonidine Hcl 0.1 Mg Tablet)? 0.1 mg PO TID PRN Reason: hyperarousal Continue Trazodone HCl? 50 mg PO BEDTIME PRN Insomnia Continue Hydroxyzine HCl (Hydroxyzine Hcl 25 Mg Tablet)? 25 mg PO Q6H PRN Anxiety DISCONTINUED Divalproex ER 1000 mg PO QHS on 03/26; patient has been refusing it and since goal is to see if monotherapy with clozapine can work, will just discontinue it for now; patient does not have history of bipolar disorder or manic episodes and this medication was used with only limited success for behavioral issues. DISCONTINUED Haloperidol (was 10 mg BID; patient refuses; at this point might as well see if clozapine by itself can be effective as Haldol has only ever Seemed to be minimally helpful and it's not worth forcing an IM) DISCONTINUED Quetiapine qhs; pt does not want for day to day events (see below)... HOSPITAL COURSE 02/24: Ct treatment plan 02/25: Ct Rx plan. May need committment. Lacks insight and is non compliant with meds. 02/26: Pt adamantly does not want to increase haldol or depakote. Will start seroquel 300 mg QHS for sx of psychotic depression, has not had adequate trial on seroquel. May help with poor sleep. 02/27: Pt has been refusing all meds; AH complaints but denies any SI/HI and his demonstrate safe behaviors on the unit 02/28 retracted 3 day, remains preoccupied with auditory hallucinations of his neighbors and delusional thoughts that his neighbors are persecuting him agrees to stay for treatment; considering clozapine 03/01 Angry and demanding discharge and 3 day notice placed; difficult to engage; no insight.? Refused morning dose of Haldol.? At said he is taking clozapine before and resisted reality testing; however said will still consider 03/02 patient willingly taking clozapine 03/06 patient intermittently takes clozapine; he is disorganized in behavior and thought, intermittently yelling and accusing staff and posturing and threatening staff.? Patient struggles to understand that his rent is paid for; while talking about a specific topic, patient will intermittently respond with a disorganized irrelevant answer.? Patient has failed monotherapy with Seroquel, Palliperidone, Risperdal and Haldol.? Will continue to titrate clozapine as patient is willing to see if this can be effective.? Patient has a 3 day notice due today 03/06/2022.? Team finds that patient is unstable and not safe to return the community as he has ongoing auditory hallucinations and paranoid delusional thoughts that about his neighbors plotting to hurt him.? Will file for Civil commitment; also discussed is that patient may need long-term admission to better establish stability. 03/08 patient disorganized; refused labs making it difficult to titrate clozapine.? Will continue to trying get patient to allow labs 03/09 remains disorganized, sometimes adhering to treatment other times refusing it without any clear pattern.? Patient is not amenable to logical explanation and his engagement in tx is unpredictable making dosing with Clozapine (and depakote) difficult as it requires periodic blood work and controlled titration.? However, Will continue with attempts at clozapine since this seems to be best option for patient to become stabilized 03/10 remains disorganized; won't engage; continues to have AH 03/13 CIVIL COMMITMENT AND SUBSTITUTED JUDGMENT ORDERED 03/16 continue current tx plan 03/19 Patient has moments of insight but quickly descends back into struggles with paranoia, disorganized thinking, thinking AH are real. Patient struggles with taking medication are difficult to predict.?Today he said I feel good, why would it take medication? despite that during the same conversation he also said that he continues to hear his neighbors say mad crap And if they come after him something will happen. The Hope is that clozapine as a monotherapy will be sufficient; race and sports book writer discussed case with patient's past inpatient provider and there is no history of bipolar/manic episodes and Depakote only used for impulsivity/anger.? Thus, will lower Depakote to a 1000 mg q.h.s. With clozapine, it may be easier for patient to tolerate single dosing so will see if moving the entire dose to bedtime helps with adherence rather than being asked to take medications twice a day.? That said, sometimes patient wakes up in the morning and demands his morning medications so it is difficult to know The best way to mitigate his his anxiety around this issue. 03/26 patient has been refusing Depakote; since he does not have history of bipolar disorder manic episodes and this medication has had limited effect, will just discontinue for now and move forward with seen of clozapine can be effective on its own; will also DC Haldol Since patient refuses; at this point might as well see if clozapine by itself can be effective as Haldol has only ever Seemed to be minimally helpful. 03/27 denies auditory hallucinations but remains without any insight and saying that he will not take medications when he goes home because he is good. 03/28 Patient vacillates between being irritable and calm; sometimes he says he will take his medications when he goes home other times he says he is doing fine and does not need it. It is not clear if patient still hears auditory hallucinations or if they have resolved as his reporting is inconsistent. It remains necessary for patient to go to a long-term facility for continued medication management and to have a longer time without symptoms. 04/04 (not 04/05) patient overall more calm and excepting of being on the unit, waiting for further stabilization and outpatient services to be set up before returning to the community; does not want to go to [facility].? Patient's improvement is despite the fact that both Haldol and Depakote have been discontinued; off these medications he is less sedated and up earlier in the day.? Patient denies auditory hallucinations.? Intermittently he can accept that AH has resolved due to medication, but he does not have insight into presence of psychiatric disorder and need for ongoing treatment even when feeling stable.? That said, it is not clear that increasing doses of Clozaril would resolve this impaired insight; his improved presentation and desire to avoid side effects gives pause to further titrating clozapine.? Will leave here for now and monitor.? The remains significant concern the patient would discontinue his medications on discharge and team continues to agree that he needs a prolonged experience of being symptom free to connect his ongoing need for medication. 04/09 no changes 04/12 remains stable; staff discussed and think that patient is likely close to maximum benefit from clozapine so will keep at current dose for now. Concern is that any increase could cause side effects which would be a barrier to patient continue medication on discharge 04/16 Patient remains is stable Tried to discuss sexual side effects of medication but patient was very vague and it is on conclusive; other staff reports that this topic is come up in the past make it less likely related to clozapine 04/19 no changes 04/20 successful meeting today with ACCS; remains calm and pleasant 04/23 remains stable and likely at baseline; will discontinue Cogentin since patient has no history of EPS and is now only on clozapine which has low EPS risk; race and sports book writer discussed with nursing who will monitor for symptoms. 04/24 patient got dystonia with stiff neck which was relieved with Cogentin. Otolaryngology Surgeon will reorder as scheduled; good meeting with [facility] worker 04/27 No changes to treatment team, pt denies dystonia 04/28: no change - continue treatment plan MED Trials: Seroquel Palliperidone Risperdal Haldol I spent minutes with the patient and/or on the patient floor today, greater than?50% of which was spent counseling/coordinating care. Reason for contiued inpatient stay Substantial Risk for: harm to self, harm to others and inability to function
[2022-04-28] MEDS: Benztropine Mesylate 0.5 MG TABLET PO (21:31)
--- NOTE | 2022-04-29 10:08 | HO.PSYCHPN ---
Subjective Subjective Date of Service: 04/29/22 Reason For Visit: schizoaffective Subjective Notes: Telles Order and Section 8 Medical Problems Affecting Mental Status: No Interim History: Pt compliant with medications, sleeping through night; continues to have paranoid thoughts but in good control. Medication Compliance: Yes Side effects from medications: No Review of Systems Acute medical concerns: No Medical Review of Systems: unchanged Review of Systems Review of Systems Yes all other systems are reviewed and are negative Mental Status Exam Mental Status Exam Narrative: Pt is alert and oriented; behavior, calm and cooperative; dressed in casual attire, wearing casual cloths, adequately groomed and with adequate hygiene; mood pleasant; affect congruent; eye contact adequate, appropriate; Speech is normal rate, normal volume; normal prosody; no intermittent psychomotor agitation; thought process goal oriented; Thought content is on discharge; he is less perseverative on paranoid delusional worries about being persecuted by his neighbors; Denies SI/HI. denies AH;? Patients insight and judgment are impaired but have improved and possibly at baseline. Patient Appearance: Appropriate Patient Orientation: Person, Place and Situation Level of Consciousness: Alert Patient Behavior: Good Eye Contact Mood Description: Apprehensive Affect Description: Constricted Patient Cognition Impaired: No Ability to Follow Directions: Good Speech Pattern: Spontaneous Speech Memory Description: Episodic Impaired Diagnostics Vital Signs (24Hr): Vital Signs - 24 hr 04/28/22 18:00 Temperature 98.6 F Pulse Rate 128 H Respiratory Rate 18 Blood Pressure 119/80 Pulse Oximetry 94 Oxygen Delivery Method Room Air BMI result Body Mass Index 36.1 Labs Results: 03/01/22 18:29 Medications Medications Current Medications Acetaminophen (Acetaminophen 325 Mg Tablet) 650 mg PO Q6H PRN PRN Reason: Headache/Pain Mild Scale (1-3) Last Admin: 03/03/22 22:41 Dose: 650 mg Al Hydroxide/Mg Hydroxide (Magnesium Hydrox/Alum Hydrox 30 Ml Oral.Susp) 30 ml PO Q6H PRN PRN Reason: Heartburn/Nausea Albuterol Sulfate (Albuterol Sulfate 90 Mcg 8 Gm Inhaler) 2 puff INHALE RQ4H PRN PRN Reason: Shortness Of Breath Benztropine Mesylate (Benztropine Mesylate 0.5 Mg Tablet) 0.5 mg PO BEDTIME [facility] Last Admin: 04/28/22 21:31 Dose: 0.5 mg Clonidine HCl (Clonidine Hcl 0.1 Mg Tablet) 0.1 mg PO TID PRN; Protocol PRN Reason: hyperarousal Last Admin: 02/28/22 21:47 Dose: 0.1 mg Clozapine (Clozapine 100 Mg Tablet) 350 mg PO DAILY@1700 JOE Last Admin: 04/28/22 16:10 Dose: 350 mg Diphenhydramine HCl (Diphenhydramine Hcl 25 Mg Tablet) 50 mg PO Q4H PRN PRN Reason: agitation Haloperidol (Haloperidol 5 Mg Tablet) 10 mg PO Q4H PRN PRN Reason: agitation Last Admin: 04/03/22 22:17 Dose: 10 mg Haloperidol Lactate (Haloperidol Lactate 5 Mg/Ml Vial) 10 mg IM DAILY PRN PRN Reason: if refuses PO Hydroxyzine HCl (Hydroxyzine Hcl 25 Mg Tablet) 25 mg PO Q6H PRN PRN Reason: Anxiety Last Admin: 04/27/22 21:11 Dose: 25 mg Lidocaine HCl (Lidocaine 4 % Cream Kit) 1 appl TOPICAL DAILY PRN; Protocol PRN Reason: prophylactiinjection site pain Magnesium Hydroxide (Milk Of Magnesia 30 Ml Oral.Susp) 30 ml PO DAILY PRN PRN Reason: Constipation Trazodone HCl (Trazodone Hcl 50 Mg Tablet) 50 mg PO BEDTIME PRN PRN Reason: Insomnia Allergies Allergies Allergy/AdvReac Type Severity Reaction Status Date / Time No Known Allergies Allergy Verified 02/19/22 03:39 [No Known Allergies*] Assessment & Plan Assessment & Plan (1) Schizophrenia, paranoid, chronic with acute exacerbation: Status: Acute Code(s): F20.0 - Paranoid schizophrenia Plan HPI: Nura is a 26 y.o. male who carries a dx of paranoid schizophrenia. Hx of AH, has fixed delusion of believing neighbors are talking about him. Has DMH and ACCS services through [facility]. No Catarino's order. Hx of med non-adherence upon discharge.? Patient has been repeatedly coming to the emergency room asking for help with auditory hallucinations Formulation: dx Schizophrenia, paranoid type Clinical Physician Assistant discussed case with colleagues who have worked with patient in the past and also with staff on the unit for current admission. He has a hx of multiple inpatient admissions, including 1 about a month ago with very similar presentation, refusing to take meds, asking for discharge and deemed safe to return to the community. He has been re-presenting to [facility] after being discharged with the same presentation, not dangerous, but asking for help and then refusing treatment wanting discharge. He continues to have auditory hallucinations about his neighbor.?Initially, he has not expressed any delusional concerns that his neighbor is going to hurt him, just that his neighbors talking about him and so considered discharge.?However, Patient soon expressed concerns that his neighbors are plotting to harm him and that he is prepared to harm them back if he needs to defend himself.? As patient has presented several times to the emergency room in between admissions he is demonstrating that he is struggling to function in the community.? He has an extensive history of medication noncompliance. He has chronic paranoid delusions and auditory hallucinations that his neighbors are going to hurt him which intermittently expand to thoughts about preparing to defend himself.? Will continue treatment however, given his long hx of refractory psychosis, no insight and poor adherence with medication, team agrees that patient needs a more long-term admission to stabilize to the point where he could successfully live in the community.? During this admission, patient has significantly improved on clozapine.? He remains so without Haldol and Depakote which have both been discontinued.? He is pleasant and friendly.? Auditory hallucinations are either absent or minimal.? He remains without insight and worries that the voices of his neighbor will return once he goes back home, not understanding that these are auditory hallucinations associated with a psychiatric illness and to that and he will likely continually struggle with medication adherence; thus patient's stability in the community will directly correlate with the effectiveness of outpatient services.? Patient has complained of sexual side effects from clozapine however it is unclear to what extent as patient is a very limited historian; also this topic is come up during past admissions on other medications and it is not clear if it is medication related. PLAN: Section 8b Patient Civil Committed and substituted judgment for medications ordered. Dispostion: Once patient has ACCS services fully established will discharge home; otherwise without extensive community supportive services, patient will quickly decompensate Medication plan:? Trial of clozapine; overlap Haldol/Depak (minimally helpful) for now; goal to see if clozapine can be effective alone Clozapine? 325mg at DINNER time to mitigate daytime tiredness (to help with adherence; was split dosing) CANNOT REFUSE; COURT ORDERED; GIVE HALDOL 5MG IF REFUSES -patient has improved significantly so will leave at this dose for now so as to avoid risk of side-effects ANC 3.4 on 04/20/22 ANC weekly RESTART Benztropine Mesylate (Benztropine Mesylate 0.5 Mg Tablet)? 0.5 mg PO qHS; patient developed dystonic reaction when discontinued Continue Clonidine HCl (Clonidine Hcl 0.1 Mg Tablet)? 0.1 mg PO TID PRN Reason: hyperarousal Continue Trazodone HCl? 50 mg PO BEDTIME PRN Insomnia Continue Hydroxyzine HCl (Hydroxyzine Hcl 25 Mg Tablet)? 25 mg PO Q6H PRN Anxiety DISCONTINUED Divalproex ER 1000 mg PO QHS on 03/26; patient has been refusing it and since goal is to see if monotherapy with clozapine can work, will just discontinue it for now; patient does not have history of bipolar disorder or manic episodes and this medication was used with only limited success for behavioral issues. DISCONTINUED Haloperidol (was 10 mg BID; patient refuses; at this point might as well see if clozapine by itself can be effective as Haldol has only ever Seemed to be minimally helpful and it's not worth forcing an IM) DISCONTINUED Quetiapine qhs; pt does not want for day to day events (see below)... HOSPITAL COURSE 02/24: Ct treatment plan 02/25: Ct Rx plan. May need committment. Lacks insight and is non compliant with meds. 02/26: Pt adamantly does not want to increase haldol or depakote. Will start seroquel 300 mg QHS for sx of psychotic depression, has not had adequate trial on seroquel. May help with poor sleep. 02/27: Pt has been refusing all meds; AH complaints but denies any SI/HI and his demonstrate safe behaviors on the unit 02/28 retracted 3 day, remains preoccupied with auditory hallucinations of his neighbors and delusional thoughts that his neighbors are persecuting him agrees to stay for treatment; considering clozapine 03/01 Angry and demanding discharge and 3 day notice placed; difficult to engage; no insight.? Refused morning dose of Haldol.? At said he is taking clozapine before and resisted reality testing; however said will still consider 03/02 patient willingly taking clozapine 03/06 patient intermittently takes clozapine; he is disorganized in behavior and thought, intermittently yelling and accusing staff and posturing and threatening staff.? Patient struggles to understand that his rent is paid for; while talking about a specific topic, patient will intermittently respond with a disorganized irrelevant answer.? Patient has failed monotherapy with Seroquel, Palliperidone, Risperdal and Haldol.? Will continue to titrate clozapine as patient is willing to see if this can be effective.? Patient has a 3 day notice due today 03/06/2022.? Team finds that patient is unstable and not safe to return the community as he has ongoing auditory hallucinations and paranoid delusional thoughts that about his neighbors plotting to hurt him.? Will file for Civil commitment; also discussed is that patient may need long-term admission to better establish stability. 03/08 patient disorganized; refused labs making it difficult to titrate clozapine.? Will continue to trying get patient to allow labs 03/09 remains disorganized, sometimes adhering to treatment other times refusing it without any clear pattern.? Patient is not amenable to logical explanation and his engagement in tx is unpredictable making dosing with Clozapine (and depakote) difficult as it requires periodic blood work and controlled titration.? However, Will continue with attempts at clozapine since this seems to be best option for patient to become stabilized 03/10 remains disorganized; won't engage; continues to have AH 03/13 CIVIL COMMITMENT AND SUBSTITUTED JUDGMENT ORDERED 03/16 continue current tx plan 03/19 Patient has moments of insight but quickly descends back into struggles with paranoia, disorganized thinking, thinking AH are real. Patient struggles with taking medication are difficult to predict.?Today he said I feel good, why would it take medication? despite that during the same conversation he also said that he continues to hear his neighbors say mad crap And if they come after him something will happen. 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 Thus, will lower Depakote to a 1000 mg q.h.s. With clozapine, it may be easier for patient to tolerate single dosing so will see if moving the entire dose to bedtime helps with adherence rather than being asked to take medications twice a day.? That said, sometimes patient wakes up in the morning and demands his morning medications so it is difficult to know The best way to mitigate his his anxiety around this issue. 03/26 patient has been refusing Depakote; since he does not have history of bipolar disorder manic episodes and this medication has had limited effect, will just discontinue for now and move forward with seen of clozapine can be effective on its own; will also DC Haldol Since patient refuses; at this point might as well see if clozapine by itself can be effective as Haldol has only ever Seemed to be minimally helpful. 03/27 denies auditory hallucinations but remains without any insight and saying that he will not take medications when he goes home because he is good. 03/28 Patient vacillates between being irritable and calm; sometimes he says he will take his medications when he goes home other times he says he is doing fine and does not need it. It is not clear if patient still hears auditory hallucinations or if they have resolved as his reporting is inconsistent. It remains necessary for patient to go to a long-term facility for continued medication management and to have a longer time without symptoms. 04/04 (not 04/05) patient overall more calm and excepting of being on the unit, waiting for further stabilization and outpatient services to be set up before returning to the community; does not want to go to [facility].? Patient's improvement is despite the fact that both Haldol and Depakote have been discontinued; off these medications he is less sedated and up earlier in the day.? Patient denies auditory hallucinations.? Intermittently he can accept that AH has resolved due to medication, but he does not have insight into presence of psychiatric disorder and need for ongoing treatment even when feeling stable.? That said, it is not clear that increasing doses of Clozaril would resolve this impaired insight; his improved presentation and desire to avoid side effects gives pause to further titrating clozapine.? Will leave here for now and monitor.? The remains significant concern the patient would discontinue his medications on discharge and team continues to agree that he needs a prolonged experience of being symptom free to connect his ongoing need for medication. 04/09 no changes 04/12 remains stable; staff discussed and think that patient is likely close to maximum benefit from clozapine so will keep at current dose for now. Concern is that any increase could cause side effects which would be a barrier to patient continue medication on discharge 04/16 Patient remains is stable Tried to discuss sexual side effects of medication but patient was very vague and it is on conclusive; other staff reports that this topic is come up in the past make it less likely related to clozapine 04/19 no changes 04/20 successful meeting today with ACCS; remains calm and pleasant 04/23 remains stable and likely at baseline; will discontinue Cogentin since patient has no history of EPS and is now only on clozapine which has low EPS risk; fiction and nonfiction prose writer discussed with nursing who will monitor for symptoms. 04/24 patient got dystonia with stiff neck which was relieved with Cogentin. Clinical Physician Assistant will reorder as scheduled; good meeting with [facility] worker 04/27 No changes to treatment team, pt denies dystonia 04/28: no change - continue treatment plan 04/29 no change - continue treatment plan MED Trials: Seroquel Palliperidone Risperdal Haldol I spent __15____ minutes with the patient and/or on the patient floor today, greater than?50% of which was spent counseling/coordinating care. Reason for contiued inpatient stay Substantial Risk for: harm to self, inability to function and rapid decompensation
[2022-04-29 11:15] VITALS: BP 120/84; PULSE 100; RESP 18; TEMP 36.6; O2SAT 97
[2022-04-29] MEDS: cloZAPine 100 MG TABLET 350 MG PO (16:10)
[2022-04-29] MEDS: Benztropine Mesylate 0.5 MG TABLET PO (22:42)
--- NOTE | 2022-04-30 10:58 | P.PNPSI_ITS ---
Subjective Subjective Date of Service: 04/30/22 Reason For Visit: schizoaffective Interim History: Stable, pleasant, no complaints. Asks about next meeting which is tomorrow Mental Status Exam Mental Status Exam Narrative: Pt is alert and oriented; behavior, calm and cooperative; dressed in casual attire, wearing casual cloths, adequately groomed and with adequate hygiene; mood pleasant; affect congruent; eye contact adequate, appropriate; Speech is normal rate, normal volume; normal prosody; no intermittent psychomotor agitation; thought process goal oriented; Thought content is on discharge; he is less perseverative on paranoid delusional worries about being persecuted by his neighbors; Denies SI/HI. denies AH;? Patients insight and judgment are impaired but have improved and possibly at baseline. Diagnostics Vital Signs (24Hr): Vital Signs - 24 hr 04/29/22 11:15 Temperature 97.8 F Pulse Rate 100 Respiratory Rate 18 Blood Pressure 120/84 Pulse Oximetry 97 Oxygen Delivery Method Room Air BMI result Body Mass Index 36.1 Labs Results: 03/01/22 18:29 Medications Medications Current Medications Acetaminophen (Acetaminophen 325 Mg Tablet) 650 mg PO Q6H PRN PRN Reason: Headache/Pain Mild Scale (1-3) Last Admin: 03/03/22 22:41 Dose: 650 mg Al Hydroxide/Mg Hydroxide (Magnesium Hydrox/Alum Hydrox 30 Ml Oral.Susp) 30 ml PO Q6H PRN PRN Reason: Heartburn/Nausea Albuterol Sulfate (Albuterol Sulfate 90 Mcg 8 Gm Inhaler) 2 puff INHALE RQ4H PRN PRN Reason: Shortness Of Breath Benztropine Mesylate (Benztropine Mesylate 0.5 Mg Tablet) 0.5 mg PO BEDTIME [facility] Last Admin: 04/29/22 22:42 Dose: 0.5 mg Clonidine HCl (Clonidine Hcl 0.1 Mg Tablet) 0.1 mg PO TID PRN; Protocol PRN Reason: hyperarousal Last Admin: 02/28/22 21:47 Dose: 0.1 mg Clozapine (Clozapine 100 Mg Tablet) 350 mg PO DAILY@1700 [facility] Last Admin: 04/29/22 16:10 Dose: 350 mg Diphenhydramine HCl (Diphenhydramine Hcl 25 Mg Tablet) 50 mg PO Q4H PRN PRN Reason: agitation Haloperidol (Haloperidol 5 Mg Tablet) 10 mg PO Q4H PRN PRN Reason: agitation Last Admin: 04/03/22 22:17 Dose: 10 mg Haloperidol Lactate (Haloperidol Lactate 5 Mg/Ml Vial) 10 mg IM DAILY PRN PRN Reason: if refuses PO Hydroxyzine HCl (Hydroxyzine Hcl 25 Mg Tablet) 25 mg PO Q6H PRN PRN Reason: Anxiety Last Admin: 04/27/22 21:11 Dose: 25 mg Lidocaine HCl (Lidocaine 4 % Cream Kit) 1 appl TOPICAL DAILY PRN; Protocol PRN Reason: prophylactiinjection site pain Magnesium Hydroxide (Milk Of Magnesia 30 Ml Oral.Susp) 30 ml PO DAILY PRN PRN Reason: Constipation Trazodone HCl (Trazodone Hcl 50 Mg Tablet) 50 mg PO BEDTIME PRN PRN Reason: Insomnia Allergies Allergies Allergy/AdvReac Type Severity Reaction Status Date / Time No Known Allergies Allergy Verified 02/19/22 03:39 [No Known Allergies*] Assessment & Plan Assessment & Plan (1) Schizophrenia, paranoid, chronic with acute exacerbation: Status: Acute Code(s): F20.0 - Paranoid schizophrenia Plan HPI: Nura is a 26 y.o. male who carries a dx of paranoid schizophrenia. Hx of , has fixed delusion of believing neighbors are talking about him. Has DMH and ACCS services through [facility]. No Catarino's order. Hx of med non-adherence upon discharge.? Patient has been repeatedly coming to the emergency room asking for help with auditory hallucinations Formulation: dx Schizophrenia, paranoid type Supervisor Spring Up discussed case with colleagues who have worked with patient in the past and also with staff on the unit for current admission. He has a hx of multiple inpatient admissions, including 1 about a month ago with very similar presentation, refusing to take meds, asking for discharge and deemed safe to return to the community. He has been re-presenting to [facility] after being discharged with the same presentation, not dangerous, but asking for help and then refusing treatment wanting discharge. He continues to have auditory hallucinations about his neighbor.?Initially, he has not expressed any delusional concerns that his neighbor is going to hurt him, just that his neighbors talking about him and so considered discharge.?However, Patient soon expressed concerns that his neighbors are plotting to harm him and that he is prepared to harm them back if he needs to defend himself.? As patient has presented several times to the emergency room in between admissions he is demonstrating that he is struggling to function in the community.? He has an extensive history of medication noncompliance. He has chronic paranoid delusions and auditory hallucinations that his neighbors are going to hurt him which intermittently expand to thoughts about preparing to defend himself.? Will continue treatment however, given his long hx of refractory psychosis, no insight and poor adherence with medication, team agrees that patient needs a more long-term admission to stabilize to the point where he could successfully live in the community.? During this admission, patient has significantly improved on clozapine.? He remains so without Haldol and Depakote which have both been discontinued.? He is pleasant and friendly.? Auditory hallucinations are either absent or minimal.? He remains without insight and worries that the voices of his neighbor will return once he goes back home, not understanding that these are auditory hallucinations associated with a psychiatric illness and to that and he will likely continually struggle with medication adherence; thus patient's stability in the community will directly correlate with the effectiveness of outpatient services.? Patient has complained of sexual side effects from clozapine however it is unclear to what extent as patient is a very limited historian; also this topic is come up during past admissions on other medications and it is not clear if it is medication related. PLAN: Section 8b Patient Civil Committed and substituted judgment for medications ordered. Dispostion: Once patient has ACCS services fully established will discharge home; otherwise without extensive community supportive services, patient will quickly decompensate Medication plan:? Trial of clozapine; overlap Haldol/Depak (minimally helpful) for now; goal to see if clozapine can be effective alone Clozapine? 325mg at DINNER time to mitigate daytime tiredness (to help with adherence; was split dosing) CANNOT REFUSE; COURT ORDERED; GIVE HALDOL 5MG IF REFUSES -patient has improved significantly so will leave at this dose for now so as to avoid risk of side-effects ANC 3.4 on 04/20/22 ANC weekly RESTART Benztropine Mesylate (Benztropine Mesylate 0.5 Mg Tablet)? 0.5 mg PO qHS; patient developed dystonic reaction when discontinued Continue Clonidine HCl (Clonidine Hcl 0.1 Mg Tablet)? 0.1 mg PO TID PRN Reason: hyperarousal Continue Trazodone HCl? 50 mg PO BEDTIME PRN Insomnia Continue Hydroxyzine HCl (Hydroxyzine Hcl 25 Mg Tablet)? 25 mg PO Q6H PRN Anxiety DISCONTINUED Divalproex ER 1000 mg PO QHS on 03/26; patient has been refusing it and since goal is to see if monotherapy with clozapine can work, will just discontinue it for now; patient does not have history of bipolar disorder or manic episodes and this medication was used with only limited success for behavioral issues. DISCONTINUED Haloperidol (was 10 mg BID; patient refuses; at this point might as well see if clozapine by itself can be effective as Haldol has only ever Seemed to be minimally helpful and it's not worth forcing an IM) DISCONTINUED Quetiapine qhs; pt does not want for day to day events (see below)... HOSPITAL COURSE 02/24: Ct treatment plan 02/25: Ct Rx plan. May need committment. Lacks insight and is non compliant with meds. 02/26: Pt adamantly does not want to increase haldol or depakote. Will start seroquel 300 mg QHS for sx of psychotic depression, has not had adequate trial on seroquel. May help with poor sleep. 02/27: Pt has been refusing all meds; AH complaints but denies any SI/HI and his demonstrate safe behaviors on the unit 02/28 retracted 3 day, remains preoccupied with auditory hallucinations of his neighbors and delusional thoughts that his neighbors are persecuting him agrees to stay for treatment; considering clozapine 03/01 Angry and demanding discharge and 3 day notice placed; difficult to engage; no insight.? Refused morning dose of Haldol.? At said he is taking clozapine before and resisted reality testing; however said will still consider 03/02 patient willingly taking clozapine 03/06 patient intermittently takes clozapine; he is disorganized in behavior and thought, intermittently yelling and accusing staff and posturing and threatening staff.? Patient struggles to understand that his rent is paid for; while talking about a specific topic, patient will intermittently respond with a disorganized irrelevant answer.? Patient has failed monotherapy with Seroquel, Palliperidone, Risperdal and Haldol.? Will continue to titrate clozapine as patient is willing to see if this can be effective.? Patient has a 3 day notice due today 03/06/2022.? Team finds that patient is unstable and not safe to return the community as he has ongoing auditory hallucinations and paranoid delusional thoughts that about his neighbors plotting to hurt him.? Will file for Civil commitment; also discussed is that patient may need long-term admission to better establish stability. 03/08 patient disorganized; refused labs making it difficult to titrate clozapine.? Will continue to trying get patient to allow labs 03/09 remains disorganized, sometimes adhering to treatment other times refusing it without any clear pattern.? Patient is not amenable to logical explanation and his engagement in tx is unpredictable making dosing with Clozapine (and depakote) difficult as it requires periodic blood work and controlled titration.? However, Will continue with attempts at clozapine since this seems to be best option for patient to become stabilized 03/10 remains disorganized; won't engage; continues to have AH 03/13 CIVIL COMMITMENT AND SUBSTITUTED JUDGMENT ORDERED 03/16 continue current tx plan 03/19 Patient has moments of insight but quickly descends back into struggles with paranoia, disorganized thinking, thinking AH are real. Patient struggles with taking medication are difficult to predict.?Today he said I feel good, why would it take medication? despite that during the same conversation he also said that he continues to hear his neighbors say mad crap And if they come after him something will happen. The Hope is that clozapine as a monotherapy will be sufficient; proposal manager writer discussed case with patient's past inpatient provider and there is no history of bipolar/manic episodes and Depakote only used for impulsivity/anger.? Thus, will lower Depakote to a 1000 mg q.h.s. With clozapine, it may be easier for patient to tolerate single dosing so will see if moving the entire dose to bedtime helps with adherence rather than being asked to take medications twice a day.? That said, sometimes patient wakes up in the morning and demands his morning medications so it is difficult to know The best way to mitigate his his anxiety around this issue. 03/26 patient has been refusing Depakote; since he does not have history of bipolar disorder manic episodes and this medication has had limited effect, will just discontinue for now and move forward with seen of clozapine can be effective on its own; will also DC Haldol Since patient refuses; at this point might as well see if clozapine by itself can be effective as Haldol has only ever Seemed to be minimally helpful. 03/27 denies auditory hallucinations but remains without any insight and saying that he will not take medications when he goes home because he is good. 03/28 Patient vacillates between being irritable and calm; sometimes he says he will take his medications when he goes home other times he says he is doing fine and does not need it. It is not clear if patient still hears auditory hallucinations or if they have resolved as his reporting is inconsistent. It remains necessary for patient to go to a long-term facility for continued medication management and to have a longer time without symptoms. 04/04 (not 04/05) patient overall more calm and excepting of being on the unit, waiting for further stabilization and outpatient services to be set up before returning to the community; does not want to go to [facility].? Patient's improvement is despite the fact that both Haldol and Depakote have been discontinued; off these medications he is less sedated and up earlier in the day.? Patient denies auditory hallucinations.? Intermittently he can accept that AH has resolved due to medication, but he does not have insight into presence of psychiatric disorder and need for ongoing treatment even when feeling stable.? That said, it is not clear that increasing doses of Clozaril would resolve this impaired insight; his improved presentation and desire to avoid side effects gives pause to further titrating clozapine.? Will leave here for now and monitor.? The remains significant concern the patient would discontinue his medications on discharge and team continues to agree that he needs a prolonged experience of being symptom free to connect his ongoing need for medication. 04/09 no changes 04/12 remains stable; staff discussed and think that patient is likely close to maximum benefit from clozapine so will keep at current dose for now. Concern is that any increase could cause side effects which would be a barrier to patient continue medication on discharge 04/16 Patient remains is stable Tried to discuss sexual side effects of medication but patient was very vague and it is on conclusive; other staff reports that this topic is come up in the past make it less likely related to clozapine 04/19 no changes 04/20 successful meeting today with ACCS; remains calm and pleasant 04/23 remains stable and likely at baseline; will discontinue Cogentin since patient has no history of EPS and is now only on clozapine which has low EPS risk; proposal manager writer discussed with nursing who will monitor for symptoms. 04/24 patient got dystonia with stiff neck which was relieved with Cogentin. Supervisor Spring Up will reorder as scheduled; good meeting with [facility] worker 04/27 No changes to treatment team, pt denies dystonia 04/28: no change - continue treatment plan 04/29 no change - continue treatment plan MED Trials: Seroquel Palliperidone Risperdal Haldol I spent minutes with the patient and/or on the patient floor today, greater than?50% of which was spent counseling/coordinating care. Patient educated on: therapeutic strategies Informed Consent: understands Reason for contiued inpatient stay Substantial Risk for: inability to function
[2022-04-30] MEDS: cloZAPine 100 MG TABLET 350 MG PO (16:16)
[2022-04-30] MEDS: Benztropine Mesylate 0.5 MG TABLET PO (22:16)
[2022-05-01] MEDS: cloZAPine 100 MG TABLET 350 MG PO (15:57)
[2022-05-01 16:00] VITALS: BP 124/86; PULSE 70; RESP 16; TEMP 36.1; O2SAT 94
--- NOTE | 2022-05-01 17:24 | P.PNPSI_ITS ---
Subjective Subjective Date of Service: 05/01/22 Reason For Visit: schizoaffective Interim History: Remains stable, no changes. Was a little frustrated that [facility] worker was late however met with worker and is excited about prospect of discharge home. Mental Status Exam Mental Status Exam Narrative: Pt is alert and oriented; behavior, calm and cooperative; dressed in casual attire, wearing casual cloths, adequately groomed and with adequate hygiene; mood pleasant; affect congruent; eye contact adequate, appropriate; Speech is normal rate, normal volume; normal prosody; no intermittent psychomotor agitation; thought process goal oriented; Thought content is on discharge; he is less perseverative on paranoid delusional worries about being persecuted by his neighbors; Denies SI/HI. denies AH;? Patients insight and judgment are impaired but have improved and possibly at baseline. Diagnostics Vital Signs (24Hr): Vital Signs - 24 hr 05/01/22 16:00 Temperature 97 F Pulse Rate 70 Respiratory Rate 16 Blood Pressure 124/86 Pulse Oximetry 94 Oxygen Delivery Method Room Air BMI result Body Mass Index 36.1 Labs Results: 03/01/22 18:29 Medications Medications Current Medications Acetaminophen (Acetaminophen 325 Mg Tablet) 650 mg PO Q6H PRN PRN Reason: Headache/Pain Mild Scale (1-3) Last Admin: 03/03/22 22:41 Dose: 650 mg Al Hydroxide/Mg Hydroxide (Magnesium Hydrox/Alum Hydrox 30 Ml Oral.Susp) 30 ml PO Q6H PRN PRN Reason: Heartburn/Nausea Albuterol Sulfate (Albuterol Sulfate 90 Mcg 8 Gm Inhaler) 2 puff INHALE RQ4H PRN PRN Reason: Shortness Of Breath Benztropine Mesylate (Benztropine Mesylate 0.5 Mg Tablet) 0.5 mg PO BEDTIME JEO Last Admin: 04/30/22 22:16 Dose: 0.5 mg Clonidine HCl (Clonidine Hcl 0.1 Mg Tablet) 0.1 mg PO TID PRN; Protocol PRN Reason: hyperarousal Last Admin: 02/28/22 21:47 Dose: 0.1 mg Clozapine (Clozapine 100 Mg Tablet) 350 mg PO DAILY@1700 JOE Last Admin: 05/01/22 15:57 Dose: 350 mg Diphenhydramine HCl (Diphenhydramine Hcl 25 Mg Tablet) 50 mg PO Q4H PRN PRN Reason: agitation Haloperidol (Haloperidol 5 Mg Tablet) 10 mg PO Q4H PRN PRN Reason: agitation Last Admin: 04/03/22 22:17 Dose: 10 mg Haloperidol Lactate (Haloperidol Lactate 5 Mg/Ml Vial) 10 mg IM DAILY PRN PRN Reason: if refuses PO Hydroxyzine HCl (Hydroxyzine Hcl 25 Mg Tablet) 25 mg PO Q6H PRN PRN Reason: Anxiety Last Admin: 04/27/22 21:11 Dose: 25 mg Lidocaine HCl (Lidocaine 4 % Cream Kit) 1 appl TOPICAL DAILY PRN; Protocol PRN Reason: prophylactiinjection site pain Magnesium Hydroxide (Milk Of Magnesia 30 Ml Oral.Susp) 30 ml PO DAILY PRN PRN Reason: Constipation Trazodone HCl (Trazodone Hcl 50 Mg Tablet) 50 mg PO BEDTIME PRN PRN Reason: Insomnia Allergies Allergies Allergy/AdvReac Type Severity Reaction Status Date / Time No Known Allergies Allergy Verified 02/19/22 03:39 [No Known Allergies*] Assessment & Plan Assessment & Plan (1) Schizophrenia, paranoid, chronic with acute exacerbation: Status: Acute Code(s): F20.0 - Paranoid schizophrenia Plan HPI: Nura is a 26 y.o. male who carries a dx of paranoid schizophrenia. Hx of , has fixed delusion of believing neighbors are talking about him. Has DMH and ACCS services through [facility] No Catarino's order. Hx of med non-adherence upon discharge.? Patient has been repeatedly coming to the emergency room asking for help with auditory hallucinations Formulation: dx Schizophrenia, paranoid type [employer] discussed case with colleagues who have worked with patient in the past and also with staff on the unit for current admission. He has a hx of multiple inpatient admissions, including 1 about a month ago with very similar presentation, refusing to take meds, asking for discharge and deemed safe to return to the community. He has been re-presenting to [facility] after being discharged with the same presentation, not dangerous, but asking for help and then refusing treatment wanting discharge. He continues to have auditory hallucinations about his neighbor.?Initially, he has not expressed any delusional concerns that his neighbor is going to hurt him, just that his nei ghbors talking about him and so considered discharge.?However, Patient soon expressed concerns that his neighbors are plotting to harm him and that he is prepared to harm them back if he needs to defend himself.? As patient has presented several times to the emergency room in between admissions he is demonstrating that he is struggling to function in the community.? He has an extensive history of medication noncompliance. He has chronic paranoid delusions and auditory hallucinations that his neighbors are going to hurt him which intermittently expand to thoughts about preparing to defend himself.? Will continue treatment however, given his long hx of refractory psychosis, no insight and poor adherence with medication, team agrees that patient needs a more long-term admission to stabilize to the point where he could successfully live in the community.? During this admission, patient has significantly improved on clozapine.? He remains so without Haldol and Depakote which have both been discontinued.? He is pleasant and friendly.? Auditory hallucinations are either absent or minimal.? He remains without insight and worries that the voices of his neighbor will return once he goes back home, not understanding that these are auditory hallucinations associated with a psychiatric illness and to that and he will likely continually struggle with medication adherence; thus patient's stability in the community will directly correlate with the effectiveness of outpatient services.? Patient has complained of sexual side effects from clozapine however it is unclear to what extent as patient is a very limited historian; also this topic is come up during past admissions on other medications and it is not clear if it is medication related. PLAN: Section 8b Patient Civil Committed and substituted judgment for medications ordered. Dispostion: Once patient has ACCS services fully established will discharge home; otherwise without extensive community supportive services, patient will quickly decompensate Medication plan:? Trial of clozapine; overlap Haldol/Depak (minimally helpful) for now; goal to see if clozapine can be effective alone Clozapine? 325mg at DINNER time to mitigate daytime tiredness (to help with adherence; was split dosing) CANNOT REFUSE; COURT ORDERED; GIVE HALDOL 5MG IF REFUSES -patient has improved significantly so will leave at this dose for now so as to avoid risk of side-effects ANC 2.6 on 04/27/22 ANC weekly RESTART Benztropine Mesylate (Benztropine Mesylate 0.5 Mg Tablet)? 0.5 mg PO qHS; patient developed dystonic reaction when discontinued Continue Clonidine HCl (Clonidine Hcl 0.1 Mg Tablet)? 0.1 mg PO TID PRN Reason: hyperarousal Continue Trazodone HCl? 50 mg PO BEDTIME PRN Insomnia Continue Hydroxyzine HCl (Hydroxyzine Hcl 25 Mg Tablet)? 25 mg PO Q6H PRN Anxiety DISCONTINUED Divalproex ER 1000 mg PO QHS on 03/26; patient has been refusing it and since goal is to see if monotherapy with clozapine can work, will just discontinue it for now; patient does not have history of bipolar disorder or manic episodes and this medication was used with only limited success for behavioral issues. DISCONTINUED Haloperidol (was 10 mg BID; patient refuses; at this point might as well see if clozapine by itself can be effective as Haldol has only ever Seemed to be minimally helpful and it's not worth forcing an IM) DISCONTINUED Quetiapine qhs; pt does not want for day to day events (see below)... HOSPITAL COURSE 02/24: Ct treatment plan 02/25: Ct Rx plan. May need committment. Lacks insight and is non compliant with meds. 02/26: Pt adamantly does not want to increase haldol or depakote. Will start seroquel 300 mg QHS for sx of psychotic depression, has not had adequate trial on seroquel. May help with poor sleep. 02/27: Pt has been refusing all meds; AH complaints but denies any SI/HI and his demonstrate safe behaviors on the unit 02/28 retracted 3 day, remains preoccupied with auditory hallucinations of his neighbors and delusional thoughts that his neighbors are persecuting him agrees to stay for treatment; considering clozapine 03/01 Angry and demanding discharge and 3 day notice placed; difficult to engage; no insight.? Refused morning dose of Haldol.? At said he is taking clozapine before and resisted reality testing; however said will still consider 03/02 patient willingly taking clozapine 03/06 patient intermittently takes clozapine; he is disorganized in behavior and thought, intermittently yelling and accusing staff and posturing and threatening staff.? Patient struggles to understand that his rent is paid for; while talking about a specific topic, patient will intermittently respond with a disorganized irrelevant answer.? Patient has failed monotherapy with Seroquel, Palliperidone, Risperdal and Haldol.? Will continue to titrate clozapine as patient is willing to see if this can be effective.? Patient has a 3 day notice due today 03/06/2022.? Team finds that patient is unstable and not safe to return the community as he has ongoing auditory hallucinations and paranoid delusional tho ughts that about his neighbors plotting to hurt him.? Will file for Civil commitment; also discussed is that patient may need long-term admission to better establish stability. 03/08 patient disorganized; refused labs making it difficult to titrate clozapine.? Will continue to trying get patient to allow labs 03/09 remains disorganized, sometimes adhering to treatment other times refusing it without any clear pattern.? Patient is not amenable to logical explanation and his engagement in tx is unpredictable making dosing with Clozapine (and depakote) difficult as it requires periodic blood work and controlled titration.? However, Will continue with attempts at clozapine since this seems to be best option for patient to become stabilized 03/10 remains disorganized; won't engage; continues to have AH 03/13 CIVIL COMMITMENT AND SUBSTITUTED JUDGMENT ORDERED 03/16 continue current tx plan 03/19 Patient has moments of insight but quickly descends back into struggles with paranoia, disorganized thinking, thinking AH are real. Patient struggles with taking medication are difficult to predict.?Today he said I feel good, why would it take medication? despite that during the same conversation he also said that he continues to hear his neighbors say mad crap And if they come after him something will happen. The Hope is that clozapine as a monotherapy will be sufficient; automotive service writer discussed case with patient's past inpatient provider and there is no history of bipolar/manic episodes and Depakote only used for impulsivity/anger.? Thus, will lower Depakote to a 1000 mg q.h.s. With clozapine, it may be easier for patient to tolerate single dosing so will see if moving the entire dose to bedtime helps with adherence rather than being asked to take medications twice a day.? That said, sometimes patient wakes up in the morning and demands his morning medications so it is difficult to know The best way to mitigate his his anxiety around this issue. 03/26 patient has been refusing Depakote; since he does not have history of bipolar disorder manic episodes and this medication has had limited effect, will just discontinue for now and move forward with seen of clozapine can be effective on its own; will also DC Haldol Since patient refuses; at this point might as well see if clozapine by itself can be effective as Haldol has only ever Seemed to be minimally helpful. 03/27 denies auditory hallucinations but remains without any insight and saying that he will not take medications when he goes home because he is good. 03/28 Patient vacillates between being irritable and calm; sometimes he says he will take his medications when he goes home other times he says he is doing fine and does not need it. It is not clear if patient still hears auditory hallucinations or if they have resolved as his reporting is inconsistent. It remains necessary for patient to go to a long-term facility for continued medication management and to have a longer time without symptoms. 04/04 (not 04/05) patient overall more calm and excepting of being on the unit, waiting for further stabilization and outpatient services to be set up before returning to the community; does not want to go to [facility].? Patient's improvement is despite the fact that both Haldol and Depakote have been discontinued; off these medications he is less sedated and up earlier in the day.? Patient denies auditory hallucinations.? Intermittently he can accept that AH has resolved due to medication, but he does not have insight into presence of psychiatric disorder and need for ongoing treatment even when feeling stable.? That said, it is not clear that increasing doses of Clozaril would resolve this impaired insight; his improved presentation and desire to avoid side effects gives pause to further titrating clozapine.? Will leave here for now and monitor.? The remains significant concern the patient would discontinue his medications on discharge and team continues to agree that he needs a prolonged experience of being symptom free to connect his ongoing need for medication. 04/09 no changes 04/12 remains stable; staff discussed and think that patient is likely close to maximum benefit from clozapine so will keep at current dose for now. Concern is that any increase could cause side effects which would be a barrier to patient continue medication on discharge 04/16 Patient remains is stable Tried to discuss sexual side effects of medication but patient was very vague and it is on conclusive; other staff reports that this topic is come up in the past make it less likely related to clozapine 04/19 no changes 04/20 successful meeting today with ACCS; remains calm and pleasant 04/23 remains stable and likely at baseline; will discontinue Cogentin since patient has no history of EPS and is now only on clozapine which has low EPS risk; automotive service writer discussed with nursing who will monitor for symptoms. 04/24 patient got dystonia with stiff neck which was relieved with Cogentin. [employer] will reorder as scheduled; good meeting with [facility] worker 04/27 No changes to treatment team, pt denies dystonia 04/28: no change - continue treatment plan 04/29 no change - continue treatment plan MED Trials: Seroquel Palliperidone Risperdal Haldol I spent minutes with the patient and/or on the patient floor today, greater than?50% of which was spent counseling/coordinating care. Patient educated on: therapeutic strategies Informed Consent: understands Reason for contiued inpatient stay Substantial Risk for: inability to function
[2022-05-01] MEDS: Benztropine Mesylate 0.5 MG TABLET PO (21:10)
--- NOTE | 2022-05-02 10:24 | P.PNPSI_ITS ---
Subjective Subjective Date of Service: 05/02/22 Reason For Visit: schizoaffective Interim History: Patient polite and appropriate. He says I am leaving on the 5th right? and points to the calendar. He says I am doing good... No voices... No nothing and that he is fine. He said the meeting yesterday also went fine. Patient said that he is taking his medications regularly. High School Guidance Counselor agrees that patient is getting close to discharge and hopefully will be early next week. Mental Status Exam Mental Status Exam Narrative: Pt is alert and oriented; behavior, calm and cooperative; dressed in casual attire, wearing casual cloths, adequately groomed and with adequate hygiene; mood pleasant; affect congruent; eye contact adequate, appropriate; Speech is normal rate, normal volume; normal prosody; no intermittent psychomotor agitation; thought process goal oriented; Thought content is on discharge; he is less perseverative on paranoid delusional worries about being persecuted by his neighbors; Denies SI/HI. denies AH;? Patients insight and judgment are impaired but have improved and possibly at baseline. Diagnostics Vital Signs (24Hr): Vital Signs - 24 hr 05/01/22 16:00 Temperature 97 F Pulse Rate 70 Respiratory Rate 16 Blood Pressure 124/86 Pulse Oximetry 94 Oxygen Delivery Method Room Air BMI result Body Mass Index 36.1 Labs Results: 03/01/22 18:29 Medications Medications Current Medications Acetaminophen (Acetaminophen 325 Mg Tablet) 650 mg PO Q6H PRN PRN Reason: Headache/Pain Mild Scale (1-3) Last Admin: 03/03/22 22:41 Dose: 650 mg Al Hydroxide/Mg Hydroxide (Magnesium Hydrox/Alum Hydrox 30 Ml Oral.Susp) 30 ml PO Q6H PRN PRN Reason: Heartburn/Nausea Albuterol Sulfate (Albuterol Sulfate 90 Mcg 8 Gm Inhaler) 2 puff INHALE RQ4H PRN PRN Reason: Shortness Of Breath Benztropine Mesylate (Benztropine Mesylate 0.5 Mg Tablet) 0.5 mg PO BEDTIME JOE Last Admin: 05/01/22 21:10 Dose: 0.5 mg Clonidine HCl (Clonidine Hcl 0.1 Mg Tablet) 0.1 mg PO TID PRN; Protocol PRN Reason: hyperarousal Last Admin: 02/28/22 21:47 Dose: 0.1 mg Clozapine (Clozapine 100 Mg Tablet) 350 mg PO DAILY@1700 JOE Last Admin: 05/01/22 15:57 Dose: 350 mg Diphenhydramine HCl (Diphenhydramine Hcl 25 Mg Tablet) 50 mg PO Q4H PRN PRN Reason: agitation Haloperidol (Haloperidol 5 Mg Tablet) 10 mg PO Q4H PRN PRN Reason: agitation Last Admin: 04/03/22 22:17 Dose: 10 mg Haloperidol Lactate (Haloperidol Lactate 5 Mg/Ml Vial) 10 mg IM DAILY PRN PRN Reason: if refuses PO Hydroxyzine HCl (Hydroxyzine Hcl 25 Mg Tablet) 25 mg PO Q6H PRN PRN Reason: Anxiety Last Admin: 04/27/22 21:11 Dose: 25 mg Lidocaine HCl (Lidocaine 4 % Cream Kit) 1 appl TOPICAL DAILY PRN; Protocol PRN Reason: prophylactiinjection site pain Magnesium Hydroxide (Milk Of Magnesia 30 Ml Oral.Susp) 30 ml PO DAILY PRN PRN Reason: Constipation Trazodone HCl (Trazodone Hcl 50 Mg Tablet) 50 mg PO BEDTIME PRN PRN Reason: Insomnia Allergies Allergies Allergy/AdvReac Type Severity Reaction Status Date / Time No Known Allergies Allergy Verified 02/19/22 03:39 [No Known Allergies*] Assessment & Plan Assessment & Plan (1) Schizophrenia, paranoid, chronic with acute exacerbation: Status: Acute Code(s): F20.0 - Paranoid schizophrenia Plan HPI: Nura is a 26 y.o. male who carries a dx of paranoid schizophrenia. Hx of , has fixed delusion of believing neighbors are talking about him. Has DMH and ACCS services through [facility]. No Catarino's order. Hx of med non-adherence upon discharge.? Patient has been repeatedly coming to the emergency room asking for help with auditory hallucinations Formulation: dx Schizophrenia, paranoid type [employer] School Guidance Counselor discussed case with colleagues who have worked with patient in the past and also with staff on the unit for current admission. He has a hx of multiple inpatient admissions, including 1 about a month ago with very similar presentation, refusing to take meds, asking for discharge and deemed safe to return to the community. He has been re-presenting to [facility] afte r being discharged with the same presentation, not dangerous, but asking for help and then refusing treatment wanting discharge. He continues to have auditory hallucinations about his neighbor.?Initially, he has not expressed any delusional concerns that his neighbor is going to hurt him, just that his neighbors talking about him and so considered discharge.?However, Patient soon expressed concerns that his neighbors are plotting to harm him and that he is prepared to harm them back if he needs to defend himself.? As patient has presented several times to the emergency room in between admissions he is demonstrating that he is struggling to function in the community.? He has an extensive history of medication noncompliance. He has chronic paranoid delusions and auditory hallucinations that his neighbors are going to hurt him which intermittently expand to thoughts about preparing to defend himself.? Will continue treatment however, given his long hx of refractory psychosis, no insight and poor adherence with medication, team agrees that patient needs a more long-term admission to stabilize to the point where he could successfully live in the community.? During this admission, patient has significantly improved on clozapine.? He remains so without Haldol and Depakote which have both been discontinued.? He is pleasant and friendly.? Auditory hallucinations are either absent or minimal.? He remains without insight and worries that the voices of his neighbor will return once he goes back home, not understanding that these are auditory hallucinations associated with a psychiatric illness and to that and he will likely continually struggle with medication adherence; thus patient's stability in the community will directly correlate with the effectiveness of outpatient services.? Patient has complained of sexual side effects from clozapine however it is unclear to what extent as patient is a very limited historian; also this topic is come up during past admissions on other medications and it is not clear if it is medication related. PLAN: Section 8b Patient Civil Committed and substituted judgment for medications ordered. Dispostion: Once patient has ACCS services fully established will discharge home; otherwise without extensive community supportive services, patient will quickly decompensate Medication plan:? Trial of clozapine; overlap Haldol/Depak (minimally helpful) for now; goal to see if clozapine can be effective alone Clozapine? 325mg at DINNER time to mitigate daytime tiredness (to help with adherence; was split dosing) CANNOT REFUSE; COURT ORDERED; GIVE HALDOL 5MG IF REFUSES -patient has improved significantly so will leave at this dose for now so as to avoid risk of side-effects ANC 2.6 on 04/27/22 ANC weekly RESTART Benztropine Mesylate (Benztropine Mesylate 0.5 Mg Tablet)? 0.5 mg PO qHS; patient developed dystonic reaction when discontinued Continue Clonidine HCl (Clonidine Hcl 0.1 Mg Tablet)? 0.1 mg PO TID PRN Reason: hyperarousal Continue Trazodone HCl? 50 mg PO BEDTIME PRN Insomnia Continue Hydroxyzine HCl (Hydroxyzine Hcl 25 Mg Tablet)? 25 mg PO Q6H PRN Anxiety DISCONTINUED Divalproex ER 1000 mg PO QHS on 03/26; patient has been refusing it and since goal is to see if monotherapy with clozapine can work, will just discontinue it for now; patient does not have history of bipolar disorder or manic episodes and this medication was used with only limited success for behavioral issues. DISCONTINUED Haloperidol (was 10 mg BID; patient refuses; at this point might as well see if clozapine by itself can be effective as Haldol has only ever Seemed to be minimally helpful and it's not worth forcing an IM) DISCONTINUED Quetiapine qhs; pt does not want for day to day events (see below)... HOSPITAL COURSE 02/24: Ct treatment plan 02/25: Ct Rx plan. May need committment. Lacks insight and is non compliant with meds. 02/26: Pt adamantly does not want to increase haldol or depakote. Will start seroquel 300 mg QHS for sx of psychotic depression, has not had adequate trial on seroquel. May help with poor sleep. 02/27: Pt has been refusing all meds; AH complaints but denies any SI/HI and his demonstrate safe behaviors on the unit 02/28 retracted 3 day, remains preoccupied with auditory hallucinations of his neighbors and delusional thoughts that his neighbors are persecuting him agrees to stay for treatment; considering clozapine 03/01 Angry and demanding discharge and 3 day notice placed; difficult to engage; no insight.? Refused morning dose of Haldol.? At said he is taking clozapine before and resisted reality testing; however said will still consider 03/02 patient willingly taking clozapine 03/06 patient intermittently takes clozapine; he is disorganized in behavior and thought, intermittently yelling and accusing staff and posturing and threatening staff.? Patient struggles to understand that his rent is paid for; while talking about a specific topic, patient will intermittently respond with a disorganized irrelevant answer.? Patient has failed monotherapy with Seroquel, Palliperidone, Risperdal and Haldol.? Will continue to titrate clozapine as patient is willing to see if this can be effective.? Patient has a 3 day notice due today 03/06/2022.? Team finds that patient is unstable and not safe to return the community as he has ongoing auditory hallucinations and paranoid delusional thoughts that about his neighbors plotting to hurt him.? Will file for Civil commitment; also discussed is that patient may need long-term admission to better establish stability. 03/08 patient disorganized; refused labs making it difficult to titrate clozapine.? Will continue to trying get patient to allow labs 03/09 remains disorganized, sometimes adhering to treatment other times refusing it without any clear pattern.? Patient is not amenable to logical explanation an d his engagement in tx is unpredictable making dosing with Clozapine (and depakote) difficult as it requires periodic blood work and controlled titration.? However, Will continue with attempts at clozapine since this seems to be best option for patient to become stabilized 03/10 remains disorganized; won't engage; continues to have AH 03/13 CIVIL COMMITMENT AND SUBSTITUTED JUDGMENT ORDERED 03/16 continue current tx plan 03/19 Patient has moments of insight but quickly descends back into struggles wit h paranoia, disorganized thinking, thinking AH are real. Patient struggles with taking medication are difficult to predict.?Today he said I feel good, why would it take medication? despite that during the same conversation he also said that he continues to hear his neighbors say mad crap And if they come after him something will happen. The Hope is that clozapine as a monotherapy will be sufficient; magazine writer discussed case with patient's past inpatient provider and there is no history of bipolar/manic episodes and Depakote only used for impulsivity/anger.? Thus, will lower Depakote to a 1000 mg q.h.s. With clozapine, it may be easier for patient to tolerate single dosing so will see if moving the entire dose to bedtime helps with adherence rather than being asked to take medications twice a day.? That said, sometimes patient wakes up in the morning and demands his morning medications so it is difficult to know The best way to mitigate his his anxiety around this issue. 03/26 patient has been refusing Depakote; since he does not have history of bipolar disorder manic episodes and this medication has had limited effect, will just discontinue for now and move forward with seen of clozapine can be effective on its own; will also DC Haldol Since patient refuses; at this point might as well see if clozapine by itself can be effective as Haldol has only ever Seemed to be minimally helpful. 03/27 denies auditory hallucinations but remains without any insight and saying that he will not take medications when he goes home because he is good. 03/28 Patient vacillates between being irritable and calm; sometimes he says he will take his medications when he goes home other times he says he is doing fine and does not need it. It is not clear if patient still hears auditory halluci nations or if they have resolved as his reporting is inconsistent. It remains necessary for patient to go to a long-term facility for continued medication management and to have a longer time without symptoms. 04/04 (not 04/05) patient overall more calm and excepting of being on the unit, waiting for further stabilization and outpatient services to be set up before returning to the community; does not want to go to [facility].? Patient's improvement is despite the fact that both Haldol and Depakote have been discontinued; off these medications he is less sedated and up earlier in the day.? Patient denies auditory hallucinations.? Intermittently he can accept that AH has resolved due to medication, but he does not have insight into presence of psychiatric disorder and need for ongoing treatment even when feeling stable.? That said, it is not clear that increasing doses of Clozaril would resolve this impaired insight; his improved presentation and desire to avoid side effects gives pause to further titrating clozapine.? Will leave here for now and monitor.? The remains significant concern the patient would discontinue his medications on discharge and team continues to agree that he needs a prolonged experience of being symptom free to connect his ongoing need for medication. 04/09 no changes 04/12 remains stable; staff discussed and think that patient is likely close to maximum benefit from clozapine so will keep at current dose for now. Concern is that any increase could cause side effects which would be a barrier to patient continue medication on discharge 04/16 Patient remains is stable Tried to discuss sexual side effects of medication but patient was very vague and it is on conclusive; other staff reports that this topic is come up in the past make it less likely related to clozapine 04/19 no changes 04/20 successful meeting today with ACCS; remains calm and pleasant 04/23 remains stable and likely at baseline; will discontinue Cogentin since patient has no history of EPS and is now only on clozapine which has low EPS risk; magazine writer discussed with nursing who will monitor for symptoms. 04/24 patient got dystonia with stiff neck which was relieved with Cogentin. High School Guidance Counselor will reorder as scheduled; good meeting with [facility] worker 04/27 No changes to treatment team, pt denies dystonia 04/28: no change - continue treatment plan 04/29 no change - continue treatment plan 05/02 remains stable. Waiting to complete wraparound services so the patient can be stable in the community. Will then discharge. MED Trials: Seroquel Palliperidone Risperdal Haldol I spent minutes with the patient and/or on the patient floor today, greater than?50% of which was spent counseling/coordinating care. Patient educated on: therapeutic strategies Informed Consent: understands Reason for contiued inpatient stay Substantial Risk for: inability to function
[2022-05-02 11:45] VITALS: RESP 18; TEMP 36.7
[2022-05-02] MEDS: cloZAPine 100 MG TABLET 350 MG PO (16:36)
--- NOTE | 2022-05-03 10:44 | P.PNPSI_ITS ---
Subjective Subjective Date of Service: 05/03/22 Reason For Visit: schizoaffective Interim History: Stable; no changes Mental Status Exam Mental Status Exam Narrative: Pt is alert and oriented; behavior, calm and cooperative; dressed in casual attire, wearing casual cloths, adequately groomed and with adequate hygiene; mood pleasant; affect congruent; eye contact adequate, appropriate; Speech is normal rate, normal volume; normal prosody; no intermittent psychomotor agitation; thought process goal oriented; Thought content is on discharge; he is less perseverative on paranoid delusional worries about being persecuted by his neighbors; Denies SI/HI. denies AH;? Patients insight and judgment are impaired but have improved and possibly at baseline. Diagnostics Vital Signs (24Hr): Vital Signs - 24 hr 05/02/22 11:45 Temperature 98.0 F Respiratory Rate 18 BMI result Body Mass Index 36.1 Labs Results: 05/04/22 12:16 Medications Medications Current Medications Acetaminophen (Acetaminophen 325 Mg Tablet) 650 mg PO Q6H PRN PRN Reason: Headache/Pain Mild Scale (1-3) Last Admin: 03/03/22 22:41 Dose: 650 mg Al Hydroxide/Mg Hydroxide (Magnesium Hydrox/Alum Hydrox 30 Ml Oral.Susp) 30 ml PO Q6H PRN PRN Reason: Heartburn/Nausea Albuterol Sulfate (Albuterol Sulfate 90 Mcg 8 Gm Inhaler) 2 puff INHALE RQ4H PRN PRN Reason: Shortness Of Breath Benztropine Mesylate (Benztropine Mesylate 0.5 Mg Tablet) 0.5 mg PO BEDTIME [facility] Last Admin: 05/02/22 22:32 Dose: Not Given Clonidine HCl (Clonidine Hcl 0.1 Mg Tablet) 0.1 mg PO TID PRN; Protocol PRN Reason: hyperarousal Last Admin: 02/28/22 21:47 Dose: 0.1 mg Clozapine (Clozapine 100 Mg Tablet) 350 mg PO DAILY@1700 [facility] Last Admin: 05/02/22 16:36 Dose: 350 mg Diphenhydramine HCl (Diphenhydramine Hcl 25 Mg Tablet) 50 mg PO Q4H PRN PRN Reason: agitation Haloperidol (Haloperidol 5 Mg Tablet) 10 mg PO Q4H PRN PRN Reason: agitation Last Admin: 04/03/22 22:17 Dose: 10 mg Haloperidol Lactate (Haloperidol Lactate 5 Mg/Ml Vial) 10 mg IM DAILY PRN PRN Reason: if refuses PO Hydroxyzine HCl (Hydroxyzine Hcl 25 Mg Tablet) 25 mg PO Q6H PRN PRN Reason: Anxiety Last Admin: 04/27/22 21:11 Dose: 25 mg Lidocaine HCl (Lidocaine 4 % Cream Kit) 1 appl TOPICAL DAILY PRN; Protocol PRN Reason: prophylactiinjection site pain Magnesium Hydroxide (Milk Of Magnesia 30 Ml Oral.Susp) 30 ml PO DAILY PRN PRN Reason: Constipation Trazodone HCl (Trazodone Hcl 50 Mg Tablet) 50 mg PO BEDTIME PRN PRN Reason: Insomnia Allergies Allergies Allergy/AdvReac Type Severity Reaction Status Date / Time No Known Allergies Allergy Verified 02/19/22 03:39 [No Known Allergies*] Assessment & Plan Assessment & Plan (1) Schizophrenia, paranoid, chronic with acute exacerbation: Status: Acute Code(s): F20.0 - Paranoid schizophrenia Plan HPI: Nura is a 26 y.o. male who carries a dx of paranoid schizophrenia. Hx of , has fixed delusion of believing neighbors are talking about him. Has DMH and ACCS services through [facility]. No Catarino's order. Hx of med non-adherence upon discharge.? 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 He has a hx of multiple inpatient admissions, including 1 about a month ago with very similar presentation, refusing to take meds, asking for discharge and deemed safe to return to the community. He has been re-presenting to [facility] after being discharged with the same presentation, not dangerous, but asking for help and then refusing treatment wanting discharge. He continues to have aud itory hallucinations about his neighbor.?Initially, he has not expressed any delusional concerns that his neighbor is going to hurt him, just that his neighbors talking about him and so considered discharge.?However, Patient soon expressed concerns that his neighbors are plotting to harm him and that he is prepared to harm them back if he needs to defend himself.? As patient has presented several times to the emergency room in between admissions he is demonstrating that he is struggling to function in the community.? He has an extensive history of medication noncompliance. He has chronic paranoid delusions and auditory hallucinations that his neighbors are going to hurt him which intermittently expand to thoughts about preparing to defend himself.? Will continue treatment however, given his long hx of refractory psychosis, no insight and poor adherence with medication, team agrees that patient needs a more long-term admission to stabilize to the point where he could successfully live in the community.? During this admission, patient has significantly improved on clozapine.? He remains so without Haldol and Depakote which have both been discontinued.? He is pleasant and friendly.? Auditory hallucinations are either absent or minimal.? He remains without insight and worries that the voices of his neighbor will return once he goes back home, not understanding that these are auditory hallucinations associated with a psychiatric illness and to that and he will likely continually struggle with medication adherence; thus patient's stability in the community will directly correlate with the effectiveness of outpatient services.? Patient has complained of sexual side effects from clozapine however it is unclear to what extent as patient is a very limited historian; also this topic is come up during past admissions on other medications and it is not clear if it is medication related. PLAN: Section 8b Patient Civil Committed and substituted judgment for medications ordered. Dispostion: Once patient has ACCS services fully established will discharge home; otherwise without extensive community supportive services, patient will quickly decompensate Medication plan:? Trial of clozapine; overlap Haldol/Depak (minimally helpful) for now; goal to see if clozapine can be effective alone Clozapine? 325mg at DINNER time to mitigate daytime tiredness (to help with adherence; was split dosing) CANNOT REFUSE; COURT ORDERED; GIVE HALDOL 5MG IF REFUSES -patient has improved significantly so will leave at this dose for now so as to avoid risk of side-effects ANC 2.6 on 04/27/22 ANC weekly RESTART Benztropine Mesylate (Benztropine Mesylate 0.5 Mg Tablet)? 0.5 mg PO qHS; patient developed dystonic reaction when discontinued Continue Clonidine HCl (Clonidine Hcl 0.1 Mg Tablet)? 0.1 mg PO TID PRN Reason: hyperarousal Continue Trazodone HCl? 50 mg PO BEDTIME PRN Insomnia Continue Hydroxyzine HCl (Hydroxyzine Hcl 25 Mg Tablet)? 25 mg PO Q6H PRN Anxiety DISCONTINUED Divalproex ER 1000 mg PO QHS on 03/26; patient has been refusing it and since goal is to see if monotherapy with clozapine can work, will just discontinue it for now; patient does not have history of bipolar disorder or manic episodes and this medication was used with only limited success for behavioral issues. DISCONTINUED Haloperidol (was 10 mg BID; patient refuses; at this point might as well see if clozapine by itself can be effective as Haldol has only ever Seemed to be minimally helpful and it's not worth forcing an IM) DISCONTINUED Quetiapine qhs; pt does not want for day to day events (see below)... HOSPITAL COURSE 02/24: Ct treatment plan 02/25: Ct Rx plan. May need committment. Lacks insight and is non compliant with meds. 02/26: Pt adamantly does not want to increase haldol or depakote. Will start seroquel 300 mg QHS for sx of psychotic depression, has not had adequate trial on seroquel. May help with poor sleep. 02/27: Pt has been refusing all meds; AH complaints but denies any SI/HI and his demonstrate safe behaviors on the unit 02/28 retracted 3 day, remains preoccupied with auditory hallucinations of his neighbors and delusional thoughts that his neighbors are persecuting him agrees to stay for treatment; considering clozapine 03/01 Angry and demanding discharge and 3 day notice placed; difficult to engage; no insight.? Refused morning dose of Haldol.? At said he is taking clozapine before and resisted reality testing; however said will still consider 03/02 patient willingly taking clozapine 03/06 patient intermittently takes clozapine; he is disorganized in behavior and thought, intermittently yelling and accusing staff and posturing and threatening staff.? Patient struggles to understand that his rent is paid for; while talking about a specific topic, patient will intermittently respond with a disorganized irrelevant answer.? Patient has failed monotherapy with Seroquel, Palliperidone, Risperdal and Haldol.? Will continue to titrate clozapine as patient is willing to see if this can be effective.? Patient has a 3 day notice due today 03/06/2022.? Team finds that patient is unstable and not safe to return the community as he has ongoing auditory hallucinations and paranoid delusional thoughts that about his neighbors plotting to hurt him.? Will file for Civil commitment; also discussed is that patient may need long-term admission to better establish stability. 03/08 patient disorganized; refused labs making it difficult to titrate clozapine.? Will continue to trying get patient to allow labs 03/09 remains disorganized, sometimes adhering to treatment other times refusing it without any clear pattern.? Patient is not amenable to logical explanation and his engagement in tx is unpredictable making dosing with Clozapine (and depakote) difficult as it requires periodic blood work and controlled titration .? However, Will continue with attempts at clozapine since this seems to be best option for patient to become stabilized 03/10 remains disorganized; won't engage; continues to have AH 03/13 CIVIL COMMITMENT AND SUBSTITUTED JUDGMENT ORDERED 03/16 continue current tx plan 03/19 Patient has moments of insight but quickly descends back into struggles with paranoia, disorganized thinking, thinking AH are real. Patient struggles with taking medication are difficult to predict.?Today he said I feel good, why would it take medication? despite that during the same conversation he also said that he continues to hear his neighbors say mad crap And if they come after him something will happen. The Hope is that clozapine as a monotherapy will be sufficient; telegraphic typewriter repairer discussed case with patient's past inpatient provider and there is no history of bipolar/manic episodes and Depakote only used for impulsivity/anger.? Thus, will lower Depakote to a 1000 mg q.h.s. With clozapine, it may be easier for patient to tolerate single dosing so will see if moving the entire dose to bedtime helps with adherence rather than being asked to take medications twice a day.? That said, sometimes patient wakes up in the morning and demands his morning medications so it is difficult to know The best way to mitigate his his anxiety around this issue. 03/26 patient has been refusing Depakote; since he does not have history of bipolar disorder manic episodes and this medication has had limited effect, will just discontinue for now and move forward with seen of clozapine can be effective on its own; will also DC Haldol Since patient refuses; at this point might as well see if clozapine by itself can be effective as Haldol has only ever Seemed to be minimally helpful. 03/27 denies auditory hallucinations but remains without any insight and saying that he will not take medications when he goes home because he is good. 03/28 Patient vacillates between being irritable and calm; sometimes he says he will take his medications when he goes home other times he says he is doing fine and does not need it. It is not clear if patient still hears auditory hallucinations or if they have resolved as his reporting is inconsistent. It remains necessary for patient to go to a long-term facility for continued medication management and to have a longer time without symptoms. 04/04 (not 04/05) patient overall more calm and excepting of being on the unit, waiting for further stabilization and outpatient services to be set up before returning to the community; does not want to go to [facility].? Patient's improvement is despite the fact that both Haldol and Depakote have been discontinued; off these medications he is less sedated and up earlier in the day.? Patient denies auditory hallucinations.? Intermittently he can accept that AH has resolved due to medication, but he does not have insight into presence of psychiatric disorder and need for ongoing treatment even when feeling stable.? That said, it is not clear that increasing doses of Clozaril would resolve this impaired insight; his improved presentation and desire to avoid side effects gives pause to further titrating clozapine.? Will leave here for now and monitor.? The remains significant concern the patient would discontinue his medications on discharge and team continues to agree that he needs a prolonged experience of being symptom free to connect his ongoing need for medication. 04/09 no changes 04/12 remains stable; staff discussed and think that patient is likely close to maximum benefit from clozapine so will keep at current dose for now. Concern is that any increase could cause side effects which would be a barrier to patient continue medication on discharge 04/16 Patient remains is stable Tried to discuss sexual side effects of medication but patient was very vague and it is on conclusive; other staff reports that this topic is come up in the past make it less likely related to clozapine 04/19 no changes 04/20 successful meeting today with ACCS; remains calm and pleasant 04/23 remains stable and likely at baseline; will discontinue Cogentin since patient has no history of EPS and is now only on clozapine which has low EPS risk; telegraphic typewriter repairer discussed with nursing who will monitor for symptoms. 04/24 patient got dystonia with stiff neck which was relieved with Cogentin. Career And Technology Education Teacher will reorder as scheduled; good meeting with DM worker 04/27 No changes to treatment team, pt denies dystonia 04/28: no change - continue treatment plan 04/29 no change - continue treatment plan 05/02 remains stable. Waiting to complete wraparound services so the patient can be stable in the community. Will then discharge. MED Trials: Seroquel Palliperidone Risperdal Haldol I spent minutes with the patient and/or on the patient floor today, greater than?50% of which was spent counseling/coordinating care. Reason for contiued inpatient stay Substantial Risk for: inability to function
[2022-05-03 15:01] VITALS: BP 144/69; PULSE 127; RESP 17; TEMP 36.5; O2SAT 97
[2022-05-03] MEDS: cloZAPine 100 MG TABLET 350 MG PO (17:02)
[2022-05-03] MEDS: Benztropine Mesylate 0.5 MG TABLET PO (19:39)
[2022-05-04 06:00] VITALS: BP 128/88; PULSE 79; RESP 16; TEMP 36.5; O2SAT 97
--- NOTE | 2022-05-04 11:31 | PC.NURSE ---
Labs refused Nura refused to have his blood drawn for labs this shift.
[2022-05-04 12:21] LABS: MANUAL DIFF FLAG NO
[2022-05-04 12:25] LABS: Basophils Percent Auto 0.4 % (0-2); Eosinophils Absolute Auto 0.2 X10*3/uL (0.0-0.4); Eosinophils Percent Auto 2.7 % (0-4); Hematocrit 43.9 % (42.0-52.0); Hemoglobin 15.2 g/dl (14.0-18.0); Imm Gran Abs Auto 0.03 X10*3/uL (0.00-0.03); Imm Gran Pct Auto 0.4 % (0.0-0.4); Lymphocytes Absolute Auto 3.1 X10*3/uL (1.2-4.9); Lymphocytes Percent Auto 41.8 % (20-40); Mean Corpuscular HGB Conc 34.6 g/dl (31.0-36.0); Mean Corpuscular Hemoglobin 28.4 pg (27.0-33.0); Mean Corpuscular Volume 82.1 fL (80.0-98.0); Mean Platelet Volume 9.9 fL (9.4-12.4); Monocytes Absolute Auto 0.5 X10*3/uL (0.1-1.2); Monocytes Percent Auto 6.3 % (2-11); Neutrophils Absolute Auto 3.6 x10*3/uL (2.0-8.3); Neutrophils Percent Auto 48.4 % (45-73); Platelet Count 280 X10*3/uL (160-400); Red Blood Count 5.35 X10*6/uL (4.60-5.80); White Blood Count 7.4 X10*3/uL (4.8-10.8)
[2022-05-04] MEDS: cloZAPine 100 MG TABLET 350 MG PO (16:49)
--- NOTE | 2022-05-04 17:49 | P.PNPSI_ITS ---
Subjective Subjective Date of Service: 05/04/22 Reason For Visit: schizoaffective Interim History: pt in good mood; good meeting with [facility] workers who came to unit; pt clarified that plan was to discharge next week on the which was confirmed. stable, no changes in presentation Mental Status Exam Mental Status Exam Narrative: Pt is alert and oriented; behavior, calm and cooperative; dressed in casual attire, wearing casual cloths, adequately groomed and with adequate hygiene; mood pleasant; affect congruent; eye contact adequate, appropriate; Speech is normal rate, normal volume; normal prosody; no intermittent psychomotor agitation; thought process goal oriented; Thought content is on discharge; he is less perseverative on paranoid delusional worries about being persecuted by his neighbors; Denies SI/HI. denies AH;? Patients insight and judgment are impaired but have improved and possibly at baseline. Diagnostics Vital Signs (24Hr): Vital Signs - 24 hr 05/04/22 06:00 Temperature 97.7 F Pulse Rate 79 Respiratory Rate 16 Blood Pressure 128/88 Pulse Oximetry 97 BMI result Body Mass Index 36.1 Labs Results: 05/04/22 12:16 Labs: Laboratory Results - last 48 hr 05/04/22 12:16 WBC 7.4 RBC 5.35 Hgb 15.2 Hct 43.9 MCV 82.1 MCH 28.4 MCHC 34.6 RDW 12.0 Plt Count 280 MPV 9.9 Immature Gran % (Auto) 0.4 Neut % (Auto) 48.4 Lymph % (Auto) 41.8 H [place] % (Auto) 6.3 Eos % (Auto) 2.7 Baso % (Auto) 0.4 Lymph # (Auto) 3.1 [place] # (Auto) 0.5 Eos # (Auto) 0.2 Baso # (Auto) 0.0 Abs Immat Gran (auto) 0.03 Absolute Neuts (auto) 3.6 Absolute Nucleated RBC 0.000 Nucleated RBC % (auto) 0.0 Medications Medications Current Medications Acetaminophen (Acetaminophen 325 Mg Tablet) 650 mg PO Q6H PRN PRN Reason: Headache/Pain Mild Scale (1-3) Last Admin: 03/03/22 22:41 Dose: 650 mg Al Hydroxide/Mg Hydroxide (Magnesium Hydrox/Alum Hydrox 30 Ml Oral.Susp) 30 ml PO Q6H PRN PRN Reason: Heartburn/Nausea Albuterol Sulfate (Albuterol Sulfate 90 Mcg 8 Gm Inhaler) 2 puff INHALE RQ4H PRN PRN Reason: Shortness Of Breath Benztropine Mesylate (Benztropine Mesylate 0.5 Mg Tablet) 0.5 mg PO BEDTIME [facility] Last Admin: 05/03/22 19:39 Dose: 0.5 mg Clonidine HCl (Clonidine Hcl 0.1 Mg Tablet) 0.1 mg PO TID PRN; Protocol PRN Reason: hyperarousal Last Admin: 02/28/22 21:47 Dose: 0.1 mg Clozapine (Clozapine 100 Mg Tablet) 350 mg PO DAILY@1700 [facility] Last Admin: 05/04/22 16:49 Dose: 350 mg Diphenhydramine HCl (Diphenhydramine Hcl 25 Mg Tablet) 50 mg PO Q4H PRN PRN Reason: agitation Haloperidol (Haloperidol 5 Mg Tablet) 10 mg PO Q4H PRN PRN Reason: agitation Last Admin: 04/03/22 22:17 Dose: 10 mg Haloperidol Lactate (Haloperidol Lactate 5 Mg/Ml Vial) 10 mg IM DAILY PRN PRN Reason: if refuses PO Hydroxyzine HCl (Hydroxyzine Hcl 25 Mg Tablet) 25 mg PO Q6H PRN PRN Reason: Anxiety Last Admin: 04/27/22 21:11 Dose: 25 mg Lidocaine HCl (Lidocaine 4 % Cream Kit) 1 appl TOPICAL DAILY PRN; Protocol PRN Reason: prophylactiinjection site pain Magnesium Hydroxide (Milk Of Magnesia 30 Ml Oral.Susp) 30 ml PO DAILY PRN PRN Reason: Constipation Trazodone HCl (Trazodone Hcl 50 Mg Tablet) 50 mg PO BEDTIME PRN PRN Reason: Insomnia Allergies Allergies Allergy/AdvReac Type Severity Reaction Status Date / Time No Known Allergies Allergy Verified 02/19/22 03:39 [No Known Allergies*] Assessment & Plan Assessment & Plan (1) Schizophrenia, paranoid, chronic with acute exacerbation: Status: Acute Code(s): F20.0 - Paranoid schizophrenia Plan HPI: Nura is a 26 y.o. male who carries a dx of paranoid schizophrenia. Hx of AH, has fixed delusion of believing neighbors are talking about him. Has DMH and ACCS services through [facility][NOTE 3]. No Catarino's order. Hx of med non-adherence upon discharge.? Patient has been repeatedly coming to the emergency room asking for help with auditory hallucinations Formulation: dx Schizophrenia, paranoid type [employer] Technology Instructor discussed case with colleagues who have worked with patient in the past and also with staff on the unit for current admission. He has a hx of multiple inpatient admissions, including 1 about a month ago with very similar presentation, refusing to take meds, asking for discharge and deemed safe to return to the community. He has been re-presenting to [facility] after being discharged with the same presentation, not dangerous, but asking for help and then refusing treatment wanting discharge. He continues to have auditory hallucinations about his neighbor.?Initially, he has not expressed any delusional concerns that his neighbor is going to hurt him, just that his neighbors talking about him and so considered discharge.?However, Patient soon expressed concerns that his neighbors are plotting to harm him and that he is prepared to harm them back if he needs to defend himself.? As patient has presented several times to the emergency room in between admissions he is demonstrating that he is struggling to function in the community.? He has an ex tensive history of medication noncompliance. He has chronic paranoid delusions and auditory hallucinations that his neighbors are going to hurt him which intermittently expand to thoughts about preparing to defend himself.? Will continue treatment however, given his long hx of refractory psychosis, no insight and poor adherence with medication, team agrees that patient needs a more long-term admission to stabilize to the point where he could successfully live in the community.? During this admission, patient has significantly improved on clozapine.? He remains so without Haldol and Depakote which have both been discontinued.? He is pleasant and friendly.? Auditory hallucinations are either absent or minimal.? He remains without insight and worries that the voices of his neighbor will return once he goes back home, not understanding that these are auditory hallucinations associated with a psychiatric illness and to that and he will likely continually struggle with medication adherence; thus patient's stability in the community will directly correlate with the effectiveness of outpatient services.? Patient has complained of sexual side effects from clozapine however it is unclear to what extent as patient is a very limited historian; also this topic is come up during past admissions on other medications and it is not clear if it is medication related. PLAN: Section 8b Patient Civil Committed and substituted judgment for medications ordered. Dispostion: Once patient has ACCS services fully established will discharge home; otherwise without extensive community supportive services, patient will quickly decompensate Medication plan:? Trial of clozapine; overlap Haldol/Depak (minimally helpful) for now; goal to see if clozapine can be effective alone Clozapine? 325mg at DINNER time to mitigate daytime tiredness (to help with adherence; was split dosing) CANNOT REFUSE; COURT ORDERED; GIVE HALDOL 5MG IF REFUSES -patient has improved significantly so will leave at this dose for now so as to avoid risk of side-effects ANC 2.6 on 04/27/22 ANC weekly RESTART Benztropine Mesylate (Benztropine Mesylate 0.5 Mg Tablet)? 0.5 mg PO qHS; patient developed dystonic reaction when discontinued Continue Clonidine HCl (Clonidine Hcl 0.1 Mg Tablet)? 0.1 mg PO TID PRN Reason: hyperarousal Continue Trazodone HCl? 50 mg PO BEDTIME PRN Insomnia Continue Hydroxyzine HCl (Hydroxyzine Hcl 25 Mg Tablet)? 25 mg PO Q6H PRN Anxiety DISCONTINUED Divalproex ER 1000 mg PO QHS on 03/26; patient has been refusing it and since goal is to see if monotherapy with clozapine can work, will just discontinue it for now; patient does not have history of bipolar disorder or manic episodes and this medication was used with only limited success for behavioral issues. DISCONTINUED Haloperidol (was 10 mg BID; patient refuses; at this point might as well see if clozapine by itself can be effective as Haldol has only ever Seemed to be minimally helpful and it's not worth forcing an IM) DISCONTINUED Quetiapine qhs; pt does not want for day to day events (see below)... HOSPITAL COURSE 02/24: Ct treatment plan 02/25: Ct Rx plan. May need committment. Lacks insight and is non compliant with meds. 02/26: Pt adamantly does not want to increase haldol or depakote. Will start seroquel 300 mg QHS for sx of psychotic depression, has not had adequate trial on seroquel. May help with poor sleep. 02/27: Pt has been refusing all meds; AH complaints but denies any SI/HI and his demonstrate safe behaviors on the unit 02/28 retracted 3 day, remains preoccupied with auditory hallucinations of his neighbors and delusional thoughts that his neighbors are persecuting him agrees to stay for treatment; considering clozapine 03/01 Angry and demanding discharge and 3 day notice placed; difficult to engage; no insight.? Refused morning dose of Haldol.? At 1st said he is taking clozapine before and resisted reality testing; however said will still consider 03/02 patient willingly taking clozapine 03/06 patient intermittently takes clozapine; he is disorganized in behavior and thought, intermittently yelling and accusing staff and posturing and threatening staff.? Patient struggles to understand that his rent is paid for; while talking about a specific topic, patient will intermittently respond with a disorganized irrelevant answer.? Patient has failed monotherapy with Seroquel, Palliperidone, Risperdal and Haldol.? Will continue to titrate clozapine as patient is willing to see if this can be effective.? Patient has a 3 day notice due today 03/06/2022.? Team finds that patient is unstable and not safe to return the community as he has ongoing auditory hallucinations and paranoid delusional thoughts that about his neighbors plotting to hurt him.? Will file for Civil commitment; also discussed is that patient may need long-term admission to better establish stability. 03/08 patient disorganized; refused labs making it difficult to titrate clozapine.? Will continue to trying get patient to allow labs 03/09 remains disorganized, sometimes adhering to treatment other times refusing it without any clear pattern.? Patient is not amenable to logical explanation and his engagement in tx is unpredictable making dosing with Clozapine (and depakote) difficult as it requires periodic blood work and controlled titration.? However, Will continue with attempts at clozapine since this seems to be best option for patient to become stabilized 03/10 remains disorganized; won't engage; continues to have AH 03/13 CIVIL COMMITMENT AND SUBSTITUTED JUDGMENT ORDERED 03/16 continue current tx plan 03/19 Patient has moments of insight but quickly descends back into struggles with paranoia, disorganized thinking, thinking AH are real. Patient struggles with taking medication are difficult to predict.?Today he said I feel good, why would it take medication? despite that during the same conversation he also said that he continues to hear his neighbors say mad crap And if they come after him something will happen. The Hope is that clozapine as a monotherapy will be sufficient; fha underwriter discussed case with patient's past inpatient provider and there is no history of bipolar/manic episodes and Depakote only used for impulsivity/anger.? Thus, will lower Depakote to a 1000 mg q.h.s. With clozapine, it may be easier for patient to tolerate single dosing so will see if moving the entire dose to bedtime helps with adherence rather than being asked to take medications twice a day.? That said, sometimes patient wakes up in the morning and demands his morning medications so it is difficult to know The best way to mitigate his his anxiety around this issue. 03/26 patient has been refusing Depakote; since he does not have history of bipolar disorder manic episodes and this medication has had limited effect, will just discontinue for now and move forward with seen of clozapine can be effective on its own; will also DC Haldol Since patient refuses; at this point might as well see if clozapine by itself can be effective as Haldol has only ever Seemed to be minimally helpful. 03/27 denies auditory hallucinations but remains without any insight and saying that he will not take medications when he goes home because he is good. 03/28 Patient vacillates between being irritable and calm; sometimes he says he will take his medications when he goes home other times he says he is doing fine and does not need it. It is not clear if patient still hears auditory hallucinations or if they have resolved as his reporting is inconsistent. It remains necessary for patient to go to a long-term facility for continued medication management and to have a longer time without symptoms. 04/04 (not 04/05) patient overall more calm and excepting of being on the unit, waiting for further stabilization and outpatient services to be set up before returning to the community; does not want to go to [facility].? Patient's improvement is despite the fact that both Haldol and Depakote have been discontinued; off these medications he is less sedated and up earlier in the day.? Patient denies auditory hallucinations.? Intermittently he can accept that AH has resolved due to medication, but he does not have insight into presence of psychiatric disorder and need for ongoing treatment even when feeling stable.? That said, it is not clear that increasing doses of Clozaril would resolve this impaired insight; his improved presentation and desire to avoid side effects gives pause to further titrating clozapine.? Will leave here for now and monitor.? The remains significant concern the patient would discontinue his medications on discharge and team continues to agree that he needs a prolonged experience of being symptom free to connect his ongoing need for medication. 04/09 no changes 04/12 remains stable; staff discussed and think that patient is likely close to maximum benefit from clozapine so will keep at current dose for now. Concern is that any increase could cause side effects which would be a barrier to patient continue medication on discharge 04/16 Patient remains is stable Tried to discuss sexual side effects of medication but patient was very vague and it is on conclusive; other staff reports that this topic is come up in the past make it less likely related to clozapine 04/19 no changes 04/20 successful meeting today with ACCS; remains calm and pleasant 04/23 remains stable and likely at baseline; will discontinue Cogentin since patient has no history of EPS and is now only on clozapine which has low EPS risk; fha underwriter discussed with nursing who will monitor for symptoms. 04/24 patient got dystonia with stiff neck which was relieved with Cogentin. Fire Technology Instructor will reorder as scheduled; good meeting with [facility] worker 04/27 No changes to treatment team, pt denies dystonia 04/28: no change - continue treatment plan 04/29 no change - continue treatment plan 05/02 remains stable. Waiting to complete wraparound services so the patient can be stable in the community. Will then discharge. 05/04 pt remains stable; eager for discharge next week. Pt reported to nursing that he cannot ejaculate. It is very difficult to discern if this is due to medication side-effect or not; previously fha underwriter has tried to discuss this with patient but he is a poor historian and cannot answer detailed questions making it unclear exactly what he is experiencing or if it's present when not on medications; he has c/o sexual dysfunction on previous admissions, on other medications but reports have always remained vague. He does not like talking about this with males. Because of this ambiguity and because of patients stability, current medication regimen continued. If this continues, patient can discuss with outpt provider. MED Trials: Seroquel Palliperidone Risperdal Haldol I spent minutes with the patient and/or on the patient floor today, greater than?50% of which was spent counseling/coordinating care. Patient educated on: therapeutic strategies Informed Consent: understands Reason for contiued inpatient stay Substantial Risk for: inability to function (without wrap around services )
[2022-05-04 18:00] VITALS: BP 128/88; PULSE 79; RESP 16; TEMP 36.5; O2SAT 97
[2022-05-04] MEDS: Benztropine Mesylate 0.5 MG TABLET PO (20:42)
--- NOTE | 2022-05-05 14:36 | HO.PSYCHPN ---
Subjective Subjective Date of Service: 05/05/22 Reason For Visit: schizoaffective Interim History: Met with patient. Discussed with Nursing. Overall doing okay. Does have anxiety around phlebotomy Shahnaz for temp blood draws again later. He reports feeling okay. Looking forward to discharge after the weekend. Sleep good. No medication concerns. Feeling well cared for. Medication Compliance: Yes Side effects from medications: No Attending Groups: Intermittent Review of Systems Acute medical concerns: No Review of Systems Review of Systems Unremarkable Mental Status Exam Mental Status Exam Narrative: Pt is alert and oriented; behavior, calm and cooperative; dressed in casual attire, wearing casual cloths, adequately groomed and with adequate hygiene; mood pleasant; affect congruent; eye contact adequate, appropriate; Speech is normal rate, normal volume; normal prosody; no intermittent psychomotor agitation; thought process goal oriented; no overt delusions; Denies SI/HI. denies AH;? Patients insight and judgment are impaired but have improved and possibly at baseline. Diagnostics Vital Signs (24Hr): Vital Signs - 24 hr 05/04/22 18:00 Temperature 97.7 F Pulse Rate 79 Respiratory Rate 16 Blood Pressure 128/88 Pulse Oximetry 97 Oxygen Delivery Method Room Air BMI result Body Mass Index 36.1 Labs Results: 05/04/22 12:16 Labs: Laboratory Results - last 48 hr 05/04/22 12:16 WBC 7.4 RBC 5.35 Hgb 15.2 Hct 43.9 MCV 82.1 MCH 28.4 MCHC 34.6 RDW 12.0 Plt Count 280 MPV 9.9 Immature Gran % (Auto) 0.4 Neut % (Auto) 48.4 Lymph % (Auto) 41.8 H [place] % (Auto) 6.3 Eos % (Auto) 2.7 Baso % (Auto) 0.4 Lymph # (Auto) 3.1 [place] # (Auto) 0.5 Eos # (Auto) 0.2 Baso # (Auto) 0.0 Abs Immat Gran (auto) 0.03 Absolute Neuts (auto) 3.6 Absolute Nucleated RBC 0.000 Nucleated RBC % (auto) 0.0 Medications Medications Current Medications Acetaminophen (Acetaminophen 325 Mg Tablet) 650 mg PO Q6H PRN PRN Reason: Headache/Pain Mild Scale (1-3) Last Admin: 03/03/22 22:41 Dose: 650 mg Al Hydroxide/Mg Hydroxide (Magnesium Hydrox/Alum Hydrox 30 Ml Oral.Susp) 30 ml PO Q6H PRN PRN Reason: Heartburn/Nausea Albuterol Sulfate (Albuterol Sulfate 90 Mcg 8 Gm Inhaler) 2 puff INHALE RQ4H PRN PRN Reason: Shortness Of Breath Benztropine Mesylate (Benztropine Mesylate 0.5 Mg Tablet) 0.5 mg PO BEDTIME JOE Last Admin: 05/04/22 20:42 Dose: 0.5 mg Clonidine HCl (Clonidine Hcl 0.1 Mg Tablet) 0.1 mg PO TID PRN; Protocol PRN Reason: hyperarousal Last Admin: 02/28/22 21:47 Dose: 0.1 mg Clozapine (Clozapine 100 Mg Tablet) 350 mg PO DAILY@1700 [facility] Last Admin: 05/04/22 16:49 Dose: 350 mg Diphenhydramine HCl (Diphenhydramine Hcl 25 Mg Tablet) 50 mg PO Q4H PRN PRN Reason: agitation Haloperidol (Haloperidol 5 Mg Tablet) 10 mg PO Q4H PRN PRN Reason: agitation Last Admin: 04/03/22 22:17 Dose: 10 mg Haloperidol Lactate (Haloperidol Lactate 5 Mg/Ml Vial) 10 mg IM DAILY PRN PRN Reason: if refuses PO Hydroxyzine HCl (Hydroxyzine Hcl 25 Mg Tablet) 25 mg PO Q6H PRN PRN Reason: Anxiety Last Admin: 04/27/22 21:11 Dose: 25 mg Lidocaine HCl (Lidocaine 4 % Cream Kit) 1 appl TOPICAL DAILY PRN; Protocol PRN Reason: prophylactiinjection site pain Magnesium Hydroxide (Milk Of Magnesia 30 Ml Oral.Susp) 30 ml PO DAILY PRN PRN Reason: Constipation Trazodone HCl (Trazodone Hcl 50 Mg Tablet) 50 mg PO BEDTIME PRN PRN Reason: Insomnia Allergies Allergies Allergy/AdvReac Type Severity Reaction Status Date / Time No Known Allergies Allergy Verified 02/19/22 03:39 [No Known Allergies*] Assessment & Plan Assessment & Plan (1) Schizophrenia, paranoid, chronic with acute exacerbation: Status: Acute Code(s): F20.0 - Paranoid schizophrenia Plan HPI: Nura is a 26 y.o. male who carries a dx of paranoid schizophrenia. Hx of , has fixed delusion of believing neighbors are talking about him. Has DMH and ACCS services through [facility]. No Catarino's order. Hx of med non-adherence upon discharge.? Patient has been repeatedly coming to the emergency room asking for help with auditory hallucinations Formulation: dx Schizophrenia, paranoid type C 13 Catapult Operator discussed case with colleagues who have worked with patient in the past and also with staff on the unit for current admission. He has a hx of multiple inpatient admissions, including 1 about a month ago with very similar presentation, refusing to take meds, asking for discharge and deemed safe to return to the community. He has been re-presenting to [facility] after being discharged with the same presentation, not dangerous, but asking for help and then refusing treatment wanting discharge. He continues to have auditory hallucinations about his neighbor.?Initially, he has not expressed any delusional concerns that his neighbor is going to hurt him, just that his neighbors talking about him and so considered discharge.?However, Patient soon expressed concerns that his neighbors are plotting to harm him and that he is prepared to harm them back if he needs to defend himself.? As patient has presented several times to the emergency room in between admissions he is demonstrating that he is struggling to function in the community.? He has an extensive history of medication noncompliance. He has chronic paranoid delusions and auditory hallucinations that his neighbors are going to hurt him which intermittently expand to thoughts about preparing to defend himself.? Will continue treatment however, given his long hx of refractory psychosis, no insight and poor adherence with medication, team agrees that patient needs a more long-term admission to stabilize to the point where he could successfully live in the community.? During this admission, patient has significantly improved on clozapine.? He remains so without Haldol and Depakote which have both been discontinued.? He is pleasant and friendly.? Auditory hallucinations are either absent or minimal.? He remains without insight and worries that the voices of his neighbor will return once he goes back home, not understanding that these are auditory hallucinations associated with a psychiatric illness and to that and he will likely continually struggle with medication adherence; thus patient's stability in the community will directly correlate with the effectiveness of outpatient services.? Patient has complained of sexual side effects from clozapine however it is unclear to what extent as patient is a very limited historian; also this topic is come up during past admissions on other medications and it is not clear if it is medication related. PLAN: Section 8b Patient Civil Committed and substituted judgment for medications ordered. Dispostion: Once patient has ACCS services fully established will discharge home; otherwise without extensive community supportive services, patient will quickly decompensate Medication plan:? Trial of clozapine; overlap Haldol/Depak (minimally helpful) for now; goal to see if clozapine can be effective alone Clozapine? 325mg at DINNER time to mitigate daytime tiredness (to help with adherence; was split dosing) CANNOT REFUSE; COURT ORDERED; GIVE HALDOL 5MG IF REFUSES -patient has improved significantly so will leave at this dose for now so as to avoid risk of side-effects ANC 2.6 on 04/27/22 ANC weekly RESTART Benztropine Mesylate (Benztropine Mesylate 0.5 Mg Tablet)? 0.5 mg PO qHS; patient developed dystonic reaction when discontinued Continue Clonidine HCl (Clonidine Hcl 0.1 Mg Tablet)? 0.1 mg PO TID PRN Reason: hyperarousal Continue Trazodone HCl? 50 mg PO BEDTIME PRN Insomnia Continue Hydroxyzine HCl (Hydroxyzine Hcl 25 Mg Tablet)? 25 mg PO Q6H PRN Anxiety DISCONTINUED Divalproex ER 1000 mg PO QHS on 03/26; patient has been refusing it and since goal is to see if monotherapy with clozapine can work, will just discontinue it for now; patient does not have history of bipolar disorder or manic episodes and this medication was used with only limited success for behavioral issues. DISCONTINUED Haloperidol (was 10 mg BID; patient refuses; at this point might as well see if clozapine by itself can be effective as Haldol has only ever Seemed to be minimally helpful and it's not worth forcing an IM) DISCONTINUED Quetiapine qhs; pt does not want for day to day events (see below)... HOSPITAL COURSE 02/24: Ct treatment plan 02/25: Ct Rx plan. May need committment. Lacks insight and is non compliant with meds. 02/26: Pt adamantly does not want to increase haldol or depakote. Will start seroquel 300 mg QHS for sx of psychotic depression, has not had adequate trial on seroquel. May help with poor sleep. 02/27: Pt has been refusing all meds; AH complaints but denies any SI/HI and his demonstrate safe behaviors on the unit 02/28 retracted 3 day, remains preoccupied with auditory hallucinations of his neighbors and delusional thoughts that his neighbors are persecuting him agrees to stay for treatment; considering clozapine 03/01 Angry and demanding discharge and 3 day notice placed; difficult to engage; no insight.? Refused morning dose of Haldol.? At said he is taking clozapine before and resisted reality testing; however said will still consider 03/02 patient willingly taking clozapine 03/06 patient intermittently takes clozapine; he is disorganized in behavior and thought, intermittently yelling and accusing staff and posturing and threatening staff.? Patient struggles to understand that his rent is paid for; while talking about a specific topic, patient will intermittently respond with a disorganized irrelevant answer.? Patient has failed monotherapy with Seroquel, Palliperidone, Risperdal and Haldol.? Will continue to titrate clozapine as patient is willing to see if this can be effective.? Patient has a 3 day notice due today 03/06/2022.? Team finds that patient is unstable and not safe to return the community as he has ongoing auditory hallucinations and paranoid delusional thoughts that about his neighbors plotting to hurt him.? Will file for Civil commitment; also discussed is that patient may need long-term admission to better establish stability. 03/08 patient disorganized; refused labs making it difficult to titrate clozapine.? Will continue to trying get patient to allow labs 03/09 remains disorganized, sometimes adhering to treatment other times refusing it without any clear pattern.? Patient is not amenable to logical explanation and his engagement in tx is unpredictable making dosing with Clozapine (and depakote) difficult as it requires periodic blood work and controlled titration.? However, Will continue with attempts at clozapine since this seems to be best option for patient to become stabilized 03/10 remains disorganized; won't engage; continues to have AH 03/13 CIVIL COMMITMENT AND SUBSTITUTED JUDGMENT ORDERED 03/16 continue current tx plan 03/19 Patient has moments of insight but quickly descends back into struggles with paranoia, disorganized thinking, thinking AH are real. Patient struggles with taking medication are difficult to predict.?Today he said I feel good, why would it take medication? despite that during the same conversation he also said that he continues to hear his neighbors say mad crap And if they come after him something will happen. The Hope is that clozapine as a monotherapy will be sufficient; science writer discussed case with patient's past inpatient provider and there is no history of bipolar/manic episodes and Depakote only used for impulsivity/anger.? Thus, will lower Depakote to a 1000 mg q.h.s. With clozapine, it may be easier for patient to tolerate single dosing so will see if moving the entire dose to bedtime helps with adherence rather than being asked to take medications twice a day.? That said, sometimes patient wakes up in the morning and demands his morning medications so it is difficult to know The best way to mitigate his his anxiety around this issue. 03/26 patient has been refusing Depakote; since he does not have history of bipolar disorder manic episodes and this medication has had limited effect, will just discontinue for now and move forward with seen of clozapine can be effective on its own; will also DC Haldol Since patient refuses; at this point might as well see if clozapine by itself can be effective as Haldol has only ever Seemed to be minimally helpful. 03/27 denies auditory hallucinations but remains without any insight and saying that he will not take medications when he goes home because he is good. 03/28 Patient vacillates between being irritable and calm; sometimes he says he will take his medications when he goes home other times he says he is doing fine and does not need it. It is not clear if patient still hears auditory hallucinations or if they have resolved as his reporting is inconsistent. It remains necessary for patient to go to a long-term facility for continued medication management and to have a longer time without symptoms. 04/04 (not 04/05) patient overall more calm and excepting of being on the unit, waiting for further stabilization and outpatient services to be set up before returning to the community; does not want to go to [facility].? Patient's improvement is despite the fact that both Haldol and Depakote have been discontinued; off these medications he is less sedated and up earlier in the day.? Patient denies auditory hallucinations.? Intermittently he can accept that AH has resolved due to medication, but he does not have insight into presence of psychiatric disorder and need for ongoing treatment even when feeling stable.? That said, it is not clear that increasing doses of Clozaril would resolve this impaired insight; his improved presentation and desire to avoid side effects gives pause to further titrating clozapine.? Will leave here for now and monitor.? The remains significant concern the patient would discontinue his medications on discharge and team continues to agree that he needs a prolonged experience of being symptom free to connect his ongoing need for medication. 04/09 no changes 04/12 remains stable; staff discussed and think that patient is likely close to maximum benefit from clozapine so will keep at current dose for now. Concern is that any increase could cause side effects which would be a barrier to patient continue medication on discharge 04/16 Patient remains is stable Tried to discuss sexual side effects of medication but patient was very vague and it is on conclusive; other staff reports that this topic is come up in the past make it less likely related to clozapine 04/19 no changes 04/20 successful meeting today with ACCS; remains calm and pleasant 04/23 remains stable and likely at baseline; will discontinue Cogentin since patient has no history of EPS and is now only on clozapine which has low EPS risk; science writer discussed with nursing who will monitor for symptoms. 04/24 patient got dystonia with stiff neck which was relieved with Cogentin. C 13 Catapult Operator will reorder as scheduled; good meeting with [facility] worker 04/27 No changes to treatment team, pt denies dystonia 04/28: no change - continue treatment plan 04/29 no change - continue treatment plan 05/02 remains stable. Waiting to complete wraparound services so the patient can be stable in the community. Will then discharge. 05/05/2022: No changes to current plan. MED Trials: Seroquel Palliperidone Risperdal Haldol I spent minutes with the patient and/or on the patient floor today, greater than?50% of which was spent counseling/coordinating care. Reason for contiued inpatient stay Substantial Risk for: rapid decompensation
[2022-05-05 15:46] LABS: Neut%MD 54.7 %; Neutrophils Absolute Auto 4.9 x10*3/uL (2.0-8.3)
[2022-05-05] MEDS: cloZAPine 100 MG TABLET 350 MG PO (15:59)
[2022-05-05 18:00] VITALS: BP 131/77; PULSE 100; RESP 18; TEMP 36.6; O2SAT 98
[2022-05-05] MEDS: Benztropine Mesylate 0.5 MG TABLET PO (21:30)
--- NOTE | 2022-05-06 12:16 | P.PNPSI_ITS ---
Subjective Subjective Date of Service: 05/06/22 Reason For Visit: schizoaffective Interim History: no significant issues. Declined to engage in full interview. Watching television. Reports he is looking forward to discharge after the weekend. Sleep good. No medication concerns. Medication Compliance: Yes Side effects from medications: No Attending Groups: Intermittent Review of Systems Acute medical concerns: No Review of Systems Review of Systems Unremarkable Mental Status Exam Mental Status Exam Narrative: watching television. Minimal engagement. No agitation no. Denies depression SI HI. No overt psychosis. Insight and judgment improved Diagnostics Vital Signs (24Hr): Vital Signs - 24 hr 05/05/22 18:00 Temperature 98 F Pulse Rate 100 Respiratory Rate 18 Blood Pressure 131/77 Pulse Oximetry 98 Oxygen Delivery Method Room Air BMI result Body Mass Index 36.1 Labs Results: 05/04/22 12:16 Labs: Laboratory Results - last 48 hr 05/04/22 05/05/22 12:16 15:26 WBC 7.4 RBC 5.35 Hgb 15.2 Hct 43.9 MCV 82.1 MCH 28.4 MCHC 34.6 RDW 12.0 Plt Count 280 MPV 9.9 Immature Gran % (Auto) 0.4 Neut % (Auto) 48.4 Lymph % (Auto) 41.8 H [place] % (Auto) 6.3 Eos % (Auto) 2.7 Baso % (Auto) 0.4 Lymph # (Auto) 3.1 [place] # (Auto) 0.5 Eos # (Auto) 0.2 Baso # (Auto) 0.0 Abs Immat Gran (auto) 0.03 Absolute Neuts (auto) 3.6 4.9 Absolute Nucleated RBC 0.000 Nucleated RBC % (auto) 0.0 Medications Medications Current Medications Acetaminophen (Acetaminophen 325 Mg Tablet) 650 mg PO Q6H PRN PRN Reason: Headache/Pain Mild Scale (1-3) Last Admin: 03/03/22 22:41 Dose: 650 mg Al Hydroxide/Mg Hydroxide (Magnesium Hydrox/Alum Hydrox 30 Ml Oral.Susp) 30 ml PO Q6H PRN PRN Reason: Heartburn/Nausea Albuterol Sulfate (Albuterol Sulfate 90 Mcg 8 Gm Inhaler) 2 puff INHALE RQ4H PRN PRN Reason: Shortness Of Breath Benztropine Mesylate (Benztropine Mesylate 0.5 Mg Tablet) 0.5 mg PO BEDTIME JOE Last Admin: 05/05/22 21:30 Dose: 0.5 mg Clonidine HCl (Clonidine Hcl 0.1 Mg Tablet) 0.1 mg PO TID PRN; Protocol PRN Reason: hyperarousal Last Admin: 02/28/22 21:47 Dose: 0.1 mg Clozapine (Clozapine 100 Mg Tablet) 350 mg PO DAILY@1700 JOE Last Admin: 05/05/22 15:59 Dose: 350 mg Diphenhydramine HCl (Diphenhydramine Hcl 25 Mg Tablet) 50 mg PO Q4H PRN PRN Reason: agitation Haloperidol (Haloperidol 5 Mg Tablet) 10 mg PO Q4H PRN PRN Reason: agitation Last Admin: 04/03/22 22:17 Dose: 10 mg Haloperidol Lactate (Haloperidol Lactate 5 Mg/Ml Vial) 10 mg IM DAILY PRN PRN Reason: if refuses PO Hydroxyzine HCl (Hydroxyzine Hcl 25 Mg Tablet) 25 mg PO Q6H PRN PRN Reason: Anxiety Last Admin: 04/27/22 21:11 Dose: 25 mg Lidocaine HCl (Lidocaine 4 % Cream Kit) 1 appl TOPICAL DAILY PRN; Protocol PRN Reason: prophylactiinjection site pain Magnesium Hydroxide (Milk Of Magnesia 30 Ml Oral.Susp) 30 ml PO DAILY PRN PRN Reason: Constipation Trazodone HCl (Trazodone Hcl 50 Mg Tablet) 50 mg PO BEDTIME PRN PRN Reason: Insomnia Allergies Allergies Allergy/AdvReac Type Severity Reaction Status Date / Time No Known Allergies Allergy Verified 02/19/22 03:39 [No Known Allergies*] Assessment & Plan Assessment & Plan (1) Schizophrenia, paranoid, chronic with acute exacerbation: Status: Acute Code(s): F20.0 - Paranoid schizophrenia Plan HPI: Nura is a 26 y.o. male who carries a dx of paranoid schizophrenia. Hx of AH, has fixed delusion of believing neighbors are talking about him. Has DMH and ACCS services through [facility]. No Catarino's order. Hx of med non-adherence upon discharge.? 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 He has a hx of multiple inpatient admissions, including 1 about a month ago with very similar presentation, refusing to take meds, asking for discharge and whit med safe to return to the community. He has been re[place]present[place] [facility] [place] being discharged with the same presentation, not dangerous, but asking for help and then refusing treatment wanting discharge. He continues to have auditory hallucinations about his neighbor.?Initially, he has not expressed any delusional concerns that his neighbor is going to hurt him, just that his neighbors talking about him and so considered discharge.?However, Patient soon expressed concerns that his neighbors are plotting to harm him and that he is prepared to harm them back if he needs to defend himself.? As patient has presented several times to the emergency room in between admissions he is demonstrating that he is struggling to function in the community.? He has an extensive history of medication noncompliance. He has chronic paranoid delusions and auditory hallucinations that his neighbors are going to hurt him which intermittently expand to thoughts about preparing to defend himself.? Will continue treatment however, given his long hx of refractory psychosis, no insight and poor adherence with medication, team agrees that patient needs a more long-term admission to stabilize to the point where he could successfully live in the community.? During this admission, patient has significantly improved on clozapine.? He remains so without Haldol and Depakote which have both been discontinued.? He is pleasant and friendly.? Auditory hallucinations are either absent or minimal.? He remains without insight and worries that the voices of his neighbor will return once he goes back home, not understanding that these are auditory hallucinations associated with a psychiatric illness and to that and he will likely continually struggle with medication adherence; thus patient's stability in the community will directly correlate with the effectiven ess of outpatient services.? Patient has complained of sexual side effects from clozapine however it is unclear to what extent as patient is a very limited historian; also this topic is come up during past admissions on other medications and it is not clear if it is medication related. PLAN: Section 8b Patient Civil Committed and substituted judgment for medications ordered. Dispostion: Once patient has ACCS services fully established will discharge home; otherwise without extensive community supportive services, patient will quickly decompensate Medication plan:? Trial of clozapine; overlap Haldol/Depak (minimally helpful) for now; goal to see if clozapine can be effective alone Clozapine? 325mg at DINNER time to mitigate daytime tiredness (to help with adherence; was split dosing) CANNOT REFUSE; COURT ORDERED; GIVE HALDOL 5MG IF REFUSES -patient has improved significantly so will leave at this dose for now so as to avoid risk of side-effects ANC 2.6 on 04/27/22 ANC weekly RESTART Benztropine Mesylate (Benztropine Mesylate 0.5 Mg Tablet)? 0.5 mg PO qHS; patient developed dystonic reaction when discontinued Continue Clonidine HCl (Clonidine Hcl 0.1 Mg Tablet)? 0.1 mg PO TID PRN Reason: hyperarousal Continue Trazodone HCl? 50 mg PO BEDTIME PRN Insomnia Continue Hydroxyzine HCl (Hydroxyzine Hcl 25 Mg Tablet)? 25 mg PO Q6H PRN Anxiety DISCONTINUED Divalproex ER 1000 mg PO QHS on 03/26; patient has been refusing it and since goal is to see if monotherapy with clozapine can work, will just discontinue it for now; patient does not have history of bipolar disorder or manic episodes and this medication was used with only limited success for behavioral issues. DISCONTINUED Haloperidol (was 10 mg BID; patient refuses; at this point might as well see if clozapine by itself can be effective as Haldol has only ever Seemed to be minimally helpful and it's not worth forcing an IM) DISCONTINUED Quetiapine qhs; pt does not want for day to day events (see below)... HOSPITAL COURSE 02/24: Ct treatment plan 02/25: Ct Rx plan. May need committment. Lacks insight and is non compliant with meds. 02/26: Pt adamantly does not want to increase haldol or depakote. Will start seroquel 300 mg QHS for sx of psychotic depression, has not had adequate trial on seroquel. May help with poor sleep. 02/27: Pt has been refusing all meds; AH complaints but denies any SI/HI and his demonstrate safe behaviors on the unit 02/28 retracted 3 day, remains preoccupied with auditory hallucinations of his neighbors and delusional thoughts that his neighbors are persecuting him agrees to stay for treatment; considering clozapine 03/01 Angry and demanding discharge and 3 day notice placed; difficult to engage; no insight.? Refused morning dose of Haldol.? At said he is taking clozapine before and resisted reality testing; however said will still consider 03/02 patient willingly taking clozapine 03/06 patient intermittently takes clozapine; he is disorganized in behavior and thought, intermittently yelling and accusing staff and posturing and threatening staff.? Patient struggles to understand that his rent is paid for; while talking about a specific topic, patient will intermittently respond with a disorganized irrelevant answer.? Patient has failed monotherapy with Seroquel, Palliperidone, Risperdal and Haldol.? Will continue to titrate clozapine as patient is willing to see if this can be effective.? Patient has a 3 day notice due today 03/06/2022.? Team finds that patient is unstable and not safe to return the community as he has ongoing auditory hallucinations and paranoid delusional thoughts that about his neighbors plotting to hurt him.? Will file for Civil commitment; also discussed is that patient may need long-term admission to better establish stability. 03/08 patient disorganized; refused labs making it difficult to titrate clozapine.? Will continue to trying get patient to allow labs 03/09 remains disorganized, sometimes adhering to treatment other times refusing it without any clear pattern.? Patient is not amenable to logical explanation and his engagement in tx is unpredictable making dosing with Clozapine (and depakote) difficult as it requires periodic blood work and controlled titration.? However, Will continue with attempts at clozapine since this seems to be best option for patient to become stabilized 03/10 remains disorganized; won't engage; continues to have AH 03/13 CIVIL COMMITMENT AND SUBSTITUTED JUDGMENT ORDERED 03/16 continue current tx plan 03/19 Patient has moments of insight but quickly descends back into struggles with paranoia, disorganized thinking, thinking AH are real. Patient struggles with taking medication are difficult to predict.?Today he said I feel good, why would it take medication? despite that during the same conversation he also said that he continues to hear his neighbors say mad crap And if they come after him something will happen. 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 Thus, will lower Depakote to a 1000 mg q.h.s. With cloza pine, it may be easier for patient to tolerate single dosing so will see if moving the entire dose to bedtime helps with adherence rather than being asked to take medications twice a day.? That said, sometimes patient wakes up in the morning and demands his morning medications so it is difficult to know The best way to mitigate his his anxiety around this issue. 03/26 patient has been refusing Depakote; since he does not have history of bipolar disorder manic episodes and this medication has had limited effect, will just discontinue for now and move forward with seen of clozapine can be effecti ve on its own; will also DC Haldol Since patient refuses; at this point might as well see if clozapine by itself can be effective as Haldol has only ever Seemed to be minimally helpful. 03/27 denies auditory hallucinations but remains without any insight and saying that he will not take medications when he goes home because he is good. 03/28 Patient vacillates between being irritable and calm; sometimes he says he will take his medications when he goes home other times he says he is doing fine and does not need it. It is not clear if patient still hears auditory hallucinations or if they have resolved as his reporting is inconsistent. It remains necessary for patient to go to a long-term facility for continued medication management and to have a longer time without symptoms. 04/04 (not 04/05) patient overall more calm and excepting of being on the unit, waiting for further stabilization and outpatient services to be set up before returning to the community; does not want to go to [facility].? Patient's improvement is despite the fact that both Haldol and Depakote have been discontinued; off these medications he is less sedated and up earlier in the day.? Patient denies auditory hallucinations.? Intermittently he can accept that AH has resolved due to medication, but he does not have insight into presence of psychiatric disorder and need for ongoing treatment even when feeling stable.? That said, it is not clear that increasing doses of Clozaril would resolve this impaired insight; his improved presentation and desire to avoid side effects gives pause to further titrating clozapine.? Will leave here for now and monitor.? The remains significant concern the patient would discontinue his medications on discharge and team continues to agree that he needs a prolonged experience of being symptom free to connect his ongoing need for medication. 04/09 no changes 04/12 remains stable; staff discussed and think that patient is likely close to maximum benefit from clozapine so will keep at current dose for now. Concern is that any increase could cause side effects which would be a barrier to patient continue medication on discharge 04/16 Patient remains is stable Tried to discuss sexual side effects of medication but patient was very vague and it is on conclusive; other staff reports that this topic is come up in the past make it less likely related to clozapine 04/19 no changes 04/20 successful meeting today with ACCS; remains calm and pleasant 04/23 remains stable and likely at baseline; will discontinue Cogentin since patient has no history of EPS and is now only on clozapine which has low EPS risk; fiction and nonfiction prose writer discussed with nursing who will monitor for symptoms. 04/24 patient got dystonia with stiff neck which was relieved with Cogentin. Animated Cartoons Painter will reorder as scheduled; good meeting with [facility] worker 04/27 No changes to treatment team, pt denies dystonia 04/28: no change - continue treatment plan 04/29 no change - continue treatment plan 05/02 remains stable. Waiting to complete wraparound services so the patient can be stable in the community. Will then discharge. 05/06/2022: No changes to current plan. MED Trials: Seroquel Palliperidone Risperdal Haldol I spent minutes with the patient and/or on the patient floor today, greater than?50% of which was spent counseling/coordinating care. Reason for contiued inpatient stay Substantial Risk for: rapid decompensation
[2022-05-06] MEDS: cloZAPine 100 MG TABLET 350 MG PO (17:29)
[2022-05-06 18:00] VITALS: BP 86/62; PULSE 87; RESP 18; TEMP 36.2; O2SAT 98
[2022-05-06] MEDS: Benztropine Mesylate 0.5 MG TABLET PO (22:32)
[2022-05-07] MEDS: cloZAPine 100 MG TABLET 350 MG PO (15:45)
--- NOTE | 2022-05-07 16:04 | HO.PSYCHPN ---
Subjective Subjective Date of Service: 05/07/22 Reason For Visit: schizoaffective Interim History: no significant issues. Reports he is looking forward to discharge after the weekend. Mood good. Sleep ok. No medication concerns. No psychosis Medication Compliance: Yes Side effects from medications: No Attending Groups: Intermittent Review of Systems Acute medical concerns: No Review of Systems Review of Systems Unremarkable Mental Status Exam Mental Status Exam Narrative: Pleasant. Minimal engagement. No agitation no. Denies depression SI HI. No overt psychosis. Insight and judgment improved Diagnostics Vital Signs (24Hr): Vital Signs - 24 hr 05/06/22 18:00 Temperature 97.1 F Pulse Rate 87 Respiratory Rate 18 Blood Pressure 86/62 L Pulse Oximetry 98 Oxygen Delivery Method Room Air BMI result Body Mass Index 36.1 Labs Results: 05/04/22 12:16 Medications Medications Current Medications Acetaminophen (Acetaminophen 325 Mg Tablet) 650 mg PO Q6H PRN PRN Reason: Headache/Pain Mild Scale (1-3) Last Admin: 03/03/22 22:41 Dose: 650 mg Al Hydroxide/Mg Hydroxide (Magnesium Hydrox/Alum Hydrox 30 Ml Oral.Susp) 30 ml PO Q6H PRN PRN Reason: Heartburn/Nausea Albuterol Sulfate (Albuterol Sulfate 90 Mcg 8 Gm Inhaler) 2 puff INHALE RQ4H PRN PRN Reason: Shortness Of Breath Benztropine Mesylate (Benztropine Mesylate 0.5 Mg Tablet) 0.5 mg PO BEDTIME [facility] Last Admin: 05/06/22 22:32 Dose: 0.5 mg Clonidine HCl (Clonidine Hcl 0.1 Mg Tablet) 0.1 mg PO TID PRN; Protocol PRN Reason: hyperarousal Last Admin: 02/28/22 21:47 Dose: 0.1 mg Clozapine (Clozapine 100 Mg Tablet) 350 mg PO DAILY@1700 [facility] Last Admin: 05/07/22 15:45 Dose: 350 mg Diphenhydramine HCl (Diphenhydramine Hcl 25 Mg Tablet) 50 mg PO Q4H PRN PRN Reason: agitation Haloperidol (Haloperidol 5 Mg Tablet) 10 mg PO Q4H PRN PRN Reason: agitation Last Admin: 04/03/22 22:17 Dose: 10 mg Haloperidol Lactate (Haloperidol Lactate 5 Mg/Ml Vial) 10 mg IM DAILY PRN PRN Reason: if refuses PO Hydroxyzine HCl (Hydroxyzine Hcl 25 Mg Tablet) 25 mg PO Q6H PRN PRN Reason: Anxiety Last Admin: 04/27/22 21:11 Dose: 25 mg Lidocaine HCl (Lidocaine 4 % Cream Kit) 1 appl TOPICAL DAILY PRN; Protocol PRN Reason: prophylactiinjection site pain Magnesium Hydroxide (Milk Of Magnesia 30 Ml Oral.Susp) 30 ml PO DAILY PRN PRN Reason: Constipation Trazodone HCl (Trazodone Hcl 50 Mg Tablet) 50 mg PO BEDTIME PRN PRN Reason: Insomnia Allergies Allergies Allergy/AdvReac Type Severity Reaction Status Date / Time No Known Allergies Allergy Verified 02/19/22 03:39 [No Known Allergies*] Assessment & Plan Assessment & Plan (1) Schizophrenia, paranoid, chronic with acute exacerbation: Status: Acute Code(s): F20.0 - Paranoid schizophrenia Plan HPI: Nura is a 26 y.o. male who carries a dx of paranoid schizophrenia. Hx of , has fixed delusion of believing neighbors are talking about him. Has DMH and ACCS services through [facility]. No Catarino's order. Hx of med non-adherence upon discharge.? Patient has been repeatedly coming to the emergency room asking for help with auditory hallucinations Formulation: dx Schizophrenia, paranoid type [employer] Therapist discussed case with colleagues who have worked with patient in the past and also with staff on the unit for current admission. He has a hx of multiple inpatient admissions, including 1 about a month ago with very similar presentation, refusing to take meds, asking for discharge and deemed safe to return to the community. He has been re-presenting to [facility] after being discharged with the same presentation, not dangerous, but asking for help and then refusing treatment wanting discharge. He continues to have auditory hallucinations about his neighbor.?Initially, he has not expressed any delusional concerns that his neighbor is going to hurt him, just that his neighbors talking about him and so considered discharge.?However, Patient soon expressed concerns that his neighbors are plotting to harm him and that he is prepared to harm them back if he needs to defend himself.? As patient has presented several times to the emergency room in between admissions he is demonstrating that he is struggling to function in the community.? He has an extensive history of medication noncompliance. He has chronic paranoid delusions and auditory hallucinations that his neighbors are going to hurt him which intermittently expand to thoughts about preparing to defend himself.? Will continue treatment however, given his long hx of refractory psychosis, no insight and poor adherence with medication, team agrees that patient needs a more long-term admission to stabilize to the point where he could successfully live in the community.? During this admission, patient has significantly improved on clozapine.? He remains so without Haldol and Depakote which have both been discontinued.? He is pleasant and friendly.? Auditory hallucinations are either absent or minimal.? He remains without insight and worries that the voices of his neighbor will return once he goes back home, not understanding that these are auditory hallucinations associated with a psychiatric illness and to that and he will likely continually struggle with medication adherence; thus patient's stability in the community will directly correlate with the effectiveness of outpatient services.? Patient has complained of sexual side effects from clozapine however it is unclear to what extent as patient is a very limited historian; also this topic is come up during past admissions on other medications and it is not clear if it is medication related. PLAN: Section 8b Patient Civil Committed and substituted judgment for medications ordered. Dispostion: Once patient has ACCS services fully established will discharge home; otherwise without extensive community supportive services, patient will quickly decompensate Medication plan:? Trial of clozapine; overlap Haldol/Depak (minimally helpful) for now; goal to see if clozapine can be effective alone Clozapine? 325mg at DINNER time to mitigate daytime tiredness (to help with adherence; was split dosing) CANNOT REFUSE; COURT ORDERED; GIVE HALDOL 5MG IF REFUSES -patient has improved significantly so will leave at this dose for now so as to avoid risk of side-effects ANC 2.6 on 04/27/22 ANC weekly RESTART Benztropine Mesylate (Benztropine Mesylate 0.5 Mg Tablet)? 0.5 mg PO qHS; patient developed dystonic reaction when discontinued Continue Clonidine HCl (Clonidine Hcl 0.1 Mg Tablet)? 0.1 mg PO TID PRN Reason: hyperarousal Continue Trazodone HCl? 50 mg PO BEDTIME PRN Insomnia Continue Hydroxyzine HCl (Hydroxyzine Hcl 25 Mg Tablet)? 25 mg PO Q6H PRN Anxiety DISCONTINUED Divalproex ER 1000 mg PO QHS on 03/26; patient has been refusing it and since goal is to see if monotherapy with clozapine can work, will just discontinue it for now; patient does not have history of bipolar disorder or manic episodes and this medication was used with only limited success for behavioral issues. DISCONTINUED Haloperidol (was 10 mg BID; patient refuses; at this point might as well see if clozapine by itself can be effective as Haldol has only ever Seemed to be minimally helpful and it's not worth forcing an IM) DISCONTINUED Quetiapine qhs; pt does not want for day to day events (see below)... HOSPITAL COURSE 02/24: Ct treatment plan 02/25: Ct Rx plan. May need committment. Lacks insight and is non compliant with meds. 02/26: Pt adamantly does not want to increase haldol or depakote. Will start seroquel 300 mg QHS for sx of psychotic depression, has not had adequate trial on seroquel. May help with poor sleep. 02/27: Pt has been refusing all meds; AH complaints but denies any SI/HI and his demonstrate safe behaviors on the unit 02/28 retracted 3 day, remains preoccupied with auditory hallucinations of his neighbors and delusional thoughts that his neighbors are persecuting him agrees to stay for treatment; considering clozapine 03/01 Angry and demanding discharge and 3 day notice placed; difficult to engage; no insight.? Refused morning dose of Haldol.? At said he is taking clozapine before and resisted reality testing; however said will still consider 03/02 patient willingly taking clozapine 03/06 patient intermittently takes clozapine; he is disorganized in behavior and thought, intermittently yelling and accusing staff and posturing and threatening staff.? Patient struggles to understand that his rent is paid for; while talking about a specific topic, patient will intermittently respond with a disorganized irrelevant answer.? Patient has failed monotherapy with Seroquel, Palliperidone, Risperdal and Haldol.? Will continue to titrate clozapine as patient is willing to see if this can be effective.? Patient has a 3 day notice due today 03/06/2022.? Team finds that patient is unstable and not safe to return the community as he has ongoing auditory hallucinations and paranoid delusional thoughts that about his neighbors plotting to hurt him.? Will file for Civil commitment; also discussed is that patient may need long-term admission to better establish stability. 03/08 patient disorganized; refused labs making it difficult to titrate clozapine.? Will continue to trying get patient to allow labs 03/09 remains disorganized, sometimes adhering to treatment other times refusing it without any clear pattern.? Patient is not amenable to logical explanation and his engagement in tx is unpredictable making dosing with Clozapine (and depakote) difficult as it requires periodic blood work and controlled titration.? However, Will continue with attempts at clozapine since this seems to be best option for patient to become stabilized 03/10 remains disorganized; won't engage; continues to have AH 03/13 CIVIL COMMITMENT AND SUBSTITUTED JUDGMENT ORDERED 03/16 continue current tx plan 03/19 Patient has moments of insight but quickly descends back into struggles with paranoia, disorganized thinking, thinking AH are real. Patient struggles with taking medication are difficult to predict.?Today he said I feel good, why would it take medication? despite that during the same conversation he also said that he continues to hear his neighbors say mad crap And if they come after him something will happen. The Hope is that clozapine as a monotherapy will be sufficient; bond underwriter discussed case with patient's past inpatient provider and there is no history of bipolar/manic episodes and Depakote only used for impulsivity/anger.? Thus, will lower Depakote to a 1000 mg q.h.s. With clozapine, it may be easier for patient to tolerate single dosing so will see if moving the entire dose to bedtime helps with adherence rather than being asked to take medications twice a day.? That said, sometimes patient wakes up in the morning and demands his morning medications so it is difficult to know The best way to mitigate his his anxiety around this issue. 03/26 patient has been refusing Depakote; since he does not have history of bipolar disorder manic episodes and this medication has had limited effect, will just discontinue for now and move forward with seen of clozapine can be effective on its own; will also DC Haldol Since patient refuses; at this point might as well see if clozapine by itself can be effective as Haldol has only ever Seemed to be minimally helpful. 03/27 denies auditory hallucinations but remains without any insight and saying that he will not take medications when he goes home because he is good. 03/28 Patient vacillates between being irritable and calm; sometimes he says he will take his medications when he goes home other times he says he is doing fine and does not need it. It is not clear if patient still hears auditory hallucinations or if they have resolved as his reporting is inconsistent. It remains necessary for patient to go to a long-term facility for continued medication management and to have a longer time without symptoms. 04/04 (not 04/05) patient overall more calm and excepting of being on the unit, waiting for further stabilization and outpatient services to be set up before returning to the community; does not want to go to [facility].? Patient's improvement is despite the fact that both Haldol and Depakote have been discontinued; off these medications he is less sedated and up earlier in the day.? Patient denies auditory hallucinations.? Intermittently he can accept that AH has resolved due to medication, but he does not have insight into presence of psychiatric disorder and need for ongoing treatment even when feeling stable.? That said, it is not clear that increasing doses of Clozaril would resolve this impaired insight; his improved presentation and desire to avoid side effects gives pause to further titrating clozapine.? Will leave here for now and monitor.? The remains significant concern the patient would discontinue his medications on discharge and team continues to agree that he needs a prolonged experience of being symptom free to connect his ongoing need for medication. 04/09 no changes 04/12 remains stable; staff discussed and think that patient is likely close to maximum benefit from clozapine so will keep at current dose for now. Concern is that any increase could cause side effects which would be a barrier to patient continue medication on discharge 04/16 Patient remains is stable Tried to discuss sexual side effects of medication but patient was very vague and it is on conclusive; other staff reports that this topic is come up in the past make it less likely related to clozapine 04/19 no changes 04/20 successful meeting today with ACCS; remains calm and pleasant 04/23 remains stable and likely at baseline; will discontinue Cogentin since patient has no history of EPS and is now only on clozapine which has low EPS risk; bond underwriter discussed with nursing who will monitor for symptoms. 04/24 patient got dystonia with stiff neck which was relieved with Cogentin. [employer] Manual [employer] Therapist will reorder as scheduled; good meeting with [facility] worker 04/27 No changes to treatment team, pt denies dystonia 04/28: no change - continue treatment plan 04/29 no change - continue treatment plan 05/02 remains stable. Waiting to complete wraparound services so the patient can be stable in the community. Will then discharge. 05/07/2022: No changes to current plan. MED Trials: Seroquel Palliperidone Risperdal Haldol I spent minutes with the patient and/or on the patient floor today, greater than?50% of which was spent counseling/coordinating care. Reason for contiued inpatient stay Substantial Risk for: rapid decompensation
[2022-05-07 18:00] VITALS: BP 134/78; PULSE 74; RESP 16; TEMP 36.5
[2022-05-07] MEDS: hydrOXYzine HCL 25 MG TABLET PO (21:19)
[2022-05-07] MEDS: Benztropine Mesylate 0.5 MG TABLET PO (21:20)
[2022-05-08 06:00] VITALS: BP 132/82; PULSE 78; RESP 18; TEMP 36.5; O2SAT 97
--- NOTE | 2022-05-08 11:06 | PM.PSYDC ---
DS: Providers Provider Date of Service: 05/08/22 Date of admission: 02/22/22 19:02 Date of discharge: 05/08/22 Primary care physician: Unknown Physician Admitting clinician: Salma Ochoa Attending physician on discharge: Pedro Zavaleta DS: Diagnosis Discharge Diagnosis (1) Schizophrenia, paranoid, chronic with acute exacerbation: Status: Acute DS: Medications Discharge Medications Home Medications: Previous Rx's Medication Instructions Recorded albuterol sulfate 90 mcg/actuation 2 puff PO Q4H PRN dyspnea 30 days 05/08/22 aerosol inhaler (Ventolin HFA) #6.7 grams benztropine 0.5 mg tablet 0.5 mg PO BEDTIME 30 days #30 tabs 05/08/22 clozapine 100 mg tablet 350 mg PO DAILY@1700 30 days #105 05/08/22 tabs Mental Status Exam Mental Status Exam Narrative: Pt is alert and oriented; behavior, calm and cooperative; dressed in casual attire, wearing casual cloths, adequately groomed and with adequate hygiene; mood pleasant; affect congruent; eye contact adequate, appropriate; Speech is normal rate, normal volume; normal prosody; no intermittent psychomotor agitation; thought process goal oriented; Thought content is on discharge; no paranoid delusional worries expressed; Denies SI/HI. denies AH;? Patients insight and judgment are impaired but have improved, possibly beyond baseline. Data Data Completed and Pending Completed studies during hospitalization [Text1]: 05/04/22 05/04/22 05/05/22 12:16 12:16 15:26 WBC 7.4 RBC 5.35 Hgb 15.2 Hct 43.9 MCV 82.1 MCH 28.4 MCHC 34.6 RDW 12.0 Plt Count 280 MPV 9.9 Immature Gran % (Auto) 0.4 Neut % (Auto) 48.4 Lymph % (Auto) 41.8 H Cook % (Auto) 6.3 Eos % (Auto) 2.7 Baso % (Auto) 0.4 Lymph # (Auto) 3.1 Cook # (Auto) 0.5 Eos # (Auto) 0.2 Baso # (Auto) 0.0 Abs Immat Gran (auto) 0.03 Absolute Neuts (auto) 3.6 4.9 Absolute Nucleated RBC 0.000 Nucleated RBC % (auto) 0.0 Clozapine Pending Norclozapine Pending DS: Summary Hospital Course Hospital Course: HPI: Nura is a 26 y.o. male who carries a dx of paranoid schizophrenia. Hx of AH, has fixed delusion of believing neighbors are talking about him. Has DMH and ACCS services through [facility]. No Catarino's order. Hx of med non-adherence upon discharge.? Patient has been repeatedly coming to the emergency room asking for help with auditory hallucinations Formulation: dx Schizophrenia, paranoid type He has a hx of multiple inpatient admissions, including 1 about a month ago with very similar presentation, refusing to take meds, asking for discharge and deemed safe to return to the community. He has been re-presenting to [facility] ED after being discharged with the same presentation (showing that he is unable to function on his own in the community) asking for help but then refusing treatment wanting discharge. He has an extensive history of medication noncompliance and chronic paranoid delusions and auditory hallucinations that his neighbors are going to hurt him which intermittently expand to thoughts about preparing to defend himself.? On this admission, he again reported AH of his neighbor and feels threatened.?During admission, Patient expressed concerns that his neighbors are plotting to harm him and patient said he is prepared to harm them back if he needs to defend himself. Patient was restarted on Depakote and Haldol which he has been on in the past but has only seem to be moderately helpful and quite sedating to patient, with him typically not waking up until late in the afternoon. Patient was willing to take medications but said he was fine and wanted to discharge home, signing a 3 day notice and irritable when not discharged, saying he had to go home and pay rent. Case thoroughly discussed with treatment team as well as other staff who know patient well. Given his long hx of refractory psychosis, no insight, poor adherence with medication and continued chronic struggles functioning on his own in the community, team agrees that patient needs a longer-term admission to stabilize and to have ACCS wrap-around services if he were to become able to successfully live in the community.? Court was petition and patient ordered for involuntary commitment and substituted judgment regarding medications. Patient was started on clozapine which was titrated to a therapeutic dose which proved effective for patient. Auditory hallucinations fully resolved and patient did not have any paranoid thoughts or feel the need to defend himself. Patient was pleasant, calm, engaged, appropriate with peers and staff and even became able to tolerate having a roommate, something that has never happened on past admissions. Patient was doing well enough that both Depakote and Haldol were tapered off and discontinued. Patient continued to do well and now, off these meds, was no longer feeling sedated and instead would be up around morning time. Early on, patient was very worried about his rent and could not seem to accept that this was being taking care of and would ask staff about it multiple times a day; however this concern also evaporated as patient continued to progress. Team had sent application which was accepted to [facility] however while waiting for a bed there, social Work was able to engage with [facility] services and set up patient with a VNCharly, a dependency case manager whom patient met several times on the unit prior to discharge. Patient remained with limited insight; sometimes he understood he needed to continue taking medication to keep the voices away, other times he did not understand this. However numerous staff who know patient well and over several years reported that this was the best they had ever seen him. He said he would continue to remain on medication and agreed to getting fingersticks (ANC was able to be done with fingersticks rather CBC/blood draw) weekly for medication monitoring. Patient remained in a good mood, pleasantly interacting with staff, without AH or paranoid worries. He was grateful that he was able to avoid going to [facility] in the counted the days to discharge so he can go home. Patient was now established with strong community support and was not in imminent risk for harm to self or others. His request for discharge honored. Regarding medications, he overall tolerated the medication well and ANC's remained WNL. Patient was briefly tried off benztropine however did get a dystonic reaction so it was restarted. At different points he did complain of sexual side effects from clozapine however it is unclear to what extent as patient is a very limited historian; patient has reported this before, during past admissions when on other medications and given patient's limitations and read a since, it was never able to be determined if this was truly medication related or if this issue was also present during times when off medications. It was discussed with patient that it is possible this could be medication related but patient did not asked to be taken off medications. Because he was finally stable he was continued on current dose and this issue left for him to discuss further with outpatient providers. Time spent discussing smoking cessation with patient: 3 to 10 minutes Status at Discharge Functional status at discharge: independent ambulation Overall status at discharge: patient is back to baseline Time Spent with Patient Time attestation: Total time spent providing and/or coordinating discharge services: Time spent: Less than 30 minutes Discharge Plan Discharge Patient Disposition: Home, Self-Care Discharge Diagnosis: schizophrenia, paranoid type Referrals: Psychiatry: Dr. Ankush Hartman [Other] - 05/16/22 2:00 pm (This is an in-office appointment) Primary Care Physician: Dr. Stover [Other] - 05/16/22 9:45 am (This appointment is in-person) TIM GRIGGS RN [Other] - 1 Week (FAX [phone]) [facility] ACCS: Randee Ontiveros [Other] - 1 Week [facility]: Marylu Jc [Other] - 1 Week Discharge Medications: New clozapine 100 mg Tablet 350 mg PO DAILY@1700 30 Days Qty: 105 0RF Continued benztropine 0.5 mg Tablet 0.5 mg PO BEDTIME 30 Days Qty: 30 0RF albuterol sulfate [Ventolin HFA] 90 mcg/actuation HFA aerosol inhaler 2 puff PO Q4H PRN (Reason: dyspnea) 30 Days Qty: 6.7 0RF Discontinued haloperidol 5 mg Tablet 5 mg PO BEDTIME 30 Days Qty: 30 0RF divalproex 500 mg Tablet Extended Release 24 Hr 500 mg PO BEDTIME 30 Days Qty: 30 0RF Discharge Orders: Discharge Order (Routine); Ordered 05/08/22 Ordered By: Pedro Zavaleta Diet: Regular diet Activity on Discharge: As tolerated Stand Alone Forms: Patient Portal Discharge page, Community Support Other Ambulatory Orders: Absolute Neutrophil Count (QWEEK) Timeframe: [id number] Facility: [facility] - Location: Laboratory Ordered By: Pedro Zavaleta Absolute Neutrophil Count (QWEEK) Timeframe: [id number] Facility: [facility] - Location: Laboratory Ordered By: Pedro Zavaleta Absolute Neutrophil Count (QWEEK) Timeframe: [id number] Facility: [facility] - Location: Laboratory Ordered By: Pedro Meghann Absolute Neutrophil Count (QWEEK) Timeframe: [id number] Facility: [facility] - Location: Laboratory Ordered By: Pedro Meghann Absolute Neutrophil Count (QWEEK) Timeframe: [id number] Facility: [facility] - Location: Laboratory Ordered By: Pedro Meghann Absolute Neutrophil Count (QWEEK) Timeframe: [id number] Facility: [facility] - Location: Laboratory Ordered By: Pedro Meghann Absolute Neutrophil Count (QWEEK) Timeframe: [id number] Facility: [facility] - Location: Laboratory Ordered By: Pedro Meghann Absolute Neutrophil Count (QWEEK) Timeframe: [id number] Facility: [facility] - Location: Laboratory Ordered By: Pedro Meghann Absolute Neutrophil Count (QWEEK) Timeframe: [id number] Facility: [facility] - Location: Laboratory Ordered By: Pedro Meghann Absolute Neutrophil Count (QWEEK) Timeframe: [id number] Facility: [facility] - Location: Laboratory Ordered By: Pedro Meghann Absolute Neutrophil Count (QWEEK) Timeframe: [id number] Facility: [facility] - Location: Laboratory Ordered By: Pedro Meghann Care Plan Goals: Maintain mood and safe behaviors Take medications as prescribed *Get Finger Stick for ANC every Saturday for the next 3 months; then can get Finger Stick every 2 weeks. Practice coping skills Continue with outpatient providers and reach out to them as needed Health Concerns: Mood stability and hearing voices Plan of Treatment: Follow up with your PCP, psychiatric provider and other outpatient providers regarding above concerns Take medications as prescribed Assessment: Risk assessment at time of discharge:? Patient was interviewed prior to discharge and found to be fully oriented and without any SI or HI. Patient has insight and demonstrates good judgment in terms of wanting to pursue treatment. Patient is not in imminent risk of harm to self or others and has a safety plan that includes presenting to the closest ER or calling 911 if feeling unsafe.? Patient has been observed closely by nursing and unit staff throughout admission; patient has not engaged in any behaviors that suggest dangerousness to self or others and has demonstrated appropriate behaviors and impulse control Discharge Date/Time: 05/08/22 13:11
[2022-05-08] MEDS: Benztropine Mesylate 0.5 MG TABLET PO (12:44)
[2022-05-08] MEDS: cloZAPine 100 MG TABLET 350 MG PO (12:44)
[2022-05-09 23:12] LABS: Clozapine (Clozaril) 856 mcg/L; Norclozapine 430 mcg/L (25-400)
== END 2022-05-08 13:11 | disposition home or self-care (01) | DRG 885 ==
LOC: HO.ED 05:30 → HO.PM5 19:55
PROVIDERS: Social Worker; Admitting Provider Registered Nurse; Emergency Provider Internal Medicine; Visit Provider Psychiatry & Neurology Psychiatry
DX: F20.0 Paranoid schizophrenia (principal); Z20.822 Contact with and (suspected) exposure to COVID-19; Z91.14 Patient's other noncompliance with medication regimen; Z87.891 Personal history of nicotine dependence; Z79.899 Other long term (current) drug therapy
CPT/HCPCS: 36415; 80076; 80159; 80164; 80307; 82140; 84484; 85025; 85048; 87635; 93005; 99283; 99284; 99285

== ENCOUNTER 2022-05-11 13:31 | Outpatient (REF) | payer MEDICARE, MEDICAID, SELFPAY ==
[2022-05-11 14:04] LABS: Neut%MD 54.7 %; Neutrophils Absolute Auto 3.7 x10*3/uL (2.0-8.3); WBCANC 6.8 X10*3/uL
== END 2022-05-11 13:32 | disposition home or self-care (01) ==
LOC: HO.LAB 13:31
PROVIDERS: Psychiatry & Neurology Psychiatry; Visit Provider Colon & Rectal Surgery
DX: Z51.81 Encounter for therapeutic drug level monitoring (principal); Z79.899 Other long term (current) drug therapy
CPT/HCPCS: 36415; 85048

== ENCOUNTER 2022-05-18 13:09 | Outpatient (REF) | payer MEDICARE, MEDICAID, SELFPAY ==
[2022-05-18 13:46] LABS: Neutrophils Absolute Auto 3.8 x10*3/uL (2.0-8.3); WBCANC 6.7 X10*3/uL
== END 2022-05-18 13:10 | disposition home or self-care (01) ==
LOC: HO.LAB 13:09
PROVIDERS: Psychiatry & Neurology Psychiatry; Visit Provider Colon & Rectal Surgery
DX: Z51.81 Encounter for therapeutic drug level monitoring (principal)
CPT/HCPCS: 36415; 85048

== ENCOUNTER 2022-05-25 12:48 | Outpatient (REF) | payer MEDICARE, MEDICAID, SELFPAY ==
[2022-05-25 14:00] LABS: Neut%MD 53.1 %; Neutrophils Absolute Auto 4.1 x10*3/uL (2.0-8.3); WBCANC 7.6 X10*3/uL
== END 2022-05-25 12:49 | disposition home or self-care (01) ==
LOC: HO.LAB 12:48
PROVIDERS: Visit Provider Psychiatry & Neurology Psychiatry
DX: Z51.81 Encounter for therapeutic drug level monitoring (principal); Z79.899 Other long term (current) drug therapy
CPT/HCPCS: 36415; 85048

== ENCOUNTER 2022-06-01 12:50 | Outpatient (REF) | payer MEDICARE, MEDICAID, SELFPAY ==
[2022-06-01 13:22] LABS: WBCANC 7.7 X10*3/uL
== END 2022-06-01 12:51 | disposition home or self-care (01) ==
LOC: HO.LAB 12:50
PROVIDERS: Psychiatry & Neurology Psychiatry; Visit Provider Colon & Rectal Surgery
DX: Z51.81 Encounter for therapeutic drug level monitoring (principal)
CPT/HCPCS: 36415; 85048

== ENCOUNTER 2022-06-08 13:14 | Outpatient (REF) | payer MEDICARE, MEDICAID, SELFPAY | END 2022-06-08 13:15 | disposition home or self-care (01) | LOC: HO.LAB 13:14 | PROVIDERS: Visit Provider Colon & Rectal Surgery | DX: Z13.89 Encounter for screening for other disorder (principal) | CPT/HCPCS: 36415; 85048 ==

== ENCOUNTER 2022-06-15 13:46 | Outpatient (REF) | payer MEDICARE, MEDICAID, SELFPAY ==
[2022-06-15 14:19] LABS: Neut%MD 53.9 %; Neutrophils Absolute Auto 3.4 x10*3/uL (2.0-8.3); WBCANC 6.3 X10*3/uL
== END 2022-06-15 13:47 | disposition home or self-care (01) ==
LOC: HO.LABR 13:46
PROVIDERS: Visit Provider Psychiatry & Neurology Psychiatry
DX: Z51.81 Encounter for therapeutic drug level monitoring (principal)
CPT/HCPCS: 36415; 85048

== ENCOUNTER 2022-06-26 12:44 | Outpatient (REF) | payer MEDICARE, MEDICAID, SELFPAY ==
[2022-06-26 13:26] LABS: Neut%MD 52.1 %; Neutrophils Absolute Auto 3.1 x10*3/uL (2.0-8.3); WBCANC 5.9 X10*3/uL
== END 2022-06-26 12:45 | disposition home or self-care (01) ==
LOC: HO.LAB 12:44
PROVIDERS: Visit Provider Psychiatry & Neurology Psychiatry
DX: Z79.899 Other long term (current) drug therapy (principal)
CPT/HCPCS: 36415; 85048

== ENCOUNTER 2022-07-03 13:21 | Outpatient (REF) | payer MEDICARE, MEDICAID, SELFPAY ==
[2022-07-03 14:00] LABS: Neut%MD 49.1 %; Neutrophils Absolute Auto 2.8 x10*3/uL (2.0-8.3); WBCANC 5.7 X10*3/uL
== END 2022-07-03 13:22 | disposition home or self-care (01) ==
LOC: HO.LABR 13:21
PROVIDERS: Visit Provider Psychiatry & Neurology Psychiatry
DX: Z51.81 Encounter for therapeutic drug level monitoring (principal); Z79.899 Other long term (current) drug therapy
CPT/HCPCS: 36415; 85048

== ENCOUNTER 2022-07-05 18:32 | Emergency (ER) | payer MEDICARE, MEDICAID, SELFPAY ==
[2022-07-05 18:39] VITALS: BP 124/82; PULSE 120; RESP 19; TEMP 36.6; O2SAT 98; BMI 33.5
--- NOTE | 2022-07-05 20:41 | ED.EYEPROB ---
HPI - Eye Problem General Chief complaint: Eye Problems Stated complaint: eye vision Time Seen by Provider: 07/05/22 20:19 Source: patient Mode of arrival: ambulatory Limitations: no limitations History of Present Illness HPI Narrative: Patient with schizophrenia well known to us, comes here for multiple complaints saying his vision is blurred not feeling good hearing voices denies any suicidal ideation , asking to get admitted as he lives alone Related Data Home Medications Medication Instructions Recorded Confirmed albuterol sulfate 90 mcg/actuation 2 puff inhalation Q4H PRN 07/05/22 07/05/22 aerosol inhaler Shortness Of Breath Or Wheezing benztropine 0.5 mg tablet 1 tab PO BEDTIME 07/05/22 07/05/22 clozapine 100 mg tablet 3.5 tab PO QPM 07/05/22 07/05/22 Allergies Allergy/AdvReac Type Severity Reaction Status Date / Time No Known Allergies Allergy Verified 02/19/22 03:39 [No Known Allergies*] Review of Systems Review of Systems: Yes all other systems are reviewed and are negative PMFSH Past Medical History Medical History Schizophrenia, paranoid, chronic with acute exacerbation Social History Social History Household Members: None Household Members Other:: 0 Housing: Apartment Do you presently have visiting nurse or other home services: No Unable to assess alcohol history related to: Refusing to respond Alcohol intake: unknown Patient Tobacco Use Status: Former Tobacco user Tobacco use type: Cigarette e-Cigarette/Vaping Use: Former Use Second Hand Smoke Exposure: No Substance Use Type: Marijuana Advance Directives: No Advance Directives Information Provided: No service: No Sexual orientation: Did not discuss Physical Exam Vital Signs: Vital Signs: Last Vital Signs Temp 97.8 F 07/05/22 23:53 Pulse 105 H 07/05/22 23:53 Resp 16 07/05/22 23:53 BP 112/72 07/05/22 23:53 Pulse Ox 96 07/05/22 23:53 O2 Del Method 07/05/22 23:53 BMI result Body Mass Index 33.5 Appearance: Alert. Oriented X3. No acute distress. Eyes: PERRLA, No Nystagmus normal fundus, patient states blurred vision but not even opening the eyes to read ENT: Pharynx normal. Oral Mucosa moist Neck: Normal inspection. Neck supple. CVS: Normal heart rate and rhythm. Pulses normal. Respiratory: No respiratory distress. Equal air entry bilateral, no wheezing/rales/rhonchi Abdomen: Soft and nontender. Bowel sounds are present, no mass palpable, no CVA tenderness Skin: Skin warm and dry. Normal skin color. Normal skin turgor. Extremities: No lower extremity edema. No calf tenderness psych: Mood normal no current hallucinations or delusions no suicidal Neuro: Oriented X 3. No motor deficit. No sensory deficit.No cerebellar signs , cranial nerves II-XII intact MDM - Eye Problem MDM Narrative Medical decision making narrative: Will consult therapy as patient is well known with psych issues and usually gets admitted. Lab Data Attestation: I reviewed the patient's lab results. Result diagrams: 07/05/22 22:26 07/05/22 22:26 Labs: Lab Results 07/05/22 07/05/22 07/05/22 Range/Units 20:52 22:06 22:06 WBC (4.8-10.8) X10*3/uL RBC (4.60-5.80) X10*6/uL Hgb (14.0-18.0) g/dl Hct (42.0-52.0) % MCV (80.0-98.0) fL MCH (27.0-33.0) pg MCHC (31.0-36.0) g/dl RDW (11.0-16.0) % Plt Count (160-400) X10*3/uL MPV (9.4-12.4) fL Immature Gran % (Auto) (0.0-0.4) % Neut % (Auto) (45-73) % Lymph % (Auto) (20-40) % Alger % (Auto) (2-11) % Eos % (Auto) (0-4) % Baso % (Auto) (0-2) % Lymph # (Auto) (1.2-4.9) X10*3/uL Alger # (Auto) (0.1-1.2) X10*3/uL Eos # (Auto) (0.0-0.4) X10*3/uL Baso # (Auto) (0.0-0.2) X10*3/uL Abs Immat Gran (auto) (0.00-0.03) X10*3/uL Absolute Neuts (auto) (2.0-8.3) x10*3/uL Absolute Nucleated RBC (0.0-0.012) X10*3/uL Nucleated RBC % (auto) (0.0-0.2) /100WBC Sodium (135-145) mmol/L Potassium (3.3-5.1) mmol/L Chloride (96-108) mmol/L Carbon Dioxide (22-29) mmol/L Anion Gap (12-20) BUN (9-16) mg/dL Creatinine (0.5-1.4) mg/dL Estim Creat Clear Calc Estimated GFR POC Glucose 112 (60-115) mg/dL Random Glucose (60-115) mg/dL Calcium (8.4-10.2) mg/dL Total Bilirubin (0.0-1.0) mg/dL AST (5-37) U/L ALT (0-40) U/L Alkaline Phosphatase (39-117) U/L Total Protein (6.5-8.0) g/dL Albumin (3.5-5.0) g/dL Urine Opiates Screen Not Detected (Not Detect) Urine Fentanyl Screen Not Detected (Not Detect) Ur Barbiturates Screen Not Detected (Not Detect) Ur Phencyclidine Scrn Not Detected (Not Detect) Ur Amphetamines Screen Not Detected (Not Detect) U Benzodiazepines Scrn Not Detected (Not Detect) Urine Cocaine Screen Not Detected (Not Detect) U Marijuana (THC) Screen Not Detected (Not Detect) COVID-19 (TUSHAR) Negative (Negative) COVID-19 Clin Com See Note 07/05/22 07/05/22 Range/Units 22:26 22:26 WBC 11.2 H (4.8-10.8) X10*3/uL RBC 5.38 (4.60-5.80) X10*6/uL Hgb 15.3 (14.0-18.0) g/dl Hct 44.5 (42.0-52.0) % MCV 82.7 (80.0-98.0) fL MCH 28.4 (27.0-33.0) pg MCHC 34.4 (31.0-36.0) g/dl RDW 12.3 (11.0-16.0) % Plt Count 296 (160-400) X10*3/uL MPV 10.7 (9.4-12.4) fL Immature Gran % (Auto) 0.3 (0.0-0.4) % Neut % (Auto) 48.9 (45-73) % Lymph % (Auto) 41.5 H (20-40) % Alger % (Auto) 6.4 (2-11) % Eos % (Auto) 2.4 (0-4) % Baso % (Auto) 0.5 (0-2) % Lymph # (Auto) 4.7 (1.2-4.9) X10*3/uL Alger # (Auto) 0.7 (0.1-1.2) X10*3/uL Eos # (Auto) 0.3 (0.0-0.4) X10*3/uL Baso # (Auto) 0.1 (0.0-0.2) X10*3/uL Abs Immat Gran (auto) 0.03 (0.00-0.03) X10*3/uL Absolute Neuts (auto) 5.5 (2.0-8.3) x10*3/uL Absolute Nucleated RBC 0.000 (0.0-0.012) X10*3/uL Nucleated RBC % (auto) 0.0 (0.0-0.2) /100WBC Sodium 143 (135-145) mmol/L Potassium 3.8 (3.3-5.1) mmol/L Chloride 104 (96-108) mmol/L Carbon Dioxide 28 (22-29) mmol/L Anion Gap 15 (12-20) BUN 8 L (9-16) mg/dL Creatinine 0.81 (0.5-1.4) mg/dL Estim Creat Clear Calc 154.2 Estimated GFR > 60 POC Glucose (60-115) mg/dL Random Glucose 95 (60-115) mg/dL Calcium 10.0 (8.4-10.2) mg/dL Total Bilirubin 0.4 (0.0-1.0) mg/dL AST 73 H (5-37) U/L ALT 141 H (0-40) U/L Alkaline Phosphatase 99 (39-117) U/L Total Protein 8.2 H (6.5-8.0) g/dL Albumin 4.8 (3.5-5.0) g/dL Urine Opiates Screen (Not Detect) Urine Fentanyl Screen (Not Detect) Ur Barbiturates Screen (Not Detect) Ur Phencyclidine Scrn (Not Detect) Ur Amphetamines Screen (Not Detect) U Benzodiazepines Scrn (Not Detect) Urine Cocaine Screen (Not Detect) U Marijuana (THC) Screen (Not Detect) COVID-19 (TUSHAR) (Negative) COVID-19 Clin Com Discharge Plan Discharge Clinical Impression: Schizophrenia, paranoid, chronic with acute exacerbation Patient Disposition: Still a Patient Prescriptions: No Action benztropine 0.5 mg tablet 1 tab PO BEDTIME clozapine 100 mg tablet 3.5 tab PO QPM albuterol sulfate 90 mcg/actuation HFA aerosol inhaler 2 puff INHALATION Q4H PRN (Reason: Shortness Of Breath Or Wheezing)
--- NOTE | 2022-07-05 20:55 | PC.NURSE ---
pt approached nurse and asked for a bed in the main ED. Explained to Pt that he is in the minor care section of the ED and assured him that he would be seen by provider. Jane MENA ordered POC and visual acuity testing. Pond Tender then went to obtain POC from pt where she was told by the patient that he is hearing voices. Pt has BH history- MD Lara aware
--- NOTE | 2022-07-05 20:58 | PC.NURSE ---
visual acuity test is done but pt states he wears glasses at home
[2022-07-05 21:26] LABS: Glucose, Whole Blood 112 mg/dL (60-115)
[2022-07-05 22:32] LABS: Amphetamine Screen Urine Not Detected (Not Detect); Barbiturates, Urine Not Detected (Not Detect); Benzodiazepines Screen Urine Not Detected (Not Detect); COVID-19 Test Negative (Negative); Cannabinoid Screen Urine Not Detected (Not Detect); Cocaine Screen Urine Not Detected (Not Detect); Fentanyl, urine Not Detected (Not Detect); Opiate Screen Urine Not Detected (Not Detect); Phencyclidine Screen Urine Not Detected (Not Detect)
[2022-07-05 22:32] LABS: MANUAL DIFF FLAG NO
[2022-07-05 22:35] LABS: Basophils Absolute Auto 0.1 X10*3/uL (0.0-0.2); Basophils Percent Auto 0.5 % (0-2); Eosinophils Absolute Auto 0.3 X10*3/uL (0.0-0.4); Eosinophils Percent Auto 2.4 % (0-4); Hematocrit 44.5 % (42.0-52.0); Hemoglobin 15.3 g/dl (14.0-18.0); Imm Gran Abs Auto 0.03 X10*3/uL (0.00-0.03); Imm Gran Pct Auto 0.3 % (0.0-0.4); Lymphocytes Absolute Auto 4.7 X10*3/uL (1.2-4.9); Lymphocytes Percent Auto 41.5 % (20-40); Mean Corpuscular HGB Conc 34.4 g/dl (31.0-36.0); Mean Corpuscular Hemoglobin 28.4 pg (27.0-33.0); Mean Corpuscular Volume 82.7 fL (80.0-98.0); Mean Platelet Volume 10.7 fL (9.4-12.4); Monocytes Absolute Auto 0.7 X10*3/uL (0.1-1.2); Monocytes Percent Auto 6.4 % (2-11); Neutrophils Absolute Auto 5.5 x10*3/uL (2.0-8.3); Neutrophils Percent Auto 48.9 % (45-73); Platelet Count 296 X10*3/uL (160-400); Red Blood Count 5.38 X10*6/uL (4.60-5.80); Red Cell Distribution Width 12.3 % (11.0-16.0); White Blood Count 11.2 X10*3/uL (4.8-10.8)
[2022-07-05 22:55] LABS: Alanine Aminotransferase 141 U/L (0-40); Albumin Level 4.8 g/dL (3.5-5.0); Alkaline Phosphatase 99 U/L (39-117); Anion Gap 15 (12-20); Aspartate Amino Transferase 73 U/L (5-37); Bilirubin Total 0.4 mg/dL (0.0-1.0); Blood Urea Nitrogen 8 mg/dL (9-16); Carbon Dioxide 28 mmol/L (22-29); Chloride 104 mmol/L (96-108); Creatinine Clr Calc Pharmacy 154.2; Estimated Glomerular Filt Rate > 60; Glucose Random 95 mg/dL (60-115); Potassium 3.8 mmol/L (3.3-5.1); Sodium 143 mmol/L (135-145); Total Protein 8.2 g/dL (6.5-8.0)
--- NOTE | 2022-07-05 22:58 | MHC.CARE ---
Pt is well known to the CARE Team and psychiatric units. Pt presented today due to blurred vision x2 days. Pt reports to this writer technical publications that he lost his eye sight. Pt cannot describe appropriately how he lost his eye sight. Pt is unable to articulate his presenting concerns and struggling to do so. Pt endorses AH but unable to identify what they are telling him. He states he is single and wants a family and wants to buy a home. He states that he is lonely. Pt denies SI at this time. Pt should remain the night in the ED and follow up with the CARE Team/psychiatry to develop a plan for pt. Given the time of the assessment a plan could not be developed given pt's acute history. ED provider aware
[2022-07-05 23:53] VITALS: BP 112/72; PULSE 105; RESP 16; TEMP 36.6; O2SAT 96
[2022-07-05] MEDS: Benztropine Mesylate 0.5 MG TABLET PO (23:59)
[2022-07-06] MEDS: cloZAPine 100 MG TABLET 350 MG PO
[2022-07-06] MEDS: Albuterol Sulfate 90 MCG 8 GM INHALER 2 PUFF INHALE (05:33)
--- NOTE | 2022-07-06 05:37 | PC.NURSE ---
Patient slept through the night, no distress observed/reported, medication compliant, patient was assessed by care team disposition pending psych consult, behavior non concerning, hyper-verbal, VSS, will continue to monitor.
[2022-07-06 06:33] LABS: Glucose, Whole Blood 172 mg/dL (60-115)
--- NOTE | 2022-07-06 07:34 | PC.NURSE ---
patient appears to remain asleep at present respirations are even and unlabored patient appears in non distress.
--- NOTE | 2022-07-06 11:26 | MHC.CARE ---
CARE Team discussed case with Dr. Zavaleta. Plan for [facility] staff to check in with Pt with a tentative plan for discharge following check in .
== END 2022-07-06 13:39 | disposition home or self-care (01) ==
PROVIDERS: Emergency Provider Internal Medicine
DX: F20.0 Paranoid schizophrenia (principal); H53.8 Other visual disturbances; Z20.822 Contact with and (suspected) exposure to COVID-19; F12.90 Cannabis use, unspecified, uncomplicated; Z79.899 Other long term (current) drug therapy
CPT/HCPCS: 36415; 80053; 80307; 82947; 85025; 87635; 99283; 99284

== ENCOUNTER 2022-07-13 12:33 | Outpatient (REF) | payer MEDICARE, MEDICAID, SELFPAY ==
[2022-07-13 13:03] LABS: Neut%MD 60.2 %; Neutrophils Absolute Auto 4.9 x10*3/uL (2.0-8.3); WBCANC 8.1 X10*3/uL
== END 2022-07-13 12:34 | disposition home or self-care (01) ==
LOC: HO.LAB 12:33
PROVIDERS: Visit Provider Psychiatry & Neurology Psychiatry
DX: Z51.81 Encounter for therapeutic drug level monitoring (principal); Z79.899 Other long term (current) drug therapy
CPT/HCPCS: 36415; 85048

== ENCOUNTER 2022-07-20 12:29 | Outpatient (REF) | payer MEDICARE, SELFPAY ==
[2022-07-20 12:57] LABS: Neut%MD 55.6 %; Neutrophils Absolute Auto 3.8 x10*3/uL (2.0-8.3); WBCANC 6.8 X10*3/uL
== END 2022-07-20 12:30 | disposition home or self-care (01) ==
LOC: HO.LABR 12:29
PROVIDERS: Psychiatry & Neurology Psychiatry; Visit Provider Psychiatry & Neurology Psychiatry
DX: Z79.899 Other long term (current) drug therapy (principal)
CPT/HCPCS: 36415; 85048

== ENCOUNTER 2022-07-27 12:30 | Outpatient (REF) | payer MEDICARE, SELFPAY | END 2022-07-27 12:31 | disposition home or self-care (01) | LOC: HO.LABR 12:30 | PROVIDERS: Visit Provider Psychiatry & Neurology Psychiatry | DX: Z13.89 Encounter for screening for other disorder (principal) ==

== ENCOUNTER 2022-07-27 12:57 | Emergency (ER) | payer MEDICARE, SELFPAY ==
[2022-07-27 13:16] VITALS: BP 116/75; PULSE 120; RESP 18; TEMP 37.3; O2SAT 95; BMI 30.4
[2022-07-27 23:31] VITALS: BP 126/78; PULSE 116; RESP 18; TEMP 36.8; O2SAT 95
[2022-07-28 01:46] LABS: Basophils Percent Auto 0.4 % (0-2); Eosinophils Absolute Auto 0.2 X10*3/uL (0.0-0.4); Hematocrit 45.1 % (42.0-52.0); Hemoglobin 15.7 g/dl (14.0-18.0); Imm Gran Abs Auto 0.03 X10*3/uL (0.00-0.03); Imm Gran Pct Auto 0.3 % (0.0-0.4); Lymphocytes Absolute Auto 3.7 X10*3/uL (1.2-4.9); MANUAL DIFF FLAG NO; Mean Corpuscular HGB Conc 34.8 g/dl (31.0-36.0); Mean Corpuscular Hemoglobin 28.8 pg (27.0-33.0); Mean Corpuscular Volume 82.6 fL (80.0-98.0); Mean Platelet Volume 10.5 fL (9.4-12.4); Monocytes Absolute Auto 0.6 X10*3/uL (0.1-1.2); Monocytes Percent Auto 6.1 % (2-11); Neutrophils Absolute Auto 5.2 x10*3/uL (2.0-8.3); Neutrophils Percent Auto 53.2 % (45-73); Platelet Count 286 X10*3/uL (160-400); Red Blood Count 5.46 X10*6/uL (4.60-5.80); Red Cell Distribution Width 13.1 % (11.0-16.0); White Blood Count 9.8 X10*3/uL (4.8-10.8)
[2022-07-28 02:04] LABS: COVID-19 Test Negative (Negative)
[2022-07-28 02:05] LABS: Alanine Aminotransferase 94 U/L (0-40); Albumin Level 4.9 g/dL (3.5-5.0); Alkaline Phosphatase 89 U/L (39-117); Anion Gap 18 (12-20); Aspartate Amino Transferase 49 U/L (5-37); Bilirubin Direct 0.2 mg/dL (0.0-0.5); Bilirubin Total 0.5 mg/dL (0.0-1.0); Blood Urea Nitrogen 6 mg/dL (9-16); Calcium 9.9 mg/dL (8.4-10.2); Carbon Dioxide 22 mmol/L (22-29); Chloride 104 mmol/L (96-108); Creatinine Clr Calc Pharmacy 156.8; Estimated Glomerular Filt Rate > 60; Glucose Random 121 mg/dL (60-115); Lipase 83 U/L (8-78); Potassium 3.7 mmol/L (3.3-5.1); Sodium 140 mmol/L (135-145); Total Protein 8.2 g/dL (6.5-8.0)
--- NOTE | 2022-07-28 02:48 | ED_ITS ---
HPI - Psych General Chief Complaint: Nausea/Vomiting/Diarrhea Stated Complaint: vomiting Time Seen by Provider: 07/27/22 22:00 Source: patient Mode of arrival: ambulatory Limitations: no limitations History of Present Illness HPI Narrative: Patient comes to the emergency room complaining of depression, denies suicidal homicidal ideation. Patient also complaining of nausea, vomiting and a hemorrhoid. And is also complaining that during sex, when he is about to ejaculate, he is unable to do so and it is getting him frustrated and worsening his depression. Related Data Home Medications Medication Instructions Recorded Confirmed albuterol sulfate 90 mcg/actuation 2 puff inhalation Q4H PRN 07/28/22 07/28/22 aerosol inhaler Shortness Of Breath Or Wheezing benztropine 0.5 mg tablet 1 tab PO BEDTIME 07/28/22 07/28/22 clozapine 100 mg tablet 3.5 tab PO DAILY@1700 07/28/22 07/28/22 Previous Rx's Medication Instructions Recorded hydrocortisone 2.5 % topical cream 1 appl [place] BID #30 grams 07/28/22 with perineal applicator ([employer] HC) Allergies Allergy/AdvReac Type Severity Reaction Status Date / Time No Known Allergies Allergy Verified 02/19/22 03:39 [No Known Allergies*] Review of Systems Review of Systems: Constitutional : No Weight loss, No Fever, No Chills, No Night Sweats, No Fatigue, No Malaise ENT/Mouth : No Hearing loss, No Ear Pain, No Nasal Congestion, No Sinus Pain, No Hoarseness, No sore throat, No Rhinorrhea, No Swallowing Difficulty Eyes: No Eye Pain, No Swelling, No Redness, No Foreign Body, No Discharge, No Vision Changes Cardiovascular : No Chest Pain, No SOB, No Dyspnea on Exertion, No Orthopnea, No Edema, No Palpitations Respiratory : No Cough, No Sputum, No Wheezing, No Smoke Exposure, No Dyspnea Gastrointestinal : Complaining of nausea, vomiting and diarrhea, complaining of a painful not bleed hemorrhoid Genitourinary : no irregular bleeding, No Dysuria, No Urinary Frequency, No Hematuria, No Urinary Incontinence, No Urgency, No Flank Pain, No Urinary Flow Changes, No Hesitancy Musculoskeletal : No joint pain, No Myalgias, No Joint Swelling Skin : No Skin Lesions, No rash Neuro : No Weakness, No Numbness, No Paresthesias, No Loss of Consciousness, No Dizziness, No Headache Psych : Complaining of depression, no SI, no HI, complaining of sexual dysfunction, unable to ejaculate which makes depression worse for him Heme/Lymph: No Bruising, No Bleeding,No Lymphadenopathy Endocrine : No Polyuria, No Polydipsia, No Temperature Intolerance PMF Past Medical History Medical History Schizophrenia, paranoid, chronic with acute exacerbation Social History Social History Household Members: None Household Members Other:: 0 Housing: Apartment Do you presently have visiting nurse or other home services: No Unable to assess alcohol history related to: Refusing to respond Alcohol intake: unknown Patient Tobacco Use Status: Former Tobacco user Tobacco use type: Cigarette e-Cigarette/Vaping Use: Former Use Second Hand Smoke Exposure: No Substance Use Type: Marijuana Advance Directives: No service: No Sexual orientation: Did not discuss Physical Exam Vital Signs: Vital Signs: Last Vital Signs Temp 98.2 F 07/27/22 23:31 Pulse 116 H 07/27/22 23:31 Resp 18 07/27/22 23:31 BP 126/78 07/27/22 23:31 Pulse Ox 95 07/27/22 23:31 O2 Del Method 07/27/22 23:31 BMI result Body Mass Index 30.4 Const: Other: Appearance: Alert. Oriented X3. No acute distress. Eyes: Pupils equal, round and reactive to light. ENT: Pharynx normal. Neck: Normal inspection. Neck supple. No lymph nodes noted. No crepitus CVS: Normal heart rate and rhythm. Pulses normal. Normal S1 and S2 Respiratory: No respiratory distress. Breath sounds normal. No Wheezing. No rales , Abdomen: Soft and nontender. No rigidity. No distention. On rectal exam, patient does have thrombosed hemorrhoid Skin: Skin warm and dry. Normal skin color. Normal skin turgor. Extremities: No lower extremity edema. No Lacerations. No Rash Neuro: Oriented X 3. No motor deficit. No sensory deficit. Moving all ext remities. No slurred speech. CN 2 through 12 grossly intact Psych: calm, cooperative, normal affect Course Course Course Narrative: I discussed with the patient that we could do an incision and drainage of the hemorrhoid. Patient declined. Patient wants to try topical medication 1st. Patient is not suicidal homicidal, states his depression is worsening, requesting crisis Physician is the patient started at 02:55 04:37 I was informed by the patient's nurse the patient no longer wants to wait for [facility]. Patient is not on their a section 12, not suicidal or homicidal. Patient being discharged. Patient states that he will follow up in an outpatient basis. MDM - Psych Lab Data Result diagrams: 07/28/22 01:40 07/28/22 01:40 Labs: Lab Results 07/28/22 07/28/22 07/28/22 Range/Units 01:40 01:40 01:40 WBC 9.8 (4.8-10.8) X10*3/uL RBC 5.46 (4.60-5.80) X10*6/uL Hgb 15.7 (14.0-18.0) g/dl Hct 45.1 (42.0-52.0) % MCV 82.6 (80.0-98.0) fL MCH 28.8 (27.0-33.0) pg MCHC 34.8 (31.0-36.0) g/dl RDW 13.1 (11.0-16.0) % Plt Count 286 (160-400) X10*3/uL MPV 10.5 (9.4-12.4) fL Immature Gran % (Auto) 0.3 (0.0-0.4) % Neut % (Auto) 53.2 (45-73) % Lymph % (Auto) 38.0 (20-40) % [place] % (Auto) 6.1 (2-11) % Eos % (Auto) 2.0 (0-4) % Baso % (Auto) 0.4 (0-2) % Lymph # (Auto) 3.7 (1.2-4.9) X10*3/uL [place] # (Auto) 0.6 (0.1-1.2) X10*3/uL Eos # (Auto) 0.2 (0.0-0.4) X10*3/uL Baso # (Auto) 0.0 (0.0-0.2) X10*3/uL Abs Immat Gran (auto) 0.03 (0.00-0.03) X10*3/uL Absolute Neuts (auto) 5.2 (2.0-8.3) x10*3/uL Absolute Nucleated RBC 0.000 (0.0-0.012) X10*3/uL Nucleated RBC % (auto) 0.0 (0.0-0.2) /100WBC Sodium 140 (135-145) mmol/L Potassium 3.7 (3.3-5.1) mmol/L Chloride 104 (96-108) mmol/L Carbon Dioxide 22 (22-29) mmol/L Anion Gap 18 (12-20) BUN 6 L (9-16) mg/dL Creatinine 0.76 (0.5-1.4) mg/dL Estim Creat Clear Calc 156.8 Estimated GFR > 60 Random Glucose 121 H (60-115) mg/dL Calcium 9.9 (8.4-10.2) mg/dL Total Bilirubin 0.5 (0.0-1.0) mg/dL Direct Bilirubin 0.2 (0.0-0.5) mg/dL AST 49 H (5-37) U/L ALT 94 H (0-40) U/L Alkaline Phosphatase 89 (39-117) U/L Total Protein 8.2 H (6.5-8.0) g/dL Albumin 4.9 (3.5-5.0) g/dL Lipase 83 H (8-78) U/L Urine Color Urine Appearance Urine pH (5.0-9.0) Ur Specific [place] (1.005-1.025) Urine Protein (Neg-Trace) mg/dL Urine Glucose (UA) (Negative) mg/dL Urine Ketones (Negative) mg/dL Urine Blood (Negative) Urine Nitrite (Negative) Ur Leukocyte Esterase (Negative) Urine Opiates Screen (Not Detect) Urine Fentanyl Screen (Not Detect) Ur Barbiturates Screen (Not Detect) Ur Phencyclidine Scrn (Not Detect) Ur Amphetamines Screen (Not Detect) U Benzodiazepines Scrn (Not Detect) Urine Cocaine Screen (Not Detect) U Marijuana (THC) Screen (Not Detect) COVID-19 (TUSHAR) Negative (Negative) COVID-19 Clin Com See Note 07/28/22 07/28/22 Range/Units 03:28 03:28 WBC (4.8-10.8) X10*3/uL RBC (4.60-5.80) X10*6/uL Hgb (14.0-18.0) g/dl Hct (42.0-52.0) % MCV (80.0-98.0) fL MCH (27.0-33.0) pg MCHC (31.0-36.0) g/dl RDW (11.0-16.0) % Plt Count (160-400) X10*3/uL MPV (9.4-12.4) fL Immature Gran % (Auto) (0.0-0.4) % Neut % (Auto) (45-73) % Lymph % (Auto) (20-40) % [place] % (Auto) (2-11) % Eos % (Auto) (0-4) % Baso % (Auto) (0-2) % Lymph # (Auto) (1.2-4.9) X10*3/uL [place] # (Auto) (0.1-1.2) X10*3/uL Eos # (Auto) (0.0-0.4) X10*3/uL Baso # (Auto) (0.0-0.2) X10*3/uL Abs Immat Gran (auto) (0.00-0.03) X10*3/uL Absolute Neuts (auto) (2.0-8.3) x10*3/uL Absolute Nucleated RBC (0.0-0.012) X10*3/uL Nucleated RBC % (auto) (0.0-0.2) /100WBC Sodium (135-145) mmol/L Potassium (3.3-5.1) mmol/L Chloride (96-108) mmol/L Carbon Dioxide (22-29) mmol/L Anion Gap (12-20) BUN (9-16) mg/dL Creatinine (0.5-1.4) mg/dL Estim Creat Clear Calc Estimated GFR Random Glucose (60-115) mg/dL Calcium (8.4-10.2) mg/dL Total Bilirubin (0.0-1.0) mg/dL Direct Bilirubin (0.0-0.5) mg/dL AST (5-37) U/L ALT (0-40) U/L Alkaline Phosphatase (39-117) U/L Total Protein (6.5-8.0) g/dL Albumin (3.5-5.0) g/dL Lipase (8-78) U/L Urine Color Yellow Urine Appearance Clear Urine pH 6.0 (5.0-9.0) Ur Specific [place] <= 1.005 (1.005-1.025) Urine Protein Negative (Neg-Trace) mg/dL Urine Glucose (UA) Negative (Negative) mg/dL Urine Ketones Negative (Negative) mg/dL Urine Blood Negative (Negative) Urine Nitrite Negative (Negative) Ur Leukocyte Esterase Negative (Negative) Urine Opiates Screen Not Detected (Not Detect) Urine Fentanyl Screen Not Detected (Not Detect) Ur Barbiturates Screen Not Detected (Not Detect) Ur Phencyclidine Scrn Not Detected (Not Detect) Ur Amphetamines Screen Not Detected (Not Detect) U Benzodiazepines Scrn Not Detected (Not Detect) Urine Cocaine Screen Not Detected (Not Detect) U Marijuana (THC) Screen Not Detected (Not Detect) COVID-19 (TUSHAR) (Negative) COVID-19 Clin Com Discharge Plan Discharge Clinical Impression: Depression, External hemorrhoid, thrombosed Patient Disposition: Home, Self-Care Instructions: Hemorrhoids (ED) Additional Instructions: Please follow-up with your primary care physician tomorrow. If you have any worsening or new symptoms, please return to the emergency room or call 911 Prescriptions: New hydrocortisone [[employer] HC] 2.5 % cream with perineal applicator 1 appl [place] BID Qty: 30 0RF No Action benztropine 0.5 mg tablet 1 tab PO BEDTIME clozapine 100 mg tablet 3.5 tab PO DAILY@1700 albuterol sulfate 90 mcg/actuation HFA aerosol inhaler 2 puff INHALATION Q4H PRN (Reason: Shortness Of Breath Or Wheezing)
--- NOTE | 2022-07-28 02:51 | PC.NURSE ---
Pt is medically cleared at this time. [facility] SI/HI endorses depression. Pt to be changed over and transferred to POD. Smart sheet sent.
[2022-07-28] MEDS: Hydrocortisone 1 % Ointment 28.35 GM TUBE 1 APPL TOPICAL (03:16)
[2022-07-28] MEDS: LORazepam 1 MG TABLET 2 MG PO (03:16)
[2022-07-28 03:46] LABS: Amphetamine Screen Urine Not Detected (Not Detect); Barbiturates, Urine Not Detected (Not Detect); Benzodiazepines Screen Urine Not Detected (Not Detect); Cannabinoid Screen Urine Not Detected (Not Detect); Cocaine Screen Urine Not Detected (Not Detect); Fentanyl, urine Not Detected (Not Detect); Opiate Screen Urine Not Detected (Not Detect); Phencyclidine Screen Urine Not Detected (Not Detect)
[2022-07-28 03:51] LABS: Appearance Urine Clear; Color Urine Yellow; Glucose Urine UA Negative (Negative); Leukocyte Esterase Urine Negative (Negative); Nitrite Urine Negative (Negative); Specific Gravity - Urine <= 1.005 (1.005-1.025); Urine Blood Negative (Negative); Urine Ketones Negative (Negative); Urine Protein Negative (Neg-Trace)
== END 2022-07-28 04:58 | disposition home or self-care (01) ==
PROVIDERS: Emergency Provider Emergency Medicine
DX: F32.A Depression, unspecified (principal); K64.5 Perianal venous thrombosis; Z20.822 Contact with and (suspected) exposure to COVID-19; F20.0 Paranoid schizophrenia; F12.90 Cannabis use, unspecified, uncomplicated; Z87.891 Personal history of nicotine dependence; Z79.899 Other long term (current) drug therapy
CPT/HCPCS: 80053; 80307; 81003; 82248; 83690; 85025; 87635; 99283

== ENCOUNTER 2022-08-01 13:39 | Emergency (ER) | payer MEDICARE, SELFPAY ==
[2022-08-01 15:02] VITALS: BP 123/81; PULSE 126; RESP 18; TEMP 36.7; O2SAT 93; BMI 35.1
[2022-08-01 15:33] LABS: MANUAL DIFF FLAG NO
[2022-08-01 15:35] LABS: Basophils Absolute Auto 0.1 X10*3/uL (0.0-0.2); Basophils Percent Auto 0.7 % (0-2); Eosinophils Absolute Auto 0.1 X10*3/uL (0.0-0.4); Eosinophils Percent Auto 1.9 % (0-4); Hematocrit 46.4 % (42.0-52.0); Hemoglobin 15.9 g/dl (14.0-18.0); Imm Gran Abs Auto 0.03 X10*3/uL (0.00-0.03); Imm Gran Pct Auto 0.4 % (0.0-0.4); Lymphocytes Absolute Auto 2.6 X10*3/uL (1.2-4.9); Lymphocytes Percent Auto 34.9 % (20-40); Mean Corpuscular HGB Conc 34.3 g/dl (31.0-36.0); Mean Corpuscular Hemoglobin 28.1 pg (27.0-33.0); Mean Corpuscular Volume 82.1 fL (80.0-98.0); Mean Platelet Volume 10.6 fL (9.4-12.4); Monocytes Absolute Auto 0.4 X10*3/uL (0.1-1.2); Monocytes Percent Auto 5.9 % (2-11); Neutrophils Absolute Auto 4.2 x10*3/uL (2.0-8.3); Neutrophils Percent Auto 56.2 % (45-73); Platelet Count 270 X10*3/uL (160-400); Red Blood Count 5.65 X10*6/uL (4.60-5.80); Red Cell Distribution Width 13.2 % (11.0-16.0); White Blood Count 7.5 X10*3/uL (4.8-10.8)
[2022-08-01 15:55] LABS: Alanine Aminotransferase 97 U/L (0-40); Alkaline Phosphatase 90 U/L (39-117); Anion Gap 18 (12-20); Aspartate Amino Transferase 52 U/L (5-37); Bilirubin Total 0.2 mg/dL (0.0-1.0); Blood Urea Nitrogen 6 mg/dL (9-16); Calcium 10.1 mg/dL (8.4-10.2); Carbon Dioxide 22 mmol/L (22-29); Chloride 104 mmol/L (96-108); Creatinine Clr Calc Pharmacy 250.6; Estimated Glomerular Filt Rate > 60; Glucose Random 178 mg/dL (60-115); Potassium 3.7 mmol/L (3.3-5.1); Sodium 140 mmol/L (135-145); Total Protein 8.2 g/dL (6.5-8.0)
[2022-08-01 23:56] VITALS: BP 139/87; PULSE 119; RESP 19; TEMP 36.8; O2SAT 97
--- NOTE | 2022-08-02 00:44 | ED.GENADULT ---
HPI - General Adult General Chief complaint: General Medical Stated complaint: hemorrhoids needs popping, depressed Time Seen by Provider: 08/02/22 00:43 Source: patient Mode of arrival: ambulatory Limitations: no limitations ( patient's 1st language is [place], he does speak Upper Sorbian, hvac journeyman was initially used however the patient requested to speak in Upper Sorbian only) History of Present Illness HPI narrative: 27-year-old male who presents emergency department for evaluation of depression and evaluation of his hemorrhoid. The patient was seen on 07/28/2022 for similar complaints. The patient states that he has had a hemorrhoid for at least 15 days. He has been applying the hemorrhoid cream that was prescribed on 07/28/2022 but he is still having pain whenever he moves his bowels. He also states that he has pain when he wipes himself with toilet paper occasionally notices blood when he wipes with toilet paper. He states that he has occasional episodes of nausea and vomiting. He states that he has depression in his depression is gotten worse. He denies any trigger to his depression. He denies being suicidal but he states that he has tried to hurt himself in the past. The patient would like to talk to [facility] about his depression. MD complaint: Hemorrhoid Onset (ago): day(s) (15) Location: buttocks Radiation: non-radiation Severity: moderate Severity scale (1-10): 6 Quality: burning Pain Consistency: constant Relieving factors: none Exacerbating factors: other ( bowel movement) Treatments prior to arrival: other ( hemorrhoid cream) Related Data Home Medications Medication Instructions Recorded Confirmed albuterol sulfate 90 mcg/actuation 2 puff inhalation Q4H PRN 07/28/22 08/02/22 aerosol inhaler Shortness Of Breath Or Wheezing benztropine 0.5 mg tablet 1 tab PO BEDTIME 07/28/22 08/02/22 clozapine 100 mg tablet 3.5 tab PO DAILY@1700 07/28/22 08/02/22 Previous Rx's Medication Instructions Recorded hydrocortisone 2.5 % topical cream 1 appl [place] BID #30 grams 07/28/22 with perineal applicator ([employer] HC) Allergies Allergy/AdvReac Type Severity Reaction Status Date / Time No Known Allergies Allergy Verified 02/19/22 03:39 [No Known Allergies*] Review of Systems Review of Systems: Yes all other systems are reviewed and are negative [facility] Past Medical History Medical History Schizophrenia, paranoid, chronic with acute exacerbation Social History Social History Household Members: None Household Members Other:: 0 Housing: Apartment Do you presently have visiting nurse or other home services: No Unable to assess alcohol history related to: Refusing to respond Alcohol intake: unknown Patient Tobacco Use Status: Former Tobacco user Tobacco use type: Cigarette e-Cigarette/Vaping Use: Former Use Second Hand Smoke Exposure: No Substance Use Type: Marijuana Advance Directives: No Advance Directives Information Provided: No service: No Sexual orientation: Did not discuss Physical Exam ED Vital Signs: Vital Signs - 24 hr 08/01/22 15:02 08/01/22 23:56 Temperature 98.1 F 98.2 F Pulse Rate 126 H 119 H Respiratory Rate 18 19 Blood Pressure 123/81 139/87 Pulse Oximetry 93 97 Oxygen Delivery Method Room Air Room Air BMI result Body Mass Index 35.1 Const Other: awake, alert, male patient, he does not appear to be in distress, he does answer questions appropriately HENCT Head: Yes normal to inspection, Yes normocephalic and Yes atraumatic Ears: external ears normal General nose exam: Normal external nose present Face and sinus: Yes normal facial exam Mouth: Normal oral and palatal mucosa present Throat: Yes posterior oropharynx normal Eyes General: appearance normal, both eyes and all related structures Pupils: Equal, round and reactive pupils present Neck Neck: Yes normal visual inspection, Yes no lymphadenopathy, Yes trachea midline and Yes supple Chest Chest palpation & inspection: normal inspection of the chest and normal palpation of entire chest wall Resp Effort & Inspection: normal respiratory effort and able to speak in complete sentences Auscultation: clear to auscultation bilaterally Cardio Rate: regular rate Rhythm: regular rhythm Heart sounds: S1 normal heart sound present, S2 normal heart sound present and no murmurs GI Other: patient has 1 external hemorrhoid which is soft, tender to palpation Inspection: Yes normal to inspection Palpation (GI): Soft to palpation, nontender and no guarding Auscultation: normal bowel sounds General: Yes no CVA tenderness Back/Spine/Pelvis Back: no CVA tenderness Skin General skin exam: no rashes or lesions noted Neuro Cranial nerves: Yes CN's II-XII intact bilaterally and Yes Equal, round and reactive pupils present Cognition (Neuro): normal cognition Motor exam (neuro): 5/5 motor strength present throughout Extrem General: Yes normal to inspection Psych Appearance: disheveled Speech and movement: Normal speech and movement present Affect: normal affect Attitude: cooperative Thought process: Normal thought process present Thought content: Normal thought content present Course Course Course Narrative: 27-year-old male with a history of schizophrenia who presents emergency department for evaluation depression and painful external hemorrhoid. Patient's physical examination did reveal a external hemorrhoid which was soft but tender to palpation, at this time I do not think the patient has a thrombosed hemorrhoid in this does not need to be excised. He was advised to continue using the hemorrhoid cream. Patient states that he is depressed, he denies being suicidal at this time but he does want to talk to [facility] regarding his depression. The patient did have a CBC and CMP which revealed an elevated glucose of 178 elevated AST and ALT of 52 and 97 otherwise was unremarkable. At this time, believe that there was no acute medical condition that would exclude this patient from being evaluated by our crisis counselor. I did order a urine drug screen on the patient. I also ordered a [facility] consult on this patient for evaluation of his depression. 0747: start physician observation: Urine tox screen was negative. COVID-19 was negative. The patient kept Emergency department psychiatric unit into again be evaluated by the crisis team to determine disposition. Medical Decision Making Lab Data Result diagrams: 08/01/22 15:27 08/01/22 15:27 Labs: Lab Results 08/01/22 08/01/22 08/02/22 Range/Units 15:27 15:27 01:20 WBC 7.5 (4.8-10.8) X10*3/uL RBC 5.65 (4.60-5.80) X10*6/uL Hgb 15.9 (14.0-18.0) g/dl Hct 46.4 (42.0-52.0) % MCV 82.1 (80.0-98.0) fL MCH 28.1 (27.0-33.0) pg MCHC 34.3 (31.0-36.0) g/dl RDW 13.2 (11.0-16.0) % Plt Count 270 (160-400) X10*3/uL MPV 10.6 (9.4-12.4) fL Immature Gran % (Auto) 0.4 (0.0-0.4) % Neut % (Auto) 56.2 (45-73) % Lymph % (Auto) 34.9 (20-40) % [place] % (Auto) 5.9 (2-11) % Eos % (Auto) 1.9 (0-4) % Baso % (Auto) 0.7 (0-2) % Lymph # (Auto) 2.6 (1.2-4.9) X10*3/uL [place] # (Auto) 0.4 (0.1-1.2) X10*3/uL Eos # (Auto) 0.1 (0.0-0.4) X10*3/uL Baso # (Auto) 0.1 (0.0-0.2) X10*3/uL Abs Immat Gran (auto) 0.03 (0.00-0.03) X10*3/uL Absolute Neuts (auto) 4.2 (2.0-8.3) x10*3/uL Absolute Nucleated RBC 0.000 (0.0-0.012) X10*3/uL Nucleated RBC % (auto) 0.0 (0.0-0.2) /100WBC Sodium 140 (135-145) mmol/L Potassium 3.7 (3.3-5.1) mmol/L Chloride 104 (96-108) mmol/L Carbon Dioxide 22 (22-29) mmol/L Anion Gap 18 (12-20) BUN 6 L (9-16) mg/dL Creatinine 0.51 (0.5-1.4) mg/dL Estim Creat Clear Calc 250.6 Estimated GFR > 60 Random Glucose 178 H D (60-115) mg/dL Calcium 10.1 (8.4-10.2) mg/dL Total Bilirubin 0.2 (0.0-1.0) mg/dL AST 52 H (5-37) U/L ALT 97 H (0-40) U/L Alkaline Phosphatase 90 (39-117) U/L Total Protein 8.2 H (6.5-8.0) g/dL Albumin 5.0 (3.5-5.0) g/dL Urine Opiates Screen (Not Detect) Urine Fentanyl Screen (Not Detect) Ur Barbiturates Screen (Not Detect) Ur Phencyclidine Scrn (Not Detect) Ur Amphetamines Screen (Not Detect) U Benzodiazepines Scrn (Not Detect) Urine Cocaine Screen (Not Detect) U Marijuana (THC) Screen (Not Detect) COVID-19 (TUSHAR) Negative (Negative) COVID-19 Clin Com See Note 08/02/22 Range/Units 01:20 WBC (4.8-10.8) X10*3/uL RBC (4.60-5.80) X10*6/uL Hgb (14.0-18.0) g/dl Hct (42.0-52.0) % MCV (80.0-98.0) fL MCH (27.0-33.0) pg MCHC (31.0-36.0) g/dl RDW (11.0-16.0) % Plt Count (160-400) X10*3/uL MPV (9.4-12.4) fL Immature Gran % (Auto) (0.0-0.4) % Neut % (Auto) (45-73) % Lymph % (Auto) (20-40) % [place] % (Auto) (2-11) % Eos % (Auto) (0-4) % Baso % (Auto) (0-2) % Lymph # (Auto) (1.2-4.9) X10*3/uL [place] # (Auto) (0.1-1.2) X10*3/uL Eos # (Auto) (0.0-0.4) X10*3/uL Baso # (Auto) (0.0-0.2) X10*3/uL Abs Immat Gran (auto) (0.00-0.03) X10*3/uL Absolute Neuts (auto) (2.0-8.3) x10*3/uL Absolute Nucleated RBC (0.0-0.012) X10*3/uL Nucleated RBC % (auto) (0.0-0.2) /100WBC Sodium (135-145) mmol/L Potassium (3.3-5.1) mmol/L Chloride (96-108) mmol/L Carbon Dioxide (22-29) mmol/L Anion Gap (12-20) BUN (9-16) mg/dL Creatinine (0.5-1.4) mg/dL Estim Creat Clear Calc Estimated GFR Random Glucose (60-115) mg/dL Calcium (8.4-10.2) mg/dL Total Bilirubin (0.0-1.0) mg/dL AST (5-37) U/L ALT (0-40) U/L Alkaline Phosphatase (39-117) U/L Total Protein (6.5-8.0) g/dL Albumin (3.5-5.0) g/dL Urine Opiates Screen Not Detected (Not Detect) Urine Fentanyl Screen Not Detected (Not Detect) Ur Barbiturates Screen Not Detected (Not Detect) Ur Phencyclidine Scrn Not Detected (Not Detect) Ur Amphetamines Screen Not Detected (Not Detect) U Benzodiazepines Scrn Not Detected (Not Detect) Urine Cocaine Screen Not Detected (Not Detect) U Marijuana (THC) Screen Not Detected (Not Detect) COVID-19 (TUSHAR) (Negative) COVID-19 Clin Com Discharge Plan Discharge Clinical Impression: Schizophrenia, paranoid, chronic with acute exacerbation, Hemorrhoid Patient Disposition: Still a Patient Instructions: Hemorrhoids (ED) Additional Instructions: continue using the hemorrhoid cream twice a day. continue taking your other medications as prescribed Follow-up with your doctor in 2 days. Please return to the emergency department if your symptoms get worse or if you develop any symptoms that are concerning to you. Prescriptions: No Action benztropine 0.5 mg tablet 1 tab PO BEDTIME clozapine 100 mg tablet 3.5 tab PO DAILY@1700 albuterol sulfate 90 mcg/actuation HFA aerosol inhaler 2 puff INHALATION Q4H PRN (Reason: Shortness Of Breath Or Wheezing) hydrocortisone [[employer]o-Med HC] 2.5 % cream with perineal applicator 1 appl [place] BID Qty: 30 0RF
[2022-08-02 01:41] LABS: Amphetamine Screen Urine Not Detected (Not Detect); Barbiturates, Urine Not Detected (Not Detect); Benzodiazepines Screen Urine Not Detected (Not Detect); Cannabinoid Screen Urine Not Detected (Not Detect); Cocaine Screen Urine Not Detected (Not Detect); Fentanyl, urine Not Detected (Not Detect); Opiate Screen Urine Not Detected (Not Detect); Phencyclidine Screen Urine Not Detected (Not Detect)
[2022-08-02 01:42] LABS: COVID-19 Test Negative (Negative)
[2022-08-02] MEDS: Ibuprofen 600 MG TABLET PO (02:19)
--- NOTE | 2022-08-02 04:18 | PC.NURSE ---
Patient was up talking to staff, asking for something for his hemorrhoids, he would like to pop them , Motrin is helping, Ice was offered for his anus, he refused that. Around 4 am patient when to bed sleeping comfortably, now 4:20am patient is up asking for milk. Patient can be load at times when is talking but able to be redirected.V/S stable. Will continue to monitor.
--- NOTE | 2022-08-02 07:04 | HE.PHANOTE ---
[RE: clozapine] Spoke to Duncan 08/02/22 @0700 and confirmed that pt's last dose on clozapine was 07/31/22 @1700; pt has [facility] nurse come
--- NOTE | 2022-08-02 07:22 | PC.NURSE ---
patient appears to remain asleep at present respirations are even and unlabored patient appears in no distress
== END 2022-08-02 10:20 | disposition home or self-care (01) ==
PROVIDERS: Emergency Provider Emergency Medicine Emergency Medical Services
DX: F20.0 Paranoid schizophrenia (principal); K64.4 Residual hemorrhoidal skin tags; F32.A Depression, unspecified; Z20.822 Contact with and (suspected) exposure to COVID-19; F12.90 Cannabis use, unspecified, uncomplicated; Z87.891 Personal history of nicotine dependence; Z79.899 Other long term (current) drug therapy
CPT/HCPCS: 36415; 80053; 80307; 85025; 87635; 99284

== ENCOUNTER 2022-08-10 11:09 | Outpatient (REF) | payer MEDICARE, SELFPAY ==
[2022-08-10 11:42] LABS: Neut%MD 66.5 %; WBCANC 10.5 X10*3/uL
[2022-08-14 16:46] LABS: Norclozapine 417 mcg/L (25-400)
[2022-08-15 07:08] LABS: Clozapine (Clozaril) 1219
== END 2022-08-10 11:10 | disposition home or self-care (01) ==
LOC: HO.LABR 11:09
PROVIDERS: Psychiatry & Neurology Psychiatry; Visit Provider Clinical Nurse Specialist Psychiatric/Mental Health, Adult
DX: Z79.899 Other long term (current) drug therapy (principal)
CPT/HCPCS: 36415; 80159; 85048

== ENCOUNTER 2022-08-13 12:18 | Emergency (ER) | payer MEDICARE, SELFPAY ==
[2022-08-13 12:55] VITALS: BP 128/110; PULSE 120; RESP 16; TEMP 37.1; O2SAT 95; BMI 31.9
[2022-08-13 14:24] VITALS: BP 125/84
--- NOTE | 2022-08-13 14:24 | PC.NURSE ---
pt brought in from fully ambulatory, escorted patient to exam room. Pt stated to author, I dont feel well , expressed understanding and asked pt to describe what was brining him to dept. pt repeated, i dont feel well two more times and pointed to his head.pt visibly nervous, pacing, repeatedly asking no tot be discharged as he doesnt feel well. Pt has a hx of MH conditions. pt denies SI/HI at this time. charge nurse aware, provider notified
--- NOTE | 2022-08-13 15:08 | ED.GENADULT ---
HPI - General Adult General Chief complaint: GI Bleed Stated complaint: Bleeding Hemorrhoids Time Seen by Provider: 08/13/22 14:31 Source: patient Mode of arrival: ambulatory History of Present Illness HPI narrative: 27-year-old male with history of schizophrenia, paranoia of and presents with complaints of rectal pain and noting that he was having some bleeding after pooping. Patient states that this is been ongoing for 2 months and that he has become progressively more and more depressed but denies any suicidal or homicidal ideation. He is requesting to speak with a behavioral interventionist. Related Data Home Medications Medication Instructions Recorded Confirmed albuterol sulfate 90 mcg/actuation 2 puff inhalation Q4H PRN 07/28/22 08/13/22 aerosol inhaler Shortness Of Breath Or Wheezing benztropine 0.5 mg tablet 1 tab PO DAILY 07/28/22 08/13/22 clozapine 100 mg tablet 3.5 tab PO DAILY 07/28/22 08/13/22 Previous Rx's Medication Instructions Recorded hydrocortisone 2.5 % topical cream 1 appl [place] BID #30 grams 07/28/22 with perineal applicator (Procto-Med HC) Allergies Allergy/AdvReac Type Severity Reaction Status Date / Time No Known Allergies Allergy Verified 02/19/22 03:39 [No Known Allergies*] Review of Systems Review of Systems: Pertinent positives and negatives as stated in HPI and 10 point review of systems is otherwise negative. [facility] Past Medical History Source: nursing notes reviewed Medical History Schizophrenia, paranoid, chronic with acute exacerbation Social History Social History Household Members: None Household Members Other:: 0 Housing: Apartment Do you presently have visiting nurse or other home services: No Unable to assess alcohol history related to: Refusing to respond Alcohol intake: unknown Patient Tobacco Use Status: Former Tobacco user Tobacco use type: Cigarette e-Cigarette/Vaping Use: Former Use Second Hand Smoke Exposure: No Substance Use Type: Marijuana Advance Directives: No Advance Directives Information Provided: No service: No Sexual orientation: Did not discuss Physical Exam ED Vital Signs: Vital Signs - 24 hr 08/13/22 12:55 08/13/22 14:24 08/13/22 15:09 Temperature 98.7 F 98.3 F Pulse Rate 120 H 116 H Respiratory Rate 16 20 Blood Pressure 128/110 H 125/84 128/87 Pulse Oximetry 95 98 Oxygen Delivery Method Room Air Room Air BMI result Body Mass Index 31.9 VITAL SIGNS: Reviewed. GENERAL: Well developed, well nourished, in no acute distress. HEAD: Normocephalic/atraumatic EYES: PERRLA, EOMI EARS: Ext canals without abnormality OROPHARYNX: no oral lesions noted, posterior pharynx clear LUNGS: Normal breath sounds. No adventitious sounds or accessory muscle use. SpO2<95> CARDIOVASCULAR: Regular rate and rhythm without noted murmurs ABDOMEN: Soft, non-tender, non-distended with bowel sounds. ALAN: No inflamed external hemorrhoids noted, however there is a skin tag that appears to be very irritated and friable at the 3 o'clock position, soft light brown stool without obvious blood, good rectal tone MUSCULOSKELETAL: No tenderness, deformities, or effusions noted on gross inspection. EXTREMITIES: No cyanosis, clubbing or edema. SKIN: Inspection of the skin reveals no rashes NEUROLOGIC: Alert and oriented x 4. Strength and sensation to light touch were grossly intact x 4, cranial nerves 2-12 are grossly intact.. PSYCH: Depressed /flat affect Course Course Course Narrative: 27-year-old male with history and clinical presentation consistent with anal skin tag, no evidence of thrombosed hemorrhoid or inflamed external hemorrhoids at this time. Will obtain basic labs to include stool guaiac and patient is also complaining increased depression and wishes to speak with a behavioral interventionist. He is currently declining any medication to help alleviate his discomfort at this time. Review of all investigations otherwise negative for acute findings such as a drop in hemoglobin. Will provide patient with a referral to says follow-up with Gastroenterology after he is been seen and evaluated by the behavioral team. He is otherwise medically cleared for further evaluation. Reevaluation(s) Reevaluation #1: Patient placed in physician observation because the patient needed more time for evaluation by the behavioral team. At the time observation was started the patient's vital signs were stable, patient is alert and oriented, neuro: Nonfocal, CV RRR, lungs clear Time: 16:02 Medical Decision Making Lab Data Result diagrams: 08/13/22 15:17 08/13/22 15:17 Labs: Lab Results 08/13/22 08/13/22 08/13/22 Range/Units 15:00 15:04 15:04 WBC (4.8-10.8) X10*3/uL RBC (4.60-5.80) X10*6/uL Hgb (14.0-18.0) g/dl Hct (42.0-52.0) % MCV (80.0-98.0) fL MCH (27.0-33.0) pg MCHC (31.0-36.0) g/dl RDW (11.0-16.0) % Plt Count (160-400) X10*3/uL MPV (9.4-12.4) fL Immature Gran % (Auto) (0.0-0.4) % Neut % (Auto) (45-73) % Lymph % (Auto) (20-40) % [place] % (Auto) (2-11) % Eos % (Auto) (0-4) % Baso % (Auto) (0-2) % Lymph # (Auto) (1.2-4.9) X10*3/uL [place] # (Auto) (0.1-1.2) X10*3/uL Eos # (Auto) (0.0-0.4) X10*3/uL Baso # (Auto) (0.0-0.2) X10*3/uL Abs Immat Gran (auto) (0.00-0.03) X10*3/uL Absolute Neuts (auto) (2.0-8.3) x10*3/uL Absolute Nucleated RBC (0.0-0.012) X10*3/uL Nucleated RBC % (auto) (0.0-0.2) /100WBC Sodium (135-145) mmol/L Potassium (3.3-5.1) mmol/L Chloride (96-108) mmol/L Carbon Dioxide (22-29) mmol/L Anion Gap (12-20) BUN (9-16) mg/dL Creatinine (0.5-1.4) mg/dL Estim Creat Clear Calc Estimated GFR Random Glucose (60-115) mg/dL Calcium (8.4-10.2) mg/dL Total Bilirubin (0.0-1.0) mg/dL AST (5-37) U/L ALT (0-40) U/L Alkaline Phosphatase (39-117) U/L Total Protein (6.5-8.0) g/dL Albumin (3.5-5.0) g/dL Urine Color Yellow Urine Appearance Clear Urine pH 7.5 (5.0-9.0) Ur Specific Gary <= 1.005 (1.005-1.025) Urine Protein Negative (Neg-Trace) mg/dL Urine Glucose (UA) Negative (Negative) mg/dL Urine Ketones Negative (Negative) mg/dL Urine Blood Negative (Negative) Urine Nitrite Negative (Negative) Ur Leukocyte Esterase Negative (Negative) Stool Occult Blood POSITIVE (NEGATIVE) Urine Opiates Screen Not Detected (Not Detect) Urine Fentanyl Screen Not Detected (Not Detect) Ur Barbiturates Screen Not Detected (Not Detect) Ur Phencyclidine Scrn Not Detected (Not Detect) Ur Amphetamines Screen Not Detected (Not Detect) U Benzodiazepines Scrn Not Detected (Not Detect) Urine Cocaine Screen Not Detected (Not Detect) U Marijuana (THC) Screen Not Detected (Not Detect) COVID-19 (TUSHAR) (Negative) COVID-19 Clin Com 08/13/22 08/13/22 08/13/22 Range/Units 15:17 15:17 15:17 WBC 8.8 (4.8-10.8) X10*3/uL RBC 5.32 (4.60-5.80) X10*6/uL Hgb 15.4 (14.0-18.0) g/dl Hct 44.2 (42.0-52.0) % MCV 83.1 (80.0-98.0) fL MCH 28.9 (27.0-33.0) pg MCHC 34.8 (31.0-36.0) g/dl RDW 13.2 (11.0-16.0) % Plt Count 304 (160-400) X10*3/uL MPV 10.7 (9.4-12.4) fL Immature Gran % (Auto) 0.3 (0.0-0.4) % Neut % (Auto) 54.9 (45-73) % Lymph % (Auto) 36.0 (20-40) % [place] % (Auto) 6.8 (2-11) % Eos % (Auto) 1.5 (0-4) % Baso % (Auto) 0.5 (0-2) % Lymph # (Auto) 3.2 (1.2-4.9) X10*3/uL [place] # (Auto) 0.6 (0.1-1.2) X10*3/uL Eos # (Auto) 0.1 (0.0-0.4) X10*3/uL Baso # (Auto) 0.0 (0.0-0.2) X10*3/uL Abs Immat Gran (auto) 0.03 (0.00-0.03) X10*3/uL Absolute Neuts (auto) 4.8 (2.0-8.3) x10*3/uL Absolute Nucleated RBC 0.000 (0.0-0.012) X10*3/uL Nucleated RBC % (auto) 0.0 (0.0-0.2) /100WBC Sodium 142 (135-145) mmol/L Potassium 3.9 (3.3-5.1) mmol/L Chloride 104 (96-108) mmol/L Carbon Dioxide 27 (22-29) mmol/L Anion Gap 15 (12-20) BUN 7 L (9-16) mg/dL Creatinine 0.84 (0.5-1.4) mg/dL Estim Creat Clear Calc 145.2 Estimated GFR > 60 Random Glucose 143 H (60-115) mg/dL Calcium 10.2 (8.4-10.2) mg/dL Total Bilirubin 0.4 (0.0-1.0) mg/dL AST 50 H (5-37) U/L ALT 94 H (0-40) U/L Alkaline Phosphatase 92 (39-117) U/L Total Protein 8.0 (6.5-8.0) g/dL Albumin 5.0 (3.5-5.0) g/dL Urine Color Urine Appearance Urine pH (5.0-9.0) Ur Specific Gary (1.005-1.025) Urine Protein (Neg-Trace) mg/dL Urine Glucose (UA) (Negative) mg/dL Urine Ketones (Negative) mg/dL Urine Blood (Negative) Urine Nitrite (Negative) Ur Leukocyte Esterase (Negative) Stool Occult Blood (NEGATIVE) Urine Opiates Screen (Not Detect) Urine Fentanyl Screen (Not Detect) Ur Barbiturates Screen (Not Detect) Ur Phencyclidine Scrn (Not Detect) Ur Amphetamines Screen (Not Detect) U Benzodiazepines Scrn (Not Detect) Urine Cocaine Screen (Not Detect) U Marijuana (THC) Screen (Not Detect) COVID-19 (TUSHAR) Negative (Negative) COVID-19 Clin Com See Note Discharge Plan Discharge Clinical Impression: Pain, rectal, Depression Patient Disposition: Still a Patient Prescriptions: No Action benztropine 0.5 mg tablet 1 tab PO DAILY clozapine 100 mg tablet 3.5 tab PO DAILY Rx Instructions: VERIFIED WITH ENGINEERING TEST MECHANIC - PT TOOK TODAY 08/13/22 albuterol sulfate 90 mcg/actuation HFA aerosol inhaler 2 puff INHALATION Q4H PRN (Reason: Shortness Of Breath Or Wheezing) hydrocortisone [Procto-Med HC] 2.5 % cream with perineal applicator 1 appl UT BID Qty: 30 0RF Referrals: Maximilian Brooke [Physician] -
[2022-08-13 15:09] VITALS: BP 128/87; PULSE 116; RESP 20; TEMP 36.8; O2SAT 98
[2022-08-13 15:13] LABS: OBS Int Ctl Valid YES; OBS1 POSITIVE (NEGATIVE)
[2022-08-13 15:14] LABS: Appearance Urine Clear; Color Urine Yellow; Glucose Urine UA Negative (Negative); Leukocyte Esterase Urine Negative (Negative); Nitrite Urine Negative (Negative); PH 7.5 (5.0-9.0); Specific Gravity - Urine <= 1.005 (1.005-1.025); Urine Blood Negative (Negative); Urine Ketones Negative (Negative); Urine Protein Negative (Neg-Trace)
[2022-08-13 15:25] LABS: Amphetamine Screen Urine Not Detected (Not Detect); Barbiturates, Urine Not Detected (Not Detect); Benzodiazepines Screen Urine Not Detected (Not Detect); Cannabinoid Screen Urine Not Detected (Not Detect); Cocaine Screen Urine Not Detected (Not Detect); Fentanyl, urine Not Detected (Not Detect); Opiate Screen Urine Not Detected (Not Detect); Phencyclidine Screen Urine Not Detected (Not Detect)
[2022-08-13 15:31] LABS: MANUAL DIFF FLAG NO
[2022-08-13 15:32] LABS: Basophils Percent Auto 0.5 % (0-2); Eosinophils Absolute Auto 0.1 X10*3/uL (0.0-0.4); Eosinophils Percent Auto 1.5 % (0-4); Hematocrit 44.2 % (42.0-52.0); Hemoglobin 15.4 g/dl (14.0-18.0); Imm Gran Abs Auto 0.03 X10*3/uL (0.00-0.03); Imm Gran Pct Auto 0.3 % (0.0-0.4); Lymphocytes Absolute Auto 3.2 X10*3/uL (1.2-4.9); Mean Corpuscular HGB Conc 34.8 g/dl (31.0-36.0); Mean Corpuscular Hemoglobin 28.9 pg (27.0-33.0); Mean Corpuscular Volume 83.1 fL (80.0-98.0); Mean Platelet Volume 10.7 fL (9.4-12.4); Monocytes Absolute Auto 0.6 X10*3/uL (0.1-1.2); Monocytes Percent Auto 6.8 % (2-11); Neutrophils Absolute Auto 4.8 x10*3/uL (2.0-8.3); Neutrophils Percent Auto 54.9 % (45-73); Platelet Count 304 X10*3/uL (160-400); Red Blood Count 5.32 X10*6/uL (4.60-5.80); Red Cell Distribution Width 13.2 % (11.0-16.0); White Blood Count 8.8 X10*3/uL (4.8-10.8)
[2022-08-13 15:49] LABS: COVID-19 Test Negative (Negative); IDNOW Serial# 9DB6401D
[2022-08-13 15:54] LABS: Alanine Aminotransferase 94 U/L (0-40); Alkaline Phosphatase 92 U/L (39-117); Anion Gap 15 (12-20); Aspartate Amino Transferase 50 U/L (5-37); Bilirubin Total 0.4 mg/dL (0.0-1.0); Blood Urea Nitrogen 7 mg/dL (9-16); Calcium 10.2 mg/dL (8.4-10.2); Carbon Dioxide 27 mmol/L (22-29); Chloride 104 mmol/L (96-108); Creatinine Clr Calc Pharmacy 145.2; Estimated Glomerular Filt Rate > 60; Glucose Random 143 mg/dL (60-115); Potassium 3.9 mmol/L (3.3-5.1); Sodium 142 mmol/L (135-145)
--- NOTE | 2022-08-13 16:10 | PHA.MEDREC ---
Pharmacy Consult ? Medication Reconciliation Pharmacy has completed the medication reconciliation. Spoke with patient in the ED and also called patients TEST SKEIN WINDER. Patient took all meds today, including clozaril
--- NOTE | 2022-08-13 20:31 | MHC.CARE ---
Pt? 27 year old male [place] [facility] [place] with complaints of GI bleeding and?increased depression for the past 2 months. Care Team met with the pt in Pod room 2. Pt reported he was depressed due to feeling alone. Pt stated his grandmother in 2006 and all of his friends have or moved to a different area. Pt reports he visits [facility] psychiatrist and therapist, however, pt does not recall their names or next appointments. Pt stated a visiting nurse visits Saturday thru Saturday in the morning and follows up with him in the weekend to remind him of his weekend medication. Pt denies SI/HI/AVH. Disposition was discussed with ?Kaykay Kline MD?and Chandrika HERNANDEZ both were in agreement with pt being discharged home.
== END 2022-08-13 20:36 | disposition home or self-care (01) ==
PROVIDERS: Emergency Provider Student in an Organized Health Care Education/Training Program
DX: K62.89 Other specified diseases of anus and rectum (principal); K64.4 Residual hemorrhoidal skin tags; F32.A Depression, unspecified; F20.0 Paranoid schizophrenia; Z20.822 Contact with and (suspected) exposure to COVID-19; F12.90 Cannabis use, unspecified, uncomplicated; Z87.891 Personal history of nicotine dependence; Z79.899 Other long term (current) drug therapy
CPT/HCPCS: 80053; 80307; 81003; 82272; 85025; 87635; 99284

== ENCOUNTER 2022-08-24 12:44 | Outpatient (REF) | payer MEDICARE, SELFPAY ==
[2022-08-24 13:27] LABS: Neut%MD 66.2 %; Neutrophils Absolute Auto 6.8 x10*3/uL (2.0-8.3); WBCANC 10.3 X10*3/uL
== END 2022-08-24 12:45 | disposition home or self-care (01) ==
LOC: HO.LABR 12:44
PROVIDERS: Visit Provider Psychiatry & Neurology Psychiatry
DX: Z79.899 Other long term (current) drug therapy (principal)
CPT/HCPCS: 36415; 85048

== ENCOUNTER 2022-08-31 11:52 | Outpatient (REF) | payer MEDICARE, SELFPAY ==
[2022-08-31 12:50] LABS: Neut%MD 57.8 %; Neutrophils Absolute Auto 4.2 x10*3/uL (2.0-8.3); WBCANC 7.3 X10*3/uL
== END 2022-08-31 11:53 | disposition home or self-care (01) ==
LOC: HO.LABR 11:52
PROVIDERS: Visit Provider Psychiatry & Neurology Psychiatry
DX: Z79.899 Other long term (current) drug therapy (principal)
CPT/HCPCS: 36415; 85048

== ENCOUNTER 2022-09-02 03:15 | Emergency (ER) | payer MEDICARE, SELFPAY ==
[2022-09-02 03:18] VITALS: BP 135/87; PULSE 117; RESP 19; TEMP 36.4; O2SAT 96; BMI 34.9
--- NOTE | 2022-09-02 03:24 | ECG_ITS ---
Test Reason : cp Blood Pressure : / mmHG Vent. Rate : 108 BPM Atrial Rate : 108 BPM P-R Int : 166 ms QRS Dur : 092 ms QT Int : 354 ms P-R-T Axes : 045 068 045 degrees QTc Int : 474 ms Sinus tachycardia Nonspecific ST abnormality Abnormal ECG When compared with ECG of 15-APR-2022 17:26, No significant changes seen Referred By: Generic ED Physician Electronically Signed By:KELSEY COPPOLA MD
[2022-09-02 03:36] LABS: MANUAL DIFF FLAG NO
[2022-09-02 03:37] LABS: Basophils Absolute Auto 0.1 X10*3/uL (0.0-0.2); Basophils Percent Auto 0.7 % (0-2); Eosinophils Absolute Auto 0.2 X10*3/uL (0.0-0.4); Eosinophils Percent Auto 1.7 % (0-4); Hematocrit 43.7 % (42.0-52.0); Hemoglobin 15.1 g/dl (14.0-18.0); Imm Gran Abs Auto 0.04 X10*3/uL (0.00-0.03); Imm Gran Pct Auto 0.4 % (0.0-0.4); Lymphocytes Percent Auto 37.6 % (20-40); Mean Corpuscular HGB Conc 34.6 g/dl (31.0-36.0); Mean Corpuscular Hemoglobin 29.2 pg (27.0-33.0); Mean Corpuscular Volume 84.4 fL (80.0-98.0); Mean Platelet Volume 10.3 fL (9.4-12.4); Monocytes Absolute Auto 0.6 X10*3/uL (0.1-1.2); Monocytes Percent Auto 5.8 % (2-11); Neutrophils Absolute Auto 5.7 x10*3/uL (2.0-8.3); Neutrophils Percent Auto 53.8 % (45-73); Platelet Count 275 X10*3/uL (160-400); Red Blood Count 5.18 X10*6/uL (4.60-5.80); White Blood Count 10.6 X10*3/uL (4.8-10.8)
[2022-09-02 03:57] LABS: Alanine Aminotransferase 83 U/L (0-40); Albumin Level 4.8 g/dL (3.5-5.0); Alkaline Phosphatase 80 U/L (39-117); Anion Gap 19 (12-20); Aspartate Amino Transferase 42 U/L (5-37); Bilirubin Total 0.3 mg/dL (0.0-1.0); Blood Urea Nitrogen 8 mg/dL (9-16); Calcium 9.9 mg/dL (8.4-10.2); Carbon Dioxide 23 mmol/L (22-29); Chloride 104 mmol/L (96-108); Creatinine Clr Calc Pharmacy 184.9; Estimated Glomerular Filt Rate > 60; Glucose Random 121 mg/dL (60-115); Potassium 3.5 mmol/L (3.3-5.1); Sodium 142 mmol/L (135-145); Total Protein 8.2 g/dL (6.5-8.0)
--- NOTE | 2022-09-02 04:08 | PC.NURSE ---
Pt. on child monitor at this time
[2022-09-02 04:10] VITALS: BP 123/84; PULSE 97; RESP 18; TEMP 36.7; O2SAT 96
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
[2022-09-02 06:31] VITALS: BP 119/80; PULSE 80; RESP 18; O2SAT 98
[2022-09-02] MEDS: Albuterol Sulfate 90 MCG 8 GM INHALER 2 PUFF INHALE (06:31)
--- NOTE | 2022-09-02 06:38 | PC.NURSE ---
Pt. c/o foot fungus. Alphonse May MD notified. Awaiting new orders at this time.
== END 2022-09-02 07:14 | disposition home or self-care (01) ==
PROVIDERS: Emergency Provider Emergency Medicine Emergency Medical Services
DX: J45.901 Unspecified asthma with (acute) exacerbation (principal); B35.3 Tinea pedis; F17.210 Nicotine dependence, cigarettes, uncomplicated; F12.90 Cannabis use, unspecified, uncomplicated
CPT/HCPCS: 36415; 80053; 85025; 93005; 99284

== ENCOUNTER 2022-09-14 12:38 | Outpatient (REF) | payer MEDICARE, SELFPAY ==
[2022-09-14 13:12] LABS: Neut%MD 56.6 %; Neutrophils Absolute Auto 5.1 x10*3/uL (2.0-8.3)
== END 2022-09-14 12:39 | disposition home or self-care (01) ==
LOC: HO.LAB 12:38
PROVIDERS: Visit Provider Psychiatry & Neurology Psychiatry
DX: Z79.899 Other long term (current) drug therapy (principal)
CPT/HCPCS: 36415; 85048

== ENCOUNTER 2022-09-21 12:29 | Outpatient (REF) | payer MEDICARE, SELFPAY ==
[2022-09-21 12:50] LABS: Neut%MD 66.2 %; Neutrophils Absolute Auto 6.8 x10*3/uL (2.0-8.3); WBCANC 10.3 X10*3/uL
== END 2022-09-21 12:30 | disposition home or self-care (01) ==
LOC: HO.LABR 12:29
PROVIDERS: Visit Provider Psychiatry & Neurology Psychiatry
DX: Z79.899 Other long term (current) drug therapy (principal)
CPT/HCPCS: 36415; 85048

== ENCOUNTER 2022-10-02 13:08 | Emergency (ER) | payer MEDICARE, SELFPAY ==
[2022-10-02 16:17] VITALS: BP 111/75; PULSE 70; RESP 18; TEMP 36.4; O2SAT 100; BMI 31.9
--- NOTE | 2022-10-02 16:17 | ED.GENADULT ---
HPI - General Adult General Chief complaint: General Medical Stated complaint: Flu Symptoms Time Seen by Provider: 10/02/22 17:36 Related Data Home Medications Medication Instructions Recorded Confirmed albuterol sulfate 90 mcg/actuation 2 puff inhalation Q4H PRN 07/28/22 08/13/22 aerosol inhaler Shortness Of Breath Or Wheezing benztropine 0.5 mg tablet 1 tab PO DAILY 07/28/22 08/13/22 clozapine 100 mg tablet 350 mg PO DAILY 07/28/22 08/13/22 Previous Rx's Medication Instructions Recorded hydrocortisone 2.5 % topical cream 1 appl [place] BID #30 grams 07/28/22 with perineal applicator (Procto-Med HC) albuterol sulfate 90 mcg/actuation 2 puff inhalation Q4-6H PRN 09/02/22 aerosol inhaler (ProAir HFA) shortness of breath or wheezing #6.7 grams nystatin 100,000 unit/gram topical 1 appl topical BID #15 grams 09/02/22 ointment Allergies Allergy/AdvReac Type Severity Reaction Status Date / Time No Known Allergies Allergy Verified 10/02/22 16:17 [No Known Allergies*] [facility] Past Medical History Medical History Schizophrenia, paranoid, chronic with acute exacerbation Social History Social History Household Members: None Household Members Other:: 0 Housing: Apartment Do you presently have visiting nurse or other home services: No Unable to assess alcohol history related to: Refusing to respond Alcohol intake: current Alcohol intake frequency: a few times a week Patient Tobacco Use Status: Current everyday Tobacco user Tobacco use type: Cigarette e-Cigarette/Vaping Use: Former Use Second Hand Smoke Exposure: No Substance Use Type: Marijuana service: No Sexual orientation: Did not discuss Physical Exam ED Vital Signs: BMI result Body Mass Index 31.9 Course Course Course Narrative: 27M c/o vomiting, coughing, diarrhea for several days. He denies suicidal ideation or homicidal ideation. No fevers or chills. VITAL SIGNS: Reviewed. GENERAL: Well developed, well nourished, in no acute distress. HEAD: Normocephalic/atraumatic EYES: PERRLA, EOMI EARS: Ext canals without abnormality, TMs non-bulging and non-erythematous NOSE: Nares patent bilateral OROPHARYNX: no oral lesions noted, posterior pharynx clear and non-erythematous without noted tonsillar enlargement/erythema/exudates NECK: Supple, no adenopathy LUNGS: Normal breath sounds. No adventitious sounds or accessory muscle use. CARDIOVASCULAR: Regular rate and rhythm without noted murmurs ABDOMEN: Soft, non-tender, non-distended with bowel sounds. MUSCULOSKELETAL: No tenderness, deformities, or effusions noted on gross inspection. EXTREMITIES: No cyanosis, clubbing or edema. SKIN: Inspection of the skin reveals no rashes NEUROLOGIC: Alert and oriented x 4. Strength and sensation to light touch were grossly intact x 4. 27M with presentation for nausea and diarrhea. Medical Decision Making Lab Data Labs: Lab Results 10/02/22 Range/Units 16:26 Influenza Type A (PCR) NEGATIVE (Negative) Influenza Type B (PCR) NEGATIVE (Negative) RSV RNA Qual (PCR) NEGATIVE (Negative) SARS-CoV-2 RNA (RT-PCR) NEGATIVE (Negative) Discharge Plan Discharge Clinical Impression: Nausea & vomiting Patient Disposition: Elopement Prescriptions: No Action benztropine 0.5 mg tablet 1 tab PO DAILY clozapine 100 mg tablet 350 mg PO DAILY Rx Instructions: VERIFIED WITH HEAT TREAT FURNACE OPERATOR - PT TOOK TODAY 08/13/22 albuterol sulfate 90 mcg/actuation HFA aerosol inhaler 2 puff INHALATION Q4H PRN (Reason: Shortness Of Breath Or Wheezing) hydrocortisone [Procto-Med HC] 2.5 % cream with perineal applicator 1 appl [place] BID Qty: 30 0RF albuterol sulfate [ProAir HFA] 90 mcg/actuation HFA aerosol inhaler 2 puff inhalation Q4-6H PRN (Reason: shortness of breath or wheezing) Qty: 6.7 0RF nystatin 100,000 unit/gram ointment 1 appl topical BID Qty: 15 0RF Discharge Date/Time: 10/02/22 18:40
[2022-10-02 17:25] LABS: Influenza A PCR NEGATIVE (Negative); Influenza B PCR NEGATIVE (Negative); Resp Syncy Virus RNA Qual PCR NEGATIVE (Negative); SARS COV2 PCR INHOUSE NEGATIVE (Negative)
== END 2022-10-02 18:40 | disposition left against medical advice (07) ==
PROVIDERS: Student in an Organized Health Care Education/Training Program; Emergency Provider Emergency Medicine
DX: R05.9 Cough, unspecified (principal); F17.210 Nicotine dependence, cigarettes, uncomplicated; Z20.822 Contact with and (suspected) exposure to COVID-19; Z71.6 Tobacco abuse counseling
CPT/HCPCS: 0241U; 99282; 99283

== ENCOUNTER 2022-10-05 13:27 | Outpatient (REF) | payer MEDICARE, SELFPAY ==
[2022-10-05 13:44] LABS: Neut%MD 59.3 %; Neutrophils Absolute Auto 5.4 x10*3/uL (2.0-8.3); WBCANC 9.2 X10*3/uL
== END 2022-10-05 13:28 | disposition home or self-care (01) ==
LOC: HO.LABR 13:27
PROVIDERS: Visit Provider Psychiatry & Neurology Psychiatry
DX: Z79.899 Other long term (current) drug therapy (principal)
CPT/HCPCS: 36415; 85048

== ENCOUNTER 2022-10-17 15:32 | Outpatient (REF) | payer MEDICARE, SELFPAY ==
[2022-10-17 16:47] LABS: Neut%MD 58.2 %; Neutrophils Absolute Auto 5.2 x10*3/uL (2.0-8.3); WBCANC 8.9 X10*3/uL
== END 2022-10-17 15:33 | disposition home or self-care (01) ==
LOC: HO.LABR 15:32
PROVIDERS: Visit Provider Psychiatry & Neurology Psychiatry
DX: Z79.899 Other long term (current) drug therapy (principal)
CPT/HCPCS: 36415; 85048

== ENCOUNTER 2022-11-09 12:28 | Outpatient (REF) | payer MEDICARE, SELFPAY | END 2022-11-09 12:29 | disposition home or self-care (01) | LOC: HO.LABR 12:28 | PROVIDERS: Visit Provider Psychiatry & Neurology Psychiatry | DX: Z13.89 Encounter for screening for other disorder (principal) ==

== ENCOUNTER 2022-11-26 10:56 | Outpatient (REF) | payer MEDICARE, SELFPAY ==
[2022-11-29 09:59] LABS: Neutrophil Cyto Ab Screen NEGATIVE (NEGATIVE)
== END 2022-11-26 10:57 | disposition home or self-care (01) ==
LOC: HO.LABR 10:56
PROVIDERS: Visit Provider Psychiatry & Neurology Psychiatry
DX: Z79.899 Other long term (current) drug therapy (principal)
CPT/HCPCS: 36415; 86036; 86037

== ENCOUNTER 2022-12-05 14:44 | Outpatient (REF) | payer MEDICARE, SELFPAY ==
[2022-12-05 15:08] LABS: Neut%MD 60.8 %; Neutrophils Absolute Auto 5.8 x10*3/uL (2.0-8.3); WBCANC 9.6 X10*3/uL
[2022-12-10 02:49] LABS: Norclozapine 458 mcg/L (25-400)
[2022-12-10 12:14] LABS: Clozapine (Clozaril) 1291
== END 2022-12-05 14:45 | disposition home or self-care (01) ==
LOC: HO.LABR 14:44
PROVIDERS: Visit Provider Psychiatry & Neurology Psychiatry
DX: Z79.899 Other long term (current) drug therapy (principal)
CPT/HCPCS: 36415; 80159; 85048

== ENCOUNTER 2022-12-14 21:04 | Emergency (ER) | payer MEDICARE, MEDICAID, SELFPAY | END 2022-12-14 22:56 | disposition left against medical advice (07) | PROVIDERS: Emergency Provider Emergency Medicine | DX: R51.9 Headache, unspecified (principal); M79.10 Myalgia, unspecified site; F33.1 Major depressive disorder, recurrent, moderate ==

== ENCOUNTER 2022-12-18 11:13 | Outpatient (REF) | payer MEDICARE, SELFPAY ==
[2022-12-18 12:40] LABS: Neut%MD 60.4 %; Neutrophils Absolute Auto 4.6 x10*3/uL (2.0-8.3); WBCANC 7.7 X10*3/uL
[2022-12-21 17:53] LABS: Norclozapine 408 mcg/L (25-400)
[2022-12-25 07:19] LABS: Clozapine (Clozaril) 1348
== END 2022-12-18 11:14 | disposition home or self-care (01) ==
LOC: HO.LAB 11:13
PROVIDERS: Visit Provider Psychiatry & Neurology Psychiatry
DX: Z79.899 Other long term (current) drug therapy (principal)
CPT/HCPCS: 36415; 80159; 85048

== ENCOUNTER 2022-12-18 11:36 | Emergency (ER) | payer MEDICARE, MEDICAID, SELFPAY ==
--- NOTE | ~2022-12-18 | XR_ITS ---
EXAMINATION: XR CHEST CLINICAL INFORMATION: Chest pain COMPARISON: None TECHNIQUE: 2 views of the chest were obtained. FINDINGS: Lungs are mildly hypoinflated and clear. Trachea is midline in position. No interstitial disease, consolidation or mass. No pleural effusion or pneumothorax. Cardiac silhouette and pulmonary vessels are normal in size. The mediastinum and hector have normal contour. The visualized bones, and upper abdomen, are unremarkable. XR/XR chest 2V IMPRESSION: No acute cardiopulmonary abnormality.
--- NOTE | 2022-12-18 12:00 | ED.GENADULT ---
HPI - General Adult General Chief complaint: Upper Respiratory Symptoms <Lakesha Cifuentes CNP - Last Filed: 12/18/22 12:09> Stated complaint: Body aches/Headache <Lakesha Cifuentes CNP - Last Filed: 12/18/22 12:09> Time Seen by Provider: 12/18/22 12:14 <Lakesha Cifuentes CNP - Last Filed: 12/18/22 12:09> Source: patient and old records reviewed <MAYO Hollins - Last Filed: 12/18/22 15:53> Mode of arrival: ambulatory <MAYO Hollins - Last Filed: 12/18/22 15:53> Limitations: no limitations <MAYO Hollins - Last Filed: 12/18/22 15:53> History of Present Illness HPI narrative: 27 yo male with history of asthma, depression, paranoid schizophrenia requiring admission to [facility] in the past who presents to the ER for evaluation of body aches, brain pain, and depression. He states for the last 3 days he has slept much more than usual and he is afraid he was not going to ever wake up. He states he has had diffuse body aches and pains along with nausea and 1 episode of vomiting. He is quitting smoking and reports increased anxiety. He does not leave the house because he is afraid he might go smoke. He states he is depressed and anxious. Denies SI or HI. Difficult to follow while obtaining a history. He states he has a provider come to his house and prescribe him medication for his depression. He denies illicit drugs or ETOH, only occasional marijuana use that makes his anxiety better. <MAYO Hollins - Last Filed: 12/18/22 15:53> MD complaint: body aches, depression <MAYO Hollins - Last Filed: 12/18/22 15:53> Onset (ago): unknown <MAYO Hollins Last Filed: 12/18/22 15:53> Pain Consistency: constant <MAYO Hollins Last Filed: 12/18/22 15:53> Relieving factors: none <MAYO Hollins Last Filed: 12/18/22 15:53> Exacerbating factors: none <MAYO Hollins - Last Filed: 12/18/22 15:53> Associated symptoms: confusion, headaches, loss of appetite, malaise and other (depression, anxiety) <MAYO Hollins - Last Filed: 12/18/22 15:53> Treatments prior to arrival: none <MAOY Hollins - Last Filed: 12/18/22 15:53> Related Data Home medications: Home Medications Medication Instructions Recorded Confirmed albuterol sulfate 90 mcg/actuation 2 puff inhalation Q4-6H PRN 12/18/22 12/18/22 aerosol inhaler Wheezing benztropine 0.5 mg tablet 0.5 mg PO BEDTIME 12/18/22 12/18/22 clozapine 100 mg tablet 350 mg PO BEDTIME 12/18/22 12/18/22 <Lakesha Cifuentes CNP - Last Filed: 12/18/22 12:09> Allergies/adverse reactions: Allergies Allergy/AdvReac Type Severity Reaction Status Date / Time No Known Allergies Allergy Verified 12/18/22 12:03 <Lakesha Cifuentes CNP - Last Filed: 12/18/22 12:09> Review of Systems Review of Systems: Yes all other systems are reviewed and are negative <MAYO Hollins - Last Filed: 12/18/22 15:53> [facility] Social History Social History: Social History Alcohol intake: unknown Smoked in Last 30 Days: Yes Use of substances other than those prescribed or required for medical reasons: Unknown Advance Directives: No Advance Directives Information Provided: No <Lakesha Cifuentes CNP - Last Filed: 12/18/22 12:09> Physical Exam ED Vital Signs: Vital Signs - 24 hr 12/18/22 12:01 12/18/22 13:01 12/18/22 13:01 Temperature 97.9 F Pulse Rate 124 H Respiratory Rate 18 18 Blood Pressure 122/76 Pulse Oximetry 95 96 Oxygen Delivery Method Room Air Room Air 12/18/22 14:00 Temperature Pulse Rate Respiratory Rate 18 Blood Pressure Pulse Oximetry Oxygen Delivery Method BMI result Body Mass Index 38.0 <Lakesha Cifuentes CNP - Last Filed: 12/18/22 12:09> Vital Signs - 24 hr 12/18/22 12:01 12/18/22 13:01 12/18/22 13:01 Temperature 97.9 F Pulse Rate 124 H Respiratory Rate 18 18 Blood Pressure 122/76 Pulse Oximetry 95 96 Oxygen Delivery Method Room Air Room Air 12/18/22 14:00 Temperature Pulse Rate Respiratory Rate 18 Blood Pressure Pulse Oximetry Oxygen Delivery Method BMI result Body Mass Index 38.0 <MAYO Hollins - Last Filed: 12/18/22 15:53> Appearance: Alert. Oriented X3. No acute distress. Eyes: Pupils equal, round and reactive to light. ENT: Pharynx normal. Neck: Normal inspection. Neck supple. CVS: Normal heart rate and rhythm. Pulses normal. Respiratory: No respiratory distress. Breath sounds normal. Abdomen: Soft and nontender. +BS x4 Skin: Skin warm and dry. Normal skin color. Normal skin turgor. No rashes. Extremities: No lower extremity edema. Neuro/psych: Oriented X 3. No motor deficit. No sensory deficit. CN II-XII intact. Steady gait. Paranoid, anxious, depressed mood. flight of ideas, unorganized thoughts, memory loss <MAYO Hollins - Last Filed: 12/18/22 15:53> Course Course Course Narrative: This is an RME: Additional HPI, ROS, PE not included below will be deferred to primary provider. Patient is a 27 year old male presenting to the ED for evaluation of 2-3 days with body aches, headache, cough, nausea. Vague mentions of chest pain. Difficult to obtain a clear story from patient, repeating himself constantly my body hurts, i don't know why . when asking questions he respond frequently with inappropriate answers. Denies ETOH or recreational drugs, sometimes smoke marijuana. States someone cam to his house to give him medicine and then left . Reports feeling depressed, but denies SI/HI when asked. States he came here 2 days ago, but they never called me so he went home, no history of prior visit noted in record. States he just had blood drawn today, gauze noted to arm, appears as though patient has second chard under [facility] Morrison Jr Tachycardic with HR 120's Plan: labs, viral testing, EKG <Lakesha Cifuentes CNP - Last Filed: 12/18/22 12:09> Reevaluation(s) Reevaluation #1: Patient has another account under Nura Morrison - was hospitalized for paranoid schizophrenia Summer 2021 with auditory hallucinations Will get medical clearance and have CARE team evaluate him. <MAYO Hollins - Last Filed: 12/18/22 15:53> Reevaluation #2: labs showing mildly elevated LFT's. Ca++ slightly elevated. may be slightly dehydated. will encouarge po fluids. transferred to the behavioral pod for further management. will get CARE team to see him. med rec with Cloazaril, will need to confirm last dose Physician observation started at 13:20. Patient placed in physician observation because patient is awaiting [facility] evaluation for the possible need of inpatient psych admission. At the time observation was started patient's vital signs were stable. Patient is alert and oriented. Neuro exam is non-focal. CV: RRR and lungs are clear. Will continue to monitor. <MAYO Hollins - Last Filed: 12/18/22 15:53> Medical Decision Making Lab Data Result Diagrams: 12/18/22 12:41 12/18/22 12:41 <Lakesha Cifuentes CNP - Last Filed: 12/18/22 12:09> Labs: Lab Results 12/18/22 12/18/22 12/18/22 Range/Units 12:41 12:41 12:41 WBC 9.1 (4.8-10.8) X10*3/uL RBC 5.98 H (4.60-5.80) X10*6/uL Hgb 17.5 (14.0-18.0) g/dl Hct 50.2 (42.0-52.0) % MCV 83.9 (80.0-98.0) fL MCH 29.3 (27.0-33.0) pg MCHC 34.9 (31.0-36.0) g/dl RDW 11.9 (11.0-16.0) % Plt Count 348 (160-400) X10*3/uL MPV 10.8 (9.4-12.4) fL Immature Gran % (Auto) 0.4 (0.0-0.4) % Neut % (Auto) 63.1 (45-73) % Lymph % (Auto) 29.4 (20-40) % [place] % (Auto) 5.2 (2-11) % Eos % (Auto) 1.3 (0-4) % Baso % (Auto) 0.6 (0-2) % Lymph # (Auto) 2.7 (1.2-4.9) X10*3/uL [place] # (Auto) 0.5 (0.1-1.2) X10*3/uL Eos # (Auto) 0.1 (0.0-0.4) X10*3/uL Baso # (Auto) 0.1 (0.0-0.2) X10*3/uL Abs Immat Gran (auto) 0.04 H (0.00-0.03) X10*3/uL Absolute Neuts (auto) 5.7 (2.0-8.3) x10*3/uL Absolute Nucleated RBC 0.000 (0.0-0.012) X10*3/uL Nucleated RBC % (auto) 0.0 (0.0-0.2) /100WBC Sodium (135-145) mmol/L Potassium (3.3-5.1) mmol/L Chloride (96-108) mmol/L Carbon Dioxide (22-29) mmol/L Anion Gap (12-20) BUN (9-16) mg/dL Creatinine (0.5-1.4) mg/dL Estim Creat Clear Calc Estimated GFR Random Glucose (60-115) mg/dL Calcium (8.4-10.2) mg/dL Total Bilirubin (0.0-1.0) mg/dL AST (5-37) U/L ALT (0-40) U/L Alkaline Phosphatase (39-117) U/L Troponin I High Sens (<3.5-35.0) ng/L Total Protein (6.5-8.0) g/dL Albumin (3.5-5.0) g/dL Urine Opiates Screen (Not Detect) Urine Fentanyl Screen (Not Detect) Ur Barbiturates Screen (Not Detect) Ur Phencyclidine Scrn (Not Detect) Ur Amphetamines Screen (Not Detect) U Benzodiazepines Scrn (Not Detect) Urine Cocaine Screen (Not Detect) U Marijuana (THC) Screen (Not Detect) Ethyl Alcohol mg/dL COVID-19 (TUSHAR) Negative (Negative) COVID-19 Clin Com See Note Influenza Type A (DUSTIN) Negative (Negative) Influenza Type B (DUSTIN) Negative (Negative) Influenza A & B Note See Note 12/18/22 12/18/22 12/18/22 Range/Units 12:41 12:41 13:03 WBC (4.8-10.8) X10*3/uL RBC (4.60-5.80) X10*6/uL Hgb (14.0-18.0) g/dl Hct (42.0-52.0) % MCV (80.0-98.0) fL MCH (27.0-33.0) pg MCHC (31.0-36.0) g/dl RDW (11.0-16.0) % Plt Count (160-400) X10*3/uL MPV (9.4-12.4) fL Immature Gran % (Auto) (0.0-0.4) % Neut % (Auto) (45-73) % Lymph % (Auto) (20-40) % [place] % (Auto) (2-11) % Eos % (Auto) (0-4) % Baso % (Auto) (0-2) % Lymph # (Auto) (1.2-4.9) X10*3/uL [place] # (Auto) (0.1-1.2) X10*3/uL Eos # (Auto) (0.0-0.4) X10*3/uL Baso # (Auto) (0.0-0.2) X10*3/uL Abs Immat Gran (auto) (0.00-0.03) X10*3/uL Absolute Neuts (auto) (2.0-8.3) x10*3/uL Absolute Nucleated RBC (0.0-0.012) X10*3/uL Nucleated RBC % (auto) (0.0-0.2) /100WBC Sodium 140 (135-145) mmol/L Potassium 4.0 (3.3-5.1) mmol/L Chloride 102 (96-108) mmol/L Carbon Dioxide 26 (22-29) mmol/L Anion Gap 16 (12-20) BUN 10 (9-16) mg/dL Creatinine 0.85 (0.5-1.4) mg/dL Estim Creat Clear Calc 156.7 Estimated GFR > 60 Random Glucose 126 H (60-115) mg/dL Calcium 10.5 H (8.4-10.2) mg/dL Total Bilirubin 0.7 (0.0-1.0) mg/dL AST 48 H (5-37) U/L ALT 89 H (0-40) U/L Alkaline Phosphatase 84 (39-117) U/L Troponin I High Sens < 3.5 (<3.5-35.0) ng/L Total Protein 8.3 H (6.5-8.0) g/dL Albumin 5.2 H (3.5-5.0) g/dL Urine Opiates Screen Not Detected (Not Detect) Urine Fentanyl Screen Not Detected (Not Detect) Ur Barbiturates Screen Not Detected (Not Detect) Ur Phencyclidine Scrn Not Detected (Not Detect) Ur Amphetamines Screen Not Detected (Not Detect) U Benzodiazepines Scrn Not Detected (Not Detect) Urine Cocaine Screen Not Detected (Not Detect) U Marijuana (THC) Screen Not Detected (Not Detect) Ethyl Alcohol < 10 mg/dL COVID-19 (TUSHAR) (Negative) COVID-19 Clin Com Influenza Type A (DUSTIN) (Negative) Influenza Type B (DUSTIN) (Negative) Influenza A & B Note <Lakesha Cifuentes CNP - Last Filed: 12/18/22 12:09> Lab Results 12/18/22 12/18/22 12/18/22 Range/Units 12:41 12:41 12:41 WBC 9.1 (4.8-10.8) X10*3/uL RBC 5.98 H (4.60-5.80) X10*6/uL Hgb 17.5 (14.0-18.0) g/dl Hct 50.2 (42.0-52.0) % MCV 83.9 (80.0-98.0) fL MCH 29.3 (27.0-33.0) pg MCHC 34.9 (31.0-36.0) g/dl RDW 11.9 (11.0-16.0) % Plt Count 348 (160-400) X10*3/uL MPV 10.8 (9.4-12.4) fL Immature Gran % (Auto) 0.4 (0.0-0.4) % Neut % (Auto) 63.1 (45-73) % Lymph % (Auto) 29.4 (20-40) % [place] % (Auto) 5.2 (2-11) % Eos % (Auto) 1.3 (0-4) % Baso % (Auto) 0.6 (0-2) % Lymph # (Auto) 2.7 (1.2-4.9) X10*3/uL [place] # (Auto) 0.5 (0.1-1.2) X10*3/uL Eos # (Auto) 0.1 (0.0-0.4) X10*3/uL Baso # (Auto) 0.1 (0.0-0.2) X10*3/uL Abs Immat Gran (auto) 0.04 H (0.00-0.03) X10*3/uL Absolute Neuts (auto) 5.7 (2.0-8.3) x10*3/uL Absolute Nucleated RBC 0.000 (0.0-0.012) X10*3/uL Nucleated RBC % (auto) 0.0 (0.0-0.2) /100WBC Sodium (135-145) mmol/L Potassium (3.3-5.1) mmol/L Chloride (96-108) mmol/L Carbon Dioxide (22-29) mmol/L Anion Gap (12-20) BUN (9-16) mg/dL Creatinine (0.5-1.4) mg/dL Estim Creat Clear Calc Estimated GFR Random Glucose (60-115) mg/dL Calcium (8.4-10.2) mg/dL Total Bilirubin (0.0-1.0) mg/dL AST (5-37) U/L ALT (0-40) U/L Alkaline Phosphatase (39-117) U/L Troponin I High Sens (<3.5-35.0) ng/L Total Protein (6.5-8.0) g/dL Albumin (3.5-5.0) g/dL Urine Opiates Screen (Not Detect) Urine Fentanyl Screen (Not Detect) Ur Barbiturates Screen (Not Detect) Ur Phencyclidine Scrn (Not Detect) Ur Amphetamines Screen (Not Detect) U Benzodiazepines Scrn (Not Detect) Urine Cocaine Screen (Not Detect) U Marijuana (THC) Screen (Not Detect) Ethyl Alcohol mg/dL COVID-19 (TUSHAR) Negative (Negative) COVID-19 Clin Com See Note Influenza Type A (DUSTIN) Negative (Negative) Influenza Type B (DUSTIN) Negative (Negative) Influenza A & B Note See Note 12/18/22 12/18/22 12/18/22 Range/Units 12:41 12:41 13:03 WBC (4.8-10.8) X10*3/uL RBC (4.60-5.80) X10*6/uL Hgb (14.0-18.0) g/dl Hct (42.0-52.0) % MCV (80.0-98.0) fL MCH (27.0-33.0) pg MCHC (31.0-36.0) g/dl RDW (11.0-16.0) % Plt Count (160-400) X10*3/uL MPV (9.4-12.4) fL Immature Gran % (Auto) (0.0-0.4) % Neut % (Auto) (45-73) % Lymph % (Auto) (20-40) % [place] % (Auto) (2-11) % Eos % (Auto) (0-4) % Baso % (Auto) (0-2) % Lymph # (Auto) (1.2-4.9) X10*3/uL [place] # (Auto) (0.1-1.2) X10*3/uL Eos # (Auto) (0.0-0.4) X10*3/uL Baso # (Auto) (0.0-0.2) X10*3/uL Abs Immat Gran (auto) (0.00-0.03) X10*3/uL Absolute Neuts (auto) (2.0-8.3) x10*3/uL Absolute Nucleated RBC (0.0-0.012) X10*3/uL Nucleated RBC % (auto) (0.0-0.2) /100WBC Sodium 140 (135-145) mmol/L Potassium 4.0 (3.3-5.1) mmol/L Chloride 102 (96-108) mmol/L Carbon Dioxide 26 (22-29) mmol/L Anion Gap 16 (12-20) BUN 10 (9-16) mg/dL Creatinine 0.85 (0.5-1.4) mg/dL Estim Creat Clear Calc 156.7 Estimated GFR > 60 Random Glucose 126 H (60-115) mg/dL Calcium 10.5 H (8.4-10.2) mg/dL Total Bilirubin 0.7 (0.0-1.0) mg/dL AST 48 H (5-37) U/L ALT 89 H (0-40) U/L Alkaline Phosphatase 84 (39-117) U/L Troponin I High Sens < 3.5 (<3.5-35.0) ng/L Total Protein 8.3 H (6.5-8.0) g/dL Albumin 5.2 H (3.5-5.0) g/dL Urine Opiates Screen Not Detected (Not Detect) Urine Fentanyl Screen Not Detected (Not Detect) Ur Barbiturates Screen Not Detected (Not Detect) Ur Phencyclidine Scrn Not Detected (Not Detect) Ur Amphetamines Screen Not Detected (Not Detect) U Benzodiazepines Scrn Not Detected (Not Detect) Urine Cocaine Screen Not Detected (Not Detect) U Marijuana (THC) Screen Not Detected (Not Detect) Ethyl Alcohol < 10 mg/dL COVID-19 (TUSHAR) (Negative) COVID-19 Clin Com Influenza Type A (DUSTIN) (Negative) Influenza Type B (DUSTIN) (Negative) Influenza A & B Note <MAYO Hollins - Last Filed: 12/18/22 15:53> Critical Care Time Critical Care Time Critical Care Time: No <MAYO Hollins - Last Filed: 12/18/22 15:53> Discharge Plan Discharge Clinical Impression: Paranoid schizophrenia, Vomiting <Lakesha Cifuentes CNP - Last Filed: 12/18/22 12:09> Patient Disposition: Still a Patient <Lakesha Cifuentes CNP - Last Filed: 12/18/22 12:09> Prescriptions: No Action benztropine 0.5 mg tablet 0.5 mg PO BEDTIME clozapine 100 mg tablet 350 mg PO BEDTIME albuterol sulfate 90 mcg/actuation HFA aerosol inhaler 2 puff INHALATION Q4-6H PRN (Reason: Wheezing) <Lakesha Cifuentes CNP - Last Filed: 12/18/22 12:09>
[2022-12-18 12:01] VITALS: BP 122/76; PULSE 124; RESP 18; TEMP 36.6; O2SAT 95; BMI 38.0
--- NOTE | 2022-12-18 12:06 | ECG_ITS ---
Test Reason : tachy Blood Pressure : / mmHG Vent. Rate : 123 BPM Atrial Rate : 123 BPM P-R Int : 156 ms QRS Dur : 084 ms QT Int : 322 ms P-R-T Axes : 046 084 045 degrees QTc Int : 460 ms Sinus tachycardia Otherwise normal ECG No previous ECGs available Referred By: Lakesha Cifuentes Electronically Signed By:Fernandez Jackson
[2022-12-18 12:46] LABS: MANUAL DIFF FLAG NO
[2022-12-18 12:50] LABS: Basophils Absolute Auto 0.1 X10*3/uL (0.0-0.2); Basophils Percent Auto 0.6 % (0-2); Eosinophils Absolute Auto 0.1 X10*3/uL (0.0-0.4); Eosinophils Percent Auto 1.3 % (0-4); Hematocrit 50.2 % (42.0-52.0); Hemoglobin 17.5 g/dl (14.0-18.0); Imm Gran Abs Auto 0.04 X10*3/uL (0.00-0.03); Imm Gran Pct Auto 0.4 % (0.0-0.4); Lymphocytes Absolute Auto 2.7 X10*3/uL (1.2-4.9); Lymphocytes Percent Auto 29.4 % (20-40); Mean Corpuscular HGB Conc 34.9 g/dl (31.0-36.0); Mean Corpuscular Hemoglobin 29.3 pg (27.0-33.0); Mean Corpuscular Volume 83.9 fL (80.0-98.0); Mean Platelet Volume 10.8 fL (9.4-12.4); Monocytes Absolute Auto 0.5 X10*3/uL (0.1-1.2); Monocytes Percent Auto 5.2 % (2-11); Neutrophils Absolute Auto 5.7 x10*3/uL (2.0-8.3); Neutrophils Percent Auto 63.1 % (45-73); Platelet Count 348 X10*3/uL (160-400); Red Blood Count 5.98 X10*6/uL (4.60-5.80); Red Cell Distribution Width 11.9 % (11.0-16.0); White Blood Count 9.1 X10*3/uL (4.8-10.8)
[2022-12-18 13:01] VITALS: PULSE 124; RESP 18; O2SAT 96
[2022-12-18 13:07] LABS: COVID-19 Test Negative (Negative); IDNOW Serial# 16C4AD1C; IDNOW Serial# BCCEAD1C; Influenza A Negative (Negative); Influenza B2 Negative (Negative)
[2022-12-18 13:18] LABS: Alanine Aminotransferase 89 U/L (0-40); Albumin Level 5.2 g/dL (3.5-5.0); Alkaline Phosphatase 84 U/L (39-117); Anion Gap 16 (12-20); Aspartate Amino Transferase 48 U/L (5-37); Bilirubin Total 0.7 mg/dL (0.0-1.0); Blood Urea Nitrogen 10 mg/dL (9-16); Calcium 10.5 mg/dL (8.4-10.2); Carbon Dioxide 26 mmol/L (22-29); Chloride 102 mmol/L (96-108); Creatinine Clr Calc Pharmacy 156.7; Estimated Glomerular Filt Rate > 60; Ethanol < 10 mg/dL; Glucose Random 126 mg/dL (60-115); Sodium 140 mmol/L (135-145); Total Protein 8.3 g/dL (6.5-8.0); Troponin-I High Sensitivity < 3.5 ng/L (<3.5-35.0)
[2022-12-18 13:19] LABS: Amphetamine Screen Urine Not Detected (Not Detect); Barbiturates, Urine Not Detected (Not Detect); Benzodiazepines Screen Urine Not Detected (Not Detect); Cannabinoid Screen Urine Not Detected (Not Detect); Cocaine Screen Urine Not Detected (Not Detect); Fentanyl, urine Not Detected (Not Detect); Opiate Screen Urine Not Detected (Not Detect); Phencyclidine Screen Urine Not Detected (Not Detect)
--- NOTE | 2022-12-18 13:27 | PC.NURSE ---
Preliminary med rec completed.
--- NOTE | 2022-12-18 13:45 | PC.NURSE ---
Episode of vomiting after lunch. Pt reports feeling better, but is also c/o body aches. MLP notified.
[2022-12-18 14:00] VITALS: RESP 18
--- NOTE | 2022-12-18 14:03 | PC.NURSE ---
Per Alma PA: plan at this time for NPO diet w/ advancement to clear liquids.
--- NOTE | 2022-12-18 14:46 | PC.NURSE ---
Tolerated PO. Apple juice consumed. pt denies nausea
[2022-12-18] MEDS: cloZAPine 100 MG TABLET 350 MG PO (21:42)
[2022-12-18] MEDS: Benztropine Mesylate 0.5 MG TABLET PO (21:42)
--- NOTE | 2022-12-19 06:04 | PC.NURSE ---
Patient slept through the night, no distress observed/reported, behavior non concerning, medication compliant, patient was assessed by care team, disposition is [facility] follow up in the morning, VSS, will continue to monitor.
[2022-12-19 06:46] VITALS: BP 113/72; PULSE 96; RESP 17; TEMP 36.6; O2SAT 95
[2022-12-19 07:27] VITALS: RESP 18
== END 2022-12-19 12:56 | disposition home or self-care (01) ==
PROVIDERS: Nurse Practitioner Family; Emergency Provider Emergency Medicine
DX: F20.0 Paranoid schizophrenia (principal); R00.0 Tachycardia, unspecified; R11.10 Vomiting, unspecified; M79.10 Myalgia, unspecified site; R51.9 Headache, unspecified; Z20.822 Contact with and (suspected) exposure to COVID-19; Z20.828 Contact with and (suspected) exposure to other viral communicable diseases; Z79.899 Other long term (current) drug therapy
CPT/HCPCS: 25635; 36415; 71046; 80053; 80307; 82077; 84484; 85025; 87502; 87635; 93005; 99284; 99285

== ENCOUNTER 2023-01-03 13:01 | Outpatient (REF) | payer MEDICARE, SELFPAY ==
[2023-01-03 13:39] LABS: Neut%MD 62.7 %; WBCANC 9.6 X10*3/uL
== END 2023-01-03 13:02 | disposition home or self-care (01) ==
LOC: HO.LAB 13:01
PROVIDERS: Visit Provider Psychiatry & Neurology Psychiatry
DX: Z79.899 Other long term (current) drug therapy (principal)
CPT/HCPCS: 36415; 85048

== ENCOUNTER 2023-01-18 10:55 | Outpatient (REF) | payer MEDICARE, SELFPAY ==
[2023-01-18 11:54] LABS: Neut%MD 53.3 %; Neutrophils Absolute Auto 4.5 x10*3/uL (2.0-8.3); WBCANC 8.4 X10*3/uL
[2023-01-23 07:14] LABS: Clozapine (Clozaril) 790 mcg/L; Norclozapine 396 mcg/L (25-400)
== END 2023-01-18 10:56 | disposition home or self-care (01) ==
LOC: HO.LABR 10:55
PROVIDERS: Visit Provider Psychiatry & Neurology Psychiatry
DX: Z79.899 Other long term (current) drug therapy (principal)
CPT/HCPCS: 36415; 80159; 85048

== ENCOUNTER 2023-02-13 14:05 | Outpatient (REF) | payer MEDICARE, SELFPAY ==
[2023-02-13 14:27] LABS: Neut%MD 51.6 %; Neutrophils Absolute Auto 5.1 x10*3/uL (2.0-8.3); WBCANC 9.9 X10*3/uL
== END 2023-02-13 14:06 | disposition home or self-care (01) ==
LOC: HO.LABR 14:05
PROVIDERS: Visit Provider Psychiatry & Neurology Psychiatry
DX: Z79.899 Other long term (current) drug therapy (principal)
CPT/HCPCS: 36415; 85048

== ENCOUNTER 2023-03-01 14:04 | Outpatient (REF) | payer MEDICARE, SELFPAY ==
[2023-03-01 15:12] LABS: Neut%MD 47.9 %; Neutrophils Absolute Auto 4.7 x10*3/uL (2.0-8.3); WBCANC 9.8 X10*3/uL
== END 2023-03-01 14:05 | disposition home or self-care (01) ==
LOC: HO.LABR 14:04
PROVIDERS: Visit Provider Clinical Nurse Specialist Psychiatric/Mental Health, Adult
DX: Z79.899 Other long term (current) drug therapy (principal)
CPT/HCPCS: 36415; 85048

== ENCOUNTER 2023-03-15 15:07 | Outpatient (REF) | payer MEDICARE, SELFPAY ==
[2023-03-15 15:49] LABS: Neut%MD 49.9 %; Neutrophils Absolute Auto 4.3 x10*3/uL (2.0-8.3); WBCANC 8.6 X10*3/uL
== END 2023-03-15 15:08 | disposition home or self-care (01) ==
LOC: HO.LABR 15:07
PROVIDERS: Visit Provider Psychiatry & Neurology Psychiatry
DX: Z79.899 Other long term (current) drug therapy (principal)
CPT/HCPCS: 36415; 85048

== ENCOUNTER 2023-04-04 14:45 | Outpatient (REF) | payer MEDICARE, SELFPAY | END 2023-04-04 14:46 | disposition home or self-care (01) | LOC: HO.LABR 14:45 | PROVIDERS: Visit Provider Psychiatry & Neurology Psychiatry | DX: Z79.899 Other long term (current) drug therapy (principal) | CPT/HCPCS: 36415 ==

== ENCOUNTER 2023-04-07 13:19 | Emergency (ER) | payer MEDICARE, SELFPAY ==
[2023-04-07 13:48] VITALS: BP 128/81; PULSE 113; RESP 18; TEMP 37; O2SAT 97; BMI 30.9
--- NOTE | 2023-04-07 13:52 | ED.GENADULT ---
HPI - General Adult General Chief complaint: Psychiatric Symptoms Stated complaint: SOB/Depressed Time Seen by Provider: 04/07/23 14:41 Source: patient and RN notes reviewed Mode of arrival: ambulatory Limitations: no limitations History of Present Illness HPI narrative: This is a 27-year-old male, with a past medical history of schizophrenia, presenting to the emergency department as he is feeling depressed. He reports that while he was eating lunch today and he suddenly felt very depressed. He reports that there is no one who he can talk to and does not feel well supported at home. He denies any SI or HI. He does admit to hearing auditory hallucinations which have been threatening him and telling him to hurt himself. He reports that he drinks alcohol socially, denies any marijuana or illicit drug use. He otherwise feels well. He reports at times he feels short of breath however does not feel short of breath at this time, reports that this is typical of his asthma which she does not have an albuterol inhaler for. No other complaints or concerns this time MD complaint: Depression Onset (ago): hour(s) Treatments prior to arrival: none Related Data Home Medications Medication Instructions Recorded Confirmed benztropine 0.5 mg tablet 1 tab PO DAILY 07/28/22 04/07/23 clozapine 100 mg tablet 350 mg PO DAILY 07/28/22 04/07/23 Allergies Allergy/AdvReac Type Severity Reaction Status Date / Time No Known Allergies Allergy Verified 04/07/23 13:48 [No Known Allergies*] Review of Systems Review of Systems: Constitutional: No Weight loss, No Fever, No Chills, No Night Sweats, No Fatigue, No Malaise ENT/Mouth: No Hearing loss, No Ear Pain, No Nasal Congestion, No Sinus Pain, No Hoarseness, No sore throat, No Rhinorrhea, No Swallowing Difficulty Eyes: No Eye Pain, No Swelling, No Redness, No Foreign Body, No Discharge, No Vision Changes Cardiovascular: No Chest Pain, No SOB, No Dyspnea on Exertion, No Orthopnea, No Edema, No Palpitations Respiratory: No Cough, No Sputum, No Wheezing, No Smoke Exposure, No Dyspnea Gastrointestinal: No Nausea, No Vomiting, No Diarrhea, No Constipation, No Abdominal pain, No Hematochezia, No Melena Genitourinary: No irregular bleeding, No Dysuria, No Urinary Frequency, No Hematuria, No Urinary Incontinence/retention, No Urgency, No Flank Pain, No Urinary Flow Changes, No Hesitancy Musculoskeletal: No joint pain, No Myalgias, No Joint Swelling Skin: No Skin Lesions, No rash Neuro: No Weakness, No Numbness, No Paresthesias, No Loss of Consciousness, No Dizziness, No Headache Psych: No Anxiety/Panic, + Depression, +AH, No SI/HI/VH, No Social Issues, Heme/Lymph: No Bruising, No Bleeding,No Lymphadenopathy Endocrine: No Polyuria, No Polydipsia, No Temperature Intolerance Yes all other systems are reviewed and are negative Constitutional: Constitutional: Reports as per [facility] Past Medical History Medical History Schizophrenia, paranoid, chronic with acute exacerbation Social History Social History (System 12/27/22 @ 13:10 by Preeti Silvestre) Household Members: None Household Members Other:: 0 Housing: Apartment Do you presently have visiting nurse or other home services: No Unable to assess alcohol history related to: Refusing to respond Alcohol intake: unknown Patient Tobacco Use Status: Current everyday Tobacco user Tobacco use type: Cigarette Smoked in Last 30 Days: Yes e-Cigarette/Vaping Use: Former Use Second Hand Smoke Exposure: No Substance Use Type: Marijuana Advance Directives: No Advance Directives Information Provided: No Guardian: No service: No Sexual orientation: Did not discuss Physical Exam ED Vital Signs: Vital Signs - 24 hr 04/07/23 16:53 04/07/23 20:21 04/08/23 06:23 Temperature 97.8 F 97.6 F Pulse Rate 105 H 97 83 Respiratory Rate 16 20 16 Blood Pressure 121/98 H 113/78 113/78 Pulse Oximetry 97 97 96 Oxygen Delivery Method Room Air Room Air Room Air BMI result Body Mass Index 30.9 Const General: cooperative, comfortable and no acute distress Orientation/consciousness: patient oriented x3 Limitations: no limitations HENMT Head: Yes normal to inspection, Yes normocephalic and Yes atraumatic Ears: hearing grossly normal bilaterally General nose exam: Normal external nose present Face and sinus: Yes normal facial exam Mouth: Normal oral and palatal mucosa present, oropharynx normal and moist mucous membranes Throat: Yes posterior oropharynx normal Eyes General: appearance normal, both eyes and all related structures Eyelids: Yes eyelids normal Conjunctivae: conjunctivae normal Sclerae: sclerae normal Pupils: Equal, round and reactive pupils present EOM: EOMs intact bilaterally Neck Neck: Yes normal visual inspection, Yes full ROM and Yes no lymphadenopathy Lymphatic: no lymphadenopathy noted Chest Chest palpation & inspection: normal inspection of the chest Resp Effort & Inspection: normal respiratory effort and able to speak in complete sentences Auscultation: clear to auscultation bilaterally, no crackles, no rales, no rhonchi and no wheezes Cardio Rate: regular rate Rhythm: regular rhythm Heart sounds: S1 normal heart sound present and S2 normal heart sound present GI Inspection: Yes normal to inspection Skin General skin exam: no rashes or lesions noted Trauma: no lacerations or abrasions Wounds: no wounds Neuro General: patient oriented x3 and moves all extremities Cranial nerves: Yes Equal, round and reactive pupils present Extrem General: Yes normal to inspection Right upper extremity: normal to inspection Left upper extremity: normal to inspection Right lower extremity: normal to inspection Left lower extremity: normal to inspection Psych Appearance: grossly normal Speech and movement: Clear speech present Affect: Labile affect present and Anxious affect present Attitude: cooperative Thought process: Perseverating thought process present Thought content: Hallucination(s) present Insight: Limited insight present (Psych) Judgement: Limited judgement present (Psych) Course Course Course Narrative: RME: 27 yold male preesnts to the ED for depression and having panic attack in at [employer] restaurant. patient states having no friends. patient is not suicidal or homicidal. Reevaluation(s) Reevaluation #1: CBC returns without any abnormalities, care team consult place, chemistry, alcohol level and U tox still pending. Given sign-out to Zheng Wan PA-C. Time: 16:39 Reevaluation #2: Patient moved to psych pod. Psych consult will be performed tomorrow. Time: 18:24 Reevaluation #3: Patient's evaluation is complete. He has been evaluated by [facility] care team. Patient appears pose no threat to self or others at this time. He is agreeable discharge. He has outpatient follow-up already arranged with his current providers. Time: 13:02 Medications Administered Discontinued Medications Generic Name Dose Route Start Last Admin Trade Name Freq PRN Reason Stop Dose Admin Benztropine Mesylate 0.5 mg 04/08/23 12:15 04/08/23 12:41 Benztropine Mesylate 0.5 Mg Tablet PO 0.5 mg DAILY JOE Administration Clozapine 50 mg 04/08/23 12:15 04/08/23 12:41 Clozapine 25 Mg Tablet PO 50 mg DAILY JOE Administration Clozapine 300 mg 04/08/23 12:28 04/08/23 12:41 Clozapine 100 Mg Tablet PO 300 mg DAILY JOE Administration Medical Decision Making Medical Decision Making [facility] Narrative: 27-year-old male, with a past medical history of schizophrenia, presenting to the emergency department with a complaint of depression. He reports that he has no physical complaints. On examination, patient with labile affect, reporting no suicidal ideations, endorses auditory hallucinations. He is requesting to go back into the psych pod and would like to be admitted to the hospital due to worsening depression. Vital signs stable. Plan: Labs, UA, drug screening Differential Diagnosis Differential Diagnoses: The differential diagnosis associated with the presentation includes Depression, anxiety, suicidal ideation, polysubstance abuse Admission/Observation Consideration of admission/observation: Escalation of care including admission/observation considered Lab Data [facility] Lab Attestation statement: I reviewed the patient's lab results. 04/07/23 16:06 04/07/23 16:06 Labs: Lab Results 04/07/23 04/07/23 04/07/23 Range/Units 16:06 16:06 16:55 WBC 9.4 (4.8-10.8) X10*3/uL RBC 5.69 (4.60-5.80) X10*6/uL Hgb 16.7 (14.0-18.0) g/dl Hct 47.7 (42.0-52.0) % MCV 83.8 (80.0-98.0) fL MCH 29.3 (27.0-33.0) pg MCHC 35.0 (31.0-36.0) g/dl RDW 11.9 (11.0-16.0) % Plt Count 315 (160-400) X10*3/uL MPV 10.7 (9.4-12.4) fL Immature Gran % (Auto) 0.3 (0.0-0.4) % Neut % (Auto) 58.2 (45-73) % Lymph % (Auto) 33.7 (20-40) % [place] % (Auto) 5.6 (2-11) % Eos % (Auto) 1.9 (0-4) % Baso % (Auto) 0.3 (0-2) % Lymph # (Auto) 3.2 (1.2-4.9) X10*3/uL [place] # (Auto) 0.5 (0.1-1.2) X10*3/uL Eos # (Auto) 0.2 (0.0-0.4) X10*3/uL Baso # (Auto) 0.0 (0.0-0.2) X10*3/uL Abs Immat Gran (auto) 0.03 (0.00-0.03) X10*3/uL Absolute Neuts (auto) 5.5 (2.0-8.3) x10*3/uL Absolute Nucleated RBC 0.000 (0.0-0.012) X10*3/uL Nucleated RBC % (auto) 0.0 (0.0-0.2) /100WBC Sodium 143 (135-145) mmol/L Potassium 3.6 (3.3-5.1) mmol/L Chloride 104 (96-108) mmol/L Carbon Dioxide 30 H (22-29) mmol/L Anion Gap 13 (12-20) BUN 10 (9-16) mg/dL Creatinine 0.88 (0.5-1.4) mg/dL Estim Creat Clear Calc 140.8 Estimated GFR > 60 Random Glucose 102 (60-115) mg/dL Calcium 9.8 D (8.4-10.2) mg/dL Urine Color Yellow Urine Appearance Clear Urine pH 6.0 (5.0-9.0) Ur Specific [place] 1.025 (1.005-1.025) Urine Protein Trace (Neg-Trace) mg/dL Urine Glucose (UA) Negative (Negative) mg/dL Urine Ketones Trace (Negative) mg/dL Urine Blood Negative (Negative) Urine Nitrite Negative (Negative) Ur Leukocyte Esterase Small (1+) H (Negative) Urine RBC 0-2 (0-2) /HPF Urine WBC 0-5 (0-5) /HPF Ur Squamous Epith Cells 0-2 (0-2) /HPF Urine Bacteria None Seen (None Seen) Hyaline Casts 0-2 (0-2) /LPF Urine Opiates Screen (Not Detect) Urine Fentanyl Screen (Not Detect) Ur Barbiturates Screen (Not Detect) Ur Phencyclidine Scrn (Not Detect) Ur Amphetamines Screen (Not Detect) U Benzodiazepines Scrn (Not Detect) Urine Cocaine Screen (Not Detect) U Marijuana (THC) Screen (Not Detect) Ethyl Alcohol < 10 mg/dL 04/07/23 Range/Units 16:55 WBC (4.8-10.8) X10*3/uL RBC (4.60-5.80) X10*6/uL Hgb (14.0-18.0) g/dl Hct (42.0-52.0) % MCV (80.0-98.0) fL MCH (27.0-33.0) pg MCHC (31.0-36.0) g/dl RDW (11.0-16.0) % Plt Count (160-400) X10*3/uL MPV (9.4-12.4) fL Immature Gran % (Auto) (0.0-0.4) % Neut % (Auto) (45-73) % Lymph % (Auto) (20-40) % [place] % (Auto) (2-11) % Eos % (Auto) (0-4) % Baso % (Auto) (0-2) % Lymph # (Auto) (1.2-4.9) X10*3/uL [place] # (Auto) (0.1-1.2) X10*3/uL Eos # (Auto) (0.0-0.4) X10*3/uL Baso # (Auto) (0.0-0.2) X10*3/uL Abs Immat Gran (auto) (0.00-0.03) X10*3/uL Absolute Neuts (auto) (2.0-8.3) x10*3/uL Absolute Nucleated RBC (0.0-0.012) X10*3/uL Nucleated RBC % (auto) (0.0-0.2) /100WBC Sodium (135-145) mmol/L Potassium (3.3-5.1) mmol/L Chloride (96-108) mmol/L Carbon Dioxide (22-29) mmol/L Anion Gap (12-20) BUN (9-16) mg/dL Creatinine (0.5-1.4) mg/dL Estim Creat Clear Calc Estimated GFR Random Glucose (60-115) mg/dL Calcium (8.4-10.2) mg/dL Urine Color Urine Appearance Urine pH (5.0-9.0) Ur Specific [place] (1.005-1.025) Urine Protein (Neg-Trace) mg/dL Urine Glucose (UA) (Negative) mg/dL Urine Ketones (Negative) mg/dL Urine Blood (Negative) Urine Nitrite (Negative) Ur Leukocyte Esterase (Negative) Urine RBC (0-2) /HPF Urine WBC (0-5) /HPF Ur Squamous Epith Cells (0-2) /HPF Urine Bacteria (None Seen) Hyaline Casts (0-2) /LPF Urine Opiates Screen Not Detected (Not Detect) Urine Fentanyl Screen Not Detected (Not Detect) Ur Barbiturates Screen Not Detected (Not Detect) Ur Phencyclidine Scrn Not Detected (Not Detect) Ur Amphetamines Screen Not Detected (Not Detect) U Benzodiazepines Scrn Not Detected (Not Detect) Urine Cocaine Screen Not Detected (Not Detect) U Marijuana (THC) Screen Not Detected (Not Detect) Ethyl Alcohol mg/dL Radiology Impression Discussion of test interpretation with radiology: I have reviewed the radiologist's reading. External Record Review External record reviewed: Inpatient record, Office record, Outpatient record, Prior outpatient labs, Prior outpatient radiology, Primary care record and Outside ED record Discharge Plan Discharge Clinical Impression: Depression Patient Disposition: Home, Self-Care Instructions: Depression (DC) Prescriptions: No Action benztropine 0.5 mg tablet 1 tab PO DAILY clozapine 100 mg tablet 350 mg PO DAILY Rx Instructions: VERIFIED WITH [employer] OPERATOR - PT TOOK TODAY 08/13/22 Referrals: [facility] [Provider Group] Interventions: [place]-Suicide Risk Severity Scale Last Done: 04/08/23 10:00 ED Discharge Assessment Last Done: 04/08/23 13:14 Discharge Date/Time: 04/08/23 13:15
[2023-04-07 16:12] LABS: Basophils Percent Auto 0.3 % (0-2); Eosinophils Absolute Auto 0.2 X10*3/uL (0.0-0.4); Eosinophils Percent Auto 1.9 % (0-4); Hematocrit 47.7 % (42.0-52.0); Hemoglobin 16.7 g/dl (14.0-18.0); Imm Gran Abs Auto 0.03 X10*3/uL (0.00-0.03); Imm Gran Pct Auto 0.3 % (0.0-0.4); Lymphocytes Absolute Auto 3.2 X10*3/uL (1.2-4.9); Lymphocytes Percent Auto 33.7 % (20-40); MANUAL DIFF FLAG NO; Mean Corpuscular Hemoglobin 29.3 pg (27.0-33.0); Mean Corpuscular Volume 83.8 fL (80.0-98.0); Mean Platelet Volume 10.7 fL (9.4-12.4); Monocytes Absolute Auto 0.5 X10*3/uL (0.1-1.2); Monocytes Percent Auto 5.6 % (2-11); Neutrophils Absolute Auto 5.5 x10*3/uL (2.0-8.3); Neutrophils Percent Auto 58.2 % (45-73); Platelet Count 315 X10*3/uL (160-400); Red Blood Count 5.69 X10*6/uL (4.60-5.80); Red Cell Distribution Width 11.9 % (11.0-16.0); White Blood Count 9.4 X10*3/uL (4.8-10.8)
[2023-04-07 16:40] LABS: Anion Gap 13 (12-20); Blood Urea Nitrogen 10 mg/dL (9-16); Calcium 9.8 mg/dL (8.4-10.2); Carbon Dioxide 30 mmol/L (22-29); Chloride 104 mmol/L (96-108); Creatinine Clr Calc Pharmacy 140.8; Estimated Glomerular Filt Rate > 60; Ethanol < 10 mg/dL; Glucose Random 102 mg/dL (60-115); Potassium 3.6 mmol/L (3.3-5.1); Sodium 143 mmol/L (135-145)
[2023-04-07 16:53] VITALS: BP 121/98; PULSE 105; RESP 16; O2SAT 97
[2023-04-07 17:16] LABS: Appearance Urine Clear; Color Urine Yellow; Glucose Urine UA Negative (Negative); Leukocyte Esterase Urine Small (1+) (Negative); Nitrite Urine Negative (Negative); Specific Gravity - Urine 1.025 (1.005-1.025); UMIC TRIGGER UACC YES; Urine Blood Negative (Negative); Urine Ketones Trace mg/dL (Negative); Urine Protein Trace mg/dL (Neg-Trace)
[2023-04-07 17:19] LABS: Amphetamine Screen Urine Not Detected (Not Detect); Barbiturates, Urine Not Detected (Not Detect); Benzodiazepines Screen Urine Not Detected (Not Detect); Cannabinoid Screen Urine Not Detected (Not Detect); Cocaine Screen Urine Not Detected (Not Detect); Fentanyl, urine Not Detected (Not Detect); Opiate Screen Urine Not Detected (Not Detect); Phencyclidine Screen Urine Not Detected (Not Detect)
[2023-04-07 18:05] LABS: Bacteria Urine None Seen (None Seen); Hyaline Casts Urine 0-2 /LPF (0-2); RBC Urine 0-2 /HPF (0-2); Squamous Epithelial Cell Urine 0-2 /HPF (0-2); UACC Culture Trigger YES; WBC Urine 0-5 /HPF (0-5)
--- NOTE | 2023-04-07 18:06 | MHC.CARE ---
CARE team assessment complete. Plan is for psych consult and follow up tomorrow.
--- NOTE | 2023-04-07 19:16 | PC.NURSE ---
report received from ALEXANDER Daly pt wandering around pod, reports no pain, does report itchiness on both biceps. Pt offers no other complaints at this time
--- NOTE | 2023-04-07 19:59 | PC.NURSE ---
phone number to nurse to gives him medications in the morning , attempted to call with no answer, left message
[2023-04-07 20:21] VITALS: BP 113/78; PULSE 97; RESP 20; TEMP 36.6; O2SAT 97
--- NOTE | 2023-04-07 20:59 | PC.NURSE ---
pts home nurse called regarding home medications, meds verified
--- NOTE | 2023-04-08 03:26 | PC.NURSE ---
pt has been sleeping so far throughout night, no apparent distress, respirations even and unlabored continue plan of care for CARE team re-eval in am
[2023-04-08 06:23] VITALS: BP 113/78; PULSE 83; RESP 16; TEMP 36.4; O2SAT 96
--- NOTE | 2023-04-08 07:08 | PC.NURSE ---
patient appears to remain asleep at present respirations are even and unlabored patient appears in no distress
[2023-04-08] MEDS: cloZAPine 100 MG TABLET 300 MG PO (12:41)
[2023-04-08] MEDS: cloZAPine 25 MG TABLET 50 MG PO (12:41)
[2023-04-08] MEDS: Benztropine Mesylate 0.5 MG TABLET PO (12:41)
== END 2023-04-08 13:15 | disposition home or self-care (01) ==
PROVIDERS: Physician Assistant Medical; Emergency Provider Emergency Medicine
DX: F33.1 Major depressive disorder, recurrent, moderate (principal); F25.9 Schizoaffective disorder, unspecified; R06.02 Shortness of breath; Z79.899 Other long term (current) drug therapy
CPT/HCPCS: 36415; 80048; 80307; 81001; 85025; 87086; 99285; S9485

== ENCOUNTER 2023-04-22 09:47 | Outpatient (REF) | payer MEDICARE, SELFPAY ==
[2023-04-22 10:16] LABS: Neutrophils Absolute Auto 4.1 x10*3/uL (2.0-8.3); WBCANC 7.8 X10*3/uL
== END 2023-04-22 09:48 | disposition home or self-care (01) ==
LOC: HO.LAB 09:47
PROVIDERS: PCP Internal Medicine Geriatric Medicine; Visit Provider Psychiatry & Neurology Psychiatry
DX: Z79.899 Other long term (current) drug therapy (principal)
CPT/HCPCS: 36415; 85048

== ENCOUNTER 2023-05-17 11:00 | Outpatient (REF) | payer MEDICARE, SELFPAY ==
[2023-05-17 11:11] LABS: MANUAL DIFF FLAG NO
[2023-05-17 11:43] LABS: Basophils Absolute Auto 0.1 X10*3/uL (0.0-0.2); Basophils Percent Auto 0.6 % (0-2); Eosinophils Absolute Auto 0.2 X10*3/uL (0.0-0.4); Eosinophils Percent Auto 2.2 % (0-4); Hematocrit 49.2 % (42.0-52.0); Hemoglobin 16.7 g/dl (14.0-18.0); Imm Gran Abs Auto 0.03 X10*3/uL (0.00-0.03); Imm Gran Pct Auto 0.3 % (0.0-0.4); Lymphocytes Absolute Auto 2.9 X10*3/uL (1.2-4.9); Lymphocytes Percent Auto 31.9 % (20-40); Mean Corpuscular HGB Conc 33.9 g/dl (31.0-36.0); Mean Corpuscular Hemoglobin 28.5 pg (27.0-33.0); Mean Corpuscular Volume 84.1 fL (80.0-98.0); Mean Platelet Volume 11.1 fL (9.4-12.4); Monocytes Absolute Auto 0.4 X10*3/uL (0.1-1.2); Monocytes Percent Auto 4.5 % (2-11); Neut%MD 60.5 %; Neutrophils Absolute Auto 5.5 x10*3/uL (2.0-8.3); Neutrophils Percent Auto 60.5 % (45-73); Platelet Count 287 X10*3/uL (160-400); Red Blood Count 5.85 X10*6/uL (4.60-5.80); Red Cell Distribution Width 11.8 % (11.0-16.0); WBCANC 9.1 X10*3/uL; White Blood Count 9.1 X10*3/uL (4.8-10.8)
== END 2023-05-17 11:01 | disposition home or self-care (01) ==
LOC: HO.LABR 11:00
PROVIDERS: Visit Provider Psychiatry & Neurology Psychiatry
DX: Z79.899 Other long term (current) drug therapy (principal)
CPT/HCPCS: 36415; 85025

== ENCOUNTER 2023-06-03 10:01 | Outpatient (REF) | payer MEDICARE, SELFPAY ==
[2023-06-03 10:25] LABS: Neut%MD 50.9 %; Neutrophils Absolute Auto 4.4 x10*3/uL (2.0-8.3); WBCANC 8.6 X10*3/uL
== END 2023-06-03 10:02 | disposition home or self-care (01) ==
LOC: HO.LABR 10:01
PROVIDERS: Visit Provider Psychiatry & Neurology Psychiatry
DX: Z79.899 Other long term (current) drug therapy (principal)
CPT/HCPCS: 36415; 85048

== ENCOUNTER 2023-06-14 11:10 | Outpatient (REF) | payer MEDICARE, SELFPAY ==
[2023-06-14 12:12] LABS: Neut%MD 58.7 %; Neutrophils Absolute Auto 4.7 x10*3/uL (2.0-8.3)
== END 2023-06-14 11:11 | disposition home or self-care (01) ==
LOC: HO.LABR 11:10
PROVIDERS: Visit Provider Psychiatry & Neurology Psychiatry
DX: Z79.899 Other long term (current) drug therapy (principal)
CPT/HCPCS: 36415; 85048

== ENCOUNTER 2023-07-03 15:14 | Emergency (ER) | payer MEDICARE, SELFPAY ==
[2023-07-03 15:46] VITALS: BP 118/68; PULSE 115; RESP 18; TEMP 37.4; O2SAT 97; BMI 38.0
--- NOTE | 2023-07-03 16:38 | ED.EAR ---
HPI - Ear Problem General Chief complaint: Ear Problems Stated complaint: ear infection in both ears/ depressed? Time Seen by Provider: 07/03/23 15:46 Source: patient Mode of arrival: ambulatory Limitations: no limitations History of Present Illness HPI Narrative: 28yo male here with complaints of bilateral ear pain/pressure x 3 days. No URI symptoms. No hearing change. No drainage/itching of the ear Related Data Home Medications Medication Instructions Recorded Confirmed benztropine 0.5 mg tablet 1 tab PO DAILY 07/28/22 04/07/23 clozapine 100 mg tablet 350 mg PO DAILY 07/28/22 04/07/23 Previous Rx's Medication Instructions Recorded ofloxacin 0.3 % ear drops 10 drp otic (ears) DAILY 7 days #5 07/03/23 mL Allergies Allergy/AdvReac Type Severity Reaction Status Date / Time No Known Allergies Allergy Verified 04/07/23 13:48 [No Known Allergies*] Review of Systems Review of Systems: Yes all other systems are reviewed and are negative Constitutional: Constitutional: Reports no additional constitutional complaints, Denies body ache(s), Denies chills, Denies fever(s), Denies headache(s) and Denies weakness Eyes: Eyes: Reports no additional eye complaints and Denies change in vision ENT: Reports system reviewed and no additional complaints, except as documented, Denies dizziness, Reports otalgia, Denies headache(s), Denies nasal congestion, Denies nasal discharge and Denies neck pain Cardiovascular: Cardiovascular: Reports no additional cardiovascular complaints, Denies chest pain, Denies leg edema and Denies dyspnea Respiratory: Respiratory: Reports no additional respiratory complaints, Denies cough and Denies dyspnea Gastrointestinal: Gastrointestinal: Reports no additional gastrointestinal complaints, Denies abdominal pain, Denies diarrhea, Denies nausea and Denies vomiting Genitourinary: Genitourinary: Denies urinary incontinence Musculoskeletal: Musculoskeletal: Reports no additional musculoskeletal complaints, Denies back pain, Denies arthralgias, Denies joint swelling, Denies neck pain, Denies numbness and Denies tingling Integumentary/Breasts: Skin/Breast: Reports system reviewed and no additional complaints, except as docu and Denies rash Neurologic: Reports system reviewed and no additional complaints, except as documented, Denies Abnormal speech present, Denies dizziness, Denies headache(s), Denies numbness, Denies tingling and Denies weakness [facility] Past Medical History Attestation statement: The following information was validated with the patient. Source: old records reviewed and nursing notes reviewed Medical History Schizophrenia, paranoid, chronic with acute exacerbation Social History Social History Household Members: None Household Members Other:: 0 Housing: Apartment Do you presently have visiting nurse or other home services: No Unable to assess alcohol history related to: Refusing to respond Alcohol intake: unknown Patient Tobacco Use Status: Current everyday Tobacco user Tobacco use type: Cigarette e-Cigarette/Vaping Use: Former Use Second Hand Smoke Exposure: No Substance Use Type: Marijuana Advance Directives: No Advance Directives Information Provided: No service: No Sexual orientation: Did not discuss Physical Exam Vital Signs: Vital Signs: Last Vital Signs Temp 99.3 F 07/03/23 15:46 Pulse 115 H 07/03/23 15:46 Resp 18 07/03/23 15:46 BP 118/68 07/03/23 15:46 Pulse Ox 97 07/03/23 15:46 O2 Del Method Room Air 07/03/23 15:46 BMI result Body Mass Index 38.0 Const: General: cooperative, healthy appearing, comfortable and no acute distress Orientation/consciousness: patient oriented x3 Limitations: no limitations HEENT: Head: Yes normal to inspection Ears: hearing grossly normal bilaterally, TM's normal bilaterally, mastoids normal, no periauricular adenopathy and Abnormal EAC present (bilateral) erythema, edema, EAC tenderness and otic discharge General nose exam: Normal external nose present Face and sinus: Yes normal facial exam Mouth: Normal oral and palatal mucosa present Throat: Yes posterior oropharynx normal, Yes tonsils normal and Yes uvula midline Eyes: General: appearance normal, both eyes and all related structures Pupils: Equal, round and reactive pupils present Neck: Neck: Yes normal visual inspection, Yes full ROM, Yes no lymphadenopathy and Yes no meningeal signs Chest: Chest palpation & inspection: normal inspection of the chest Resp: Effort & Inspection: normal respiratory effort Auscultation: clear to auscultation bilaterally Cardio: Rate: regular rate Rhythm: regular rhythm Peripheral pulses: Peripheral pulses 2+ throughout GI: Inspection: Yes normal to inspection Palpation (GI): Soft to palpation and nontender Auscultation: normal bowel sounds Back/Spine/Pelvis: Thoracic/Lumbar Spine: thoracic and lumbar spine normal to inspection Skin: General skin exam: no rashes or lesions noted Neuro: General: patient oriented x3, no meningeal signs, no focal motor deficits and normal sensation to monofilament Cranial nerves: Yes Equal, round and reactive pupils present Cognition (Neuro): normal cognition Speech: No Abnormal speech present Gait exam (Neuro): Normal gait present Motor exam (neuro): 5/5 motor strength present throughout Extrem: General: Yes normal to inspection Medical Decision Making Medical Decision Making MDM Narrative: 28yo male here with complaints of bilateral ear pain/pressure x 3 days. No URI symptoms. No hearing change. No drainage/itching of the ear Exam c/w with otitis externa No evidence of AOM, mastoiditis, malignant otitis externa Will treat with ear gtt Of note, patient c/o depression to nurse. I asked the patient and he denies this. No SI/HI Differential Diagnosis Differential Diagnoses: The differential diagnosis associated with the presentation includes see discussion above Prescription Management I considered prescription management with: Antibiotic needs ear drop antibiotics, no need for oral Discharge Plan Discharge Clinical Impression: Otitis externa Patient Disposition: Home, Self-Care Instructions: Otitis Externa (ED), How to Use Ear Drops (ED) Prescriptions: New ofloxacin 0.3 % drops 10 drp otic (ears) DAILY 7 Days Qty: 5 0RF No Action benztropine 0.5 mg tablet 1 tab PO DAILY clozapine 100 mg tablet 350 mg PO DAILY Rx Instructions: VERIFIED WITH [employer] CONSULTANT - PT TOOK TODAY 08/13/22 Referrals: [facility] [Primary Care Provider] - 1 week Interventions: ED Discharge Assessment Last Done: 07/03/23 16:45 Discharge Date/Time: 07/03/23 16:45
[2023-07-03] MEDS: Acetaminophen 325 MG TABLET 975 MG PO (17:15)
== END 2023-07-03 16:45 | disposition home or self-care (01) ==
PROVIDERS: Emergency Provider Emergency Medicine Emergency Medical Services
DX: H60.93 Unspecified otitis externa, bilateral (principal); H92.03 Otalgia, bilateral; F17.210 Nicotine dependence, cigarettes, uncomplicated; F20.0 Paranoid schizophrenia; Z79.899 Other long term (current) drug therapy
CPT/HCPCS: 99283

== ENCOUNTER 2023-07-04 09:32 | Outpatient (REF) | payer MEDICARE, SELFPAY ==
[2023-07-04 10:08] LABS: Neut%MD 56.1 %; Neutrophils Absolute Auto 4.8 x10*3/uL (2.0-8.3); WBCANC 8.5 X10*3/uL
== END 2023-07-04 09:33 | disposition home or self-care (01) ==
LOC: HO.LABR 09:32
PROVIDERS: Visit Provider Psychiatry & Neurology Psychiatry
DX: Z79.899 Other long term (current) drug therapy (principal)
CPT/HCPCS: 36415; 85048

== ENCOUNTER 2023-07-30 11:44 | Outpatient (REF) | payer MEDICARE, SELFPAY ==
[2023-07-30 13:08] LABS: Basophils Percent Auto 0.4 % (0-2); Eosinophils Absolute Auto 0.1 X10*3/uL (0.0-0.4); Eosinophils Percent Auto 1.6 % (0-4); Imm Gran Abs Auto 0.04 X10*3/uL (0.00-0.03); Imm Gran Pct Auto 0.4 % (0.0-0.4); Lymphocytes Absolute Auto 2.4 X10*3/uL (1.2-4.9); Lymphocytes Percent Auto 26.9 % (20-40); MANUAL DIFF FLAG SCAN; Mean Corpuscular HGB Conc 35.1 g/dl (31.0-36.0); Mean Corpuscular Hemoglobin 29.4 pg (27.0-33.0); Mean Corpuscular Volume 83.8 fL (80.0-98.0); Monocytes Absolute Auto 0.4 X10*3/uL (0.1-1.2); Monocytes Percent Auto 4.6 % (2-11); Neutrophils Absolute Auto 5.9 x10*3/uL (2.0-8.3); Neutrophils Percent Auto 66.1 % (45-73); PLT CLUMP 1; Red Blood Count 6.84 X10*6/uL (4.60-5.80); Red Cell Distribution Width 13.2 % (11.0-16.0); SCAN SMEAR FLAG 1
[2023-07-30 13:09] LABS: Hematocrit 57.3 % (42.0-52.0); Hemoglobin 20.1 g/dl (14.0-18.0)
[2023-07-30 14:20] LABS: Platelet Count 159 X10*3/uL (160-400)
[2023-07-30 14:21] LABS: SLIDE REVIEW VERIFIED
== END 2023-07-30 11:45 | disposition home or self-care (01) ==
LOC: HO.LABR 11:44
PROVIDERS: Psychiatry & Neurology Psychiatry; Visit Provider Clinical Nurse Specialist Psychiatric/Mental Health, Adult
DX: Z79.899 Other long term (current) drug therapy (principal)
CPT/HCPCS: 36415; 85025

== ENCOUNTER 2023-08-22 10:46 | Outpatient (REF) | payer MEDICARE, SELFPAY ==
[2023-08-22 11:11] LABS: Neut%MD 57.2 %; Neutrophils Absolute Auto 4.7 x10*3/uL (2.0-8.3); WBCANC 8.3 X10*3/uL
== END 2023-08-22 10:47 | disposition home or self-care (01) ==
LOC: HO.LABR 10:46
PROVIDERS: PCP Internal Medicine; Visit Provider Psychiatry & Neurology Psychiatry
DX: Z79.899 Other long term (current) drug therapy (principal)
CPT/HCPCS: 36415; 85048

== ENCOUNTER 2023-09-17 12:35 | Outpatient (REF) | payer MEDICARE, SELFPAY ==
[2023-09-17 12:51] LABS: MANUAL DIFF FLAG NO
[2023-09-17 12:55] LABS: Basophils Absolute Auto 0.1 X10*3/uL (0.0-0.2); Basophils Percent Auto 0.8 % (0-2); Eosinophils Absolute Auto 0.2 X10*3/uL (0.0-0.4); Eosinophils Percent Auto 1.5 % (0-4); Hematocrit 48.1 % (42.0-52.0); Hemoglobin 16.8 g/dl (14.0-18.0); Imm Gran Abs Auto 0.06 X10*3/uL (0.00-0.03); Imm Gran Pct Auto 0.6 % (0.0-0.4); Lymphocytes Absolute Auto 2.6 X10*3/uL (1.2-4.9); Lymphocytes Percent Auto 26.1 % (20-40); Mean Corpuscular HGB Conc 34.9 g/dl (31.0-36.0); Mean Corpuscular Hemoglobin 29.1 pg (27.0-33.0); Mean Corpuscular Volume 83.4 fL (80.0-98.0); Mean Platelet Volume 10.5 fL (9.4-12.4); Monocytes Absolute Auto 0.6 X10*3/uL (0.1-1.2); Monocytes Percent Auto 5.9 % (2-11); Neutrophils Absolute Auto 6.4 x10*3/uL (2.0-8.3); Neutrophils Percent Auto 65.1 % (45-73); Platelet Count 286 X10*3/uL (160-400); Red Blood Count 5.77 X10*6/uL (4.60-5.80); Red Cell Distribution Width 12.6 % (11.0-16.0); White Blood Count 9.9 X10*3/uL (4.8-10.8)
[2023-09-17 16:04] LABS: Amphetamine Screen Urine Not Detected (Not Detect); Barbiturates, Urine Not Detected (Not Detect); Benzodiazepines Screen Urine Not Detected (Not Detect); Cannabinoid Screen Urine Not Detected (Not Detect); Cocaine Screen Urine Not Detected (Not Detect); Fentanyl, urine Not Detected (Not Detect); Opiate Screen Urine Not Detected (Not Detect); Phencyclidine Screen Urine Not Detected (Not Detect)
[2023-09-17 16:24] LABS: Alanine Aminotransferase 81 U/L (0-40); Albumin Level 4.8 g/dL (3.5-5.0); Alkaline Phosphatase 60 U/L (39-117); Anion Gap 12 (12-20); Aspartate Amino Transferase 55 U/L (5-37); Bilirubin Direct 0.2 mg/dL (0.0-0.5); Bilirubin Total 0.5 mg/dL (0.0-1.0); Blood Urea Nitrogen 9 mg/dL (9-16); Calcium 10.7 mg/dL (8.4-10.2); Carbon Dioxide 28 mmol/L (22-29); Chloride 101 mmol/L (96-108); Estimated Glomerular Filt Rate > 60; Glucose Random 85 mg/dL (60-115); Potassium 3.8 mmol/L (3.3-5.1); Sodium 137 mmol/L (135-145); Total Protein 8.3 g/dL (6.5-8.0)
[2023-09-17 16:42] LABS: TSH reflex Free T4 1.44 uIU/mL (0.32-4.0)
== END 2023-09-17 12:36 | disposition home or self-care (01) ==
LOC: HO.LABR 12:35
PROVIDERS: Referring Provider Internal Medicine; Visit Provider Psychiatry & Neurology Psychiatry
DX: R00.0 Tachycardia, unspecified (principal); F25.9 Schizoaffective disorder, unspecified; Z79.899 Other long term (current) drug therapy
CPT/HCPCS: 36415; 80048; 80076; 80307; 84443; 85025

== ENCOUNTER 2023-10-04 10:41 | Outpatient (REF) | payer MEDICARE, SELFPAY ==
[2023-10-04 10:59] LABS: MANUAL DIFF FLAG NO
[2023-10-04 11:47] LABS: Basophils Absolute Auto 0.1 X10*3/uL (0.0-0.2); Basophils Percent Auto 0.9 % (0-2); Eosinophils Absolute Auto 0.2 X10*3/uL (0.0-0.4); Eosinophils Percent Auto 2.6 % (0-4); Hematocrit 46.7 % (42.0-52.0); Imm Gran Abs Auto 0.03 X10*3/uL (0.00-0.03); Imm Gran Pct Auto 0.5 % (0.0-0.4); Lymphocytes Absolute Auto 2.5 X10*3/uL (1.2-4.9); Lymphocytes Percent Auto 38.2 % (20-40); Mean Corpuscular HGB Conc 34.3 g/dl (31.0-36.0); Mean Corpuscular Hemoglobin 29.3 pg (27.0-33.0); Mean Corpuscular Volume 85.4 fL (80.0-98.0); Mean Platelet Volume 10.6 fL (9.4-12.4); Monocytes Absolute Auto 0.4 X10*3/uL (0.1-1.2); Monocytes Percent Auto 6.6 % (2-11); Neutrophils Absolute Auto 3.4 x10*3/uL (2.0-8.3); Neutrophils Percent Auto 51.2 % (45-73); Platelet Count 267 X10*3/uL (160-400); Red Blood Count 5.47 X10*6/uL (4.60-5.80); Red Cell Distribution Width 12.6 % (11.0-16.0); White Blood Count 6.6 X10*3/uL (4.8-10.8)
== END 2023-10-04 10:42 | disposition home or self-care (01) ==
LOC: HO.LABR 10:41
PROVIDERS: Visit Provider Clinical Nurse Specialist Psychiatric/Mental Health, Adult
DX: Z79.899 Other long term (current) drug therapy (principal)
CPT/HCPCS: 36415; 85025

== ENCOUNTER 2023-10-18 11:15 | Outpatient (REF) | payer MEDICARE, SELFPAY | END 2023-10-18 11:16 | disposition home or self-care (01) | LOC: HO.LABR 11:15 | PROVIDERS: Visit Provider Psychiatry & Neurology Psychiatry | DX: Z79.899 Other long term (current) drug therapy (principal) | CPT/HCPCS: 36415 ==

== ENCOUNTER 2023-11-20 14:09 | Outpatient (REF) | payer MEDICARE, SELFPAY ==
[2023-11-20 14:58] LABS: Neut%MD 52.2 %; Neutrophils Absolute Auto 4.4 x10*3/uL (2.0-8.3); WBCANC 8.5 X10*3/uL
== END 2023-11-20 14:10 | disposition home or self-care (01) ==
LOC: HO.LAB 14:09
PROVIDERS: PCP Internal Medicine; Visit Provider Psychiatry & Neurology Psychiatry
DX: Z79.899 Other long term (current) drug therapy (principal)
CPT/HCPCS: 36415; 85048

== ENCOUNTER 2023-12-03 16:46 | Outpatient (REF) | payer MEDICARE, SELFPAY ==
[2023-12-03 17:26] LABS: MANUAL DIFF FLAG NO
[2023-12-03 17:40] LABS: Basophils Absolute Auto 0.1 X10*3/uL (0.0-0.2); Basophils Percent Auto 0.6 % (0-2); Eosinophils Absolute Auto 0.2 X10*3/uL (0.0-0.4); Eosinophils Percent Auto 1.8 % (0-4); Hematocrit 46.4 % (42.0-52.0); Hemoglobin 16.5 g/dl (14.0-18.0); Imm Gran Abs Auto 0.04 X10*3/uL (0.00-0.03); Imm Gran Pct Auto 0.4 % (0.0-0.4); Lymphocytes Absolute Auto 3.1 X10*3/uL (1.2-4.9); Lymphocytes Percent Auto 27.7 % (20-40); Mean Corpuscular HGB Conc 35.6 g/dl (31.0-36.0); Mean Corpuscular Hemoglobin 29.5 pg (27.0-33.0); Mean Corpuscular Volume 82.9 fL (80.0-98.0); Monocytes Absolute Auto 0.8 X10*3/uL (0.1-1.2); Neutrophils Absolute Auto 7.1 x10*3/uL (2.0-8.3); Neutrophils Percent Auto 62.5 % (45-73); Platelet Count 294 X10*3/uL (160-400); Red Cell Distribution Width 12.5 % (11.0-16.0); White Blood Count 11.3 X10*3/uL (4.8-10.8)
[2023-12-03 18:12] LABS: Alanine Aminotransferase 90 U/L (0-40); Albumin Level 4.7 g/dL (3.5-5.0); Alkaline Phosphatase 59 U/L (39-117); Anion Gap 14 (12-20); Aspartate Amino Transferase 43 U/L (5-37); Bilirubin Direct 0.2 mg/dL (0.0-0.5); Bilirubin Total 0.6 mg/dL (0.0-1.0); Blood Urea Nitrogen 8 mg/dL (9-16); Calcium 10.8 mg/dL (8.4-10.2); Carbon Dioxide 24 mmol/L (22-29); Chloride 105 mmol/L (96-108); Estimated Glomerular Filt Rate > 60; Glucose Random 89 mg/dL (60-115); Potassium 3.6 mmol/L (3.3-5.1); Sodium 139 mmol/L (135-145); Total Protein 8.1 g/dL (6.5-8.0)
[2023-12-03 18:25] LABS: TSH reflex Free T4 1.55 uIU/mL (0.32-4.0)
[2023-12-04 06:09] LABS: HBS Num1 1.51 mIU/mL (0-7.99); HBc Num1 0.11 S/CO (0.00-0.79); HIV AB/AG Nonreactive (Nonreactive); HIV Num 1 0.05 S/CO (0.00-0.99); Hepatitis B Core Antibody Nonreactive (Nonreactive); ~HepC Num1 0.12 S/CO (0.00-0.79); ~Hepatitis B Surface Antibody NONREACTIVE (Nonreactive); ~Hepatitis C Antibody Nonreactive (Nonreactive)
[2023-12-04 06:10] LABS: Syphilis Screen Nonreactive (Nonreactive)
== END 2023-12-03 16:47 | disposition home or self-care (01) ==
LOC: HO.HHCL 16:46
PROVIDERS: Visit Provider Family Medicine
DX: D75.1 Secondary polycythemia (principal); R74.01 Elevation of levels of liver transaminase levels
CPT/HCPCS: 36415; 80048; 80076; 84443; 85025; 86704; 86706; 86780; 86803; 87389

== ENCOUNTER 2023-12-26 07:49 | Outpatient (REF) | payer MEDICARE, SELFPAY ==
[2023-12-26 09:35] LABS: Basophils Absolute Auto 0.1 X10*3/uL (0.0-0.2); Eosinophils Absolute Auto 0.2 X10*3/uL (0.0-0.4); Eosinophils Percent Auto 2.6 % (0-4); Hematocrit 45.2 % (42.0-52.0); Imm Gran Abs Auto 0.06 X10*3/uL (0.00-0.03); Imm Gran Pct Auto 0.9 % (0.0-0.4); Lymphocytes Absolute Auto 2.9 X10*3/uL (1.2-4.9); MANUAL DIFF FLAG SCAN; Mean Corpuscular HGB Conc 35.4 g/dl (31.0-36.0); Mean Corpuscular Hemoglobin 29.5 pg (27.0-33.0); Mean Corpuscular Volume 83.4 fL (80.0-98.0); Monocytes Absolute Auto 0.5 X10*3/uL (0.1-1.2); Monocytes Percent Auto 6.9 % (2-11); Neutrophils Absolute Auto 3.2 x10*3/uL (2.0-8.3); Neutrophils Percent Auto 46.6 % (45-73); PLT CLUMP 1; Red Blood Count 5.42 X10*6/uL (4.60-5.80); Red Cell Distribution Width 12.4 % (11.0-16.0); SCAN SMEAR FLAG 1
[2023-12-26 10:57] LABS: White Blood Count 6.8 X10*3/uL (4.8-10.8)
[2023-12-26 10:58] LABS: SLIDE REVIEW VERIFIED
== END 2023-12-26 07:50 | disposition home or self-care (01) ==
LOC: HO.LABR 07:49
PROVIDERS: Absent Provider Psychiatry & Neurology Psychiatry; PCP Internal Medicine; Visit Provider Physician Assistant
DX: R11.2 Nausea with vomiting, unspecified (principal); K21.9 Gastro-esophageal reflux disease without esophagitis; R74.8 Abnormal levels of other serum enzymes; R79.89 Other specified abnormal findings of blood chemistry; Z78.9 Other specified health status; Z79.899 Other long term (current) drug therapy
CPT/HCPCS: 36415; 85025; 99202

== ENCOUNTER 2023-12-26 07:49 | Outpatient (AMB) | payer MEDICARE, SELFPAY ==
--- NOTE | 2023-12-26 08:02 | A.OFFVIS_ITS ---
Intake Vital Signs 12/26/23 08:03 Height 5 ft 8 in Weight 220 lb BMI 33.4 Blood Pressure Location Lt brachial Position Sitting Intake Visit Reasons: Vomiting with nausea Intake Note: Patient new consult for N/V. Patient cc: diarrhea on and off. 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 Accompanied by: Other Relationship Allergies No Known Allergies [No Known Allergies*] Allergy (Verified 12/26/23 07:59) Medication List - Last Reconciled 12/26/23 by Minda Resendiz PA-C albuterol sulfate 90 mcg/actuation 1 inh inhalation QID benztropine 0.5 mg PO DAILY clozapine (Clozaril) 300 mg PO BID docusate sodium 100 mg PO BID HPI HPI Comments History of Present Illness Details A 28 y/o male- here with [facility]-he has hx of earaches- he has reflux- declines ppi- he will not mix pills - worsens when he eats too much- he will get diarrhea- coffee is a culprit Weight fluctuates- Sometimes drinks and smokes He does eat very fast, he is well admits to waking at night having snacks-some days will have diarrhea He does not follow any special diet-at times will vomit (describes water brash) He has not complained of abdominal pain nausea , fever or chills Anxious to leave the office-repeatedly reminds me that he does not like to take pills [facility] worker very supportive to the patient [facility] Medical History Schizophrenia, paranoid, chronic with acute exacerbation Social History Household Members: None Household Members Other:: 0 Housing: Apartment Do you presently have visiting nurse or other home services: No Unable to assess alcohol history related to: Refusing to respond Alcohol intake: unknown Comment: M3 Patient Tobacco Use Status: Current everyday Tobacco user Tobacco use type: Cigarette e-Cigarette/Vaping Use: Former Use Second Hand Smoke Exposure: No Substance Use Type: Marijuana service: No Sexual orientation: Did not discuss Review of Systems Card Denies chest pain and Denies dyspnea Resp Denies dyspnea GI Details: all sx-intermittent vague Denies abdominal pain, Reports heartburn, Reports loose stools, Reports nausea and Reports vomiting Physical Exam Vital Signs: BMI result Body Mass Index 33.4 Const General: healthy appearing, comfortable, alert, anxious and poor hygiene Nutritional Appearance: overweight Orientation/consciousness: patient oriented x3 Eyes Conjunctivae: conjunctival abnormal (Conjunctiva injected bilaterally no drainage) Resp Effort & Inspection: normal respiratory effort and able to speak in complete sentences Auscultation: clear to auscultation bilaterally and no wheezes Cardio Rate: regular rate Rhythm: regular rhythm Heart sounds: S1 normal heart sound present and S2 normal heart sound present GI Inspection: Yes obesity Palpation (GI): Soft to palpation and nontender Auscultation: normal bowel sounds Skin General skin exam: no rashes or lesions noted Neuro General: patient oriented x3 Extrem General: Yes full ROM Psych Speech and movement: Slowed speech present (Psych) Affect: Labile affect present and Indifferent affect present Thought process: Circumstantial thought process present Assessment & Plan Assessment & Plan (1) Acid reflux: Comment: describes acid reflux-declines ppi Code(s): K21.9 - Gastro-esophageal reflux disease without esophagitis Plan: encourage dietary modificaions (2) Poor historian: Comment: Difficult to assess- Code(s): Z78.9 - Other specified health status (3) Elevated liver enzymes: Comment: Elevated liver enzymes Code(s): R74.8 - Abnormal levels of other serum enzymes Plan: labs u/s Plan labs-assess elevated liver enzymes u/s-says gallbladder and liver reflux precautions- Dietary modifications Orders: Orders Comprehensive Met. Panel Today R74.8 - Abnormal levels of other serum enzymes Hepatitis A,B,C Profile Today R79.89 - Other specified abnormal findings of blood chemistry Lipid Panel Today R74.8 - Abnormal levels of other serum enzymes Mitochondrial Antibody Today R74.01 - Elevation of levels of liver transaminase levels US abdomen complete Today R74.8 - Abnormal levels of other serum enzymes Smooth Muscle Antibody Today R74.8 - Abnormal levels of other serum enzymes ISADORA Reflex Titer and Pattern Today R74.01 - Elevation of levels of liver transaminase levels Patient Instructions: labs u/s reflux precautions- Dietary modifications Coding Level of Care Code New Pt Level 4 (62102) Diagnoses Acid reflux K21.9 Poor historian Z78.9 Elevated liver enzymes R74.8 Time Spent (min) 30
[2023-12-26 08:03] VITALS: BMI 33.4
== END 2023-12-26 08:44 | disposition home or self-care (01) ==
PROVIDERS: PCP Internal Medicine; Visit Provider Physician Assistant
DX: K21.9 Gastro-esophageal reflux disease without esophagitis (principal); Z78.9 Other specified health status; R74.8 Abnormal levels of other serum enzymes
CPT/HCPCS: 99204

== ENCOUNTER 2024-01-31 10:29 | Outpatient (REF) | payer MEDICARE, SELFPAY ==
[2024-01-31 11:15] LABS: Neut%MD 46.9 %; Neutrophils Absolute Auto 3.9 x10*3/uL (2.0-8.3); WBCANC 8.2 X10*3/uL
== END 2024-01-31 10:30 | disposition home or self-care (01) ==
LOC: HO.LAB 10:29
PROVIDERS: Visit Provider Psychiatry & Neurology Psychiatry
DX: Z79.899 Other long term (current) drug therapy (principal)
CPT/HCPCS: 36415; 85048

== ENCOUNTER 2024-02-08 19:22 | Emergency (ER) | payer MEDICARE, MEDICAID, SELFPAY ==
--- NOTE | ~2024-02-08 | CT_ITS ---
EXAMINATION: CT ABDOMEN AND PELVIS WITHOUT CONTRAST CLINICAL INFORMATION: Left lower quadrant abdominal pain COMPARISON: None available. TECHNIQUE: Multidetector volumetric imaging was performed from the superior aspect of the liver through the pubic symphysis. Sagittal and coronal reformatted images were obtained on the technologist's workstation. This CT examination was performed using dose optimization techniques as appropriate, variously including the following: *Automated exposure control *Adjustment of mA and/or kV according to patient size (this includes techniques or standardized protocols for targeted exams where dose is matched to indication/reason for exam; i.e. extremities or head) *Use of iterative reconstruction technique DLP: 629 mGy-cm FINDINGS: LUNG BASES: The visualized lung bases are unremarkable. LIVER, GALLBLADDER, AND BILIARY TREE: Liver is decreased in density consistent with severe hepatic steatosis. The gallbladder is unremarkable with no evidence of radiopaque gallstones, gallbladder wall thickening, or obvious pericholecystic inflammatory changes. PANCREAS: Unremarkable. SPLEEN: Unremarkable. ADRENAL GLANDS: Unremarkable. KIDNEYS AND URETERS: The kidneys are normal in size, shape, and attenuation. No hydronephrosis, hydroureter, or calculi seen. No perinephric stranding. BLADDER: Decompressed GASTROINTESTINAL TRACT: The small and large bowel are unremarkable. The appendix is unremarkable. ABDOMINAL WALL: No significant hernia is appreciated. LYMPH NODES: Normal. VASCULAR: Unremarkable. PELVIC VISCERA: Unremarkable. OSSEOUS STRUCTURES: Unremarkable. CT/CT abdomen pelvis wo IV con IMPRESSION: No acute process. Severe hepatic steatosis
[2024-02-08 20:18] VITALS: BP 116/81; PULSE 125; RESP 18; TEMP 37; O2SAT 96; BMI 34.1
--- NOTE | 2024-02-08 20:18 | ED_ITS ---
HPI - Abdominal Pain General Chief Complaint: Abdominal Pain Stated Complaint: bloated/left side pain Time Seen by Provider: 02/08/24 23:58 Source: patient, RN notes reviewed and old records reviewed Mode of arrival: ambulatory Limitations: no limitations History of Present Illness HPI narrative: 28-year-old male presents for evaluation of abdominal pain Patient reports intermittent abdominal pain since this morning with diarrhea. He reports he feels ?a lump in the left lower abdomen He denies any nausea, vomiting. He denies any history abdominal surgeries. Denies any fevers or chills His pain is unrelated to eating or exercise His pain is currently a 4/10 and improved compared to this morning Related Data Home Medications ?Medication ?Instructions ?Recorded ?Confirmed albuterol sulfate 90 mcg/actuation 1 inh inhalation QID 12/26/23 12/26/23 aerosol inhaler benztropine 0.5 mg tablet 0.5 mg PO DAILY 12/26/23 12/26/23 clozapine 200 mg tablet (Clozaril) 300 mg PO BID 12/26/23 12/26/23 docusate sodium 100 mg capsule 100 mg PO BID 12/26/23 12/26/23 Allergies Allergy/AdvReac Type Severity Reaction Status Date / Time No Known Allergies Allergy Verified 02/08/24 20:21 [No Known Allergies*] Review of Systems Constitutional: Denies body ache(s), Denies chills and Denies fever(s) Denies sore throat Cardiovascular: Denies chest pain and Denies dyspnea Respiratory: Denies cough and Denies dyspnea Gastrointestinal: Reports abdominal pain, Denies melena, Denies hematochezia, Reports diarrhea, Reports loose stools, Denies nausea and Denies vomiting Genitourinary: Denies dysuria Musculoskeletal: Denies back pain Skin/Breast: Denies rash PMFSH Past Medical History Medical History Schizophrenia, paranoid, chronic with acute exacerbation Social History Social History Household Members: None Household Members Other:: 0 Housing: Apartment Do you presently have visiting nurse or other home services: No Unable to assess alcohol history related to: Refusing to respond Alcohol intake: unknown Comment: M3 Patient Tobacco Use Status: Current everyday Tobacco user Tobacco use type: Cigarette e-Cigarette/Vaping Use: Former Use Second Hand Smoke Exposure: No Substance Use Type: Marijuana Advance Directives: No Advance Directives Information Provided: Yes service: No Sexual orientation: Did not discuss Physical Exam ED Vital Signs: Vital Signs - 24 hr 02/08/24 20:18 02/08/24 22:16 02/08/24 23:42 Temperature 98.6 F 98.9 F 98.5 F Pulse Rate 125 H 121 H 116 H Respiratory Rate 18 18 20 Blood Pressure 116/81 121/82 117/75 Pulse Oximetry 96 97 95 Oxygen Delivery Method Room Air Room Air Room Air BMI result Body Mass Index 34.1 Const General: healthy appearing, comfortable, no acute distress, alert and awake Nutritional Appearance: well nourished Orientation/consciousness: patient oriented x3 HENMT Head: Yes normocephalic and Yes atraumatic Eyes Eyelids: Yes eyelids normal Conjunctivae: conjunctivae normal Sclerae: sclerae normal Corneas: corneas normal Pupils: Equal, round and reactive pupils present EOM: EOMs intact bilaterally Neck Neck: Yes full ROM Resp Effort & Inspection: normal respiratory effort, able to speak in complete sentences and not labored GI Other: Patient appears to have a palpable left abdominal wall hernia that is present in the standing position but self reduces in a supine position Inspection: No distended Palpation (GI): Soft to palpation, not firm, nontender, no guarding and not rigid Skin General skin exam: elasticity normal Neuro General: patient oriented x3 Cranial nerves: Yes Equal, round and reactive pupils present and Yes Bilaterally intact EOM present Cognition (Neuro): normal cognition Extrem Other: Moving all extremities well without any obvious deformities Course Course Course Narrative: This is a Rapid Medical Examination (RME) in triage, full HPI, ROS, assessment and plan per primary provider in the Main ED. 28 y/o male with history of acid reflux, schizophrenia presents today with left lower quadrant abdominal pain that started this morning and diarrhea that started yesterday. In triage, he is afebrile and tachycardiac at 126 bpm. Plan: labs, CT abdomen w/o contrast. Medical Decision Making Medical Decision Making MDM Narrative: 28-year-old male presents for evaluation of abdominal pain. I reviewed his labs, urine sample and CT scan that were ordered in triage. He does have a mild leukocytosis without a significant left shift. Chemistries have no electrolyte abnormalities. However he does have a mild transaminitis which she has had previously. The transaminases likely related to fatty liver which was documented on the CT scan. No other source of acute pathology documented on the CT scan. Patient's urinalysis is clear and does not show sign of infection or hematuria. The patient does appear to have an abdominal hernia on exam in the standing position which self reduces. He will be referred to General surgery Differential Diagnosis Differential Diagnoses: The differential diagnosis associated with the presentation includes Abdominal pain Inguinal hernia Spigelian hernia UTI Obstructive uropathy Colitis Diverticulitis Lab Data MDM Lab Attestation statement: I reviewed the patient's lab results. See above 02/08/24 20:47 02/08/24 20:47 Labs: Lab Results 02/08/24 Range/Units 20:47 WBC 11.2 H (4.8-10.8) X10*3/uL RBC 5.79 (4.60-5.80) X10*6/uL Hgb 16.9 (14.0-18.0) g/dl Hct 47.8 (42.0-52.0) % MCV 82.6 (80.0-98.0) fL MCH 29.2 (27.0-33.0) pg MCHC 35.4 (31.0-36.0) g/dl RDW 12.5 (11.0-16.0) % Plt Count 300 (160-400) X10*3/uL MPV 10.7 (9.4-12.4) fL Immature Gran % (Auto) 0.4 (0.0-0.4) % Neut % (Auto) 51.7 (45-73) % Lymph % (Auto) 37.4 (20-40) % Ocean % (Auto) 7.9 (2-11) % Eos % (Auto) 1.8 (0-4) % Baso % (Auto) 0.8 (0-2) % Lymph # (Auto) 4.2 (1.2-4.9) X10*3/uL Ocean # (Auto) 0.9 (0.1-1.2) X10*3/uL Eos # (Auto) 0.2 (0.0-0.4) X10*3/uL Baso # (Auto) 0.1 (0.0-0.2) X10*3/uL Abs Immat Gran (auto) 0.05 H (0.00-0.03) X10*3/uL Absolute Neuts (auto) 5.8 (2.0-8.3) x10*3/uL Absolute Nucleated RBC 0.000 (0.0-0.012) X10*3/uL Nucleated RBC % (auto) 0.0 (0.0-0.2) /100WBC Sodium 140 (135-145) mmol/L Potassium 3.6 (3.3-5.1) mmol/L Chloride 105 (96-108) mmol/L Carbon Dioxide 25 (22-29) mmol/L Anion Gap 14 (12-20) BUN 8 L (9-16) mg/dL Creatinine 0.80 (0.5-1.4) mg/dL Estim Creat Clear Calc 156.1 Estimated GFR > 60 Random Glucose 86 (60-115) mg/dL Calcium 10.2 (8.4-10.2) mg/dL Magnesium 2.1 (1.6-2.6) mg/dL Total Bilirubin 0.5 (0.0-1.0) mg/dL Direct Bilirubin 0.2 (0.0-0.5) mg/dL AST 46 H (5-37) U/L ALT 94 H (0-40) U/L Alkaline Phosphatase 68 (39-117) U/L Total Protein 8.4 H (6.5-8.0) g/dL Albumin 4.8 (3.5-5.0) g/dL Lipase 51 (8-78) U/L Urine Color Yellow Urine Appearance Clear Urine pH 5.5 (5.0-9.0) Ur Specific [place] 1.020 (1.005-1.025) Urine Protein Negative (Neg-Trace) mg/dL Urine Glucose (UA) Negative (Negative) mg/dL Urine Ketones Negative (Negative) mg/dL Urine Blood Negative (Negative) Urine Nitrite Negative (Negative) Ur Leukocyte Esterase Negative (Negative) Independent Interpretation I performed an independent interpretation of an: CT Scan (Fluid-filled bowel loops, mild constipation, possibly consistent with gastroenteritis) Radiology Impression Discussion of test interpretation with radiology: I have reviewed the radiologist's reading. (Fatty liver without other acute intra-abdominal process) Discharge Plan Discharge Clinical Impression: Abdominal pain, left lower quadrant Patient Disposition: Home, Self-Care Instructions: Acute Abdominal Pain (ED) Additional Instructions: Your workup in the ER today was reassuring. On exam it appears that you have an abdominal hernia Follow-up with general surgery. Call Dr. Winkler's office next week to schedule an appointment Prescriptions: No Action benztropine 0.5 mg tablet 0.5 mg PO DAILY clozapine [Clozaril] 200 mg tablet 300 mg PO BID docusate sodium 100 mg capsule 100 mg PO BID albuterol sulfate 90 mcg/actuation HFA aerosol inhaler 1 inh inhalation QID Referrals: Carlin Winkler MD [Physician] - (left abdominal hernia) Stand Alone Forms: Work/School Release Print Language: Luxembourgish
--- NOTE | 2024-02-08 20:50 | MHC.EDTECH ---
Patient brought into triage,labs and urine obtained and sent to lab.
[2024-02-08 20:53] LABS: MANUAL DIFF FLAG NO
[2024-02-08 20:56] LABS: Appearance Urine Clear; Color Urine Yellow; Glucose Urine UA Negative (Negative); Leukocyte Esterase Urine Negative (Negative); Nitrite Urine Negative (Negative); PH 5.5 (5.0-9.0); Urine Blood Negative (Negative); Urine Ketones Negative (Negative); Urine Protein Negative (Neg-Trace)
[2024-02-08 21:01] LABS: Basophils Absolute Auto 0.1 X10*3/uL (0.0-0.2); Basophils Percent Auto 0.8 % (0-2); Eosinophils Absolute Auto 0.2 X10*3/uL (0.0-0.4); Eosinophils Percent Auto 1.8 % (0-4); Hematocrit 47.8 % (42.0-52.0); Hemoglobin 16.9 g/dl (14.0-18.0); Imm Gran Abs Auto 0.05 X10*3/uL (0.00-0.03); Imm Gran Pct Auto 0.4 % (0.0-0.4); Lymphocytes Absolute Auto 4.2 X10*3/uL (1.2-4.9); Lymphocytes Percent Auto 37.4 % (20-40); Mean Corpuscular HGB Conc 35.4 g/dl (31.0-36.0); Mean Corpuscular Hemoglobin 29.2 pg (27.0-33.0); Mean Corpuscular Volume 82.6 fL (80.0-98.0); Mean Platelet Volume 10.7 fL (9.4-12.4); Monocytes Absolute Auto 0.9 X10*3/uL (0.1-1.2); Monocytes Percent Auto 7.9 % (2-11); Neutrophils Absolute Auto 5.8 x10*3/uL (2.0-8.3); Neutrophils Percent Auto 51.7 % (45-73); Platelet Count 300 X10*3/uL (160-400); Red Blood Count 5.79 X10*6/uL (4.60-5.80); Red Cell Distribution Width 12.5 % (11.0-16.0); White Blood Count 11.2 X10*3/uL (4.8-10.8)
[2024-02-08 21:09] LABS: Alanine Aminotransferase 94 U/L (0-40); Albumin Level 4.8 g/dL (3.5-5.0); Alkaline Phosphatase 68 U/L (39-117); Anion Gap 14 (12-20); Aspartate Amino Transferase 46 U/L (5-37); Bilirubin Direct 0.2 mg/dL (0.0-0.5); Bilirubin Total 0.5 mg/dL (0.0-1.0); Blood Urea Nitrogen 8 mg/dL (9-16); Calcium 10.2 mg/dL (8.4-10.2); Carbon Dioxide 25 mmol/L (22-29); Chloride 105 mmol/L (96-108); Creatinine Clr Calc Pharmacy 156.1; Estimated Glomerular Filt Rate > 60; Glucose Random 86 mg/dL (60-115); Lipase 51 U/L (8-78); Magnesium 2.1 mg/dL (1.6-2.6); Potassium 3.6 mmol/L (3.3-5.1); Sodium 140 mmol/L (135-145); Total Protein 8.4 g/dL (6.5-8.0)
[2024-02-08 22:16] VITALS: BP 121/82; PULSE 121; RESP 18; TEMP 37.2; O2SAT 97
[2024-02-08 23:42] VITALS: BP 117/75; PULSE 116; RESP 20; TEMP 36.9; O2SAT 95
[2024-02-09 01:24] VITALS: BP 117/75; PULSE 116; RESP 20; TEMP 36.9; O2SAT 95
== END 2024-02-09 00:05 | disposition home or self-care (01) ==
PROVIDERS: Physician Assistant; Emergency Provider Emergency Medicine Emergency Medical Services; PCP Internal Medicine
DX: R10.32 Left lower quadrant pain (principal); F17.210 Nicotine dependence, cigarettes, uncomplicated; Z79.899 Other long term (current) drug therapy
CPT/HCPCS: 36415; 74176; 80048; 80076; 81003; 83690; 83735; 85025; 99283; 99284

== ENCOUNTER 2024-02-13 08:50 | Outpatient (REF) | payer MEDICARE, SELFPAY | END 2024-02-13 08:51 | disposition home or self-care (01) | LOC: HO.US 08:50 | PROVIDERS: PCP Internal Medicine; Visit Provider Physician Assistant | DX: Z13.89 Encounter for screening for other disorder (principal) ==

== ENCOUNTER 2024-03-20 21:04 | Emergency (ER) | payer MEDICARE, SELFPAY ==
[2024-03-20 21:09] VITALS: BP 120/60; PULSE 129; RESP 20; TEMP 36.6; O2SAT 96; BMI 38.0
--- NOTE | 2024-03-20 22:27 | ED_ITS ---
HPI - General Adult General Chief complaint: Recheck/Abnormal Lab/Rx Stated complaint: needs asthma pump Time Seen by Provider: 03/20/24 22:22 Source: patient Mode of arrival: ambulatory Limitations: no limitations History of Present Illness HPI narrative: Patient comes to the emergency room requesting a prescription for his inhaler. Patient states that around this time of year, he gets asthma exacerbations. At this time, patient has no wheezing, no shortness of breath, feels well. Patient states that he has not called his PCP and is concerned that he will get an asthma exacerbation and will not have albuterol available. Related Data Home Medications ?Medication ?Instructions ?Recorded ?Confirmed albuterol sulfate 90 mcg/actuation 1 inh inhalation QID 12/26/23 12/26/23 aerosol inhaler benztropine 0.5 mg tablet 0.5 mg PO DAILY 12/26/23 12/26/23 clozapine 200 mg tablet (Clozaril) 300 mg PO BID 12/26/23 12/26/23 docusate sodium 100 mg capsule 100 mg PO BID 12/26/23 12/26/23 Previous Rx's ?Medication ?Instructions ?Recorded albuterol sulfate 90 mcg/actuation 2 puff inhalation Q4-6H PRN 03/20/24 aerosol inhaler shortness of breath or wheezing #8.5 grams Allergies Allergy/AdvReac Type Severity Reaction Status Date / Time No Known Allergies Allergy Verified 03/20/24 21:10 [No Known Allergies*] Review of Systems Review of Systems: Constitutional : No Weight loss, No Fever, No Chills, No Night Sweats, No Fatigue, No Malaise ENT/Mouth : No Hearing loss, No Ear Pain, No Nasal Congestion, No Sinus Pain, No Hoarseness, No sore throat, No Rhinorrhea, No Swallowing Difficulty Eyes: No Eye Pain, No Swelling, No Redness, No Foreign Body, No Discharge, No Vision Changes Cardiovascular : No Chest Pain, No SOB, No Dyspnea on Exertion, No Orthopnea, No Edema, No Palpitations Respiratory : No Cough, No Sputum, No Wheezing, No Smoke Exposure, No Dyspnea Gastrointestinal : No Nausea, No Vomiting, No Diarrhea, No Constipation, No abdominal Pain, No Hematochezia, No Melena Genitourinary : no irregular bleeding, No Dysuria, No Urinary Frequency, No Hematuria, No Urinary Incontinence, No Urgency, No Flank Pain, No Urinary Flow Changes, No Hesitancy Musculoskeletal : No joint pain, No Myalgias, No Joint Swelling Skin : No Skin Lesions, No rash Neuro : No Weakness, No Numbness, No Paresthesias, No Loss of Consciousness, No Dizziness, No Headache Psych : No Anxiety/Panic, No Depression, No SI/HI/AH/VH, No Social Issues, Heme/Lymph: No Bruising, No Bleeding,No Lymphadenopathy Endocrine : No Polyuria, No Polydipsia, No Temperature Intolerance [facility] Past Medical History Medical History Schizophrenia, paranoid, chronic with acute exacerbation Social History Social History Household Members: None Household Members Other:: 0 Housing: Apartment Do you presently have visiting nurse or other home services: No Unable to assess alcohol history related to: Refusing to respond Alcohol intake: unknown Comment: M3 Patient Tobacco Use Status: Current everyday Tobacco user Tobacco use type: Cigarette e-Cigarette/Vaping Use: Former Use Second Hand Smoke Exposure: No Substance Use Type: Marijuana Advance Directives: No Advance Directives Information Provided: No Do you have a plan to hurt others: No Plan service: No Sexual orientation: Did not discuss Physical Exam ED Vital Signs: Vital Signs - 24 hr 03/20/24 21:09 Temperature 97.9 F Pulse Rate 129 H Respiratory Rate 20 Blood Pressure 120/60 Pulse Oximetry 96 Oxygen Delivery Method Room Air BMI result Body Mass Index 38.0 Const Other: Appearance: Alert. Oriented X3. No acute distress. Eyes: Pupils equal, round and reactive to light. ENT: Pharynx normal. Neck: Normal inspection. Neck supple. No lymph nodes noted. No crepitus CVS: Normal heart rate and rhythm. Pulses normal. Normal S1 and S2 Respiratory: No respiratory distress. Breath sounds normal. No Wheezing. No rales Abdomen: Soft and nontender. No rigidity. No distention. Skin: Skin warm and dry. Normal skin color. Normal skin turgor. Extremities: No lower extremity edema. No Lacerations. No Rash Neuro: Oriented X 3. No motor deficit. No sensory deficit. Moving all extremities. No slurred speech. CN 2 through 12 grossly intact Psych: calm, cooperative, normal affect Discharge Plan Discharge Clinical Impression: Medication refill Patient Disposition: Home, Self-Care Instructions: Medicine Refill (ED) Additional Instructions: Please follow-up with your primary care physician tomorrow. If you have any worsening or new symptoms, please return to the emergency room or call 911 Prescriptions: New albuterol sulfate 90 mcg/actuation HFA aerosol inhaler 2 puff inhalation Q4-6H PRN (Reason: shortness of breath or wheezing) Qty: 8.5 1RF No Action benztropine 0.5 mg tablet 0.5 mg PO DAILY clozapine [Clozaril] 200 mg tablet 300 mg PO BID docusate sodium 100 mg capsule 100 mg PO BID albuterol sulfate 90 mcg/actuation HFA aerosol inhaler 1 inh inhalation QID Print Language: Grenadian
[2024-03-20 22:32] VITALS: BP 148/68; PULSE 98; RESP 18; TEMP 36.6; O2SAT 100
== END 2024-03-20 22:33 | disposition home or self-care (01) ==
PROVIDERS: Emergency Provider Emergency Medicine
DX: Z76.0 Encounter for issue of repeat prescription (principal)
CPT/HCPCS: 99282; 99283

== ENCOUNTER 2024-03-31 12:26 | Outpatient (REF) | payer MEDICARE, SELFPAY ==
[2024-03-31 13:10] LABS: Neut%MD 51.6 %; WBCANC 7.8 X10*3/uL
== END 2024-03-31 12:27 | disposition home or self-care (01) ==
LOC: HO.LABR 12:26
PROVIDERS: Visit Provider Psychiatry & Neurology Psychiatry
DX: Z79.899 Other long term (current) drug therapy (principal)
CPT/HCPCS: 36415; 85048

== ENCOUNTER 2024-04-23 10:34 | Outpatient (REF) | payer MEDICARE, SELFPAY ==
[2024-04-23 10:48] LABS: MANUAL DIFF FLAG NO
[2024-04-23 13:01] LABS: Basophils Absolute Auto 0.1 X10*3/uL (0.0-0.2); Basophils Percent Auto 0.6 % (0-2); Eosinophils Absolute Auto 0.2 X10*3/uL (0.0-0.4); Eosinophils Percent Auto 2.5 % (0-4); Hematocrit 46.9 % (42.0-52.0); Hemoglobin 16.2 g/dl (14.0-18.0); Imm Gran Abs Auto 0.03 X10*3/uL (0.00-0.03); Imm Gran Pct Auto 0.4 % (0.0-0.4); Lymphocytes Absolute Auto 3.1 X10*3/uL (1.2-4.9); Lymphocytes Percent Auto 36.6 % (20-40); Mean Corpuscular HGB Conc 34.5 g/dl (31.0-36.0); Mean Corpuscular Volume 83.9 fL (80.0-98.0); Mean Platelet Volume 11.1 fL (9.4-12.4); Monocytes Absolute Auto 0.6 X10*3/uL (0.1-1.2); Monocytes Percent Auto 7.4 % (2-11); Neutrophils Absolute Auto 4.4 x10*3/uL (2.0-8.3); Neutrophils Percent Auto 52.5 % (45-73); Platelet Count 273 X10*3/uL (160-400); Red Blood Count 5.59 X10*6/uL (4.60-5.80); Red Cell Distribution Width 12.6 % (11.0-16.0); White Blood Count 8.5 X10*3/uL (4.8-10.8)
== END 2024-04-23 10:35 | disposition home or self-care (01) ==
LOC: HO.LABR 10:34
PROVIDERS: Visit Provider Psychiatry & Neurology Psychiatry
DX: Z79.899 Other long term (current) drug therapy (principal)
CPT/HCPCS: 36415; 85025

== ENCOUNTER 2024-05-27 12:41 | Outpatient (REF) | payer MEDICARE, SELFPAY ==
[2024-05-27 12:53] LABS: MANUAL DIFF FLAG NO
[2024-05-27 13:40] LABS: Basophils Absolute Auto 0.1 X10*3/uL (0.0-0.2); Basophils Percent Auto 0.7 % (0-2); Eosinophils Absolute Auto 0.2 X10*3/uL (0.0-0.4); Eosinophils Percent Auto 2.9 % (0-4); Hematocrit 47.5 % (42.0-52.0); Hemoglobin 16.5 g/dl (14.0-18.0); Imm Gran Abs Auto 0.03 X10*3/uL (0.00-0.03); Imm Gran Pct Auto 0.4 % (0.0-0.4); Lymphocytes Absolute Auto 3.2 X10*3/uL (1.2-4.9); Lymphocytes Percent Auto 39.6 % (20-40); Mean Corpuscular HGB Conc 34.7 g/dl (31.0-36.0); Mean Corpuscular Hemoglobin 29.4 pg (27.0-33.0); Mean Corpuscular Volume 84.5 fL (80.0-98.0); Mean Platelet Volume 10.8 fL (9.4-12.4); Monocytes Absolute Auto 0.6 X10*3/uL (0.1-1.2); Monocytes Percent Auto 7.1 % (2-11); Neutrophils Percent Auto 49.3 % (45-73); Platelet Count 275 X10*3/uL (160-400); Red Blood Count 5.62 X10*6/uL (4.60-5.80); Red Cell Distribution Width 12.5 % (11.0-16.0); White Blood Count 8.2 X10*3/uL (4.8-10.8)
[2024-05-27 14:34] LABS: Alanine Aminotransferase 68 U/L (0-40); Albumin Level 4.7 g/dL (3.5-5.0); Alkaline Phosphatase 59 U/L (39-117); Anion Gap 14 (12-20); Aspartate Amino Transferase 35 U/L (5-37); Bilirubin Total 0.5 mg/dL (0.0-1.0); Blood Urea Nitrogen 13 mg/dL (9-16); Calcium 9.5 mg/dL (8.4-10.2); Carbon Dioxide 23 mmol/L (22-29); Chloride 108 mmol/L (96-108); Cholesterol 202 mg/dL (<200); Estimated Glomerular Filt Rate > 60; Glucose Random 96 mg/dL (60-115); HDL Cholesterol 32 mg/dL (>40); LDL Cholesterol Calculated 106 mg/dL (<100); Potassium 3.7 mmol/L (3.3-5.1); Sodium 141 mmol/L (135-145); Total Protein 7.8 g/dL (6.5-8.0); Triglycerides 323 mg/dL (<150)
[2024-05-28 05:04] LABS: HBS Num1 2.01 mIU/mL (0-7.99); HBc Num1 0.12 S/CO (0.00-0.79); HBsAGNum1 0.39 S/CO (0.00-0.99); Hepatitis A Antibody IgM 0.23 Index (0-0.79); Hepatitis B Core Antibody Nonreactive (Nonreactive); Hepatitis B Surface Antigen Negative (Negative); ~HepC Num1 0.11 S/CO (0.00-0.79); ~Hepatitis A Antibody IgM Nonreactive (Nonreactive); ~Hepatitis B Surface Antibody NONREACTIVE (Nonreactive); ~Hepatitis C Antibody Nonreactive (Nonreactive)
[2024-05-29 15:18] LABS: Mitochondrial Antibodies NEGATIVE (NEGATIVE)
[2024-06-02 13:58] LABS: Smooth Muscle Antibody <20 U (<20)
[2024-06-02 14:53] LABS: ANA Pattern 2 Nuclear, Nucleolar; Anti Nuclear Antibody Screen POSITIVE (NEGATIVE)
== END 2024-05-27 12:42 | disposition home or self-care (01) ==
LOC: HO.LABR 12:41
PROVIDERS: Physician Assistant; Visit Provider Psychiatry & Neurology Psychiatry
DX: Z79.899 Other long term (current) drug therapy (principal); R74.01 Elevation of levels of liver transaminase levels; R74.8 Abnormal levels of other serum enzymes; R79.89 Other specified abnormal findings of blood chemistry
CPT/HCPCS: 36415; 80053; 80061; 85025; 86015; 86038; 86039; 86381; 86704; 86706; 86709; 86803; 87340

== ENCOUNTER 2024-07-22 10:03 | Outpatient (REF) | payer MEDICARE, SELFPAY ==
[2024-07-22 10:27] LABS: Basophils Absolute Auto 0.1 X10*3/uL (0.0-0.2); Basophils Percent Auto 0.7 % (0-2); Eosinophils Absolute Auto 0.2 X10*3/uL (0.0-0.4); Eosinophils Percent Auto 2.2 % (0-4); Imm Gran Abs Auto 0.08 X10*3/uL (0.00-0.03); Imm Gran Pct Auto 0.9 % (0.0-0.4); Lymphocytes Percent Auto 33.7 % (20-40); MANUAL DIFF FLAG SCAN; Mean Corpuscular HGB Conc 35.6 g/dl (31.0-36.0); Mean Corpuscular Hemoglobin 29.4 pg (27.0-33.0); Mean Corpuscular Volume 82.6 fL (80.0-98.0); Monocytes Absolute Auto 0.5 X10*3/uL (0.1-1.2); Monocytes Percent Auto 5.2 % (2-11); Neutrophils Absolute Auto 5.1 x10*3/uL (2.0-8.3); Neutrophils Percent Auto 57.3 % (45-73); PLT CLUMP 1; Red Blood Count 5.45 X10*6/uL (4.60-5.80); Red Cell Distribution Width 12.4 % (11.0-16.0); SCAN SMEAR FLAG 1
[2024-07-22 11:20] LABS: Mean Platelet Volume 10.2 fL (9.4-12.4); Platelet Count 283 X10*3/uL (160-400); SLIDE REVIEW VERIFIED
[2024-07-22 11:36] LABS: Alanine Aminotransferase 56 U/L (0-40); Albumin Level 4.4 g/dL (3.5-5.0); Alkaline Phosphatase 61 U/L (39-117); Anion Gap 14 (12-20); Aspartate Amino Transferase 34 U/L (5-37); Bilirubin Total 0.4 mg/dL (0.0-1.0); Blood Urea Nitrogen 8 mg/dL (9-16); Calcium 9.6 mg/dL (8.4-10.2); Carbon Dioxide 21 mmol/L (22-29); Chloride 108 mmol/L (96-108); Cholesterol 191 mg/dL (<200); Estimated Glomerular Filt Rate > 60; Glucose Random 125 mg/dL (60-115); HDL Cholesterol 32 mg/dL (>40); Potassium 3.7 mmol/L (3.3-5.1); Sodium 139 mmol/L (135-145); Total Protein 7.8 g/dL (6.5-8.0); Triglycerides 498 mg/dL (<150)
[2024-07-22 12:00] LABS: Hepatitis A Antibody IgG REACTIVE (Nonreactive); ~Hepatitis A Antibody IgG 8.17 S/CO (0.00-0.99)
[2024-07-22 12:57] LABS: Reflex LDLD? Yes
== END 2024-07-22 10:04 | disposition home or self-care (01) ==
LOC: HO.US 10:03
PROVIDERS: Absent Provider Psychiatry & Neurology Psychiatry; PCP Family Medicine; Visit Provider Family Medicine
DX: K76.0 Fatty (change of) liver, not elsewhere classified (principal); Z79.899 Other long term (current) drug therapy; Z01.84 Encounter for antibody response examination
CPT/HCPCS: 36415; 80053; 80061; 83721; 85025; 86708

== ENCOUNTER 2024-08-27 10:42 | Outpatient (REF) | payer MEDICARE, SELFPAY ==
[2024-08-27 11:16] LABS: Basophils Absolute Auto 0.1 X10*3/uL (0.0-0.2); Basophils Percent Auto 0.8 % (0-2); Eosinophils Absolute Auto 0.3 X10*3/uL (0.0-0.4); Eosinophils Percent Auto 3.4 % (0-4); Hematocrit 48.4 % (42.0-52.0); Hemoglobin 16.9 g/dl (14.0-18.0); Imm Gran Abs Auto 0.04 X10*3/uL (0.00-0.03); Imm Gran Pct Auto 0.5 % (0.0-0.4); Lymphocytes Absolute Auto 3.6 X10*3/uL (1.2-4.9); MANUAL DIFF FLAG SCAN; Mean Corpuscular HGB Conc 34.9 g/dl (31.0-36.0); Mean Corpuscular Hemoglobin 29.3 pg (27.0-33.0); Mean Corpuscular Volume 83.9 fL (80.0-98.0); Monocytes Absolute Auto 0.5 X10*3/uL (0.1-1.2); Monocytes Percent Auto 5.5 % (2-11); Neutrophils Absolute Auto 4.1 x10*3/uL (2.0-8.3); Neutrophils Percent Auto 47.8 % (45-73); PLT CLUMP 1; Red Blood Count 5.77 X10*6/uL (4.60-5.80); Red Cell Distribution Width 12.7 % (11.0-16.0); SCAN SMEAR FLAG 1
[2024-08-27 12:28] LABS: Platelet Count 254 X10*3/uL (160-400); White Blood Count 8.5 X10*3/uL (4.8-10.8)
[2024-08-27 12:29] LABS: SLIDE REVIEW VERIFIED
== END 2024-08-27 10:43 | disposition home or self-care (01) ==
LOC: HO.LABR 10:42
PROVIDERS: Visit Provider Psychiatry & Neurology Psychiatry
DX: Z79.899 Other long term (current) drug therapy (principal)
CPT/HCPCS: 36415; 85025

== ENCOUNTER 2024-09-30 14:57 | Outpatient (REF) | payer MEDICARE, SELFPAY | END 2024-09-30 14:58 | disposition home or self-care (01) | LOC: HO.LABR 14:57 | PROVIDERS: Visit Provider Psychiatry & Neurology Psychiatry | DX: Z79.899 Other long term (current) drug therapy (principal) | CPT/HCPCS: 36415 ==

== ENCOUNTER 2024-11-09 14:04 | Outpatient (REF) | payer MEDICARE, SELFPAY ==
[2024-11-09 14:22] LABS: MANUAL DIFF FLAG NO
[2024-11-09 14:48] LABS: Basophils Absolute Auto 0.1 X10*3/uL (0.0-0.2); Basophils Percent Auto 0.6 % (0-2); Eosinophils Absolute Auto 0.2 X10*3/uL (0.0-0.4); Hematocrit 46.7 % (42.0-52.0); Hemoglobin 15.9 g/dl (14.0-18.0); Imm Gran Abs Auto 0.06 X10*3/uL (0.00-0.03); Imm Gran Pct Auto 0.7 % (0.0-0.4); Lymphocytes Absolute Auto 2.7 X10*3/uL (1.2-4.9); Lymphocytes Percent Auto 32.1 % (20-40); Mean Corpuscular Hemoglobin 28.6 pg (27.0-33.0); Mean Corpuscular Volume 84.1 fL (80.0-98.0); Mean Platelet Volume 10.3 fL (9.4-12.4); Monocytes Absolute Auto 0.5 X10*3/uL (0.1-1.2); Monocytes Percent Auto 5.8 % (2-11); Neutrophils Absolute Auto 4.9 x10*3/uL (2.0-8.3); Neutrophils Percent Auto 58.8 % (45-73); Platelet Count 285 X10*3/uL (160-400); Red Blood Count 5.55 X10*6/uL (4.60-5.80); Red Cell Distribution Width 12.4 % (11.0-16.0); White Blood Count 8.3 X10*3/uL (4.8-10.8)
--- OUTSIDE RECORDS SUMMARY | 2024-11-09 16:24 | XMS_ITS | Clinical Summary ---
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 Name Role Phone ADRIAN MENA, RAJENDRA Unavailable Unavailable MILAGROS MUNOZ, BROWN Unavailable Unavailable Payers Payer Name Policy Type Policy Number Effective Date Expira tion Date [facility] ADV [id number] [place] [id number] [facility] CARE [place] [id number] MED[place] - [place] [id number] Problems Condition Name Condition Details Condition Category Status Onset Date Resolution Date Last Treatment Date Treating Clinician Comments PARANOID SCHIZOPHRENI A Active 05-01 00:00: 00 Allergies, Adverse Reactions, Alerts Allergy Name Allergy Type Status Severity Reaction(s) Onset Date Inactive Date Treating Clinician Comments NKA Propensity to adverse reactions Active 2022-05 14:44:5 2 Medications Ordered Medication Name Filled Medication Name Start Date Stop Date Current Medication? Ordering Clinician Indication Dosage Frequency Signature (SIG) Comments Components benztropine 1 mg tablet 2020-11 00:00: 00 05-09 23:59 :00 No [id number] 1 mg BEDTIME 1 mg BEDTIME (route: oral) Med Classific ation: Central Nervous System Agents Depakote ER 500 mg tablet,exte nded release 2020-11 00:00: 00 09-01 23:59 :00 No [id number] 500 mg EVERY AM 500 mg EVERY AM (route: oral) Med Classific ation: Central Nervous System Agents Depakote ER 500 mg tablet,exte nded release 2020-11 00:00: 00 09-01 23:59 :00 No [id number] 500 mg BEDTIME 500 mg BEDTIME (route: oral) Med Classific ation: Central Nervous System Agents haloperidol decanoate 50 mg/mL intramuscul ar solution 2020-11 00:00: 05-09 23:59 :00 No [id number] 50 mg MONTHLY 50 mg MONTHLY (route: intramuscu lar) Med Classific ation: Central Nervous System Agents Depakote ER 500 mg tablet,exte nded release 2020-11 00:00: 00 05-09 23:59 :00 No [id number] 500 mg EVERY AM 500 mg EVERY AM (route: oral) Med Classific ation: Central Nervous System Agents albuterol sulfate HFA 90 mcg/actuati on aerosol inhaler 05-09 00:00: 00 Yes [id number] 2 puff DIRECTED 2 puff DIRECTED (route: inhalation ) Med Classific ation: Respirato ry Therapy Agents benztropine 0.5 mg tablet 05-09 00:00: 00 Yes [id number] 0.5 mg BEDTIME 0.5 mg BEDTIME (route: oral) Med Classific ation: Central Nervous System Agents clozapine 100 mg tablet 05-09 00:00: 00 Yes [id number] 100 mg DAILY 100 mg DAILY (route: oral) Med Classific ation: Central Nervous System Agents Vital Signs Vital Name Observation Time Observation Value Commen ts Temperature 2024-11-08 09:55:00.000 97.7 [degF] Temperature 2024-11-07 10:44:00.000 97.5 [degF] Temperature 2024-11-06 23:50:00.000 97.7 [degF] Temperature 2024-11-05 11:15:00.000 97.5 [degF] Temperature 2024-11-04 12:22:00.000 98 [degF] Temperature 2024-11-03 23:31:00.000 98.1 [degF] Temperature 2024-11-02 16:47:00.000 98 [degF] Temperature 2024-11-01 10:16:00.000 98 [degF] Temperature 2024-10-31 10:57:00.000 97.5 [degF] Temperature 2024-10-30 13:21:00.000 98 [degF] Temperature 2024-10-29 11:07:00.000 98.1 [degF] Temperature 2024-10-28 18:06:00.000 98 [degF] Temperature 2024-10-27 23:00:00.000 97.6 [degF] Temperature 2024-10-26 15:19:00.000 98 [degF] Temperature 2024-10-25 10:36:00.000 97.5 [degF] Plan of Treatment Planned Activity Planned Date Details Comments Future Scheduled Test SKILLED NU RSE TO EVALUATE PATIENT, IDENTIFY PRIMARY AND CO-MORBID CONDITIONS CODED PER CODING GUIDELINES, AND DEVELOP PATIENT SPECIFIC PLAN OF CARE THAT INCLUDES PATIENT GOAL FOR HOME HEALTH. [code = SKILLED NURSE TO EVALUATE PATIENT, IDENTIFY PRIMARY AND CO-MORBID CONDITIONS CODED PER CODING GUIDELINES, AND DEVELOP PATIENT SPECIFIC PLAN OF CARE THAT INCLUDES PATIENT GOAL FOR HOME HEALTH.] Future Scheduled Test SKILLED NU RSE TO PERFORM HOME SAFETY AND FALL ASSESSMENT AND PROVIDE INSTRUCTION TO IMPLEMENT HOME SAFETY AND FALL PREVENTION STRATEGIES. [code = SKILLED NURSE TO PERFORM HOME SAFETY AND FALL ASSESSMENT AND PROVIDE INSTRUCTION TO IMPLEMENT HOME SAFETY AND FALL PREVENTION STRATEGIES.] Future Scheduled Test PATIENT MAHER S A RISK OF HOSPITALIZATION AND ED USE. SKILLED NURSE TO ESTABLISH SUPPORT MEASURES TO MINIMIZE RISK OF HOSPITALIZATION AND ED USE, AND INSTRUCT PATIENT/CAREGIVER ON METHODS TO REDUCE AVOIDABLE HOSPITALIZATION AND ED USE. [code = PATIENT HAS A RISK OF HOSPITALIZATION AND ED USE. SKILLED NURSE TO ESTABLISH SUPPORT MEASURES TO MINIMIZE RISK OF HOSPITALIZATION AND ED USE, AND INSTRUCT PATIENT/CAREGIVER ON METHODS TO REDUCE AVOIDABLE HOSPITALIZATION AND ED USE.] Future Scheduled Test SKILLED NU RSE WILL MAINTAIN SITUATIONAL AWARENESS FOR SAFETY AND WILL NOTIFY CLINICAL RISK PREVENTION ENGINEER AND PHYSICIAN/PROVIDER WITH ANY CHANGE IN CONDITION. [code = SKILLED NURSE WILL MAINTAIN SITUATIONAL AWARENESS FOR SAFETY AND WILL NOTIFY CLINICAL RISK PREVENTION ENGINEER AND PHYSICIAN/PROVIDER WITH ANY CHANGE IN CONDITION.] Future Scheduled Test SKILLED NU RSE TO REVIEW PATIENT MEDICATIONS. INSTRUCT PATIENT/CAREGIVER ON MONITORING OF EFFECTIVENESS, ADVERSE DRUG REACTIONS, SIDE EFFECTS OF ALL MEDICATIONS (PRESCRIPTION/-OTC), AND HOW AND WHEN TO REPORT PROBLEMS. [code = SKILLED NURSE TO REVIEW PATIENT MEDICATIONS. INSTRUCT PATIENT/CAREGIVER ON MONITORING OF EFFECTIVENESS, ADVERSE DRUG REACTIONS, SIDE EFFECTS OF ALL MEDICATIONS (PRESCRIPTION/-OTC), AND HOW AND WHEN TO REPORT PROBLEMS.] Future Scheduled Test SKILLED NU RSE TO ADMINISTER MEDICATIONS DAILY AND PRE-POUR MEDICATIONS TILL NEXT [facility] VISIT PER MEDICATION LIST. [code = SKILLED NURSE TO ADMINISTER MEDICATIONS DAILY AND PRE-POUR MEDICATIONS TILL NEXT [facility] VISIT PER MEDICATION LIST.] Future Scheduled Test SKILLED NU RSE FOR MEDICATION ADMINISTRATION PER MEDICATION LIST TO BE PERFORMED DAILY [code = SKILLED NURSE FOR MEDICATION ADMINISTRATION PER MEDICATION LIST TO BE PERFORMED DAILY ] Future Scheduled Test SKILLED NU RSE FOR O/A AND SKILLED TEACHING RELATED TO MANAGEMENT OF DEPRESSIVE SYMPTOMS AND/OR DEPRESSION. SN TO REPORT SIGNIFICANT CHANGE IN DEPRESSIVE SYMPTOMS TO CLINICAL PROVIDER FOR EARLY INTERVENTION. [code = SKILLED NURSE FOR O/A AND SKILLED TEACHING RELATED TO MANAGEMENT OF DEPRESSIVE SYMPTOMS AND/OR DEPRESSION. SN TO REPORT SIGNIFICANT CHANGE IN DEPRESSIVE SYMPTOMS TO CLINICAL PROVIDER FOR EARLY INTERVENTION.] Future Scheduled Test SKILLED NU RSE FOR O/A OF PATIENT'S RISK FOR VIOLENCE (TOWARD SELF OR OTHERS) AND TO PROVIDE INTERVENTION TECHNIQUES TO PROMOTE SAFETY TO PATIENT AND OTHERS [code = SKILLED NURSE FOR O/A OF PATIENT'S RISK FOR VIOLENCE (TOWARD SELF OR OTHERS) AND TO PROVIDE INTERVENTION TECHNIQUES TO PROMOTE SAFETY TO PATIENT AND OTHERS] Future Scheduled Test SKILLED NU RSE FOR O/A OF ALTERED THOUGHT PROCESS AND/OR DISRUPTION IN COGNITIVE OPERATIONS AND ACTIVITIES [code = SKILLED NURSE FOR O/A OF ALTERED THOUGHT PROCESS AND/OR DISRUPTION IN COGNITIVE OPERATIONS AND ACTIVITIES ] Future Scheduled Test SKILLED NU RSE TO ASSESS PATIENTS PSYCHOSOCIAL STATUS TO IDENTIFY POTENTIAL ISSUES THAT MAY COMPLICATE THE PROVISION OF THE PLAN OF CARE INCLUDING THE PATIENTS ABILITY TO ACCESS COMMUNITY RESOURCES AND PSYCHOSOCIAL SUPPORT SERVICES. [code = SKILLED NURSE TO ASSESS PATIENTS PSYCHOSOCIAL STATUS TO IDENTIFY POTENTIAL ISSUES THAT MAY COMPLICATE THE PROVISION OF THE PLAN OF CARE INCLUDING THE PATIENTS ABILITY TO ACCESS COMMUNITY RESOURCES AND PSYCHOSOCIAL SUPPORT SERVICES.] Future Scheduled Test SKILLED NU RSE FOR O/A OF CLIENT'S SOCIAL ISOLATION AND PROVIDE ASSISTANCE TO CLIENT IN DEVELOPMENT OF PLANNED ACTIVITIES [code = SKILLED NURSE FOR O/A OF CLIENT'S SOCIAL ISOLATION AND PROVIDE ASSISTANCE TO CLIENT IN DEVELOPMENT OF PLANNED ACTIVITIES] Future Scheduled Test MEDICATION S WILL BE HELD AND STORED IN LOCKBOX [code = MEDICATIONS WILL BE HELD AND STORED IN LOCKBOX] Goal 2023-02-28 Patient Goal - T AKING MY MEDICATION EVERY DAY Goal 2023-04-29 Patient Goal - T AKING MY MEDICATION EVERY DAY Goal 2023-06-28 Patient Goal - T AKING MY MEDICATION EVERY DAY Goal 2023-08-27 Patient Goal - T AKING MY MEDICATION EVERY DAY Goal 2023-10-26 Patient Goal - T AKING MY MEDICATION EVERY DAY Goal 2023-12-25 Patient Goal - T AKING MY MEDICATION EVERY DAY Goal 2024-02-24 Patient Goal - T AKING MY MEDICATION EVERY DAY Goal 2024-04-23 Patient Goal - T AKING MY MEDICATION EVERY DAY Goal 2024-06-22 Patient Goal - T AKING MY MEDICATION EVERY DAY Goal 2024-08-21 Patient Goal - T AKING MY MEDICATION EVERY DAY Goal 2024-10-20 Patient Goal - T AKING MY MEDICATION EVERY DAY Goal Patient Goal - T AKING MY MEDICATION EVERY DAY Goal 2022-12-31 Patient Goal - T AKING MY MEDICATION EVERY DAY Goal 2022-10-31 Patient Goal - T AKING MY MEDICATION EVERY DAY Goal 2022-09-01 Patient Goal - T AKING MY MEDICATION EVERY DAY Goal 2022-07-03 Patient Goal - T AKING MY MEDICATION EVERY DAY Goal Provider Goal - A PLAN OF CARE WILL BE ESTABLISHED THAT MEETS PATIENT'S [facility] NEEDS AND INCLUDES PATIENT GOAL FOR HOME HEALTH. Goal Provider Goal - PATIENT/CAREGIVER WILL VERBALIZE/DEMONSTRATE EFFECTIVE HOME SAFETY AND FALL PREVENTION STRATEGIES THROUGHOUT CERTIFICATION PERIOD. Goal Provider Goal - PATIENT WILL HAVE SUPPORT MEASURES ESTABLISHED TO PREVENT HOSPITALIZATION AND ED USE AND PATIENT/CAREGIVER WILL VERBALIZE/DEMONSTRATE METHODS TO REDUCE AVOIDABLE HOSPITALIZATION AND ED USE BY END OF EPISODE. Goal Provider Goal - PATIENT WILL REMAIN SAFE IN THE COMMUNITY AND WILL BE FREE OF DANGER TO SELF AND OTHERS THROUGHOUT THE CERTIFICATION PERIOD. Goal Provider Goal - PATIENT/CAREGIVER WILL VERBALIZE UNDERSTANDING OF EDUCATION PROVIDED ON MEDICATIONS BY THE END OF THE CERTIFICATION PERIOD. Goal Provider Goal - PATIENT WILL COMPLY WITH MEDICATION WHEN SKILLED NURSE ADMINISTERS AND PRE-POURS MEDICATION THROUGHOUT CERTIFICATION PERIOD. Goal Provider Goal - PATIENT WILL COMPLY WITH MEDICATION WHEN NURSE ADMINISTERS THROUGHOUT CERTIFICATION PERIOD. Goal Provider Goal - PATIENT WILL REMAIN SAFE WITHOUT DECOMPENSATION IN DEPRESSIVE CONDITION, WHILE MAINTAINING OPTIMAL LEVEL OF MENTAL HEALTH AND WELL BEING THROUGHOUT CERTIFICATION PERIOD. Goal Provider Goal - PATIENT WILL REMAIN SAFE IN COMMUNITY WITHOUT EVIDENCE OF INJURY/HARM TO SELF OR OTHERS THROUGHOUT CERTIFICATION PERIOD. Goal Provider Goal - PATIENT WILL BE ABLE TO PERFORM DAILY FUNCTIONS AND HAVE OPTIMAL IMPROVEMENT IN THOUGHT PROCESS THROUGHOUT CERTIFICATION PERIOD. Goal Provider Goal - PSYCHOSOCIAL NEEDS WILL BE IDENTIFIED AND PLAN IMPLEMENTED TO MINIMIZE RISK THROUGHOUT CERTIFICATION PERIOD. Goal Provider Goal - PATIENT WILL DEMONSTRATE AN INCREASED INTEREST IN SOCIALIZATION AND ACTIVITIES BY THE END OF THE CERTIFICATION PERIOD. Goal Provider Goal - MEDICATION WILL BE STORED IN LOCKBOX FOR SAFETY. Progress Notes Progress Notes <paragraph>[Visit Date: 2024 by BROWN LINARES RN]:</paragraph><paragraph>PATIENT EDUCATED THAT DEPRESSION/ANXIETY S/S INCLUDE CHANGES IN EATING/SLEEPING PATTERNS AND INABILITY TO FUNCTION DUE TO SENSE OF FEAR/DOOM, REPORT THOSE S/S TO SN/MD, PATIENT VERBALIZED UNDERSTANDING.</paragraph> <paragraph>[Visit Date: 2024 by BROWN LINARES RN]:</paragraph><paragraph>PATIENT EDUCATED ABOUT A LOW CHOLESTEROL DIET, FOODS HIGH IN CHOLESTEROL INCLUDE FOODS WITH SATURATED FATS LIKE BUTTER AND LARD, PROCESSED COOKIES/CRACKERS, AND EGG YOLKS, PATIENT VERBALIZED UNDERSTANDING.</paragraph> <paragraph>[Visit Date: 2024 by BROWN LINARES RN]:</paragraph><paragraph>PATIENT EDUCATED ABOUT FLU SEASON, THE BEST PREVENTION IS GETTING THE FLU SHOT AND WASHING HANDS FREQUENTLY, ESPECIALLY AFTER BEING OUT IN THE COMMUNITY, PATIENT VERBALIZED UNDERSTANDING.</paragraph> <paragraph>[Visit Date: 2024 by BROWN LINARES RN]:</paragraph><paragraph>PATIENT EDUCATED ABOUT COPING SKILLS INCLUDING ENGAGING IN A HOBBY, AVOIDING W THAT CAUSE DEPRESSION/ANXIETY, AND TALKING TO A PROFESSIONAL/TRUSTED FRIENDS/FAMILY ABOUT FEELINGS, PATIENT VERBALIZED UNDERSTANDING.</paragraph> <paragraph>[Visit Date: 2024 by BROWN LINARES RN]:</paragraph><paragraph>PATIENT EDUCATED THAT KEEPING A FOOD DIARY ABOUT ORDERED DIETS COULD HELP DETERMINE IF DIET GUIDELINES ARE BEING FOLLOWED OVER TIME, PATIENT VERBALIZED UNDERSTANDING.</paragraph> <paragraph>[Visit Date: 2023 by BROWN LINARES RN]:</paragraph><paragraph>PATIENT EDUCATED ABOUT AVOIDING DRUGS/ALCOHOL, ATTEND ACCOUNTABILITY GROUPS LIKE AA, AVOID OLD RELATIONSHIPS/CONNECTIONS TO DRUGS, AND ENGAGE IN POSITIVE ACTIVITIES LIKE EXERCISE OR DAY PROGRAMS, PATIENT VERBALIZED UNDERSTANDING, WILL NEED ONGOING REINFORCEMENT.</paragraph> Encounters Start Date/Time End Date/Time Encounter Type Admission Type Attending [facility] Care Department Encounter ID Discharge Date Discharge Status Discharge Condition Discharge Reason Percent Goals Met 2022 00:00:00 2024-12-23 00:00:00 Outpatient [facility] [id number] [phone]
== END 2024-11-09 14:05 | disposition home or self-care (01) ==
LOC: HO.LABR 14:04
PROVIDERS: PCP Family Medicine; Visit Provider Psychiatry & Neurology Psychiatry
DX: Z79.899 Other long term (current) drug therapy (principal)
CPT/HCPCS: 36415; 85025

== ENCOUNTER 2024-12-08 11:19 | Outpatient (REF) | payer MEDICARE, SELFPAY ==
[2024-12-08 11:32] LABS: MANUAL DIFF FLAG NO
[2024-12-08 11:55] LABS: Basophils Absolute Auto 0.1 X10*3/uL (0.0-0.2); Basophils Percent Auto 0.7 % (0-2); Eosinophils Absolute Auto 0.2 X10*3/uL (0.0-0.4); Eosinophils Percent Auto 1.8 % (0-4); Hematocrit 46.2 % (42.0-52.0); Hemoglobin 16.3 g/dl (14.0-18.0); Imm Gran Abs Auto 0.06 X10*3/uL (0.00-0.03); Imm Gran Pct Auto 0.7 % (0.0-0.4); Lymphocytes Absolute Auto 2.8 X10*3/uL (1.2-4.9); Lymphocytes Percent Auto 32.7 % (20-40); Mean Corpuscular HGB Conc 35.3 g/dl (31.0-36.0); Mean Corpuscular Hemoglobin 29.2 pg (27.0-33.0); Mean Corpuscular Volume 82.8 fL (80.0-98.0); Mean Platelet Volume 10.3 fL (9.4-12.4); Monocytes Absolute Auto 0.6 X10*3/uL (0.1-1.2); Monocytes Percent Auto 7.1 % (2-11); Neutrophils Absolute Auto 4.9 x10*3/uL (2.0-8.3); Platelet Count 349 X10*3/uL (160-400); Red Blood Count 5.58 X10*6/uL (4.60-5.80); Red Cell Distribution Width 12.5 % (11.0-16.0); White Blood Count 8.5 X10*3/uL (4.8-10.8)
--- OUTSIDE RECORDS SUMMARY | 2024-12-08 12:21 | XMS_ITS | Clinical Summary ---
Author Organization [employer] Address [address] [facility] 7t [place] [address] Care Team Providers Care Deputy Clerk Of Superior Court Name Role Phone Rand Stover MD Primary Care Provider [phone] Allergies No known active allergies Medications benztropine (Cogentin) 0.5 MG tablet Take 0.5 mg by mouth at bedtime. 3 Active cloZAPine (Clozaril) 100 MG tablet TAKE 3 + 1/2 TABLETS BY MOUTH EVERY DAY AT BEDTIME 3 Active omeprazole OTC (PriLOSEC OTC) 20 MG EC tabletIndicatio ns:Bilious vomiting with nausea Take 1 tablet (20 mg) by mouth before breakfast. Do not crush, chew, or split. 30 tablet 11 3 Active Neomycin-Polymy samson-HC 1 % solution Administer 3 drops into affected ear(s) 4 times daily. 10 mL 4 Active albuterol 108 (90 Base) MCG/ACT inhaler Inhale 2 puffs every 4 (four) hours if needed for wheezing or shortness of breath. 18 g 1 4 Active fluticasone furoate (Arnuity Ellipta) 100 MCG/ACT inhaler Inhale 1 puff Once per day. Rinse mouth with water after use to reduce aftertaste and incidence of candidiasis. Do not swallow. 1 each 11 4 08/04/20 25 Active docusate sodium (Colace) 100 MG capsule 4 Active Active Problems Problem Noted Date Diagnosed Date Tobacco use 08/04/2024 Assessment & Plan (08/14/2024 6:19 AM EDT): - continue working on smoking cessation Mood disorder 12/13/2023 Assessment & Plan (08/14/2024 6:21 AM EDT): - behavioral health service provider: [facility] - previously diagnosed with MDD and seems to be diagnosed with bipolar and/or schizoaffective disorder - currently prescribed clozapine and benztropine - continue current medications with caution due to it side effect of metabolic derangement and encouraged lifestyle modification effort - continue current treatment plan per behavioral health service provider - patient seems to have a great support from case workers and great therapeutic relationship with behavioral health service providers Assessment & Plan (12/13/2023 6:20 AM EST): - behavioral health service provider: [facility] - previously diagnosed with MDD and seems to be diagnosed with bipolar and/or schizoaffective disorder - currently prescribed clozapine and benztropine - continue current medications with caution due to it side effect of metabolic derangement and encouraged lifestyle modification effort - continue current treatment plan per behavioral health service provider Polycythemia 12/13/2023 Assessment & Plan (08/14/2024 6:17 AM EDT): - likely due to excessive smoking in the past - most recent CBC showed improvement - work on smoking cessation Assessment & Plan (12/13/2023 6:24 AM EST): - excessive smoking - work on smoking cessation - recheck Metabolic dysfunction-associ ated steatotic liver disease (MASLD) 12/13/2023 Assessment & Plan (08/14/2024 6:19 AM EDT): - possible medication side effect, use clozapine with caution. Clozapine seems to be effective for his psychiatric conditions. - avoid hepatotoxic substances / drugs - work on lifestyle modifications - Hep A immune - Hep B non-immune; will immunize at next visit - FIB-4 index < 1.45 - CT scan in February 2024 showed hepatic steatosis, otherwise unremarkable - evaluate with US Assessment & Plan (07/02/2024 6:53 PM EDT): - possible medication side effect (clozapine itself is not hepatotoxic, but it causes weight gain, hyperglycemia, and dyslipidemia) - avoid hepatotoxic substances / drugs - work on lifestyle modifications - Hep B non-immune; will immunize at next visit - FIB-4 index < 1.45 - CT scan in February 2024 showed hepatic steatosis, otherwise unremarkable - evaluate with US Assessment & Plan (12/13/2023 6:28 AM EST): - ?fatty liver or medication side effect (clozapine itself is not hepatotoxic, but it causes weight gain, hyperglycemia, and dyslipidemia) - avoid hepatotoxic substances / drugs - recheck lab and hepatitis lab - keep hepatitis immunizations up to date - work on lifestyle modifications Sinus tachycardia 09/17/2023 Assessment & Plan (08/14/2024 6:10 AM EDT): - ?albuterol use and/or tobacco use, and/or clozapine side effect - will evaluate with Holter monitor Assessment & Plan (12/13/2023 6:21 AM EST): - ?albuterol use and/or tobacco use - 2nd measurement was normal - consider Holter monitor Assessment & Plan (09/17/2023 2:03 PM EST): Pt's EKG shows sinus tachycardia HR 113, aompared to previous EKGs there are previous EKG with Sinus tachy as well Pt denies any sob, no chest pain Etiology ? Anxiety, thyroid dz ? Plan: TSH, CBC, BMP, [place] Allergic rhinitis 03/26/2017 09/11/2023 Schizoaffective disorder 03/26/2017 023 Assessment & Plan (08/14/2024 6:20 AM EDT): - behavioral health service provider: [facility] - currently prescribed clozapine and benztropine, which seems to be effective. Patient has not had a decompensation lately. - continue current medications with caution due to it side effect of metabolic derangement and encouraged lifestyle modification effort. - continue current treatment plan per behavioral health service provider Assessment & Plan (12/13/2023 6:20 AM EST): - behavioral health service provider: [facility] - currently prescribed clozapine and benztropine - continue current medications with caution due to it side effect of metabolic derangement and encouraged lifestyle modification effort - continue current treatment plan per behavioral health service provider Assessment & Plan (09/17/2023 2:05 PM EST): Pt with a Hx of multiple psych admissions Follows at [facility] with / Ankush Hartman He is on Cogentin 0.5 mg po at bedtime Clozaril 350 mg po at 5 PM Asthma 02/24/2015 09/11/2023 Assessment & Plan (08/14/2024 6:22 AM EDT): - using albuterol frequently - start fluticasone (Arnuity or Flovent) - continue albuterol HFA prn - work on smoking cessation Assessment & Plan (12/13/2023 6:22 AM EST): - continue albuterol HFA prn - work on smoking cessation - evaluate with PFT Assessment & Plan (09/17/2023 1:39 PM EST): No recent exacerbation per his report Uses Albuterol HFA prn. Recommended to continue to work on smoking cessation. Depressive disorder 02/24/2015 09/11/2023 Obesity 02/24/2015 09/11/2023 Assessment & Plan (08/14/2024 6:19 AM EDT): -lifestyle modification Assessment & Plan (12/13/2023 6:20 AM EST): -lifestyle modification Resolved Problems Problem Noted Date Diagnosed Date Resolved Date Bilious vomiting with nausea 09/17/2023 12/13/2023 Assessment & Plan (09/17/2023 2:09 PM EST): Pt with c/o intermittent nausea and vomiting. Pt reports regular use of marihuana Etiology ? Cyclical vomiting due to Marihuana use? VS. GERD Plan: Omeprazole 20 mg po daily Gastroenterology consult Homeless 03/01/2016 09/11/2023 08/14/2024 Encounters Date Type Department Care Team Description 10/16/2024 Telephone [facility] [address] [place] [address] Gretta Silverio MA november recall from Last 3 Months Immunizations Name Administration Dates Next Due DTaP 12/17/2006, 8,11/13/1994,02/21,1993,1993 HPV, Quadrivalent 09/27/2010 Hep A, Adult 03/10/2015 Hep A, ped/adol, 2 dose 09/27/2010 Hep B, Adolescent or Pediatric 1993,1992 Hep B, adult 05/26/2018 Hib ([facility]) 11/13/1994, 4,1993,07/19 IPV 03/30/1998, 4,1993,07/19 Influenza injectable quadriv alent preservative free 08/04/2021,11/26/2018,03/10/2015 MMR 03/30/1998,08/29/1994 Meningococcal MCV4P ACYW-135 04/14/2008 Meningococcal MPSV4 09/27/2010 Td (adult), 5 Lf tetanus tox oid, preservative free, adsorbed 04/10/2016 Tdap 03/10/2015 Varicella 04/14/2008,02/16/1999 Social History Tobacco Use Types Packs/Day Years Used Date Smoking Tobacco: Every Day Cigarettes Tobacco Cessation:Ready to Q uit: Not Asked; Counseling Given: Not Answered Depression Answer Date Recorded Patient Health Questionnaire-9 Score 10 09/17/2023 Patient Health Questionnaire-9 Score 10 09/17/2023 Last PHQ-9: Questionnaire Data Not on file 1 11/17/2022 Housing Stability Answer Date Recorded What is your housing situation today? I have marytaina tan 09/17/[address] you li ve. Do you have problems with any of the following? None of the above 09/17/2023 Food Insecurity Answer Date Recorded Within the past 12 months, y ou worried that your food would run out before you got money to buy more: Never True 09/17/2023 Within the past 12 months,th e food you bought just didn't last and you didn't have enough money to get more: Never True Transportation Answer Date Recorded In the past 12 months, has l ack of transportation kept you from medical appts, meetings, work or from getting things needed for daily living? No 09/17/2023 Utilities Answer Date Recorded In the past 12 months, has t he electric, gas, oil or water company threatened to shut off services in your home? No 09/17/2023 Depression Answer Date Recorded Patient Health Questionnaire-2 Score 2 09/17/2023 Sex and Gender Information Value Date Recorded Sex Assigned at Male 09/03/2022 10:19 AM EDT Legal Sex Male 10:19 AM EDT Gender Identity Male 09/03/2022 10:19 AM EDT Sexual Orientation Choose not to disclose 2021 10:19 AM EDT Last Filed Vital Signs Vital Sign Reading Time Taken Comments Blood Pressure 115/78 08/04/2024 3:04 PM EDT Pulse 114 08/04/2024 3:04 PM EDT Temperature 37.1 ??C (98.7 ??F) 08/04/2024 3:04 PM ED T Respiratory Rate 20 08/04/2024 3:04 PM EDT Oxygen Saturation 98% 08/04/2024 3:04 PM EDT Inhaled Oxygen Concentration - - Weight 98.7 kg (217 lb 9.6 oz) 08/04/2024 3:04 P M EDT Height 172.7 cm (5' 8 ) 12/03/2023 3:56 PM EST Body Mass Index 33.09 12/03/2023 3:56 PM EST Plan of Treatment Health Maintenance Due Date Last Done Comments Alcohol/Substance Use Screening 2005 Family Planning (PISQ) 2008 HPV Vaccines (2 - Male 3-dose series) 10/25/2010 09/27/2010 Pneumococcal Vaccine: Pediatrics (0 to 5 Years) and At-Risk Patients (6 to 49) Years) (1 of 2 - PCV) 2012 Depression Monitoring (PHQ-9) 03/17/2024 09/17/2023, 09/17/2023 COVID-19 Vaccine (2 - season) 2024 04/14/2021 Influenza Vaccine (#1) 2024 , 11/26/2018, 03/10/2015 Depression Screening 09/17/2024 09/17/2023, 09/17/20 SDOH Screening 09/17/2024 09/17/2023 Tobacco Screening 08/14/2025 08/14/2024 DTaP/Tdap/Td Vaccines (9 - Td or Tdap) 04/10/2026 04/10/2016, 03/10/2015, 12/17/2006, Additional history exists Lipid Panel 07/22/2029 07/22/2024 Zoster Vaccines (1 of 2) 2043 RSV Patients and Patients Aged 60 years or older (1 - 1-dose 75+ series) 2068 HIB Vaccines Completed 11/13/1994, 08/05, 1993, Additional history exists IPV Vaccines Completed 03/30/1998, 08/05, 1993, Additional history exists Meningococcal Vaccine Aged Out 09/27/2010, 008 No longer eligible based on patient's age to complete this topic Hepatitis A Vaccines Completed 03/10/2015, 09/27/20 10 Hepatitis B Vaccines Completed 05/26/2018, 1993, 1993, Additional history exists HIV Screening Completed 12/03/2023 Hepatitis C Screening Completed 12/03/2023 RSV under 20 months Aged Out No longe r eligible based on patient's age to complete this topic Rotavirus Vaccines Aged Out No longer eligible based on patient's age to complete this topic Procedures Procedure Name Priority Date/Time Associated Diagnosis Comments LIPID PANEL WITH REFLEX TO DIRECT LDL Routine 07/22/2024 12:00 AM EDT Metabolic dysfunction-associa genaro steatotic liver disease (MASLD) HEPATITIS C AB W/REFL TO HCV RNA, QN, PCR Routine 12/03/2023 4:49 PM EST Transaminitis HIV 1/2 ANTIGEN/ANTIBODY, FOURTH GENERATION W/RFL Routine 12/03/2023 4:49 PM EST Transaminitis from Last 3 Months or Most Recently Relevant to Health Maintenance Results * (ABNORMAL) Lipid Panel with Reflex to Direct LDL (07/22/2024 12:00 AM EDT) Triglycerides 498(H) <150 mg/dL [facility] Comment:Desirable Triglyceri de: less than 150 mg/dLBorderline High Triglyceride 150-199 mg/dLHigh Triglyceride: 200-499 mg/dLVery High Triglyceride: greater than or equal to 5OO mg/dL Cholesterol 191 <200 mg/dL [facility] Comment:Desirable Cholestero l: less than 200 mg/dLBorderline High Cholesterol: 200-239 mg/dLHigh Cholesterol: greater than 239 mg/dL LDL Cholesterol Calculated TNP <100 mg/dL [facility] Comment:Unable to calculate the LDL. The formula of Friedwald,Bonner, and Zamzam is only valid if the triglycerides areless than 400 mg/dl. HDL Cholesterol 32(L) >40 mg/dL [facility] Comment:Desirable HDL: great er than 40 mg/dL Note: This HDL assay may give artificially low results in patients with liver disease. Blood 07/22/2024 07/22/2024 Rand Stover MD LAB BLOOD ORDERABLES Final Resul t Performing Organization Address [facility]/ZIP Co de Phone Number [facility] [address] [place] [phone] * Hepatitis C Antibody with Reflex to HCV, RNA, Quantitative, Real-Time PCR (12/03/2023 4:49 PM EST) Hepatitis C Antibody Nonreactive Nonreactive [facility] Comment:Antibodies to HCV no t detected; does not exclude early acuteHCV infection. Blood Venous blood specimen / Unknown 12/03/2023 4:49 PM EST 12/03/2023 5:21 PM EST Rand Stover MD LAB BLOOD ORDERABLES Final Resul t Performing Organization Address City/[facility]/ZIP Co de Phone Number [facility] [address] [place] [phone] * HIV-1/2 Antigen and Antibodies, Fourth Generation, with Reflexes (12/03/2023 4:49 PM EST) HIV AB/AG Nonreactive Nonreactive [facility] Comment:HIV-1 p24 Ag and/or HIV-1/HIV-2 Ab not detected.A test result that is nonreactive does not exclude thepossibility of exposure to or infection with HIV-1 and/orHIV-2. Nonreactive results in this assay for individualswith prior exposure to HIV-1 and/or HIV-2 may be due toantigen and antibody levels that are below the limit ofdetection of this assay.The [employer] HIV Ag/Ab Combo assay result andsupplemental assay results should be interpreted inconjunction with the patient's clinical presentation,history and other laboratory results. If the results areinconsistent with clinical evidence, additional testing issuggested to confirm the result. Blood Venous blood specimen / Unknown 12/03/2023 4:49 PM EST 12/03/2023 5:21 PM EST us Rand Stover MD LAB BLOOD ORDERABLES Final Resul t [facility] [address] [place] [address] [phone] from Last 3 Months or Most Recently Relevant to Health Maintenance Insurance [facility] Care Teams Deputy Clerk Of Superior Court Relationship Specialty Start Date End Date Rand Stover MD [address] [place] [phone] PCP - General Family Medicine 11/04/18
--- OUTSIDE RECORDS SUMMARY | 2024-12-08 12:21 | XMS_ITS | Encounter Summary ---
Author Organization [email or web address] Address [address] [facility] 7[address] [place] [address] Care Team Providers Care Butcher'S Assistant Name Role Phone Rand Stover MD Primary Care Provider [phone] Reason for Visit * Reason Onset Date Comments Appointment Request 08/21/2023 Encounter Details Date Type Department Care Team ([facility] Contact Info) Description 08/21/2023 Telephone [facility] [address] [place], [place] [phone] Rand Stover MD [address] [place], [place] [phone] Appointment Request Social History Tobacco Use Types Packs/Day Years Used Date Smoking Tobacco: Never Assessed Depression Answer Date Recorded Patient Health Questionnaire-9 Score 10 09/17/2023 Patient Health Questionnaire-9 Score 10 09/17/2023 Last PHQ-9: Questionnaire Data Not on file 1 11/17/2022 Housing Stability Answer Date Recorded What is your housing situation today? I have mary tan 09/17/[address] you [...] not to disclose 2021 10:19 AM EDT documented as of this encounter Miscellaneous Notes * Telephone Encounter - Iona Silverio - 08/27/2023 10:12 AM EDT Tc alfredo posey with [facility] calling in regards to message above. Please contact rosi at [phone] * Telephone Encounter - Duc Read - 08/21/2023 1:42 PM EDT Tc from Rosi [facility] RN requesting a PE appt , Power Electronics Engineer attempted to schedule however zero availability , States would like pt to be scheduled with a different provider if possible. Please contact at [phone] documented in this encounter Plan of Treatment Not on file documented as of this encounter Visit Diagnoses Not on filedocumented in this encounter Care Teams Butcher'S Assistant Relationship Specialty Start Date End Date Rand Stover MD [address] [place] [phone] PCP - General Family Medicine 11/04/18 documented as of this encounter
--- OUTSIDE RECORDS SUMMARY | 2024-12-08 12:21 | XMS_ITS | Encounter Summary ---
Author Organization [employer] Address [address] [facility] 7t [place] [address] Care Team Providers Care Fence Installer Name Role Phone Rand Stover MD Primary Care Provider [phone] Encounter Details Date Type Department Care Team (Late st Contact Info) Description 03/27/2023 Abstract [facility] MEDICINE [address] [place] [address] Rand Stover MD [address] [place], [place] [phone] Social History Tobacco Use Types Packs/Day Years Used Date Smoking Tobacco: Never Assessed Sex and Gender Information Value Date Recorded Sex Assigned at Male 09/03/2022 10:19 AM EDT Legal Sex Male 10:19 AM EDT Gender Identity Male 09/03/2022 10:19 AM EDT Sexual Orientation Choose not to disclose 2021 10:19 AM EDT documented as of this encounter Plan of Treatment Not on file documented as of this encounter Visit Diagnoses Not on filedocumented in this encounter Care Teams Fence Installer Relationship Specialty Start Date End Date Rand Stover MD [address] [place] [address] PCP - General Family Medicine 11/04/18 documented as of this encounter
--- OUTSIDE RECORDS SUMMARY | 2024-12-08 12:21 | XMS_ITS | Encounter Summary ---
Author Organization [employer] Address [address] [facility] [address]t [place] [address] Care Team Providers Care Pressing Department Supervisor Name Role Phone Rand Stover MD Primary Care Provider [phone] Reason for Visit * Reason Onset Date Comments Paperwork/Forms 05/18/2024 Encounter Details Date Type Department Care Team ([facility] Contact Info) Description 05/18/2024 Telephone [facility] MEDICINE [address] [place], [place] [phone] Rand Stover MD [address] [place], [place] [phone] Paperwork/Forms Social History Tobacco Use Types Packs/Day Years Used Date Smoking Tobacco: Every Day Cigarettes Depression Answer Date Recorded Patient Health Questionnaire-9 [...] encounter Miscellaneous Notes * Telephone Encounter - Heladio Canchola - 05/18/2024 8:43 AM EDT Tc from patient requesting the status for the HOT KETTLE TENDER services paperwork patient stated that was faxed to the provider about 3 weeks ago documented in this encounter Plan of Treatment Not on file documented as of this encounter Visit Diagnoses Not on filedocumented in this encounter Additional Health Concerns Assessment Noted Time PHQ-9 Depression Total Score: 10 023 1:52 PM EST documented as of this encounter Care Teams Pressing Department Supervisor Relationship Specialty Start Date End Date Rand Stover MD [address] [place] [address] PCP - General Family Medicine 11/04/18 documented as of this encounter
--- OUTSIDE RECORDS SUMMARY | 2024-12-08 12:22 | XMS_ITS | Encounter Summary ---
Author Organization [employer] Address [address] [facility] 7t [place] [address] Care Team Providers Care Nurse Infection Control Name Role Phone Rand Stover MD Primary Care Provider [phone] Encounter Details Date Type Department Care Team (Late st Contact Info) Description 12/13/2022 Abstract [facility] MEDICINE [address] [place] [address] Rand Stover MD [address] [place], [place] [phone] Social History Tobacco Use Types Packs/Day Years [...] on filedocumented in this encounter Care Teams Nurse Infection Control Relationship Specialty Start Date End Date Rand Stover MD [address] [place] [address] PCP - General Family Medicine 11/04/18 documented as of this encounter
--- OUTSIDE RECORDS SUMMARY | 2024-12-08 12:22 | XMS_ITS | Encounter Summary ---
Author Organization [employer] Address [address] [place] [address] [address] [place] [address] Care Team Providers Care Rug Backing Stenciler Name Role Phone Rand Stover MD Primary Care Provider [phone] Reason for Referral * Imaging (Routine) - Closed Specialty Diagnoses / Procedures Referred By Claudia torres Referred To Contact Radiology Diagnoses Metabolic dysfunction-associated steatotic liver disease (MASLD) Procedures US Abdomen Comp w elastography Rand Stover MD [address] [place] [address] Phone: tel: fax: [address] Phone: tel: fax: Referral ID Status Reason Start Date Expiration Date Visits Re quested Visits Authorized [id number] Closed 07/02/2024 07/02/2025 1 1 Encounter Details Date Type Department Care Team (Late st Contact Info) Description 07/02/2024 Orders Only [facility] [address] [place], [place] [phone] Rand Stover MD [address] [place] [address] Metabolic dysfunction-associated steatotic liver disease (MASLD) (Primary Dx); Immunity status testing Social History Tobacco Use Types Packs/Day Years [...] as of this encounter Miscellaneous Notes * Assessment & Plan Note - Rand Stover MD - 07/02/2024 6:48 PM EDTAssociated Problem(s): Metabolic dysfunction-associated steatotic liver disease (MASLD) - possible medication side effect (clozapine itself is not hepatotoxic, but it causes weight gain, hyperglycemia, and dyslipidemia) - avoid hepatotoxic substances / drugs - work on lifestyle modifications - Hep B non-immune; will immunize at next visit - FIB-4 index < 1.45 - CT scan in February 2024 showed hepatic steatosis, otherwise unremarkable - evaluate with US documented in this encounter Plan of Treatment Scheduled Orders Name Type Priority Associated Diagnoses Orde r Schedule CBC auto differential Lab Routine Metabolic Dysfunction-Associated Steatotic Liver Disease (Masld) Expected: 07/02/2024 (Approximate), Expires: 07/02/2025 US Abdomen Comp w elastography Imaging Routine Metabolic dysfunction-associated steatotic liver disease (MASLD) Expected: 07/02/2024, Expires: 07/02/2025 documented as of this encounter Procedures Procedure Name Priority Date/Time Associated Diagnosis Comments LIPID PANEL WITH REFLEX TO DIRECT LDL Routine 07/22/2024 12:00 AM EDT Metabolic dysfunction-associ ated steatotic liver disease (MASLD) HEPATITIS A ANTIBODY, TOTAL Routine 07/22/2024 12:00 AM EDT Immunity status testing COMPREHENSIVE METABOLIC PANEL Routine 07/22/2024 12:00 AM EDT Metabolic dysfunction-associ ated steatotic liver disease (MASLD) documented in this encounter Results * Hepatitis A Antibody, Total (07/22/2024 12:00 AM EDT) Hepatitis A Antibody IgG REACTIVE Nonreactive [facility] Comment:The presence of IgG anti-HAV implies past HAV infection(recent or distant) or vaccination against HAV. Blood Venous blood specimen / Unknown 07/22/2024 07/22/2024 us Rand Stover MD LAB BLOOD ORDERABLES Final Resul t [facility] [address] [place] [phone] * (ABNORMAL) Lipid Panel with Reflex to Direct LDL (07/22/2024 12:00 AM EDT) Triglycerides 498(H) <150 mg/dL [facility] Comment:Desirable Triglyceri de: less than 150 mg/dLBorderline High Triglyceride 150-199 mg/dLHigh Triglyceride: 200-499 mg/dLVery High Triglyceride: greater than or equal to 5OO mg/dL Cholesterol 191 <200 mg/dL [facility] Comment:Desirable Cholestero l: less than 200 mg/dLBorderline High Cholesterol: 200-239 mg/dLHigh Cholesterol: greater than 239 mg/dL LDL Cholesterol Calculated TNP <100 mg/dL [facility] Comment:Unable to calculate the LDL. The formula of Friedwald,Bonner, and Zamzam is only valid if the triglycerides areless than 400 mg/dl. HDL Cholesterol 32(L) >40 mg/dL [facility] Comment:Desirable HDL: great er than 40 mg/dL Note: This HDL assay may give artificially low results in patients with liver disease. Blood 07/22/2024 07/22/2024 us Rand Stover MD LAB BLOOD ORDERABLES Final Resul t [facility] [address] [place] [phone] * (ABNORMAL) Comprehensive Metabolic Panel (07/22/2024 12:00 AM EDT) Sodium 139 135 - 145 mmol/L [facility] Potassium 3.7 3.3 - 5.1 mmol/L [facility] Comment:Slight Hemolysis Chloride 108 96 - 108 mmol/L [facility] Carbon Dioxide 21(L) 22 - 29 mmol/L [facility] Anion Gap 14 12 - 20 [facility] Urea Nitrogen (BUN) 8(L) 9 - 16 mg/dL [facility] Creatinine, Serum 0.74 0.5 - 1.4 mg/dL [facility] Estimated Glomerular Filt Rate >60 [facility] Comment:NOTE: For -Am erican individuals, multiply the result by 1.210.Chronic Kidney Disease: Estimated GFR < 60 mL/min/1.49a2Mkndss Kidney Disease: Estimated GFR < 15 mL/min/1.73m2 Glucose 125(H) 60 - 115 mg/dL [facility] Calcium 9.6 8.4 - 10.2 mg/dL [facility] Bilirubin, Total 0.4 0.0 - 1.0 mg/dL [facility] Aspartate Amino Transferase 34 5 - 37 U/L [facility] Comment:Slight Hemolysis Alanine Aminotransferase 56(H) 0 - 40 U/L [facility] Total Protein 7.8 6.5 - 8.0 g/dL [facility] Albumin Level 4.4 3.5 - 5.0 g/dL [facility] Alkaline Phosphatase 61 39 - 117 U/L [facility] Blood Venous blood specimen / Unknown 07/22/2024 07/22/2024 us Rand Stover MD LAB BLOOD ORDERABLES Final Resul t [facility] [address] [place] [phone] documented in this encounter Visit Diagnoses Diagnosis Metabolic dysfunction-associated steatotic liver disease (MASLD)- Primary Immunity status testing Antibody response examination documented in this encounter Additional Health Concerns Assessment Noted Time PHQ-9 Depression Total Score: 10 023 1:52 PM EST documented as of this encounter Care Teams Rug Backing Stenciler Relationship Specialty Start Date End Date Rand Stover MD [address] [place] [phone] PCP - General Family Medicine 11/04/18 documented as of this encounter
--- OUTSIDE RECORDS SUMMARY | 2024-12-08 12:22 | XMS_ITS | Encounter Summary ---
Author Organization [employer] Address [address] [facility] [address] [place] [address] Care Team Providers Care Superintendent Electric Power Name Role Phone Rand Stover MD Primary Care Provider [phone] Reason for Visit * Reason Onset Date Comments Appointment Request 12/16/2023 Encounter Details Date Type Department Care Team ([facility] Contact Info) Description 12/16/2023 Telephone [facility] [address] [place] [address] [phone] Rand Stover MD [address] [place], [place] [phone] Appointment Request Social History Tobacco Use Types [...] encounter Miscellaneous Notes * Telephone Encounter - Ricodre Jacek - 12/16/2023 2:14 PM EST Tc from pt requesting to r/s f/u appt scheduled for 12/17/23, Data Entry Operator attempted to r/s for january however declined due to needing appt within 2 weeks per PCP. Please contact at [phone] documented in this encounter Plan of Treatment Not on file documented as of this encounter Visit Diagnoses Not on filedocumented in this encounter Additional Health Concerns Assessment Noted Time PHQ-9 Depression Total Score: 10 023 1:52 PM EST documented as of this encounter Care Teams Superintendent Electric Power Relationship Specialty Start Date End Date Rand Stover MD [address] [place] [phone] PCP - General Family Medicine 11/04/18 documented as of this encounter
== END 2024-12-08 11:20 | disposition home or self-care (01) ==
LOC: HO.LAB 11:19
PROVIDERS: PCP Family Medicine; Visit Provider Psychiatry & Neurology Psychiatry
DX: Z79.899 Other long term (current) drug therapy (principal)
CPT/HCPCS: 36415; 85025

== ENCOUNTER 2025-01-04 15:05 | Outpatient (REF) | payer MEDICARE, SELFPAY ==
[2025-01-04 15:20] LABS: MANUAL DIFF FLAG NO
[2025-01-04 15:46] LABS: Basophils Absolute Auto 0.1 X10*3/uL (0.0-0.2); Basophils Percent Auto 0.7 % (0-2); Eosinophils Absolute Auto 0.1 X10*3/uL (0.0-0.4); Eosinophils Percent Auto 1.4 % (0-4); Hematocrit 47.8 % (42.0-52.0); Hemoglobin 16.5 g/dl (14.0-18.0); Imm Gran Abs Auto 0.03 X10*3/uL (0.00-0.03); Imm Gran Pct Auto 0.4 % (0.0-0.4); Lymphocytes Absolute Auto 2.9 X10*3/uL (1.2-4.9); Lymphocytes Percent Auto 34.6 % (20-40); Mean Corpuscular HGB Conc 34.5 g/dl (31.0-36.0); Mean Corpuscular Hemoglobin 28.7 pg (27.0-33.0); Mean Corpuscular Volume 83.1 fL (80.0-98.0); Mean Platelet Volume 10.6 fL (9.4-12.4); Monocytes Absolute Auto 0.4 X10*3/uL (0.1-1.2); Neutrophils Absolute Auto 4.8 x10*3/uL (2.0-8.3); Neutrophils Percent Auto 57.9 % (45-73); Platelet Count 275 X10*3/uL (160-400); Red Blood Count 5.75 X10*6/uL (4.60-5.80); Red Cell Distribution Width 12.8 % (11.0-16.0); White Blood Count 8.4 X10*3/uL (4.8-10.8)
--- OUTSIDE RECORDS SUMMARY | 2025-01-04 17:57 | XMS_ITS | Clinical Summary ---
Author Organization [employer] Address [address] [facility] [address]t [place] [address] Care Team Providers Care Meat Wrapper Name Role Phone Rand Stover MD Primary Care Provider [phone] Allergies No known active allergies Medications benztropine [...] Hx of multiple psych admissions Follows at [facility] with / Ankush Hartman He is on [...] Encounters Date Type Department Care Team Description 01/04/2025 Orders Only GENERIC EXTERNAL DATA DEPARTMENT Provider, Generic External Data 10/16/2024 Telephone [facility] [address] [place] [phone] Gretta Silverio [place] november recall from Last 3 Months Immunizations Name Administration Dates Next Due DTaP 12/17/2006, 8,11/13/1994,02/21,1993,1993 HPV, Quadrivalent 09/27/2010 Hep A, Adult 03/10/2015 Hep A, ped/adol, 2 dose 09/27/2010 Hep B, Adolescent or Pediatric 1993,1992 Hep B, adult 05/26/2018 Hib ([facility]) 11/13/1994, 4,1993,07/19 IPV 03/30/1998, 4,1993,07/19 Influenza injectable [...] topic Hepatitis A Vaccines Completed 03/10/2015, 09/27/20 Hepatitis B Vaccines Completed 05/26/2018, 1993, 1993, Additional history exists HIV Screening Completed 12/03/2023 Hepatitis C Screening Completed 12/03/2023 RSV under 20 months Aged Out No longe r eligible based on patient's age to complete this topic Rotavirus Vaccines Aged Out No longer eligible based on patient's age to complete this topic Procedures Procedure Name Priority Date/Time Associated Diagnosis Comments CBC WITH AUTO DIFFERENTIAL Routine 01/04/2025 3:18 PM EST LIPID PANEL WITH REFLEX TO DIRECT LDL Routine 07/22/2024 12:00 AM EDT Metabolic dysfunction-associa genaro steatotic liver disease (MASLD) HEPATITIS C AB W/REFL TO HCV RNA, QN, PCR Routine 12/03/2023 4:49 PM EST Transaminitis HIV 1/2 ANTIGEN/ANTIBODY, FOURTH GENERATION W/RFL Routine 12/03/2023 4:49 PM EST Transaminitis from Last 3 Months or Most Recently Relevant to Health Maintenance Results * CBC auto differential (01/04/2025 3:18 PM EST) White Blood Count 8.4 4.8 - 10.8 X10*3/uL [facility] Red Blood Count 5.75 4.60 - 5.80 X10*6/uL [facility] Hemoglobin 16.5 14.0 - 18.0 g/dl [facility] Hematocrit 47.8 42.0 - 52.0 % [facility] Mean Corpuscular Volume 83.1 80.0 - 98.0 fL [facility] Mean Corpuscular Hemoglobin 28.7 27.0 - 33.0 pg [facility] Mean Corpuscular HGB Conc 34.5 31.0 - 36.0 g/dl [facility] Red Cell Distribution Width 12.8 11.0 - 16.0 % [facility] Platelet Count 275 160 - 400 X10*3/uL [facility] Mean Platelet Volume 10.6 9.4 - 12.4 fL [facility] Neutrophils Percent Auto 57.9 45 - 73 % [facility] Imm Gran Pct Auto 0.4 0.0 - 0.4 % [facility] Lymphocytes Percent Auto 34.6 20 - 40 % [facility] Monocytes Percent Auto 5.0 2 - 11 % [facility] Eosinophils Percent Auto 1.4 0 - 4 % [facility] Basophils Percent Auto 0.7 0 - 2 % [facility] NRBC Pct Auto 0.0 0.0 - 0.2 /100WBC [facility] Neutrophils Absolute Auto 4.8 2.0 - 8.3 x10*3/uL [facility] Imm Gran Abs Auto 0.03 0.00 - 0.03 X10*3/uL [facility] Lymphocytes Absolute Auto 2.9 1.2 - 4.9 X10*3/uL [facility] Monocytes Absolute Auto 0.4 0.1 - 1.2 X10*3/uL [facility] Eosinophils Absolute Auto 0.1 0.0 - 0.4 X10*3/uL [facility] Basophils Absolute Auto 0.1 0.0 - 0.2 X10*3/uL [facility] NRBC Abs Auto 0.000 0.0 - 0.012 X10*3/uL [facility] 01/04/2025 3:18 PM EST 01/04/2025 3:18 PM EST us Generic External Data Provider LAB BLOOD ORDERAB LES Final Result Performing Organization Address [facility] Co de Phone Number [facility] [address] [place] [phone] * (ABNORMAL) Lipid Panel with Reflex to Direct LDL (07/22/2024 12:00 AM EDT) Triglycerides 498(H) <150 mg/dL [facility] Comment:Desirable Triglyceri de: less than 150 mg/dLBorderline High Triglyceride 150-199 mg/dLHigh Triglyceride: 200-499 mg/dLVery High Triglyceride: greater than or equal to 5OO mg/dL Cholesterol 191 <200 mg/dL [facility] Comment:Desirable Cholestero l: less than 200 mg/dLBorderline High Cholesterol: 200-239 mg/dLHigh Cholesterol: greater than 239 mg/dL LDL Cholesterol Calculated TNP <100 mg/dL [facility] Comment:Unable to calculate the LDL. The formula of Friedwald,Bonner, and Zamzam is only valid if the triglycerides areless than 400 mg/dl. HDL Cholesterol 32(L) >40 mg/dL [facility] Comment:Desirable HDL: great er than 40 mg/dL Note: This HDL assay may give artificially low results in patients with liver disease. Blood 07/22/2024 07/22/2024 us Rand Stover MD LAB BLOOD ORDERABLES Final Resul t Performing Organization Address City/[facility]/ZIP Co de Phone Number [facility] [address] [place] [address] [phone] * Hepatitis C Antibody with Reflex to HCV, RNA, Quantitative, Real-Time PCR (12/03/2023 4:49 PM EST) Pathologist [facility] Hepatitis C Antibody Nonreactive Nonreactive [facility] Comment:Antibodies to HCV no t detected; does not exclude early acuteHCV infection. Blood Venous blood specimen / Unknown 12/03/2023 4:49 PM EST 12/03/2023 5:21 PM EST us Rand Stover MD LAB BLOOD ORDERABLES Final Resul t Performing Organization Address [facility]/ZIP Co de Phone Number [facility] [address] [place] [phone] * HIV-1/2 Antigen and Antibodies, Fourth Generation, with Reflexes (12/03/2023 4:49 PM EST) [facility] HIV AB/AG Nonreactive Nonreactive [facility] Comment:HIV-1 p24 Ag and/or HIV-1/HIV-2 Ab not detected.A test result that is nonreactive does not exclude thepossibility of exposure to or infection with HIV-1 and/orHIV-2. Nonreactive results in this assay for individualswith prior exposure to HIV-1 and/or HIV-2 may be due toantigen and antibody levels that are below the limit ofdetection of this assay.[employer] HIV Ag/Ab Combo assay result andsupplemental assay results should be interpreted inconjunction with the patient's clinical presentation,history and other laboratory results. If the results areinconsistent with clinical evidence, additional testing issuggested to confirm the result. Blood Venous blood specimen / Unknown 12/03/2023 4:49 PM EST 12/03/2023 5:21 PM EST us Rand Stover MD LAB BLOOD ORDERABLES Final Resul t Performing Organization Address City/[facility]/ZIP Co de Phone Number [facility] [address] [place] [phone] from Last 3 Months or Most Recently Relevant to Health Maintenance Insurance [facility] STANDARD * Guarantor: Morrison Colon, Nura Account Type Relation to Patient Date of Phone Billing Address Personal/Family Self [address] Care Teams Meat Wrapper Relationship Specialty Start Date End Date Rand Stover MD [address] [place] [phone] PCP - General Family Medicine 11/04/18
--- OUTSIDE RECORDS SUMMARY | 2025-01-04 17:58 | XMS_ITS | Clinical Summary ---
Demographics Address [address] [place] [address] Email Address VANESSA Preferred Language Tunisian Marital Status Unknown Episcopal Affiliation Unknown Race Unknown Ethnic Group Unknown Author Organization Unknown Care Team Providers Care Faith Healer Name Role Phone ADRIAN MENA, RAJENDRA Unavailable Unavailable MILAGROS MUNOZ, BROWN Unavailable Unavailable Payers Payer Name Policy Type Policy Number Effective Date Expira tion Date [facility] ADV [id number] [facility] ONE CARE MASS PROGRAM [id number] MEDICAID [facility] [id number] MEDICARE - [place] - [place] [id number] Problems Condition Name Condition Details Condition Category [...] 2020-11 00:00: 00 05-09 23:59 :00 No [id number] 1 mg BEDTIME 1 mg BEDTIME (route: oral) Med Classific ation: Central Nervous System Agents Depakote ER 500 mg tablet,exte nded release 2020-11 00:00: 00 09-01 23:59 :00 No [id number] 500 mg EVERY AM 500 mg EVERY AM (route: oral) Med Classific ation: Central Nervous System Agents Depakote ER 500 mg tablet,exte nded release 2020-11 00:00: 00 09-01 23:59 :00 No [id number] 500 mg BEDTIME 500 mg BEDTIME (route: oral) Med Classific ation: Central Nervous System Agents haloperidol decanoate 50 mg/mL intramuscul ar solution 2020-11 00:00: 05-09 23:59 :00 No [id number] 50 mg MONTHLY 50 mg MONTHLY (route: intramuscu lar) Med Classific ation: Central Nervous System Agents Depakote ER 500 mg tablet,exte nded release 2020-11 00:00: 00 05-09 23:59 :00 No [id number] 500 mg EVERY AM 500 mg EVERY AM (route: oral) Med Classific ation: Central Nervous System Agents albuterol sulfate HFA 90 mcg/actuati on aerosol inhaler 05-09 00:00: 00 Yes [id number] 2 puff DIRECTED 2 puff DIRECTED (route: inhalation ) Med Classific ation: Respirato ry Therapy Agents benztropine 0.5 mg tablet 05-09 00:00: 00 Yes [id number] 0.5 mg BEDTIME 0.5 mg BEDTIME (route: oral) Med Classific ation: Central Nervous System Agents clozapine 100 mg tablet 05-09 00:00: 00 Yes [id number] 100 mg DAILY 100 mg DAILY (route: oral) Med Classific ation: Central Nervous System Agents Vital Signs Vital Name Observation Time Observation Value Commen ts Temperature 2025-01-03 09:05:00.000 97.9 [degF] Temperature 2025-01-02 09:47:00.000 97.5 [degF] Temperature 2025-01-01 09:58:00.000 98 [degF] Temperature 2024-12-31 09:05:00.000 98.1 [degF] Temperature 2024-12-30 13:40:00.000 98.1 [degF] Temperature 2024-12-29 09:19:00.000 97.5 [degF] Temperature 2024-12-28 09:07:00.000 98.1 [degF] Temperature 2024-12-27 09:31:00.000 97.4 [degF] Temperature 2024-12-26 09:26:00.000 98.1 [degF] Temperature 2024-12-25 09:42:00.000 97.4 [degF] Temperature 2024-12-24 09:05:00.000 98.1 [degF] Plan of Treatment Planned Activity Planned [...] USE.] Future Scheduled Test SKILLED NU RSE TO PROVIDE INSTRUCTION TO PATIENT/CAREGIVER RELATED TO DISCHARGE PLANNING. [code = SKILLED NURSE TO PROVIDE INSTRUCTION TO PATIENT/CAREGIVER RELATED TO DISCHARGE PLANNING.] Future Scheduled Test SKILLED NU RSE WILL MAINTAIN SITUATIONAL AWARENESS FOR SAFETY AND WILL NOTIFY CLINICAL TELEGRAPHIC TYPEWRITER REPAIRER AND PHYSICIAN/PROVIDER WITH ANY CHANGE IN CONDITION. [code = SKILLED NURSE WILL MAINTAIN SITUATIONAL AWARENESS FOR SAFETY AND WILL NOTIFY CLINICAL TELEGRAPHIC TYPEWRITER REPAIRER AND PHYSICIAN/PROVIDER WITH ANY CHANGE IN CONDITION.] [...] MEDICATIONS DAILY AND PRE-POUR MEDICATIONS TILL NEXT ALF VISIT PER MEDICATION LIST. [code = SKILLED NURSE TO ADMINISTER MEDICATIONS DAILY AND PRE-POUR MEDICATIONS TILL NEXT ALF VISIT PER MEDICATION LIST.] Future Scheduled Test [...] BE HELD AND STORED IN LOCKBOX] Goal 2022-07-03 Patient Goal - T AKING MY MEDICATION EVERY DAY Goal 2022-09-01 Patient Goal - T AKING MY MEDICATION EVERY DAY Goal 2022-10-31 Patient Goal - T AKING MY MEDICATION EVERY DAY Goal 2022-12-31 Patient Goal - T AKING MY MEDICATION EVERY DAY Goal 2023-02-28 Patient Goal - T AKING [...] T AKING MY MEDICATION EVERY DAY Goal 2024-12-19 Patient Goal - T AKING MY MEDICATION EVERY DAY Goal Patient Goal - T AKING MY MEDICATION EVERY DAY Goal Provider Goal - A PLAN OF CARE WILL BE ESTABLISHED THAT MEETS PATIENT'S ALF NEEDS AND INCLUDES PATIENT GOAL FOR HOME HEALTH. Goal Provider Goal - PATIENT/CAREGIVER WILL VERBALIZE/DEMONSTRATE EFFECTIVE HOME SAFETY AND FALL PREVENTION STRATEGIES THROUGHOUT CERTIFICATION PERIOD. Goal Provider Goal - PATIENT WILL HAVE SUPPORT MEASURES ESTABLISHED TO PREVENT HOSPITALIZATION AND ED USE AND PATIENT/CAREGIVER WILL VERBALIZE/DEMONSTRATE METHODS TO REDUCE AVOIDABLE HOSPITALIZATION AND ED USE BY END OF EPISODE. Goal Provider Goal - PATIENT/CAREGIVER WILL VERBALIZE UNDERSTANDING OF DISCHARGE PLANNING INSTRUCTIONS BY DATE OF DISCHARGE. Goal Provider Goal - PATIENT WILL REMAIN [...] 2024 by BROWN LINARES RN]:</paragraph><paragraph>PATIENT EDUCATED ABOUT THE START OF A NEW YEAR BEING A GOOD TIME TO REFLECT ON THE PAST YEAR AND SET SOME NEW GOALS FOR YOURSELF GOING FORWARD INTO THE NEW YEAR, PATIENT VERBALIZED UNDERSTANDING.</paragraph> <paragraph>[Visit Date: 2024 by BROWN LINARES RN]:</paragraph><paragraph>PATIENT EDUCATED ABOUT S/S OF SHORTNESS OF BREATH INCLUDING DIZZINESS, FATIGUE, COUGH OR ANXIOUSNESS, IF FEELING THOSE S/S SIT, RELAX AND TAKE SLOW/DEEP BREATHS, CALL 911 FOR HELP IF FEELINGS OF SHORTNESS OF BREATH PERSIST, PATIENT VERBALIZED UNDERSTANDING.</paragraph> <paragraph>[Visit Date: 2024 by BROWN LINARES RN]:</paragraph><paragraph>PATIENT EDUCATED ABOUT S/S OF SHORTNESS OF BREATH INCLUDING DIZZINESS, FATIGUE, COUGH OR ANXIOUSNESS, IF FEELING THOSE S/S SIT, RELAX AND TAKE SLOW/DEEP BREATHS, CALL 911 FOR HELP IF FEELINGS OF SHORTNESS OF BREATH PERSIST, PATIENT VERBALIZED UNDERSTANDING.</paragraph> <paragraph>[Visit Date: 2024 by BROWN LINARES RN]:</paragraph><paragraph>PATIENT EDUCATED ABOUT COPING SKILLS INCLUDING ENGAGING IN A HOBBY, AVOIDING W THAT CAUSE DEPRESSION/ANXIETY, AND TALKING TO A PROFESSIONAL/TRUSTED FRIENDS/FAMILY ABOUT FEELINGS, PATIENT VERBALIZED UNDERSTANDING.</paragraph> <paragraph>[Visit Date: 2024 by BROWN LINARES RN]:</paragraph><paragraph>PATIENT EDUCATED ABOUT A WELL BALANCED DIET INCLUDING FRESH FRUITS/VEGETABLES, WHOLE GRAINS, AND LIMITING FRIED/SUGARY FOODS, A BALANCED DIET PREVENTS OR TREATS OTHER DISEASE PROCESSES SUCH DIABETES OR HYPERTENSION, PATIENT VERBALIZED UNDERSTANDING.</paragraph> <paragraph>[Visit Date: 2024 by BROWN LINARES RN]:</paragraph><paragraph>PATIENT EDUCATED ABOUT NOT CONSUMING ALCOHOL WHILE ON MEDICATIONS IT CAN CAUSE ADVERSE REACTIONS, PATIENT VERBALIZED UNDERSTANDING.</paragraph> Encounters Start Date/Time End Date/Time Encounter Type Admission Type Attending [facility] Care [facility] Care Department Encounter ID Discharge Date Discharge Status Discharge Condition Discharge Reason Percent Goals Met 2022 00:00:00 2025-02-21 00:00:00 Outpatient LMRTBROWN GUO [facility] [id number] 8.70
--- OUTSIDE RECORDS SUMMARY | 2025-01-04 17:58 | XMS_ITS ---
Author Name MS. Nell Ugarte APRN Address [address] [place] [address] Phone [phone] [facility] Care Team Providers Care Professor Of Geology Name Role Phone Lola Ugarte Unavailable [phone] Reason for Referral Not Available Allergies, adverse reactions, alerts No known allergies History of medication use Medication Class Instructions Start Date End Date Jtsjkeba-Inxfewgio-YV 1 % Solution INSTILL 3 DROPS INTO THE AFFECTED EAR(S) FOUR TIMES DAILY 2023-12-03 No Data Available Ventolin HFA 108 (90 Base) MCG/ACT Aerosol Solution Inhalation 2 PUFFS EVERY 4H prn COUGH, CONGESTION, SHORTNESS OF BREATH, WHEEZING 2023-12-03 No Data Available cloZAPine 100 mg Tab TAKE 3 1/2 TABLETS BY MOUTH AT BEDTIME 2023-04-24 No Data Available Advair HFA 230-21 MCG/ACT Aerosol Inhalation 2 inhalations every 12 hours 2024-02-04 No Data Marilou ilable Montelukast Sodium 10 mg Tab 1 tablet orally QD for allergies and to prevent bronchospasms 2024-02-04 No Data Available Montelukast Sodium 10 mg Tab TAKE 1 TABLET ORALLY DAILY FOR ALLERGIES AND TO PREVENT BRONCHOSPASMS 2024-02-04 No Data Available Montelukast Sodium 10 mg Tab TAKE 1 TABLET ORALLY DAILY FOR ALLERGIES AND TO PREVENT BRONCHOSPASMS 2024-02-04 No Data Available Docusate Sodium 100 mg Cap No Data Available 2024-01-04 9 No Data Available Benztropine Mesylate 0.5 mg Tab No Data Available 2024-06-02 No Data Available Problem List Problem Status Onset Date Resolved Date Paranoid schizophreniaSchizoaffective disorder Active 2024-02-04 N/A GERD (gastroesophageal reflux disease) Active 25-02-02 N/A Polycythemia Active 2024-02-04 N/A Transaminitis Active 2024-02-04 N/A Sinus tachycardia Active 2024-02-04 N/A Asthma Active 2024-02-04 N/A Hypercalcemia Active 2024-02-04 N/A Encounters Encounters Type Facility Date of Service Diagnosis/Co mplaint No Data Available [facility]2024 Schizoaffective disorder, unspecifiedGastro-esophageal reflux disease without esophagitisSecondary polycythemiaElevation of levels of liver transaminase levelsTachycardia, unspecifiedUnspecified asthma, uncomplicatedHypercalcemia No Data Available [facility] 02/04/2024 No Data Available [facility] [place] 02/04/2024 No Data Available [facility] [place] 02/04/2024 No Data Available [facility] ([place]) 02/04/2024 Vital Signs Date of Collection Vitals 2024-02-04 11:53:06 Height - 172.72 cmWe ight - 101.61 kgBody Mass Index (BMI) - 34.06 kg/m2BP Diastolic - 78.0 mm[Hg]BP Systolic - 121.0 mm[Hg] Social History Sex Male History of Procedures Procedures Service Procedure code Service date Servicing provider Phone# No Data Available [id number] 2024-02-04 No Data Available No Data Available BMI obtained (3008F) 3008F 2024-02-04 No Data Availab le No Data Available Medication Review by prescribing provider or pharmacist documented (1160F) 1160F 2024-02-04 No Data Available No Data Marilou ilable Medication List Documented (1159F) 1159F 2024-02-04 No Data Available No Data Marilou ilable Functional Status Assessed (1170F) 1170F 2024-02-04 No Data Available No Data Avail able Functional Status Functional Category Effective Dates Activities of Daily Livin2024-02-04 Bathing: Independent 2024-02-04 Ambulation/Walking: Independent Dressing: Independent 2024-02-04 Eating: Independent 2024-02-04 Toileting: Independent 2024-02-04 Transferring: Independent 2024-02-04 Mental Status Status Date A&Ox3 2024-02-04 Assessments Date of Service Assessments 2024-02-04 11:53:06 Paranoid schizophren iaSchizoaffective disorderGERD (gastroesophageal reflux disease)PolycythemiaTransaminitisSinus tachycardiaAsthmaHypercalcemia Plan of Care Date of Service Plans 2024-02-04 11:53:06 BMI obtained (3008F) SBP < 130 (3074F)DBP <80 (3078F)Phone (patient, parent, or guardian); 21-30 minutes of medical discussion (no modifier 95)Medication List Documented (9719F)Continue to see PCP. Follow-up with [facility] as needed for any acute or disease education needs that may arise 27/05.cloZAPine 100 mg Tab TAKE 3 1/2 TABLETS BY MOUTH AT BEDTIMEnoted prior orders for: benztropine 1 mg tablet Depakote ER 500 mg tablet, extended release pt only taking clozapine at this time- states was taking in the morning but it made him very tired- sleeps well and reports effectiveness taking at HS per medical record review: previously diagnosed with MDD and seems to be diagnosed with bipolar and/or schizoaffective disorder- currently prescribed clozapine and benztropine- continue current medications with caution due to it side effect of metabolic derangement and encouraged lifestyle modification effort- continue current treatment plan per behavioral health service providernot on any meds at this time- no GI c/o at this time per medical record review:omeprazole OTC (PriLOSEC OTC) 20 MG EC tabletindications: Bilious vomiting with nauseaper medical recordsno acute issues ongoing monitoring and management as as per PCPper medical recordsno acute issues ongoing monitoring and management as per PCPno report of any chest pain or palpitationsnot on any medsfollow up with PCP as instructed and prnpt reports having to go to ED d/t uncontrolled asthma- pt has order for Ventolin HFA 108 (90 Base) MCG/ACT Aerosol Solution INHALE 2 PUFFS BY MOUTH EVERY 4 HOURS NEEDED SHORTNESS OF BREATH OR FOR WHEEZING- will auth courtesy refill- will also add: 02/04/2024eRx New Advair HFA 230-21 MCG/ACT Aerosol Inhalation 2 inhalations every 12 hours #1 each [id number] New Montelukast Sodium 10 mg Tab 1 tablet orally QD for allergies and to prevent bronchospasms #30 tablet RFx1pt may need nebulizer treatments if not controlled with additional meds or if flares continue - pt's care team and PCP to continue to monitor and address plan of care12/03/23: Calcium 10.8 (H)ongoing monitoring and management of labs and plan of care per PCP Health Concerns Date Concern 2024-02-04 Visit completed via audio by telephone. Pt speaks Vietnamese however Language Line present operations scheduler and available for any clarification needs. Patient/Guardian agreed to visit via telehealth. Introductory visit with Vik to establish care. Today, patient has chief complaint of: establishing care.Reviewed Allergies, Medications, Active Medical conditions, past medical/surgical history, Social history. 2024-02-04 Most recent hospital stay(s) or ER visit(s) and precipitating factors: pt reports he goes to ED d/t his asthma- 2024-02-04 Open HEDIS Measure [facility]: completed
--- OUTSIDE RECORDS SUMMARY | 2025-01-04 17:58 | XMS_ITS | Encounter Summary ---
Author Organization [employer] Address [address] [facility] 7t [place] [address] Care Team Providers Care Director Of Global Sales Name Role Phone Rand Stover MD Primary Care Provider [phone] Encounter Details Date Type Department Care Team (Late st Contact Info) Description 12/13/2022 Abstract [facility] [address] [place] [address] Rand Stover MD [address] [place], [place] [phone] Social History Tobacco Use Types Packs/Day Years [...] on filedocumented in this encounter Care Teams Director Of Global Sales Relationship Specialty Start Date End Date Rand Stover MD [address] [place] [address] PCP - General Family Medicine 11/04/18 documented as of this encounter
--- OUTSIDE RECORDS SUMMARY | 2025-01-04 17:58 | XMS_ITS | Clinical Summary ---
Demographics Address [address] [place] [address] Email Address VANESSA Preferred Language [place] Timorese Marital Status Unknown Yazidi Affiliation Unknown Race Unknown Ethnic Group Unknown Author Organization Unknown Care Team Providers Care Contact Lens Manufacturer Name Role Phone ADRIAN MENA, RAJENDRA Unavailable Unavailable MILAGROS MUNOZ, BROWN Unavailable Unavailable Payers Payer Name Policy Type Policy Number Effective Date Expira tion Date [facility] ADV [id number] [facility]GRAM [id number] MEDICAID [facility] [id number] MEDICARE - NGS CT/[place] - PD [id number] Problems Condition Name Condition Details Condition Category [...] 2020-11 00:00: 00 05-09 23:59 :00 No [id number] 1 mg BEDTIME 1 mg BEDTIME (route: oral) Med Classific ation: Central Nervous System Agents Depakote ER 500 mg tablet,exte nded release 2020-11 00:00: 00 09-01 23:59 :00 No [id number] 500 mg EVERY AM 500 mg EVERY AM (route: oral) Med Classific ation: Central Nervous System Agents Depakote ER 500 mg tablet,exte nded release 2020-11 00:00: 00 09-01 23:59 :00 No [id number] 500 mg BEDTIME 500 mg BEDTIME (route: oral) Med Classific ation: Central Nervous System Agents haloperidol decanoate 50 mg/mL intramuscul ar solution 2020-11 00:00: 05-09 23:59 :00 No [id number] 50 mg MONTHLY 50 mg MONTHLY (route: intramuscu lar) Med Classific ation: Central Nervous System Agents Depakote ER 500 mg tablet,exte nded release 2020-11 00:00: 00 05-09 23:59 :00 No [id number] 500 mg EVERY AM 500 mg EVERY AM (route: oral) Med Classific ation: Central Nervous System Agents albuterol sulfate HFA 90 mcg/actuati on aerosol inhaler 05-09 00:00: 00 Yes [id number] 2 puff DIRECTED 2 puff DIRECTED (route: inhalation ) Med Classific ation: Respirato ry Therapy Agents benztropine 0.5 mg tablet 05-09 00:00: 00 Yes [id number] 0.5 mg BEDTIME 0.5 mg BEDTIME (route: oral) Med Classific ation: Central Nervous System Agents clozapine 100 mg tablet 05-09 00:00: 00 Yes [id number] 100 mg DAILY 100 mg DAILY (route: [...] AWARENESS FOR SAFETY AND WILL NOTIFY CLINICAL INTEGRITY CONSULTANT AND PHYSICIAN/PROVIDER WITH ANY CHANGE IN CONDITION. [code = SKILLED NURSE WILL MAINTAIN SITUATIONAL AWARENESS FOR SAFETY AND WILL NOTIFY CLINICAL INTEGRITY CONSULTANT AND PHYSICIAN/PROVIDER WITH ANY CHANGE IN CONDITION.] [...] MEDICATIONS DAILY AND PRE-POUR MEDICATIONS TILL NEXT JAIL VISIT PER MEDICATION LIST. [code = SKILLED NURSE TO ADMINISTER MEDICATIONS DAILY AND PRE-POUR MEDICATIONS TILL NEXT JAIL VISIT PER MEDICATION LIST.] Future Scheduled Test [...] CARE WILL BE ESTABLISHED THAT MEETS PATIENT'S JAIL NEEDS AND INCLUDES PATIENT GOAL FOR HOME [...] PATIENT VERBALIZED UNDERSTANDING.</paragraph> <paragraph>[Visit Date: 2024 by BRONW LINARES RN]:</paragraph><paragraph>PATIENT EDUCATED ABOUT A WELL BALANCED [...] End Date/Time Encounter Type Admission Type Attending [facility] Care [facility] Care Department Encounter ID Discharge Date Discharge Status Discharge Condition Discharge Reason Percent Goals Met 2022 00:00:00 2025-02-21 00:00:00 Outpatient LMRTBROWN [facility] [id number] 8.70
--- OUTSIDE RECORDS SUMMARY | 2025-01-04 17:58 | XMS_ITS | Encounter Summary ---
Author Organization [employer] Address [address] [facility] 7t [place] [address] Care Team Providers Care Supervisor Char House Name Role Phone Rand Stover MD Primary Care Provider [phone] Encounter Details Date Type Department Care Team (Late st Contact Info) Description 03/27/2023 Abstract [facility]INE [address] [place] [address] Rand Stover MD [address] [place], [place] [phone] Social History Tobacco Use Types Packs/Day Years [...] on filedocumented in this encounter Care Teams Supervisor Char House Relationship Specialty Start Date End Date Rand Stover MD [address] [place] [address] PCP - General Family Medicine 11/04/18 documented as of this encounter
--- OUTSIDE RECORDS SUMMARY | 2025-01-04 17:58 | XMS_ITS | Encounter Summary ---
Author Organization [employer] Address [address] [facility] 7t [place] [address] Care Team Providers Care Assistant City Attorney Name Role Phone Rand Stover MD Primary Care Provider [phone] Reason for Visit * Reason Onset Date Comments Paperwork/Forms 05/18/2024 Encounter Details Date Type Department Care Team ([facility] Contact Info) Description 05/18/2024 Telephone [facility] [address] [place], [place] [phone] Rand Stover MD [address] [place], [place] [phone] Paperwork/Forms Social History Tobacco Use Types Packs/Day [...] from patient requesting the status for the SENIOR VICE PRESIDENT & GENERAL COUNSEL services paperwork patient stated that was faxed to the provider about 3 weeks ago documented in this encounter Plan of Treatment Not on file documented as of this encounter Visit Diagnoses Not on filedocumented in this encounter Additional Health Concerns Assessment Noted Time PHQ-9 Depression Total Score: 10 023 1:52 PM EST documented as of this encounter Care Teams Assistant City Attorney Relationship Specialty Start Date End Date Rand Stover MD [address] [place] [address] PCP - General Family Medicine 11/04/18 documented as of this encounter
--- OUTSIDE RECORDS SUMMARY | 2025-01-04 17:58 | XMS_ITS | Encounter Summary ---
Author Organization [employer] Address [address] [facility] 7t [place] [address] Care Team Providers Care Stiff Neck Loader Name Role Phone Rand Stover MD Primary Care Provider [phone] Encounter Details Date Type Department Care Team ([facility] Contact Info) Description 01/04/2025 Orders Only GENERIC EXTERNAL DATA DEPARTMENT Provider, Generic External Data Social History Tobacco Use Types Packs/Day Years [...] on file documented as of this encounter Procedures Procedure Name Priority Date/Time Associated Diagnosis Comments CBC WITH AUTO DIFFERENTIAL Routine 01/04/2025 3:18 PM EST documented in this encounter Results * CBC auto differential (01/04/2025 3:18 PM EST) White Blood Count 8.4 4.8 - 10.8 X10*3/uL [facility] Red Blood Count 5.75 4.60 - 5.80 X10*6/uL [facility] Hemoglobin 16.5 14.0 - 18.0 g/dl [facility] Hematocrit 47.8 42.0 - 52.0 % [facility] Mean Corpuscular Volume 83.1 80.0 - 98.0 fL [facility] Mean Corpuscular Hemoglobin 28.7 27.0 - 33.0 pg [facility] Mean Corpuscular HGB Conc 34.5 31.0 - 36.0 g/dl [facility] Red Cell Distribution Width 12.8 11.0 - 16.0 % [facility] Platelet Count 275 160 - 400 X10*3/uL [facility] Mean Platelet Volume 10.6 9.4 - 12.4 fL [facility] Neutrophils Percent Auto 57.9 45 - 73 % [facility] Imm Gran Pct Auto 0.4 0.0 - 0.4 % [facility] Lymphocytes Percent Auto 34.6 20 - 40 % [facility] Monocytes Percent Auto 5.0 2 - 11 % [facility] Eosinophils Percent Auto 1.4 0 - 4 % [facility] Basophils Percent Auto 0.7 0 - 2 % [facility] NRBC Pct Auto 0.0 0.0 - 0.2 /100WBC [facility] Neutrophils Absolute Auto 4.8 2.0 - 8.3 x10*3/uL [facility] Imm Gran Abs Auto 0.03 0.00 - 0.03 X10*3/uL [facility] Lymphocytes Absolute Auto 2.9 1.2 - 4.9 X10*3/uL [facility] Monocytes Absolute Auto 0.4 0.1 - 1.2 X10*3/uL [facility] Eosinophils Absolute Auto 0.1 0.0 - 0.4 X10*3/uL [facility] Basophils Absolute Auto 0.1 0.0 - 0.2 X10*3/uL [facility] NRBC Abs Auto 0.000 0.0 - 0.012 X10*3/uL [facility] 01/04/2025 3:18 PM EST 01/04/2025 3:18 PM EST us Generic External Data Provider LAB BLOOD ORDERAB LES Final Result Performing Organization Address City/State/[facility] Co de Phone Number [facility] [address] [place] [phone] documented in this encounter Visit Diagnoses Not on filedocumented in this encounter Additional Health Concerns Assessment Noted Time PHQ-9 Depression Total Score: 10 09/17/ 023 1:52 PM EST documented as of this encounter Care Teams Stiff Neck Loader Relationship Specialty Start Date End Date Rand Stover MD [address] [place] [address] PCP - General Family Medicine 11/04/18 documented as of this encounter
--- OUTSIDE RECORDS SUMMARY | 2025-01-04 17:58 | XMS_ITS | Encounter Summary ---
Author Organization [employer] Address [address] [place] [address] 7t [place] [address] Care Team Providers Care Electrician Supervisor Substation Name Role Phone Rand Stover MD Primary Care Provider [phone] Reason for Referral * Imaging (Routine) - Closed Specialty Diagnoses / Procedures Referred By Claudia torres Referred To Contact Radiology Diagnoses Metabolic dysfunction-associated steatotic liver disease (MASLD) Procedures US Abdomen Comp w elastography Rand Stover MD [address] [place] [address] Phone: tel: fax: [address] Phone: tel: fax: Referral ID Status Reason Start Date Expiration Date Visits Re quested Visits Authorized [id number] Closed 07/02/2024 07/02/2025 1 1 Encounter Details Date Type Department Care Team (Late st Contact Info) Description 07/02/2024 Orders Only [facility]INE [address] [place], [place] [phone] Rand Stover MD [address] [place] [address] Metabolic dysfunction-associated steatotic liver disease [...] EDT) Hepatitis A Antibody IgG REACTIVE Nonreactive [facility] Comment:The presence of IgG anti-HAV implies past HAV infection(recent or distant) or vaccination against HAV. Blood Venous blood specimen / Unknown 07/22/2024 07/22/2024 us Rand Stover MD LAB BLOOD ORDERABLES Final Resul t [facility] [address] [place] [phone] * (ABNORMAL) Lipid Panel with Reflex to Direct LDL (07/22/2024 12:00 AM EDT) Triglycerides 498(H) <150 mg/dL [facility] Comment:Desirable Triglyceri de: less than 150 mg/dLBorderline High Triglyceride 150-199 mg/dLHigh Triglyceride: 200-499 mg/dLVery High Triglyceride: greater than or equal to 5OO mg/dL Cholesterol 191 <200 mg/dL [facility] Comment:Desirable Cholestero l: less than 200 mg/dLBorderline High Cholesterol: 200-239 mg/dLHigh Cholesterol: greater than 239 mg/dL LDL Cholesterol Calculated TNP <100 mg/dL [facility] Comment:Unable to calculate the LDL. The formula of Friedwald,Bonner, and Zamzam is only valid if the triglycerides areless than 400 mg/dl. HDL Cholesterol 32(L) >40 mg/dL [facility] Comment:Desirable HDL: great er than 40 mg/dL Note: This HDL assay may give artificially low results in patients with liver disease. Blood 07/22/2024 07/22/2024 us Rand Stover MD LAB BLOOD ORDERABLES Final Resul t [facility] [address] [place] [phone] * (ABNORMAL) Comprehensive Metabolic Panel (07/22/2024 12:00 AM EDT) Sodium 139 135 - 145 mmol/L [facility] Potassium 3.7 3.3 - 5.1 mmol/L [facility] Comment:Slight Hemolysis Chloride 108 96 - 108 mmol/L [facility] Carbon Dioxide 21(L) 22 - 29 mmol/L [facility] Anion Gap 14 12 - 20 [facility] Urea Nitrogen (BUN) 8(L) 9 - 16 mg/dL [facility] Creatinine, Serum 0.74 0.5 - 1.4 mg/dL [facility] Estimated Glomerular Filt Rate >60 [facility] Comment:NOTE: For -Am erican individuals, multiply the result by 1.210.Chronic Kidney Disease: Estimated GFR < 60 mL/min/1.64n3Lwxzgy Kidney Disease: Estimated GFR < 15 mL/min/1.73m2 Glucose 125(H) 60 - 115 mg/dL [facility] Calcium 9.6 8.4 - 10.2 mg/dL [facility] Bilirubin, Total 0.4 0.0 - 1.0 mg/dL [facility] Aspartate Amino Transferase 34 5 - 37 U/L [facility] Comment:Slight Hemolysis Alanine Aminotransferase 56(H) 0 - 40 U/L [facility] Total Protein 7.8 6.5 - 8.0 g/dL [facility] Albumin Level 4.4 3.5 - 5.0 g/dL [facility] Alkaline Phosphatase 61 39 - 117 U/L [facility] Blood Venous blood specimen / Unknown 07/22/2024 07/22/2024 us Rand Stover MD LAB BLOOD ORDERABLES Final Resul t [facility] [address] [place] [phone] documented in this encounter Visit Diagnoses Diagnosis Metabolic dysfunction-associated steatotic liver disease (MASLD)- Primary Immunity status testing Antibody response examination documented in this encounter Additional Health Concerns Assessment Noted Time PHQ-9 Depression Total Score: 10 023 1:52 PM EST documented as of this encounter Care Teams Electrician Supervisor Substation Relationship Specialty Start Date End Date Rand Stover MD [address] [place] [phone] PCP - General Family Medicine 11/04/18 documented as of this encounter
== END 2025-01-04 15:06 | disposition home or self-care (01) ==
LOC: HO.LAB 15:05
PROVIDERS: PCP Family Medicine; Visit Provider Psychiatry & Neurology Psychiatry
DX: Z79.899 Other long term (current) drug therapy (principal)
CPT/HCPCS: 36415; 85025

== ENCOUNTER 2025-02-09 16:19 | Outpatient (REF) | payer MEDICARE, SELFPAY ==
[2025-02-09 17:16] LABS: Basophils Absolute Auto 0.1 X10*3/uL (0.0-0.2); Basophils Percent Auto 0.6 % (0-2); Eosinophils Absolute Auto 0.2 X10*3/uL (0.0-0.4); Eosinophils Percent Auto 1.5 % (0-4); Hematocrit 49.5 % (42.0-52.0); Hemoglobin 17.5 g/dl (14.0-18.0); Imm Gran Abs Auto 0.04 X10*3/uL (0.00-0.03); Imm Gran Pct Auto 0.4 % (0.0-0.4); Lymphocytes Absolute Auto 4.6 X10*3/uL (1.2-4.9); Lymphocytes Percent Auto 40.1 % (20-40); MANUAL DIFF FLAG NO; Mean Corpuscular HGB Conc 35.4 g/dl (31.0-36.0); Mean Corpuscular Hemoglobin 29.3 pg (27.0-33.0); Mean Corpuscular Volume 82.9 fL (80.0-98.0); Mean Platelet Volume 10.6 fL (9.4-12.4); Monocytes Absolute Auto 0.8 X10*3/uL (0.1-1.2); Monocytes Percent Auto 7.2 % (2-11); Neutrophils Absolute Auto 5.7 x10*3/uL (2.0-8.3); Neutrophils Percent Auto 50.2 % (45-73); Platelet Count 317 X10*3/uL (160-400); Red Blood Count 5.97 X10*6/uL (4.60-5.80); Red Cell Distribution Width 12.7 % (11.0-16.0); White Blood Count 11.4 X10*3/uL (4.8-10.8)
--- OUTSIDE RECORDS SUMMARY | 2025-02-09 18:58 | XMS_ITS | Encounter Summary ---
Author Organization [employer] Address [address] [facility] 7t [place] [address] Care Team Providers Care Hollock Maker Name Role Phone Rand Stover MD Primary Care Provider [phone] Encounter Details Date Type Department Care Team (Late st Contact Info) Description 12/13/2022 Abstract [facility]INE [address] [place] [address] Rand Stover MD [address] [place], [place] [phone] Social History Tobacco Use Types Packs/Day Years [...] on filedocumented in this encounter Care Teams Hollock Maker Relationship Specialty Start Date End Date Rand Stover MD [address] [place], [place] [phone] PCP - General Family Medicine 11/04/18 documented as of this encounter
--- OUTSIDE RECORDS SUMMARY | 2025-02-09 18:58 | XMS_ITS | Clinical Summary ---
Demographics Address [address] [place] [address] Email Address VANESSA Preferred Language Tunisian Marital Status Unknown Jew Affiliation Unknown Race Unknown Ethnic Group Unknown Author Organization Unknown Care Team Providers Care Bed Control Specialist Name Role Phone ADRIAN MENA, RAJENDRA Unavailable Unavailable MILAGROS MUNOZ, BROWN Unavailable Unavailable Payers Payer Name Policy Type Policy Number Effective Date Expira tion Date [facility] ADV [id number] [facility] ONE [facility]ARE [facility] [id number] MEDICAID [facility] [id number] MEDICARE - NGS AR/MD - PD [id number] Problems Condition Name Condition Details Condition Category [...] 2020-11 00:00: 00 05-09 23:59 :00 No [id number] 1 mg BEDTIME 1 mg BEDTIME (route: oral) Med Classific ation: Central Nervous System Agents Depakote ER 500 mg tablet,exte nded release 2020-11 00:00: 00 09-01 23:59 :00 No [id number] 500 mg EVERY AM 500 mg EVERY AM (route: oral) Med Classific ation: Central Nervous System Agents Depakote ER 500 mg tablet,exte nded release 2020-11 00:00: 00 09-01 23:59 :00 No [id number] 500 mg BEDTIME 500 mg BEDTIME (route: oral) Med Classific ation: Central Nervous System Agents haloperidol decanoate 50 mg/mL intramuscul ar solution 2020-11 00:00: 05-09 23:59 :00 No [id number] 50 mg MONTHLY 50 mg MONTHLY (route: intramuscu lar) Med Classific ation: Central Nervous System Agents Depakote ER 500 mg tablet,exte nded release 2020-11 00:00: 00 05-09 23:59 :00 No [id number] 500 mg EVERY AM 500 mg EVERY AM (route: oral) Med Classific ation: Central Nervous System Agents albuterol sulfate HFA 90 mcg/actuati on aerosol inhaler 05-09 00:00: 00 Yes [id number] 2 puff DIRECTED 2 puff DIRECTED (route: inhalation ) Med Classific ation: Respirato ry Therapy Agents benztropine 0.5 mg tablet 05-09 00:00: 00 Yes [id number] 0.5 mg BEDTIME 0.5 mg BEDTIME (route: oral) Med Classific ation: Central Nervous System Agents clozapine 100 mg tablet 05-09 00:00: 00 Yes [id number] 100 mg DAILY 100 mg DAILY (route: oral) Med Classific ation: Central Nervous System Agents Vital Signs Vital Name Observation Time Observation Value Commen ts Temperature 2025-02-08 09:30:00.000 97.4 [degF] Temperature 2025-02-07 08:56:00.000 97.6 [degF] Temperature 2025-02-06 08:57:00.000 97.5 [degF] Temperature 2025-02-05 09:43:00.000 97.5 [degF] Temperature 2025-02-04 09:13:00.000 97.3 [degF] Temperature 2025-02-03 10:09:00.000 97.5 [degF] Temperature 2025-02-02 09:48:00.000 98.1 [degF] Temperature 2025-02-01 09:36:00.000 97.4 [degF] Temperature 2025-01-31 08:50:00.000 97.5 [degF] Temperature 2025-01-30 09:26:00.000 97.5 [degF] Temperature 2025-01-29 09:23:00.000 97.5 [degF] Temperature 2025-01-28 09:32:00.000 97.5 [degF] Temperature 2025-01-27 09:45:00.000 97.5 [degF] Temperature 2025-01-26 09:52:00.000 98.1 [degF] Temperature 2025-01-25 09:45:00.000 97.5 [degF] Temperature 2025-01-24 09:50:00.000 97.7 [degF] Temperature 2025-01-23 12:35:00.000 97.8 [degF] Temperature 2025-01-22 09:57:00.000 97.2 [degF] Temperature 2025-01-21 09:35:00.000 98 [degF] Temperature 2025-01-20 09:59:00.000 98 [degF] Temperature 2025-01-19 09:35:00.000 98 [degF] Temperature 2025-01-18 09:35:00.000 98.1 [degF] Temperature 2025-01-17 11:52:00.000 98.1 [degF] Temperature 2025-01-16 09:23:00.000 97.5 [degF] Temperature 2025-01-15 10:28:00.000 98 [degF] Temperature 2025-01-14 09:24:00.000 98.1 [degF] Temperature 2025-01-13 09:39:00.000 98 [degF] Temperature 2025-01-12 09:59:00.000 97.4 [degF] Temperature 2025-01-11 09:39:00.000 97.5 [degF] Temperature 2025-01-10 09:08:00.000 98 [degF] Temperature 2025-01-09 11:37:00.000 97.5 [degF] Temperature 2025-01-08 09:38:00.000 97.5 [degF] Temperature 2025-01-07 09:28:00.000 97.5 [degF] Temperature 2025-01-06 09:59:00.000 98 [degF] Temperature 2025-01-05 10:09:00.000 97.8 [degF] Temperature 2025-01-04 09:06:00.000 97.4 [degF] Temperature 2025-01-03 09:05:00.000 97.9 [degF] Temperature 2025-01-02 [...] AWARENESS FOR SAFETY AND WILL NOTIFY CLINICAL HOME HEALTH RN AND PHYSICIAN/PROVIDER WITH ANY CHANGE IN CONDITION. [code = SKILLED NURSE WILL MAINTAIN SITUATIONAL AWARENESS FOR SAFETY AND WILL NOTIFY CLINICAL HOME HEALTH RN AND PHYSICIAN/PROVIDER WITH ANY CHANGE IN CONDITION.] [...] MEDICATIONS DAILY AND PRE-POUR MEDICATIONS TILL NEXT FDC VISIT PER MEDICATION LIST. [code = SKILLED NURSE TO ADMINISTER MEDICATIONS DAILY AND PRE-POUR MEDICATIONS TILL NEXT FDC VISIT PER MEDICATION LIST.] Future Scheduled Test [...] CARE WILL BE ESTABLISHED THAT MEETS PATIENT'S FDC NEEDS AND INCLUDES PATIENT GOAL FOR HOME [...] by BROWN LINARES RN]:</paragraph><paragraph>PATIENT EDUCATED ABOUT THE IMPORTANCE OF USING SUN SCREEN WHILE OUTSIDE/IN THE SUN TO PREVENT THE INCREASED RISK FOR SKIN CANCER, PATIENT VERBALIZED UNDERSTANDING.</paragraph> <paragraph>[Visit Date: 2024 by BROWN LINARES RN]:</paragraph><paragraph>PATIENT EDUCATED ABOUT IMPORTANCE OF ROUTINE SCREENINGS SUCH MAMMOGRAMS, COLONOSCOPIES, BLOOD WORK, AND ANNUAL PHYSICALS TO HELP PROMOTE HEALTH AND EARLY DETECTION, PATIENT VERBALIZED UNDERSTANDING.</paragraph> <paragraph>[Visit Date: 2024 by BROWN LINARES RN]:</paragraph><paragraph>PATIENT EDUCATED ABOUT S/S OF SHORTNESS OF BREATH INCLUDING DIZZINESS, FATIGUE, COUGH OR ANXIOUSNESS, IF FEELING THOSE S/S SIT, RELAX AND TAKE SLOW/DEEP BREATHS, CALL 911 FOR HELP IF FEELINGS OF SHORTNESS OF BREATH PERSIST, PATIENT VERBALIZED UNDERSTANDING.</paragraph> <paragraph>[Visit Date: 2024 by BROWN LINARES RN]:</paragraph><paragraph>PATIENT EDUCATED ABOUT WAYS TO PREVENT CONSTIPATION INCLUDING ADEQUATE HYDRATION AND CONSUMING A HIGH FIBER DIET. FOODS HIGH IN FIBER INCLUDE FRUITS/VEGETABLES AND BEANS, PATIENT VERBALIZED UNDERSTANDING.</paragraph> <paragraph>[Visit Date: 2024 by BROWN LINARES RN]:</paragraph><paragraph>PATIENT EDUCATED ABOUT AVOIDING DRUGS/ALCOHOL, ATTEND ACCOUNTABILITY GROUPS LIKE AA, AVOID OLD RELATIONSHIPS/CONNECTIONS TO DRUGS, AND ENGAGE IN POSITIVE ACTIVITIES LIKE EXERCISE OR DAY PROGRAMS, PATIENT VERBALIZED UNDERSTANDING, WILL NEED ONGOING REINFORCEMENT.</paragraph> <paragraph>[Visit Date: 2024 by BROWN VANJAH RN]:</paragraph><paragraph>PATIENT EDUCATED ABOUT THE IMPORTANCE OF USING SUN SCREEN WHILE OUTSIDE/IN THE SUN TO PREVENT THE INCREASED RISK FOR SKIN CANCER, PATIENT VERBALIZED UNDERSTANDING.</paragraph> Encounters Start Date/Time End Date/Time Encounter Type Admission Type Attending [facility] Department Encounter ID Discharge Date Discharge Status Discharge Condition Discharge Reason Percent Goals Met 2022 00:00:00 2025-02-21 00:00:00 [facility] BROWN [facility] [id number] 21.74
--- OUTSIDE RECORDS SUMMARY | 2025-02-09 18:58 | XMS_ITS | Clinical Summary ---
Author Organization [employer] Address [address] [facility] [address] [place] [address] Care Team Providers Care Printing Engineer Name Role Phone Rand Stover MD Primary Care Provider [phone] Allergies No known active allergies Medications benztropine [...] Hx of multiple psych admissions Follows at [facility] with / Ankush Hartman He is on [...] EXTERNAL DATA DEPARTMENT Provider, Generic External Data from Last 3 Months Immunizations Name Administration Dates Next Due DTaP 12/17/2006, 8,11/13/1994,02/21,1993,1993 HPV, Quadrivalent 09/27/2010 Hep A, Adult 03/10/2015 Hep A, ped/adol, 2 dose 09/27/2010 Hep B, Adolescent or Pediatric 1993,1992 Hep B, adult 05/26/2018 Hib (HbOC) 11/13/1994, 4,1993,07/19 IPV 03/30/1998, 4,1993,07/19 Influenza injectable [...] 11/26/2018, 03/10/2015 Depression Screening 09/17/2024 09/17/2023, 09/17/20 23 SDOH Screening 09/17/2024 09/17/2023 Tobacco Screening 08/14/2025 [...] Diagnosis Comments CBC WITH AUTO DIFFERENTIAL Routine 02/09/2025 12:00 AM EDT Metabolic dysfunction-associa genaro steatotic liver disease (MASLD) CBC WITH AUTO DIFFERENTIAL Routine 01/04/2025 3:18 [...] Relevant to Health Maintenance Results * (ABNORMAL) CBC auto differential (02/09/2025 12:00 AM EDT) Only the most recent of2 resultswithin the time period is included. White Blood Count 11.4(H) 4.8 - 10.8 X10*3/uL [facility] Red Blood Count 5.97(H) 4.60 - 5.80 X10*6/uL [facility] Hemoglobin 17.5 14.0 - 18.0 g/dl [facility] Hematocrit 49.5 42.0 - 52.0 % [facility] Mean Corpuscular Volume 82.9 80.0 - 98.0 fL [facility] Mean Corpuscular Hemoglobin 29.3 27.0 - 33.0 pg [facility] Mean Corpuscular HGB Conc 35.4 31.0 - 36.0 g/dl [facility] Red Cell Distribution Width 12.7 11.0 - 16.0 % [facility] Platelet Count 317 160 - 400 X10*3/uL [facility] Mean Platelet Volume 10.6 9.4 - 12.4 fL [facility] Neutrophils Percent Auto 50.2 45 - 73 % [facility] Imm Gran Pct Auto 0.4 0.0 - 0.4 % [facility] Lymphocytes Percent Auto 40.1(H) 20 - 40 % [facility] Monocytes Percent Auto 7.2 2 - 11 % [facility] Eosinophils Percent Auto 1.5 0 - 4 % [facility] Basophils Percent Auto 0.6 0 - 2 % [facility] NRBC Pct Auto 0.0 0.0 - 0.2 /100WBC [facility] Neutrophils Absolute Auto 5.7 2.0 - 8.3 x10*3/uL [facility] Imm Gran Abs Auto 0.04(H) 0.00 - 0.03 X10*3/uL [facility] Lymphocytes Absolute Auto 4.6 1.2 - 4.9 X10*3/uL [facility] Monocytes Absolute Auto 0.8 0.1 - 1.2 X10*3/uL [facility] Eosinophils Absolute Auto 0.2 0.0 - 0.4 X10*3/uL [facility] Basophils Absolute Auto 0.1 0.0 - 0.2 X10*3/uL [facility] NRBC Abs Auto 0.000 0.0 - 0.012 X10*3/uL [facility] Blood Venous blood specimen / Unknown 02/09/2025 02/09/2025 Rand Stover MD LAB BLOOD ORDERABLES Final Resul t [facility] [address] [place] [phone] * (ABNORMAL) Lipid Panel with Reflex to Direct LDL (07/22/2024 12:00 AM EDT) Triglycerides 498(H) <150 mg/dL [facility] Comment:Desirable Triglyceri de: less than 150 mg/dLBorderline High Triglyceride 150-199 mg/dLHigh Triglyceride: 200-499 mg/dLVery High Triglyceride: greater than or equal to 5OO mg/dL Cholesterol 191 <200 mg/dL [facility] Comment:Desirable Cholestero l: less than 200 mg/dLBorderline High Cholesterol: 200-239 mg/dLHigh Cholesterol: greater than 239 mg/dL LDL Cholesterol Calculated TNP <100 mg/dL [facility] Comment:Unable to calculate the LDL. The formula of Friedwald,Bonner, and Zamzam is only valid if the triglycerides areless than 400 mg/dl. HDL Cholesterol 32(L) >40 mg/dL [facility] Comment:Desirable HDL: grea ter than 40 mg/dL Note: This HDL assay may give artificially low results in patients with liver disease. Blood 07/22/2024 07/22/2024 Rand Stover MD LAB BLOOD ORDERABLES Final Resul t Performing Organization Address [facility] Co de Phone Number [facility] [address] [place] [phone] * Hepatitis C Antibody with Reflex to HCV, RNA, Quantitative, Real-Time PCR (12/03/2023 4:49 PM EST) Hepatitis C Antibody Nonreactive Nonreactive [facility] Comment:Antibodies to HCV no t detected; does not exclude early acuteHCV infection. Blood Venous blood specimen / Unknown 12/03/2023 4:49 PM EST 12/03/2023 5:21 PM EST Rand Stover MD LAB BLOOD ORDERABLES Final Resul t Performing Organization Address [facility] Co de Phone Number [facility] [address] [place] [phone] * HIV-1/2 Antigen and Antibodies, Fourth Generation, with Reflexes (12/03/2023 4:49 PM EST) HIV AB/AG Nonreactive Nonreactive [facility] Comment:HIV-1 p24 Ag and/or HIV-1/HIV-2 Ab not detected.A test result that is nonreactive does not exclude thepossibility of exposure to or infection with HIV-1 and/orHIV-2. Nonreactive results in this assay for individualswith prior exposure to HIV-1 and/or HIV-2 may be due toantigen and antibody levels that are below the limit ofdetection of this assay.The [employer] HIV Ag/Ab Combo assay result andsupplemental assay results should be interpreted inconjunction with the patient's clinical presentation,history and other laboratory results. If the results areinconsistent with clinical evidence, additional testing issuggested to confirm the result. Blood Venous blood specimen / Unknown 12/03/2023 4:49 PM EST 12/03/2023 5:21 PM EST Rand Stover MD LAB BLOOD ORDERABLES Final Resul t [facility] [address] [place], [place] [phone] from Last 3 Months or Most Recently Relevant to Health Maintenance Insurance [address] [facility] DUAL COMPLETE [facility] STANDARD * Guarantor: Morrison Colon, Nura Account Type Relation to Patient Date of Phone Billing Address Personal/Family Self [address] Care Teams Printing Engineer Relationship Specialty Start Date End Date Rand Stover MD [address] [place] [phone] PCP - General Family Medicine 11/04/18
--- OUTSIDE RECORDS SUMMARY | 2025-02-09 18:58 | XMS_ITS | Encounter Summary ---
Author Organization [employer] Address [address] [facility] [address] [place] [address] Care Team Providers Care Want Ad Supervisor Name Role Phone Rand Stover MD Primary Care Provider [phone] Encounter Details Date Type Department Care Team (Late st Contact Info) Description 03/27/2023 Abstract [facility] [address] [place] [address] Rand Stover MD [address] [place], [place] [phone] Social History Tobacco Use Types Packs/Day Years [...] on filedocumented in this encounter Care Teams Want Ad Supervisor Relationship Specialty Start Date End Date Rand Stover MD [address] [place] [address] PCP - General Family Medicine 11/04/18 documented as of this encounter
--- OUTSIDE RECORDS SUMMARY | 2025-02-09 18:58 | XMS_ITS | Encounter Summary ---
Author Organization [employer] Address [address] [place] [address] [address] [place] [address] Care Team Providers Care Governor Assembler Name Role Phone Rand Stover MD Primary Care Provider [phone] Reason for Referral * Imaging (Routine) - Closed Specialty Diagnoses / Procedures Referred By Claudia torres Referred To Contact Radiology Diagnoses Metabolic dysfunction-associated steatotic liver disease (MASLD) Procedures US Abdomen Comp w elastography Rand Stover MD [address] [place] [address] Phone: tel: fax: [address] Phone: tel: fax: Referral ID Status Reason Start Date Expiration Date Visits Re quested Visits Authorized [id number] Closed 07/02/2024 07/02/2025 1 1 Encounter Details Date Type Department Care Team (Late st Contact Info) Description 07/02/2024 Orders Only [facility] [address] [place], [place] [phone] Rand Stover MD [address] [place] [address] Metabolic dysfunction-associated steatotic liver disease [...] Type Priority Associated Diagnoses Orde r Schedule US Abdomen Comp w elastography Imaging Routine Metabolic dysfunction-associated steatotic liver disease (MASLD) Expected: 07/02/2024, Expires: 07/02/2025 documented as of this encounter Procedures Procedure Name Priority Date/Time Associated Diagnosis Comments CBC WITH AUTO DIFFERENTIAL Routine 02/09/2025 12:00 AM EDT Metabolic dysfunction-associ ated steatotic liver disease (MASLD) LIPID PANEL WITH REFLEX TO DIRECT LDL Routine 07/22/2024 12:00 AM EDT Metabolic dysfunction-associ ated steatotic liver disease (MASLD) HEPATITIS A ANTIBODY, TOTAL Routine 07/22/2024 12:00 AM EDT Immunity status testing COMPREHENSIVE METABOLIC PANEL Routine 07/22/2024 12:00 AM EDT Metabolic dysfunction-associ ated steatotic liver disease (MASLD) documented in this encounter Results * (ABNORMAL) CBC auto differential (02/09/2025 12:00 AM EDT) White Blood Count 11.4(H) 4.8 - 10.8 X10*3/uL [facility] Red Blood Count 5.97(H) 4.60 - 5.80 X10*6/uL [facility] Hemoglobin 17.5 14.0 - 18.0 g/dl [facility] Hematocrit 49.5 42.0 - 52.0 % [facility] Mean Corpuscular Volume 82.9 80.0 - 98.0 fL [facility] Mean Corpuscular Hemoglobin 29.3 27.0 - 33.0 pg [facility] Mean Corpuscular HGB Conc 35.4 31.0 - 36.0 g/dl [facility] Red Cell Distribution Width 12.7 11.0 - 16.0 % [facility] Platelet Count 317 160 - 400 X10*3/uL [facility] Mean Platelet Volume 10.6 9.4 - 12.4 fL [facility] Neutrophils Percent Auto 50.2 45 - 73 % [facility] Imm Gran Pct Auto 0.4 0.0 - 0.4 % [facility] Lymphocytes Percent Auto 40.1(H) 20 - 40 % [facility] Monocytes Percent Auto 7.2 2 - 11 % [facility] Eosinophils Percent Auto 1.5 0 - 4 % [facility] Basophils Percent Auto 0.6 0 - 2 % [facility] NRBC Pct Auto 0.0 0.0 - 0.2 /100WBC [facility] Neutrophils Absolute Auto 5.7 2.0 - 8.3 x10*3/uL [facility] Imm Gran Abs Auto 0.04(H) 0.00 - 0.03 X10*3/uL [facility] Lymphocytes Absolute Auto 4.6 1.2 - 4.9 X10*3/uL [facility] Monocytes Absolute Auto 0.8 0.1 - 1.2 X10*3/uL [facility] Eosinophils Absolute Auto 0.2 0.0 - 0.4 X10*3/uL [facility] Basophils Absolute Auto 0.1 0.0 - 0.2 X10*3/uL [facility] NRBC Abs Auto 0.000 0.0 - 0.012 X10*3/uL [facility] Blood Venous blood specimen / Unknown 02/09/2025 02/09/2025 Rand Stover MD LAB BLOOD ORDERABLES Final Resul t [facility] [address] [place] [phone] * Hepatitis A Antibody, Total (07/22/2024 12:00 AM EDT) Hepatitis A Antibody IgG REACTIVE Nonreactive [facility] Comment:The presence of IgG anti-HAV implies past HAV infection(recent or distant) or vaccination against HAV. Blood Venous blood specimen / Unknown 07/22/2024 07/22/2024 Rand Stover MD LAB BLOOD ORDERABLES Final Resul t Performing Organization Address [facility] Co de Phone Number [facility] [address] [place] [phone] * (ABNORMAL) Lipid Panel with Reflex to Direct LDL (07/22/2024 12:00 AM EDT) Triglycerides 498(H) <150 mg/dL [facility] Comment:Desirable Triglyceri de: less than 150 mg/dLBorderline High Triglyceride 150-199 mg/dLHigh Triglyceride: 200-499 mg/dLVery High Triglyceride: greater than or equal to 5OO mg/dL Cholesterol 191 <200 mg/dL [facility] Comment:Desirable Cholestero l: less than 200 mg/dLBorderline High Cholesterol: 200-239 mg/dLHigh Cholesterol: greater than 239 mg/dL LDL Cholesterol Calculated TNP <100 mg/dL [facility] Comment:Unable to calculate the LDL. The formula of Friedwald,Bonner, and Zamzam is only valid if the triglycerides areless than 400 mg/dl. HDL Cholesterol 32(L) >40 mg/dL [facility] Comment:Desirable HDL: great er than 40 mg/dL Note: This HDL assay may give artificially low results in patients with liver disease. Blood 07/22/2024 07/22/2024 Rand Stover MD LAB BLOOD ORDERABLES Final Resul t Performing Organization Address [facility] Co de Phone Number [facility] [address] [place] [phone] * (ABNORMAL) Comprehensive Metabolic Panel (07/22/2024 12:00 AM EDT) Sodium 139 135 - 145 mmol/L [facility] Potassium 3.7 3.3 - 5.1 mmol/L [facility] Comment:Slight Hemolysis Chloride 108 96 - 108 mmol/L [facility] Carbon Dioxide 21(L) 22 - 29 mmol/L [facility] Anion Gap 14 12 - 20 [facility] Urea Nitrogen (BUN) 8(L) 9 - 16 mg/dL [facility] Creatinine, Serum 0.74 0.5 - 1.4 mg/dL [facility] Estimated Glomerular Filt Rate >60 [facility] Comment:NOTE: For -Am erican individuals, multiply the result by 1.210.Chronic Kidney Disease: Estimated GFR < 60 mL/min/[id number] Kidney Disease: Estimated GFR < 15 mL/min/1.73m2 Glucose 125(H) 60 - 115 mg/dL [facility] Calcium 9.6 8.4 - 10.2 mg/dL [facility] Bilirubin, Total 0.4 0.0 - 1.0 mg/dL [facility] Aspartate Amino Transferase 34 5 - 37 U/L [facility] Comment:Slight Hemolysis Alanine Aminotransferase 56(H) 0 - 40 U/L [facility] Total Protein 7.8 6.5 - 8.0 g/dL [facility] Albumin Level 4.4 3.5 - 5.0 g/dL [facility] Alkaline Phosphatase 61 39 - 117 U/L [facility] Blood Venous blood specimen / Unknown 07/22/2024 07/22/2024 us Rand Stover MD LAB BLOOD ORDERABLES Final Resul t [facility] [address] [place] [phone] documented in this encounter Visit Diagnoses Diagnosis Metabolic dysfunction-associated steatotic liver disease (MASLD)- Primary Immunity status testing Antibody response examination documented in this encounter Additional Health Concerns Assessment Noted Time PHQ-9 Depression Total Score: 10 09/17/ 023 1:52 PM EST documented as of this encounter Care Teams Governor Assembler Relationship Specialty Start Date End Date Rand Stover MD [address] [place] [phone] PCP - General Family Medicine 11/04/18 documented as of this encounter
--- OUTSIDE RECORDS SUMMARY | 2025-02-09 18:58 | XMS_ITS | Clinical Summary ---
Demographics Address [address] [place] [address] Email Address VANESSA Preferred Language Rwandan Marital Status Unknown Pentecostal Affiliation Unknown Race Unknown Ethnic Group Unknown Author Organization Unknown Care Team Providers Care Ship Pilot Name Role Phone ADRIAN MENA, RAJENDRA Unavailable Unavailable MILAGROS MUNOZ, BROWN Unavailable Unavailable Payers Payer Name Policy Type Policy Number Effective Date Expira tion Date [facility] ADV [id number] [facility] CARE [place] [id number] MEDICAID [facility] [id number] MEDICARE - NGS AL/DC - PD [id number] Problems Condition Name Condition Details Condition Category [...] 2020-11 00:00: 00 05-09 23:59 :00 No [id number] 1 mg BEDTIME 1 mg BEDTIME (route: oral) Med Classific ation: Central Nervous System Agents Depakote ER 500 mg tablet,exte nded release 2020-11 00:00: 00 09-01 23:59 :00 No [id number] 500 mg EVERY AM 500 mg EVERY AM (route: oral) Med Classific ation: Central Nervous System Agents Depakote ER 500 mg tablet,exte nded release 2020-11 00:00: 00 09-01 23:59 :00 No [id number] 500 mg BEDTIME 500 mg BEDTIME (route: oral) Med Classific ation: Central Nervous System Agents haloperidol decanoate 50 mg/mL intramuscul ar solution 2020-11 00:00: 05-09 23:59 :00 No [id number] 50 mg MONTHLY 50 mg MONTHLY (route: intramuscu lar) Med Classific ation: Central Nervous System Agents Depakote ER 500 mg tablet,exte nded release 2020-11 00:00: 00 05-09 23:59 :00 No [id number] 500 mg EVERY AM 500 mg EVERY AM (route: oral) Med Classific ation: Central Nervous System Agents albuterol sulfate HFA 90 mcg/actuati on aerosol inhaler 05-09 00:00: 00 Yes [id number] 2 puff DIRECTED 2 puff DIRECTED (route: inhalation ) Med Classific ation: Respirato ry Therapy Agents benztropine 0.5 mg tablet 05-09 00:00: 00 Yes [id number] 0.5 mg BEDTIME 0.5 mg BEDTIME (route: oral) Med Classific ation: Central Nervous System Agents clozapine 100 mg tablet 05-09 00:00: 00 Yes [id number] 100 mg DAILY 100 mg DAILY (route: [...] AWARENESS FOR SAFETY AND WILL NOTIFY CLINICAL ROLL UP GUIDER OPERATOR AND PHYSICIAN/PROVIDER WITH ANY CHANGE IN CONDITION. [code = SKILLED NURSE WILL MAINTAIN SITUATIONAL AWARENESS FOR SAFETY AND WILL NOTIFY CLINICAL ROLL UP GUIDER OPERATOR AND PHYSICIAN/PROVIDER WITH ANY CHANGE IN CONDITION.] [...] MEDICATIONS DAILY AND PRE-POUR MEDICATIONS TILL NEXT LONG TERM VISIT PER MEDICATION LIST. [code = SKILLED NURSE TO ADMINISTER MEDICATIONS DAILY AND PRE-POUR MEDICATIONS TILL NEXT LONG TERM VISIT PER MEDICATION LIST.] Future Scheduled Test [...] CARE WILL BE ESTABLISHED THAT MEETS PATIENT'S LONG TERM NEEDS AND INCLUDES PATIENT GOAL FOR HOME [...] Progress Notes <paragraph>[Visit Date: 2024 by BROWN LINAERS RN]:</paragraph><paragraph>PATIENT EDUCATED ABOUT THE IMPORTANCE OF USING [...] End Date/Time Encounter Type Admission Type Attending [facility] Department Encounter ID Discharge Date Discharge Status Discharge Condition Discharge Reason Percent Goals Met 2022 00:00:00 2025-02-21 00:00:00 [facility] BROWN G[facility] [id number] 21.74
--- OUTSIDE RECORDS SUMMARY | 2025-02-09 18:58 | XMS_ITS | Encounter Summary ---
Author Organization [employer] Address [address] [facility] [address] [place] [address] Care Team Providers Care Staff Readiness Officer Name Role Phone Rand Stover MD Primary Care Provider [phone] Reason for Visit * Reason Onset Date Comments Paperwork/Forms 05/18/2024 Encounter Details Date Type Department Care Team ([facility] Contact Info) Description 05/18/2024 Telephone [facility] MEDICINE [address] [place], [place] [phone] Rand Stover MD [address] [place], [place] [phone] Paperwork/Forms Social History Tobacco Use Types Packs/Day [...] from patient requesting the status for the [employer] services paperwork patient stated that was faxed to the provider about 3 weeks ago documented in this encounter Plan of Treatment Not on file documented as of this encounter Visit Diagnoses Not on filedocumented in this encounter Additional Health Concerns Assessment Noted Time PHQ-9 Depression Total Score: 10 023 1:52 PM EST documented as of this encounter Care Teams Staff Readiness Officer Relationship Specialty Start Date End Date Rand Stover MD [address] [place] [address] PCP - General Family Medicine 11/04/18 documented as of this encounter
--- OUTSIDE RECORDS SUMMARY | 2025-02-09 18:58 | XMS_ITS ---
Author Name MS. Nell Ugarte APRN Address [address] [place] [address] Phone [phone] [facility] Care Team Providers Care Systems Engineering Manager Name Role Phone Lola Ugarte Unavailable [phone] Reason for Referral Not Available Allergies, adverse reactions, alerts No known allergies History of medication use Medication Class Instructions Start Date End Date Xeekedwx-Iifuqcewt-BS 1 % Solution INSTILL 3 DROPS INTO [...] of Service Diagnosis/Co mplaint No Data Available [facility], ([place]) 02/04/2024 Schizoaffective disorder, unspecifiedGastro-esophageal reflux disease without esophagitisSecondary polycythemiaElevation of levels of liver transaminase levelsTachycardia, unspecifiedUnspecified asthma, uncomplicatedHypercalcemia No Data Available [facility] 02/04/2024 No Data Available [facility]/04/2024 No Data Available [facility] 02/04/2024 No Data Available [facility] ([place]) 02/04/2024 Vital Signs Date of Collection Vitals 2024-02-04 11:53:06 Height - 172.72 cmWe ight - 101.61 kgBody Mass Index (BMI) - 34.06 kg/m2BP Diastolic - 78.0 mm[Hg]BP Systolic - 121.0 mm[Hg] Social History Sex Male History of Procedures Procedures Service Procedure code Service date Servicing provider Phone# No Data Available [id number] 2024-02-04 No Data Available No Data Available [...] medical discussion (no modifier 95)Medication List Documented (8699F)Continue to see PCP. Follow-up with [facility] as [...] 2 inhalations every 12 hours #1 each JEl8dLu New Montelukast Sodium 10 mg Tab 1 [...] completed via audio by telephone. Pt speaks Divehi however [employer] [facility] present training and documentation specialist and available for any clarification needs. Patient/Guardian [...]
== END 2025-02-09 16:20 | disposition home or self-care (01) ==
LOC: HO.LABR 16:19
PROVIDERS: Family Medicine; Visit Provider Psychiatry & Neurology Psychiatry
DX: K76.0 Fatty (change of) liver, not elsewhere classified (principal); Z79.899 Other long term (current) drug therapy
CPT/HCPCS: 36415; 85025

== ENCOUNTER 2025-03-12 11:43 | Outpatient (REF) | payer MEDICARE, SELFPAY ==
--- OUTSIDE RECORDS SUMMARY | 2025-03-12 12:10 | XMS_ITS | Clinical Summary ---
Demographics Address [address] [place] [address] Email Address VANESSA Preferred Language Czech Marital Status Unknown Confucianist Affiliation Unknown Race Unknown Ethnic Group Unknown Author Organization Unknown Care Team Providers Care Weight Loss Sales Consultant Name Role Phone ADRIAN MENA, RAJENDRA Unavailable Unavailable MILAGROS MUNOZ, BROWN Unavailable Unavailable Payers Payer Name Policy Type Policy Number Effective Date Expira tion Date [facility] ADV [id number] [place] [id number] [facility] ONE CARE [place]GRAM [id number] MEDICARE - NGS MD/PR - PD [id number] Problems Condition Name Condition Details Condition Category [...] 2020-11 00:00: 00 05-09 23:59 :00 No [id number] 1 mg BEDTIME 1 mg BEDTIME (route: oral) Med Classific ation: Central Nervous System Agents Depakote ER 500 mg tablet,exte nded release 2020-11 00:00: 00 09-01 23:59 :00 No [id number] 500 mg EVERY AM 500 mg EVERY AM (route: oral) Med Classific ation: Central Nervous System Agents Depakote ER 500 mg tablet,exte nded release 2020-11 00:00: 00 09-01 23:59 :00 No [id number] 500 mg BEDTIME 500 mg BEDTIME (route: oral) Med Classific ation: Central Nervous System Agents haloperidol decanoate 50 mg/mL intramuscul ar solution 2020-11 00:00: 05-09 23:59 :00 No [id number] 50 mg MONTHLY 50 mg MONTHLY (route: intramuscu lar) Med Classific ation: Central Nervous System Agents Depakote ER 500 mg tablet,exte nded release 2020-11 00:00: 00 05-09 23:59 :00 No [id number] 500 mg EVERY AM 500 mg EVERY AM (route: oral) Med Classific ation: Central Nervous System Agents albuterol sulfate HFA 90 mcg/actuati on aerosol inhaler 05-09 00:00: 00 Yes [id number] 2 puff DIRECTED 2 puff DIRECTED (route: inhalation ) Med Classific ation: Respirato ry Therapy Agents benztropine 0.5 mg tablet 05-09 00:00: 00 Yes [id number] 0.5 mg BEDTIME 0.5 mg BEDTIME (route: oral) Med Classific ation: Central Nervous System Agents clozapine 100 mg tablet 05-09 00:00: 00 Yes [id number] 100 mg DAILY 100 mg DAILY (route: oral) Med Classific ation: Central Nervous System Agents Vital Signs Vital Name Observation Time Observation Value Commen ts Temperature 2025-03-11 08:25:00.000 97.5 [degF] Temperature 2025-03-10 09:23:00.000 97.5 [degF] Temperature 2025-03-09 09:23:00.000 97.6 [degF] Temperature 2025-03-08 08:47:00.000 97.5 [degF] Temperature 2025-03-07 08:35:00.000 97.5 [degF] Temperature 2025-03-06 08:51:00.000 97.7 [degF] Temperature 2025-03-05 08:55:00.000 97.5 [degF] Temperature 2025-03-04 09:22:00.000 97.5 [degF] Temperature 2025-03-03 09:25:00.000 97.8 [degF] Temperature 2025-03-02 09:05:00.000 97.5 [degF] Temperature 2025-03-01 09:17:00.000 97.5 [degF] Temperature 2025-02-28 08:43:00.000 97.5 [degF] Temperature 2025-02-27 09:10:00.000 97.5 [degF] Temperature 2025-02-26 09:13:00.000 97.5 [degF] Temperature 2025-02-25 09:05:00.000 97.5 [degF] Temperature 2025-02-24 09:48:00.000 97.5 [degF] Temperature 2025-02-23 09:26:00.000 97.5 [degF] Temperature 2025-02-22 09:42:00.000 97.7 [degF] Plan of Treatment Planned Activity Planned [...] HEALTH.] Future Scheduled Test SKILLED NU RSE FOR MEDICATION ADMINISTRATION PER MEDICATION LIST TO BE PERFORMED DAILY [code = SKILLED NURSE FOR MEDICATION ADMINISTRATION PER MEDICATION LIST TO BE PERFORMED DAILY ] Future Scheduled Test SKILLED NU RSE TO PRE-POUR MEDICATION PER MEDICATION LIST TILL NEXT HALFWAY VISIT [code = SKILLED NURSE TO PRE-POUR MEDICATION PER MEDICATION LIST TILL NEXT HALFWAY VISIT ] Future Scheduled Test PATIENT MA Y HAVE ONE SET OF EMERGENCY MEDICATION NOT TO BE PRE-POURED ANY SOONER THAN 24 HOURS BEFORE SEVERE INCLEMENT WEATHER OR EMERGENT EVENT AND FOLLOWING SKILLED NURSE EVALUATION OF PATIENT SAFETY. [code = PATIENT MAY HAVE ONE SET OF EMERGENCY MEDICATION NOT TO BE PRE-POURED ANY SOONER THAN 24 HOURS BEFORE SEVERE INCLEMENT WEATHER OR EMERGENT EVENT AND FOLLOWING SKILLED NURSE EVALUATION OF PATIENT SAFETY.] Future Scheduled Test SKILLED NU RSE TO O/A OF PATIENTS MENTAL/BEHAVIORAL STATUS, ASSESS VITAL SIGNS DAILY [code = SKILLED NURSE TO O/A OF PATIENTS MENTAL/BEHAVIORAL STATUS, ASSESS VITAL SIGNS DAILY ] Future Scheduled Test SKILLED NU [...] OPERATIONS AND ACTIVITIES ] Future Scheduled Test MEDICATION S WILL BE HELD AND STORED IN LOCKBOX [code = MEDICATIONS WILL BE HELD AND STORED IN LOCKBOX] Future Scheduled Test SKILLED NU RSE FOR O/A OF GENERAL HEALTH STATUS OF PAIN, CARDIAC, RESPIRATORY, GASTROINTESTINAL, GENITOURINARY, SKIN, NEUROLOGIC, ENDOCRINE SYSTEMS TO IDENTIFY CHANGES ASSOCIATED WITH EXACERBATION FOR EARLY INTERVENTION OF COMPLICATIONS WEEKLY. [code = SKILLED NURSE FOR O/A OF GENERAL HEALTH STATUS OF PAIN, CARDIAC, RESPIRATORY, GASTROINTESTINAL, GENITOURINARY, SKIN, NEUROLOGIC, ENDOCRINE SYSTEMS TO IDENTIFY CHANGES ASSOCIATED WITH EXACERBATION FOR EARLY INTERVENTION OF COMPLICATIONS WEEKLY.] Future Scheduled Test SKILLED NU RSE TO ADMINISTER MEDICATIONS DAILY AND PRE-POUR MEDICATIONS TILL NEXT HALFWAY VISIT PER MEDICATION LIST. [code = SKILLED NURSE TO ADMINISTER MEDICATIONS DAILY AND PRE-POUR MEDICATIONS TILL NEXT HALFWAY VISIT PER MEDICATION LIST.] Future Scheduled Test SKILLED NU RSE TO [...] PROBLEMS.] Future Scheduled Test SKILLED NU RSE FOR O/A OF CLIENT'S SOCIAL ISOLATION AND PROVIDE ASSISTANCE TO CLIENT IN DEVELOPMENT OF PLANNED ACTIVITIES [code = SKILLED NURSE FOR O/A OF CLIENT'S SOCIAL ISOLATION AND PROVIDE ASSISTANCE TO CLIENT IN DEVELOPMENT OF PLANNED ACTIVITIES] Future Scheduled Test SKILLED NU RSE TO [...] SERVICES.] Future Scheduled Test SKILLED NU RSE WILL MAINTAIN SITUATIONAL AWARENESS FOR SAFETY AND WILL NOTIFY CLINICAL INVENTORY PLANNER AND PHYSICIAN/PROVIDER WITH ANY CHANGE IN CONDITION. [code = SKILLED NURSE WILL MAINTAIN SITUATIONAL AWARENESS FOR SAFETY AND WILL NOTIFY CLINICAL INVENTORY PLANNER AND PHYSICIAN/PROVIDER WITH ANY CHANGE IN CONDITION.] Future Scheduled Test SKILLED NU RSE TO PROVIDE INSTRUCTION TO PATIENT/CAREGIVER RELATED TO DISCHARGE PLANNING. [code = SKILLED NURSE TO PROVIDE INSTRUCTION TO PATIENT/CAREGIVER RELATED TO DISCHARGE PLANNING.] Goal 2022-07-03 Patient Goal - T AKING [...] T AKING MY MEDICATION EVERY DAY Goal 2025-02-17 Patient Goal - T AKING MY MEDICATION EVERY DAY Goal Patient Goal - T AKING MY MEDICATION EVERY DAY Goal Provider Goal - A PLAN OF CARE WILL BE ESTABLISHED THAT MEETS PATIENT'S HALFWAY NEEDS AND INCLUDES PATIENT GOAL FOR HOME HEALTH. Goal Provider Goal - PATIENT WILL COMPLY WITH MEDICATION WHEN NURSE ADMINISTERS THROUGHOUT CERTIFICATION PERIOD. Goal Provider Goal - PATIENT WILL COMPLY WITH MEDICATION WHEN SKILLED NURSE PRE-POURS MEDICATION THROUGHOUT CERTIFICATION PERIOD. Goal Provider Goal - MEDICATION WILL BE AVAILABLE DURING INCLEMENT WEATHER OR EMERGENT EVENT THROUGHOUT CERTIFICATION PERIOD. Goal Provider Goal - ALTERED MENTAL/BEHAVIORAL STATUS WILL BE IDENTIFIED PROMPTLY AND INTERVENTION INITIATED QUICKLY TO MINIMIZE ASSOCIATED RISKS THROUGHOUT CERTIFICATION PERIOD. Goal Provider Goal - PATIENT WILL REMAIN SAFE IN COMMUNITY WITHOUT EVIDENCE OF INJURY/HARM TO SELF OR OTHERS THROUGHOUT CERTIFICATION PERIOD. Goal Provider Goal - PATIENT WILL BE ABLE TO PERFORM DAILY FUNCTIONS AND HAVE OPTIMAL IMPROVEMENT IN THOUGHT PROCESS THROUGHOUT CERTIFICATION PERIOD. Goal Provider Goal - MEDICATION WILL BE STORED IN LOCKBOX FOR SAFETY. Goal Provider Goal - CHANGE IN GENERAL HEALTH STATUS WILL BE IDENTIFIED AND REPORTED TO PHYSICIAN FOR PROMPT INTERVENTION TO MINIMIZE ASSOCIATED RISKS THROUGHOUT CERTIFICATION PERIOD. Goal Provider Goal - PATIENT WILL COMPLY WITH MEDICATION WHEN SKILLED NURSE ADMINISTERS AND PRE-POURS MEDICATION THROUGHOUT CERTIFICATION PERIOD. Goal Provider Goal - PATIENT/CAREGIVER WILL VERBALIZE/DEMONSTRATE [...] THE CERTIFICATION PERIOD. Goal Provider Goal - PSYCHOSOCIAL NEEDS WILL BE IDENTIFIED AND PLAN IMPLEMENTED TO MINIMIZE RISK THROUGHOUT CERTIFICATION PERIOD. Goal Provider Goal - PATIENT WILL REMAIN SAFE IN THE COMMUNITY AND WILL BE FREE OF DANGER TO SELF AND OTHERS THROUGHOUT THE CERTIFICATION PERIOD. Goal Provider Goal - PATIENT/CAREGIVER WILL VERBALIZE UNDERSTANDING OF DISCHARGE PLANNING INSTRUCTIONS BY DATE OF DISCHARGE. Progress Notes Progress Notes <paragraph>[Visit Date: 2024 by BROWN LINARES RN]:</paragraph><paragraph>PATIENT EDUCATED THAT LACK OF AMBULATION/ACTIVITY INCREASES THE RISK FOR SKIN BREAKDOWN/OPEN AREAS, WAYS TO REDUCE SKIN IMPAIRMENT INCLUDE CHANGING POSITIONS OFTEN, SUPPORTING SELF WITH PILLOWS, AND EATING A WELL BALANCED DIET, PATIENT VERBALIZED UNDERSTANDING.</paragraph> <paragraph>[Visit Date: 2024 by BROWN LINARES RN]:</paragraph><paragraph>PATIENT EDUCATED ABOUT WAYS TO PREVENT SICKNESS INCLUDING WASHING HANDS WITH SOAP/WARM WATER FREQUENTLY, EATING A WELL BALANCED DIET/DRINKING PLENTY OF FLUIDS, AND AVOIDING PEOPLE WHO ARE SICK, PATIENT VERBALIZED UNDERSTANDING.</paragraph> <paragraph>[Visit Date: 2024 by BROWN LINARES RN]:</paragraph><paragraph>SN EDUCATED PATIENT THAT STRESS CAN INCREASE ANXIETY, SOME COMMON TYPES OF STRESSORS ARE RELATED TO HEALTH, FINANCES, OR TOXIC RELATIONSHIPS, PATIENT VERBALIZED UNDERSTANDING.</paragraph> <paragraph>[Visit Date: 2024 by BROWN LINARES RN]:</paragraph><paragraph>PATIENT EDUCATED ABOUT NOT USING STREET DRUGS WHILE TAKING PRESCRIBED MEDICATIONS. ADVERSE EFFECTS CAN OCCUR WHEN MIXING MEDICATIONS/DRUGS INCLUDING LOW RESPIRATORY RATE, PSYCHOSIS, AND CARDIAC DISTRESS, PATIENT VERBALIZED UNDERSTANDING.</paragraph> <paragraph>[Visit Date: 2024 by BROWN LINARES RN]:</paragraph><paragraph>SN EDUCATED PATIENT ABOUT NONPHARMALOGICAL PAIN MANAGEMENT TECHNIQUES INCLUDING AVOIDING ACTIVITIES THAT CAUSE PAIN, POSITIONING SELF WITH ELEVATION/PILLOWS FOR COMFORT, AND ENGAGING IN A HOBBY TO TAKE MIND OFF OF PAIN, PATIENT VERBALIZED UNDERSTANDING.</paragraph> <paragraph>[Visit Date: 2024 by BROWN LINARES RN]:</paragraph><paragraph>PATIENT EDUCATED ABOUT SETTING ALARMS IN CELL PHONE/BEDSIDE CLOCK FOR REMINDERS TO TAKE MEDICATIONS ORDERED AND HELP PATIENT REACH/MAINTAIN GOAL OF MEDICATION COMPLIANCE DUE TO FORGETFULNESS, PATIENT VERBALIZED UNDERSTANDING.</paragraph> Encounters Start Date/Time End Date/Time Encounter Type Admission Type Attending [facility] Care Department Encounter ID Discharge Date Discharge Status Discharge Condition Discharge Reason Percent Goals Met 2025-02-22 00:00:00 2025-04-22 00:00:00 Outpatient [facility] [id number] 10.15
--- OUTSIDE RECORDS SUMMARY | 2025-03-12 12:10 | XMS_ITS | Clinical Summary ---
Author Organization [employer] Address [address] [facility] [address] [place] [address] Care Team Providers Care Digital Marketer Name Role Phone Rand Stover MD Primary Care Provider [phone] Allergies No known active allergies Medications benztropine [...] Hx of multiple psych admissions Follows at [facility] with / Ankush Hartman He is on [...] Years) (1 of 2 - PCV) 2012 COVID-19 Vaccine (2 - season) 2024 04/14/2021 [...] Count 11.4(H) 4.8 - 10.8 X10*3/uL [facility] Red Blood Count 5.97(H) 4.60 - 5.80 X10*6/uL [facility] Hemoglobin 17.5 14.0 - 18.0 g/dl [facility] Hematocrit 49.5 42.0 - 52.0 % [facility] Mean Corpuscular Volume 82.9 80.0 - 98.0 fL [facility] Mean Corpuscular Hemoglobin 29.3 27.0 - 33.0 pg [facility] Mean Corpuscular HGB Conc 35.4 31.0 - 36.0 g/dl [facility] Red Cell Distribution Width 12.7 11.0 - 16.0 % [facility] Platelet Count 317 160 - 400 X10*3/uL [facility] Mean Platelet Volume 10.6 9.4 - 12.4 fL [facility] Neutrophils Percent Auto 50.2 45 - 73 % [facility] Imm Gran Pct Auto 0.4 0.0 - 0.4 % [facility] Lymphocytes Percent Auto 40.1(H) 20 - 40 % [facility] Monocytes Percent Auto 7.2 2 - 11 % [facility] Eosinophils Percent Auto 1.5 0 - 4 % [facility] Basophils Percent Auto 0.6 0 - 2 % [facility] NRBC Pct Auto 0.0 0.0 - 0.2 /100WBC [facility] Neutrophils Absolute Auto 5.7 2.0 - 8.3 x10*3/uL [facility] Imm Gran Abs Auto 0.04(H) 0.00 - 0.03 X10*3/uL [facility] Lymphocytes Absolute Auto 4.6 1.2 - 4.9 X10*3/uL [facility] Monocytes Absolute Auto 0.8 0.1 - 1.2 X10*3/uL [facility] Eosinophils Absolute Auto 0.2 0.0 - 0.4 X10*3/uL [facility] Basophils Absolute Auto 0.1 0.0 - 0.2 X10*3/uL [facility] NRBC Abs Auto 0.000 0.0 - 0.012 X10*3/uL [facility] Blood Venous blood specimen / Unknown 02/09/2025 02/09/2025 Rand Stover MD LAB BLOOD ORDERABLES Final Resul t Performing Organization Address City/[facility]/ZIP Co de Phone Number [facility] [address] [place] [phone] * (ABNORMAL) Lipid Panel with Reflex to Direct LDL (07/22/2024 12:00 AM EDT) Triglycerides 498(H) <150 mg/dL [facility] Comment:Desirable Triglyceri de: less than 150 mg/dLBorderline High Triglyceride 150-199 mg/dLHigh Triglyceride: 200-499 mg/dLVery High Triglyceride: greater than or equal to 5OO mg/dL Cholesterol 191 <200 mg/dL [facility] Comment:Desirable Cholestero l: less than 200 mg/dLBorderline High Cholesterol: 200-239 mg/dLHigh Cholesterol: greater than 239 mg/dL LDL Cholesterol Calculated TNP <100 mg/dL [facility] Comment:Unable to calculate the LDL. The formula of Friedwald,Bonner, and Zamzam is only valid if the triglycerides areless than 400 mg/dl. HDL Cholesterol 32(L) >40 mg/dL [facility] Comment:Desirable HDL: great er than 40 mg/dL Note: This HDL assay may give artificially low results in patients with liver disease. Blood 07/22/2024 07/22/2024 Rand Stover MD LAB BLOOD ORDERABLES Final Resul t Performing Organization Address City/[facility]/ZIP Co de Phone Number [facility] [address] [place] [phone] * Hepatitis C Antibody with Reflex to HCV, RNA, Quantitative, Real-Time PCR (12/03/2023 4:49 PM EST) Hepatitis C Antibody Nonreactive Nonreactive [facility] Comment:Antibodies to HCV no t detected; does not exclude early acuteHCV infection. Blood Venous blood specimen / Unknown 12/03/2023 4:49 PM EST 12/03/2023 5:21 PM EST Rand Stover MD LAB BLOOD ORDERABLES Final Resul t Performing Organization Address [facility] Co de Phone Number [facility] [address] [place] [phone] * HIV-1/2 Antigen and Antibodies, Fourth Generation, with Reflexes (12/03/2023 4:49 PM EST) Pathologist [facility] HIV AB/AG Nonreactive Nonreactive [facility] Comment:HIV-1 p24 Ag and/or HIV-1/HIV-2 Ab not detected.A test result that is nonreactive does not exclude thepossibility of exposure to or infection with HIV-1 and/orHIV-2. Nonreactive results in this assay for individualswith prior exposure to HIV-1 and/or HIV-2 may be due toantigen and antibody levels that are below the limit ofdetection of this assay.The [employer] HIV Ag/Ab Combo assay result andsupplemental assay results should be interpreted inconjunction with the patient's clinical presentation,history and other laboratory results. If the results areinconsistent with clinical evidence, additional testing issuggested to confirm the result. Blood Venous blood specimen / Unknown 12/03/2023 4:49 PM EST 12/03/2023 5:21 PM EST us Rand Stover MD LAB BLOOD ORDERABLES Final Resul t Performing Organization Address City/[facility]/ZIP Co de Phone Number [facility] [address] [place] [phone] from Last 3 Months or Most Recently Relevant to Health Maintenance Insurance [facility] ST[facility] Care Teams Digital Marketer Relationship Specialty Start Date End Date Rand Stover MD [address] [place] [phone] PCP - General Family Medicine 11/04/18 [facility] 05/09/22
--- OUTSIDE RECORDS SUMMARY | 2025-03-12 12:10 | XMS_ITS ---
Author Name MS. Nell Ugarte APRN Address [address] [place] [phone] Phone [phone] [facility] Care Team Providers Care Preanalytics Team Lead Name Role Phone oLla Ugarte Unavailable [phone] Reason for Referral Not Available Allergies, adverse reactions, alerts No known allergies History of medication use Medication Class Instructions Start Date End Date Nyvuhams-Nliryeuna-XV 1 % Solution INSTILL 3 DROPS INTO [...] of Service Diagnosis/Co mplaint No Data Available [facility], ([place]) 02/04/2024 Schizoaffective disorder, unspecifiedGastro-esophageal reflux disease without esophagitisSecondary polycythemiaElevation of levels of liver transaminase levelsTachycardia, unspecifiedUnspecified asthma, uncomplicatedHypercalcemia No Data Available [facility] [place] 02/04/2024 No Data Available [facility] [place] 02/04/2024 No Data Available [facility] [place] 02/04/2024 No Data Available [facility] ([place]) 02/04/2024 Vital Signs Date of Collection Vitals 2024-02-04 11:53:06 Height - 172.72 cmWe ight - 101.61 kgBody Mass Index (BMI) - 34.06 kg/m2BP Diastolic - 78.0 mm[Hg]BP Systolic - 121.0 mm[Hg] Social History Sex Male History of Procedures Procedures Service Procedure code Service date Servicing provider Phone# No Data Available [id number] 2024-02-04 No Data Available No Data Available [...] medical discussion (no modifier 95)Medication List Documented (3149F)Continue to see PCP. Follow-up with [facility] as [...] 2 inhalations every 12 hours #1 each [id number] New Montelukast Sodium 10 mg Tab 1 [...] completed via audio by telephone. Pt speaks Belizean however Language Line present agricultural education professor and available for any clarification needs. Patient/Guardian [...]
--- OUTSIDE RECORDS SUMMARY | 2025-03-12 12:10 | XMS_ITS | Encounter Summary ---
Author Organization [employer] Address [address] [facility] 7t [place] [address] Care Team Providers Care Shipwright Helper Name Role Phone Rand Stover MD Primary Care Provider [phone] Reason for Visit * Reason Onset Date Comments Paperwork/Forms 05/18/2024 Encounter Details Date Type Department Care Team ([facility] st Contact Info) Description 05/18/2024 Telephone [facility] MEDICINE [address] [place], [place] [phone] Rand Stover MD [address] [place], [place] [phone] Paperwork/Forms Social History Tobacco Use Types Packs/Day [...] from patient requesting the status for the [employer] OPERATOR services paperwork patient stated that was faxed to the provider about 3 weeks ago documented in this encounter Plan of Treatment Not on file documented as of this encounter Visit Diagnoses Not on filedocumented in this encounter Additional Health Concerns Assessment Noted Time PHQ-9 Depression Total Score: 10 023 1:52 PM EST documented as of this encounter Care Teams Shipwright Helper Relationship Specialty Start Date End Date Rand Stover MD [address] [place] [address] PCP - General Family Medicine 11/04/18 [facility] 05/09/22 documented as of this encounter
--- OUTSIDE RECORDS SUMMARY | 2025-03-12 12:10 | XMS_ITS | Encounter Summary ---
Author Organization [employer] Address [address] [facility] 7t [place] [address] Care Team Providers Care Director Marketing Name Role Phone Rand Stover MD Primary Care Provider [phone] Encounter Details Date Type Department Care Team (Late st Contact Info) Description 03/27/2023 Abstract [facility] MEDICINE [address] [place] [address] Rand Stover MD [address] [place], [place] [phone] Social History Tobacco Use Types Packs/Day Years [...] filedocumented in this encounter Care Teams Director Marketing Relationship Specialty Start Date End Date Rand Stover MD [address] [place] [address] PCP - General Family Medicine 11/04/18 [facility] 05/09/22 documented as of this encounter
--- OUTSIDE RECORDS SUMMARY | 2025-03-12 12:10 | XMS_ITS | Encounter Summary ---
Author Organization [employer] Address [address] [facility] 7t [place] [address] Care Team Providers Care Outside Plant Engineer Name Role Phone Rand Stover MD Primary Care Provider [phone] Reason for Referral * Imaging (Routine) - Closed Specialty Diagnoses / Procedures Referred By Claudia torres Referred To Contact Radiology Diagnoses Metabolic dysfunction-associated steatotic liver disease (MASLD) Procedures US Abdomen Comp w elastography Rand Stover MD [address] [place] [address] Phone: tel: fax: [address] Phone: tel: fax: Referral ID Status Reason Start Date Expiration Date Visits Re quested Visits Authorized [id number] Closed 07/02/2024 07/02/2025 1 1 Encounter Details Date Type Department Care Team (Late st Contact Info) Description 07/02/2024 Orders Only [facility] MEDICINE 230 [place], [place] [phone] Rand Stover MD [address] [place] [address] Metabolic dysfunction-associated steatotic liver disease [...] Blood Count 11.4(H) 4.8 - 10.8 X10*3/uL [facility] Red Blood Count 5.97(H) 4.60 - 5.80 X10*6/uL [facility] Hemoglobin 17.5 14.0 - 18.0 g/dl [facility] Hematocrit 49.5 42.0 - 52.0 % [facility] Mean Corpuscular Volume 82.9 80.0 - 98.0 fL [facility] Mean Corpuscular Hemoglobin 29.3 27.0 - 33.0 pg [facility] Mean Corpuscular HGB Conc 35.4 31.0 - 36.0 g/dl [facility] Red Cell Distribution Width 12.7 11.0 - 16.0 % [facility] Platelet Count 317 160 - 400 X10*3/uL [facility] Mean Platelet Volume 10.6 9.4 - 12.4 fL [facility] Neutrophils Percent Auto 50.2 45 - 73 % [facility] Imm Gran Pct Auto 0.4 0.0 - 0.4 % [facility] Lymphocytes Percent Auto 40.1(H) 20 - 40 % [facility] Monocytes Percent Auto 7.2 2 - 11 % [facility] Eosinophils Percent Auto 1.5 0 - 4 % [facility] Basophils Percent Auto 0.6 0 - 2 % [facility] NRBC Pct Auto 0.0 0.0 - 0.2 /100WBC [facility] Neutrophils Absolute Auto 5.7 2.0 - 8.3 x10*3/uL [facility] Imm Gran Abs Auto 0.04(H) 0.00 - 0.03 X10*3/uL [facility] Lymphocytes Absolute Auto 4.6 1.2 - 4.9 X10*3/uL [facility] Monocytes Absolute Auto 0.8 0.1 - 1.2 X10*3/uL [facility] Eosinophils Absolute Auto 0.2 0.0 - 0.4 X10*3/uL [facility] Basophils Absolute Auto 0.1 0.0 - 0.2 X10*3/uL [facility] NRBC Abs Auto 0.000 0.0 - 0.012 X10*3/uL [facility] Blood Venous blood specimen / Unknown 02/09/2025 02/09/2025 Rand Stover MD LAB BLOOD ORDERABLES Final Resul t [facility] [address] [place] [phone] [phone] * Hepatitis A Antibody, Total (07/22/2024 12:00 AM EDT) Hepatitis A Antibody IgG REACTIVE Nonreactive [facility] Comment:The presence of IgG anti-HAV implies past HAV infection(recent or distant) or vaccination against HAV. Blood Venous blood specimen / Unknown 07/22/2024 07/22/2024 Rand Stover MD LAB BLOOD ORDERABLES Final Resul t Performing Organization Address [facility] Co de Phone Number [facility] [address] [place] [address] [phone] * (ABNORMAL) Lipid Panel with Reflex to Direct LDL (07/22/2024 12:00 AM EDT) Triglycerides 498(H) <150 mg/dL [facility] Comment:Desirable Triglyceri de: less than 150 mg/dLBorderline High Triglyceride 150-199 mg/dLHigh Triglyceride: 200-499 mg/dLVery High Triglyceride: greater than or equal to 5OO mg/dL Cholesterol 191 <200 mg/dL [facility] Comment:Desirable Cholestero l: less than 200 mg/dLBorderline High Cholesterol: 200-239 mg/dLHigh Cholesterol: greater than 239 mg/dL LDL Cholesterol Calculated TNP <100 mg/dL [facility] Comment:Unable to calculate the LDL. The formula of Friedwald,Bonner, and Zamzam is only valid if the triglycerides areless than 400 mg/dl. HDL Cholesterol 32(L) >40 mg/dL [facility] Comment:Desirable HDL: great er than 40 mg/dL Note: This HDL assay may give artificially low results in patients with liver disease. Blood 07/22/2024 07/22/2024 Rand Stover MD LAB BLOOD ORDERABLES Final Resul t Performing Organization Address [facility] Co de Phone Number [facility] [address] [place] [address] [phone] * (ABNORMAL) Comprehensive Metabolic Panel (07/22/2024 12:00 AM EDT) Sodium 139 135 - 145 mmol/L [facility] Potassium 3.7 3.3 - 5.1 mmol/L [facility] Comment:Slight Hemolysis Chloride 108 96 - 108 mmol/L [facility] Carbon Dioxide 21(L) 22 - 29 mmol/L [facility] Anion Gap 14 12 - 20 [facility] Urea Nitrogen (BUN) 8(L) 9 - 16 mg/dL [facility] Creatinine, Serum 0.74 0.5 - 1.4 mg/dL [facility] Estimated Glomerular Filt Rate >60 [facility] Comment:NOTE: For -Am erican individuals, multiply the result by 1.210.Chronic Kidney Disease: Estimated GFR < 60 mL/min/1.61f9Ijgdef Kidney Disease: Estimated GFR < 15 mL/min/1.73m2 Glucose 125(H) 60 - 115 mg/dL [facility] Calcium 9.6 8.4 - 10.2 mg/dL [facility] Bilirubin, Total 0.4 0.0 - 1.0 mg/dL [facility] Aspartate Amino Transferase 34 5 - 37 U/L [facility] Comment:Slight Hemolysis Alanine Aminotransferase 56(H) 0 - 40 U/L [facility] Total Protein 7.8 6.5 - 8.0 g/dL [facility] Albumin Level 4.4 3.5 - 5.0 g/dL [facility] Alkaline Phosphatase 61 39 - 117 U/L [facility] Blood Venous blood specimen / Unknown 07/22/2024 07/22/2024 us Rnad Stover MD LAB BLOOD ORDERABLES Final Resul t [facility] [address] [place] [phone] [phone] documented in this encounter Visit Diagnoses Diagnosis Metabolic dysfunction-associated steatotic liver disease (MASLD)- Primary Immunity status testing Antibody response examination documented in this encounter Additional Health Concerns Assessment Noted Time PHQ-9 Depression Total Score: 10 09/17/ 023 1:52 PM EST documented as of this encounter Care Teams Outside Plant Engineer Relationship Specialty Start Date End Date Rand Stover MD [address] [place] [phone] PCP - General Family Medicine 11/04/18 Elara [facility] 05/09/22 documented as of this encounter
--- OUTSIDE RECORDS SUMMARY | 2025-03-12 12:10 | XMS_ITS | Encounter Summary ---
Author Organization [employer] Address [address] [facility] 7t [place] [address] Care Team Providers Care Bobcat Operator Name Role Phone Rand Stover MD Primary Care Provider [phone] Encounter Details Date Type Department Care Team (Late st Contact Info) Description 12/13/[address] [facility] MEDICINE [address] [place] [address] Rand Stover MD [address] [place], [place] [phone] Social History Tobacco Use Types Packs/Day Years [...] on filedocumented in this encounter Care Teams Bobcat Operator Relationship Specialty Start Date End Date Rand Stover MD [address] [place] [address] PCP - General Family Medicine 11/04/18 [facility] 05/09/22 documented as of this encounter
[2025-03-12 12:21] LABS: Basophils Absolute Auto 0.1 X10*3/uL (0.0-0.2); Basophils Percent Auto 0.9 % (0-2); Eosinophils Absolute Auto 0.2 X10*3/uL (0.0-0.4); Eosinophils Percent Auto 2.5 % (0-4); Hematocrit 45.6 % (42.0-52.0); Hemoglobin 16.2 g/dl (14.0-18.0); Imm Gran Abs Auto 0.05 X10*3/uL (0.00-0.03); Imm Gran Pct Auto 0.8 % (0.0-0.4); Lymphocytes Absolute Auto 2.2 X10*3/uL (1.2-4.9); Lymphocytes Percent Auto 34.4 % (20-40); MANUAL DIFF FLAG SCAN; Mean Corpuscular HGB Conc 35.5 g/dl (31.0-36.0); Mean Corpuscular Hemoglobin 29.6 pg (27.0-33.0); Mean Corpuscular Volume 83.4 fL (80.0-98.0); Monocytes Absolute Auto 0.4 X10*3/uL (0.1-1.2); Monocytes Percent Auto 6.5 % (2-11); Neutrophils Absolute Auto 3.5 x10*3/uL (2.0-8.3); Neutrophils Percent Auto 54.9 % (45-73); PLT CLUMP 1; Red Blood Count 5.47 X10*6/uL (4.60-5.80); Red Cell Distribution Width 12.2 % (11.0-16.0); SCAN SMEAR FLAG 1
[2025-03-12 12:49] LABS: Platelet Count 217 X10*3/uL (160-400); SLIDE REVIEW VERIFIED; White Blood Count 6.5 X10*3/uL (4.8-10.8)
== END 2025-03-12 11:44 | disposition home or self-care (01) ==
LOC: HO.LABR 11:43
PROVIDERS: PCP Family Medicine; Visit Provider Psychiatry & Neurology Psychiatry
DX: Z79.899 Other long term (current) drug therapy (principal)
CPT/HCPCS: 36415; 85025

== ENCOUNTER 2025-04-28 12:47 | Outpatient (REF) | payer MEDICARE, SELFPAY ==
[2025-04-28 13:31] LABS: Basophils Absolute Auto 0.1 X10*3/uL (0.0-0.2); Basophils Percent Auto 0.7 % (0-2); Eosinophils Absolute Auto 0.1 X10*3/uL (0.0-0.4); Eosinophils Percent Auto 1.7 % (0-4); Hematocrit 44.5 % (42.0-52.0); Hemoglobin 15.7 g/dl (14.0-18.0); Imm Gran Abs Auto 0.05 X10*3/uL (0.00-0.03); Imm Gran Pct Auto 0.7 % (0.0-0.4); Lymphocytes Absolute Auto 2.2 X10*3/uL (1.2-4.9); Lymphocytes Percent Auto 29.7 % (20-40); Mean Corpuscular HGB Conc 35.3 g/dl (31.0-36.0); Mean Corpuscular Hemoglobin 29.3 pg (27.0-33.0); Mean Platelet Volume 10.9 fL (9.4-12.4); Monocytes Absolute Auto 0.5 X10*3/uL (0.1-1.2); Monocytes Percent Auto 6.3 % (2-11); Neutrophils Absolute Auto 4.5 x10*3/uL (2.0-8.3); Neutrophils Percent Auto 60.9 % (45-73); Platelet Count 241 X10*3/uL (160-400); Red Blood Count 5.36 X10*6/uL (4.60-5.80); Red Cell Distribution Width 12.6 % (11.0-16.0); White Blood Count 7.5 X10*3/uL (4.8-10.8)
== END 2025-04-28 12:48 | disposition home or self-care (01) ==
LOC: HO.LAB 12:47
PROVIDERS: Visit Provider Psychiatry & Neurology Psychiatry
DX: Z79.899 Other long term (current) drug therapy (principal)
CPT/HCPCS: 36415; 85025

== ENCOUNTER 2025-06-11 14:42 | Outpatient (REF) | payer MEDICARE, SELFPAY ==
--- OUTSIDE RECORDS SUMMARY | 2025-06-11 14:46 | XMS_ITS ---
Author Name Parisi ESTEPHANIELudivina Address [address] [place] [address] Phone [phone] [facility] Care Team Providers Care Health/Safety Job Titles Name Role Phone Ludivina Parisi Unavailable [phone] Reason for Referral Not Available Allergies, adverse reactions, alerts No known allergies History of medication use Medication Class Instructions Start Date End Date Dfotlokj-Vdkdiouci-VS 1 % Solution INSTILL 3 DROPS INTO [...] List Problem Status Onset Date Resolved Date Synopsis Paranoid schizophreniaSchizoaffective disorder Active 2024-02-04 N/A cloZAPine 100 mg Tab TAKE 3 1/2 [...] treatment plan per behavioral health service provider GERD (gastroesophageal reflu x disease) Active 2024-02-04 N/A not on any meds at this time- no GI c/o at this time per medical record review:omeprazole OTC (PriLOSEC OTC) 20 MG EC tabletindications: Bilious vomiting with nausea Polycythemia Active 2024-02-04 N/A per medical recordsno acute issues ongoing monitoring and management as as per PCP Transaminitis Active 2024-02-04 N/A per medical recordsno acute issues ongoing monitoring and management as per PCP Sinus tachycardia Active 2024-02-04 N/A no repo rt of any chest pain or palpitationsnot on any medsfollow up with PCP as instructed and prn Asthma Active 2024-02-04 N/A pt reports hav ing to go to ED d/t uncontrolled asthma- pt has order for Ventolin HFA 108 (90 Base) MCG/ACT Aerosol Solution INHALE 2 PUFFS BY MOUTH EVERY 4 HOURS NEEDED SHORTNESS OF BREATH OR FOR WHEEZING- will auth courtesy refill- will also add: 02/04/2024eRx New Advair HFA 230-21 MCG/ACT Aerosol Inhalation 2 inhalations every 12 hours #1 each [id number] New Montelukast Sodium 10 mg Tab 1 tablet orally QD for allergies and to prevent bronchospasms #30 tablet RFx1pt may need nebulizer treatments if not controlled with additional meds or if flares continue - pt's care team and PCP to continue to monitor and address plan of care Hypercalcemia Active 2024-02-04 N/A 12/03/23: Ca lcium 10.8 (H)ongoing monitoring and management of labs and plan of care per PCP Encounters Encounters Type Facility Date of Service Diagnosis/Co mplaint No Data Available [facility] ([place]) 02/04/2024 Schizoaffective disorder, unspecifiedGastro-esophageal reflux disease without esophagitisSecondary polycythemiaElevation of levels of liver transaminase levelsTachycardia, unspecifiedUnspecified asthma, uncomplicatedHypercalcemia No Data Available [facility], [place] 02/04/2024 No Data Available [facility] [place] 02/04/2024 No Data Available [facility] [place] 02/04/2024 No Data Available [facility] [place] 02/04/2024 Vital Signs Date of Collection Vitals 2024-02-04 11:53:06 Height - 172.72 cmWe ight - 101.61 kgBody Mass Index (BMI) - 34.06 kg/m2BP Diastolic - 78.0 mm[Hg]BP Systolic - 121.0 mm[Hg] Social History Sex Male History of Procedures Procedures Service Procedure code Service date Servicing provider Phone# No Data Available [id number] 2024-02-04 No Data Available No Data Available [...] medical discussion (no modifier 95)Medication List Documented ([id number])Continue to see PCP. Follow-up with [facility] as [...] 2 inhalations every 12 hours #1 each [id number] New Montelukast Sodium 10 mg Tab 1 [...] completed via audio by telephone. Pt speaks Thai however Language Line present mental health nurse practitioner and available for any clarification needs. Patient/Guardian agreed to visit via telehealth. Introductory visit with Vik to establish care. Today, patient has chief complaint of: establishing care.Reviewed Allergies, Medications, Active Medical conditions, past medical/surgical history, Social history. 2024-02-04 Most recent hospital stay(s) or ER visit(s) and precipitating factors: pt reports he goes to ED d/t his asthma- 2024-02-04 Open HEDIS Measure r louis: completed
[2025-06-11 15:47] LABS: Hematocrit 48.4 % (42.0-52.0); Hemoglobin 17.2 g/dl (14.0-18.0); Imm Gran Abs Auto 0.06 X10*3/uL (0.00-0.03); Imm Gran Pct Auto 0.6 % (0.0-0.4); Lymphocytes Absolute Auto 3.7 X10*3/uL (1.2-4.9); MANUAL DIFF FLAG SCAN; Mean Corpuscular HGB Conc 35.5 g/dl (31.0-36.0); Mean Corpuscular Hemoglobin 29.5 pg (27.0-33.0); Mean Corpuscular Volume 83.0 fL (80.0-98.0); NRBC Abs Auto 0.000 X10*3/uL (0.0-0.012); NRBC Pct Auto 0.0 /100WBC (0.0-0.2); PLT CLUMP 1; Red Blood Count 5.83 X10*6/uL (4.60-5.80); SCAN SMEAR FLAG 1
[2025-06-11 16:19] LABS: Platelet Count 289 X10*3/uL (160-400); White Blood Count 10.3 X10*3/uL (4.8-10.8)
== END 2025-06-11 14:43 | disposition home or self-care (01) ==
LOC: HO.LABR 14:42
PROVIDERS: Visit Provider Psychiatry & Neurology Psychiatry
DX: Z13.89 Encounter for screening for other disorder (principal); Z79.899 Other long term (current) drug therapy
CPT/HCPCS: 36415; 85025

== ENCOUNTER 2025-07-15 14:58 | Outpatient (REF) | payer MEDICARE, SELFPAY ==
[2025-07-15 15:11] LABS: MANUAL DIFF FLAG NO
[2025-07-15 15:27] LABS: Hematocrit 44.5 % (42.0-52.0); Hemoglobin 15.9 g/dl (14.0-18.0); Imm Gran Abs Auto 0.08 X10*3/uL (0.00-0.03); Imm Gran Pct Auto 1.1 % (0.0-0.4); Lymphocytes Absolute Auto 2.4 X10*3/uL (1.2-4.9); Mean Corpuscular HGB Conc 35.7 g/dl (31.0-36.0); Mean Corpuscular Hemoglobin 29.3 pg (27.0-33.0); Mean Corpuscular Volume 82.1 fL (80.0-98.0); NRBC Abs Auto 0.000 X10*3/uL (0.0-0.012); NRBC Pct Auto 0.0 /100WBC (0.0-0.2); Platelet Count 267 X10*3/uL (160-400); Red Blood Count 5.42 X10*6/uL (4.60-5.80); White Blood Count 7.6 X10*3/uL (4.8-10.8)
--- OUTSIDE RECORDS SUMMARY | 2025-07-15 18:25 | XMS_ITS | Clinical Summary ---
Author Organization [employer] Address [address] [facility] 7t [place] [address] Care Team Providers Care Hospital Fellow Name Role Phone Rand Stover MD Primary Care Provider [phone] Allergies No known active allergies Medications benztropine [...] or split. 30 tablet 11 3 Active Additional Information Patient not taking.Reason: Other (PT STATES NOT TAKING), Reported on 04/08/2025 Neomycin-Polymy samson-HC 1 % solution Administer 3 drops into affected ear(s) 4 times daily. 10 mL 4 Active Additional Information Patient not taking.Reason: Other (PT STATES NOT TAKING), Reported on 04/08/2025 albuterol 108 (90 Base) MCG/ACT inhaler Inhale [...] Active Problems Problem Noted Date Diagnosed Date Periodontal disease 04/08/2025 Dental calculus 04/08/2025 Gingival bleeding 04/08/2025 Dental caries 04/08/2025 Tobacco use 08/04/2024 Assessment & Plan (08/14/2024 [...] AM EST): - behavioral health service provider: [facility] - currently prescribed clozapine and benztropine - continue current medications with caution due to it side effect of metabolic derangement and encouraged lifestyle modification effort - continue current treatment plan per behavioral health service provider Assessment & Plan (09/17/2023 2:05 PM EST): Pt with a Hx of multiple psych admissions Follows at [facility] with / Ankush Hartman He is [...] daily Gastroenterology consult Homeless 03/01/2016 09/11/2023 08/14/2024 Immunizations Immunization Administration Dates Next Due DTaP 12/17/2006, 8,11/13/1994,02/21,1993,1993 [...] Sign Reading Time Taken Comments Blood Pressure 126/76 04/08/2025 1:08 PM EDT Pulse 114 08/04/2024 3:04 PM EDT Temperature 37.1 C (98.7 F) 08/04/2024 3:04 PM EDT Respiratory Rate 20 08/04/2024 3:04 PM EDT Oxygen Saturation 98% 08/04/2024 3:04 PM EDT Inhaled Oxygen Concentration - - Weight 98.7 kg (217 lb 9.6 oz) 08/04/2024 3:04 P M EDT Height 172.7 cm (5' 8 ) 12/03/2023 3:56 PM EST Body Mass Index 33.09 12/03/2023 3:56 PM EST Plan of Treatment Upcoming Encounters Date Type Department Care Team (Late st Contact Info) Description 07/23/2025 2:00 PM EDT Office Visit [facility] [address] [place] [address] Jimbo, Lara [address] [place] [address] Health Maintenance Due Date Last Done Comments Disability Screening 1993 Alcohol/Substance Use Screening 2005 Family Planning (PISQ) 2008 HPV Vaccines (2 - Male 3-dose series) 10/25/2010 09/27/2010 Pneumococcal Vaccine: Pediatrics (0 to 5 Years) and At-Risk Patients (6 to 49) Years (1 of 2 - PCV) 2012 Depression Monitoring 03/17/2024 09/17/2023, 023 SDOH Screening 09/17/2024 09/17/2023 COVID-19 Vaccine (2 - season) 2025 04/14/2021 Influenza Vaccine (#1) 2025 , 11/26/2018, 03/10/2015 Dental Oral Exam 10/09/2025 04/08/2025, 01/02/2017 Dental Prophylaxis 10/09/2025 04/08/2025 Tobacco Screening 04/08/2026 04/08/2025 Dental X-Ray: Bitewings 04/09/2026 04/08/2025, 01/02 DTaP/Tdap/Td Vaccines (9 - Td or Tdap) 04/10/2026 04/10/2016, 03/10/2015, 12/17/2006, Additional history exists Dental X-Ray: Full Mouth 04/09/2028 04/08/2025, 03/0 11/2016 Lipid Panel 07/22/2029 07/22/2024 Zoster Vaccines (1 [...] Completed 12/03/2023 Hepatitis C Screening Completed 12/03/2023 Meningococcal B Vaccine Aged Out No l onger eligible based on patient's age to complete this topic RSV under 20 months Aged Out No longe r eligible based on patient's age to complete this topic Rotavirus Vaccines Aged Out No longer eligible based on patient's age to complete this topic Procedures Procedure Name Priority Date/Time Associated Diagnosis Comments Full PROPHYLAXIS - ADULT Routine 04/08/2025 1:00 PM EDT Periodontal disease Dental calculus Gingival bleeding INTRAORAL - COMPLETE SERIES OF RADIOGRAPHIC IMAGES Routine 04/08/2025 1:00 PM EDT Periodontal disease Dental calculus Gingival bleeding PERIODIC ORAL EVALUATION - ESTABLISHED PATIENT Routine 04/08/2025 1:00 PM EDT LIPID PANEL WITH REFLEX TO DIRECT LDL [...] 12:00 AM EDT) Triglycerides 498(H) <150 mg/dL [facility] Comment:Desirable Triglyceri de: less than 150 mg/dLBorderline High Triglyceride 150-199 mg/dLHigh Triglyceride: 200-499 mg/dLVery High Triglyceride: greater than or equal to 5OO mg/dL Cholesterol 191 <200 mg/dL [facility] Comment:Desirable Cholestero l: less than 200 mg/dLBorderline High Cholesterol: 200-239 mg/dLHigh Cholesterol: greater than 239 mg/dL LDL Cholesterol Calculated TNP <100 mg/dL [facility] Comment:Unable to calculate the LDL. The formula of Friedwald,Bonner, and Zamzam is only valid if the triglycerides areless than 400 mg/dl. HDL Cholesterol 32(L) >40 mg/dL [facility] Comment:Desirable HDL: great er than 40 mg/dL Note: This HDL assay may give artificially low results in patients with liver disease. Blood 07/22/2024 07/22/2024 Rand Stover MD LAB BLOOD ORDERABLES Final Resul t Performing Organization Address [facility]/ZIP Co de Phone Number [facility] [address] [place] [phone] * Hepatitis C Antibody with Reflex to HCV, RNA, Quantitative, Real-Time PCR (12/03/2023 4:49 PM EST) Hepatitis C Antibody Nonreactive Nonreactive [facility] Comment:Antibodies to HCV no t detected; does not exclude early acuteHCV infection. Blood Venous blood specimen / Unknown 12/03/2023 4:49 PM EST 12/03/2023 5:21 PM EST Rand Stover MD LAB BLOOD ORDERABLES Final Resul t Performing Organization Address [facility] Co de Phone Number [facility] [address] [place] [phone] * HIV-1/2 Antigen and Antibodies, Fourth Generation, with Reflexes (12/03/2023 4:49 PM EST) HIV AB/AG Nonreactive Nonreactive [facility] Comment:HIV-1 p24 Ag and/or HIV-1/HIV-2 Ab not detected.A test result that is nonreactive does not exclude thepossibility of exposure to or infection with HIV-1 and/orHIV-2. Nonreactive results in this assay for individualswith prior exposure to HIV-1 and/or HIV-2 may be due toantigen and antibody levels that are below the limit ofdetection of this assay.The [employer] HIV Ag/Ab Combo assay result andsupplemental assay results should be interpreted inconjunction with the patient's clinical presentation,history and other laboratory results. If the results areinconsistent with clinical evidence, additional testing issuggested to confirm the result. Blood Venous blood specimen / Unknown 12/03/2023 4:49 PM EST 12/03/2023 5:21 PM EST us Rand Stover MD LAB BLOOD ORDERABLES Final Resul t [facility] [address] [place] [address] [phone] from Last 3 Months or Most Recently Relevant to Health Maintenance Insurance [facility] STANDARD DENTAL-[facility] MEDICAID STAND ADULT Care Teams Hospital Fellow Relationship Specialty Start Date End Date Rand Stover MD [address] [place] [phone] PCP - General Family Medicine 11/04/18 Maurizio [facility] 05/09/22
--- OUTSIDE RECORDS SUMMARY | 2025-07-15 18:25 | XMS_ITS | Encounter Summary ---
Author Organization [employer] Address [address] [facility] [address] [place] [address] Care Team Providers Care Mandate Retail Service Merchandiser Name Role Phone Rand Stover MD Primary Care Provider [phone] Reason for Visit * Reason Onset Date Comments Paperwork/Forms 05/18/2024 Encounter Details Date Type Department Care Team ([facility] st Contact Info) Description 05/18/2024 Telephone [facility] MEDICINE [address] [place], [place] [phone] Rand Stover MD [address] [place], [place] [phone] Paperwork/Forms Social History Tobacco Use Types Packs/Day [...] from patient requesting the status for the PLACING JUDGE services paperwork patient stated that was faxed to the provider about 3 weeks ago documented in this encounter Plan of Treatment Upcoming Encounters Date Type Department Care Team (Late st Contact Info) Description 07/23/2025 2:00 PM EDT Office Visit [facility] ADULT DENTAL [address] [place] [address] Jimbo, Lara [address] [place] [address] documented as of this encounter Visit Diagnoses Not on filedocumented in this encounter Additional Health Concerns Assessment Noted Time PHQ-9 Depression Total Score: 10 023 1:52 PM EST documented as of this encounter Care Teams Mandate Retail Service Merchandiser Relationship Specialty Start Date End Date Rand Stover MD [address] [place] [address] PCP - General Family Medicine 11/04/18 Maurizio [facility] 05/09/22 documented as of this encounter
--- OUTSIDE RECORDS SUMMARY | 2025-07-15 18:25 | XMS_ITS | Encounter Summary ---
Author Organization [employer] Address [address] [facility] 7[address] [place] [address] Care Team Providers Care Grocery Checker Name Role Phone Rand Stover MD Primary Care Provider [phone] Encounter Details Date Type Department Care Team (Late st Contact Info) Description 03/27/2023 Abstract [facility] MEDICINE [address] [place] [address] Rand Stover MD [address] [place] [address] Social History Tobacco Use Types Packs/Day Years Used Date Smoking Tobacco: Never Assessed Sex and Gender Information Value Date Recorded Sex Assigned at Male 09/03/2022 10:19 AM EDT Legal Sex Male 10:19 AM EDT Gender Identity Male 09/03/2022 10:19 AM EDT Sexual Orientation Choose not to disclose 2021 10:19 AM EDT documented as of this encounter Plan of Treatment Upcoming Encounters Date Type Department Care Team (Late st Contact Info) Description 07/23/2025 2:00 PM EDT Office Visit [facility] ADULT DENTAL [address] [place] [address] Jimbo, Lara [address] [place] [address] documented as of this encounter Visit Diagnoses Not on filedocumented in this encounter Care Teams Grocery Checker Relationship Specialty Start Date End Date Rand Stover MD [address] [place] [address] PCP - General Family Medicine 11/04/18 Elara [facility] 05/09/22 documented as of this encounter
--- OUTSIDE RECORDS SUMMARY | 2025-07-15 18:26 | XMS_ITS | Encounter Summary ---
Author Organization [employer] Address [address] [facility] 7[address] [place] [address] Care Team Providers Care National Sales Manager Name Role Phone Rand Stover MD Primary Care Provider [phone] Encounter Details Date Type Department Care Team (Late st Contact Info) Description 12/13/2022 Abstract [facility] MEDICINE [address] [place] [address] Rand Stover MD [address] [place] [address] Social History Tobacco Use Types Packs/Day Years [...] Description 07/23/2025 2:00 PM EDT Office Visit [facility] ADULT DENTAL [address] [place] [address] Jimbo, Lara [address] [place] [address] documented as of this encounter Visit Diagnoses Not on filedocumented in this encounter Care Teams National Sales Manager Relationship Specialty Start Date End Date Rand Stover MD [address] [place] [address] PCP - General Family Medicine 11/04/18 Elara [facility] 05/09/22 documented as of this encounter
--- OUTSIDE RECORDS SUMMARY | 2025-07-15 18:26 | XMS_ITS | Encounter Summary ---
Author Organization [employer] Address [address] [facility] [address] [place] [address] Care Team Providers Care Costume Seamstress Name Role Phone Rand Stover MD Primary Care Provider [phone] Reason for Referral * Imaging (Routine) - Closed Specialty Diagnoses / Procedures Referred By Claudia torres Referred To Contact Radiology Diagnoses Metabolic dysfunction-associated steatotic liver disease (MASLD) Procedures US Abdomen Comp w elastography Rand Stover MD [address] [place] [phone] Phone: tel: fax: [address] Phone: tel: fax: Referral ID Status Reason Start Date Expiration Date Visits Re quested Visits Authorized [id number] Closed 07/02/2024 07/02/2025 1 1 Encounter Details Date Type Department Care Team (Late st Contact Info) Description 07/02/2024 Orders Only [facility] MEDICINE [address] [place], [place] [phone] Rand Stover MD [address] [place], [place] [phone] Metabolic dysfunction-associated steatotic liver disease (MASLD) (Primary [...] Description 07/23/2025 2:00 PM EDT Office Visit [facility] ADULT DENTAL [address] [place] [address] Lara Choi [address] [place] [address] Scheduled Orders Name Type Priority Associated Diagnoses [...] Blood Count 11.4(H) 4.8 - 10.8 X10*3/uL [facility] Red Blood Count 5.97(H) 4.60 - 5.80 X10*6/uL [facility] Hemoglobin 17.5 14.0 - 18.0 g/dl [facility] Hematocrit 49.5 42.0 - 52.0 % [facility] Mean Corpuscular Volume 82.9 80.0 - 98.0 fL [facility] Mean Corpuscular Hemoglobin 29.3 27.0 - 33.0 pg [facility] Mean Corpuscular HGB Conc 35.4 31.0 - 36.0 g/dl [facility] Red Cell Distribution Width 12.7 11.0 - 16.0 % [facility] Platelet Count 317 160 - 400 X10*3/uL [facility] Mean Platelet Volume 10.6 9.4 - 12.4 fL [facility] Neutrophils Percent Auto 50.2 45 - 73 % [facility] Imm Gran Pct Auto 0.4 0.0 - 0.4 % [facility] Lymphocytes Percent Auto 40.1(H) 20 - 40 % [facility] Monocytes Percent Auto 7.2 2 - 11 % [facility] Eosinophils Percent Auto 1.5 0 - 4 % [facility] Basophils Percent Auto 0.6 0 - 2 % [facility] NRBC Pct Auto 0.0 0.0 - 0.2 /100WBC [facility] Neutrophils Absolute Auto 5.7 2.0 - 8.3 x10*3/uL [facility] Imm Gran Abs Auto 0.04(H) 0.00 - 0.03 X10*3/uL [facility] Lymphocytes Absolute Auto 4.6 1.2 - 4.9 X10*3/uL [facility] Monocytes Absolute Auto 0.8 0.1 - 1.2 X10*3/uL [facility] Eosinophils Absolute Auto 0.2 0.0 - 0.4 X10*3/uL [facility] Basophils Absolute Auto 0.1 0.0 - 0.2 X10*3/uL [facility] NRBC Abs Auto 0.000 0.0 - 0.012 X10*3/uL [facility] Blood Venous blood specimen / Unknown 02/09/2025 02/09/2025 us Rand Stover MD LAB BLOOD ORDERABLES Final Resul t [facility] [address] [place] [phone] * Hepatitis A Antibody, Total (07/22/2024 12:00 AM EDT) Pathologist [facility] Hepatitis A Antibody IgG REACTIVE Nonreactive [facility] Comment:The presence of IgG anti-HAV implies past HAV infection(recent or distant) or vaccination against HAV. Blood Venous blood specimen / Unknown 07/22/2024 07/22/2024 Rand Stover MD LAB BLOOD ORDERABLES Final Resul t Performing Organization Address [facility] Co de Phone Number [facility] [address] [place] [phone] * (ABNORMAL) Lipid Panel with Reflex to Direct LDL (07/22/2024 12:00 AM EDT) [facility] Triglycerides 498(H) <150 mg/dL [facility] Comment:Desirable Triglyceri de: less than 150 mg/dLBorderline High Triglyceride 150-199 mg/dLHigh Triglyceride: 200-499 mg/dLVery High Triglyceride: greater than or equal to 5OO mg/dL Cholesterol 191 <200 mg/dL [facility] Comment:Desirable Cholestero l: less than 200 mg/dLBorderline High Cholesterol: 200-239 mg/dLHigh Cholesterol: greater than 239 mg/dL LDL Cholesterol Calculated TNP <100 mg/dL [facility] Comment:Unable to calculate the LDL. The formula of Friedwald,Bonner, and Zamzam is only valid if the triglycerides areless than 400 mg/dl. HDL Cholesterol 32(L) >40 mg/dL [facility] Comment:Desirable HDL: great er than 40 mg/dL Note: This HDL assay may give artificially low results in patients with liver disease. Blood 07/22/2024 07/22/2024 Rand Stover MD LAB BLOOD ORDERABLES Final Resul t Performing Organization Address [facility] Co de Phone Number [facility] [address] [place] [phone] * (ABNORMAL) Comprehensive Metabolic Panel (07/22/2024 12:00 AM EDT) Sodium 139 135 - 145 mmol/L [facility] Potassium 3.7 3.3 - 5.1 mmol/L [facility] Comment:Slight Hemolysis Chloride 108 96 - 108 mmol/L [facility] Carbon Dioxide 21(L) 22 - 29 mmol/L [facility] Anion Gap 14 12 - 20 [facility] Urea Nitrogen (BUN) 8(L) 9 - 16 mg/dL [facility] Creatinine, Serum 0.74 0.5 - 1.4 mg/dL [facility] Estimated Glomerular Filt Rate >60 [facility] Comment:NOTE: For -Am erican individuals, multiply the result by 1.210.Chronic Kidney Disease: Estimated GFR < 60 mL/min/1.41z2Rgmwyq Kidney Disease: Estimated GFR < 15 mL/min/1.73m2 Glucose 125(H) 60 - 115 mg/dL [facility] Calcium 9.6 8.4 - 10.2 mg/dL [facility] Bilirubin, Total 0.4 0.0 - 1.0 mg/dL [facility] Aspartate Amino Transferase 34 5 - 37 U/L [facility] Comment:Slight Hemolysis Alanine Aminotransferase 56(H) 0 - 40 U/L [facility] Total Protein 7.8 6.5 - 8.0 g/dL [facility] Albumin Level 4.4 3.5 - 5.0 g/dL [facility] Alkaline Phosphatase 61 39 - 117 U/L [facility] Blood Venous blood specimen / Unknown 07/22/2024 07/22/2024 us Rand Stover MD LAB BLOOD ORDERABLES Final Resul t [facility] [address] [place] [phone] documented in this encounter Visit Diagnoses Diagnosis Metabolic dysfunction-associated steatotic liver disease (MASLD)- Primary Immunity status testing Antibody response examination documented in this encounter Additional Health Concerns Assessment Noted Time PHQ-9 Depression Total Score: 10 09/17/2 023 1:52 PM EST documented as of this encounter Care Teams Costume Seamstress Relationship Specialty Start Date End Date Rand Stover MD [address] [place] [address] PCP - General Family Medicine 11/04/18 Maurizio [facility] 05/09/22 documented as of this encounter
== END 2025-07-15 14:59 | disposition home or self-care (01) ==
LOC: HO.LABR 14:58
PROVIDERS: Visit Provider Psychiatry & Neurology Psychiatry
DX: Z79.899 Other long term (current) drug therapy (principal)
CPT/HCPCS: 36415; 85025

== ENCOUNTER 2025-08-13 14:53 | Outpatient (REF) | payer MEDICARE, SELFPAY | END 2025-08-13 14:54 | disposition home or self-care (01) | LOC: HO.LABR 14:53 | PROVIDERS: PCP Family Medicine; Visit Provider Psychiatry & Neurology Psychiatry | DX: Z79.899 Other long term (current) drug therapy (principal) | CPT/HCPCS: 36415 ==

== ENCOUNTER 2025-09-08 12:46 | Outpatient (REF) | payer MEDICARE, SELFPAY ==
[2025-09-08 13:59] LABS: Hematocrit 43.5 % (42.0-52.0); Hemoglobin 15.2 g/dl (14.0-18.0); Imm Gran Abs Auto 0.02 X10*3/uL (0.00-0.03); Imm Gran Pct Auto 0.3 % (0.0-0.4); Lymphocytes Absolute Auto 2.1 X10*3/uL (1.2-4.9); MANUAL DIFF FLAG SCAN; Mean Corpuscular HGB Conc 34.9 g/dl (31.0-36.0); Mean Corpuscular Hemoglobin 29.1 pg (27.0-33.0); Mean Corpuscular Volume 83.3 fL (80.0-98.0); NRBC Abs Auto 0.000 X10*3/uL (0.0-0.012); NRBC Pct Auto 0.0 /100WBC (0.0-0.2); PLT CLUMP 1; Red Blood Count 5.22 X10*6/uL (4.60-5.80); SCAN SMEAR FLAG 1
[2025-09-08 14:22] LABS: Platelet Count 230 X10*3/uL (160-400); White Blood Count 6.0 X10*3/uL (4.8-10.8)
== END 2025-09-08 12:47 | disposition home or self-care (01) ==
LOC: HO.LAB 12:46
DX: Z79.899 Other long term (current) drug therapy (principal)
CPT/HCPCS: 36415; 85025

== ENCOUNTER 2025-10-13 15:18 | Outpatient (REF) | payer MEDICARE, SELFPAY | END 2025-10-13 15:19 | LOC: HO.LABR 15:18 | PROVIDERS: PCP Family Medicine | DX: Z79.899 Other long term (current) drug therapy (principal) | CPT/HCPCS: 36415 ==